=== PATIENT | male | born 1970 | race Caucasian/White ===

== ENCOUNTER 2016-05-18 00:42 | Emergency (ER) | payer OTHER ==
[2016-05-18 00:46] VITALS: BP 196/106; PULSE 77; RESP 18; TEMP 97.7
[2016-05-18] MEDS ORDERED: SODIUM CHLORIDE 0.9% 1,000 ML IV STA (00:55)
[2016-05-18] MEDS ORDERED: KETOROLAC 30 MG/ML 1 ML VIAL IVP STA (00:56)
--- NOTE | 2016-05-18 01:00 | ED ---
Abdominal Pain HPI - General Chief Complaint: Abdominal Pain Stated Complaint: Back/Groin Pain Time Seen by Provider: 05/18/16 00:51 Source: patient, RN notes reviewed Mode of arrival: wheelchair Limitations: no limitations - History of Present Illness Initial Comments: 45-year-old male presents emergency Department chief complaint low back pain, groin pain. Patient states that this started one day ago. He denies any trauma. He states that rest is make it feel better and worse with movement Patient states that he primarily has left lower back pain, left leg pain. Patient states is his upper groin, abdominal region. Patient denies any diarrhea constipation. Denies any nausea vomiting. Patient states she does have some dysuria and difficulty urinating. He states that he is unsure be has a history of kidney stones. He has not taken anything for the pain. Dates she' s had no abdominal surgeries. He denies any trauma to his back. Denies any bowel bladder incontinence or retention. - Related Data Home Medications Medication Instructions Recorded Confirmed Amitriptyline HCl [Elavil] 50 mg PO HS 11/19/13 05/18/16 Lisinopril [Zestril] 40 mg PO DAILY 11/19/13 05/18/16 Gabapentin [Neurontin] 600 mg PO QID 10/05/15 05/18/16 Furosemide [Lasix] 20 mg PO DAILY PRN 01/17/16 05/18/16 Previous Rx's Medication Instructions Recorded traMADol HCl [Ultram] 50 mg PO Q6H PRN #20 tab 05/18/16 Allergies Allergy/AdvReac Type Severity Reaction Status Date / Time ibuprofen [From Motrin] AdvReac Nausea & Verified 05/18/16 00:46 Vomiting simvastatin [From Zocor] AdvReac Dizziness Verified 05/18/16 00:46 Review of Systems ROS Statement: Those systems with pertinent positive or pertinent negative responses have been documented in the HPI. ROS Other: All systems not noted in ROS Statement are negative. Past Medical History Past Medical History: Atrial Fibrillation, Hyperlipidemia, Hypertension Additional Past Medical History / Comment(s): neuropathy, MIGRAINES, sciatica, hernia, back pain, sleep disorder, kidney stones History of Any Multi-Drug Resistant Organisms: None Reported Past Surgical History: Orthopedic Surgery Additional Past Surgical History / Comment(s): shoulder sx x2 rotator cuff repair Past Anesthesia/Blood Transfusion Reactions: No Reported Reaction Past Psychological History: No Psychological Hx Reported Smoking Status: Current every day smoker Past Alcohol Use History: None Reported Additional Past Alcohol Use History / Comment(s): started smoking at age 15- smokes 1 ppd Past Drug Use History: Marijuana - Past Family History Father Family Medical History: Myocardial Infarction ([place]) Additional Family Medical History / Comment(s): mi at age 35, still living Mother Family Medical History: Myocardial Infarction ([place] Additional Family Medical History / Comment(s): 2-3 mi, still living General Exam Limitations: no limitations General appearance: alert, in no apparent distress ENT exam: Present: mucous membranes moist Neck exam: Present: normal inspection, full ROM. Absent: tenderness, meningismus, lymphadenopathy Respiratory exam: Present: normal lung sounds bilaterally. Absent: respiratory distress, wheezes, rales, rhonchi, stridor Cardiovascular Exam: Present: regular rate, normal rhythm, normal heart sounds. Absent: systolic murmur, diastolic murmur, rubs, gallop, clicks GI/Abdominal exam: Present: soft, tenderness ([id number] lower abdominal tenderness), normal bowel sounds. Absent: distended, guarding, rebound, rigid Back exam: Present: full ROM, tenderness, CVA tenderness (L), paraspinal tenderness. Absent: CVA tenderness (R), vertebral tenderness Neurological exam: Present: alert, oriented X3, CN II-XII intact, reflexes normal. Absent: motor sensory deficit Skin exam: Present: warm, dry, intact, normal color. Absent: rash Course Vital Signs 05/18/16 00:44 Temperature 97.7 F Pulse Rate 77 Respiratory 18 Rate Blood Pressure 196/106 O2 Sat by Pulse 100 Oximetry Medical Decision Making - Medical Decision Making 45-year-old male presented for back pain, problems urinating. Patient lab work , x-ray within normal limits. Patient has urinated without difficulty. There is no signs of urinary tract infection. We discussed about possible prostate enlargement in that he needs to follow-up with his primary care physician for further testing. Patient's back pain is most likely mechanical in nature. Patient we discharged with pain medication and follow-up. Return parameters were discussed. He has no red flag symptoms. - Lab Data Result diagrams: 05/18/16 01:20 05/18/16 01:20 Lab Results 05/18/16 05/18/16 05/18/16 Range/Units 01:20 01:20 01:30 WBC 9.0 (3.8-10.6) k/uL RBC 5.00 (4.30-5.90) m/uL Hgb 15.5 (13.0-17.5) gm/dL Hct 45.0 (39.0-53.0) % MCV 90.2 (80.0-100.0) fL MCH 31.0 (25.0-35.0) pg MCHC 34.4 (31.0-37.0) g/dL RDW 13.2 (11.5-15.5) % Plt Count 185 (150-450) k/uL Neutrophils % 76 % Lymphocytes % 16 % Monocytes % 6 % Eosinophils % 1 % Basophils % 1 % Neutrophils # 6.8 (1.3-7.7) k/uL Lymphocytes # 1.4 (1.0-4.8) k/uL Monocytes # 0.5 (0-1.0) k/uL Eosinophils # 0.1 (0-0.7) k/uL Basophils # 0.0 (0-0.2) k/uL Sodium 141 (137-145) mmol/L Potassium 3.9 (3.5-5.1) mmol/L Chloride 106 (98-107) mmol/L Carbon Dioxide 24 (22-30) mmol/L Anion Gap 11 mmol/L BUN 6 L (9-20) mg/dL Creatinine 0.60 L (0.66-1.25) mg/dL Est GFR (MDRD) Af Amer >60 (>60 ml/min/1.73 sqM) Est GFR (MDRD) Non-Af >60 (>60 ml/min/1.73 sqM) Glucose 106 H (74-99) mg/dL Calcium 9.6 (8.4-10.2) mg/dL Total Bilirubin 0.7 (0.2-1.3) mg/dL AST 31 (17-59) U/L ALT 40 (21-72) U/L Alkaline Phosphatase 72 (38-126) U/L Total Protein 7.1 (6.3-8.2) g/dL Albumin 4.4 (3.5-5.0) g/dL Amylase 39 (30-110) U/L Lipase 45 (23-300) U/L Urine Color Yellow Urine Appearance Cloudy (Clear) Urine pH 7.5 (5.0-8.0) Ur Specific Nice 1.013 (1.001-1.035) Urine Protein Negative (Negative) Urine Glucose (UA) Negative (Negative) Urine Ketones Negative (Negative) Urine Blood Negative (Negative) Urine Nitrate Negative (Negative) Urine Bilirubin Negative (Negative) Urine Urobilinogen <2.0 (<2.0) mg/dL Ur Leukocyte Esterase Negative (Negative) Urine WBC 2 (0-5) /hpf Ur Squamous Epith Cells <1 (0-4) /hpf Amorphous Sediment Few H (None) /hpf Urine Mucus Occasional H (None) /hpf Disposition Clinical Impression: Back pain Disposition: HOME SELF-CARE Condition: Stable Instructions: Back Pain (ED) Additional Instructions: Please return to the Emergency Department if symptoms worsen or any other concerns. Prescriptions: traMADol HCl [Ultram] 50 mg PO Q6H PRN #20 tab PRN Reason: Pain Time of Disposition: 02:04
[2016-05-18 01:33] LABS: Basophils % (A) 1 %; CH 32.3; Eosinophils # (A) 0.1 k/uL (0-0.7); Eosinophils % (A) 1 %; HDW 2.97; HGB 15.5 gm/dL (13.0-17.5); Luc # (Auto) 0.09; Luc % (Auto) 1; Lymphocytes # (A) 1.4 k/uL (1.0-4.8); Lymphocytes % (A) 16 %; MCHC 34.4 g/dL (31.0-37.0); MCV 90.2 fL (80.0-100.0); Mean Platelet Volume 8.7; Monocytes # (A) 0.5 k/uL (0-1.0); Monocytes % (A) 6 %; Neutrophils # (A) 6.8 k/uL (1.3-7.7); Neutrophils % (A) 76 %; RDW 13.2 % (11.5-15.5); WBC (Perox) 9.46
[2016-05-18 01:43] LABS: ALT 40 U/L (21-72); AST 31 U/L (17-59); Alkaline Phosphatase 72 U/L (38-126); Amylase 39 U/L (30-110); Anion Gap 11 mmol/L; Blood Urea Nitrogen 6 mg/dL (9-20); Calcium 9.6 mg/dL (8.4-10.2); Carbon Dioxide 24 mmol/L (22-30); Chloride 106 mmol/L (98-107); Glucose 106 mg/dL (74-99); Non-African American GFR(MDRD) >60 (>60 ml/min/1.73 sqM); Sodium 141 mmol/L (137-145); Total Bilirubin 0.7 mg/dL (0.2-1.3); Total Protein 7.1 g/dL (6.3-8.2)
[2016-05-18 01:47] LABS: Potassium 3.9 mmol/L (3.5-5.1)
--- NOTE | 2016-05-18 01:48 | XR ---
EXAMINATION TYPE: XR KUB DATE OF EXAM: 05/18/2016 1:39 AM COMPARISON: 10/05/2015 HISTORY: Kidney stones. Flank pain TECHNIQUE: 2 views FINDINGS: Bowel gas pattern is normal. There is no sign of intestinal obstruction or pneumoperitoneum . Fecal pattern is normal. There is no sign of a mass. Lung bases are clear. IMPRESSION: Nonacute abdomen. No change.
[2016-05-18 01:56] LABS: Amorphous Sediment,Urine Few /hpf; Appearance,Urine Cloudy (Clear); Bilirubin,Urine Negative (Negative); Glucose,Urine (UA) Negative (Negative); Ketones,Urine Negative (Negative); Leukocyte Esterase,Urine Negative (Negative); Mucus,Urine Occasional /hpf; Nitrite,Urine Negative (Negative); PH, Urine 7.5 (5.0-8.0); Particle Count 31877; Protein,Urine Negative (Negative); Specific Gravity,Urine 1.013 (1.001-1.035); Squamous Epithelial Cell,Urine <1 /hpf (0-4); UA Billing (MACRO vs. MICRO) MICRO; Urobilinogen,Urine <2.0 mg/dL (<2.0); WBC,Urine 2 /hpf (0-5)
== END 2016-05-18 02:12 | disposition home or self-care (01) ==
LOC: EC 00:42
DX: M54.5 Low back pain (principal); R10.30 Lower abdominal pain, unspecified; R30.0 Dysuria; I10 Essential (primary) hypertension; G43.909 Migraine, unspecified, not intractable, without status migrainosus; G62.9 Polyneuropathy, unspecified; F17.200 Nicotine dependence, unspecified, uncomplicated; Z79.899 Other long term (current) drug therapy
CPT/HCPCS: 36415; 80053; 82150; 83690; 85025; 81001; 74000; 99284; 96374; J1885

== ENCOUNTER 2016-12-25 23:27 | Emergency (ER) | payer OTHER ==
[2016-12-25 23:46] VITALS: RESP 16
--- NOTE | 2016-12-25 23:49 | ED ---
General Adult HPI - General Chief complaint: Fall Stated complaint: L Knee Pain Time Seen by Provider: 12/25/16 23:40 Source: patient, RN notes reviewed Mode of arrival: wheelchair Limitations: physical limitation - History of Present Illness Initial comments: Patient 46-year-old male who presents emergency room today with a chief complaint of an injury to the left knee that occurred 2 days ago. Does admit that he tripped going up the stairs landing on the left. Does admit to some pain to the anterior aspect. He denies any other complaints or injuries. States she's tried Tylenol Motrin with little relief the symptoms. States worse with movements. Patient denies any recent fever, chills, shortness of breath, chest pain, back pain, abdominal pain, nausea or vomiting, numbness or tingling, dysuria or hematuria, constipation or diarrhea, headaches or visual changes, or any other complaints. - Related Data Home Medications Medication Instructions Recorded Confirmed Amitriptyline HCl [Elavil] 50 mg PO HS 11/19/13 05/18/16 Lisinopril [Zestril] 40 mg PO DAILY 11/19/13 05/18/16 Gabapentin [Neurontin] 600 mg PO QID 10/05/15 05/18/16 Furosemide [Lasix] 20 mg PO DAILY PRN 01/17/16 05/18/16 Previous Rx's Medication Instructions Recorded traMADol HCl [Ultram] 50 mg PO Q6H PRN #20 tab 05/18/16 Naproxen 500 mg PO BID #20 tablet 12/26/16 Allergies Allergy/AdvReac Type Severity Reaction Status Date / Time ibuprofen [From Motrin] AdvReac Nausea & Verified 05/18/16 00:46 Vomiting simvastatin [From Zocor] AdvReac Dizziness Verified 05/18/16 00:46 Review of Systems ROS Statement: Those systems with pertinent positive or pertinent negative responses have been documented in the HPI. ROS Other: All systems not noted in ROS Statement are negative. Past Medical History Past Medical History: Atrial Fibrillation, Hyperlipidemia, Hypertension Additional Past Medical History / Comment(s): neuropathy, MIGRAINES, sciatica, hernia, back pain, sleep disorder, kidney stones History of Any Multi-Drug Resistant Organisms: None Reported Past Surgical History: Orthopedic Surgery Additional Past Surgical History / Comment(s): shoulder sx x2 rotator cuff repair Past Anesthesia/Blood Transfusion Reactions: No Reported Reaction Past Psychological History: No Psychological Hx Reported Smoking Status: Current every day smoker Past Alcohol Use History: None Reported Past Drug Use History: None Reported - Past Family History Father Family Medical History: Myocardial Infarction ([place]) Additional Family Medical History / Comment(s): mi at age 35, still living Mother Family Medical History: Myocardial Infarction ([place]) Additional Family Medical History / Comment(s): 2-3 mi, still living General Exam - General Exam Comments Initial Comments: General: The patient is awake and alert, in no distress, and does not appear acutely ill. Neck: The neck is supple, there is no tenderness or JVD. Cardiovascular: There is a regular rate and rhythm. No murmur, rub or gallop is appreciated. Respiratory: Lungs are clear to auscultation, respirations are non-labored, breath sounds are equal. No wheezes, stridor, rales, or rhonchi. Musculoskeletal: Normal appearance of the left knee no obvious deformity. Shows good range of motion both flexion and extension. Sensations are intact pulses equal bilaterally 2+. Strength is 5/5. Tender over the patella and lateral aspect. Mild tenderness with a varus stress. Negative valgus. Neurological: A&O x 3. CN II-XII intact, There are no obvious motor or sensory deficits. Coordination appears grossly intact. Speech is normal. Skin: Skin is warm and dry and no rashes or lesions are noted. Psychiatric: Normal mood and affect. Limitations: physical limitation Course Vital Signs 12/25/16 23:38 Temperature 98.4 F Pulse Rate 76 Respiratory 16 Rate Blood Pressure 158/103 O2 Sat by Pulse 96 Oximetry Medical Decision Making - Medical Decision Making X-rays reviewed negative for any acute fracture dislocation. Results were discussed with patient. He does admit he is been using Motrin at home even though is listed as an ALLERGY. States does give him some acid reflux. Patient will given Toradol shot here in the emergency room states had this before. Patient will be discharged home with a knee immobilizer and advised follow-up with orthopedics for further evaluation. Patient will be given a prescription for naproxen patient advised return for any other concerns. Disposition Clinical Impression: Knee injury Disposition: HOME SELF-CARE Condition: Good Instructions: Knee Pain (ED) Additional Instructions: Please use knee immobilizer when up and moving around. Please do not sleep with it on. Please use crutches with weightbearing as tolerated. Please follow -up with orthopedics over the next 3-5 days. Please continue to ice elevate and use pain medication as prescribed. Please return for any other concerns. Prescriptions: Naproxen 500 mg PO BID #20 tablet Referrals: Raquel Joyce MD [Primary Care Provider] - 1-2 days Chris Melendez MD [STAFF PHYSICIAN] - 1-2 days Time of Disposition: 00:47
--- NOTE | 2016-12-26 00:40 | XR ---
EXAM: XR Left Knee, 3 views CLINICAL HISTORY: Pain TECHNIQUE: Three views of the left knee. COMPARISON: No relevant prior studies available. FINDINGS: Bones/joints: Unremarkable. No acute fracture. No dislocation. Soft tissues: Mild soft tissue edema noted about the medial knee, which may be posttraumatic. IMPRESSION: Mild soft tissue edema noted about the medial knee, which may be posttraumatic. Clinical correlation is advised.
[2016-12-26] MEDS ORDERED: KETOROLAC 60 MG/2 ML VIAL IM STA (00:44)
[2016-12-26 01:32] VITALS: BP 118/60; PULSE 66; TEMP 98
== END 2016-12-26 01:23 | disposition home or self-care (01) ==
LOC: EC 23:27
DX: S89.92XA Unspecified injury of left lower leg, initial encounter (principal); M25.562 Pain in left knee; I10 Essential (primary) hypertension; I48.91 Unspecified atrial fibrillation; G62.9 Polyneuropathy, unspecified; F17.200 Nicotine dependence, unspecified, uncomplicated; Z79.899 Other long term (current) drug therapy; Z88.6 Allergy status to analgesic agent; Z88.8 Allergy status to other drugs, medicaments and biological substances; W01.0XXA Fall on same level from slipping, tripping and stumbling without subsequent striking against object, initial encounter; Y93.89 Activity, other specified
CPT/HCPCS: 73564; 99283; 96372; L1830; J1885

== ENCOUNTER 2017-06-11 16:57 | Emergency (ER) | payer OTHER ==
[2017-06-11 17:46] VITALS: BP 185/99; PULSE 83; RESP 18; TEMP 98.5
--- NOTE | 2017-06-11 18:15 | ED ---
General Adult HPI - General Chief complaint: Extremity Problem,Nontraumatic Stated complaint: Infected Toe, swelling and bleeding Time Seen by Provider: 06/11/17 18:02 Source: patient, RN notes reviewed Mode of arrival: ambulatory Limitations: no limitations - History of Present Illness Initial comments: 47-year-old male presents emergency department with a chief complaint of right big toe pain. Patient states that this is not last few days. He states he was doing a lot of pus and drainage cannot is feeling better but still noticed the redness that he should be seen. There's been no fever chills. He is able to family. He admits to a history of these in the past. He denies any cough cold runny nose. 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 He states this happens often him. Patient states is not currently having any other symptoms at this time. Patient denies any recent fever, chills, shortness of breath, chest pain, back pain, abdominal pain, nausea vomiting, numbness or tingling, dysuria or hematuria, constipation or diarrhea, headaches or visual changes, or any other current symptoms. - Related Data Home Medications Medication Instructions Recorded Confirmed Amitriptyline HCl [Elavil] 50 mg PO HS 11/19/13 05/18/16 Lisinopril [Zestril] 40 mg PO DAILY 11/19/13 05/18/16 Gabapentin [Neurontin] 600 mg PO QID 10/05/15 05/18/16 Furosemide [Lasix] 20 mg PO DAILY PRN 01/17/16 05/18/16 Previous Rx's Medication Instructions Recorded traMADol HCl [Ultram] 50 mg PO Q6H PRN #20 tab 05/18/16 Naproxen 500 mg PO BID #20 tablet 12/26/16 Cephalexin [Keflex] 500 mg PO Q6HR #40 cap 06/11/17 Sulfamethox-Tmp 800-160Mg [Bactrim 2 each PO Q12HR #56 tab 06/11/17 DS 800-160 mg] Allergies Allergy/AdvReac Type Severity Reaction Status Date / Time ibuprofen [From Motrin] AdvReac Nausea & Verified 06/11/17 17:46 Vomiting simvastatin [From Zocor] AdvReac Dizziness Verified 06/11/17 17:46 Review of Systems ROS Statement: Those systems with pertinent positive or pertinent negative responses have been documented in the HPI. ROS Other: All systems not noted in ROS Statement are negative. Past Medical History Past Medical History: Atrial Fibrillation, Hyperlipidemia, Hypertension Additional Past Medical History / Comment(s): neuropathy, MIGRAINES, sciatica, hernia, back pain, sleep disorder, kidney stones History of Any Multi-Drug Resistant Organisms: None Reported Past Surgical History: Orthopedic Surgery Additional Past Surgical History / Comment(s): shoulder sx x2 rotator cuff repair Past Anesthesia/Blood Transfusion Reactions: No Reported Reaction Past Psychological History: No Psychological Hx Reported Smoking Status: Current every day smoker Past Alcohol Use History: None Reported Past Drug Use History: Marijuana - Past Family History Father Family Medical History: Myocardial Infarction ([place]) Additional Family Medical History / Comment(s): mi at age 35, still living Mother Family Medical History: Myocardial Infarction ([place]) Additional Family Medical History / Comment(s): 2-3 mi, still living General Exam - General Exam Comments Initial Comments: General: The patient is awake and alert, in no distress, and does not appear acutely ill. Neck: The neck is supple, there is no tenderness or JVD. Cardiovascular: There is a regular rate and rhythm. No murmur, rub or gallop is appreciated. Respiratory: Lungs are clear to auscultation, respirations are non-labored, breath sounds are equal. No wheezes, stridor, rales, or rhonchi. Musculoskeletal: Sensation intact with 2+ pulses throughout the right lower extremity. Fund motion of right ankle and right foot. Patient appears to have an erythematous swollen right big toe. Does appear that his already been drained prior to arrival. We did discuss return parameters and follow-up and all questions. Patient stated the Brendan is given plan. He'll be discharged. Neurological: CN II-XII intact, There are no obvious motor or sensory deficits. Coordination appears grossly intact. Speech is normal. Skin: Skin is warm and dry and no rashes or lesions are noted. Psychiatric: Normal mood and affect. Limitations: no limitations Course Vital Signs 06/11/17 17:44 Temperature 98.5 F Pulse Rate 83 Respiratory 18 Rate Blood Pressure 185/99 O2 Sat by Pulse 100 Oximetry Medical Decision Making - Medical Decision Making 47-year-old male presents for what appears the right toe paronchyia. We did discuss halfway. We discussed follow-up return parameters all questions. Patient stated he understood he is plan. He will be discharged. Disposition Clinical Impression: Paronychia of toe of right foot Disposition: HOME SELF-CARE Condition: Stable Instructions: Paronychia (ED) Additional Instructions: Please use medication as discussed. Please follow up with family doctor if symptoms have not improved over the next two days. Please return to the emergency room if your symptoms increase or worsen or for any other concerns. Prescriptions: Cephalexin [Keflex] 500 mg PO Q6HR #40 cap Sulfamethox-Tmp 800-160Mg [Bactrim DS 800-160 mg] 2 each PO Q12HR #56 tab Referrals: Farhana Santo MD [REFERRING] - 1-2 days Time of Disposition: 18:14
== END 2017-06-11 18:19 | disposition home or self-care (01) ==
LOC: EC 16:57
DX: L03.031 Cellulitis of right toe (principal); I10 Essential (primary) hypertension; G62.9 Polyneuropathy, unspecified; F17.200 Nicotine dependence, unspecified, uncomplicated; Z79.899 Other long term (current) drug therapy; Z88.6 Allergy status to analgesic agent; Z88.8 Allergy status to other drugs, medicaments and biological substances
CPT/HCPCS: 99283

== ENCOUNTER 2017-08-25 15:29 | Observation (INO) | payer OTHER ==
[2017-08-25] MEDS ORDERED: SODIUM CHLORIDE 0.9% 1,000 ML IV STA (15:50)
[2017-08-25] MEDS ORDERED: MORPHINE SULFATE 4MG/4ML SYRG IV STA (15:50)
--- NOTE | 2017-08-25 15:53 | ED ---
General Adult HPI - General Chief complaint: Chest Pain Stated complaint: Back pain Time Seen by Provider: 08/25/17 15:46 Source: patient, family, RN notes reviewed Mode of arrival: ambulatory Limitations: no limitations - History of Present Illness Initial comments: Patient is a pleasant 47-year-old male presenting to the emergency Department with complaints of upper back and chest discomfort. Onset of symptoms was when he awoke this morning. Patient does have a history of back discomfort in the same region previously several times however it is not a common thing for him. Patient states it is never gone to the chest before. Discomfort feels stabbing. Discomfort of the back is constant however only goes to the chest when symptoms worsened. Symptoms are positional. Patient does not feel short of breath. No fever. No incontinence or retention of bowel or bladder. Patient does have a history of chronic lower back pain. - Related Data Home Medications Medication Instructions Recorded Confirmed Aspirin EC [Ecotrin Low Dose] 81 mg PO DAILY 08/25/17 08/25/17 Gabapentin [Neurontin] 600 mg PO TID 08/25/17 08/25/17 Lisinopril [Zestril] 20 mg PO DAILY 08/25/17 08/25/17 amLODIPine [Norvasc] 5 mg PO DAILY 08/25/17 08/25/17 Allergies Allergy/AdvReac Type Severity Reaction Status Date / Time ibuprofen [From Motrin] AdvReac Nausea & Verified 08/25/17 16:40 Vomiting simvastatin [From Zocor] AdvReac Dizziness Verified 08/25/17 16:40 Review of Systems ROS Statement: Those systems with pertinent positive or pertinent negative responses have been documented in the HPI. ROS Other: All systems not noted in ROS Statement are negative. Constitutional: Denies: fever Eyes: Denies: eye pain ENT: Denies: ear pain Respiratory: Denies: cough, dyspnea Cardiovascular: Reports: chest pain Endocrine: Denies: fatigue Gastrointestinal: Denies: abdominal pain Genitourinary: Denies: dysuria Musculoskeletal: Reports: back pain Skin: Denies: rash Neurological: Denies: weakness Past Medical History Past Medical History: Atrial Fibrillation, Hyperlipidemia, Hypertension Additional Past Medical History / Comment(s): neuropathy, MIGRAINES, sciatica, hernia, back pain, sleep disorder, kidney stones History of Any Multi-Drug Resistant Organisms: None Reported Past Surgical History: Orthopedic Surgery Additional Past Surgical History / Comment(s): shoulder sx x2 rotator cuff repair Past Anesthesia/Blood Transfusion Reactions: No Reported Reaction Past Psychological History: No Psychological Hx Reported Smoking Status: Current every day smoker Past Alcohol Use History: None Reported Past Drug Use History: Marijuana - Past Family History Father Family Medical History: Myocardial Infarction ([place]) Additional Family Medical History / Comment(s): mi at age 35, still living Mother Family Medical History: Myocardial Infarction ([place]) Additional Family Medical History / Comment(s): 2-3 mi, still living General Exam Limitations: no limitations General appearance: alert, in no apparent distress Head exam: Present: atraumatic Eye exam: Present: normal appearance, PERRL ENT exam: Present: normal oropharynx Neck exam: Present: normal inspection Respiratory exam: Present: normal lung sounds bilaterally. Absent: chest wall tenderness Cardiovascular Exam: Present: regular rate, normal rhythm Expanded Peripheral pulses: 2+: Radial (R), Radial (L), Posterior Tibialis (R), Posterior Tibialis (L) GI/Abdominal exam: Present: soft. Absent: tenderness Extremities exam: Present: normal inspection. Absent: pedal edema, calf tenderness Back exam: Present: tenderness (Patient does have tenderness in the mid thoracic region approximately T6 through T9. No specific vertebral tenderness.) Neurological exam: Present: alert. Absent: motor sensory deficit Psychiatric exam: Present: normal affect, normal mood Skin exam: Present: normal color Course Vital Signs 08/25/17 08/25/17 15:32 16:40 Temperature 98 F Pulse Rate 78 88 Respiratory 18 16 Rate Blood Pressure 186/116 159/106 O2 Sat by Pulse 99 100 Oximetry EKG Findings - EKG Comments: EKG Findings:: Normal sinus rhythm 98. LA 154. QRS 84. QT 356. QTc 454. Normal axis. LVH criteria. No acute ST change. Medical Decision Making - Medical Decision Making Patient reevaluated and only somewhat improved. Case discussed with Dr. pennington , who will admit for Dr. Richardson. He is aware of computed tomography scan been ordered. - Lab Data Result diagrams: 08/25/17 16:00 08/25/17 16:00 Lab Results 08/25/17 08/25/17 08/25/17 Range/Units 16:00 16:00 16:00 WBC 6.8 (3.8-10.6) k/uL RBC 5.15 (4.30-5.90) m/uL Hgb 15.8 (13.0-17.5) gm/dL Hct 44.0 (39.0-53.0) % MCV 85.3 (80.0-100.0) fL MCH 30.7 (25.0-35.0) pg MCHC 36.0 (31.0-37.0) g/dL RDW 13.3 (11.5-15.5) % Plt Count 237 (150-450) k/uL Neutrophils % 66 % Lymphocytes % 22 % Monocytes % 7 % Eosinophils % 3 % Basophils % 0 % Neutrophils # 4.5 (1.3-7.7) k/uL Lymphocytes # 1.5 (1.0-4.8) k/uL Monocytes # 0.5 (0-1.0) k/uL Eosinophils # 0.2 (0-0.7) k/uL Basophils # 0.0 (0-0.2) k/uL PT (9.0-12.0) sec INR (<1.2) APTT (22.0-30.0) sec D-Dimer (<0.60) mg/L FEU Sodium 142 (137-145) mmol/L Potassium 4.1 (3.5-5.1) mmol/L Chloride 107 (98-107) mmol/L Carbon Dioxide 22 (22-30) mmol/L Anion Gap 13 mmol/L BUN 11 (9-20) mg/dL Creatinine 0.63 L (0.66-1.25) mg/dL Est GFR (CKD-EPI)AfAm >90 (>60 ml/min/1.73 sqM) Est GFR (CKD-EPI)NonAf >90 (>60 ml/min/1.73 sqM) Glucose 94 (74-99) mg/dL Calcium 9.4 (8.4-10.2) mg/dL Magnesium 1.9 (1.6-2.3) mg/dL Total Bilirubin 0.8 (0.2-1.3) mg/dL AST 24 (17-59) U/L ALT 32 (21-72) U/L Alkaline Phosphatase 68 (38-126) U/L Total Creatine Kinase 85 (55-170) U/L CK-MB (CK-2) 0.6 (0.0-2.4) ng/mL CK-MB (CK-2) Rel Index 0.7 Troponin I <0.012 (0.000-0.034) ng/mL Total Protein 7.0 (6.3-8.2) g/dL Albumin 4.3 (3.5-5.0) g/dL 08/25/17 Range/Units 16:00 WBC (3.8-10.6) k/uL RBC (4.30-5.90) m/uL Hgb (13.0-17.5) gm/dL Hct (39.0-53.0) % MCV (80.0-100.0) fL MCH (25.0-35.0) pg MCHC (31.0-37.0) g/dL RDW (11.5-15.5) % Plt Count (150-450) k/uL Neutrophils % % Lymphocytes % % Monocytes % % Eosinophils % % Basophils % % Neutrophils # (1.3-7.7) k/uL Lymphocytes # (1.0-4.8) k/uL Monocytes # (0-1.0) k/uL Eosinophils # (0-0.7) k/uL Basophils # (0-0.2) k/uL PT 10.3 (9.0-12.0) sec INR 1.1 (<1.2) APTT 23.8 (22.0-30.0) sec D-Dimer 0.17 (<0.60) mg/L FEU Sodium (137-145) mmol/L Potassium (3.5-5.1) mmol/L Chloride (98-107) mmol/L Carbon Dioxide (22-30) mmol/L Anion Gap mmol/L BUN (9-20) mg/dL Creatinine (0.66-1.25) mg/dL Est GFR (CKD-EPI)AfAm (>60 ml/min/1.73 sqM) Est GFR (CKD-EPI)NonAf (>60 ml/min/1.73 sqM) Glucose (74-99) mg/dL Calcium (8.4-10.2) mg/dL Magnesium (1.6-2.3) mg/dL Total Bilirubin (0.2-1.3) mg/dL AST (17-59) U/L ALT (21-72) U/L Alkaline Phosphatase (38-126) U/L Total Creatine Kinase (55-170) U/L CK-MB (CK-2) (0.0-2.4) ng/mL CK-MB (CK-2) Rel Index Troponin I (0.000-0.034) ng/mL Total Protein (6.3-8.2) g/dL Albumin (3.5-5.0) g/dL - Radiology Data Radiology results: image reviewed (Chest x-ray shows no acute process) Disposition Clinical Impression: Chest pain, Back pain Disposition: ADMITTED IP TO THIS HOSP Is patient prescribed a controlled substance at d/c from ED?: No Referrals: Viktoria Richardson MD [Primary Care Provider] - 1-2 days Decision Time: 17:20
[2017-08-25 16:18] LABS: Basophils % (A) 0 %; Eosinophils # (A) 0.2 k/uL (0-0.7); Eosinophils % (A) 3 %; HGB 15.8 gm/dL (13.0-17.5); Lymphocytes # (A) 1.5 k/uL (1.0-4.8); Lymphocytes % (A) 22 %; MCH 30.7 pg (25.0-35.0); MCV 85.3 fL (80.0-100.0); Monocytes # (A) 0.5 k/uL (0-1.0); Monocytes % (A) 7 %; Neutrophils # (A) 4.5 k/uL (1.3-7.7); Neutrophils % (A) 66 %; Platelet Count 237 k/uL (150-450); RBC 5.15 m/uL (4.30-5.90); RDW 13.3 % (11.5-15.5); WBC 6.8 k/uL (3.8-10.6)
--- NOTE | 2017-08-25 16:31 | XR ---
EXAMINATION TYPE: XR chest 2V DATE OF EXAM: 08/25/2017 COMPARISON: 01/28/2016 HISTORY: Chest pain TECHNIQUE: Frontal and lateral views of the chest are obtained. FINDINGS: There is no focal air space opacity. No evidence for pneumothorax. No pleural effusion. The cardiac silhouette size is within normal limits. The osseous structures are grossly intact. IMPRESSION: 1. No acute cardiopulmonary process.
[2017-08-25 16:33] LABS: ALT 32 U/L (21-72); AST 24 U/L (17-59); Albumin 4.3 g/dL (3.5-5.0); Alkaline Phosphatase 68 U/L (38-126); Anion Gap 13 mmol/L; Blood Urea Nitrogen 11 mg/dL (9-20); Calcium 9.4 mg/dL (8.4-10.2); Carbon Dioxide 22 mmol/L (22-30); Chloride 107 mmol/L (98-107); Glucose 94 mg/dL (74-99); Magnesium 1.9 mg/dL (1.6-2.3); Potassium 4.1 mmol/L (3.5-5.1); Sodium 142 mmol/L (137-145); Total Bilirubin 0.8 mg/dL (0.2-1.3)
[2017-08-25 16:43] LABS: Creatine Kinase 85 U/L (55-170)
[2017-08-25 16:56] LABS: Troponin I <0.012 ng/mL (0.000-0.034)
[2017-08-25 17:09] LABS: Creatine Kinase MB 0.6 ng/mL (0.0-2.4); D-Dimer 0.17 mg/L FEU (<0.60); INR 1.1 (<1.2); Partial Thromboplastin Time 23.8 sec (22.0-30.0); Prothrombin Time 10.3 sec (9.0-12.0)
[2017-08-25] MEDS ORDERED: LABETALOL 5 MG/ML VIAL MDV IVP STA (17:09)
[2017-08-25] MEDS ORDERED: ORPHENADRINE 30 MG/ML 2 ML VIAL IVP STA (17:14)
[2017-08-25] MEDS ORDERED: RX INFO: IV CONTRAST WAS GIVEN 1 EACH MISC MISCELLANE PRN (17:19)
[2017-08-25] MEDS ORDERED: ASPIRIN 81 MG PO STA (17:20)
[2017-08-25] MEDS ORDERED: NITROGLYCERIN SL TABS 0.4 MG TAB SUBLINGUAL PRN (17:20)
[2017-08-25] MEDS ORDERED: ACETAMINOPHEN TAB 325 MG TAB PO PRN (17:57)
[2017-08-25] MEDS ORDERED: NALOXONE 0.4 MG/ML 1 ML VIAL IV PRN (17:57)
--- NOTE | 2017-08-25 18:01 | CT ---
EXAMINATION TYPE: CT angio thoracic/abd aorta DATE OF EXAM: 08/25/2017 COMPARISON: To 716 HISTORY: Back pain that radiates into chest CT DLP: 1327.6 mGycm CONTRAST: CTA thoracic and abdominal aorta with 3-D reconstruction is performed and with IV Contrast, patient i njected with 100 mL of Isovue 370. Contrast CTA of the thoracic and abdominal aorta was performed from the lung apex through the base of the pelvis. 3-D reconstruction imaging obtained at a separate workstation. CT Chest: THORACIC AORTA: There is no evidence for aneurysm. No dissection or mediastinal hematoma. Mild ath eromatous changes are seen. LUNGS: The lungs are clear and free of infiltrate. Mild right basilar atelectasis. No pulmonary nodul e or mass is detected. No pleural effusion or CT evidence of interstitial lung disease. MEDIASTINUM: The heart is not enlarged. No evidence for mediastinal mass or adenopathy. HILAR STRUCTURES: No evidence for mass. No hilar adenopathy is appreciated. OTHER: No significant abnormality. CONTRAST CT ABDOMEN AND PELVIS ABDOMINAL AORTA: No evidence for abdominal aortic aneurysm. No dissection. Iliac vessels are symmet lisa and patent. LIVER/GB- No significant abnormality is seen. PANCREAS- No significant abnormality is seen. SPLEEN- No significant abnormality is seen. ADRENALS- No significant abnormality is seen. KIDNEYS/BLADDER-nonobstructing left-sided renal calculus.. BOWEL- No Significant abnormality GENITAL ORGANS: No gross abnormality seen. LYMPH NODES- No greater than 1cm abdominal or pelvic lymph nodes areappreciated. OSSEOUS STRUCTURES- No significant abnormality is seen. OTHER- No significant abnormality is seen. IMPRESSION- No significant abnormality is seen.
--- NOTE | 2017-08-25 18:14 | P.HPIM ---
History of Present Illness H&P Date: 08/25/17 Chief Complaint: Upper back pain with radiation to chest Patient is a 47-year-old male chronic every day smoker with a medical history significant for uncontrolled hypertension, atrial fibrillation not on any rate controlling medications, and chronic low back pain who presented to the ED with a one-day history of upper back pain with radiation to chest. Patient states that yesterday he did feel some slight upper back pain, however when he woke up this morning had sharp stabbing back pain that radiated through the chest to anterior chest pain, states he feels it originates in between his shoulder blades in his back. Patient states it is worse with certain twisting movements and deep inspiration, improved by laying on his side. No prior similar history of upper back pain like this. In the ED, found to have uncontrolled hypertension systolic in the 180s. Initial troponin negative. No ECG changes. [facility] did order CT angiogram however placed in observation before resulted. Review of Systems CONSTITUTIONAL: No weight loss, fever, chills, weakness or fatigue. HEENT: Eyes: No visual loss, blurred vision, double vision or yellow sclerae. Ears, Nose, Throat: No hearing loss, sneezing, congestion, runny nose or sore throat. SKIN: No rash or itching. CARDIOVASCULAR: See HPI RESPIRATORY: No shortness of breath, cough or sputum. Positive for pleuritic chest pain GASTROINTESTINAL: No anorexia, nausea, vomiting or diarrhea. No abdominal pain or blood. GENITOURINARY: No burning on urination. No change in frequency. No change in stream. NEUROLOGICAL: No headache, dizziness, syncope, paralysis, ataxia, numbness or tingling in the extremities. No change in bowel or bladder control. MUSCULOSKELETAL: No muscle, back pain, joint pain or stiffness. HEMATOLOGIC: No anemia, bleeding or bruising. PSYCHIATRIC: No history of depression or anxiety. ENDOCRINOLOGIC: No reports of sweating, cold or heat intolerance. No polyuria or polydipsia. ALLERGIES: No history of asthma, hives, eczema or rhinitis. Past Medical History Past Medical History: Atrial Fibrillation, Hyperlipidemia, Hypertension Additional Past Medical History / Comment(s): neuropathy, MIGRAINES, sciatica, hernia, back pain, sleep disorder, kidney stones History of Any Multi-Drug Resistant Organisms: None Reported Past Surgical History: Orthopedic Surgery Additional Past Surgical History / Comment(s): shoulder sx x2 rotator cuff repair Past Anesthesia/Blood Transfusion Reactions: No Reported Reaction Past Psychological History: No Psychological Hx Reported Smoking Status: Current every day smoker Past Alcohol Use History: None Reported Past Drug Use History: Marijuana - Past Family History Father Family Medical History: Myocardial Infarction ([place]) Additional Family Medical History / Comment(s): mi at age 35, still living Mother Family Medical History: Myocardial Infarction ([place]) Additional Family Medical History / Comment(s): 2-3 mi, still living Medications and Allergies Home Medications Medication Instructions Recorded Confirmed Type Aspirin EC [Ecotrin Low Dose] 81 mg PO DAILY 08/25/17 08/25/17 History Gabapentin [Neurontin] 600 mg PO TID 08/25/17 08/25/17 History Lisinopril [Zestril] 20 mg PO DAILY 08/25/17 08/25/17 History amLODIPine [Norvasc] 5 mg PO DAILY 08/25/17 08/25/17 History Allergies Allergy/AdvReac Type Severity Reaction Status Date / Time ibuprofen [From Motrin] AdvReac Nausea & Verified 08/25/17 16:40 Vomiting simvastatin [From Zocor] AdvReac Dizziness Verified 08/25/17 16:40 Physical Exam Vitals: Vital Signs Temp Pulse Resp BP Pulse Ox 08/25/17 17:55 96 18 141/105 100 08/25/17 16:40 88 16 159/106 100 08/25/17 15:32 98 F 78 18 186/116 99 Intake and Output 08/25/17 08/25/17 08/25/17 06:59 14:59 22:59 Other: Weight 99.79 kg General: A/O x 3, NAD, Lying in bed comfortably HEENT: EOMI, MMM, atraumatic normocephalic Neck: Supple. No JVD, trachea midline CVS: Regular rate and rhythm. + S1/S2, no murmurs/gallops/rubs Respiratory: Bilateral air entry noted. Clear to auscultation, no wheeze, no rhonchi Abdomen: Soft, nontender, nondistended. Bowel sounds audible Extremities: No lower extremity edema. No clubbing or cyanosis Skin: No rash or skin change noted Psych: Without hallucinations, abnormal affect, or abnormal behaviors during the examination Results CBC & Chem 7: 08/25/17 16:00 08/25/17 16:00 Labs: Abnormal Lab Results - Last 24 Hours (Table) 08/25/17 Range/Units 16:00 Creatinine 0.63 L (0.66-1.25) mg/dL Thrombosis Risk Factor Assmnt - DVT/VTE Prophylaxis DVT/VTE Prophylaxis: Low risk, early ambulation encouraged Assessment and Plan (1) Hypertensive urgency Current Visit: Yes Status: Acute Code(s): I16.0 - HYPERTENSIVE URGENCY SNOMED Code(s): 727121854 (2) Back pain Current Visit: Yes Status: Acute Code(s): M54.9 - DORSALGIA, UNSPECIFIED SNOMED Code(s): 714688404 (3) Chest pain Current Visit: Yes Status: Acute Code(s): R07.9 - CHEST PAIN, UNSPECIFIED SNOMED Code(s): 88208752 Plan: Upper back pain and radiation to stabbing chest pain, worse with movement, twisting and improved with laying on side in the setting of hypertensive urgency. Concerning for possible dissection, CT angiogram done, results pending. The chest pain is pleuritic, positional, thus noncardiac in etiology. Continue with the telemetry monitoring and await the CT results. If the CT is otherwise negative, treat as musculoskeletal pain and no further cardiac workup indicated. Patient with hypertensive urgency and a history of uncontrolled hypertension, on amlodipine 5 mg and lisinopril 20 mg at home. When necessary hydralazine ordered for elevated blood pressure. Increase amlodipine to 10 mg, monitor response.
[2017-08-25] MEDS ORDERED: hydrALAZINE HCL 20 MG/ML 1 ML VIAL IVP PRN (18:16)
[2017-08-25] MEDS: HYDROcodone/APAP 5-325MG 1 EACH TAB PO PRN ×2 (18:46→22:43)
[2017-08-25 20:28] VITALS: BMI 32.4
[2017-08-25] MEDS: oxyCODONE-APAP 5-325MG 1 EACH TAB PO PRN (20:30)
[2017-08-25] MEDS: GABAPENTIN 300 MG CAP PO SCH (20:31)
[2017-08-25 22:24] LABS: Creatine Kinase 70 U/L (55-170)
[2017-08-25] MEDS ORDERED: ZOLPIDEM 5 MG TAB PO PRN (22:32)
[2017-08-25 22:35] LABS: Creatine Kinase MB 0.4 ng/mL (0.0-2.4)
[2017-08-25 22:36] LABS: Troponin I <0.012 ng/mL (0.000-0.034)
[2017-08-26] MEDS: oxyCODONE-APAP 5-325MG 1 EACH TAB PO PRN ×3 (00:54→09:27)
[2017-08-26] MEDS: HYDROcodone/APAP 5-325MG 1 EACH TAB PO PRN ×3 (02:57→12:10)
[2017-08-26 04:49] LABS: Basophils % (A) 1 %; Eosinophils # (A) 0.3 k/uL (0-0.7); Eosinophils % (A) 4 %; HCT 39.5 % (39.0-53.0); HGB 13.8 gm/dL (13.0-17.5); Lymphocytes # (A) 2.4 k/uL (1.0-4.8); Lymphocytes % (A) 32 %; MCH 30.9 pg (25.0-35.0); MCHC 34.9 g/dL (31.0-37.0); MCV 88.4 fL (80.0-100.0); Mean Platelet Volume 8.4; Monocytes # (A) 0.7 k/uL (0-1.0); Monocytes % (A) 9 %; Neutrophils # (A) 3.9 k/uL (1.3-7.7); Neutrophils % (A) 52 %; Platelet Count 205 k/uL (150-450); RBC 4.46 m/uL (4.30-5.90); RDW 13.7 % (11.5-15.5); WBC 7.6 k/uL (3.8-10.6)
[2017-08-26 05:03] LABS: Anion Gap 13 mmol/L; Blood Urea Nitrogen 11 mg/dL (9-20); Calcium 8.7 mg/dL (8.4-10.2); Carbon Dioxide 21 mmol/L (22-30); Chloride 106 mmol/L (98-107); Glucose 92 mg/dL (74-99); Potassium 3.5 mmol/L (3.5-5.1); Sodium 140 mmol/L (137-145)
[2017-08-26 05:21] LABS: Creatine Kinase 64 U/L (55-170)
[2017-08-26 05:33] LABS: Creatine Kinase MB 0.5 ng/mL (0.0-2.4); Troponin I <0.012 ng/mL (0.000-0.034)
[2017-08-26] MEDS: GABAPENTIN 300 MG CAP PO SCH (08:07)
[2017-08-26 08:36] VITALS: PULSE 65; RESP 16
[2017-08-26] MEDS ORDERED: ASPIRIN 325 MG TAB PO SCH (09:00)
[2017-08-26] MEDS ORDERED: LISINOPRIL 20 MG TAB PO SCH (09:00)
[2017-08-26] MEDS ORDERED: amLODIPine 10 MG TAB PO SCH (09:00)
[2017-08-26] MEDS ORDERED: ASPIRIN 81 MG PO SCH (09:00)
[2017-08-26 11:36] VITALS: BP 132/76; TEMP 97.9
--- NOTE | 2017-08-26 14:47 | P.DS ---
Providers Date of admission: 08/25/17 17:21 Expected date of discharge: 08/26/17 Attending physician: Ludwig Tee MD Primary care physician: Viktoria Richardson MD - Discharge Diagnosis(es) (1) Muscle spasm Current Visit: Yes Status: Acute (2) Hypertensive urgency Current Visit: Yes Status: Acute (3) HTN (hypertension) Current Visit: No Status: Acute (4) Hyperlipemia Current Visit: No Status: Acute Hospital Course: Patient is a 47-year-old male to past medical history of hypertension , A. fib not on any rate controlling medication, and chronic back pain who presented to the emergency department with complaints of back pain with radiation to his chest. On arrival to the ER he was hypertensive with a systolic blood pressure in the 180s. Initial troponin was negative and EKG was unremarkable. He was admitted to the observation unit for further monitoring. He had a CTA of the chest which showed no acute process. His telemetry and troponins remained negative. He was started on [place] and Percocet for pain. His troponins were trended and remained negative. Patient states his pain was worse with movement and better with rest and did not have any associating factors. He has a history of chronic back pain and has been on narcotic medications in the past. He has had a stress test but this was several years ago. It appears that his pain is noncardiac in origin is reproducible on palpation over his scapula. He denies any acute events leading to this such as bending, lifting, or falls. [place] monitoring [place] was checked which revealed no CONTROLLED SUBSTANCE prescriptions since May of this year. He states he was seeing pain management in the past but has not needed them in some time. He denied any recent injections. We discussed a short burst of narcotic medications along with muscle relaxers to help with his acute pain episode. I stressed to him the importance of following up with Dr. Richardson as if this does not help he will need physical therapy as narcotic medication should not be the basis of his treatment plan. We also discussed stress testing but this will be much more feasible to perform once his back pain is controlled. He'll follow-up with Dr. Richardson. His blood pressure remained under good control with increasing his Norvasc to 10 mg daily he will continue this at home. I've advised him to stay off of work until 08/30/17. He was discharged home in stable condition. Patient seen and examined at bedside. Still having back pain worse with movement and better with rest and is reproducible. He denies any overt chest pain. He is not having any shortness of breath, nausea, vomiting, or numbness and tingling. He does sometimes get sweaty when the pain is bad. Patient seen and examined at bedside. Vital signs reviewed and stable. General: non toxic, no distress, appears at stated age Derm: warm, dry Head: atraumatic, normocephalic, symmetric Eyes: EOMI, no lid lag, anicteric sclera Mouth: no lip lesion, mucus membranes moist Cardiovascular: S1S2 reg, no murmur, positive posterior tibial pulse bilateral, Lungs: CTA bilateral, no rhonchi, no rales , no accessory muscle use Abdominal: soft, nontender to palpation, no guarding, no appreciable organomegaly Ext: no gross muscle atrophy, no edema, no contractures Neuro: CN II-XI grossly intact, no focal neuro deficits Psych: Alert, oriented, appropriate affect Back: muscle spasm with increased tissue texture and boggy texture T 6 on the left pain to palpation over the area A total of 25 minutes of time were spent preparing this complex discharge summary . Plan - Discharge Summary New Discharge Prescriptions: New amLODIPine [Norvasc] 10 mg PO DAILY #30 tab Cyclobenzaprine [Flexeril] 5 mg PO TID PRN #21 tablet PRN Reason: Spasms HYDROcodone/APAP 5-325MG [[place] 5-325] 1 - 2 each PO Q4HR PRN #31 tab PRN Reason: Moderate Pain Continue Lisinopril [Zestril] 20 mg PO DAILY Gabapentin [Neurontin] 600 mg PO TID Aspirin EC [Ecotrin Low Dose] 81 mg PO DAILY Discontinued amLODIPine [Norvasc] 5 mg PO DAILY Discharge Medication List Aspirin EC [Ecotrin Low Dose] 81 mg PO DAILY 08/25/17 [History] Gabapentin [Neurontin] 600 mg PO TID 08/25/17 [History] Lisinopril [Zestril] 20 mg PO DAILY 08/25/17 [History] Cyclobenzaprine [Flexeril] 5 mg PO TID PRN #21 tablet 08/26/17 [Rx] HYDROcodone/APAP 5-325MG [[place] 5-325] 1 - 2 each PO Q4HR PRN #31 tab 08/26/17 [ Rx] amLODIPine [Norvasc] 10 mg PO DAILY #30 tab 08/26/17 [Rx] Follow up Appointment(s)/Referral(s): Viktoria Richardson MD [Primary Care Provider] - 1-2 days Activity/Diet/Wound Care/Special Instructions: hear healthy diet activity as tolerated Off work through 08/29/17 Discharge Disposition: HOME SELF-CARE
== END 2017-08-26 15:25 | disposition home or self-care (01) ==
LOC: EC 15:29 → 3OBS 17:21
PROVIDERS: ADMIT Internal Medicine; ATTEND Internal Medicine
DX: M62.838 Other muscle spasm (principal); I16.0 Hypertensive urgency; I10 Essential (primary) hypertension; E78.5 Hyperlipidemia, unspecified; M54.9 Dorsalgia, unspecified; M54.6 Pain in thoracic spine; M54.5 Low back pain; R07.89 Other chest pain; G89.29 Other chronic pain; R07.81 Pleurodynia; I48.91 Unspecified atrial fibrillation; G62.9 Polyneuropathy, unspecified; G43.909 Migraine, unspecified, not intractable, without status migrainosus; M54.30 Sciatica, unspecified side; G47.9 Sleep disorder, unspecified; F17.200 Nicotine dependence, unspecified, uncomplicated; Z87.442 Personal history of urinary calculi; Z79.899 Other long term (current) drug therapy; Z79.82 Long term (current) use of aspirin; Z88.6 Allergy status to analgesic agent; Z88.8 Allergy status to other drugs, medicaments and biological substances; Z82.49 Family history of ischemic heart disease and other diseases of the circulatory system
CPT/HCPCS: 99285 ×2; 96374 ×2; 96375 ×3; 96361 ×7; 36415; 93005; 85379; 80053; 80048; 82550 ×2; 82553 ×2; 83735; 84484 ×2; 85025 ×2; 85610; 85730; 71046; 75635; 71275; G0378 ×2; J2360; Q9967; J2270

== ENCOUNTER 2017-12-05 18:45 | Emergency (ER) | payer OTHER ==
[2017-12-05 19:26] VITALS: BP 163/83; PULSE 97; RESP 18; TEMP 98.2
[2017-12-05] MEDS ORDERED: KETOROLAC 60 MG/2 ML VIAL IM STA (19:37)
[2017-12-05] MEDS ORDERED: ORPHENADRINE 30 MG/ML 2 ML VIAL IM STA (19:38)
--- NOTE | 2017-12-05 19:45 | ED ---
General Adult HPI - General Chief complaint: Abdominal Pain Stated complaint: Abd Pain, Leg Pain Time Seen by Provider: 12/05/17 18:45 Source: patient, RN notes reviewed Mode of arrival: ambulatory Limitations: no limitations - History of Present Illness Initial comments: This is a 47-year-old male who presents emergency Department stating he's been homeless for 2 weeks and has been walking around town and now he has pain in his left hip. Patient states the pain is actually above the hip bone and it hurts when he moves his hip or bends or twists. Patient states the pain starts in the back and radiates to the distal aspect of his left flank. Patient thinks it is muscular but he has not had any direct trauma or injury to that area. Patient denies any recent fever chills. Patient denies any abdominal pain. Patient denies any central back pain. Patient denies any numbness weakness. Patient denies any radiation of the pain down his leg he states when he moves his leg that pain increases but there is actually no leg pain. Patient denies any other problems at this time except that he is hungry. - Related Data Home Medications Medication Instructions Recorded Confirmed Aspirin EC [Ecotrin Low Dose] 81 mg PO DAILY 08/25/17 08/25/17 Gabapentin [Neurontin] 600 mg PO TID 08/25/17 08/25/17 Lisinopril [Zestril] 20 mg PO DAILY 08/25/17 08/25/17 Previous Rx's Medication Instructions Recorded Cyclobenzaprine [Flexeril] 5 mg PO TID PRN #21 tablet 08/26/17 HYDROcodone/APAP 5-325MG [[place] 1 - 2 each PO Q4HR PRN #31 tab 08/26/17 5-325] amLODIPine [Norvasc] 10 mg PO DAILY #30 tab 08/26/17 Cyclobenzaprine [Flexeril] 10 mg PO TID #20 tab 12/05/17 Ibuprofen [Motrin] 600 mg PO Q6HR PRN #20 tab 12/05/17 Allergies Allergy/AdvReac Type Severity Reaction Status Date / Time ibuprofen [From Motrin] AdvReac Nausea & Verified 12/05/17 19:25 Vomiting simvastatin [From Zocor] AdvReac Dizziness Verified 12/05/17 19:25 Review of Systems ROS Statement: Those systems with pertinent positive or pertinent negative responses have been documented in the HPI. ROS Other: All systems not noted in ROS Statement are negative. Past Medical History Past Medical History: Atrial Fibrillation, Hyperlipidemia, Hypertension Additional Past Medical History / Comment(s): neuropathy, MIGRAINES, sciatica, hernia, back pain, sleep disorder, kidney stones History of Any Multi-Drug Resistant Organisms: None Reported Past Surgical History: Orthopedic Surgery Additional Past Surgical History / Comment(s): shoulder sx x2 rotator cuff repair Past Anesthesia/Blood Transfusion Reactions: No Reported Reaction Past Psychological History: No Psychological Hx Reported Smoking Status: Current every day smoker Past Alcohol Use History: None Reported Past Drug Use History: None Reported - Past Family History Father Family Medical History: Myocardial Infarction ([place]) Additional Family Medical History / Comment(s): mi at age 35, still living Mother Family Medical History: Myocardial Infarction ([place]) Additional Family Medical History / Comment(s): 2-3 mi, still living General Exam Limitations: no limitations Course Vital Signs 12/05/17 19:23 Temperature 98.2 F Pulse Rate 97 Respiratory 18 Rate Blood Pressure 163/83 O2 Sat by Pulse 99 Oximetry Medical Decision Making - Medical Decision Making Patient received a shot of Norflex and Toradol. Disposition Clinical Impression: Musculoskeletal back pain Disposition: HOME SELF-CARE Condition: Good Instructions: Musculoskeletal Pain (ED) Prescriptions: Cyclobenzaprine [Flexeril] 10 mg PO TID #20 tab Ibuprofen [Motrin] 600 mg PO Q6HR PRN #20 tab PRN Reason: For pain Is patient prescribed a controlled substance at d/c from ED?: No Referrals: Viktoria Richardson MD [Primary Care Provider] - 1-2 days Time of Disposition: 19:45
== END 2017-12-05 19:57 | disposition home or self-care (01) ==
LOC: EC 18:45
DX: M54.9 Dorsalgia, unspecified (principal); M79.605 Pain in left leg; R10.9 Unspecified abdominal pain; I10 Essential (primary) hypertension; G62.9 Polyneuropathy, unspecified; F17.200 Nicotine dependence, unspecified, uncomplicated; Z59.0 Homelessness; Z87.442 Personal history of urinary calculi; Z79.82 Long term (current) use of aspirin; Z79.899 Other long term (current) drug therapy; Z88.6 Allergy status to analgesic agent; Z88.8 Allergy status to other drugs, medicaments and biological substances
CPT/HCPCS: 99283; 96372 ×2; J2360; J1885

== ENCOUNTER 2017-12-06 02:57 | Emergency (ER) | payer OTHER ==
[2017-12-06 03:12] VITALS: TEMP 97.6
--- NOTE | 2017-12-06 04:55 | ED ---
General Adult HPI - General Chief complaint: Psychiatric Symptoms Stated complaint: Mental health Time Seen by Provider: 12/06/17 03:45 Source: patient Mode of arrival: ambulatory Limitations: no limitations - History of Present Illness Initial comments: Micky is a 47-year-old male who presents the ED today for evaluation of hallucinations. Patient reports that he is currently from his . He is currently homeless. He is currently sleeping outdoors. Patient states that he has not been sleeping well. Patient states that when he falls asleep he wakes suddenly and when he wakes he can see faces staring at him. Usually he cannot identify the face though he does report that earlier in the week he was seeing his son's face. Patient also states that he thinks he is hearing voices. Patient's concern that he is hallucinating. Patient concerned that he sleep deprived. Patient here for psychiatric evaluation. He denies any homicidal or suicidal thoughts. He denies any psychiatric history. He reports he smokes marijuana but denies any other drug or alcohol use. - Related Data Home Medications Medication Instructions Recorded Confirmed Aspirin EC [Ecotrin Low Dose] 81 mg PO DAILY 08/25/17 12/06/17 Gabapentin [Neurontin] 600 mg PO TID 08/25/17 12/06/17 Lisinopril [Zestril] 20 mg PO DAILY 08/25/17 12/06/17 Previous Rx's Medication Instructions Recorded Cyclobenzaprine [Flexeril] 5 mg PO TID PRN #21 tablet 08/26/17 HYDROcodone/APAP 5-325MG [[place] 1 - 2 each PO Q4HR PRN #31 tab 08/26/17 5-325] amLODIPine [Norvasc] 10 mg PO DAILY #30 tab 08/26/17 Cyclobenzaprine [Flexeril] 10 mg PO TID #20 tab 12/05/17 Ibuprofen [Motrin] 600 mg PO Q6HR PRN #20 tab 12/05/17 Allergies Allergy/AdvReac Type Severity Reaction Status Date / Time ibuprofen [From Motrin] AdvReac Nausea & Verified 12/06/17 03:12 Vomiting simvastatin [From Zocor] AdvReac Dizziness Verified 12/06/17 03:12 Review of Systems ROS Statement: Those systems with pertinent positive or pertinent negative responses have been documented in the HPI. ROS Other: All systems not noted in ROS Statement are negative. Past Medical History Past Medical History: Atrial Fibrillation, Hyperlipidemia, Hypertension Additional Past Medical History / Comment(s): neuropathy, MIGRAINES, sciatica, hernia, back pain, sleep disorder, kidney stones History of Any Multi-Drug Resistant Organisms: None Reported Past Surgical History: Orthopedic Surgery Additional Past Surgical History / Comment(s): shoulder sx x2 rotator cuff repair Past Anesthesia/Blood Transfusion Reactions: No Reported Reaction Past Psychological History: No Psychological Hx Reported Smoking Status: Current every day smoker Past Alcohol Use History: None Reported Past Drug Use History: None Reported - Past Family History Father Family Medical History: Myocardial Infarction ([place]) Additional Family Medical History / Comment(s): mi at age 35, still living Mother Family Medical History: Myocardial Infarction ([place]) Additional Family Medical History / Comment(s): 2-3 mi, still living General Exam Limitations: no limitations Course Vital Signs 12/06/17 03:09 Temperature 97.6 F Pulse Rate 74 Respiratory 18 Rate Blood Pressure 175/119 O2 Sat by Pulse 100 Oximetry Medical Decision Making - Medical Decision Making The patient was seen and evaluated, history is obtained from the patient. Patient currently homeless, sleep deprived, has been sleeping outdoors. Patient states he believes he's been hallucinating. Patient denies homicidal or suicidal ideation. Denies psychiatric history. Denies hallucinogenic drug use. Does admit to using marijuana regularly. This is unchanged recently. Alcohol is negative, patient was cleared for evaluation by EPS Patient sleeping comfortably in bed in the ER Patient was evaluated by EPS, they recommend discharge home Patient was given referral for outpatient resources Disposition Clinical Impression: Sleep deprivation Disposition: HOME SELF-CARE Is patient prescribed a controlled substance at d/c from ED?: No Referrals: Viktoria Richardson MD [Primary Care Provider] - 1-2 days Time of Disposition: 06:01
[2017-12-06 06:16] VITALS: BP 157/85; PULSE 82; RESP 16
== END 2017-12-06 06:17 | disposition home or self-care (01) ==
LOC: EC 02:57
DX: Z72.820 Sleep deprivation (principal); F32.9 Major depressive disorder, single episode, unspecified; F12.90 Cannabis use, unspecified, uncomplicated; R44.0 Auditory hallucinations; R44.1 Visual hallucinations; Z59.0 Homelessness; I10 Essential (primary) hypertension; G62.9 Polyneuropathy, unspecified; F17.200 Nicotine dependence, unspecified, uncomplicated; Z79.82 Long term (current) use of aspirin; Z79.899 Other long term (current) drug therapy; Z88.6 Allergy status to analgesic agent; Z88.8 Allergy status to other drugs, medicaments and biological substances; Z87.39 Personal history of other diseases of the musculoskeletal system and connective tissue
CPT/HCPCS: 82075; 99285

== ENCOUNTER 2017-12-23 18:45 | Emergency (ER) | payer OTHER ==
[2017-12-23 19:25] VITALS: RESP 18
--- NOTE | 2017-12-23 20:10 | XR ---
EXAMINATION TYPE: XR lumbar spine 2 or 3V DATE OF EXAM: 12/23/2017 COMPARISON: 06/26/2013 HISTORY: Pain TECHNIQUE: 3 views FINDINGS: Lumbar vertebra have normal alignment. Disc spaces are fairly normal. Posterior elements ar e intact. Sacroiliac joints appear normal. IMPRESSION: Negative lumbar spine exam. No significant change.
[2017-12-23] MEDS ORDERED: KETOROLAC 30 MG/ML 1 ML VIAL IM STA (20:47)
[2017-12-23] MEDS ORDERED: ORPHENADRINE 30 MG/ML 2 ML VIAL IM STA (20:47)
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
[2017-12-23 21:03] VITALS: BP 146/80; PULSE 97; TEMP 98.4
== END 2017-12-23 21:03 | disposition home or self-care (01) ==
LOC: EC 18:45
DX: S39.012A Strain of muscle, fascia and tendon of lower back, initial encounter (principal); F17.200 Nicotine dependence, unspecified, uncomplicated; Z88.6 Allergy status to analgesic agent; Z88.8 Allergy status to other drugs, medicaments and biological substances; Y04.0XXA Assault by unarmed brawl or fight, initial encounter; Y93.02 Activity, running
CPT/HCPCS: 72100; 99283; 96372 ×2; J2360; J1885

== ENCOUNTER 2018-01-10 13:33 | Emergency (ER) | payer OTHER ==
[2018-01-10] MEDS ORDERED: SODIUM CHLORIDE 0.9% 1,000 ML IV STA (14:07)
[2018-01-10] MEDS ORDERED: LORazepam 2 MG/ML INJ IV STA (14:07)
[2018-01-10 14:22] LABS: Basophils % (A) 0 %; Eosinophils # (A) 0.1 k/uL (0-0.7); Eosinophils % (A) 2 %; HCT 42.9 % (39.0-53.0); HGB 14.6 gm/dL (13.0-17.5); Lymphocytes # (A) 1.1 k/uL (1.0-4.8); Lymphocytes % (A) 13 %; MCH 31.2 pg (25.0-35.0); MCHC 33.9 g/dL (31.0-37.0); MCV 92.1 fL (80.0-100.0); Mean Platelet Volume 8.3; Monocytes # (A) 0.6 k/uL (0-1.0); Monocytes % (A) 7 %; Neutrophils # (A) 6.2 k/uL (1.3-7.7); Neutrophils % (A) 76 %; Platelet Count 212 k/uL (150-450); RBC 4.66 m/uL (4.30-5.90); RDW 14.2 % (11.5-15.5); WBC 8.2 k/uL (3.8-10.6)
--- NOTE | 2018-01-10 14:22 | ED ---
General Adult HPI - General Chief complaint: Seizure Stated complaint: Seizure Time Seen by Provider: 01/10/18 14:08 Source: patient, EMS, RN notes reviewed, old records reviewed Mode of arrival: EMS Limitations: no limitations - History of Present Illness Initial comments: This is a 47-year-old male the ER for evaluation. Patient resents today for evaluation regards to seizure. New-onset seizure. Patient has history of smoking, was recently started on Wellbutrin patient was started on Wellbutrin to stop smoking. Patient has no other new medications no history of seizures no head trauma. Denies drugs or alcohol use - Related Data Home Medications Medication Instructions Recorded Confirmed Gabapentin 800 mg PO TID 01/10/18 01/10/18 Hydrochlorothiazide 25 mg PO DAILY 01/10/18 01/10/18 Lisinopril [Zestril] 20 mg PO BID 01/10/18 01/10/18 buPROPion HCL [Wellbutrin XL] 150 mg PO DAILY 01/10/18 01/10/18 Allergies Allergy/AdvReac Type Severity Reaction Status Date / Time ibuprofen [From Motrin] AdvReac Nausea & Verified 01/10/18 14:20 Vomiting simvastatin [From Zocor] AdvReac Dizziness Verified 01/10/18 14:20 Review of Systems ROS Statement: Those systems with pertinent positive or pertinent negative responses have been documented in the HPI. ROS Other: All systems not noted in ROS Statement are negative. Past Medical History Past Medical History: Atrial Fibrillation, Hyperlipidemia, Hypertension Additional Past Medical History / Comment(s): neuropathy, MIGRAINES, sciatica, hernia, back pain, sleep disorder, kidney stones History of Any Multi-Drug Resistant Organisms: None Reported Past Surgical History: Orthopedic Surgery Additional Past Surgical History / Comment(s): shoulder sx x2 rotator cuff repair Past Anesthesia/Blood Transfusion Reactions: No Reported Reaction Past Psychological History: No Psychological Hx Reported Smoking Status: Current every day smoker Past Alcohol Use History: None Reported Past Drug Use History: Marijuana - Past Family History Father Family Medical History: Myocardial Infarction ([place]) Additional Family Medical History / Comment(s): mi at age 35, still living Mother Family Medical History: Myocardial Infarction ([place]) Additional Family Medical History / Comment(s): 2-3 mi, still living General Exam Limitations: no limitations Course Vital Signs 01/10/18 01/10/18 13:36 14:23 Temperature 97.5 F L Pulse Rate 119 H 110 H Respiratory 20 18 Rate Blood Pressure 155/74 140/79 O2 Sat by Pulse 98 99 Oximetry EKG Findings - EKG Comments: EKG Findings:: EKG shows sinus tachycardia rate 1:15, [place] 166, QRS 90, QTc 473 Medical Decision Making - Medical Decision Making 47 male the ER with new seizure secondary to Wellbutrin is, patient will stop all patient is otherwise tests are within normal limits the patient can be discharged home - Lab Data Result diagrams: 01/10/18 13:46 01/10/18 13:46 Lab Results 01/10/18 01/10/18 Range/Units 13:46 13:46 WBC 8.2 (3.8-10.6) k/uL RBC 4.66 (4.30-5.90) m/uL Hgb 14.6 (13.0-17.5) gm/dL Hct 42.9 (39.0-53.0) % MCV 92.1 (80.0-100.0) fL MCH 31.2 (25.0-35.0) pg MCHC 33.9 (31.0-37.0) g/dL RDW 14.2 (11.5-15.5) % Plt Count 212 (150-450) k/uL Neutrophils % 76 % Lymphocytes % 13 % Monocytes % 7 % Eosinophils % 2 % Basophils % 0 % Neutrophils # 6.2 (1.3-7.7) k/uL Lymphocytes # 1.1 (1.0-4.8) k/uL Monocytes # 0.6 (0-1.0) k/uL Eosinophils # 0.1 (0-0.7) k/uL Basophils # 0.0 (0-0.2) k/uL Sodium 138 (137-145) mmol/L Potassium 3.9 (3.5-5.1) mmol/L Chloride 106 (98-107) mmol/L Carbon Dioxide 20 L (22-30) mmol/L Anion Gap 12 mmol/L BUN 11 (9-20) mg/dL Creatinine 0.79 (0.66-1.25) mg/dL Est GFR (CKD-EPI)AfAm >90 (>60 ml/min/1.73 sqM) Est GFR (CKD-EPI)NonAf >90 (>60 ml/min/1.73 sqM) Glucose 99 (74-99) mg/dL Calcium 9.3 (8.4-10.2) mg/dL Total Bilirubin 0.7 (0.2-1.3) mg/dL AST 35 (17-59) U/L ALT 30 (21-72) U/L Alkaline Phosphatase 57 (38-126) U/L Total Protein 7.0 (6.3-8.2) g/dL Albumin 4.1 (3.5-5.0) g/dL Disposition Clinical Impression: Generalized seizure, Epileptic seizure Disposition: HOME SELF-CARE Condition: Good Instructions: New-Onset Seizure in Adults (ED) Is patient prescribed a controlled substance at d/c from ED?: No Referrals: Viktoria Richardson MD [Primary Care Provider] - 1-2 days
[2018-01-10 14:24] VITALS: PULSE 110; RESP 18
[2018-01-10 14:44] LABS: ALT 30 U/L (21-72); AST 35 U/L (17-59); Albumin 4.1 g/dL (3.5-5.0); Alkaline Phosphatase 57 U/L (38-126); Anion Gap 12 mmol/L; Blood Urea Nitrogen 11 mg/dL (9-20); Calcium 9.3 mg/dL (8.4-10.2); Carbon Dioxide 20 mmol/L (22-30); Chloride 106 mmol/L (98-107); Glucose 99 mg/dL (74-99); Potassium 3.9 mmol/L (3.5-5.1); Sodium 138 mmol/L (137-145); Total Bilirubin 0.7 mg/dL (0.2-1.3)
[2018-01-10 15:14] LABS: Appearance,Urine Clear (Clear); Bilirubin,Urine Negative (Negative); Blood,Urine Negative (Negative); Color,Urine Yellow; Glucose,Urine (UA) Negative (Negative); Ketones,Urine Trace (Negative); Leukocyte Esterase,Urine Negative (Negative); Mucus,Urine Occasional /hpf; Nitrite,Urine Negative (Negative); PH, Urine 6.5 (5.0-8.0); Protein,Urine 1+ (Negative); RBC,Urine 1 /hpf (0-5); Specific Gravity,Urine 1.025 (1.001-1.035); Urobilinogen,Urine <2.0 mg/dL (<2.0); WBC,Urine 2 /hpf (0-5)
[2018-01-10 15:22] LABS: Amphetamine Screen,Urine Not Detected (NotDetected); Barbiturate Screen,Urine Not Detected (NotDetected); Benzodiazepines Screen,Urine Not Detected (NotDetected); Cocaine Screen,Urine Not Detected (NotDetected); Methadone Screen, Urine Not Detected (NotDetected); Opiate Screen,Urine Detected (NotDetected); Oxycodone Screen, Urine Not Detected (NotDetected); Phencyclidine Screen,Urine Not Detected (NotDetected); Tricyclic Antidepressant,Urine Not Detected (NotDetected); Urn Cannabinoid Scrn Detected (NotDetected)
[2018-01-10 15:34] VITALS: BP 138/69; TEMP 97.8
== END 2018-01-10 15:33 | disposition home or self-care (01) ==
LOC: EC 13:33
DX: G40.909 Epilepsy, unspecified, not intractable, without status epilepticus (principal); I48.91 Unspecified atrial fibrillation; I10 Essential (primary) hypertension; G62.9 Polyneuropathy, unspecified; F17.200 Nicotine dependence, unspecified, uncomplicated; Z79.899 Other long term (current) drug therapy; Z88.6 Allergy status to analgesic agent; Z88.8 Allergy status to other drugs, medicaments and biological substances
CPT/HCPCS: 99285; 96374; 96361; 36415; 93005; 80053; 85025; 81001; 80306; J2060

== ENCOUNTER 2018-03-16 20:31 | Observation (INO) | payer OTHER ==
[2018-03-16] MEDS ORDERED: ASPIRIN 81 MG PO STA (20:41)
--- NOTE | 2018-03-16 21:05 | XR ---
EXAMINATION TYPE: XR chest 2V DATE OF EXAM: 03/16/2018 COMPARISON: 03/13/2018 HISTORY: Chest pain TECHNIQUE: Frontal and lateral views of the chest are obtained. FINDINGS: Heart and mediastinum are normal. Lungs are clear. Diaphragm is normal. Bony thorax is int act. Pulmonary vascularity is normal. IMPRESSION: Normal chest. No change.
[2018-03-16] MEDS ORDERED: KETOROLAC 30 MG/ML 1 ML VIAL IVP STA (21:10)
[2018-03-16 21:29] LABS: Basophils % (A) 0 %; Eosinophils # (A) 0.3 k/uL (0-0.7); Eosinophils % (A) 2 %; HCT 41.5 % (39.0-53.0); HGB 14.4 gm/dL (13.0-17.5); Lymphocytes # (A) 2.3 k/uL (1.0-4.8); Lymphocytes % (A) 18 %; MCH 31.3 pg (25.0-35.0); MCHC 34.7 g/dL (31.0-37.0); MCV 90.1 fL (80.0-100.0); Mean Platelet Volume 7.9; Monocytes # (A) 0.8 k/uL (0-1.0); Monocytes % (A) 7 %; Neutrophils # (A) 8.9 k/uL (1.3-7.7); Neutrophils % (A) 71 %; Platelet Count 222 k/uL (150-450); RBC 4.61 m/uL (4.30-5.90); RDW 14.3 % (11.5-15.5); WBC 12.4 k/uL (3.8-10.6)
[2018-03-16 21:36] LABS: INR 1.1 (<1.2); Partial Thromboplastin Time 24.2 sec (22.0-30.0); Prothrombin Time 10.5 sec (9.0-12.0)
[2018-03-16 21:37] LABS: ALT 37 U/L (21-72); AST 81 U/L (17-59); Albumin 4.5 g/dL (3.5-5.0); Alkaline Phosphatase 64 U/L (38-126); Anion Gap 10 mmol/L; Blood Urea Nitrogen 14 mg/dL (9-20); Calcium 9.8 mg/dL (8.4-10.2); Carbon Dioxide 25 mmol/L (22-30); Chloride 105 mmol/L (98-107); Glucose 123 mg/dL (74-99); Lipase 76 U/L (23-300); Magnesium 1.8 mg/dL (1.6-2.3); Potassium 3.8 mmol/L (3.5-5.1); Sodium 140 mmol/L (137-145); Total Bilirubin 0.7 mg/dL (0.2-1.3); Total Protein 7.8 g/dL (6.3-8.2)
[2018-03-16] MEDS ORDERED: MORPHINE SULFATE 4 MG/ML SYRINGE IVP STA (21:44)
--- NOTE | 2018-03-16 21:46 | ED ---
Chest Pain HPI - General Source: patient, RN notes reviewed Mode of arrival: wheelchair Limitations: no limitations <Dudley Maguire - Last Filed: 03/16/18 22:34> <Suzanne Deleon - Last Filed: 03/17/18 00:03> - General Chief Complaint: Chest Pain Stated Complaint: CHEST PAIN Time Seen by Provider: 03/16/18 20:41 - History of Present Illness Initial Comments: 47-year-old male with past medical history of A. fib, hyperlipidemia hypertension presents today chief complaint of chest pain. Patient admits that he was discharged yesterday for chest pain after hospitalized having stress and heart cath. Patient's heart catheterization did not reveal any stenosis no stent placed. Patient states today he woke up with the pain and left-sided his chest has been present all day but feels more intense than before. He states that he's been taking the [place] and states that the [place] was not helping this pain. Patient is requesting pain meds. Patient denies any fever, chills, headache, dizziness, nausea, vomiting, diarrhea constipation. Patient states it hurts to be pressing on his chest. (Dudley Maguire) - Related Data Home Medications Medication Instructions Recorded Confirmed Gabapentin 800 mg PO TID 01/10/18 03/16/18 Hydrochlorothiazide 25 mg PO DAILY 01/10/18 03/16/18 amLODIPine [Norvasc] 10 mg PO DAILY 03/13/18 03/16/18 Amitriptyline HCl [Elavil] 25 mg PO HS 03/16/18 03/16/18 Aspirin EC [Ecotrin Low Dose] 81 mg PO DAILY 03/16/18 03/16/18 HYDROcodone/APAP 7.5-325MG [[place] 1 tab PO Q6H PRN 03/16/18 03/16/18 7.5-325] Lisinopril [Zestril] 40 mg PO DAILY 03/16/18 03/16/18 Previous Rx's Medication Instructions Recorded Cyclobenzaprine [Flexeril] 5 mg PO TID PRN #15 tab 03/15/18 Allergies Allergy/AdvReac Type Severity Reaction Status Date / Time ibuprofen [From Motrin] AdvReac Nausea & Verified 03/16/18 21:26 Vomiting simvastatin [From Zocor] AdvReac Dizziness Verified 03/16/18 21:26 Review of Systems ROS Other: All systems not noted in ROS Statement are negative. <TonnyDudley hamilton - Last Filed: 03/16/18 22:34> ROS Other: All systems not noted in ROS Statement are negative. <Suzanne Deleon Ravinder - Last Filed: 03/17/18 00:03> ROS Statement: Those systems with pertinent positive or pertinent negative responses have been documented in the HPI. EKG Findings - EKG Comments: EKG Findings:: EKG performed at 20:45 normal sinus rhythm with a rate of 95 OR 166 QRS 94/QTC 356/447 <AndrezDudley Oliveira - Last Filed: 03/16/18 22:34> Past Medical History Past Medical History: Atrial Fibrillation, Hyperlipidemia, Hypertension Additional Past Medical History / Comment(s): neuropathy, MIGRAINES, sciatica, hernia, back pain, sleep disorder, kidney stones History of Any Multi-Drug Resistant Organisms: None Reported Past Surgical History: Orthopedic Surgery Additional Past Surgical History / Comment(s): shoulder sx x2 rotator cuff repair Past Anesthesia/Blood Transfusion Reactions: No Reported Reaction Past Psychological History: No Psychological Hx Reported Smoking Status: Current every day smoker Past Alcohol Use History: None Reported Past Drug Use History: Marijuana - Past Family History Father Family Medical History: Myocardial Infarction ([place]) Additional Family Medical History / Comment(s): mi at age 35, still living Mother Family Medical History: Myocardial Infarction ([place]) Additional Family Medical History / Comment(s): 2-3 mi, still living <Dudley Maguire - Last Filed: 03/16/18 22:34> General Exam Limitations: no limitations General appearance: alert, in no apparent distress Head exam: Present: atraumatic, normocephalic, normal inspection Neck exam: Present: normal inspection. Absent: tenderness, meningismus, lymphadenopathy Respiratory exam: Present: normal lung sounds bilaterally, chest wall tenderness. Absent: respiratory distress, wheezes, rales, rhonchi, stridor Cardiovascular Exam: Present: regular rate, normal rhythm, normal heart sounds. Absent: systolic murmur, diastolic murmur, rubs, gallop, clicks GI/Abdominal exam: Present: soft, normal bowel sounds. Absent: distended, tenderness, guarding, rebound, rigid Skin exam: Present: warm, dry, intact, normal color. Absent: rash <Dudley Maguire - Last Filed: 03/16/18 22:34> Vital Signs 03/16/18 03/16/18 03/16/18 20:34 20:50 21:30 Temperature 98.0 F Pulse Rate 117 H 107 H 94 Respiratory 18 13 15 Rate Blood Pressure 152/81 123/84 130/81 O2 Sat by Pulse 98 96 96 Oximetry 03/16/18 03/16/18 22:10 22:50 Temperature Pulse Rate 84 85 Respiratory 10 L 12 Rate Blood Pressure 121/87 138/102 O2 Sat by Pulse 97 98 Oximetry Chest Pain MDM <Dudley Maguire - Last Filed: 03/16/18 22:34> <Suzanne Deleon - Last Filed: 03/17/18 00:03> - MDM 47-year-old male presents emergency Department for chest pain. Patient has noted elevated troponin may related to recent cath. Patient also has elevated CK. Patient be hydrated, started heparin. Dr. Deleon did contact cardiology. (Dudley Maguire) I personally saw and examined the patient. I reviewed and agree with the mid- level provider findings including all diagnostic interpretations and treatment plans as written unless otherwise stated. I was present for avalos portions of any procedures performed. Patient care was discussed with cardiology stationary engineer supervisor Dr. Vila who states that mildly elevated troponin is insignificant and the immediate post-cath, recommends starting the patient on a beta darleen. Care was discussed with Dr. Conklin of the [facility] who accepts the admission for rhabdo. (Suzanne Deleon) Disposition <Dudley Maguire - Last Filed: 03/16/18 22:34> <Suzanne Deleon - Last Filed: 03/17/18 00:03> Clinical Impression: Chest pain, Elevated CK, Elevated troponin Disposition: ADMITTED IP TO THIS HOSP Condition: Fair
[2018-03-16] MEDS ORDERED: SODIUM CHLORIDE 0.9% 500 ML 500 ML IV ONE (21:51)
[2018-03-16] MEDS ORDERED: SODIUM CHLORIDE 0.9% 1,000 ML IV ONE (21:51)
[2018-03-16 21:53] LABS: Creatine Kinase MB 10.1 ng/mL (0.0-2.4)
[2018-03-16 22:12] LABS: Troponin I 0.071 ng/mL (0.000-0.034)
[2018-03-16] MEDS ORDERED: HEPARIN SOD,PORK IN 0.45% NACL 25,000 UNIT in 0.45% NACL 1 500ML.BAG IV SCH (22:30)
[2018-03-16] MEDS ORDERED: HEPARIN SODIUM,PORCINE 5,000 UNIT/ML 1 ML VIAL IV ONE (22:30)
[2018-03-16] MEDS ORDERED: NITROGLYCERIN SL TABS 0.4 MG TAB SUBLINGUAL PRN (22:30)
[2018-03-17] MEDS: SODIUM CHLORIDE 0.9% 1,000 ML IV SCH ×4 (00:39→18:54)
--- NOTE | 2018-03-17 00:40 | P.HPIM ---
History of Present Illness H&P Date: 03/16/18 Chief Complaint: Left-sided chest pain recurrent 47-year-old male with history of hypertension. Patient had multiple encounters in the ER and hospitalizations for left-sided chest pain lasting was discharged one day ago diagnosed with costochondritis after performing left heart cath which revealed clean coronary arteries and normal left ventricular ejection fraction. Patient was informed that he can come to the emergency department if the pain worsens. He felt that the pain was worse today and not well-controlled with his pain medications who say decided to come to the hospital. In the ER after performing basic workup he was found to have elevated CK concerning for rhabdo of unknown etiology patient denies any straining physical activity denies taking any statin, denies any viral-like syndrome, denies any trauma. Patient denies any hematuria. Otherwise denies any fevers chills trouble breathing he denies any coughing denies any abdominal pain denies any focal neurologic deficits. Review of Systems Pertinent positives as noted in HPI. All other systems were reviewed and are negative Past Medical History Past Medical History: Atrial Fibrillation, Hyperlipidemia, Hypertension Additional Past Medical History / Comment(s): neuropathy, MIGRAINES, sciatica, hernia, back pain, sleep disorder, kidney stones History of Any Multi-Drug Resistant Organisms: None Reported Past Surgical History: Orthopedic Surgery Additional Past Surgical History / Comment(s): shoulder sx x2 rotator cuff repair Past Anesthesia/Blood Transfusion Reactions: No Reported Reaction Past Psychological History: No Psychological Hx Reported Smoking Status: Current every day smoker Past Alcohol Use History: None Reported Past Drug Use History: Marijuana - Past Family History Father Family Medical History: Myocardial Infarction ([place]) Additional Family Medical History / Comment(s): mi at age 35, still living Mother Family Medical History: Myocardial Infarction ([place]) Additional Family Medical History / Comment(s): 2-3 mi, still living Medications and Allergies Home Medications Medication Instructions Recorded Confirmed Type Gabapentin 800 mg PO TID 01/10/18 03/16/18 History Hydrochlorothiazide 25 mg PO DAILY 01/10/18 03/16/18 History amLODIPine [Norvasc] 10 mg PO DAILY 03/13/18 03/16/18 History Cyclobenzaprine [Flexeril] 5 mg PO TID PRN #15 tab 03/15/18 03/16/18 Rx Amitriptyline HCl [Elavil] 25 mg PO HS 03/16/18 03/16/18 History Aspirin EC [Ecotrin Low Dose] 81 mg PO DAILY 03/16/18 03/16/18 History HYDROcodone/APAP 7.5-325MG [[place] 1 tab PO Q6H PRN 03/16/18 03/16/18 History 7.5-325] Lisinopril [Zestril] 40 mg PO DAILY 03/16/18 03/16/18 History Allergies Allergy/AdvReac Type Severity Reaction Status Date / Time ibuprofen [From Motrin] AdvReac Nausea & Verified 03/16/18 21:26 Vomiting simvastatin [From Zocor] AdvReac Dizziness Verified 03/16/18 21:26 Physical Exam Vitals: Vital Signs Temp Pulse Resp BP Pulse Ox 03/16/18 22:50 85 12 138/102 98 03/16/18 22:10 84 10 L 121/87 97 03/16/18 21:30 94 15 130/81 96 03/16/18 20:50 107 H 13 123/84 96 03/16/18 20:34 98.0 F 117 H 18 152/81 98 Intake and Output 03/16/18 03/16/18 03/17/18 14:59 22:59 06:59 Other: Weight 99.79 kg Constitutional: No acute distress, conversant, pleasant Eyes: Anicteric sclerae, moist conjunctiva, no lid-lag Pupils equal round reactive to light ENMT: NC/AT Oropharynx clear, no erythema, or exudates Neck: Supple, FROM, no masses, or JVD No carotid bruits No thyromegaly Lungs: Clear to auscultation Clear to percussion Normal respiratory effort, no accessory muscle use Reproducible left-sided chest pain with deep palpation Cardiovascular: Heart regular in rate and rhythm, No murmurs, gallops, or rubs No peripheral edema Abdominal: Soft Nontender, no guarding, rebound or rigidity Abdomen moving with respiration Normoactive bowel sounds No hepatomegaly, No splenomegaly No palpable mass No abdominal wall hernia noted Skin: Normal temperature, tone, texture, turgor No induration No subcutaneous nodules No rash, lesions No ulcers Extremities: No digital cyanosis No clubbing Pedal pulses intact and symmetrical Radial pulses intact and symmetrical No calf tenderness Psychiatric: Alert and oriented to person, place and time Appropriate affect fair judgment Neuro Muscles Strength 5/5 in all 4 extremities Sensation to light touch grossly present throughout Cranial nerves II-XII grossly intact No focal sensory deficits Lymphatics: no palpable cervical or supraclavicular , or inguinal lymph nodes Results CBC & Chem 7: 03/16/18 20:47 03/16/18 20:47 Labs: Abnormal Lab Results - Last 24 Hours (Table) 03/16/18 03/16/18 03/16/18 Range/Units 20:47 20:47 20:47 WBC 12.4 H (3.8-10.6) k/uL Neutrophils # 8.9 H (1.3-7.7) k/uL Glucose 123 H (74-99) mg/dL AST 81 H (17-59) U/L Total Creatine Kinase 2089 H* (55-170) U/L CK-MB (CK-2) 10.1 H (0.0-2.4) ng/mL Troponin I 0.071 H* (0.000-0.034) ng/mL Assessment and Plan Assessment: 47 year old male admitted under observation with anticipated length of stay <48 hours for rhabdomyolysis, patient was recently hospitalized for chest pain to r /o ACS, left heart cath was clean . patient discharged home yesterday, with diagnosis of costrochondritis Plan: Rhabdomyolysis , unknown etiology , no associated renal failure aggressive IVF hydration trend CK monitor urine output costochondritis pain control Hypertension currently controlled continue lisinopril and amlodipine DVT PPx on heparin sc tid Preformed a thorough record review from recent hospitalization *, patient had multiple encounters for chest pain but eventually he was getting diagnosed with costochondritis. Last hospitalization he had left heart cath which reported to have found normal coronary arteries with normal ejection fraction Surrogate decision-maker: Patient's , Елена CODE STATUS:*Full code Discussed with: Patient, ER, RN Anticipated discharge: <[address]: Home A total of 55 minutes was spent on the care of this complex patient more than 50 % of the time was spent in counseling and care coordination.
[2018-03-17] MEDS: MORPHINE SULFATE 4 MG/ML SYRINGE IV PRN ×5 (01:10→20:00)
[2018-03-17 03:47] LABS: Creatine Kinase MB 7.4 ng/mL (0.0-2.4)
[2018-03-17 03:48] LABS: Troponin I 0.044 ng/mL (0.000-0.034)
[2018-03-17 06:32] LABS: Anion Gap 5 mmol/L; Blood Urea Nitrogen 15 mg/dL (9-20); Calcium 8.7 mg/dL (8.4-10.2); Carbon Dioxide 25 mmol/L (22-30); Chloride 107 mmol/L (98-107); Glucose 83 mg/dL (74-99); Potassium 4.2 mmol/L (3.5-5.1); Sodium 137 mmol/L (137-145)
[2018-03-17 06:48] LABS: Creatine Kinase 1490 U/L (55-170)
[2018-03-17] MEDS ORDERED: HEPARIN SODIUM,PORCINE 5,000 UNIT/ML 1 ML VIAL IV STA (07:01)
[2018-03-17] MEDS: HYDROcodone/APAP 7.5-325MG 1 EACH TAB PO PRN ×2 (07:57→18:27)
[2018-03-17] MEDS ORDERED: ASPIRIN 325 MG TAB PO SCH (09:00)
[2018-03-17 10:27] LABS: Creatine Kinase MB 7.9 ng/mL (0.0-2.4); Troponin I 0.027 ng/mL (0.000-0.034)
[2018-03-17 10:38] LABS: Cocaine Screen,Urine Not Detected (NotDetected); Phencyclidine Screen,Urine Not Detected (NotDetected); Urn Cannabinoid Scrn Detected (NotDetected)
[2018-03-17 10:39] LABS: Amphetamine Screen,Urine Not Detected (NotDetected); Barbiturate Screen,Urine Not Detected (NotDetected); Benzodiazepines Screen,Urine Not Detected (NotDetected); Methadone Screen, Urine Not Detected (NotDetected); Opiate Screen,Urine Detected (NotDetected); Oxycodone Screen, Urine Not Detected (NotDetected); Tricyclic Antidepressant,Urine Not Detected (NotDetected)
[2018-03-17] MEDS: METOPROLOL TARTRATE 25 MG TAB PO SCH ×2 (11:02→20:02)
[2018-03-17] MEDS: LISINOPRIL 20 MG TAB PO SCH (11:03)
[2018-03-17] MEDS: GABAPENTIN 400 MG CAP PO SCH ×3 (11:03→23:15)
[2018-03-17] MEDS: ASPIRIN 81 MG PO SCH (11:04)
[2018-03-17] MEDS: amLODIPine 10 MG TAB PO SCH (11:04)
[2018-03-17] MEDS: CYCLOBENZAPRINE 10 MG TAB PO PRN (11:23)
[2018-03-17] MEDS: COLCHICINE 0.6 MG EACH PO SCH ×2 (12:07→20:02)
--- NOTE | 2018-03-17 12:12 | P.CRDCN ---
History of Present Illness History of present illness: Mr. Webb is a pleasant 47-year-old male past medical history significant for hypertension, dyslipidemia, chronic nicotine dependence and regular marijuana use. He has recently established in the office with Dr. Burleson. He was admitted in the hospital last week and underwent a stress test that was abnormal and subsequent cardiac catheterization. The cath revealed normal coronary arteries with no obstructive disease noted. He states he was discharged Saturday and was still having mild chest discomfort. He woke up yesterday morning with ongoing discomfort that was worsening with deep breaths. He denies associated shortness of breath, dizziness, nausea, vomiting, diaphoresis or palpitations. His pain has been constant since admission and is pleuritic with no specific alleviating factors. He is currently maintained on Norvasc 10 mg daily, lisinopril 40 mg daily, hydrochlorothiazide 25 mg daily and aspirin 81 mg daily. EKG on arrival reveals sinus mechanism heart rate of [address] abnormalities noted. Evidence of IN depression in lead II and V3 Repeat EKG this morning sinus bradycardia. Chest xray negative for an acute cardiopulmonary process. Laboratory data reviewed, WBC 12.4, hemoglobin 14.4, platelets 222, sodium 137, potassium 4.2, creatinine 0.81, magnesium on admission 1.8, CK 2087, 1420, 1490 in 2048. Troponin 0.0 cm, 0.044 and 0.027 respectively. Echocardiogram obtained on last admission revealed preserved LV systolic function with EF 50-55%, mild MR and borderline pulmonary hypertension with RVSP 38.2 mmHg. At the time of my exam: CONSTITUTIONAL: Denies fever. Denies chills. EYES: Denies blurred vision. Denies vision changes. Denies eye pain. EARS, NOSE, MOUTH & THROAT: Denies headache. Denies sore throat. Denies ear pain. CARDIOVASCULAR: Denies chest pain. Denies shortness of breath. Denies orthopnea. Denies PND. Denies palpitations. RESPIRATORY: Denies cough. GASTROINTESTINAL: Denies abdominal pain. Denies diarrhea. Denies constipation. Denies nausea. Denies vomiting. MUSCULOSKELETAL: Complains of pleuritic pain. INTEGUMENTARY: Denies pruitis. Denies rash. NEUROLOGIC: Denies numbness. Denies tingling. Denies weakness. PSYCHIATRIC: Denies anxiety. Denies depression. ENDOCRINE: Denies fatigue. Denies weight change. Denies polydipsia. Denies polyurina. GENITOURINARY: Denies burning, hematuria or urgency with micturation. HEMATOLOGIC: Denies history of anemia. Denies bleeding. Blood pressure 125/75 heart rate 55 afebrile maintaining oxygen saturation on room air GENERAL: This is a 47-year-old male in no apparent distress at the time of my examination. HEENT: Head is atraumatic, normocephalic. Pupils are equal, round. Sclerae anicteric. Conjunctivae are clear. Mucous membranes of the mouth are moist. Neck is supple. There is no jugular venous distention. No carotid bruit is heard. LUNGS: Clear to auscultation no wheezes, rales or rhonchi. No chest wall tenderness is noted on palpation or with deep breathing. HEART: Regular rate and rhythm without murmurs, rubs or gallops. S1 and S2 heard. ABDOMEN: Soft, nontender. Bowel sounds are heard. No organomegaly noted. EXTREMITIES: No evidence of peripheral edema and no calf tenderness noted. VASCULAR: Radial and dorsalis pedis pulses palpated, no evidence of clubbing. NEUROLOGIC: Patient is awake, alert and oriented x3. ASSESSMENT Pleuritic chest pain suggestive of possible pericarditis. Mildly elevated troponin, not indicative of an acute event with elevated CK. Leukocytosis Rhabdomyolysis Hypertension Dyslipidemia Chronic nicotine dependence Regular marijuana use PLAN An acute coronary event has been ruled out. Repeat 2D echocardiogram and doppler study to assess cardiac structure and function. Check sedimentations rate, c-reactive protein and urinalysis. Start on colchicine 0.6 mg BID. We will continue to follow and make recommendations accordingly. Thank you kindly for this consultation. Nurse Practitioner note has been reviewed, I agree with a documented findings and plan of care. Patient was seen and examined. Past Medical History Past Medical History: Atrial Fibrillation, Hyperlipidemia, Hypertension Additional Past Medical History / Comment(s): Pt recently admitted on 03/13/18 with costrochondritis with abnormal stress echo/ normal cardiac cath. Other hx : Chronic pain, chronic low back pain with bilateral sciatica, neuropathy bilateral hands/feet, migraines, partial SBO, kidney stones. History of Any Multi-Drug Resistant Organisms: None Reported Past Surgical History: Heart Catheterization, Orthopedic Surgery Additional Past Surgical History / Comment(s): 03/14/18 Cardiac cath-normal coronaries, L shoulder rotator cuff repair x2, cervical injection. Past Anesthesia/Blood Transfusion Reactions: No Reported Reaction Smoking Status: Current every day smoker - Past Family History Father Family Medical History: Myocardial Infarction ([place]) Additional Family Medical History / Comment(s): mi at age 35, still living Mother Family Medical History: Myocardial Infarction ([place]) Additional Family Medical History / Comment(s): Mother has had at least one [place]- pt unsure at what age. He has not had much contact with his mother since he was 17 yrs old. Medications and Allergies Home Medications Medication Instructions Recorded Confirmed Type Gabapentin 800 mg PO TID 01/10/18 03/16/18 History Hydrochlorothiazide 25 mg PO DAILY 01/10/18 03/16/18 History amLODIPine [Norvasc] 10 mg PO DAILY 03/13/18 03/16/18 History Cyclobenzaprine [Flexeril] 5 mg PO TID PRN #15 tab 03/15/18 03/16/18 Rx Amitriptyline HCl [Elavil] 25 mg PO HS 03/16/18 03/16/18 History Aspirin EC [Ecotrin Low Dose] 81 mg PO DAILY 03/16/18 03/16/18 History HYDROcodone/APAP 7.5-325MG [[place] 1 tab PO Q6H PRN 03/16/18 03/16/18 History 7.5-325] Lisinopril [Zestril] 40 mg PO DAILY 03/16/18 03/16/18 History Allergies Allergy/AdvReac Type Severity Reaction Status Date / Time ibuprofen [From Motrin] AdvReac Nausea & Verified 03/16/18 21:26 Vomiting simvastatin [From Zocor] AdvReac Dizziness Verified 03/16/18 21:26 Physical Exam Vitals: Vital Signs Temp Pulse Pulse Resp BP BP Pulse Ox 03/17/18 08:00 98.2 F 59 L 55 L 16 120/62 125/75 100 03/17/18 07:00 119/83 03/17/18 06:49 75 16 115/83 99 03/17/18 05:00 82 15 117/73 03/17/18 04:00 60 21 113/78 03/17/18 03:00 68 12 113/70 03/17/18 02:00 69 108/71 03/17/18 01:00 77 96/59 03/17/18 00:00 83 137/78 96 03/16/18 23:00 80 25 H 138/102 99 03/16/18 22:50 85 12 138/102 98 03/16/18 22:10 84 10 L 121/87 97 03/16/18 21:30 94 15 130/81 96 03/16/18 20:50 107 H 13 123/84 96 03/16/18 20:34 98.0 F 117 H 18 152/81 98 Intake and Output 03/16/18 03/17/18 03/17/18 22:59 06:59 14:59 Intake Total 403.59 Balance 403.59 Intake: Intake, IV Titration 163.59 Amount Heparin Sod,Pork in 0.45% 163.59 NaCl 25,000 unit In 0.45 % NaCl 1 500ml.bag @ 10 UNITS/KG/HR 19.95 mls/hr IV .Q24H [facility] Rx#: [id number] Oral 240 Other: Voiding Method Toilet # Voids 1 Weight 99.79 kg 102.9 kg Results 03/16/18 20:47 03/17/18 05:41 Cardiac Enzymes 03/16/18 03/16/18 03/17/18 Range/Units 20:47 20:47 02:57 AST 81 H (17-59) U/L CK-MB (CK-2) 10.1 H 7.4 H (0.0-2.4) ng/mL Troponin I 0.071 H* 0.044 H* (0.000-0.034) ng/mL 03/17/18 Range/Units 09:29 AST (17-59) U/L CK-MB (CK-2) 7.9 H (0.0-2.4) ng/mL Troponin I 0.027 (0.000-0.034) ng/mL Coagulation 03/16/18 03/17/18 Range/Units 20:47 05:41 PT 10.5 (9.0-12.0) sec APTT 24.2 40.1 H (22.0-30.0) sec CBC 03/16/18 Range/Units 20:47 WBC 12.4 H (3.8-10.6) k/uL RBC 4.61 (4.30-5.90) m/uL Hgb 14.4 (13.0-17.5) gm/dL Hct 41.5 (39.0-53.0) % Plt Count 222 (150-450) k/uL Comprehensive Metabolic Panel 03/16/18 03/17/18 Range/Units 20:47 05:41 Sodium 140 137 (137-145) mmol/L Potassium 3.8 4.2 (3.5-5.1) mmol/L Chloride 105 107 (98-107) mmol/L Carbon Dioxide 25 25 (22-30) mmol/L BUN 14 15 (9-20) mg/dL Creatinine 0.85 0.81 (0.66-1.25) mg/dL Glucose 123 H 83 (74-99) mg/dL Calcium 9.8 8.7 (8.4-10.2) mg/dL AST 81 H (17-59) U/L ALT 37 (21-72) U/L Alkaline Phosphatase 64 (38-126) U/L Total Protein 7.8 (6.3-8.2) g/dL Albumin 4.5 (3.5-5.0) g/dL Current Medications Generic Name Dose Route Start Last Admin Trade Name Freq PRN Reason Stop Dose Admin Hydrocodone Bitart/Acetaminophen 1 each 03/17/18 00:20 03/17/18 07:57 [place] 7.5-325 PO 1 each Q6H PRN Administration Pain Amitriptyline HCl 25 mg 03/17/18 21:00 Elavil PO HS [facility] Amlodipine Besylate 10 mg 03/17/18 09:00 Norvasc PO DAILY [facility] Aspirin 81 mg 03/17/18 09:00 Aspirin PO DAILY [facility] Colchicine 0.6 mg 03/17/18 10:45 Colcrys PO BID [facility] Cyclobenzaprine HCl 5 mg 03/17/18 00:20 Flexeril PO TID PRN Muscle Spasm Gabapentin 800 mg 03/17/18 09:00 Neurontin PO TID [facility] Sodium Chloride 1,000 mls @ 200 mls/hr 03/16/18 22:45 03/17/18 10:10 Saline 0.9% IV 200 mls/hr .Q5H [facility] Administration Lisinopril 40 mg 03/17/18 09:00 Zestril PO DAILY [facility] Metoprolol Tartrate 12.5 mg 03/17/18 09:00 Lopressor PO BID [facility] Morphine Sulfate 4 mg 03/16/18 22:30 03/17/18 08:45 Morphine Sulfate (Inj) IV 4 mg Q4HR PRN Administration Chest Pain Nitroglycerin 0.4 mg 03/16/18 22:30 Nitrostat SUBLINGUAL Q5M PRN Chest Pain Intake and Output 03/16/18 03/17/18 03/17/18 22:59 06:59 14:59 Intake Total 403.59 Balance 403.59 Intake: Intake, IV Titration 163.59 Amount Heparin Sod,Pork in 0.45% 163.59 NaCl 25,000 unit In 0.45 % NaCl 1 500ml.bag @ 10 UNITS/KG/HR 19.95 mls/hr IV .Q24H [facility] Rx#: [id number] Oral 240 Other: Voiding Method Toilet # Voids 1 Weight 99.79 kg 102.9 kg Patient Weight 03/18/18 06:59 Weight 102.9 kg 03/16/18 20:47 03/17/18 05:41
--- NOTE | 2018-03-17 12:55 | CT ---
CT CHEST FOR PULMONARY EMBOLISM. EXAMINATION TYPE: CT angio chest DATE OF EXAM: 03/17/2018 INDICATION: Chest pain, back pain CT DLP: 782.3 mGycm, Automated exposure control for dose reduction was used. CONTRAST: Patient injected with 100 mL of Isovue 370. COMPARISON: 07/07/2015 TECHNIQUE: CT of the chest is performed on a spiral scan at 2 mm thick sections. Study is performed with intravenous contrast timed for evaluation for pulmonary embolism. This will limit additional po rtions of the evaluation. 3-D MIP images reconstructed by the technologist are reviewed on the compu ter in the coronal and sagittal planes. FINDINGS: No persistent filling defects are evident to suggest an acute pulmonary embolism. No right ventricula r strain is evident. Very minimal reflux into the distal inferior vena cava is present. No mediastinal or hilar adenopathy enlarged by CT criteria is evident. The ascending aorta diameter at the level of the main pulmonary artery is 3.2 cm. The main pulmonary artery diameter at the bifur cation is 2.5 cm. There is a area of increased density within the posterior right lung base measuring 3.5 x 1.3 cm in s ize. Atelectasis and pneumonia could be considered. This could be related to underlying mass. Follow- up is recommended. This was not present in [address] section through the upper abdomen are unremarkable. IMPRESSIONS: 1. No acute pulmonary embolism. 2. Suspected atelectasis at the right lung base. Minimal atelectasis may be at the left lung base. Fo llow-up to clearing is recommended.
--- NOTE | 2018-03-17 13:38 | CT ---
EXAMINATION TYPE: CT cervical spine wo con DATE OF EXAM: 03/17/2018 COMPARISON: 03/18/2016 HISTORY: Chest pain, back pain CT DLP: 203.3 mGycm CONTRAST: None CT of the cervical spine is performed in the axial plane at 2 mm thick sections. Reconstructed image s in the coronal, and sagittal plane are reviewed on the computer. No acute fractures are evident. Vertebral body alignment is normal. Disc heights are preserved. Vertebral body heights are preserved. No spinal canal stenosis is evident No neural foraminal stenosis is evident. IMPRESSIONS: 1. Normal CT cervical spine.
--- NOTE | 2018-03-17 13:40 | CT ---
EXAMINATION TYPE: CT thoracic spine wo con DATE OF EXAM: 03/17/2018 COMPARISON: CTA chest 03/17/2018 HISTORY: Chest pain, back pain CT DLP: Included in CTA chest mGycm Automated exposure control for dose reduction was used. TECHNIQUE: Axial images 2 mm thick sections. Reconstructed images in the coronal and sagittal planes. FINDINGS: The aorta within the [id number] is unremarkable. There is some consolidation in the posterior righ t lung base. Underlying mass is not excluded. These also see CTA chest 03/17/2018. Vertebral body heights are preserved. Disc heights are preserved. Alignment is normal. No spinal oseas l stenosis or foraminal stenosis is present. IMPRESSION: NORMAL CT THORACIC SPINE
[2018-03-17 14:15] LABS: Appearance,Urine Clear (Clear); Bilirubin,Urine Negative (Negative); Blood,Urine Negative (Negative); Color,Urine Light Yellow; Glucose,Urine (UA) Negative (Negative); Ketones,Urine Negative (Negative); Leukocyte Esterase,Urine Negative (Negative); Nitrite,Urine Negative (Negative); Protein,Urine Negative (Negative); Specific Gravity,Urine 1.041 (1.001-1.035); Urobilinogen,Urine <2.0 mg/dL (<2.0)
--- NOTE | 2018-03-17 15:55 | P.PN ---
Subjective Progress Note Date: 03/17/18 (Delayed charting seen at 1100am) Principal diagnosis: Chest pain Patient is a 47-year-old male past medical history of paroxysmal atrial fibrillation, hypertension, and dyslipidemia who presented to the hospital with complaints of chest pain. He had recently been hospitalized from the 03/13/2018 through 03/15/2018 for chest pain. At that point in time he had undergone a stress echo that showed exercise-induced ischemia. Subsequently followed up with cardiac catheterization which showed normal coronary arteries. This also likely has costochondritis. He was discharged home on [place] and Flexeril. He refers that in the hospital with increased pain. His troponins were slightly positive and his CPK was elevated. He adamantly refused that he had done any illicit substances, lift anything heavy, or worked out. He was admitted for further evaluation of his positive troponins. Troponin mildly positive and CPKs in the 2000 range. He was started on IV fluids. Cardiology was consulted. Cardiology feels there may be a component of pericarditis. However ESR and CRP ordered were normal. His CPKs continued to be around 2000 despite aggressive fluid administration. Patient seen and examined at bedside. C/O pain that is worse and now going down his arm. No shortness of breath, no nausea, no vomiting, no sweating. No working out, illicit drug use, moving heavy substances. Objective - Vital Signs Vital signs: Vital Signs Temp 98.1 F 03/17/18 12:00 Pulse 58 L 03/17/18 12:00 Resp 16 03/17/18 12:00 BP 131/68 03/17/18 12:00 Pulse Ox 96 03/17/18 12:00 Intake & Output 03/16/18 03/17/18 03/17/18 18:59 06:59 18:59 Intake Total 403.59 Balance 403.59 Weight 99.79 kg 102.9 kg Intake: Intake, IV Titration 163.59 Amount Heparin Sod,Pork in 0.45% 163.59 NaCl 25,000 unit In 0.45 % NaCl 1 500ml.bag @ 10 UNITS/KG/HR 19.95 mls/hr IV .Q24H [facility] Rx#: [id number] Oral 240 Other: Voiding Method Toilet # Voids 1 - Exam General: non toxic, no distress, appears at stated age Derm: warm, dry Head: atraumatic, normocephalic, symmetric Eyes: EOMI, no lid lag, anicteric sclera Mouth: no lip lesion, mucus membranes moist Cardiovascular: S1S2 reg, no murmur, positive posterior tibial pulse bilateral, Lungs: CTA bilateral, no rhonchi, no rales , no accessory muscle use Abdominal: soft, nontender to palpation, no guarding, no appreciable organomegaly Ext: no gross muscle atrophy, no edema, no contractures Neuro: CN II-XI grossly intact, no focal neuro deficits - + spurlings on the left, + point tenderness over T8 spinous process. Psych: Alert, oriented, appropriate affect - Labs CBC & Chem 7: 03/16/18 20:47 03/17/18 05:41 Labs: Abnormal Lab Results - Last 24 Hours (Table) 03/16/18 03/16/18 03/16/18 Range/Units 20:47 20:47 20:47 WBC 12.4 H (3.8-10.6) k/uL Neutrophils # 8.9 H (1.3-7.7) k/uL APTT (22.0-30.0) sec Glucose 123 H (74-99) mg/dL AST 81 H (17-59) U/L Creatine Kinase (55-170) U/L Total Creatine Kinase 2089 H* (55-170) U/L CK-MB (CK-2) 10.1 H (0.0-2.4) ng/mL Troponin I 0.071 H* (0.000-0.034) ng/mL Ur Specific [place] (1.001-1.035) Urine Opiates Screen (NotDetected) U Marijuana (THC) Screen (NotDetected) 03/17/18 03/17/18 03/17/18 Range/Units 02:57 05:41 05:41 WBC (3.8-10.6) k/uL Neutrophils # (1.3-7.7) k/uL APTT 40.1 H (22.0-30.0) sec Glucose (74-99) mg/dL AST (17-59) U/L Creatine Kinase 1490 H* (55-170) U/L Total Creatine Kinase 1420 H* (55-170) U/L CK-MB (CK-2) 7.4 H (0.0-2.4) ng/mL Troponin I 0.044 H* (0.000-0.034) ng/mL Ur Specific [place] (1.001-1.035) Urine Opiates Screen (NotDetected) U Marijuana (THC) Screen (NotDetected) 03/17/18 03/17/18 03/17/18 Range/Units 09:25 09:29 13:50 WBC (3.8-10.6) k/uL Neutrophils # (1.3-7.7) k/uL APTT (22.0-30.0) sec Glucose (74-99) mg/dL AST (17-59) U/L Creatine Kinase (55-170) U/L Total Creatine Kinase 2149 H* (55-170) U/L CK-MB (CK-2) 7.9 H (0.0-2.4) ng/mL Troponin I (0.000-0.034) ng/mL Ur Specific [place] 1.041 H (1.001-1.035) Urine Opiates Screen Detected H (NotDetected) U Marijuana (THC) Screen Detected H (NotDetected) Assessment and Plan Assessment: Chest pain, pleuritic - ESR and CRP negative, echo pending, cardio recs appreciated, colchicine - rule out Pulmonary embolism- CTA chest is negative - rule out dics disease with CT- CT cervial and thorasic spine without definitive cause - pain control Elevated CPK - UDS negative for cocaine and meth - continue IVF - repeat CPK in 12 hours X 2 - undetermined cause - concern for myositis? ESR only + in 50% of patient with polymyositis, AST elevated, check LDH. check RF, Consider trial steroids and outpatient rheumatology eval and EMG. Tobacco abuse - cessation - nicotine replacement HTN, controlled - continue norvasc, lisinopril, and metoprolol HLD - allergic to statin DVT prophylaxis: SCDs Discussed with: Patient, cardio Anticipated discharge: 24 hours once CPK down treanding Anticipated discharge place: home A total of 35 minutes was spent on the care of this complex patient more than 50 % of the time was spent in counseling and care coordination.
[2018-03-17] MEDS: AMITRIPTYLINE HCL 25 MG TAB PO SCH (20:04)
[2018-03-18] MEDS: MORPHINE SULFATE 4 MG/ML SYRINGE IV PRN ×6 (00:38→22:45)
[2018-03-18] MEDS: SODIUM CHLORIDE 0.9% 1,000 ML IV SCH ×5 (00:39→18:31)
[2018-03-18] MEDS: amLODIPine 10 MG TAB PO SCH (08:20)
[2018-03-18] MEDS: ASPIRIN 81 MG PO SCH (08:20)
[2018-03-18] MEDS: LISINOPRIL 20 MG TAB PO SCH (08:20)
[2018-03-18] MEDS: GABAPENTIN 400 MG CAP PO SCH ×3 (08:20→20:20)
[2018-03-18] MEDS: CYCLOBENZAPRINE 10 MG TAB PO PRN (08:21)
[2018-03-18] MEDS: HYDROcodone/APAP 7.5-325MG 1 EACH TAB PO PRN (08:21)
[2018-03-18] MEDS: METOPROLOL TARTRATE 25 MG TAB PO SCH ×2 (08:21→20:19)
[2018-03-18] MEDS: COLCHICINE 0.6 MG EACH PO SCH (08:25)
--- NOTE | 2018-03-18 10:52 | ECHOF ---
Referral Reason:cp, elevated CK MEASUREMENTS -------- HEIGHT: 175.3 cm WEIGHT: 102.5 kg BP: 131/68 RVIDd: 4.1 cm (< 3.3) IVSd: 1.3 cm (0.6 - 1.1) LVIDd: 4.5 cm (3.9 - 5.3) LVPWd: 1.2 cm (0.6 - 1.1) IVSs: 1.9 cm LVIDs: 3.3 cm LVPWs: 1.8 cm LA Diam: 3.7 cm (2.7 - 3.8) LAESV Index (A-L): 22.87 ml/m Ao Diam: 3.8 cm (2.0 - 3.7) AV Cusp: 2.5 cm (1.5 - 2.6) MV EXCURSION: 14.577 mm (> 18.000) MV EF SLOPE: 86 mm/s (70 - 150) EPSS: 0.9 cm MV E Tawanda: 0.81 m/s MV DecT: 215 ms MV A Tawanda: 0.76 m/s MV E/A Ratio: 1.07 RAP: 5.00 mmHg RVSP: 28.81 mmHg FINDINGS -------- Sinus rhythm. This was a technically good study. The left ventricular size is normal. There is mild concentric left ventricular hypertrophy. Overa ll left ventricular systolic function is normal with, an EF between 55 - 60 %. The right ventricle is moderately enlarged. Normal LA size by volume 22+/-6 ml/m2. The right atrium is normal in size. The aortic valve is trileaflet and appears structurally normal. There is trace to mild mitral regurgitation. Moderate tricuspid regurgitation present. Right ventricular systolic pressure is normal at < 35 mmH g. The pulmonic valve was not well visualized. The aortic root is dilated measuring 3.8cm. Normal inferior vena cava with normal inspiratory collapse consistent with estimated right atrial pre ssure of 5 mmHg. The inferior vena cava is mildly dilated. There is no pericardial effusion. CONCLUSIONS -------- 1. Sinus rhythm. 2. This was a technically good study. 3. The left ventricular size is normal. 4. There is mild concentric left ventricular hypertrophy. 5. Overall left ventricular systolic function is normal with, an EF between 55 - 60 %. 6. The right ventricle is moderately enlarged. 7. Normal LA size by volume 22+/-6 ml/m2. 8. The right atrium is normal in size. 9. The aortic valve is trileaflet and appears structurally normal. 10. There is trace to mild mitral regurgitation. 11. Moderate tricuspid regurgitation present. 12. Right ventricular systolic pressure is normal at < 35 mmHg. 13. The pulmonic valve was not well visualized. 14. The aortic root is dilated measuring 3.8cm. 15. Normal inferior vena cava with normal inspiratory collapse consistent with estimated right atrial pressure of 5 mmHg. 16. The inferior vena cava is mildly dilated. 17. There is no pericardial effusion. DIAMOND SIZER: Viviana Kerr RDCS
[2018-03-18 10:57] LABS: Anion Gap 8 mmol/L; Blood Urea Nitrogen 11 mg/dL (9-20); Calcium 8.8 mg/dL (8.4-10.2); Carbon Dioxide 25 mmol/L (22-30); Chloride 106 mmol/L (98-107); Glucose 85 mg/dL (74-99); Potassium 4.8 mmol/L (3.5-5.1); Sodium 139 mmol/L (137-145)
--- NOTE | 2018-03-18 11:25 | P.PN ---
Subjective Mr. Webb is a pleasant 47-year-old male past medical history significant for hypertension, dyslipidemia, chronic nicotine dependence and regular marijuana use. He has recently established in the office with Dr. Burleson. He was admitted in the hospital last week and underwent a stress test that was abnormal and subsequent cardiac catheterization. The cath revealed normal coronary arteries with no obstructive disease noted. In follow up today he is seen and examined sitting up eating breakfast. He continues to complain of pleuritic chest pain worse with deep inspiration and dull constantly. He states the morphine and norco are helping his pain but not entirely resolving and it comes back once the medications wear off. Laboratory data reviewed, sodium 139, potassium 4.8, creatinine 0.79, CK last night 2250 5 repeat this morning 1383. CRP 5.3 and ESR 6. Blood pressure 114/75 heart rate 60 afebrile maintaining oxygen saturation on room air. CT chest showed no evidence of PE with no right ventricular strain. There was noted to be an increased density noted in the right posterior lung base, underlying mass should be considered. CT of cervical and thoracic spine negative for acute process, fracture or stenosis. Echocardiogram obtained revealed preserved LV systolic function with EF 55-60%, moderate TR and moderately enlarged RV. HEENT: Head is atraumatic, normocephalic. Pupils are equal, round. Sclerae anicteric. Conjunctivae are clear. Mucous membranes of the mouth are moist. Neck is supple. There is no jugular venous distention. No carotid bruit is heard. LUNGS: Clear to auscultation no wheezes, rales or rhonchi. No chest wall tenderness is noted on palpation or with deep breathing. HEART: Regular rate and rhythm without murmurs, rubs or gallops. S1 and S2 heard. EXTREMITIES: No evidence of peripheral edema and no calf tenderness noted. Right wrist site of catheterization clean, dry and intact with no bruising, hematoma or bleeding. Right radial pulse strong. ASSESSMENT Pleuritic chest pain, pericarditis has been ruled out. Mildly elevated troponin, not indicative of an acute event with elevated CK. Leukocytosis Rhabdomyolysis Hypertension Dyslipidemia Chronic nicotine dependence Regular marijuana use PLAN Colchicine can be discontinued. Continue with fluid administration for another 24 hours for persistent elevated CK. We will continue to follow and make recommendations. Nurse Practitioner note has been reviewed, I agree with a documented findings and plan of care. Patient was seen and examined. Objective - Vital Signs Vital signs: Vital Signs Temp 97.9 F 03/18/18 03:36 Pulse 60 03/18/18 03:36 Resp 16 03/18/18 03:36 BP 154/76 03/18/18 03:36 Pulse Ox 99 03/18/18 03:36 Intake & Output 03/17/18 03/18/18 03/18/18 18:59 06:59 18:59 Intake Total 883.59 Balance 883.59 Weight 102.9 kg Intake: Intake, IV Titration 163.59 Amount Heparin Sod,Pork in 0.45% 163.59 NaCl 25,000 unit In 0.45 % NaCl 1 500ml.bag @ 10 UNITS/KG/HR 19.95 mls/hr IV .Q24H [facility] Rx#: [id number] Oral 720 Other: Voiding Method Toilet # Voids 1 - Labs CBC & Chem 7: 03/16/18 20:47 03/18/18 07:14 Labs: Abnormal Lab Results - Last 24 Hours (Table) 03/17/18 03/17/18 03/17/18 Range/Units 09:25 09:29 13:50 Lactate Dehydrogenase (313-618) U/L Creatine Kinase (55-170) U/L Total Creatine Kinase 2149 H* (55-170) U/L CK-MB (CK-2) 7.9 H (0.0-2.4) ng/mL Ur Specific [place] 1.041 H (1.001-1.035) Urine Opiates Screen Detected H (NotDetected) U Marijuana (THC) Screen Detected H (NotDetected) 03/17/18 03/17/18 Range/Units 18:53 18:53 Lactate Dehydrogenase 664 H (313-618) U/L Creatine Kinase 2255 H* (55-170) U/L Total Creatine Kinase (55-170) U/L CK-MB (CK-2) (0.0-2.4) ng/mL Ur Specific [place] (1.001-1.035) Urine Opiates Screen (NotDetected) U Marijuana (THC) Screen (NotDetected)
--- NOTE | 2018-03-18 11:25 | P.DS ---
Providers Date of admission: 03/17/18 16:06 Attending physician: Lesa Nixon MD Consults: 03/16/18 22:30 Consult Physician Urgent Consulting Provider: Jeferson Courtney Consult Reason/Comments: chest pain Do you want consulting provider notified?: Yes Primary care physician: Viktoria Richardson MD Hospital Course: This is a 47-year-old male with a history of hypertension dyslipidemia chronic musculoskeletal pain syndrome who presented with complaint of left-sided chest pain. Please see history and physical for complete details. He described the chest pain in his left parasternal area and then some pain on the left side under the left arm. Pain was sharp and mostly provoked by deep breaths and movements. No positional changes no shortness of breath leg swelling. Been there for few days. Patient was initially prior to this admission seen for this problem in our institution at that point he underwent cardiac catheterization that showed no signs of coronary artery disease. This was his actually coming back to the hospital readmission for the evaluation of this problem. He had CT angiogram that ruled out pulmonary embolism or aortic dissection. He did picked up small lung nodule in the right side. Echocardiogram was essentially unremarkable with normal EF and no signs of pericardial effusion. He did have elevated CPKs in the range of 2000 without any focal muscle pain or any weakness in his upper or lower extremities. This improved after hydration. On the day of discharge he was feeling quite well. He was ambulating in the room without any difficulties. He is pain felt better. Cardiology evaluated the patient and felt that there is no any coronary source of this pain. Echocardiogram was stable and from their standpoint he was acute discharge. He received colchicine yesterday for suspicious of pericarditis. His sedimentation rate was normal. His CPK today is 1300. He received hydration and maintaining excellent urine output. REVIEW OF SYSTEMS: CONSTITUTIONAL: No fever or chills HEENT: No changes in vision or voice CARDIOVASCULAR: no chest pain or abnormal heart beats, or any swelling in ankles or feet. RESPIRATORY: No wheezing or coughing. GASTROINTESTINAL: No abdominal pain, no nausea no vomiting no constipation or diarrhea GENITOURINARY: no any urinary urgency, frequency or burning, and there has been no blood in her urine. no flank pain. MUSCULOSKELETAL: She notes full range of motion of all her joints without pain or swelling. NEUROLOGICAL: , no headache. no vision changes, or fainting. No numbness or tingling. Vital Signs: I have reviewed the vital signs. GENERAL: Well-nourished, Well-developed , no apparent distress, cooperative Eyes: PERRL, extraoculry movements intact, clear conjunctiva Head: : Atraumatic external nose and ears, oropharyngeal mucosa is moist without lesions or exudates Neck: Symmetric, trachea midline, No thyromegaly, no masses or neck vain pulsation, no neck rigidity CVS: +S1/S2, No murmurs or gallops. Peripheral pulses 2+ and equal in all extremities. RESP: Unlabored respiratory effort. Clear to auscultation bilaterally. Abdomen: Bowel sounds present in all 4 quadrants, Soft to palpation, Nontender/ Nondistended, No hepatosplenomegaly, no hernias or masses, no CVA tnderness Musculoskeletal: Extremities w/o deformity, No cyanosis or clubbing, no joint swelling Skin: Warm, Dry. 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 He recommended the patient follow-up with primary care physician regarding obtaining rheumatological consultation to rule out out immune inflammatory myopathies. He does not have any weakness in the day of discharge and ambulating without any difficulties. [place] also I discussed with the patient regarding incidental finding of the right lower lobe lung nodule and that that would require further follow-up to PCP office whether with follow-up imaging or pulmonary evaluation. He returned verbal understanding. Pertinent Studies: CTA chest: No pulmonary embolism, no dissection, small round right lower lobe posterior nodule new since 2016 Echocardiogram: Preserved EF 55-60%, no pleural effusion, no significant valvular disease Patient Condition at Discharge: Good Plan - Discharge Summary Discharge Rx Participant: No New Discharge Prescriptions: Continue Hydrochlorothiazide 25 mg PO DAILY Gabapentin 800 mg PO TID amLODIPine [Norvasc] 10 mg PO DAILY Cyclobenzaprine [Flexeril] 5 mg PO TID PRN #15 tab PRN Reason: Muscle Spasm Lisinopril [Zestril] 40 mg PO DAILY Aspirin EC [Ecotrin Low Dose] 81 mg PO DAILY Amitriptyline HCl [Elavil] 25 mg PO HS HYDROcodone/APAP 7.5-325MG [Gilman 7.5-325] 1 tab PO Q6H PRN PRN Reason: Pain Discharge Medication List Gabapentin 800 mg PO TID 01/10/18 [History] Hydrochlorothiazide 25 mg PO DAILY 01/10/18 [History] amLODIPine [Norvasc] 10 mg PO DAILY 03/13/18 [History] Cyclobenzaprine [Flexeril] 5 mg PO TID PRN #15 tab 03/15/18 [Rx] Amitriptyline HCl [Elavil] 25 mg PO HS 03/16/18 [History] Aspirin EC [Ecotrin Low Dose] 81 mg PO DAILY 03/16/18 [History] HYDROcodone/APAP 7.5-325MG [Gilman 7.5-325] 1 tab PO Q6H PRN 03/16/18 [History] Lisinopril [Zestril] 40 mg PO DAILY 03/16/18 [History] Follow up Appointment(s)/Referral(s): Viktoria Richardson MD [Primary Care Provider] - 1-2 days Patient Instructions/Handouts: Rhabdomyolysis (ED) Care Plan Goals (MU): Follow up with PCP regarding rheumatology evaluation and RLL lung nodule Discharge Disposition: HOME SELF-CARE
[2018-03-18] MEDS: AMITRIPTYLINE HCL 25 MG TAB PO SCH (20:20)
[2018-03-19] MEDS: MORPHINE SULFATE 4 MG/ML SYRINGE IV PRN ×4 (02:46→14:10)
[2018-03-19] MEDS: SODIUM CHLORIDE 0.9% 1,000 ML IV SCH ×2 (06:47→06:48)
[2018-03-19 07:27] LABS: Anion Gap 4 mmol/L; Blood Urea Nitrogen 10 mg/dL (9-20); Calcium 9.1 mg/dL (8.4-10.2); Carbon Dioxide 28 mmol/L (22-30); Chloride 108 mmol/L (98-107); Glucose 88 mg/dL (74-99); Potassium 5.2 mmol/L (3.5-5.1); Sodium 140 mmol/L (137-145)
[2018-03-19 07:30] LABS: Creatine Kinase 1018 U/L (55-170)
[2018-03-19 08:01] VITALS: RESP 18
[2018-03-19] MEDS: amLODIPine 10 MG TAB PO SCH (08:40)
[2018-03-19] MEDS: GABAPENTIN 400 MG CAP PO SCH (08:40)
[2018-03-19] MEDS: LISINOPRIL 20 MG TAB PO SCH (08:40)
[2018-03-19] MEDS: METOPROLOL TARTRATE 25 MG TAB PO SCH (08:41)
[2018-03-19] MEDS: ASPIRIN 81 MG PO SCH (08:41)
[2018-03-19] MEDS ORDERED: SODIUM POLYSTYRENE SULFONATE 15 GM/60 ML BOTTLE PO ONE ×2 (08:51→09:12)
--- NOTE | 2018-03-19 14:59 | P.PN ---
Subjective Mr. Webb is a pleasant 47-year-old male past medical history significant for hypertension, dyslipidemia, chronic nicotine dependence and regular marijuana use. He has recently established in the office with Dr. Burleson. He was admitted in the hospital last week and underwent a stress test that was abnormal and subsequent cardiac catheterization. The cath revealed normal coronary arteries with no obstructive disease noted. In follow up today he is seen sitting up in bed playing on his phone. He continues to complain of 10/10 chest pain that is worse with movement or deep inspiration. Laboratory data reviewed, sodium 140, potassium 5.2, creatinine 0.79. He has been receiving IV fluids since admission. HEENT: Head is atraumatic, normocephalic. Pupils are equal, round. Sclerae anicteric. Conjunctivae are clear. Mucous membranes of the mouth are moist. Neck is supple. There is no jugular venous distention. No carotid bruit is heard. LUNGS: Clear to auscultation no wheezes, rales or rhonchi. No chest wall tenderness is noted on palpation or with deep breathing. HEART: Regular rate and rhythm with gomez systolic murmur at the left sternal border, no rubs or gallops. S1 and S2 heard. EXTREMITIES: No evidence of peripheral edema and no calf tenderness noted. Right wrist site of catheterization clean, dry and intact with no bruising, hematoma or bleeding. Right radial pulse strong. ASSESSMENT Pleuritic chest pain, pericarditis has been ruled out. Mildly elevated troponin, not indicative of an acute event with elevated CK. Leukocytosis Rhabdomyolysis Hypertension Dyslipidemia Chronic nicotine dependence Regular marijuana use PLAN Repeat echocardiogram to assess murmur that wasn't evident of previous exam. Repeat CK in 8 hours, if continues to trend down he may be able to go home today. Nurse Practitioner note has been reviewed, I agree with a documented findings and plan of care. Patient was seen and examined. Objective - Vital Signs Vital signs: Vital Signs Temp 98.1 F 03/19/18 12:00 Pulse 57 L 03/19/18 12:00 Resp 18 03/19/18 12:00 BP 133/82 03/19/18 12:00 Pulse Ox 99 03/19/18 12:00 Intake & Output 03/18/18 03/19/18 03/19/18 18:59 06:59 18:59 Intake Total 1340 1640 662 Balance 1340 1640 662 Intake: Intake, IV Titration 1400 Amount Sodium Chloride 0.9% 1, 1400 000 ml @ 200 mls/hr IV . Q5H [facility] Rx#:[id number] Oral 1040 240 462 Other 300 200 Other: Voiding Method Toilet Toilet Toilet # Voids 3 - Labs CBC & Chem 7: 03/16/18 20:47 03/19/18 06:34 Labs: Abnormal Lab Results - Last 24 Hours (Table) 03/19/18 Range/Units 06:34 Potassium 5.2 H (3.5-5.1) mmol/L Chloride 108 H (98-107) mmol/L Creatine Kinase 1018 H* (55-170) U/L
[2018-03-19 16:00] VITALS: BP 135/77; PULSE 59; TEMP 97.5
[2018-03-19 16:07] LABS: Anion Gap 6 mmol/L; Blood Urea Nitrogen 8 mg/dL (9-20); Calcium 8.5 mg/dL (8.4-10.2); Carbon Dioxide 26 mmol/L (22-30); Chloride 107 mmol/L (98-107); Creatine Kinase 867 U/L (55-170); Glucose 85 mg/dL (74-99); Potassium 4.4 mmol/L (3.5-5.1); Sodium 139 mmol/L (137-145)
--- NOTE | 2018-03-19 18:37 | ECHOF ---
Referral Reason:repeat, murmur MEASUREMENTS -------- HEIGHT: 175.3 cm WEIGHT: 102.5 kg BP: RVIDd: 3.3 cm (< 3.3) IVSd: 1.4 cm (0.6 - 1.1) LVIDd: 4.1 cm (3.9 - 5.3) LVPWd: 1.5 cm (0.6 - 1.1) IVSs: 1.7 cm LVIDs: 3.5 cm LVPWs: 1.4 cm LA Diam: 3.6 cm (2.7 - 3.8) LAESV Index (A-L): 28.80 ml/m Ao Diam: 3.4 cm (2.0 - 3.7) MV EXCURSION: 17.701 mm (> 18.000) MV EF SLOPE: 104 mm/s (70 - 150) EPSS: 0.2 cm MV E Tawanda: 0.75 m/s MV DecT: 258 ms MV A Tawanda: 0.54 m/s MV E/A Ratio: 1.38 RAP: 5.00 mmHg RVSP: 40.70 mmHg FINDINGS -------- Sinus rhythm. This was a technically adequate study. The left ventricular size is normal. There is moderate concentric left ventricular hypertrophy. O verall left ventricular systolic function is low-normal with, an EF between 50 - 55 %. The right ventricle is normal in size. The left atrial size is normal. Normal LA size by volume 22+/-6 ml/m2. The right atrial size is normal. The aortic valve is trileaflet, and appears structurally normal. No aortic stenosis or regurgitation. Mild mitral regurgitation is present. Moderate tricuspid regurgitation present. There is mild pulmonary hypertension. The right ventric ular systolic pressure, as measured by Doppler, is 40.70mmHg. There is no pulmonic regurgitation present. The aortic root size is normal. There is no pericardial effusion. CONCLUSIONS -------- 1. The left ventricular size is normal. 2. There is moderate concentric left ventricular hypertrophy. 3. Overall left ventricular systolic function is low-normal with, an EF between 50 - 55 %. 4. The right ventricle is normal in size. 5. The left atrial size is normal. 6. Normal LA size by volume 22+/-6 ml/m2. 7. The right atrial size is normal. 8. The aortic valve is trileaflet, and appears structurally normal. No aortic stenosis or regurgitati on. 9. Mild mitral regurgitation is present. 10. Moderate tricuspid regurgitation present. 11. There is mild pulmonary hypertension. 12. The right ventricular systolic pressure, as measured by Doppler, is 40.70mmHg. 13. There is no pulmonic regurgitation present. 14. The aortic root size is normal. 15. There is no pericardial effusion. KNIT TUBING DYER: Kaycee Robles RDCS
== END 2018-03-19 18:48 | disposition home or self-care (01) ==
LOC: EC 20:31 → 1SOBS 22:26 → INTOOBSV 03-17 16:06 → OBSVTOIN 03-17 16:06 → UNDODISIN 03-19 18:48
PROVIDERS: ADMIT Internal Medicine; ATTEND Internal Medicine
DX: R07.9 Chest pain, unspecified (principal); R07.81 Pleurodynia; M62.82 Rhabdomyolysis; I27.20 Pulmonary hypertension, unspecified; E78.5 Hyperlipidemia, unspecified; R77.8 Other specified abnormalities of plasma proteins; G89.29 Other chronic pain; R74.8 Abnormal levels of other serum enzymes; D72.829 Elevated white blood cell count, unspecified; R91.1 Solitary pulmonary nodule; I10 Essential (primary) hypertension; F17.200 Nicotine dependence, unspecified, uncomplicated; I48.0 Paroxysmal atrial fibrillation; G62.9 Polyneuropathy, unspecified; G47.9 Sleep disorder, unspecified; G43.909 Migraine, unspecified, not intractable, without status migrainosus; M54.41 Lumbago with sciatica, right side; M54.42 Lumbago with sciatica, left side; I34.0 Nonrheumatic mitral (valve) insufficiency; Z79.82 Long term (current) use of aspirin; Z79.899 Other long term (current) drug therapy; Z87.442 Personal history of urinary calculi; Z88.6 Allergy status to analgesic agent; Z88.8 Allergy status to other drugs, medicaments and biological substances; Z82.49 Family history of ischemic heart disease and other diseases of the circulatory system
CPT/HCPCS: 96361 ×3; 96366 ×3; 96376 ×5; 96365; 96375; 99285; 36415; 93005 ×2; 93306 ×2; 80053; 80048 ×3; 85652; 82550 ×4; 82553 ×3; 83615; 83690; 83735; 84484 ×2; 85025; 85610; 85730 ×2; 86140; 86431; 81003; 80306; 71046; 72128; 72125; 71275; G0378 ×5; J2270 ×4; J1644 ×3; J1885; Q9967

== ENCOUNTER 2018-03-25 13:47 | Emergency (ER) | payer OTHER ==
--- NOTE | 2018-03-25 14:18 | ED ---
Chest Pain HPI - General Chief Complaint: Chest Pain Stated Complaint: Chest pain Time Seen by Provider: 03/25/18 14:05 Source: patient, RN notes reviewed, old records reviewed Mode of arrival: ambulatory Limitations: no limitations - History of Present Illness Initial Comments: Patient is a 47-year-old male presents emergency room due to complaint of 2 weeks of chest pain, shortness of breath. Patient reports that he has been having this pain for the past 2 weeks since his previous admission. Patient states that he is a smoker. He also states that he is homeless. Patient reports that he has had no fevers, but always show still due to the cold. Patient states he has felt nauseated as well. He reports that he has had a cardiac cath done approximately C1 his initial visit. He reports that he stated that it was clean at that time. Patient states that he takes medication for her blood pressure, and also reports his history of paroxysmal A. fib but is not on blood thinners that he states. Patient states that he feels bloated, complains of some minor swelling on both legs. - Related Data Home Medications Medication Instructions Recorded Confirmed Gabapentin 800 mg PO TID 01/10/18 03/25/18 Hydrochlorothiazide 25 mg PO DAILY 01/10/18 03/25/18 amLODIPine [Norvasc] 10 mg PO DAILY 03/13/18 03/25/18 Amitriptyline HCl [Elavil] 25 mg PO HS 03/16/18 03/25/18 Aspirin EC [Ecotrin Low Dose] 81 mg PO DAILY 03/16/18 03/25/18 Lisinopril [Zestril] 20 mg PO DAILY 03/25/18 03/25/18 Allergies Allergy/AdvReac Type Severity Reaction Status Date / Time ibuprofen [From Motrin] AdvReac Nausea & Verified 03/25/18 14:07 Vomiting simvastatin [From Zocor] AdvReac Dizziness Verified 03/25/18 14:07 Review of Systems ROS Statement: Those systems with pertinent positive or pertinent negative responses have been documented in the HPI. ROS Other: All systems not noted in ROS Statement are negative. EKG Findings - EKG Comments: EKG Findings:: EKG performed at 1418 inches were essentially normal arterial for LVH may be normal variant. Borderline EKG noted. Ventricular rate of 70 bpm. Vitals 148 ms. QRS rastafari 94 ms. QT QTc is 46/438 ms. Past Medical History Past Medical History: Atrial Fibrillation, Hyperlipidemia, Hypertension Additional Past Medical History / Comment(s): Pt recently admitted on 03/13/18 with costrochondritis with abnormal stress echo/ normal cardiac cath. Other hx : Chronic pain, chronic low back pain with bilateral sciatica, neuropathy bilateral hands/feet, migraines, partial SBO, kidney stones. History of Any Multi-Drug Resistant Organisms: None Reported Past Surgical History: Heart Catheterization, Orthopedic Surgery Additional Past Surgical History / Comment(s): 03/14/18 Cardiac cath-normal coronaries, L shoulder rotator cuff repair x2, cervical injection. Past Anesthesia/Blood Transfusion Reactions: No Reported Reaction Past Psychological History: No Psychological Hx Reported Smoking Status: Current every day smoker Past Alcohol Use History: Occasional Past Drug Use History: Marijuana - Past Family History Father Family Medical History: Myocardial Infarction ([place]) Additional Family Medical History / Comment(s): mi at age 35, still living Mother Family Medical History: Myocardial Infarction ([place]) Additional Family Medical History / Comment(s): Mother has had at least one [place]- pt unsure at what age. He has not had much contact with his mother since he was 17 yrs old. General Exam - General Exam Comments Initial Comments: This patient's a 47-year-old male. Alert and oriented. Patient appears in no significant distress. Limitations: no limitations General appearance: alert, in no apparent distress Head exam: Present: atraumatic Eye exam: Present: normal appearance, PERRL, EOMI. Absent: scleral icterus, conjunctival injection, periorbital swelling ENT exam: Present: normal exam, mucous membranes moist Neck exam: Present: normal inspection. Absent: tenderness, meningismus, lymphadenopathy Respiratory exam: Present: normal lung sounds bilaterally. Absent: respiratory distress, wheezes, rales, rhonchi, stridor Cardiovascular Exam: Present: regular rate, normal rhythm, normal heart sounds. Absent: systolic murmur, diastolic murmur, rubs, gallop, clicks GI/Abdominal exam: Present: soft, normal bowel sounds. Absent: distended, tenderness, guarding, rebound, rigid Extremities exam: Present: normal inspection, full ROM, normal capillary refill. Absent: tenderness, pedal edema, joint swelling, calf tenderness Back exam: Present: normal inspection Course Vital Signs 11/03/25/18 03/25/18 13:56 14:51 14:57 Temperature 98.1 F Pulse Rate 96 70 68 Respiratory 18 Rate Blood Pressure 131/79 O2 Sat by Pulse 99 Oximetry 03/25/18 03/25/18 03/25/18 15:16 16:07 16:49 Temperature 97.1 F L Pulse Rate 76 83 90 Respiratory 18 18 16 Rate Blood Pressure 128/79 134/80 127/91 O2 Sat by Pulse 99 100 100 Oximetry Chest Pain MDM - MDM 47 year old male, presents with 2 weeks of chest pain. At this time EKG, troponin are negative. Patient labs are improved. He had clear cardiac cath early this month. Discussed low risk and patient can follow upw h PCP. Patient understands treatment plan and will comply Disposition Clinical Impression: Chest pain Disposition: HOME SELF-CARE Condition: Good Instructions: Chest Pain (ED) Additional Instructions: Patient has follow-up with primary care provider. Return to the emergency department if any alarming signs or symptoms occur. Is patient prescribed a controlled substance at d/c from ED?: No Referrals: Viktoria Richardson MD [Primary Care Provider] - 1-2 days Time of Disposition: 16:42
[2018-03-25] MEDS ORDERED: IPRATROPIUM-ALBUTEROL 3 ML NEB INHALATION STA (14:27)
[2018-03-25 14:55] LABS: Basophils % (A) 0 %; Eosinophils # (A) 0.2 k/uL (0-0.7); Eosinophils % (A) 2 %; HCT 39.5 % (39.0-53.0); Lymphocytes % (A) 14 %; MCH 32.2 pg (25.0-35.0); MCHC 35.4 g/dL (31.0-37.0); MCV 91.1 fL (80.0-100.0); Mean Platelet Volume 7.8; Monocytes # (A) 0.5 k/uL (0-1.0); Monocytes % (A) 7 %; Neutrophils # (A) 5.5 k/uL (1.3-7.7); Neutrophils % (A) 75 %; Platelet Count 233 k/uL (150-450); RBC 4.33 m/uL (4.30-5.90); RDW 14.2 % (11.5-15.5); WBC 7.3 k/uL (3.8-10.6)
[2018-03-25 15:01] LABS: Partial Thromboplastin Time 22.8 sec (22.0-30.0); Prothrombin Time 10.2 sec (9.0-12.0)
[2018-03-25 15:02] LABS: ALT 41 U/L (21-72); AST 34 U/L (17-59); Alkaline Phosphatase 66 U/L (38-126); Anion Gap 8 mmol/L; Blood Urea Nitrogen 16 mg/dL (9-20); Calcium 9.5 mg/dL (8.4-10.2); Carbon Dioxide 24 mmol/L (22-30); Chloride 109 mmol/L (98-107); Glucose 96 mg/dL (74-99); Magnesium 1.9 mg/dL (1.6-2.3); Potassium 4.5 mmol/L (3.5-5.1); Sodium 141 mmol/L (137-145); Total Bilirubin 0.8 mg/dL (0.2-1.3)
[2018-03-25 15:10] LABS: Creatine Kinase 381 U/L (55-170)
[2018-03-25 15:23] LABS: Creatine Kinase MB 1.8 ng/mL (0.0-2.4); Troponin I <0.012 ng/mL (0.000-0.034)
--- NOTE | 2018-03-25 15:39 | XR ---
EXAMINATION TYPE: XR chest 2V DATE OF EXAM: 03/25/2018 COMPARISON: Prior chest x-ray 03/20/2018 HISTORY: Chest pain TECHNIQUE: Frontal and lateral views of the chest are obtained. FINDINGS: There is no focal air space opacity, pleural effusion, or pneumothorax seen. The cardiac silhouette size is within normal limits. The osseous structures are intact. IMPRESSION: No acute cardiopulmonary process.
[2018-03-25] MEDS ORDERED: MAG HYDROX/AL HYDROX/SIMETH 30 ML, HYOSCYAMINE ELIXIR 10 ML, CIMETIDINE HCL 300 MG, LID... PO STA ×4 (15:59)
[2018-03-25 16:50] VITALS: BP 127/91; PULSE 90; RESP 16; TEMP 97.1
== END 2018-03-25 16:49 | disposition home or self-care (01) ==
LOC: EC 13:47
DX: R07.9 Chest pain, unspecified (principal); R06.02 Shortness of breath; R11.0 Nausea; R14.0 Abdominal distension (gaseous); M79.89 Other specified soft tissue disorders; I10 Essential (primary) hypertension; G62.9 Polyneuropathy, unspecified; F17.200 Nicotine dependence, unspecified, uncomplicated; Z59.0 Homelessness; Z87.442 Personal history of urinary calculi; Z98.890 Other specified postprocedural states; Z79.82 Long term (current) use of aspirin; Z79.899 Other long term (current) drug therapy; Z88.6 Allergy status to analgesic agent; Z88.8 Allergy status to other drugs, medicaments and biological substances
CPT/HCPCS: 36415; 71046; 80053; 82550; 82553; 83735; 83880; 84484; 85025; 85610; 85730; 93005; 94640; 99285

== ENCOUNTER 2018-03-27 02:26 | Emergency (ER) | payer OTHER ==
--- NOTE | 2018-03-27 03:06 | ED ---
Chest Pain HPI - General Chief Complaint: Chest Pain Stated Complaint: Chest Pain, foot pain Time Seen by Provider: 03/27/18 02:38 Source: patient, RN notes reviewed, old records reviewed Mode of arrival: wheelchair Limitations: no limitations - History of Present Illness Initial Comments: Patient is a [age]-year-old male, well-known to this ER presents emergency Department again today for chief complaint of chest pain. Patient was seen once today at [facility] and had a full evaluation for chest pain and was discharged. Patient is homeless. Patient states that he has been having worsening chest pain. He relates that he also has sores over his feet due to walking in the cold. Patient states that he did have a normal cardiac cath completed 2 weeks ago. Patient states that he has had no fevers or chills. Denies any cough or so she did shortness of breath. - Related Data Home Medications Medication Instructions Recorded Confirmed Gabapentin 800 mg PO TID 01/10/18 03/25/18 Hydrochlorothiazide 25 mg PO DAILY 01/10/18 03/25/18 amLODIPine [Norvasc] 10 mg PO DAILY 03/13/18 03/25/18 Amitriptyline HCl [Elavil] 25 mg PO HS 03/16/18 03/25/18 Aspirin EC [Ecotrin Low Dose] 81 mg PO DAILY 03/16/18 03/25/18 Lisinopril [Zestril] 20 mg PO DAILY 03/25/18 03/25/18 Allergies Allergy/AdvReac Type Severity Reaction Status Date / Time ibuprofen [From Motrin] AdvReac Nausea & Verified 03/25/18 14:07 Vomiting simvastatin [From Zocor] AdvReac Dizziness Verified 03/25/18 14:07 Review of Systems ROS Statement: Those systems with pertinent positive or pertinent negative responses have been documented in the HPI. ROS Other: All systems not noted in ROS Statement are negative. EKG Findings - EKG Comments: EKG Findings:: Patient EKG performed at 240 shows normal sinus rhythm with PACs. Minimal voltage criteria for LVH. Cannot rule out inferior infarct age undetermined. Ventricular rate of 83 bpm. MS interval is 158 ms. QRS duration 86 ms. QT QTc is 412/484 ms. Past Medical History Past Medical History: Atrial Fibrillation, Hyperlipidemia, Hypertension Additional Past Medical History / Comment(s): Pt recently admitted on 03/13/18 with costrochondritis with abnormal stress echo/ normal cardiac cath. Other hx : Chronic pain, chronic low back pain with bilateral sciatica, neuropathy bilateral hands/feet, migraines, partial SBO, kidney stones. History of Any Multi-Drug Resistant Organisms: None Reported Past Surgical History: Heart Catheterization, Orthopedic Surgery Additional Past Surgical History / Comment(s): 03/14/18 Cardiac cath-normal coronaries, L shoulder rotator cuff repair x2, cervical injection. Past Anesthesia/Blood Transfusion Reactions: No Reported Reaction Past Psychological History: No Psychological Hx Reported Smoking Status: Current every day smoker Past Alcohol Use History: None Reported, Occasional Past Drug Use History: None Reported, Marijuana - Past Family History Father Family Medical History: Myocardial Infarction ([place]) Additional Family Medical History / Comment(s): mi at age 35, still living Mother Family Medical History: Myocardial Infarction ([place]) Additional Family Medical History / Comment(s): Mother has had at least one [place]- pt unsure at what age. He has not had much contact with his mother since he was 17 yrs old. General Exam - General Exam Comments Initial Comments: 47-year-old male. Alert and oriented 3. Patient appears in no acute distress. Limitations: no limitations General appearance: alert, in no apparent distress Head exam: Present: atraumatic, normocephalic, normal inspection Eye exam: Present: normal appearance, PERRL, EOMI. Absent: scleral icterus, conjunctival injection, periorbital swelling ENT exam: Present: normal exam, mucous membranes moist Neck exam: Present: normal inspection. Absent: tenderness, meningismus, lymphadenopathy Respiratory exam: Present: normal lung sounds bilaterally. Absent: respiratory distress, wheezes, rales, rhonchi, stridor Cardiovascular Exam: Present: regular rate, normal rhythm, normal heart sounds. Absent: systolic murmur, diastolic murmur, rubs, gallop, clicks GI/Abdominal exam: Present: soft, normal bowel sounds. Absent: distended, tenderness, guarding, rebound, rigid Extremities exam: Present: normal inspection, full ROM, normal capillary refill , other (Blisters over bilateral feet.). Absent: tenderness, pedal edema, joint swelling, calf tenderness Back exam: Present: normal inspection Neurological exam: Present: alert, oriented X3, CN II-XII intact Psychiatric exam: Present: normal affect, normal mood Skin exam: Present: warm, dry, intact, normal color. Absent: rash Course Vital Signs 03/27/18 03/27/18 02:27 03:34 Temperature 96.9 F L Pulse Rate 94 Respiratory 16 18 Rate Blood Pressure 133/86 O2 Sat by Pulse 100 Oximetry Chest Pain MDM - MDM Patient is a 47-year-old male presents emergency today with chest pain. He was seen earlier today at [facility]. He was discharged at that time after extensive workup. I reviewed the medical chart. Abnormal troponin. That time he did have a mildly elevated d-dimer and he completed a CT of his chest. CT chest shows no signs of consolidation. No pleural effusion. Slight coarsening of interstitial markings. Heart was normal size. No pericardial effusion. No filling defects in the pulmonary arteries. There is no signs of PE. Aorta appeared normal. No signs of mediastinal adenopathy. At this time patient's EKG was reviewed and negative for any acute changes. Troponin was normal. Patient's blood work otherwise is unremarkable. Patient's Emergency Department. Patient's Main Complaint Is Wanting to Get Out Of the Cold I Believe. I Discussed the Patient She Needs to Follow-Up with His PCP. He Has an Appointment This Week. He Also Plans to Find a Half-Way Stay with in the Next Week As Well As to start a new job. Disposition Clinical Impression: Chest pain, Friction blister of the foot Disposition: HOME SELF-CARE Condition: Good Instructions: Chest Pain (ED) Additional Instructions: Patient advised to follow-up with PCP. Return to emergency department if any alarming signs or symptoms occur. Is patient prescribed a controlled substance at d/c from ED?: No Referrals: Viktoria Richardson MD [Primary Care Provider] - 1-2 days Time of Disposition: 04:01
[2018-03-27 03:10] LABS: Basophils % (A) 0 %; Eosinophils # (A) 0.1 k/uL (0-0.7); Eosinophils % (A) 1 %; HCT 39.7 % (39.0-53.0); HGB 13.5 gm/dL (13.0-17.5); Lymphocytes # (A) 0.5 k/uL (1.0-4.8); Lymphocytes % (A) 6 %; MCH 31.5 pg (25.0-35.0); MCV 92.7 fL (80.0-100.0); Monocytes # (A) 0.1 k/uL (0-1.0); Monocytes % (A) 1 %; Neutrophils # (A) 7.7 k/uL (1.3-7.7); Neutrophils % (A) 92 %; Platelet Count 267 k/uL (150-450); RBC 4.28 m/uL (4.30-5.90); RDW 14.6 % (11.5-15.5); WBC 8.4 k/uL (3.8-10.6)
[2018-03-27 03:20] LABS: ALT 31 U/L (21-72); AST 25 U/L (17-59); Albumin 4.1 g/dL (3.5-5.0); Alkaline Phosphatase 73 U/L (38-126); Anion Gap 9 mmol/L; Blood Urea Nitrogen 10 mg/dL (9-20); Calcium 9.2 mg/dL (8.4-10.2); Carbon Dioxide 20 mmol/L (22-30); Chloride 107 mmol/L (98-107); Glucose 132 mg/dL (74-99); Magnesium 1.7 mg/dL (1.6-2.3); Potassium 4.4 mmol/L (3.5-5.1); Sodium 136 mmol/L (137-145); Total Bilirubin 0.8 mg/dL (0.2-1.3); Total Protein 7.3 g/dL (6.3-8.2)
[2018-03-27 03:22] LABS: INR 1.1 (<1.2); Partial Thromboplastin Time 23.8 sec (22.0-30.0); Prothrombin Time 10.5 sec (9.0-12.0)
[2018-03-27 03:26] LABS: Creatine Kinase 209 U/L (55-170)
[2018-03-27 03:35] VITALS: RESP 18
[2018-03-27 03:39] LABS: Creatine Kinase MB 1.6 ng/mL (0.0-2.4); Troponin I <0.012 ng/mL (0.000-0.034)
[2018-03-27 04:46] VITALS: BP 142/87; PULSE 74; TEMP 98.6
== END 2018-03-27 04:15 | disposition home or self-care (01) ==
LOC: EC 02:26
DX: R07.9 Chest pain, unspecified (principal); S90.822A Blister (nonthermal), left foot, initial encounter; S90.821A Blister (nonthermal), right foot, initial encounter; G62.9 Polyneuropathy, unspecified; I10 Essential (primary) hypertension; F17.200 Nicotine dependence, unspecified, uncomplicated; Z59.0 Homelessness; Z98.890 Other specified postprocedural states; Z79.82 Long term (current) use of aspirin; Z79.899 Other long term (current) drug therapy; Z88.6 Allergy status to analgesic agent; Z88.8 Allergy status to other drugs, medicaments and biological substances; X58.XXXA Exposure to other specified factors, initial encounter
CPT/HCPCS: 36415; 80053; 82550; 82553; 83735; 84484; 85025; 85610; 85730; 93005; 99285

== ENCOUNTER 2018-03-29 11:48 | Inpatient (IN) | payer MEDICAID, OTHER ==
[2018-03-29] MEDS ORDERED: SODIUM CHLORIDE 0.9% 1,000 ML IV STA (13:16)
[2018-03-29] MEDS ORDERED: ACTIVATED CHARCOAL-SORBITOL 50 GM/240 ML BOTTLE PO STA (13:16)
--- NOTE | 2018-03-29 13:17 | ED ---
Psych HPI - General Chief Complaint: Psychiatric Symptoms Stated Complaint: suicidal Time Seen by Provider: 03/29/18 12:20 Source: patient, RN notes reviewed, old records reviewed Mode of arrival: ambulatory - History of Present Illness Initial Comments: This is a 47-year-old male the ER for evaluation. Patient recently of psychiatric illness, overdose. Patient has history of psychiatric illness with multiple ER visits. Patient states he is homeless significant living in the colon took overdose of Elavil 30 pills. Likely other drugs or alcohol MD Complaint: suicidal ideation, feels depressed -: days(s) Associated Psychiatric Symptoms: depression, suicidal ideation History of same: Yes Quality: constant Improves With: none Worsens With: drug use Context: not taking psychiatric medications Associated Symptoms: denies other symptoms - Related Data Home Medications Medication Instructions Recorded Confirmed Gabapentin 800 mg PO TID 01/10/18 03/29/18 Hydrochlorothiazide 25 mg PO DAILY 01/10/18 03/29/18 amLODIPine [Norvasc] 10 mg PO DAILY 03/13/18 03/29/18 Amitriptyline HCl [Elavil] 25 mg PO HS 03/16/18 03/29/18 Aspirin EC [Ecotrin Low Dose] 81 mg PO DAILY 03/16/18 03/29/18 Lisinopril [Zestril] 20 mg PO DAILY 03/25/18 03/29/18 Allergies Allergy/AdvReac Type Severity Reaction Status Date / Time ibuprofen [From Motrin] AdvReac Nausea & Verified 03/29/18 14:12 Vomiting simvastatin [From Zocor] AdvReac Dizziness Verified 03/29/18 14:12 Review of Systems ROS Statement: Those systems with pertinent positive or pertinent negative responses have been documented in the HPI. ROS Other: All systems not noted in ROS Statement are negative. Past Medical History Past Medical History: Atrial Fibrillation, Hyperlipidemia, Hypertension Additional Past Medical History / Comment(s): Pt recently admitted on 03/13/18 with costrochondritis with abnormal stress echo/ normal cardiac cath. Other hx : Chronic pain, chronic low back pain with bilateral sciatica, neuropathy bilateral hands/feet, migraines, partial SBO, kidney stones. History of Any Multi-Drug Resistant Organisms: None Reported Past Surgical History: Heart Catheterization, Orthopedic Surgery Additional Past Surgical History / Comment(s): 03/14/18 Cardiac cath-normal coronaries, L shoulder rotator cuff repair x2, cervical injection. Past Anesthesia/Blood Transfusion Reactions: No Reported Reaction Past Psychological History: No Psychological Hx Reported Smoking Status: Current every day smoker Past Alcohol Use History: None Reported, Occasional Past Drug Use History: None Reported, Marijuana - Past Family History Father Family Medical History: Myocardial Infarction ([place]) Additional Family Medical History / Comment(s): mi at age 35, still living Mother Family Medical History: Myocardial Infarction ([place]) Additional Family Medical History / Comment(s): Mother has had at least one [place]- pt unsure at what age. He has not had much contact with his mother since he was 17 yrs old. General Exam Limitations: no limitations General appearance: alert, in no apparent distress Head exam: Present: atraumatic, normocephalic, normal inspection Eye exam: Present: normal appearance, PERRL, EOMI. Absent: scleral icterus, conjunctival injection, periorbital swelling ENT exam: Present: normal exam, mucous membranes moist Neck exam: Present: normal inspection. Absent: tenderness, meningismus, lymphadenopathy Respiratory exam: Present: normal lung sounds bilaterally. Absent: respiratory distress, wheezes, rales, rhonchi, stridor Cardiovascular Exam: Present: regular rate, normal rhythm, normal heart sounds. Absent: systolic murmur, diastolic murmur, rubs, gallop, clicks GI/Abdominal exam: Present: soft, normal bowel sounds. Absent: distended, tenderness, guarding, rebound, rigid Extremities exam: Present: normal inspection, full ROM, normal capillary refill. Absent: tenderness, pedal edema, joint swelling, calf tenderness Back exam: Present: normal inspection Neurological exam: Present: alert, oriented X3, CN II-XII intact Psychiatric exam: Present: normal affect, normal mood Skin exam: Present: warm, dry, intact, normal color. Absent: rash Course Vital Signs 03/29/18 12:08 Temperature 97.9 F Pulse Rate 95 Respiratory 18 Rate Blood Pressure 113/75 O2 Sat by Pulse 99 Oximetry - Reevaluation(s) Reevaluation #1: 03/29/18 15:55 Patient is medically clear for psychiatric evaluation Medical Decision Making - Medical Decision Making 47 male who was seen and evaluated by psychiatry here in the ER, patient can be admitted for psychiatric evaluation - Lab Data Result diagrams: 03/29/18 13:35 03/29/18 13:35 Lab Results 03/29/18 03/29/18 03/29/18 Range/Units 13:35 13:35 13:35 WBC 7.1 (3.8-10.6) k/uL RBC 4.81 (4.30-5.90) m/uL Hgb 15.4 (13.0-17.5) gm/dL Hct 43.6 (39.0-53.0) % MCV 90.6 (80.0-100.0) fL MCH 32.0 (25.0-35.0) pg MCHC 35.3 (31.0-37.0) g/dL RDW 14.1 (11.5-15.5) % Plt Count 277 (150-450) k/uL Neutrophils % 67 % Lymphocytes % 21 % Monocytes % 7 % Eosinophils % 4 % Basophils % 1 % Neutrophils # 4.7 (1.3-7.7) k/uL Lymphocytes # 1.5 (1.0-4.8) k/uL Monocytes # 0.5 (0-1.0) k/uL Eosinophils # 0.3 (0-0.7) k/uL Basophils # 0.1 (0-0.2) k/uL PT (9.0-12.0) sec INR (<1.2) Sodium 139 (137-145) mmol/L Potassium 4.1 (3.5-5.1) mmol/L Chloride 104 (98-107) mmol/L Carbon Dioxide 24 (22-30) mmol/L Anion Gap 11 mmol/L BUN 11 (9-20) mg/dL Creatinine 0.69 (0.66-1.25) mg/dL Est GFR (CKD-EPI)AfAm >90 (>60 ml/min/1.73 sqM) Est GFR (CKD-EPI)NonAf >90 (>60 ml/min/1.73 sqM) Glucose 84 (74-99) mg/dL Calcium 9.6 (8.4-10.2) mg/dL Total Bilirubin 0.7 (0.2-1.3) mg/dL AST 26 (17-59) U/L ALT 25 (21-72) U/L Alkaline Phosphatase 73 (38-126) U/L Total Creatine Kinase 137 (55-170) U/L CK-MB (CK-2) 1.6 (0.0-2.4) ng/mL CK-MB (CK-2) Rel Index 1.2 Total Protein 7.8 (6.3-8.2) g/dL Albumin 4.4 (3.5-5.0) g/dL Salicylates <1.0 mg/dL Acetaminophen <10.0 ug/mL Serum Alcohol <10 mg/dL 03/29/18 Range/Units 13:35 WBC (3.8-10.6) k/uL RBC (4.30-5.90) m/uL Hgb (13.0-17.5) gm/dL Hct (39.0-53.0) % MCV (80.0-100.0) fL MCH (25.0-35.0) pg MCHC (31.0-37.0) g/dL RDW (11.5-15.5) % Plt Count (150-450) k/uL Neutrophils % % Lymphocytes % % Monocytes % % Eosinophils % % Basophils % % Neutrophils # (1.3-7.7) k/uL Lymphocytes # (1.0-4.8) k/uL Monocytes # (0-1.0) k/uL Eosinophils # (0-0.7) k/uL Basophils # (0-0.2) k/uL PT 10.4 (9.0-12.0) sec INR 1.1 (<1.2) Sodium (137-145) mmol/L Potassium (3.5-5.1) mmol/L Chloride (98-107) mmol/L Carbon Dioxide (22-30) mmol/L Anion Gap mmol/L BUN (9-20) mg/dL Creatinine (0.66-1.25) mg/dL Est GFR (CKD-EPI)AfAm (>60 ml/min/1.73 sqM) Est GFR (CKD-EPI)NonAf (>60 ml/min/1.73 sqM) Glucose (74-99) mg/dL Calcium (8.4-10.2) mg/dL Total Bilirubin (0.2-1.3) mg/dL AST (17-59) U/L ALT (21-72) U/L Alkaline Phosphatase (38-126) U/L Total Creatine Kinase (55-170) U/L CK-MB (CK-2) (0.0-2.4) ng/mL CK-MB (CK-2) Rel Index Total Protein (6.3-8.2) g/dL Albumin (3.5-5.0) g/dL Salicylates mg/dL Acetaminophen ug/mL Serum Alcohol mg/dL - EKG Data -: EKG Interpreted by Me (EKG shows sinus rhythm rate of 60, ME 156, QRS 96, QTc 435) Disposition Clinical Impression: Depression, Attempted suicide, Suicidal ideation Disposition: TRANSFER TO PSYCH HOSP/UNIT Condition: Fair Is patient prescribed a controlled substance at d/c from ED?: No Referrals: Viktoria Richardson MD [Primary Care Provider] - 1-2 days
[2018-03-29 13:57] LABS: Basophils # (A) 0.1 k/uL (0-0.2); Basophils % (A) 1 %; Eosinophils # (A) 0.3 k/uL (0-0.7); Eosinophils % (A) 4 %; HCT 43.6 % (39.0-53.0); HGB 15.4 gm/dL (13.0-17.5); Lymphocytes # (A) 1.5 k/uL (1.0-4.8); Lymphocytes % (A) 21 %; MCHC 35.3 g/dL (31.0-37.0); MCV 90.6 fL (80.0-100.0); Mean Platelet Volume 7.9; Monocytes # (A) 0.5 k/uL (0-1.0); Monocytes % (A) 7 %; Neutrophils # (A) 4.7 k/uL (1.3-7.7); Neutrophils % (A) 67 %; Platelet Count 277 k/uL (150-450); RBC 4.81 m/uL (4.30-5.90); RDW 14.1 % (11.5-15.5); WBC 7.1 k/uL (3.8-10.6)
[2018-03-29 14:06] LABS: INR 1.1 (<1.2); Prothrombin Time 10.4 sec (9.0-12.0)
[2018-03-29 14:18] LABS: ALT 25 U/L (21-72); AST 26 U/L (17-59); Acetaminophen <10.0 ug/mL; Albumin 4.4 g/dL (3.5-5.0); Alcohol <10 mg/dL; Alkaline Phosphatase 73 U/L (38-126); Anion Gap 11 mmol/L; Blood Urea Nitrogen 11 mg/dL (9-20); Calcium 9.6 mg/dL (8.4-10.2); Carbon Dioxide 24 mmol/L (22-30); Chloride 104 mmol/L (98-107); Glucose 84 mg/dL (74-99); Potassium 4.1 mmol/L (3.5-5.1); Salicylate <1.0 mg/dL; Sodium 139 mmol/L (137-145); Total Bilirubin 0.7 mg/dL (0.2-1.3); Total Protein 7.8 g/dL (6.3-8.2)
[2018-03-29 14:42] LABS: Creatine Kinase MB 1.6 ng/mL (0.0-2.4)
[2018-03-29 16:31] LABS: Appearance,Urine Clear (Clear); Bilirubin,Urine Negative (Negative); Blood,Urine Negative (Negative); Color,Urine Yellow; Glucose,Urine (UA) Negative (Negative); Ketones,Urine Trace (Negative); Leukocyte Esterase,Urine Negative (Negative); Nitrite,Urine Negative (Negative); PH, Urine 6.5 (5.0-8.0); Protein,Urine Trace (Negative); Urobilinogen,Urine <2.0 mg/dL (<2.0)
[2018-03-29 16:38] LABS: Cocaine Screen,Urine Not Detected (NotDetected); Phencyclidine Screen,Urine Not Detected (NotDetected); Urn Cannabinoid Scrn Detected (NotDetected)
[2018-03-29 16:39] LABS: Amphetamine Screen,Urine Detected (NotDetected); Barbiturate Screen,Urine Not Detected (NotDetected); Benzodiazepines Screen,Urine Not Detected (NotDetected); Methadone Screen, Urine Not Detected (NotDetected); Opiate Screen,Urine Not Detected (NotDetected); Oxycodone Screen, Urine Not Detected (NotDetected); Tricyclic Antidepressant,Urine Detected (NotDetected)
[2018-03-29 17:21] VITALS: BMI 31.1
[2018-03-29] MEDS ORDERED: MAGNESIUM HYDROXIDE 2,400 MG/10 ML CUP PO PRN (17:56)
[2018-03-29] MEDS ORDERED: ZIPRASIDONE 20 MG VIAL IM PRN (17:56)
--- NOTE | 2018-03-29 20:15 | P.MDCNMH ---
History of Present Illness Chief Complaint: Depression This is a 47-year-old male who has history of diabetes mellitus, hypertension and depression who was admitted to mental health unit with complaint of worsening depression and suicidal ideation. Patient states that he was diagnosed with depression and anxiety about 20 years ago and since then he's been on various treatments. He's been hospitalized in the past and the mental health unit because of depression. Most currently he started reporting worsening depression mood I he Renetta poor appetite and call the crisis line with statement that he feels like he wants to overdose on amitriptyline is home medication. Crisis line managed patient to throw away the medication and come to emergency department he was subsequently admitted yesterday. Otherwise patient states that he has diabetes mellitus that was diagnosed with its several years ago and he's been on metformin as been working very well for him. He does not have any regular follow-ups right now but usually follows up with primary care doctor in [facility]. He also states he has history of hypertension for which he takes "some pills". He is able to recognize lisinopril but he is not sure if he is taking amlodipine and hydrochlorothiazide. He also states that he takes baby aspirin but didn't refill his latest prescription. He also reports taking Lipitor for hypercholesterolemia. He denies any heart lungs problems or renal problems that he is aware of. He reports that he had a stress test several years ago that was normal. He does smoke but denies any history of asthma or bronchitis. Review of Systems REVIEW OF SYSTEMS: CONSTITUTIONAL: No fever or chills HEENT: No changes in vision or voice CARDIOVASCULAR: no chest pain or abnormal heart beats, or any swelling in ankles or feet. RESPIRATORY: No wheezing or coughing. GASTROINTESTINAL: No abdominal pain, no nausea no vomiting no constipation or diarrhea GENITOURINARY: no any urinary urgency, frequency or burning, and there has been no blood in her urine. no flank pain. MUSCULOSKELETAL: She notes full range of motion of all her joints without pain or swelling. NEUROLOGICAL: , no headache. no vision changes, or fainting. No numbness or tingling. Past Medical History Past Medical History: Atrial Fibrillation, Hyperlipidemia, Hypertension Additional Past Medical History / Comment(s): Pt recently admitted on 03/13/18 with costrochondritis with abnormal stress echo/ normal cardiac cath. Other hx : Chronic pain, chronic low back pain with bilateral sciatica, neuropathy bilateral hands/feet, migraines, partial SBO, kidney stones. History of Any Multi-Drug Resistant Organisms: None Reported Past Surgical History: Heart Catheterization, Orthopedic Surgery Additional Past Surgical History / Comment(s): 03/14/18 Cardiac cath-normal coronaries, L shoulder rotator cuff repair x2, cervical injection. Past Anesthesia/Blood Transfusion Reactions: No Reported Reaction Past Psychological History: No Psychological Hx Reported Smoking Status: Current every day smoker Past Alcohol Use History: None Reported, Occasional Additional Past Alcohol Use History / Comment(s): Started smoking at age 15- smoked 1 ppd but recently has cut down to 5-6 cigarettes a day. Past Drug Use History: None Reported, Marijuana Additional Drug Use History / Comment(s): Pt states he has not smoked marijuana in 2 weeks. - Past Family History Father Family Medical History: Myocardial Infarction ([place]) Additional Family Medical History / Comment(s): mi at age 35, still living Mother Family Medical History: Myocardial Infarction ([place]) Additional Family Medical History / Comment(s): Mother has had at least one [place]- pt unsure at what age. He has not had much contact with his mother since he was 17 yrs old. Medications and Allergies Home Medications Medication Instructions Recorded Confirmed Type Gabapentin 800 mg PO TID 01/10/18 03/29/18 History Hydrochlorothiazide 25 mg PO DAILY 01/10/18 03/29/18 History amLODIPine [Norvasc] 10 mg PO DAILY 03/13/18 03/29/18 History Amitriptyline HCl [Elavil] 25 mg PO HS 03/16/18 03/29/18 History Aspirin EC [Ecotrin Low Dose] 81 mg PO DAILY 03/16/18 03/29/18 History Lisinopril [Zestril] 20 mg PO DAILY 03/25/18 03/29/18 History Allergies Allergy/AdvReac Type Severity Reaction Status Date / Time ibuprofen [From Motrin] AdvReac Nausea & Verified 03/29/18 14:12 Vomiting simvastatin [From Zocor] AdvReac Dizziness Verified 03/29/18 14:12 Physical Exam Vitals: Vital Signs Temp Pulse Pulse Resp BP BP Pulse Ox 03/29/18 17:13 98.6 F 94 16 125/97 98 03/29/18 12:08 97.9 F 95 18 113/75 99 Intake and Output 03/29/18 03/29/18 03/29/18 06:59 14:59 22:59 Other: Weight 99.79 kg 95.7 kg Vital Signs: I have reviewed the vital signs. GENERAL: Well-nourished, Well-developed , no apparent distress, cooperative Eyes: PERRL, extraoculry movements intact, clear conjunctiva Head: : Atraumatic external nose and ears, oropharyngeal mucosa is moist without lesions or exudates Neck: Symmetric, trachea midline, No thyromegaly, no masses or neck vain pulsation, no neck rigidity CVS: +S1/S2, mild 2/6 murmur mitral area, no gallops. Peripheral pulses 2+ and equal in all extremities. RESP: Unlabored respiratory effort. Clear to auscultation bilaterally. Abdomen: Bowel sounds present in all 4 quadrants, Soft to palpation, Nontender/ Nondistended, No hepatosplenomegaly, no hernias or masses, no CVA tnderness Musculoskeletal: Extremities w/o deformity, No cyanosis or clubbing, no joint swelling Skin: Warm, Dry. No rashes or lesions Neuro: parts consultant II-XII grossly intact, motor strenght 5/5 i upper and lower extremities, no clonus, patellar DTRs 2+ and sympetrical Psych: Awake, Alert, & Oriented (AAO) x3 Appropriate mood and affect Cranial Nerve Examination - Cranial Nerves Cranial Nerve I- Olfactory: Intact Cranial Nerve II- Optic: Intact Cranial Nerve III- Oculomotor: Intact Cranial Nerve IV- Trochlear: Intact Cranial Nerve V- Trigeminal: Intact Cranial Nerve - Abducens: Intact Cranial Nerve VII- Facial: Intact Cranial Nerve VIII- Auditory: Intact Cranial Nerve IX- Glossopharyngeal: Intact Cranial Nerve X- Vagus: Intact Cranial Nerve XI- Accessory: Intact Cranial Nerve XII- Hypoglossal: Intact Results CBC & Chem 7: 03/29/18 13:35 03/29/18 13:35 Labs: Abnormal Lab Results - Last 24 Hours (Table) 03/29/18 Range/Units 16:21 Urine Protein Trace H (Negative) Urine Ketones Trace H (Negative) U Tricyclic Antidepress Detected H (NotDetected) Ur Amphetamines Screen Detected H (NotDetected) U Methamphetamines Scrn Detected H (NotDetected) U Marijuana (THC) Screen Detected H (NotDetected) Assessment and Plan Plan: 1. Hypertension benign essential Blood pressure has been stable here on amlodipine and hydrochlorothiazide and lisinopril Patient reports no knowledge of amlodipine and hydrochlorothiazide home but states he could be due to that he's been taking them but is not sure History that he is taking lisinopril His blood pressures been slightly softer side and in view of the above statement and that he be started on EGD on I will decrease his amlodipine for now to 5 mg daily and discontinue hydrochlorothiazide to avoid any possibility of orthostatic hypotension and then further monitor his blood pressures 2. Type 2 diabetes mellitus He is on metformin at home and this can be continued in the hospital as long as we don't run into any major drug drug interactions Obviously he will need to check A1c special being Oneita psychotics and I will and 1 not done previously 3. Hyperlipidemia He is okay to continue Lipitor Lipid panel can be checked periodically 4. Depression and anxiety As per psychiatrist recommendation
[2018-03-29] MEDS: GABAPENTIN 400 MG CAP PO SCH (20:18)
[2018-03-29] MEDS: traZODone HCL 50 MG TAB PO SCH (20:18)
[2018-03-30] MEDS: LISINOPRIL 20 MG TAB PO SCH (08:54)
[2018-03-30] MEDS: GABAPENTIN 400 MG CAP PO SCH ×3 (08:54→20:03)
[2018-03-30] MEDS: amLODIPine 5 MG TAB PO SCH (08:54)
[2018-03-30] MEDS: NICOTINE 14MG/24HR PATCH TRANSDERM SCH (08:55)
[2018-03-30] MEDS: ASPIRIN 81 MG PO SCH (08:55)
[2018-03-30] MEDS ORDERED: HYDROCHLOROTHIAZIDE 25 MG TAB PO SCH (09:00)
[2018-03-30] MEDS ORDERED: amLODIPine 10 MG TAB PO SCH (09:00)
[2018-03-30 09:51] LABS: Basophils # (A) 0.1 k/uL (0-0.2); Basophils % (A) 1 %; Eosinophils # (A) 0.2 k/uL (0-0.7); Eosinophils % (A) 3 %; HCT 47.7 % (39.0-53.0); HGB 16.4 gm/dL (13.0-17.5); Lymphocytes # (A) 2.1 k/uL (1.0-4.8); Lymphocytes % (A) 27 %; MCH 31.8 pg (25.0-35.0); MCHC 34.4 g/dL (31.0-37.0); MCV 92.5 fL (80.0-100.0); Mean Platelet Volume 7.9; Monocytes # (A) 0.6 k/uL (0-1.0); Monocytes % (A) 8 %; Neutrophils # (A) 4.5 k/uL (1.3-7.7); Neutrophils % (A) 59 %; Platelet Count 312 k/uL (150-450); RBC 5.16 m/uL (4.30-5.90); RDW 14.2 % (11.5-15.5); WBC 7.5 k/uL (3.8-10.6)
[2018-03-30 10:03] LABS: ALT 17 U/L (21-72); AST 27 U/L (17-59); Albumin 4.5 g/dL (3.5-5.0); Alkaline Phosphatase 61 U/L (38-126); Anion Gap 10 mmol/L; Blood Urea Nitrogen 13 mg/dL (9-20); Calcium 9.6 mg/dL (8.4-10.2); Carbon Dioxide 22 mmol/L (22-30); Chloride 106 mmol/L (98-107); Cholesterol 149 mg/dL (<200); Glucose 96 mg/dL (74-99); HDL Cholesterol 42 mg/dL (40-60); LDL Cholesterol,Calculated 77 mg/dL (0-99); Potassium 4.6 mmol/L (3.5-5.1); Sodium 138 mmol/L (137-145); Total Bilirubin 0.6 mg/dL (0.2-1.3); Total Protein 7.8 g/dL (6.3-8.2); Triglycerides 152 mg/dL (<150)
--- NOTE | 2018-03-30 18:11 | P.HP ---
Psychiatric H&P - . H&P Date: 03/30/18 History & Physical: Allergies Allergy/AdvReac Type Severity Reaction Status Date / Time ibuprofen [From Motrin] AdvReac Nausea & Verified 03/29/18 14:12 Vomiting simvastatin [From Zocor] AdvReac Dizziness Verified 03/29/18 14:12 Vital Signs Temp 98.1 F 03/30/18 06:32 Pulse 67 03/30/18 06:32 Resp 18 03/30/18 06:32 BP 127/83 03/30/18 06:32 Pulse Ox 98 03/29/18 17:13 Intake & Output 03/29/18 03/30/18 03/30/18 18:59 06:59 18:59 Weight 95.7 kg Laboratory Last Values WBC 7.5 k/uL (3.8-10.6) 03/30/18 09:08 RBC 5.16 m/uL (4.30-5.90) 03/30/18 09:08 Hgb 16.4 gm/dL (13.0-17.5) 03/30/18 09:08 Hct 47.7 % (39.0-53.0) 03/30/18 09:08 MCV 92.5 fL (80.0-100.0) 03/30/18 09:08 MCH 31.8 pg (25.0-35.0) 03/30/18 09:08 MCHC 34.4 g/dL (31.0-37.0) 03/30/18 09:08 RDW 14.2 % (11.5-15.5) 03/30/18 09:08 Plt Count 312 k/uL (150-450) 03/30/18 09:08 Neutrophils % 59 % 03/30/18 09:08 Lymphocytes % 27 % 03/30/18 09:08 Monocytes % 8 % 03/30/18 09:08 Eosinophils % 3 % 03/30/18 09:08 Basophils % 1 % 03/30/18 09:08 Neutrophils # 4.5 k/uL (1.3-7.7) 03/30/18 09:08 Lymphocytes # 2.1 k/uL (1.0-4.8) 03/30/18 09:08 Monocytes # 0.6 k/uL (0-1.0) 03/30/18 09:08 Eosinophils # 0.2 k/uL (0-0.7) 03/30/18 09:08 Basophils # 0.1 k/uL (0-0.2) 03/30/18 09:08 PT 10.4 sec (9.0-12.0) 03/29/18 13:35 INR 1.1 (<1.2) 03/29/18 13:35 Sodium 138 mmol/L (137-145) 03/30/18 09:08 Potassium 4.6 mmol/L (3.5-5.1) 03/30/18 09:08 Chloride 106 mmol/L (98-107) 03/30/18 09:08 Carbon Dioxide 22 mmol/L (22-30) 03/30/18 09:08 Anion Gap 10 mmol/L 03/30/18 09:08 BUN 13 mg/dL (9-20) 03/30/18 09:08 Creatinine 0.81 mg/dL (0.66-1.25) 03/30/18 09:08 Est GFR (CKD-EPI)AfAm >90 (>60 ml/min/1.73 sqM) 03/30/18 09:08 Est GFR (CKD-EPI)NonAf >90 (>60 ml/min/1.73 sqM) 03/30/18 09:08 Glucose 96 mg/dL (74-99) 03/30/18 09:08 Calcium 9.6 mg/dL (8.4-10.2) 03/30/18 09:08 Total Bilirubin 0.6 mg/dL (0.2-1.3) 03/30/18 09:08 AST 27 U/L (17-59) 03/30/18 09:08 ALT 17 U/L (21-72) L 03/30/18 09:08 Alkaline Phosphatase 61 U/L (38-126) 03/30/18 09:08 Total Creatine Kinase 137 U/L (55-170) 03/29/18 13:35 CK-MB (CK-2) 1.6 ng/mL (0.0-2.4) 03/29/18 13:35 CK-MB (CK-2) Rel Index 1.2 03/29/18 13:35 Total Protein 7.8 g/dL (6.3-8.2) 03/30/18 09:08 Albumin 4.5 g/dL (3.5-5.0) 03/30/18 09:08 Triglycerides 152 mg/dL (<150) H 03/30/18 09:08 Cholesterol 149 mg/dL (<200) 03/30/18 09:08 LDL Cholesterol, Calc 77 mg/dL (0-99) 03/30/18 09:08 HDL Cholesterol 42 mg/dL (40-60) 03/30/18 09:08 TSH 0.519 mIU/L (0.465-4.680) 03/30/18 09:08 Urine Color Yellow 03/29/18 16:21 Urine Appearance Clear (Clear) 03/29/18 16:21 Urine pH 6.5 (5.0-8.0) 03/29/18 16:21 Ur Specific Perley 1.020 (1.001-1.035) 03/29/18 16:21 Urine Protein Trace (Negative) H 03/29/18 16:21 Urine Glucose (UA) Negative (Negative) 03/29/18 16:21 Urine Ketones Trace (Negative) H 03/29/18 16:21 Urine Blood Negative (Negative) 03/29/18 16:21 Urine Nitrite Negative (Negative) 03/29/18 16:21 Urine Bilirubin Negative (Negative) 03/29/18 16:21 Urine Urobilinogen <2.0 mg/dL (<2.0) 03/29/18 16:21 Ur Leukocyte Esterase Negative (Negative) 03/29/18 16:21 Salicylates <1.0 mg/dL 03/29/18 13:35 Urine Opiates Screen Not Detected (NotDetected) 03/29/18 16:21 Ur Oxycodone Screen Not Detected (NotDetected) 03/29/18 16:21 Urine Methadone Screen Not Detected (NotDetected) 03/29/18 16:21 Ur Propoxyphene Screen Not Detected (NotDetected) 03/29/18 16:21 Acetaminophen <10.0 ug/mL 03/29/18 13:35 Ur Barbiturates Screen Not Detected (NotDetected) 03/29/18 16:21 U Tricyclic Antidepress Detected (NotDetected) H 03/29/18 16:21 Ur Phencyclidine Scrn Not Detected (NotDetected) 03/29/18 16:21 Ur Amphetamines Screen Detected (NotDetected) H 03/29/18 16:21 U Methamphetamines Scrn Detected (NotDetected) H 03/29/18 16:21 U Benzodiazepines Scrn Not Detected (NotDetected) 03/29/18 16:21 Urine Cocaine Screen Not Detected (NotDetected) 03/29/18 16:21 U Marijuana (THC) Screen Detected (NotDetected) H 03/29/18 16:21 Serum Alcohol <10 mg/dL 03/29/18 13:35 03/30/18 18:05 Chief Complaint:Intentional overdose on pills HPI : Mr. Micky Webb is 47 yo single male with h/o depression admitted here secondary to worsening depression and suicidal attempt. Repotedly he took 30 pills of Elavil in an attempt to kill himself. States that his children disown him and they kicked him out of house and now he i shomeless. In ER blood reports dont show elevated levels of elavil.Patient is adamant that he took many pills to kill himself. He has been treated for depression in past. He denies symptoms of psychoses, mood swings or OCD to me. 03/30/18 18:08 Past Psych Hx : Depression Personal and social : Unemployed now homeless. Smokes marijuana. MSE : Alert, awake, oriented x 4. Has poor eye contact. Speech soft. Mood dysphoric with congruent affect. Has suicidal ideation. No psychoses. In sight and judgement poor. A/P Major Depressive Disorder, severe recurrent Plan : Will start Prozac 20 mg po qdaily.
[2018-03-30] MEDS: traZODone HCL 50 MG TAB PO SCH (20:03)
[2018-03-30] MEDS: FLUoxetine HCL 20 MG CAP PO SCH (20:03)
[2018-03-31] MEDS: NICOTINE 14MG/24HR PATCH TRANSDERM SCH (07:35)
[2018-03-31] MEDS: FLUoxetine HCL 20 MG CAP PO SCH (07:35)
[2018-03-31] MEDS: ASPIRIN 81 MG PO SCH (07:35)
[2018-03-31] MEDS: GABAPENTIN 400 MG CAP PO SCH (07:35)
[2018-03-31] MEDS: LISINOPRIL 20 MG TAB PO SCH (07:35)
[2018-03-31] MEDS: amLODIPine 5 MG TAB PO SCH (07:35)
[2018-03-31 09:36] LABS: Hemoglobin A1C 4.8 % (4.0-6.0)
--- NOTE | 2018-03-31 09:57 | P.PN ---
Subjective Progress Note Date: 03/31/18 Principal diagnosis: bipolar disorder-depressed I feel depressed and I have pain in shoulder and body Objective - Vital Signs Vital signs: Vital Signs Temp 97.8 F 03/31/18 06:26 Pulse 59 L 03/31/18 07:40 Resp 18 03/31/18 07:40 BP 126/71 03/31/18 07:40 Pulse Ox 98 03/29/18 17:13 - Labs CBC & Chem 7: 03/30/18 09:08 03/30/18 09:08 Labs: Abnormal Lab Results - Last 24 Hours (Table) 03/30/18 Range/Units 09:08 ALT 17 L (21-72) U/L Triglycerides 152 H (<150) mg/dL Assessment and Plan Assessment: This is a 47-year-old male the ER for evaluation. Patient recently of psychiatric illness, overdose. Patient has history of psychiatric illness with multiple ER visits. Patient states he is homeless significant living in the colon took overdose of Elavil 30 pills. Likely other drugs or alcohol MD Complaint: suicidal ideation, feels depressed -: days(s) Associated Psychiatric Symptoms: depression, suicidal ideation History of same: Yes Quality: constant Improves With: none Worsens With: drug use Context: not taking psychiatric medications Associated Symptoms: denies other symptoms - Related Data Home Medications Medication Instructions Recorded Confirmed Gabapentin 800 mg PO TID 01/10/18 03/29/18 Hydrochlorothiazide 25 mg PO DAILY 01/10/18 03/29/18 amLODIPine [Norvasc] 10 mg PO DAILY 03/13/18 03/29/18 Amitriptyline HCl [Elavil] 25 mg PO HS 03/16/18 03/29/18 Aspirin EC [Ecotrin Low Dose] 81 mg PO DAILY 03/16/18 03/29/18 Lisinopril [Zestril] 20 mg PO DAILY 03/25/18 03/29/18 Allergies Allergy/AdvReac Type Severity Reaction Status Date / Time ibuprofen [From Motrin] AdvReac Nausea & Verified 03/29/18 14:12 Vomiting simvastatin [From Zocor] AdvReac Dizziness Verified 03/29/18 14:12 Mental Status Examination - General Appearance: [ disheveled, appears older than stated age Speech/Language: [spontaneous, rapid, slurred, rambled, mumbling, Attitude/Behavior: [cooperative, guarded, Mood: [depressed, euphoric, anxious, elated, irritable, angry, fearful, hopelessness] Affect: [ lively, flat, incongruent, labile, blunted constricted Orientation: [time, person, place situation] Thought Content: [wnl, Risk Factors: [he is suicidal (ideations, plan), and/or Homicidal (ideations, plan), other] Perception: [wnl Thought Processes: [goal-oriented Concentration/Attention Span: [wnl] [Per observation and interview with the patient] Recent Memory: [wnl] [3 out of 3 in 3 minutes] Remote Memory: [wnl] [past events, as related history] Intelligence: [below average] [based on history, based on vocabulary, syntax, grammar, and content] Judgement: [ poor] [per patient's behavior/history of present illness] Insight: [ poor] [understanding severity of illness/history of present illness] Time with Patient: Greater than 30
[2018-03-31] MEDS: GABAPENTIN 100 MG CAP PO SCH ×2 (15:09→21:16)
[2018-03-31] MEDS: MELOXICAM 7.5 MG TAB PO SCH (20:20)
[2018-03-31] MEDS ORDERED: PALIPERIDONE 3 MG TAB.ER.24 PO SCH (21:00)
[2018-03-31] MEDS ORDERED: lamoTRIgine 25 MG TAB PO SCH (21:00)
[2018-04-01] MEDS: MELOXICAM 7.5 MG TAB PO SCH ×2 (08:32→20:02)
[2018-04-01] MEDS: GABAPENTIN 100 MG CAP PO SCH ×3 (08:33→20:50)
[2018-04-01] MEDS: LISINOPRIL 20 MG TAB PO SCH (08:33)
[2018-04-01] MEDS: ASPIRIN 81 MG PO SCH (08:34)
[2018-04-01] MEDS: NICOTINE 14MG/24HR PATCH TRANSDERM SCH (08:34)
[2018-04-01] MEDS: amLODIPine 5 MG TAB PO SCH (08:34)
--- NOTE | 2018-04-01 13:50 | P.PN ---
Subjective Progress Note Date: 04/01/18 Principal diagnosis: bipolar disorder-depressed I feel depressed and I have pain in shoulder and body. I am still seeing things and depressed. I can not sleep at night. I have pain in my chest and shoulder area. Objective - Vital Signs Vital signs: Vital Signs Temp 97.6 F 04/01/18 06:31 Pulse 69 04/01/18 06:31 Resp 16 04/01/18 06:31 BP 120/67 04/01/18 06:31 Pulse Ox 98 03/29/18 17:13 - Labs CBC & Chem 7: 03/30/18 09:08 03/30/18 09:08 Assessment and Plan Assessment: This is a 47-year-old male the ER for evaluation. Patient recently of psychiatric illness, overdose. Patient has history of psychiatric illness with multiple ER visits. Patient states he is homeless significant living in the colon took overdose of Elavil 30 pills. Likely other drugs or alcohol. is currently in [facility] on client. In question about amphetamines in his urine he does not know where it came from. MD Complaint: suicidal ideation, feels depressed -: days(s) Associated Psychiatric Symptoms: depression, suicidal ideation History of same: Yes Quality: constant Improves With: none Worsens With: drug use Context: not taking psychiatric medications Associated Symptoms: denies other symptoms - Related Data Home Medications Medication Instructions Recorded Confirmed Gabapentin 800 mg PO TID 01/10/18 03/29/18 Hydrochlorothiazide 25 mg PO DAILY 01/10/18 03/29/18 amLODIPine [Norvasc] 10 mg PO DAILY 03/13/18 03/29/18 Amitriptyline HCl [Elavil] 25 mg PO HS 03/16/18 03/29/18 Aspirin EC [Ecotrin Low Dose] 81 mg PO DAILY 03/16/18 03/29/18 Lisinopril [Zestril] 20 mg PO DAILY 03/25/18 03/29/18 Allergies Allergy/AdvReac Type Severity Reaction Status Date / Time ibuprofen [From Motrin] AdvReac Nausea & Verified 03/29/18 14:12 Vomiting simvastatin [From Zocor] AdvReac Dizziness Verified 03/29/18 14:12 Mental Status Examination - General Appearance: [ disheveled, appears older than stated age Speech/Language: [spontaneous, rapid, slurred, rambled, mumbling, Attitude/Behavior: [cooperative, guarded, Mood: [depressed, euphoric, anxious, elated, irritable, angry, fearful, hopelessness] Affect: [ lively, flat, incongruent, labile, blunted constricted Orientation: [time, person, place situation] Thought Content: [wnl, Risk Factors: [he is suicidal (ideations, plan), and/or Homicidal (ideations, plan), other] Perception: [wnl Thought Processes: [goal-oriented Concentration/Attention Span: [wnl] [Per observation and interview with the patient] Recent Memory: [wnl] [3 out of 3 in 3 minutes] Remote Memory: [wnl] [past events, as related history] Intelligence: [below average] [based on history, based on vocabulary, syntax, grammar, and content] Judgement: [ poor] [per patient's behavior/history of present illness] Insight: [ poor] [understanding severity of illness/history of present illness] (1) Depression Current Visit: Yes Status: Acute Priority: High Code(s): F32.9 - MAJOR DEPRESSIVE DISORDER, SINGLE EPISODE, UNSPECIFIED SNOMED Code(s): 35647976 (2) Abdominal pain Current Visit: No Status: Acute Priority: Low Code(s): R10.9 - UNSPECIFIED ABDOMINAL PAIN SNOMED Code(s): 71025381 (3) Back pain Current Visit: No Status: Acute Priority: Medium Code(s): M54.9 - DORSALGIA, UNSPECIFIED SNOMED Code(s): 317367622 (4) Chest pain Current Visit: No Status: Acute Priority: Medium Code(s): R07.9 - CHEST PAIN, UNSPECIFIED SNOMED Code(s): 57856779 (5) HTN (hypertension) Current Visit: No Status: Acute Priority: Medium Code(s): I10 - ESSENTIAL (PRIMARY) HYPERTENSION SNOMED Code(s): 81209757 (6) Hyperlipemia Current Visit: No Status: Acute Priority: Medium Code(s): E78.5 - HYPERLIPIDEMIA, UNSPECIFIED SNOMED Code(s): 62762262 Plan: increase invega 6 mg po qhs for thought disorder; add Mirapex 1 mg po qhs for restless leg syndrome;increase lamictal 50 mg po qhs for mood stability Time with Patient: Less than 30
[2018-04-01] MEDS: ACETAMINOPHEN TAB 325 MG TAB PO PRN (15:25)
[2018-04-01] MEDS: PRAMIPEXOLE 1 MG TAB PO SCH (20:03)
[2018-04-01] MEDS ORDERED: lamoTRIgine 25 MG TAB PO SCH (21:00)
[2018-04-01] MEDS ORDERED: PALIPERIDONE 6 MG TAB.ER.24 PO SCH (21:00)
[2018-04-02] MEDS: LORazepam 1 MG TAB PO PRN ×2 (00:06→08:36)
[2018-04-02] MEDS: ACETAMINOPHEN TAB 325 MG TAB PO PRN (01:43)
--- NOTE | 2018-04-02 02:07 | XR ---
EXAMINATION TYPE: XR shoulder complete LT DATE OF EXAM: 04/02/2018 COMPARISON: 01/11/2015 HISTORY: Shoulder pain TECHNIQUE: 3 views. FINDINGS: AC joint space measures 2.5 cm and this could be postsurgical. The glenohumeral joint is intact. Ther e are no pathologic calcifications at the greater tuberosity. Humeral head is intact. There is no vielka dence of a fracture. IMPRESSION: There appears to be resection of the lateral and of the clavicle. Shoulder joint is stabl e compared to old exam. No fracture seen.
[2018-04-02] MEDS ORDERED: traMADol 50 MG TAB PO STA (05:07)
[2018-04-02] MEDS: MELOXICAM 7.5 MG TAB PO SCH ×2 (08:36→20:24)
[2018-04-02] MEDS: GABAPENTIN 100 MG CAP PO SCH ×3 (08:36→20:23)
[2018-04-02] MEDS: LISINOPRIL 20 MG TAB PO SCH (08:36)
[2018-04-02] MEDS: amLODIPine 5 MG TAB PO SCH (08:36)
[2018-04-02] MEDS: NICOTINE 14MG/24HR PATCH TRANSDERM SCH (08:36)
[2018-04-02] MEDS: ASPIRIN 81 MG PO SCH (08:36)
--- NOTE | 2018-04-02 09:57 | P.PN ---
Subjective Progress Note Date: 04/02/18 Principal diagnosis: bipolar disorder-depressed I feel depressed and I have pain in shoulder and body. I am still seeing things and depressed. I can not sleep at night. I have pain in my chest and shoulder area.Fell out of bed last night and hurt shoulder. Xray negative for structural changes. Objective - Vital Signs Vital signs: Vital Signs Temp 97.6 F 04/02/18 03:19 Pulse 97 04/02/18 08:39 Resp 20 04/02/18 08:39 BP 137/86 04/02/18 08:39 Pulse Ox 98 04/02/18 01:31 - Labs CBC & Chem 7: 03/30/18 09:08 03/30/18 09:08 Assessment and Plan Assessment: This is a 47-year-old male the ER for evaluation. Patient recently of psychiatric illness, overdose. Patient has history of psychiatric illness with multiple ER visits. Patient states he is homeless significant living in the colon took overdose of Elavil 30 pills. Likely other drugs or alcohol. is currently in [facility] client. In question about amphetamines in his urine he does not know where it came from. MD Complaint: suicidal ideation, feels depressed -: days(s) Associated Psychiatric Symptoms: depression, suicidal ideation History of same: Yes Quality: constant Improves With: none Worsens With: drug use Context: not taking psychiatric medications Associated Symptoms: denies other symptoms - Related Data Home Medications Medication Instructions Recorded Confirmed Gabapentin 800 mg PO TID 01/10/18 03/29/18 Hydrochlorothiazide 25 mg PO DAILY 01/10/18 03/29/18 amLODIPine [Norvasc] 10 mg PO DAILY 03/13/18 03/29/18 Amitriptyline HCl [Elavil] 25 mg PO HS 03/16/18 03/29/18 Aspirin EC [Ecotrin Low Dose] 81 mg PO DAILY 03/16/18 03/29/18 Lisinopril [Zestril] 20 mg PO DAILY 03/25/18 03/29/18 Allergies Allergy/AdvReac Type Severity Reaction Status Date / Time ibuprofen [From Motrin] AdvReac Nausea & Verified 03/29/18 14:12 Vomiting simvastatin [From Zocor] AdvReac Dizziness Verified 03/29/18 14:12 Mental Status Examination - General Appearance: [ disheveled, appears older than stated age Speech/Language: [spontaneous, rapid, slurred, rambled, mumbling, Attitude/Behavior: [cooperative, guarded, Mood: [depressed, euphoric, anxious, elated, irritable, angry, fearful, hopelessness] Affect: [ lively, flat, incongruent, labile, blunted constricted Orientation: [time, person, place situation] Thought Content: [wnl, Risk Factors: [he is suicidal (ideations, plan), and/or Homicidal (ideations, plan), other] Perception: [wnl Thought Processes: [goal-oriented Concentration/Attention Span: [wnl] [Per observation and interview with the patient] Recent Memory: [wnl] [3 out of 3 in 3 minutes] Remote Memory: [wnl] [past events, as related history] Intelligence: [below average] [based on history, based on vocabulary, syntax, grammar, and content] Judgement: [ poor] [per patient's behavior/history of present illness] Insight: [ poor] [understanding severity of illness/history of present illness] (1) Depression Current Visit: Yes Status: Acute Priority: High Code(s): F32.9 - MAJOR DEPRESSIVE DISORDER, SINGLE EPISODE, UNSPECIFIED SNOMED Code(s): 25919934 (2) Abdominal pain Current Visit: No Status: Acute Priority: Low Code(s): R10.9 - UNSPECIFIED ABDOMINAL PAIN SNOMED Code(s): 74773764 (3) Back pain Current Visit: No Status: Acute Priority: Medium Code(s): M54.9 - DORSALGIA, UNSPECIFIED SNOMED Code(s): 887447063 (4) Chest pain Current Visit: No Status: Acute Priority: Medium Code(s): R07.9 - CHEST PAIN, UNSPECIFIED SNOMED Code(s): 51822171 (5) HTN (hypertension) Current Visit: No Status: Acute Priority: Medium Code(s): I10 - ESSENTIAL (PRIMARY) HYPERTENSION SNOMED Code(s): 77637959 (6) Hyperlipemia Current Visit: No Status: Acute Priority: Medium Code(s): E78.5 - HYPERLIPIDEMIA, UNSPECIFIED SNOMED Code(s): 21265882 Plan: increase invega 9 mg po qhs for thought disorder; add Mirapex 1 mg po qhs for restless leg syndrome;increase lamictal 75 mg po qhs for mood stability Time with Patient: Less than 30
[2018-04-02] MEDS: PRAMIPEXOLE 1 MG TAB PO SCH (20:24)
[2018-04-02] MEDS ORDERED: lamoTRIgine 25 MG TAB PO SCH (21:00)
[2018-04-02] MEDS ORDERED: PALIPERIDONE 3 MG TAB.ER.24 PO SCH (21:00)
[2018-04-03] MEDS: LORazepam 1 MG TAB PO PRN ×3 (00:21→23:02)
[2018-04-03] MEDS: amLODIPine 5 MG TAB PO SCH (08:38)
[2018-04-03] MEDS: GABAPENTIN 100 MG CAP PO SCH ×3 (08:38→20:14)
[2018-04-03] MEDS: NICOTINE 14MG/24HR PATCH TRANSDERM SCH (08:38)
[2018-04-03] MEDS: ASPIRIN 81 MG PO SCH (08:38)
[2018-04-03] MEDS: MELOXICAM 7.5 MG TAB PO SCH ×2 (08:38→20:15)
[2018-04-03] MEDS: LISINOPRIL 20 MG TAB PO SCH (08:38)
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
[2018-04-03] MEDS: PRAMIPEXOLE 1 MG TAB PO SCH (20:15)
[2018-04-03] MEDS: PALIPERIDONE 6 MG TAB.ER.24 PO SCH (20:16)
[2018-04-03] MEDS: PRAMIPEXOLE 0.125 MG TAB PO SCH (20:16)
[2018-04-03] MEDS ORDERED: lamoTRIgine 100 MG TAB PO SCH (21:00)
[2018-04-04] MEDS: PRAMIPEXOLE 0.125 MG TAB PO SCH ×2 (08:08→21:08)
[2018-04-04] MEDS: GABAPENTIN 100 MG CAP PO SCH ×3 (08:08→21:07)
[2018-04-04] MEDS: NICOTINE 14MG/24HR PATCH TRANSDERM SCH (08:08)
[2018-04-04] MEDS: amLODIPine 5 MG TAB PO SCH (08:08)
[2018-04-04] MEDS: MELOXICAM 7.5 MG TAB PO SCH ×2 (08:09→21:05)
[2018-04-04] MEDS: LISINOPRIL 20 MG TAB PO SCH (08:09)
[2018-04-04] MEDS: ASPIRIN 81 MG PO SCH (08:09)
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
[2018-04-04] MEDS: ACETAMINOPHEN TAB 325 MG TAB PO PRN (15:27)
[2018-04-04] MEDS: cloNIDine HCL 0.1 MG TAB PO SCH ×2 (15:28→21:07)
[2018-04-04] MEDS: LORazepam 1 MG TAB PO PRN (15:28)
[2018-04-04] MEDS: lamoTRIgine 100 MG TAB PO SCH (21:05)
[2018-04-04] MEDS: PRAMIPEXOLE 1 MG TAB PO SCH (21:06)
[2018-04-04] MEDS: PALIPERIDONE 6 MG TAB.ER.24 PO SCH (21:06)
[2018-04-05] MEDS: LORazepam 1 MG TAB PO PRN ×2 (00:30→10:37)
[2018-04-05] MEDS: ACETAMINOPHEN TAB 325 MG TAB PO PRN ×2 (00:30→10:36)
[2018-04-05] MEDS: LISINOPRIL 20 MG TAB PO SCH (08:26)
[2018-04-05] MEDS: NICOTINE 14MG/24HR PATCH TRANSDERM SCH (08:26)
[2018-04-05] MEDS: PRAMIPEXOLE 0.125 MG TAB PO SCH ×2 (08:26→20:45)
[2018-04-05] MEDS: GABAPENTIN 100 MG CAP PO SCH ×3 (08:26→20:45)
[2018-04-05] MEDS: cloNIDine HCL 0.1 MG TAB PO SCH ×3 (08:27→20:45)
[2018-04-05] MEDS: ASPIRIN 81 MG PO SCH (08:27)
[2018-04-05] MEDS: MELOXICAM 7.5 MG TAB PO SCH ×2 (08:27→20:44)
[2018-04-05] MEDS: amLODIPine 5 MG TAB PO SCH (08:27)
[2018-04-05] MEDS: MAG HYDROX/AL HYDROX/SIMETH 30 ML CUP PO PRN (10:38)
--- NOTE | 2018-04-05 17:55 | P.PN ---
Progress Note - Text Progress Note Date: 04/05/18 IDENTIFICATION DATA: 47 yo single male with h/o depression admitted due to worsening depression and suicidal attempt. Stressors homeless, disowned by children, in senior care. His UDS was positive for amphetamines and marijuana. INTERVAL HISTORY: He states he hasnt slept well over the past four days. He claims he did not sleep at all last night. He claims trazadone has helped him with sleep in the past. He continues to state that his moods are still unstable. He reports having suicidal thoughts every morning. He however denies any active plans. He states he wants to get better and wants to go rehab program. He reports good appetite. He reports mirapex is helping him and claims he no longer has restless legs. He denies medication side effects. MENTAL STATUS EXAMINATION: Appeared stated age. is, dressed casually. Well built and nourished. Fair grooming and hygiene. No abnormal movements noted. mood is reported as pretty good. and affect appropriate. speech and thought process were goal directed. denies current auditory. Reports seeing shadows. denies paranoia. is alert and oriented x 4. denies current suicidal or homicidal ideations. insight and judgement are improving. ASSESSMENT AND PLAN: Will start him on trazadone 50mg po qhs for insomnia as he claims it h as helped him in the past. Continue current treatment. Monitor for symptoms.
[2018-04-05] MEDS: lamoTRIgine 100 MG TAB PO SCH (20:44)
[2018-04-05] MEDS: PRAMIPEXOLE 1 MG TAB PO SCH (20:45)
[2018-04-05] MEDS: PALIPERIDONE 6 MG TAB.ER.24 PO SCH (20:45)
[2018-04-05] MEDS ORDERED: traZODone HCL 50 MG TAB PO SCH (21:00)
[2018-04-06] MEDS: LORazepam 1 MG TAB PO PRN ×3 (01:21→17:42)
[2018-04-06] MEDS: LISINOPRIL 20 MG TAB PO SCH (08:02)
[2018-04-06] MEDS: NICOTINE 14MG/24HR PATCH TRANSDERM SCH (08:02)
[2018-04-06] MEDS: amLODIPine 5 MG TAB PO SCH (08:02)
[2018-04-06] MEDS: GABAPENTIN 100 MG CAP PO SCH ×3 (08:02→20:42)
[2018-04-06] MEDS: PRAMIPEXOLE 0.125 MG TAB PO SCH ×2 (08:02→20:41)
[2018-04-06] MEDS: ASPIRIN 81 MG PO SCH (08:02)
[2018-04-06] MEDS: MELOXICAM 7.5 MG TAB PO SCH ×2 (08:03→20:40)
[2018-04-06] MEDS: cloNIDine HCL 0.1 MG TAB PO SCH ×3 (08:10→20:46)
[2018-04-06] MEDS: ACETAMINOPHEN TAB 325 MG TAB PO PRN (10:32)
[2018-04-06] MEDS: MAG HYDROX/AL HYDROX/SIMETH 30 ML CUP PO PRN (15:14)
--- NOTE | 2018-04-06 16:27 | P.PN ---
Progress Note - Text Progress Note Date: 04/06/18 IDENTIFICATION DATA: 47 yo single male with h/o depression admitted due to worsening depression and suicidal attempt. Stressors homeless, disowned by children, in [facility]. His UDS was positive for amphetamines and marijuana. INTERVAL HISTORY: He continues to report feeling sad about not having a place to live. Reports feeling paranoid about seeing shadows. He is interested in rehab program and is currently awaiting a placement there. He says trazadone did nothelp him with sleep and claims he stayed awake most of the night. He is currently willing to try remeron instead of trazadone. He says his feet hurt and attributes it wearing ill fitting shoes. He claims ot have gained 23 pounds since his admission. He denies suicidal or homicidal ideations today. He denies medication side effects. MENTAL STATUS EXAMINATION: Appeared stated age. is, dressed casually. Well built and nourished. Fair grooming and hygiene. No abnormal movements noted. mood is reported as good. and affect appropriate. speech and thought process were goal directed. denies current auditory. Reports seeing shadows. Reports feeling paranoid about seeing shadows. Is alert and oriented x 4. denies current suicidal or homicidal ideations. insight and judgement are improving. ASSESSMENT AND PLAN: Will discontinue trazadone as he claims it did not help him with sleep and will start him on remeron 7.5mg po qhs. Continue current treatment. Monitor for symptoms.
[2018-04-06] MEDS: lamoTRIgine 100 MG TAB PO SCH (20:40)
[2018-04-06] MEDS: PALIPERIDONE 6 MG TAB.ER.24 PO SCH (20:41)
[2018-04-06] MEDS: PRAMIPEXOLE 1 MG TAB PO SCH (20:41)
[2018-04-06] MEDS: MIRTAZAPINE 15 MG TAB PO SCH (20:42)
[2018-04-07] MEDS: LISINOPRIL 20 MG TAB PO SCH (08:44)
[2018-04-07] MEDS: ASPIRIN 81 MG PO SCH (08:44)
[2018-04-07] MEDS: GABAPENTIN 100 MG CAP PO SCH (08:44)
[2018-04-07] MEDS: NICOTINE 14MG/24HR PATCH TRANSDERM SCH (08:44)
[2018-04-07] MEDS: MELOXICAM 7.5 MG TAB PO SCH (08:44)
[2018-04-07] MEDS: cloNIDine HCL 0.1 MG TAB PO SCH (08:44)
[2018-04-07] MEDS: amLODIPine 5 MG TAB PO SCH (08:44)
[2018-04-07] MEDS: PRAMIPEXOLE 0.125 MG TAB PO SCH ×2 (09:02→20:11)
[2018-04-07] MEDS: LORazepam 1 MG TAB PO PRN ×2 (12:08→23:46)
--- NOTE | 2018-04-07 12:48 | P.PN ---
Subjective Progress Note Date: 04/07/18 Principal diagnosis: bipolar disorder-depressed plus polysubstance abuse including amphetamines alcohol and marijuana I feel depressed and I have pain in shoulder and body again today with nasal cold and cough. I am still seeing more things and depressed. I can not sleep at night. I have pain in my chest and shoulder area.Fell out of bed last night and hurt shoulder. Xray negative for structural changes. He had difficult time getting sleep last night. He is now detoxed from the amphetamines and marijuana but still being treated for his bipolar affective disorder Objective - Vital Signs Vital signs: Vital Signs Temp 97.5 F L 04/07/18 06:29 Pulse 92 04/07/18 09:10 Resp 20 04/07/18 09:10 BP 152/87 04/07/18 09:10 Pulse Ox 98 04/02/18 01:31 Intake & Output 04/06/18 04/07/18 04/07/18 18:59 06:59 18:59 Weight 106.1 kg - Labs CBC & Chem 7: 03/30/18 09:08 03/30/18 09:08 Assessment and Plan Assessment: HPI: This is a 47-year-old male the ER for evaluation. Patient recently of psychiatric illness, overdose. Patient has history of psychiatric illness with multiple ER visits. Patient states he is homeless significant living in the colon took overdose of Elavil 30 pills. Likely other drugs or alcohol. is currently in [facility] for [facility] on client. In question about amphetamines in his urine he does not know where it came from. His urine drug screen when he came in the hospital was positive for amphetamines. MD Complaint: suicidal ideation, feels depressed -: days(s) Associated Psychiatric Symptoms: depression, suicidal ideation History of same: Yes Quality: constant Improves With: none Worsens With: drug use Context: not taking psychiatric medications Associated Symptoms: denies other symptoms - Related Data Home Medications Medication Instructions Recorded Confirmed Gabapentin 800 mg PO TID 01/10/18 03/29/18 Hydrochlorothiazide 25 mg PO DAILY 01/10/18 03/29/18 amLODIPine [Norvasc] 10 mg PO DAILY 03/13/18 03/29/18 Amitriptyline HCl [Elavil] 25 mg PO HS 03/16/18 03/29/18 Aspirin EC [Ecotrin Low Dose] 81 mg PO DAILY 03/16/18 03/29/18 Lisinopril [Zestril] 20 mg PO DAILY 03/25/18 03/29/18 Allergies Allergy/AdvReac Type Severity Reaction Status Date / Time ibuprofen [From Motrin] AdvReac Nausea & Verified 03/29/18 14:12 Vomiting simvastatin [From Zocor] AdvReac Dizziness Verified 03/29/18 14:12 Mental Status Examination - General Appearance: [ disheveled, appears older than stated age Speech/Language: [spontaneous, rapid, slurred, rambled, mumbling, Attitude/Behavior: [cooperative, guarded, Mood: [depressed, euphoric, anxious, elated, irritable, angry, fearful, hopelessness] Affect: [ lively, flat, incongruent, labile, blunted constricted Orientation: [time, person, place situation] Thought Content: [wnl, Risk Factors: [he is suicidal (ideations, plan), and/or Homicidal (ideations, plan), other] Perception: [wnl Thought Processes: [goal-oriented Concentration/Attention Span: [wnl] [Per observation and interview with the patient] Recent Memory: [wnl] [3 out of 3 in 3 minutes] Remote Memory: [wnl] [past events, as related history] Intelligence: [below average] [based on history, based on vocabulary, syntax, grammar, and content] Judgement: [ poor] [per patient's behavior/history of present illness] Insight: [ poor] [understanding severity of illness/history of present illness] Diagnoses: Bipolar affective disorder with anjali substance abuse which includes amphetamine alcohol marijuana which is severe in nature and needs residential treatment (1) Depression Current Visit: Yes Status: Acute Priority: Medium Code(s): F32.9 - MAJOR DEPRESSIVE DISORDER, SINGLE EPISODE, UNSPECIFIED SNOMED Code(s): 16534779 (2) Abdominal pain Current Visit: No Status: Resolved Priority: Low Code(s): R10.9 - UNSPECIFIED ABDOMINAL PAIN SNOMED Code(s): 13683561 (3) Back pain Current Visit: No Status: Acute Priority: Medium Code(s): M54.9 - DORSALGIA, UNSPECIFIED SNOMED Code(s): 993667163 (4) Chest pain Current Visit: No Status: Acute Priority: Medium Code(s): R07.9 - CHEST PAIN, UNSPECIFIED SNOMED Code(s): 88696092 (5) HTN (hypertension) Current Visit: No Status: Acute Priority: Medium Code(s): I10 - ESSENTIAL (PRIMARY) HYPERTENSION SNOMED Code(s): 39497693 (6) Hyperlipemia Current Visit: No Status: Acute Priority: Medium Code(s): E78.5 - HYPERLIPIDEMIA, UNSPECIFIED SNOMED Code(s): 08554331 Plan: stop invega 12 mg po qhs for thought disorder and change to Latuda 40 mg at 1700 hrs; add Mirapex 1 mg po qhs for restless leg syndrome and 0.125 mg bid ; increase lamictal 200 mg po qhs for mood stability stop Mobic 15 mg po bid; increase gabapentin 400 mg 3 times a day. Weekend coverage added mirtazapine and improved his sleep. Increase clonidine 0.2 mg 3 times a day. Highly recommend that he goes to [place] for substance abuse treatment since he is used multiple psychoactive substances on the street including alcohol, amphetamines and marijuana. Time with Patient: Less than 30
[2018-04-07] MEDS: cloNIDine HCL 0.2 MG TAB PO SCH ×2 (15:51→20:11)
[2018-04-07] MEDS: GABAPENTIN 400 MG CAP PO SCH ×2 (15:51→20:10)
[2018-04-07] MEDS: guaiFENesin 600 MG TABLET.ER PO SCH (16:03)
[2018-04-07] MEDS ORDERED: LURASIDONE 40 MG TAB PO SCH (17:00)
[2018-04-07] MEDS: MIRTAZAPINE 15 MG TAB PO SCH (20:08)
[2018-04-07] MEDS: PRAMIPEXOLE 1 MG TAB PO SCH (20:10)
[2018-04-07] MEDS: lamoTRIgine 100 MG TAB PO SCH (20:11)
[2018-04-08 00:59] LABS: Creatine Kinase 125 U/L (55-170)
[2018-04-08 01:12] LABS: Creatine Kinase MB 0.9 ng/mL (0.0-2.4); Troponin I <0.012 ng/mL (0.000-0.034)
[2018-04-08] MEDS: MAG HYDROX/AL HYDROX/SIMETH 30 ML CUP PO PRN (03:42)
[2018-04-08] MEDS: NICOTINE 14MG/24HR PATCH TRANSDERM SCH (08:37)
[2018-04-08] MEDS: GABAPENTIN 400 MG CAP PO SCH ×3 (08:38→21:21)
[2018-04-08] MEDS: amLODIPine 5 MG TAB PO SCH (08:38)
[2018-04-08] MEDS: cloNIDine HCL 0.2 MG TAB PO SCH ×3 (08:38→21:21)
[2018-04-08] MEDS: PRAMIPEXOLE 0.125 MG TAB PO SCH ×2 (08:38→21:52)
[2018-04-08] MEDS: guaiFENesin 600 MG TABLET.ER PO SCH ×2 (08:38→21:21)
[2018-04-08] MEDS: ASPIRIN 81 MG PO SCH (08:38)
[2018-04-08] MEDS: LISINOPRIL 20 MG TAB PO SCH (08:38)
--- NOTE | 2018-04-08 12:57 | P.PN ---
Subjective Progress Note Date: 04/08/18 Principal diagnosis: bipolar disorder-depressed plus polysubstance abuse including amphetamines alcohol and marijuana I feel depressed and I have pain in shoulder and body again today with nasal cold and cough. I am still seeing more things and depressed. I can not sleep at night. I have pain in my chest and shoulder area.Fell out of bed last night and hurt shoulder. Xray negative for structural changes. He had difficult time getting sleep last night. He is now detoxed from the amphetamines and marijuana but still being treated for his bipolar affective disorder. Objective - Vital Signs Vital signs: Vital Signs Temp 97.6 F 04/08/18 02:00 Pulse 80 04/08/18 02:00 Resp 18 04/08/18 02:00 BP 141/79 04/08/18 02:00 Pulse Ox 98 04/02/18 01:31 - Labs CBC & Chem 7: 03/30/18 09:08 03/30/18 09:08 Assessment and Plan Assessment: HPI: This is a 47-year-old male the ER for evaluation. Patient recently of psychiatric illness, overdose. Patient has history of psychiatric illness with multiple ER visits. Patient states he is homeless significant living in the colon took overdose of Elavil 30 pills. Likely other drugs or alcohol. is currently in [facility] for [facility] on client. In question about amphetamines in his urine he does not know where it came from. His urine drug screen when he came in the hospital was positive for amphetamines. MD Complaint: suicidal ideation, feels depressed -: days(s) Associated Psychiatric Symptoms: depression, suicidal ideation History of same: Yes Quality: constant Improves With: none Worsens With: drug use Context: not taking psychiatric medications Associated Symptoms: denies other symptoms - Related Data Home Medications Medication Instructions Recorded Confirmed Gabapentin 800 mg PO TID 01/10/18 03/29/18 Hydrochlorothiazide 25 mg PO DAILY 01/10/18 03/29/18 amLODIPine [Norvasc] 10 mg PO DAILY 03/13/18 03/29/18 Amitriptyline HCl [Elavil] 25 mg PO HS 03/16/18 03/29/18 Aspirin EC [Ecotrin Low Dose] 81 mg PO DAILY 03/16/18 03/29/18 Lisinopril [Zestril] 20 mg PO DAILY 03/25/18 03/29/18 Allergies Allergy/AdvReac Type Severity Reaction Status Date / Time ibuprofen [From Motrin] AdvReac Nausea & Verified 03/29/18 14:12 Vomiting simvastatin [From Zocor] AdvReac Dizziness Verified 03/29/18 14:12 Mental Status Examination - General Appearance: [ disheveled, appears older than stated age Speech/Language: [spontaneous, rapid, slurred, rambled, mumbling, Attitude/Behavior: [cooperative, guarded, Mood: [depressed 8/10, anxious /10, elated, irritable, angry, fearful, hopelessness] Affect: [ lively, flat, incongruent, labile, blunted constricted Orientation: [time, person, place situation] Thought Content: [wnl, Risk Factors: [he is not suicidal (ideations, plan), and/or Homicidal (ideations , plan), other] Perception: [wnl Thought Processes: [goal-oriented Concentration/Attention Span: [wnl] [Per observation and interview with the patient] Recent Memory: [wnl] [3 out of 3 in 3 minutes] Remote Memory: [wnl] [past events, as related history] Intelligence: [below average] [based on history, based on vocabulary, syntax, grammar, and content] Judgement: [ ffair] [per patient's behavior/history of present illness] Insight: [ fair] [understanding severity of illness/history of present illness] Diagnoses: Bipolar affective disorder with anjali substance abuse which includes amphetamine alcohol marijuana which is severe in nature and needs residential treatment (1) Depression Current Visit: Yes Status: Acute Priority: Medium Code(s): F32.9 - MAJOR DEPRESSIVE DISORDER, SINGLE EPISODE, UNSPECIFIED SNOMED Code(s): 07347773 (2) Abdominal pain Current Visit: No Status: Resolved Priority: Low Code(s): R10.9 - UNSPECIFIED ABDOMINAL PAIN SNOMED Code(s): 40791039 (3) Back pain Current Visit: No Status: Acute Priority: Medium Code(s): M54.9 - DORSALGIA, UNSPECIFIED SNOMED Code(s): 215835050 (4) Chest pain Current Visit: No Status: Acute Priority: Medium Code(s): R07.9 - CHEST PAIN, UNSPECIFIED SNOMED Code(s): 19533947 (5) HTN (hypertension) Current Visit: No Status: Acute Priority: Medium Code(s): I10 - ESSENTIAL (PRIMARY) HYPERTENSION SNOMED Code(s): 25857563 (6) Hyperlipemia Current Visit: No Status: Acute Priority: Medium Code(s): E78.5 - HYPERLIPIDEMIA, UNSPECIFIED SNOMED Code(s): 50852303 Plan: stop invega 12 mg po qhs for thought disorder and change to Latuda 20 mg at 1700 hrs; add Mirapex 1 mg po qhs for restless leg syndrome and 0.125 mg bid ; increase lamictal 200 mg po qhs for mood stability ; increase gabapentin 400 mg 3 times a day. Weekend coverage added mirtazapine and improved his sleep. Increase clonidine 0.2 mg 3 times a day.Remove nictoderm patch Highly recommend that he goes to [place] for substance abuse treatment since he is used multiple psychoactive substances on the street including alcohol, amphetamines and marijuana. Time with Patient: Less than 30
[2018-04-08] MEDS ORDERED: LURASIDONE 20 MG TAB PO SCH (17:00)
[2018-04-08] MEDS: PANTOPRAZOLE 40 MG TABLET PO SCH (17:08)
[2018-04-08] MEDS: lamoTRIgine 100 MG TAB PO SCH (21:17)
[2018-04-08] MEDS: MIRTAZAPINE 15 MG TAB PO SCH (21:18)
[2018-04-08] MEDS: PRAMIPEXOLE 1 MG TAB PO SCH (21:22)
[2018-04-09] MEDS: ACETAMINOPHEN TAB 325 MG TAB PO PRN ×3 (03:35→23:18)
[2018-04-09] MEDS: GABAPENTIN 400 MG CAP PO SCH ×3 (08:30→20:38)
[2018-04-09] MEDS: ASPIRIN 81 MG PO SCH (08:30)
[2018-04-09] MEDS: PRAMIPEXOLE 0.125 MG TAB PO SCH ×2 (08:30→20:37)
[2018-04-09] MEDS: amLODIPine 5 MG TAB PO SCH (08:30)
[2018-04-09] MEDS: guaiFENesin 600 MG TABLET.ER PO SCH ×2 (08:30→20:37)
[2018-04-09] MEDS: LISINOPRIL 20 MG TAB PO SCH (08:30)
[2018-04-09] MEDS: cloNIDine HCL 0.2 MG TAB PO SCH ×3 (08:30→20:37)
[2018-04-09] MEDS: PANTOPRAZOLE 40 MG TABLET PO SCH ×2 (08:31→18:29)
--- NOTE | 2018-04-09 12:22 | P.PN ---
Subjective Progress Note Date: 04/09/18 Principal diagnosis: bipolar disorder-depressed plus polysubstance abuse including amphetamines alcohol and marijuana I feel depressed and I have pain in shoulder and body again today with nasal cold and cough. I am still seeing more things and depressed. I can not sleep at night. I have pain in my chest and shoulder area.Fell out of bed last night and hurt shoulder. Xray negative for structural changes. He had difficult time getting sleep last night. He is now detoxed from the amphetamines and marijuana but still being treated for his bipolar affective disorder. Objective - Vital Signs Vital signs: Vital Signs Temp 97.8 F 04/09/18 02:00 Pulse 86 04/09/18 08:33 Resp 20 04/09/18 08:33 BP 146/77 04/09/18 08:33 Pulse Ox 98 04/02/18 01:31 - Labs CBC & Chem 7: 03/30/18 09:08 03/30/18 09:08 Assessment and Plan Assessment: HPI: This is a 47-year-old male the ER for evaluation. Patient recently of psychiatric illness, overdose. Patient has history of psychiatric illness with multiple ER visits. Patient states he is homeless significant living in the colon took overdose of Elavil 30 pills. Likely other drugs or alcohol. [facility]. In question about amphetamines in his urine he does not know where it came from. His urine drug screen when he came in the hospital was positive for amphetamines. MD Complaint: suicidal ideation, feels depressed -: days(s) Associated Psychiatric Symptoms: depression, suicidal ideation History of same: Yes Quality: constant Improves With: none Worsens With: drug use Context: not taking psychiatric medications Associated Symptoms: denies other symptoms - Related Data Home Medications Medication Instructions Recorded Confirmed Gabapentin 800 mg PO TID 01/10/18 03/29/18 Hydrochlorothiazide 25 mg PO DAILY 01/10/18 03/29/18 amLODIPine [Norvasc] 10 mg PO DAILY 03/13/18 03/29/18 Amitriptyline HCl [Elavil] 25 mg PO HS 03/16/18 03/29/18 Aspirin EC [Ecotrin Low Dose] 81 mg PO DAILY 03/16/18 03/29/18 Lisinopril [Zestril] 20 mg PO DAILY 03/25/18 03/29/18 Allergies Allergy/AdvReac Type Severity Reaction Status Date / Time ibuprofen [From Motrin] AdvReac Nausea & Verified 03/29/18 14:12 Vomiting simvastatin [From Zocor] AdvReac Dizziness Verified 03/29/18 14:12 Mental Status Examination - General Appearance: [ disheveled, appears older than stated age Speech/Language: [spontaneous, rapid, slurred, rambled, mumbling, Attitude/Behavior: [cooperative, guarded, Mood: [depressed /10, anxious /10, elated, irritable, angry, fearful, hopelessness] Affect: [ lively, flat, incongruent, labile, blunted constricted Orientation: [time, person, place situation] Thought Content: [wnl, Risk Factors: [he is not suicidal (ideations, plan), and/or Homicidal (ideations , plan), other] Perception: [wnl Thought Processes: [goal-oriented Concentration/Attention Span: [wnl] [Per observation and interview with the patient] Recent Memory: [wnl] [3 out of 3 in 3 minutes] Remote Memory: [wnl] [past events, as related history] Intelligence: [below average] [based on history, based on vocabulary, syntax, grammar, and content] Judgement: [ fair] [per patient's behavior/history of present illness] Insight: [ fair] [understanding severity of illness/history of present illness] Diagnoses: Bipolar affective disorder with poly substance abuse which includes amphetamine alcohol marijuana which is severe in nature and needs residential treatment (1) Depression Current Visit: Yes Status: Acute Priority: Medium Code(s): F32.9 - MAJOR DEPRESSIVE DISORDER, SINGLE EPISODE, UNSPECIFIED SNOMED Code(s): 04009979 (2) Abdominal pain Current Visit: No Status: Resolved Priority: Low Code(s): R10.9 - UNSPECIFIED ABDOMINAL PAIN SNOMED Code(s): 19951290 (3) Back pain Current Visit: No Status: Acute Priority: Medium Code(s): M54.9 - DORSALGIA, UNSPECIFIED SNOMED Code(s): 504620137 (4) Chest pain Current Visit: No Status: Acute Priority: Medium Code(s): R07.9 - CHEST PAIN, UNSPECIFIED SNOMED Code(s): 76767635 (5) HTN (hypertension) Current Visit: No Status: Acute Priority: Medium Code(s): I10 - ESSENTIAL (PRIMARY) HYPERTENSION SNOMED Code(s): 31361173 (6) Hyperlipemia Current Visit: No Status: Acute Priority: Medium Code(s): E78.5 - HYPERLIPIDEMIA, UNSPECIFIED SNOMED Code(s): 31098675 Plan: thought disorder and change to Latuda 10 mg at 1700 hrs; add Mirapex 1 mg po qhs for restless leg syndrome and 0.125 mg bid ;increase lamictal 200 mg po qhs for mood stability ; increase gabapentin 400 mg 3 times a day. Weekend coverage added mirtazapine and improved his sleep. Increase clonidine 0.2 mg 3 times a day.Remove nictoderm patch Highly recommend that he goes to [place] for substance abuse treatment since he is used multiple psychoactive substances on the street including alcohol, amphetamines and marijuana. Time with Patient: Less than 30
[2018-04-09] MEDS: PRAMIPEXOLE 1 MG TAB PO SCH (20:37)
[2018-04-09] MEDS: lamoTRIgine 100 MG TAB PO SCH (20:37)
[2018-04-09] MEDS ORDERED: traZODone HCL 50 MG TAB PO SCH (21:00)
[2018-04-10] MEDS ORDERED: traMADol 50 MG TAB PO STA (00:22)
[2018-04-10] MEDS: ASPIRIN 81 MG PO SCH (08:29)
[2018-04-10] MEDS: PANTOPRAZOLE 40 MG TABLET PO SCH ×2 (08:29→15:51)
[2018-04-10] MEDS: PRAMIPEXOLE 0.125 MG TAB PO SCH ×2 (08:29→22:30)
[2018-04-10] MEDS: cloNIDine HCL 0.2 MG TAB PO SCH ×3 (08:29→21:01)
[2018-04-10] MEDS: LURASIDONE 20 MG TAB PO SCH (08:30)
[2018-04-10] MEDS: amLODIPine 5 MG TAB PO SCH (08:30)
[2018-04-10] MEDS: GABAPENTIN 400 MG CAP PO SCH ×3 (08:30→21:01)
[2018-04-10] MEDS: guaiFENesin 600 MG TABLET.ER PO SCH ×2 (08:30→20:59)
[2018-04-10] MEDS: LISINOPRIL 20 MG TAB PO SCH (08:30)
--- NOTE | 2018-04-10 09:47 | US ---
EXAMINATION TYPE: US extremity nonvasc mass LT DATE OF EXAM: 04/10/2018 COMPARISON: NONE CLINICAL HISTORY: r/o abscess. Pt has oozing wound left posterior foot No evidence of localized fluid collection posterior left foot to suggest abscess/ Soft tissue edema visualized At the site of patient's symptomatology ultrasound was performed in the posterior left foot. IMPRESSION: Correlate for cellulitis. MRI may be of benefit. Limited exam.
--- NOTE | 2018-04-10 11:46 | P.PN ---
Subjective Progress Note Date: 04/10/18 The patient was seen and evaluated in the [facility]. He c/o L foot pain on-going for the past several days with noticing purulent and bloody drainage earlier today. He otherwise denied fever, chills, nausea, vomiting, recent immobilization, or instrumentation of the foot. He notes chronic foot issues and poor hygiene since he's homeless. Objective - Vital Signs Vital signs: Vital Signs Temp 98.3 F 04/10/18 06:35 Pulse 86 04/10/18 08:47 Resp 20 04/10/18 08:47 BP 128/68 04/10/18 08:47 Pulse Ox 98 04/02/18 01:31 - Exam General: Non-toxic, in no acute distress, appears stated age HEENT: NC/AT, anicteric sclerae, moist conjunctiva, no lid-lag, PERRLA Cardiovascular: S1/S2 wnl, no murmurs, rubs, or gallops Lungs: Clear to auscultation, normal respiratory effort, no accessory muscle use Abdominal: Soft, nontender, non-distended, no guarding, rebound, or rigidity Skin: Warm, dry Extremities: L foot erythema and swelling w/ tenderness, no clear demarcation, possible underlying area of fluctuation, able to move all toes and bear weight Psychiatric: Alert and oriented to person, place and time, appropriate affect, Intact judgment Neuro: CN II-XII grossly intact, Strength 5/5 in all 4 extremities, Speech intact, Sensation to light touch grossly intact throughout - Labs CBC & Chem 7: 03/30/18 09:08 03/30/18 09:08 Assessment and Plan Plan: L foot erythema and swelling, cellulitis, can not rule out underlying abscess -Will start Clindamycin 450 mg q6h -Obtain wound culture -ID consult -Ultrasound of L foot showing no discernible collection. Will consider MRI of L foot. HTN -C/w Norvasc, Clonidine, and Lisinopril ?DM -Pt is documented as previously taking Metformin as outpatient. A1C 4.8. -Will obtain FS Depression -Will defer to psychiatry Thank you for allowing us to participate in the care of this patient. We will follow peripherally. Do not hesitate to contact us with questions. Someone can be reached from the [facility] hospitalist group at all hours of the day at [phone].
[2018-04-10] MEDS: CLINDAMYCIN 150 MG CAP PO SCH ×3 (12:32→21:00)
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
[2018-04-10] MEDS: ACETAMINOPHEN TAB 325 MG TAB PO PRN ×2 (15:52→22:33)
[2018-04-10] MEDS: lamoTRIgine 100 MG TAB PO SCH (20:59)
[2018-04-10] MEDS ORDERED: traZODone HCL 100 MG TAB PO SCH (21:00)
[2018-04-10] MEDS: PRAMIPEXOLE 1 MG TAB PO SCH (22:30)
[2018-04-10] MEDS ORDERED: LIDOCAINE 2% GEL 30 ML TUBE TOPICAL PRN (22:55)
[2018-04-11 05:28] VITALS: BP 135/72; PULSE 79; RESP 16; TEMP 97.8
[2018-04-11] MEDS: ACETAMINOPHEN TAB 325 MG TAB PO PRN (07:26)
[2018-04-11] MEDS: PRAMIPEXOLE 0.125 MG TAB PO SCH (07:51)
[2018-04-11] MEDS: PANTOPRAZOLE 40 MG TABLET PO SCH (07:52)
[2018-04-11] MEDS: GABAPENTIN 400 MG CAP PO SCH (07:52)
[2018-04-11] MEDS: cloNIDine HCL 0.2 MG TAB PO SCH (07:52)
[2018-04-11] MEDS: ASPIRIN 81 MG PO SCH (07:52)
[2018-04-11] MEDS: guaiFENesin 600 MG TABLET.ER PO SCH (07:52)
[2018-04-11] MEDS: LISINOPRIL 20 MG TAB PO SCH (07:52)
[2018-04-11] MEDS: amLODIPine 5 MG TAB PO SCH (07:52)
[2018-04-11] MEDS: CLINDAMYCIN 150 MG CAP PO SCH (07:52)
[2018-04-11] MEDS: LURASIDONE 20 MG TAB PO SCH (07:52)
--- NOTE | 2018-04-11 09:31 | P.DS ---
Providers Date of admission: 03/29/18 16:27 Expected date of discharge: 04/11/18 Attending physician: Efrain Meyer DO Consults: 03/29/18 17:56 Consult Physician Routine Consulting Provider: Alfredo Paz Consult Reason/Comments: H&P for mental health consult Do you want consulting provider notified?: Yes 04/08/18 13:04 Consult Physician Routine Consulting Provider: Slim Covington Consult Reason/Comments: discolored toenails from wearing small shoes. Do you want consulting provider notified?: Yes 04/10/18 08:59 Consult Physician Urgent Consulting Provider: Poncho Rice Consult Reason/Comments: pt has left foot abcess, and is draining, and warm, and is red Do you want consulting provider notified?: Yes Primary care physician: Viktoria Richardson MD - Discharge Diagnosis(es) (1) Depression HPI: This is a 47-year-old male the ER for evaluation. Patient recently of psychiatric illness, overdose. Patient has history of psychiatric illness with multiple ER visits. Patient states he is homeless significant living in the colon took overdose of Elavil 30 pills. Likely other drugs or alcohol MD Complaint: suicidal ideation, feels depressed -: days(s) Associated Psychiatric Symptoms: depression, suicidal ideation History of same: Yes Quality: constant Improves With: none Worsens With: drug use Context: not taking psychiatric medications Associated Symptoms: denies other symptoms - Related Data Home Medications Medication Instructions Recorded Confirmed Gabapentin 800 mg PO TID 01/10/18 03/29/18 Hydrochlorothiazide 25 mg PO DAILY 01/10/18 03/29/18 amLODIPine [Norvasc] 10 mg PO DAILY 03/13/18 03/29/18 Amitriptyline HCl [Elavil] 25 mg PO HS 03/16/18 03/29/18 Aspirin EC [Ecotrin Low Dose] 81 mg PO DAILY 03/16/18 03/29/18 Lisinopril [Zestril] 20 mg PO DAILY 03/25/18 03/29/18 Allergies Allergy/AdvReac Type Severity Reaction Status Date / Time ibuprofen [From Motrin] AdvReac Nausea & Verified 03/29/18 14:12 Vomiting simvastatin [From Zocor] AdvReac Dizziness Verified 03/29/18 14:12 Past Medical History Past Medical History: Atrial Fibrillation, Hyperlipidemia, Hypertension Additional Past Medical History / Comment(s): Pt recently admitted on 03/13/18 with costrochondritis with abnormal stress echo/ normal cardiac cath. Other hx : Chronic pain, chronic low back pain with bilateral sciatica, neuropathy bilateral hands/feet, migraines, partial SBO, kidney stones. History of Any Multi-Drug Resistant Organisms: None Reported Past Surgical History: Heart Catheterization, Orthopedic Surgery Additional Past Surgical History / Comment(s): 03/14/18 Cardiac cath-normal coronaries, L shoulder rotator cuff repair x2, cervical injection. Past Anesthesia/Blood Transfusion Reactions: No Reported Reaction Past Psychological History: No Psychological Hx Reported Smoking Status: Current every day smoker Past Alcohol Use History: None Reported, Occasional Past Drug Use History: None Reported, Marijuana - Past Family History Father Family Medical History: Myocardial Infarction ([place]) Additional Family Medical History / Comment(s): mi at age 35, still living Mother Family Medical History: Myocardial Infarction ([place]) Additional Family Medical History / Comment(s): Mother has had at least one [place]- pt unsure at what age. He has not had much contact with his mother since he was 17 yrs old. Current Visit: Yes Status: Chronic Priority: Low (2) Back pain Current Visit: No Status: Chronic Priority: Low (3) HTN (hypertension) Current Visit: No Status: Chronic Priority: Low (4) Hyperlipemia Current Visit: No Status: Chronic Priority: Low Hospital Course: Clindamycin [Cleocin] 450 mg PO QID 10 Days #40 cap 04/11/18 [Rx] Gabapentin [Neurontin] 400 mg PO TID 30 Days #90 cap 04/11/18 [Rx] Lisinopril [Zestril] 20 mg PO DAILY 30 Days #30 tab 04/11/18 [Rx] Lurasidone [Latuda] 20 mg PO DAILY 30 Days #30 tab 04/11/18 [Rx] Pantoprazole [Protonix] 40 mg PO AC-BID 30 Days #30 tablet. 04/11/18 [Rx] Pramipexole [Mirapex] 0.125 mg PO BID 30 Days #60 tab 04/11/18 [Rx] Pramipexole [Mirapex] 1 mg PO 2100 30 Days #30 tab 04/11/18 [Rx] amLODIPine [Norvasc] 10 mg PO DAILY 30 Days #30 tab 04/11/18 [Rx] cloNIDine HCL [Catapres] 0.2 mg PO TID 30 Days #90 tab 04/11/18 [Rx] guaiFENesin [Mucinex] 600 mg PO Q12HR 10 Days #20 tablet.er 04/11/18 [Rx] lamoTRIgine [LaMICtal] 200 mg PO 2100 30 Days #60 tab 04/11/18 [Rx] traZODone HCL [Desyrel] 200 mg PO HS 30 Days #30 tab 04/11/18 [Rx] Hospital course: He was treated with clindamycin for the infection in his left toe foot area and needs to stay on this. Gabapentin is for his peripheral nerve in light pain. Zestril is for his hypertension. I Latuda is for his psychotic behavior and part of his bipolar affective disorder and polysubstance use. Mirapex is for his restless leg syndrome and he gets a day dose of 0.125 mg by mouth twice a day during the day and a nighttime dose of 1 mg U 2100 hrs. Catapres 0.2 mg 3 times a day for hypertension and anxiety which is proven well in him and have not had to use any other benzodiazepines. He is on Lamictal 200 mg by mouth daily at bedtime for mood stabilizer. He also had difficulty with sleep and was placed on trazodone 200 mg by mouth daily at bedtime. He has a difficult sleep architecture due to his polysubstance abuse and will take nearly 2 years to resolve. Mental status examination time of discharge: The patient presents alert, pleasant, and cooperative. There calmly seated without any agitated behavior. [He] reports that [his] mood is good. Affect is congruent and euthymic. [He] deny having any suicidal or homicidal ideation intent or plan. [He] denies any auditory or visual hallucinations. There is no evidence of any delusional thought content. [His] thought process is linear and goal-directed. [His] speech is fluent and nonpressured. [His] memory and concentration is grossly intact for the purposes of this session. He'll be going to residential substance abuse treatment at time of discharge today 04/11/2018 his medicines were sent to write it on and should be available to any writing a by transferring him to the closest where rehab is located. Patient Condition at Discharge: Stable Plan - Discharge Summary Discharge Rx Participant: No New Discharge Prescriptions: New Clindamycin [Cleocin] 450 mg PO QID 10 Days #40 cap cloNIDine HCL [Catapres] 0.2 mg PO TID 30 Days #90 tab Gabapentin [Neurontin] 400 mg PO TID 30 Days #90 cap guaiFENesin [Mucinex] 600 mg PO Q12HR 10 Days #20 tablet.er lamoTRIgine [LaMICtal] 200 mg PO 2100 30 Days #60 tab Lisinopril [Zestril] 20 mg PO DAILY 30 Days #30 tab Lurasidone [Latuda] 20 mg PO DAILY 30 Days #30 tab Pantoprazole [Protonix] 40 mg PO AC-BID 30 Days #30 tablet. Pramipexole [Mirapex] 0.125 mg PO BID 30 Days #60 tab Pramipexole [Mirapex] 1 mg PO 2100 30 Days #30 tab traZODone HCL [Desyrel] 200 mg PO HS 30 Days #30 tab Continue amLODIPine [Norvasc] 10 mg PO DAILY 30 Days #30 tab Discontinued Hydrochlorothiazide 25 mg PO DAILY Gabapentin 800 mg PO TID Aspirin EC [Ecotrin Low Dose] 81 mg PO DAILY Amitriptyline HCl [Elavil] 25 mg PO HS Lisinopril [Zestril] 20 mg PO DAILY Discharge Medication List Clindamycin [Cleocin] 450 mg PO QID 10 Days #40 cap 04/11/18 [Rx] Gabapentin [Neurontin] 400 mg PO TID 30 Days #90 cap 04/11/18 [Rx] Lisinopril [Zestril] 20 mg PO DAILY 30 Days #30 tab 04/11/18 [Rx] Lurasidone [Latuda] 20 mg PO DAILY 30 Days #30 tab 04/11/18 [Rx] Pantoprazole [Protonix] 40 mg PO AC-BID 30 Days #30 tablet. 04/11/18 [Rx] Pramipexole [Mirapex] 0.125 mg PO BID 30 Days #60 tab 04/11/18 [Rx] Pramipexole [Mirapex] 1 mg PO 2100 30 Days #30 tab 04/11/18 [Rx] amLODIPine [Norvasc] 10 mg PO DAILY 30 Days #30 tab 04/11/18 [Rx] cloNIDine HCL [Catapres] 0.2 mg PO TID 30 Days #90 tab 04/11/18 [Rx] guaiFENesin [Mucinex] 600 mg PO Q12HR 10 Days #20 tablet.er 04/11/18 [Rx] lamoTRIgine [LaMICtal] 200 mg PO 2100 30 Days #60 tab 04/11/18 [Rx] traZODone HCL [Desyrel] 200 mg PO HS 30 Days #30 tab 04/11/18 [Rx] Follow up Appointment(s)/Referral(s): [facility] [Outside] - 04/11/18 11:00 am Viktoria Richardson MD [Primary Care Provider] - 1-2 days Patient Instructions/Handouts: Depression (GEN), Suicide Prevention (GEN) Activity/Diet/Wound Care/Special Instructions: Activity and diet as tolerated. Avoid the use of street drugs and alcohol. Take all medications as prescribed. When you are in need of refills on your medications please contact your medical provider and/or outpatient psychiatrist to have this done. Please go to scheduled outpatient appointment for aftercare treatment. If symptoms return or become worse, call the crisis line at [phone] and/or go to the nearest emergency room for evaluation. Discharge Disposition: HOME SELF-CARE
== END 2018-04-11 10:09 | disposition home or self-care (01) | DRG 885 ==
LOC: EC 11:48 → 3MHU 16:27
PROVIDERS: ADMIT Psychiatry & Neurology Psychiatry; ATTEND Psychiatry & Neurology Psychiatry
DX: F33.2 Major depressive disorder, recurrent severe without psychotic features (principal); E78.5 Hyperlipidemia, unspecified; F17.200 Nicotine dependence, unspecified, uncomplicated; F41.9 Anxiety disorder, unspecified; G25.81 Restless legs syndrome; I10 Essential (primary) hypertension; I48.91 Unspecified atrial fibrillation; W06.XXXA Fall from bed, initial encounter; Z59.0 Homelessness; Z79.899 Other long term (current) drug therapy; Z82.49 Family history of ischemic heart disease and other diseases of the circulatory system; Z87.442 Personal history of urinary calculi; Z91.5 Personal history of self-harm; Z88.6 Allergy status to analgesic agent; Z88.8 Allergy status to other drugs, medicaments and biological substances; M25.512 Pain in left shoulder; M54.9 Dorsalgia, unspecified
CPT/HCPCS: 36415; 80053; 80061; 80306; 80320; 81003; 82075; 82550; 82553; 83036; 83520; 84443; 84484; 85025; 85610; 87070; 87075; 87077; 87102; 87186; 87205; 93005; 99285

== ENCOUNTER 2018-04-29 15:13 | Emergency (ER) | payer OTHER ==
[2018-04-29 15:22] VITALS: TEMP 98.1
[2018-04-29] MEDS ORDERED: SODIUM CHLORIDE 0.9% 500 ML 500 ML IV STA (15:30)
[2018-04-29] MEDS ORDERED: MORPHINE SULFATE 4 MG/ML SYRINGE IVP PRN (15:42)
--- NOTE | 2018-04-29 15:42 | ED ---
General Adult HPI - General Chief complaint: Abdominal Pain Stated complaint: POSS HERNIA OR KIDNEY STONES Source: patient Mode of arrival: ambulatory Limitations: no limitations - History of Present Illness Initial comments: Dictation was produced using [employer] dictation software. please excuse any grammatical, word or spelling errors. Chief Complaint: 47-year-old male past medical history dyslipidemia, psychiatric disease presents with right-sided flank pain. History of Present Illness: Patient states his symptoms have been ongoing for approximately 3-5 days. He states that it is started after he was coughing. He was worried he has recurrent kidney stone versus hernia. Patient denies any nausea or abdominal pain. He does have dysuria. No diarrhea. Reports that the pain is constant lower indicated to the right pubic area. No constitutional symptoms. The ROS documented in this emergency department record has been reviewed and confirmed by me. Those systems with pertinent positive or negative responses have been documented in the HPI. All other systems are other negative and/or noncontributory. - Related Data Previous Rx's Medication Instructions Recorded Gabapentin [Neurontin] 400 mg PO TID 30 Days #90 cap 04/11/18 Lisinopril [Zestril] 20 mg PO DAILY 30 Days #30 tab 04/11/18 Lurasidone [Latuda] 20 mg PO DAILY 30 Days #30 tab 04/11/18 Pantoprazole [Protonix] 40 mg PO AC-BID 30 Days #30 04/11/18 tablet. Pramipexole [Mirapex] 0.125 mg PO BID 30 Days #60 tab 04/11/18 Pramipexole [Mirapex] 1 mg PO 2100 30 Days #30 tab 04/11/18 amLODIPine [Norvasc] 10 mg PO DAILY 30 Days #30 tab 04/11/18 cloNIDine HCL [Catapres] 0.2 mg PO TID 30 Days #90 tab 04/11/18 guaiFENesin [Mucinex] 600 mg PO Q12HR 10 Days #20 04/11/18 tablet.er lamoTRIgine [LaMICtal] 200 mg PO 2100 30 Days #60 tab 04/11/18 traZODone HCL [Desyrel] 200 mg PO HS 30 Days #30 tab 04/11/18 Allergies Allergy/AdvReac Type Severity Reaction Status Date / Time ibuprofen [From Motrin] AdvReac Nausea & Verified 12/25/18 15:55 Vomiting simvastatin [From Zocor] AdvReac Dizziness Verified 04/29/18 15:55 Review of Systems ROS Statement: Those systems with pertinent positive or pertinent negative responses have been documented in the HPI. ROS Other: All systems not noted in ROS Statement are negative. Past Medical History Past Medical History: Atrial Fibrillation, Hyperlipidemia, Hypertension Additional Past Medical History / Comment(s): Pt recently admitted on 03/13/18 with costrochondritis with abnormal stress echo/ normal cardiac cath. Other hx : Chronic pain, chronic low back pain with bilateral sciatica, neuropathy bilateral hands/feet, migraines, partial SBO, kidney stones. History of Any Multi-Drug Resistant Organisms: MRSA Date of last positivie culture/infection: 04/10/18 MDRO Source:: TOE Past Surgical History: Heart Catheterization, Orthopedic Surgery Additional Past Surgical History / Comment(s): 03/14/18 Cardiac cath-normal coronaries, L shoulder rotator cuff repair x2, cervical injection. Past Anesthesia/Blood Transfusion Reactions: No Reported Reaction Past Psychological History: Bipolar, Depression, Schizophrenia Smoking Status: Current every day smoker Past Alcohol Use History: None Reported Past Drug Use History: None Reported, Marijuana - Past Family History Father Family Medical History: Myocardial Infarction ([place]) Additional Family Medical History / Comment(s): mi at age 35, still living Mother Family Medical History: Myocardial Infarction ([place]) Additional Family Medical History / Comment(s): Mother has had at least one [place]- pt unsure at what age. He has not had much contact with his mother since he was 17 yrs old. General Exam - General Exam Comments Initial Comments: PHYSICAL EXAM: General Impression: Alert and oriented x3, not in acute distress HEENT: Normocephalic atraumatic, extra-ocular movements intact, pupils equal and reactive to light bilaterally, mucous membranes moist. Cardiovascular: Heart regular rate and rhythm, S1&S2 audible, no murmurs, rubs or gallops Chest: Lungs clear to auscultation bilaterally, no rhonchi, no wheeze, no rales Abdomen: Bowel sounds present, abdomen soft, mild tenderness to the right flank , non-distended, no organomegaly Musculoskeletal: Pulses present and equal in all extremities, no peripheral edema Motor: Power 5/5 bilaterally, no focal deficits noted Neurological: CN II-XII grossly intact, no focal motor or sensory deficits noted Skin: Intact with no visualized rashes Psych: Normal affect and mood exam: Symmetrical testicular size. Mild tenderness to the superior portion of the right testicle. No scrotal abnormalities. No palpable mass with Valsalva. Limitations: no limitations Course Vital Signs 04/29/18 15:19 Temperature 98.1 F Pulse Rate 66 Respiratory 18 Rate Blood Pressure 127/72 O2 Sat by Pulse 100 Oximetry Medical Decision Making - Medical Decision Making ED course: 47-year-old male with chief complaint of right-sided flank pain. Physical examination is worrisome for right scrotal abnormality. Patient does have history of kidney stones. Vital signs upon arrival are within acceptable limits.Lavatory evaluation obtained. CBC, metabolic panel, urinalysis unremarkable. Ultrasound of the scrotum and abdominal bladder ultrasound were both unremarkable. Patient was given analgesics. He is observed in emergency department for several hours with dramatic improvement of symptoms. Discussed patient that his symptoms may reflect hernia. He however is not experiencing any significant abdominal symptoms. No nausea or vomiting or abdominal pain. Patient agreeable to follow up with primary care physician for outpatient CT. - Lab Data Result diagrams: 04/29/18 15:48 04/29/18 15:48 Lab Results 04/29/18 04/29/18 04/29/18 Range/Units 15:48 15:48 15:48 WBC 8.5 (3.8-10.6) k/uL RBC 4.51 (4.30-5.90) m/uL Hgb 14.5 (13.0-17.5) gm/dL Hct 41.2 (39.0-53.0) % MCV 91.4 (80.0-100.0) fL MCH 32.1 (25.0-35.0) pg MCHC 35.1 (31.0-37.0) g/dL RDW 13.6 (11.5-15.5) % Plt Count 250 (150-450) k/uL Neutrophils % 59 % Lymphocytes % 29 % Monocytes % 7 % Eosinophils % 3 % Basophils % 1 % Neutrophils # 5.0 (1.3-7.7) k/uL Lymphocytes # 2.4 (1.0-4.8) k/uL Monocytes # 0.6 (0-1.0) k/uL Eosinophils # 0.3 (0-0.7) k/uL Basophils # 0.1 (0-0.2) k/uL Sodium 139 (137-145) mmol/L Potassium 4.0 (3.5-5.1) mmol/L Chloride 109 H (98-107) mmol/L Carbon Dioxide 23 (22-30) mmol/L Anion Gap 7 mmol/L BUN 11 (9-20) mg/dL Creatinine 0.81 (0.66-1.25) mg/dL Est GFR (CKD-EPI)AfAm >90 (>60 ml/min/1.73 sqM) Est GFR (CKD-EPI)NonAf >90 (>60 ml/min/1.73 sqM) Glucose 104 H (74-99) mg/dL Calcium 8.9 (8.4-10.2) mg/dL Total Bilirubin 0.4 (0.2-1.3) mg/dL AST 27 (17-59) U/L ALT 24 (21-72) U/L Alkaline Phosphatase 59 (38-126) U/L Total Protein 7.1 (6.3-8.2) g/dL Albumin 4.0 (3.5-5.0) g/dL Lipase 60 (23-300) U/L Urine Color Yellow Urine Appearance Clear (Clear) Urine pH 6.0 (5.0-8.0) Ur Specific [place] 1.019 (1.001-1.035) Urine Protein Negative (Negative) Urine Glucose (UA) Negative (Negative) Urine Ketones Negative (Negative) Urine Blood Negative (Negative) Urine Nitrite Negative (Negative) Urine Bilirubin Negative (Negative) Urine Urobilinogen <2.0 (<2.0) mg/dL Ur Leukocyte Esterase Negative (Negative) Disposition Clinical Impression: Testicular pain Disposition: HOME SELF-CARE Condition: Good Instructions: Inguinal Hernia (ED) Is patient prescribed a controlled substance at d/c from ED?: No Referrals: Viktoria Richardson MD [Primary Care Provider] - 1-2 days Time of Disposition: 17:23
[2018-04-29 16:08] LABS: Appearance,Urine Clear (Clear); Bilirubin,Urine Negative (Negative); Blood,Urine Negative (Negative); Color,Urine Yellow; Glucose,Urine (UA) Negative (Negative); Ketones,Urine Negative (Negative); Leukocyte Esterase,Urine Negative (Negative); Nitrite,Urine Negative (Negative); Protein,Urine Negative (Negative); Specific Gravity,Urine 1.019 (1.001-1.035); Urobilinogen,Urine <2.0 mg/dL (<2.0)
[2018-04-29 16:09] LABS: Basophils # (A) 0.1 k/uL (0-0.2); Basophils % (A) 1 %; Eosinophils # (A) 0.3 k/uL (0-0.7); Eosinophils % (A) 3 %; HCT 41.2 % (39.0-53.0); HGB 14.5 gm/dL (13.0-17.5); Lymphocytes # (A) 2.4 k/uL (1.0-4.8); Lymphocytes % (A) 29 %; MCH 32.1 pg (25.0-35.0); MCHC 35.1 g/dL (31.0-37.0); MCV 91.4 fL (80.0-100.0); Mean Platelet Volume 8.1; Monocytes # (A) 0.6 k/uL (0-1.0); Monocytes % (A) 7 %; Neutrophils % (A) 59 %; Platelet Count 250 k/uL (150-450); RBC 4.51 m/uL (4.30-5.90); RDW 13.6 % (11.5-15.5); WBC 8.5 k/uL (3.8-10.6)
[2018-04-29 16:17] LABS: ALT 24 U/L (21-72); AST 27 U/L (17-59); Alkaline Phosphatase 59 U/L (38-126); Anion Gap 7 mmol/L; Blood Urea Nitrogen 11 mg/dL (9-20); Calcium 8.9 mg/dL (8.4-10.2); Carbon Dioxide 23 mmol/L (22-30); Chloride 109 mmol/L (98-107); Glucose 104 mg/dL (74-99); Lipase 60 U/L (23-300); Sodium 139 mmol/L (137-145); Total Bilirubin 0.4 mg/dL (0.2-1.3); Total Protein 7.1 g/dL (6.3-8.2)
--- NOTE | 2018-04-29 16:42 | US ---
EXAMINATION TYPE: US kidneys/renal and bladder DATE OF EXAM: 04/29/2018 COMPARISON: August 13, 2015 CLINICAL HISTORY: Pain. rt flank pain, h/o renal stones EXAM MEASUREMENTS: Right Kidney: 11.6 x 5.7 x 6.0 cm Left Kidney: 11.5 x 5.1 x 6.0 cm Right Kidney: No hydronephrosis or masses seen Left Kidney: No hydronephrosis or masses seen Bladder: non distended, pt voided prior to exam There is no evidence for hydronephrosis at this point in time. No nephrolithiasis is seen. No jonny s are identified. The urinary bladder is anechoic. Bilateral ureteral jets are seen. IMPRESSION: Bladder is empty. No evidence of renal mass or obstruction. No adverse change compared to old exam.
--- NOTE | 2018-04-29 16:44 | US ---
EXAMINATION TYPE: US scrotum with doppler. Grayscale and color Doppler Duplex imaging performed of t marti scrotum. DATE OF EXAM: 04/29/2018 COMPARISON: NONE CLINICAL HISTORY: Pain. rt testicle pain and swelling EXAM MEASUREMENTS: TESTICLES: Right Testicle: 5.0 x 3.5 x 2.7 cm Left Testicle: 4.7 x 3.3 x 2.6 cm EPIDIDYMIS HEAD: Right Epididymis: 1.2 cm Left Epididymis: 1.3 cm Doppler performed to assess for testicular vascularity; good bilateral color flow and waveforms are s een. There is no evidence of testicular torsion. Presence of hydroceles: yes, bilateral, laterosuperior to testicles Presence of varicoceles: mild on the left IMPRESSION: No evidence of testicular torsion or mass. Mild bilateral hydroceles.
[2018-04-29 17:38] VITALS: BP 130/73; PULSE 72; RESP 16
== END 2018-04-29 17:36 | disposition home or self-care (01) ==
LOC: EC 15:13
DX: N50.811 Right testicular pain (principal); I48.91 Unspecified atrial fibrillation; I10 Essential (primary) hypertension; G62.9 Polyneuropathy, unspecified; F31.9 Bipolar disorder, unspecified; F20.9 Schizophrenia, unspecified; F17.200 Nicotine dependence, unspecified, uncomplicated; Z88.6 Allergy status to analgesic agent; Z88.8 Allergy status to other drugs, medicaments and biological substances; Z87.442 Personal history of urinary calculi; Z95.5 Presence of coronary angioplasty implant and graft
CPT/HCPCS: 36415; 80053; 83690; 85025; 81003; 93975; 76870; 76770; 99284; 96374; J2270

== ENCOUNTER 2018-05-15 12:10 | Emergency (ER) | payer OTHER ==
[2018-05-15 12:14] VITALS: RESP 18
[2018-05-15] MEDS ORDERED: MORPHINE SULFATE 4 MG/ML SYRINGE IV STA (12:24)
[2018-05-15] MEDS ORDERED: SODIUM CHLORIDE 0.9% 1,000 ML IV STA ×2 (12:24)
--- NOTE | 2018-05-15 12:46 | ED ---
Abdominal Pain HPI - General Chief Complaint: Abdominal Pain Stated Complaint: poss hernia Time Seen by Provider: 05/15/18 12:16 Source: patient, RN notes reviewed, old records reviewed Mode of arrival: ambulatory Limitations: no limitations - History of Present Illness Initial Comments: This is a 47-year-old male to the ER for evaluation. Patient presented with right flank pain right groin pain right lower quadrant abdominal pain. Patient states he feels like he may have a hernia, does not remember any injury or starting of this issue. But symptoms have persisted progressed. He says he is been told that he has a hernia before. Denies difficulty with urination no difficulty with bowel movements, no nausea vomiting. No fevers. No prior history of similar abdominal pain MD Complaint: abdominal pain (Right lower quadrant) -: days(s) Location: RLQ, suprapubic Radiation: RLQ Migration to: suprapubic Severity: mild Severity scale (1-10): 2 Quality: aching Consistency: constant Improves With: nothing Worsens With: nothing Associated Symptoms: nausea - Related Data Home Medications Medication Instructions Recorded Confirmed Hydrochlorothiazide 25 mg PO DAILY 05/15/18 05/15/18 Previous Rx's Medication Instructions Recorded Gabapentin [Neurontin] 400 mg PO TID 30 Days #90 cap 04/11/18 Lisinopril [Zestril] 20 mg PO DAILY 30 Days #30 tab 04/11/18 Lurasidone [Latuda] 20 mg PO DAILY 30 Days #30 tab 04/11/18 Pantoprazole [Protonix] 40 mg PO AC-BID 30 Days #30 04/11/18 tablet. Pramipexole [Mirapex] 0.125 mg PO BID 30 Days #60 tab 04/11/18 Pramipexole [Mirapex] 1 mg PO 2100 30 Days #30 tab 04/11/18 amLODIPine [Norvasc] 10 mg PO DAILY 30 Days #30 tab 04/11/18 cloNIDine HCL [Catapres] 0.2 mg PO TID 30 Days #90 tab 04/11/18 lamoTRIgine [LaMICtal] 200 mg PO 2100 30 Days #60 tab 04/11/18 traZODone HCL [Desyrel] 200 mg PO HS 30 Days #30 tab 04/11/18 Allergies Allergy/AdvReac Type Severity Reaction Status Date / Time ibuprofen [From Motrin] AdvReac Nausea & Verified 05/15/18 12:55 Vomiting simvastatin [From Zocor] AdvReac Dizziness Verified 05/15/18 12:55 Review of Systems ROS Statement: Those systems with pertinent positive or pertinent negative responses have been documented in the HPI. ROS Other: All systems not noted in ROS Statement are negative. Past Medical History Past Medical History: Atrial Fibrillation, Hyperlipidemia, Hypertension Additional Past Medical History / Comment(s): Pt recently admitted on 03/13/18 with costrochondritis with abnormal stress echo/ normal cardiac cath. Other hx : Chronic pain, chronic low back pain with bilateral sciatica, neuropathy bilateral hands/feet, migraines, partial SBO, kidney stones. History of Any Multi-Drug Resistant Organisms: MRSA Date of last positivie culture/infection: 04/10/18 MDRO Source:: TOE Past Surgical History: Heart Catheterization, Orthopedic Surgery Additional Past Surgical History / Comment(s): 03/14/18 Cardiac cath-normal coronaries, L shoulder rotator cuff repair x2, cervical injection. Past Anesthesia/Blood Transfusion Reactions: No Reported Reaction Past Psychological History: Bipolar, Depression, Schizophrenia Smoking Status: Current every day smoker Past Alcohol Use History: None Reported Past Drug Use History: Marijuana - Past Family History Father Family Medical History: Myocardial Infarction ([place]) Additional Family Medical History / Comment(s): mi at age 35, still living Mother Family Medical History: Myocardial Infarction ([place]) Additional Family Medical History / Comment(s): Mother has had at least one [place]- pt unsure at what age. He has not had much contact with his mother since he was 17 yrs old. General Exam Limitations: no limitations General appearance: alert, in no apparent distress Head exam: Present: atraumatic, normocephalic, normal inspection Eye exam: Present: normal appearance, PERRL, EOMI. Absent: scleral icterus, conjunctival injection, periorbital swelling ENT exam: Present: normal exam, mucous membranes moist Neck exam: Present: normal inspection. Absent: tenderness, meningismus, lymphadenopathy Respiratory exam: Present: normal lung sounds bilaterally. Absent: respiratory distress, wheezes, rales, rhonchi, stridor Cardiovascular Exam: Present: regular rate, normal rhythm, normal heart sounds. Absent: systolic murmur, diastolic murmur, rubs, gallop, clicks GI/Abdominal exam: Present: soft, tenderness (Right groin right testicular tenderness), guarding, normal bowel sounds. Absent: distended, rebound, rigid Extremities exam: Present: normal inspection, full ROM, normal capillary refill. Absent: tenderness, pedal edema, joint swelling, calf tenderness Back exam: Present: normal inspection Neurological exam: Present: alert, oriented X3, CN II-XII intact Psychiatric exam: Present: normal affect, normal mood Skin exam: Present: warm, dry, intact, normal color. Absent: rash Course Vital Signs 05/15/18 12:11 Temperature 98.2 F Pulse Rate 70 Respiratory 18 Rate Blood Pressure 134/81 O2 Sat by Pulse 98 Oximetry - Reevaluation(s) Reevaluation #1: 05/15/18 12:45 Medical record is reviewed Reevaluation #2: 05/15/18 14:24 Patient's pain is controlled Medical Decision Making - Medical Decision Making 47 male with nonspecific right lower quadrant abdominal pain thinks he may have a hernia, CT of abdomen pelvis, ultrasound of scrotum is negative. Patient can be discharged home - Lab Data Result diagrams: 05/15/18 12:00 05/15/18 12:00 Lab Results 05/15/18 05/15/18 Range/Units 12:00 12:00 WBC 8.3 (3.8-10.6) k/uL RBC 4.96 (4.30-5.90) m/uL Hgb 15.6 (13.0-17.5) gm/dL Hct 45.1 (39.0-53.0) % MCV 90.8 (80.0-100.0) fL MCH 31.3 (25.0-35.0) pg MCHC 34.5 (31.0-37.0) g/dL RDW 13.2 (11.5-15.5) % Plt Count 244 (150-450) k/uL Neutrophils % 70 % Lymphocytes % 19 % Monocytes % 7 % Eosinophils % 2 % Basophils % 1 % Neutrophils # 5.8 (1.3-7.7) k/uL Lymphocytes # 1.6 (1.0-4.8) k/uL Monocytes # 0.6 (0-1.0) k/uL Eosinophils # 0.2 (0-0.7) k/uL Basophils # 0.0 (0-0.2) k/uL Sodium 137 (137-145) mmol/L Potassium 4.3 (3.5-5.1) mmol/L Chloride 106 (98-107) mmol/L Carbon Dioxide 22 (22-30) mmol/L Anion Gap 9 mmol/L BUN 15 (9-20) mg/dL Creatinine 1.06 (0.66-1.25) mg/dL Est GFR (CKD-EPI)AfAm >90 (>60 ml/min/1.73 sqM) Est GFR (CKD-EPI)NonAf 85 (>60 ml/min/1.73 sqM) Glucose 100 H (74-99) mg/dL Calcium 9.6 (8.4-10.2) mg/dL Total Bilirubin 0.9 (0.2-1.3) mg/dL AST 25 (17-59) U/L ALT 21 (21-72) U/L Alkaline Phosphatase 58 (38-126) U/L Total Protein 8.2 (6.3-8.2) g/dL Albumin 4.9 (3.5-5.0) g/dL Amylase 78 (30-110) U/L Lipase 246 (23-300) U/L - Radiology Data Radiology results: report reviewed (CT abdomen pelvis ultrasound scrotum negative for acute disease), image reviewed Disposition Clinical Impression: Abdominal pain Disposition: HOME SELF-CARE Condition: Good Instructions: Abdominal Pain (ED) Is patient prescribed a controlled substance at d/c from ED?: No Referrals: Viktoria Richardson MD [Primary Care Provider] - 1-2 days
[2018-05-15 13:16] LABS: Basophils % (A) 1 %; Eosinophils # (A) 0.2 k/uL (0-0.7); Eosinophils % (A) 2 %; HCT 45.1 % (39.0-53.0); HGB 15.6 gm/dL (13.0-17.5); Lymphocytes # (A) 1.6 k/uL (1.0-4.8); Lymphocytes % (A) 19 %; MCH 31.3 pg (25.0-35.0); MCHC 34.5 g/dL (31.0-37.0); MCV 90.8 fL (80.0-100.0); Mean Platelet Volume 7.8; Monocytes # (A) 0.6 k/uL (0-1.0); Monocytes % (A) 7 %; Neutrophils # (A) 5.8 k/uL (1.3-7.7); Neutrophils % (A) 70 %; Platelet Count 244 k/uL (150-450); RBC 4.96 m/uL (4.30-5.90); RDW 13.2 % (11.5-15.5); WBC 8.3 k/uL (3.8-10.6)
[2018-05-15 13:27] LABS: ALT 21 U/L (21-72); AST 25 U/L (17-59); Albumin 4.9 g/dL (3.5-5.0); Alkaline Phosphatase 58 U/L (38-126); Amylase 78 U/L (30-110); Anion Gap 9 mmol/L; Blood Urea Nitrogen 15 mg/dL (9-20); Calcium 9.6 mg/dL (8.4-10.2); Carbon Dioxide 22 mmol/L (22-30); Chloride 106 mmol/L (98-107); Glucose 100 mg/dL (74-99); Lipase 246 U/L (23-300); Potassium 4.3 mmol/L (3.5-5.1); Sodium 137 mmol/L (137-145); Total Bilirubin 0.9 mg/dL (0.2-1.3); Total Protein 8.2 g/dL (6.3-8.2)
--- NOTE | 2018-05-15 13:29 | CT ---
EXAMINATION TYPE: CT abdomen pelvis w con DATE OF EXAM: 05/15/2018 COMPARISON: 08/25/2017 HISTORY: 47-year-old male Right flank, groin and lower quadrant pain TECHNIQUE: Contiguous axial scanning of the abdomen and pelvis following administration of 100 ml Iso jana 300 IV contrast. Delayed images through the kidneys and coronal/sagittal reconstructions perform ed. CT DLP: 1054.2 mGycm Automated exposure control for dose reduction was used. FINDINGS: Heart normal size without pericardial effusion. Mild dependent atelectasis without pleural effusion. Liver borderline in size at 17.4 cm. No focal liver lesion seen. No biliary ductal dilatation. Portal venous system is patent. Gallbladder, adrenal glands, right kidney, spleen, and pancreas appear within normal limits. Nonobstructive 5 mm left renal calculus is demonstrated. There is symmetric uptake of contrast from b oth kidneys. No hydronephrosis or suspicious calcification of lung either ureter. No dilated small bowel, free fluid, or free air. No mesenteric or retroperitoneal lymphadenopathy. Fluid-filled small bowel loops in the lower abdomen and pelvis with normal appendix and some liquid s tool seen in the right side of the colon. No significant stool burden is demonstrated. Mild diverticu lar change lower descending colon and proximal sigmoid colon. No pericolonic inflammatory change. Mild circumferential bladder wall thickening may be due to incomplete distention. No abnormal fluid c ollection in the pelvis or pelvic lymphadenopathy. Bones: No osseous destructive process. Transitiona l lumbosacral segment. IMPRESSION: 1. SOME PROMINENT FLUID-FILLED SMALL BOWEL LOOPS IN THE LOWER ABDOMEN AND PELVIS AND LIQUID STOOL IN THE RIGHT SIDE OF THE COLON. CORRELATE FOR POSSIBLE ENTERITIS. 2. A 5 MM NONOBSTRUCTIVE CALCULUS IN THE LEFT KIDNEY. NO URETERAL CALCULUS OR EVIDENCE FOR OBSTRUCTIV E UROPATHY. 3. MILD CIRCUMFERENTIAL BLADDER WALL THICKENING MAY BE DUE TO INCOMPLETE DISTENTION. CORRELATE TO EXC LUDE CYSTITIS. 4. NORMAL APPENDIX. 5. MILD DIVERTICULAR CHANGE IN THE LEFT SIDE OF THE COLON. NO EVIDENCE FOR ACUTE DIVERTICULITIS.
--- NOTE | 2018-05-15 14:20 | US ---
EXAMINATION TYPE: US scrotum with doppler. Grayscale and color Doppler Duplex imaging performed of suleman kidd scrotum. DATE OF EXAM: 05/15/2018 COMPARISON: US done 04/29/18 CLINICAL HISTORY: Pain. EXAM MEASUREMENTS: TESTICLES: Right Testicle: 0.6 cm Left Testicle: 0.6 cm EPIDIDYMIS HEAD: Right Epididymis: 4.8 x 2.6 x 3.1 cm Left Epididymis: 4.6 x 2.4 x 3.4 cm Doppler performed to assess for testicular vascularity; bilateral color flow and waveforms are seen. There is no evidence of testicular torsion. Presence of hydroceles: Right: 2.5 x 1.2 x 1.8cm Left: 2.3 x 0.5 x 2.0cm Presence of varicoceles: no Testicular echotexture is homogenous and symmetric. Right-sided hydrocele is again noted. IMPRESSION: Exam is stable compared to previous of 04/29/2018. Bilateral hydroceles. Testicular torsi on is not evident.
[2018-05-15 14:50] LABS: Appearance,Urine Clear (Clear); Bilirubin,Urine Negative (Negative); Blood,Urine Negative (Negative); Color,Urine Yellow; Glucose,Urine (UA) Negative (Negative); Ketones,Urine Negative (Negative); Leukocyte Esterase,Urine Negative (Negative); Nitrite,Urine Negative (Negative); PH, Urine 6.5 (5.0-8.0); Protein,Urine Negative (Negative); Urobilinogen,Urine <2.0 mg/dL (<2.0)
[2018-05-15 15:01] VITALS: BP 111/59; PULSE 71; TEMP 98
== END 2018-05-15 14:52 | disposition home or self-care (01) ==
LOC: EC 12:10
DX: R10.31 Right lower quadrant pain (principal); R11.0 Nausea; I10 Essential (primary) hypertension; I48.91 Unspecified atrial fibrillation; F17.200 Nicotine dependence, unspecified, uncomplicated; Z88.6 Allergy status to analgesic agent; Z88.8 Allergy status to other drugs, medicaments and biological substances; Z79.899 Other long term (current) drug therapy; Z86.14 Personal history of Methicillin resistant Staphylococcus aureus infection; Z95.818 Presence of other cardiac implants and grafts
CPT/HCPCS: 36415; 80053; 82150; 83690; 85025; 81003; 87086; 93975; 76870; 74177; 99284; 96374; 96361 ×2; J2270; Q9967

== ENCOUNTER 2018-05-22 16:13 | Inpatient (IN) | payer MEDICAID, OTHER ==
[2018-05-22 17:21] LABS: Amphetamine Screen,Urine Not Detected (NotDetected); Barbiturate Screen,Urine Not Detected (NotDetected); Benzodiazepines Screen,Urine Not Detected (NotDetected); Cocaine Screen,Urine Not Detected (NotDetected); Methadone Screen, Urine Not Detected (NotDetected); Opiate Screen,Urine Not Detected (NotDetected); Oxycodone Screen, Urine Not Detected (NotDetected); Phencyclidine Screen,Urine Not Detected (NotDetected); Tricyclic Antidepressant,Urine Not Detected (NotDetected); Urn Cannabinoid Scrn Detected (NotDetected)
--- NOTE | 2018-05-22 19:03 | ED ---
Psych HPI - General Chief Complaint: Psychiatric Symptoms Stated Complaint: EPS eval Time Seen by Provider: 05/22/18 16:20 Source: patient, RN notes reviewed, old records reviewed Mode of arrival: ambulatory - History of Present Illness Initial Comments: This is a 47-year-old male the ER for evaluation presents today for evaluation of suicidal thoughts suicidal ideation wanting to kill himself. Patient denies recent drug or alcohol abuse. Patient has known history of psychiatric illness and won't this emergency room for psychiatric evaluation and admission for psychiatric treatment. MD Complaint: suicidal ideation, feels depressed -: days(s) Associated Psychiatric Symptoms: depression, suicidal ideation History of same: Yes Quality: constant, getting worse Improves With: none Worsens With: none Context: not taking psychiatric medications Associated Symptoms: denies other symptoms Treatments Prior to Arrival: none If Self Harm: admits thoughts of self harm, has plan - Related Data Home Medications Medication Instructions Recorded Confirmed Hydrochlorothiazide 25 mg PO DAILY 05/15/18 05/22/18 Aspirin EC [Ecotrin Low Dose] 81 mg PO DAILY 05/22/18 05/22/18 Lurasidone [Latuda] 40 mg PO HS 05/22/18 05/22/18 Pramipexole [Mirapex] 1 mg PO HS 05/22/18 05/22/18 lamoTRIgine [LaMICtal] 200 mg PO HS 05/22/18 05/22/18 Previous Rx's Medication Instructions Recorded Gabapentin [Neurontin] 400 mg PO TID 30 Days #90 cap 04/11/18 Lisinopril [Zestril] 20 mg PO DAILY 30 Days #30 tab 04/11/18 Pantoprazole [Protonix] 40 mg PO AC-BID 30 Days #30 04/11/18 tablet. amLODIPine [Norvasc] 10 mg PO DAILY 30 Days #30 tab 04/11/18 cloNIDine HCL [Catapres] 0.2 mg PO TID 30 Days #90 tab 04/11/18 traZODone HCL [Desyrel] 200 mg PO HS 30 Days #30 tab 04/11/18 Allergies Allergy/AdvReac Type Severity Reaction Status Date / Time ibuprofen [From Motrin] AdvReac Nausea & Verified 05/22/18 16:56 Vomiting simvastatin [From Zocor] AdvReac Dizziness Verified 05/22/18 16:56 Review of Systems ROS Statement: Those systems with pertinent positive or pertinent negative responses have been documented in the HPI. ROS Other: All systems not noted in ROS Statement are negative. Past Medical History Past Medical History: Atrial Fibrillation, Hyperlipidemia, Hypertension Additional Past Medical History / Comment(s): Pt recently admitted on 03/13/18 with costrochondritis with abnormal stress echo/ normal cardiac cath. Other hx : Chronic pain, chronic low back pain with bilateral sciatica, neuropathy bilateral hands/feet, migraines, partial SBO, kidney stones. History of Any Multi-Drug Resistant Organisms: MRSA Date of last positivie culture/infection: 04/10/18 MDRO Source:: TOE Past Surgical History: Heart Catheterization, Orthopedic Surgery Additional Past Surgical History / Comment(s): 03/14/18 Cardiac cath-normal coronaries, L shoulder rotator cuff repair x2, cervical injection. Past Anesthesia/Blood Transfusion Reactions: No Reported Reaction Past Psychological History: Bipolar, Depression, Schizophrenia Smoking Status: Current every day smoker Past Alcohol Use History: None Reported Past Drug Use History: Marijuana - Past Family History Father Family Medical History: Myocardial Infarction ([place]) Additional Family Medical History / Comment(s): mi at age 35, still living Mother Family Medical History: Myocardial Infarction ([place]) Additional Family Medical History / Comment(s): Mother has had at least one [place]- pt unsure at what age. He has not had much contact with his mother since he was 17 yrs old. General Exam Limitations: no limitations General appearance: alert, in no apparent distress Head exam: Present: atraumatic, normocephalic, normal inspection Eye exam: Present: normal appearance, PERRL, EOMI. Absent: scleral icterus, conjunctival injection, periorbital swelling ENT exam: Present: normal exam, mucous membranes moist Neck exam: Present: normal inspection. Absent: tenderness, meningismus, lymphadenopathy Respiratory exam: Present: normal lung sounds bilaterally. Absent: respiratory distress, wheezes, rales, rhonchi, stridor Cardiovascular Exam: Present: regular rate, normal rhythm, normal heart sounds. Absent: systolic murmur, diastolic murmur, rubs, gallop, clicks GI/Abdominal exam: Present: soft, normal bowel sounds. Absent: distended, tenderness, guarding, rebound, rigid Extremities exam: Present: normal inspection, full ROM, normal capillary refill. Absent: tenderness, pedal edema, joint swelling, calf tenderness Back exam: Present: normal inspection Neurological exam: Present: alert, oriented X3, CN II-XII intact Psychiatric exam: Present: normal affect, normal mood Skin exam: Present: warm, dry, intact, normal color. Absent: rash Course Vital Signs 05/22/18 05/22/18 16:14 18:58 Temperature 98.3 F 98.7 F Pulse Rate 82 71 Respiratory 18 16 Rate Blood Pressure 146/93 142/79 O2 Sat by Pulse 98 100 Oximetry - Reevaluation(s) Reevaluation #1: 05/22/18 19:02 Medical record is reviewed significant history of psychiatric illness Reevaluation #2: 05/22/18 19:02 Patient is medically clear for psychiatric evaluation Medical Decision Making - Medical Decision Making 47 male the ER for evaluation, patient resents for psychiatric illness and suicidal thoughts. Patient is to be admitted for inpatient psychiatric evaluation and treatment - Lab Data Lab Results 05/22/18 Range/Units 16:32 Urine Opiates Screen Not Detected (NotDetected) Ur Oxycodone Screen Not Detected (NotDetected) Urine Methadone Screen Not Detected (NotDetected) Ur Propoxyphene Screen Not Detected (NotDetected) Ur Barbiturates Screen Not Detected (NotDetected) U Tricyclic Antidepress Not Detected (NotDetected) Ur Phencyclidine Scrn Not Detected (NotDetected) Ur Amphetamines Screen Not Detected (NotDetected) U Methamphetamines Scrn Detected H (NotDetected) U Benzodiazepines Scrn Not Detected (NotDetected) Urine Cocaine Screen Not Detected (NotDetected) U Marijuana (THC) Screen Detected H (NotDetected) Disposition Clinical Impression: Suicidal ideation Disposition: TRANSFER TO PSYCH HOSP/UNIT Condition: Fair Is patient prescribed a controlled substance at d/c from ED?: No
[2018-05-22] MEDS ORDERED: MAG HYDROX/AL HYDROX/SIMETH 30 ML CUP PO PRN (19:54)
[2018-05-22] MEDS ORDERED: ACETAMINOPHEN TAB 325 MG TAB PO PRN (19:54)
[2018-05-22] MEDS ORDERED: ZIPRASIDONE 20 MG VIAL IM PRN (19:54)
[2018-05-22] MEDS ORDERED: MAGNESIUM HYDROXIDE 2,400 MG/10 ML CUP PO PRN (19:54)
[2018-05-22] MEDS: traZODone HCL 100 MG TAB PO SCH (20:41)
[2018-05-22] MEDS: PRAMIPEXOLE 1 MG TAB PO SCH (20:47)
[2018-05-23 08:25] LABS: Basophils # (A) 0.1 k/uL (0-0.2); Basophils % (A) 1 %; Eosinophils # (A) 0.3 k/uL (0-0.7); Eosinophils % (A) 3 %; HCT 47.2 % (39.0-53.0); HGB 15.9 gm/dL (13.0-17.5); Lymphocytes % (A) 25 %; MCH 31.6 pg (25.0-35.0); MCHC 33.6 g/dL (31.0-37.0); MCV 93.9 fL (80.0-100.0); Mean Platelet Volume 7.9; Monocytes # (A) 0.6 k/uL (0-1.0); Monocytes % (A) 7 %; Neutrophils # (A) 4.7 k/uL (1.3-7.7); Neutrophils % (A) 61 %; Platelet Count 210 k/uL (150-450); RBC 5.02 m/uL (4.30-5.90); RDW 12.9 % (11.5-15.5); WBC 7.7 k/uL (3.8-10.6)
[2018-05-23 08:31] LABS: ALT 23 U/L (21-72); AST 28 U/L (17-59); Albumin 4.2 g/dL (3.5-5.0); Alkaline Phosphatase 49 U/L (38-126); Anion Gap 7 mmol/L; Bilirubin, Delta 0.2 mg/dL (0.0-0.2); Bilirubin,Unconjugated 0.4 mg/dL (0.0-1.1); Blood Urea Nitrogen 15 mg/dL (9-20); Calcium 9.4 mg/dL (8.4-10.2); Carbon Dioxide 28 mmol/L (22-30); Chloride 105 mmol/L (98-107); Glucose 93 mg/dL (74-99); Potassium 4.3 mmol/L (3.5-5.1); Sodium 140 mmol/L (137-145); Total Bilirubin 0.6 mg/dL (0.2-1.3); Total Protein 7.1 g/dL (6.3-8.2)
[2018-05-23] MEDS: PANTOPRAZOLE 40 MG TABLET PO SCH ×2 (08:38→16:39)
[2018-05-23] MEDS: NICOTINE 14MG/24HR PATCH TRANSDERM SCH (08:38)
[2018-05-23] MEDS: HYDROCHLOROTHIAZIDE 25 MG TAB PO SCH (08:38)
[2018-05-23] MEDS: amLODIPine 10 MG TAB PO SCH (08:38)
[2018-05-23] MEDS: LISINOPRIL 20 MG TAB PO SCH (08:38)
--- NOTE | 2018-05-23 11:40 | P.HPIM ---
History of Present Illness H&P Date: 05/23/18 The patient is a 47-year-old male with a past medical history of hypertension, depression, and polysubstance abuse who presented to the ED with suicidal ideation. The patient notes that he was kicked out of his current residence by his children and didn't have a place to stay and had been feeling depressed recently and thereby decided to come to the ED. The patient endorsed smoking methamphetamine, last use one week ago. He also smokes marijuana daily. He otherwise denied chest pain, short of breath, nausea, vomiting, fever, chills, cough, dizziness, headache, or dysuria. Review of Systems Pertinent positives and negatives as discussed in HPI, a complete review of systems was performed and all other systems are negative. Past Medical History Past Medical History: Atrial Fibrillation, Hyperlipidemia, Hypertension Additional Past Medical History / Comment(s): Pt recently admitted on 03/13/18 with costrochondritis with abnormal stress echo/ normal cardiac cath. Other hx : Chronic pain, chronic low back pain with bilateral sciatica, neuropathy bilateral hands/feet, migraines, partial SBO, kidney stones. History of Any Multi-Drug Resistant Organisms: MRSA Date of last positivie culture/infection: 04/10/18 MDRO Source:: TOE Past Surgical History: Heart Catheterization, Orthopedic Surgery Additional Past Surgical History / Comment(s): 03/14/18 Cardiac cath-normal coronaries, L shoulder rotator cuff repair x2, cervical injection. Past Anesthesia/Blood Transfusion Reactions: No Reported Reaction Past Psychological History: Bipolar, Depression, Schizophrenia Smoking Status: Current every day smoker Past Alcohol Use History: None Reported Past Drug Use History: Marijuana - Past Family History Father Family Medical History: Myocardial Infarction ([place]) Additional Family Medical History / Comment(s): mi at age 35, still living Mother Family Medical History: Myocardial Infarction ([place]) Additional Family Medical History / Comment(s): Mother has had at least one [place]- pt unsure at what age. He has not had much contact with his mother since he was 17 yrs old. Medications and Allergies Home Medications Medication Instructions Recorded Confirmed Type Gabapentin [Neurontin] 400 mg PO TID 30 Days #90 cap 04/11/18 05/23/18 Rx Lisinopril [Zestril] 20 mg PO DAILY 30 Days #30 tab 04/11/18 05/23/18 Rx Pantoprazole [Protonix] 40 mg PO AC-BID 30 Days #30 04/11/18 05/23/18 Rx tablet. amLODIPine [Norvasc] 10 mg PO DAILY 30 Days #30 tab 04/11/18 05/23/18 Rx cloNIDine HCL [Catapres] 0.2 mg PO TID 30 Days #90 tab 04/11/18 05/23/18 Rx traZODone HCL [Desyrel] 200 mg PO HS 30 Days #30 tab 04/11/18 05/23/18 Rx Hydrochlorothiazide 25 mg PO DAILY 05/15/18 05/23/18 History Aspirin EC [Ecotrin Low Dose] 81 mg PO DAILY 05/22/18 05/23/18 History Lurasidone [Latuda] 40 mg PO HS 05/22/18 05/23/18 History Pramipexole [Mirapex] 1 mg PO HS 05/22/18 05/23/18 History lamoTRIgine [LaMICtal] 200 mg PO HS 05/22/18 05/23/18 History Allergies Allergy/AdvReac Type Severity Reaction Status Date / Time ibuprofen [From Motrin] AdvReac Nausea & Verified 05/23/18 01:04 Vomiting simvastatin [From Zocor] AdvReac Dizziness Verified 05/23/18 01:04 Physical Exam Vitals: Vital Signs Temp Pulse Pulse Pulse Resp BP BP 05/23/18 08:37 72 20 155/91 05/23/18 06:17 97.9 F 69 18 05/22/18 18:58 98.7 F 71 16 142/79 05/22/18 16:14 98.3 F 82 18 146/93 BP Pulse Ox 05/23/18 08:37 05/23/18 06:17 137/71 05/22/18 18:58 100 05/22/18 16:14 98 Intake and Output 05/22/18 05/23/18 05/23/18 22:59 06:59 14:59 Other: Weight 106.594 kg General: [non toxic], [no distress], [appears at stated age], [normal weight] Derm: [no unusual rashes/lesions] [no unusual ecchymoses], [warm], [dry] Head: [atraumatic], [normocephalic], [symmetric] Eyes: [EOMI], [no lid lag], [anicteric sclera], [pupils equal round reactive to light] ENT: [Nose and ears atraumatic], [no thrush], [no pharyngeal erythema] Neck: [No thyromegaly], [no cervical lymphadenopathy], [trachea midline], [ supple] Mouth: [no lip lesion], [mucus membranes moist] Cardiovascular: [S1S2 reg], [no murmur], [positive posterior tibial pulse bilateral], [no edema], [capillary refill less than 2 seconds] Lungs: [CTA bilateral], [no rhonchi, no rales] , [no accessory muscle use] Abdominal: [soft], [ nontender to palpation], [no guarding], [no appreciable organomegaly], [normal bowel sounds] Ext: [no gross muscle atrophy], [muscle strength 5 out of 5 in all 4 extremities grossly], [no contractures], Neuro: [ CN II-XI grossly intact], [light touch intact all 4 extremities], [ finger to nose within normal limits], Psych: [Alert], [oriented], [depressed affect] Results CBC & Chem 7: 05/23/18 07:42 05/23/18 07:42 Labs: Abnormal Lab Results - Last 24 Hours (Table) 05/22/18 Range/Units 16:32 U Methamphetamines Scrn Detected H (NotDetected) U Marijuana (THC) Screen Detected H (NotDetected) Assessment and Plan Plan: Hypertension -Resume home medications Depression with suicidal ideation -As per psychiatry Polysubstance abuse -Advised on importance of cessation -Monitor for signs of withdrawal Thank you for allowing us to participate in the care of this patient. We will follow peripherally. Do not hesitate to contact us with questions. Someone can be reached from the [facility] hospitalist group at all hours of the day at [phone].
--- NOTE | 2018-05-23 12:00 | P.HP ---
Psychiatric H&P - . H&P Date: 05/23/18 History & Physical: Allergies Allergy/AdvReac Type Severity Reaction Status Date / Time ibuprofen [From Motrin] AdvReac Nausea & Verified 05/23/18 01:04 Vomiting simvastatin [From Zocor] AdvReac Dizziness Verified 05/23/18 01:04 Vital Signs Temp 97.9 F 05/23/18 06:17 Pulse 69 05/23/18 06:17 Resp 18 05/23/18 06:17 BP 137/71 05/23/18 06:17 Pulse Ox 100 05/22/18 18:58 Intake & Output 05/22/18 05/23/18 05/23/18 18:59 06:59 18:59 Weight 106.594 kg Laboratory Last Values WBC 7.7 k/uL (3.8-10.6) 05/23/18 07:42 RBC 5.02 m/uL (4.30-5.90) 05/23/18 07:42 Hgb 15.9 gm/dL (13.0-17.5) 05/23/18 07:42 Hct 47.2 % (39.0-53.0) 05/23/18 07:42 MCV 93.9 fL (80.0-100.0) 05/23/18 07:42 MCH 31.6 pg (25.0-35.0) 05/23/18 07:42 MCHC 33.6 g/dL (31.0-37.0) 05/23/18 07:42 RDW 12.9 % (11.5-15.5) 05/23/18 07:42 Plt Count 210 k/uL (150-450) 05/23/18 07:42 Neutrophils % 61 % 05/23/18 07:42 Lymphocytes % 25 % 05/23/18 07:42 Monocytes % 7 % 05/23/18 07:42 Eosinophils % 3 % 05/23/18 07:42 Basophils % 1 % 05/23/18 07:42 Neutrophils # 4.7 k/uL (1.3-7.7) 05/23/18 07:42 Lymphocytes # 2.0 k/uL (1.0-4.8) 05/23/18 07:42 Monocytes # 0.6 k/uL (0-1.0) 05/23/18 07:42 Eosinophils # 0.3 k/uL (0-0.7) 05/23/18 07:42 Basophils # 0.1 k/uL (0-0.2) 05/23/18 07:42 Sodium 140 mmol/L (137-145) 05/23/18 07:42 Potassium 4.3 mmol/L (3.5-5.1) 05/23/18 07:42 Chloride 105 mmol/L (98-107) 05/23/18 07:42 Carbon Dioxide 28 mmol/L (22-30) 05/23/18 07:42 Anion Gap 7 mmol/L 05/23/18 07:42 BUN 15 mg/dL (9-20) 05/23/18 07:42 Creatinine 0.81 mg/dL (0.66-1.25) 05/23/18 07:42 Est GFR (CKD-EPI)AfAm >90 (>60 ml/min/1.73 sqM) 05/23/18 07:42 Est GFR (CKD-EPI)NonAf >90 (>60 ml/min/1.73 sqM) 05/23/18 07:42 Glucose 93 mg/dL (74-99) 05/23/18 07:42 Calcium 9.4 mg/dL (8.4-10.2) 05/23/18 07:42 Total Bilirubin 0.6 mg/dL (0.2-1.3) 05/23/18 07:42 Conjugated Bilirubin 0.0 mg/dL (0.0-0.3) 05/23/18 07:42 Unconjugated Bilirubin 0.4 mg/dL (0.0-1.1) 05/23/18 07:42 Delta Bilirubin 0.2 mg/dL (0.0-0.2) 05/23/18 07:42 AST 28 U/L (17-59) 05/23/18 07:42 ALT 23 U/L (21-72) 05/23/18 07:42 Alkaline Phosphatase 49 U/L (38-126) 05/23/18 07:42 Total Protein 7.1 g/dL (6.3-8.2) 05/23/18 07:42 Albumin 4.2 g/dL (3.5-5.0) 05/23/18 07:42 TSH 0.655 mIU/L (0.465-4.680) 05/23/18 07:42 Urine Opiates Screen Not Detected (NotDetected) 05/22/18 16:32 Ur Oxycodone Screen Not Detected (NotDetected) 05/22/18 16:32 Urine Methadone Screen Not Detected (NotDetected) 05/22/18 16:32 Ur Propoxyphene Screen Not Detected (NotDetected) 05/22/18 16:32 Ur Barbiturates Screen Not Detected (NotDetected) 05/22/18 16:32 U Tricyclic Antidepress Not Detected (NotDetected) 05/22/18 16:32 Ur Phencyclidine Scrn Not Detected (NotDetected) 05/22/18 16:32 Ur Amphetamines Screen Not Detected (NotDetected) 05/22/18 16:32 U Methamphetamines Scrn Detected (NotDetected) H 05/22/18 16:32 U Benzodiazepines Scrn Not Detected (NotDetected) 05/22/18 16:32 Urine Cocaine Screen Not Detected (NotDetected) 05/22/18 16:32 U Marijuana (THC) Screen Detected (NotDetected) H 05/22/18 16:32 Assessment and Plan Assessment: This is a 47-year-old male the ER for evaluation presents today for evaluation of suicidal thoughts suicidal ideation wanting to kill himself. Patient denies recent drug or alcohol abuse. Patient has known history of psychiatric illness and won't this emergency room for psychiatric evaluation and admission for psychiatric treatment. MD Complaint: suicidal ideation, feels depressed -: days(s) Associated Psychiatric Symptoms: depression, suicidal ideation History of same: Yes Quality: constant, getting worse Improves With: none Worsens With: none Context: not taking psychiatric medications Associated Symptoms: denies other symptoms Treatments Prior to Arrival: none If Self Harm: admits thoughts of self harm, has plan - Related Data Home Medications Medication Instructions Recorded Confirmed Hydrochlorothiazide 25 mg PO DAILY 05/15/18 05/22/18 Aspirin EC [Ecotrin Low Dose] 81 mg PO DAILY 05/22/18 05/22/18 Lurasidone [Latuda] 40 mg PO HS 05/22/18 05/22/18 Pramipexole [Mirapex] 1 mg PO HS 05/22/18 05/22/18 lamoTRIgine [LaMICtal] 200 mg PO HS 05/22/18 05/22/18 Previous Rx's Medication Instructions Recorded Gabapentin [Neurontin] 400 mg PO TID 30 Days #90 cap 04/11/18 Lisinopril [Zestril] 20 mg PO DAILY 30 Days #30 tab 04/11/18 Pantoprazole [Protonix] 40 mg PO AC-BID 30 Days #30 04/11/18 tablet. amLODIPine [Norvasc] 10 mg PO DAILY 30 Days #30 tab 04/11/18 cloNIDine HCL [Catapres] 0.2 mg PO TID 30 Days #90 tab 04/11/18 traZODone HCL [Desyrel] 200 mg PO HS 30 Days #30 tab 04/11/18 Allergies Allergy/AdvReac Type Severity Reaction Status Date / Time ibuprofen [From Motrin] AdvReac Nausea & Verified 05/22/18 16:56 Vomiting simvastatin [From Zocor] AdvReac Dizziness Verified 05/22/18 16:56 Past Medical History Past Medical History: Atrial Fibrillation, Hyperlipidemia, Hypertension Additional Past Medical History / Comment(s): Pt recently admitted on 03/13/18 with costrochondritis with abnormal stress echo/ normal cardiac cath. Other hx : Chronic pain, chronic low back pain with bilateral sciatica, neuropathy bilateral hands/feet, migraines, partial SBO, kidney stones. History of Any Multi-Drug Resistant Organisms: MRSA Date of last positivie culture/infection: 04/10/18 MDRO Source:: TOE Past Surgical History: Heart Catheterization, Orthopedic Surgery Additional Past Surgical History / Comment(s): 03/14/18 Cardiac cath-normal coronaries, L shoulder rotator cuff repair x2, cervical injection. Past Anesthesia/Blood Transfusion Reactions: No Reported Reaction Past Psychological History: Bipolar, Depression, Schizophrenia Smoking Status: Current every day smoker Past Alcohol Use History: None Reported Past Drug Use History: Marijuana - Past Family History Father Family Medical History: Myocardial Infarction (AL) Additional Family Medical History / Comment(s): mi at age 35, still living Mother Family Medical History: Myocardial Infarction (AL) Additional Family Medical History / Comment(s): Mother has had at least one AL- pt unsure at what age. He has not had much contact with his mother since he was 17 yrs old. Lab Data Lab Results 05/22/18 Range/Units 16:32 Urine Opiates Screen Not Detected (NotDetected) Ur Oxycodone Screen Not Detected (NotDetected) Urine Methadone Screen Not Detected (NotDetected) Ur Propoxyphene Screen Not Detected (NotDetected) Ur Barbiturates Screen Not Detected (NotDetected) U Tricyclic Antidepress Not Detected (NotDetected) Ur Phencyclidine Scrn Not Detected (NotDetected) Ur Amphetamines Screen Not Detected (NotDetected) U Methamphetamines Scrn Detected H (NotDetected) U Benzodiazepines Scrn Not Detected (NotDetected) Urine Cocaine Screen Not Detected (NotDetected) U Marijuana (THC) Screen Detected H (NotDetected) Musculoskeletal Examination - Abnormal/Involuntary Movements: [none] Strength: [greater than antigravity (greater than/equal to 3/5) in all extremities, weakness:] Muscle Tone: [no impairment, Gait: [grossly normal Station: [grossly normal Mental Status Examination - General Appearance: [well groomed Speech/Language: [spontaneous, soft] Attitude/Behavior: [cooperative Mood: [depressed, anxious, elated, irritable, angry, fearful, hopelessness Affect: [full range, flat, labile, Orientation: [time, person, place situation] Thought Content: [wnl, Risk Factors: [suicidal (ideations, plan), and/or Homicidal (ideations, plan)] Perception: [wnl, denies hallucinations (auditory, visual, tactile)] Thought Processes: [goal-oriented Concentration/Attention Span: [wnl [Per observation and interview with the patient] Recent Memory: [wnl 3 out of 3 in 3 minutes] Remote Memory: [wnl] [past events, as related history] Intelligence: [below average] [based on history, based on vocabulary, syntax, grammar, and content] Judgement: [good] [per patient's behavior/history of present illness] Insight: [good] [understanding severity of illness/history of present illness] Admitting Diagnosis: [acute suicidal and major depression-recurrent and PTSD] Patient Strengths - Housing stability: [x] Able to vocalize needs: [x] Motivation, determination, readiness for change: [x] Setting and pursuing goals, hopes, dreams, aspirations: [x] Interpersonal relationships and supports available - family, relatives, friends : [x] Patient Limitations: [medication, non-compliance, pathological/unsupported environment Initial Plan of Care: [He was admitted formal voluntary to [address] [place] [address] for treatment of suicidal ideation and severe depression with anxiety and posttraumatic stress disorder. He was placed on 15 minute checks and usual protocol for unit. He was restarted on his medications which included as listed below gabapentin, and also pro-, Latuda, Protonix, Mirapex 0.125 mg twice a day and Mirapex 1 mg by mouth daily at bedtime Norvasc 10 mg Catapres 0.1 mg 3 times a day Mucinex 600 mg every 12 hours Lamictal 100 mg by mouth daily at bedtime and trazodone 200 mg by mouth daily at bedtime. He'll be evaluated by medicine, psychiatry, social work, nursing staff and occupational therapy will be expected to go to groups in the [facility] therapeutic environment. Disposition is artery being worked on.] Estimated Length of Stay: [3 days] Initial Discharge Plan: [home, [facility] Prognosis: [good, fair, guarded] Justification for Inpatient Hospitalization - agitation, anxiety, depression resulting in significant loss of functioning.] [Dangerous to self with need for controlled environment.] [Emotional or behavioral conditions and complications requiring 24 hour medical and nursing care.] [Need for special drug therapy, or other therapeutic program requiring continuous hospitalization.] [Failure of social or occupational functioning.] [Inability to meet basic life and health needs.] Clindamycin [Cleocin] 450 mg PO QID 10 Days #40 cap 04/11/18 [Rx] Gabapentin [Neurontin] 400 mg PO TID 30 Days #90 cap 04/11/18 [Rx] Lisinopril [Zestril] 20 mg PO DAILY 30 Days #30 tab 04/11/18 [Rx] Lurasidone [Latuda] 20 mg PO DAILY 30 Days #30 tab 04/11/18 [Rx] Pantoprazole [Protonix] 40 mg PO AC-BID 30 Days #30 04/11/18 [Rx] Pramipexole [Mirapex] 0.125 mg PO BID 30 Days #60 tab 04/11/18 [Rx] Pramipexole [Mirapex] 1 mg PO 2100 30 Days #30 tab 04/11/18 [Rx] amLODIPine [Norvasc] 10 mg PO DAILY 30 Days #30 tab 04/11/18 [Rx] cloNIDine HCL [Catapres] 0.2 mg PO TID 30 Days #90 tab 04/11/18 [Rx] guaiFENesin [Mucinex] 600 mg PO Q12HR 10 Days #20 tablet.er 04/11/18 [Rx] lamoTRIgine [LaMICtal] 200 mg PO 2100 30 Days #60 tab 04/11/18 [Rx] traZODone HCL [Desyrel] 200 mg PO HS 30 Days #30 tab 04/11/18 [Rx] (1) Suicidal ideation Current Visit: Yes Status: Acute Priority: High Code(s): R45.851 - SUICIDAL IDEATIONS SNOMED Code(s): 4156253 (2) Depression Current Visit: No Status: Chronic Priority: Medium Code(s): F32.9 - MAJOR DEPRESSIVE DISORDER, SINGLE EPISODE, UNSPECIFIED SNOMED Code(s): 13005823 Time with Patient: Less than 30
[2018-05-23] MEDS: LORazepam 1 MG TAB PO PRN (14:48)
[2018-05-23] MEDS: GABAPENTIN 400 MG CAP PO SCH ×2 (16:39→20:52)
[2018-05-23 17:37] LABS: Hemoglobin A1C 4.6 % (4.0-6.0)
[2018-05-23] MEDS: cloNIDine HCL 0.1 MG TAB PO SCH (20:51)
[2018-05-23] MEDS: lamoTRIgine 100 MG TAB PO SCH (20:51)
[2018-05-23] MEDS: traZODone HCL 100 MG TAB PO SCH (20:52)
[2018-05-23] MEDS: PRAMIPEXOLE 0.125 MG TAB PO SCH (20:52)
[2018-05-23] MEDS: PRAMIPEXOLE 1 MG TAB PO SCH (20:52)
[2018-05-24] MEDS: amLODIPine 10 MG TAB PO SCH (08:27)
[2018-05-24] MEDS: NICOTINE 14MG/24HR PATCH TRANSDERM SCH (08:27)
[2018-05-24] MEDS: LISINOPRIL 20 MG TAB PO SCH (08:27)
[2018-05-24] MEDS: PANTOPRAZOLE 40 MG TABLET PO SCH ×2 (08:27→17:14)
[2018-05-24] MEDS: cloNIDine HCL 0.1 MG TAB PO SCH ×2 (08:27→20:15)
[2018-05-24] MEDS: HYDROCHLOROTHIAZIDE 25 MG TAB PO SCH (08:27)
[2018-05-24] MEDS: LURASIDONE 20 MG TAB PO SCH (08:27)
[2018-05-24] MEDS: GABAPENTIN 400 MG CAP PO SCH ×3 (08:27→20:15)
[2018-05-24] MEDS: PRAMIPEXOLE 0.125 MG TAB PO SCH ×2 (08:32→20:15)
[2018-05-24] MEDS: LORazepam 1 MG TAB PO PRN (08:33)
--- NOTE | 2018-05-24 12:35 | P.PN ---
Subjective Progress Note Date: 05/24/18 Principal diagnosis: major depressive disorder recurrent I can't get ahold of anybody and I am depressed but not suicidal. Objective - Vital Signs Vital signs: Vital Signs Temp 97.7 F 05/24/18 06:10 Pulse 73 05/24/18 08:41 Resp 20 05/24/18 08:41 BP 141/81 05/24/18 08:41 Pulse Ox 100 05/22/18 18:58 - Labs CBC & Chem 7: 05/23/18 07:42 05/23/18 07:42 Assessment and Plan Assessment: This is a 47-year-old male the ER for evaluation presents today for evaluation of suicidal thoughts suicidal ideation wanting to kill himself. Patient denies recent drug or alcohol abuse. Patient has known history of psychiatric illness and won't this emergency room for psychiatric evaluation and admission for psychiatric treatment. MD Complaint: suicidal ideation, feels depressed -: days(s) Associated Psychiatric Symptoms: depression, suicidal ideation History of same: Yes Quality: constant, getting worse Improves With: none Worsens With: none Context: not taking psychiatric medications Associated Symptoms: denies other symptoms Treatments Prior to Arrival: none If Self Harm: admits thoughts of self harm, has plan - Related Data Home Medications Medication Instructions Recorded Confirmed Hydrochlorothiazide 25 mg PO DAILY 05/15/18 05/22/18 Aspirin EC [Ecotrin Low Dose] 81 mg PO DAILY 05/22/18 05/22/18 Lurasidone [Latuda] 40 mg PO HS 05/22/18 05/22/18 Pramipexole [Mirapex] 1 mg PO HS 05/22/18 05/22/18 lamoTRIgine [LaMICtal] 200 mg PO HS 05/22/18 05/22/18 Previous Rx's Medication Instructions Recorded Gabapentin [Neurontin] 400 mg PO TID 30 Days #90 cap 04/11/18 Lisinopril [Zestril] 20 mg PO DAILY 30 Days #30 tab 04/11/18 Pantoprazole [Protonix] 40 mg PO AC-BID 30 Days #30 04/11/18 tablet. amLODIPine [Norvasc] 10 mg PO DAILY 30 Days #30 tab 04/11/18 cloNIDine HCL [Catapres] 0.2 mg PO TID 30 Days #90 tab 04/11/18 traZODone HCL [Desyrel] 200 mg PO HS 30 Days #30 tab 04/11/18 Allergies Allergy/AdvReac Type Severity Reaction Status Date / Time ibuprofen [From Motrin] AdvReac Nausea & Verified 05/22/18 16:56 Vomiting simvastatin [From Zocor] AdvReac Dizziness Verified 05/22/18 16:56 Past Medical History Past Medical History: Atrial Fibrillation, Hyperlipidemia, Hypertension Additional Past Medical History / Comment(s): Pt recently admitted on 03/13/18 with costrochondritis with abnormal stress echo/ normal cardiac cath. Other hx : Chronic pain, chronic low back pain with bilateral sciatica, neuropathy bilateral hands/feet, migraines, partial SBO, kidney stones. History of Any Multi-Drug Resistant Organisms: MRSA Date of last positivie culture/infection: 04/10/18 MDRO Source:: TOE Past Surgical History: Heart Catheterization, Orthopedic Surgery Additional Past Surgical History / Comment(s): 03/14/18 Cardiac cath-normal coronaries, L shoulder rotator cuff repair x2, cervical injection. Past Anesthesia/Blood Transfusion Reactions: No Reported Reaction Past Psychological History: Bipolar, Depression, Schizophrenia Smoking Status: Current every day smoker Past Alcohol Use History: None Reported Past Drug Use History: Marijuana - Past Family History Father Family Medical History: Myocardial Infarction (MS) Additional Family Medical History / Comment(s): mi at age 35, still living Mother Family Medical History: Myocardial Infarction (MS) Additional Family Medical History / Comment(s): Mother has had at least one MS- pt unsure at what age. He has not had much contact with his mother since he was 17 yrs old. Lab Data Lab Results 05/22/18 Range/Units 16:32 Urine Opiates Screen Not Detected (NotDetected) Ur Oxycodone Screen Not Detected (NotDetected) Urine Methadone Screen Not Detected (NotDetected) Ur Propoxyphene Screen Not Detected (NotDetected) Ur Barbiturates Screen Not Detected (NotDetected) U Tricyclic Antidepress Not Detected (NotDetected) Ur Phencyclidine Scrn Not Detected (NotDetected) Ur Amphetamines Screen Not Detected (NotDetected) U Methamphetamines Scrn Detected H (NotDetected) U Benzodiazepines Scrn Not Detected (NotDetected) Urine Cocaine Screen Not Detected (NotDetected) U Marijuana (THC) Screen Detected H (NotDetected) Musculoskeletal Examination - Abnormal/Involuntary Movements: [none] Strength: [greater than antigravity (greater than/equal to 3/5) in all extremities, weakness:] Muscle Tone: [no impairment, Gait: [grossly normal Station: [grossly normal Mental Status Examination - General Appearance: [well groomed Speech/Language: [spontaneous, soft] Attitude/Behavior: [cooperative Mood: [depressed, anxious, elated, irritable, angry, fearful, hopelessness Affect: [full range, flat, labile, Orientation: [time, person, place situation] Thought Content: [wnl, Risk Factors: [suicidal (ideations, plan), and/or Homicidal (ideations, plan)] Perception: [wnl, denies hallucinations (auditory, visual, tactile)] Thought Processes: [goal-oriented Concentration/Attention Span: [wnl [Per observation and interview with the patient] Recent Memory: [wnl 3 out of 3 in 3 minutes] Remote Memory: [wnl] [past events, as related history] Intelligence: [below average] [based on history, based on vocabulary, syntax, grammar, and content] Judgement: [good] [per patient's behavior/history of present illness] Insight: [good] [understanding severity of illness/history of present illness] Admitting Diagnosis: [acute suicidal and major depression-recurrent and PTSD] Patient Strengths - Housing stability: [x] Able to vocalize needs: [x] Motivation, determination, readiness for change: [x] Setting and pursuing goals, hopes, dreams, aspirations: [x] Interpersonal relationships and supports available - family, relatives, friends : [x] Patient Limitations: [medication, non-compliance, pathological/unsupported environment Initial Plan of Care: [He was admitted formal voluntary to [address] [place] [address] for treatment of suicidal ideation and severe depression with anxiety and posttraumatic stress disorder. He was placed on 15 minute checks and usual protocol for unit. He was restarted on his medications which included as listed below gabapentin, and also pro-, Latuda, Protonix, Mirapex 0.125 mg twice a day and Mirapex 1 mg by mouth daily at bedtime Norvasc 10 mg Catapres 0.1 mg 3 times a day Mucinex 600 mg every 12 hours Lamictal 100 mg by mouth daily at bedtime and trazodone 200 mg by mouth daily at bedtime. He'll be evaluated by medicine, psychiatry, social work, nursing staff and occupational therapy will be expected to go to groups in the [facility] therapeutic environment. Disposition is artery being worked on.] Estimated Length of Stay: [3 days] Initial Discharge Plan: [home, [email or web address] Prognosis: [good, fair, guarded] Justification for Inpatient Hospitalization - agitation, anxiety, depression resulting in significant loss of functioning.] [Dangerous to self with need for controlled environment.] [Emotional or behavioral conditions and complications requiring 24 hour medical and nursing care.] [Need for special drug therapy, or other therapeutic program requiring continuous hospitalization.] [Failure of social or occupational functioning.] [Inability to meet basic life and health needs.] Clindamycin [Cleocin] 450 mg PO QID 10 Days #40 cap 04/11/18 [Rx] Gabapentin [Neurontin] 400 mg PO TID 30 Days #90 cap 04/11/18 [Rx] Lisinopril [Zestril] 20 mg PO DAILY 30 Days #30 tab 04/11/18 [Rx] Lurasidone [Latuda] 20 mg PO DAILY 30 Days #30 tab 04/11/18 [Rx] Pantoprazole [Protonix] 40 mg PO AC-BID 30 Days #30 tablet.dr 04/11/18 [Rx] Pramipexole [Mirapex] 0.125 mg PO BID 30 Days #60 tab 04/11/18 [Rx] Pramipexole [Mirapex] 1 mg PO 2100 30 Days #30 tab 04/11/18 [Rx] amLODIPine [Norvasc] 10 mg PO DAILY 30 Days #30 tab 04/11/18 [Rx] cloNIDine HCL [Catapres] 0.2 mg PO TID 30 Days #90 tab 04/11/18 [Rx] guaiFENesin [Mucinex] 600 mg PO Q12HR 10 Days #20 tablet.er 04/11/18 [Rx] lamoTRIgine [LaMICtal] 200 mg PO 2100 30 Days #60 tab 04/11/18 [Rx] traZODone HCL [Desyrel] 200 mg PO HS 30 Days #30 tab 04/11/18 [Rx] (1) Suicidal ideation Current Visit: Yes Status: Acute Priority: High Code(s): R45.851 - SUICIDAL IDEATIONS SNOMED Code(s): 1643822 (2) Depression Current Visit: No Status: Chronic Priority: Medium Code(s): F32.9 - MAJOR DEPRESSIVE DISORDER, SINGLE EPISODE, UNSPECIFIED SNOMED Code(s): 44959408 Time with Patient: Less than 30
[2018-05-24] MEDS: PRAMIPEXOLE 1 MG TAB PO SCH (20:15)
[2018-05-24] MEDS: lamoTRIgine 100 MG TAB PO SCH (20:15)
[2018-05-24] MEDS: traZODone HCL 100 MG TAB PO SCH (22:52)
[2018-05-25] MEDS: cloNIDine HCL 0.1 MG TAB PO SCH ×2 (08:43→21:26)
[2018-05-25] MEDS: HYDROCHLOROTHIAZIDE 25 MG TAB PO SCH (08:43)
[2018-05-25] MEDS: LURASIDONE 20 MG TAB PO SCH (08:43)
[2018-05-25] MEDS: amLODIPine 10 MG TAB PO SCH (08:43)
[2018-05-25] MEDS: PANTOPRAZOLE 40 MG TABLET PO SCH ×2 (08:43→16:24)
[2018-05-25] MEDS: NICOTINE 14MG/24HR PATCH TRANSDERM SCH (08:44)
[2018-05-25] MEDS: GABAPENTIN 400 MG CAP PO SCH ×3 (08:44→21:26)
[2018-05-25] MEDS: PRAMIPEXOLE 0.125 MG TAB PO SCH ×2 (08:44→21:26)
[2018-05-25] MEDS: LISINOPRIL 20 MG TAB PO SCH (08:44)
[2018-05-25] MEDS: LORazepam 1 MG TAB PO PRN (09:31)
--- NOTE | 2018-05-25 11:00 | P.PN ---
Subjective Progress Note Date: 05/25/18 Principal diagnosis: major depressive disorder recurrent I can't get ahold of anybody and I am depressed but not suicidal. He has been going to groups and less depressed and sleeping well. Concerned about STD and wants HIV testing. Objective - Vital Signs Vital signs: Vital Signs Temp 97.6 F 05/25/18 06:37 Pulse 69 05/25/18 06:37 Resp 16 05/25/18 06:37 BP 129/60 05/25/18 06:37 Pulse Ox 100 05/22/18 18:58 Intake & Output 05/24/18 05/25/18 05/25/18 18:59 06:59 18:59 Weight 104.825 kg - Labs CBC & Chem 7: 05/23/18 07:42 05/23/18 07:42 Assessment and Plan Assessment: This is a 47-year-old male the ER for evaluation presents today for evaluation of suicidal thoughts suicidal ideation wanting to kill himself. Patient denies recent drug or alcohol abuse. Patient has known history of psychiatric illness and won't this emergency room for psychiatric evaluation and admission for psychiatric treatment. MD Complaint: suicidal ideation, feels depressed -: days(s) Associated Psychiatric Symptoms: depression, suicidal ideation History of same: Yes Quality: constant, getting worse Improves With: none Worsens With: none Context: not taking psychiatric medications Associated Symptoms: denies other symptoms Treatments Prior to Arrival: none If Self Harm: admits thoughts of self harm, has plan - Related Data Home Medications Medication Instructions Recorded Confirmed Hydrochlorothiazide 25 mg PO DAILY 05/15/18 05/22/18 Aspirin EC [Ecotrin Low Dose] 81 mg PO DAILY 05/22/18 05/22/18 Lurasidone [Latuda] 40 mg PO HS 05/22/18 05/22/18 Pramipexole [Mirapex] 1 mg PO HS 05/22/18 05/22/18 lamoTRIgine [LaMICtal] 200 mg PO HS 05/22/18 05/22/18 Previous Rx's Medication Instructions Recorded Gabapentin [Neurontin] 400 mg PO TID 30 Days #90 cap 04/11/18 Lisinopril [Zestril] 20 mg PO DAILY 30 Days #30 tab 04/11/18 Pantoprazole [Protonix] 40 mg PO AC-BID 30 Days #30 04/11/18 tablet. amLODIPine [Norvasc] 10 mg PO DAILY 30 Days #30 tab 04/11/18 cloNIDine HCL [Catapres] 0.2 mg PO TID 30 Days #90 tab 04/11/18 traZODone HCL [Desyrel] 200 mg PO HS 30 Days #30 tab 04/11/18 Allergies Allergy/AdvReac Type Severity Reaction Status Date / Time ibuprofen [From Motrin] AdvReac Nausea & Verified 05/22/18 16:56 Vomiting simvastatin [From Zocor] AdvReac Dizziness Verified 05/22/18 16:56 Past Medical History Past Medical History: Atrial Fibrillation, Hyperlipidemia, Hypertension Additional Past Medical History / Comment(s): Pt recently admitted on 03/13/18 with costrochondritis with abnormal stress echo/ normal cardiac cath. Other hx : Chronic pain, chronic low back pain with bilateral sciatica, neuropathy bilateral hands/feet, migraines, partial SBO, kidney stones. History of Any Multi-Drug Resistant Organisms: MRSA Date of last positivie culture/infection: 04/10/18 MDRO Source:: TOE Past Surgical History: Heart Catheterization, Orthopedic Surgery Additional Past Surgical History / Comment(s): 03/14/18 Cardiac cath-normal coronaries, L shoulder rotator cuff repair x2, cervical injection. Past Anesthesia/Blood Transfusion Reactions: No Reported Reaction Past Psychological History: Bipolar, Depression, Schizophrenia Smoking Status: Current every day smoker Past Alcohol Use History: None Reported Past Drug Use History: Marijuana - Past Family History Father Family Medical History: Myocardial Infarction ([place]) Additional Family Medical History / Comment(s): mi at age 35, still living Mother Family Medical History: Myocardial Infarction ([place]) Additional Family Medical History / Comment(s): Mother has had at least one [place]- pt unsure at what age. He has not had much contact with his mother since he was 17 yrs old. Lab Data Lab Results 05/22/18 Range/Units 16:32 Urine Opiates Screen Not Detected (NotDetected) Ur Oxycodone Screen Not Detected (NotDetected) Urine Methadone Screen Not Detected (NotDetected) Ur Propoxyphene Screen Not Detected (NotDetected) Ur Barbiturates Screen Not Detected (NotDetected) U Tricyclic Antidepress Not Detected (NotDetected) Ur Phencyclidine Scrn Not Detected (NotDetected) Ur Amphetamines Screen Not Detected (NotDetected) U Methamphetamines Scrn Detected H (NotDetected) U Benzodiazepines Scrn Not Detected (NotDetected) Urine Cocaine Screen Not Detected (NotDetected) U Marijuana (THC) Screen Detected H (NotDetected) Musculoskeletal Examination - Abnormal/Involuntary Movements: [none] Strength: [greater than antigravity (greater than/equal to 3/5) in all extremities, weakness:] Muscle Tone: [no impairment, Gait: [grossly normal Station: [grossly normal Mental Status Examination - General Appearance: [well groomed Speech/Language: [spontaneous, soft] Attitude/Behavior: [cooperative Mood: [depressed, anxious, elated, irritable, angry, fearful, hopelessness Affect: [full range, flat, labile, Orientation: [time, person, place situation] Thought Content: [wnl, Risk Factors: [suicidal (ideations, plan), and/or Homicidal (ideations, plan)] Perception: [wnl, denies hallucinations (auditory, visual, tactile)] Thought Processes: [goal-oriented Concentration/Attention Span: [wnl [Per observation and interview with the patient] Recent Memory: [wnl 3 out of 3 in 3 minutes] Remote Memory: [wnl] [past events, as related history] Intelligence: [below average] [based on history, based on vocabulary, syntax, grammar, and content] Judgement: [good] [per patient's behavior/history of present illness] Insight: [good] [understanding severity of illness/history of present illness] Admitting Diagnosis: [acute suicidal and major depression-recurrent and PTSD] Patient Strengths - Housing stability: [x] Able to vocalize needs: [x] Motivation, determination, readiness for change: [x] Setting and pursuing goals, hopes, dreams, aspirations: [x] Interpersonal relationships and supports available - family, relatives, friends : [x] Patient Limitations: [medication, non-compliance, pathological/unsupported environment Initial Plan of Care: [He was admitted formal voluntary to [address] [place] [address] for treatment of suicidal ideation and severe depression with anxiety and posttraumatic stress disorder. He was placed on 15 minute checks and usual protocol for unit. He was restarted on his medications which included as listed below gabapentin, and also pro-, Latuda, Protonix, Mirapex 0.125 mg twice a day and Mirapex 1 mg by mouth daily at bedtime Norvasc 10 mg Catapres 0.1 mg 3 times a day Mucinex 600 mg every 12 hours Lamictal 100 mg by mouth daily at bedtime and trazodone 200 mg by mouth daily at bedtime. He'll be evaluated by medicine, psychiatry, social work, nursing staff and occupational therapy will be expected to go to groups in the [facility] therapeutic environment. Disposition is artery being worked on.] Estimated Length of Stay: [3 days] Initial Discharge Plan: [home, [facility] Prognosis: [good, fair, guarded] Justification for Inpatient Hospitalization - agitation, anxiety, depression resulting in significant loss of functioning.] [Dangerous to self with need for controlled environment.] [Emotional or behavioral conditions and complications requiring 24 hour medical and nursing care.] [Need for special drug therapy, or other therapeutic program requiring continuous hospitalization.] [Failure of social or occupational functioning.] [Inability to meet basic life and health needs.] Clindamycin [Cleocin] 450 mg PO QID 10 Days #40 cap 04/11/18 [Rx] Gabapentin [Neurontin] 400 mg PO TID 30 Days #90 cap 04/11/18 [Rx] Lisinopril [Zestril] 20 mg PO DAILY 30 Days #30 tab 04/11/18 [Rx] Lurasidone [Latuda] 20 mg PO DAILY 30 Days #30 tab 04/11/18 [Rx] Pantoprazole [Protonix] 40 mg PO AC-BID 30 Days #30 tablet. 04/11/18 [Rx] Pramipexole [Mirapex] 0.125 mg PO BID 30 Days #60 tab 04/11/18 [Rx] Pramipexole [Mirapex] 1 mg PO 2100 30 Days #30 tab 04/11/18 [Rx] amLODIPine [Norvasc] 10 mg PO DAILY 30 Days #30 tab 04/11/18 [Rx] cloNIDine HCL [Catapres] 0.2 mg PO TID 30 Days #90 tab 04/11/18 [Rx] guaiFENesin [Mucinex] 600 mg PO Q12HR 10 Days #20 tablet.er 04/11/18 [Rx] lamoTRIgine [LaMICtal] 200 mg PO 2100 30 Days #60 tab 04/11/18 [Rx] traZODone HCL [Desyrel] 200 mg PO HS 30 Days #30 tab 04/11/18 [Rx] (1) Suicidal ideation Current Visit: Yes Status: Acute Priority: High Code(s): R45.851 - SUICIDAL IDEATIONS SNOMED Code(s): 1420961 (2) Depression Current Visit: No Status: Chronic Priority: Medium Code(s): F32.9 - MAJOR DEPRESSIVE DISORDER, SINGLE EPISODE, UNSPECIFIED SNOMED Code(s): 15786966 Time with Patient: Less than 30
[2018-05-25] MEDS: PRAMIPEXOLE 1 MG TAB PO SCH (21:26)
[2018-05-25] MEDS: lamoTRIgine 100 MG TAB PO SCH (21:26)
[2018-05-25] MEDS: traZODone HCL 100 MG TAB PO SCH (21:26)
[2018-05-26] MEDS: NICOTINE 14MG/24HR PATCH TRANSDERM SCH (07:48)
[2018-05-26] MEDS: amLODIPine 10 MG TAB PO SCH (07:49)
[2018-05-26] MEDS: PRAMIPEXOLE 0.125 MG TAB PO SCH ×2 (07:49→21:03)
[2018-05-26] MEDS: cloNIDine HCL 0.1 MG TAB PO SCH ×2 (07:49→21:03)
[2018-05-26] MEDS: LURASIDONE 20 MG TAB PO SCH (07:49)
[2018-05-26] MEDS: HYDROCHLOROTHIAZIDE 25 MG TAB PO SCH (07:49)
[2018-05-26] MEDS: PANTOPRAZOLE 40 MG TABLET PO SCH ×2 (07:49→17:40)
[2018-05-26] MEDS: GABAPENTIN 400 MG CAP PO SCH ×3 (07:49→21:03)
[2018-05-26] MEDS: LISINOPRIL 20 MG TAB PO SCH (07:50)
[2018-05-26] MEDS: LORazepam 1 MG TAB PO PRN (08:37)
[2018-05-26 11:33] LABS: HIV 1 AB Non-Reactive (Non-Reactive); HIV AB P24 Non-Reactive (Non-Reactive); HIV P24 AG Non-Reactive (Non-Reactive)
--- NOTE | 2018-05-26 12:39 | P.PN ---
Subjective Progress Note Date: 05/26/18 Principal diagnosis: major depressive disorder recurrent I can't get ahold of anybody and I am depressed but not suicidal. He has been going to groups and less depressed and sleeping well. Concerned about STD and wants HIV testing. 05/26/2018: Suicidal today and related to bad breakfast and daughter Objective - Vital Signs Vital signs: Vital Signs Temp 98.2 F 05/26/18 06:22 Pulse 73 05/26/18 07:52 Resp 18 05/26/18 07:52 BP 121/75 05/26/18 07:52 Pulse Ox 100 05/22/18 18:58 - Labs CBC & Chem 7: 05/23/18 07:42 05/23/18 07:42 Assessment and Plan Assessment: This is a 47-year-old male the ER for evaluation presents today for evaluation of suicidal thoughts suicidal ideation wanting to kill himself. Patient denies recent drug or alcohol abuse. Patient has known history of psychiatric illness and won't this emergency room for psychiatric evaluation and admission for psychiatric treatment. MD Complaint: suicidal ideation, feels depressed -: days(s) Associated Psychiatric Symptoms: depression, suicidal ideation History of same: Yes Quality: constant, getting worse Improves With: none Worsens With: none Context: not taking psychiatric medications Associated Symptoms: denies other symptoms Treatments Prior to Arrival: none If Self Harm: admits thoughts of self harm, has plan - Related Data Home Medications Medication Instructions Recorded Confirmed Hydrochlorothiazide 25 mg PO DAILY 05/15/18 05/22/18 Aspirin EC [Ecotrin Low Dose] 81 mg PO DAILY 05/22/18 05/22/18 Lurasidone [Latuda] 40 mg PO HS 05/22/18 05/22/18 Pramipexole [Mirapex] 1 mg PO HS 05/22/18 05/22/18 lamoTRIgine [LaMICtal] 200 mg PO HS 05/22/18 05/22/18 Previous Rx's Medication Instructions Recorded Gabapentin [Neurontin] 400 mg PO TID 30 Days #90 cap 04/11/18 Lisinopril [Zestril] 20 mg PO DAILY 30 Days #30 tab 04/11/18 Pantoprazole [Protonix] 40 mg PO AC-BID 30 Days #30 04/11/18 tablet. amLODIPine [Norvasc] 10 mg PO DAILY 30 Days #30 tab 04/11/18 cloNIDine HCL [Catapres] 0.2 mg PO TID 30 Days #90 tab 04/11/18 traZODone HCL [Desyrel] 200 mg PO HS 30 Days #30 tab 04/11/18 Allergies Allergy/AdvReac Type Severity Reaction Status Date / Time ibuprofen [From Motrin] AdvReac Nausea & Verified 05/22/18 16:56 Vomiting simvastatin [From Zocor] AdvReac Dizziness Verified 05/22/18 16:56 Past Medical History Past Medical History: Atrial Fibrillation, Hyperlipidemia, Hypertension Additional Past Medical History / Comment(s): Pt recently admitted on 03/13/18 with costrochondritis with abnormal stress echo/ normal cardiac cath. Other hx : Chronic pain, chronic low back pain with bilateral sciatica, neuropathy bilateral hands/feet, migraines, partial SBO, kidney stones. History of Any Multi-Drug Resistant Organisms: MRSA Date of last positivie culture/infection: 04/10/18 MDRO Source:: TOE Past Surgical History: Heart Catheterization, Orthopedic Surgery Additional Past Surgical History / Comment(s): 03/14/18 Cardiac cath-normal coronaries, L shoulder rotator cuff repair x2, cervical injection. Past Anesthesia/Blood Transfusion Reactions: No Reported Reaction Past Psychological History: Bipolar, Depression, Schizophrenia Smoking Status: Current every day smoker Past Alcohol Use History: None Reported Past Drug Use History: Marijuana - Past Family History Father Family Medical History: Myocardial Infarction ([place]) Additional Family Medical History / Comment(s): mi at age 35, still living Mother Family Medical History: Myocardial Infarction ([place]) Additional Family Medical History / Comment(s): Mother has had at least one [place]- pt unsure at what age. He has not had much contact with his mother since he was 17 yrs old. Lab Data Lab Results 05/22/18 Range/Units 16:32 Urine Opiates Screen Not Detected (NotDetected) Ur Oxycodone Screen Not Detected (NotDetected) Urine Methadone Screen Not Detected (NotDetected) Ur Propoxyphene Screen Not Detected (NotDetected) Ur Barbiturates Screen Not Detected (NotDetected) U Tricyclic Antidepress Not Detected (NotDetected) Ur Phencyclidine Scrn Not Detected (NotDetected) Ur Amphetamines Screen Not Detected (NotDetected) U Methamphetamines Scrn Detected H (NotDetected) U Benzodiazepines Scrn Not Detected (NotDetected) Urine Cocaine Screen Not Detected (NotDetected) U Marijuana (THC) Screen Detected H (NotDetected) Musculoskeletal Examination - Abnormal/Involuntary Movements: [none] Strength: [greater than antigravity (greater than/equal to 3/5) in all extremities, weakness:] Muscle Tone: [no impairment, Gait: [grossly normal Station: [grossly normal Mental Status Examination - General Appearance: [well groomed Speech/Language: [spontaneous, soft] Attitude/Behavior: [cooperative Mood: [depressed, anxious, elated, irritable, angry, fearful, hopelessness Affect: [full range, flat, labile, Orientation: [time, person, place situation] Thought Content: [wnl, Risk Factors: [suicidal (ideations, plan), and/or Homicidal (ideations, plan)] Perception: [wnl, denies hallucinations (auditory, visual, tactile)] Thought Processes: [goal-oriented Concentration/Attention Span: [wnl [Per observation and interview with the patient] Recent Memory: [wnl 3 out of 3 in 3 minutes] Remote Memory: [wnl] [past events, as related history] Intelligence: [below average] [based on history, based on vocabulary, syntax, grammar, and content] Judgement: [good] [per patient's behavior/history of present illness] Insight: [good] [understanding severity of illness/history of present illness] Admitting Diagnosis: [acute suicidal and major depression-recurrent and PTSD] Patient Strengths - Housing stability: [x] Able to vocalize needs: [x] Motivation, determination, readiness for change: [x] Setting and pursuing goals, hopes, dreams, aspirations: [x] Interpersonal relationships and supports available - family, relatives, friends : [x] Patient Limitations: [medication, non-compliance, pathological/unsupported environment Initial Plan of Care: [He was admitted formal voluntary to [address] [place] [address] unit for treatment of suicidal ideation and severe depression with anxiety and posttraumatic stress disorder. He was placed on 15 minute checks and usual protocol for unit. He was restarted on his medications which included as listed below gabapentin, and also pro-, Latuda 40 mg po qhs, Protonix, Mirapex 0.125 mg twice a day and Mirapex 1 mg by mouth daily at bedtime Norvasc 10 mg Catapres 0.1 mg 3 times a day Mucinex 600 mg every 12 hours Lamictal 200 mg by mouth daily at bedtime and trazodone 200 mg by mouth daily at bedtime. He'll be evaluated by medicine, psychiatry, social work, nursing staff and occupational therapy will be expected to go to groups in the [facility] therapeutic environment. Disposition is artery being worked on.] Estimated Length of Stay: [3 days] Initial Discharge Plan: [home, [facility] Prognosis: [good, fair, guarded] Justification for Inpatient Hospitalization - agitation, anxiety, depression resulting in significant loss of functioning.] [Dangerous to self with need for controlled environment.] [Emotional or behavioral conditions and complications requiring 24 hour medical and nursing care.] [Need for special drug therapy, or other therapeutic program requiring continuous hospitalization.] [Failure of social or occupational functioning.] [Inability to meet basic life and health needs.] Clindamycin [Cleocin] 450 mg PO QID 10 Days #40 cap 04/11/18 [Rx] Gabapentin [Neurontin] 400 mg PO TID 30 Days #90 cap 04/11/18 [Rx] Lisinopril [Zestril] 20 mg PO DAILY 30 Days #30 tab 04/11/18 [Rx] Lurasidone [Latuda] 20 mg PO DAILY 30 Days #30 tab 04/11/18 [Rx] Pantoprazole [Protonix] 40 mg PO AC-BID 30 Days #30 tablet. 04/11/18 [Rx] Pramipexole [Mirapex] 0.125 mg PO BID 30 Days #60 tab 04/11/18 [Rx] Pramipexole [Mirapex] 1 mg PO 2100 30 Days #30 tab 04/11/18 [Rx] amLODIPine [Norvasc] 10 mg PO DAILY 30 Days #30 tab 04/11/18 [Rx] cloNIDine HCL [Catapres] 0.2 mg PO TID 30 Days #90 tab 04/11/18 [Rx] guaiFENesin [Mucinex] 600 mg PO Q12HR 10 Days #20 tablet.er 04/11/18 [Rx] lamoTRIgine [LaMICtal] 200 mg PO 2100 30 Days #60 tab 04/11/18 [Rx] traZODone HCL [Desyrel] 200 mg PO HS 30 Days #30 tab 04/11/18 [Rx] (1) Suicidal ideation Current Visit: Yes Status: Acute Priority: High Code(s): R45.851 - SUICIDAL IDEATIONS SNOMED Code(s): 5535181 (2) Depression Current Visit: No Status: Chronic Priority: Medium Code(s): F32.9 - MAJOR DEPRESSIVE DISORDER, SINGLE EPISODE, UNSPECIFIED SNOMED Code(s): 10326984 Time with Patient: Less than 30
[2018-05-26 19:03] VITALS: RESP 16
[2018-05-26] MEDS ORDERED: lamoTRIgine 100 MG TAB PO SCH (21:00)
[2018-05-26] MEDS: PRAMIPEXOLE 1 MG TAB PO SCH (21:03)
[2018-05-26] MEDS: traZODone HCL 100 MG TAB PO SCH (23:03)
[2018-05-27 04:40] VITALS: BP 134/82; PULSE 75; TEMP 97.4
[2018-05-27] MEDS: LORazepam 1 MG TAB PO PRN (06:08)
[2018-05-27] MEDS: NICOTINE 14MG/24HR PATCH TRANSDERM SCH (08:42)
[2018-05-27] MEDS: amLODIPine 10 MG TAB PO SCH (08:43)
[2018-05-27] MEDS: HYDROCHLOROTHIAZIDE 25 MG TAB PO SCH (08:43)
[2018-05-27] MEDS: cloNIDine HCL 0.1 MG TAB PO SCH (08:43)
[2018-05-27] MEDS: PANTOPRAZOLE 40 MG TABLET PO SCH (08:43)
[2018-05-27] MEDS: LISINOPRIL 20 MG TAB PO SCH (08:43)
[2018-05-27] MEDS: PRAMIPEXOLE 0.125 MG TAB PO SCH (08:43)
[2018-05-27] MEDS: GABAPENTIN 400 MG CAP PO SCH (08:43)
[2018-05-27] MEDS ORDERED: LURASIDONE 40 MG TAB PO SCH (09:00)
--- NOTE | 2018-05-27 12:05 | P.DS ---
Providers Date of admission: 05/22/18 18:35 Expected date of discharge: 05/27/18 Attending physician: Efrain Meyer DO Consults: 05/22/18 19:54 Consult Physician Routine Consulting Provider: Alfredo Paz Consult Reason/Comments: H and P, eval and treat metabolic disorder Do you want consulting provider notified?: Already Contacted Primary care physician: Viktoria Richardson MD - Discharge Diagnosis(es) (1) Suicidal ideation This is a 47-year-old male the ER for evaluation presents today for evaluation of suicidal thoughts suicidal ideation wanting to kill himself. Patient denies recent drug or alcohol abuse. Patient has known history of psychiatric illness and won't this emergency room for psychiatric evaluation and admission for psychiatric treatment. MD Complaint: suicidal ideation, feels depressed -: days(s) Associated Psychiatric Symptoms: depression, suicidal ideation If Self Harm: admits thoughts of self harm, has plan - Related Data Home Medications Medication Instructions Recorded Confirmed Hydrochlorothiazide 25 mg PO DAILY 05/15/18 05/22/18 Aspirin EC [Ecotrin Low Dose] 81 mg PO DAILY 05/22/18 05/22/18 Lurasidone [Latuda] 40 mg PO HS 05/22/18 05/22/18 Pramipexole [Mirapex] 1 mg PO HS 05/22/18 05/22/18 lamoTRIgine [LaMICtal] 200 mg PO HS 05/22/18 05/22/18 Previous Rx's Medication Instructions Recorded Gabapentin [Neurontin] 400 mg PO TID 30 Days #90 cap 04/11/18 Lisinopril [Zestril] 20 mg PO DAILY 30 Days #30 tab 04/11/18 Pantoprazole [Protonix] 40 mg PO AC-BID 30 Days #30 04/11/18 tablet. amLODIPine [Norvasc] 10 mg PO DAILY 30 Days #30 tab 04/11/18 cloNIDine HCL [Catapres] 0.2 mg PO TID 30 Days #90 tab 04/11/18 traZODone HCL [Desyrel] 200 mg PO HS 30 Days #30 tab 04/11/18 Allergies Allergy/AdvReac Type Severity Reaction Status Date / Time ibuprofen [From Motrin] AdvReac Nausea & Verified 05/22/18 16:56 Vomiting simvastatin [From Zocor] AdvReac Dizziness Verified 05/22/18 16:56 Past Medical History Past Medical History: Atrial Fibrillation, Hyperlipidemia, Hypertension Additional Past Medical History / Comment(s): Pt recently admitted on 03/13/18 with costrochondritis with abnormal stress echo/ normal cardiac cath. Other hx : Chronic pain, chronic low back pain with bilateral sciatica, neuropathy bilateral hands/feet, migraines, partial SBO, kidney stones. History of Any Multi-Drug Resistant Organisms: MRSA Date of last positivie culture/infection: 04/10/18 MDRO Source:: TOE Past Surgical History: Heart Catheterization, Orthopedic Surgery Additional Past Surgical History / Comment(s): 03/14/18 Cardiac cath-normal coronaries, L shoulder rotator cuff repair x2, cervical injection. Past Anesthesia/Blood Transfusion Reactions: No Reported Reaction Past Psychological History: Bipolar, Depression, Schizophrenia Smoking Status: Current every day smoker Past Alcohol Use History: None Reported Past Drug Use History: Marijuana - Past Family History Father Family Medical History: Myocardial Infarction ([place]) Additional Family Medical History / Comment(s): mi at age 35, still living Mother Family Medical History: Myocardial Infarction ([place]) Additional Family Medical History / Comment(s): Mother has had at least one [place]- pt unsure at what age. He has not had much contact with his mother since he was 17 yrs old. Lab Data Lab Results 05/22/18 Range/Units 16:32 Urine Opiates Screen Not Detected (NotDetected) Ur Oxycodone Screen Not Detected (NotDetected) Urine Methadone Screen Not Detected (NotDetected) Ur Propoxyphene Screen Not Detected (NotDetected) Ur Barbiturates Screen Not Detected (NotDetected) U Tricyclic Antidepress Not Detected (NotDetected) Ur Phencyclidine Scrn Not Detected (NotDetected) Ur Amphetamines Screen Not Detected (NotDetected) U Methamphetamines Scrn Detected H (NotDetected) U Benzodiazepines Scrn Not Detected (NotDetected) Urine Cocaine Screen Not Detected (NotDetected) U Marijuana (THC) Screen Detected H (NotDetected) Current Visit: Yes Status: Acute Priority: High (2) Depression Current Visit: No Status: Chronic Priority: Medium Hospital Course: Plan of Care: [He was admitted formal voluntary to [address] [place] [address] for treatment of suicidal ideation and severe depression with anxiety and posttraumatic stress disorder. He was placed on 15 minute checks and usual protocol for unit. He was restarted on his medications which included as listed below gabapentin, and also pro-, Latuda 40 mg po qhs, Protonix, Mirapex 0.125 mg twice a day and Mirapex 1 mg by mouth daily at bedtime Norvasc 10 mg Catapres 0.1 mg 3 times a day Mucinex 600 mg every 12 hours Lamictal 200 mg by mouth daily at bedtime and trazodone 200 mg by mouth daily at bedtime. He'll be evaluated by medicine, psychiatry, social work, nursing staff and occupational therapy will be expected to go to groups in the [facility] therapeutic environment. Discharge Medication List Lisinopril [Zestril] 20 mg PO DAILY 30 Days #30 tab 04/11/18 [Rx] amLODIPine [Norvasc] 10 mg PO DAILY 30 Days #30 tab 04/11/18 [Rx] cloNIDine HCL [Catapres] 0.2 mg PO TID 30 Days #90 tab 04/11/18 [Rx] Hydrochlorothiazide 25 mg PO DAILY 05/15/18 [History] Gabapentin [Neurontin] 400 mg PO TID cap 05/27/18 [Rx] Gabapentin [Neurontin] 400 mg PO TID 30 Days #90 cap 05/27/18 [Rx] Hydrochlorothiazide [Hydrodiuril] 25 mg PO DAILY tab 05/27/18 [Rx] Lurasidone [Latuda] 40 mg PO HS 30 Days #30 tab 05/27/18 [Rx] Nicotine 14Mg/24Hr Patch [Habitrol] 1 patch TRANSDERM DAILY 30 Days #30 patch [Rx] Pramipexole [Mirapex] 0.125 mg PO BID 30 Days #60 tab 05/27/18 [Rx] Pramipexole [Mirapex] 1 mg PO HS 30 Days #30 tab 05/27/18 [Rx] cloNIDine HCL [Catapres] 0.1 mg PO BID tab 05/27/18 [Rx] lamoTRIgine [LaMICtal] 200 mg PO HS 30 Days #30 tablet 05/27/18 [Rx] traZODone HCL [Desyrel] 200 mg PO HS 30 Days #30 tab 01/22/19 [Rx] Mental status examination time of discharge: The patient presents alert, pleasant, and cooperative. There calmly seated without any agitated behavior. [He] reports that [his] mood is good. Affect is congruent and euthymic. [He] deny having any suicidal or homicidal ideation intent or plan. [He] denies any auditory or visual hallucinations. There is no evidence of any delusional thought content. [His] thought process is linear and goal-directed. [His] speech is fluent and nonpressured. [His] memory and concentration is grossly intact for the purposes of this session. Patient Condition at Discharge: Stable Plan - Discharge Summary Discharge Rx Participant: Yes New Discharge Prescriptions: New cloNIDine HCL [Catapres] 0.1 mg PO BID tab Gabapentin [Neurontin] 400 mg PO TID cap Hydrochlorothiazide [Hydrodiuril] 25 mg PO DAILY tab Nicotine 14Mg/24Hr Patch [Habitrol] 1 patch TRANSDERM DAILY 30 Days #30 patch Pramipexole [Mirapex] 1 mg PO HS 30 Days #30 tab Pramipexole [Mirapex] 0.125 mg PO BID 30 Days #60 tab Continue cloNIDine HCL [Catapres] 0.2 mg PO TID 30 Days #90 tab Lisinopril [Zestril] 20 mg PO DAILY 30 Days #30 tab amLODIPine [Norvasc] 10 mg PO DAILY 30 Days #30 tab Hydrochlorothiazide 25 mg PO DAILY Gabapentin [Neurontin] 400 mg PO TID 30 Days #90 cap lamoTRIgine [LaMICtal] 200 mg PO HS 30 Days #30 tablet Lurasidone [Latuda] 40 mg PO HS 30 Days #30 tab traZODone HCL [Desyrel] 200 mg PO HS 30 Days #30 tab Discontinued Pantoprazole [Protonix] 40 mg PO AC-BID 30 Days #30 tablet. Pramipexole [Mirapex] 1 mg PO HS Aspirin EC [Ecotrin Low Dose] 81 mg PO DAILY Discharge Medication List Lisinopril [Zestril] 20 mg PO DAILY 30 Days #30 tab 04/11/18 [Rx] amLODIPine [Norvasc] 10 mg PO DAILY 30 Days #30 tab 04/11/18 [Rx] cloNIDine HCL [Catapres] 0.2 mg PO TID 30 Days #90 tab 04/11/18 [Rx] Hydrochlorothiazide 25 mg PO DAILY 05/15/18 [History] Gabapentin [Neurontin] 400 mg PO TID cap 05/27/18 [Rx] Gabapentin [Neurontin] 400 mg PO TID 30 Days #90 cap 05/27/18 [Rx] Hydrochlorothiazide [Hydrodiuril] 25 mg PO DAILY tab 05/27/18 [Rx] Lurasidone [Latuda] 40 mg PO HS 30 Days #30 tab 05/27/18 [Rx] Nicotine 14Mg/24Hr Patch [Habitrol] 1 patch TRANSDERM DAILY 30 Days #30 patch [Rx] Pramipexole [Mirapex] 0.125 mg PO BID 30 Days #60 tab 05/27/18 [Rx] Pramipexole [Mirapex] 1 mg PO HS 30 Days #30 tab 05/27/18 [Rx] cloNIDine HCL [Catapres] 0.1 mg PO BID tab 05/27/18 [Rx] lamoTRIgine [LaMICtal] 200 mg PO HS 30 Days #30 tablet 05/27/18 [Rx] traZODone HCL [Desyrel] 200 mg PO HS 30 Days #30 tab 05/27/18 [Rx] Follow up Appointment(s)/Referral(s): [facility] [Outside] - 1 Week (w/ Dr. Stauffer on 06/02/18 @ 9am w/ Janel Bell on 05/29/18 @ 9am) Viktoria Richardson MD [Primary Care Provider] - 1 Week Patient Instructions/Handouts: How to Stop Smoking (GEN) Discharge Disposition: HOME SELF-CARE
== END 2018-05-27 13:30 | disposition home or self-care (01) | DRG 885 ==
LOC: EC 16:13 → 3MHU 18:35
PROVIDERS: ADMIT Psychiatry & Neurology Psychiatry; ATTEND Psychiatry & Neurology Psychiatry
DX: F33.9 Major depressive disorder, recurrent, unspecified (principal); R45.851 Suicidal ideations; F20.9 Schizophrenia, unspecified; I48.91 Unspecified atrial fibrillation; G62.9 Polyneuropathy, unspecified; E78.5 Hyperlipidemia, unspecified; F17.200 Nicotine dependence, unspecified, uncomplicated; F41.8 Other specified anxiety disorders; F43.10 Post-traumatic stress disorder, unspecified; I10 Essential (primary) hypertension; G43.909 Migraine, unspecified, not intractable, without status migrainosus; G89.29 Other chronic pain; M54.41 Lumbago with sciatica, right side; M54.42 Lumbago with sciatica, left side; Z79.82 Long term (current) use of aspirin; Z79.899 Other long term (current) drug therapy; Z87.442 Personal history of urinary calculi; Z91.19 Patient's noncompliance with other medical treatment and regimen; Z88.6 Allergy status to analgesic agent; Z88.8 Allergy status to other drugs, medicaments and biological substances; Z86.14 Personal history of Methicillin resistant Staphylococcus aureus infection; Z82.49 Family history of ischemic heart disease and other diseases of the circulatory system
CPT/HCPCS: 80048; 80076; 80306; 82075; 83036; 84443; 85025; 87390; 99285

== ENCOUNTER 2018-06-08 13:46 | Emergency (ER) | payer OTHER ==
[2018-06-08 13:53] VITALS: BP 137/82; PULSE 93; RESP 18; TEMP 98.3
--- NOTE | 2018-06-08 14:07 | ED ---
Upper Extremity HPI - General Chief Complaint: Extremity Injury, Upper Stated Complaint: Shoulder pain Time Seen by Provider: 06/08/18 13:56 Source: patient, RN notes reviewed Mode of arrival: ambulatory Limitations: no limitations - History of Present Illness Initial Comments: 48-year-old male presents emergency Department with chief complaint of right shoulder pain. Patient states that yesterday he lifted a couch. Patient states he felt a snap. Patient states she's had pain and % unable to move his shoulder. Patient states the pain is bearable if not moving. He has had prior left rotator cuff surgery secondary to rupture. Patient does see Dr. Melendez. Patient denies any paresthesias denies any chest pain or shortness breath no neck or head pain - Related Data Previous Rx's Medication Instructions Recorded Lisinopril [Zestril] 20 mg PO DAILY 30 Days #30 tab 04/11/18 amLODIPine [Norvasc] 10 mg PO DAILY 30 Days #30 tab 04/11/18 Gabapentin [Neurontin] 400 mg PO TID 30 Days #90 cap 05/27/18 Hydrochlorothiazide [Hydrodiuril] 25 mg PO DAILY tab 05/27/18 Lurasidone [Latuda] 40 mg PO HS 30 Days #30 tab 05/27/18 Nicotine 14Mg/24Hr Patch [Habitrol] 1 patch TRANSDERM DAILY 30 Days 05/27/18 #30 patch Pramipexole [Mirapex] 0.125 mg PO BID 30 Days #60 tab 05/27/18 Pramipexole [Mirapex] 1 mg PO HS 30 Days #30 tab 05/27/18 cloNIDine HCL [Catapres] 0.1 mg PO BID tab 05/27/18 lamoTRIgine [LaMICtal] 200 mg PO HS 30 Days #30 tablet 05/27/18 traZODone HCL [Desyrel] 200 mg PO HS 30 Days #30 tab 05/27/18 Naproxen [Naprosyn] 500 mg PO Q12HR #20 tab 06/08/18 Allergies Allergy/AdvReac Type Severity Reaction Status Date / Time ibuprofen [From Motrin] AdvReac Nausea & Verified 06/08/18 14:13 Vomiting simvastatin [From Zocor] AdvReac Dizziness Verified 06/08/18 14:13 Review of Systems ROS Statement: Those systems with pertinent positive or pertinent negative responses have been documented in the HPI. ROS Other: All systems not noted in ROS Statement are negative. Past Medical History Past Medical History: Atrial Fibrillation, Hyperlipidemia, Hypertension Additional Past Medical History / Comment(s): Pt recently admitted on 03/13/18 with costrochondritis with abnormal stress echo/ normal cardiac cath. Other hx : Chronic pain, chronic low back pain with bilateral sciatica, neuropathy bilateral hands/feet, migraines, partial SBO, kidney stones. History of Any Multi-Drug Resistant Organisms: MRSA Date of last positivie culture/infection: 04/10/18 MDRO Source:: TOE Past Surgical History: Heart Catheterization, Orthopedic Surgery Additional Past Surgical History / Comment(s): 03/14/18 Cardiac cath-normal coronaries, L shoulder rotator cuff repair x2, cervical injection. Past Anesthesia/Blood Transfusion Reactions: No Reported Reaction Past Psychological History: Bipolar, Depression, Schizophrenia Smoking Status: Current every day smoker Past Alcohol Use History: None Reported Past Drug Use History: Marijuana - Past Family History Father Family Medical History: Myocardial Infarction ([place]) Additional Family Medical History / Comment(s): mi at age 35, still living Mother Family Medical History: Myocardial Infarction ([place]) Additional Family Medical History / Comment(s): Mother has had at least one [place]- pt unsure at what age. He has not had much contact with his mother since he was 17 yrs old. General Exam Limitations: no limitations General appearance: alert, in no apparent distress Head exam: Present: atraumatic, normocephalic, normal inspection Eye exam: Present: normal appearance, PERRL, EOMI. Absent: scleral icterus, conjunctival injection, periorbital swelling Neck exam: Present: normal inspection, full ROM. Absent: tenderness, meningismus, lymphadenopathy Respiratory exam: Present: normal lung sounds bilaterally. Absent: respiratory distress, wheezes, rales, rhonchi, stridor Cardiovascular Exam: Present: regular rate, normal rhythm, normal heart sounds. Absent: systolic murmur, diastolic murmur, rubs, gallop, clicks Extremities exam: Present: other (Right shoulder limited range of motion secondary to pain and inability to lift. Neurovascular intact, diffuse tenderness no bicep tendon rupture noted, patient has full range of motion of right elbow) Neurological exam: Present: reflexes normal. Absent: motor sensory deficit Skin exam: Present: warm, dry, intact, normal color. Absent: rash Course Vital Signs 06/08/18 13:51 Temperature 98.3 F Pulse Rate 93 Respiratory 18 Rate Blood Pressure 137/82 O2 Sat by Pulse 96 Oximetry Medical Decision Making - Medical Decision Making 48-year-old male presented from for right shoulder pain. Patient most likely is rotator cuff injury will be placed in a sling follow-up with orthopedics. Patient will be discharged with naproxen. Patient reports nausea with ibuprofen. Patient advised to take with food return parameters were discussed. Disposition Clinical Impression: Right shoulder strain Disposition: HOME SELF-CARE Condition: Stable Instructions (If sedation given, give patient instructions): Rotator Cuff Injury (ED) Additional Instructions: Please return to the Emergency Department if symptoms worsen or any other concerns. Prescriptions: Naproxen [Naprosyn] 500 mg PO Q12HR #20 tab Is patient prescribed a controlled substance at d/c from ED?: No Referrals: Viktoria Richardson MD [Primary Care Provider] - 1-2 days Chris Melendez MD [STAFF PHYSICIAN] - 1-2 days Time of Disposition: 14:30
--- NOTE | 2018-06-08 14:19 | XR ---
EXAMINATION TYPE: XR shoulder complete RT DATE OF EXAM: 06/08/2018 COMPARISON: NONE HISTORY: Pain TECHNIQUE: 3 views FINDINGS: I see no fracture nor dislocation. Joint spaces are normal. There are no pathologic calcifi cations. IMPRESSION: Negative right shoulder exam.
== END 2018-06-08 14:41 | disposition home or self-care (01) ==
LOC: EC 13:46
DX: S46.911A Strain of unspecified muscle, fascia and tendon at shoulder and upper arm level, right arm, initial encounter (principal); I48.91 Unspecified atrial fibrillation; F17.200 Nicotine dependence, unspecified, uncomplicated; Z86.14 Personal history of Methicillin resistant Staphylococcus aureus infection; Z88.6 Allergy status to analgesic agent; Z88.8 Allergy status to other drugs, medicaments and biological substances; Z95.818 Presence of other cardiac implants and grafts; X50.0XXA Overexertion from strenuous movement or load, initial encounter
CPT/HCPCS: 99283

== ENCOUNTER 2018-07-04 10:13 | Observation (INO) | payer OTHER ==
[2018-07-04] MEDS ORDERED: IPRATROPIUM-ALBUTEROL 3 ML NEB INHALATION STA (10:39)
--- NOTE | 2018-07-04 10:44 | ED ---
Chest Pain HPI - General Chief Complaint: Chest Pain Stated Complaint: Chest pain/cough Time Seen by Provider: 07/04/18 10:20 Source: patient, RN notes reviewed, old records reviewed Mode of arrival: wheelchair Limitations: no limitations - History of Present Illness Initial Comments: This is a 48-year-old male with a history of A. fib and hypertension who states for the past week or so is had intermittent anterior chest discomfort like somebody sitting on his chest. He states his been pretty constant last 2 days he has had a cough of yellow-green phlegm dyspnea and fever starting yesterday he also had nausea vomiting yesterday. He states the pain gets worse with deep breathing and movements. He is a smoker about 10 cigarettes per day states she hasn't smoked much last couple days. Currently no other modifying factors he has no family history of heart disease at early age. MD Complaint: chest pain, other - Related Data Home Medications Medication Instructions Recorded Confirmed Aspirin EC [Ecotrin Low Dose] 81 mg PO DAILY 07/04/18 07/04/18 cloNIDine HCL [Catapres] 0.2 mg PO TID 07/04/18 07/04/18 Previous Rx's Medication Instructions Recorded Lisinopril [Zestril] 20 mg PO DAILY 30 Days #30 tab 04/11/18 amLODIPine [Norvasc] 10 mg PO DAILY 30 Days #30 tab 04/11/18 Gabapentin [Neurontin] 400 mg PO TID 30 Days #90 cap 05/27/18 Hydrochlorothiazide [Hydrodiuril] 25 mg PO DAILY tab 05/27/18 Lurasidone [Latuda] 40 mg PO HS 30 Days #30 tab 05/27/18 Pramipexole [Mirapex] 0.125 mg PO BID 30 Days #60 tab 05/27/18 Pramipexole [Mirapex] 1 mg PO HS 30 Days #30 tab 05/27/18 lamoTRIgine [LaMICtal] 200 mg PO HS 30 Days #30 tablet 05/27/18 Allergies Allergy/AdvReac Type Severity Reaction Status Date / Time ibuprofen [From Motrin] AdvReac Nausea & Verified 07/04/18 10:18 Vomiting simvastatin [From Zocor] AdvReac Dizziness Verified 07/04/18 10:18 Review of Systems ROS Statement: Those systems with pertinent positive or pertinent negative responses have been documented in the HPI. ROS Other: All systems not noted in ROS Statement are negative. EKG Findings - EKG Results: EKG: interpreted by JACIEL (Sinus rhythm rate of 85. [place] Interval 184 QRS duration 90 QT / QTC 36/459 no acute changes) Past Medical History Past Medical History: Atrial Fibrillation, Hyperlipidemia, Hypertension Additional Past Medical History / Comment(s): Pt recently admitted on 03/13/18 with costrochondritis with abnormal stress echo/ normal cardiac cath. Other hx : Chronic pain, chronic low back pain with bilateral sciatica, neuropathy bilateral hands/feet, migraines, partial SBO, kidney stones. History of Any Multi-Drug Resistant Organisms: MRSA Date of last positivie culture/infection: 04/10/18 MDRO Source:: TOE Past Surgical History: Heart Catheterization, Orthopedic Surgery Additional Past Surgical History / Comment(s): 03/14/18 Cardiac cath-normal coronaries, L shoulder rotator cuff repair x2, cervical injection. Past Anesthesia/Blood Transfusion Reactions: No Reported Reaction Past Psychological History: Bipolar, Depression, Schizophrenia Smoking Status: Current every day smoker Past Alcohol Use History: None Reported Past Drug Use History: Marijuana - Past Family History Father Family Medical History: Myocardial Infarction ([place]) Additional Family Medical History / Comment(s): mi at age 35, still living Mother Family Medical History: Myocardial Infarction ([place]) Additional Family Medical History / Comment(s): Mother has had at least one [place]- pt unsure at what age. He has not had much contact with his mother since he was 17 yrs old. General Exam - General Exam Comments Initial Comments: This is a well-developed well-nourished awake alert oriented 3 male Limitations: no limitations General appearance: alert, in no apparent distress Head exam: Present: atraumatic, normocephalic, normal inspection Eye exam: Present: normal appearance, PERRL, EOMI. Absent: scleral icterus, conjunctival injection, periorbital swelling ENT exam: Present: mucous membranes dry Neck exam: Present: normal inspection, full ROM, other (No stridor JVD or bruits ). Absent: tenderness, meningismus, lymphadenopathy Respiratory exam: Present: chest wall tenderness (Tennis palpation of the paraspinous muscles in the mid to upper thorax. No spinous process tenderness) , decreased breath sounds. Absent: respiratory distress, wheezes, rales, rhonchi, stridor Cardiovascular Exam: Present: regular rate, normal rhythm, normal heart sounds. Absent: systolic murmur, diastolic murmur, rubs, gallop, clicks GI/Abdominal exam: Present: soft, normal bowel sounds. Absent: distended, tenderness, guarding, rebound, rigid, bruit, pulsatile mass Extremities exam: Present: normal inspection, full ROM, normal capillary refill. Absent: tenderness, pedal edema, joint swelling, calf tenderness Back exam: Present: normal inspection Neurological exam: Present: alert, oriented X3, CN II-XII intact Psychiatric exam: Present: normal affect, normal mood Skin exam: Present: warm, dry, intact, normal color. Absent: rash Course Vital Signs 07/04/18 07/04/18 07/04/18 10:16 11:11 11:20 Temperature 98.1 F Pulse Rate 85 75 77 Respiratory 22 Rate Blood Pressure 129/86 O2 Sat by Pulse 97 Oximetry 07/04/18 07/04/18 12:00 13:00 Temperature Pulse Rate 81 77 Respiratory 18 18 Rate Blood Pressure 134/93 119/71 O2 Sat by Pulse 96 97 Oximetry - Reevaluation(s) Reevaluation #1: 07/04/18 13:08 I did reevaluate patient several occasions he still has chest tightness. No relief from nitroglycerin also no relief from IV Toradol. Patient is not ALLERGIC to ibuprofen changes gets gastritis type symptoms from it. No rashes no shortness of breath. Procedures - Smoking Cessation Time Spent Discussing Smoking Cessation w/Patient (Minutes): 3 Patient Acknowledges Need for Cessation: Yes Chest Pain MDM - MDM I did review the imaging and report LEFT lower lobe infiltrates noted. The patient will be admitted I did discuss case with patient will be admitted place an IV antibiotics and breathing treatments Disposition Clinical Impression: Left lower lobe pneumonia, Atypical chest pain, Bronchospasm, acute, Smoking Disposition: ADMITTED IP TO THIS HOSP Condition: Stable Referrals: Viktoria Richardson MD [Primary Care Provider] - 1-2 days
[2018-07-04 11:32] LABS: Basophils # (A) 0.1 k/uL (0-0.2); Basophils % (A) 1 %; Eosinophils # (A) 0.3 k/uL (0-0.7); Eosinophils % (A) 3 %; HCT 42.5 % (39.0-53.0); HGB 15.5 gm/dL (13.0-17.5); Lymphocytes # (A) 1.3 k/uL (1.0-4.8); Lymphocytes % (A) 12 %; MCHC 36.6 g/dL (31.0-37.0); Mean Platelet Volume 7.4; Monocytes # (A) 0.9 k/uL (0-1.0); Monocytes % (A) 9 %; Neutrophils # (A) 7.9 k/uL (1.3-7.7); Neutrophils % (A) 74 %; Platelet Count 263 k/uL (150-450); RBC 4.85 m/uL (4.30-5.90); RDW 13.2 % (11.5-15.5); WBC 10.7 k/uL (3.8-10.6)
[2018-07-04 11:33] LABS: ALT 37 U/L (21-72); AST 24 U/L (17-59); Alkaline Phosphatase 75 U/L (38-126); Anion Gap 9 mmol/L; Blood Urea Nitrogen 15 mg/dL (9-20); Calcium 9.4 mg/dL (8.4-10.2); Carbon Dioxide 23 mmol/L (22-30); Chloride 108 mmol/L (98-107); Glucose 96 mg/dL (74-99); Magnesium 1.9 mg/dL (1.6-2.3); Potassium 3.9 mmol/L (3.5-5.1); Sodium 140 mmol/L (137-145); Total Bilirubin 0.8 mg/dL (0.2-1.3); Total Protein 7.1 g/dL (6.3-8.2)
[2018-07-04 11:34] LABS: MCV 87.5 fL (80.0-100.0)
[2018-07-04 11:35] LABS: D-Dimer 0.43 mg/L FEU (<0.60); INR 0.9 (<1.2); Partial Thromboplastin Time 24.5 sec (22.0-30.0); Prothrombin Time 10.1 sec (9.0-12.0)
--- NOTE | 2018-07-04 11:46 | XR ---
EXAMINATION TYPE: XR chest 2V DATE OF EXAM: 07/04/2018 COMPARISON: 03/25/2018 INDICATION: Cough TECHNIQUE: Frontal and lateral views of the chest are obtained. FINDINGS: The heart size is normal. The pulmonary vasculature is normal. Mild diffuse infiltration of the left lower lobe, correlate for atelectasis and pneumonia.. IMPRESSION: 1. Mild diffuse left lower lobe infiltrate. Correlate for atelectasis and pneumonia
[2018-07-04] MEDS ORDERED: NITROGLYCERIN SL TABS 0.4 MG TAB SUBLINGUAL STA (11:56)
[2018-07-04] MEDS ORDERED: cefTRIAXone IN SWFI 1,000 MG/10 ML SYRINGE IVP STA (12:07)
[2018-07-04] MEDS ORDERED: KETOROLAC 30 MG/ML 1 ML VIAL IVP STA (12:07)
[2018-07-04] MEDS ORDERED: fentaNYL (PF) 50 MCG/ML 2 ML AMP IV STA (13:15)
[2018-07-04] MEDS ORDERED: AZITHROMYCIN 500 MG in SODIUM CHLORIDE 0.9% 250 ML IVPB STA (13:17)
[2018-07-04] MEDS ORDERED: PNEUMONIA PROTOCOL UTILIZED 1 EACH MISC PO PRN (13:17)
[2018-07-04] MEDS ORDERED: NITROGLYCERIN SL TABS 0.4 MG TAB SUBLINGUAL PRN (13:20)
[2018-07-04] MEDS ORDERED: NALOXONE 0.4 MG/ML 1 ML VIAL IV PRN (14:32)
[2018-07-04] MEDS ORDERED: ACETAMINOPHEN TAB 325 MG TAB PO PRN (14:32)
--- NOTE | 2018-07-04 14:51 | P.HPIM ---
History of Present Illness H&P Date: 07/04/18 Chief Complaint: Chest pain, cough, shortness of breath 48 are old male with PMH of hypertension presents the ED for chest pain, cough. Patient reports that all symptoms began about one week ago. Patient reports waking up in the morning last week with excruciating chest pain. Patient reported that the chest pain was constant, midline and 10 out of 10 in severity. Patient described the pain as knifelike and stabbing in nature, radiating to the back. Pain was aggravated with movement and with deep inspiration. There were no alleviating factors. There are no prior incidents. Along with his chest pain, patient reported associated shortness of breath and cough. His shortness of breath is exertional. Patient reports usually being able to walk greater than 10 blocks daily, currently unable to walk less than one block. His cough is productive of yellow/green mucus. He denies any sick contacts. He endorses subjective fever and chills yesterday. He endorses 3 incidents of nonbilious nonbloody vomiting yesterday. He denies any headaches , lower extremity edema, palpitations, changes in urination or bowel habits. He does endorse a decreased appetite. In the ED, patient was noted to have a mild leukocytosis of 10.7. Troponin is less than 0.012, EKG showing normal sinus rhythm. Chest x-ray showing left lower lobe infiltrate. Patient is admitted for pneumonia. Patient also admitted for chest pain, rule out acute coronary syndrome. Past Medical History Past Medical History: Atrial Fibrillation, Hyperlipidemia, Hypertension Additional Past Medical History / Comment(s): Pt recently admitted on 03/13/18 with costrochondritis with abnormal stress echo/ normal cardiac cath. Other hx : Chronic pain, chronic low back pain with bilateral sciatica, neuropathy bilateral hands/feet, migraines, partial SBO, kidney stones. History of Any Multi-Drug Resistant Organisms: MRSA Date of last positivie culture/infection: 04/10/18 MDRO Source:: TOE Past Surgical History: Heart Catheterization, Orthopedic Surgery Additional Past Surgical History / Comment(s): 03/14/18 Cardiac cath-normal coronaries, L shoulder rotator cuff repair x2, cervical injection. Past Anesthesia/Blood Transfusion Reactions: No Reported Reaction Past Psychological History: Bipolar, Depression, Schizophrenia Smoking Status: Current every day smoker Past Alcohol Use History: None Reported Past Drug Use History: Marijuana - Past Family History Father Family Medical History: Myocardial Infarction (HI) Additional Family Medical History / Comment(s): mi at age 35, still living Mother Family Medical History: Myocardial Infarction (HI) Additional Family Medical History / Comment(s): Mother has had at least one HI- pt unsure at what age. He has not had much contact with his mother since he was 17 yrs old. Medications and Allergies Home Medications Medication Instructions Recorded Confirmed Type Lisinopril [Zestril] 20 mg PO DAILY 30 Days #30 tab 04/11/18 07/04/18 Rx amLODIPine [Norvasc] 10 mg PO DAILY 30 Days #30 tab 04/11/18 07/04/18 Rx Gabapentin [Neurontin] 400 mg PO TID 30 Days #90 cap 05/27/18 07/04/18 Rx Hydrochlorothiazide [Hydrodiuril] 25 mg PO DAILY tab 05/27/18 07/04/18 Rx Lurasidone [Latuda] 40 mg PO HS 30 Days #30 tab 05/27/18 07/04/18 Rx Pramipexole [Mirapex] 0.125 mg PO BID 30 Days #60 tab 05/27/18 07/04/18 Rx Pramipexole [Mirapex] 1 mg PO HS 30 Days #30 tab 05/27/18 07/04/18 Rx lamoTRIgine [LaMICtal] 200 mg PO HS 30 Days #30 tablet 05/27/18 07/04/18 Rx Aspirin EC [Ecotrin Low Dose] 81 mg PO DAILY 07/04/18 07/04/18 History cloNIDine HCL [Catapres] 0.2 mg PO TID 07/04/18 07/04/18 History Allergies Allergy/AdvReac Type Severity Reaction Status Date / Time ibuprofen [From Motrin] AdvReac Nausea & Verified 07/04/18 10:18 Vomiting simvastatin [From Zocor] AdvReac Dizziness Verified 07/04/18 10:18 Physical Exam Vitals: Vital Signs Temp Pulse Resp BP Pulse Ox 07/04/18 13:26 98.4 F 61 18 136/89 98 07/04/18 13:00 77 18 119/71 97 07/04/18 12:00 81 18 134/93 96 07/04/18 11:20 77 07/04/18 11:11 75 03/01/19 10:16 98.1 F 85 22 129/86 97 Intake and Output 07/03/18 07/04/18 07/04/18 22:59 06:59 14:59 Other: Weight 104.326 kg General: [non toxic], [no distress], [appears at stated age] Derm: [warm], [dry] Head: [atraumatic], [normocephalic], [symmetric] Eyes: [EOMI], [no lid lag], [anicteric sclera] Mouth: [no lip lesion], [mucus membranes moist] Cardiovascular: [S1S2 reg], [no murmur], [positive DP pulse bilateral] Lungs: [CTA bilateral], [no rhonchi, no rales] , [no accessory muscle use] Abdominal: [soft], [ nontender to palpation], [no guarding], [no appreciable organomegaly] Ext: [no gross muscle atrophy], [no edema], [no contractures] Neuro: [ CN II-XI grossly intact], [no focal neuro deficits] Psych: [Alert], [oriented], [appropriate affect] Results CBC & Chem 7: 07/04/18 10:50 07/04/18 10:50 Labs: Abnormal Lab Results - Last 24 Hours (Table) 07/04/18 07/04/18 Range/Units 10:50 10:50 WBC 10.7 H (3.8-10.6) k/uL Neutrophils # 7.9 H (1.3-7.7) k/uL Chloride 108 H (98-107) mmol/L Thrombosis Risk Factor Assmnt - Choose All That Apply Any of the Below Risk Factors Present?: Yes Each Factor Represents 1 point: Age 41-60 years, Obesity (BMI >25) Other Risk Factors: Yes Each Risk Factor Represents 2 Points: Age 61-74 years Thrombosis Risk Factor Assessment Total Risk Factor Score: 4 Thrombosis Risk Factor Assessment Level: Moderate Risk Assessment and Plan Assessment: Assessment and Plan 1. Community-acquired pneumonia 2. Chest pain 3. Hypertension 1. As seen on chest x-ray. Denies any sick contacts, HCAP Risks. Continue ceftriaxone and azithromycin IV. Tylenol as needed for fever. DuoNeb scheduled for shortness of breath and wheezing. Will follow blood cultures and sputum cultures. Follow chest x-ray in the morning. Oxygen per nasal cannula to maintain an oxygen saturation greater than 92%. Start Robitussin twice a day. 2. Appears to be pleuritic in nature. Troponin less than 0.012, EKG showing normal sinus rhythm. Plans to rule out ACS. Trend 2 troponin/EKG. Telemetry monitoring. Continue aspirin 81 mg by mouth daily. Follow lipid panel. 3. BP 138/99. Continue amlodipine 10 mg daily, clonidine 0.2 mg 3 times a day , hydrochlorothiazide 25 mg by mouth daily, lisinopril 20 mg by mouth daily. Monitor vitals, adjust medications as necessary. Patient admitted for treatment of community-acquired pneumonia and chest pain, rule out acute coronary syndrome. Patient name his Елена decision-maker in the case that he can't make decisions for himself. Patient reiterates that he would like to remain full code.
[2018-07-04] MEDS: IPRATROPIUM-ALBUTEROL 3 ML NEB INHALATION SCH ×3 (15:50→23:57)
[2018-07-04] MEDS: SODIUM CHLORIDE 0.9% 1,000 ML IV SCH ×2 (16:45→23:28)
[2018-07-04] MEDS: GABAPENTIN 400 MG CAP PO SCH ×2 (17:05→21:17)
[2018-07-04] MEDS: MORPHINE SULFATE 2 MG/ML SYRINGE IV PRN ×2 (17:10→20:28)
[2018-07-04] MEDS: cloNIDine HCL 0.2 MG TAB PO SCH ×2 (17:30→21:17)
[2018-07-04] MEDS: guaiFENesin 600 MG TABLET.ER PO SCH (21:15)
[2018-07-04] MEDS: PRAMIPEXOLE 0.125 MG TAB PO SCH (21:16)
[2018-07-04] MEDS: lamoTRIgine 100 MG TAB PO SCH (21:16)
[2018-07-04] MEDS: LURASIDONE 40 MG TAB PO SCH (21:16)
[2018-07-04] MEDS: PRAMIPEXOLE 1 MG TAB PO SCH (21:16)
[2018-07-05] MEDS: MORPHINE SULFATE 2 MG/ML SYRINGE IV PRN ×6 (00:45→23:25)
[2018-07-05] MEDS: IPRATROPIUM-ALBUTEROL 3 ML NEB INHALATION SCH ×5 (03:42→19:18)
--- NOTE | 2018-07-05 07:01 | XR ---
EXAMINATION TYPE: XR chest 2V DATE OF EXAM: 07/05/2018 COMPARISON: Chest x-ray from yesterday and older studies. HISTORY: Pneumonia, abnormal x-ray. TECHNIQUE: Frontal and lateral views of the chest are obtained. FINDINGS: There is persistent lingular opacity confirmed on 2 views. There is background chronic pare nchymal change. There is no new suspicious focal air space opacity, pleural effusion, or pneumothora x seen. The cardiac silhouette size is stable and within normal limits. Overlying EKG leads are seen . The osseous structures are intact. IMPRESSION: Chronic parenchymal change with persistent lingular acute infiltrate and/or atelectasis. No significant interval change. No new infiltrate is seen.
[2018-07-05 07:48] LABS: Basophils % (A) 1 %; Eosinophils # (A) 0.3 k/uL (0-0.7); Eosinophils % (A) 4 %; HCT 37.7 % (39.0-53.0); HGB 13.3 gm/dL (13.0-17.5); Lymphocytes # (A) 1.2 k/uL (1.0-4.8); Lymphocytes % (A) 15 %; MCH 31.2 pg (25.0-35.0); MCHC 35.4 g/dL (31.0-37.0); MCV 88.3 fL (80.0-100.0); Mean Platelet Volume 7.6; Monocytes # (A) 0.7 k/uL (0-1.0); Monocytes % (A) 9 %; Neutrophils # (A) 5.7 k/uL (1.3-7.7); Neutrophils % (A) 70 %; Platelet Count 224 k/uL (150-450); RBC 4.27 m/uL (4.30-5.90); RDW 13.4 % (11.5-15.5); WBC 8.1 k/uL (3.8-10.6)
[2018-07-05 07:52] LABS: Cholesterol 128 mg/dL (<200); HDL Cholesterol 29 mg/dL (40-60); LDL Cholesterol,Calculated 75 mg/dL (0-99); Triglycerides 119 mg/dL (<150)
[2018-07-05] MEDS: LISINOPRIL 20 MG TAB PO SCH (08:02)
[2018-07-05] MEDS: GABAPENTIN 400 MG CAP PO SCH ×3 (08:02→21:14)
[2018-07-05] MEDS: amLODIPine 10 MG TAB PO SCH (08:03)
[2018-07-05] MEDS: guaiFENesin 600 MG TABLET.ER PO SCH ×2 (08:03→21:14)
[2018-07-05] MEDS: ASPIRIN 81 MG PO SCH (08:03)
[2018-07-05] MEDS: cloNIDine HCL 0.2 MG TAB PO SCH ×3 (08:03→21:16)
[2018-07-05] MEDS: PRAMIPEXOLE 0.125 MG TAB PO SCH ×2 (08:05→21:16)
[2018-07-05] MEDS: HYDROcodone/APAP 5-325MG 1 EACH TAB PO PRN ×4 (08:05→21:14)
[2018-07-05] MEDS: SODIUM CHLORIDE 0.9% 1,000 ML IV SCH ×2 (08:27→21:17)
[2018-07-05] MEDS: HYDROCHLOROTHIAZIDE 25 MG TAB PO SCH (10:16)
--- NOTE | 2018-07-05 11:01 | P.PN ---
Subjective Progress Note Date: 07/05/18 Principal diagnosis: Pneumonia Patient was seen and examined. No acute events overnight. Patient reports no changes in his breathing. He continues complaint shortness of breath and cough productive of yellow-green sputum. Patient reports that is barely able to ambulate to the bathroom without feeling dyspneic. He also complains of chest pain, only with cough. He denies any palpitations. He denies any dizziness. No nausea or vomiting. No fever or chills. Chest x-ray this morning showing persistent infiltrate. Objective - Vital Signs Vital signs: Vital Signs Temp 98.1 F 07/05/18 04:27 Pulse 69 07/05/18 08:29 Resp 16 07/05/18 04:27 BP 111/68 07/05/18 04:27 Pulse Ox 96 07/05/18 08:18 Intake & Output 07/04/18 07/05/18 07/05/18 18:59 06:59 18:59 Intake Total 0 Balance 0 Weight 104.326 kg 104 kg Intake: Oral 0 Other: Voiding Method Toilet Toilet # Voids 2 1 - Exam General: [non toxic], [appears fatigued and tired], [appears at stated age] Derm: [warm], [dry] Head: [atraumatic], [normocephalic], [symmetric] Eyes: [EOMI], [no lid lag], [anicteric sclera] Mouth: [no lip lesion], [mucus membranes moist] Cardiovascular: [S1S2 reg], [no murmur], [positive DP pulse bilateral] Lungs: [Decreased breath sounds on the left side, rales] , [no accessory muscle use] Abdominal: [soft], [ nontender to palpation], [no guarding], [no appreciable organomegaly] Ext: [no gross muscle atrophy], [no edema], [no contractures] Neuro: [no focal neuro deficits] Psych: [Alert], [oriented], [appropriate affect] - Labs CBC & Chem 7: 07/05/18 07:11 07/04/18 10:50 Labs: Abnormal Lab Results - Last 24 Hours (Table) 07/04/18 07/04/18 07/05/18 Range/Units 10:50 10:50 07:11 WBC 10.7 H (3.8-10.6) k/uL RBC (4.30-5.90) m/uL Hct (39.0-53.0) % Neutrophils # 7.9 H (1.3-7.7) k/uL Chloride 108 H (98-107) mmol/L HDL Cholesterol 29 L (40-60) mg/dL 07/05/18 Range/Units 07:11 WBC (3.8-10.6) k/uL RBC 4.27 L (4.30-5.90) m/uL Hct 37.7 L (39.0-53.0) % Neutrophils # (1.3-7.7) k/uL Chloride (98-107) mmol/L HDL Cholesterol (40-60) mg/dL Assessment and Plan Assessment: Assessment and Plan 1. Community-acquired pneumonia 2. Chest pain 3. Hypertension 1. As seen on chest x-ray, persistent on repeat. Denies any sick contacts, HCAP Risks. Continue ceftriaxone and azithromycin IV. Tylenol as needed for fever. DuoNeb scheduled for shortness of breath and wheezing. Will follow blood cultures and sputum cultures. Oxygen per nasal cannula to maintain an oxygen saturation greater than 92%. Continue Robitussin twice a day. 6 minute walk test tomorrow. 2. Appears to be pleuritic in nature. Troponin less than 0.012 3, EKG showing normal sinus rhythm, ACS ruled out. Telemetry monitoring. Continue aspirin 81 mg by mouth daily. Lipid panel is within normal limits. 3. BP 111/68. Continue amlodipine 10 mg daily, clonidine 0.2 mg 3 times a day , hydrochlorothiazide 25 mg by mouth daily, lisinopril 20 mg by mouth daily. Monitor vitals, adjust medications as necessary. Patient admitted for treatment of community-acquired pneumonia and chest pain. ACS ruled out. Patient appears to be dyspneic, even with ambulation to the washroom. He is pending clinical improvement. Likely DC in 1-2 days.
[2018-07-05 11:30] VITALS: BMI 33.8
[2018-07-05] MEDS: AZITHROMYCIN 500 MG TAB PO SCH (13:42)
[2018-07-05] MEDS: BENZONATATE 100 MG CAP PO PRN (21:15)
[2018-07-05] MEDS: LURASIDONE 40 MG TAB PO SCH (21:16)
[2018-07-05] MEDS: PRAMIPEXOLE 1 MG TAB PO SCH (21:16)
[2018-07-05] MEDS: lamoTRIgine 100 MG TAB PO SCH (21:17)
[2018-07-06] MEDS: IPRATROPIUM-ALBUTEROL 3 ML NEB INHALATION SCH ×4 (00:01→11:34)
[2018-07-06] MEDS: HYDROcodone/APAP 5-325MG 1 EACH TAB PO PRN ×4 (01:56→13:33)
[2018-07-06] MEDS: MORPHINE SULFATE 2 MG/ML SYRINGE IV PRN ×2 (03:51→08:19)
[2018-07-06] MEDS: BENZONATATE 100 MG CAP PO PRN (05:57)
[2018-07-06] MEDS: SODIUM CHLORIDE 0.9% 1,000 ML IV SCH (06:18)
[2018-07-06 07:25] VITALS: BP 122/71; RESP 17; TEMP 98.1
[2018-07-06] MEDS: LISINOPRIL 20 MG TAB PO SCH (08:16)
[2018-07-06] MEDS: guaiFENesin 600 MG TABLET.ER PO SCH (08:16)
[2018-07-06] MEDS: ASPIRIN 81 MG PO SCH (08:16)
[2018-07-06] MEDS: GABAPENTIN 400 MG CAP PO SCH (08:16)
[2018-07-06] MEDS: amLODIPine 10 MG TAB PO SCH (08:16)
[2018-07-06] MEDS: cloNIDine HCL 0.2 MG TAB PO SCH (08:17)
[2018-07-06] MEDS: HYDROCHLOROTHIAZIDE 25 MG TAB PO SCH (08:18)
[2018-07-06] MEDS: PRAMIPEXOLE 0.125 MG TAB PO SCH (08:19)
--- NOTE | 2018-07-06 09:27 | P.DS ---
Providers Date of admission: 07/04/18 13:26 Expected date of discharge: 07/06/18 Attending physician: Keagan Smith MD Primary care physician: Viktoria Richardson MD Hospital Course: 48 are old male with PMH of hypertension presents the ED for chest pain, cough. Patient reports that all symptoms began about one week ago. Patient reports waking up in the morning last week with excruciating chest pain. Patient reported that the chest pain was constant, midline and 10 out of 10 in severity. Patient described the pain as knifelike and stabbing in nature, radiating to the back. Pain was aggravated with movement and with deep inspiration. There were no alleviating factors. There are no prior incidents. Along with his chest pain, patient reported associated shortness of breath and cough. His shortness of breath is exertional. Patient reports usually being able to walk greater than 10 blocks daily, currently unable to walk less than one block. His cough is productive of yellow/green mucus. He denies any sick contacts. He endorses subjective fever and chills yesterday. He endorses 3 incidents of nonbilious nonbloody vomiting yesterday. He denies any headaches , lower extremity edema, palpitations, changes in urination or bowel habits. He does endorse a decreased appetite. In the ED, patient was noted to have a mild leukocytosis of 10.7. Troponin is less than 0.012, EKG showing normal sinus rhythm. Chest x-ray showing left lower lobe infiltrate. Patient is admitted for pneumonia. Patient also admitted for chest pain, rule out acute coronary syndrome. With regard to his community acquired pneumonia, patient was started on ceftriaxone and azithromycin IV. He was given Tylenol as needed for fever. He was given DuoNeb scheduled for shortness of breath and wheezing. Blood cultures are negative at 24 hours at the time of discharge. Was given oxygen per nasal cannula to maintain oxygen saturation greater than 92%. Robitussin was added for his cough. With regard to his chest pain, plan was to rule out ACS. Troponin was less than 0.0123 with EKG showing normal sinus rhythm. Lipid panel was obtained and was within normal limits. Otherwise, his home medications were resumed. Patient was seen and examined prior to discharge. No acute events overnight. Patient reports improvement in his breathing, continues to complain a cough productive of sputum. He does complain of some chest pain, only with cough. Reports that she has been ambulating in his room. He is saturating greater than 92% on room air. General: [non toxic], [appears fatigued and tired], [appears at stated age] Derm: [warm], [dry] Head: [atraumatic], [normocephalic], [symmetric] Eyes: [EOMI], [no lid lag], [anicteric sclera] Mouth: [no lip lesion], [mucus membranes moist] Cardiovascular: [S1S2 reg], [no murmur], [positive DP pulse bilateral] Lungs: [Decreased breath sounds] , [no accessory muscle use] Abdominal: [soft], [ nontender to palpation], [no guarding], [no appreciable organomegaly] Ext: [no gross muscle atrophy], [no edema], [no contractures] Neuro: [no focal neuro deficits] Psych: [Alert], [oriented], [appropriate affect] Assessment and Plan 1. Community-acquired pneumonia 2. Chest pain 3. Hypertension 1. As seen on chest x-ray, persistent on repeat. Denies any sick contacts, HCAP Risks. Initially on ceftriaxone and azithromycin IV, will discharged on levofloxacin to complete a total of 7 days. Tylenol as needed for fever. DuoNeb scheduled for shortness of breath and wheezing. Blood cultures prelim negative at 24 hours. Oxygen per nasal cannula to maintain an oxygen saturation greater than 92%. Continue Robitussin twice a day. 6 minute walk test today. 2. Appears to be pleuritic in nature. Troponin less than 0.012 3, EKG showing normal sinus rhythm, ACS ruled out. Telemetry monitoring. Continue aspirin 81 mg by mouth daily. Lipid panel is within normal limits. 3. BP 122/71. Continue amlodipine 10 mg daily, clonidine 0.2 mg 3 times a day , hydrochlorothiazide 25 mg by mouth daily, lisinopril 20 mg by mouth daily. Monitor vitals, adjust medications as necessary. Patient admitted for treatment of community-acquired pneumonia and chest pain. ACS ruled out. He is saturating in the mid to high 90s on room air. He has been ambulating freely. Will discharge home today pending 6 minute walk test with close follow-up with PCP. Plans to obtain a chest x-ray in 7 days and complete course of antibiotics. Pertinent Studies: Chest x-ray Patient Condition at Discharge: Stable Plan - Discharge Summary Discharge Rx Participant: No New Discharge Prescriptions: New Albuterol Inhaler [Ventolin Hfa Inhaler] 1 - 2 puff INHALATION RT-Q6H PRN #1 inhaler PRN Reason: Shortness Of Breath Or Wheezing Benzonatate [Tessalon Perles] 200 mg PO TID PRN #30 cap PRN Reason: Cough guaiFENesin [Mucinex] 1,200 mg PO Q12HR #14 tablet.er HYDROcodone/APAP 5-325MG [[place] 5-325] 1 each PO Q4HR PRN #18 tab PRN Reason: Moderate Pain Levofloxacin [Levaquin] 750 mg PO DAILY 4 Days #4 tab Continue Lisinopril [Zestril] 20 mg PO DAILY 30 Days #30 tab amLODIPine [Norvasc] 10 mg PO DAILY 30 Days #30 tab Hydrochlorothiazide [Hydrodiuril] 25 mg PO DAILY tab Pramipexole [Mirapex] 1 mg PO HS 30 Days #30 tab Pramipexole [Mirapex] 0.125 mg PO BID 30 Days #60 tab Gabapentin [Neurontin] 400 mg PO TID 30 Days #90 cap lamoTRIgine [LaMICtal] 200 mg PO HS 30 Days #30 tablet Lurasidone [Latuda] 40 mg PO HS 30 Days #30 tab Aspirin EC [Ecotrin Low Dose] 81 mg PO DAILY cloNIDine HCL [Catapres] 0.2 mg PO TID Discharge Medication List Lisinopril [Zestril] 20 mg PO DAILY 30 Days #30 tab 04/11/18 [Rx] amLODIPine [Norvasc] 10 mg PO DAILY 30 Days #30 tab 04/11/18 [Rx] Gabapentin [Neurontin] 400 mg PO TID 30 Days #90 cap 05/27/18 [Rx] Hydrochlorothiazide [Hydrodiuril] 25 mg PO DAILY tab 05/27/18 [Rx] Lurasidone [Latuda] 40 mg PO HS 30 Days #30 tab 05/27/18 [Rx] Pramipexole [Mirapex] 0.125 mg PO BID 30 Days #60 tab 05/27/18 [Rx] Pramipexole [Mirapex] 1 mg PO HS 30 Days #30 tab 05/27/18 [Rx] lamoTRIgine [LaMICtal] 200 mg PO HS 30 Days #30 tablet 05/27/18 [Rx] Aspirin EC [Ecotrin Low Dose] 81 mg PO DAILY 07/04/18 [History] cloNIDine HCL [Catapres] 0.2 mg PO TID 07/04/18 [History] Albuterol Inhaler [Ventolin Hfa Inhaler] 1 - 2 puff INHALATION RT-Q6H PRN #1 inhaler 07/06/18 [Rx] Benzonatate [Tessalon Perles] 200 mg PO TID PRN #30 cap 07/06/18 [Rx] HYDROcodone/APAP 5-325MG [[place] 5-325] 1 each PO Q4HR PRN #18 tab 07/06/18 [Rx] Levofloxacin [Levaquin] 750 mg PO DAILY 4 Days #4 tab 07/06/18 [Rx] guaiFENesin [Mucinex] 1,200 mg PO Q12HR #14 tablet.er 07/06/18 [Rx] Follow up Appointment(s)/Referral(s): Viktoria Richardson MD [Primary Care Provider] - 1-2 days Ambulatory/Diagnostic Orders: XR chest 2V [RAD.AMB] Time Frame: 3 Days, Location: None Selected Activity/Diet/Wound Care/Special Instructions: Diet: Low-salt diet, heart healthy Please take all medications as advised. Please follow-up with your primary care provider within 1-2 days of discharge. Please obtain a chest x-ray within 2 days of discharge. Please follow-up the results with your primary care provider. Discharge Disposition: HOME SELF-CARE
[2018-07-06 10:06] VITALS: PULSE 82
[2018-07-06] MEDS: AZITHROMYCIN 500 MG TAB PO SCH (12:57)
== END 2018-07-06 13:45 | disposition home or self-care (01) ==
LOC: EC 10:13 → 3SCARD 13:26 → 3NMEDONC 14:30
PROVIDERS: ADMIT Family Medicine; ATTEND Family Medicine
DX: J18.1 Lobar pneumonia, unspecified organism (principal); R07.89 Other chest pain; I10 Essential (primary) hypertension; I48.91 Unspecified atrial fibrillation; F17.210 Nicotine dependence, cigarettes, uncomplicated; E78.5 Hyperlipidemia, unspecified; M54.41 Lumbago with sciatica, right side; M54.42 Lumbago with sciatica, left side; G89.29 Other chronic pain; G62.9 Polyneuropathy, unspecified; G43.909 Migraine, unspecified, not intractable, without status migrainosus; F31.9 Bipolar disorder, unspecified; F20.9 Schizophrenia, unspecified; E66.9 Obesity, unspecified; Z68.32 Body mass index [BMI] 32.0-32.9, adult; Z79.82 Long term (current) use of aspirin; Z79.899 Other long term (current) drug therapy; Z88.6 Allergy status to analgesic agent; Z88.8 Allergy status to other drugs, medicaments and biological substances; Z87.442 Personal history of urinary calculi; Z86.14 Personal history of Methicillin resistant Staphylococcus aureus infection; Z82.49 Family history of ischemic heart disease and other diseases of the circulatory system
CPT/HCPCS: 96376 ×3; 96361 ×2; 96366; 96367; 96375 ×2; 96365; 99285; 36415; 94640 ×6; 94760; 93005 ×2; 85379; 83880; 80061; 80053; 83735; 84484; 85025 ×2; 85610; 85730; 87040; 87070; 87205; 71046 ×2; G0378 ×4; J0456; J0696 ×3; J3010; J1885; J2270 ×3

== ENCOUNTER 2018-07-09 08:21 | Emergency (ER) | payer OTHER ==
[2018-07-09 08:27] VITALS: BP 128/75; RESP 18; TEMP 97.7
[2018-07-09] MEDS ORDERED: SODIUM CHLORIDE 0.9% 1,000 ML IV ONE (08:34)
[2018-07-09] MEDS ORDERED: ALBUTEROL NEBULIZED 2.5 MG/3 ML INHALATION STA (08:35)
[2018-07-09] MEDS ORDERED: IPRATROPIUM-ALBUTEROL 3 ML NEB INHALATION STA (08:35)
[2018-07-09] MEDS ORDERED: DEXAMETHASONE SOD PHOSPHATE 10 MG/ML 1 ML VIAL IV STA (08:35)
--- NOTE | 2018-07-09 08:37 | ED ---
General Adult HPI - General Chief complaint: Shortness of Breath Stated complaint: Sob/cough Time Seen by Provider: 07/09/18 08:29 Source: patient, RN notes reviewed, old records reviewed Mode of arrival: ambulatory Limitations: no limitations - History of Present Illness Initial comments: 48-year-old male presented for evaluation of cough and dyspnea. Patient was admitted to this institution approximately one week ago with pneumonia. He is a current smoker. He states that his symptoms had initially improved at the time of discharge however over the past 3 days he's had worsening cough which is nonproductive. He is also had some nausea and diarrhea. He was prescribed 4 days of antibiotic as well as albuterol. He states these have failed to improve his symptoms. Denies significant or radiating chest pain. He does have some mild pain with cough. No abdominal pain. Denies fever. Denies URI symptoms. - Related Data Home Medications Medication Instructions Recorded Confirmed Aspirin EC [Ecotrin Low Dose] 81 mg PO DAILY 07/04/18 07/09/18 cloNIDine HCL [Catapres] 0.2 mg PO TID 07/04/18 07/09/18 HYDROcodone/APAP 5-325MG [[place] 1 tab PO Q4HR PRN 07/09/18 07/09/18 5-325] Previous Rx's Medication Instructions Recorded Lisinopril [Zestril] 20 mg PO DAILY 30 Days #30 tab 04/11/18 amLODIPine [Norvasc] 10 mg PO DAILY 30 Days #30 tab 04/11/18 Gabapentin [Neurontin] 400 mg PO TID 30 Days #90 cap 05/27/18 Hydrochlorothiazide [Hydrodiuril] 25 mg PO DAILY tab 05/27/18 Lurasidone [Latuda] 40 mg PO HS 30 Days #30 tab 05/27/18 Pramipexole [Mirapex] 0.125 mg PO BID 30 Days #60 tab 05/27/18 Pramipexole [Mirapex] 1 mg PO HS 30 Days #30 tab 05/27/18 lamoTRIgine [LaMICtal] 200 mg PO HS 30 Days #30 tablet 05/27/18 Albuterol Inhaler [Ventolin Hfa 1 - 2 puff INHALATION RT-Q6H PRN 07/06/18 Inhaler] #1 inhaler Benzonatate [Tessalon Perles] 200 mg PO TID PRN #30 cap 07/06/18 Levofloxacin [Levaquin] 750 mg PO DAILY 4 Days #4 tab 07/06/18 guaiFENesin [Mucinex] 1,200 mg PO Q12HR #14 tablet.er 07/06/18 Levofloxacin [Levaquin] 500 mg PO DAILY 3 Days #3 tab 07/09/18 predniSONE 50 mg PO DAILY #5 tab 07/09/18 Allergies Allergy/AdvReac Type Severity Reaction Status Date / Time ibuprofen [From Motrin] AdvReac Nausea & Verified 07/09/18 08:42 Vomiting simvastatin [From Zocor] AdvReac Dizziness Verified 07/09/18 08:42 Review of Systems ROS Statement: Those systems with pertinent positive or pertinent negative responses have been documented in the HPI. ROS Other: All systems not noted in ROS Statement are negative. Past Medical History Past Medical History: Atrial Fibrillation, Hyperlipidemia, Hypertension, Pneumonia Additional Past Medical History / Comment(s): Pt recently admitted on 03/13/18 with costrochondritis with abnormal stress echo/ normal cardiac cath. Other hx : Chronic pain, chronic low back pain with bilateral sciatica, neuropathy bilateral hands/feet, migraines, partial SBO, kidney stones. History of Any Multi-Drug Resistant Organisms: MRSA Date of last positivie culture/infection: 04/10/18 MDRO Source:: TOE Past Surgical History: Heart Catheterization, Orthopedic Surgery Additional Past Surgical History / Comment(s): 03/14/18 Cardiac cath-normal coronaries, L shoulder rotator cuff repair x2, cervical injection. Past Anesthesia/Blood Transfusion Reactions: No Reported Reaction Past Psychological History: Bipolar, Depression, Schizophrenia Smoking Status: Current every day smoker Past Alcohol Use History: None Reported Past Drug Use History: Marijuana - Past Family History Father Family Medical History: Myocardial Infarction ([place]) Additional Family Medical History / Comment(s): mi at age 35, still living Mother Family Medical History: Myocardial Infarction ([place]) Additional Family Medical History / Comment(s): Mother has had at least one [place]- pt unsure at what age. He has not had much contact with his mother since he was 17 yrs old. General Exam Limitations: no limitations General appearance: alert, in no apparent distress Head exam: Present: atraumatic, normocephalic Eye exam: Present: normal appearance, PERRL ENT exam: Present: normal exam Neck exam: Present: normal inspection Respiratory exam: Present: wheezes, rhonchi. Absent: respiratory distress Cardiovascular Exam: Present: regular rate, normal rhythm GI/Abdominal exam: Present: soft. Absent: distended, tenderness Extremities exam: Present: normal inspection, normal capillary refill. Absent: pedal edema, calf tenderness Neurological exam: Present: alert, oriented X3. Absent: motor sensory deficit Psychiatric exam: Present: normal affect, normal mood Skin exam: Present: warm, dry, intact. Absent: cyanosis, diaphoretic Course Vital Signs 07/09/18 07/09/18 07/09/18 08:24 09:05 09:10 Temperature 97.7 F Pulse Rate 96 96 92 Respiratory 18 Rate Blood Pressure 128/75 O2 Sat by Pulse 98 Oximetry EKG Findings - EKG Comments: EKG Findings:: EKG: Normal sinus, rate of 65, NM interval 164, QRS duration 92, QTC 459, no ST segment changes Medical Decision Making - Medical Decision Making 48-year-old male presenting with persistent cough and recent diagnosis of pneumonia. Patient's current smoker, has good air entry with wheezing and rhonchi bilaterally. He is not requiring any supplemental oxygen. Chest x-ray shows improved aeration, hyperinflation consistent with COPD. Normal CBC, no leukocytosis. Normal CMP, negative troponin, negative BNP, negative influenza. Patient given a beetle, Atrovent, steroids, IV fluids, reevaluation feeling somewhat better. We will be given a short course of steroids and antibiotics. Will return with worsening or changing symptoms. Please follow up with primary care physician. - Lab Data Result diagrams: 07/09/18 09:07 07/09/18 09:07 Lab Results 07/09/18 07/09/18 07/09/18 Range/Units 09:07 09:07 09:07 WBC 8.5 (3.8-10.6) k/uL RBC 4.65 (4.30-5.90) m/uL Hgb 14.7 (13.0-17.5) gm/dL Hct 41.2 (39.0-53.0) % MCV 88.7 (80.0-100.0) fL MCH 31.7 (25.0-35.0) pg MCHC 35.7 (31.0-37.0) g/dL RDW 13.8 (11.5-15.5) % Plt Count 274 (150-450) k/uL Neutrophils % 72 % Lymphocytes % 17 % Monocytes % 7 % Eosinophils % 4 % Basophils % 1 % Neutrophils # 6.1 (1.3-7.7) k/uL Lymphocytes # 1.4 (1.0-4.8) k/uL Monocytes # 0.6 (0-1.0) k/uL Eosinophils # 0.3 (0-0.7) k/uL Basophils # 0.0 (0-0.2) k/uL PT (9.0-12.0) sec INR (<1.2) APTT (22.0-30.0) sec Sodium 140 (137-145) mmol/L Potassium 3.8 (3.5-5.1) mmol/L Chloride 110 H (98-107) mmol/L Carbon Dioxide 21 L (22-30) mmol/L Anion Gap 9 mmol/L BUN 14 (9-20) mg/dL Creatinine 0.84 (0.66-1.25) mg/dL Est GFR (CKD-EPI)AfAm >90 (>60 ml/min/1.73 sqM) Est GFR (CKD-EPI)NonAf >90 (>60 ml/min/1.73 sqM) Glucose 136 H (74-99) mg/dL Plasma Lactic Acid George (0.7-2.0) mmol/L Calcium 9.3 (8.4-10.2) mg/dL Magnesium 1.8 (1.6-2.3) mg/dL Total Bilirubin 0.5 (0.2-1.3) mg/dL AST 25 (17-59) U/L ALT 35 (21-72) U/L Alkaline Phosphatase 84 (38-126) U/L Troponin I (0.000-0.034) ng/mL NT-Pro-B Natriuret Pep 33 pg/mL Total Protein 6.8 (6.3-8.2) g/dL Albumin 3.7 (3.5-5.0) g/dL Influenza Type A RNA (Not Detectd) Influenza Type B (PCR) (Not Detectd) 07/09/18 07/09/18 07/09/18 Range/Units 09:07 09:07 09:07 WBC (3.8-10.6) k/uL RBC (4.30-5.90) m/uL Hgb (13.0-17.5) gm/dL Hct (39.0-53.0) % MCV (80.0-100.0) fL MCH (25.0-35.0) pg MCHC (31.0-37.0) g/dL RDW (11.5-15.5) % Plt Count (150-450) k/uL Neutrophils % % Lymphocytes % % Monocytes % % Eosinophils % % Basophils % % Neutrophils # (1.3-7.7) k/uL Lymphocytes # (1.0-4.8) k/uL Monocytes # (0-1.0) k/uL Eosinophils # (0-0.7) k/uL Basophils # (0-0.2) k/uL PT 10.4 (9.0-12.0) sec INR 1.0 (<1.2) APTT 25.4 (22.0-30.0) sec Sodium (137-145) mmol/L Potassium (3.5-5.1) mmol/L Chloride (98-107) mmol/L Carbon Dioxide (22-30) mmol/L Anion Gap mmol/L BUN (9-20) mg/dL Creatinine (0.66-1.25) mg/dL Est GFR (CKD-EPI)AfAm (>60 ml/min/1.73 sqM) Est GFR (CKD-EPI)NonAf (>60 ml/min/1.73 sqM) Glucose (74-99) mg/dL Plasma Lactic Acid George (0.7-2.0) mmol/L Calcium (8.4-10.2) mg/dL Magnesium (1.6-2.3) mg/dL Total Bilirubin (0.2-1.3) mg/dL AST (17-59) U/L ALT (21-72) U/L Alkaline Phosphatase (38-126) U/L Troponin I <0.012 (0.000-0.034) ng/mL NT-Pro-B Natriuret Pep pg/mL Total Protein (6.3-8.2) g/dL Albumin (3.5-5.0) g/dL Influenza Type A RNA Not Detected (Not Detectd) Influenza Type B (PCR) Not Detected (Not Detectd) 07/09/18 Range/Units 09:07 WBC (3.8-10.6) k/uL RBC (4.30-5.90) m/uL Hgb (13.0-17.5) gm/dL Hct (39.0-53.0) % MCV (80.0-100.0) fL MCH (25.0-35.0) pg MCHC (31.0-37.0) g/dL RDW (11.5-15.5) % Plt Count (150-450) k/uL Neutrophils % % Lymphocytes % % Monocytes % % Eosinophils % % Basophils % % Neutrophils # (1.3-7.7) k/uL Lymphocytes # (1.0-4.8) k/uL Monocytes # (0-1.0) k/uL Eosinophils # (0-0.7) k/uL Basophils # (0-0.2) k/uL PT (9.0-12.0) sec INR (<1.2) APTT (22.0-30.0) sec Sodium (137-145) mmol/L Potassium (3.5-5.1) mmol/L Chloride (98-107) mmol/L Carbon Dioxide (22-30) mmol/L Anion Gap mmol/L BUN (9-20) mg/dL Creatinine (0.66-1.25) mg/dL Est GFR (CKD-EPI)AfAm (>60 ml/min/1.73 sqM) Est GFR (CKD-EPI)NonAf (>60 ml/min/1.73 sqM) Glucose (74-99) mg/dL Plasma Lactic Acid George 2.7 H* (0.7-2.0) mmol/L Calcium (8.4-10.2) mg/dL Magnesium (1.6-2.3) mg/dL Total Bilirubin (0.2-1.3) mg/dL AST (17-59) U/L ALT (21-72) U/L Alkaline Phosphatase (38-126) U/L Troponin I (0.000-0.034) ng/mL NT-Pro-B Natriuret Pep pg/mL Total Protein (6.3-8.2) g/dL Albumin (3.5-5.0) g/dL Influenza Type A RNA (Not Detectd) Influenza Type B (PCR) (Not Detectd) Disposition Clinical Impression: Acute exacerbation of chronic obstructive airways disease, Community acquired pneumonia, Left lower lobe pneumonia Disposition: HOME SELF-CARE Condition: Good Instructions (If sedation given, give patient instructions): COPD (Chronic Obstructive Pulmonary Disease) (ED) Prescriptions: Levofloxacin [Levaquin] 500 mg PO DAILY 3 Days #3 tab predniSONE 50 mg PO DAILY #5 tab Is patient prescribed a controlled substance at d/c from ED?: No Referrals: Viktoria Richardson MD [Primary Care Provider] - 1-2 days Chanel Jimenez MD [STAFF PHYSICIAN] - 1-2 days Time of Disposition: 11:17
[2018-07-09 09:11] VITALS: PULSE 92
[2018-07-09] MEDS ORDERED: MORPHINE SULFATE 4 MG/ML SYRINGE IVP STA (09:21)
[2018-07-09 09:37] LABS: Basophils % (A) 1 %; Eosinophils # (A) 0.3 k/uL (0-0.7); Eosinophils % (A) 4 %; HCT 41.2 % (39.0-53.0); HGB 14.7 gm/dL (13.0-17.5); Lymphocytes # (A) 1.4 k/uL (1.0-4.8); Lymphocytes % (A) 17 %; MCH 31.7 pg (25.0-35.0); MCHC 35.7 g/dL (31.0-37.0); MCV 88.7 fL (80.0-100.0); Monocytes # (A) 0.6 k/uL (0-1.0); Monocytes % (A) 7 %; Neutrophils # (A) 6.1 k/uL (1.3-7.7); Neutrophils % (A) 72 %; Platelet Count 274 k/uL (150-450); RBC 4.65 m/uL (4.30-5.90); RDW 13.8 % (11.5-15.5); WBC 8.5 k/uL (3.8-10.6)
--- NOTE | 2018-07-09 09:37 | XR ---
EXAMINATION TYPE: XR chest 2V DATE OF EXAM: 07/09/2018 COMPARISON: Prior chest x-ray 07/05/2018 HISTORY: Difficulty breathing TECHNIQUE: Frontal and lateral views of the chest are obtained. FINDINGS: Some strand-like densities within the left mid and lower lung show some improved aeration as compared to prior exam. No pneumothorax or pleural effusion. Cardiomediastinal silhouette, pulmona ry vascularity and louise are stable. The aorta is dense. Bone mineralization is stable, postop change noted to the distal left clavicle. Prominent lung volumes suggest underlying COPD. IMPRESSION: There is some improvement in aeration.
[2018-07-09 09:40] LABS: ALT 35 U/L (21-72); AST 25 U/L (17-59); Albumin 3.7 g/dL (3.5-5.0); Alkaline Phosphatase 84 U/L (38-126); Anion Gap 9 mmol/L; Blood Urea Nitrogen 14 mg/dL (9-20); Calcium 9.3 mg/dL (8.4-10.2); Carbon Dioxide 21 mmol/L (22-30); Chloride 110 mmol/L (98-107); Glucose 136 mg/dL (74-99); Magnesium 1.8 mg/dL (1.6-2.3); Partial Thromboplastin Time 25.4 sec (22.0-30.0); Potassium 3.8 mmol/L (3.5-5.1); Prothrombin Time 10.4 sec (9.0-12.0); Sodium 140 mmol/L (137-145); Total Bilirubin 0.5 mg/dL (0.2-1.3); Total Protein 6.8 g/dL (6.3-8.2)
== END 2018-07-09 11:37 | disposition home or self-care (01) ==
LOC: EC 08:21
DX: J44.0 Chronic obstructive pulmonary disease with (acute) lower respiratory infection (principal); J44.1 Chronic obstructive pulmonary disease with (acute) exacerbation; J18.1 Lobar pneumonia, unspecified organism; I10 Essential (primary) hypertension; F17.200 Nicotine dependence, unspecified, uncomplicated; Z79.82 Long term (current) use of aspirin; Z79.899 Other long term (current) drug therapy; Z88.6 Allergy status to analgesic agent; Z88.8 Allergy status to other drugs, medicaments and biological substances; Z95.1 Presence of aortocoronary bypass graft
CPT/HCPCS: 36415; 71046; 80053; 83605; 83735; 83880; 84484; 85025; 85610; 85730; 87040; 87502; 94640; 96361; 96374; 96375; 99285

== ENCOUNTER 2018-07-17 12:05 | Emergency (ER) | payer OTHER ==
[2018-07-17] MEDS ORDERED: IPRATROPIUM-ALBUTEROL 3 ML NEB INHALATION STA (12:34)
[2018-07-17] MEDS ORDERED: SODIUM CHLORIDE 0.9% 1,000 ML IV STA (12:35)
[2018-07-17] MEDS ORDERED: methylPREDNISolone SOD SUCCI 125 MG/2 ML VIAL IV STA (12:35)
--- NOTE | 2018-07-17 12:38 | ED ---
URI HPI - General Chief Complaint: Upper Respiratory Infection Stated Complaint: cough, COPD Time Seen by Provider: 07/17/18 12:14 Source: patient, RN notes reviewed, old records reviewed Mode of arrival: ambulatory Limitations: no limitations - History of Present Illness Initial Comments: Patient is a 48-year-old male well-known to emergency department for COPD and chest pain presents today with acute difficulty breathing. Patient reports that he was treated for pneumonia with Levaquin one week ago. Patient reports that he's had worsening cough and chest pain. He reports he's had low-grade fevers and some diarrhea. Patient denies any nausea or vomiting. - Related Data Home Medications Medication Instructions Recorded Confirmed Aspirin EC [Ecotrin Low Dose] 81 mg PO DAILY 07/04/18 07/17/18 cloNIDine HCL [Catapres] 0.2 mg PO TID 07/04/18 07/17/18 Pramipexole [Mirapex] 0.125 mg PO AC-BID 07/17/18 07/17/18 Previous Rx's Medication Instructions Recorded Lisinopril [Zestril] 20 mg PO DAILY 30 Days #30 tab 04/11/18 amLODIPine [Norvasc] 10 mg PO DAILY 30 Days #30 tab 04/11/18 Gabapentin [Neurontin] 400 mg PO TID 30 Days #90 cap 05/27/18 Hydrochlorothiazide [Hydrodiuril] 25 mg PO DAILY tab 05/27/18 Lurasidone [Latuda] 40 mg PO HS 30 Days #30 tab 05/27/18 Pramipexole [Mirapex] 1 mg PO HS 30 Days #30 tab 05/27/18 lamoTRIgine [LaMICtal] 200 mg PO HS 30 Days #30 tablet 05/27/18 Albuterol Inhaler [Ventolin Hfa 1 - 2 puff INHALATION RT-Q6H PRN 07/06/18 Inhaler] #1 inhaler Albuterol Inhaler [Ventolin Hfa 1 - 2 puff INHALATION RT-Q6H PRN 07/17/18 Inhaler] #1 inhaler Promethazine/Dextromethorphan 5 ml PO TID #120 ml 07/17/18 [Phenergan DM Syrup] predniSONE 50 mg PO DAILY #5 tablet 07/17/18 Allergies Allergy/AdvReac Type Severity Reaction Status Date / Time ibuprofen [From Motrin] AdvReac Nausea & Verified 07/17/18 12:24 Vomiting simvastatin [From Zocor] AdvReac Dizziness Verified 07/17/18 12:24 Review of Systems ROS Statement: Those systems with pertinent positive or pertinent negative responses have been documented in the HPI. ROS Other: All systems not noted in ROS Statement are negative. Past Medical History Past Medical History: Atrial Fibrillation, Hyperlipidemia, Hypertension, Pneumonia Additional Past Medical History / Comment(s): Pt recently admitted on 03/13/18 with costrochondritis with abnormal stress echo/ normal cardiac cath. Other hx: Chronic pain, chronic low back pain with bilateral sciatica, neuropathy bilateral hands/feet, migraines, partial SBO, kidney stones. History of Any Multi-Drug Resistant Organisms: MRSA Date of last positivie culture/infection: 04/10/18 MDRO Source:: TOE Past Surgical History: Heart Catheterization, Orthopedic Surgery Additional Past Surgical History / Comment(s): 03/14/18 Cardiac cath-normal coronaries, L shoulder rotator cuff repair x2, cervical injection. Past Anesthesia/Blood Transfusion Reactions: No Reported Reaction Past Psychological History: Bipolar, Depression, Schizophrenia Smoking Status: Current every day smoker Past Alcohol Use History: None Reported Past Drug Use History: Marijuana - Past Family History Father Family Medical History: Myocardial Infarction ([place]) Additional Family Medical History / Comment(s): mi at age 35, still living Mother Family Medical History: Myocardial Infarction ([place]) Additional Family Medical History / Comment(s): Mother has had at least one [place]- pt unsure at what age. He has not had much contact with his mother since he was 17 yrs old. General Exam - General Exam Comments Initial Comments: This is a 48-year-old male. Alert and oriented 3. Patient appears in no significant distress. Limitations: no limitations General appearance: alert, in no apparent distress Head exam: Present: atraumatic, normocephalic, normal inspection Eye exam: Present: normal appearance, PERRL, EOMI. Absent: scleral icterus, conjunctival injection, periorbital swelling ENT exam: Present: normal exam, mucous membranes moist Neck exam: Present: normal inspection. Absent: tenderness, meningismus, lymphadenopathy Respiratory exam: Present: normal lung sounds bilaterally, wheezes. Absent: respiratory distress, rales, rhonchi, stridor Cardiovascular Exam: Present: regular rate, normal rhythm, normal heart sounds. Absent: systolic murmur, diastolic murmur, rubs, gallop, clicks GI/Abdominal exam: Present: soft, normal bowel sounds. Absent: distended, tenderness, guarding, rebound, rigid Extremities exam: Present: normal inspection, full ROM, normal capillary refill. Absent: tenderness, pedal edema, joint swelling, calf tenderness Back exam: Present: normal inspection Neurological exam: Present: alert, oriented X3, CN II-XII intact Course Vital Signs 07/17/18 07/17/18 07/17/18 12:08 12:49 13:04 Temperature 98.1 F Pulse Rate 92 92 92 Respiratory 20 Rate Blood Pressure 157/100 O2 Sat by Pulse 95 Oximetry 07/17/18 15:14 Temperature 97.8 F Pulse Rate 78 Respiratory 16 Rate Blood Pressure 148/87 O2 Sat by Pulse 96 Oximetry Medical Decision Making - Medical Decision Making Patient is a 48-year-old male well-known to emergency department for COPD and chest pain presents today with acute difficulty breathing. Patient reports that he was treated for pneumonia with Levaquin one week ago. Pt given IV fluids, solumedrol and breathing treatment. CXR is normal. Labs and ekg are normal. Patient continues to complain of Rib pain from coughing. Drug seeking behaviour noted. Patient given toradol. Patient will be DC with further steriods for COPD and referral to pulmonology. - Lab Data Result diagrams: 07/17/18 12:45 07/17/18 12:45 Lab Results 07/17/18 07/17/18 07/17/18 Range/Units 12:45 12:45 12:45 WBC 7.3 (3.8-10.6) k/uL RBC 5.10 (4.30-5.90) m/uL Hgb 15.5 (13.0-17.5) gm/dL Hct 45.5 (39.0-53.0) % MCV 89.1 (80.0-100.0) fL MCH 30.4 (25.0-35.0) pg MCHC 34.1 (31.0-37.0) g/dL RDW 14.4 (11.5-15.5) % Plt Count 258 (150-450) k/uL Neutrophils % 49 % Lymphocytes % 26 % Monocytes % 16 % Eosinophils % 5 % Basophils % 1 % Neutrophils # 3.6 (1.3-7.7) k/uL Lymphocytes # 1.9 (1.0-4.8) k/uL Monocytes # 1.1 H (0-1.0) k/uL Eosinophils # 0.4 (0-0.7) k/uL Basophils # 0.1 (0-0.2) k/uL PT 9.8 (9.0-12.0) sec INR 0.9 (<1.2) APTT 24.1 (22.0-30.0) sec Sodium 138 (137-145) mmol/L Potassium 4.3 (3.5-5.1) mmol/L Chloride 105 (98-107) mmol/L Carbon Dioxide 23 (22-30) mmol/L Anion Gap 10 mmol/L BUN 17 (9-20) mg/dL Creatinine 0.74 (0.66-1.25) mg/dL Est GFR (CKD-EPI)AfAm >90 (>60 ml/min/1.73 sqM) Est GFR (CKD-EPI)NonAf >90 (>60 ml/min/1.73 sqM) Glucose 88 (74-99) mg/dL Calcium 9.9 (8.4-10.2) mg/dL Total Bilirubin 0.4 (0.2-1.3) mg/dL AST 32 (17-59) U/L ALT 36 (21-72) U/L Alkaline Phosphatase 88 (38-126) U/L Troponin I (0.000-0.034) ng/mL Total Protein 7.1 (6.3-8.2) g/dL Albumin 4.1 (3.5-5.0) g/dL 07/17/18 Range/Units 12:45 WBC (3.8-10.6) k/uL RBC (4.30-5.90) m/uL Hgb (13.0-17.5) gm/dL Hct (39.0-53.0) % MCV (80.0-100.0) fL MCH (25.0-35.0) pg MCHC (31.0-37.0) g/dL RDW (11.5-15.5) % Plt Count (150-450) k/uL Neutrophils % % Lymphocytes % % Monocytes % % Eosinophils % % Basophils % % Neutrophils # (1.3-7.7) k/uL Lymphocytes # (1.0-4.8) k/uL Monocytes # (0-1.0) k/uL Eosinophils # (0-0.7) k/uL Basophils # (0-0.2) k/uL PT (9.0-12.0) sec INR (<1.2) APTT (22.0-30.0) sec Sodium (137-145) mmol/L Potassium (3.5-5.1) mmol/L Chloride (98-107) mmol/L Carbon Dioxide (22-30) mmol/L Anion Gap mmol/L BUN (9-20) mg/dL Creatinine (0.66-1.25) mg/dL Est GFR (CKD-EPI)AfAm (>60 ml/min/1.73 sqM) Est GFR (CKD-EPI)NonAf (>60 ml/min/1.73 sqM) Glucose (74-99) mg/dL Calcium (8.4-10.2) mg/dL Total Bilirubin (0.2-1.3) mg/dL AST (17-59) U/L ALT (21-72) U/L Alkaline Phosphatase (38-126) U/L Troponin I <0.012 (0.000-0.034) ng/mL Total Protein (6.3-8.2) g/dL Albumin (3.5-5.0) g/dL - Radiology Data Radiology results: report reviewed EKG shows normal sinus rhythm normal ECG. Ventricular rate of 87 bpm. SC interval is 172 ms. Care instructions 70 ms. QT QTc is 370/454 ms. Chest x-ray is negative for any acute cardiac home in a process. Disposition Clinical Impression: COPD (chronic obstructive pulmonary disease), Encounter for smoking cessation counseling, Chest wall pain Disposition: HOME SELF-CARE Condition: Good Instructions (If sedation given, give patient instructions): Costochondritis (ED), COPD (Chronic Obstructive Pulmonary Disease) (ED) Additional Instructions: Patient advised to follow-up with primary care provider and pulmonology. Return to the emergency department if any alarming signs or symptoms occur. Prescriptions: Promethazine/Dextromethorphan [Phenergan DM Syrup] 5 ml PO TID #120 ml predniSONE 50 mg PO DAILY #5 tablet Albuterol Inhaler [Ventolin Hfa Inhaler] 1 - 2 puff INHALATION RT-Q6H PRN #1 inhaler PRN Reason: Shortness Of Breath Is patient prescribed a controlled substance at d/c from ED?: No Referrals: Viktoria Richardson MD [Primary Care Provider] - 1-2 days Time of Disposition: 14:49
[2018-07-17 13:08] LABS: INR 0.9 (<1.2); Partial Thromboplastin Time 24.1 sec (22.0-30.0); Prothrombin Time 9.8 sec (9.0-12.0)
[2018-07-17 13:09] LABS: ALT 36 U/L (21-72); AST 32 U/L (17-59); Albumin 4.1 g/dL (3.5-5.0); Alkaline Phosphatase 88 U/L (38-126); Anion Gap 10 mmol/L; Blood Urea Nitrogen 17 mg/dL (9-20); Calcium 9.9 mg/dL (8.4-10.2); Carbon Dioxide 23 mmol/L (22-30); Chloride 105 mmol/L (98-107); Glucose 88 mg/dL (74-99); Potassium 4.3 mmol/L (3.5-5.1); Sodium 138 mmol/L (137-145); Total Bilirubin 0.4 mg/dL (0.2-1.3); Total Protein 7.1 g/dL (6.3-8.2)
[2018-07-17 13:11] LABS: Basophils # (A) 0.1 k/uL (0-0.2); Basophils % (A) 1 %; Eosinophils # (A) 0.4 k/uL (0-0.7); Eosinophils % (A) 5 %; HCT 45.5 % (39.0-53.0); HGB 15.5 gm/dL (13.0-17.5); Lymphocytes # (A) 1.9 k/uL (1.0-4.8); Lymphocytes % (A) 26 %; MCH 30.4 pg (25.0-35.0); MCHC 34.1 g/dL (31.0-37.0); MCV 89.1 fL (80.0-100.0); Mean Platelet Volume 7.2; Monocytes # (A) 1.1 k/uL (0-1.0); Monocytes % (A) 16 %; Neutrophils # (A) 3.6 k/uL (1.3-7.7); Neutrophils % (A) 49 %; Platelet Count 258 k/uL (150-450); RDW 14.4 % (11.5-15.5); WBC 7.3 k/uL (3.8-10.6)
--- NOTE | 2018-07-17 13:32 | XR ---
EXAMINATION TYPE: XR chest 2V DATE OF EXAM: 07/17/2018 COMPARISON: Prior chest x-ray 07/09/2018 HISTORY: Difficulty breathing, cough TECHNIQUE: Frontal and lateral views of the chest are obtained. FINDINGS: There is no focal air space opacity, pleural effusion, or pneumothorax seen. Abnormal dens ities within the lungs have resolved. The cardiac silhouette size is within normal limits. The oss eous structures are intact. IMPRESSION: No acute cardiopulmonary process.
[2018-07-17] MEDS ORDERED: PROMETHAZ-COD 6.25-10 MG/5 ML 5 ML CUP PO STA (13:43)
[2018-07-17] MEDS ORDERED: ASPIRIN 81 MG PO STA (13:43)
[2018-07-17] MEDS ORDERED: KETOROLAC 30 MG/ML 1 ML VIAL IVP STA (14:48)
[2018-07-17 15:15] VITALS: BP 148/87; PULSE 78; RESP 16; TEMP 97.8
--- NOTE | 2018-07-18 06:05 | CDI ---
Documentation Clarification OP Dear VEE Doe/ Stefan Thomas MD Please do addendum to ED report which provides total time spent on smoking cessation counselling. Thank you, Gela Merritt [place] [employer] If you have any questions, please contact Manager Product Support at [phone] [facility]
== END 2018-07-17 15:14 | disposition home or self-care (01) ==
LOC: EC 12:05
DX: J44.9 Chronic obstructive pulmonary disease, unspecified (principal); R07.89 Other chest pain; I10 Essential (primary) hypertension; F17.200 Nicotine dependence, unspecified, uncomplicated; Z71.6 Tobacco abuse counseling; Z87.01 Personal history of pneumonia (recurrent); Z87.442 Personal history of urinary calculi; Z87.19 Personal history of other diseases of the digestive system; Z86.14 Personal history of Methicillin resistant Staphylococcus aureus infection; Z98.890 Other specified postprocedural states; Z79.82 Long term (current) use of aspirin; Z79.899 Other long term (current) drug therapy; Z88.6 Allergy status to analgesic agent; Z88.8 Allergy status to other drugs, medicaments and biological substances
CPT/HCPCS: 99284; 96374; 96375; 96361 ×2; 99407; 36415; 94640; 93005; 80053; 84484; 85025; 85610; 85730; 71046; J2930; J1885

== ENCOUNTER 2018-07-24 13:50 | Emergency (ER) | payer OTHER ==
[2018-07-24 13:53] VITALS: RESP 16; TEMP 98.5
--- NOTE | 2018-07-24 14:08 | ED ---
General Adult HPI - General Chief complaint: Chest Pain Stated complaint: Chest pain Time Seen by Provider: 07/24/18 14:00 Source: patient, RN notes reviewed Mode of arrival: ambulatory Limitations: no limitations - History of Present Illness Initial comments: 48-year-old male with a past medical history of hyperlipidemia, hypertension, atrial fibrillation presents to the emergency department for a chief complaints of chest pain. Patient states this is in the middle of his chest. Patient states this has been ongoing for over a month and has not changed in consistency. Patient was diagnosed with pneumonia on June 06 and treated here inpatient. Patient has presented twice since that time for similar symptoms. Patient states he is still coughing. He states this pain is worse when taking a deep breath which it has been since it began. Patient recently had a an abnormal stress echo with a normal cardiac catheter about 5 months ago.Patient has no other complaints at this time including shortness of breath, chest pain, abdominal pain, nausea or vomiting, headache, or visual changes. - Related Data Home Medications Medication Instructions Recorded Confirmed Aspirin EC [Ecotrin Low Dose] 81 mg PO DAILY 07/04/18 07/24/18 cloNIDine HCL [Catapres] 0.2 mg PO TID 07/04/18 07/24/18 Pramipexole [Mirapex] 0.125 mg PO AC-BID 07/17/18 07/24/18 Previous Rx's Medication Instructions Recorded Lisinopril [Zestril] 20 mg PO DAILY 30 Days #30 tab 04/11/18 amLODIPine [Norvasc] 10 mg PO DAILY 30 Days #30 tab 04/11/18 Gabapentin [Neurontin] 400 mg PO TID 30 Days #90 cap 05/27/18 Hydrochlorothiazide [Hydrodiuril] 25 mg PO DAILY tab 05/27/18 Lurasidone [Latuda] 40 mg PO HS 30 Days #30 tab 05/27/18 Pramipexole [Mirapex] 1 mg PO HS 30 Days #30 tab 05/27/18 lamoTRIgine [LaMICtal] 200 mg PO HS 30 Days #30 tablet 05/27/18 Albuterol Inhaler [Ventolin Hfa 1 - 2 puff INHALATION RT-Q6H PRN 07/06/18 Inhaler] #1 inhaler Promethazine/Dextromethorphan 5 ml PO TID #120 ml 07/17/18 [Phenergan DM Syrup] predniSONE 50 mg PO DAILY #5 tablet 07/24/18 Allergies Allergy/AdvReac Type Severity Reaction Status Date / Time ibuprofen [From Motrin] AdvReac Nausea & Verified 07/24/18 13:53 Vomiting simvastatin [From Zocor] AdvReac Dizziness Verified 07/24/18 13:53 Review of Systems ROS Statement: Those systems with pertinent positive or pertinent negative responses have been documented in the HPI. ROS Other: All systems not noted in ROS Statement are negative. Past Medical History Past Medical History: Atrial Fibrillation, Hyperlipidemia, Hypertension, Pneumonia Additional Past Medical History / Comment(s): Pt recently admitted on 03/13/18 with costrochondritis with abnormal stress echo/ normal cardiac cath. Other hx: Chronic pain, chronic low back pain with bilateral sciatica, neuropathy bilateral hands/feet, migraines, partial SBO, kidney stones. History of Any Multi-Drug Resistant Organisms: MRSA Date of last positivie culture/infection: 04/10/18 MDRO Source:: TOE Past Surgical History: Heart Catheterization, Orthopedic Surgery Additional Past Surgical History / Comment(s): 03/14/18 Cardiac cath-normal coronaries, L shoulder rotator cuff repair x2, cervical injection. Past Anesthesia/Blood Transfusion Reactions: No Reported Reaction Past Psychological History: Bipolar, Depression, Schizophrenia Smoking Status: Current every day smoker Past Alcohol Use History: None Reported Past Drug Use History: Marijuana - Past Family History Father Family Medical History: Myocardial Infarction ([place]) Additional Family Medical History / Comment(s): mi at age 35, still living Mother Family Medical History: Myocardial Infarction ([place]) Additional Family Medical History / Comment(s): Mother has had at least one [place]- pt unsure at what age. He has not had much contact with his mother since he was 17 yrs old. General Exam Limitations: no limitations General appearance: alert, in no apparent distress Head exam: Present: atraumatic, normocephalic, normal inspection Eye exam: Present: normal appearance, PERRL, EOMI. Absent: scleral icterus, conjunctival injection, periorbital swelling ENT exam: Present: normal exam, mucous membranes moist Neck exam: Present: normal inspection, full ROM. Absent: tenderness, meningismu s, lymphadenopathy Respiratory exam: Present: normal lung sounds bilaterally, chest wall tenderness (Chest wall tenderness noted to the left side of the chest as well as the s ternum). Absent: respiratory distress, wheezes, rales, rhonchi, stridor Cardiovascular Exam: Present: regular rate, normal rhythm, normal heart sounds. Absent: systolic murmur, diastolic murmur, rubs, gallop, clicks Neurological exam: Present: alert, oriented X3, CN II-XII intact Psychiatric exam: Present: normal affect, normal mood Course Vital Signs 07/24/18 07/24/18 13:50 16:14 Temperature 98.5 F Pulse Rate 95 63 Respiratory 16 16 Rate Blood Pressure 132/86 137/77 O2 Sat by Pulse 100 98 Oximetry EKG Findings - EKG Comments: EKG Findings:: Sinus rhythm, ventricular rate 68, QRS 86, QTC 438, no evidence of ST elevation or depression Medical Decision Making - Medical Decision Making 48-year-old male with a past medical history of hyperlipidemia, hypertension, atrial fibrillation presents to the emergency department for a chief complaint of chest pain times one month. Patient states this has been consistent for the past patient states his pain is not changed. On exam patient has chest wall tenderness. It is pleuritic in nature. Patient was recently admitted 21 days ago for this pain and diagnosed with pneumonia. Repeat chest x-ray today shows that this has resolved. CBC and CMP unremarkable here today. Troponin is negative. EKG does not show any evidence of ST elevation or depression. Patient had negative troponins at that time as well as a negative d-dimer. Patient received a negative heart cath about 5 months ago and was diagnosed with costochondritis. Patient has been seen several times for similar complaints. Patient was given pain medicine which resolved his symptoms. Patient does admit he is still coughing and will be given a steroid as he does have a history of COPD. At this time patient is comfortable following up outpatient which I agree with as he has had consistent symptoms for over one month and they are reproducible on exam. He will return here if he has any worsening symptoms. - Lab Data Result diagrams: 07/24/18 14:30 07/24/18 14:30 Lab Results 07/24/18 07/24/18 07/24/18 Range/Units 14:30 14:30 14:30 WBC 8.9 (3.8-10.6) k/uL RBC 5.31 (4.30-5.90) m/uL Hgb 16.3 (13.0-17.5) gm/dL Hct 48.1 (39.0-53.0) % MCV 90.5 (80.0-100.0) fL MCH 30.6 (25.0-35.0) pg MCHC 33.8 (31.0-37.0) g/dL RDW 14.1 (11.5-15.5) % Plt Count 224 (150-450) k/uL Neutrophils % 69 % Lymphocytes % 19 % Monocytes % 6 % Eosinophils % 4 % Basophils % 0 % Neutrophils # 6.2 (1.3-7.7) k/uL Lymphocytes # 1.7 (1.0-4.8) k/uL Monocytes # 0.6 (0-1.0) k/uL Eosinophils # 0.3 (0-0.7) k/uL Basophils # 0.0 (0-0.2) k/uL PT 10.0 (9.0-12.0) sec INR 0.9 (<1.2) APTT 23.1 (22.0-30.0) sec Sodium 139 (137-145) mmol/L Potassium 4.0 (3.5-5.1) mmol/L Chloride 108 H (98-107) mmol/L Carbon Dioxide 24 (22-30) mmol/L Anion Gap 7 mmol/L BUN 14 (9-20) mg/dL Creatinine 0.70 (0.66-1.25) mg/dL Est GFR (CKD-EPI)AfAm >90 (>60 ml/min/1.73 sqM) Est GFR (CKD-EPI)NonAf >90 (>60 ml/min/1.73 sqM) Glucose 85 (74-99) mg/dL Calcium 9.2 (8.4-10.2) mg/dL Magnesium 2.0 (1.6-2.3) mg/dL Total Bilirubin 0.6 (0.2-1.3) mg/dL AST 27 (17-59) U/L ALT 44 (21-72) U/L Alkaline Phosphatase 80 (38-126) U/L Troponin I (0.000-0.034) ng/mL Total Protein 7.3 (6.3-8.2) g/dL Albumin 4.1 (3.5-5.0) g/dL Amylase 82 (30-110) U/L Lipase 62 (23-300) U/L 07/24/18 Range/Units 14:30 WBC (3.8-10.6) k/uL RBC (4.30-5.90) m/uL Hgb (13.0-17.5) gm/dL Hct (39.0-53.0) % MCV (80.0-100.0) fL MCH (25.0-35.0) pg MCHC (31.0-37.0) g/dL RDW (11.5-15.5) % Plt Count (150-450) k/uL Neutrophils % % Lymphocytes % % Monocytes % % Eosinophils % % Basophils % % Neutrophils # (1.3-7.7) k/uL Lymphocytes # (1.0-4.8) k/uL Monocytes # (0-1.0) k/uL Eosinophils # (0-0.7) k/uL Basophils # (0-0.2) k/uL PT (9.0-12.0) sec INR (<1.2) APTT (22.0-30.0) sec Sodium (137-145) mmol/L Potassium (3.5-5.1) mmol/L Chloride (98-107) mmol/L Carbon Dioxide (22-30) mmol/L Anion Gap mmol/L BUN (9-20) mg/dL Creatinine (0.66-1.25) mg/dL Est GFR (CKD-EPI)AfAm (>60 ml/min/1.73 sqM) Est GFR (CKD-EPI)NonAf (>60 ml/min/1.73 sqM) Glucose (74-99) mg/dL Calcium (8.4-10.2) mg/dL Magnesium (1.6-2.3) mg/dL Total Bilirubin (0.2-1.3) mg/dL AST (17-59) U/L ALT (21-72) U/L Alkaline Phosphatase (38-126) U/L Troponin I <0.012 (0.000-0.034) ng/mL Total Protein (6.3-8.2) g/dL Albumin (3.5-5.0) g/dL Amylase (30-110) U/L Lipase (23-300) U/L Disposition Clinical Impression: Chest wall pain, Cough Disposition: HOME SELF-CARE Condition: Good Instructions (If sedation given, give patient instructions): Chest Pain (ED), Costochondritis (ED) Additional Instructions: Please follow up with primary care in 1-2 days. Take steroid as directed. Return here to the emergency department if you have any worsening symptoms. Prescriptions: predniSONE 50 mg PO DAILY #5 tablet Is patient prescribed a controlled substance at d/c from ED?: No Referrals: Viktoria Richardson MD [Primary Care Provider] - 1-2 days Time of Disposition: 16:03
[2018-07-24] MEDS ORDERED: ASPIRIN 81 MG PO STA (14:12)
[2018-07-24] MEDS ORDERED: MORPHINE SULFATE 2 MG/ML SYRINGE IVP STA (14:12)
[2018-07-24] MEDS ORDERED: SODIUM CHLORIDE 0.9% 500 ML 500 ML IV STA (14:12)
[2018-07-24 14:52] LABS: ALT 44 U/L (21-72); AST 27 U/L (17-59); Albumin 4.1 g/dL (3.5-5.0); Alkaline Phosphatase 80 U/L (38-126); Amylase 82 U/L (30-110); Anion Gap 7 mmol/L; Blood Urea Nitrogen 14 mg/dL (9-20); Calcium 9.2 mg/dL (8.4-10.2); Carbon Dioxide 24 mmol/L (22-30); Chloride 108 mmol/L (98-107); Glucose 85 mg/dL (74-99); Lipase 62 U/L (23-300); Sodium 139 mmol/L (137-145); Total Bilirubin 0.6 mg/dL (0.2-1.3); Total Protein 7.3 g/dL (6.3-8.2)
[2018-07-24 14:55] LABS: Basophils % (A) 0 %; Eosinophils # (A) 0.3 k/uL (0-0.7); Eosinophils % (A) 4 %; HCT 48.1 % (39.0-53.0); HGB 16.3 gm/dL (13.0-17.5); Lymphocytes # (A) 1.7 k/uL (1.0-4.8); Lymphocytes % (A) 19 %; MCH 30.6 pg (25.0-35.0); MCHC 33.8 g/dL (31.0-37.0); MCV 90.5 fL (80.0-100.0); Mean Platelet Volume 7.1; Monocytes # (A) 0.6 k/uL (0-1.0); Monocytes % (A) 6 %; Neutrophils # (A) 6.2 k/uL (1.3-7.7); Neutrophils % (A) 69 %; Platelet Count 224 k/uL (150-450); RBC 5.31 m/uL (4.30-5.90); RDW 14.1 % (11.5-15.5); WBC 8.9 k/uL (3.8-10.6)
[2018-07-24 14:59] LABS: INR 0.9 (<1.2); Partial Thromboplastin Time 23.1 sec (22.0-30.0)
--- NOTE | 2018-07-24 15:13 | XR ---
EXAMINATION TYPE: XR chest 2V DATE OF EXAM: 07/24/2018 COMPARISON: Prior chest x-ray 07/17/2017 HISTORY: Chest pain TECHNIQUE: Frontal and lateral views of the chest are obtained. FINDINGS: There is no focal air space opacity, pleural effusion, or pneumothorax seen. The cardiac silhouette size is within normal limits. Increased AP diameter of the chest is suggestive of underlyi ng COPD. The osseous structures are intact. IMPRESSION: No acute cardiopulmonary process.
[2018-07-24 16:14] VITALS: BP 137/77; PULSE 63
== END 2018-07-24 16:21 | disposition home or self-care (01) ==
LOC: EC 13:50
DX: R07.89 Other chest pain (principal); R05 Cough; R07.1 Chest pain on breathing; J44.9 Chronic obstructive pulmonary disease, unspecified; I10 Essential (primary) hypertension; I48.91 Unspecified atrial fibrillation; G89.29 Other chronic pain; F17.200 Nicotine dependence, unspecified, uncomplicated; Z88.6 Allergy status to analgesic agent; Z88.8 Allergy status to other drugs, medicaments and biological substances; Z79.82 Long term (current) use of aspirin; Z79.899 Other long term (current) drug therapy; Z86.14 Personal history of Methicillin resistant Staphylococcus aureus infection; Z87.01 Personal history of pneumonia (recurrent); Z95.818 Presence of other cardiac implants and grafts; Z82.49 Family history of ischemic heart disease and other diseases of the circulatory system
CPT/HCPCS: 99284; 96374; 36415; 93005; 80053; 82150; 83690; 83735; 84484; 85025; 85610; 85730; 71046; J2270

== ENCOUNTER 2018-08-11 08:28 | Emergency (ER) | payer OTHER ==
[2018-08-11 08:38] VITALS: BP 130/78; TEMP 97.7
[2018-08-11] MEDS ORDERED: ACETAMINOPHEN TAB 500 MG TAB PO STA (08:59)
--- NOTE | 2018-08-11 09:18 | XR ---
EXAMINATION TYPE: XR shoulder complete LT DATE OF EXAM: 08/11/2018 CLINICAL HISTORY: pain COMPARISON: NONE TECHNIQUE: Three views of the left shoulder are obtained. FINDINGS: There is no acute fracture/dislocation evident. The acromioclavicular and glenohumeral pearl int spaces appear within normal limits. The visualized ribs are intact and unremarkable. IMPRESSION: 1. There is no acute fracture or dislocation. ICD 10 NO FRACTURE, INITIAL EVALUATION
--- NOTE | 2018-08-11 09:19 | XR ---
EXAMINATION TYPE: XR Hip LT and AP Pelvis DATE OF EXAM: 08/11/2018 CLINICAL HISTORY: pain TECHNIQUE: Single view the pelvis is submitted. 2 views of the left hip are also submitted. FINDINGS: No evidence for fracture, dislocation or bony lesion. Joint spaces are well-preserved. S I joints appear symmetric. IMPRESSION: 1. No acute fracture or dislocation seen. ICD 10 NO FRACTURE, INITIAL EVALUATION
[2018-08-11 09:28] VITALS: PULSE 78; RESP 18
--- NOTE | 2018-08-11 09:41 | ED ---
General Adult HPI - General Chief complaint: Fall Stated complaint: fall Time Seen by Provider: 08/11/18 08:43 Source: patient, RN notes reviewed Mode of arrival: ambulatory - History of Present Illness Initial comments: 48 year old male presents to the emergency department for a chief of fall. Patient states that yesterday he tripped and fell on the last stair. He denies any lightheadedness or dizziness preceding this fall. Patient states he fell on his left hip and left shoulder. He did not hit his head here. He denies any neck or back pain. Denies any blood thinners. Patient states he walked here without difficulty.Patient has no other complaints at this time including shortness of breath, chest pain, abdominal pain, nausea or vomiting, headache, or visual changes. - Related Data Home Medications Medication Instructions Recorded Confirmed Pramipexole [Mirapex] 2 mg PO HS 08/11/18 08/11/18 Previous Rx's Medication Instructions Recorded Lisinopril [Zestril] 20 mg PO DAILY 30 Days #30 tab 04/11/18 amLODIPine [Norvasc] 10 mg PO DAILY 30 Days #30 tab 04/11/18 Albuterol Inhaler [Ventolin Hfa 1 - 2 puff INHALATION RT-Q6H PRN 07/06/18 Inhaler] #1 inhaler Cyclobenzaprine [Flexeril] 5 mg PO TID PRN tab 08/01/18 Gabapentin [Neurontin] 400 mg PO TID 30 Days #90 cap 08/01/18 Hydrochlorothiazide [Hydrodiuril] 25 mg PO DAILY tab 08/01/18 Lurasidone [Latuda] 40 mg PO HS 30 Days #30 tab 08/01/18 Pramipexole [Mirapex] 0.125 mg PO AC-BID 30 Days #60 tab 08/01/18 cloNIDine HCL [Catapres] 0.2 mg PO TID 30 Days #90 tablet 08/01/18 lamoTRIgine [LaMICtal] 200 mg PO HS 30 Days #30 tablet 08/01/18 traZODone HCL [Desyrel] 200 mg PO HS 30 Days #60 tab 08/01/18 Allergies Allergy/AdvReac Type Severity Reaction Status Date / Time ibuprofen [From Motrin] AdvReac Nausea & Verified 08/11/18 09:38 Vomiting simvastatin [From Zocor] AdvReac Dizziness Verified 08/11/18 09:38 Review of Systems ROS Statement: Those systems with pertinent positive or pertinent negative responses have been documented in the HPI. ROS Other: All systems not noted in ROS Statement are negative. Past Medical History Past Medical History: Atrial Fibrillation, COPD, Hyperlipidemia, Hypertension, Pneumonia Additional Past Medical History / Comment(s): Pt recently admitted to [facility] on 07/04/18 with L lower pneumonia. Other HX; Costochondritis, chronic pain, chronic low back pain with bilateral sciatica, neuropathy bilateral hands/feet, migraines, kidney stones, past partial small bowel obstruction. History of Any Multi-Drug Resistant Organisms: MRSA Date of last positivie culture/infection: 04/10/18 MDRO Source:: TOE Past Surgical History: Heart Catheterization, Orthopedic Surgery Additional Past Surgical History / Comment(s): 03/14/18 Cardiac cath-normal coronaries, L shoulder rotator cuff repair x2, cervical injection. Past Anesthesia/Blood Transfusion Reactions: No Reported Reaction Past Psychological History: Bipolar, Depression, Schizophrenia Smoking Status: Current every day smoker Past Alcohol Use History: None Reported Past Drug Use History: Marijuana - Past Family History Father Family Medical History: Myocardial Infarction ([place]) Additional Family Medical History / Comment(s): mi at age 35, still living Mother Family Medical History: Myocardial Infarction ([place]) Additional Family Medical History / Comment(s): Mother has had at least one [place]- pt unsure at what age. He has not had much contact with his mother since he was 17 yrs old. General Exam - General Exam Comments Initial Comments: Left upper extremity: Full range of motion. Generalized tenderness noted. Radial pulse 2+ and capillary refill less than 2 seconds. Sensation intact. Cotton Baler strength 5 out of 5. No contusions, abrasions. Left lower extremity: Patient is 90 flexion of the left hip with 20 external rotation. DP pulse 2+, capillary refill less than 2 seconds. Sensation intact. Patient ambulatory without difficulty. No contusions noted to the left hip. General appearance: alert, in no apparent distress Head exam: Present: atraumatic (No contusions noted), normocephalic, normal inspection Eye exam: Present: normal appearance, PERRL, EOMI. Absent: scleral icterus, conjunctival injection, periorbital swelling ENT exam: Present: normal exam, normal oropharynx, mucous membranes moist, TM's normal bilaterally, normal external ear exam Neck exam: Present: normal inspection, full ROM. Absent: tenderness, meningismus, lymphadenopathy Respiratory exam: Present: normal lung sounds bilaterally. Absent: respiratory distress, wheezes, rales, rhonchi, stridor Cardiovascular Exam: Present: regular rate, normal rhythm, normal heart sounds. Absent: systolic murmur, diastolic murmur, rubs, gallop, clicks GI/Abdominal exam: Present: soft, normal bowel sounds. Absent: distended, tenderness, guarding, rebound, rigid Back exam: Absent: vertebral tenderness Neurological exam: Present: alert, oriented X3, CN II-XII intact, other (GCS 15) Psychiatric exam: Present: normal affect, normal mood Course Vital Signs 08/11/18 08/11/18 08:35 09:27 Temperature 97.7 F Pulse Rate 18 L 78 Respiratory 84 H 18 Rate Blood Pressure 130/78 O2 Sat by Pulse 96 98 Oximetry Medical Decision Making - Medical Decision Making 48-year-old male well-known to this emergency department presents for chief complaint of trip and fall yesterday. Patient now stating his left hip and left shoulder are painful. He did walk here. Denies hitting his head or any neck or back pain. Neurovascular status intact in the left upper and lower extremity. Patient has a 90 flexion of the left hip. Full range motion of the left shoulder. Patient does have tenderness noted to the generalized left shoulder. X-ray of the left hip shows no evidence for fracture or dislocation or bony lesion. X-ray of the left shoulder shows no acute fracture or dislocation. Acromioclavicular and glenohumeral joint spaces appear within normal limits. Visualized patient ambulating throughout the room without difficulty, no limp present. At this time patient can be discharged home to follow up with primary care. He is to return if he has any worsening symptoms. Disposition Clinical Impression: Fall, Left hip pain Disposition: HOME SELF-CARE Condition: Good Instructions (If sedation given, give patient instructions): Fall Prevention (ED), Hip Pain (ED) Additional Instructions: Please take Motrin and Tylenol for pain. Please follow-up with primary care in 1-2 days. Return here if you have any worsening symptoms. Is patient prescribed a controlled substance at d/c from ED?: No Referrals: Viktoria Richardson MD [Primary Care Provider] - 1-2 days Time of Disposition: 09:41
== END 2018-08-11 09:47 | disposition home or self-care (01) ==
LOC: EC 08:28
DX: M25.552 Pain in left hip (principal); M25.512 Pain in left shoulder; F17.200 Nicotine dependence, unspecified, uncomplicated; Z79.899 Other long term (current) drug therapy; Z88.6 Allergy status to analgesic agent; Z88.8 Allergy status to other drugs, medicaments and biological substances; Z95.1 Presence of aortocoronary bypass graft; W10.9XXA Fall (on) (from) unspecified stairs and steps, initial encounter; Y92.009 Unspecified place in unspecified non-institutional (private) residence as the place of occurrence of the external cause
CPT/HCPCS: 73502; 99283

== ENCOUNTER 2018-08-12 15:23 | Emergency (ER) | payer OTHER ==
[2018-08-12 15:26] VITALS: BP 132/79; PULSE 79; RESP 18; TEMP 97.7
[2018-08-12] MEDS ORDERED: DIAZEPAM 5 MG TAB PO STA (15:40)
[2018-08-12] MEDS ORDERED: ACETAMINOPHEN TAB 325 MG TAB PO STA (15:40)
--- NOTE | 2018-08-12 15:40 | ED ---
Upper Extremity HPI - General Chief Complaint: Extremity Injury, Upper Stated Complaint: Shoulder & neck pain Time Seen by Provider: 08/12/18 15:27 Source: patient Mode of arrival: ambulatory Limitations: no limitations - History of Present Illness Initial Comments: 48-year-old male presenting for chief complaint of left-sided neck and shoulder pain. Patient states that he was carrying a stroller down the stairs Saturday when he fell he states he mostly landed on his left side included left hip and left shoulder. Patient denies loss of consciousness or head injury to the head or neck at that time. Patient states he was evaluated yesterday for the fall. States imaging studies were negative and he was told to follow-up with her thick surgery for further evaluation of possible soft tissue injury. Patient states he did not schedule appointment yet. Patient states pain persisted today in the left shoulder and left-sided neck and presented for evaluation. Patient denies numbness tingling loss sensation of the left upper extremity. He states is equal in comparison to right. Patient states the pain increases with any range of motion of the left shoulder. Remaining review of systems negative, patient denies any recent fever, chills, shortness of breath, chest pain, back pain, abdominal pain, nausea, dysuria or hematuria, consti pation or diarrhea, headaches or visual changes, or any other complaints. - Related Data Home Medications Medication Instructions Recorded Confirmed Pramipexole [Mirapex] 2 mg PO HS 08/11/18 08/12/18 Previous Rx's Medication Instructions Recorded Lisinopril [Zestril] 20 mg PO DAILY 30 Days #30 tab 04/11/18 amLODIPine [Norvasc] 10 mg PO DAILY 30 Days #30 tab 04/11/18 Albuterol Inhaler [Ventolin Hfa 1 - 2 puff INHALATION RT-Q6H PRN 07/06/18 Inhaler] #1 inhaler Cyclobenzaprine [Flexeril] 5 mg PO TID PRN tab 08/01/18 Gabapentin [Neurontin] 400 mg PO TID 30 Days #90 cap 08/01/18 Hydrochlorothiazide [Hydrodiuril] 25 mg PO DAILY tab 08/01/18 Lurasidone [Latuda] 40 mg PO HS 30 Days #30 tab 08/01/18 Pramipexole [Mirapex] 0.125 mg PO AC-BID 30 Days #60 tab 08/01/18 cloNIDine HCL [Catapres] 0.2 mg PO TID 30 Days #90 tablet 08/01/18 lamoTRIgine [LaMICtal] 200 mg PO HS 30 Days #30 tablet 08/01/18 traZODone HCL [Desyrel] 200 mg PO HS 30 Days #60 tab 08/01/18 Allergies Allergy/AdvReac Type Severity Reaction Status Date / Time ibuprofen [From Motrin] AdvReac Nausea & Verified 08/12/18 15:26 Vomiting simvastatin [From Zocor] AdvReac Dizziness Verified 08/12/18 15:26 Review of Systems ROS Statement: Those systems with pertinent positive or pertinent negative responses have been documented in the HPI. ROS Other: All systems not noted in ROS Statement are negative. Past Medical History Past Medical History: Atrial Fibrillation, COPD, Hyperlipidemia, Hypertension, Pneumonia Additional Past Medical History / Comment(s): Pt recently admitted to [facility] on 07/04/18 with L lower pneumonia. Other HX; Costochondritis, chronic pain, chronic low back pain with bilateral sciatica, neuropathy bilateral hands/feet, migraines, kidney stones, past partial small bowel obstruction. History of Any Multi-Drug Resistant Organisms: MRSA Date of last positivie culture/infection: 04/10/18 MDRO Source:: TOE Past Surgical History: Heart Catheterization, Orthopedic Surgery Additional Past Surgical History / Comment(s): 03/14/18 Cardiac cath-normal coronaries, L shoulder rotator cuff repair x2, cervical injection. Past Anesthesia/Blood Transfusion Reactions: No Reported Reaction Past Psychological History: Bipolar, Depression, Schizophrenia Smoking Status: Current every day smoker Past Alcohol Use History: None Reported Past Drug Use History: Marijuana - Past Family History Father Family Medical History: Myocardial Infarction ([place]) Additional Family Medical History / Comment(s): mi at age 35, still living Mother Family Medical History: Myocardial Infarction ([place]) Additional Family Medical History / Comment(s): Mother has had at least one [place]- pt unsure at what age. He has not had much contact with his mother since he was 17 yrs old. General Exam - General Exam Comments Initial Comments: General: The patient is awake and alert, in no distress, and does not appear acutely ill. Eye: Pupils are equal, round and reactive to light, extra-ocular movements are intact. No nystagmus. There is normal conjunctiva bilaterally. No signs of icterus. Ears, nose, mouth and throat: There are moist mucous membranes and no oral lesions. Neck: The neck is supple, there is no tenderness or JVD. Cardiovascular: There is a regular rate and rhythm. No murmur, rub or gallop is appreciated. Respiratory: Lungs are clear to auscultation, respirations are non-labored, breath sounds are equal. No wheezes, stridor, rales, or rhonchi. Gastrointestinal: Soft, non-distended, non-tender abdomen without masses or organomegaly noted. There is no rebound or guarding present. Musculoskeletal: Normal inspection of the back, left shoulder no areas of bruising abrasions or laceration. Normal ROM of right shoulder pt is able to partly range right shoulder but refuses to fully range right shoulder secondary to pain. Strength 5/5 distal to shoulder at elbows, wrist b/l. Sensation intact. Radial ulses equal bilaterally 2+. Patient has no badge anesthesia. Patient is able to be okay fingers crossed thumbs-up finger opposition and extend at the wrist bilaterally ulnar median and radial nerve appear intact. Neurological: A&O x 3. CN II-XII intact, There are no obvious motor or sensory deficits. Coordination appears grossly intact. Speech is normal. Skin: Skin is warm and dry and no rashes or lesions are noted. Psychiatric: Cooperative, appropriate mood & affect, normal judgment. Limitations: no limitations Course Vital Signs 08/12/18 15:24 Temperature 97.7 F Pulse Rate 79 Respiratory 18 Rate Blood Pressure 132/79 O2 Sat by Pulse 99 Oximetry Medical Decision Making - Medical Decision Making Appearing 48-year-old male. Patient to her softball examination. Patient reports crystal pain with ranging of the left shoulder. Imaging studies from the day prior were reviewed. No acute osseous injury. CT of the cervical spine was found, no acute process noted. No point tenderness or midline tenderness palpation on examination. Patient states also paravertebral near the left shoulder. Patient is neurovascularly intact. At this time feel patient is stable for discharge to outpatient orthopedic surgery follow-up for further evaluation of traumatic left shoulder pain. Patient is placed in sling. Patient instructed to take [id number] ibuprofen and Tylenol for pain management. Patient will be discharged at this time after I discussed the case attending provider Dr. Diana who is agreeable patient plan of care as well as discharge. Review cervical spine imaging together. Disposition Clinical Impression: Left shoulder pain, Fall Disposition: HOME SELF-CARE Condition: Good Instructions (If sedation given, give patient instructions): Shoulder Sprain (ED) Additional Instructions: Please use medication as discussed. Please follow-up with orthopedic surgery for evaluation of persistent left shoulder pain, traumatic in the next 2-3 days. Please use sling for comfort. Please return to emergency room if the symptoms increase or worsen or for any other concerns. Is patient prescribed a controlled substance at d/c from ED?: No Referrals: Viktoria Richardson MD [Primary Care Provider] - 1-2 days Shorty Mobley MD [STAFF PHYSICIAN] - 1-2 days Time of Disposition: 16:21
--- NOTE | 2018-08-12 16:13 | XR ---
EXAMINATION TYPE: XR cervical spine comp DATE OF EXAM: 08/12/2018 COMPARISON: NONE HISTORY: Pain TECHNIQUE: Four views are submitted. FINDINGS: The odontoid is intact. There are no compression deformities. The prevertebral soft tissue structur es are within normal limits. Bony densities posterior to the spinous process of C7 and T1 appear wel l corticated and chronic. Also appear present on the previous CT scan of 03/17/2018. IMPRESSION: 1. No definite acute process. Correlate with CT scan as clinically warranted.
== END 2018-08-12 16:42 | disposition home or self-care (01) ==
LOC: EC 15:23
DX: M25.512 Pain in left shoulder (principal); M54.2 Cervicalgia; I48.91 Unspecified atrial fibrillation; Z86.14 Personal history of Methicillin resistant Staphylococcus aureus infection; F17.200 Nicotine dependence, unspecified, uncomplicated; Z79.899 Other long term (current) drug therapy; Z88.6 Allergy status to analgesic agent; Z88.8 Allergy status to other drugs, medicaments and biological substances; Z95.818 Presence of other cardiac implants and grafts; W19.XXXA Unspecified fall, initial encounter
CPT/HCPCS: 72050; 99283

== ENCOUNTER 2018-08-15 14:40 | Emergency (ER) | payer OTHER ==
[2018-08-15 14:55] VITALS: PULSE 65; RESP 18
--- NOTE | 2018-08-15 14:58 | ED ---
Psych HPI - General Chief Complaint: Psychiatric Symptoms Stated Complaint: Mental Health Time Seen by Provider: 08/15/18 14:57 Source: patient, RN notes reviewed, old records reviewed Mode of arrival: ambulatory - History of Present Illness Initial Comments: This is a 48-year-old male the ER for evaluation patient does say for evaluation regarding psychiatric illness. Patient has significant history of psychiatric illness. Patient seen in our ER multiple times for same complaints. Patient states he does not like his life and wants to commit suicide. MD Complaint: suicidal ideation, feels depressed -: unknown Associated Psychiatric Symptoms: depression, suicidal ideation History of same: Yes Quality: constant, getting worse Improves With: none Worsens With: none Associated Symptoms: denies other symptoms Treatments Prior to Arrival: placed on mental health hold If Self Harm: admits thoughts of self harm - Related Data Home Medications Medication Instructions Recorded Confirmed Pramipexole [Mirapex] 1 mg PO HS 08/11/18 08/15/18 Lurasidone HCl [Latuda] 60 mg PO PC-SUPPER 08/15/18 08/15/18 cloNIDine HCL [Catapres] 0.2 mg PO TID 08/15/18 08/15/18 Previous Rx's Medication Instructions Recorded Lisinopril [Zestril] 20 mg PO DAILY 30 Days #30 tab 04/11/18 amLODIPine [Norvasc] 10 mg PO DAILY 30 Days #30 tab 04/11/18 Gabapentin [Neurontin] 400 mg PO TID 30 Days #90 cap 08/01/18 lamoTRIgine [LaMICtal] 200 mg PO HS 30 Days #30 tablet 08/01/18 traZODone HCL [Desyrel] 200 mg PO HS 30 Days #60 tab 08/01/18 Allergies Allergy/AdvReac Type Severity Reaction Status Date / Time ibuprofen [From Motrin] AdvReac Nausea & Verified 08/15/18 15:13 Vomiting simvastatin [From Zocor] AdvReac Dizziness Verified 08/15/18 15:13 Review of Systems ROS Statement: Those systems with pertinent positive or pertinent negative responses have been documented in the HPI. ROS Other: All systems not noted in ROS Statement are negative. Past Medical History Past Medical History: Atrial Fibrillation, COPD, Hyperlipidemia, Hypertension, Pneumonia Additional Past Medical History / Comment(s): Pt recently admitted to [facility] on 07/04/18 with L lower pneumonia. Other HX; Costochondritis, chronic pain, chronic low back pain with bilateral sciatica, neuropathy bilateral hands/feet, migraines, kidney stones, past partial small bowel obstruction. History of Any Multi-Drug Resistant Organisms: MRSA Date of last positivie culture/infection: 04/10/18 MDRO Source:: TOE Past Surgical History: Heart Catheterization, Orthopedic Surgery Additional Past Surgical History / Comment(s): 03/14/18 Cardiac cath-normal coronaries, L shoulder rotator cuff repair x2, cervical injection. Past Anesthesia/Blood Transfusion Reactions: No Reported Reaction Past Psychological History: Bipolar, Depression, Schizophrenia Smoking Status: Current every day smoker Past Alcohol Use History: None Reported Past Drug Use History: Marijuana - Past Family History Father Family Medical History: Myocardial Infarction ([place]) Additional Family Medical History / Comment(s): mi at age 35, still living Mother Family Medical History: Myocardial Infarction ([place]) Additional Family Medical History / Comment(s): Mother has had at least one [place]- pt unsure at what age. He has not had much contact with his mother since he was 17 yrs old. General Exam Limitations: no limitations General appearance: alert, in no apparent distress Head exam: Present: atraumatic, normocephalic, normal inspection Eye exam: Present: normal appearance, PERRL, EOMI. Absent: scleral icterus, conjunctival injection, periorbital swelling ENT exam: Present: normal exam, mucous membranes moist Neck exam: Present: normal inspection. Absent: tenderness, meningismus, lymphadenopathy Respiratory exam: Present: normal lung sounds bilaterally. Absent: respiratory distress, wheezes, rales, rhonchi, stridor Cardiovascular Exam: Present: regular rate, normal rhythm, normal heart sounds. Absent: systolic murmur, diastolic murmur, rubs, gallop, clicks GI/Abdominal exam: Present: soft, normal bowel sounds. Absent: distended, tenderness, guarding, rebound, rigid Extremities exam: Present: normal inspection, full ROM, normal capillary refill. Absent: tenderness, pedal edema, joint swelling, calf tenderness Back exam: Present: normal inspection Neurological exam: Present: alert, oriented X3, CN II-XII intact Psychiatric exam: Present: normal affect, normal mood Skin exam: Present: warm, dry, intact, normal color. Absent: rash Course Vital Signs 08/15/18 14:53 Temperature 97.4 F L Pulse Rate 65 Respiratory 18 Rate Blood Pressure 119/80 O2 Sat by Pulse 100 Oximetry - Reevaluation(s) Reevaluation #1: 08/15/18 14:58 Medical clear for psychiatric evaluation Medical Decision Making - Medical Decision Making 48 male seen evaluated with psychiatry, patient also 20 of chest pain. Patient has no significant distress. Patient can be discharged Disposition Clinical Impression: Acute anxiety, Suicidal ideation, Chest wall pain Disposition: HOME SELF-CARE Condition: Good Instructions (If sedation given, give patient instructions): Costochondritis (ED) Is patient prescribed a controlled substance at d/c from ED?: No Referrals: Viktoria Richardson MD [Primary Care Provider] - 1-2 days
[2018-08-15] MEDS ORDERED: ACET/COD 300 MG/30 MG STARTER PACK 6 TAB BTL PO STA (15:52)
[2018-08-15 16:04] LABS: Amphetamine Screen,Urine Not Detected (NotDetected); Benzodiazepines Screen,Urine Detected (NotDetected); Cocaine Screen,Urine Not Detected (NotDetected); Methadone Screen, Urine Not Detected (NotDetected); Opiate Screen,Urine Not Detected (NotDetected); Phencyclidine Screen,Urine Not Detected (NotDetected); Tricyclic Antidepressant,Urine Not Detected (NotDetected); Urn Cannabinoid Scrn Detected (NotDetected)
[2018-08-15 16:05] LABS: Barbiturate Screen,Urine Not Detected (NotDetected); Oxycodone Screen, Urine Not Detected (NotDetected)
[2018-08-15 16:25] VITALS: BP 120/82; TEMP 70
== END 2018-08-15 16:23 | disposition home or self-care (01) ==
LOC: EC 14:40
DX: R45.851 Suicidal ideations (principal); F41.9 Anxiety disorder, unspecified; R07.89 Other chest pain; F32.9 Major depressive disorder, single episode, unspecified; I10 Essential (primary) hypertension; F20.9 Schizophrenia, unspecified; F17.200 Nicotine dependence, unspecified, uncomplicated; Z86.14 Personal history of Methicillin resistant Staphylococcus aureus infection; Z95.818 Presence of other cardiac implants and grafts; Z79.899 Other long term (current) drug therapy; Z88.6 Allergy status to analgesic agent; Z88.8 Allergy status to other drugs, medicaments and biological substances
CPT/HCPCS: 80306; 82075; 99285

== ENCOUNTER 2018-08-26 09:21 | Emergency (ER) | payer OTHER ==
[2018-08-26 09:31] VITALS: RESP 18; TEMP 98.2
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
[2018-08-26] MEDS ORDERED: MORPHINE SULFATE 4 MG/ML SYRINGE IVP STA (10:08)
[2018-08-26] MEDS ORDERED: MORPHINE SULFATE 4 MG/ML SYRINGE IM STA (10:38)
--- NOTE | 2018-08-26 11:14 | CT ---
EXAMINATION TYPE: CT cervical spine wo con DATE OF EXAM: 08/26/2018 COMPARISON: 03/17/2018 HISTORY: 48-year-old male Fall, Neck pain TECHNIQUE: Contiguous axial scanning of the cervical spine without IV contrast. Coronal and sagittal reconstructions performed. CT DLP: 418.1 mGycm Automated exposure control for dose reduction was used. FINDINGS: Moderate mucosal thickening incidentally seen within the left sphenoid sinus. The C1 segment is included on the axial series. No evident craniocervical junction abnormality, predental space widening, or prevertebral soft tissue swelling when correlating with the axial series. No acute fracture of the cervical spine. Alignment is maintained. Assessment from C7-T1 and below is limited due to artifact from the patient's shoulders. No large foc al disc herniation seen along the more cephalad levels. IMPRESSION: THE CRANIOCERVICAL JUNCTION AND C1 SEGMENT ARE INCLUDED ON THE AXIAL SERIES. NO ACUTE FRACTURE OR MAL ALIGNMENT OF THE CERVICAL SPINE.
--- NOTE | 2018-08-26 11:17 | CT ---
EXAMINATION TYPE: CT thoracic spine wo con DATE OF EXAM: 08/26/2018 COMPARISON: 03/17/2018 HISTORY: 48-year-old male with pain after Fall TECHNIQUE: Contiguous axial scanning of the thoracic spine without IV contrast. Coronal and sagittal reconstructions performed. CT DLP: 1336 mGycm Automated exposure control for dose reduction was used. FINDINGS: No vertebral compression collapse. Similar accentuated midthoracic kyphosis with associated mild to m oderate degenerative disc disease midthoracic spine. Alignment is maintained. Some prominent dependent atelectasis in the lower lungs. No prevertebral or paravertebral soft tissue abnormality seen. 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 NO VERTE BRAL COMPRESSION COLLAPSE OR MALALIGNMENT.
[2018-08-26 12:01] VITALS: BP 138/72; PULSE 80
== END 2018-08-26 12:02 | disposition home or self-care (01) ==
LOC: EC 09:21
DX: S16.1XXA Strain of muscle, fascia and tendon at neck level, initial encounter (principal); M54.6 Pain in thoracic spine; I10 Essential (primary) hypertension; F31.9 Bipolar disorder, unspecified; F20.9 Schizophrenia, unspecified; F17.200 Nicotine dependence, unspecified, uncomplicated; Z86.14 Personal history of Methicillin resistant Staphylococcus aureus infection; Z87.442 Personal history of urinary calculi; Z79.82 Long term (current) use of aspirin; Z79.899 Other long term (current) drug therapy; Z88.6 Allergy status to analgesic agent; Z88.8 Allergy status to other drugs, medicaments and biological substances; V44.6XXA Car passenger injured in collision with heavy transport vehicle or bus in traffic accident, initial encounter; Y92.410 Unspecified street and highway as the place of occurrence of the external cause
CPT/HCPCS: 72128; 72125; 99284; 96372; J2270

== ENCOUNTER 2018-09-03 16:57 | Observation (INO) | payer OTHER ==
[2018-09-03] MEDS ORDERED: ASPIRIN 81 MG PO STA (17:29)
[2018-09-03] MEDS ORDERED: NITROGLYCERIN SL TABS 0.4 MG TAB SUBLINGUAL STA ×3 (17:29)
--- NOTE | 2018-09-03 17:32 | ED ---
General Adult HPI - General Chief complaint: Chest Pain Stated complaint: chest pain Time Seen by Provider: 09/03/18 17:15 Source: patient, RN notes reviewed Mode of arrival: wheelchair Limitations: no limitations - History of Present Illness Initial comments: Patient is a pleasant 48-year-old male presenting to the emergency Department with complaints of chest discomfort. Onset of symptoms was this morning. Discomfort feels tight or sharp with some radiation towards the back. Patient does have some associated mild dyspnea and nausea as well as some sweating. Patient does have a history of similar symptoms previously. Patient has never been diagnosed with heart attack. Last heart catheterization was in March. Symptoms are somewhat severe at this point. No leg pain or leg swelling. - Related Data Home Medications Medication Instructions Recorded Confirmed Pramipexole [Mirapex] 2 mg PO HS 08/11/18 09/03/18 Lurasidone HCl [Latuda] 60 mg PO PC-SUPPER 08/15/18 09/03/18 cloNIDine HCL [Catapres] 0.2 mg PO DAILY 08/15/18 09/03/18 Aspirin EC [Ecotrin Low Dose] 81 mg PO DAILY 08/26/18 09/03/18 Hydrochlorothiazide 25 mg PO DAILY 09/03/18 09/03/18 Pramipexole Di-HCl [Mirapex] 0.125 mg PO BID 09/03/18 09/03/18 Previous Rx's Medication Instructions Recorded Lisinopril [Zestril] 20 mg PO DAILY 30 Days #30 tab 04/11/18 amLODIPine [Norvasc] 10 mg PO DAILY 30 Days #30 tab 04/11/18 Gabapentin [Neurontin] 400 mg PO TID 30 Days #90 cap 08/01/18 lamoTRIgine [LaMICtal] 200 mg PO HS 30 Days #30 tablet 08/01/18 traZODone HCL [Desyrel] 200 mg PO HS 30 Days #60 tab 08/01/18 HYDROcodone/APAP 5-325MG [[place] 1 tab PO Q6HR PRN 3 Days #12 tab 08/26/18 5-325] Allergies Allergy/AdvReac Type Severity Reaction Status Date / Time ibuprofen [From Motrin] AdvReac Nausea & Verified 09/03/18 18:25 Vomiting simvastatin [From Zocor] AdvReac Dizziness Verified 09/03/18 18:25 Review of Systems ROS Statement: Those systems with pertinent positive or pertinent negative responses have been documented in the HPI. ROS Other: All systems not noted in ROS Statement are negative. Constitutional: Denies: fever Eyes: Denies: eye pain ENT: Denies: ear pain Respiratory: Denies: cough Cardiovascular: Reports: chest pain Endocrine: Denies: fatigue Gastrointestinal: Denies: abdominal pain Genitourinary: Denies: dysuria Musculoskeletal: Denies: back pain Skin: Denies: rash Neurological: Denies: weakness Past Medical History Past Medical History: Atrial Fibrillation, COPD, Hyperlipidemia, Hypertension, Pneumonia Additional Past Medical History / Comment(s): Pt recently admitted to [facility] on 07/04/18 with L lower pneumonia. Other HX; Costochondritis, chronic pain, chronic low back pain with bilateral sciatica, neuropathy bilateral hands/feet, migraines, kidney stones, past partial small bowel obstruction. History of Any Multi-Drug Resistant Organisms: MRSA Date of last positivie culture/infection: 04/10/18 MDRO Source:: TOE Past Surgical History: Heart Catheterization, Orthopedic Surgery Additional Past Surgical History / Comment(s): 03/14/18 Cardiac cath-normal coronaries, L shoulder rotator cuff repair x2, cervical injection. Past Anesthesia/Blood Transfusion Reactions: No Reported Reaction Past Psychological History: Bipolar, Depression, Schizophrenia Smoking Status: Current every day smoker Past Alcohol Use History: None Reported Past Drug Use History: Marijuana - Past Family History Father Family Medical History: Myocardial Infarction (ME) Additional Family Medical History / Comment(s): mi at age 35, still living Mother Family Medical History: Myocardial Infarction (ME) Additional Family Medical History / Comment(s): Mother has had at least one ME- pt unsure at what age. He has not had much contact with his mother since he was 17 yrs old. General Exam Limitations: no limitations General appearance: alert, in no apparent distress Head exam: Present: atraumatic Eye exam: Present: normal appearance, PERRL ENT exam: Present: normal oropharynx Neck exam: Present: normal inspection Respiratory exam: Present: normal lung sounds bilaterally. Absent: chest wall tenderness Cardiovascular Exam: Present: regular rate, normal rhythm Expanded Peripheral pulses: 2+: Radial (R), Radial (L), Posterior Tibialis (R), Posterior Tibialis (L) GI/Abdominal exam: Present: soft. Absent: distended, tenderness, guarding Extremities exam: Present: normal inspection. Absent: pedal edema, calf tenderness Neurological exam: Present: alert Psychiatric exam: Present: normal affect, normal mood Skin exam: Present: normal color Course Vital Signs 09/03/18 09/03/18 09/03/18 17:05 17:44 17:49 Temperature 98.5 F Pulse Rate 78 68 78 Respiratory 20 18 18 Rate Blood Pressure 138/90 144/97 137/85 O2 Sat by Pulse 99 99 Oximetry 09/03/18 09/03/18 09/03/18 17:56 19:05 19:16 Temperature Pulse Rate 79 67 66 Respiratory 18 18 19 Rate Blood Pressure 124/93 128/69 O2 Sat by Pulse 99 99 Oximetry EKG Findings - EKG Comments: EKG Findings:: Normal sinus rhythm 74. FL 164. QRS 94. QT 416. QTc 461. Normal axis. LVH criteria. No acute ST change. Medical Decision Making - Medical Decision Making Patient reevaluated. Patient states discomfort is still severe. Patient denies any improvement of symptoms with nitroglycerin. Case was discussed with Dr. Christina who will admit patient for observation and cardiac evaluation. Patient updated. Patient request medication for pain. - Lab Data Result diagrams: 09/03/18 17:43 09/03/18 17:43 Lab Results 09/03/18 09/03/18 09/03/18 Range/Units 17:43 17:43 17:43 WBC 9.5 (3.8-10.6) k/uL RBC 4.26 L (4.30-5.90) m/uL Hgb 13.2 D (13.0-17.5) gm/dL Hct 38.0 L (39.0-53.0) % MCV 89.0 (80.0-100.0) fL MCH 30.9 (25.0-35.0) pg MCHC 34.7 (31.0-37.0) g/dL RDW 14.3 (11.5-15.5) % Plt Count 221 (150-450) k/uL Neutrophils % 73 % Lymphocytes % 16 % Monocytes % 6 % Eosinophils % 2 % Basophils % 0 % Neutrophils # 6.9 (1.3-7.7) k/uL Lymphocytes # 1.5 (1.0-4.8) k/uL Monocytes # 0.6 (0-1.0) k/uL Eosinophils # 0.2 (0-0.7) k/uL Basophils # 0.0 (0-0.2) k/uL PT 10.3 (9.0-12.0) sec INR 1.0 (<1.2) APTT 24.7 (22.0-30.0) sec D-Dimer 0.59 (<0.60) mg/L FEU Sodium 139 (137-145) mmol/L Potassium 4.0 (3.5-5.1) mmol/L Chloride 108 H (98-107) mmol/L Carbon Dioxide 23 (22-30) mmol/L Anion Gap 8 mmol/L BUN 8 L (9-20) mg/dL Creatinine 0.87 (0.66-1.25) mg/dL Est GFR (CKD-EPI)AfAm >90 (>60 ml/min/1.73 sqM) Est GFR (CKD-EPI)NonAf >90 (>60 ml/min/1.73 sqM) Glucose 86 (74-99) mg/dL Calcium 9.1 (8.4-10.2) mg/dL Magnesium 1.8 (1.6-2.3) mg/dL Total Bilirubin 0.6 (0.2-1.3) mg/dL AST 25 (17-59) U/L ALT 23 (21-72) U/L Alkaline Phosphatase 60 (38-126) U/L Troponin I (0.000-0.034) ng/mL Total Protein 7.0 (6.3-8.2) g/dL Albumin 4.2 (3.5-5.0) g/dL 09/03/18 Range/Units 17:43 WBC (3.8-10.6) k/uL RBC (4.30-5.90) m/uL Hgb (13.0-17.5) gm/dL Hct (39.0-53.0) % MCV (80.0-100.0) fL MCH (25.0-35.0) pg MCHC (31.0-37.0) g/dL RDW (11.5-15.5) % Plt Count (150-450) k/uL Neutrophils % % Lymphocytes % % Monocytes % % Eosinophils % % Basophils % % Neutrophils # (1.3-7.7) k/uL Lymphocytes # (1.0-4.8) k/uL Monocytes # (0-1.0) k/uL Eosinophils # (0-0.7) k/uL Basophils # (0-0.2) k/uL PT (9.0-12.0) sec INR (<1.2) APTT (22.0-30.0) sec D-Dimer (<0.60) mg/L FEU Sodium (137-145) mmol/L Potassium (3.5-5.1) mmol/L Chloride (98-107) mmol/L Carbon Dioxide (22-30) mmol/L Anion Gap mmol/L BUN (9-20) mg/dL Creatinine (0.66-1.25) mg/dL Est GFR (CKD-EPI)AfAm (>60 ml/min/1.73 sqM) Est GFR (CKD-EPI)NonAf (>60 ml/min/1.73 sqM) Glucose (74-99) mg/dL Calcium (8.4-10.2) mg/dL Magnesium (1.6-2.3) mg/dL Total Bilirubin (0.2-1.3) mg/dL AST (17-59) U/L ALT (21-72) U/L Alkaline Phosphatase (38-126) U/L Troponin I <0.012 (0.000-0.034) ng/mL Total Protein (6.3-8.2) g/dL Albumin (3.5-5.0) g/dL - Radiology Data Radiology results: image reviewed (Chest x-ray shows no acute process) Disposition Clinical Impression: Chest pain Disposition: ADMITTED IP TO THIS [facility] Is patient prescribed a controlled substance at d/c from ED?: No Referrals: Viktoria Richardson MD [Primary Care Provider] - 1-2 days Decision Time: 20:10
[2018-09-03 18:11] LABS: ALT 23 U/L (21-72); AST 25 U/L (17-59); Albumin 4.2 g/dL (3.5-5.0); Alkaline Phosphatase 60 U/L (38-126); Anion Gap 8 mmol/L; Blood Urea Nitrogen 8 mg/dL (9-20); Calcium 9.1 mg/dL (8.4-10.2); Carbon Dioxide 23 mmol/L (22-30); Chloride 108 mmol/L (98-107); Glucose 86 mg/dL (74-99); Magnesium 1.8 mg/dL (1.6-2.3); Sodium 139 mmol/L (137-145); Total Bilirubin 0.6 mg/dL (0.2-1.3)
[2018-09-03 18:13] LABS: Basophils % (A) 0 %; Eosinophils # (A) 0.2 k/uL (0-0.7); Eosinophils % (A) 2 %; Lymphocytes # (A) 1.5 k/uL (1.0-4.8); Lymphocytes % (A) 16 %; MCH 30.9 pg (25.0-35.0); MCHC 34.7 g/dL (31.0-37.0); Mean Platelet Volume 7.7; Monocytes # (A) 0.6 k/uL (0-1.0); Monocytes % (A) 6 %; Neutrophils # (A) 6.9 k/uL (1.3-7.7); Neutrophils % (A) 73 %; Platelet Count 221 k/uL (150-450); RBC 4.26 m/uL (4.30-5.90); RDW 14.3 % (11.5-15.5); WBC 9.5 k/uL (3.8-10.6)
[2018-09-03 18:19] LABS: D-Dimer 0.59 mg/L FEU (<0.60); Partial Thromboplastin Time 24.7 sec (22.0-30.0); Prothrombin Time 10.3 sec (9.0-12.0)
[2018-09-03 18:29] LABS: HGB 13.2 gm/dL (13.0-17.5)
--- NOTE | 2018-09-03 18:49 | XR ---
EXAMINATION: XR chest 2V DATE AND TIME: 09/03/2018 6:24 PM CLINICAL INDICATION: PHH; Chest Pain TECHNIQUE: Departmental protocol COMPARISON: 07/27/2018 FINDINGS: The lungs are clear. The pleural spaces are negative. The cardiac silhouette is not enlarged. The remainder of the mediastinal silhouette is unremarkable. The skeletal structures and soft tissues are negative for acute findings. IMPRESSION: NO ACUTE PROCESS.
[2018-09-03] MEDS ORDERED: KETOROLAC 30 MG/ML 1 ML VIAL IVP STA (20:08)
[2018-09-03] MEDS ORDERED: NITROGLYCERIN SL TABS 0.4 MG TAB SUBLINGUAL PRN (20:10)
--- NOTE | 2018-09-03 21:38 | P.HPIM ---
History of Present Illness H&P Date: 09/03/18 Chief Complaint: chest pain The patient is a 48-year-old male well known to our service from frequent hospitalizations secondary to chest pain. Apparently today he presented to the ER again complaining of left-sided chest pain. He was recently hospitalized here and discharged on July 04 after course of community- acquired pneumonia. He was prescribed a 7 day course of Levaquin. Again today he complains of left-sided chest wall pain. It has been fairly con sistent since he has been seen here in March. He still is having some left shoulder pain. He states shortness of breath worse with exertion but cough has resolved has resolved since his recent pneumonia. He is overall feeling better. Chest pain is reproducible to palpation. His appetite has also been poor. He denies any runny nose, sore throat, stuffy nose, nausea, vomiting, diarrhea, or dysuriaLeft heart cath on 03/13/18 showed normal coronaries and normal left ventricular systolic function. Patient has previously been diagnosed with costochondritis and reports ALLERGY to ibuprofen and Motrin as nausea, he reports that he takes gabapentin for neuropathic pain. The patient reports recently being diagnosed with COPD reports still smoking but now down to 10 cigarettes daily In the ER the patient had a comprehensive workup, EKG showed sinus mechanism with no suggestion of acute ischemia troponin was negative at less than 0.012, chest x-ray showed no acute process, her recent thoracic and cervical CT indicating degenerative disc disease and accentuated mid thoracic kyphosis. Review of Systems Pertinent positives per HPI all other review of systems otherwise negative Past Medical History Past Medical History: Atrial Fibrillation, COPD, Hyperlipidemia, Hypertension, Pneumonia Additional Past Medical History / Comment(s): Pt recently admitted to [facility] on 07/04/18 with L lower pneumonia. Other HX; Costochondritis, chronic pain, chronic low back pain with bilateral sciatica, neuropathy bilateral hands/feet, migraines, kidney stones, past partial small bowel obstruction. History of Any Multi-Drug Resistant Organisms: MRSA Date of last positivie culture/infection: 04/10/18 MDRO Source:: TOE Past Surgical History: Heart Catheterization, Orthopedic Surgery Additional Past Surgical History / Comment(s): 03/14/18 Cardiac cath-normal coronaries, L shoulder rotator cuff repair x2, cervical injection. Past Anesthesia/Blood Transfusion Reactions: No Reported Reaction Past Psychological History: Bipolar, Depression, Schizophrenia Smoking Status: Current every day smoker Past Alcohol Use History: None Reported Past Drug Use History: Marijuana - Past Family History Father Family Medical History: Myocardial Infarction (LA) Additional Family Medical History / Comment(s): mi at age 35, still living Mother Family Medical History: Myocardial Infarction (LA) Additional Family Medical History / Comment(s): Mother has had at least one LA- pt unsure at what age. He has not had much contact with his mother since he was 17 yrs old. Medications and Allergies Home Medications Medication Instructions Recorded Confirmed Type Lisinopril [Zestril] 20 mg PO DAILY 30 Days #30 tab 04/11/18 09/03/18 Rx amLODIPine [Norvasc] 10 mg PO DAILY 30 Days #30 tab 04/11/18 09/03/18 Rx Gabapentin [Neurontin] 400 mg PO TID 30 Days #90 cap 08/01/18 09/03/18 Rx lamoTRIgine [LaMICtal] 200 mg PO HS 30 Days #30 tablet 08/01/18 09/03/18 Rx traZODone HCL [Desyrel] 200 mg PO HS 30 Days #60 tab 08/01/18 09/03/18 Rx Pramipexole [Mirapex] 2 mg PO HS 08/11/18 09/03/18 History Lurasidone HCl [Latuda] 60 mg PO PC-SUPPER 08/15/18 09/03/18 History cloNIDine HCL [Catapres] 0.2 mg PO DAILY 08/15/18 09/03/18 History Aspirin EC [Ecotrin Low Dose] 81 mg PO DAILY 08/26/18 09/03/18 History HYDROcodone/APAP 5-325MG [[place] 1 tab PO Q6HR PRN 3 Days #12 tab 08/26/18 09/03/18 Rx 5-325] Hydrochlorothiazide 25 mg PO DAILY 09/03/18 09/03/18 History Pramipexole Di-HCl [Mirapex] 0.125 mg PO BID 09/03/18 09/03/18 History Allergies Allergy/AdvReac Type Severity Reaction Status Date / Time ibuprofen [From Motrin] AdvReac Nausea & Verified 09/03/18 18:25 Vomiting simvastatin [From Zocor] AdvReac Dizziness Verified 05/01/19 18:25 Physical Exam Vitals: Vital Signs Temp Pulse Resp BP Pulse Ox 09/03/18 20:46 98.7 F 60 19 127/61 99 09/03/18 19:16 66 19 09/03/18 19:05 67 18 128/69 99 09/03/18 17:56 79 18 124/93 99 09/03/18 17:49 78 18 137/85 99 09/03/18 17:44 68 18 144/97 09/03/18 17:05 98.5 F 78 20 138/90 99 Intake and Output 09/03/18 09/03/18 09/03/18 06:59 14:59 22:59 Other: Weight 106.141 kg Constitutional: No acute distress, conversant, pleasant Eyes: Anicteric sclerae, moist conjunctiva, no lid-lag, PERRLA ENMT: NC/AT,Oropharynx clear, no erythema, exudates Neck:Supple, FROM, no masses, or JVD, No carotid bruits; No thyromegaly Lungs: Clear to auscultation, Clear to percussion, Normal respiratory effort, no accessory muscle use Cardiovascular: Heart regular in rate and rhythm, No murmurs, gallops, or rubs no peripheral edema, + Pain to palpation over left chest wall and at costosternal junction on the L Abdominal: Soft Nontender, nom distended, no guarding, no rebound or rigidity, Normoactive bowel sounds No hepatomegaly, No splenomegaly, No palpable mass No abdominal wall hernia noted Skin: Normal temperature, tone, texture, turgor, No induration No subcutaneous nodules, No rash, lesions, No ulcers Extremities:No digital cyanosis No clubbing, Pedal pulses intact and symmetrical Radial pulses intact and symmetrical Normal gait and station, No calf tenderness Psychiatric: Alert and oriented to person, place and time, Appropriate affect Intact judgement Neuro: Muscles Strength 5/5 in all 4 extremities, Sensation to light touch grossly present throughout, Cranial nerves II-XII grossly intact. No focal sensory deficits Results CBC & Chem 7: 09/03/18 17:43 09/03/18 17:43 Labs: Abnormal Lab Results - Last 24 Hours (Table) 09/03/18 09/03/18 Range/Units 17:43 17:43 RBC 4.26 L (4.30-5.90) m/uL Hct 38.0 L (39.0-53.0) % Chloride 108 H (98-107) mmol/L BUN 8 L (9-20) mg/dL Assessment and Plan (1) Costochondritis Current Visit: Yes Status: Acute Code(s): M94.0 - CHONDROCOSTAL JUNCTION SYNDROME [TIETZE] SNOMED Code(s): 72404818 (2) Atypical chest pain Current Visit: No Status: Acute Code(s): R07.89 - OTHER CHEST PAIN SNOMED Code(s): 140374264 (3) HTN (hypertension) Current Visit: No Status: Chronic Priority: Low Code(s): I10 - ESSENTIAL (PRIMARY) HYPERTENSION SNOMED Code(s): 40205847 (4) Depression Current Visit: No Status: Chronic Priority: Low Code(s): F32.9 - MAJOR DEPRESSIVE DISORDER, SINGLE EPISODE, UNSPECIFIED SNOMED Code(s): 07920149 Plan: The patient is placed in observation anticipated less than 2 midnight stay with atypical chest pain unlikely to be cardiac previous workup and multiple prese ntations of similar symptoms found to be secondary to costochondritis despite cardiac risk factors. Previous left heart catheterization indicating normal coronary arteries in March of last year. Exam consistent with costochondritis, we'll initiate naproxen 500 mg by mouth twice a day, continue his gabapentin, hydrocodone. Cardiology is been consulted from the ER. We'll await further recommendations. Workup so far as been negative for any suggestion of acute ischemia as EKG and troponins were negative. We'll continue to follow the patient's clinical course. We'll resume all his home medications noted elevated blood pressure, we'll continue to monitor closely Anticipated discharge 1-2 days Discussed plan of care with: Patient and ER physician Prophylaxis: PPI and SCDs CODE STATUS: Full code
[2018-09-03] MEDS ORDERED: lamoTRIgine 100 MG TAB PO SCH (21:45)
[2018-09-03] MEDS ORDERED: traZODone HCL 100 MG TAB PO SCH (21:45)
[2018-09-03] MEDS ORDERED: PRAMIPEXOLE 1 MG TAB PO SCH (21:45)
[2018-09-03] MEDS: PRAMIPEXOLE 0.125 MG TAB PO SCH (22:52)
[2018-09-03] MEDS: GABAPENTIN 400 MG CAP PO SCH (22:52)
[2018-09-04] MEDS: HYDROcodone/APAP 5-325MG 1 EACH TAB PO PRN ×3 (00:35→13:30)
[2018-09-04 00:36] VITALS: RESP 18
[2018-09-04] MEDS: NITROGLYCERIN OINT 1 INCH/GM PACKET TOPICAL SCH ×2 (01:02→05:54)
[2018-09-04 06:52] LABS: Cholesterol 116 mg/dL (<200); HDL Cholesterol 28 mg/dL (40-60); LDL Cholesterol,Calculated 56 mg/dL (0-99); Triglycerides 161 mg/dL (<150)
[2018-09-04] MEDS ORDERED: PANTOPRAZOLE 40 MG TABLET PO SCH (07:30)
[2018-09-04 07:58] VITALS: TEMP 97.4
[2018-09-04] MEDS ORDERED: HYDROCHLOROTHIAZIDE 25 MG TAB PO SCH (09:00)
[2018-09-04] MEDS ORDERED: cloNIDine HCL 0.2 MG TAB PO SCH (09:00)
[2018-09-04] MEDS ORDERED: ASPIRIN 325 MG TAB PO SCH (09:00)
[2018-09-04] MEDS ORDERED: ASPIRIN 81 MG PO SCH (09:00)
[2018-09-04] MEDS ORDERED: NAPROXEN 250 MG TAB PO SCH (09:00)
[2018-09-04] MEDS ORDERED: amLODIPine 10 MG TAB PO SCH (09:00)
[2018-09-04] MEDS ORDERED: LISINOPRIL 20 MG TAB PO SCH (09:00)
[2018-09-04] MEDS: GABAPENTIN 400 MG CAP PO SCH (09:12)
[2018-09-04] MEDS: PRAMIPEXOLE 0.125 MG TAB PO SCH (09:13)
--- NOTE | 2018-09-04 10:43 | P.CRDCN ---
History of Present Illness History of present illness: This is a pleasant 48-year-old male past medical history significant for hypertension, COPD, dyslipidemia, chronic pain, chronic nicotine dependence and marijuana use. He sees Dr. Burleson in the office. He has undergone cardiac catheterization 03/2018 that revealed normal coronary arteries. He presents to the hospital with chest discomfort multiple times in the past. He states he has pain in the chest in the mid-sternal region that is described as a sharp pressure like pain that is worse with movement of his torso and is reproducible on palpation. The pain does not radiate to the arm, back, neck or jaw. There is no associated symptoms suggestive of angina. He states overnight he has had multiple episodes of chest discomfort intermittently. Currently he is chest pain free. He denies any symptoms of breath for respiratory type illness, no cough, no nasal drainage. His pain is not related to leaning forward or lying flat. EKG reveals sinus mechanism with no acute ST or T wave abnormalities noted. Chest x-ray is negative for an acute cardiopulmonary process. Laboratory data reviewed, cardiac enzymes negative 3, WBC 9.5, hemoglobin 13.2, platelets 221, d-dimer 0.59, sodium 139, potassium 4.0, creatinine 0.87, magnesium 1.8, CRP 10, LDL 56 HDL 28. Current cardiac medications include aspirin 81 mg daily, hydrochlorothiazide 25 mg daily, lisinopril 20 mg daily, amlodipine 10 mg daily, clonidine 0.2 mg daily. Most recent echocardiogram obtained in March 2018 reveals preserved left ventricular systolic function with ejection fraction 50-55%, moderate tricuspid regurgitation and mild pulmonary hypertension with an RVSP of 40 mmHg. At the time of my exam: CONSTITUTIONAL: Denies fever. Denies chills. EYES: Denies blurred vision. Denies vision changes. Denies eye pain. EARS, NOSE, MOUTH & THROAT: Denies headache. Denies sore throat. Denies ear pain. CARDIOVASCULAR: Complains of pleuritic chest pain. Denies shortness of breath. Denies orthopnea. Denies PND. Denies palpitations. RESPIRATORY: Denies cough. GASTROINTESTINAL: Denies abdominal pain. Denies diarrhea. Denies constipation. Denies nausea. Denies vomiting. MUSCULOSKELETAL: Denies myalgias. INTEGUMENTARY: Denies pruitis. Denies rash. NEUROLOGIC: Denies numbness. Denies tingling. Denies weakness. PSYCHIATRIC: Denies anxiety. Denies depression. ENDOCRINE: Denies fatigue. Denies weight change. Denies polydipsia. Denies polyurina. GENITOURINARY: Denies burning, hematuria or urgency with micturation. HEMATOLOGIC: Denies history of anemia. Denies bleeding. Blood pressure 125/79 heart rate 56 afebrile maintaining oxygen saturation on room air GENERAL: This is a 48-year-old male in no apparent distress at the time of my examination. HEENT: Head is atraumatic, normocephalic. Pupils are equal, round. Sclerae anicteric. Conjunctivae are clear. Mucous membranes of the mouth are moist. Neck is supple. There is no jugular venous distention. No carotid bruit is heard. LUNGS: Clear to auscultation no wheezes, rales or rhonchi. No chest wall tenderness is noted on palpation or with deep breathing. HEART: Regular rate and rhythm with murmur at the left sternal border, no rubs or gallops. S1 and S2 heard. ABDOMEN: Soft, nontender. Bowel sounds are heard. No organomegaly noted. EXTREMITIES: No evidence of peripheral edema and no calf tenderness noted. VASCULAR: Radial and dorsalis pedis pulses palpated, no evidence of clubbing. NEUROLOGIC: Patient is awake, alert and oriented x3. ASSESSMENT Pleuritic chest discomfort, atypical for angina. An acute coronary event has been ruled out. Recent cardiac catheterization reveals normal coronary arteries. Consider possible pericarditis. Hypertension Chronic nicotine dependence Pulmonary hypertension Tricuspid regurgitation PLAN An acute coronary event has been ruled out. Discontinue Nitropaste. Symptoms are not suggestive of angina possibly related to pericarditis. Obtain 2-D echocardiogram and Doppler study to assess cardiac structure and function. Results are pending and sedimentation rate. Discontinue aspirin as he has normal coronary arteries. Initiate on colchicine 0.6 mg twice a day. Thank you kindly for this consultation. Nurse Practitioner note has been reviewed, I agree with a documented findings and plan of care. Patient was seen and examined. Past Medical History Past Medical History: Atrial Fibrillation, COPD, Hyperlipidemia, Hypertension, Pneumonia Additional Past Medical History / Comment(s): Pt recently admitted to [facility] on with L lower pneumonia. Other HX; Costochondritis, chronic pain, chronic low back pain with bilateral sciatica, neuropathy bilateral hands/feet, migraines, kidney stones, past partial small bowel obstruction. History of Any Multi-Drug Resistant Organisms: MRSA Date of last positivie culture/infection: 04/10/18 MDRO Source:: TOE Past Surgical History: Heart Catheterization, Orthopedic Surgery Additional Past Surgical History / Comment(s): 03/14/18 Cardiac cath-normal coronaries, L shoulder rotator cuff repair x2, cervical injection. Past Anesthesia/Blood Transfusion Reactions: No Reported Reaction Past Psychological History: Bipolar, Depression, Schizophrenia Smoking Status: Current every day smoker Past Alcohol Use History: None Reported Past Drug Use History: Marijuana - Past Family History Father Family Medical History: Myocardial Infarction (ID) Additional Family Medical History / Comment(s): mi at age 35, still living Mother Family Medical History: Myocardial Infarction (ID) Additional Family Medical History / Comment(s): Mother has had at least one ID- pt unsure at what age. He has not had much contact with his mother since he was 17 yrs old. Medications and Allergies Home Medications Medication Instructions Recorded Confirmed Type Lisinopril [Zestril] 20 mg PO DAILY 30 Days #30 tab 04/11/18 09/03/18 Rx amLODIPine [Norvasc] 10 mg PO DAILY 30 Days #30 tab 04/11/18 09/03/18 Rx Gabapentin [Neurontin] 400 mg PO TID 30 Days #90 cap 08/01/18 09/03/18 Rx lamoTRIgine [LaMICtal] 200 mg PO HS 30 Days #30 tablet 08/01/18 09/03/18 Rx traZODone HCL [Desyrel] 200 mg PO HS 30 Days #60 tab 08/01/18 09/03/18 Rx Pramipexole [Mirapex] 2 mg PO HS 08/11/18 09/03/18 History Lurasidone HCl [Latuda] 60 mg PO PC-SUPPER 08/15/18 09/03/18 History cloNIDine HCL [Catapres] 0.2 mg PO DAILY 08/15/18 09/03/18 History Aspirin EC [Ecotrin Low Dose] 81 mg PO DAILY 08/26/18 09/03/18 History HYDROcodone/APAP 5-325MG [[place] 1 tab PO Q6HR PRN 3 Days #12 tab 08/26/18 09/03/18 Rx 5-325] Hydrochlorothiazide 25 mg PO DAILY 09/03/18 09/03/18 History Pramipexole Di-HCl [Mirapex] 0.125 mg PO BID 09/03/18 09/03/18 History Allergies Allergy/AdvReac Type Severity Reaction Status Date / Time ibuprofen [From Motrin] AdvReac Nausea & Verified 09/03/18 18:25 Vomiting simvastatin [From Zocor] AdvReac Dizziness Verified 09/03/18 18:25 Physical Exam Vitals: Vital Signs Temp Pulse Pulse Resp BP BP Pulse Ox 09/04/18 08:00 56 L 18 09/04/18 07:10 97.4 F L 56 L 18 125/79 98 09/04/18 04:00 18 09/04/18 03:21 97.8 F 63 18 130/76 97 09/04/18 00:00 98.4 F 68 18 139/86 100 09/03/18 23:15 19 09/03/18 20:46 98.7 F 60 19 127/61 99 09/03/18 19:16 66 19 09/03/18 19:05 67 18 128/69 99 09/03/18 17:56 79 18 124/93 99 09/03/18 17:49 78 18 137/85 99 09/03/18 17:44 68 18 144/97 09/03/18 17:05 98.5 F 78 20 138/90 99 Intake and Output 09/03/18 09/04/18 09/04/18 22:59 06:59 14:59 Other: Voiding Method Toilet Toilet # Voids 2 1 Weight 106.141 kg Results 09/03/18 17:43 09/03/18 17:43 Cardiac Enzymes 09/03/18 09/03/18 09/04/18 Range/Units 17:43 17:43 00:39 AST 25 (17-59) U/L Troponin I <0.012 <0.012 (0.000-0.034) ng/mL 09/04/18 Range/Units 05:46 AST (17-59) U/L Troponin I <0.012 (0.000-0.034) ng/mL Coagulation 09/03/18 Range/Units 17:43 PT 10.3 (9.0-12.0) sec APTT 24.7 (22.0-30.0) sec Lipids 09/04/18 Range/Units 05:46 Triglycerides 161 H (<150) mg/dL Cholesterol 116 (<200) mg/dL HDL Cholesterol 28 L (40-60) mg/dL CBC 09/03/18 Range/Units 17:43 WBC 9.5 (3.8-10.6) k/uL RBC 4.26 L (4.30-5.90) m/uL Hgb 13.2 D (13.0-17.5) gm/dL Hct 38.0 L (39.0-53.0) % Plt Count 221 (150-450) k/uL Comprehensive Metabolic Panel 09/03/18 Range/Units 17:43 Sodium 139 (137-145) mmol/L Potassium 4.0 (3.5-5.1) mmol/L Chloride 108 H (98-107) mmol/L Carbon Dioxide 23 (22-30) mmol/L BUN 8 L (9-20) mg/dL Creatinine 0.87 (0.66-1.25) mg/dL Glucose 86 (74-99) mg/dL Calcium 9.1 (8.4-10.2) mg/dL AST 25 (17-59) U/L ALT 23 (21-72) U/L Alkaline Phosphatase 60 (38-126) U/L Total Protein 7.0 (6.3-8.2) g/dL Albumin 4.2 (3.5-5.0) g/dL Current Medications Generic Name Dose Route Start Last Admin Trade Name Freq PRN Reason Stop Dose Admin Hydrocodone Bitart/Acetaminophen 1 each 09/03/18 21:38 09/04/18 06:35 [place] 5-325 PO 1 each Q6HR PRN Administration Severe Pain Amlodipine Besylate 10 mg 09/04/18 09:00 09/04/18 09:14 Norvasc PO 10 mg DAILY GILES Administration Aspirin 81 mg 09/04/18 09:00 09/04/18 09:12 Aspirin PO 81 mg DAILY GILES Administration Clonidine 0.2 mg 09/04/18 09:00 09/04/18 09:12 Catapres PO 0.2 mg DAILY GILES Administration Gabapentin 400 mg 09/03/18 22:00 09/04/18 09:12 Neurontin PO 400 mg TID GILES Administration Hydrochlorothiazide 25 mg 09/04/18 09:00 09/04/18 09:13 Hydrodiuril PO 25 mg DAILY GILES Administration Lamotrigine 200 mg 09/03/18 21:45 09/03/18 22:53 Lamictal PO 200 mg HS GILES Administration Lisinopril 20 mg 09/04/18 09:00 09/04/18 09:14 Zestril PO 20 mg DAILY GILES Administration Lurasidone HCl 60 mg 09/04/18 18:30 Latuda PO PC-SUPPER GILES Naproxen 500 mg 09/04/18 09:00 09/04/18 09:13 Naprosyn PO 500 mg BID GILES Administration Nitroglycerin 0.4 mg 09/03/18 20:10 Nitrostat SUBLINGUAL Q5M PRN Chest Pain Pantoprazole Sodium 40 mg 09/04/18 07:30 09/04/18 09:12 Protonix PO 40 mg AC-[id number] GILES Administration Pramipexole Dihydrochloride 2 mg 09/03/18 21:45 09/03/18 22:52 Mirapex PO 2 mg HS GILES Administration Pramipexole Dihydrochloride 0.125 mg 09/03/18 21:45 09/04/18 09:13 Mirapex PO 0.125 mg BID GILES Administration Sodium Chloride 10 ml 09/03/18 21:00 09/04/18 09:14 Saline Flush IV 10 ml BID GILES Administration Trazodone HCl 200 mg 09/03/18 21:45 09/03/18 22:52 Desyrel PO 200 mg HS COUNT INCLUDES THE [facility] Administration Intake and Output 09/03/18 09/04/18 09/04/18 22:59 06:59 14:59 Other: Voiding Method Toilet Toilet # Voids 2 1 Weight 106.141 kg 09/03/18 17:43 09/03/18 17:43
[2018-09-04] MEDS ORDERED: COLCHICINE 0.6 MG EACH PO SCH (10:45)
[2018-09-04 11:39] VITALS: BP 123/68; PULSE 68
--- NOTE | 2018-09-04 11:44 | ECHOF ---
Referral Reason:pleuritic cp MEASUREMENTS -------- HEIGHT: 175.3 cm WEIGHT: 108.4 kg BP: RVIDd: 4.2 cm (< 3.3) IVSd: 0.9 cm (0.6 - 1.1) LVIDd: 4.5 cm (3.9 - 5.3) LVPWd: 1.2 cm (0.6 - 1.1) IVSs: 1.6 cm LVIDs: 2.9 cm LVPWs: 1.8 cm LAESV Index (A-L): 25.27 ml/m Ao Diam: 3.5 cm (2.0 - 3.7) AV Cusp: 2.6 cm (1.5 - 2.6) LA Diam: 3.8 cm (2.7 - 3.8) MV EXCURSION: 17.701 mm (> 18.000) MV EF SLOPE: 136 mm/s (70 - 150) EPSS: 0.6 cm MV E [place]: 0.87 m/s MV DecT: 266 ms MV A [place]: 0.55 m/s MV E/A Ratio: 1.59 RAP: 15.00 mmHg RVSP: 58.55 mmHg FINDINGS -------- Sinus rhythm. This was a technically good study. The left ventricular size is normal. There is mild concentric left ventricular hypertrophy. Overa ll left ventricular systolic function is normal with, an EF between 55 - 60 %. The right ventricle is moderately enlarged. Normal LA size by volume 22+/-6 ml/m2. RA appears enlarged. The aortic valve is trileaflet and appears structurally normal. Mild mitral regurgitation is present. Moderate to severe tricuspid regurgitation present. There is moderate pulmonary hypertension. The right ventricular systolic pressure, as measured by Doppler, is 58.55mmHg. There is no pulmonic regurgitation present. The aortic root size is normal. The inferior vena cava is mildly dilated. There is no pericardial effusion. CONCLUSIONS -------- 1. Sinus rhythm. 2. This was a technically good study. 3. The left ventricular size is normal. 4. There is mild concentric left ventricular hypertrophy. 5. Overall left ventricular systolic function is normal with, an EF between 55 - 60 %. 6. The right ventricle is moderately enlarged. 7. Normal LA size by volume 22+/-6 ml/m2. 8. RA appears enlarged. 9. The aortic valve is trileaflet and appears structurally normal. 10. Mild mitral regurgitation is present. 11. Moderate to severe tricuspid regurgitation present. 12. There is moderate pulmonary hypertension. 13. The right ventricular systolic pressure, as measured by Doppler, is 58.55mmHg. 14. There is no pulmonic regurgitation present. 15. The aortic root size is normal. 16. The inferior vena cava is mildly dilated. 17. There is no pericardial effusion. SHAPER HAND: Nuria Price RDCS
--- NOTE | 2018-09-04 13:55 | P.DS ---
Providers Date of admission: 09/03/18 20:12 Expected date of discharge: 09/04/18 Attending physician: Jacobo Christina MD Consults: 09/03/18 20:10 Consult Physician Urgent Consulting Provider: Vinicius Haile Consult Reason/Comments: cp Do you want consulting provider notified?: Yes Primary care physician: Viktoria Richardson MD Hospital Course: Patient is a 48 old male with a past medical history of COPD, hypertension, and hyperlipidemia who presented to the ED with complaints of chest pain. The chest pain was substernal, sharp, exacerbated with movement, or taking a deep breath. The patient underwent an extensive evaluation in the ED with troponins less than 0.012, and d-dimer within normal limits. Chest x-ray revealed no acute abnormalities and EKG showed normal sinus rhythm at 74 bpm. The patient was subsequently admitted to the observation unit. The patient's troponins were less than 0.0123. An echocardiogram revealed moderate to severe tricuspid regurg and pulmonary hypertension with an EF between 55 and 60% The patient was evaluated by the cardiology service recommended that the patient's pain is likely musculoskeletal in origin as ACS was ruled out. The patient was advised that if his symptoms recur or he has any new onset of chest pain, shortness of breath, palpitations, or dizziness, he should return to the ED. He is presently stable, and ready for discharge to home. Physical Examination General: Non-toxic, in no acute distress, appears stated age, normal weight HEENT: NC/AT, anicteric sclerae, moist conjunctiva, no lid-lag, PERRLA Cardiovascular: S1/S2 wnl, no murmurs, rubs, or gallops Lungs: Clear to auscultation, normal respiratory effort, no accessory muscle use Abdominal: Soft, non-tender, non-distended, no guarding, rebound, or rigidity Skin: Warm, dry Extremities: No edema or contractures Psychiatric: Alert and oriented to person, place and time, appropriate affect Neuro: CN II-XII grossly intact, Strength 5/5 in all 4 extremities, Speech intact, Sensation to light touch grossly intact throughout Discharge diagnosis: Chest pain, atypical, likely musculoskeletal in origin; hypertension; COPD; hyperlipidemia A total of 35 minutes of time were spent preparing this complex discharge summary. Plan - Discharge Summary Discharge Rx Participant: No New Discharge Prescriptions: Continue Lisinopril [Zestril] 20 mg PO DAILY 30 Days #30 tab amLODIPine [Norvasc] 10 mg PO DAILY 30 Days #30 tab traZODone HCL [Desyrel] 200 mg PO HS 30 Days #60 tab lamoTRIgine [LaMICtal] 200 mg PO HS 30 Days #30 tablet Gabapentin [Neurontin] 400 mg PO TID 30 Days #90 cap Pramipexole [Mirapex] 2 mg PO HS Lurasidone HCl [Latuda] 60 mg PO PC-SUPPER cloNIDine HCL [Catapres] 0.2 mg PO DAILY HYDROcodone/APAP 5-325MG [[place] 5-325] 1 tab PO Q6HR PRN 3 Days #12 tab PRN Reason: Severe Pain Hydrochlorothiazide 25 mg PO DAILY Pramipexole Di-HCl [Mirapex] 0.125 mg PO BID Discontinued Aspirin EC [Ecotrin Low Dose] 81 mg PO DAILY Discharge Medication List Lisinopril [Zestril] 20 mg PO DAILY 30 Days #30 tab 04/11/18 [Rx] amLODIPine [Norvasc] 10 mg PO DAILY 30 Days #30 tab 04/11/18 [Rx] Gabapentin [Neurontin] 400 mg PO TID 30 Days #90 cap 08/01/18 [Rx] lamoTRIgine [LaMICtal] 200 mg PO HS 30 Days #30 tablet 08/01/18 [Rx] traZODone HCL [Desyrel] 200 mg PO HS 30 Days #60 tab 08/01/18 [Rx] Pramipexole [Mirapex] 2 mg PO HS 08/11/18 [History] Lurasidone HCl [Latuda] 60 mg PO PC-SUPPER 08/15/18 [History] cloNIDine HCL [Catapres] 0.2 mg PO DAILY 08/15/18 [History] HYDROcodone/APAP 5-325MG [[place] 5-325] 1 tab PO Q6HR PRN 3 Days #12 tab 08/26/18 [Rx] Hydrochlorothiazide 25 mg PO DAILY 09/03/18 [History] Pramipexole Di-HCl [Mirapex] 0.125 mg PO BID 09/03/18 [History] Follow up Appointment(s)/Referral(s): Viktoria Richardson MD [Primary Care Provider] - 1-2 days Eric Burleson MD [STAFF PHYSICIAN] - 2 Weeks Discharge Disposition: HOME SELF-CARE
[2018-09-04] MEDS ORDERED: LURASIDONE 20 MG TAB PO SCH (18:30)
== END 2018-09-04 14:21 | disposition home or self-care (01) ==
LOC: EC 16:57 → 1SOBS 20:12
PROVIDERS: ADMIT Family Medicine; ATTEND Family Medicine
DX: R07.2 Precordial pain (principal); R06.00 Dyspnea, unspecified; R11.0 Nausea; M25.512 Pain in left shoulder; R06.02 Shortness of breath; R61 Generalized hyperhidrosis; J44.9 Chronic obstructive pulmonary disease, unspecified; I27.20 Pulmonary hypertension, unspecified; I07.1 Rheumatic tricuspid insufficiency; E78.5 Hyperlipidemia, unspecified; F31.9 Bipolar disorder, unspecified; F20.9 Schizophrenia, unspecified; I10 Essential (primary) hypertension; Z87.01 Personal history of pneumonia (recurrent); I48.91 Unspecified atrial fibrillation; M94.0 Chondrocostal junction syndrome [Tietze]; G89.29 Other chronic pain; M54.42 Lumbago with sciatica, left side; M54.41 Lumbago with sciatica, right side; G62.9 Polyneuropathy, unspecified; G43.909 Migraine, unspecified, not intractable, without status migrainosus; F17.210 Nicotine dependence, cigarettes, uncomplicated; Z87.442 Personal history of urinary calculi; Z86.14 Personal history of Methicillin resistant Staphylococcus aureus infection; Z79.899 Other long term (current) drug therapy; Z79.82 Long term (current) use of aspirin; Z88.8 Allergy status to other drugs, medicaments and biological substances; Z88.6 Allergy status to analgesic agent; Z82.49 Family history of ischemic heart disease and other diseases of the circulatory system
CPT/HCPCS: 96374; 99285; 36415; 93306; 85379; 80061; 80053; 85652; 83735; 84484 ×2; 85025; 85610; 85730; 86140; 71046; G0378 ×2; J1885

== ENCOUNTER 2018-09-05 19:23 | Emergency (ER) | payer OTHER ==
[2018-09-05] MEDS ORDERED: HYDROcodone/APAP 5-325MG 1 EACH TAB PO STA (20:04)
--- NOTE | 2018-09-05 20:07 | ED ---
General Adult HPI - General Chief complaint: Chest Pain Stated complaint: Chest pain Time Seen by Provider: 09/05/18 19:32 Source: patient Mode of arrival: ambulatory Limitations: no limitations - History of Present Illness Initial comments: Dictation was produced using [employer] dictation software. please excuse any grammatical, word or spelling errors. Chief Complaint: 48-year-old male with past medical history of A. fib, COPD, dyslipidemia, pneumonia presents with persistent chest pain. History of Present Illness: It is a 48-year-old male multiple comorbidities. He presents today with persistent chest pain. Patient was admitted to the hospital where he was here for prostate to 3 days. He was apparently cardiology had serial troponins and echocardiogram performed. Patient was discharged. Patient's pain is atypical however there was concern that patient initial presentation is concerning for peritonitis. Tachycardia gram however did not suggest that. Patient was discharged. Patient states his pain is sharp and radiates to his back. Does report emesis slightly worse when he exerts himself. Patient does also report some pleuritic symptoms. Patient has any recent illnesses. The ROS documented in this emergency department record has been reviewed and confirmed by me. Those systems with pertinent positive or negative responses have been documented in the HPI. All other systems are other negative and/or noncontributory. PHYSICAL EXAM: General Impression: Alert and oriented x3, not in acute distress HEENT: Normocephalic atraumatic, extra-ocular movements intact, pupils equal and reactive to light bilaterally, mucous membranes moist. Cardiovascular: Heart regular rate and rhythm, S1&S2 audible, no murmurs, rubs or gallops Chest: Lungs clear to auscultation bilaterally, no rhonchi, no wheeze, no rales Abdomen: Bowel sounds present, abdomen soft, non-tender, non-distended, no organomegaly Musculoskeletal: Pulses present and equal in all extremities, no peripheral edema Motor: no focal deficits noted Neurological: CN II-XII grossly intact, no focal motor or sensory deficits noted Skin: Intact with no visualized rashes Psych: Normal affect and mood ED course: 48-year-old male presents with persistent chest pain. Patient is well-appearing. Pain is atypical in HPI. Labs, cardiology consultation and Dr. savage from recent admission was reviewed by myself. Vital signs upon arrival are unremarkable. Tachycardia gram was reviewed showing tricuspid regurgitation. EKG is not suggestive of overt pericarditis. Patient does not report increased symptoms when lying flat. Furthermore, patient's echocardiogram did not show any pericardial effusion. Laboratory evaluation was obtained given that there is some concern that maybe patient's symptoms may progress and there may be some lab abnormalities in light of patient's persistent symptoms. CBC and metabolic panel is unremarkable. Cardiac enzymes are negative. Patient given by mouth analgesia with improvement of symptoms. Patient given prescription for by mouth analgesia told to follow- up with his PCP. Patient states he has a appointment 2 weeks. Patient is urged to get an earlier appointment. Patient understandable agreeable to plan. Systems consistent with atypical chest pain, no obvious source but likely muscular skeletal. EKG interpretation: Ventricular rate 72, normal sinus rhythm, ME interval 174, QS 90, QTc 444. No ME prolongation, no QTC prolongation, no ST or T-wave changes noted. Overall, this EKG is unremarkable - Related Data Home Medications Medication Instructions Recorded Confirmed Pramipexole [Mirapex] 2 mg PO HS 08/11/18 09/05/18 Lurasidone HCl [Latuda] 60 mg PO PC-SUPPER 08/15/18 09/05/18 cloNIDine HCL [Catapres] 0.2 mg PO DAILY 08/15/18 09/05/18 Hydrochlorothiazide 25 mg PO DAILY 09/03/18 09/05/18 Pramipexole Di-HCl [Mirapex] 0.125 mg PO BID 09/03/18 09/05/18 Previous Rx's Medication Instructions Recorded Lisinopril [Zestril] 20 mg PO DAILY 30 Days #30 tab 04/11/18 amLODIPine [Norvasc] 10 mg PO DAILY 30 Days #30 tab 04/11/18 Gabapentin [Neurontin] 400 mg PO TID 30 Days #90 cap 08/01/18 lamoTRIgine [LaMICtal] 200 mg PO HS 30 Days #30 tablet 08/01/18 traZODone HCL [Desyrel] 200 mg PO HS 30 Days #60 tab 08/01/18 HYDROcodone/APAP 5-325MG [[place] 1 tab PO Q6HR PRN 3 Days #12 tab 08/26/18 5-325] HYDROcodone/APAP 5-325MG [[place] 1 tab PO Q6HR PRN 3 Days #6 tab 09/05/18 5-325] Allergies Allergy/AdvReac Type Severity Reaction Status Date / Time ibuprofen [From Motrin] AdvReac Nausea & Verified 09/05/18 19:56 Vomiting simvastatin [From Zocor] AdvReac Dizziness Verified 09/05/18 19:56 Review of Systems ROS Statement: Those systems with pertinent positive or pertinent negative responses have been documented in the HPI. ROS Other: All systems not noted in ROS Statement are negative. Past Medical History Past Medical History: Atrial Fibrillation, COPD, Hyperlipidemia, Hypertension, Pneumonia Additional Past Medical History / Comment(s): Pt recently admitted to [facility] on 07/04/18 with L lower pneumonia. Other HX; Costochondritis, chronic pain, chronic low back pain with bilateral sciatica, neuropathy bilateral hands/feet, migraines, kidney stones, past partial small bowel obstruction. History of Any Multi-Drug Resistant Organisms: MRSA Date of last positivie culture/infection: 04/10/18 MDRO Source:: TOE Past Surgical History: Heart Catheterization, Orthopedic Surgery Additional Past Surgical History / Comment(s): 03/14/18 Cardiac cath-normal cor onaries, L shoulder rotator cuff repair x2, cervical injection. Past Anesthesia/Blood Transfusion Reactions: No Reported Reaction Past Psychological History: Bipolar, Depression, Schizophrenia Smoking Status: Current every day smoker Past Alcohol Use History: None Reported Past Drug Use History: Marijuana - Past Family History Father Family Medical History: Myocardial Infarction ([place]) Additional Family Medical History / Comment(s): mi at age 35, still living Mother Family Medical History: Myocardial Infarction (AR) Additional Family Medical History / Comment(s): Mother has had at least one AR- pt unsure at what age. He has not had much contact with his mother since he was 17 yrs old. General Exam Limitations: no limitations Course Vital Signs 09/05/18 19:25 Temperature 97.7 F Pulse Rate 76 Respiratory 18 Rate Blood Pressure 118/78 O2 Sat by Pulse 96 Oximetry Medical Decision Making - Lab Data Result diagrams: 09/05/18 19:52 09/05/18 19:52 Lab Results 09/05/18 09/05/18 09/05/18 Range/Units 19:52 19:52 19:52 WBC 8.2 (3.8-10.6) k/uL RBC 4.32 (4.30-5.90) m/uL Hgb 13.2 (13.0-17.5) gm/dL Hct 38.2 L (39.0-53.0) % MCV 88.5 (80.0-100.0) fL MCH 30.6 (25.0-35.0) pg MCHC 34.5 (31.0-37.0) g/dL RDW 15.2 (11.5-15.5) % Plt Count 266 (150-450) k/uL Neutrophils % 73 % Lymphocytes % 18 % Monocytes % 5 % Eosinophils % 2 % Basophils % 0 % Neutrophils # 6.0 (1.3-7.7) k/uL Lymphocytes # 1.5 (1.0-4.8) k/uL Monocytes # 0.4 (0-1.0) k/uL Eosinophils # 0.2 (0-0.7) k/uL Basophils # 0.0 (0-0.2) k/uL Sodium 138 (137-145) mmol/L Potassium 4.2 (3.5-5.1) mmol/L Chloride 107 (98-107) mmol/L Carbon Dioxide 21 L (22-30) mmol/L Anion Gap 10 mmol/L BUN 10 (9-20) mg/dL Creatinine 0.85 (0.66-1.25) mg/dL Est GFR (CKD-EPI)AfAm >90 (>60 ml/min/1.73 sqM) Est GFR (CKD-EPI)NonAf >90 (>60 ml/min/1.73 sqM) Glucose 90 (74-99) mg/dL Calcium 9.6 (8.4-10.2) mg/dL Total Creatine Kinase 157 (55-170) U/L CK-MB (CK-2) 0.8 (0.0-2.4) ng/mL CK-MB (CK-2) Rel Index 0.5 Troponin I <0.012 (0.000-0.034) ng/mL Lipase 39 (23-300) U/L Disposition Clinical Impression: Chest pain Disposition: HOME SELF-CARE Condition: Good Instructions (If sedation given, give patient instructions): Chest Pain (ED) Prescriptions: HYDROcodone/APAP 5-325MG [[place] 5-325] 1 tab PO Q6HR PRN 3 Days #6 tab PRN Reason: Severe Pain Is patient prescribed a controlled substance at d/c from ED?: Yes If prescribed controlled substance>3 days was MAPS reviewed?: Prescribed <3 Days Referrals: Viktoria Richardson MD [Primary Care Provider] - 1-2 days Time of Disposition: 21:05
[2018-09-05 20:17] LABS: Basophils % (A) 0 %; Eosinophils # (A) 0.2 k/uL (0-0.7); Eosinophils % (A) 2 %; HCT 38.2 % (39.0-53.0); HGB 13.2 gm/dL (13.0-17.5); Lymphocytes # (A) 1.5 k/uL (1.0-4.8); Lymphocytes % (A) 18 %; MCH 30.6 pg (25.0-35.0); MCHC 34.5 g/dL (31.0-37.0); MCV 88.5 fL (80.0-100.0); Mean Platelet Volume 8.4; Monocytes # (A) 0.4 k/uL (0-1.0); Monocytes % (A) 5 %; Neutrophils % (A) 73 %; Platelet Count 266 k/uL (150-450); RBC 4.32 m/uL (4.30-5.90); RDW 15.2 % (11.5-15.5); WBC 8.2 k/uL (3.8-10.6)
[2018-09-05 20:40] LABS: Anion Gap 10 mmol/L; Blood Urea Nitrogen 10 mg/dL (9-20); Calcium 9.6 mg/dL (8.4-10.2); Carbon Dioxide 21 mmol/L (22-30); Chloride 107 mmol/L (98-107); Creatine Kinase 157 U/L (55-170); Glucose 90 mg/dL (74-99); Lipase 39 U/L (23-300); Potassium 4.2 mmol/L (3.5-5.1); Sodium 138 mmol/L (137-145)
[2018-09-05 20:52] LABS: Creatine Kinase MB 0.8 ng/mL (0.0-2.4); Troponin I <0.012 ng/mL (0.000-0.034)
[2018-09-05 21:21] VITALS: BP 99/69; PULSE 61; RESP 20; TEMP 98.1
== END 2018-09-05 21:22 | disposition home or self-care (01) ==
LOC: EC 19:23
DX: R07.89 Other chest pain (principal); I07.1 Rheumatic tricuspid insufficiency; I10 Essential (primary) hypertension; F32.9 Major depressive disorder, single episode, unspecified; F20.9 Schizophrenia, unspecified; F17.200 Nicotine dependence, unspecified, uncomplicated; Z86.79 Personal history of other diseases of the circulatory system; Z87.09 Personal history of other diseases of the respiratory system; Z87.01 Personal history of pneumonia (recurrent); Z87.39 Personal history of other diseases of the musculoskeletal system and connective tissue; Z86.14 Personal history of Methicillin resistant Staphylococcus aureus infection; Z95.818 Presence of other cardiac implants and grafts; Z82.49 Family history of ischemic heart disease and other diseases of the circulatory system; Z79.899 Other long term (current) drug therapy; Z88.6 Allergy status to analgesic agent; Z88.8 Allergy status to other drugs, medicaments and biological substances
CPT/HCPCS: 36415; 80048; 82550; 82553; 83690; 84484; 85025; 93005; 99285

== ENCOUNTER 2018-09-29 16:58 | Emergency (ER) | payer OTHER ==
[2018-09-29] MEDS ORDERED: ASPIRIN 81 MG PO STA (17:30)
--- NOTE | 2018-09-29 17:55 | ED ---
General Adult HPI - General Chief complaint: Psychiatric Symptoms Stated complaint: Took sleeping pills/chest pain Time Seen by Provider: 09/29/18 17:22 Source: patient Mode of arrival: ambulatory Limitations: no limitations - History of Present Illness Initial comments: Patient is a 48-year-old male presents with a chief complaint of suicidal ideations and chest pain. Patient states that his chest pain started yesterday. He characterizes it as sharp and substernal. He denies any radiation. He denies aggravating or alleviating factors. He states it is constant. Patient also states he feels as if he wants to hurt himself. He has a history of suicide attempts. Patient states that he took 6 trazodone tablets 2-1/2 hours ago to try to overdose. - Related Data Home Medications Medication Instructions Recorded Confirmed Pramipexole [Mirapex] 1 mg PO HS 08/11/18 09/29/18 Lurasidone HCl [Latuda] 60 mg PO PC-SUPPER 08/15/18 09/29/18 Hydrochlorothiazide 25 mg PO DAILY 09/03/18 09/29/18 lamoTRIgine [LaMICtal] 200 mg PO DAILY 09/29/18 09/29/18 Previous Rx's Medication Instructions Recorded Lisinopril [Zestril] 20 mg PO DAILY 30 Days #30 tab 04/11/18 amLODIPine [Norvasc] 10 mg PO DAILY 30 Days #30 tab 04/11/18 traZODone HCL [Desyrel] 200 mg PO HS 30 Days #60 tab 08/01/18 Allergies Allergy/AdvReac Type Severity Reaction Status Date / Time ibuprofen [From Motrin] AdvReac Nausea & Verified 09/29/18 20:59 Vomiting simvastatin [From Zocor] AdvReac Dizziness Verified 09/29/18 20:59 Review of Systems ROS Statement: Those systems with pertinent positive or pertinent negative responses have been documented in the HPI. ROS Other: All systems not noted in ROS Statement are negative. Cardiovascular: Reports: chest pain Psychiatric: Reports: depression, suicidal thoughts Past Medical History Past Medical History: Atrial Fibrillation, COPD, Hyperlipidemia, Hypertension, Pneumonia Additional Past Medical History / Comment(s): Pt recently admitted to [facility] on 07/04/18 with L lower pneumonia. Other HX; Costochondritis, chronic pain, chronic low back pain with bilateral sciatica, neuropathy bilateral hands/feet, migraines, kidney stones, past partial small bowel obstruction. History of Any Multi-Drug Resistant Organisms: MRSA Date of last positivie culture/infection: 04/10/18 MDRO Source:: TOE Past Surgical History: Heart Catheterization, Orthopedic Surgery Additional Past Surgical History / Comment(s): 03/14/18 Cardiac cath-normal coronaries, L shoulder rotator cuff repair x2, cervical injection. Past Anesthesia/Blood Transfusion Reactions: No Reported Reaction Past Psychological History: Bipolar, Depression, Schizophrenia Smoking Status: Current every day smoker Past Alcohol Use History: None Reported Past Drug Use History: Marijuana - Past Family History Father Family Medical History: Myocardial Infarction ([place]) Additional Family Medical History / Comment(s): mi at age 35, still living Mother Family Medical History: Myocardial Infarction (OR) Additional Family Medical History / Comment(s): Mother has had at least one OR- pt unsure at what age. He has not had much contact with his mother since he was 17 yrs old. General Exam Limitations: no limitations General appearance: alert, in no apparent distress Head exam: Present: atraumatic, normocephalic Eye exam: Present: normal appearance, PERRL ENT exam: Present: normal exam Neck exam: Present: normal inspection Respiratory exam: Present: normal lung sounds bilaterally. Absent: respiratory distress Cardiovascular Exam: Present: regular rate, normal rhythm GI/Abdominal exam: Present: soft. Absent: distended, tenderness Rectal exam: Present: deferred Extremities exam: Present: normal inspection Back exam: Present: normal inspection Neurological exam: Present: alert, oriented X3 Psychiatric exam: Present: depressed, flat affect, suicidal ideation Skin exam: Present: warm, dry, intact Course Vital Signs 09/29/18 09/29/18 09/29/18 17:11 17:53 18:00 Temperature 98.4 F Pulse Rate 98 76 Respiratory 18 16 18 Rate Blood Pressure 115/74 129/81 129/81 O2 Sat by Pulse 97 97 97 Oximetry 09/29/18 09/29/18 09/29/18 18:30 19:00 20:00 Temperature Pulse Rate 74 69 65 Respiratory 18 24 Rate Blood Pressure 129/83 143/85 129/88 O2 Sat by Pulse 98 97 97 Oximetry 09/29/18 09/29/18 09/29/18 21:00 22:00 22:30 Temperature Pulse Rate 68 66 59 L Respiratory Rate Blood Pressure 123/80 125/80 116/71 O2 Sat by Pulse 98 98 99 Oximetry 09/29/18 23:00 Temperature Pulse Rate 66 Respiratory 28 H Rate Blood Pressure 124/89 O2 Sat by Pulse 98 Oximetry Medical Decision Making - Medical Decision Making Patient presents with a chief complaint chest pain and suicidal ideations. On initial evaluation, vitals are stable, patient is in no acute distress. Flat affect. He is alert and oriented 4, neurologically intact, answers questions appropriately. Patient will be evaluated with basic labs including EKG and cardiac evaluation prior to medical clearance for psychiatry. EKG performed at 1725 shows normal sinus rhythm with a rate of 88/m, segments are within normal limits, no acute signs of ischemia present. 7:42 PM lab evaluation of this patient is unremarkable. troponin negative. on re- evaluation, patient states he is having 10 / 10 chest pain but appears to be in no distress. will repeat EKG. patient will not receive any narcotic medications in the ED today as he states he ingested an overdose of his medications prior to arrival. 8:12 PM patient evaluated by EPS, clinical cert completed. patient will be admitted to inpatient psychiatric service. repeat troponin is negative. - Lab Data Result diagrams: 09/29/18 17:50 09/29/18 17:50 Lab Results 09/29/18 09/29/18 09/29/18 Range/Units 17:50 17:50 17:50 WBC 8.1 (3.8-10.6) k/uL RBC 4.77 (4.30-5.90) m/uL Hgb 14.4 (13.0-17.5) gm/dL Hct 41.6 (39.0-53.0) % MCV 87.2 (80.0-100.0) fL MCH 30.2 (25.0-35.0) pg MCHC 34.6 (31.0-37.0) g/dL RDW 14.9 (11.5-15.5) % Plt Count 223 (150-450) k/uL Neutrophils % 68 % Lymphocytes % 22 % Monocytes % 6 % Eosinophils % 2 % Basophils % 0 % Neutrophils # 5.5 (1.3-7.7) k/uL Lymphocytes # 1.8 (1.0-4.8) k/uL Monocytes # 0.5 (0-1.0) k/uL Eosinophils # 0.2 (0-0.7) k/uL Basophils # 0.0 (0-0.2) k/uL Sodium 139 (137-145) mmol/L Potassium 3.4 L (3.5-5.1) mmol/L Chloride 106 (98-107) mmol/L Carbon Dioxide 27 (22-30) mmol/L Anion Gap 6 mmol/L BUN 13 (9-20) mg/dL Creatinine 0.71 (0.66-1.25) mg/dL Est GFR (CKD-EPI)AfAm >90 (>60 ml/min/1.73 sqM) Est GFR (CKD-EPI)NonAf >90 (>60 ml/min/1.73 sqM) Glucose 96 (74-99) mg/dL Calcium 9.4 (8.4-10.2) mg/dL Troponin I (0.000-0.034) ng/mL NT-Pro-B Natriuret Pep 48 pg/mL 09/29/18 09/29/18 Range/Units 17:50 23:13 WBC (3.8-10.6) k/uL RBC (4.30-5.90) m/uL Hgb (13.0-17.5) gm/dL Hct (39.0-53.0) % MCV (80.0-100.0) fL MCH (25.0-35.0) pg MCHC (31.0-37.0) g/dL RDW (11.5-15.5) % Plt Count (150-450) k/uL Neutrophils % % Lymphocytes % % Monocytes % % Eosinophils % % Basophils % % Neutrophils # (1.3-7.7) k/uL Lymphocytes # (1.0-4.8) k/uL Monocytes # (0-1.0) k/uL Eosinophils # (0-0.7) k/uL Basophils # (0-0.2) k/uL Sodium (137-145) mmol/L Potassium (3.5-5.1) mmol/L Chloride (98-107) mmol/L Carbon Dioxide (22-30) mmol/L Anion Gap mmol/L BUN (9-20) mg/dL Creatinine (0.66-1.25) mg/dL Est GFR (CKD-EPI)AfAm (>60 ml/min/1.73 sqM) Est GFR (CKD-EPI)NonAf (>60 ml/min/1.73 sqM) Glucose (74-99) mg/dL Calcium (8.4-10.2) mg/dL Troponin I <0.012 <0.012 (0.000-0.034) ng/mL NT-Pro-B Natriuret Pep pg/mL Disposition Clinical Impression: Suicidal ideations, Depression, Chest pain Disposition: TRANSFER TO PSYCH HOSP/UNIT Condition: Good Is patient prescribed a controlled substance at d/c from ED?: No Referrals: Viktoria Richardson MD [Primary Care Provider] - 1-2 days Decision to Admit Reason: Admit from EC - Out of Hospital Transfer - Req. Specs Out of Hospital Transfer - Requested Specifics: Psychiatric Non-ICU
[2018-09-29 18:04] LABS: Basophils % (A) 0 %; Eosinophils # (A) 0.2 k/uL (0-0.7); Eosinophils % (A) 2 %; HCT 41.6 % (39.0-53.0); HGB 14.4 gm/dL (13.0-17.5); Lymphocytes # (A) 1.8 k/uL (1.0-4.8); Lymphocytes % (A) 22 %; MCH 30.2 pg (25.0-35.0); MCHC 34.6 g/dL (31.0-37.0); MCV 87.2 fL (80.0-100.0); Mean Platelet Volume 8.1; Monocytes # (A) 0.5 k/uL (0-1.0); Monocytes % (A) 6 %; Neutrophils # (A) 5.5 k/uL (1.3-7.7); Neutrophils % (A) 68 %; Platelet Count 223 k/uL (150-450); RBC 4.77 m/uL (4.30-5.90); RDW 14.9 % (11.5-15.5); WBC 8.1 k/uL (3.8-10.6)
[2018-09-29 18:19] LABS: Anion Gap 6 mmol/L; Blood Urea Nitrogen 13 mg/dL (9-20); Calcium 9.4 mg/dL (8.4-10.2); Carbon Dioxide 27 mmol/L (22-30); Chloride 106 mmol/L (98-107); Glucose 96 mg/dL (74-99); Potassium 3.4 mmol/L (3.5-5.1); Sodium 139 mmol/L (137-145)
--- NOTE | 2018-09-29 18:42 | XR ---
EXAMINATION TYPE: XR chest 2V DATE OF EXAM: 09/29/2018 COMPARISON: Prior chest x-ray 09/03/2018 HISTORY: Chest pain, attempted overdose TECHNIQUE: Frontal and lateral views of the chest are obtained. FINDINGS: Prominent lung volumes suggest underlying COPD. There is no focal air space opacity, pleur al effusion, or pneumothorax seen. The cardiac silhouette size is stable. There are overlying cardia c leads. The osseous structures are intact. IMPRESSION: No acute cardiopulmonary process.
[2018-09-29] MEDS ORDERED: NITROGLYCERIN SL TABS 0.4 MG TAB SUBLINGUAL STA (19:34)
[2018-09-29] MEDS ORDERED: KETOROLAC 30 MG/ML 1 ML VIAL IVP STA (21:22)
[2018-09-30] MEDS: HYDROcodone/APAP 5-325MG 1 EACH TAB PO PRN ×2 (01:29→09:10)
[2018-09-30 07:55] LABS: Appearance,Urine Clear (Clear); Bilirubin,Urine Negative (Negative); Blood,Urine Negative (Negative); Color,Urine Yellow; Glucose,Urine (UA) Negative (Negative); Ketones,Urine Negative (Negative); Leukocyte Esterase,Urine Negative (Negative); Nitrite,Urine Negative (Negative); Protein,Urine Trace (Negative); Urobilinogen,Urine <2.0 mg/dL (<2.0)
[2018-09-30 07:58] LABS: Amphetamine Screen,Urine Not Detected (NotDetected); Barbiturate Screen,Urine Not Detected (NotDetected); Benzodiazepines Screen,Urine Not Detected (NotDetected); Cocaine Screen,Urine Not Detected (NotDetected); Methadone Screen, Urine Not Detected (NotDetected); Opiate Screen,Urine Not Detected (NotDetected); Oxycodone Screen, Urine Not Detected (NotDetected); Phencyclidine Screen,Urine Not Detected (NotDetected); Tricyclic Antidepressant,Urine Not Detected (NotDetected); Urn Cannabinoid Scrn Detected (NotDetected)
[2018-09-30 12:14] VITALS: BP 140/73; PULSE 73; RESP 18; TEMP 98.3
== END 2018-09-30 12:15 ==
LOC: EC 16:58
DX: T43.212A Poisoning by selective serotonin and norepinephrine reuptake inhibitors, intentional self-harm, initial encounter (principal); R07.2 Precordial pain; F32.9 Major depressive disorder, single episode, unspecified; I10 Essential (primary) hypertension; F20.9 Schizophrenia, unspecified; F17.200 Nicotine dependence, unspecified, uncomplicated; Z91.5 Personal history of self-harm; Z82.49 Family history of ischemic heart disease and other diseases of the circulatory system; Z86.14 Personal history of Methicillin resistant Staphylococcus aureus infection; Z86.79 Personal history of other diseases of the circulatory system; Z87.09 Personal history of other diseases of the respiratory system; Z87.01 Personal history of pneumonia (recurrent); Z95.818 Presence of other cardiac implants and grafts; Z79.899 Other long term (current) drug therapy; Z88.6 Allergy status to analgesic agent; Z88.8 Allergy status to other drugs, medicaments and biological substances
CPT/HCPCS: 82075; 36415; 93005; 83880; 80048; 84484; 85025; 71046; 99285; 96374; J1885; 80306; 81003

== ENCOUNTER 2018-11-01 13:41 | Emergency (ER) | payer OTHER ==
[2018-11-01 13:46] VITALS: RESP 18; TEMP 98.1
--- NOTE | 2018-11-01 13:59 | ED ---
General Adult HPI - General Chief complaint: Chest Pain Stated complaint: Chest Pain Time Seen by Provider: 11/01/18 13:50 Source: patient, RN notes reviewed Mode of arrival: ambulatory Limitations: no limitations - History of Present Illness Initial comments: 48-year-old male well known to this emergency Department with a past medical history of atrial fibrillation, COPD, hyperlipidemia, hypertension, pneumonia, costochondritis, chronic pain, persistent to the emergency department for a chief complaint of chest pain. Patient states that this pain started yesterday. States that he has had this pain several times before. In fact patient states it has been going on for several years and it comes and goes in nature. He describes it as a sharp pain on the left side of his chest. States movement makes the pain worse. Denies any other symptoms making the pain worse. She states he has some shortness of breath. States he always has shortness of breath with this chest pain. States he was recently here on Saturday for the same issue and it did go away but then came back. States he has an appointment with his information assoc next week. Patient has no other complaints at this time including abdominal pain, nausea or vomiting, headache, or visual changes. - Related Data Home Medications Medication Instructions Recorded Confirmed Lurasidone HCl [Latuda] 60 mg PO HS 08/15/18 11/01/18 Gabapentin 800 mg PO TID 10/28/18 11/01/18 Lurasidone [Latuda] 40 mg PO HS 10/28/18 11/01/18 Mirtazapine [Remeron] 30 mg PO HS 10/28/18 11/01/18 QUEtiapine FUMARATE [SEROquel] 200 mg PO HS 10/28/18 11/01/18 clonazePAM [KlonoPIN] 0.5 mg PO TID 10/28/18 11/01/18 rOPINIRole HCL [Requip] 1 mg PO HS 10/28/18 11/01/18 traMADol HCL [Ultram] 50 mg PO BID PRN 10/28/18 11/01/18 Allergies Allergy/AdvReac Type Severity Reaction Status Date / Time ibuprofen [From Motrin] AdvReac Nausea & Verified 11/01/18 14:03 Vomiting simvastatin [From Zocor] AdvReac Dizziness Verified 11/01/18 14:03 Review of Systems ROS Statement: Those systems with pertinent positive or pertinent negative responses have been documented in the HPI. ROS Other: All systems not noted in ROS Statement are negative. Past Medical History Past Medical History: Atrial Fibrillation, COPD, Hyperlipidemia, Hypertension, Pneumonia Additional Past Medical History / Comment(s): Pt recently admitted to [facility] on 07/04/18 with L lower pneumonia. Other HX; Costochondritis, chronic pain, chronic low back pain with bilateral sciatica, neuropathy bilateral hands/feet, migraines, kidney stones, past partial small bowel obstruction. History of Any Multi-Drug Resistant Organisms: MRSA Date of last positivie culture/infection: 04/10/18 MDRO Source:: TOE Past Surgical History: Heart Catheterization, Orthopedic Surgery Additional Past Surgical History / Comment(s): 03/14/18 Cardiac cath-normal coronaries, L shoulder rotator cuff repair x2, cervical injection. Past Anesthesia/Blood Transfusion Reactions: No Reported Reaction Past Psychological History: Bipolar, Depression, Schizophrenia Smoking Status: Current every day smoker Past Alcohol Use History: None Reported Past Drug Use History: Marijuana - Past Family History Father Family Medical History: Myocardial Infarction ([place]) Additional Family Medical History / Comment(s): mi at age 35, still living Mother Family Medical History: Myocardial Infarction ([place]) Additional Family Medical History / Comment(s): Mother has had at least one [place]- pt unsure at what age. He has not had much contact with his mother since he was 17 yrs old. General Exam Limitations: no limitations General appearance: alert, in no apparent distress (Patient is in no distress, resting comfortably) Head exam: Present: atraumatic, normocephalic, normal inspection Eye exam: Present: normal appearance, PERRL, EOMI. Absent: scleral icterus, co njunctival injection, periorbital swelling ENT exam: Present: normal exam, mucous membranes moist Neck exam: Present: normal inspection, full ROM. Absent: tenderness, meningismus, lymphadenopathy Respiratory exam: Present: normal lung sounds bilaterally, chest wall tenderness (Patient has left-sided chest wall tenderness to palpation). Absent: respiratory distress, wheezes, rales, rhonchi, stridor Cardiovascular Exam: Present: regular rate, normal rhythm, normal heart sounds. Absent: systolic murmur, diastolic murmur, rubs, gallop, clicks GI/Abdominal exam: Present: soft, normal bowel sounds. Absent: distended, tenderness, guarding, rebound, rigid Neurological exam: Present: alert, oriented X3, CN II-XII intact Psychiatric exam: Present: normal affect, normal mood Course Vital Signs 11/01/18 11/01/18 11/01/18 13:43 17:16 19:29 Temperature 98.1 F Pulse Rate 104 H 62 88 Respiratory 18 18 18 Rate Blood Pressure 146/87 134/60 126/78 O2 Sat by Pulse 98 99 100 Oximetry - Reevaluation(s) Reevaluation #1: 11/01/18 13:58 Previous visits and chart reviewed. Patient had an echo on 03/14/2018 which carmen wed an ejection fraction between 50 and 55%. Cardiac catheterization on 03/17/2018 showed normal coronary arteries. EKG Findings - EKG Comments: EKG Findings:: EKG shows a sinus tachycardia with a ventricular rate of 104, ID interval 168, QTC 473, no evidence of ST elevation or depression. Medical Decision Making - Medical Decision Making 48-year-old male well-known to this emergency department presents for chest pain. States this has been ongoing since yesterday. States he has had it several times before and has actually been going on for several years intermittently. It is a sharp stabbing pain. Minimal shortness of breath. Patient was seen here for same issue Saturday and it went away. Patient initially tachycardic at 104 however this did normalize quickly. Vitals otherwise unremarkable. On exam pain is reproducible to palpation. He states pain hurts more with movement. CBC obtained and unremarkable. Troponin negative x 2. Patient recently had a negative echo last month and a neg heart cath in march 2018. Patient has an appointment with a information assoc next week. At this time his symptoms are atypical and reproducible on exam. Likely a chest wall pain. Patient given pain meds, resting comfortable, requesting food and watching TV. Patient will follow-up with his information assoc as well as primary care in 1-2 days. He will return here if he has any worsening symptoms. - Lab Data Result diagrams: 11/01/18 14:50 11/01/18 14:50 Lab Results 11/01/18 11/01/18 11/01/18 Range/Units 14:50 14:50 14:50 WBC 7.9 (3.8-10.6) k/uL RBC 5.07 (4.30-5.90) m/uL Hgb 15.6 (13.0-17.5) gm/dL Hct 43.3 (39.0-53.0) % MCV 85.4 (80.0-100.0) fL MCH 30.8 (25.0-35.0) pg MCHC 36.1 (31.0-37.0) g/dL RDW 14.8 (11.5-15.5) % Plt Count 263 (150-450) k/uL Neutrophils % 63 % Lymphocytes % 24 % Monocytes % 7 % Eosinophils % 2 % Basophils % 1 % Neutrophils # 5.0 (1.3-7.7) k/uL Lymphocytes # 1.9 (1.0-4.8) k/uL Monocytes # 0.6 (0-1.0) k/uL Eosinophils # 0.2 (0-0.7) k/uL Basophils # 0.1 (0-0.2) k/uL Hyperchromasia Slight PT 10.6 (9.0-12.0) sec INR 1.0 (<1.2) APTT 23.3 (22.0-30.0) sec D-Dimer 0.20 (<0.60) mg/L FEU Sodium 140 (137-145) mmol/L Potassium 3.4 L (3.5-5.1) mmol/L Chloride 106 (98-107) mmol/L Carbon Dioxide 23 (22-30) mmol/L Anion Gap 11 mmol/L BUN 14 (9-20) mg/dL Creatinine 0.89 (0.66-1.25) mg/dL Est GFR (CKD-EPI)AfAm >90 (>60 ml/min/1.73 sqM) Est GFR (CKD-EPI)NonAf >90 (>60 ml/min/1.73 sqM) Glucose 89 (74-99) mg/dL Calcium 9.2 (8.4-10.2) mg/dL Magnesium 2.0 (1.6-2.3) mg/dL Total Bilirubin 0.8 (0.2-1.3) mg/dL AST 30 (17-59) U/L ALT 27 (21-72) U/L Alkaline Phosphatase 59 (38-126) U/L Troponin I (0.000-0.034) ng/mL Total Protein 7.5 (6.3-8.2) g/dL Albumin 4.6 (3.5-5.0) g/dL Amylase 60 (30-110) U/L Lipase 53 (23-300) U/L 11/01/18 11/01/18 Range/Units 14:50 18:15 WBC (3.8-10.6) k/uL RBC (4.30-5.90) m/uL Hgb (13.0-17.5) gm/dL Hct (39.0-53.0) % MCV (80.0-100.0) fL MCH (25.0-35.0) pg MCHC (31.0-37.0) g/dL RDW (11.5-15.5) % Plt Count (150-450) k/uL Neutrophils % % Lymphocytes % % Monocytes % % Eosinophils % % Basophils % % Neutrophils # (1.3-7.7) k/uL Lymphocytes # (1.0-4.8) k/uL Monocytes # (0-1.0) k/uL Eosinophils # (0-0.7) k/uL Basophils # (0-0.2) k/uL Hyperchromasia PT (9.0-12.0) sec INR (<1.2) APTT (22.0-30.0) sec D-Dimer (<0.60) mg/L FEU Sodium (137-145) mmol/L Potassium (3.5-5.1) mmol/L Chloride (98-107) mmol/L Carbon Dioxide (22-30) mmol/L Anion Gap mmol/L BUN (9-20) mg/dL Creatinine (0.66-1.25) mg/dL Est GFR (CKD-EPI)AfAm (>60 ml/min/1.73 sqM) Est GFR (CKD-EPI)NonAf (>60 ml/min/1.73 sqM) Glucose (74-99) mg/dL Calcium (8.4-10.2) mg/dL Magnesium (1.6-2.3) mg/dL Total Bilirubin (0.2-1.3) mg/dL AST (17-59) U/L ALT (21-72) U/L Alkaline Phosphatase (38-126) U/L Troponin I <0.012 <0.012 (0.000-0.034) ng/mL Total Protein (6.3-8.2) g/dL Albumin (3.5-5.0) g/dL Amylase (30-110) U/L Lipase (23-300) U/L Disposition Clinical Impression: Atypical chest pain Disposition: HOME SELF-CARE Condition: Good Instructions (If sedation given, give patient instructions): Chest Pain (ED), Costochondritis (ED) Additional Instructions: Please follow-up with your information assoc in the next 1-2 days. Return here for any worsening symptoms. Is patient prescribed a controlled substance at d/c from ED?: No Referrals: Viktoria Richardson MD [Primary Care Provider] - 1-2 days Time of Disposition: 18:35
[2018-11-01] MEDS ORDERED: ASPIRIN 81 MG PO STA (14:06)
[2018-11-01] MEDS ORDERED: SODIUM CHLORIDE 0.9% 500 ML 500 ML IV STA (14:06)
[2018-11-01 14:57] LABS: Basophils # (A) 0.1 k/uL (0-0.2); Basophils % (A) 1 %; Eosinophils # (A) 0.2 k/uL (0-0.7); Eosinophils % (A) 2 %; HCT 43.3 % (39.0-53.0); HGB 15.6 gm/dL (13.0-17.5); Hyperchromasia Slight; Lymphocytes # (A) 1.9 k/uL (1.0-4.8); Lymphocytes % (A) 24 %; MCH 30.8 pg (25.0-35.0); MCHC 36.1 g/dL (31.0-37.0); MCV 85.4 fL (80.0-100.0); Mean Platelet Volume 8.1; Monocytes # (A) 0.6 k/uL (0-1.0); Monocytes % (A) 7 %; Neutrophils % (A) 63 %; Platelet Count 263 k/uL (150-450); RBC 5.07 m/uL (4.30-5.90); RDW 14.8 % (11.5-15.5); WBC 7.9 k/uL (3.8-10.6)
[2018-11-01 15:10] LABS: ALT 27 U/L (21-72); AST 30 U/L (17-59); African American GFR (CKD) >90 (>60 ml/min/1.73 sqM); Albumin 4.6 g/dL (3.5-5.0); Alkaline Phosphatase 59 U/L (38-126); Amylase 60 U/L (30-110); Anion Gap 11 mmol/L; Blood Urea Nitrogen 14 mg/dL (9-20); Calcium 9.2 mg/dL (8.4-10.2); Carbon Dioxide 23 mmol/L (22-30); Chloride 106 mmol/L (98-107); Glucose 89 mg/dL (74-99); Lipase 53 U/L (23-300); Potassium 3.4 mmol/L (3.5-5.1); Sodium 140 mmol/L (137-145); Total Bilirubin 0.8 mg/dL (0.2-1.3); Total Protein 7.5 g/dL (6.3-8.2)
[2018-11-01 15:13] LABS: D-Dimer 0.2 mg/L FEU (<0.60); Partial Thromboplastin Time 23.3 sec (22.0-30.0); Prothrombin Time 10.6 sec (9.0-12.0)
--- NOTE | 2018-11-01 15:20 | XR ---
EXAMINATION TYPE: XR chest 2V DATE OF EXAM: 11/01/2018 COMPARISON: 10/27/2018 HISTORY: Chest pain TECHNIQUE: Frontal and lateral views of the chest are obtained. FINDINGS: New mild peribronchial cuffing is seen along the bronchus intermedius. There is no focal a ir space opacity, pleural effusion, or pneumothorax seen. The cardiac silhouette size is within norm al limits. The osseous structures are intact. Mild multilevel degenerative changes of the thoracic spine are seen. IMPRESSION: New mild peribronchial cuffing along the bronchus intermedius that may reflect reactive airway disease or infectious airway disease such as bronchitis.
[2018-11-01] MEDS ORDERED: MORPHINE SULFATE 4 MG/ML SYRINGE IVP STA (15:28)
[2018-11-01] MEDS ORDERED: ASPIRIN 325 MG TAB PO STA (15:47)
[2018-11-01] MEDS ORDERED: KETOROLAC 30 MG/ML 1 ML VIAL IM STA (16:36)
[2018-11-01] MEDS ORDERED: KETOROLAC 30 MG/ML 1 ML VIAL IVP STA (16:37)
[2018-11-01 19:31] VITALS: BP 126/78; PULSE 88
== END 2018-11-01 19:30 | disposition home or self-care (01) ==
LOC: EC 13:41
DX: R07.89 Other chest pain (principal); R00.0 Tachycardia, unspecified; R06.02 Shortness of breath; I10 Essential (primary) hypertension; F31.9 Bipolar disorder, unspecified; F20.9 Schizophrenia, unspecified; G62.9 Polyneuropathy, unspecified; F17.200 Nicotine dependence, unspecified, uncomplicated; Z79.899 Other long term (current) drug therapy; Z88.6 Allergy status to analgesic agent; Z88.8 Allergy status to other drugs, medicaments and biological substances; Z95.5 Presence of coronary angioplasty implant and graft
CPT/HCPCS: 36415; 93005; 85379; 80053; 82150; 83690; 83735; 84484; 85025; 85610; 85730; 71046; 99285; 96374; 96375; 96361; J2270; J1885

== ENCOUNTER 2018-11-06 09:20 | Emergency (ER) | payer OTHER ==
[2018-11-06 09:24] VITALS: RESP 18
--- NOTE | 2018-11-06 10:18 | XR ---
EXAMINATION TYPE: XR chest 2V DATE OF EXAM: 11/06/2018 COMPARISON: 11/01/2018 TECHNIQUE: PA and lateral views submitted. HISTORY: Chest pain FINDINGS: The lungs are clear and there is no pneumothorax, pleural effusion, or focal pneumonia. Hypertrophi c and degenerative change of the spine. Mild hyperinflation the lungs. No overt failure. Atherosclero tic change aorta. Chronic deformity involving the left clavicle. IMPRESSION: 1. No acute process.
[2018-11-06 10:21] LABS: ALT 25 U/L (21-72); AST 26 U/L (17-59); African American GFR (CKD) >90 (>60 ml/min/1.73 sqM); Albumin 4.2 g/dL (3.5-5.0); Alkaline Phosphatase 52 U/L (38-126); Anion Gap 9 mmol/L; Blood Urea Nitrogen 12 mg/dL (9-20); Calcium 9.8 mg/dL (8.4-10.2); Carbon Dioxide 25 mmol/L (22-30); Chloride 105 mmol/L (98-107); Glucose 97 mg/dL (74-99); Magnesium 1.7 mg/dL (1.6-2.3); Potassium 3.3 mmol/L (3.5-5.1); Sodium 139 mmol/L (137-145); Total Bilirubin 0.6 mg/dL (0.2-1.3); Total Protein 6.9 g/dL (6.3-8.2)
[2018-11-06 10:29] LABS: Basophils % (A) 1 %; Eosinophils # (A) 0.2 k/uL (0-0.7); Eosinophils % (A) 3 %; HCT 39.8 % (39.0-53.0); HGB 14.7 gm/dL (13.0-17.5); Hyperchromasia Slight; Lymphocytes # (A) 1.6 k/uL (1.0-4.8); Lymphocytes % (A) 26 %; MCH 30.9 pg (25.0-35.0); MCHC 36.9 g/dL (31.0-37.0); MCV 83.9 fL (80.0-100.0); Mean Platelet Volume 8.2; Monocytes # (A) 0.6 k/uL (0-1.0); Monocytes % (A) 10 %; Neutrophils # (A) 3.6 k/uL (1.3-7.7); Neutrophils % (A) 59 %; Platelet Count 231 k/uL (150-450); RBC 4.74 m/uL (4.30-5.90); RDW 14.5 % (11.5-15.5); WBC 6.1 k/uL (3.8-10.6)
[2018-11-06 10:30] LABS: Partial Thromboplastin Time 24.4 sec (22.0-30.0); Prothrombin Time 10.5 sec (9.0-12.0)
--- NOTE | 2018-11-06 10:53 | ED ---
General Adult HPI - General Chief complaint: Chest Pain Stated complaint: chest pain, maría Time Seen by Provider: 11/06/18 09:20 Source: patient, RN notes reviewed Mode of arrival: wheelchair Limitations: no limitations - History of Present Illness Initial comments: This is a 48-year-old male who has past history of hyperlipidemia and hypertension. Patient states he's been having sharp left-sided chest pain that is intermittent and worse with outpatient and worse with deep breathing. Patient states he doesn't cardiology appointment coming up but this pain keeps coming back to keep coming to the emergency department. Patient states he has had no diaphoretic episode. Patient denies shortness of breath it does however her when takes a deep breath. Patient denies any nausea. Patient denies abdominal pain patient denies any recent fever chills or cough. Patient denies any lower extremity edema or any calf pain. Patient states just sitting in bed Without taking deep breaths he has no pain whatsoever - Related Data Home Medications Medication Instructions Recorded Confirmed Lurasidone HCl [Latuda] 60 mg PO HS 08/15/18 11/06/18 Gabapentin 800 mg PO TID 10/28/18 11/06/18 Lurasidone [Latuda] 40 mg PO HS 10/28/18 11/06/18 Mirtazapine [Remeron] 30 mg PO HS 10/28/18 11/06/18 QUEtiapine FUMARATE [SEROquel] 200 mg PO HS 10/28/18 11/06/18 clonazePAM [KlonoPIN] 0.5 mg PO TID 10/28/18 11/06/18 rOPINIRole HCL [Requip] 1 mg PO HS 10/28/18 11/06/18 traMADol HCL [Ultram] 50 mg PO BID PRN 10/28/18 11/06/18 Allergies Allergy/AdvReac Type Severity Reaction Status Date / Time ibuprofen [From Motrin] AdvReac Nausea & Verified 11/06/18 09:47 Vomiting simvastatin [From Zocor] AdvReac Dizziness Verified 11/06/18 09:47 Review of Systems ROS Statement: Those systems with pertinent positive or pertinent negative responses have been documented in the HPI. ROS Other: All systems not noted in ROS Statement are negative. Past Medical History Past Medical History: Atrial Fibrillation, COPD, Hyperlipidemia, Hypertension, Pneumonia Additional Past Medical History / Comment(s): Pt recently admitted to [facility] on 07/04/18 with L lower pneumonia. Other HX; Costochondritis, chronic pain, chronic low back pain with bilateral sciatica, neuropathy bilateral hands/feet, migraines, kidney stones, past partial small bowel obstruction. History of Any Multi-Drug Resistant Organisms: MRSA Date of last positivie culture/infection: 04/10/18 MDRO Source:: TOE Past Surgical History: Heart Catheterization, Orthopedic Surgery Additional Past Surgical History / Comment(s): 03/14/18 Cardiac cath-normal coronaries, L shoulder rotator cuff repair x2, cervical injection. Past Anesthesia/Blood Transfusion Reactions: No Reported Reaction Past Psychological History: Bipolar, Depression, Schizophrenia Smoking Status: Current every day smoker Past Alcohol Use History: None Reported Past Drug Use History: Marijuana - Past Family History Father Family Medical History: Myocardial Infarction ([place]) Additional Family Medical History / Comment(s): mi at age 35, still living Mother Family Medical History: Myocardial Infarction ([place]) Additional Family Medical History / Comment(s): Mother has had at least one [place]- pt unsure at what age. He has not had much contact with his mother since he was 17 yrs old. General Exam - General Exam Comments Initial Comments: GENERAL: Patient is well-developed and well-nourished. Patient is nontoxic and well- hydrated and is in no acute distress. ENT: Neck is soft and supple. No significant lymphadenopathy is noted. Oropharynx is clear. Moist mucous membranes. Neck has full range of motion without eliciting any pain. EYES: The sclera were anicteric and conjunctiva were pink and moist. Extraocular movements were intact and pupils were equal round and reactive to light. Eyelids were unremarkable. PULMONARY: Unlabored respirations. Good breath sounds bilaterally. No audible rales rhonchi or wheezing was noted. CARDIOVASCULAR: There is a regular rate and rhythm without any murmurs gallops or rubs. Patient's chest pain is reproducible with palpation ABDOMEN: Soft and nontender with normal bowel sounds. No palpable organomegaly was noted. There is no palpable pulsatile mass. SKIN: Skin is clear with no lesions or rashes and otherwise unremarkable. NEUROLOGIC: Patient is alert and oriented x3. Cranial nerves II through XII are grossly intact. Motor and sensory are also intact. Normal speech, volume and content. Symmetrical smile. MUSCULOSKELETAL: Normal extremities with adequate strength and full range of motion. No lower extremity swelling or edema. No calf tenderness. LYMPHATICS: No significant lymphadenopathy is noted PSYCHIATRIC: Normal psychiatric evaluation. Limitations: no limitations Course Vital Signs 11/06/18 11/06/18 09:23 10:03 Temperature 98.3 F Pulse Rate 108 H Pulse Rate [ 95 [employer] ] Respiratory 18 Rate Blood Pressure 126/75 O2 Sat by Pulse 97 Oximetry Medical Decision Making - Medical Decision Making EKG shows normal sinus rhythm at 85 bpm PA interval is 182 QRS is 98 QT interval 390 QTC is 464 per patient's EKG shows no ST segment elevation. Patient does have some slight ST segment depression in leads V3 through V6 which was seen in previous EKG. Chest x-ray shows no acute normalities. I reviewed the patient's previous cath which was on 1118. And it was normal. I will back into reevaluate the patient was feeling better and was only having pain with deep breathing - Lab Data Result diagrams: 11/06/18 10:00 11/06/18 10:00 Lab Results 11/06/18 11/06/18 11/06/18 Range/Units 10:00 10:00 10:00 WBC 6.1 (3.8-10.6) k/uL RBC 4.74 (4.30-5.90) m/uL Hgb 14.7 (13.0-17.5) gm/dL Hct 39.8 (39.0-53.0) % MCV 83.9 (80.0-100.0) fL MCH 30.9 (25.0-35.0) pg MCHC 36.9 (31.0-37.0) g/dL RDW 14.5 (11.5-15.5) % Plt Count 231 (150-450) k/uL Neutrophils % 59 % Lymphocytes % 26 % Monocytes % 10 % Eosinophils % 3 % Basophils % 1 % Neutrophils # 3.6 (1.3-7.7) k/uL Lymphocytes # 1.6 (1.0-4.8) k/uL Monocytes # 0.6 (0-1.0) k/uL Eosinophils # 0.2 (0-0.7) k/uL Basophils # 0.0 (0-0.2) k/uL Hyperchromasia Slight PT 10.5 (9.0-12.0) sec INR 1.0 (<1.2) APTT 24.4 (22.0-30.0) sec Sodium 139 (137-145) mmol/L Potassium 3.3 L (3.5-5.1) mmol/L Chloride 105 (98-107) mmol/L Carbon Dioxide 25 (22-30) mmol/L Anion Gap 9 mmol/L BUN 12 (9-20) mg/dL Creatinine 0.90 (0.66-1.25) mg/dL Est GFR (CKD-EPI)AfAm >90 (>60 ml/min/1.73 sqM) Est GFR (CKD-EPI)NonAf >90 (>60 ml/min/1.73 sqM) Glucose 97 (74-99) mg/dL Calcium 9.8 (8.4-10.2) mg/dL Magnesium 1.7 (1.6-2.3) mg/dL Total Bilirubin 0.6 (0.2-1.3) mg/dL AST 26 (17-59) U/L ALT 25 (21-72) U/L Alkaline Phosphatase 52 (38-126) U/L Total Protein 6.9 (6.3-8.2) g/dL Albumin 4.2 (3.5-5.0) g/dL Disposition Clinical Impression: Pleuritic chest pain Disposition: HOME SELF-CARE Condition: Good Instructions (If sedation given, give patient instructions): Chest Wall Pain (ED) Is patient prescribed a controlled substance at d/c from ED?: No Referrals: Viktoria Richardson MD [Primary Care Provider] - 1-2 days Time of Disposition: 10:56
[2018-11-06 11:14] VITALS: BP 129/94; PULSE 73; TEMP 98
== END 2018-11-06 11:15 | disposition home or self-care (01) ==
LOC: EC 09:20
DX: R07.81 Pleurodynia (principal); R06.00 Dyspnea, unspecified; I10 Essential (primary) hypertension; F31.9 Bipolar disorder, unspecified; F20.9 Schizophrenia, unspecified; G62.9 Polyneuropathy, unspecified; F17.200 Nicotine dependence, unspecified, uncomplicated; Z87.01 Personal history of pneumonia (recurrent); Z87.19 Personal history of other diseases of the digestive system; Z86.14 Personal history of Methicillin resistant Staphylococcus aureus infection; Z86.69 Personal history of other diseases of the nervous system and sense organs; Z87.442 Personal history of urinary calculi; Z98.890 Other specified postprocedural states; Z88.6 Allergy status to analgesic agent; Z88.8 Allergy status to other drugs, medicaments and biological substances
CPT/HCPCS: 36415; 71046; 80053; 83735; 84484; 85025; 85610; 85730; 93005; 99285

== ENCOUNTER 2018-11-18 21:57 | Emergency (ER) | payer OTHER ==
[2018-11-18 22:08] VITALS: RESP 18
[2018-11-18] MEDS ORDERED: HYDROCHLOROTHIAZIDE 25 MG TAB PO STA (22:42)
[2018-11-18 22:47] LABS: Basophils # (A) 0.1 k/uL (0-0.2); Basophils % (A) 1 %; Eosinophils # (A) 0.2 k/uL (0-0.7); Eosinophils % (A) 3 %; HCT 38.6 % (39.0-53.0); HGB 13.6 gm/dL (13.0-17.5); Lymphocytes # (A) 2.1 k/uL (1.0-4.8); Lymphocytes % (A) 26 %; MCH 30.8 pg (25.0-35.0); MCHC 35.2 g/dL (31.0-37.0); MCV 87.4 fL (80.0-100.0); Mean Platelet Volume 8.6; Monocytes # (A) 0.7 k/uL (0-1.0); Monocytes % (A) 9 %; Neutrophils # (A) 4.9 k/uL (1.3-7.7); Neutrophils % (A) 60 %; Platelet Count 169 k/uL (150-450); RBC 4.42 m/uL (4.30-5.90); RDW 15.8 % (11.5-15.5); WBC 8.2 k/uL (3.8-10.6)
[2018-11-18 22:51] LABS: INR 0.9 (<1.2); Partial Thromboplastin Time 23.1 sec (22.0-30.0); Prothrombin Time 10.2 sec (9.0-12.0)
[2018-11-18 22:52] LABS: ALT 25 U/L (21-72); AST 26 U/L (17-59); African American GFR (CKD) >90 (>60 ml/min/1.73 sqM); Albumin 3.8 g/dL (3.5-5.0); Alkaline Phosphatase 47 U/L (38-126); Anion Gap 7 mmol/L; Blood Urea Nitrogen 11 mg/dL (9-20); Calcium 8.8 mg/dL (8.4-10.2); Carbon Dioxide 27 mmol/L (22-30); Chloride 105 mmol/L (98-107); Glucose 102 mg/dL (74-99); Magnesium 1.8 mg/dL (1.6-2.3); Potassium 3.7 mmol/L (3.5-5.1); Sodium 139 mmol/L (137-145); Total Bilirubin 0.3 mg/dL (0.2-1.3); Total Protein 6.4 g/dL (6.3-8.2)
--- NOTE | 2018-11-18 22:58 | XR ---
EXAM: XR Chest, 2 Views CLINICAL HISTORY: ITS.REASON XR Reason: Chest Pain TECHNIQUE: Frontal and lateral views of the chest. COMPARISON: No relevant prior studies available. FINDINGS: Lungs: Unremarkable. No consolidation. Pleural space: Unremarkable. No pneumothorax. Heart: No suspicious enlargement. Mediastinum: Unremarkable. Bones/joints: No acute fracture. IMPRESSION: No acute findings.
--- NOTE | 2018-11-19 00:09 | ED ---
General Adult HPI - General Source: patient, EMS, RN notes reviewed, old records reviewed Mode of arrival: EMS <Betito Pool - Last Filed: 11/18/18 23:58> <Bay Angela - Last Filed: 11/19/18 00:38> - General Chief complaint: Extremity Problem,Nontraumatic Stated complaint: Bilateral Leg Swelling Time Seen by Provider: 11/18/18 22:28 - History of Present Illness Initial comments: 48-year-old male patient past medical history of CHF, COPD presents to ED for bilateral lower leg edema. Patient reports that he is on hydrochlorothiazide 50 mg per day. Patient ports that he ran out of this medication 4 days ago. Patient reports that he has a 2 days of lower extremities without swelling bilaterally. Patient reports that the swelling does cause him some discomfort. Patient denies any other complaints at this time. Denies any chest pain shortness of breath abdominal pain nausea vomiting or diarrhea. Systemic: Pt denies fatigue, fever/chills, rash. Pt denies weakness, night sweats, weight loss. Neuro: Pt denies headache, visual disturbances, syncope or pre-syncope. HEENT: Pt denies ocular discharge or irritation, otalgia, rhinorrhea, pharyngitis or notable lymphadenopathy. Cardiopulmonary: Pt denies chest pain, SOB, heart palpitations, dyspnea on exertion. Abdominal/GI: Pt denies abdominal pain, n/v/d. : Pt denies dysuria, burning w/ urination, frequency/urgency. Denies new onset urinary or bowel incontinence. MSK: Pt denies myalgia, loss of strength or function in extremities. Neuro: Pt denies new onset weakness, paresthesias. (Betito Pool) - Related Data Home Medications Medication Instructions Recorded Confirmed Lurasidone HCl [Latuda] 60 mg PO HS 08/15/18 11/18/18 Gabapentin 800 mg PO TID 10/28/18 11/18/18 Lurasidone [Latuda] 40 mg PO HS 10/28/18 11/18/18 Mirtazapine [Remeron] 30 mg PO HS 10/28/18 11/18/18 QUEtiapine FUMARATE [SEROquel] 200 mg PO HS 10/28/18 11/18/18 clonazePAM [KlonoPIN] 0.5 mg PO TID 10/28/18 11/18/18 rOPINIRole HCL [Requip] 1 mg PO HS 10/28/18 11/18/18 traMADol HCL [Ultram] 50 mg PO BID PRN 10/28/18 11/18/18 Aspirin EC [Ecotrin Low Dose] 81 mg PO DAILY 11/18/18 11/18/18 Fluticasone/Salmeterol 1 puff INHALATION RT-DAILY PRN 11/18/18 11/18/18 [Fluticasone-Salmeterol 232-14] Hydrochlorothiazide 50 mg PO DAILY 11/18/18 11/18/18 Lisinopril 20 mg PO DAILY 11/18/18 11/18/18 amLODIPine [Norvasc] 10 mg PO DAILY 11/18/18 11/18/18 cloNIDine HCL [Catapres] 0.2 mg PO BID 11/18/18 11/18/18 lamoTRIgine [LaMICtal] 200 mg PO DAILY 11/18/18 11/18/18 traZODone HCL [Desyrel] 200 mg PO HS 11/18/18 11/18/18 Previous Rx's Medication Instructions Recorded Hydrochlorothiazide 25 mg PO Q12HR 10 Days #20 tablet 11/19/18 Allergies Allergy/AdvReac Type Severity Reaction Status Date / Time ibuprofen [From Motrin] AdvReac Nausea & Verified 11/18/18 22:20 Vomiting simvastatin [From Zocor] AdvReac Dizziness Verified 11/18/18 22:20 Review of Systems ROS Other: All systems not noted in ROS Statement are negative. <Betito Pool - Last Filed: 11/18/18 23:58> ROS Other: All systems not noted in ROS Statement are negative. <Bay Angela - Last Filed: 11/19/18 00:38> ROS Statement: Those systems with pertinent positive or pertinent negative responses have been documented in the HPI. Past Medical History Past Medical History: Atrial Fibrillation, COPD, Hyperlipidemia, Hypertension, Pneumonia Additional Past Medical History / Comment(s): Pt recently admitted to [facility] on 07/04/18 with L lower pneumonia. Other HX; Costochondritis, chronic pain, chronic low back pain with bilateral sciatica, neuropathy bilateral hands/feet, migraines, kidney stones, past partial small bowel obstruction. History of Any Multi-Drug Resistant Organisms: MRSA Date of last positivie culture/infection: 04/10/18 MDRO Source:: TOE Past Surgical History: Heart Catheterization, Orthopedic Surgery Additional Past Surgical History / Comment(s): 03/14/18 Cardiac cath-normal coronaries, L shoulder rotator cuff repair x2, cervical injection. Past Anesthesia/Blood Transfusion Reactions: No Reported Reaction Past Psychological History: Bipolar, Depression, Schizophrenia Smoking Status: Current every day smoker Past Alcohol Use History: None Reported Past Drug Use History: Marijuana - Past Family History Father Family Medical History: Myocardial Infarction ([place]) Additional Family Medical History / Comment(s): mi at age 35, still living Mother Family Medical History: Myocardial Infarction (ME) Additional Family Medical History / Comment(s): Mother has had at least one ME- pt unsure at what age. He has not had much contact with his mother since he was 17 yrs old. <Betito Pool - Last Filed: 11/18/18 23:58> General Exam <Betito Pool - Last Filed: 11/18/18 23:58> - General Exam Comments Initial Comments: Constitutional: NAD, AOX3, Pt has pleasant affect. HEENT: NC/AT, trachea midline, neck supple, no lymphadenopathy. Posterior pharynx non erythematous, without exudates. External ears appear normal, without discharge. Mucous membranes moist. Eyes PERRLA, EOM intact. There is no scleral icterus. No pallor noted. Cardiopulmonary: RRR, no murmurs, rubs or gallops, no JVD noted. Lungs CTAB in anterior and posterior narayanan. +2 peripheral edema lower extremities bilaterally. Abdominal exam: Abdomen soft and non-distended. Abdomen non-tender to palpation in all 4 quadrants. Bowel sounds active in LLQ. No hepatosplenomegaly. No ecchymosis Neuro: CN II-XII grossly intact. No nuchal rigidity. No raccon eyes, no bills sign, no hemotympanum. No cervical spinal tenderness. MSK: No posterior calf tenderness bilaterally, homans sign negative bilaterally. No erythema. Posterior tibialis and radial pulse +2 bilaterally. Sensation intact in upper and lower extremities. Full active ROM in upper and lower extremities, 5/5 stregnth. (Betito Pool) Course Vital Signs 0711/18/18 11/19/18 21:59 23:08 00:25 Temperature 98.3 F 97.3 F L 98 F Pulse Rate 80 68 72 Respiratory 18 18 18 Rate Blood Pressure 145/88 121/76 132/89 O2 Sat by Pulse 98 99 100 Oximetry Medical Decision Making - Lab Data Result diagrams: 11/18/18 22:14 11/18/18 22:14 - EKG Data -: EKG Interpreted by Me (and Dr. Lechuga) <Betito Pool - Last Filed: 11/18/18 23:58> - Lab Data Result diagrams: 11/18/18 22:14 11/18/18 22:14 <Bay Angela - Last Filed: 11/19/18 00:38> - Medical Decision Making 48-year-old male patient passed no history of congestive heart failure presents ED for 4 days of lower extremity edema after running out of of diuretic. Patient vital signs stable, afebrile. Laboratory investigations noncompressive. Troponin negative. BNP 111. Chest x-ray revealed no acute process. EKG not concerning for acute ischemia. Patient given a prescription for his hctz. 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 Return precautiosn discussed, pt verbalized understanding. Case discussed and pt seen with Dr. Bernard alvarado. Wells score for DVT -1. (Betito Pool) I evaluated this patient and agree with PA management. Low risk for DVT, lower extremities are symmetric, no evidence of cardiac etiology. patient stable for discharge. Wells' Criteria for DVT from [email or web address] on 11/19/2018 All calculations should be rechecked by clinician prior to use RESULT SUMMARY: -2 points Low risk group for DVT. Unlikely according to Wells DVT studies. INPUTS: Active cancer > 0 = No Bedridden recently >3 days or major surgery within 12 weeks > 0 = No Calf swelling >3 cm compared to the other leg > 0 = No Collateral (nonvaricose) superficial veins present > 0 = No Entire leg swollen > 0 = No Localized tenderness along the deep venous system > 0 = No Pitting edema, confined to symptomatic leg > 0 = No Paralysis, paresis, or recent plaster immobilization of the lower extremity > 0 = No Previously documented DVT > 0 = No Alternative diagnosis to DVT as likely or more likely > -2 = Yes (Bay Angela) - Lab Data Lab Results 11/18/18 11/18/18 11/18/18 Range/Units 22:14 22:14 22:14 WBC 8.2 (3.8-10.6) k/uL RBC 4.42 (4.30-5.90) m/uL Hgb 13.6 (13.0-17.5) gm/dL Hct 38.6 L (39.0-53.0) % MCV 87.4 (80.0-100.0) fL MCH 30.8 (25.0-35.0) pg MCHC 35.2 (31.0-37.0) g/dL RDW 15.8 H (11.5-15.5) % Plt Count 169 (150-450) k/uL Neutrophils % 60 % Lymphocytes % 26 % Monocytes % 9 % Eosinophils % 3 % Basophils % 1 % Neutrophils # 4.9 (1.3-7.7) k/uL Lymphocytes # 2.1 (1.0-4.8) k/uL Monocytes # 0.7 (0-1.0) k/uL Eosinophils # 0.2 (0-0.7) k/uL Basophils # 0.1 (0-0.2) k/uL PT (9.0-12.0) sec INR (<1.2) APTT (22.0-30.0) sec Sodium 139 (137-145) mmol/L Potassium 3.7 (3.5-5.1) mmol/L Chloride 105 (98-107) mmol/L Carbon Dioxide 27 (22-30) mmol/L Anion Gap 7 mmol/L BUN 11 (9-20) mg/dL Creatinine 0.89 (0.66-1.25) mg/dL Est GFR (CKD-EPI)AfAm >90 (>60 ml/min/1.73 sqM) Est GFR (CKD-EPI)NonAf >90 (>60 ml/min/1.73 sqM) Glucose 102 H (74-99) mg/dL Calcium 8.8 (8.4-10.2) mg/dL Magnesium 1.8 (1.6-2.3) mg/dL Total Bilirubin 0.3 (0.2-1.3) mg/dL AST 26 (17-59) U/L ALT 25 (21-72) U/L Alkaline Phosphatase 47 (38-126) U/L Troponin I (0.000-0.034) ng/mL NT-Pro-B Natriuret Pep 111 pg/mL Total Protein 6.4 (6.3-8.2) g/dL Albumin 3.8 (3.5-5.0) g/dL 11/18/18 11/18/18 Range/Units 22:14 22:14 WBC (3.8-10.6) k/uL RBC (4.30-5.90) m/uL Hgb (13.0-17.5) gm/dL Hct (39.0-53.0) % MCV (80.0-100.0) fL MCH (25.0-35.0) pg MCHC (31.0-37.0) g/dL RDW (11.5-15.5) % Plt Count (150-450) k/uL Neutrophils % % Lymphocytes % % Monocytes % % Eosinophils % % Basophils % % Neutrophils # (1.3-7.7) k/uL Lymphocytes # (1.0-4.8) k/uL Monocytes # (0-1.0) k/uL Eosinophils # (0-0.7) k/uL Basophils # (0-0.2) k/uL PT 10.2 (9.0-12.0) sec INR 0.9 (<1.2) APTT 23.1 (22.0-30.0) sec Sodium (137-145) mmol/L Potassium (3.5-5.1) mmol/L Chloride (98-107) mmol/L Carbon Dioxide (22-30) mmol/L Anion Gap mmol/L BUN (9-20) mg/dL Creatinine (0.66-1.25) mg/dL Est GFR (CKD-EPI)AfAm (>60 ml/min/1.73 sqM) Est GFR (CKD-EPI)NonAf (>60 ml/min/1.73 sqM) Glucose (74-99) mg/dL Calcium (8.4-10.2) mg/dL Magnesium (1.6-2.3) mg/dL Total Bilirubin (0.2-1.3) mg/dL AST (17-59) U/L ALT (21-72) U/L Alkaline Phosphatase (38-126) U/L Troponin I <0.012 (0.000-0.034) ng/mL NT-Pro-B Natriuret Pep pg/mL Total Protein (6.3-8.2) g/dL Albumin (3.5-5.0) g/dL - EKG Data EKG Comments: Ventricular rate 75,. Full 168, QRS 96, QT/QTC 392 cm 437. No sinus rhythm with sinus arrhythmia, low-voltage criteria for LVH, may be normal. EKG, no concern for acute ischemia at this time. (Betito Pool) Disposition Is patient prescribed a controlled substance at d/c from ED?: No <Betito Pool - Last Filed: 11/18/18 23:58> <Bay Angela - Last Filed: 11/19/18 00:38> Clinical Impression: Lower leg edema Disposition: HOME SELF-CARE Condition: Stable Additional Instructions: Patient to adhere to previously discussed treatment plan and will take medication(s) as directed. Patient to follow up with PCP in 1-2 days. Patient to return to ED if symptoms do not improve. Take medication as directed. Follow up with primary care provider and urologist tomorrow. Return to ER if condition worsens. Prescriptions: Hydrochlorothiazide 25 mg PO Q12HR 10 Days #20 tablet Referrals: Viktoria Richardson MD [Primary Care Provider] - 1-2 days
[2018-11-19 00:26] VITALS: BP 132/89; PULSE 72; TEMP 98
== END 2018-11-19 00:25 | disposition home or self-care (01) ==
LOC: EC 21:57
DX: R60.0 Localized edema (principal); J44.9 Chronic obstructive pulmonary disease, unspecified; I11.0 Hypertensive heart disease with heart failure; I50.9 Heart failure, unspecified; G89.29 Other chronic pain; F20.9 Schizophrenia, unspecified; F31.9 Bipolar disorder, unspecified; F17.200 Nicotine dependence, unspecified, uncomplicated; Z88.6 Allergy status to analgesic agent; Z88.8 Allergy status to other drugs, medicaments and biological substances; Z79.82 Long term (current) use of aspirin; Z79.899 Other long term (current) drug therapy; Z86.14 Personal history of Methicillin resistant Staphylococcus aureus infection; Z86.69 Personal history of other diseases of the nervous system and sense organs; Z95.818 Presence of other cardiac implants and grafts
CPT/HCPCS: 36415; 71046; 80053; 83735; 83880; 84484; 85025; 85610; 85730; 93005; 99284

== ENCOUNTER 2018-12-25 11:47 | Emergency (ER) | payer OTHER ==
[2018-12-25 11:50] VITALS: TEMP 97.5
[2018-12-25] MEDS ORDERED: FUROSEMIDE 10 MG/ML 4 ML VIAL IV STA (12:13)
[2018-12-25 12:58] VITALS: RESP 16
[2018-12-25 13:10] LABS: ALT 22 U/L (21-72); AST 27 U/L (17-59); African American GFR (CKD) >90 (>60 ml/min/1.73 sqM); Albumin 3.6 g/dL (3.5-5.0); Alkaline Phosphatase 47 U/L (38-126); Anion Gap 8 mmol/L; Blood Urea Nitrogen 12 mg/dL (9-20); Calcium 8.9 mg/dL (8.4-10.2); Carbon Dioxide 22 mmol/L (22-30); Chloride 110 mmol/L (98-107); Creatine Kinase 168 U/L (55-170); Glucose 86 mg/dL (74-99); Magnesium 1.8 mg/dL (1.6-2.3); Potassium 4.1 mmol/L (3.5-5.1); Sodium 140 mmol/L (137-145); Total Bilirubin 0.4 mg/dL (0.2-1.3); Total Protein 6.3 g/dL (6.3-8.2)
[2018-12-25 13:11] LABS: INR 0.9 (<1.2); Partial Thromboplastin Time 24.3 sec (22.0-30.0); Prothrombin Time 9.9 sec (9.0-12.0)
[2018-12-25 13:20] LABS: Basophils % (A) 0 %; Eosinophils # (A) 0.2 k/uL (0-0.7); Eosinophils % (A) 4 %; HCT 40.2 % (39.0-53.0); HGB 14.2 gm/dL (13.0-17.5); Lymphocytes # (A) 1.4 k/uL (1.0-4.8); Lymphocytes % (A) 20 %; MCH 31.5 pg (25.0-35.0); MCHC 35.3 g/dL (31.0-37.0); MCV 89.2 fL (80.0-100.0); Mean Platelet Volume 8.1; Monocytes # (A) 0.6 k/uL (0-1.0); Monocytes % (A) 10 %; Neutrophils # (A) 4.3 k/uL (1.3-7.7); Neutrophils % (A) 64 %; Platelet Count 177 k/uL (150-450); RBC 4.51 m/uL (4.30-5.90); RDW 14.3 % (11.5-15.5); WBC 6.7 k/uL (3.8-10.6)
--- NOTE | 2018-12-25 13:22 | ED ---
Extremity Problem HPI - General Chief complaint: Extremity Problem,Nontraumatic Stated complaint: Feet swelling Time Seen by Provider: 12/25/18 11:52 Source: patient, RN notes reviewed, old records reviewed Mode of arrival: wheelchair Limitations: no limitations - History of Present Illness Initial comments: This is a 48-year-old male the ER for evaluation. They presents for evaluation regarding lower extremity edema. Patient states he always also has chest pain. Patient's well-known to this facility for multiple different complications psychiatric and medical. Patient states the swelling is increased or last 2 days. No recent travel history no sick contacts no shortness of breath currently. MD Complaint: extremity pain, extremity swelling, other (Bilateral lower extremity) -: days(s) (2) Location: lower extremity, bilateral lower extremity History of Same: Yes Radiation: none Severity scale (1-10): 3 Quality: aching Consistency: constant Improves with: nothing Worsens with: nothing Associated Symptoms: denies other symptoms - Related Data Home Medications Medication Instructions Recorded Confirmed Lurasidone HCl [Latuda] 60 mg PO HS 08/15/18 12/25/18 Gabapentin 800 mg PO TID 10/28/18 12/25/18 Lurasidone [Latuda] 40 mg PO HS 10/28/18 12/25/18 Mirtazapine [Remeron] 30 mg PO HS 10/28/18 12/25/18 QUEtiapine FUMARATE [SEROquel] 200 mg PO HS 10/28/18 12/25/18 clonazePAM [KlonoPIN] 0.5 mg PO TID 10/28/18 12/25/18 rOPINIRole HCL [Requip] 1 mg PO HS 10/28/18 12/25/18 traMADol HCL [Ultram] 50 mg PO BID PRN 10/28/18 12/25/18 Aspirin EC [Ecotrin Low Dose] 81 mg PO DAILY 11/18/18 12/25/18 Fluticasone/Salmeterol 1 puff INHALATION RT-DAILY PRN 11/18/18 12/25/18 [Fluticasone-Salmeterol 232-14] Hydrochlorothiazide 50 mg PO DAILY 11/18/18 12/25/18 Lisinopril 20 mg PO DAILY 11/18/18 12/25/18 amLODIPine [Norvasc] 10 mg PO DAILY 11/18/18 12/25/18 cloNIDine HCL [Catapres] 0.2 mg PO BID 11/18/18 12/25/18 lamoTRIgine [LaMICtal] 200 mg PO DAILY 11/18/18 12/25/18 traZODone HCL [Desyrel] 200 mg PO HS 11/18/18 12/25/18 Previous Rx's Medication Instructions Recorded Hydrochlorothiazide 25 mg PO Q12HR 10 Days #20 tablet 11/19/18 Allergies Allergy/AdvReac Type Severity Reaction Status Date / Time ibuprofen [From Motrin] AdvReac Nausea & Verified 12/25/18 11:56 Vomiting simvastatin [From Zocor] AdvReac Dizziness Verified 12/25/18 11:56 Review of Systems ROS Statement: Those systems with pertinent positive or pertinent negative responses have been documented in the HPI. ROS Other: All systems not noted in ROS Statement are negative. Past Medical History Past Medical History: Atrial Fibrillation, COPD, Hyperlipidemia, Hypertension, Pneumonia Additional Past Medical History / Comment(s): Pt recently admitted to [facility] on 07/04/18 with L lower pneumonia. Other HX; Costochondritis, chronic pain, chronic low back pain with bilateral sciatica, neuropathy bilateral hands/feet, migraines, kidney stones, past partial small bowel obstruction. History of Any Multi-Drug Resistant Organisms: MRSA Date of last positivie culture/infection: 04/10/18 MDRO Source:: TOE Past Surgical History: Heart Catheterization, Orthopedic Surgery Additional Past Surgical History / Comment(s): 03/14/18 Cardiac cath-normal coronaries, L shoulder rotator cuff repair x2, cervical injection. Past Anesthesia/Blood Transfusion Reactions: No Reported Reaction Past Psychological History: Bipolar, Depression, Schizophrenia Smoking Status: Current every day smoker Past Alcohol Use History: None Reported Past Drug Use History: Marijuana - Past Family History Father Family Medical History: Myocardial Infarction (NV) Additional Family Medical History / Comment(s): mi at age 35, still living Mother Family Medical History: Myocardial Infarction (NV) Additional Family Medical History / Comment(s): Mother has had at least one NV- pt unsure at what age. He has not had much contact with his mother since he was 17 yrs old. General Exam Limitations: no limitations General appearance: alert, in no apparent distress Head exam: Present: atraumatic, normocephalic, normal inspection Eye exam: Present: normal appearance, PERRL, EOMI. Absent: scleral icterus, conjunctival injection, periorbital swelling ENT exam: Present: normal exam, mucous membranes moist Neck exam: Present: normal inspection. Absent: tenderness, meningismus, lymphadenopathy Respiratory exam: Present: normal lung sounds bilaterally. Absent: respiratory distress, wheezes, rales, rhonchi, stridor Cardiovascular Exam: Present: regular rate, normal rhythm, normal heart sounds. Absent: systolic murmur, diastolic murmur, rubs, gallop, clicks GI/Abdominal exam: Present: soft, normal bowel sounds. Absent: distended, tenderness, guarding, rebound, rigid Extremities exam: Present: normal inspection, full ROM, normal capillary refill, other (Bilateral lower extremity edema 1+, tenderness). Absent: tenderness, pedal edema, joint swelling, calf tenderness Back exam: Present: normal inspection Neurological exam: Present: alert, oriented X3, CN II-XII intact Psychiatric exam: Present: normal affect, normal mood Skin exam: Present: warm, dry, intact, normal color. Absent: rash Course Vital Signs 12/25/18 12/25/18 12/25/18 11:49 12:55 14:00 Temperature 97.5 F L Pulse Rate 80 Respiratory 18 16 16 Rate Blood Pressure 167/102 O2 Sat by Pulse 98 Oximetry 12/25/18 14:31 Temperature Pulse Rate 75 Respiratory 16 Rate Blood Pressure 164/100 O2 Sat by Pulse 98 Oximetry - Reevaluation(s) Reevaluation #1: 12/25/18 15:15 Medical records reviewed Reevaluation #2: 12/25/18 15:15 Patient is without significant complaint Medical Decision Making - Medical Decision Making 48-year-old male the ER for evaluation of bilateral lower extremity edema. Patient is no DVT, test otherwise negative. Patient can be discharged home - Lab Data Result diagrams: 12/25/18 12:50 12/25/18 12:50 Lab Results 12/25/18 12/25/18 12/25/18 Range/Units 12:50 12:50 12:50 WBC 6.7 (3.8-10.6) k/uL RBC 4.51 (4.30-5.90) m/uL Hgb 14.2 (13.0-17.5) gm/dL Hct 40.2 (39.0-53.0) % MCV 89.2 (80.0-100.0) fL MCH 31.5 (25.0-35.0) pg MCHC 35.3 (31.0-37.0) g/dL RDW 14.3 (11.5-15.5) % Plt Count 177 (150-450) k/uL Neutrophils % 64 % Lymphocytes % 20 % Monocytes % 10 % Eosinophils % 4 % Basophils % 0 % Neutrophils # 4.3 (1.3-7.7) k/uL Lymphocytes # 1.4 (1.0-4.8) k/uL Monocytes # 0.6 (0-1.0) k/uL Eosinophils # 0.2 (0-0.7) k/uL Basophils # 0.0 (0-0.2) k/uL PT 9.9 (9.0-12.0) sec INR 0.9 (<1.2) APTT 24.3 (22.0-30.0) sec Sodium 140 (137-145) mmol/L Potassium 4.1 (3.5-5.1) mmol/L Chloride 110 H (98-107) mmol/L Carbon Dioxide 22 (22-30) mmol/L Anion Gap 8 mmol/L BUN 12 (9-20) mg/dL Creatinine 0.84 (0.66-1.25) mg/dL Est GFR (CKD-EPI)AfAm >90 (>60 ml/min/1.73 sqM) Est GFR (CKD-EPI)NonAf >90 (>60 ml/min/1.73 sqM) Glucose 86 (74-99) mg/dL Calcium 8.9 (8.4-10.2) mg/dL Magnesium 1.8 (1.6-2.3) mg/dL Total Bilirubin 0.4 (0.2-1.3) mg/dL AST 27 (17-59) U/L ALT 22 (21-72) U/L Alkaline Phosphatase 47 (38-126) U/L Creatine Kinase 168 (55-170) U/L Troponin I (0.000-0.034) ng/mL NT-Pro-B Natriuret Pep pg/mL Total Protein 6.3 (6.3-8.2) g/dL Albumin 3.6 (3.5-5.0) g/dL Lipase 65 (23-300) U/L 12/25/18 12/25/18 Range/Units 12:50 12:50 WBC (3.8-10.6) k/uL RBC (4.30-5.90) m/uL Hgb (13.0-17.5) gm/dL Hct (39.0-53.0) % MCV (80.0-100.0) fL MCH (25.0-35.0) pg MCHC (31.0-37.0) g/dL RDW (11.5-15.5) % Plt Count (150-450) k/uL Neutrophils % % Lymphocytes % % Monocytes % % Eosinophils % % Basophils % % Neutrophils # (1.3-7.7) k/uL Lymphocytes # (1.0-4.8) k/uL Monocytes # (0-1.0) k/uL Eosinophils # (0-0.7) k/uL Basophils # (0-0.2) k/uL PT (9.0-12.0) sec INR (<1.2) APTT (22.0-30.0) sec Sodium (137-145) mmol/L Potassium (3.5-5.1) mmol/L Chloride (98-107) mmol/L Carbon Dioxide (22-30) mmol/L Anion Gap mmol/L BUN (9-20) mg/dL Creatinine (0.66-1.25) mg/dL Est GFR (CKD-EPI)AfAm (>60 ml/min/1.73 sqM) Est GFR (CKD-EPI)NonAf (>60 ml/min/1.73 sqM) Glucose (74-99) mg/dL Calcium (8.4-10.2) mg/dL Magnesium (1.6-2.3) mg/dL Total Bilirubin (0.2-1.3) mg/dL AST (17-59) U/L ALT (21-72) U/L Alkaline Phosphatase (38-126) U/L Creatine Kinase (55-170) U/L Troponin I <0.012 (0.000-0.034) ng/mL NT-Pro-B Natriuret Pep 219 pg/mL Total Protein (6.3-8.2) g/dL Albumin (3.5-5.0) g/dL Lipase (23-300) U/L - EKG Data -: EKG Interpreted by Me (EKG shows rate of 76, ND 140, QRS 92, QTc 452) - Radiology Data Radiology results: report reviewed (Chest x-rays negative for CHF, bilateral lower extremity ultrasounds negative for DVT), image reviewed Disposition Clinical Impression: Bilateral leg edema Disposition: HOME SELF-CARE Condition: Good Instructions (If sedation given, give patient instructions): Leg Edema (ED) Is patient prescribed a controlled substance at d/c from ED?: No Referrals: Viktoria Richardson MD [Primary Care Provider] - 1-2 days
--- NOTE | 2018-12-25 13:54 | US ---
EXAMINATION TYPE: US venous doppler duplex LE BI DATE OF EXAM: 12/25/2018 1:44 PM COMPARISON: NONE CLINICAL HISTORY: Pain. Pain and edema SIDE PERFORMED: Bilateral TECHNIQUE: The lower extremity deep venous system is examined utilizing real time linear array sonog deon with graded compression, doppler sonography and color-flow sonography. VESSELS IMAGED: External Iliac Vein (EIV) Common Femoral Vein Deep Femoral Vein Greater Saphenous Vein * Femoral Vein Popliteal Vein Small Saphenous Vein * Proximal Calf Veins (* superficial vessels) Right Leg: Negative for DVT Left Leg: Negative for DVT No evidence of DVT bilateral legs. IMPRESSION: 1. Bilateral lower extremity ultrasound negative for deep venous thrombosis
--- NOTE | 2018-12-25 14:06 | XR ---
EXAMINATION TYPE: XR chest 2V DATE OF EXAM: 12/25/2018 COMPARISON: NONE HISTORY: Chest pain TECHNIQUE: Frontal and lateral views of the chest are obtained. FINDINGS: There is no focal air space opacity, pleural effusion, or pneumothorax seen. The cardiac silhouette size is within normal limits. The osseous structures are intact. IMPRESSION: No acute cardiopulmonary process.
[2018-12-25 14:32] VITALS: BP 164/100
[2018-12-25 15:25] VITALS: PULSE 78
== END 2018-12-25 15:20 | disposition home or self-care (01) ==
LOC: EC 11:47
DX: R60.0 Localized edema (principal); M79.604 Pain in right leg; M79.605 Pain in left leg; I48.91 Unspecified atrial fibrillation; J44.9 Chronic obstructive pulmonary disease, unspecified; I10 Essential (primary) hypertension; F31.9 Bipolar disorder, unspecified; F20.9 Schizophrenia, unspecified; F17.200 Nicotine dependence, unspecified, uncomplicated; Z86.14 Personal history of Methicillin resistant Staphylococcus aureus infection; Z95.818 Presence of other cardiac implants and grafts; Z79.82 Long term (current) use of aspirin; Z79.51 Long term (current) use of inhaled steroids; Z79.899 Other long term (current) drug therapy; Z88.6 Allergy status to analgesic agent; Z88.8 Allergy status to other drugs, medicaments and biological substances
CPT/HCPCS: 36415; 93005; 83880; 80053; 82550; 83690; 83735; 84484; 85025; 85610; 85730; 71046; 93970; 99284; 96374; J1940

== ENCOUNTER 2019-02-03 19:57 | Emergency (ER) | payer OTHER ==
--- NOTE | 2019-02-03 22:16 | ED ---
Psych HPI - General Chief Complaint: Psychiatric Symptoms Stated Complaint: Suicidal Source: patient Mode of arrival: ambulatory - History of Present Illness Initial Comments: Micky is a 48 year old gentleman with history of psychiatric illness who presents the ER today reporting that he is having thoughts of killing himself. Patient states that he is hearing voices in his head stating that he should kill himself. Patient states that he tried to run around front of traffic but wasn't successful so he came to the ER. Patient does state that he is currently homeless and OB once deliver them. [facility] reports [facility] has ran out. HEENT today. - Related Data Home Medications Medication Instructions Recorded Confirmed rOPINIRole HCL [Requip] 1 mg PO HS 10/28/18 02/03/19 Lisinopril 20 mg PO DAILY 11/18/18 02/03/19 amLODIPine [Norvasc] 10 mg PO DAILY 11/18/18 02/03/19 cloNIDine HCL [Catapres] 0.2 mg PO BID 11/18/18 02/03/19 traZODone HCL [Desyrel] 200 mg PO HS 11/18/18 02/03/19 Gabapentin [Neurontin] 400 mg PO TID 02/03/19 02/03/19 Hydrochlorothiazide 25 mg PO HS 02/03/19 02/03/19 Lurasidone [Latuda] 80 mg PO HS 02/03/19 02/03/19 Allergies Allergy/AdvReac Type Severity Reaction Status Date / Time ibuprofen [From Motrin] AdvReac Nausea & Verified 02/03/19 21:06 Vomiting simvastatin [From Zocor] AdvReac Dizziness Verified 02/03/19 21:06 Review of Systems ROS Statement: Those systems with pertinent positive or pertinent negative responses have been documented in the HPI. ROS Other: All systems not noted in ROS Statement are negative. Past Medical History Past Medical History: Atrial Fibrillation, COPD, Hyperlipidemia, Hypertension, Pneumonia Additional Past Medical History / Comment(s): Other HX; Costochondritis, chronic pain, chronic low back pain with bilateral sciatica, neuropathy bilateral hands/feet, migraines, kidney stones, past partial small bowel obstruction. History of Any Multi-Drug Resistant Organisms: MRSA Date of last positivie culture/infection: 04/10/18 MDRO Source:: TOE Past Surgical History: Heart Catheterization, Orthopedic Surgery Additional Past Surgical History / Comment(s): 03/14/18 Cardiac cath-normal coronaries, L shoulder rotator cuff repair x2, cervical injection. Past Anesthesia/Blood Transfusion Reactions: No Reported Reaction Past Psychological History: Bipolar, Depression, Schizophrenia Smoking Status: Current every day smoker Past Alcohol Use History: Abuse, Daily Past Drug Use History: Marijuana, Prescription Drug Abuse - Past Family History Father Family Medical History: Myocardial Infarction ([place]) Additional Family Medical History / Comment(s): mi at age 35, still living Mother Family Medical History: Myocardial Infarction ([place]) Additional Family Medical History / Comment(s): Mother has had at least one [place]- pt unsure at what age. He has not had much contact with his mother since he was 17 yrs old. General Exam - General Exam Comments Initial Comments: Physical Exam GENERAL: Patient is well-developed and well-nourished. Patient is nontoxic and well-hydrated and is in no distress. Poor personal hygiene HENT: Normocephalic, Atraumatic. EYES: PERRL, EOMI PULMONARY: Unlabored respirations. No audible rales rhonchi or wheezing was noted. CARDIOVASCULAR: There is a regular rate and rhythm without any murmurs gallops or rubs. ABDOMEN: Soft and nontender with normal bowel sounds. SKIN: Skin is clear with no lesions or rashes and otherwise unremarkable. : Deferred NEUROLOGIC: Patient is alert and oriented x3. Moving all extremities spontaneously MUSCULOSKELETAL: Normal extremities with adequate strength and full range of motion. No lower extremity swelling or edema. No calf tenderness. PSYCHIATRIC: Breast, suicidal, hopeless Limitations: no limitations Course Vital Signs 02/03/19 02/04/19 20:19 04:30 Temperature 98.8 F 97.8 F Pulse Rate 102 H 90 Respiratory 18 19 Rate Blood Pressure 159/101 158/95 O2 Sat by Pulse 97 98 Oximetry Medical Decision Making - Medical Decision Making Patient was seen and evaluated history is obtained from the patient Patient is acutely suicidal with a plan to run out in traffic, patient is medically cleared for evaluation by EPS Patient was evaluated by EPS who stated that the patient refuses to contract to safety and does repeatedly endorse suicidal thoughts therefore will be admitted. Unfortunately psychiatric beds are unavailable at this hospital at this time therefore the patient will likely be transferred. Labs are ordered for medical parents transfer facility. Was petitioned by the emergency psychiatric services nurse and I completed the psychiatric certification. - Lab Data Result diagrams: 02/03/19 22:53 02/03/19 22:53 Lab Results 02/03/19 02/03/19 02/03/19 Range/Units 21:06 22:53 22:53 WBC 8.9 (3.8-10.6) k/uL RBC 4.79 (4.30-5.90) m/uL Hgb 15.5 (13.0-17.5) gm/dL Hct 41.2 (39.0-53.0) % MCV 85.9 (80.0-100.0) fL MCH 32.3 (25.0-35.0) pg MCHC 37.6 H (31.0-37.0) g/dL RDW 13.5 (11.5-15.5) % Plt Count 217 (150-450) k/uL Neutrophils % 61 % Lymphocytes % 27 % Monocytes % 7 % Eosinophils % 3 % Basophils % 1 % Neutrophils # 5.4 (1.3-7.7) k/uL Lymphocytes # 2.4 (1.0-4.8) k/uL Monocytes # 0.6 (0-1.0) k/uL Eosinophils # 0.2 (0-0.7) k/uL Basophils # 0.1 (0-0.2) k/uL Sodium 139 (137-145) mmol/L Potassium 3.4 L (3.5-5.1) mmol/L Chloride 104 (98-107) mmol/L Carbon Dioxide 21 L (22-30) mmol/L Anion Gap 14 mmol/L BUN 8 L (9-20) mg/dL Creatinine 0.84 (0.66-1.25) mg/dL Est GFR (CKD-EPI)AfAm >90 (>60 ml/min/1.73 sqM) Est GFR (CKD-EPI)NonAf >90 (>60 ml/min/1.73 sqM) Glucose 90 (74-99) mg/dL Calcium 9.0 (8.4-10.2) mg/dL Total Bilirubin 0.5 (0.2-1.3) mg/dL AST 26 (17-59) U/L ALT 22 (21-72) U/L Alkaline Phosphatase 52 (38-126) U/L Total Protein 7.1 (6.3-8.2) g/dL Albumin 4.2 (3.5-5.0) g/dL Urine Opiates Screen Not Detected (NotDetected) Ur Oxycodone Screen Not Detected (NotDetected) Urine Methadone Screen Not Detected (NotDetected) Ur Propoxyphene Screen Not Detected (NotDetected) Ur Barbiturates Screen Not Detected (NotDetected) U Tricyclic Antidepress Not Detected (NotDetected) Ur Phencyclidine Scrn Not Detected (NotDetected) Ur Amphetamines Screen Detected H (NotDetected) U Methamphetamines Scrn Not Detected (NotDetected) U Benzodiazepines Scrn Not Detected (NotDetected) Urine Cocaine Screen Not Detected (NotDetected) U Marijuana (THC) Screen Detected H (NotDetected) Serum Alcohol 35 mg/dL Disposition Clinical Impression: Depression, Suicidal ideation Disposition: TRANSFER TO PSYCH HOSP/UNIT Condition: Fair Referrals: Viktoria Richardson MD [Primary Care Provider] - 1-2 days
[2019-02-03 23:03] LABS: Basophils # (A) 0.1 k/uL (0-0.2); Basophils % (A) 1 %; Eosinophils # (A) 0.2 k/uL (0-0.7); Eosinophils % (A) 3 %; HCT 41.2 % (39.0-53.0); HGB 15.5 gm/dL (13.0-17.5); Lymphocytes # (A) 2.4 k/uL (1.0-4.8); Lymphocytes % (A) 27 %; MCH 32.3 pg (25.0-35.0); MCHC 37.6 g/dL (31.0-37.0); MCV 85.9 fL (80.0-100.0); Mean Platelet Volume 6.7; Monocytes # (A) 0.6 k/uL (0-1.0); Monocytes % (A) 7 %; Neutrophils # (A) 5.4 k/uL (1.3-7.7); Neutrophils % (A) 61 %; Platelet Count 217 k/uL (150-450); RBC 4.79 m/uL (4.30-5.90); RDW 13.5 % (11.5-15.5); WBC 8.9 k/uL (3.8-10.6)
[2019-02-03 23:14] LABS: Amphetamine Screen,Urine Detected (NotDetected); Benzodiazepines Screen,Urine Not Detected (NotDetected); Cocaine Screen,Urine Not Detected (NotDetected); Opiate Screen,Urine Not Detected (NotDetected); Phencyclidine Screen,Urine Not Detected (NotDetected); Urn Cannabinoid Scrn Detected (NotDetected)
[2019-02-03 23:15] LABS: Barbiturate Screen,Urine Not Detected (NotDetected); Methadone Screen, Urine Not Detected (NotDetected); Oxycodone Screen, Urine Not Detected (NotDetected); Tricyclic Antidepressant,Urine Not Detected (NotDetected)
[2019-02-03 23:16] LABS: ALT 22 U/L (21-72); AST 26 U/L (17-59); African American GFR (CKD) >90 (>60 ml/min/1.73 sqM); Albumin 4.2 g/dL (3.5-5.0); Alcohol 35 mg/dL; Alkaline Phosphatase 52 U/L (38-126); Anion Gap 14 mmol/L; Blood Urea Nitrogen 8 mg/dL (9-20); Carbon Dioxide 21 mmol/L (22-30); Chloride 104 mmol/L (98-107); Glucose 90 mg/dL (74-99); Potassium 3.4 mmol/L (3.5-5.1); Sodium 139 mmol/L (137-145); Total Bilirubin 0.5 mg/dL (0.2-1.3); Total Protein 7.1 g/dL (6.3-8.2)
[2019-02-03] MEDS ORDERED: ACETAMINOPHEN TAB 325 MG TAB PO STA (23:51)
[2019-02-04] MEDS ORDERED: LURASIDONE 80 MG TAB PO SCH (01:40)
[2019-02-04] MEDS ORDERED: traZODone HCL 100 MG TAB PO SCH (01:40)
[2019-02-04] MEDS ORDERED: LURASIDONE 40 MG TAB PO SCH (02:08)
[2019-02-04 04:31] VITALS: RESP 19
[2019-02-04 08:23] VITALS: BP 155/90; PULSE 96; TEMP 97.7
[2019-02-04] MEDS ORDERED: amLODIPine 10 MG TAB PO SCH (09:00)
[2019-02-04] MEDS ORDERED: LISINOPRIL 20 MG TAB PO SCH (09:00)
[2019-02-04] MEDS ORDERED: GABAPENTIN 400 MG CAP PO SCH (09:00)
[2019-02-04] MEDS ORDERED: cloNIDine HCL 0.2 MG TAB PO SCH (09:00)
[2019-02-04] MEDS ORDERED: HYDROCHLOROTHIAZIDE 25 MG TAB PO SCH (21:00)
== END 2019-02-04 07:45 ==
LOC: EC 19:57
DX: F31.9 Bipolar disorder, unspecified (principal); R45.851 Suicidal ideations; I10 Essential (primary) hypertension; E78.5 Hyperlipidemia, unspecified; F20.9 Schizophrenia, unspecified; F17.200 Nicotine dependence, unspecified, uncomplicated; Z79.899 Other long term (current) drug therapy; Z88.6 Allergy status to analgesic agent; Z88.8 Allergy status to other drugs, medicaments and biological substances; Z95.5 Presence of coronary angioplasty implant and graft; Z59.0 Homelessness
CPT/HCPCS: 82075; 36415; 80053; 85025; 80306; 99285; G0480; 80320

== ENCOUNTER 2019-03-10 14:21 | Emergency (ER) | payer OTHER ==
[2019-03-10] MEDS ORDERED: ASPIRIN 81 MG PO STA (15:03)
[2019-03-10] MEDS ORDERED: NITROGLYCERIN OINT 1 INCH/GM PACKET TOPICAL STA (15:03)
--- NOTE | 2019-03-10 15:26 | ED ---
General Adult HPI - General Chief complaint: Psychiatric Symptoms Stated complaint: Chest pain, suicidal Time Seen by Provider: 03/10/19 14:30 Source: patient, RN notes reviewed, old records reviewed Mode of arrival: wheelchair Limitations: no limitations - History of Present Illness Initial comments: This is a 48-year-old male who presents emergency Department stating since chest is been having chest pain and some shortness of breath per patient states the chest pain radiates to the back. Patient states only last a few seconds and it sharp in nature. Patient states this is the pain he always has and is no different today. Recent states she's been worked up for this pain many times. Patient states he has had no diaphoretic episodes and denies any nausea. Patient states he has high blood pressure and he is a smoker. Patient denies diabetes or high cholesterol. Patient states he also is suicidal he is been that way for about 4 days. Patient states he has multiple times in the past. Patient denies any attempts today. Patient denies any illegal drugs. Patient denies any alcohol. Patient denies any headache patient denies numbness weakness per patient denies lightheadedness or dizziness. Patient denies any abdominal pain. Patient denies nausea vomiting diarrhea. - Related Data Home Medications Medication Instructions Recorded Confirmed rOPINIRole HCL [Requip] 1 mg PO HS 10/28/18 02/03/19 Lisinopril 20 mg PO DAILY 11/18/18 02/03/19 amLODIPine [Norvasc] 10 mg PO DAILY 11/18/18 02/03/19 cloNIDine HCL [Catapres] 0.2 mg PO BID 11/18/18 02/03/19 traZODone HCL [Desyrel] 200 mg PO HS 11/18/18 02/03/19 Gabapentin [Neurontin] 400 mg PO TID 02/03/19 02/03/19 Hydrochlorothiazide 25 mg PO HS 02/03/19 02/03/19 Lurasidone [Latuda] 80 mg PO HS 02/03/19 02/03/19 Allergies Allergy/AdvReac Type Severity Reaction Status Date / Time ibuprofen [From Motrin] AdvReac Nausea & Verified 03/10/19 14:26 Vomiting simvastatin [From Zocor] AdvReac Dizziness Verified 03/10/19 14:26 Review of Systems ROS Statement: Those systems with pertinent positive or pertinent negative responses have been documented in the HPI. ROS Other: All systems not noted in ROS Statement are negative. Past Medical History Past Medical History: Atrial Fibrillation, COPD, Hyperlipidemia, Hypertension, Pneumonia Additional Past Medical History / Comment(s): Other HX; Costochondritis, chronic pain, chronic low back pain with bilateral sciatica, neuropathy bilateral hands/feet, migraines, kidney stones, past partial small bowel obs truction. History of Any Multi-Drug Resistant Organisms: MRSA Date of last positivie culture/infection: 04/10/18 MDRO Source:: TOE Past Surgical History: Heart Catheterization, Orthopedic Surgery Additional Past Surgical History / Comment(s): 03/14/18 Cardiac cath-normal coron lesa, L shoulder rotator cuff repair x2, cervical injection. Past Anesthesia/Blood Transfusion Reactions: No Reported Reaction Past Psychological History: Bipolar, Depression, Schizophrenia Smoking Status: Current every day smoker Past Alcohol Use History: Abuse, Daily Past Drug Use History: Marijuana, Prescription Drug Abuse - Past Family History Father Family Medical History: Myocardial Infarction ([place]) Additional Family Medical History / Comment(s): mi at age 35, still living Mother Family Medical History: Myocardial Infarction ([place]) Additional Family Medical History / Comment(s): Mother has had at least one [place]- pt unsure at what age. He has not had much contact with his mother since he was 17 yrs old. General Exam - General Exam Comments Initial Comments: GENERAL: Patient is well-developed and well-nourished. Patient is nontoxic and well- hydrated and is in no acute distress. ENT: Neck is soft and supple. No significant lymphadenopathy is noted. Oropharynx is clear. Moist mucous membranes. Neck has full range of motion without eliciting any pain. EYES: The sclera were anicteric and conjunctiva were pink and moist. Extraocular movements were intact and pupils were equal round and reactive to light. Eyelids were unremarkable. PULMONARY: Unlabored respirations. Good breath sounds bilaterally. No audible rales rhonchi or wheezing was noted. CARDIOVASCULAR: There is a regular rate and rhythm without any murmurs gallops or rubs. ABDOMEN: Soft and nontender with normal bowel sounds. No palpable organomegaly was noted. There is no palpable pulsatile mass. SKIN: Skin is clear with no lesions or rashes and otherwise unremarkable. NEUROLOGIC: Patient is alert and oriented x3. Cranial nerves II through XII are grossly intact. Motor and sensory are also intact. Normal speech, volume and content. Symmetrical smile. MUSCULOSKELETAL: Normal extremities with adequate strength and full range of motion. No lower extremity swelling or edema. No calf tenderness. LYMPHATICS: No significant lymphadenopathy is noted PSYCHIATRIC: Normal psychiatric evaluation. Limitations: no limitations Course Vital Signs 03/10/19 03/10/19 03/10/19 14:23 18:24 19:30 Temperature 98.0 F 98.1 F Pulse Rate 91 62 66 Respiratory 20 18 18 Rate Blood Pressure 146/92 134/74 124/72 O2 Sat by Pulse 99 98 97 Oximetry Medical Decision Making - Medical Decision Making EKG shows normal sinus rhythm at 84 bpm GA interval 168 QRSs 80 QT interval 366 QTC is 432. Patient's EKG shows no ST segment elevation or depression or T wave abnormalities are noted. Patient's second troponin was negative. EPS evaluated the patient and determined that the patient needed to be transferred to a psych facility because of is no inpatient beds here. I filled out a clinical certification for the patient's transfer - Lab Data Result diagrams: 03/10/19 16:32 03/10/19 16:32 Lab Results 03/10/19 03/10/19 03/10/19 Range/Units 16:32 16:32 16:32 WBC 9.1 (3.8-10.6) k/uL RBC 5.50 (4.30-5.90) m/uL Hgb 17.4 (13.0-17.5) gm/dL Hct 49.8 (39.0-53.0) % MCV 90.4 (80.0-100.0) fL MCH 31.7 (25.0-35.0) pg MCHC 35.0 (31.0-37.0) g/dL RDW 13.3 (11.5-15.5) % Plt Count 190 (150-450) k/uL Neutrophils % 73 % Lymphocytes % 16 % Monocytes % 7 % Eosinophils % 2 % Basophils % 1 % Neutrophils # 6.6 (1.3-7.7) k/uL Lymphocytes # 1.4 (1.0-4.8) k/uL Monocytes # 0.6 (0-1.0) k/uL Eosinophils # 0.2 (0-0.7) k/uL Basophils # 0.1 (0-0.2) k/uL PT 10.5 (9.0-12.0) sec INR 1.0 (<1.2) APTT 25.7 (22.0-30.0) sec Sodium 140 (137-145) mmol/L Potassium 5.0 (3.5-5.1) mmol/L Chloride 111 H (98-107) mmol/L Carbon Dioxide 18 L (22-30) mmol/L Anion Gap 11 mmol/L BUN 15 (9-20) mg/dL Creatinine 0.82 (0.66-1.25) mg/dL Est GFR (CKD-EPI)AfAm >90 (>60 ml/min/1.73 sqM) Est GFR (CKD-EPI)NonAf >90 (>60 ml/min/1.73 sqM) Glucose 84 (74-99) mg/dL Calcium 9.3 (8.4-10.2) mg/dL Magnesium 2.0 (1.6-2.3) mg/dL Total Bilirubin 1.1 (0.2-1.3) mg/dL AST 51 (17-59) U/L ALT <6 L (21-72) U/L Alkaline Phosphatase 97 (38-126) U/L Troponin I (0.000-0.034) ng/mL Total Protein 8.4 H (6.3-8.2) g/dL Albumin 4.8 (3.5-5.0) g/dL 03/10/19 03/10/19 Range/Units 16:32 20:22 WBC (3.8-10.6) k/uL RBC (4.30-5.90) m/uL Hgb (13.0-17.5) gm/dL Hct (39.0-53.0) % MCV (80.0-100.0) fL MCH (25.0-35.0) pg MCHC (31.0-37.0) g/dL RDW (11.5-15.5) % Plt Count (150-450) k/uL Neutrophils % % Lymphocytes % % Monocytes % % Eosinophils % % Basophils % % Neutrophils # (1.3-7.7) k/uL Lymphocytes # (1.0-4.8) k/uL Monocytes # (0-1.0) k/uL Eosinophils # (0-0.7) k/uL Basophils # (0-0.2) k/uL PT (9.0-12.0) sec INR (<1.2) APTT (22.0-30.0) sec Sodium (137-145) mmol/L Potassium (3.5-5.1) mmol/L Chloride (98-107) mmol/L Carbon Dioxide (22-30) mmol/L Anion Gap mmol/L BUN (9-20) mg/dL Creatinine (0.66-1.25) mg/dL Est GFR (CKD-EPI)AfAm (>60 ml/min/1.73 sqM) Est GFR (CKD-EPI)NonAf (>60 ml/min/1.73 sqM) Glucose (74-99) mg/dL Calcium (8.4-10.2) mg/dL Magnesium (1.6-2.3) mg/dL Total Bilirubin (0.2-1.3) mg/dL AST (17-59) U/L ALT (21-72) U/L Alkaline Phosphatase (38-126) U/L Troponin I <0.012 <0.012 (0.000-0.034) ng/mL Total Protein (6.3-8.2) g/dL Albumin (3.5-5.0) g/dL Disposition Clinical Impression: Depression, Suicidal ideation, Chronic chest pain Disposition: TRANSFER TO PSYCH HOSP/UNIT Referrals: Viktoria Richardson MD [Primary Care Provider] - 1-2 days Time of Disposition: 19:43
[2019-03-10 16:52] LABS: Basophils # (A) 0.1 k/uL (0-0.2); Basophils % (A) 1 %; Eosinophils # (A) 0.2 k/uL (0-0.7); Eosinophils % (A) 2 %; HCT 49.8 % (39.0-53.0); HGB 17.4 gm/dL (13.0-17.5); Lymphocytes # (A) 1.4 k/uL (1.0-4.8); Lymphocytes % (A) 16 %; MCH 31.7 pg (25.0-35.0); MCV 90.4 fL (80.0-100.0); Mean Platelet Volume 7.8; Monocytes # (A) 0.6 k/uL (0-1.0); Monocytes % (A) 7 %; Neutrophils # (A) 6.6 k/uL (1.3-7.7); Neutrophils % (A) 73 %; Platelet Count 190 k/uL (150-450); RDW 13.3 % (11.5-15.5); WBC 9.1 k/uL (3.8-10.6)
[2019-03-10 16:54] LABS: ALT <6 U/L (21-72); AST 51 U/L (17-59); African American GFR (CKD) >90 (>60 ml/min/1.73 sqM); Albumin 4.8 g/dL (3.5-5.0); Alkaline Phosphatase 97 U/L (38-126); Anion Gap 11 mmol/L; Blood Urea Nitrogen 15 mg/dL (9-20); Calcium 9.3 mg/dL (8.4-10.2); Carbon Dioxide 18 mmol/L (22-30); Chloride 111 mmol/L (98-107); Glucose 84 mg/dL (74-99); Sodium 140 mmol/L (137-145); Total Bilirubin 1.1 mg/dL (0.2-1.3); Total Protein 8.4 g/dL (6.3-8.2)
--- NOTE | 2019-03-10 17:07 | XR ---
EXAMINATION TYPE: XR chest 2V DATE OF EXAM: 03/10/2019 COMPARISON: 12/25/2018 HISTORY: Chest pain TECHNIQUE: Frontal and lateral views of the chest are obtained. FINDINGS: Heart and mediastinum are normal. Lungs are clear. Diaphragm is normal. Bony thorax appear s normal. IMPRESSION: Normal chest. No change.
[2019-03-10 17:09] LABS: Partial Thromboplastin Time 25.7 sec (22.0-30.0); Prothrombin Time 10.5 sec (9.0-12.0)
[2019-03-10 21:01] LABS: Amphetamine Screen,Urine Not Detected (NotDetected); Barbiturate Screen,Urine Not Detected (NotDetected); Benzodiazepines Screen,Urine Not Detected (NotDetected); Cocaine Screen,Urine Not Detected (NotDetected); Methadone Screen, Urine Not Detected (NotDetected); Opiate Screen,Urine Not Detected (NotDetected); Oxycodone Screen, Urine Not Detected (NotDetected); Phencyclidine Screen,Urine Not Detected (NotDetected); Tricyclic Antidepressant,Urine Not Detected (NotDetected); Urn Cannabinoid Scrn Detected (NotDetected)
[2019-03-10] MEDS ORDERED: ACETAMINOPHEN TAB 325 MG TAB PO STA (22:15)
[2019-03-10] MEDS ORDERED: traZODone HCL 50 MG TAB PO ONE (22:38)
[2019-03-10] MEDS ORDERED: cloNIDine HCL 0.2 MG TAB PO STA (22:38)
[2019-03-11 05:06] VITALS: BP 105/53; PULSE 59; RESP 16; TEMP 97.6
[2019-03-11] MEDS ORDERED: LURASIDONE 20 MG TAB PO SCH (09:00)
== END 2019-03-11 06:50 ==
LOC: EC 14:21
DX: G89.29 Other chronic pain (principal); R07.9 Chest pain, unspecified; F32.9 Major depressive disorder, single episode, unspecified; R45.851 Suicidal ideations; R06.02 Shortness of breath; I48.91 Unspecified atrial fibrillation; I10 Essential (primary) hypertension; F20.9 Schizophrenia, unspecified; F17.200 Nicotine dependence, unspecified, uncomplicated; Z87.09 Personal history of other diseases of the respiratory system; Z87.01 Personal history of pneumonia (recurrent); Z87.39 Personal history of other diseases of the musculoskeletal system and connective tissue; Z86.14 Personal history of Methicillin resistant Staphylococcus aureus infection; Z95.818 Presence of other cardiac implants and grafts; Z82.49 Family history of ischemic heart disease and other diseases of the circulatory system; Z79.899 Other long term (current) drug therapy; Z88.6 Allergy status to analgesic agent; Z88.8 Allergy status to other drugs, medicaments and biological substances
CPT/HCPCS: 36415; 71046; 80053; 80306; 82075; 83735; 84484; 85025; 85610; 85730; 93005; 99285

== ENCOUNTER 2019-04-08 14:29 | Inpatient (IN) | payer MEDICAID, OTHER ==
--- NOTE | 2019-04-08 15:28 | ED ---
Psych HPI - General Chief Complaint: Psychiatric Symptoms Stated Complaint: Mental Health Time Seen by Provider: 04/08/19 14:43 Source: patient, RN notes reviewed Mode of arrival: ambulatory Limitations: no limitations - History of Present Illness Initial Comments: 48-year-old male presents emergency department with chief complaint of depression, suicidal ideation. Patient states that he is having thoughts of cutting his wrists. He states his ex- took his knife away from. Patient states that he is very depressed, super depressed. He denies any elbow use today he does drink alcohol on a regular basis no drug use. No physical complaints. Denies homicidal ideation - Related Data Home Medications Medication Instructions Recorded Confirmed amLODIPine [Norvasc] 10 mg PO DAILY 11/18/18 03/10/19 cloNIDine HCL [Catapres] 0.2 mg PO BID 11/18/18 03/10/19 traZODone HCL [Desyrel] 200 mg PO HS 11/18/18 03/10/19 Lurasidone [Latuda] 80 mg PO HS 02/03/19 03/10/19 Allergies Allergy/AdvReac Type Severity Reaction Status Date / Time ibuprofen [From Motrin] AdvReac Nausea & Verified 04/08/19 14:43 Vomiting simvastatin [From Zocor] AdvReac Dizziness Verified 04/08/19 14:43 Review of Systems ROS Statement: Those systems with pertinent positive or pertinent negative responses have been documented in the HPI. ROS Other: All systems not noted in ROS Statement are negative. Past Medical History Past Medical History: Atrial Fibrillation, COPD, Hyperlipidemia, Hypertension, Pneumonia Additional Past Medical History / Comment(s): Other HX; Costochondritis, chronic pain, chronic low back pain with bilateral sciatica, neuropathy bilateral hands/feet, migraines, kidney stones, past partial small bowel obstruction. History of Any Multi-Drug Resistant Organisms: MRSA Date of last positivie culture/infection: 04/10/18 MDRO Source:: TOE Past Surgical History: Heart Catheterization, Orthopedic Surgery Additional Past Surgical History / Comment(s): 03/14/18 Cardiac cath-normal coronaries, L shoulder rotator cuff repair x2, cervical injection. Past Anesthesia/Blood Transfusion Reactions: No Reported Reaction Past Psychological History: Bipolar, Depression, Schizophrenia Smoking Status: Current every day smoker Past Alcohol Use History: Abuse, Daily Past Drug Use History: Marijuana, Prescription Drug Abuse - Past Family History Father Family Medical History: Myocardial Infarction ([place]) Additional Family Medical History / Comment(s): mi at age 35, still living Mother Family Medical History: Myocardial Infarction ([place]) Additional Family Medical History / Comment(s): Mother has had at least one [place]- pt unsure at what age. He has not had much contact with his mother since he was 17 yrs old. General Exam Limitations: no limitations General appearance: alert, in no apparent distress Head exam: Present: atraumatic, normocephalic, normal inspection Eye exam: Present: normal appearance, PERRL, EOMI. Absent: scleral icterus, conjunctival injection, periorbital swelling ENT exam: Present: normal exam, mucous membranes moist Neck exam: Present: normal inspection. Absent: tenderness, meningismus, lymphadenopathy Respiratory exam: Present: normal lung sounds bilaterally. Absent: respiratory distress, wheezes, rales, rhonchi, stridor Cardiovascular Exam: Present: regular rate, normal rhythm, normal heart sounds. Absent: systolic murmur, diastolic murmur, rubs, gallop, clicks Neurological exam: Present: alert, oriented X3 Psychiatric exam: Present: depressed, flat affect Course Vital Signs 04/08/19 04/08/19 14:40 15:01 Temperature 98.3 F 98.6 F Pulse Rate 93 80 Respiratory 20 18 Rate Blood Pressure 164/88 167/99 O2 Sat by Pulse 99 99 Oximetry Medical Decision Making - Lab Data Lab Results 04/08/19 Range/Units 16:48 Urine Opiates Screen Not Detected (NotDetected) Ur Oxycodone Screen Not Detected (NotDetected) Urine Methadone Screen Not Detected (NotDetected) Ur Propoxyphene Screen Not Detected (NotDetected) Ur Barbiturates Screen Not Detected (NotDetected) U Tricyclic Antidepress Not Detected (NotDetected) Ur Phencyclidine Scrn Not Detected (NotDetected) Ur Amphetamines Screen Not Detected (NotDetected) U Methamphetamines Scrn Not Detected (NotDetected) U Benzodiazepines Scrn Not Detected (NotDetected) Urine Cocaine Screen Not Detected (NotDetected) U Marijuana (THC) Screen Detected H (NotDetected) Disposition Clinical Impression: Suicidal ideation, Depression Disposition: TRANSFER TO PSYCH HOSP/UNIT Referrals: None,Stated [Primary Care Provider] - 1-2 days
[2019-04-08] MEDS ORDERED: KETOROLAC 60 MG/2 ML VIAL IM STA (15:31)
[2019-04-08 17:15] LABS: Amphetamine Screen,Urine Not Detected (NotDetected); Barbiturate Screen,Urine Not Detected (NotDetected); Benzodiazepines Screen,Urine Not Detected (NotDetected); Cocaine Screen,Urine Not Detected (NotDetected); Methadone Screen, Urine Not Detected (NotDetected); Opiate Screen,Urine Not Detected (NotDetected); Oxycodone Screen, Urine Not Detected (NotDetected); Phencyclidine Screen,Urine Not Detected (NotDetected); Tricyclic Antidepressant,Urine Not Detected (NotDetected); Urn Cannabinoid Scrn Detected (NotDetected)
[2019-04-08] MEDS ORDERED: MAG HYDROX/AL HYDROX/SIMETH 30 ML CUP PO PRN (18:43)
[2019-04-08] MEDS ORDERED: LORazepam 1 MG TAB PO PRN (18:43)
[2019-04-08] MEDS ORDERED: ZIPRASIDONE 20 MG VIAL IM PRN (18:43)
[2019-04-08] MEDS ORDERED: MAGNESIUM HYDROXIDE 2,400 MG/10 ML CUP PO PRN (18:43)
--- NOTE | 2019-04-08 20:11 | P.MDCNMH ---
History of Present Illness H&P Date: 04/08/19 Chief Complaint: chest pain 48-year-old male with history of hypertension, paroxysmal A. fib, bipolar disorder Patient comes in today due to suicidal ideation. Patient reports that he quit taking any of his medications for over 2 weeks now because he thought they were not helping. Today he started having suicidal thoughts of cutting his wrist for which his intervened took away the knife and brought him to the hospital for evaluation. After admission to the mental health unit he reported to the nursing staff that he's having 10 out of 10 chest pain. For which we were notified to see the patient urgently. Upon my interview patient reports that out of 10 chest pain central nonradiating, sharp stabbing in nature he reports that it has been going on consistently for the past 2 days. No precipitating factors. He noticed that deep breathing would make the pain worse. He feels a little bit calmed down when he rests. At time of my interview he was reporting 10 out of 10 chest pain however he looked very comfortable and was talking full sentences. He denies any associated dizziness lightheadedness nausea or vomiting. He denies any associated shortness of breath numbness or tingling in his arms sweating or palpitations. Patient does report history of left heart cath done a year ago for unknown reason and he reports that it was negative. Patient denies any exertional dyspnea at baseline or chest pains with activities. Patient does report positive family history of premature CAD in his father at age of 35. He also reports a vague episode of A. fib years ago for which she is not taking any medications at this time. Otherwise patient also reported a few episodes of vomiting over the past week described it as dark greenish vomiting nonbloody denies any GI bleeding otherwise denies any melena or fresh blood with stool. Denies any urinary mcallister ges denies any abdominal pain denies any symptoms of GERD denies any orthopnea or paroxysmal maternal dyspnea. Denies any injury to his chest or any heavy lifting recently. EKG was done at bedside showed normal sinus rhythm and no ST changes. Patient does not take any aspirin or statin at baseline. He reports dizziness with simvastatin. Review of Systems Pertinent positives as noted in HPI. All other systems were reviewed and are negative Past Medical History Past Medical History: Atrial Fibrillation, COPD, Hyperlipidemia, Hypertension, Pneumonia Additional Past Medical History / Comment(s): Other HX; Costochondritis, chronic pain, chronic low back pain with bilateral sciatica, neuropathy bi lateral hands/feet, migraines, kidney stones, past partial small bowel obstruction. History of Any Multi-Drug Resistant Organisms: MRSA Date of last positivie culture/infection: 04/10/18 MDRO Source:: TOE Past Surgical History: Heart Catheterization, Orthopedic Surgery Additional Past Surgical History / Comment(s): 03/14/18 Cardiac cath-normal coronaries, L shoulder rotator cuff repair x2, cervical injection. Past Anesthesia/Blood Transfusion Reactions: No Reported Reaction Past Psychological History: Bipolar, Depression, Schizophrenia Smoking Status: Current every day smoker Past Alcohol Use History: Abuse, Daily Past Drug Use History: Marijuana, Prescription Drug Abuse - Past Family History Father Family Medical History: Myocardial Infarction (ME) Additional Family Medical History / Comment(s): mi at age 35, still living Mother Family Medical History: Myocardial Infarction (ME) Additional Family Medical History / Comment(s): Mother has had at least one ME- pt unsure at what age. He has not had much contact with his mother since he was 17 yrs old. Medications and Allergies Home Medications Medication Instructions Recorded Confirmed Type amLODIPine [Norvasc] 10 mg PO DAILY 11/18/18 04/08/19 History cloNIDine HCL [Catapres] 0.2 mg PO BID 11/18/18 04/08/19 History traZODone HCL [Desyrel] 200 mg PO HS 11/18/18 04/08/19 History Lurasidone [Latuda] 80 mg PO HS 02/03/19 04/08/19 History Hydrochlorothiazide [Hydrodiuril] 25 mg PO DAILY 04/08/19 04/08/19 History Lisinopril 20 mg PO DAILY 04/08/19 04/08/19 History Allergies Allergy/AdvReac Type Severity Reaction Status Date / Time ibuprofen [From Motrin] AdvReac Nausea & Verified 04/08/19 18:30 Vomiting simvastatin [From Zocor] AdvReac Dizziness Verified 04/08/19 18:30 Physical Exam Vitals: Vital Signs Temp Pulse Pulse Resp BP BP Pulse Ox 04/08/19 18:54 98.1 F 67 20 142/87 04/08/19 15:01 98.6 F 80 18 167/99 99 04/08/19 14:40 98.3 F 93 20 164/88 99 Intake and Output 04/08/19 04/08/19 04/08/19 06:59 14:59 22:59 Other: Weight 113.398 kg Constitutional: No acute distress, conversant, pleasant, talking full sentences does not look to be in any pain despite what he claims Eyes: Anicteric sclerae, moist conjunctiva, no lid-lag Pupils equal round reactive to light ENMT: NC/AT Oropharynx clear, no erythema, or exudates Neck: Supple, FROM, no masses, or JVD No carotid bruits No thyromegaly Lungs: Clear to auscultation Clear to percussion Normal respiratory effort, no accessory muscle use Cardiovascular: Heart regular in rate and rhythm, No murmurs, gallops, or rubs No peripheral edema Abdominal: Soft Nontender, no guarding, rebound or rigidity Abdomen moving with respiration Normoactive bowel sounds No hepatomegaly, No splenomegaly No palpable mass No abdominal wall hernia noted Skin: Multiple tattoos Normal temperature, tone, texture, turgor No induration No subcutaneous nodules No rash, lesions No ulcers Extremities: No digital cyanosis No clubbing Pedal pulses intact and symmetrical Radial pulses intact and symmetrical No calf tenderness Psychiatric: Alert and oriented to person, place and time Flat affect Poor judgment Neuro Muscles Strength 5/5 in all 4 extremities Sensation to light touch grossly present throughout Cranial nerves II-XII grossly intact No focal sensory deficits Lymphatics: no palpable cervical or supraclavicular , or inguinal lymph nodes Cranial Nerve Examination - Cranial Nerves Cranial Nerve II- Optic: Intact Cranial Nerve III- Oculomotor: Intact Cranial Nerve IV- Trochlear: Intact Cranial Nerve V- Trigeminal: Intact Cranial Nerve - Abducens: Intact Cranial Nerve VII- Facial: Intact Cranial Nerve VIII- Auditory: Intact Cranial Nerve IX- Glossopharyngeal: Intact Cranial Nerve X- Vagus: Intact Cranial Nerve XI- Accessory: Intact Cranial Nerve XII- Hypoglossal: Intact Results Labs: Abnormal Lab Results - Last 24 Hours (Table) 04/08/19 Range/Units 16:48 U Marijuana (THC) Screen Detected H (NotDetected) Assessment and Plan Assessment: 48-year-old male with history of hypertension, paroxysmal A. fib. Bipolar disorder noncompliant with medications comes in today due to suicidal ideation. Currently complaining of chest pain seems to be atypical in nature, patient is claiming a 10 out of 10 chest pain for the past 2 days which she didn't mention to the ER, despite that he seems very comfortable laying in bed talking full sentences during the interview. Most likely the pain is due to costochondritis which is worsened with deep breathing more of a pleuritic in nature however we'll initiate workup to rule out underlying acute coronary syndrome. Stat EKG done at bedside showed normal sinus rhythm with no acute ST changes Patient had a negative left heart cath March 2018 in our hospital showed normal coronary arteries. Echocardiogram showed normal left ventricular ejec tion fraction Plan: Atypical chest pain unlikely cardiac, most likely secondary to costochondritis rule out acute coronary syndrome Initial EKG showed normal sinus rhythm with no acute ST changes We'll give patient aspirin and statin, patient has history of dizziness with simvastatin. We'll start him on atorvastatin and watch for any intolerance Continue home blood pressure meds lisinopril Amlodipine Low-dose clonidine Cardiac enzyme monitoring Do not hesitate to call if chest pain persists or worsens We'll continue to monitor and the mental health unit for now Motrin for chest pain which is most likely due to costochondritis Patient had a negative left heart cath 1 year ago , normal left ventricular ejection fraction Check chest x-ray Depression with suicidal ideation Management per psych Chronic conditions Hypertension Paroxysmal A. fib not on anticoagulation Hyperlipidemia Noncompliance with medications Smoking tobacco Patient counseled to quit smoking Low risk for DVT Patient is ambulatory Thank you for allowing us to participate in the care of this patient. Do not hesitate to contact us with questions. Someone can be reached from the [facility] hospitalist group at all hours of the day at [phone].
--- NOTE | 2019-04-08 20:25 | XR ---
EXAMINATION TYPE: XR chest 1V DATE OF EXAM: 04/08/2019 CLINICAL HISTORY: Chest pain. TECHNIQUE: Single AP portable frontal upright view of the chest is obtained. COMPARISON: Chest x-ray March 10, 2019. FINDINGS: The cardiac silhouette size is stable and mildly enlarged. New mild interstitial edema thou ght present. No new suspicious focal airspace opacity, pleural effusion, or pneumothorax. The osseou s structures are intact. IMPRESSION: Persistent mild cardiomegaly with suggestion of bilateral mild interstitial edema, correl ate clinically for CHF exacerbation.
[2019-04-08] MEDS: ASPIRIN 325 MG TAB PO SCH (20:46)
[2019-04-08] MEDS: ATORVASTATIN 40 MG TAB PO SCH (20:47)
[2019-04-08] MEDS: cloNIDine HCL 0.1 MG TAB PO SCH (20:47)
[2019-04-08] MEDS ORDERED: traZODone HCL 100 MG TAB PO SCH (21:00)
[2019-04-08] MEDS: amLODIPine 10 MG TAB PO SCH (21:16)
[2019-04-09 02:40] LABS: Creatine Kinase 70 U/L (55-170)
[2019-04-09 02:54] LABS: Creatine Kinase MB 0.3 ng/mL (0.0-2.4); Troponin I <0.012 ng/mL (0.000-0.034)
[2019-04-09] MEDS: NICOTINE 14MG/24HR PATCH TRANSDERM SCH (08:20)
[2019-04-09] MEDS: cloNIDine HCL 0.1 MG TAB PO SCH ×2 (08:21→20:51)
[2019-04-09] MEDS: ASPIRIN 325 MG TAB PO SCH (08:21)
[2019-04-09] MEDS: amLODIPine 10 MG TAB PO SCH (08:21)
[2019-04-09] MEDS: LISINOPRIL 20 MG TAB PO SCH (08:22)
[2019-04-09] MEDS: HYDROCHLOROTHIAZIDE 25 MG TAB PO SCH (08:22)
[2019-04-09] MEDS ORDERED: amLODIPine 10 MG TAB PO SCH (09:00)
--- NOTE | 2019-04-09 11:00 | ECHOF ---
Referral Reason:LVEF MEASUREMENTS -------- HEIGHT: 175.3 cm WEIGHT: 113.4 kg BP: RVIDd: 4.5 cm (< 3.3) IVSd: 1.4 cm (0.6 - 1.1) LVIDd: 4.4 cm (3.9 - 5.3) LVPWd: 1.2 cm (0.6 - 1.1) IVSs: 1.8 cm LVIDs: 2.5 cm LVPWs: 1.8 cm LAESV Index (A-L): 25.37 ml/m IVSd: 1.5 cm (0.6 - 1.1) LVIDd: 5.3 cm (3.9 - 5.3) LVPWd: 1.4 cm (0.6 - 1.1) IVSs: 1.8 cm LVIDs: 3.8 cm LVPWs: 1.9 cm EDV(Teich): 134 ml ESV(Teich): 63 ml EF(Teich): 53 % %FS: 27 % SV(Teich): 71 ml Ao Diam: 3.3 cm (2.0 - 3.7) AV Cusp: 2.5 cm (1.5 - 2.6) MV EXCURSION: 12.618 mm (> 18.000) MV EF SLOPE: 71 mm/s (70 - 150) EPSS: 0.5 cm MV E Tawanda: 0.76 m/s MV DecT: 256 ms MV A Tawanda: 0.58 m/s MV E/A Ratio: 1.31 RAP: 5.00 mmHg RVSP: 44.26 mmHg FINDINGS -------- Sinus rhythm. This was a technically adequate study. The left ventricular size is normal. There is moderate concentric left ventricular hypertrophy. O verall left ventricular systolic function is low-normal with, an EF between 50 - 55 %. The diastoli c filling pattern is normal for the age of the patient 8.21. The right ventricle is moderately enlarged. Normal LA size by volume 22+/-6 ml/m2. The right atrium is moderately enlarged. Interatrial and interventricular septum intact. The aortic valve was not well visualized. There is no evidence of aortic regurgitation. There is no evidence of aortic stenosis. No mitral regurgitation. Moderate tricuspid regurgitation present. There is moderate pulmonary hypertension. The right marva tricular systolic pressure, as measured by Doppler, is 44.26mmHg. There is no pulmonic regurgitation present. The aortic root size is normal. IVC Not well visulized. There is no pericardial effusion. CONCLUSIONS -------- 1. Sinus rhythm. 2. This was a technically adequate study. 3. The left ventricular size is normal. 4. There is moderate concentric left ventricular hypertrophy. 5. Overall left ventricular systolic function is low-normal with, an EF between 50 - 55 %. 6. The diastolic filling pattern is normal for the age of the patient 8.21 7. The right ventricle is moderately enlarged. 8. Normal LA size by volume 22+/-6 ml/m2. 9. The right atrium is moderately enlarged. 10. Interatrial and interventricular septum intact. 11. The aortic valve was not well visualized. 12. There is no evidence of aortic regurgitation. 13. There is no evidence of aortic stenosis. 14. No mitral regurgitation. 15. Moderate tricuspid regurgitation present. 16. There is moderate pulmonary hypertension. 17. The right ventricular systolic pressure, as measured by Doppler, is 44.26mmHg. 18. There is no pulmonic regurgitation present. 19. The aortic root size is normal. 20. IVC Not well visulized. 21. There is no pericardial effusion. FORESTRY EXTENSION SPECIALIST: Penny Faye RDCS
--- NOTE | 2019-04-09 11:03 | P.HP ---
Psychiatric H&P - . History & Physical: Allergies Allergy/AdvReac Type Severity Reaction Status Date / Time ibuprofen [From Motrin] AdvReac Nausea & Verified 04/08/19 18:30 Vomiting simvastatin [From Zocor] AdvReac Dizziness Verified 04/08/19 18:30 Vital Signs Temp 97.5 F L 04/09/19 06:30 Pulse 61 04/09/19 06:30 Resp 16 04/09/19 06:30 BP 110/64 04/09/19 06:30 Pulse Ox 99 04/08/19 15:01 Intake & Output 04/08/19 04/09/19 04/09/19 18:59 06:59 18:59 Weight 113.398 kg Laboratory Last Values Total Creatine Kinase 70 U/L (55-170) 04/09/19 01:55 CK-MB (CK-2) 0.3 ng/mL (0.0-2.4) 04/09/19 01:55 CK-MB (CK-2) Rel Index 0.4 04/09/19 01:55 Troponin I <0.012 ng/mL (0.000-0.034) 04/09/19 01:55 Urine Opiates Screen Not Detected (NotDetected) 04/08/19 16:48 Ur Oxycodone Screen Not Detected (NotDetected) 04/08/19 16:48 Urine Methadone Screen Not Detected (NotDetected) 04/08/19 16:48 Ur Propoxyphene Screen Not Detected (NotDetected) 04/08/19 16:48 Ur Barbiturates Screen Not Detected (NotDetected) 04/08/19 16:48 U Tricyclic Antidepress Not Detected (NotDetected) 04/08/19 16:48 Ur Phencyclidine Scrn Not Detected (NotDetected) 04/08/19 16:48 Ur Amphetamines Screen Not Detected (NotDetected) 04/08/19 16:48 U Methamphetamines Scrn Not Detected (NotDetected) 04/08/19 16:48 U Benzodiazepines Scrn Not Detected (NotDetected) 04/08/19 16:48 Urine Cocaine Screen Not Detected (NotDetected) 04/08/19 16:48 U Marijuana (THC) Screen Detected (NotDetected) H 04/08/19 16:48 04/09/19 10:53 IDENTIFYING DATA: This patient is a 48-year-old male who was admitted through the emergency room for acute suicidal ideation. HPI: Patient presents reporting acute suicidal ideation. He states that in the last 6 months he has attempted suicide twice by overdose. He had thoughts of recently jumping in front of a vehicle. He has been homeless for the last margarito h. Prior to that he was residing at a homeless [facility] but had to leave as he exceeded his 90 days. For the last month he had been staying with a distant family member secretly in a basement but was recently asked to leave. He indicates that he feels hopeless he's been tearful twice a day his mood is depressed. He feels tired energy is low appetite as decreased sleep is decreased. He describes some increased anxiety symptoms lately no history of panic attacks. He endorses no history of hypomanic or manic episodes. He reports a few days ago he experienced an auditory hallucination telling him to harm himself but that is a new phenomenon and he has not had that throughout his life. He reports seeing some shadows in his peripheral vision at night when it's dark. He reports no thoughts of harming others. He indicates only no firearms. PAST PSYCHIATRIC HISTORY: His is the patient's fourth inpatient admission since March 2018. His last admission was July 2018. He was treated by Dr. Meyer the previous 3 admissions. He was prescribed Lamictal Latuda Mirapex Neurontin. The patient is seen by Dr. Stauffer with [facility]. He was continued on Latuda 80 mg daily trazodone 200 mg at bedtime. The patient states that the Latuda is ineffective. He indicated having a diagnosis of bipolar disorder with schizophrenia. The patient does not however endorse criteria for those diagnoses. His outpatient psychiatrist agrees and has some diagnosed with major depressive disorder along with amphetamine and cannabis and opiate use disorders. The patient has been asking for Neurontin here in the mental health unit but his outpatient psychiatrist recently documented that he is not comfortable to patient taking that medication. PMH: Chronic back pain with neuropathy, hypertension ALLERGIES: Ibuprofen, Zocor MEDICATIONS: Refer to MAR he is on antihypertensives CHEMICAL DEPENDENCY HISTORY: He reports no use of alcohol, he uses marijuana daily, he has been sporadically using heroin by snorting. Last use of heroin was 2 weeks ago he had been using daily for 3-4 months. There is documentation that he has abused amphetamines in the past. He states he's never been placed in residential treatment for chemical dependency reasons and he indicates he will not go to rehab after this admission. FAMILY PSYCHIATRIC HISTORY: None reported, no suicides in the family FAMILY CHEMICAL DEPENDENCY HISTORY: He reports several people on his father's side abuse drugs and alcohol SOCIAL HISTORY: He patient is 48 years old he he is homeless he is unemployed he has worked at an [employer] facility in the past. He has no income. He went as far as ninth grade in school. No service. He has 1 son and 3 daughters. He had one sister but she is . Legal history includes domestic violence charge 3 years ago, no abuse history reported. MENTAL STATUS EXAM: He patient is an overweight male appearing his stated age. He wears a villarreal he is dressed in hospital gowns hygiene and grooming are poor he is malodorous and indicates he has not showered in a week. Eye contact is appropriate speech is fluent he mainly response to questions as ked and there is no spontaneous speech. He indicates feeling depressed hopeless and continues to report suicidal ideation. He reports no homicidal ideation intent or plan. He is endorsing no hallucinations at this moment but states he had auditory hallucinations that were commanding 2-3 days ago and he indicates he will have shadowy figures in his peripheral vision at night. He is endorsing no specific delusions as we reviewed several types. Affect is blunted. He demonstrates no verbal or physical aggressiveness he demonstrates no involuntary repetitive movements. He is oriented to person place and date he is able to name the days of the week backwards. Insight and judgment are impaired. STRENGTHS/WEAKNESSES: Strengths: Outpatient care arranged with [facility] weaknesses: Ongoing substance use noncompliance with medication as an outpatient INTELLECTUAL FUNCTIONING: Average IMPRESSIONS: [] 1. Major depressive disorder recurrent severe rule out psychosis, cannabis use disorder moderate, opioid use disorder severe, amphetamine use disorder moderate PLAN: The patient has been admitted to the mental health unit voluntarily. We reviewed his presenting symptoms and treatment options. We will not continue the Latuda but we will initiate Cymbalta for depressive and anxiety symptoms this may also address his complaints of physical pain. We will initiate Remeron at bedtime to assist with sleep. We discussed both of these medications in terms of potential benefits and side effects and his questions were answered. He has asked for Neurontin but we will not continue that at this time. At length we spoke about him attending inpatient chemical dependency treatment but he refuses without giving it much consideration. We will attempt to discuss this again during the hospitalization. We will discuss the possible use of naltrexone. He will be seen by internal medicine for routine history and physical exam. He did have a chest pain complaint which is being worked up. Social work will meet with the patient to complete a psychosocial assessment. We will monitor him for safety he is encouraged to fully participate in the milieu. We will involve any support individuals in his treatment and discharge planning as he will allow if they are available.
[2019-04-09] MEDS: DULoxetine HCL 30 MG CAPSULE.DR PO SCH (11:38)
[2019-04-09 12:36] LABS: ALT 36 U/L (21-72); AST 28 U/L (17-59); African American GFR (CKD) >90 (>60 ml/min/1.73 sqM); Albumin 3.8 g/dL (3.5-5.0); Alkaline Phosphatase 57 U/L (38-126); Anion Gap 9 mmol/L; Blood Urea Nitrogen 11 mg/dL (9-20); Calcium 9.3 mg/dL (8.4-10.2); Carbon Dioxide 22 mmol/L (22-30); Chloride 108 mmol/L (98-107); Cholesterol 131 mg/dL (<200); Glucose 94 mg/dL (74-99); HDL Cholesterol 26 mg/dL (40-60); LDL Cholesterol,Calculated 56 mg/dL (0-99); Non-African American GFR(CKD) >90 (>60 ml/min/1.73 sqM); Potassium 3.9 mmol/L (3.5-5.1); Sodium 139 mmol/L (137-145); Total Bilirubin 0.6 mg/dL (0.2-1.3); Total Protein 6.7 g/dL (6.3-8.2); Triglycerides 245 mg/dL (<150)
[2019-04-09 12:38] LABS: Creatine Kinase 71 U/L (55-170)
[2019-04-09 12:51] LABS: Creatine Kinase MB 0.4 ng/mL (0.0-2.4); Troponin I <0.012 ng/mL (0.000-0.034)
[2019-04-09 13:33] LABS: Basophils # (A) 0.1 k/uL (0-0.2); Basophils % (A) 1 %; Eosinophils # (A) 0.2 k/uL (0-0.7); Eosinophils % (A) 3 %; HCT 42.6 % (39.0-53.0); HGB 15.3 gm/dL (13.0-17.5); Hyperchromasia Slight; Lymphocytes # (A) 1.6 k/uL (1.0-4.8); Lymphocytes % (A) 24 %; MCH 31.8 pg (25.0-35.0); MCHC 35.9 g/dL (31.0-37.0); MCV 88.7 fL (80.0-100.0); Mean Platelet Volume 8.3; Monocytes # (A) 0.6 k/uL (0-1.0); Monocytes % (A) 8 %; Neutrophils # (A) 4.2 k/uL (1.3-7.7); Neutrophils % (A) 62 %; Platelet Count 213 k/uL (150-450); RDW 13.3 % (11.5-15.5); WBC 6.7 k/uL (3.8-10.6)
[2019-04-09] MEDS: MIRTAZAPINE 15 MG TAB PO SCH (20:51)
[2019-04-09] MEDS: ATORVASTATIN 40 MG TAB PO SCH (20:51)
[2019-04-09 22:24] LABS: Hemoglobin A1C 4.7 % (4.0-6.0)
[2019-04-10] MEDS: NICOTINE 14MG/24HR PATCH TRANSDERM SCH (08:46)
[2019-04-10] MEDS: amLODIPine 10 MG TAB PO SCH (08:47)
[2019-04-10] MEDS: HYDROCHLOROTHIAZIDE 25 MG TAB PO SCH (08:47)
[2019-04-10] MEDS: cloNIDine HCL 0.1 MG TAB PO SCH ×2 (08:47→20:59)
[2019-04-10] MEDS: LISINOPRIL 20 MG TAB PO SCH (08:47)
[2019-04-10] MEDS: DULoxetine HCL 30 MG CAPSULE.DR PO SCH (08:47)
[2019-04-10] MEDS: ASPIRIN 325 MG TAB PO SCH (08:47)
--- NOTE | 2019-04-10 10:58 | P.PN ---
Progress Note - Text Interval history: The patient's found in his room he follows me to an interview room. He reports his mood is depressed he continues to have hopeless thoughts. He reports feeling safe in the hospital. He has not been attending groups and we discussed the importance of him attending groups for treatment and evaluation purposes. He has no questions or concerns regarding his psychotropic medications. He has been eating meals. Staff report he slept 7 hours last evening. Mental status exam: The patient is alert he is dressed in hospital attire hygiene grooming impaired. Eye contact is poor he is looking down at the floor. He endorses a depressed mood with hopelessness thinking. He reports continued suicidal thoughts. He demonstrates no verbal or physical aggressiveness he demonstrates no involuntary repetitive movements. Insight and judgment are impaired. He reports no auditory or visual hallucinations or any specific delusions there is no observed evidence of psychosis. He demonstrates no tangential thinking loose associations or flight of ideas he does not appear hypomanic or manic. Plan: The patient will continue on his current psychotropic medications. He is instructed to attend groups to fully benefit from the milieu. We will monitor him for safety and encourage adherence to ADLs. He requires continued psychiatric hospitalization for safety reasons.
[2019-04-10] MEDS ORDERED: PNEUMOCOCCAL VACC-PNEUMOVAX 23 25 MCG/0.5 ML VIAL IM ONE (13:46)
[2019-04-10] MEDS: MIRTAZAPINE 15 MG TAB PO SCH (20:58)
[2019-04-10] MEDS: ATORVASTATIN 40 MG TAB PO SCH (20:58)
[2019-04-11] MEDS: NICOTINE 14MG/24HR PATCH TRANSDERM SCH (08:48)
[2019-04-11] MEDS: amLODIPine 10 MG TAB PO SCH (08:49)
[2019-04-11] MEDS: ASPIRIN 325 MG TAB PO SCH (08:49)
[2019-04-11] MEDS: DULoxetine HCL 30 MG CAPSULE.DR PO SCH (08:49)
[2019-04-11] MEDS: cloNIDine HCL 0.1 MG TAB PO SCH ×2 (08:49→21:21)
[2019-04-11] MEDS: HYDROCHLOROTHIAZIDE 25 MG TAB PO SCH (08:49)
[2019-04-11] MEDS: LISINOPRIL 20 MG TAB PO SCH (08:49)
--- NOTE | 2019-04-11 09:54 | P.PN ---
Progress Note - Text Interval history: The patient is found in his room he follows me to an interview room. He states that his mood is still depressed he still has hopeless and helpless feelings. In terms of suicidal thoughts he feels safe here on the mental health unit. He did get up to breakfast. He is attended no groups this morning yet. He describes having difficulty sleeping last night with frequent waking. He indicates he went to bed at 9:30 and fell asleep at 10:30 staff report he slept 7 hours. He was reminded that he needs to get out of bed in the morning and stay physically active and attend groups. We discussed that staying in bed during the day will disrupt his sleep at night. We discussed titrating his Cymbalta to 60 mg daily. He expresses some frustration that the medicine hasn't worked yet. We reviewed the expected time line the Cymbalta would demonstrate efficacy. Mental status exam: The patient is an overweight male appearing his stated age. He is dressed in hospital attire. Hygiene is improved grooming is impaired. Eye contact is appropriate speech is fluent nonpressured. He responds to questions asked for the most part. He reports hopelessness thinking a depressed mood affect is constricted. He demonstrates no verbal or physical aggressiveness. He demonstrates no involuntary repetitive movements. He demonstrates no tangential thinking loose associations or flight of ideas. He does not appear hypomanic or manic there is no observed evidence of psychosis. Insight and judgment limited. So far he remains resistant to some treatment recommendations. Plan: The patient will continue on the Cymbalta we will titrate the dose to 60 mg daily. Once again he strongly encouraged to attend groups. We will monitor him for safety. Vital signs reviewed. He requires continued psychiatric hospitalization until further stabilized.
[2019-04-11] MEDS: MIRTAZAPINE 15 MG TAB PO SCH (21:21)
[2019-04-11] MEDS: ATORVASTATIN 40 MG TAB PO SCH (21:21)
[2019-04-12] MEDS: NICOTINE 14MG/24HR PATCH TRANSDERM SCH (08:46)
[2019-04-12] MEDS: DULoxetine HCL 60 MG CAPSULE.DR PO SCH (08:47)
[2019-04-12] MEDS: amLODIPine 10 MG TAB PO SCH (08:47)
[2019-04-12] MEDS: HYDROCHLOROTHIAZIDE 25 MG TAB PO SCH (08:47)
[2019-04-12] MEDS: cloNIDine HCL 0.1 MG TAB PO SCH ×2 (08:47→21:05)
[2019-04-12] MEDS: ASPIRIN 325 MG TAB PO SCH (08:47)
[2019-04-12] MEDS: LISINOPRIL 20 MG TAB PO SCH (08:47)
--- NOTE | 2019-04-12 11:26 | P.PN ---
Progress Note - Text Interval history: The patient is found in group he follows me to an interview room. He states that his mood is depressed and he continues to have suicidal ideation. He is primarily concerned about having no support outside of the hospital and now her to live. He is not able to stay with his any of his children and he [facility] He has no questions or concerns regarding his psychotropic medications. He is attempting some group participation today but did not yesterday. He is eating meals. He is sleeping throughout the night. Mental status exam: The patient is an overweight male appearing his stated age. He is dressed in his own clothing eye contact is appropriate. Nancye kamille is fluent spontaneous nonpressured. He reports having a depressed mood with continued suicidal ideation. He reports no homicidal ideation. He endorses no auditory or visual hallucinations or any specific delusions. There is no observed evidence of psychosis. He demonstrates no tangential thinking loose associations or flight of ideas he does not appear hypomanic or manic. Insight and judgment limited. He demonstrates no verbal or physical aggressiveness. Affect is blunted. Speech is fluent nonpressured a little more spontaneous today compared to yesterday. Plan: The patient will continue on his current psychotropic medication. He does not wish to attend inpatient chemical dependency treatment. We will discuss any possible placement options with social work. Vital signs reviewed. He is encouraged to participate fully in the milieu.
[2019-04-12] MEDS: NITROGLYCERIN SL TABS 0.4 MG TAB SUBLINGUAL PRN ×2 (16:38→17:36)
[2019-04-12] MEDS ORDERED: IBUPROFEN 600 MG TAB PO PRN (19:10)
[2019-04-12] MEDS ORDERED: MAG HYDROX/AL HYDROX/SIMETH 30 ML, HYOSCYAMINE ELIXIR 10 ML PO ONE ×2 (19:30)
--- NOTE | 2019-04-12 19:45 | P.PN ---
Progress Note - Text Hospitalist Interval Note Called to see patient for complaints of chest pain. Patient had been expe riencing chest pain throughout the afternoon. Had received 2 nitroglycerin with some relief after the second nitroglycerin laying flat. Patient seen and examined at bedside. He reports chest pain that was retrosternal in nature associated with tingling down his left arm, slight nausea, no diaphoresis, no shortness of breath Vital signs reviewed General: non toxic, no distress, appears at stated age Derm: warm, dry Head: atraumatic, normocephalic, symmetric Eyes: EOMI, no lid lag, anicteric sclera Mouth: no lip lesion, mucus membranes moist Cardiovascular: S1S2 reg, no murmur, positive posterior tibial pulse bilateral, chest pain reproducible with pressure in the center of the chest Lungs: CTA bilateral, no rhonchi, no rales , no accessory muscle use Abdominal: soft, nontender to palpation, no guarding, no appreciable organomegaly Ext: no gross muscle atrophy, no edema, no contractures Neuro: CN II-XI grossly intact, no focal neuro deficits Psych: Alert, oriented, appropriate affect Assessment/Plan: Chest pain, appears noncardiac in nature -Patient had a cardiac catheterization within the last 2 years which showed normal coronary arteries. He has been here multiple times and has had multiple complaints of chest pain all with negative troponins. -Aspirin 1, Motrin, GI cocktail -EKG and stat troponin -Appears to be musculoskeletal in nature as it is reproducible on exam -Continue to monitor
[2019-04-12] MEDS: MIRTAZAPINE 15 MG TAB PO SCH (21:05)
[2019-04-12] MEDS: ATORVASTATIN 40 MG TAB PO SCH (21:05)
[2019-04-13] MEDS: amLODIPine 10 MG TAB PO SCH (09:07)
[2019-04-13] MEDS: DULoxetine HCL 60 MG CAPSULE.DR PO SCH (09:07)
[2019-04-13] MEDS: LISINOPRIL 20 MG TAB PO SCH (09:07)
[2019-04-13] MEDS: ASPIRIN 325 MG TAB PO SCH (09:07)
[2019-04-13] MEDS: HYDROCHLOROTHIAZIDE 25 MG TAB PO SCH (09:07)
[2019-04-13] MEDS: cloNIDine HCL 0.1 MG TAB PO SCH ×2 (09:07→21:20)
[2019-04-13] MEDS: NICOTINE 14MG/24HR PATCH TRANSDERM SCH (09:07)
--- NOTE | 2019-04-13 09:08 | P.PN ---
Progress Note - Text Interval history: The patient is found in his room he follows me to an interview room. He indicates he still depressed and has suicidal thoughts. He has no questions or concerns regarding his psychotropic medication. He indicates he went to groups yesterday and it is his goal to attend today. Appetite stable sleep is stable staff report he slept 7 hours last evening. Again we spent several minutes discussing his financial situation and lack of housing. He is unable to generate any ideas as to where he can stay upon discharge. He is under the impression that he has maximized the number of days that he can stay at the local longterm in 1 year. We discussed the possibility of inpatient chemical dependency treatment again and he states "I will think about it" Mental status exam: The patient is an overweight male appearing his stated age. He is dressed in his own clothing hygiene grooming improved. Eye contact is appropriate speech is fluent and spontaneous nonpressured. He reports a depressed mood with continued suicidal ideation. He reports no homicidal ideation intent or plan. He reports no auditory or visual hallucinations or any specific delusions. There is no observed evidence of psychosis. He demonstrates no tangential thinking loose associations or flight of ideas. He does not appear hypomanic or manic. Insight and judgment limited. He remains oriented to person place and date. He demonstrates no verbal or physical aggressiveness he demonstrates no involuntary repetitive movements. Plan: The patient will continue on his current psychotropic medications. We will discuss his placement options during treatment team meeting. Vital signs reviewed. He is encouraged to attend all groups. He reports no contact with his children. He reports having one phone conversation with his . We are willing to involve family in treatment and discharge planning as he will allow.
[2019-04-13] MEDS: MIRTAZAPINE 15 MG TAB PO SCH (21:20)
[2019-04-13] MEDS: ATORVASTATIN 40 MG TAB PO SCH (21:20)
[2019-04-14] MEDS: DULoxetine HCL 60 MG CAPSULE.DR PO SCH (09:03)
[2019-04-14] MEDS: ASPIRIN 325 MG TAB PO SCH (09:03)
[2019-04-14] MEDS: NICOTINE 14MG/24HR PATCH TRANSDERM SCH (09:03)
[2019-04-14] MEDS: amLODIPine 10 MG TAB PO SCH (09:03)
--- NOTE | 2019-04-14 09:03 | P.PN ---
Progress Note - Text Interval history: The patient is found in his room he follows me to an interview room. He indicates his mood is not so good. He spontaneously states he still has suicidal thoughts. He reports he went to all groups however he did not attend morning groups yesterday. He is encouraged to fully comply with group therapy. He has no questions or concerns regarding his medication. Vital signs have been stable. The Ativan is no longer needed for any withdrawal concern. We discussed the importance of inpatient chemical dependency rehab. He is urged to give that further consideration. Mental status exam: The patient is alert he is dressed in his own clothing hygiene grooming adequate. Eye contact is appropriate. Speech is fluent he mainly response to questions asked he offers no spontaneous speech. He describes a depressed mood with ongoing suicidal thoughts. He reports no auditory or visual hallucinations or any specific delusions. He demonstrates no objective evidence of psychosis. He demonstrates no tangential thinking loose associations or flight of ideas. He demonstrates no verbal or physical aggressiveness he demonstrates no involuntary repetitive movements. Insight and judgment limited. He is oriented to person place and date. Plan: The patient will continue on his current psychotropic medication. He is encouraged to fully participate in the milieu. Social work is asked to clarify whether or not he can return to the local retirement. He is urged to consider inpatient chemical dependency treatment again. We will monitor him for safety.
[2019-04-14] MEDS: cloNIDine HCL 0.1 MG TAB PO SCH ×2 (09:04→20:47)
[2019-04-14] MEDS: LISINOPRIL 20 MG TAB PO SCH (09:05)
[2019-04-14] MEDS: HYDROCHLOROTHIAZIDE 25 MG TAB PO SCH (09:05)
[2019-04-14] MEDS: MIRTAZAPINE 15 MG TAB PO SCH (20:47)
[2019-04-14] MEDS: ATORVASTATIN 40 MG TAB PO SCH (20:47)
[2019-04-15] MEDS: DULoxetine HCL 60 MG CAPSULE.DR PO SCH (08:40)
[2019-04-15] MEDS: ASPIRIN 325 MG TAB PO SCH (08:40)
[2019-04-15] MEDS: cloNIDine HCL 0.1 MG TAB PO SCH ×2 (08:40→20:44)
[2019-04-15] MEDS: amLODIPine 10 MG TAB PO SCH (08:40)
[2019-04-15] MEDS: LISINOPRIL 20 MG TAB PO SCH (08:40)
[2019-04-15] MEDS: NICOTINE 14MG/24HR PATCH TRANSDERM SCH (08:40)
[2019-04-15] MEDS: HYDROCHLOROTHIAZIDE 25 MG TAB PO SCH (08:40)
--- NOTE | 2019-04-15 10:58 | P.PN ---
Progress Note - Text Interval history: The patient is found in his room he follows me to an interview room. Staff report that he attended group therapy this morning. Appetite stable. He is sleeping at night. He asked if we're able to titrate the Cymbalta further to be aggressive with the medication. We discussed the likely timeframe it would take the medicine to work. We did discuss titrating it however area he has had no phone contact with family. Social work was able to contact the [facility] the patient is able to return there upon discharge. He states that he needs to establish some type of income and we discussed what employment opportunities there may be. He indicates his mood is still depressed he states he still has suicidal thoughts. Mental status exam: The patient is alert he is cooperative he is dressed in his own clothing. He describes still having a depressed mood with suicidal thoughts. He continues to report feeling hopeless. He reports no homicidal ideation intent or plan. He endorses no symptoms of psychosis there is no observed evidence of psychosis. He demonstrates no tangential thinking loose associations or flight of ideas. He maintains a bland affect throughout our interaction. He mainly answers questions asked he often does not initiate conversation. He is oriented to person place and date. He demonstrates no verbal or physical aggressiveness. Insight and judgment remain impaired. Plan: The patient continues to endorse hopelessness thinking and suicidal thoughts. We reviewed his psychotropic medications. We will titrate the Cymbalta to 90 mg daily. He is encouraged to more fully participate in the milieu. Vital signs reviewed. We will continue to monitor him for safety. He continues to not want to attend inpatient chemical dependency treatment.
[2019-04-15 13:26] VITALS: BMI 36.9
[2019-04-15] MEDS: MIRTAZAPINE 15 MG TAB PO SCH (20:44)
[2019-04-15] MEDS: ATORVASTATIN 40 MG TAB PO SCH (20:44)
[2019-04-16] MEDS: amLODIPine 10 MG TAB PO SCH (08:34)
[2019-04-16] MEDS: NICOTINE 14MG/24HR PATCH TRANSDERM SCH (08:34)
[2019-04-16] MEDS: cloNIDine HCL 0.1 MG TAB PO SCH ×2 (08:34→20:39)
[2019-04-16] MEDS: DULoxetine HCL 30 MG CAPSULE.DR PO SCH (08:34)
[2019-04-16] MEDS: HYDROCHLOROTHIAZIDE 25 MG TAB PO SCH (08:34)
[2019-04-16] MEDS: ASPIRIN 325 MG TAB PO SCH (08:34)
[2019-04-16] MEDS: LISINOPRIL 20 MG TAB PO SCH (08:35)
--- NOTE | 2019-04-16 09:00 | P.PN ---
Progress Note - Text Interval history: The patient is found in his room he follows me to an interview room. He states he continues to feel badly still has suicidal thoughts. He feels hopeless. He indicates he attended most groups yesterday. He is eating. He describes his sleep is fragmented staff recorded he slept 7 hours. He continues to have no contact with family. We discussed augmenting the Cymbalta with Abilify. He had previously been on Latuda as an augmentation agent. He is willing to try the Abilify he has no questions or concerns about the medication. Mental status exam: The patient is an overweight male. Hygiene is adequate he is dressed in the same clothing. He remains seated calmly in the chair. Eye contact is appropriate speech is fluent mainly reactive to questions mildly spontaneous. He demonstrates no pressured speech. He demonstrates no tangential thinking loose associations or flight of ideas. He reports no auditory hallucinations. He states last night he started to experience peripheral shadows. He reports feeling safe he is endorsing no paranoid or persecutory thoughts there is no objective evidence of psychosis. He demonstrates no verbal or physical aggressiveness. He demonstrates no involuntary repetitive movements. Affect remains bland. Plan: The patient will continue on the Cymbalta as written we have just titrated the dose we will add Abilify 2 mg daily as an augmentation strategy. He is reporting no improvement in his depression hopeless feelings or suicidal thoughts. He is encouraged to continue participating in the milieu. We will continue monitor him for safety. He continues to refuse referral for inpatient chemical dependency treatment. Vital signs reviewed.
[2019-04-16] MEDS: ARIPiprazole 2 MG TAB PO SCH (09:26)
[2019-04-16] MEDS: MIRTAZAPINE 15 MG TAB PO SCH (20:39)
[2019-04-16] MEDS: ATORVASTATIN 40 MG TAB PO SCH (20:39)
[2019-04-17] MEDS: LISINOPRIL 20 MG TAB PO SCH (08:32)
[2019-04-17] MEDS: NICOTINE 14MG/24HR PATCH TRANSDERM SCH (08:32)
[2019-04-17] MEDS: amLODIPine 10 MG TAB PO SCH (08:32)
[2019-04-17] MEDS: DULoxetine HCL 30 MG CAPSULE.DR PO SCH (08:32)
[2019-04-17] MEDS: ASPIRIN 325 MG TAB PO SCH (08:32)
[2019-04-17] MEDS: ARIPiprazole 2 MG TAB PO SCH (08:32)
[2019-04-17] MEDS: cloNIDine HCL 0.1 MG TAB PO SCH ×2 (08:32→20:55)
[2019-04-17] MEDS: HYDROCHLOROTHIAZIDE 25 MG TAB PO SCH (08:32)
--- NOTE | 2019-04-17 09:37 | P.PN ---
Progress Note - Text interval history: The patient is found in his room he follows me to an interview room. He has been compliant with medications he has no questions or concerns regarding those. Again we discussed the reasons for adding the Abilify. He states he was able to reach his via phone yesterday. He states it was a casual conversation. He indicates that he has been attending groups. Appetite is stable. Staff recorded he slept 6 hours last evening. He endorses continued suicidal thoughts but indicates that they're less severe today. He is hoping they will continue to remit. Mental status exam: The patient is alert he has adequate hygiene he is dressed in hospital gowns. Eye contact is appropriate. Speech is fluent he mainly responds to questions asked.thought process is linear he demonstrates no tangential thinking loose associations or flight of ideas. He reports no auditory or visual hallucinations or any specific delusions there is no observed evidence of psychosis. He endorses continued suicidal thoughts but indicates the severity is less. He reports no homicidal ideation intent or plan. He remains oriented to person place and date. He demonstrates no verbal or physical aggressiveness he demonstrates no involuntary repetitive movements. Plan: The patient will continue on his current psychotropic medications. We have just added the Abilify as an augmentation strategy yesterday. We will allow this time to demonstrate efficacy. He is encouraged to continue fully participating in the milieu. We discussed that we would be considering discharge next week. [facility]. We will monitor him for safety. Vital signs reviewed.
[2019-04-17] MEDS: MIRTAZAPINE 15 MG TAB PO SCH (20:55)
[2019-04-17] MEDS: ATORVASTATIN 40 MG TAB PO SCH (20:55)
[2019-04-18] MEDS: LISINOPRIL 20 MG TAB PO SCH (08:23)
[2019-04-18] MEDS: ASPIRIN 325 MG TAB PO SCH (08:23)
[2019-04-18] MEDS: DULoxetine HCL 30 MG CAPSULE.DR PO SCH (08:23)
[2019-04-18] MEDS: ARIPiprazole 2 MG TAB PO SCH (08:23)
[2019-04-18] MEDS: NICOTINE 14MG/24HR PATCH TRANSDERM SCH (08:23)
[2019-04-18] MEDS: cloNIDine HCL 0.1 MG TAB PO SCH ×2 (08:24→20:37)
[2019-04-18] MEDS: amLODIPine 10 MG TAB PO SCH (08:24)
[2019-04-18] MEDS: HYDROCHLOROTHIAZIDE 25 MG TAB PO SCH (08:24)
[2019-04-18] MEDS: ACETAMINOPHEN TAB 325 MG TAB PO PRN (11:36)
--- NOTE | 2019-04-18 13:03 | P.PN ---
Progress Note - Text Progress Note Date: 04/18/19 Interval history: Patient was seen wandering the hallways prior to going to lunch. He was agreeable to investigative writer in the office was directable. Patient appears to have poor hygiene and grooming. He claims that he is continuing to feel somewhat depressed and has been on Abilify for 3 days now and feels that it needs to be increased. He is denying any side effects from medications and states that he is having a difficult time sleeping at night. Patient claims to have fair energy and appetite at this time. At this time patient is admitting to fleeting thoughts of suicide however no intent or plan. He denies any homicidal ideations intent or plan. Denies any Auditory or visual hitchcock ucinations. Patient denies any side effects from the medications and has been compliant with meds. Mental status exam: General Appearance: Patient appears to be overweight, stated age is alert, ple asant, and directable. Marginal hygiene and grooming. Behavior: No agitated behavior. Patient is calm and directable Speech: Patient's speech is fluent and nonpressured. Soft tone. Mood/Affect: Mood is improving, affect is congruent and constricted. Suicidality/Homicidality: Patient denies having any suicidal or homicidal ideation intent or plan. Perceptions: Patient denies any auditory or visual hallucinations. Though content/process: There is no evidence of any delusional thought content and thought process is linear and goal-directed. [place]. Memory and concentration: AOX3, grossly intact for the purposes of this session Judgment and insight: improving Assessment/Plan: Continue with current diagnosis. Patient continues to meet criteria for inpatient psychiatric admission for symptom stabilization and safety. At this time will increase Abilify to 4 mg daily for mood adjunct. We'll also increase Remeron to 30 mg daily at bedtime for mood/insomnia. Monitor for medication compliance and for any psychotropic medication side effects. Will continue to monitor ongoing response to treatment.
[2019-04-18] MEDS: ATORVASTATIN 40 MG TAB PO SCH (20:37)
[2019-04-18] MEDS: MIRTAZAPINE 15 MG TAB PO SCH (20:37)
[2019-04-19] MEDS: HYDROCHLOROTHIAZIDE 25 MG TAB PO SCH (08:36)
[2019-04-19] MEDS: ASPIRIN 325 MG TAB PO SCH (08:36)
[2019-04-19] MEDS: amLODIPine 10 MG TAB PO SCH (08:36)
[2019-04-19] MEDS: ARIPiprazole 2 MG TAB PO SCH (08:36)
[2019-04-19] MEDS: LISINOPRIL 20 MG TAB PO SCH (08:36)
[2019-04-19] MEDS: DULoxetine HCL 30 MG CAPSULE.DR PO SCH (08:36)
[2019-04-19] MEDS: cloNIDine HCL 0.1 MG TAB PO SCH ×2 (08:37→21:22)
[2019-04-19] MEDS: NICOTINE 14MG/24HR PATCH TRANSDERM SCH (08:37)
[2019-04-19] MEDS: ACETAMINOPHEN TAB 325 MG TAB PO PRN (11:51)
--- NOTE | 2019-04-19 14:17 | P.PN ---
Progress Note - Text Progress Note Date: 04/19/19 Interval history: Patient was seen while he was attending group and was agreeable to speak to business writer in the office. Patient was claiming that he offered no complaints at this time however did state that he found it difficult to sleep last night and was "tossing and turning". Patient claims that she has been trying to go to groups and participate with others. He claims that he is finding the activities enjoyable on the unit. He is denying any side effects from medicationsat this time. Patient claims to have fair energy and appetite at this time. At this time patient is admitting to continuing to have fleeting thoughts of suicide however no intent or plan. He denies any homicidal id eations intent or plan. Denies any Auditory or visual hallucinations. Patient denies any side effects from the medications and has been compliant with meds. Mental status exam: General Appearance: Patient appears to be overweight, stated age is alert, pleasant, and directable. poorhygiene and grooming. Behavior: No agitated behavior. Patient is calm and directable Speech: Patient's speech is fluent and nonpressured. Soft tone. Mood/Affect: Mood is improving, affect is congruent and constricted. Suicidality/Homicidality: Patient denies having any suicidal or homicidal ideation intent or plan. Perceptions: Patient denies any auditory or visual hallucinations. Though content/process: There is no evidence of any delusional thought content and thought process is linear and goal-directed. [place]. Memory and concentration: AOX3, grossly intact for the purposes of this session Judgment and insight: improving mildly. Assessment/Plan: Continue with current diagnosis. Patient continues to meet criteria for inpatient psychiatric admission for symptom stabilization and safety. At this time will continue with Abilify to 4 mg daily for mood adjunct. consider increasing Cymbalta tomorrow if needed. We'll continue with Remeron 30 mg daily at bedtime for mood/insomnia. added melatonin 6 mg daily at bedtime for sleep. Monitor for medication compliance and for any psychotropic medication side effects. Will continue to monitor ongoing response to treatment.
[2019-04-19] MEDS: MELATONIN 3 MG TABLET PO SCH (21:22)
[2019-04-19] MEDS: ATORVASTATIN 40 MG TAB PO SCH (21:22)
[2019-04-19] MEDS: MIRTAZAPINE 15 MG TAB PO SCH (21:22)
[2019-04-20] MEDS: amLODIPine 10 MG TAB PO SCH (08:23)
[2019-04-20] MEDS: NICOTINE 14MG/24HR PATCH TRANSDERM SCH (08:23)
[2019-04-20] MEDS: cloNIDine HCL 0.1 MG TAB PO SCH ×2 (08:24→20:47)
[2019-04-20] MEDS: ARIPiprazole 2 MG TAB PO SCH (08:24)
[2019-04-20] MEDS: DULoxetine HCL 30 MG CAPSULE.DR PO SCH (08:24)
[2019-04-20] MEDS: ASPIRIN 325 MG TAB PO SCH (08:24)
[2019-04-20] MEDS: LISINOPRIL 20 MG TAB PO SCH (08:25)
[2019-04-20] MEDS: HYDROCHLOROTHIAZIDE 25 MG TAB PO SCH (08:25)
--- NOTE | 2019-04-20 10:09 | P.PN ---
Progress Note - Text interval history: The patient is found in group he follows me to an interview room. He indicates he is still having suicidal thoughts and his "mind is not in a good place". He was able to speak with his via phone over the weekend. He states that she is forced to move and find somewhere else to live. He is hoping that eventually he will be able to live with her again. He reports having difficulty sleeping over the last 2 days. His Abilify was titrated to 4 mg daily we discussed titrating that the 5 mg and he is agreeable. He has been eating he has been showering he's been attending more groups. Mental status exam: The patient is alert he is an overweight male he is dressed in his own clothing hygiene adequate grooming fair. Eye contact is adequate speech is fluent it is spontaneous at times nonpressured. He reports ongoing hopeless thoughts and suicidal ideation. He reports feeling safe in the hospital. He reports no homicidal ideation intent or plan. He is reporting no auditory or visual hallucinations or specific delusions. He demonstrates no objective symptoms of psychosis. He demonstrates no tangential thinking loose associations or flight of ideas. He does not appear hypomanic or manic. He demonstrates no verbal or physical aggressiveness he demonstrates no involuntary repetitive movements. Insight and judgment limited. He is oriented to person place and date. Plan: The patient will continue on his current psychotropic medications we will titrate the Abilify to 5 mg daily. He is instructed to continue participating in groups. Again he is able to return to the [facility] upon discharge. He requires continued psychiatric hospitalization due to continued suicidal ideation. Vital signs reviewed. We will continue to monitor him for safety.
[2019-04-20] MEDS: MELATONIN 3 MG TABLET PO SCH (20:47)
[2019-04-20] MEDS: MIRTAZAPINE 15 MG TAB PO SCH (20:47)
[2019-04-20] MEDS: ATORVASTATIN 40 MG TAB PO SCH (20:47)
[2019-04-21] MEDS: cloNIDine HCL 0.1 MG TAB PO SCH ×2 (08:49→20:55)
[2019-04-21] MEDS: ASPIRIN 325 MG TAB PO SCH (08:49)
[2019-04-21] MEDS: DULoxetine HCL 30 MG CAPSULE.DR PO SCH (08:49)
[2019-04-21] MEDS: HYDROCHLOROTHIAZIDE 25 MG TAB PO SCH (08:49)
[2019-04-21] MEDS: NICOTINE 14MG/24HR PATCH TRANSDERM SCH (08:50)
[2019-04-21] MEDS: LISINOPRIL 20 MG TAB PO SCH (08:50)
[2019-04-21] MEDS: ARIPiprazole 5 MG TAB PO SCH (08:50)
[2019-04-21] MEDS: amLODIPine 10 MG TAB PO SCH (08:50)
--- NOTE | 2019-04-21 09:19 | P.PN ---
Progress Note - Text interval history: The patient is found in the hallway he follows me to an interview room. He indicates his mood is "okay". He states he still having suicidal thoughts. He states he is not thinking of a specific plan but the thoughts are there and he is not sure if he would act on it. He has been compliant with medication he has no questions or concerns regarding those. He states he's hoping the titration of Abilify will help reduce his suicidal thinking. He indicates he slept 5-6 hours staff recorded he slept 7 hours. Appetite stable. He is attending groups. He did meet with the [facility] support and discussed potential work activity. He indicates [facility] to a [facility]. Mental status exam: The patient is an overweight male he is dressed in his own clothing hygiene is adequate. He reports his mood is "okay". He reports continued suicidal ideation with no specified intent or plan. He reports no homicidal ideation intent or plan. He reports no auditory or visual hallucinations or specific delusions. There is no observed evidence of psychosis. He demonstrates no tangential thinking loose associations or flight of ideas. He does not appear hypomanic or manic. Speech is fluent spontaneous nonpressured. He demonstrates no verbal or physical aggressiveness he demonstrates no involuntary repetitive movements.insight and judgment limited but slowly improving. Plan: The patient will continue on his current medication he is encouraged to continue participating group. We will continue to monitor him for safety. Vital signs reviewed. He requires continued psychiatric hospitalization at this time. We discussed discharge planning for sometime this week.
[2019-04-21] MEDS: ACETAMINOPHEN TAB 325 MG TAB PO PRN (17:17)
[2019-04-21] MEDS: ATORVASTATIN 40 MG TAB PO SCH (20:55)
[2019-04-21] MEDS: MELATONIN 3 MG TABLET PO SCH (20:55)
[2019-04-21] MEDS: MIRTAZAPINE 15 MG TAB PO SCH (20:56)
[2019-04-22 07:02] VITALS: RESP 16
[2019-04-22] MEDS: ARIPiprazole 5 MG TAB PO SCH (08:26)
[2019-04-22] MEDS: NICOTINE 14MG/24HR PATCH TRANSDERM SCH (08:26)
[2019-04-22] MEDS: DULoxetine HCL 30 MG CAPSULE.DR PO SCH (08:26)
[2019-04-22] MEDS: cloNIDine HCL 0.1 MG TAB PO SCH ×2 (08:26→20:53)
[2019-04-22] MEDS: ASPIRIN 325 MG TAB PO SCH (08:26)
[2019-04-22] MEDS: HYDROCHLOROTHIAZIDE 25 MG TAB PO SCH (08:26)
[2019-04-22] MEDS: LISINOPRIL 20 MG TAB PO SCH (08:27)
[2019-04-22] MEDS: amLODIPine 10 MG TAB PO SCH (08:27)
--- NOTE | 2019-04-22 09:19 | P.PN ---
Progress Note - Text Interval history: The patient is found in the dining room he follows me to an interview room. He indicates he still having suicidal thoughts but indicates his mood is better. He finds that he has more energy and more motivation. He indicates he is attending groups. He is happy to report that his spoke with him on the phone last evening and she plans to come up and visit this evening. He reports that appetite is been stable he slept 7 hours last night. He has no questions or concerns regarding his medication. He is describing no side effects from his medication. Mental status exam: The patient is an overweight male he is dressed in his own clothing hygiene grooming adequate. Eye contact is appropriate. Speech is becoming more spontaneous. He reports some hopelessness thinking which may be chronic he is reporting no acute suicidal ideation intent or plan. He is reporting his mood is improving overall. He is reporting no homicidal ideation intent or plan. He reports no auditory or visual hallucinations or specific delusions. There is no observed evidence of psychosis. He demonstrates no tangential thinking loose associations or flight of ideas. He does not appear hypomanic or manic. He demonstrates no verbal or physical aggressiveness he demonstrates no involuntary repetitive movements. Insight and judgment improving. He is oriented to person place and date. He Plan: The patient will be continued on his current medication. He is starting to describe improvement of mood. We have been discussing discharge planning. We'll consider discharging him in the next 1-2 days. We will await the outcome of his visit with his this evening. Vital signs reviewed. We'll continue to monitor him for safety.
[2019-04-22] MEDS: ATORVASTATIN 40 MG TAB PO SCH (20:52)
[2019-04-22] MEDS: MIRTAZAPINE 15 MG TAB PO SCH (20:52)
[2019-04-22] MEDS: MELATONIN 3 MG TABLET PO SCH (20:53)
[2019-04-23 07:26] VITALS: BP 111/66; PULSE 73; TEMP 97.8
[2019-04-23] MEDS: ARIPiprazole 5 MG TAB PO SCH (08:08)
[2019-04-23] MEDS: amLODIPine 10 MG TAB PO SCH (08:08)
[2019-04-23] MEDS: NICOTINE 14MG/24HR PATCH TRANSDERM SCH (08:08)
[2019-04-23] MEDS: cloNIDine HCL 0.1 MG TAB PO SCH (08:09)
[2019-04-23] MEDS: DULoxetine HCL 30 MG CAPSULE.DR PO SCH (08:09)
[2019-04-23] MEDS: HYDROCHLOROTHIAZIDE 25 MG TAB PO SCH (08:09)
[2019-04-23] MEDS: ASPIRIN 325 MG TAB PO SCH (08:09)
[2019-04-23] MEDS: LISINOPRIL 20 MG TAB PO SCH (08:09)
== END 2019-04-23 13:38 | disposition home or self-care (01) | DRG 885 ==
LOC: EC 14:29 → 3MHU 18:27
PROVIDERS: ADMIT Psychiatry & Neurology Psychiatry; ATTEND Psychiatry & Neurology Psychiatry
DX: F33.2 Major depressive disorder, recurrent severe without psychotic features (principal); R45.851 Suicidal ideations; E78.5 Hyperlipidemia, unspecified; F17.200 Nicotine dependence, unspecified, uncomplicated; F20.9 Schizophrenia, unspecified; G47.00 Insomnia, unspecified; I10 Essential (primary) hypertension; I48.91 Unspecified atrial fibrillation; J44.9 Chronic obstructive pulmonary disease, unspecified; Z59.0 Homelessness; Z79.899 Other long term (current) drug therapy; Z82.49 Family history of ischemic heart disease and other diseases of the circulatory system; Z87.442 Personal history of urinary calculi; Z91.5 Personal history of self-harm; R07.9 Chest pain, unspecified; Z91.14 Patient's other noncompliance with medication regimen; F12.99 Cannabis use, unspecified with unspecified cannabis-induced disorder; F11.99 Opioid use, unspecified with unspecified opioid-induced disorder; F15.99 Other stimulant use, unspecified with unspecified stimulant-induced disorder
CPT/HCPCS: 71045; 80053; 80061; 80306; 82075; 82550; 82553; 83036; 84443; 84484; 85025; 90732; 93005; 93306; 96372; 99285

== ENCOUNTER 2019-04-25 12:51 | Inpatient (IN) | payer MEDICAID, OTHER ==
--- NOTE | 2019-04-25 13:20 | ED ---
Psych HPI - General Chief Complaint: Psychiatric Symptoms Stated Complaint: Suicidal Time Seen by Provider: 04/25/19 13:08 Source: patient, RN notes reviewed Mode of arrival: ambulatory Limitations: no limitations - History of Present Illness Initial Comments: 48-year-old male presents emergency Department with chief complaint depression, suicidal patient. Patient was recently discharged from 3 W. Patient states that he smokes marijuana and took some oxycodone this morning. Patient denies any alcohol abuse no homicidal ideation has no plan to harm himself he states it is having thoughts. Patient has chronic depression. - Related Data Home Medications Medication Instructions Recorded Confirmed amLODIPine [Norvasc] 10 mg PO DAILY 11/18/18 04/25/19 Lisinopril 20 mg PO DAILY 04/08/19 04/25/19 Previous Rx's Medication Instructions Recorded ARIPiprazole [Abilify] 5 mg PO DAILY #30 tab 04/23/19 Aspirin 325 mg PO DAILY tab 04/23/19 Atorvastatin [Lipitor] 40 mg PO HS tab 04/23/19 DULoxetine HCL [Cymbalta] 90 mg PO DAILY #45 capsule.dr 04/23/19 Hydrochlorothiazide [Hydrodiuril] 25 mg PO DAILY #30 tab 04/23/19 Mirtazapine [Remeron] 30 mg PO HS #30 tab 04/23/19 Nitroglycerin Sl Tabs [Nitrostat] 0.4 mg SUBLINGUAL Q5M PRN tab 04/23/19 Allergies Allergy/AdvReac Type Severity Reaction Status Date / Time ibuprofen [From Motrin] AdvReac Nausea & Verified 04/25/19 13:57 Vomiting simvastatin [From Zocor] AdvReac Dizziness Verified 04/25/19 13:57 Review of Systems ROS Statement: Those systems with pertinent positive or pertinent negative responses have been documented in the HPI. ROS Other: All systems not noted in ROS Statement are negative. Past Medical History Past Medical History: Atrial Fibrillation, COPD, Hyperlipidemia, Hypertension, Pneumonia Additional Past Medical History / Comment(s): Other HX; Costochondritis, chronic pain, chronic low back pain with bilateral sciatica, neuropathy bilateral hands/feet, migraines, kidney stones, past partial small bowel obstruction. History of Any Multi-Drug Resistant Organisms: MRSA Date of last positivie culture/infection: 04/10/18 MDRO Source:: TOE Past Surgical History: Heart Catheterization, Orthopedic Surgery Additional Past Surgical History / Comment(s): 03/14/18 Cardiac cath-normal coronaries, L shoulder rotator cuff repair x2, cervical injection. Past Anesthesia/Blood Transfusion Reactions: No Reported Reaction Past Psychological History: Bipolar, Depression, Schizophrenia Smoking Status: Current every day smoker Past Alcohol Use History: Abuse, Daily Past Drug Use History: Marijuana, Prescription Drug Abuse - Past Family History Father Family Medical History: Myocardial Infarction ([place]) Additional Family Medical History / Comment(s): mi at age 35, still living Mother Family Medical History: Myocardial Infarction ([place]) Additional Family Medical History / Comment(s): Mother has had at least one [place]- pt unsure at what age. He has not had much contact with his mother since he was 17 yrs old. General Exam Limitations: no limitations General appearance: alert, in no apparent distress Head exam: Present: atraumatic, normocephalic, normal inspection Eye exam: Present: normal appearance, PERRL, EOMI. Absent: scleral icterus, conjunctival injection, periorbital swelling ENT exam: Present: normal exam, normal oropharynx, mucous membranes moist, TM's normal bilaterally Neck exam: Present: normal inspection, full ROM. Absent: tenderness, meningismus, lymphadenopathy Respiratory exam: Present: normal lung sounds bilaterally. Absent: respiratory distress, wheezes, rales, rhonchi, stridor Cardiovascular Exam: Present: normal rhythm, tachycardia, normal heart sounds. Absent: systolic murmur, diastolic murmur, rubs, gallop, clicks GI/Abdominal exam: Present: soft, normal bowel sounds. Absent: distended, tenderness, guarding, rebound, rigid Neurological exam: Present: alert, oriented X3 Psychiatric exam: Present: depressed, flat affect Skin exam: Present: warm, dry, intact, normal color. Absent: rash Course Vital Signs 04/25/19 13:02 Temperature 98.2 F Pulse Rate 113 H Respiratory 20 Rate Blood Pressure 171/120 O2 Sat by Pulse 97 Oximetry Disposition Clinical Impression: Depression, Suicidal ideation Disposition: TRANSFER TO PSYCH HOSP/UNIT Referrals: None,Stated [Primary Care Provider] - 1-2 days
[2019-04-25] MEDS ORDERED: MAGNESIUM HYDROXIDE 2,400 MG/10 ML CUP PO PRN (14:44)
[2019-04-25] MEDS ORDERED: NITROGLYCERIN SL TABS 0.4 MG TAB SUBLINGUAL PRN (14:46)
[2019-04-25] MEDS: HYDROCHLOROTHIAZIDE 25 MG TAB PO SCH (17:15)
[2019-04-25] MEDS: LISINOPRIL 20 MG TAB PO SCH (17:15)
[2019-04-25] MEDS: amLODIPine 10 MG TAB PO SCH (17:15)
--- NOTE | 2019-04-25 18:20 | P.MDCNMH ---
History of Present Illness H&P Date: 04/25/19 Chief Complaint: Medical management 48-year-old male with PMH of hypertension and chronic chest pain presents the ED for depression and suicidal ideation. He has been admitted to mental health unit. [facility] physicians has been consulted for medical management of this patient. Patient was seen and examined. No acute events overnight. Patient reports chest pain that has been chronic and ongoing for the last couple of years. Patient states that he gets this pain every day and usually lasts for a few hours. Pain is not related to exertion but is acutely worsened with deep inspiration or with movement of his chest. Patient describes the pain as sharp and stabbing in nature. Pain is 3-4 out of 10 in severity. Patient states that he has seen a divisional merchandising manager Dr. Owens who has told him that his chest pain is noncardiac in nature. He does have an echocardiogram from 04/09/2019 which shows EF 50-55% with moderate concentric LVH. He was also evaluated by cardiology on September 2018 that thought that his chest pain was noncardiac in nature. He denies any headache, lower evaristo edema, nausea or vomiting, fever chills, cough, shortness of breath, palpitations, changes in urination or bowel habits. No changes in appetite or weight. Patient denies dizziness, numbne ss/weakness/tingling of the extremities. Review of Systems Pertinent positives and negatives as discussed in HPI, a complete review of systems was performed and all other systems are negative. Past Medical History Past Medical History: Atrial Fibrillation, COPD, Hyperlipidemia, Hypertension, Pneumonia Additional Past Medical History / Comment(s): Other HX; Costochondritis, chronic pain, chronic low back pain with bilateral sciatica, neuropathy bilateral hands/feet, migraines, kidney stones, past partial small bowel obstruction. History of Any Multi-Drug Resistant Organisms: MRSA Date of last positivie culture/infection: 04/10/18 MDRO Source:: TOE Past Surgical History: Heart Catheterization, Orthopedic Surgery Additional Past Surgical History / Comment(s): 03/14/18 Cardiac cath-normal coronaries, L shoulder rotator cuff repair x2, cervical injection. Past Anesthesia/Blood Transfusion Reactions: No Reported Reaction Past Psychological History: Bipolar, Depression, Schizophrenia Additional Psychological History / Comment(s): homeless until find support Smoking Status: Current every day smoker Past Alcohol Use History: Abuse, Daily Additional Past Alcohol Use History / Comment(s): Started smoking at age 15- smoked 1 ppd but has cut down to one pack a day Past Drug Use History: Marijuana, Prescription Drug Abuse Additional Drug Use History / Comment(s): Pt smokes marijuana on occasion. - Past Family History Father Family Medical History: Myocardial Infarction ([place]) Additional Family Medical History / Comment(s): mi at age 35, still living Mother Family Medical History: Myocardial Infarction ([place]) Additional Family Medical History / Comment(s): Mother has had at least one [place]- pt unsure at what age. He has not had much contact with his mother since he was 17 yrs old. Medications and Allergies Home Medications Medication Instructions Recorded Confirmed Type amLODIPine [Norvasc] 10 mg PO DAILY 11/18/18 04/25/19 History Lisinopril 20 mg PO DAILY 04/08/19 04/25/19 History ARIPiprazole [Abilify] 5 mg PO DAILY #30 tab 04/23/19 04/25/19 Rx Aspirin 325 mg PO DAILY tab 04/23/19 04/25/19 Rx Atorvastatin [Lipitor] 40 mg PO HS tab 04/23/19 04/25/19 Rx DULoxetine HCL [Cymbalta] 90 mg PO DAILY #45 capsule.dr 04/23/19 04/25/19 Rx Hydrochlorothiazide [Hydrodiuril] 25 mg PO DAILY #30 tab 04/23/19 04/25/19 Rx Mirtazapine [Remeron] 30 mg PO HS #30 tab 04/23/19 04/25/19 Rx Nitroglycerin Sl Tabs [Nitrostat] 0.4 mg SUBLINGUAL Q5M PRN tab 04/23/19 04/25/19 Rx Allergies Allergy/AdvReac Type Severity Reaction Status Date / Time ibuprofen [From Motrin] AdvReac Nausea & Verified 04/25/19 15:57 Vomiting simvastatin [From Zocor] AdvReac Dizziness Verified 04/25/19 15:57 Physical Exam Vitals: Vital Signs Temp Pulse Pulse Resp BP BP Pulse Ox 04/25/19 15:40 99 F 104 H 18 166/100 04/25/19 13:02 98.2 F 113 H 20 171/120 97 Intake and Output 04/25/19 04/25/19 04/25/19 06:59 14:59 22:59 Other: Weight 117.027 kg 119.8 kg General: [non toxic], [no distress], [appears at stated age] Derm: [warm], [dry] Head: [atraumatic], [normocephalic], [symmetric] Eyes: [EOMI], [no lid lag], [anicteric sclera] Mouth: [no lip lesion], [mucus membranes moist] Cardiovascular: [S1S2 reg], [tachycardic], [positive DP pulse bilateral], Lungs: [CTA bilateral], [no rhonchi, no rales] , [no accessory muscle use] Abdominal: [soft], [ nontender to palpation], [no guarding], [no appreciable organomegaly] Ext: [no gross muscle atrophy], [no edema], [no contractures] Neuro: [ CN II-XI grossly intact], [no focal neuro deficits] Psych: [Alert], [oriented], [appropriate affect] Cranial Nerve Examination - Cranial Nerves Cranial Nerve II- Optic: Intact Cranial Nerve III- Oculomotor: Intact Cranial Nerve IV- Trochlear: Intact Cranial Nerve V- Trigeminal: Intact Cranial Nerve - Abducens: Intact Cranial Nerve VII- Facial: Intact Cranial Nerve VIII- Auditory: Intact Cranial Nerve IX- Glossopharyngeal: Intact Cranial Nerve X- Vagus: Intact Cranial Nerve XI- Accessory: Intact Cranial Nerve XII- Hypoglossal: Intact Assessment and Plan Assessment: Chest pain likely musculoskeletal also pleuritic Hypertension Depression and suicidal ideation Patient has a recent echocardiogram which shows EF 50-55% with moderate concentric LVH. Plans: Trend 2 troponin/EKG to rule out ACS. Patient has previously been evaluated by cardiology and cleared as his chest pain is likely not cardiac in nature. Continue aspirin and Lipitor. BP 166/100. Plans: Continue amlodipine, lisinopril, hydrochlorothiazide. Monitor vitals, adjust medications as necessary. Plans: Management as per psychiatry. [Thank you for this consultation. Please call with any additional questions or concerns.]
[2019-04-25] MEDS: LORazepam 1 MG TAB PO PRN (18:21)
[2019-04-25 19:59] LABS: Appearance,Urine Cloudy (Clear); Bacteria,Urine Few /hpf; Bilirubin,Urine Negative (Negative); Blood,Urine Negative (Negative); Color,Urine Yellow; Glucose,Urine (UA) Negative (Negative); Ketones,Urine Negative (Negative); Leukocyte Esterase,Urine Negative (Negative); Mucus,Urine Moderate /hpf; Nitrite,Urine Negative (Negative); Protein,Urine Trace (Negative); Specific Gravity,Urine 1.013 (1.001-1.035); Sperm,Urine Moderate /hpf; Squamous Epithelial Cell,Urine <1 /hpf (0-4); Urobilinogen,Urine <2.0 mg/dL (<2.0); WBC,Urine 2 /hpf (0-5)
[2019-04-25 20:06] LABS: Amphetamine Screen,Urine Not Detected (NotDetected); Barbiturate Screen,Urine Not Detected (NotDetected); Benzodiazepines Screen,Urine Not Detected (NotDetected); Cocaine Screen,Urine Not Detected (NotDetected); Methadone Screen, Urine Not Detected (NotDetected); Opiate Screen,Urine Not Detected (NotDetected); Oxycodone Screen, Urine Detected (NotDetected); Phencyclidine Screen,Urine Not Detected (NotDetected); Tricyclic Antidepressant,Urine Not Detected (NotDetected); Urn Cannabinoid Scrn Detected (NotDetected)
[2019-04-25] MEDS: MIRTAZAPINE 15 MG TAB PO SCH (20:51)
[2019-04-25] MEDS: ATORVASTATIN 40 MG TAB PO SCH (20:51)
[2019-04-26 07:21] LABS: Basophils # (A) 0.1 k/uL (0-0.2); Basophils % (A) 1 %; Eosinophils # (A) 0.4 k/uL (0-0.7); Eosinophils % (A) 6 %; HCT 43.8 % (39.0-53.0); HGB 15.5 gm/dL (13.0-17.5); Lymphocytes # (A) 2.1 k/uL (1.0-4.8); Lymphocytes % (A) 30 %; MCHC 35.3 g/dL (31.0-37.0); MCV 90.7 fL (80.0-100.0); Mean Platelet Volume 8.8; Monocytes # (A) 0.5 k/uL (0-1.0); Monocytes % (A) 8 %; Neutrophils # (A) 3.6 k/uL (1.3-7.7); Neutrophils % (A) 53 %; Platelet Count 243 k/uL (150-450); RBC 4.83 m/uL (4.30-5.90); RDW 14.2 % (11.5-15.5); WBC 6.9 k/uL (3.8-10.6)
[2019-04-26 07:26] LABS: ALT 39 U/L (4-49); AST 37 U/L (17-59); African American GFR (CKD) >90 (>60 ml/min/1.73 sqM); Albumin 3.9 g/dL (3.5-5.0); Alkaline Phosphatase 66 U/L (38-126); Anion Gap 7 mmol/L; Blood Urea Nitrogen 9 mg/dL (9-20); Calcium 9.1 mg/dL (8.4-10.2); Carbon Dioxide 29 mmol/L (22-30); Chloride 103 mmol/L (98-107); Cholesterol 129 mg/dL (<200); Glucose 95 mg/dL (74-99); HDL Cholesterol 41 mg/dL (40-60); LDL Cholesterol,Calculated 37 mg/dL (0-99); Non-African American GFR(CKD) >90 (>60 ml/min/1.73 sqM); Potassium 3.8 mmol/L (3.5-5.1); Sodium 139 mmol/L (137-145); Total Bilirubin 0.7 mg/dL (0.2-1.3); Total Protein 6.7 g/dL (6.3-8.2); Triglycerides 253 mg/dL (<150)
[2019-04-26] MEDS ORDERED: LISINOPRIL 20 MG TAB PO SCH (09:00)
[2019-04-26] MEDS ORDERED: ARIPiprazole 5 MG TAB PO SCH (09:00)
[2019-04-26] MEDS ORDERED: amLODIPine 10 MG TAB PO SCH (09:00)
[2019-04-26] MEDS ORDERED: HYDROCHLOROTHIAZIDE 25 MG TAB PO SCH (09:00)
[2019-04-26] MEDS: amLODIPine 10 MG TAB PO SCH (09:59)
[2019-04-26] MEDS: NICOTINE 14MG/24HR PATCH TRANSDERM SCH (09:59)
[2019-04-26] MEDS: ASPIRIN 325 MG TAB PO SCH (09:59)
[2019-04-26] MEDS: LISINOPRIL 20 MG TAB PO SCH (09:59)
[2019-04-26] MEDS: DULoxetine HCL 30 MG CAPSULE.DR PO SCH (09:59)
[2019-04-26] MEDS: HYDROCHLOROTHIAZIDE 25 MG TAB PO SCH (09:59)
--- NOTE | 2019-04-26 13:12 | P.HP ---
Psychiatric H&P - . H&P Date: 04/26/19 History & Physical: Allergies Allergy/AdvReac Type Severity Reaction Status Date / Time ibuprofen [From Motrin] AdvReac Nausea & Verified 04/25/19 15:57 Vomiting simvastatin [From Zocor] AdvReac Dizziness Verified 04/25/19 15:57 Vital Signs Temp 98.2 F 04/26/19 09:57 Pulse 123 H 04/26/19 09:57 Resp 20 04/26/19 09:57 BP 121/86 04/26/19 09:57 Pulse Ox 96 04/26/19 09:57 Intake & Output 04/25/19 04/26/19 04/26/19 18:59 06:59 18:59 Weight 119.8 kg Laboratory Last Values WBC 6.9 k/uL (3.8-10.6) 04/26/19 06:57 RBC 4.83 m/uL (4.30-5.90) 04/26/19 06:57 Hgb 15.5 gm/dL (13.0-17.5) 04/26/19 06:57 Hct 43.8 % (39.0-53.0) 04/26/19 06:57 MCV 90.7 fL (80.0-100.0) 04/26/19 06:57 MCH 32.0 pg (25.0-35.0) 04/26/19 06:57 MCHC 35.3 g/dL (31.0-37.0) 04/26/19 06:57 RDW 14.2 % (11.5-15.5) 04/26/19 06:57 Plt Count 243 k/uL (150-450) 04/26/19 06:57 Neutrophils % 53 % 04/26/19 06:57 Lymphocytes % 30 % 04/26/19 06:57 Monocytes % 8 % 04/26/19 06:57 Eosinophils % 6 % 04/26/19 06:57 Basophils % 1 % 04/26/19 06:57 Neutrophils # 3.6 k/uL (1.3-7.7) 04/26/19 06:57 Lymphocytes # 2.1 k/uL (1.0-4.8) 04/26/19 06:57 Monocytes # 0.5 k/uL (0-1.0) 04/26/19 06:57 Eosinophils # 0.4 k/uL (0-0.7) 04/26/19 06:57 Basophils # 0.1 k/uL (0-0.2) 04/26/19 06:57 Sodium 139 mmol/L (137-145) 04/26/19 06:57 Potassium 3.8 mmol/L (3.5-5.1) 04/26/19 06:57 Chloride 103 mmol/L (98-107) 04/26/19 06:57 Carbon Dioxide 29 mmol/L (22-30) 04/26/19 06:57 Anion Gap 7 mmol/L 04/26/19 06:57 BUN 9 mg/dL (9-20) 04/26/19 06:57 Creatinine 0.81 mg/dL (0.66-1.25) 04/26/19 06:57 Est GFR (CKD-EPI)AfAm >90 (>60 ml/min/1.73 sqM) 04/26/19 06:57 Est GFR (CKD-EPI)NonAf >90 (>60 ml/min/1.73 sqM) 04/26/19 06:57 Glucose 95 mg/dL (74-99) 04/26/19 06:57 Calcium 9.1 mg/dL (8.4-10.2) 04/26/19 06:57 Total Bilirubin 0.7 mg/dL (0.2-1.3) 04/26/19 06:57 AST 37 U/L (17-59) 04/26/19 06:57 ALT 39 U/L (4-49) 04/26/19 06:57 Alkaline Phosphatase 66 U/L (38-126) 04/26/19 06:57 Troponin I <0.012 ng/mL (0.000-0.034) 04/25/19 22:16 Total Protein 6.7 g/dL (6.3-8.2) 04/26/19 06:57 Albumin 3.9 g/dL (3.5-5.0) 04/26/19 06:57 Triglycerides 253 mg/dL (<150) H 04/26/19 06:57 Cholesterol 129 mg/dL (<200) 04/26/19 06:57 LDL Cholesterol, Calc 37 mg/dL (0-99) 04/26/19 06:57 HDL Cholesterol 41 mg/dL (40-60) 04/26/19 06:57 TSH 0.357 mIU/L (0.465-4.680) L 04/26/19 06:57 Urine Color Yellow 04/25/19 19:30 Urine Appearance Cloudy (Clear) 04/25/19 19:30 Urine pH 6.0 (5.0-8.0) 04/25/19 19:30 Ur Specific [employer] [place] 1.013 (1.001-1.035) 04/25/19 19:30 Urine Protein Trace (Negative) H 04/25/19 19:30 Urine Glucose (UA) Negative (Negative) 04/25/19:30 Urine Ketones Negative (Negative) 04/25/19: Urine Blood Negative (Negative) 04/25/19: Urine Nitrite Negative (Negative) 04/25/19: Urine Bilirubin Negative (Negative) 04/25/19:30 Urine Urobilinogen <2.0 mg/dL (<2.0) 04/25/19 19:30 Ur Leukocyte Esterase Negative (Negative) 04/25/19 19:30 Urine WBC 2 /hpf (0-5) 04/25/19 19:30 Ur Squamous Epith Cells <1 /hpf (0-4) 04/25/19 19:30 Urine Bacteria Few /hpf (None) H 04/25/19 19:30 Urine Mucus Moderate /hpf (None) H 04/25/19 19:30 Urine Sperm Moderate /hpf (None) H 04/25/19 19:30 Urine Opiates Screen Not Detected (NotDetected) 04/25/19 19:30 Ur Oxycodone Screen Detected (NotDetected) H 04/25/19 19:30 Urine Methadone Screen Not Detected (NotDetected) 04/25/19 19:30 Ur Propoxyphene Screen Not Detected (NotDetected) 04/25/19 19:30 Ur Barbiturates Screen Not Detected (NotDetected) 04/25/19 19:30 U Tricyclic Antidepress Not Detected (NotDetected) 04/25/19 19:30 Ur Phencyclidine Scrn Not Detected (NotDetected) 04/25/19 19:30 Ur Amphetamines Screen Not Detected (NotDetected) 04/25/19 19:30 U Methamphetamines Scrn Not Detected (NotDetected) 04/25/19 19:30 U Benzodiazepines Scrn Not Detected (NotDetected) 04/25/19 19:30 Urine Cocaine Screen Not Detected (NotDetected) 04/25/19 19:30 U Marijuana (THC) Screen Detected (NotDetected) H 04/25/19 19:30 04/26/19 13:05 IDENTIFYING DATA: 48-year-old male patient HPI: patient admitted to the inpatient psychiatric unit on a voluntary basis with recent depression and thoughts of suicide. Patient states that he tried to jump in front of a car yesterday in the car stopped and swerved. He says he came into the hospital on his own. He describes recent stressor of being homeless and says he can't go back to the care home due to marijuana and drug use. He relays that his mood is been depressed and he's had some ongoing thoughts of suicide. Says he was feeling better at the time of his discharge which was approximately 2 days prior to his readmission and he had a place to go to but when he got there the other people didn't want him there. He admits to some recent paranoid type thinking like someone is out to get him. He does state he has been consistent with his medications. He also admits to some recent mood swings and feeling agitated at times. PAST PSYCHIATRIC HISTORY: patient is had a recent admission him with discharge few days prior to the readmission he states he's had a total of 3 or 4 total admissions. He sees Dr. Stauffer through [facility] and counselor Janel through [facility]. Says he has had diagnoses of bipolar disorder and schizophrenia. He denies any history of hearing voices. Most recent diagnosis per history has been major depressive disorder recurrent. He states he's had a 3 or 4 suicide attempts. A couple times he took pills, one time he is going to cut his wrist and then he tried to jump in front of a couple of cars. Most recently has been on Remeron Cymbalta and Abilify. PMH:hypertension ALLERGIES: ibuprofen, simvastatin MEDICATIONS: Tylenol when necessary, Maalox when necessary, Norvasc, Abilify, as pirin, Lipitor, Cymbalta, hydro-diarrheal, Zestril, Ativan when necessary, milk of magnesia when necessary, Remeron, Habitrol patch, Nitrostat when necessary CHEMICAL DEPENDENCY HISTORY: says he was using OxyContin off the street for the past couple of days. Also used marijuana couple times since he was discharged. He does have a history of some heroin and meth use but has been without those from last 1-1-1/2 months. Denies alcohol use. FAMILY PSYCHIATRIC HISTORY: none known at this time. FAMILY CHEMICAL DEPENDENCY HISTORY: none known at this time. SOCIAL HISTORY: he is currently and . He has been 19 years. He has 4 children. He is not currently working and is not on disability. He relates that he is currently homeless. MENTAL STATUS EXAM: he is alert and cooperative with the interview. Speech is fluent, not rapid or pressured. Thought processes organized. He describes his mood as "sad." He denies any current thoughts of harm to self or others and r eports he feels safe here on the unit he denies any current hallucinations. He denies any current thoughts regarding others being out to get him.cognitively appears very grossly intact. I do not note any significant memory disturbance or disorientation. STRENGTHS/WEAKNESSES: strengthsseeking treatment; weaknessescoping skills, living situation stress (homeless) INTELLECTUAL FUNCTIONING: average IMPRESSIONS: major depressive disorder, recurrent rule out with psychosis; rule out schizoaffective disorder; history of cannabis use disorder; history of opioid use disorder; history of amphetamine use disorder PLAN: patient is readmitted to the inpatient psychiatric unit on a voluntary basis to help stabilize her depression and monitor regarding thoughts of suicide. SP [address]. He will participate in group and activity therapies. Baseline laboratory workup will be done the patient and medical consultation will be ordered. We'll maintain Cymbalta 90 motives daily and Remeron 30 motives at bedtime at this time. We'll adjust Abilify to 10 mg daily to help for augmentation regarding mood as well as some to help treat/prevent any psychosis-type symptoms. We will look into any support systems. Home estimated length of stay is 3-5 days. Prognosis is guarded.
[2019-04-26] MEDS: LORazepam 1 MG TAB PO PRN (14:49)
[2019-04-26] MEDS: MIRTAZAPINE 15 MG TAB PO SCH (20:50)
[2019-04-26] MEDS: ATORVASTATIN 40 MG TAB PO SCH (20:51)
[2019-04-27] MEDS: NICOTINE 14MG/24HR PATCH TRANSDERM SCH (08:10)
[2019-04-27] MEDS: LISINOPRIL 20 MG TAB PO SCH (08:11)
[2019-04-27] MEDS: DULoxetine HCL 30 MG CAPSULE.DR PO SCH (08:11)
[2019-04-27] MEDS: HYDROCHLOROTHIAZIDE 25 MG TAB PO SCH (08:11)
[2019-04-27] MEDS: amLODIPine 10 MG TAB PO SCH (08:11)
[2019-04-27] MEDS: ARIPiprazole 10 MG TAB PO SCH (08:11)
[2019-04-27] MEDS: ASPIRIN 325 MG TAB PO SCH (08:12)
[2019-04-27 12:12] LABS: Hemoglobin A1C 4.7 % (4.0-6.0)
[2019-04-27] MEDS: LORazepam 1 MG TAB PO PRN (14:47)
--- NOTE | 2019-04-27 15:59 | P.PN ---
Subjective Patient was seen and chart was reviewed. Case discussed with staff. The patient continues to report feeling depressed and anxious. He reports having crying spells but denies any panic attacks.Patient states that [he] was going to groups and trying to participate as best as [he] could. He reports poor sleep and good appetite.[] is continuing to deal with thoughts of wanting to isolate herself. At this time patient denies any homical ideations, intent or plan. Patient denies any auditory, visual hallucinations and denies any paranoia or delusions. Patient denies any side effects from the medications and has been compliant with meds. Objective - Vital Signs Vital signs: Vital Signs Temp 98.1 F 04/27/19 06:19 Pulse 77 04/27/19 06:19 Resp 16 04/27/19 06:19 BP 128/81 04/27/19 06:19 Pulse Ox 96 04/26/19 09:57 Intake & Output 04/26/19 04/27/19 04/27/19 18:59 06:59 18:59 Weight 119.9 kg - Exam Mental Status Exam: General Appearance: Patient appears to be stated age is alert, directable. poor hygiene and minimal grooming. Patient has good eye contact. Behavior: Patient is seated without any agitated behavior. Speech: Patient's speech is normal tone and low volume. soft tone. Mood/Affect: Depressed mood, affect is congruent Suicidality/Homicidality: He reports having SI with plans to cut his wrist. Patient denies having any homicidal ideation intent or plan. Perceptions: Patient denies any auditory or visual hallucinations. Though content/process: There is no evidence of any delusional thought content and thought process is linear and goal-directed. Memory and concentration: AOX3, grossly intact for the purposes of this session. Judgment and insight: Limited - Labs CBC & Chem 7: 04/26/19 06:57 04/26/19 06:57 Assessment and Plan Assessment: major depressive disorder, recurrent rule out with psychosis; rule out schizoaffective disorder; history of cannabis use disorder; history of opioid use disorder; history of amphetamine use disorder Plan: Plan: -Patient continues to meet criteria for inpatient psychiatric admission for symptom stabilization and safety. Patient has signed adult voluntary form and medication consent and was placed in patient's chart. -Medications: Continue Cymbalta 90 mg PO qam Abilify 10 mg PO qam Remeron 30 mg PO qhs. -NRT - -SW on board for discharge planning.
[2019-04-27] MEDS: ATORVASTATIN 40 MG TAB PO SCH (20:54)
[2019-04-27] MEDS: MIRTAZAPINE 15 MG TAB PO SCH (20:54)
[2019-04-28] MEDS: ASPIRIN 325 MG TAB PO SCH (08:36)
[2019-04-28] MEDS: NICOTINE 14MG/24HR PATCH TRANSDERM SCH (08:36)
[2019-04-28] MEDS: LISINOPRIL 20 MG TAB PO SCH (08:36)
[2019-04-28] MEDS: DULoxetine HCL 30 MG CAPSULE.DR PO SCH (08:37)
[2019-04-28] MEDS: HYDROCHLOROTHIAZIDE 25 MG TAB PO SCH (08:37)
[2019-04-28] MEDS: ARIPiprazole 10 MG TAB PO SCH (08:37)
[2019-04-28] MEDS: amLODIPine 10 MG TAB PO SCH (08:37)
[2019-04-28] MEDS: LORazepam 1 MG TAB PO PRN (10:28)
--- NOTE | 2019-04-28 14:59 | P.PN ---
Subjective Patient was seen and chart was reviewed. Case discussed with staff. The patient continues to report feeling depressed and anxious. He reports having crying spells but denies any panic attacks. Patient states that [he] was going to groups and trying to participate as best as [he] could. He reports poor sleep and good appetite.[He] is continuing to isolate himself. At this time patient denies any homical ideations, intent or plan but reports lack of desire to live anymore but denies any thoughts or intent to hurt himself. Patient denies any a uditory, visual hallucinations and denies any paranoia or delusions. Patient denies any side effects from the medications and has been compliant with meds. Objective - Vital Signs Vital signs: Vital Signs Temp 97.5 F L 04/28/19 06:30 Pulse 102 H 04/28/19 08:35 Resp 16 04/28/19 06:30 BP 156/88 04/28/19 08:35 Pulse Ox 96 04/26/19 09:57 - Exam Mental Status Exam: General Appearance: Patient appears to be stated age is alert, directable. poor hygiene and minimal grooming. Patient has good eye contact. Behavior: Patient is seated without any agitated behavior. Speech: Patient's speech is normal tone and low volume. soft tone. Mood/Affect: Depressed mood, affect is congruent Suicidality/Homicidality: He reports having SI with plans to cut his wrist. Patient denies having any homicidal ideation intent or plan. Perceptions: Patient denies any auditory or visual hallucinations. Though content/process: There is no evidence of any delusional thought content and thought process is linear and goal-directed. Memory and concentration: AOX3, grossly intact for the purposes of this session. Judgment and insight: Limited - Labs CBC & Chem 7: 04/26/19 06:57 04/26/19 06:57 Assessment and Plan Assessment: major depressive disorder, recurrent rule out with psychosis; rule out schizo affective disorder; history of cannabis use disorder; history of opioid use disorder; history of amphetamine use disorder Plan: Plan: -Patient continues to meet criteria for inpatient psychiatric admission for symptom stabilization and safety. Patient has signed adult voluntary form and medication consent and was placed in patient's chart. -Medications: Continue Cymbalta 90 mg PO qam Abilify 10 mg PO qam Remeron 30 mg PO qhs. Will start Seroquel 50 mg PO qhs. -NRT - -SW on board for discharge planning.
[2019-04-28] MEDS ORDERED: QUEtiapine 50 MG TAB PO SCH (21:00)
[2019-04-28] MEDS: MIRTAZAPINE 15 MG TAB PO SCH (21:35)
[2019-04-28] MEDS: ATORVASTATIN 40 MG TAB PO SCH (21:35)
[2019-04-29] MEDS: NICOTINE 14MG/24HR PATCH TRANSDERM SCH (09:03)
[2019-04-29] MEDS: ASPIRIN 325 MG TAB PO SCH (09:03)
[2019-04-29] MEDS: LISINOPRIL 20 MG TAB PO SCH (09:03)
[2019-04-29] MEDS: ARIPiprazole 10 MG TAB PO SCH (09:03)
[2019-04-29] MEDS: DULoxetine HCL 30 MG CAPSULE.DR PO SCH (09:03)
[2019-04-29] MEDS: HYDROCHLOROTHIAZIDE 25 MG TAB PO SCH (09:03)
[2019-04-29] MEDS: amLODIPine 10 MG TAB PO SCH (09:04)
--- NOTE | 2019-04-29 14:26 | P.PN ---
Subjective Progress Note Date: 04/29/19 Patient was seen and chart was reviewed. Case discussed with staff. The patient continues to reports increased depression and anxiety today. The patient reports that he feels lonely being in the hospital on the holiday. He reports having crying spells but denies any panic attacks. Patient states that [he] was going to groups and trying to participate as best as [he] could. He reports poor sleep and good appetite.[He] is continuing to isolate himself. At this time patient denies any suicidal or homical ideations, intent or plan but reports lack of desire to live anymore but denies any thoughts or intent to hurt himself. Patient denies any auditory, visual hallucinations but reports vague paranoid ideations. Patient denies any side effects from the medications and has been compliant with meds. Objective - Vital Signs Vital signs: Vital Signs Temp 97.7 F 04/29/19 09:07 Pulse 115 H 04/29/19 09:07 Resp 18 04/29/19 09:07 BP 145/92 04/29/19 09:07 Pulse Ox 96 04/26/19 09:57 - Exam Mental Status Exam: General Appearance: Patient appears to be stated age is alert, directable. poor hygiene and minimal grooming. Patient has good eye contact. Behavior: Patient is seated without any agitated behavior. Speech: Patient's speech is normal tone and low volume. soft tone. Mood/Affect: Depressed mood, affect is congruent Suicidality/Homicidality: He reports having SI with plans to cut his wrist. Patient denies having any homicidal ideation intent or plan. Perceptions: Patient denies any auditory or visual hallucinations. Though content/process: There is no evidence of any delusional thought content and thought process is linear and goal-directed. Memory and concentration: AOX3, grossly intact for the purposes of this session. Judgment and insight: Limited - Labs CBC & Chem 7: 04/26/19 06:57 04/26/19 06:57 Assessment and Plan Assessment: major depressive disorder, recurrent rule out with psychosis; rule out schizoaffective disorder; history of cannabis use disorder; history of opioid use disorder; history of amphetamine use disorder Plan: Plan: -Patient continues to meet criteria for inpatient psychiatric admission for symptom stabilization and safety. Patient has signed adult voluntary form and medication consent and was placed in patient's chart. -Medications: Continue Cymbalta 90 mg PO qam Abilify 10 mg PO qam Remeron 30 mg PO qhs. Will increase Seroquel 100 mg PO qhs. -NRT - -SW on board for discharge planning.
[2019-04-29] MEDS: LORazepam 1 MG TAB PO PRN (19:10)
[2019-04-29] MEDS: ATORVASTATIN 40 MG TAB PO SCH (20:46)
[2019-04-29] MEDS: MIRTAZAPINE 15 MG TAB PO SCH (20:46)
[2019-04-29] MEDS ORDERED: QUEtiapine 100 MG TAB PO SCH (21:00)
[2019-04-30] MEDS: NICOTINE 14MG/24HR PATCH TRANSDERM SCH (08:50)
[2019-04-30] MEDS: DULoxetine HCL 30 MG CAPSULE.DR PO SCH (08:51)
[2019-04-30] MEDS: amLODIPine 10 MG TAB PO SCH (08:51)
[2019-04-30] MEDS: HYDROCHLOROTHIAZIDE 25 MG TAB PO SCH (08:51)
[2019-04-30] MEDS: ASPIRIN 325 MG TAB PO SCH (08:51)
[2019-04-30] MEDS: ARIPiprazole 10 MG TAB PO SCH (08:51)
[2019-04-30] MEDS: LISINOPRIL 20 MG TAB PO SCH (08:52)
--- NOTE | 2019-04-30 11:49 | P.PN ---
Progress Note - Text Progress Note Date: 04/30/19 Interval History: Patient was seen today participating in group and was calm and directable agre eable to speak to verse writer in the office. Patient appears to have improving hygiene and grooming. Patient states that he had to come back to the hospital as "I didn't have a place to go". He states that the woman that he was going to live with got kicked out of the house where he was going to stay with her and claims that it was because of him. He states that he also tried to reach out to his daughter to stay with her however she moved out of her old house and in 2 somewhere else with another man and he was not allowed. He states that at the custodial he was not allowed to go as she was using marijuana and would fail the urine drug screen test. Patient also states that he continues to have depression as he has nowhere to go however did state that he would feel much better in terms of his mood if he had a option for housing. He spoke about possibly going to the [facility] across the street without was a possibility. Patient claims been going to groups and try to participate however continues to state that his sleep is poor and requested to have an increase in his Seroquel. He also states that he was having suicidal thoughts today which were fleeting. At this time patient denies any homical ideations, intent or plan. Patient denies any auditory, visual hallucinations and denies any paranoia or delusions. Patient denies any side effects from the medications and has been compliant with meds. Mental Status Exam: General Appearance: Patient appears to be overweight, older than stated age is alert, attempts to cooperate however superficial. Poor hygiene and grooming. Behavior: Patient is calmly seated without any agitated behavior. Superficially cooperative. Speech: Patient's speech is fluent and nonpressured. Mood/Affect: Mood is improving mildly, affect is congruent and constricted. Suicidality/Homicidality: Patient denies having any suicidal or homicidal ideation intent or plan. Perceptions: Patient denies any auditory or visual hallucinations. Though content/process: There is no evidence of any delusional thought content and thought process is linear and goal-directed. Patient was preoccupied with housing. Memory and concentration: AOX3, grossly intact for the purposes of this session Judgment and insight: Poor/superficial, mildly improving. Assessment Major depressive disorder without psychosis Cannabis use disorder History of opiate use disorder History of methamphetamine use disorder Plan: -Patient continues to meet criteria for inpatient psychiatric admission for symptom stabilization and safety. Patient has signed adult voluntary form and medication consent and was placed in patient's chart. -Medications: Will increase Cymbalta to 60 mg twice a day for mood/anxiety. We'll also continue with Abilify 10 mg daily as mood adjunct/mood stabilization. Will increase Seroquel to 150 mg daily at bedtime for mood stabilization/depression. Continue the Remeron 30 mg daily at bedtime for insomnia/mood. -When necessary Ativan for agitation/aggression. -NRT - nicotine patch -SW on board for discharge planning. We'll look into alternate housing options at this time. Patient was initially resistant to going to custodial upon discha glima.
[2019-04-30] MEDS: LORazepam 1 MG TAB PO PRN (15:03)
[2019-04-30] MEDS: ATORVASTATIN 40 MG TAB PO SCH (20:35)
[2019-04-30] MEDS: MIRTAZAPINE 15 MG TAB PO SCH (20:35)
[2019-04-30] MEDS: DULoxetine HCL 60 MG CAPSULE.DR PO SCH (20:35)
[2019-04-30] MEDS ORDERED: QUEtiapine 50 MG TAB PO SCH (21:00)
[2019-05-01] MEDS: amLODIPine 10 MG TAB PO SCH (09:18)
[2019-05-01] MEDS: ASPIRIN 325 MG TAB PO SCH (09:18)
[2019-05-01] MEDS: NICOTINE 14MG/24HR PATCH TRANSDERM SCH (09:18)
[2019-05-01] MEDS: ARIPiprazole 10 MG TAB PO SCH (09:18)
[2019-05-01] MEDS: LISINOPRIL 20 MG TAB PO SCH (09:19)
[2019-05-01] MEDS: DULoxetine HCL 60 MG CAPSULE.DR PO SCH ×2 (09:19→20:39)
[2019-05-01] MEDS: HYDROCHLOROTHIAZIDE 25 MG TAB PO SCH (09:19)
[2019-05-01] MEDS: LORazepam 1 MG TAB PO PRN (11:28)
--- NOTE | 2019-05-01 11:29 | P.PN ---
Progress Note - Text Progress Note Date: 05/01/19 Interval History: Patient was seen today participating in group and was calm and directable agre eable to speak to justowriter operator in the office. Patient appears to continue to have a depressed affect and states that he spoke with his that he is from and states that she has found another place to live and stated to him that he is not welcome to live with her at this time. Patient states that he's been feeling "bad about that". He does claim that he is looking into other options for housing which gives him more hope. He continues to endorse hopelessness and fleeting thoughts of suicide. He states that he slept poorly last night claims that he was "tossing and turning". He asked justowriter operator if he could have his Seroquel increased. Patient claims that he has been making an effort to go to groups and has been finding them helpful. He has been eating his meals and has fair energy during the day. At this time patient denies any homical ideations, intent or plan. Patient denies any auditory, visual hallucinations and denies any paranoia or delusions. Patient denies any side effects from the medications and has been compliant with meds. Mental Status Exam: General Appearance: Patient appears to be overweight, older than stated age is alert, attempts to cooperate. Poor hygiene and grooming, mildly improving. Behavior: Patient is calmly seated without any agitated behavior. Superficially cooperative. Speech: Patient's speech is fluent and nonpressured. Mood/Affect: Mood is "bad", affect is congruent and constricted. Suicidality/Homicidality: Patient denies having any homicidal ideation intent or plan. Patient endorses fleeting thoughts of suicide however no intent or plan. Perceptions: Patient denies any auditory or visual hallucinations. Though content/process: There is no evidence of any delusional thought content and thought process is linear and goal-directed. Patient was preoccupied with housing. Memory and concentration: AOX3, grossly intact for the purposes of this session Judgment and insight: Poor/superficial, mildly improving. Assessment Major depressive disorder without psychosis Cannabis use disorder History of opiate use disorder History of methamphetamine use disorder Plan: -Patient continues to meet criteria for inpatient psychiatric admission for symptom stabilization and safety. Patient has signed adult voluntary form and medication consent and was placed in patient's chart. -Medications: Will continue with Cymbalta to 60 mg twice a day for mood/anxiety. We'll also continue with Abilify 10 mg daily as mood adjunct/mood stabilization. Will increase Seroquel to 200 mg daily at bedtime for mood stabilization/depression. Continue the Remeron 30 mg daily at bedtime for insomnia/mood. Added melatonin 6 mg daily at bedtime for sleep. -When necessary Ativan for agitation/aggression. -NRT - nicotine patch -SW on board for discharge planning. We'll continue looking into housing options at this time. Patient was more open today to go to a care home that will accept him upon discharge.
[2019-05-01 13:44] VITALS: BMI 39.0
[2019-05-01] MEDS: MIRTAZAPINE 15 MG TAB PO SCH (20:38)
[2019-05-01] MEDS: ATORVASTATIN 40 MG TAB PO SCH (20:39)
[2019-05-01] MEDS: MELATONIN 3 MG TABLET PO SCH (20:39)
[2019-05-01] MEDS ORDERED: QUEtiapine 200 MG TAB PO SCH (21:00)
[2019-05-02] MEDS: LORazepam 1 MG TAB PO PRN ×2 (03:29→15:15)
[2019-05-02] MEDS: NICOTINE 14MG/24HR PATCH TRANSDERM SCH (08:48)
[2019-05-02] MEDS: amLODIPine 10 MG TAB PO SCH (08:49)
[2019-05-02] MEDS: ASPIRIN 325 MG TAB PO SCH (08:49)
[2019-05-02] MEDS: DULoxetine HCL 60 MG CAPSULE.DR PO SCH ×2 (08:49→20:09)
[2019-05-02] MEDS: LISINOPRIL 20 MG TAB PO SCH (08:49)
[2019-05-02] MEDS: HYDROCHLOROTHIAZIDE 25 MG TAB PO SCH (08:49)
[2019-05-02] MEDS: ARIPiprazole 10 MG TAB PO SCH (08:49)
[2019-05-02] MEDS: MAG HYDROX/AL HYDROX/SIMETH 30 ML CUP PO PRN (11:07)
--- NOTE | 2019-05-02 16:28 | P.PN ---
Progress Note - Text Progress Note Date: 05/02/19 Subjective: Patient was seen today as a cross coverage for Dr. Patten. The patient was evaluated, chart reviewed, case discussed with the treatment team. Patient reported interrupted sleep, and according to chart review patient slept about 4 hours last night. Appetite was reported as " fine". Patient has been going to groups and other unit activities. The patient is compliant with his medications and denies any adverse reactions. Patient reports still has trouble going to sleep with interrupted sleep. He reports improvement of his depression but still has times feeling increasingly depressed and he still has suicidal ideation. He denies any auditory or visual hallucinations. He denies paranoid ideation. Denies any manic symptoms. Denies any physical symptoms including chest pain, shortness of breath, diarrhea, constipation, or burning urination. Objective: Vitals has been reviewed. Mental status examination; General Appearance: Patient appears to be overweight, older than stated age is alert, attempts to cooperate. better hygiene and grooming, mildly improving. Behavior: Patient is calmly seated without any agitated behavior. Superficially cooperative. Speech: Patient's speech is fluent and nonpressured. Mood/Affect: Mood is "better but still feeling depressed", affect is congruent and constricted. Suicidality/Homicidality: Patient denies having any homicidal ideation intent or plan. Patient endorses fleeting thoughts of suicide however no intent or plan. Perceptions: Patient denies any auditory or visual hallucinations. Though content/process: There is no evidence of any delusional thought content and thought process is linear and goal-directed. Patient was preoccupied with housing. Memory and concentration: AOX3, grossly intact for the purposes of this session Judgment and insight: Poor/superficial, mildly improving. Assessment: Major depressive disorder without psychosis Cannabis use disorder History of opiate use disorder History of methamphetamine use disorder Plan: Continue inpatient level of care due to need for further stabilization on medications Precautions: Continue 15 minutes check for safety. Consider medical consultation if any acute medical issues arise. Provide the patient individual, group therapy, substance use disorder counseling to give better insight and learn coping skills. Medications: Abilify 10 mg daily for mood stabilization. Cymbalta 60 mg twice daily for depression and anxiety. Mental 6 mg at bedtime to help with insomnia. Remeron 60 mg at bedtime for depression/anxiety and to help was insomnia. Seroquel and increase the dose from 200 to 300 mg at bedtime for psychotic symptoms, mood stabilization, and attempt was insomnia. Discharge patient to OUTPATIENT services upon a stabilization
[2019-05-02] MEDS: ACETAMINOPHEN TAB 325 MG TAB PO PRN ×2 (16:55→20:09)
[2019-05-02] MEDS: QUEtiapine 100 MG TAB PO SCH (20:09)
[2019-05-02] MEDS: ATORVASTATIN 40 MG TAB PO SCH (20:09)
[2019-05-02] MEDS: MELATONIN 3 MG TABLET PO SCH (20:09)
[2019-05-02] MEDS: MIRTAZAPINE 15 MG TAB PO SCH (20:09)
[2019-05-03] MEDS: LISINOPRIL 20 MG TAB PO SCH (08:44)
[2019-05-03] MEDS: HYDROCHLOROTHIAZIDE 25 MG TAB PO SCH (08:44)
[2019-05-03] MEDS: amLODIPine 10 MG TAB PO SCH (08:44)
[2019-05-03] MEDS: NICOTINE 14MG/24HR PATCH TRANSDERM SCH (08:44)
[2019-05-03] MEDS: ARIPiprazole 10 MG TAB PO SCH (08:44)
[2019-05-03] MEDS: DULoxetine HCL 60 MG CAPSULE.DR PO SCH ×2 (08:45→20:43)
[2019-05-03] MEDS: ASPIRIN 325 MG TAB PO SCH (09:54)
--- NOTE | 2019-05-03 13:01 | P.PN ---
Progress Note - Text Progress Note Date: 05/03/19 Subjective: Patient was seen today as a cross coverage for Dr. Patten. The patient was evaluated, chart reviewed, case discussed with the treatment team. Patient presented very sad, and was isolating himself in his room. He reports feeling tired, continued to feel depressed and suicidal. He denies any plan to hurt himself or others. Reports increasing Seroquel last night helping him to fall asleep but he couldn't stay asleep. He denies any hallucinations, paranoid ideation, and no delusions could be elicited. No manic symptoms have been reported or noticed. Patient takes his medications and denies adverse reaction. Patient is currently on multiple antidepressant medication with maximum dose of Cymbalta. Discussed with the patient increase Remeron to 45 mg at nighttime and he agreed. Objective: Vitals has been reviewed. Mental status examination; General Appearance: Patient appears to be overweight, older than stated age is alert. Fair hygiene and grooming, mildly improving. Behavior: Patient is calmly seated without any agitated behavior. Superficially cooperative. Speech: Patient's speech is fluent and non-pressured. Mood/Affect: Mood is "depressed", affect is congruent and constricted. Suicidal/Homicidal ideation: Patient denies having any homicidal ideation intent or plan. Patient reports suicide however no intent or plan. Perceptions: Patient denies any auditory or visual hallucinations. Though content/process: There is no evidence of any delusional thought content and thought process is linear and goal-directed. Memory and concentration: AOX3, grossly intact for the purposes of this session Judgment and insight: Poor/superficial, mildly improving. Assessment: Major depressive disorder without psychosis Cannabis use disorder History of opiate use disorder History of methamphetamine use disorder Plan: Continue inpatient level of care due to need for further stabilization on medications Precautions: Continue 15 minutes check for safety. Consider medical consultation if any acute medical issues arise. Provide the patient individual, group therapy, substance use disorder counseling to give better insight and learn coping skills. Medications: Abilify 10 mg daily for mood stabilization. Cymbalta 60 mg twice daily for depression and anxiety. Mental 6 mg at bedtime to help with insomnia. Increase Remeron 45 mg at bedtime for depression/anxiety and to help was insomnia. Seroquel 300 mg at bedtime for psychotic symptoms, mood stabilization, and attempt was insomnia. Discharge patient to OUTPATIENT services upon a stabilization
[2019-05-03 15:13] LABS: Appearance,Urine Clear (Clear); Bilirubin,Urine Negative (Negative); Blood,Urine Negative (Negative); Color,Urine Light Yellow; Glucose,Urine (UA) Negative (Negative); Ketones,Urine Negative (Negative); Leukocyte Esterase,Urine Negative (Negative); Nitrite,Urine Negative (Negative); Protein,Urine Negative (Negative); Specific Gravity,Urine 1.006 (1.001-1.035); Urobilinogen,Urine <2.0 mg/dL (<2.0)
[2019-05-03 15:32] LABS: Amphetamine Screen,Urine Not Detected (NotDetected); Barbiturate Screen,Urine Not Detected (NotDetected); Benzodiazepines Screen,Urine Detected (NotDetected); Cocaine Screen,Urine Not Detected (NotDetected); Methadone Screen, Urine Not Detected (NotDetected); Opiate Screen,Urine Not Detected (NotDetected); Oxycodone Screen, Urine Not Detected (NotDetected); Phencyclidine Screen,Urine Not Detected (NotDetected); Tricyclic Antidepressant,Urine Detected (NotDetected); Urn Cannabinoid Scrn Not Detected (NotDetected)
--- NOTE | 2019-05-03 16:16 | P.PN ---
Subjective Progress Note Date: 05/03/19 Principal diagnosis: flank pain Patient is a 48 show male past medical history of hypertension, COPD, dyslipidemia, and prior kidney stone is currently in the mental health unit. Today he complains of left-sided flank pain with radiation to his groin. He sta ofe it is occurring TIME and not only with urination. He also describes some dysuria. He denies any blood in his urine. He denies any nausea, vomiting, diarrhea, or constipation. He states he has a history of kidney stones in the past and his left kidney stones approximately 4 years ago. No other complaints currently. He states this just started yesterday and has been worsening. Objective - Vital Signs Vital signs: Vital Signs Temp 97.8 F 05/03/19 06:53 Pulse 91 05/03/19 06:53 Resp 18 05/03/19 06:53 BP 119/57 05/03/19 06:53 Pulse Ox 98 05/01/19 04:15 Intake & Output 05/02/19 05/03/19 05/03/19 18:59 06:59 18:59 Weight 125.7 kg - Exam General: non toxic, no distress, appears at stated age, obese Derm: warm, dry, multiple tattoos Head: atraumatic, normocephalic, symmetric Eyes: EOMI, no lid lag, anicteric sclera Mouth: no lip lesion, mucus membranes moist Cardiovascular: S1S2 reg, no murmur, positive posterior tibial pulse bilateral, Lungs: CTA bilateral, no rhonchi, no rales , no accessory muscle use Abdominal: soft, nontender to palpation, no guarding, no appreciable organomegaly, no CVA tenderness Psych: Alert, oriented, flat affect - Labs CBC & Chem 7: 04/26/19 06:57 04/26/19 06:57 Labs: Abnormal Lab Results - Last 24 Hours (Table) 05/03/19 Range/Units 14:48 U Tricyclic Antidepress Detected H (NotDetected) U Benzodiazepines Scrn Detected H (NotDetected) Assessment and Plan Assessment: 1. Left sided flank pain-urinalysis was ordered earlier today and is negative. Secondary to patient's history of renal stones will order computed tomography scan without contrast to rule out nephrolithiasis. Continue with Tylenol. Patient has not tolerated Motrin in the past secondary to nausea and vomiting. Could use 1 dose of IM Toradol if needed for pain. 2. Hypertension -Norvasc, Dyazide, lisinopril, follow blood pressure 3. Dyslipidemia-Lipitor
--- NOTE | 2019-05-03 16:19 | CT ---
EXAMINATION TYPE: CT abdomen pelvis wo con DATE OF EXAM: 05/03/2019 COMPARISON: May 15, 2018 HISTORY: Left side flank pain. CT DLP: 1444.4 mGycm Automated exposure control for dose reduction was used. Lung bases are clear. There is no pleural effusion. Heart size is normal. Liver spleen pancreas appear normal. Gallbladder is contracted. Bile ducts are not dilated. Stomach i s intact. There is no adrenal mass. Kidneys have normal size. There is 4 mm calculus posterior left kidney. Ure ters are not dilated. There is no hydronephrosis. There is no retroperitoneal adenopathy. Appendix ap pears normal. Bladder distends smoothly. There is no inguinal hernia. There is no free fluid in the pelvis. Lumbar vertebra have normal alignment. Disc spaces are fairly normal. Posterior elements are intact. Bony pe lvis is intact. There is no mesenteric edema. There is no ascites or free air. There is no sign of a bowel obstructio n. IMPRESSION: Nonobstructing small left renal calculus. Normal appendix. No adverse change compared to old exam.
[2019-05-03] MEDS: ACETAMINOPHEN TAB 325 MG TAB PO PRN (16:50)
[2019-05-03] MEDS: LORazepam 1 MG TAB PO PRN (16:50)
[2019-05-03] MEDS: KETOROLAC 30 MG/ML 1 ML VIAL IM SCH (20:41)
[2019-05-03] MEDS: ATORVASTATIN 40 MG TAB PO SCH (20:42)
[2019-05-03] MEDS: MELATONIN 3 MG TABLET PO SCH (20:43)
[2019-05-03] MEDS: MIRTAZAPINE 45 MG TABLET PO SCH (20:43)
[2019-05-03] MEDS: QUEtiapine 100 MG TAB PO SCH (20:43)
[2019-05-04] MEDS: MAG HYDROX/AL HYDROX/SIMETH 30 ML CUP PO PRN (01:34)
[2019-05-04] MEDS: KETOROLAC 30 MG/ML 1 ML VIAL IM SCH ×2 (02:50→09:20)
[2019-05-04] MEDS: amLODIPine 10 MG TAB PO SCH (09:18)
[2019-05-04] MEDS: NICOTINE 14MG/24HR PATCH TRANSDERM SCH (09:18)
[2019-05-04] MEDS: HYDROCHLOROTHIAZIDE 25 MG TAB PO SCH (09:19)
[2019-05-04] MEDS: LISINOPRIL 20 MG TAB PO SCH (09:19)
[2019-05-04] MEDS: ARIPiprazole 10 MG TAB PO SCH (09:19)
[2019-05-04] MEDS: LORazepam 1 MG TAB PO PRN (09:19)
[2019-05-04] MEDS: ASPIRIN 325 MG TAB PO SCH (09:19)
[2019-05-04] MEDS: DULoxetine HCL 60 MG CAPSULE.DR PO SCH ×2 (09:19→20:43)
--- NOTE | 2019-05-04 12:17 | P.PN ---
Subjective Progress Note Date: 05/04/19 Patient was seen and chart was reviewed. Case discussed with staff. The patient continues to report increased depression and anxiety today and feels that his antidepressant has not been working. The patient reports that he feels helpless and helpless. He reports having crying spells but denies any panic attacks. Patient states that [he] was going to groups and trying to participate as best as [he] could. He reports good sleep and good appetite.[He] is continuing to isolate himself. He reports having suicidal ideation with plans to cut his wrist. He denies any Homicidal ideations but reports paranoid ideations Patient denies any auditory, visual hallucinations but reports vague paranoid ideations. Patient denies any side effects from the medications and has been compliant with meds. Objective - Vital Signs Vital signs: Vital Signs Temp 97.9 F 05/04/19 05:37 Pulse 104 H 05/04/19 05:37 Resp 16 05/04/19 05:37 BP 119/75 05/04/19 05:37 Pulse Ox 98 05/01/19 04:15 Intake & Output 05/03/19 05/04/19 05/04/19 18:59 06:59 18:59 Weight 125.7 kg - Exam Mental Status Exam: General Appearance: Patient appears to be stated age is alert, directable. poor hygiene and minimal grooming. Patient has good eye contact. Behavior: Patient is seated without any agitated behavior. Speech: Patient's speech is normal tone and low volume. soft tone. Mood/Affect: Depressed mood, affect is congruent Suicidality/Homicidality: He reports having SI with plans to cut his wrist. Patient denies having any homicidal ideation intent or plan. Perceptions: Patient denies any auditory or visual hallucinations. Though content/process: There is no evidence of any delusional thought content and thought process is linear and goal-directed. Memory and concentration: AOX3, grossly intact for the purposes of this session. Judgment and insight: Limited - Labs CBC & Chem 7: 04/26/19 06:57 04/26/19 06:57 Labs: Abnormal Lab Results - Last 24 Hours (Table) 05/03/19 Range/Units 14:48 U Tricyclic Antidepress Detected H (NotDetected) U Benzodiazepines Scrn Detected H (NotDetected) Assessment and Plan Assessment: major depressive disorder, recurrent rule out with psychosis; rule out schizoaffective disorder; history of cannabis use disorder; history of opioid use disorder; history of amphetamine use disorder Plan: Plan: -Patient continues to meet criteria for inpatient psychiatric admission for symptom stabilization and safety. Patient has signed adult voluntary form and medication consent and was placed in patient's chart. One to one support and psychotherapy. -Medications: Continue Abilify 10 mg daily for mood stabilization. Continue Cymbalta 60 mg twice daily for depression and anxiety. Continue Melatonin 6 mg at bedtime to help with insomnia. Continue Remeron 45 mg at bedtime for depression/anxiety and to help was insomnia. Continue Seroquel 300 mg at bedtime for psychotic symptoms, mood stabilization, and attempt was insomnia. -NRT - -SW on board for discharge planning.
[2019-05-04] MEDS: QUEtiapine 100 MG TAB PO SCH (20:43)
[2019-05-04] MEDS: MELATONIN 3 MG TABLET PO SCH (20:43)
[2019-05-04] MEDS: MIRTAZAPINE 45 MG TABLET PO SCH (20:43)
[2019-05-04] MEDS: ATORVASTATIN 40 MG TAB PO SCH (20:43)
[2019-05-05] MEDS: NICOTINE 14MG/24HR PATCH TRANSDERM SCH (08:37)
[2019-05-05] MEDS: amLODIPine 10 MG TAB PO SCH (08:38)
[2019-05-05] MEDS: HYDROCHLOROTHIAZIDE 25 MG TAB PO SCH (08:39)
[2019-05-05] MEDS: LISINOPRIL 20 MG TAB PO SCH (08:39)
[2019-05-05] MEDS: DULoxetine HCL 60 MG CAPSULE.DR PO SCH ×2 (08:39→20:44)
[2019-05-05] MEDS: ARIPiprazole 10 MG TAB PO SCH (08:39)
[2019-05-05] MEDS: ASPIRIN 325 MG TAB PO SCH (08:39)
[2019-05-05] MEDS: LORazepam 1 MG TAB PO PRN (11:48)
--- NOTE | 2019-05-05 11:49 | P.PN ---
Subjective Progress Note Date: 05/05/19 Patient was seen and chart was reviewed. Case discussed with staff. The patient continues to report feeling depressed and anxious. The patient reports occasional crying spells but denies any panic attacks. Patient reports some improvement in his sleep and feels a little more rested today. The patient reports that improved appetite. The patient is somewhat somatically focused but is easily redirectable. The patient attends some milieu therapy. The patient is pleasant and cooperative during the session. His speech is goal directed and logical. He continues to report auditory hallucinations telling him to take his own life. Patient denies any side effects from the medications and has been compliant with meds. Objective - Vital Signs Vital signs: Vital Signs Temp 97.8 F 05/05/19 02:51 Pulse 112 H 05/05/19 08:44 Resp 16 05/04/19 05:37 BP 125/110 05/05/19 08:44 Pulse Ox 98 05/01/19 04:15 - Exam Mental Status Exam: General Appearance: Patient appears to be stated age is alert, directable. poor hygiene and minimal grooming. Patient has good eye contact. Behavior: Patient is seated without any agitated behavior. Speech: Patient's speech is normal tone and low volume. soft tone. Mood/Affect: Depressed mood, affect is congruent Suicidality/Homicidality: He reports having SI with plans to cut his wrist. Patient denies having any homicidal ideation intent or plan. Perceptions: Patient denies any auditory or visual hallucinations. Though content/process: There is no evidence of any delusional thought content and thought process is linear and goal-directed. Memory and concentration: AOX3, grossly intact for the purposes of this session. Judgment and insight: Limited - Labs CBC & Chem 7: 04/26/19 06:57 04/26/19 06:57 Assessment and Plan Assessment: major depressive disorder, recurrent rule out with psychosis; rule out schizoaffective disorder; history of cannabis use disorder; history of opioid use disorder; history of amphetamine use disorder Plan: Plan: -Patient continues to meet criteria for inpatient psychiatric admission for symptom stabilization and safety. Patient has signed adult voluntary form and medication consent and was placed in patient's chart. One to one support and psychotherapy. -Medications: Increase Abilify 15 mg daily for mood stabilization. Continue Cymbalta 60 mg twice daily for depression and anxiety. Continue Melatonin 6 mg at bedtime to help with insomnia. Continue Remeron 45 mg at bedtime for depression/anxiety and to help was insomnia. Continue Seroquel 300 mg at bedtime for psychotic symptoms, mood stabilization, and attempt was insomnia. -NRT - -SW on board for discharge planning.
[2019-05-05] MEDS: QUEtiapine 100 MG TAB PO SCH (20:44)
[2019-05-05] MEDS: MIRTAZAPINE 45 MG TABLET PO SCH (20:44)
[2019-05-05] MEDS: MELATONIN 3 MG TABLET PO SCH (20:45)
[2019-05-05] MEDS: ATORVASTATIN 40 MG TAB PO SCH (20:45)
[2019-05-06] MEDS: MAG HYDROX/AL HYDROX/SIMETH 30 ML CUP PO PRN (02:58)
[2019-05-06] MEDS: amLODIPine 10 MG TAB PO SCH (08:35)
[2019-05-06] MEDS: ARIPiprazole 10 MG TAB PO SCH (08:35)
[2019-05-06] MEDS: NICOTINE 14MG/24HR PATCH TRANSDERM SCH (08:35)
[2019-05-06] MEDS: ASPIRIN 325 MG TAB PO SCH (08:35)
[2019-05-06] MEDS: HYDROCHLOROTHIAZIDE 25 MG TAB PO SCH (08:36)
[2019-05-06] MEDS: DULoxetine HCL 60 MG CAPSULE.DR PO SCH ×2 (08:36→20:42)
[2019-05-06] MEDS: LISINOPRIL 20 MG TAB PO SCH (08:36)
[2019-05-06] MEDS: LORazepam 1 MG TAB PO PRN (12:38)
[2019-05-06] MEDS: ACETAMINOPHEN TAB 325 MG TAB PO PRN (12:38)
--- NOTE | 2019-05-06 14:28 | P.PN ---
Subjective Progress Note Date: 05/06/19 Patient was seen and chart was reviewed. Case discussed with staff. The patient reports feeling better today. He reports improved sleep and fair appetite. The patient denies any crying spells or panic attacks at this time. The patient had fair eye contact and his speech was goal-directed and logical the patient denies any auditory or visual hallucinations and denies any active suicidal homicidal or paranoid ideations at this time. The patient has been cooperative and compliant with the care and denies any side effects on the medications at this time. Objective - Vital Signs Vital signs: Vital Signs Temp 98.1 F 05/06/19 06:36 Pulse 99 05/06/19 06:36 Resp 16 05/06/19 06:36 BP 131/75 05/06/19 06:36 Pulse Ox 98 05/01/19 04:15 - Exam Mental Status Exam: General Appearance: Patient appears to be stated age is alert, directable. poor hygiene and minimal grooming. Patient has good eye contact. Behavior: Patient is seated without any agitated behavior. Speech: Patient's speech is normal tone and low volume. soft tone. Mood/Affect: Depressed mood, affect is congruent Suicidality/Homicidality: He reports having SI with plans to cut his wrist. Patient denies having any homicidal ideation intent or plan. Perceptions: Patient denies any auditory or visual hallucinations. Though content/process: There is no evidence of any delusional thought content and thought process is linear and goal-directed. Memory and concentration: AOX3, grossly intact for the purposes of this session. Judgment and insight: Limited - Labs CBC & Chem 7: 04/26/19 06:57 04/26/19 06:57 Assessment and Plan Assessment: major depressive disorder, recurrent rule out with psychosis; rule out schizoaffective disorder; history of cannabis use disorder; history of opioid use disorder; history of amphetamine use disorder Plan: Plan: -Patient continues to meet criteria for inpatient psychiatric admission for symptom stabilization and safety. Patient has signed adult voluntary form and medication consent and was placed in patient's chart. One to one support and psychotherapy. -Medications: Continue Abilify 15 mg daily for mood stabilization. Continue Cymbalta 60 mg twice daily for depression and anxiety. Continue Melatonin 6 mg at bedtime to help with insomnia. Continue Remeron 45 mg at bedtime for depression/anxiety and to help was insomnia. Continue Seroquel 300 mg at bedtime for psychotic symptoms, mood stabilization, and attempt was insomnia. -NRT - -SW on board for discharge planning. Plan to discharge in the a.m. if stable.
[2019-05-06] MEDS: ATORVASTATIN 40 MG TAB PO SCH (20:42)
[2019-05-06] MEDS: MIRTAZAPINE 45 MG TABLET PO SCH (20:42)
[2019-05-06] MEDS: MELATONIN 3 MG TABLET PO SCH (20:42)
[2019-05-06] MEDS: QUEtiapine 100 MG TAB PO SCH (20:42)
[2019-05-07] MEDS: MAG HYDROX/AL HYDROX/SIMETH 30 ML CUP PO PRN (02:08)
[2019-05-07 02:12] VITALS: RESP 20; TEMP 97.9
[2019-05-07] MEDS: amLODIPine 10 MG TAB PO SCH (08:41)
[2019-05-07] MEDS: ASPIRIN 325 MG TAB PO SCH (08:41)
[2019-05-07] MEDS: NICOTINE 14MG/24HR PATCH TRANSDERM SCH (08:41)
[2019-05-07] MEDS: HYDROCHLOROTHIAZIDE 25 MG TAB PO SCH (08:42)
[2019-05-07] MEDS: DULoxetine HCL 60 MG CAPSULE.DR PO SCH (08:42)
[2019-05-07] MEDS: LISINOPRIL 20 MG TAB PO SCH (08:42)
[2019-05-07 08:45] VITALS: BP 135/86; PULSE 114
[2019-05-07] MEDS ORDERED: ARIPiprazole 15 MG TAB PO SCH (09:00)
--- NOTE | 2019-05-07 12:03 | P.DS ---
Providers Date of admission: 04/25/19 14:41 Attending physician: Floresita Casper MD Consults: 04/25/19 14:44 Consult Physician Routine Consulting Provider: Alfredo Paz Consult Reason/Comments: medical management Do you want consulting provider notified?: Yes Primary care physician: Stated None Hospital Course: IDENTIFYING DATA: 48-year-old male patient HPI: patient admitted to the inpatient psychiatric unit on a voluntary basis with recent depression and thoughts of suicide. Patient states that he tried to jump in front of a car yesterday in the car stopped and swerved. He says he came into the hospital on his own. He describes recent stressor of being homeless and says he can't go back to the snf due to marijuana and drug use. He relays that his mood is been depressed and he's had some ongoing thoughts of suicide. Says he was feeling better at the time of his discharge which was approximately 2 days prior to his readmission and he had a place to go to but when he got there the other people didn't want him there. He admits to some recent paranoid type thinking like someone is out to get him. He does state he has been consistent with his medications. He also admits to some recent mood swings and feeling agitated at times. PAST PSYCHIATRIC HISTORY: patient is had a recent admission him with discharge few days prior to the readmission he states he's had a total of 3 or 4 [address] admissions[address] sees [address]. Stauffer through [facility] and counselor Janel through [facility]. Says he has had diagnoses of bipolar disorder and schizophrenia. He denies any history of hearing voices. Most recent diagnosis per history has been major depressive disorder recurrent. He states he's had a 3 or 4 suicide attempts. A couple times he took pills, one time he is going to cut his wrist and then he tried to jump in front of a couple of cars. Most recently has been on Remeron Cymbalta and Abilify. PMH:hypertension ALLERGIES: ibuprofen, simvastatin MEDICATIONS: Tylenol when necessary, Maalox when necessary, Norvasc, Abilify, aspirin, Lipitor, Cymbalta, hydro-diarrheal, Zestril, Ativan when necessary, milk of magnesia when necessary, Remeron, Habitrol patch, Nitrostat when necessary CHEMICAL DEPENDENCY HISTORY: says he was using OxyContin off the street for the past couple of days. Also used marijuana couple times since he was discharged. He does have a history of some heroin and meth use but has been without those from last 1-1-1/2 months. Denies alcohol use. FAMILY PSYCHIATRIC HISTORY: none known at this time. FAMILY CHEMICAL DEPENDENCY HISTORY: none known at this time. SOCIAL HISTORY: he is currently and . He has been 19 years. He has 4 children. He is not currently working and is not on disability. He relates that he is currently homeless. MENTAL STATUS EXAM: he is alert and cooperative with the interview. Speech is fluent, not rapid or pressured. Thought processes organized. He describes his mood as "sad." He denies any current thoughts of harm to self or others and reports he feels safe here on the unit he denies any current hallucinations. He denies any current thoughts regarding others being out to get him.cognitively appears very grossly intact. I do not note any significant memory disturbance or disorientation. STRENGTHS/WEAKNESSES: strengthsseeking treatment; weaknessescoping skills, living situation stress (homeless) INTELLECTUAL FUNCTIONING: average IMPRESSIONS: major depressive disorder, recurrent rule out with psychosis; rule out schizoaffective disorder; history of cannabis use disorder; history of opioid use disorder; history of amphetamine use disorder PLAN: patient was readmitted to the inpatient psychiatric unit on a voluntary basis to help stabilize his depression and monitor regarding thoughts of suicide. SP 15 [address] in [address]. He participated in some group and activity therapies. Baseline laboratory workup was done the patient and m edical consultation was ordered. He was maintained on Cymbalta 90 milligrams daily and Remeron 30 milligrams at bedtime at this time. His Abilify was adjusted to 10 mg daily to help for augmentation regarding mood as well as some to help treat/prevent any psychosis-type symptoms. The patient was also started on Seroquel 200 mg by mouth daily at bedtime. The patient continued to report feeling depressed and anxious. He continued to report frequent crying spells. The patient's Seroquel was increased to 300 mg by mouth daily at bedtime. The patient tolerated the medications without any side effects. The patient started showing some improvement in his mood and functioning. He reported improved sleep and appetite. He was cooperative and compliant with the treatment. His Remeron was increased to 45 mg by mouth daily at bedtime. Abilify was also increased to 50 mg by mouth daily. The patient was tolerating the changes in medications without any side effects. He showed some slow improvement in mood and functioning. He reported improvement in crying spells. On the patient continued to report chronic suicidal ideations but denies any intentions or plans to harm himself. Discharge plans were initiated and the patient was discharged on 05/07/2019 with plans to follow-up at [facility]. Patient Condition at Discharge: Fair Plan - Discharge Summary Discharge Rx Participant: No New Discharge Prescriptions: New ARIPiprazole [Abilify] 15 mg PO DAILY #30 tab DULoxetine HCL [Cymbalta] 60 mg PO BID #60 capsule. Nicotine 14Mg/24Hr Patch [Habitrol] 1 patch TRANSDERM DAILY #14 patch Melatonin 6 mg PO HS #30 tablet Mirtazapine [Remeron] 45 mg PO HS #30 tablet QUEtiapine [SEROquel] 300 mg PO HS #30 tab Continue amLODIPine [Norvasc] 10 mg PO DAILY Lisinopril 20 mg PO DAILY Aspirin 325 mg PO DAILY tab Atorvastatin [Lipitor] 40 mg PO HS tab Nitroglycerin Sl Tabs [Nitrostat] 0.4 mg SUBLINGUAL Q5M PRN tab PRN Reason: Chest Pain Hydrochlorothiazide [Hydrodiuril] 25 mg PO DAILY #30 tab ARIPiprazole [Abilify] 5 mg PO DAILY #30 tab Discontinued DULoxetine HCL [Cymbalta] 90 mg PO DAILY #45 capsule. Mirtazapine [Remeron] 30 mg PO HS #30 tab Discharge Medication List amLODIPine [Norvasc] 10 mg PO DAILY 11/18/18 [History] Lisinopril 20 mg PO DAILY 04/08/19 [History] Aspirin 325 mg PO DAILY tab 04/23/19 [Rx] Atorvastatin [Lipitor] 40 mg PO HS tab 04/23/19 [Rx] Hydrochlorothiazide [Hydrodiuril] 25 mg PO DAILY #30 tab 04/23/19 [Rx] Nitroglycerin Sl Tabs [Nitrostat] 0.4 mg SUBLINGUAL Q5M PRN tab 04/23/19 [Rx] ARIPiprazole [Abilify] 5 mg PO DAILY #30 tab 05/06/19 [Rx] ARIPiprazole [Abilify] 15 mg PO DAILY #30 tab 05/06/19 [Rx] DULoxetine HCL [Cymbalta] 60 mg PO BID #60 capsule. 05/06/19 [Rx] Melatonin 6 mg PO HS #30 tablet 05/06/19 [Rx] Mirtazapine [Remeron] 45 mg PO HS #30 tablet 05/06/19 [Rx] Nicotine 14Mg/24Hr Patch [Habitrol] 1 patch TRANSDERM DAILY #14 patch 05/06/19 [Rx] QUEtiapine [SEROquel] 300 mg PO HS #30 tab 05/06/19 [Rx] Follow up Appointment(s)/Referral(s): [facility] [Outside] - 05/07/19 1:30 pm (Janel Bell May 07 at 1:30 Dr. Stauffer on May 12 at 5:00) None,Stated [Primary Care Provider] - 1-2 days Patient Instructions/Handouts: How to Stop Smoking (DC), Mood Disorders (DC) Activity/Diet/Wound Care/Special Instructions: Activity and diet as tolerated. Avoid the use of street drugs and alcohol. Take all medications as prescribed. When you are in need of refills on your medications please contact your medical provider and/or outpatient psychiatrist to have this done. Please go to scheduled outpatient appointment for aftercare treatment. If symptoms return or become worse, call the crisis line at and/or go to the nearest emergency room for evaluation.
--- NOTE | 2019-05-07 12:05 | P.PN ---
Subjective Progress Note Date: 05/07/19 Patient was seen and chart was reviewed. Case discussed with staff. The patient continues to report feeling depressed but is more redirectable. The patient reports fair sleep and appetite. He denies any crying spells or panic attacks. The patient denies any auditory or visual hallucinations and denied any active suicidal or homicidal ideations at this time. The patient contracted for safety. Objective - Vital Signs Vital signs: Vital Signs Temp 97.9 F 05/07/19 02:11 Pulse 114 H 05/07/19 08:44 Resp 20 05/07/19 08:44 BP 135/86 05/07/19 08:44 Pulse Ox 98 05/01/19 04:15 - Exam Mental Status Exam: General Appearance: Patient appears to be stated age is alert, directable. poor hygiene and minimal grooming. Patient has good eye contact. Behavior: Patient is seated without any agitated behavior. Speech: Patient's speech is normal tone and low volume. soft tone. Mood/Affect: Depressed mood, affect is congruent Suicidality/Homicidality: He reports having SI with plans to cut his wrist. Patient denies having any homicidal ideation intent or plan. Perceptions: Patient denies any auditory or visual hallucinations. Though content/process: There is no evidence of any delusional thought content and thought process is linear and goal-directed. Memory and concentration: AOX3, grossly intact for the purposes of this session. Judgment and insight: Limited - Labs CBC & Chem 7: 04/26/19 06:57 04/26/19 06:57 Assessment and Plan Assessment: major depressive disorder, recurrent rule out with psychosis; rule out schizoaffective disorder; history of cannabis use disorder; history of opioid use disorder; history of amphetamine use disorder Plan: Plan: -Discharge home today. One to one support and psychotherapy. -Medications: Continue Abilify 15 mg daily for mood stabilization. Continue Cymbalta 60 mg twice daily for depression and anxiety. Continue Melatonin 6 mg at bedtime to help with insomnia. Continue Remeron 45 mg at bedtime for depression/anxiety and to help was insomnia. Continue Seroquel 300 mg at bedtime for psychotic symptoms, mood stabilization, and attempt was insomnia. -NRT - -
[2019-05-07] MEDS: ACETAMINOPHEN TAB 325 MG TAB PO PRN (12:07)
== END 2019-05-07 14:25 | disposition home or self-care (01) | DRG 885 ==
LOC: EC 12:51 → 3MHU 14:41
PROVIDERS: ADMIT Psychiatry & Neurology Psychiatry; ATTEND Psychiatry & Neurology Psychiatry
DX: F33.9 Major depressive disorder, recurrent, unspecified (principal); R45.851 Suicidal ideations; F41.9 Anxiety disorder, unspecified; E78.5 Hyperlipidemia, unspecified; F12.10 Cannabis abuse, uncomplicated; F17.210 Nicotine dependence, cigarettes, uncomplicated; F15.10 Other stimulant abuse, uncomplicated; F11.10 Opioid abuse, uncomplicated; F20.9 Schizophrenia, unspecified; I10 Essential (primary) hypertension; I48.91 Unspecified atrial fibrillation; J44.9 Chronic obstructive pulmonary disease, unspecified; Z91.5 Personal history of self-harm; Z59.0 Homelessness; Z79.82 Long term (current) use of aspirin; Z79.899 Other long term (current) drug therapy; Z82.49 Family history of ischemic heart disease and other diseases of the circulatory system; Z87.442 Personal history of urinary calculi; G62.9 Polyneuropathy, unspecified; G89.29 Other chronic pain; M54.32 Sciatica, left side; M54.31 Sciatica, right side; Z56.0 Unemployment, unspecified; Z63.5 Disruption of family by separation and divorce; G43.909 Migraine, unspecified, not intractable, without status migrainosus; Z86.14 Personal history of Methicillin resistant Staphylococcus aureus infection; Z87.01 Personal history of pneumonia (recurrent)
CPT/HCPCS: 74176; 80053; 80061; 80306; 81001; 81003; 82075; 83036; 84443; 84484; 85025; 99285

== ENCOUNTER 2019-06-15 10:29 | Emergency (ER) | payer OTHER ==
[2019-06-15 10:51] VITALS: BP 162/87; PULSE 98; RESP 18; TEMP 98.2
--- NOTE | 2019-06-15 12:14 | ED ---
General Adult HPI - General Chief complaint: Extremity Injury, Lower Stated complaint: Toe pain Time Seen by Provider: 06/15/19 11:30 Source: patient, RN notes reviewed Mode of arrival: ambulatory Limitations: no limitations - History of Present Illness Initial comments: 49-year-old male with a computed past medical history presents to the emergency department for blister of the left big toe. Patient states this has been ongoing for about 2 days. States it is now difficult to wear shoes because the blister hurts. Patient denies any fevers or chills. Denies any spreading redness. Patient has not tried to pop this blister on his own.Patient has no other complaints at this time including shortness of breath, chest pain, abdominal pain, nausea or vomiting, headache, or visual changes. - Related Data Home Medications Medication Instructions Recorded Confirmed amLODIPine [Norvasc] 10 mg PO DAILY 11/18/18 04/25/19 Lisinopril 20 mg PO DAILY 04/08/19 04/25/19 Previous Rx's Medication Instructions Recorded Aspirin 325 mg PO DAILY tab 04/23/19 Atorvastatin [Lipitor] 40 mg PO HS tab 04/23/19 Hydrochlorothiazide [Hydrodiuril] 25 mg PO DAILY #30 tab 04/23/19 Nitroglycerin Sl Tabs [Nitrostat] 0.4 mg SUBLINGUAL Q5M PRN tab 04/23/19 ARIPiprazole [Abilify] 5 mg PO DAILY #30 tab 05/06/19 ARIPiprazole [Abilify] 15 mg PO DAILY #30 tab 05/06/19 DULoxetine HCL [Cymbalta] 60 mg PO BID #60 capsule. 05/06/19 Melatonin 6 mg PO HS #30 tablet 05/06/19 Mirtazapine [Remeron] 45 mg PO HS #30 tablet 05/06/19 Nicotine 14Mg/24Hr Patch [Habitrol] 1 patch TRANSDERM DAILY #14 patch 05/06/19 QUEtiapine [SEROquel] 300 mg PO HS #30 tab 05/06/19 Cephalexin [Keflex] 500 mg PO Q6HR 7 Days #28 cap 06/15/19 Allergies Allergy/AdvReac Type Severity Reaction Status Date / Time ibuprofen [From Motrin] AdvReac Nausea & Verified 06/15/19 10:51 Vomiting simvastatin [From Zocor] AdvReac Dizziness Verified 06/15/19 10:51 Review of Systems ROS Statement: Those systems with pertinent positive or pertinent negative responses have been documented in the HPI. ROS Other: All systems not noted in ROS Statement are negative. Past Medical History Past Medical History: Atrial Fibrillation, COPD, Hyperlipidemia, Hypertension, Pneumonia Additional Past Medical History / Comment(s): Other HX; Costochondritis, chronic pain, chronic low back pain with bilateral sciatica, neuropathy bilateral hands/feet, migraines, kidney stones, past partial small bowel obstruction. History of Any Multi-Drug Resistant Organisms: MRSA Date of last positivie culture/infection: 04/10/18 MDRO Source:: TOE Past Surgical History: Heart Catheterization, Orthopedic Surgery Additional Past Surgical History / Comment(s): 03/14/18 Cardiac cath-normal coronaries, L shoulder rotator cuff repair x2, cervical injection. Past Anesthesia/Blood Transfusion Reactions: No Reported Reaction Past Psychological History: Bipolar, Depression, Schizophrenia Smoking Status: Current every day smoker Past Alcohol Use History: None Reported Past Drug Use History: Marijuana, Prescription Drug Abuse - Past Family History Father Family Medical History: Myocardial Infarction ([place]) Additional Family Medical History / Comment(s): mi at age 35, still living Mother Family Medical History: Myocardial Infarction ([place]) Additional Family Medical History / Comment(s): Mother has had at least one [place]- pt unsure at what age. He has not had much contact with his mother since he was 17 yrs old. General Exam Limitations: no limitations General appearance: alert, in no apparent distress Head exam: Present: atraumatic, normocephalic, normal inspection Eye exam: Present: normal appearance, PERRL, EOMI. Absent: scleral icterus, conjunctival injection, periorbital swelling ENT exam: Present: normal exam, mucous membranes moist Neck exam: Present: normal inspection, full ROM. Absent: tenderness, meningismus, lymphadenopathy Respiratory exam: Present: normal lung sounds bilaterally. Absent: respiratory distress, wheezes, rales, rhonchi, stridor Cardiovascular Exam: Present: regular rate, normal rhythm, normal heart sounds. Absent: systolic murmur, diastolic murmur, rubs, gallop, clicks Extremities exam: Present: normal inspection, normal capillary refill (cap refill < 2 seconds, DP pulse 2+ in RLE), other (vesicle noted along the proximal nail fold, no spreading or streaking redness, no evidence of infection at this time. Patient noted to have onychomycosis). Absent: full ROM, tenderness Course Vital Signs 06/15/19 10:48 Temperature 98.2 F Pulse Rate 98 Respiratory 18 Rate Blood Pressure 162/87 O2 Sat by Pulse 97 Oximetry Medical Decision Making - Medical Decision Making I did recommend leaving blister intact however patient did very much like this opened so he can wear his shoes. I therefore incised the blister with an 18- gauge needle. Serous material expelled. There is no purulent material. No evidence of infection at this time. However patient was started on Keflex. I discussed monitoring for infection and following up with primary care as well as single stroke preformer.I discussed this case with attending Dr. Fountain who agrees with this assessment and treatment plan. Disposition Clinical Impression: Blister Disposition: HOME SELF-CARE Condition: Good Instructions (If sedation given, give patient instructions): Blister (ED) Additional Instructions: Please monitor for signs infection such as spreading or streaking redness, drainage, fever and return if these occur. Take antibiotic as directed. This was e-scribed to [facility] on . Follow-up with primary care and podiatry in 1-2 days for a recheck. Prescriptions: Cephalexin [Keflex] 500 mg PO Q6HR 7 Days #28 cap Is patient prescribed a controlled substance at d/c from ED?: No Referrals: Wallace Rosas DPM [STAFF PHYSICIAN] - 1-2 days Saranya Wells MD [REFERRING] - 1-2 days Time of Disposition: 12:13
== END 2019-06-15 12:44 | disposition home or self-care (01) ==
LOC: EC 10:29
DX: S90.422A Blister (nonthermal), left great toe, initial encounter (principal); B35.1 Tinea unguium; I10 Essential (primary) hypertension; I48.91 Unspecified atrial fibrillation; F17.200 Nicotine dependence, unspecified, uncomplicated; Z79.899 Other long term (current) drug therapy; Z88.6 Allergy status to analgesic agent; Z88.8 Allergy status to other drugs, medicaments and biological substances; X58.XXXA Exposure to other specified factors, initial encounter
CPT/HCPCS: 10160; 99283

== ENCOUNTER 2021-02-23 18:16 | Emergency (ER) | payer OTHER ==
[2021-02-23 18:44] VITALS: RESP 18; TEMP 97.8
[2021-02-23] MEDS ORDERED: KETOROLAC 15 MG/ML 1 ML VIAL IM STA (19:43)
[2021-02-23] MEDS ORDERED: CYCLOBENZAPRINE 10 MG TAB PO STA (19:43)
--- NOTE | 2021-02-23 20:18 | XR ---
EXAMINATION TYPE: XR chest 2V DATE OF EXAM: 02/23/2021 COMPARISON: Chest x-ray 04/08/2019, chest CT 03/17/2018 HISTORY: Difficulty breathing TECHNIQUE: Frontal and lateral views of the chest are obtained. FINDINGS: Interstitium is increased. The heart shows a similar appearance, borderline enlarged. No e vident pneumothorax or pleural effusion. There is increased AP diameter chest which can be seen with underlying COPD. Patchy basilar density noted posteriorly, possibly the retrocardiac location. IMPRESSION: Interstitial lung disease, cardiomegaly, correlate for possible interstitial edema, diff icult to exclude the posterior pneumonia versus atelectasis
--- NOTE | 2021-02-23 20:23 | ED ---
General Adult HPI - General Chief complaint: Back Pain/Injury Stated complaint: Back Pain.SOB Time Seen by Provider: 02/23/21 18:20 Source: patient, RN notes reviewed, old records reviewed Mode of arrival: EMS Limitations: physical limitation - History of Present Illness Initial comments: This is a 50-year-old male who presents emergency Department complaining of left upper back pain just below the scapula. Patient states she was pushing a truck the other day and he felt a pop in that area ever since then that area is been painful. Patient states taking a deep breath increases pain twisting also increases the pain. Patient denies any anterior chest pain. Patient denies any shortness of breath or difficulty breathing. Patient denies any fever chills or cough. Patient denies any abdominal pain. Patient denies any nausea vomiting diarrhea. - Related Data Home Medications Medication Instructions Recorded Confirmed amLODIPine [Norvasc] 10 mg PO DAILY 11/18/18 04/25/19 lisinopriL 20 mg PO DAILY 04/08/19 04/25/19 Previous Rx's Medication Instructions Recorded Aspirin 325 mg PO DAILY tab 04/23/19 Atorvastatin [Lipitor] 40 mg PO HS tab 04/23/19 Nitroglycerin Sl Tabs [Nitrostat] 0.4 mg SUBLINGUAL Q5M PRN tab 04/23/19 hydroCHLOROthiazide [Hydrodiuril] 25 mg PO DAILY #30 tab 04/23/19 ARIPiprazole [Abilify] 5 mg PO DAILY #30 tab 05/06/19 ARIPiprazole [Abilify] 15 mg PO DAILY #30 tab 05/06/19 DULoxetine HCL [Cymbalta] 60 mg PO BID #60 capsule. 05/06/19 Melatonin 6 mg PO HS #30 tablet 05/06/19 Mirtazapine [Remeron] 45 mg PO HS #30 tablet 05/06/19 Nicotine 14Mg/24Hr Patch [Habitrol] 1 patch TRANSDERM DAILY #14 patch 05/06/19 QUEtiapine [SEROquel] 300 mg PO HS #30 tab 05/06/19 Cephalexin [Keflex] 500 mg PO Q6HR 7 Days #28 cap 06/15/19 Cyclobenzaprine [Flexeril] 10 mg PO TID #20 tab 02/23/21 Ketorolac [Toradol] 10 mg PO Q6HR #15 tab 02/23/21 Allergies Allergy/AdvReac Type Severity Reaction Status Date / Time ibuprofen [From Motrin] AdvReac Nausea & Verified 02/23/21 18:44 Vomiting simvastatin [From Zocor] AdvReac Dizziness Verified 02/23/21 18:44 Review of Systems ROS Statement: Those systems with pertinent positive or pertinent negative responses have been documented in the HPI. ROS Other: All systems not noted in ROS Statement are negative. Past Medical History Past Medical History: Atrial Fibrillation, COPD, Hyperlipidemia, Hypertension, Pneumonia Additional Past Medical History / Comment(s): Other HX; Costochondritis, chronic pain, chronic low back pain with bilateral sciatica, neuropathy bilateral hands/feet, migraines, kidney stones, past partial small bowel obstruction. History of Any Multi-Drug Resistant Organisms: MRSA Date of last positivie culture/infection: 04/10/18 MDRO Source:: TOE Past Surgical History: Heart Catheterization, Orthopedic Surgery Additional Past Surgical History / Comment(s): 03/14/18 Cardiac cath-normal coronaries, L shoulder rotator cuff repair x2, cervical injection. Past Anesthesia/Blood Transfusion Reactions: No Reported Reaction Past Psychological History: Bipolar, Depression, Schizophrenia Past Alcohol Use History: None Reported Past Drug Use History: Marijuana, Prescription Drug Abuse - Past Family History Father Family Medical History: Myocardial Infarction (PA) Additional Family Medical History / Comment(s): mi at age 35, still living Mother Family Medical History: Myocardial Infarction (PA) Additional Family Medical History / Comment(s): Mother has had at least one PA- pt unsure at what age. He has not had much contact with his mother since he was 17 yrs old. General Exam - General Exam Comments Initial Comments: GENERAL: Patient is well-developed and well-nourished. Patient is nontoxic and well- hydrated and is in mild distress. ENT: Neck is soft and supple. No significant lymphadenopathy is noted. Oropharynx is clear. Moist mucous membranes. Neck has full range of motion without eliciting any pain. EYES: The sclera were anicteric and conjunctiva were pink and moist. Extraocular movements were intact and pupils were equal round and reactive to light. Eyelids were unremarkable. PULMONARY: Unlabored respirations. Good breath sounds bilaterally. No audible rales rhonchi or wheezing was noted. CARDIOVASCULAR: There is a regular rate and rhythm without any murmurs gallops or rubs. Patient is pain is reproducible when I palpate the posterior left rib cage. SKIN: Skin is clear with no lesions or rashes and otherwise unremarkable. NEUROLOGIC: Patient is alert and oriented x3. Cranial nerves II through XII are grossly intact. Motor and sensory are also intact. Normal speech, volume and content. Symmetrical smile. MUSCULOSKELETAL: Normal extremities with adequate strength and full range of motion. PSYCHIATRIC: Normal psychiatric evaluation. Limitations: physical limitation Course Vital Signs 02/23/21 18:39 Temperature 97.8 F Pulse Rate 107 H Respiratory 18 Rate Blood Pressure 149/100 O2 Sat by Pulse 98 Oximetry Medical Decision Making - Medical Decision Making Patient received Toradol and Flexeril was feeling a little bit better prior to discharge. Her chest x-ray showed no acute abnormality Disposition Clinical Impression: Mechanical back pain Disposition: HOME SELF-CARE Condition: Good Instructions (If sedation given, give patient instructions): Thoracic Back Strain (ED) Prescriptions: Cyclobenzaprine [Flexeril] 10 mg PO TID #20 tab Ketorolac [Toradol] 10 mg PO Q6HR #15 tab Is patient prescribed a controlled substance at d/c from ED?: No Referrals: None,Stated [Primary Care Provider] - 1-2 days Time of Disposition: 20:23
[2021-02-23 20:32] VITALS: BP 128/66; PULSE 115
== END 2021-02-23 21:00 | disposition home or self-care (01) ==
LOC: EC 18:16
DX: M54.6 Pain in thoracic spine (principal); J44.9 Chronic obstructive pulmonary disease, unspecified; I10 Essential (primary) hypertension; Z88.6 Allergy status to analgesic agent; Z79.899 Other long term (current) drug therapy
CPT/HCPCS: 71046; 99285; 96372; J1885

== ENCOUNTER 2021-02-25 15:52 | Inpatient (IN) | payer OTHER ==
[2021-02-25] MEDS ORDERED: ONDANSETRON 4 MG/2 ML VIAL IVP STA (16:43)
[2021-02-25] MEDS ORDERED: SODIUM CHLORIDE 0.9% 1,000 ML IV STA (16:43)
[2021-02-25] MEDS ORDERED: MORPHINE SULFATE 4 MG/ML SYRINGE IV STA (16:43)
[2021-02-25] MEDS ORDERED: FAMOTIDINE 20 MG/2 ML VIAL IV STA (16:48)
[2021-02-25] MEDS ORDERED: diphenhydrAMINE 50 MG/ML 1 ML VIAL IVP STA (16:48)
--- NOTE | 2021-02-25 17:36 | ED ---
General Adult HPI - General Chief complaint: Abdominal Pain Stated complaint: Abd Pain Time Seen by Provider: 02/25/21 16:44 Source: patient, RN notes reviewed, old records reviewed Mode of arrival: EMS Limitations: no limitations - History of Present Illness Initial comments: I evaluated the patient when he was placed in a room. Patient is a 50-year-old male with past medical history remarkable for atrial fibrillation not on anticoagulation, hypertension not on medications who presents emergency Department complaining of abdominal pain has been worsening for one day. He describes it as an achy sharp pain located in the right upper quadrant that radiates to the back. Denies any history of persistent alcohol abuse, drug use. Does have a history of abdominal surgery secondary to a bowel obstruction. Denies any history of gallbladder disease or surgery. He states he is still passing gas. He has not been tolerating by mouth intake due to nausea and the pain. Denies any history of renal stones. Denies any hematuria or dysuria. Denies any chest pain, shortness of breath. Denies any sick contacts. Denies any fevers or chills. He has no numbness or tingling. Denies any weakness. He has no other acute point at this time. Patient is concerned regarding his abdominal pain which is worsened over the last day. It woke him up from sleep at 1 AM. There are no known palliative factors. It is worsened when he moves a particular way. - Related Data Home Medications Medication Instructions Recorded Confirmed No Known Home Medications 02/25/21 02/25/21 Allergies Allergy/AdvReac Type Severity Reaction Status Date / Time ibuprofen [From Motrin] AdvReac Nausea & Verified 02/25/21 18:33 Vomiting simvastatin [From Zocor] AdvReac Dizziness Verified 02/25/21 18:33 Review of Systems ROS Statement: Those systems with pertinent positive or pertinent negative responses have been documented in the HPI. Review of Systems: CONST: Denies fever EYES: Denies blurry vision ENT: Denies nasal congestion C/V: Denies Chest pain RESP: Denies shortness of breath GI: Endorses abdominal pain : Denies dysuria SKIN: Denies rash. MSK: Denies joint pain. NEURO: Denies headache ROS Other: All systems not noted in ROS Statement are negative. Past Medical History Past Medical History: Atrial Fibrillation, COPD, Hyperlipidemia, Hypertension, Pneumonia Additional Past Medical History / Comment(s): Other HX; Costochondritis, chronic pain, chronic low back pain with bilateral sciatica, neuropathy bilateral hands/feet, migraines, kidney stones, past partial small bowel obstruction. History of Any Multi-Drug Resistant Organisms: MRSA Date of last positivie culture/infection: 04/10/18 MDRO Source:: TOE Past Surgical History: Heart Catheterization, Orthopedic Surgery Additional Past Surgical History / Comment(s): 03/14/18 Cardiac cath-normal coronaries, L shoulder rotator cuff repair x2, cervical injection. Past Anesthesia/Blood Transfusion Reactions: No Reported Reaction Past Psychological History: Bipolar, Depression, Schizophrenia Smoking Status: Current every day smoker Past Alcohol Use History: None Reported Past Drug Use History: Marijuana, Prescription Drug Abuse - Past Family History Father Family Medical History: Myocardial Infarction (PA) Additional Family Medical History / Comment(s): mi at age 35, still living Mother Family Medical History: Myocardial Infarction (PA) Additional Family Medical History / Comment(s): Mother has had at least one PA- pt unsure at what age. He has not had much contact with his mother since he was 17 yrs old. General Exam - General Exam Comments Initial Comments: General: Appears uncomfortable in moderate distress secondary to abdominal discomfort. HEAD: Normal with no signs of head trauma. EYES: PERRLA, EOMI, conjunctiva normal, no discharge. ENT: Hearing grossly intact, normal oropharynx. RESPIRATORY: Clear breath sounds bilaterally. No wheezes, rales, or rhonchi. C/V: Regular rate and rhythm. S1 and S2 auscultated, no edema, peripheral pulses 2+ and intact throughout ABD: Abdomen soft, nondistended. Patient is right upper quadrant and epigastric tenderness to palpation. His mild CVA tenderness to percussion on the right. No peritoneal signs. No guarding. No rebound tenderness. EXT: Normal range of motion, no obvious deformity SKIN: No rashes or lesions observed on exposed skin. NEURO: Alert and oriented 4. Limitations: no limitations Course Vital Signs 02/25/21 02/25/21 02/25/21 16:35 17:52 19:06 Temperature 98.3 F Pulse Rate 68 104 H 108 H Respiratory 18 18 18 Rate Blood Pressure 152/125 140/110 152/126 O2 Sat by Pulse 98 96 97 Oximetry Medical Decision Making - Medical Decision Making This on the patient's presentation and physical exam, I'm concerned for an acute intra-abdominal process for the patient. As he is extremely uncomfortable with right upper quadrant epigastric abdominal pain. We will obtain abdominal laboratory studies as well as a lactic acid. Screening EKG will be obtained. Patient was in agreement this plan. He will likely require CT abdomen and pelvis as well. He'll be sent likely treated with 1 L fluid bolus as well as Zofran, Benadryl, famotidine. Morphine will also be provided. Patient was in agreement this plan. EKG showed no signs of acute ischemia. Is relatively unremarkable except for sinus tachycardia. Patient's laboratory studies are also unremarkable. Lactate is within normal limits. Urine is negative for acute infection. Patient has slight hypoalbuminemia at 3.4. Remainder of his labs are unremarkable. Patient's CT abdomen and pelvis was ordered which revealed no acute intra- abdominal process. There are small bilateral pleural effusions and a small amount of fluid in the pelvis as well. There is also some hepatic steatosis. On reevaluation, patient is complaining now more of a little more right CVA tenderness to percussion. We will add on an ultrasound of the kidneys and bladder to rule out signs of nephrolithiasis. He will be redosed morphine at this time for pain. He was in agreement with the plan. Renal ultrasound re vealed no acute process. No signs of hydronephrosis. No evidence of obstructive uropathy. On reevaluation, patient remains tachycardic at this time and still in pain following morphine. His nausea is improved. I believe at this time it would be best to admit him to the hospital for intractable abdominal pain. I will additionally administered viscous lidocaine at this time. Patient was in ag reement this plan. I spoke with the admitting team under Dr. Conklin who accepted the patient. Milla roberson was therefore admitted in stable condition for intractable abdominal pain to observation. - Lab Data Result diagrams: 02/25/21 18:02 02/25/21 18:02 Lab Results 02/25/21 02/25/21 02/25/21 Range/Units 18:02 18:02 18:02 WBC 8.5 (3.8-10.6) k/uL RBC 4.95 (4.30-5.90) m/uL Hgb 15.9 (13.0-17.5) gm/dL Hct 47.5 (39.0-53.0) % MCV 95.9 (80.0-100.0) fL MCH 32.2 (25.0-35.0) pg MCHC 33.6 (31.0-37.0) g/dL RDW 14.5 (11.5-15.5) % Plt Count 241 (150-450) k/uL MPV 9.1 Neutrophils % 68 % Lymphocytes % 21 % Monocytes % 6 % Eosinophils % 3 % Basophils % 1 % Neutrophils # 5.8 (1.3-7.7) k/uL Lymphocytes # 1.8 (1.0-4.8) k/uL Monocytes # 0.5 (0-1.0) k/uL Eosinophils # 0.3 (0-0.7) k/uL Basophils # 0.1 (0-0.2) k/uL PT 11.2 (9.0-12.0) sec INR 1.1 (<1.2) APTT 21.1 L (22.0-30.0) sec Sodium 139 (137-145) mmol/L Potassium 4.5 (3.5-5.1) mmol/L Chloride 109 H (98-107) mmol/L Carbon Dioxide 22 (22-30) mmol/L Anion Gap 8 mmol/L BUN 19 (9-20) mg/dL Creatinine 0.83 (0.66-1.25) mg/dL Est GFR (CKD-EPI)AfAm >90 (>60 ml/min/1.73 sqM) Est GFR (CKD-EPI)NonAf >90 (>60 ml/min/1.73 sqM) Glucose 76 (74-99) mg/dL Plasma Lactic Acid George (0.7-2.0) mmol/L Calcium 8.9 (8.4-10.2) mg/dL Total Bilirubin 1.1 (0.2-1.3) mg/dL AST 53 (17-59) U/L ALT 46 (4-49) U/L Alkaline Phosphatase 82 (38-126) U/L Total Protein 6.1 L (6.3-8.2) g/dL Albumin 3.4 L (3.5-5.0) g/dL Amylase 60 (30-110) U/L Lipase 81 (23-300) U/L Urine Color Urine Appearance (Clear) Urine pH (5.0-8.0) Ur Specific [place] (1.001-1.035) Urine Protein (Negative) Urine Glucose (UA) (Negative) Urine Ketones (Negative) Urine Blood (Negative) Urine Nitrite (Negative) Urine Bilirubin (Negative) Urine Urobilinogen (<2.0) mg/dL Ur Leukocyte Esterase (Negative) 02/25/21 02/25/21 Range/Units 18:02 20:03 WBC (3.8-10.6) k/uL RBC (4.30-5.90) m/uL Hgb (13.0-17.5) gm/dL Hct (39.0-53.0) % MCV (80.0-100.0) fL MCH (25.0-35.0) pg MCHC (31.0-37.0) g/dL RDW (11.5-15.5) % Plt Count (150-450) k/uL MPV Neutrophils % % Lymphocytes % % Monocytes % % Eosinophils % % Basophils % % Neutrophils # (1.3-7.7) k/uL Lymphocytes # (1.0-4.8) k/uL Monocytes # (0-1.0) k/uL Eosinophils # (0-0.7) k/uL Basophils # (0-0.2) k/uL PT (9.0-12.0) sec INR (<1.2) APTT (22.0-30.0) sec Sodium (137-145) mmol/L Potassium (3.5-5.1) mmol/L Chloride (98-107) mmol/L Carbon Dioxide (22-30) mmol/L Anion Gap mmol/L BUN (9-20) mg/dL Creatinine (0.66-1.25) mg/dL Est GFR (CKD-EPI)AfAm (>60 ml/min/1.73 sqM) Est GFR (CKD-EPI)NonAf (>60 ml/min/1.73 sqM) Glucose (74-99) mg/dL Plasma Lactic Acid George 1.7 (0.7-2.0) mmol/L Calcium (8.4-10.2) mg/dL Total Bilirubin (0.2-1.3) mg/dL AST (17-59) U/L ALT (4-49) U/L Alkaline Phosphatase (38-126) U/L Total Protein (6.3-8.2) g/dL Albumin (3.5-5.0) g/dL Amylase (30-110) U/L Lipase (23-300) U/L Urine Color Light Yellow Urine Appearance Clear (Clear) Urine pH 7.0 (5.0-8.0) Ur Specific [place] 1.026 (1.001-1.035) Urine Protein Negative (Negative) Urine Glucose (UA) Negative (Negative) Urine Ketones Negative (Negative) Urine Blood Negative (Negative) Urine Nitrite Negative (Negative) Urine Bilirubin Negative (Negative) Urine Urobilinogen <2.0 (<2.0) mg/dL Ur Leukocyte Esterase Negative (Negative) - EKG Data -: EKG Interpreted by Me EKG Comments: 12-lead Electrocardiogram Interpretation Note EKG was reviewed and interpreted by myself. 12-lead ECG performed at 1744 is interpreted by me as revealing sinus tachycardia at a rate of 108 beats per minute. [place] is normal. GA interval is 166 ms, QRS duration is 100 ms, QTc is 498 ms.. There were no ST or T wave abnormalities to suggest myocardial ischemia or injury. R wave progression across the precordium was satisfactory. By my interpretation this EKG is non-diagnostic for acute ischemia. Disposition Clinical Impression: Sinus tachycardia, Intractable abdominal pain Disposition: ADMITTED IP TO THIS [facility] Condition: Stable Referrals: None,Stated [Primary Care Provider] - 1-2 days
[2021-02-25 18:20] LABS: Basophils # (A) 0.1 k/uL (0-0.2); Basophils % (A) 1 %; Eosinophils # (A) 0.3 k/uL (0-0.7); Eosinophils % (A) 3 %; HCT 47.5 % (39.0-53.0); HGB 15.9 gm/dL (13.0-17.5); Lymphocytes # (A) 1.8 k/uL (1.0-4.8); Lymphocytes % (A) 21 %; MCH 32.2 pg (25.0-35.0); MCHC 33.6 g/dL (31.0-37.0); MCV 95.9 fL (80.0-100.0); Mean Platelet Volume 9.1; Monocytes # (A) 0.5 k/uL (0-1.0); Monocytes % (A) 6 %; Neutrophils # (A) 5.8 k/uL (1.3-7.7); Neutrophils % (A) 68 %; Platelet Count 241 k/uL (150-450); RBC 4.95 m/uL (4.30-5.90); RDW 14.5 % (11.5-15.5); WBC 8.5 k/uL (3.8-10.6)
[2021-02-25 18:41] LABS: INR 1.1 (<1.2); Partial Thromboplastin Time 21.1 sec (22.0-30.0); Prothrombin Time 11.2 sec (9.0-12.0)
[2021-02-25 18:49] LABS: ALT 46 U/L (4-49); AST 53 U/L (17-59); African American GFR (CKD) >90 (>60 ml/min/1.73 sqM); Albumin 3.4 g/dL (3.5-5.0); Alkaline Phosphatase 82 U/L (38-126); Amylase 60 U/L (30-110); Anion Gap 8 mmol/L; Blood Urea Nitrogen 19 mg/dL (9-20); Calcium 8.9 mg/dL (8.4-10.2); Carbon Dioxide 22 mmol/L (22-30); Chloride 109 mmol/L (98-107); Glucose 76 mg/dL (74-99); Lipase 81 U/L (23-300); Non-African American GFR(CKD) >90 (>60 ml/min/1.73 sqM); Potassium 4.5 mmol/L (3.5-5.1); Sodium 139 mmol/L (137-145); Total Bilirubin 1.1 mg/dL (0.2-1.3); Total Protein 6.1 g/dL (6.3-8.2)
--- NOTE | 2021-02-25 19:49 | CT ---
EXAMINATION TYPE: CT abdomen pelvis w con DATE OF EXAM: 02/25/2021 COMPARISON: CT abdomen/pelvis 05/03/2019 HISTORY: Mid abdominal pain going through to back. Nausea. CT DLP: 1581.4 mGycm. Automated Exposure Control for Dose Reduction was Utilized. TECHNIQUE: Multiple contiguous axial CT images of the abdomen and pelvis were obtained from the lung bases through the pubic symphysis with IV Contrast, patient injected with 100 mL of Isovue 300. 2-D s agittal and coronal reformatted images were obtained. FINDINGS: Small bilateral pleural effusions with adjacent atelectasis. Diffuse decreased attenuation of the liver parenchyma likely fatty infiltration. Spleen, pancreas, an d bilateral adrenal glands have an unremarkable enhanced appearance. Gallbladder is present. No definite intrahepatic or extrahepatic biliary ductal dilatation. Kidneys are symmetric in size without hydronephrosis. 5 mm nonobstructing left renal calculus.. Urina ry bladder appears unremarkable. Prostate is not significantly enlarged. Small amount of free fluid within the pelvis. Visualized bowel is of normal caliber without evidence of obstruction. No significant mesenteric infl ammation. Appendix appears unremarkable. No free air. Abdominal aorta is of normal caliber. No intra-abdominal or retroperitoneal lymphadenopathy. Mild dif fuse subcutaneous edema and/or anasarca. Small fat-containing periumbilical hernia. Mild multilevel d egenerative changes of the visualized thoracolumbar spine. IMPRESSION: 1. No acute intraabdominal process. 2. Small bilateral pleural effusions with mild anasarca and trace fluid within the pelvis. Findings l ikely related to fluid overload. 3. Hepatic steatosis.
[2021-02-25] MEDS ORDERED: MORPHINE SULFATE 4 MG/ML SYRINGE IVP STA (19:59)
[2021-02-25 20:25] LABS: Appearance,Urine Clear (Clear); Bilirubin,Urine Negative (Negative); Blood,Urine Negative (Negative); Color,Urine Light Yellow; Glucose,Urine (UA) Negative (Negative); Ketones,Urine Negative (Negative); Leukocyte Esterase,Urine Negative (Negative); Nitrite,Urine Negative (Negative); Protein,Urine Negative (Negative); Specific Gravity,Urine 1.026 (1.001-1.035); Urobilinogen,Urine <2.0 mg/dL (<2.0)
--- NOTE | 2021-02-25 20:51 | US ---
EXAMINATION TYPE: US renals and bladder DATE OF EXAM: 02/25/2021 COMPARISON: CT 02/25/2021 CLINICAL HISTORY: evaluate for hydronephrosis on right.. EXAM MEASUREMENTS: Right Kidney: 11.6 x 4.8 x 5.6 cm Left Kidney: 12.6 x 5.9 x 6.4 cm Right Kidney: No hydronephrosis or masses seen Left Kidney: No hydronephrosis or masses seen Bladder: wnl Bilateral Jets seen: No Incidental note is made of right pleural effusion. There is no evidence for hydronephrosis at this point in time. No nephrolithiasis is seen. No jonny s are identified. The urinary bladder is anechoic. IMPRESSION: No evidence of obstructive uropathy.
[2021-02-25] MEDS ORDERED: ONDANSETRON 4 MG/2 ML VIAL IVP PRN (21:05)
[2021-02-25] MEDS ORDERED: NALOXONE 0.4 MG/ML 1 ML VIAL IV PRN (21:05)
[2021-02-25] MEDS ORDERED: LIDOCAINE VISCOUS 2% 15 ML CUP MUCOUS MEM ONE (21:09)
[2021-02-25 21:31] LABS: Amphetamine Screen,Urine Not Detected (NotDetected); Barbiturate Screen,Urine Not Detected (NotDetected); Benzodiazepines Screen,Urine Not Detected (NotDetected); Cocaine Screen,Urine Not Detected (NotDetected); Methadone Screen, Urine Not Detected (NotDetected); Opiate Screen,Urine Detected (NotDetected); Oxycodone Screen, Urine Not Detected (NotDetected); Phencyclidine Screen,Urine Not Detected (NotDetected); Tricyclic Antidepressant,Urine Not Detected (NotDetected); Urn Cannabinoid Scrn Detected (NotDetected)
[2021-02-25] MEDS: SODIUM CHLORIDE 0.9% 1,000 ML IV SCH (21:49)
--- NOTE | 2021-02-26 00:43 | P.HPIM ---
History of Present Illness H&P Date: 02/25/21 Chief Complaint: abd pain 50-year-old male with hypertension, history of A. fib, currently not on any medications Patient comes in due to 1 day history of sudden onset right-sided abdominal pain he described it as right upper quadrant abdominal pain radiating straight to the back associated with nausea but no vomiting pain is worse with certain movements. He denies any trauma denies any diarrhea denies any urinary changes denies any fevers or chills he denies any history of gallstones, patient does report history of constipation and bowel surgery in the past. Patient pain lasted all day started at 1 in the morning woke him up from sleep and he's been struggling with pain all day he described it as severe 10 out of 10 in severity only improved slightly with pain medications in the hospital. Patient bowel movement normally is once every other day he hadn't passed a bowel movement for the past 2 days again denies any GI bleeding denies any nausea vomiting. He is still passing gases. He denies any urinary symptoms. Denies any hematuria. Workup in the ED lipase is within normal limits, lactic acid within normal limits, blood work overall unremarkable Imaging showed no acute pathology with both abdominal CT and renal ultrasound patient admitted to the hospital for refractory abdominal pain for observation Review of Systems Pertinent positives as noted in HPI. All other systems were reviewed and are negative Past Medical History Past Medical History: Atrial Fibrillation, COPD, Hyperlipidemia, Hypertension, Pneumonia Additional Past Medical History / Comment(s): Other HX; Costochondritis, chronic pain, chronic low back pain with bilateral sciatica, neuropathy bilateral hands/feet, migraines, kidney stones, past partial small bowel obstruction. HTN the last 10 yrs Stopped taking meds 5 yrs ago. COPD due to tobacco use. MArijuna use 3 -4 times a week - Smoke it History of Any Multi-Drug Resistant Organisms: None Reported, MRSA Date of last positivie culture/infection: 04/10/18 MDRO Source:: TOE Past Surgical History: Heart Catheterization, Orthopedic Surgery Additional Past Surgical History / Comment(s): 03/14/18 Cardiac cath-normal coronaries, L shoulder rotator cuff repair x2, cervical injection. Past Anesthesia/Blood Transfusion Reactions: No Reported Reaction Past Psychological History: Anxiety, Bipolar, Depression, Schizophrenia Additional Psychological History / Comment(s): Pt was on Mental Health 2 years ago at [facility] for suicidal ideation - Not seeing anyone currently Smoking Status: Current every day smoker Past Alcohol Use History: None Reported Additional Past Alcohol Use History / Comment(s): Started smoking at age 15- smoked 1 ppd but has cut down to one pack a day Past Drug Use History: Marijuana, Prescription Drug Abuse Additional Drug Use History / Comment(s): Pt smokes marijuana on occasion. - Past Family History Father Family Medical History: Myocardial Infarction ([place]) Additional Family Medical History / Comment(s): mi at age 35, still living Mother Family Medical History: Myocardial Infarction ([place]) Additional Family Medical History / Comment(s): Mother has had at least one DC- pt unsure at what age. He has not had much contact with his mother since he was 17 yrs old. Medications and Allergies Home Medications Medication Instructions Recorded Confirmed Type No Known Home Medications 02/25/21 02/25/21 History Allergies Allergy/AdvReac Type Severity Reaction Status Date / Time ibuprofen [From Motrin] AdvReac Nausea & Verified 02/25/21 18:33 Vomiting simvastatin [From Zocor] AdvReac Dizziness Verified 02/25/21 18:33 Physical Exam Vitals: Vital Signs Temp Pulse Pulse Pulse Resp BP BP 02/25/21 23:45 108 H 20 154/104 02/25/21 22:30 108 H 24 02/25/21 22:25 97.6 F 108 H 24 156/113 02/25/21 21:45 101 H 22 158/111 02/25/21 19:06 108 H 18 152/126 02/25/21 17:52 104 H 18 140/110 02/25/21 16:35 98.3 F 68 18 152/125 Pulse Ox 02/25/21 23:45 99 02/25/21 22:30 02/25/21 22:25 100 02/25/21 21:45 96 02/25/21 19:06 97 02/25/21 17:52 96 02/25/21 16:35 98 Intake and Output 02/25/21 02/25/21 02/26/21 14:59 22:59 06:59 Intake Total 630 Balance 630 Intake: Intake, IV Titration 150 Amount Sodium Chloride 0.9% 1, 150 000 ml @ 75 mls/hr IV . [id number] [facility] Rx#:[id number] Oral 480 Other: Voiding Method Toilet Urinal Weight 108.862 kg Constitutional: No acute distress, conversant, pleasant Eyes: Anicteric sclerae, moist conjunctiva, Pupils equal round reactive to light ENMT: NC/AT Oropharynx clear, no erythema, or exudates Neck: Supple, FROM, no masses, or JVD No carotid bruits No thyromegaly Lungs: Clear to auscultation Clear to percussion Normal respiratory effort, no accessory muscle use Cardiovascular: Heart regular in rate and rhythm, No murmurs, gallops, or rubs No peripheral edema Abdominal: Soft Tenderness to palpation of the epigastric region, no guarding, rebound or rigidity Abdomen moving with respiration Normoactive bowel sounds No hepatomegaly, No splenomegaly No palpable mass No abdominal wall hernia noted Skin: Normal temperature, tone, texture, turgor No induration No subcutaneous nodules No rash, lesions No ulcers Extremities: No digital cyanosis No clubbing Pedal pulses intact and symmetrical Radial pulses intact and symmetrical No calf tenderness Psychiatric: Alert and oriented to person, place and time Appropriate affect fair judgement Neuro Muscles Strength 5/5 in all 4 extremities Sensation to light touch grossly present throughout Cranial nerves II-XII grossly intact No focal sensory deficits Lymphatics: no palpable cervical or supraclavicular , or inguinal lymph nodes Results CBC & Chem 7: 02/25/21 18:02 02/25/21 18:02 Labs: Abnormal Lab Results - Last 24 Hours (Table) 02/25/21 02/25/21 02/25/21 Range/Units 18:02 18:02 21:08 APTT 21.1 L (22.0-30.0) sec Chloride 109 H (98-107) mmol/L Total Protein 6.1 L (6.3-8.2) g/dL Albumin 3.4 L (3.5-5.0) g/dL Urine Opiates Screen Detected H (NotDetected) U Marijuana (THC) Screen Detected H (NotDetected) Thrombosis Risk Factor Assmnt - Choose All That Apply Each Factor Represents 1 point: Age 41-60 years Other Risk Factors: No Other congenital or acquired thrombophilia - If yes, enter type in comment: No Thrombosis Risk Factor Assessment Total Risk Factor Score: 1 Thrombosis Risk Factor Assessment Level: Low Risk Assessment and Plan Assessment: Refractory abdominal pain unknown underlying cause possible constipation, gastritis CT imaging of the abdomen and pelvis no acute pathology Renal ultrasound no acute pathology Blood work overall unremarkable Refractory pain despite opiates IV fluid hydration Pain control Observation overnight Bowel regimen PPI twice a day Lipase unremarkable History of hypertension, paroxysmal A. fib not currently on medications COPD currently compensated Tobacco smoking Patient counseled to quit smoking, nicotine replacement therapy offered DuoNeb's when necessary Patient is full code Anticipated length of stay less than 2 midnights Anticipated discharge home DVT PPX mechanical
[2021-02-26] MEDS ORDERED: polyethylene glycoL 3350 17 GM POWD.PACK PO PRN (00:45)
[2021-02-26] MEDS: MORPHINE SULFATE 4 MG/ML SYRINGE IV PRN ×5 (01:00→22:11)
[2021-02-26] MEDS: PANTOPRAZOLE 40 MG TABLET PO SCH ×2 (01:10→09:10)
[2021-02-26] MEDS: SODIUM CHLORIDE 0.9% 1,000 ML IV SCH (11:46)
[2021-02-26] MEDS ORDERED: hydrALAZINE HCL 25 MG TAB PO PRN (12:18)
[2021-02-26] MEDS ORDERED: FUROSEMIDE 10 MG/ML 2 ML VIAL IV STA (12:22)
[2021-02-26 13:36] LABS: African American GFR (CKD) >90 (>60 ml/min/1.73 sqM); Blood Urea Nitrogen 19 mg/dL (9-20); Non-African American GFR(CKD) >90 (>60 ml/min/1.73 sqM)
--- NOTE | 2021-02-26 15:07 | CT ---
EXAMINATION TYPE: CT angio chest DATE OF EXAM: 02/26/2021 COMPARISON: 03/17/2018 HISTORY: Epigastric pain. CT DLP: 1681.7 mGycm Automated exposure control for dose reduction was used. CONTRAST: Performed without and with IV Contrast, patient injected with 100 mL of Isovue 370. There are 3-D post processed images. There are bilateral pleural effusions. Heart is enlarged. There is no pericardial effusion. There is infiltrate or atelectasis at the lung bases. There are no hilar masses. There is normal contrast opa cification of the pulmonary arteries. There are no filling defects. There are a few paratracheal lymp h nodes that measure up to 1.5 cm. Thoracic spine is intact. There is no compression fracture. Sternum is intact. Upper abdominal soft t issues are intact. IMPRESSION: No evidence of pulmonary embolism. There are a few enlarged mediastinal lymph nodes. Bilateral modera te pleural effusions with basilar infiltrate and atelectasis. Cardiomegaly. Lung disease significantl y increased compared to old exam. Cardiomegaly increased.
--- NOTE | 2021-02-26 16:19 | P.PN ---
Subjective Progress Note Date: 02/26/21 50 years old male patient who has past medical history significant for hypertension and psychiatric diagnoses of bipolar disorder and schizophrenia. Previously has been seen in the hospital for depression and suicidal ideation, also documented in his past medical history is chronic chest pain. At that time his chest pain was noted to be of chronic nature and has been going on for last many years. Patient also has history of atrial fibrillation per electronic medical records but currently he is not on any regular home medications. Patient presented with progressively worsening epigastric/right upper quadrant pain, apparently this has been going on for the last 4 days and very unusual for him as he had no such pain before in the past. He is denying hematemesis melena diarrhea constipation any recent fevers cough or any other symptom. He does notice progressively worsening shortness of breath and lower extremity swelling with his symptoms, CT abdomen and pelvis negative for any acute findings, CTA chest was done which showed moderate bilateral pleural effusion. Patient was admitted for possible gastritis with epigastric tenderness or hospital medicine service By the time I evaluated the patient on 02/26/2021, patient was complaining of progressively worsening shortness of breath epigastric pain and discomfort and tenderness to deep palpation in bilateral lower and the swelling which is progressively getting worse, CTA chest was ordered which showed bilateral pleural effusion. Objective - Vital Signs Vital signs: Vital Signs Temp 97.5 F L 02/26/21 15:00 Pulse 104 H 02/26/21 15:00 Resp 19 02/26/21 15:00 BP 154/116 02/26/21 15:00 Pulse Ox 97 02/26/21 15:00 Intake & Output 02/25/21 02/26/21 02/26/21 18:59 06:59 18:59 Intake Total 1480 Output Total 500 Balance 980 Weight 108.862 kg 108.862 kg Intake: Intake, IV Titration 600 Amount Sodium Chloride 0.9% 1, 600 000 ml @ 75 mls/hr IV . [id number] [facility] Rx#:[id number] Oral 880 Output: Urine 500 Other: Voiding Method Toilet Toilet Urinal Urinal General: non toxic, no acute distress, alert oriented to time place and person Head: atraumatic, normocephalic, symmetric Eyes: no lid lesion], anicteric sclera Mouth: no lip lesion, mucus membranes moist Cardiovascular: S1S2 reg rate and rhythm, no murmur, no gallop Lungs: Diminished breath sounds bilaterally Abdominal: Epigastric tenderness, bowel sounds positive in all 4 quadrants Ext: Bilateral lower extremity edema +2 bilaterally, dispose positive lower ext remity edema Neuro: Alert oriented to time place and person, exam grossly nonfocal Psych: Mood and affect appropriate, patient not so certain Skin exam: No rashes no jaundice.. - Labs CBC & Chem 7: 02/25/21 18:02 02/26/21 13:07 Labs: Abnormal Lab Results - Last 24 Hours (Table) 02/25/21 02/25/21 02/25/21 Range/Units 18:02 18:02 21:08 APTT 21.1 L (22.0-30.0) sec Chloride 109 H (98-107) mmol/L Total Protein 6.1 L (6.3-8.2) g/dL Albumin 3.4 L (3.5-5.0) g/dL Urine Opiates Screen Detected H (NotDetected) U Marijuana (THC) Screen Detected H (NotDetected) Assessment and Plan Assessment: Epigastric tenderness Exact etiology unclear but suspect peptic ulcer disease versus congestive heart failure or underlying unstable angina, chest pain due to pleural effusion, history of chronic chest pain due to psychiatric issues Patient made nothing by mouth, IV Protonix and Carafate and GI cocktail, surgery consulted for possible evaluation for EGD Careful diuresis echocardiogram, checking BNP troponin EKG and consulted cardiology for evaluation Pulmonary medicine consulted to evaluate for pleural effusion, patient will need thoracocentesis will defer decision-making to pulmonary medicine and their e valuation first Pain management and anxiety control supportive treatment Questionable underlying congestive heart failure, bilateral lower extension the swelling, bilateral pleural effusion Check BNP echocardiogram. Discontinue IV fluid careful diuresis, cardiology consulted Pulmonary medicine consulted, patient will likely need thoracocentesis and pleural fluid analysis Hypertension Patient blood pressures is on the higher side, he is not on any antihypertensive medication at home although he has history of hypertension in the past Patient will be started on low-dose metoprolol Careful diuresis as mentioned above Adding hydralazine as needed History of psychiatric disorder, bipolar and schizophrenia We'll consult psychiatry for evaluation of his psychiatric issues and if he needs any medications to be restarted, currently not on any home medication for psychiatric issues. DVT prophylaxis: SCDs CODE STATUS: Full code Discharge plan/next site of care: Pending workup hospital course, likely back to home
[2021-02-26] MEDS: SUCRALFATE 1 GM TAB PO SCH ×2 (16:27→22:11)
[2021-02-26] MEDS: LIDOCAINE VISCOUS 2% 15 ML CUP MUCOUS MEM SCH ×2 (16:28→22:15)
[2021-02-26] MEDS: LORazepam 2 MG/ML INJ IV PRN ×2 (16:28→21:13)
[2021-02-26 16:47] LABS: Basophils # (A) 0.1 k/uL (0-0.2); Basophils % (A) 1 %; Eosinophils # (A) 0.2 k/uL (0-0.7); Eosinophils % (A) 3 %; HCT 51.5 % (39.0-53.0); HGB 15.7 gm/dL (13.0-17.5); Hypochromasia Slight; Lymphocytes % (A) 26 %; MCH 30.6 pg (25.0-35.0); MCHC 30.5 g/dL (31.0-37.0); MCV 100.4 fL (80.0-100.0); Macrocytosis Slight; Mean Platelet Volume 8.8; Monocytes # (A) 0.4 k/uL (0-1.0); Monocytes % (A) 5 %; Neutrophils % (A) 63 %; Platelet Count 211 k/uL (150-450); RBC 5.12 m/uL (4.30-5.90); RDW 13.7 % (11.5-15.5); WBC 7.9 k/uL (3.8-10.6)
[2021-02-26] MEDS: MAG HYDROX/AL HYDROX/SIMETH 30 ML CUP PO SCH ×2 (18:11→21:14)
[2021-02-26] MEDS: PANTOPRAZOLE 40 MG/10 ML VIAL IVP SCH (21:14)
[2021-02-27] MEDS: MORPHINE SULFATE 4 MG/ML SYRINGE IV PRN ×5 (02:18→21:01)
[2021-02-27] MEDS: SUCRALFATE 1 GM TAB PO SCH ×3 (07:55→16:24)
[2021-02-27] MEDS: LIDOCAINE VISCOUS 2% 15 ML CUP MUCOUS MEM SCH ×2 (07:55→19:58)
[2021-02-27] MEDS: PANTOPRAZOLE 40 MG/10 ML VIAL IVP SCH ×2 (07:55→19:59)
[2021-02-27] MEDS: MAG HYDROX/AL HYDROX/SIMETH 30 ML CUP PO SCH ×4 (08:05→19:56)
[2021-02-27] MEDS: lisinopriL 10 MG TAB PO SCH (08:09)
--- NOTE | 2021-02-27 09:52 | P.CRDCN ---
History of Present Illness Consult date: 02/27/21 History of present illness: HISTORY OF PRESENT ILLNESS: This is a 50-year-old male with a past medical history significant for hypertension, nicotine dependence, marijuana use, and atrial fibrillation per the patient not on anticoagulation. Patient follows in the office with Dr. Owens but has not been seen in the office since 2019. We have been asked to see the patient in consultation for chest pain. Patient examined at the bedside. Patient presented to the hospital with a chief complaint of abdominal pain. Patient has been having right upper quadrant pain for the past 3 days. He also reports nausea without vomiting. He denies having a fever. The patient currently denies chest pain or pressure. He states he did not have chest pain at home. The patient is currently rating his abdominal pain 10/10. He is scheduled for EGD today with Dr. Mina. EKG reveals sinus tachycardia with no signs of acute ischemia CT negative for pulmonary embolism. Laboratory data: WBC 7.9. Hemoglobin 15.7. Platelet count 211. Troponin negative 2. Sodium 139. Potassium 4.5. BUN 19. Creatinine 0.83. Lactic acid 1.7. Current home cardiac medications include none Most recent echocardiogram obtained in 2019 revealed ejection fraction 50-55%, moderate tricuspid regurgitation, moderate pulmonary hypertension Cardiac catheterization history: 2018 revealing normal coronary arteries REVIEW OF SYSTEMS: At the time of my exam: CONSTITUTIONAL: Denies fever or chills. HEENT: Denies blurred vision, vision changes, or eye pain. Denies hemoptysis CARDIOVASCULAR: Denies chest pain. Denies orthopnea. Denies PND. Denies palpitations RESPIRATORY: Denies shortness of breath. GASTROINTESTINAL: + abdominal pain. Denies nausea or vomiting. HEMATOLOGIC: Denies bleeding disorders. GENITOURINARY: Denies any blood in urine. SKIN: Denies pruitis. Denies rash. PHYSICAL EXAM: VITAL SIGNS: Reviewed. GENERAL: Well-developed in no acute distress. HEENT: Head is normocephalic. Pupils are equal, round. Sclerae anicteric. Mucous membranes of the mouth are moist. Neck supple. No JVD or thyromegaly LUNGS: Respirations even and unlabored. Lungs essentially clear to auscultation bilaterally. HEART: Regular rate and rhythm. S1 and S2 heard. ABDOMEN: Soft. Nondistended. Right upper quadrant and epigastric tenderness. EXTREMITIES: Normal range of motion. No clubbing or cyanosis. Peripheral pulses intact. No lower extremity edema NEUROLOGIC: Awake and alert. Oriented x 3. ASSESSMENT: Abdominal pain Chest pain, ruled out, troponin negative x 2 Hypertension Nicotine dependence Marijuana use History of atrial fibrillation per patient not on anticoagulation PLAN: An acute coronary event has been ruled out Begin lisinopril 10 mg daily for optimal blood pressure control Smoking cessation recommended Absence from marijuana recommended Obtain 2-D echo to assess cardiac structure and function Patient to undergo EGD today with Dr. Mina Further recommendations pending patient's course Nurse practitioner note has been reviewed by physician. Signing provider agrees with the documented findings, assessment, and plan of care. Past Medical History Past Medical History: Atrial Fibrillation, COPD, Hyperlipidemia, Hypertension, Pneumonia Additional Past Medical History / Comment(s): Other HX; Costochondritis, chronic pain, chronic low back pain with bilateral sciatica, neuropathy bilateral hands/feet, migraines, kidney stones, past partial small bowel obstruction. HTN the last 10 yrs Stopped taking meds 5 yrs ago. COPD due to tobacco use. MArijuna use 3 -4 times a week - Smoke it History of Any Multi-Drug Resistant Organisms: None Reported, MRSA Date of last positivie culture/infection: 04/10/18 MDRO Source:: TOE Past Surgical History: Heart Catheterization, Orthopedic Surgery Additional Past Surgical History / Comment(s): 03/14/18 Cardiac cath-normal coronaries, L shoulder rotator cuff repair x2, cervical injection. Past Anesthesia/Blood Transfusion Reactions: No Reported Reaction Past Psychological History: Anxiety, Bipolar, Depression, Schizophrenia Additional Psychological History / Comment(s): Pt was on Mental Health 2 years ago at [facility] for suicidal ideation - Not seeing anyone currently Smoking Status: Current every day smoker Past Alcohol Use History: None Reported Additional Past Alcohol Use History / Comment(s): Started smoking at age 15- smo ked 1 ppd but has cut down to one pack a day Past Drug Use History: Marijuana, Prescription Drug Abuse Additional Drug Use History / Comment(s): Pt smokes marijuana on occasion. - Past Family History Father Family Medical History: Myocardial Infarction ([place]) Additional Family Medical History / Comment(s): mi at age 35, still living Mother Family Medical History: Myocardial Infarction ([place]) Additional Family Medical History / Comment(s): Mother has had at least one [place]- pt unsure at what age. He has not had much contact with his mother since he was 17 yrs old. Medications and Allergies Home Medications Medication Instructions Recorded Confirmed Type No Known Home Medications 02/25/21 02/25/21 History Allergies Allergy/AdvReac Type Severity Reaction Status Date / Time ibuprofen [From Motrin] AdvReac Nausea & Verified 02/25/21 18:33 Vomiting simvastatin [From Zocor] AdvReac Dizziness Verified 02/25/21 18:33 Physical Exam Vitals: Vital Signs Temp Pulse Pulse Resp BP Pulse Ox 02/27/21 07:00 97.7 F 100 18 156/126 98 02/27/21 02:09 155/130 02/27/21 02:00 100 102 H 02/27/21 00:59 98.1 F 100 20 163/132 95 02/26/21 20:00 101 H 20 02/26/21 19:20 96.2 F L 101 H 20 150/99 95 02/26/21 15:00 97.5 F L 104 H 19 154/116 97 02/26/21 14:00 104 H 19 Intake and Output 02/26/21 02/27/21 02/27/21 22:59 06:59 14:59 Other: Voiding Method Toilet Urinal # Voids 2 3 Results 02/26/21 16:20 02/26/21 13:07 Cardiac Enzymes 02/26/21 02/27/21 Range/Units 16:20 08:06 Troponin I 0.012 <0.012 (0.000-0.034) ng/mL CBC 02/26/21 Range/Units 16:20 WBC 7.9 (3.8-10.6) k/uL RBC 5.12 (4.30-5.90) m/uL Hgb 15.7 (13.0-17.5) gm/dL Hct 51.5 (39.0-53.0) % Plt Count 211 (150-450) k/uL Comprehensive Metabolic Panel 02/26/21 Range/Units 13:07 BUN 19 (9-20) mg/dL Creatinine 0.89 (0.66-1.25) mg/dL Current Medications Generic Name Dose Route Start Last Admin Trade Name Freq PRN Reason Stop Dose Admin Al Hydroxide/Mg Hydroxide 20 ml 02/26/21 18:00 02/27/21 08:05 Mag Hydrox/Al Hydrox/Simeth 30 Ml Cup PO 20 ml QID GILES Administration Lidocaine HCl 5 ml 02/26/21 16:00 02/27/21 07:55 Lidocaine Viscous 2% 15 Ml Cup MUCOUS MEM 03/04/21 16:01 5 ml BID GILES Administration Lisinopril 10 mg 02/27/21 09:00 02/27/21 08:09 Lisinopril 10 Mg Tab PO 10 mg DAILY GILES Administration Lorazepam 1 mg 02/26/21 15:50 02/26/21 21:13 Lorazepam 2 Mg/Ml Inj IV 1 mg Q4HR PRN Administration Anxiety Morphine Sulfate 4 mg 02/25/21 21:05 02/27/21 07:56 Morphine Sulfate 4 Mg/Ml Syringe IV 4 mg Q4HR PRN Administration Severe Pain Naloxone HCl 0.2 mg 02/25/21 21:05 Naloxone 0.4 Mg/Ml 1 Ml Vial IV Q2M PRN Opioid Reversal Ondansetron HCl 4 mg 02/25/21 21:05 02/26/21 07:36 Ondansetron 4 Mg/2 Ml Vial IVP 4 mg Q8HR PRN Administration Nausea And Vomiting Pantoprazole Sodium 40 mg 02/26/21 21:00 02/27/21 07:55 Pantoprazole 40 Mg/10 Ml Vial IVP 40 mg BID GILES Administration Polyethylene Glycol 17 gm 02/26/21 00:45 Polyethylene Glycol 3350 17 Gm Powd.Pack PO DAILY PRN Constipation Sucralfate 1 gm 02/26/21 16:00 02/27/21 07:55 Sucralfate 1 Gm Tab PO 1 gm AC-TID GILES Administration Intake and Output 02/26/21 02/27/21 02/27/21 22:59 06:59 14:59 Other: Voiding Method Toilet Urinal # Voids 2 3 02/26/21 16:20 02/26/21 13:07
[2021-02-27] MEDS: METOPROLOL TARTRATE 25 MG TAB PO SCH ×2 (10:51→20:00)
--- NOTE | 2021-02-27 11:00 | ECHOF ---
Referral Reason:chf, cad, acs MEASUREMENTS -------- HEIGHT: 175.3 cm WEIGHT: 108.9 kg BP: 155/130 RVIDd: 5.9 cm (< 3.3) IVSd: 1.8 cm (0.6 - 1.1) LVIDd: 5.0 cm (3.9 - 5.3) LVPWd: 1.5 cm (0.6 - 1.1) IVSs: 1.8 cm LVIDs: 4.5 cm LVPWs: 1.7 cm LAESV Index (A-L): 42.49 ml/m Ao Diam: 3.4 cm (2.0 - 3.7) AV Cusp: 2.4 cm (1.5 - 2.6) LA Diam: 4.5 cm (2.7 - 3.8) MV EXCURSION: 12.667 mm (> 18.000) MV EF SLOPE: 62 mm/s (70 - 150) EPSS: 1.8 cm RAP: 20.00 mmHg RVSP: 77.83 mmHg FINDINGS -------- This was a technically adequate study. The left ventricular size is normal. There is moderate concentric left ventricular hypertrophy. T here is severe global hypokinesis of LV . Overall left ventricular systolic function is severely im paired with, an EF between 20 - 25 %. Mitral Doppler inflow pattern suggests diastolic filling abno rmality {E/E'}. The right ventricle is severely enlarged. LA is severely dilated >40 ml/m2 The right atrium is moderately enlarged. Interatrial and interventricular septum intact. The aortic valve is trileaflet and appears structurally normal. There is no evidence of aortic regu rgitation. There is no evidence of aortic stenosis. Severe mitral regurgitation is present. Severe tricuspid regurgitation present. There is severe pulmonary hypertension. The right ventric ular systolic pressure, as measured by Doppler, is 77.83mmHg. There is no pulmonic regurgitation present. The aortic root size is normal. The inferior vena cava is dilated with poor inspiratory collapse which is consistent with estimated r ight atrial pressure of 20 mmHg. There is no pericardial effusion. CONCLUSIONS -------- 1. The left ventricular size is normal. 2. There is moderate concentric left ventricular hypertrophy. 3. There is severe global hypokinesis of LV . 4. Overall left ventricular systolic function is severely impaired with, an EF between 20 - 25 %. 5. Mitral Doppler inflow pattern suggest diastolic filling abnormality {E/E'}. 6. The right ventricle is severely enlarged. 7. LA is severely dilated >40 ml/m2 8. The right atrium is moderately enlarged. 9. Severe mitral regurgitation is present. 10. Severe tricuspid regurgitation present. 11. There is severe pulmonary hypertension. 12. The right ventricular systolic pressure, as measured by Doppler, is 77.83mmHg. 13. The inferior vena cava is dilated with poor inspiratory collapse which is consistent with estimat ed right atrial pressure of 20 mmHg. CHAINMAN: Penny Faye RDCS
--- NOTE | 2021-02-27 11:18 | P.GSCN ---
History of Present Illness Consult date: 02/27/21 History of present illness: CHIEF COMPLAINT: Abdominal pain HISTORY OF PRESENT ILLNESS: This is a 50-year-old male presents to the hospital with complaints of right upper quadrant and epigastric pain that radiates to the back over the last 3-4 days. He has been nauseated. Denies any vomiting. Denies any worsening symptoms after eating. He also reports having some shortness of breath. Patient did have mild tachycardia on admission. He was found to have bilateral pleural effusions and received a dose of IV Lasix. He is seen evaluated by cardiology and pulmonary service. Denies any change in bowel habits. Patient is denies any NSAID use. Denies any history of peptic ulcer disease. PAST MEDICAL HISTORY: Atrial fibrillation not on anticoagulation, COPD, hyperlipidemia, hypertension, chronic lower back pain with sciatica, neuropathy bilateral hands, migraines, kidney stones, passed partial small bowel obstruction treated conservatively, bipolar, schizophrenia PAST SURGICAL HISTORY: Heart catheterization. No abdominal surgeries MEDICATIONS: See list. ALLERGIES: See list. SOCIAL HISTORY: No illicit drug use. Nicotine dependence. Marijuana use. REVIEW OF SYSTEMS: CONSTITUTIONAL: Denies fever or chills. HEENT: Denies blurred vision, vision changes, or eye pain. Denies hemoptysis CARDIOVASCULAR: Denies chest pain or pressure. RESPIRATORY: No shortness of breath. GASTROINTESTINAL: See HPI for pertinent findings HEMATOLOGIC: Denies bleeding disorders. GENITOURINARY: Denies any blood in urine or increased urinary frequency. SKIN: Denies pruitis. Denies rash. PHYSICAL EXAM: VITAL SIGNS: Reviewed GENERAL: Well-developed in no acute distress. HEENT: No sclera icterus. Extraocular movements grossly intact. Moist buccal mucosa. Head is atraumatic, normocephalic. No nasal drainage. ABDOMEN: Soft. Nondistended. Tenderness with palpation of the right upper quadrant NEUROLOGIC: Alert and oriented. Cranial nerves II through XII grossly intact. LABORATORY DATA: WBC is 7.9 hemoglobin 15.7 platelets 211 Sodium 139 potassium 4.5 BUN 19 creatinine 0.89 Troponin negative 2 elevated BNP lipase normal LFTs normal Urinalysis negative for infection Urine drug screen positive for opiates and marijuana COVID-19 not detected IMAGING: Computed tomography scan abdomen and pelvis no acute intra-abdominal process. Small bilateral pleural effusions with mild anasarca and trace fluid within the pelvis. Findings likely related to fluid overload. Hepatic steatosis. Renal ultrasound no evidence of obstructive uropathy Chest CTA no evidence of PE. There are a few enlarged mediastinal lymph nodes. Bilateral moderate pleural effusion with basilar infiltrate and atelectasis. Cardiomegaly. Lung disease significant increase compared to old exam. Echo shows an EF of 20-25%. Severe mitral regurgitation and severe tricuspid regurgitation. Severe pulmonary hypertension ASSESSMENT: 1. Right upper quadrant and epigastric abdominal pain that radiates to the back with nausea PLAN: -Patient is scheduled for EGD today with Dr. dixon -Keep patient nothing by mouth -Patient has received cardiac clearance to proceed with EGD -Continue PPI Thank you for this consultation Physician Burr Sander note has been reviewed by physician. Signing provider agrees with the documented findings, assessment, and plan of care. Past Medical History Past Medical History: Atrial Fibrillation, COPD, Hyperlipidemia, Hypertension, Pneumonia Additional Past Medical History / Comment(s): Other HX; Costochondritis, chronic pain, chronic low back pain with bilateral sciatica, neuropathy bilateral hands/feet, migraines, kidney stones, past partial small bowel o bstruction. HTN the last 10 yrs Stopped taking meds 5 yrs ago. COPD due to tobacco use. MArijuna use 3 -4 times a week - Smoke it History of Any Multi-Drug Resistant Organisms: None Reported, MRSA Year Discovered:: 04/10/18 MDRO Source:: TOE Past Surgical History: Heart Catheterization, Orthopedic Surgery Additional Past Surgical History / Comment(s): 03/14/18 Cardiac cath-normal coronaries, L shoulder rotator cuff repair x2, cervical injection. Past Anesthesia/Blood Transfusion Reactions: No Reported Reaction Past Psychological History: Anxiety, Bipolar, Depression, Schizophrenia Additional Psychological History / Comment(s): Pt was on Mental Health 2 years ago at [facility] for suicidal ideation - Not seeing anyone currently Smoking Status: Current every day smoker Past Alcohol Use History: None Reported Additional Past Alcohol Use History / Comment(s): Started smoking at age 15- smoked 1 ppd but has cut down to one pack a day Past Drug Use History: Marijuana, Prescription Drug Abuse Additional Drug Use History / Comment(s): Pt smokes marijuana on occasion. - Past Family History Father Family Medical History: Myocardial Infarction ([place]) Additional Family Medical History / Comment(s): mi at age 35, still living Mother Family Medical History: Myocardial Infarction (ND) Additional Family Medical History / Comment(s): Mother has had at least one ND- pt unsure at what age. He has not had much contact with his mother since he was 17 yrs old. Medications and Allergies Home Medications Medication Instructions Recorded Confirmed Type No Known Home Medications 02/25/21 02/25/21 History Allergies Allergy/AdvReac Type Severity Reaction Status Date / Time ibuprofen [From Motrin] AdvReac Nausea & Verified 02/25/21 18:33 Vomiting simvastatin [From Zocor] AdvReac Dizziness Verified 02/25/21 18:33 Surgical - Exam Vital Signs Temp Pulse Resp BP Pulse Ox 98.3 F 68 18 152/125 98 02/25/21 16:35 02/25/21 16:35 02/25/21 16:35 02/25/21 16:35 02/25/21 16:35 Results - Labs 02/26/21 16:20 02/26/21 13:07 Abnormal Lab Results - Last 24 Hours (Table) 02/26/21 Range/Units 16:20 MCV 100.4 H (80.0-100.0) fL MCHC 30.5 L (31.0-37.0) g/dL Diabetes panel 02/26/21 Range/Units 13:07 BUN 19 (9-20) mg/dL Creatinine 0.89 (0.66-1.25) mg/dL Thyroid panel 02/26/21 Range/Units 16:20 TSH 2.190 (0.465-4.680) mIU/L Pituitary panel 02/26/21 02/26/21 Range/Units 13:07 16:20 BUN 19 (9-20) mg/dL Creatinine 0.89 (0.66-1.25) mg/dL TSH 2.190 (0.465-4.680) mIU/L Adrenal panel 02/26/21 Range/Units 13:07 BUN 19 (9-20) mg/dL Creatinine 0.89 (0.66-1.25) mg/dL
[2021-02-27] MEDS ORDERED: IV FLUID CONTINUATION 1,000 ML IV ONE (13:37)
--- NOTE | 2021-02-27 13:55 | P.CNPUL ---
History of Present Illness Consult date: 02/27/21 Requesting physician: Michael Sosa Reason for consult: dyspnea Chief complaint: Dyspnea History of present illness: This is a 50-year-old white male patient with past medical history of hyperten jerrica, hyperlipidemia paroxysmal atrial fibrillation not on any chronic anticoagulation, current smoker, known history of COPD, chronic back pain with bilateral sciatica, neuropathy, kidney stones, who presented to the emergency department on 02/24/2021 with complaints of abdominal pain that has been worsening for one day. He described it as an achy sharp pain located in the right upper quadrant that radiated to his back. Patient has a history of previous abdominal surgery secondary to a bowel obstruction. Patient was endorsing nausea, and not tolerating oral intake. Denied any hematuria or dysuria. No chest pain. No fever or chills. No cough, no phlegm production. No hemoptysis. He was tested for COVID-19 and was found to be negative, CT of the abdomen and pelvis showed no acute intra-abdominal process, it did show small bilateral pleural effusions with mild anasarca and trace fluid within the pelvis and findings were felt to be likely related to fluid overload, and hepatic steatosis. Mr. blood work showed CBC within normal limits, normal white count of 8.5, hemoglobin of 15.9, coagulation profile was unremarkable, electrolytes and renal profile were unremarkable, BUN was 19, creatinine is 0.83. Lactic acid is 1.7, LFTs were within normal limits. Urinalysis was within normal limits, urine drug screen was positive for opiates and marijuana. Lipase was 81, amylase was 60. Renal ultrasound showed no evidence of obstructive uropathy. She is on room air with a pulse ox of 95-98%, he is afebrile, hemodynamically he is stable. Patient is in sinus rhythm. 3 sets of troponins were 0.012, ProBNP was 1610, TSH was within normal limits at 2.190. CT angiogram of the chest showed no evidence of pulmonary embolism, a few enlarged mediastinal lymph nodes, and bilateral moderate pleural effusions with basilar infiltrate and atelectasis. There was cardiomegaly. Echocardiogram was completed showing severe global hypokinesis of the left ventricle and severely impaired ejection fraction between 20-25%, right ventricle was severely enlarged, there was no evidence of aortic regurgitation or aortic stenosis, though severe mitral regurgitation, severe tricuspid regurgitation and severe pulmonary hypertension with right-sided pressure of 77.83 mmHg. Patient was see n by general surgery and he is scheduled for EGD. He is a mildly short of breath, he has peripheral edema in his bilateral lower extremities, nonpitting, in bilateral lower extremities. he was given a dose of IV Lasix yesterday. Start the patient on maintenance dose of IV Lasix, no plans for thoracentesis at this time. Review of Systems All systems: negative Constitutional: Denies chills, Denies fever Eyes: denies blurred vision, denies pain Ears, nose, mouth and throat: Denies headache, Denies sore throat Cardiovascular: Reports chest pain, Reports leg edema, Reports shortness of breath Respiratory: Reports dyspnea, Denies cough Gastrointestinal: Denies abdominal pain, Denies diarrhea, Denies nausea, Denies vomiting Musculoskeletal: Denies myalgias Integumentary: Denies pruritus, Denies rash Neurological: Denies numbness, Denies weakness Psychiatric: Denies anxiety, Denies depression Endocrine: Denies fatigue, Denies weight change Past Medical History Past Medical History: Atrial Fibrillation, COPD, Hyperlipidemia, Hypertension, Pneumonia Additional Past Medical History / Comment(s): Other HX; Costochondritis, chronic pain, chronic low back pain with bilateral sciatica, neuropathy bilateral hands/feet, migraines, kidney stones, past partial small bowel obstruction. HTN the last 10 yrs Stopped taking meds 5 yrs ago. COPD due to tobacco use. MArijuna use 3 -4 times a week - Smoke it History of Any Multi-Drug Resistant Organisms: None Reported, MRSA Date of last positivie culture/infection: 04/10/18 MDRO Source:: TOE Past Surgical History: Heart Catheterization, Orthopedic Surgery Additional Past Surgical History / Comment(s): 03/14/18 Cardiac cath-normal coronaries, L shoulder rotator cuff repair x2, cervical injection. Past Anesthesia/Blood Transfusion Reactions: No Reported Reaction Past Psychological History: Anxiety, Bipolar, Depression, Schizophrenia Additional Psychological History / Comment(s): Pt was on Mental Health 2 years ago at [facility] for suicidal ideation - Not seeing anyone currently Smoking Status: Current every day smoker Past Alcohol Use History: None Reported Additional Past Alcohol Use History / Comment(s): Started smoking at age 15- smoked 1 ppd but has cut down to one pack a day Past Drug Use History: Marijuana, Prescription Drug Abuse Additional Drug Use History / Comment(s): Pt smokes marijuana on occasion. - Past Family History Father Family Medical History: Myocardial Infarction ([place]) Additional Family Medical History / Comment(s): mi at age 35, still living Mother Family Medical History: Myocardial Infarction (IA) Additional Family Medical History / Comment(s): Mother has had at least one IA- pt unsure at what age. He has not had much contact with his mother since he was 17 yrs old. Medications and Allergies Home Medications Medication Instructions Recorded Confirmed Type No Known Home Medications 02/25/21 02/25/21 History Allergies Allergy/AdvReac Type Severity Reaction Status Date / Time ibuprofen [From Motrin] AdvReac Nausea & Verified 02/25/21 18:33 Vomiting simvastatin [From Zocor] AdvReac Dizziness Verified 02/25/21 18:33 Physical Exam Vitals: Vital Signs Temp Pulse Pulse Resp BP Pulse Ox 02/27/21 10:40 155/116 02/27/21 07:00 97.7 F 100 18 156/126 98 02/27/21 02:09 155/130 02/27/21 02:00 100 102 H 02/27/21 00:59 98.1 F 100 20 163/132 95 02/26/21 20:00 101 H 20 02/26/21 19:20 96.2 F L 101 H 20 150/99 95 02/26/21 15:00 97.5 F L 104 H 19 154/116 97 02/26/21 14:00 104 H 19 Intake and Output 02/26/21 02/27/21 02/27/21 22:59 06:59 14:59 Other: Voiding Method Toilet Urinal # Voids 2 3 GENERAL EXAM: Alert, very pleasant, 50-year-old white male, sitting on the edge of the bed, reading comfortably, on room air, with a pulse ox of 98% comfortable in no apparent distress. HEAD: Normocephalic/atraumatic. EYES: Normal reaction of pupils, equal size. Conjunctiva pink, sclera white. NOSE: Clear with pink turbinates. THROAT: No erythema or exudates. NECK: No masses, no JVD, no thyroid enlargement, no adenopathy. CHEST: No chest wall deformity. Symmetrical expansion. LUNGS: Equal air entry with diffuse crackles at bilateral bases, diminished breath sounds CVS: Regular rate and rhythm, normal S1 and S2, no gallops, no murmurs, no rubs ABDOMEN: Soft, nontender. No hepatosplenomegaly, normal bowel sounds, no guarding or rigidity. EXTREMITIES: No clubbing, nonpitting edema in bilateral lower extremities, with chronic venous stasis in bilateral lower extremities no cyanosis, 2+ pulses and upper and lower extremities. MUSCULOSKELETAL: Muscle strength and tone normal. SPINE: No scoliosis or deformity SKIN: No rashes. Patient has multiple tattoos all over his chest, back, arms, torso and legs CENTRAL NERVOUS SYSTEM: Alert and oriented -3. No focal deficits, tone is normal in all 4 extremities. PSYCHIATRIC: Alert and oriented -3. Appropriate affect. Intact judgment and insight. Results - Laboratory Findings CBC and BMP: 02/26/21 16:20 02/26/21 13:07 PT/INR, D-dimer PT 11.2 sec (9.0-12.0) 02/25/21 18:02 INR 1.1 (<1.2) 02/25/21 18:02 Abnormal lab findings: Abnormal Labs 02/25/21 02/25/21 02/25/21 18:02 18:02 21:08 MCV MCHC APTT 21.1 L Chloride 109 H Total Protein 6.1 L Albumin 3.4 L Urine Opiates Screen Detected H U Marijuana (THC) Screen Detected H 02/26/21 16:20 MCV 100.4 H MCHC 30.5 L APTT Chloride Total Protein Albumin Urine Opiates Screen U Marijuana (THC) Screen - Diagnostic Findings CT scan - chest: report reviewed, image reviewed Additional studies: EKG reviewed, renal ultrasound reviewed, CT of the abdomen and pelvis reviewed Assessment and Plan Plan: Assessment: #1. Dyspnea, related to acute exacerbation of systolic CHF and bilateral pleural effusions. CT angiogram of the chest was negative for pulmonary embolism and bilateral pleural effusions, infiltrates at the bases and atelectasis. There were a few paratracheal lymph nodes measuring up to 1.5 cm. These will be followed with follow up CT scans #2. Right upper quadrant epigastric pain, radiating to the back, CT of the abdomen and pelvis showed no acute intra-abdominal process, it did show hepatic steatosis. Lipase and amylase were negative, renal ultrasound showed no hydronephrosis, and no nephrolithiasis, and no masses. #3. Paroxysmal atrial fibrillation, currently in sinus mechanism, not normally on any anticoagulation #4. Underlying history of COPD, not usually on home oxygen #5. Current and ongoing history of smoking. Urine drug screen also showed evidence of marijuana. Patient carries [id number] smoking history #6. Chronic back pain #7. Hypertension, untreated #8. Hyperlipidemia, untreated #9. Severe pulmonary hypertension, with no CTA evidence of pulmonary embolism, likely secondary to underlying COPD, valvular heart disease, and possibility of chronic hypoxia #10. Previous history of pneumonia #11. Bipolar disorder and schizophrenia #12. Anxiety #13. Previous history of MRSA infection in the toe #14. Depression with previous history of suicidal ideations #15. Previous history of bowel resection for bowel obstruction Plan: CTA chest reviewed showing small bilateral pleural effusions, no plans for thoracentesis, continue medical management Patient also has peripheral edema Echocardiogram reviewed showing severe impairment of left ventricular systolic function and EF of 20-25% We'll start maintenance dose IV Lasix 40 mg every 12 hours Prior to discharge home we will have to test and see if the patient qualifies for home oxygen We will also need outpatient follow-up with Dr. Bryan in the office after discharge We'll continue to follow his clinical course Follow-up chest x-ray tomorrow, follow up labs electrolytes and renal profile I performed a history & physical examination of the patient and discussed their management with my nurse practitioner, Sarah Brown. I reviewed the nurse practitioner's note and agree with the documented findings and plan of care. L felix sounds are diminished breaths for throughout the lung narayanan. The findings and the impression was discussed with the patient. I attest to the documentation by the nurse practitioner. Time with Patient: Greater than 30
--- NOTE | 2021-02-27 13:59 | P.OP ---
Date of Procedure: 02/27/21 Preoperative Diagnosis: Abdominal pain Postoperative Diagnosis: Mild antral gastritis Procedure(s) Performed: EGD Anesthesia: MAC Surgeon: Hi Mina Pathology: other (Antrum) Condition: stable Disposition: PACU Description of Procedure: The patient's placed on the endoscopy table in the lateral position. He received IV sedation. The gastro-/oropharynx passed in the esophagus into the stomach. Scope was placed through the pylorus. The first and second portion of duodenum appeared normal. Scope summer back the antrum was minimally inflamed. A biopsies performed. The scope was retroflexed and remainder of the stomach appeared normal. The GE junction was at 40 cm the distal esophagus appeared normal. Proximal esophagus appeared normal. Scope was withdrawn for patient.
[2021-02-27] MEDS ORDERED: LACTATED RINGERS 1,000 ML IV ONE (14:03)
--- NOTE | 2021-02-27 14:20 | P.PN ---
Progress Note - Text Progress Note Date: 02/27/21 I attempted to interview and evaluate the patient today at approximately 1:50 PM for psychiatric evaluation due to his history of schizophrenia, bipolar, MDD, anxiety despite the patient not taking any prescribed psychotropic medications. Patient has already gone down for his EGD procedure. We will attempt to re- evaluate the patient tomorrow. Patient's nurse was made aware. Lebron Yanez MD
[2021-02-27] MEDS: FUROSEMIDE 10 MG/ML 4 ML VIAL IV SCH ×2 (14:50→20:00)
--- NOTE | 2021-02-27 17:05 | P.PN ---
Subjective Progress Note Date: 02/27/21 Principal diagnosis: CC: chest pain 50 years old male patient who has past medical history significant for hypertension and psychiatric diagnoses of bipolar disorder and schizophrenia. Previously has been seen in the hospital for depression and suicidal ideation, also documented in his past medical history is chronic chest pain. At that time his chest pain was noted to be of chronic nature and has been going on for last many years. Patient also has history of atrial fibrillation per electronic medical records but currently he is not on any regular home medications. Patient presented with progressively worsening epigastric/right upper quadrant pain, apparently this has been going on for the last 4 days and very unusual for him as he had no such pain before in the past. He is denying hematemesis melena diarrhea constipation any recent fevers cough or any other symptom. He does notice progressively worsening shortness of breath and lower extremity swelling with his symptoms, CT abdomen and pelvis negative for any acute findings, CTA chest was done which showed moderate bilateral pleural effusion. Patient was admitted for possible gastritis with epigastric tenderness or hospital medicine service. Patient had an EGD that was unremarkable. Patient had an echocardiogram that showed an EF of 20-25%. I discussed with cardiology and PE who said plan is for heart catheterization while patient is inpatient. Patient states that he still feels short of breath. He states that he is not ready to go home. Patient also states that he does not have a place to stay and is wondering if he can speak with case management social worker. Objective - Vital Signs Vital signs: Vital Signs Temp 97.5 F L 02/27/21 15:53 Pulse 91 02/27/21 15:53 Resp 18 02/27/21 15:53 BP 143/101 02/27/21 15:53 Pulse Ox 91 L 02/27/21 15:53 Intake & Output 02/26/21 02/27/21 02/27/21 18:59 06:59 18:59 Intake Total 525 400 Balance 525 400 Weight 108.862 kg Intake: IV 400 Intake, IV Titration 525 Amount Sodium Chloride 0.9% 1, 525 000 ml @ 75 mls/hr IV . [id number] [facility] Rx#:[id number] Other: Voiding Method Toilet Toilet Urinal Urinal # Voids 3 2 - Exam General examination - Alert and Oriented 3 in NAD Heart - + S1S2 no murmurs Lungs - bilateral lower lung crackles Abdomen soft NT ND +ve BS Extremities - +3 pitting edema in bilateral lower extremities ELEPHANT TAMER - Moving all 4 extremities spontaneously Psych - Calm and cooperative - Labs CBC & Chem 7: 02/26/21 16:20 02/26/21 13:07 Assessment and Plan Assessment: New onset acute systolic heart failure Echocardiogram showed EF of 20-25% Patient started on lisinopril, metoprolol, IV Lasix 40 mg every 12 hours, aspirin and statin Will defer LifeVest to cardiology Awaiting for further recommendations from cardiology regarding ischemic workup. I spoke to cardiology [employer] who said plan is for inpatient heart catheterization Epigastric tenderness Likely etiology is cardiac EGD is unremarkable Awaiting for cardiology recommendations ischemic workup Resume Protonix and Carafate Hypertension Patient blood pressures is on the higher side, he is not on any antihypertensive medication at home although he has history of hypertension in the past Patient will be started on low-dose metoprolol Careful diuresis as mentioned above Adding hydralazine as needed History of psychiatric disorder, bipolar and schizophrenia We'll consult psychiatry for evaluation of his psychiatric issues and if he needs any medications to be restarted, currently not on any home medication for psychiatric issues. Patient had gone for EGD so psychiatry will evaluate patient tomorrow DVT prophylaxis: SCDs CODE STATUS: Full code Discharge plan/next site of care: Pending workup hospital course, likely back to home
[2021-02-27] MEDS: ATORVASTATIN 20 MG TAB PO SCH (20:00)
[2021-02-27] MEDS ORDERED: LORATADINE 10 MG TAB PO PRN (20:11)
[2021-02-28] MEDS: MORPHINE SULFATE 4 MG/ML SYRINGE IV PRN ×5 (00:17→23:35)
[2021-02-28 06:44] LABS: Basophils # (A) 0.1 k/uL (0-0.2); Basophils % (A) 1 %; Eosinophils # (A) 0.3 k/uL (0-0.7); Eosinophils % (A) 3 %; HCT 48.2 % (39.0-53.0); HGB 15.5 gm/dL (13.0-17.5); Lymphocytes # (A) 1.9 k/uL (1.0-4.8); Lymphocytes % (A) 21 %; MCH 31.5 pg (25.0-35.0); MCHC 32.1 g/dL (31.0-37.0); MCV 98.4 fL (80.0-100.0); Mean Platelet Volume 8.9; Monocytes # (A) 0.7 k/uL (0-1.0); Monocytes % (A) 8 %; Neutrophils # (A) 5.8 k/uL (1.3-7.7); Neutrophils % (A) 66 %; Platelet Count 175 k/uL (150-450); RDW 13.6 % (11.5-15.5); WBC 8.8 k/uL (3.8-10.6)
[2021-02-28 07:04] LABS: African American GFR (CKD) >90 (>60 ml/min/1.73 sqM); Anion Gap 7 mmol/L; Blood Urea Nitrogen 22 mg/dL (9-20); Calcium 8.8 mg/dL (8.4-10.2); Carbon Dioxide 26 mmol/L (22-30); Chloride 103 mmol/L (98-107); Glucose 62 mg/dL (74-99); Non-African American GFR(CKD) 79 (>60 ml/min/1.73 sqM); Potassium 4.3 mmol/L (3.5-5.1); Sodium 136 mmol/L (137-145)
[2021-02-28] MEDS: MAG HYDROX/AL HYDROX/SIMETH 30 ML CUP PO SCH ×4 (09:05→21:32)
[2021-02-28] MEDS: LIDOCAINE VISCOUS 2% 15 ML CUP MUCOUS MEM SCH ×2 (09:05→20:40)
[2021-02-28] MEDS: ASPIRIN 81 MG PO SCH (09:05)
[2021-02-28] MEDS: METOPROLOL TARTRATE 25 MG TAB PO SCH ×2 (09:06→20:39)
[2021-02-28] MEDS: SUCRALFATE 1 GM TAB PO SCH ×3 (09:06→17:01)
[2021-02-28] MEDS: FUROSEMIDE 10 MG/ML 4 ML VIAL IV SCH (09:06)
[2021-02-28] MEDS: PANTOPRAZOLE 40 MG/10 ML VIAL IVP SCH ×2 (09:06→19:12)
[2021-02-28] MEDS: lisinopriL 10 MG TAB PO SCH (09:06)
--- NOTE | 2021-02-28 09:17 | NM ---
EXAMINATION TYPE: NM hepatobiliary w CCK DATE OF EXAM: 02/28/2021 COMPARISON: CT 02/25/2021 HISTORY: Abdominal pain TECHNIQUE: After the intravenous administration of 5.3 mCi Tc 99m Mebrofenin hepatobiliary scintigrap hy is performed. Immediate images post injection. FINDINGS: There is satisfactory initial accumulation of tracer by the liver. The gallbladder is visualized wit hin 6 minutes. The small bowel activity is noted within 46 minutes. At one hour CCK was administere d, patient was injected with 2.2 mcg of Kinevac, and gallbladder ejection fraction is calculated at 8 4 %, at the upper limit of the normal range. Therefore there is no scintigraphic evidence of cystic or common bile duct obstruction to suggest acute cholecystitis or gallbladder dyskinesia. IMPRESSION: Exam is within normal limits.
--- NOTE | 2021-02-28 09:58 | XR ---
EXAMINATION TYPE: XR chest 1V portable DATE OF EXAM: 02/28/2021 COMPARISON: Chest x-ray 02/23/[address] 02/26/2021 HISTORY: Dyspnea TECHNIQUE: Single frontal view of the chest is obtained. FINDINGS: Findings are similar to prior exam. Heart size is accentuated possibly due to expiratory r otated technique. No evident pneumothorax or sizable pleural effusion, question some minimal. Patchy basilar density persists. IMPRESSION: The pleural effusion seen on prior CT not seen on today's exam, there may be basilar ate lectasis or edema
--- NOTE | 2021-02-28 10:57 | P.PN ---
Subjective Progress Note Date: 02/28/21 This is a 50-year-old white male patient with past medical history of hypertension, hyperlipidemia paroxysmal atrial fibrillation not on any chronic anticoagulation, current smoker, known history of COPD, chronic back pain with bilateral sciatica, neuropathy, kidney stones, who presented to the emergency department on 02/24/2021 with complaints of abdominal pain that has been worsening for one day. He described it as an achy sharp pain located in the right upper quadrant that radiated to his back. Patient has a history of previous abdominal surgery secondary to a bowel obstruction. Patient was e ndorsing nausea, and not tolerating oral intake. Denied any hematuria or dysuria. No chest pain. No fever or chills. No cough, no phlegm production. No hemoptysis. He was tested for COVID-19 and was found to be negative, CT of the abdomen and pelvis showed no acute intra-abdominal process, it did show small bilateral pleural effusions with mild anasarca and trace fluid within the pelvis and findings were felt to be likely related to fluid overload, and hepatic steatosis. Mr. blood work showed CBC within normal limits, normal white count of 8.5, hemoglobin of 15.9, coagulation profile was unremarkable, electrolytes and renal profile were unremarkable, BUN was 19, creatinine is 0.83. Lactic acid is 1.7, LFTs were within normal limits. Urinalysis was within normal limits, urine drug screen was positive for opiates and marijuana. Lipase was 81, amylase was 60. Renal ultrasound showed no evidence of obstructive uropathy. She is on room air with a pulse ox of 95-98%, he is afebrile, hemodynamically he is stable. Patient is in sinus rhythm. 3 sets of troponins were 0.012, ProBNP was 1610, TSH was within normal limits at 2.190. CT angiogram of the chest showed no evidence of pulmonary embolism, a few enlarged mediastinal lymph nodes, and bilateral moderate pleural effusions with basilar infiltrate and atelectasis. There was cardiomegaly. Echocardiogram was completed showing severe global hypokinesis of the left ventricle and severely impaired ejection fraction between 20-25%, right ventricle was severely enlarged, there was no evidence of aortic regurgitation or aortic stenosis, though severe mitral regurgitation, severe tricuspid regurgitation and severe pulmonary hypertension with right-sided pressure of 77.83 mmHg. Patient was seen by general surgery and he is scheduled for EGD. He is a mildly short of breath, he has peripheral edema in his bilateral lower extremities, nonpitting, in bilateral lower extremities. he was given a dose of IV Lasix yesterday. Start the patient on maintenance dose of IV Lasix, no plans for thoracentesis at this time. The patient is seen today 02/28/2021 in follow-up on the regular medical floor. He is currently sitting up in bed. Awake and alert in no acute distress. Denies any worsening shortness of breath, cough or congestion. Maintaining O2 saturations in the mid 90s on room air. He's been afebrile. All of chest x-ray reveals no evidence of pneumothorax or sizable pleural effusions. Some patchy basilar densities persist. Most likely atelectasis. EGD revealed mild antral gastritis. Hepatobiliary scan revealed no abnormalities. White count 8.8. Hemoglobin 15.5. Sodium 136. Potassium 4.3. Creatinine 1.10. He remains on Lasix 40 mg IV every 12 hours. Objective - Vital Signs Vital signs: Vital Signs Temp 97.4 F L 02/28/21 08:00 Pulse 69 02/28/21 08:00 Resp 18 02/28/21 08:00 BP 162/119 02/28/21 08:00 Pulse Ox 98 02/28/21 01:42 Intake & Output 02/27/21 02/28/21 02/28/21 18:59 06:59 18:59 Intake Total 400 Balance 400 Weight 108.862 kg Intake: IV 400 Other: Voiding Method Toilet Urinal # Voids 2 3 0 - Exam GENERAL EXAM: Alert, very pleasant, 50-year-old male, resting comfortably in bed, on room air, with a pulse ox of 98%. HEAD: Normocephalic/atraumatic. EYES: Normal reaction of pupils, equal size. Conjunctiva pink, sclera white. NOSE: Clear with pink turbinates. THROAT: No erythema or exudates. NECK: No masses, no JVD, no thyroid enlargement, no adenopathy. CHEST: No chest wall deformity. Symmetrical expansion. LUNGS: Equal air entry with crackles at bilateral bases, diminished breath sounds CVS: Regular rate and rhythm, normal S1 and S2, no gallops, no murmurs, no rubs ABDOMEN: Soft, nontender. No hepatosplenomegaly, normal bowel sounds, no guarding or rigidity. EXTREMITIES: No clubbing, nonpitting edema in bilateral lower extremities, with chronic venous stasis in bilateral lower extremities no cyanosis, 2+ pulses and upper and lower extremities. MUSCULOSKELETAL: Muscle strength and tone normal. SPINE: No scoliosis or deformity SKIN: No rashes. Patient has multiple tattoos all over his chest, back, arms, torso and legs CENTRAL NERVOUS SYSTEM: No focal deficits, tone is normal in all 4 extremities. PSYCHIATRIC: Alert and oriented -3. Appropriate affect. Intact judgment and insight. - Labs CBC & Chem 7: 02/28/21 06:06 02/28/21 06:06 Labs: Abnormal Lab Results - Last 24 Hours (Table) 02/28/21 Range/Units 06:06 Sodium 136 L (137-145) mmol/L BUN 22 H (9-20) mg/dL Glucose 62 L (74-99) mg/dL Assessment and Plan Assessment: 1 Dyspnea, related to acute exacerbation of systolic CHF and bilateral pleural effusions. Echocardiogram revealed severe left ventricular systolic function with ejection fraction 20-25%. CT angiogram of the chest was negative for pulmonary embolism and bilateral pleural effusions, infiltrates at the bases and atelectasis. There were a few paratracheal lymph nodes measuring up to 1.5 cm. These will be followed with follow up CT scans 2 Right upper quadrant epigastric pain, radiating to the back, CT of the abd omen and pelvis showed no acute intra-abdominal process, it did show hepatic steatosis. Lipase and amylase were negative, renal ultrasound showed no hydronephrosis, and no nephrolithiasis, and no masses. EGD revealed mild gastritis. Hepatobiliary scan within normal limits. 3 Paroxysmal atrial fibrillation, currently in sinus mechanism, not normally on any anticoagulation 4 Underlying history of COPD, not usually on home oxygen 5 Current and ongoing history of smoking. Urine drug screen also showed evidence of marijuana. Patient carries [id number] smoking history 6 Chronic back pain 7 Hypertension, untreated 8 Hyperlipidemia, untreated 9 Severe pulmonary hypertension, with no CTA evidence of pulmonary embolism, likely secondary to underlying COPD, valvular heart disease, and possibility of chronic hypoxia 10 Previous history of pneumonia 11 Bipolar disorder and schizophrenia 12 Anxiety 13 Previous history of MRSA infection in the toe 14 Depression with previous history of suicidal ideations 15 Previous history of bowel resection for bowel obstruction Plan: The patient was seen and evaluated by Dr. Barbara Aly from the pulmonary standpoint, on room air EGD revealed mild gastritis Hepatobiliary scan within normal limits Transition to oral Lasix Cleared for discharge once cleared medically Follow-up in the office regarding paratracheal lymph nodes I, the cosigning physician, performed a history & physical examination of the patient. Lungs sounds with crackles in the bilateral bases. Maintaining good O2 saturations in the 90s on room air. I discussed the assessment and plan of care with my nurse practitioner, Precious Hassan. I attest to the above note as dictated by her.
[2021-02-28] MEDS ORDERED: ALPRAZolam 0.5 MG TAB PO PRN (12:04)
[2021-02-28] MEDS ORDERED: NITROGLYCERIN SL TABS 0.4 MG TAB SUBLINGUAL PRN (12:04)
[2021-02-28] MEDS ORDERED: ALPRAZolam 0.25 MG TAB PO PRN (12:04)
--- NOTE | 2021-02-28 12:46 | P.PN ---
Subjective Progress Note Date: 02/28/21 HISTORY OF PRESENT ILLNESS: This is a 50-year-old male with a past medical history significant for hypertension, nicotine dependence, marijuana use, and atrial fibrillation per the patient not on anticoagulation. Patient follows in the office with Dr. Owens but has not been seen in the office since 2019. We have been asked to see the patient in consultation for chest pain. Patient examined at the bedside. Patient presented to the hospital with a chief complaint of abdominal pain. Patient has been having right upper quadrant pain for the past 3 days. He also reports nausea without vomiting. He denies having a fever. The patient currently denies chest pain or pressure. He states he did not have chest pain at home. The patient is currently rating his abdominal pain 10/10. He is scheduled for EGD today with Dr. Mina. EKG reveals sinus tachycardia with no signs of acute ischemia CT negative for pulmonary embolism. Laboratory data: WBC 7.9. Hemoglobin 15.7. Platelet count 211. Troponin negative 2. Sodium 139. Potassium 4.5. BUN 19. Creatinine 0.83. Lactic acid 1.7. Current home cardiac medications include none Most recent echocardiogram obtained in 2019 revealed ejection fraction 50-55%, moderate tricuspid regurgitation, moderate pulmonary hypertension Cardiac catheterization history: 2018 revealing normal coronary arteries 02/28/2021 Patient had echocardiogram completed yesterday revealing ejection fraction 20- 25%, severe global hypokinesis of LV, severe mitral regurgitation, severe tricuspid regurgitation, and severe pulmonary hypertension. The patient underwent EGD yesterday with Dr. Mina revealing gastritis. He also underwent a HIDA scan today which was unremarkable. The patient currently denies chest pain or pressure. He denies shortness of breath. PHYSICAL EXAM: VITAL SIGNS: Reviewed. GENERAL: Well-developed in no acute distress. HEENT: Head is normocephalic. Pupils are equal, round. Sclerae anicteric. Mucous membranes of the mouth are moist. Neck supple. No JVD or thyromegaly LUNGS: Respirations even and unlabored. Lungs essentially clear to auscultation bilaterally. HEART: Regular rate and rhythm. S1 and S2 heard. EXTREMITIES: Normal range of motion. No clubbing or cyanosis. Peripheral pulses intact. Bilateral lower extremity edema ASSESSMENT: Abdominal pain Chest pain, ruled out, troponin negative x 2 Acute systolic congestive heart failure New-onset cardiomyopathy, etiology unclear Hypertension Nicotine dependence Marijuana use History of atrial fibrillation per patient not on anticoagulation PLAN: Continue current cardiac medications including aspirin 81 mg daily, Lipitor 20 mg daily, Lasix 40 mg IV every 12 hours, lisinopril 10 mg daily, and metoprolol tartrate 25 mg twice a day Patient to undergo cardiac catheterization tomorrow with Dr. Burleson to assess for underlying coronary artery disease secondary to new onset cardiomyopathy Further recommendations pending patient's course Nurse practitioner note has been reviewed by physician. Signing provider agrees with the documented findings, assessment, and plan of care. Objective - Vital Signs Vital signs: Vital Signs Temp 97.4 F L 02/28/21 08:00 Pulse 69 02/28/21 08:00 Resp 18 02/28/21 08:00 BP 162/119 02/28/21 08:00 Pulse Ox 98 02/28/21 01:42 Intake & Output 02/27/21 02/28/21 02/28/21 18:59 06:59 18:59 Intake Total 400 Balance 400 Weight 108.862 kg Intake: IV 400 Other: Voiding Method Toilet Urinal # Voids 2 3 0 - Labs CBC & Chem 7: 02/28/21 06:06 02/28/21 06:06 Labs: Abnormal Lab Results - Last 24 Hours (Table) 02/28/21 Range/Units 06:06 Sodium 136 L (137-145) mmol/L BUN 22 H (9-20) mg/dL Glucose 62 L (74-99) mg/dL
[2021-02-28 12:59] LABS: Glucose,Whole Blood 85 mg/dL (75-99)
[2021-02-28 13:04] LABS: Total Bilirubin 0.6 mg/dL (0.2-1.3)
--- NOTE | 2021-02-28 13:40 | P.CN ---
Psychiatric Consult - . Consult date: 02/28/21 Consult:: 02/28/21 13:39 IDENTIFYING DATA: This patient is a , unemployed, 50-year-old male who was admitted for abdominal pain. HISTORY OF PRESENT ILLNESS: The patient presented to the hospital on 02/25/2021, who presented to the emergency department the chief complaint of acute onset right-sided abdominal pain with associated nausea. Over the course of the hospitalization, the patient underwent an EGD and is now scheduled for cardiac cath tomorrow. Psychiatry has been consulted as the patient has a significant history of psychiatric illness and is currently not on any medications or treatment. Upon evaluation on the medical floor by this provider, the patient reports that he has been doing really well psychiatrically. He states that he was following up with [facility] in the outpatient setting and has since graduated from their care. He reports that since he was doing so well, [facility] did not see any reason to continue treatment for the patient. He states that he is not experiencing any suicidal or homicidal ideation, intention, and/or plan. He is not reporting any auditory or visual hallucinations. He is denying any paranoia or other delusions. The patient states that he has some difficulty with his abdominal pain but states that he is glad to be getting the help that he needs and understands that he'll be receiving a cardiac catheterization tomorrow. Aside from his health issues, the patient is not endorsing any significant psychosocial stressors. The patient does have a significant history of substance use however has significantly decreased his use of any illicit substances. He reports that he has quit tobacco. He states that he has cut down his marijuana use but continues to use it 3-4 times per week. He reports no other illicit drug use or any heavy alcohol use. PAST PSYCHIATRIC HISTORY: Patient has a history of major depressive disorder and polysubstance abuse. During his hospitalization in 2018, the patient was discharged on a regimen of Cymbalta 60 mg twice a day, Abilify 15 mg daily, Seroquel 200 mg at bedtime, and Remeron 45 mg at bedtime. As per chart review, the patient has had 5 inpatient psychiatric hospitalizations from 2017 to April 2019. The patient was previously open [facility] but is currently not open with them. The patient has had 3-4 suicide attempts including by overdose, cutting his wrists, and jumping in front of cars. PAST MEDICAL HISTORY: Past Medical History: Atrial Fibrillation, COPD, Hyperlipidemia, Hypertension, Pneumonia Additional Past Medical History / Comment(s): Other HX; Costochondritis, chronic pain, chronic low back pain with bilateral sciatica, neuropathy bilateral hands/feet, migraines, kidney stones, past partial small bowel obstruction. HTN the last 10 yrs Stopped taking meds 5 yrs ago. COPD due to tobacco use. MArijuna use 3 -4 times a week - Smoke it History of Any Multi-Drug Resistant Organisms: None Reported, MRSA Date of last positivie culture/infection: 04/10/18 MDRO Source:: TOE Past Surgical History: Heart Catheterization, Orthopedic Surgery Additional Past Surgical History / Comment(s): 03/14/18 Cardiac cath-normal coronaries, L shoulder rotator cuff repair x2, cervical injection. Past Anesthesia/Blood Transfusion Reactions: No Reported Reaction Past Psychological History: Anxiety, Bipolar, Depression, Schizophrenia Additional Psychological History / Comment(s): Pt was on Mental Health [address] [facility] for suicidal ideation - Not seeing anyone currently Smoking Status: Current every day smoker Past Alcohol Use History: None Reported Additional Past Alcohol Use History / Comment(s): Started smoking at age 15- smoked 1 ppd but has cut down to one pack a day Past Drug Use History: Marijuana, Prescription Drug Abuse Additional Drug Use History / Comment(s): Pt smokes marijuana on occasion. ALLERGIES: as per EMR. CHEMICAL DEPENDENCY HISTORY: The patient has a significant history of OxyContin abuse, marijuana use, and some history of methamphetamine and heroin use. He reports that he smokes daily. He has since cut down his marijuana use. FAMILY PSYCHIATRIC/SUBSTANCE USE HISTORY: Unable to assess SOCIAL HISTORY: Patient is currently . He has 4 children. He is currently unemployed. MENTAL STATUS EXAM: General Appearance: Patient appears to be stated age is alert, pleasant, and cooperative. Patient appears to have good hygiene and grooming wearing hospital gown with fair eye contact. Behavior: Patient is calmly lying in bed without any agitated behavior. Speech: Patient's speech is fluent and nonpressured. Mood/Affect: Patient reports their mood is "doing all right", affect is congruent and euthymic with appropriate range. Suicidality/Homicidality: Patient vehemently denies any suicidal or homicidal ideation, intention, and/or plan. Perceptions: The patient denies any auditory or visual hallucinations. Though content/process: There is no evidence of any delusional thought content and thought process is linear and goal-directed. Memory and concentration: AOX3, grossly intact for the purposes of this session. Can spell "WORLD" backwards Judgment and insight: Fair IMPRESSIONS: Acute systolic congestive heart failure Cardiomyopathy Nicotine dependence Cannabis use disorder History of major depressive disorder with psychotic features History of methamphetamine abuse History of opioid use disorder PLAN: -At this time patient DOES NOT meet criteria for inpatient psychiatric admission. -Would recommend the following medication changes/additions: No medication recommendations are going to be made at this time. The patient has been relatively stable over the last few years since his discontinuation of methamphetamines and other illicit drugs. -Discussed at length that the patient should return to [facility] should he feel that his mood/thoughts begin to worsen in order to be restarted on his medications and engage in appropriate follow-up. -Psychiatry will sign off at this point, please contact with any questions. 02/28/21 13:40
--- NOTE | 2021-02-28 13:50 | P.PN ---
Subjective Progress Note Date: 02/28/21 The patient is a 50 years old male with a PMH of polysubstance abuse, hypertension, psychiatric diagnoses of bipolar disorder and schizophrenia. Previously has been seen in the hospital for depression and suicidal ideation, also documented in his past medical history is chronic chest pain. At that time his chest pain was noted to be of chronic nature and had been going on for last many years. Patient also has history of atrial fibrillation per electronic medical records but currently he is not on any regular home medications. Patient presented with progressively worsening epigastric/right upper quadrant pain, apparently this had been going on for the prior 4 days and very unusual for him as he had no such pain before in the past. He also reported gradually worsening shortness of breath along lower extremity bilateral swelling. CT abdomen and pelvis negative for any acute findings, CTA chest was done which showed moderate bilateral pleural effusion. Patient was admitted for possible gastritis with epigastric tenderness. Patient had an EGD that was unremarkable. Patient had an echocardiogram that showed an EF of 20-25%. Cardiology was consulted and the patient was scheduled for left heart catheterization which is to be performed on 03/01. The patient was seen and examined at the bedside on 02/28. He reported ongoing epigastric chest discomfort along with shortness of breath and lower extremity edema. He reported that the pain is 3 out of 10 with pain medications and 8 out of 10 at maximal intensity. Reports that the pain is somewhat exertional in nature. He denied nausea vomiting, fever, chills, cough. Objective - Vital Signs Vital signs: Vital Signs Temp 97.4 F L 02/28/21 08:00 Pulse 69 02/28/21 08:00 Resp 18 02/28/21 08:00 BP 162/119 02/28/21 08:00 Pulse Ox 98 02/28/21 01:42 Intake & Output 02/27/21 02/28/21 02/28/21 18:59 06:59 18:59 Intake Total 400 Output Total 0 Balance 400 0 Weight 108.862 kg Intake: IV 400 Output: Stool 0 Other: Voiding Method Toilet Urinal # Voids 2 3 1 - Exam General: Non-toxic, in no acute distress, appears stated age, obese HEENT: NC/AT, anicteric sclerae, moist conjunctiva, no lid-lag, PERRLA Cardiovascular: S1/S2 wnl, no murmurs, rubs, or gallops Lungs: Clear to auscultation, normal respiratory effort, no accessory muscle use Abdominal: Soft, non-tender, non-distended, no guarding, rebound, or rigidity Skin: Warm, dry Extremities: 1+ bilateral lower extremity pitting edema, no contractures noted Psychiatric: Alert and oriented to person, place and time, appropriate affect Neuro: CN II-XII grossly intact, Strength 5/5 in all 4 extremities, Speech intact, Sensation to light touch grossly intact throughout - Labs CBC & Chem 7: 02/28/21 06:06 02/28/21 06:06 Labs: Abnormal Lab Results - Last 24 Hours (Table) 02/28/21 Range/Units 06:06 Sodium 136 L (137-145) mmol/L BUN 22 H (9-20) mg/dL Glucose 62 L (74-99) mg/dL Assessment and Plan Plan: Newly diagnosed systolic CHF with EF 20-25% -Cardiology consulted with recommendations appreciated -Continue with lisinopril, beta darleen -Lasix switched to oral -Fluid restriction, daily weights, intake and output -Monitor electrolytes daily -Cardiac catheterization scheduled for tomorrow -LifeVest deferred to cardiology Hypertension -Continue with lisinopril, Lasix, and Lopressor History of schizophrenia and bipolar disorder -Psychiatry consulted with no medications recommended at this time as the patient has been stable for several years DVT prophylaxis -Heparin subcu Discussed with: Patient Anticipated discharge date: in am Anticipated discharge place: [facility]
--- NOTE | 2021-02-28 14:17 | P.PN ---
Subjective Progress Note Date: 02/28/21 CHIEF COMPLAINT: Abdominal pain HISTORY OF PRESENT ILLNESS: Surgical service following regards to patient's abdominal pain. Patient had EGD completed yesterday which showed mild antral gastritis. He had HIDA scan completed this morning which showed an EF of 84% which is a hyperkinetic gallbladder. Patient still reports some right upper quadrant abdominal pain. He is asking for more to eat. He denies any nausea or vomiting. He is currently on IV Lasix for fluid overload. Echo showed an EF of 20-25%. He is followed by cardiology. The plan to proceed with heart catheterization tomorrow. Afebrile. WBC is 8.8 hemoglobin 15.5 PHYSICAL EXAM: VITAL SIGNS: Reviewed. GENERAL: Well-developed in no acute distress. HEENT: No sclera icterus. Extraocular movements grossly intact. Moist buccal mucosa. Head is atraumatic, normocephalic. ABDOMEN: Soft. Nondistended. Tenderness with palpation of right upper quadrant NEUROLOGIC: Alert and oriented. Cranial nerves II through XII grossly intact. ASSESSMENT: 1. Right upper quadrant and epigastric abdominal pain that radiates to the back with nausea. 2. EGD showing mild antral gastritis 3. Hyperkinetic gallbladder PLAN: -Recommend outpatient laparoscopic cholecystectomy -Advanced diet to full liquids -Continue cardiac workup -Continue supportive care Physician Intervention Nurse note has been reviewed by physician. Signing provider agrees with the documented findings, assessment, and plan of care. Objective - Vital Signs Vital signs: Vital Signs Temp 97.4 F L 02/28/21 13:52 Pulse 70 02/28/21 13:52 Resp 17 02/28/21 13:52 BP 130/95 02/28/21 13:52 Pulse Ox 98 02/28/21 01:42 Intake & Output 02/27/21 02/28/21 02/28/21 18:59 06:59 18:59 Intake Total 400 240 Output Total 0 Balance 400 240 Weight 108.862 kg Intake: IV 400 Oral 240 Output: Stool 0 Other: Voiding Method Toilet Urinal # Voids 2 3 1 - Labs CBC & Chem 7: 02/28/21 06:06 02/28/21 06:06 Labs: Abnormal Lab Results - Last 24 Hours (Table) 02/28/21 Range/Units 06:06 Sodium 136 L (137-145) mmol/L BUN 22 H (9-20) mg/dL Glucose 62 L (74-99) mg/dL
[2021-02-28] MEDS: FUROSEMIDE 20 MG TAB PO SCH (15:50)
[2021-02-28] MEDS: HEPARIN SODIUM,PORCINE/PF 5,000 UNIT/0.5 ML SYRINGE SQ SCH ×2 (15:50→21:33)
[2021-02-28] MEDS: ATORVASTATIN 20 MG TAB PO SCH (20:39)
[2021-02-28] MEDS: SODIUM CHLORIDE 0.9% 1,000 ML in EMPTY BAG 1 BAG IV SCH (23:35)
[2021-03-01] MEDS: MORPHINE SULFATE 4 MG/ML SYRINGE IV PRN ×2 (03:10→07:39)
[2021-03-01] MEDS: FUROSEMIDE 20 MG TAB PO SCH ×2 (04:34→16:01)
[2021-03-01] MEDS: SODIUM CHLORIDE 0.9% 1,000 ML in EMPTY BAG 1 BAG IV SCH (04:37)
[2021-03-01] MEDS: SUCRALFATE 1 GM TAB PO SCH ×2 (05:28→13:53)
[2021-03-01] MEDS ORDERED: HEPARIN SODIUM,PORCINE 2,500 UNIT in SODIUM CHLORIDE 0.9% 250 ML IRRIGATION PRN (07:00)
[2021-03-01] MEDS ORDERED: HEPARIN SODIUM,PORCINE 10,000 UNIT in SODIUM CHLORIDE 0.9% 1,000 ML IRRIGATION PRN (07:00)
[2021-03-01] MEDS ORDERED: ATORVASTATIN 80 MG TAB PO ONE (07:00)
[2021-03-01] MEDS ORDERED: ASPIRIN 325 MG TAB PO ONE (07:00)
[2021-03-01] MEDS: ASPIRIN 81 MG PO SCH ×2 (07:39→07:41)
[2021-03-01] MEDS: lisinopriL 10 MG TAB PO SCH (07:39)
[2021-03-01] MEDS: LIDOCAINE VISCOUS 2% 15 ML CUP MUCOUS MEM SCH (07:40)
[2021-03-01] MEDS: PANTOPRAZOLE 40 MG/10 ML VIAL IVP SCH (07:40)
[2021-03-01] MEDS: METOPROLOL TARTRATE 25 MG TAB PO SCH (07:40)
[2021-03-01] MEDS: HEPARIN SODIUM,PORCINE/PF 5,000 UNIT/0.5 ML SYRINGE SQ SCH (07:40)
[2021-03-01] MEDS: MAG HYDROX/AL HYDROX/SIMETH 30 ML CUP PO SCH ×2 (07:40→13:53)
[2021-03-01 08:00] LABS: Glucose,Whole Blood 88 mg/dL (75-99)
[2021-03-01] MEDS ORDERED: IV FLUID CONTINUATION 1,000 ML IV ONE (09:52)
[2021-03-01] MEDS ORDERED: fentaNYL (PF) 50 MCG/ML 2 ML AMP IV ONE (10:10)
[2021-03-01] MEDS: MIDAZOLAM 2 MG/2 ML VIAL IV ONE ×2 (10:11→10:27)
[2021-03-01] MEDS ORDERED: LIDOCAINE 1% INJ 10MG/ML (20 ML MDV) SQ ONE (10:12)
[2021-03-01] MEDS ORDERED: VERAPAMIL SYRINGE (5 MG/10 ML) INTRAARTER ONE (10:16)
[2021-03-01] MEDS ORDERED: HEPARIN SODIUM 1,000 UN/ML (10ML VL) IV ONE (10:19)
[2021-03-01] MEDS ORDERED: IOPAMIDOL-370 125ML BTL INJ ONE (10:30)
[2021-03-01] MEDS ORDERED: RX INFO: IV CONTRAST WAS GIVEN 1 EACH MISC MISCELLANE PRN (10:34)
[2021-03-01 11:39] LABS: African American GFR (CKD) 80.8 (60.0-200.0); Anion Gap 10.4 mmol/L (4.00-12.00); BUN/Creat Ratio 13.44 Ratio (12.00-20.00); Blood Urea Nitrogen 16.4 mg/dL (9.0-27.0); Calcium 8.6 mg/dL (8.7-10.3); Carbon Dioxide 26.2 mmol/L (21.6-31.8); Non-African American GFR(CKD) 69.7 (60.0-200.0); Potassium 4.3 mmol/L (3.5-5.5)
--- NOTE | 2021-03-01 14:00 | P.PN ---
Subjective Progress Note Date: 03/01/21 CHIEF COMPLAINT: Abdominal pain HISTORY OF PRESENT ILLNESS: Surgical service following regards to patient's abdominal pain. Patient had EGD completed which showed mild antral gastritis. He had HIDA scan completed this morning which showed an EF of 84% which is a hyperkinetic gallbladder. Patient still reports some right upper quadrant abdominal pain. He is asking for more to eat. He denies any nausea or vomiting. Patient underwent heart catheterization today. Per nursing staff heart showed no blockage. Echo showed an EF of 20-25%. He is followed by cardiology. Patient transitioned to oral Lasix. Afebrile. PHYSICAL EXAM: VITAL SIGNS: Reviewed. GENERAL: Well-developed in no acute distress. HEENT: No sclera icterus. Extraocular movements grossly intact. Moist buccal mucosa. Head is atraumatic, normocephalic. ABDOMEN: Soft. Nondistended. Tenderness with palpation of right upper quadrant NEUROLOGIC: Alert and oriented. Cranial nerves II through XII grossly intact. ASSESSMENT: 1. Right upper quadrant and epigastric abdominal pain that radiates to the back with nausea. 2. EGD showing mild antral gastritis 3. Hyperkinetic gallbladder PLAN: -Recommend conservative management of hyperkinetic gallbladder. Patient has poor cardiac history with EF of 20% . No plan for surgical intervention at this time. -Patient can be discharge from surgical standpoint when medically cleared -Advanced diet to low-fat -Continue supportive care Physician General Scrap Worker note has been reviewed by physician. Signing provider agrees with the documented findings, assessment, and plan of care. Objective - Vital Signs Vital signs: Vital Signs Temp 97.6 F 03/01/21 10:45 Pulse 74 03/01/21 12:00 Resp 20 03/01/21 07:31 BP 148/97 03/01/21 12:00 Pulse Ox 97 03/01/21 12:00 Intake & Output 02/28/21 03/01/21 03/01/21 18:59 06:59 18:59 Intake Total 360 100 Output Total 0 0 Balance 360 0 100 Weight 111.8 kg Intake: IV 100 Oral 360 Output: Stool 0 0 Other: Voiding Method Toilet Toilet # Voids 1 1 - Labs CBC & Chem 7: 02/28/21 06:06 03/01/21 06:33 Labs: Abnormal Lab Results - Last 24 Hours (Table) 03/01/21 Range/Units 06:33 Calcium 8.6 L (8.7-10.3) mg/dL
[2021-03-01 14:46] VITALS: BP 136/90; RESP 21; TEMP 97.4
[2021-03-01 14:55] VITALS: PULSE 75
--- NOTE | 2021-03-01 16:48 | P.DS ---
Providers Date of admission: 02/27/21 18:54 Expected date of discharge: 03/01/21 Attending physician: Lesa Nixon MD Consults: 02/26/21 12:15 Consult Physician Routine Consulting Provider: Hi Mina Consult Reason/Comments: epigastric pain, possible ulcer Do you want consulting provider notified?: Yes 02/26/21 15:50 Consult Physician Routine Consulting Provider: Vahid Lobo Consult Reason/Comments: bilateral pleural effusions, please evaluate Do you want consulting provider notified?: Yes 02/26/21 16:19 Consult Physician Routine Consulting Provider: Jeferson Courtney Consult Reason/Comments: chest pain Do you want consulting provider notified?: Yes 02/26/21 19:32 Consult Physician Routine Consulting Provider: Lebron Yanez Consult Reason/Comments: Patient has previous history of psychiatric disorder on no meds now Do you want consulting provider notified?: Yes Primary care physician: Stated None Hospital Course: The patient is a 50 years old male with a PMH of polysubstance abuse, hypertension, psychiatric diagnoses of bipolar disorder and schizophrenia. Previously has been seen in the hospital for depression and suicidal ideation, also documented in his past medical history is chronic chest pain. At that time his chest pain was noted to be of chronic nature and had been going on for last many years. Patient also has history of atrial fibrillation per electronic medical records but currently he is not on any regular home medications. Patient presented with progressively worsening epigastric/right upper quadrant pain, apparently this had been going on for the prior 4 days and very unusual for him as he had no such pain before in the past. He also reported gradually worsening shortness of breath along lower extremity bilateral swelling. CT abdomen and pelvis negative for any acute findings, CTA chest was done which showed moderate bilateral pleural effusion. Patient was admitted for possible gastritis with epigastric tenderness. Patient had an EGD that was unremarkable. Patient had an echocardiogram that showed an EF of 20-25%. Cardiology was consulted and the patient was scheduled for left heart catheterization which was performed on 03/01 with no significant coronary artery disease noted. The patient was seen and examined on the day of discharge at the bedside. He reported significant improvement in his chest epigastric discomfort, currently rate is a 1 out of 10. He further reported mild right upper quadrant abdominal pain. Denied fever, chills, nausea, vomiting, diarrhea. The patient was cleared for discharge by cardiology and surgery service. Physical Examination General: Non-toxic, in no acute distress, appears stated age, obese HEENT: NC/AT, anicteric sclerae, moist conjunctiva, no lid-lag, PERRLA Cardiovascular: S1/S2 wnl, no murmurs, rubs, or gallops Lungs: Clear to auscultation, normal respiratory effort, no accessory muscle use Abdominal: Soft, non-tender, non-distended, no guarding, rebound, or rigidity Skin: Warm, dry Extremities: No edema or contractures Psychiatric: Alert and oriented to person, place and time, appropriate affect Neuro: CN II-XII grossly intact, Strength 5/5 in all 4 extremities, Speech intact, Sensation to light touch grossly intact throughout Discharge diagnosis: Newly diagnosed systolic CHF, hyperkinetic gallbladder, hypertension, schizophrenia, bipolar disorder A total of 40 minutes of time were spent preparing this complex discharge summary. Patient Condition at Discharge: Stable Plan - Discharge Summary Discharge Rx Participant: No New Discharge Prescriptions: New Aspirin 81 mg PO DAILY #30 tab Sucralfate [Carafate] 1 gm PO AC-TID #30 tab Furosemide [Lasix] 20 mg PO BID@0900,1600 #30 tab Atorvastatin [Lipitor] 20 mg PO HS #30 tab lisinopriL [Zestril] 10 mg PO DAILY #30 tab Metoprolol Tartrate [Lopressor] 25 mg PO BID #30 tab Discharge Medication List Aspirin 81 mg PO DAILY #30 tab 03/01/21 [Rx] Atorvastatin [Lipitor] 20 mg PO HS #30 tab 03/01/21 [Rx] Furosemide [Lasix] 20 mg PO BID@0900,1600 #30 tab 03/01/21 [Rx] Metoprolol Tartrate [Lopressor] 25 mg PO BID #30 tab 03/01/21 [Rx] Sucralfate [Carafate] 1 gm PO AC-TID #30 tab 03/01/21 [Rx] lisinopriL [Zestril] 10 mg PO DAILY #30 tab 03/01/21 [Rx] Follow up Appointment(s)/Referral(s): Chanel Jimenez MD [STAFF PHYSICIAN] - 10 Days None,Stated [Primary Care Provider] - 1-2 days Hi Mina MD [STAFF PHYSICIAN] - 1 Week Discharge Disposition: HOME SELF-CARE
== END 2021-03-01 17:23 | disposition home or self-care (01) | DRG 287 ==
LOC: EC 15:52 → 6NMEDSUR 21:05 → OBSVTOIN 02-27 18:54
PROVIDERS: ADMIT Internal Medicine; ATTEND Internal Medicine
PROC: 0DB78ZX Excision of Stomach, Pylorus, Via Natural or Artificial Opening Endoscopic, Diagnostic (ICD-10-PCS; principal; 2021-02-27 09:30)
PROC: 4A023N7 Measurement of Cardiac Sampling and Pressure, Left Heart, Percutaneous Approach (ICD-10-PCS; 2021-03-01)
PROC: B2111ZZ Fluoroscopy of Multiple Coronary Arteries using Low Osmolar Contrast (ICD-10-PCS; 2021-03-01)
DX: I11.0 Hypertensive heart disease with heart failure (principal); R45.851 Suicidal ideations; J98.11 Atelectasis; I50.23 Acute on chronic systolic (congestive) heart failure; K29.70 Gastritis, unspecified, without bleeding; Z20.822 Contact with and (suspected) exposure to COVID-19; I27.20 Pulmonary hypertension, unspecified; K76.0 Fatty (change of) liver, not elsewhere classified; F31.9 Bipolar disorder, unspecified; J44.9 Chronic obstructive pulmonary disease, unspecified; K82.8 Other specified diseases of gallbladder; I42.9 Cardiomyopathy, unspecified; I48.0 Paroxysmal atrial fibrillation; R10.11 Right upper quadrant pain; I08.3 Combined rheumatic disorders of mitral, aortic and tricuspid valves; G62.9 Polyneuropathy, unspecified; E78.5 Hyperlipidemia, unspecified; R00.0 Tachycardia, unspecified; F41.9 Anxiety disorder, unspecified; G89.29 Other chronic pain; F20.9 Schizophrenia, unspecified; F12.10 Cannabis abuse, uncomplicated; R01.1 Cardiac murmur, unspecified; M79.89 Other specified soft tissue disorders; F17.210 Nicotine dependence, cigarettes, uncomplicated; Z87.442 Personal history of urinary calculi; Z87.01 Personal history of pneumonia (recurrent); Z86.14 Personal history of Methicillin resistant Staphylococcus aureus infection; Z90.49 Acquired absence of other specified parts of digestive tract; Z71.6 Tobacco abuse counseling; Z99.81 Dependence on supplemental oxygen; Z88.6 Allergy status to analgesic agent; Z87.19 Personal history of other diseases of the digestive system
CPT/HCPCS: 36415; 43239; 71045; 71275; 74177; 76770; 78227; 80048; 80053; 80306; 81003; 82150; 82247; 82565; 83605; 83690; 83880; 84075; 84443; 84450; 84460; 84484; 84520; 85025; 85610; 85730; 87635; 88305; 93005; 93306; 93458; 96361; 96374; 96375; 96376; 99285

== ENCOUNTER 2021-03-15 22:14 | Emergency (ER) | payer OTHER ==
[2021-03-15 22:38] VITALS: TEMP 98.1
[2021-03-16] MEDS ORDERED: HYDROmorphone 0.5 MG/0.5 ML SYRINGE IVP STA (00:15)
[2021-03-16 01:36] LABS: Basophils # (A) 0.1 k/uL (0-0.2); Basophils % (A) 1 %; Eosinophils # (A) 0.2 k/uL (0-0.7); Eosinophils % (A) 2 %; HCT 44.4 % (39.0-53.0); HGB 14.4 gm/dL (13.0-17.5); Lymphocytes # (A) 1.9 k/uL (1.0-4.8); Lymphocytes % (A) 20 %; MCH 31.1 pg (25.0-35.0); MCHC 32.5 g/dL (31.0-37.0); MCV 95.7 fL (80.0-100.0); Mean Platelet Volume 8.3; Monocytes # (A) 0.8 k/uL (0-1.0); Monocytes % (A) 9 %; Neutrophils # (A) 6.2 k/uL (1.3-7.7); Neutrophils % (A) 67 %; Platelet Count 211 k/uL (150-450); RBC 4.63 m/uL (4.30-5.90); RDW 13.9 % (11.5-15.5); WBC 9.2 k/uL (3.8-10.6)
[2021-03-16 01:56] LABS: Appearance,Urine Clear (Clear); Bilirubin,Urine Negative (Negative); Blood,Urine Negative (Negative); Color,Urine Yellow; Glucose,Urine (UA) Negative (Negative); Hyaline Casts,Urine 1 /lpf (0-2); Ketones,Urine Negative (Negative); Leukocyte Esterase,Urine Negative (Negative); Mucus,Urine Rare /hpf; Nitrite,Urine Negative (Negative); Protein,Urine 1+ (Negative); RBC,Urine 1 /hpf (0-5); Specific Gravity,Urine 1.025 (1.001-1.035); Urobilinogen,Urine <2.0 mg/dL (<2.0); WBC,Urine <1 /hpf (0-5)
[2021-03-16 01:57] LABS: ALT 39 U/L (4-49); AST 50 U/L (17-59); African American GFR (CKD) >90 (>60 ml/min/1.73 sqM); Alkaline Phosphatase 77 U/L (38-126); Amylase 37 U/L (30-110); Anion Gap 6 mmol/L; Blood Urea Nitrogen 23 mg/dL (9-20); Calcium 8.3 mg/dL (8.4-10.2); Carbon Dioxide 23 mmol/L (22-30); Chloride 108 mmol/L (98-107); Glucose 109 mg/dL (74-99); Lipase 64 U/L (23-300); Non-African American GFR(CKD) 81 (>60 ml/min/1.73 sqM); Potassium 3.6 mmol/L (3.5-5.1); Sodium 137 mmol/L (137-145); Total Bilirubin 0.5 mg/dL (0.2-1.3); Total Protein 5.6 g/dL (6.3-8.2)
--- NOTE | 2021-03-16 02:21 | ED ---
General Adult HPI - General Chief complaint: Abdominal Pain Stated complaint: Abdominal Pain Time Seen by Provider: 03/15/21 22:58 Source: patient Mode of arrival: ambulatory Limitations: no limitations - History of Present Illness Initial comments: 50-year-old male presents to the emergency room for a chief complaint of abdominal pain. Patient has had upper abdominal pain for the past several weeks. Patient states he was diagnosed with gall bladder problems. He was admitted to the hospital and discharged home to follow up outpatient with his surgeon. Patient states she was supposed to have his appointment yesterday but he missed it. Therefore he rescheduled it for next week. However he said they told him if the pain worsens to go to the hospital. He states that since the pain was bad tonight he decided to come in. Patient denies nausea vomiting diarrhea. Denies fevers or chills.Patient has no other complaints at this time including shortness of breath, chest pain, nausea or vomiting, headache, or visual changes. - Related Data Previous Rx's Medication Instructions Recorded Aspirin 81 mg PO DAILY #30 tab 03/01/21 Atorvastatin [Lipitor] 20 mg PO HS #30 tab 03/01/21 Furosemide [Lasix] 20 mg PO BID@0900,1600 #30 tab 03/01/21 Metoprolol Tartrate [Lopressor] 25 mg PO BID #30 tab 03/01/21 Sucralfate [Carafate] 1 gm PO AC-TID #30 tab 03/01/21 lisinopriL [Zestril] 10 mg PO DAILY #30 tab 03/01/21 Allergies Allergy/AdvReac Type Severity Reaction Status Date / Time ibuprofen [From Motrin] AdvReac Nausea & Verified 03/15/21 22:36 Vomiting simvastatin [From Zocor] AdvReac Dizziness Verified 03/15/21 22:36 Review of Systems ROS Statement: Those systems with pertinent positive or pertinent negative responses have been documented in the HPI. ROS Other: All systems not noted in ROS Statement are negative. 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 HTN the last 10 yrs Stopped taking meds 5 yrs ago. COPD due to tobacco use. MArijuna use 3 -4 times a week - Smoke it History of Any Multi-Drug Resistant Organisms: None Reported, MRSA Date of last positivie culture/infection: 04/10/18 MDRO Source:: TOE Past Surgical History: Heart Catheterization, Orthopedic Surgery Additional Past Surgical History / Comment(s): 03/14/18 Cardiac cath-normal coronaries, L shoulder rotator cuff repair x2, cervical injection. Past Anesthesia/Blood Transfusion Reactions: No Reported Reaction Past Psychological History: Anxiety, Bipolar, Depression, Schizophrenia Smoking Status: Current every day smoker Past Alcohol Use History: None Reported Past Drug Use History: Marijuana, Prescription Drug Abuse - Past Family History Father Family Medical History: Myocardial Infarction (SD) Additional Family Medical History / Comment(s): mi at age 35, still living Mother Family Medical History: Myocardial Infarction (SD) Additional Family Medical History / Comment(s): Mother has had at least one SD- pt unsure at what age. He has not had much contact with his mother since he was 17 yrs old. General Exam Limitations: no limitations General appearance: alert, in no apparent distress Head exam: Present: atraumatic Eye exam: Present: normal appearance, PERRL, EOMI. Absent: scleral icterus, conjunctival injection ENT exam: Present: normal exam, mucous membranes moist Neck exam: Present: normal inspection, full ROM Respiratory exam: Present: normal lung sounds bilaterally. Absent: respiratory distress, wheezes Cardiovascular Exam: Present: regular rate, normal rhythm, normal heart sounds GI/Abdominal exam: Present: soft, normal bowel sounds. Absent: distended, tenderness Course Vital Signs 03/15/21 22:36 Temperature 98.1 F Pulse Rate 103 H Respiratory 20 Rate Blood Pressure 154/102 O2 Sat by Pulse 96 Oximetry Medical Decision Making - Medical Decision Making Vitals are stable. HPI physical exam as documented. No abdominal tenderness. CBC CMP unremarkable. Urinalysis is negative for infection. At this time patient is stable for outpatient follow-up. He will return here for any worsening symptoms. Patient also is complaining of dysuria. STDs are pending. - Lab Data Result diagrams: 03/16/21 00:42 03/16/21 00:42 Lab Results 03/16/21 03/16/21 03/16/21 Range/Units 00:42 00:42 00:42 WBC 9.2 (3.8-10.6) k/uL RBC 4.63 (4.30-5.90) m/uL Hgb 14.4 (13.0-17.5) gm/dL Hct 44.4 (39.0-53.0) % MCV 95.7 (80.0-100.0) fL MCH 31.1 (25.0-35.0) pg MCHC 32.5 (31.0-37.0) g/dL RDW 13.9 (11.5-15.5) % Plt Count 211 (150-450) k/uL MPV 8.3 Neutrophils % 67 % Lymphocytes % 20 % Monocytes % 9 % Eosinophils % 2 % Basophils % 1 % Neutrophils # 6.2 (1.3-7.7) k/uL Lymphocytes # 1.9 (1.0-4.8) k/uL Monocytes # 0.8 (0-1.0) k/uL Eosinophils # 0.2 (0-0.7) k/uL Basophils # 0.1 (0-0.2) k/uL Sodium 137 (137-145) mmol/L Potassium 3.6 (3.5-5.1) mmol/L Chloride 108 H (98-107) mmol/L Carbon Dioxide 23 (22-30) mmol/L Anion Gap 6 mmol/L BUN 23 H (9-20) mg/dL Creatinine 1.08 (0.66-1.25) mg/dL Est GFR (CKD-EPI)AfAm >90 (>60 ml/min/1.73 sqM) Est GFR (CKD-EPI)NonAf 81 (>60 ml/min/1.73 sqM) Glucose 109 H (74-99) mg/dL Calcium 8.3 L (8.4-10.2) mg/dL Total Bilirubin 0.5 (0.2-1.3) mg/dL AST 50 (17-59) U/L ALT 39 (4-49) U/L Alkaline Phosphatase 77 (38-126) U/L Total Protein 5.6 L (6.3-8.2) g/dL Albumin 3.0 L (3.5-5.0) g/dL Amylase 37 (30-110) U/L Lipase 64 (23-300) U/L Urine Color Yellow Urine Appearance Clear (Clear) Urine pH 6.0 (5.0-8.0) Ur Specific [place] 1.025 (1.001-1.035) Urine Protein 1+ H (Negative) Urine Glucose (UA) Negative (Negative) Urine Ketones Negative (Negative) Urine Blood Negative (Negative) Urine Nitrite Negative (Negative) Urine Bilirubin Negative (Negative) Urine Urobilinogen <2.0 (<2.0) mg/dL Ur Leukocyte Esterase Negative (Negative) Urine RBC 1 (0-5) /hpf Urine WBC <1 (0-5) /hpf Hyaline Casts 1 (0-2) /lpf Urine Mucus Rare H (None) /hpf Disposition Clinical Impression: Abdominal pain, Dysuria Disposition: HOME SELF-CARE Condition: Good Instructions (If sedation given, give patient instructions): Abdominal Pain (ED) Additional Instructions: Please follow up with your surgeon as scheduled appointment. Return to the [facility] room for any worsening symptoms. Is patient prescribed a controlled substance at d/c from ED?: No Referrals: Hi Mina MD [STAFF PHYSICIAN] - 1-2 days Time of Disposition: 02:27
[2021-03-16 03:43] VITALS: RESP 18
[2021-03-16 03:46] VITALS: BP 151/90; PULSE 90
[2021-03-17 13:44] LABS: C. trachomatis,PCR Negative (Neg,Equiv); Chlamydia trachomatis Source Urine; N. gonorrhoeae,PCR Negative (Neg,Equiv); Neisseria Source Urine
== END 2021-03-16 03:19 | disposition home or self-care (01) ==
LOC: EC 22:14
DX: R30.0 Dysuria (principal); R10.10 Upper abdominal pain, unspecified; J44.9 Chronic obstructive pulmonary disease, unspecified; I10 Essential (primary) hypertension; I48.91 Unspecified atrial fibrillation; F17.290 Nicotine dependence, other tobacco product, uncomplicated; Z88.6 Allergy status to analgesic agent; Z88.8 Allergy status to other drugs, medicaments and biological substances; Z95.9 Presence of cardiac and vascular implant and graft, unspecified
CPT/HCPCS: 36415; 80053; 82150; 83690; 85025; 81001; 87491; 87591; 99284; 96374; J1170; 87661

== ENCOUNTER 2021-03-17 10:18 | Observation (INO) | payer OTHER ==
[2021-03-17 10:56] LABS: Basophils # (A) 0.1 k/uL (0-0.2); Basophils % (A) 1 %; Eosinophils # (A) 0.2 k/uL (0-0.7); Eosinophils % (A) 2 %; HCT 46.9 % (39.0-53.0); HGB 15.1 gm/dL (13.0-17.5); Lymphocytes # (A) 1.2 k/uL (1.0-4.8); Lymphocytes % (A) 14 %; MCH 30.7 pg (25.0-35.0); MCHC 32.2 g/dL (31.0-37.0); MCV 95.5 fL (80.0-100.0); Mean Platelet Volume 7.8; Monocytes # (A) 0.6 k/uL (0-1.0); Monocytes % (A) 6 %; Neutrophils # (A) 6.7 k/uL (1.3-7.7); Neutrophils % (A) 76 %; Platelet Count 208 k/uL (150-450); RBC 4.92 m/uL (4.30-5.90); RDW 13.9 % (11.5-15.5); WBC 8.8 k/uL (3.8-10.6)
[2021-03-17 11:08] LABS: ALT 51 U/L (4-49); AST 69 U/L (17-59); African American GFR (CKD) >90 (>60 ml/min/1.73 sqM); Albumin 3.5 g/dL (3.5-5.0); Alkaline Phosphatase 96 U/L (38-126); Amylase 49 U/L (30-110); Anion Gap 5 mmol/L; Blood Urea Nitrogen 17 mg/dL (9-20); Carbon Dioxide 28 mmol/L (22-30); Chloride 106 mmol/L (98-107); Glucose 111 mg/dL (74-99); Lipase 59 U/L (23-300); Non-African American GFR(CKD) >90 (>60 ml/min/1.73 sqM); Potassium 3.8 mmol/L (3.5-5.1); Sodium 139 mmol/L (137-145); Total Bilirubin 1.2 mg/dL (0.2-1.3); Total Protein 6.4 g/dL (6.3-8.2)
[2021-03-17] MEDS ORDERED: KETOROLAC 15 MG/ML 1 ML VIAL IVP STA (11:52)
[2021-03-17] MEDS ORDERED: SODIUM CHLORIDE 0.9% 500 ML 500 ML IV STA (11:52)
[2021-03-17] MEDS ORDERED: ONDANSETRON 4 MG/2 ML VIAL IVP STA (11:52)
--- NOTE | 2021-03-17 12:08 | ED ---
General Adult HPI - General Chief complaint: Abdominal Pain Stated complaint: Chest Pain/Abd Pain/Leg Swelling Post Heart Op Time Seen by Provider: 03/17/21 10:20 Source: patient, family, RN notes reviewed, old records reviewed Mode of arrival: wheelchair Limitations: no limitations - History of Present Illness Initial comments: This is a 50-year-old male comes in with complaint of right sided abdominal pain. Patient states he was vomiting quite a bit last night. Patient also complains of chronic edema to both feet. Patient states that this abdominal pain is been ongoing for quite when he was told that he needs his gallbladder out but he has not yet made arrangements. Patient also states the edema is secondary to congestive heart failure which she's had for quite a while. Patient states he was here a day ago with similar symptoms and discharged home he is back because he would like to see if he get his gallbladder out. Patient denies any fever chills per patient denies any chest pain or difficulty breathing. - Related Data Home Medications Medication Instructions Recorded Confirmed Aspirin EC [Ecotrin Low Dose] 81 mg PO DAILY 03/17/21 03/22/21 Previous Rx's Medication Instructions Recorded Atorvastatin [Lipitor] 20 mg PO HS #30 tab 03/01/21 Metoprolol Tartrate [Lopressor] 25 mg PO BID #30 tab 03/01/21 Sucralfate [Carafate] 1 gm PO AC-TID #30 tab 03/01/21 lisinopriL [Zestril] 10 mg PO DAILY #30 tab 03/01/21 Furosemide [Lasix] 40 mg PO BID #60 tablet 03/19/21 Spironolactone [Aldactone] 25 mg PO DAILY #30 tab 03/19/21 Allergies Allergy/AdvReac Type Severity Reaction Status Date / Time ibuprofen [From Motrin] AdvReac Nausea & Verified 03/22/21 06:43 Vomiting simvastatin [From Zocor] AdvReac Dizziness Verified 03/22/21 06:43 Review of Systems ROS Statement: Those systems with pertinent positive or pertinent negative responses have been documented in the HPI. ROS Other: All systems not noted in ROS Statement are negative. Past Medical History Past Medical History: Atrial Fibrillation, COPD, Hyperlipidemia, Hypertension, Pneumonia Additional Past Medical History / Comment(s): Other HX; Costochondritis, chronic pain, chronic low back pain with bilateral sciatica, neuropathy bilateral hands/feet, migraines, kidney stones, past partial small bowel obstruction. HTN the last 10 yrs Stopped taking meds 5 yrs ago. COPD due to tobacco use. MArijuna use 3 -4 times a week - Smoke it History of Any Multi-Drug Resistant Organisms: None Reported, MRSA Date of last positivie culture/infection: 04/10/18 MDRO Source:: TOE Past Surgical History: Heart Catheterization, Orthopedic Surgery Additional Past Surgical History / Comment(s): 03/14/18 Cardiac cath-normal coronaries, L shoulder rotator cuff repair x2, cervical injection. Past Anesthesia/Blood Transfusion Reactions: No Reported Reaction Past Psychological History: Anxiety, Bipolar, Depression, Schizophrenia Smoking Status: Current every day smoker Past Alcohol Use History: None Reported Past Drug Use History: Marijuana, Prescription Drug Abuse - Past Family History Father Family Medical History: Myocardial Infarction (NC) Additional Family Medical History / Comment(s): mi at age 35, still living Mother Family Medical History: Myocardial Infarction (NC) Additional Family Medical History / Comment(s): Mother has had at least one NC- pt unsure at what age. He has not had much contact with his mother since he was 17 yrs old. General Exam - General Exam Comments Initial Comments: GENERAL: Patient is well-developed and well-nourished. Patient is nontoxic and well- hydrated and is in mild distress. ENT: Neck is soft and supple. No significant lymphadenopathy is noted. Oropharynx is clear. Moist mucous membranes. Neck has full range of motion without eliciting any pain. EYES: The sclera were anicteric and conjunctiva were pink and moist. Extraocular movements were intact and pupils were equal round and reactive to light. Eyeli ds were unremarkable. PULMONARY: Unlabored respirations. Good breath sounds bilaterally. No audible rales rhonchi or wheezing was noted. CARDIOVASCULAR: There is a regular rate and rhythm without any murmurs gallops or rubs. ABDOMEN: Right lower quadrant abdominal pain SKIN: Skin is clear with no lesions or rashes and otherwise unremarkable. NEUROLOGIC: Patient is alert and oriented x3. Cranial nerves II through XII are grossly intact. Motor and sensory are also intact. Normal speech, volume and content. Symmetrical smile. MUSCULOSKELETAL: Normal extremities with adequate strength and full range of motion. 2+ edema bilaterally LYMPHATICS: No significant lymphadenopathy is noted PSYCHIATRIC: Normal psychiatric evaluation. Limitations: no limitations Course Vital Signs 03/17/21 03/17/21 03/17/21 10:19 12:52 14:07 Temperature 98.3 F Pulse Rate 109 H 98 101 H Pulse Rate [ Right Sitting Pulse Oximetery ] Respiratory 18 18 18 Rate Blood Pressure 169/91 155/117 155/115 Blood Pressure [Right Arm Supine] O2 Sat by Pulse 100 100 100 Oximetry 03/17/21 03/17/21 03/17/21 14:31 17:57 19:34 Temperature 98.7 F Pulse Rate 110 H 105 H Pulse Rate [ 110 H Right Sitting Pulse Oximetery ] Respiratory 18 18 18 Rate Blood Pressure 153/110 150/99 Blood Pressure 152/107 [Right Arm Supine] O2 Sat by Pulse 98 98 99 Oximetry 03/17/21 21:23 Temperature Pulse Rate 110 H Pulse Rate [ Right Sitting Pulse Oximetery ] Respiratory 18 Rate Blood Pressure 142/98 Blood Pressure [Right Arm Supine] O2 Sat by Pulse 97 Oximetry Medical Decision Making - Medical Decision Making EKG shows sinus tachycardia at 108 bpm [place] interval 270 QRS is 88 QT interval 376 QTC is 513 per patient's EKG shows no ST segment elevation or depression. Chest x-ray shows minimal congestion. Patient received hydralazine for hypertension - Lab Data Result diagrams: 03/18/21 07:29 03/19/21 05:30 Lab Results 03/17/21 03/17/21 03/17/21 Range/Units 10:30 10:30 12:41 WBC 8.8 (3.8-10.6) k/uL RBC 4.92 (4.30-5.90) m/uL Hgb 15.1 (13.0-17.5) gm/dL Hct 46.9 (39.0-53.0) % MCV 95.5 (80.0-100.0) fL MCH 30.7 (25.0-35.0) pg MCHC 32.2 (31.0-37.0) g/dL RDW 13.9 (11.5-15.5) % Plt Count 208 (150-450) k/uL MPV 7.8 Neutrophils % 76 % Lymphocytes % 14 % Monocytes % 6 % Eosinophils % 2 % Basophils % 1 % Neutrophils # 6.7 (1.3-7.7) k/uL Lymphocytes # 1.2 (1.0-4.8) k/uL Monocytes # 0.6 (0-1.0) k/uL Eosinophils # 0.2 (0-0.7) k/uL Basophils # 0.1 (0-0.2) k/uL Sodium 139 (137-145) mmol/L Potassium 3.8 (3.5-5.1) mmol/L Chloride 106 (98-107) mmol/L Carbon Dioxide 28 (22-30) mmol/L Anion Gap 5 mmol/L BUN 17 (9-20) mg/dL Creatinine 0.98 (0.66-1.25) mg/dL Est GFR (CKD-EPI)AfAm >90 (>60 ml/min/1.73 sqM) Est GFR (CKD-EPI)NonAf >90 (>60 ml/min/1.73 sqM) Glucose 111 H (74-99) mg/dL Calcium 9.0 (8.4-10.2) mg/dL Total Bilirubin 1.2 (0.2-1.3) mg/dL AST 69 H (17-59) U/L ALT 51 H (4-49) U/L Alkaline Phosphatase 96 (38-126) U/L NT-Pro-B Natriuret Pep pg/mL Total Protein 6.4 (6.3-8.2) g/dL Albumin 3.5 (3.5-5.0) g/dL Amylase 49 (30-110) U/L Lipase 59 (23-300) U/L Urine Color Yellow Urine Appearance Turbid (Clear) Urine pH 7.5 (5.0-8.0) Ur Specific [place] 1.016 (1.001-1.035) Urine Protein Trace H (Negative) Urine Glucose (UA) Negative (Negative) Urine Ketones Negative (Negative) Urine Blood Negative (Negative) Urine Nitrite Negative (Negative) Urine Bilirubin Negative (Negative) Urine Urobilinogen <2.0 (<2.0) mg/dL Ur Leukocyte Esterase Negative (Negative) Amorphous Sediment Few H (None) /hpf Urine Mucus Rare H (None) /hpf 03/17/21 03/17/21 03/17/21 Range/Units 12:41 12:41 12:41 WBC 8.1 (3.8-10.6) k/uL RBC 4.73 (4.30-5.90) m/uL Hgb 14.7 (13.0-17.5) gm/dL Hct 45.1 (39.0-53.0) % MCV 95.2 (80.0-100.0) fL MCH 31.1 (25.0-35.0) pg MCHC 32.6 (31.0-37.0) g/dL RDW 13.9 (11.5-15.5) % Plt Count 205 (150-450) k/uL MPV 8.2 Neutrophils % 73 % Lymphocytes % 15 % Monocytes % 7 % Eosinophils % 3 % Basophils % 1 % Neutrophils # 5.9 (1.3-7.7) k/uL Lymphocytes # 1.2 (1.0-4.8) k/uL Monocytes # 0.6 (0-1.0) k/uL Eosinophils # 0.2 (0-0.7) k/uL Basophils # 0.1 (0-0.2) k/uL Sodium 138 (137-145) mmol/L Potassium 3.8 (3.5-5.1) mmol/L Chloride 109 H (98-107) mmol/L Carbon Dioxide 23 (22-30) mmol/L Anion Gap 6 mmol/L BUN 17 (9-20) mg/dL Creatinine 0.88 (0.66-1.25) mg/dL Est GFR (CKD-EPI)AfAm >90 (>60 ml/min/1.73 sqM) Est GFR (CKD-EPI)NonAf >90 (>60 ml/min/1.73 sqM) Glucose 92 (74-99) mg/dL Calcium 8.8 (8.4-10.2) mg/dL Total Bilirubin 1.2 (0.2-1.3) mg/dL AST 60 H (17-59) U/L ALT 44 (4-49) U/L Alkaline Phosphatase 82 (38-126) U/L NT-Pro-B Natriuret Pep 2530 pg/mL Total Protein 5.8 L (6.3-8.2) g/dL Albumin 3.0 L (3.5-5.0) g/dL Amylase 43 (30-110) U/L Lipase 59 (23-300) U/L Urine Color Urine Appearance (Clear) Urine pH (5.0-8.0) Ur Specific [place] (1.001-1.035) Urine Protein (Negative) Urine Glucose (UA) (Negative) Urine Ketones (Negative) Urine Blood (Negative) Urine Nitrite (Negative) Urine Bilirubin (Negative) Urine Urobilinogen (<2.0) mg/dL Ur Leukocyte Esterase (Negative) Amorphous Sediment (None) /hpf Urine Mucus (None) /hpf Disposition Clinical Impression: Hypertensive urgency, Pedal edema, Abdominal pain Disposition: ADMITTED IP TO THIS HOSP
[2021-03-17 13:03] LABS: Basophils # (A) 0.1 k/uL (0-0.2); Basophils % (A) 1 %; Eosinophils # (A) 0.2 k/uL (0-0.7); Eosinophils % (A) 3 %; HCT 45.1 % (39.0-53.0); HGB 14.7 gm/dL (13.0-17.5); Lymphocytes # (A) 1.2 k/uL (1.0-4.8); Lymphocytes % (A) 15 %; MCH 31.1 pg (25.0-35.0); MCHC 32.6 g/dL (31.0-37.0); MCV 95.2 fL (80.0-100.0); Mean Platelet Volume 8.2; Monocytes # (A) 0.6 k/uL (0-1.0); Monocytes % (A) 7 %; Neutrophils # (A) 5.9 k/uL (1.3-7.7); Neutrophils % (A) 73 %; Platelet Count 205 k/uL (150-450); RBC 4.73 m/uL (4.30-5.90); RDW 13.9 % (11.5-15.5); WBC 8.1 k/uL (3.8-10.6)
[2021-03-17 13:13] LABS: ALT 44 U/L (4-49); AST 60 U/L (17-59); African American GFR (CKD) >90 (>60 ml/min/1.73 sqM); Alkaline Phosphatase 82 U/L (38-126); Amylase 43 U/L (30-110); Anion Gap 6 mmol/L; Blood Urea Nitrogen 17 mg/dL (9-20); Calcium 8.8 mg/dL (8.4-10.2); Carbon Dioxide 23 mmol/L (22-30); Chloride 109 mmol/L (98-107); Glucose 92 mg/dL (74-99); Lipase 59 U/L (23-300); Non-African American GFR(CKD) >90 (>60 ml/min/1.73 sqM); Potassium 3.8 mmol/L (3.5-5.1); Sodium 138 mmol/L (137-145); Total Bilirubin 1.2 mg/dL (0.2-1.3); Total Protein 5.8 g/dL (6.3-8.2)
--- NOTE | 2021-03-17 13:15 | XR ---
EXAMINATION TYPE: XR chest 2V DATE OF EXAM: 03/17/2021 COMPARISON: 02/28/2021 TECHNIQUE: PA and lateral views submitted. HISTORY: Shortness of breath FINDINGS: The lungs are clear and there is no pneumothorax, pleural effusion, or focal pneumonia. Coarsened i nterstitium. Chronic appearing infarction of the distal left clavicle. IMPRESSION: 1. Correlate for interstitial pneumonitis, venous congestion or bronchitis. Chronic interstitial lung disease also the differential diagnosis.
[2021-03-17] MEDS: hydrALAZINE HCL 20 MG/ML 1 ML VIAL IM STA ×2 (14:02→14:41)
[2021-03-17] MEDS ORDERED: FUROSEMIDE 10 MG/ML 4 ML VIAL IV STA (14:09)
[2021-03-17] MEDS ORDERED: HYDROmorphone 0.5 MG/0.5 ML SYRINGE IVP STA ×2 (14:39→19:31)
[2021-03-17 14:42] LABS: Amorphous Sediment,Urine Few /hpf; Appearance,Urine Turbid (Clear); Bilirubin,Urine Negative (Negative); Blood,Urine Negative (Negative); Color,Urine Yellow; Glucose,Urine (UA) Negative (Negative); Ketones,Urine Negative (Negative); Leukocyte Esterase,Urine Negative (Negative); Mucus,Urine Rare /hpf; Nitrite,Urine Negative (Negative); PH, Urine 7.5 (5.0-8.0); Protein,Urine Trace (Negative); Specific Gravity,Urine 1.016 (1.001-1.035); Urobilinogen,Urine <2.0 mg/dL (<2.0)
--- NOTE | 2021-03-17 15:42 | P.HPIM ---
History of Present Illness H&P Date: 03/17/21 The patient is a 50-year-old male with a PMH of recently diagnosed severe systolic CHF, polysubstance abuse, hypertension, schizophrenia, and bipolar disorder who presents to the emergency room with complaints of scrotal and right lower quadrant pain and lower extremity swelling. The patient reports that he has been experiencing scrotal enlargement as well as the right lower quadrant pain for the past several months. reports it is intermittent, irritated of maximal intensity, initiating from the scrotum, with radiation to the right lower quadrant, aching in nature. The patient also reports bilateral lower extremity pitting edema, which has worsened since his discharge from the hospital on 03/01. During that hospitalization, the patient had presented for epigastric and abdominal pain and had undergone an endoscopy which was unremarkable along with a cardiac catheterization which revealed no significant coronary disease. An echocardiogram however had revealed severe systolic CHF with EF 20-25%. EKG in the emergency room revealed sinus tachycardia at 108 bpm with a prolonged QTC of 503 ms along with T-wave flattening in the inferior leads. Chest x-ray revealed venous congestion. Laboratory evaluation was notable for a proBNP of 2530. Review of systems: Pertinent positives and negatives as discussed in HPI, a complete review of systems was performed and all other systems are negative. Physical examination: General: non toxic, no distress, appears at stated age, obese Derm: no unusual rashes/lesions no unusual ecchymoses, warm, dry Head: atraumatic, normocephalic, symmetric Eyes: EOMI, no lid lag, anicteric sclera, pupils equal round reactive to light ENT: Nose and ears atraumatic, no thrush, no pharyngeal erythema Neck: No thyromegaly, no cervical lymphadenopathy, trachea midline, supple Mouth: no lip lesion, mucus membranes moist Cardiovascular: S1S2 reg, no murmur, positive posterior tibial pulse bilateral, 2+ bilateral lower extremity pitting edema, capillary refill less than 2 seconds Lungs: CTA bilateral, no rhonchi, no rales , no accessory muscle use Abdominal: soft, right lower quadrant tenderness to palpation, no guarding, no appreciable organomegaly, normal bowel sounds, scrotal enlargement without tenderness, induration, or erythema Ext: no gross muscle atrophy, muscle strength 5 out of 5 in all 4 extremities grossly, no contractures, Neuro: CN II-XI grossly intact, light touch intact all 4 extremities, finger to nose within normal limits, Psych: Alert, oriented, appropriate affect Assessment/plan Scrotal swelling -Consult urology -Scrotal US Systolic CHF exacerbation -Cardiology consult -Lasix IV -Monitor electrolytes -Daily weights, intake output DVT prophylaxis -Lovenox The patient is admitted with an anticipated greater than 2 midnight stay for evaluation of CHF exac CODE STATUS: Full Code Discussed with: patient Anticipated discharge date: 2-[address]: Home Past Medical History Past Medical History: Atrial Fibrillation, COPD, Hyperlipidemia, Hypertension, Pneumonia Additional Past Medical History / Comment(s): Other HX; Costochondritis, chronic pain, chronic low back pain with bilateral sciatica, neuropathy bilateral hands/feet, migraines, kidney stones, past partial small bowel obstruction. HTN the last 10 yrs Stopped taking meds 5 yrs ago. COPD due to tobacco use. MArijuna use 3 -4 times a week - Smoke it History of Any Multi-Drug Resistant Organisms: None Reported, MRSA Date of last positivie culture/infection: 04/10/18 MDRO Source:: TOE Past Surgical History: Heart Catheterization, Orthopedic Surgery Additional Past Surgical History / Comment(s): 03/14/18 Cardiac cath-normal coronaries, L shoulder rotator cuff repair x2, cervical injection. Past Anesthesia/Blood Transfusion Reactions: No Reported Reaction Past Psychological History: Anxiety, Bipolar, Depression, Schizophrenia Smoking Status: Current every day smoker Past Alcohol Use History: None Reported Past Drug Use History: Marijuana, Prescription Drug Abuse - Past Family History Father Family Medical History: Myocardial Infarction (NM) Additional Family Medical History / Comment(s): mi at age 35, still living Mother Family Medical History: Myocardial Infarction (NM) Additional Family Medical History / Comment(s): Mother has had at least one NM- pt unsure at what age. He has not had much contact with his mother since he was 17 yrs old. Medications and Allergies Home Medications Medication Instructions Recorded Confirmed Type Atorvastatin [Lipitor] 20 mg PO HS #30 tab 03/01/21 03/17/21 Rx Furosemide [Lasix] 20 mg PO BID@0900,1600 #30 tab 03/01/21 03/17/21 Rx Metoprolol Tartrate [Lopressor] 25 mg PO BID #30 tab 03/01/21 03/17/21 Rx Sucralfate [Carafate] 1 gm PO AC-TID #30 tab 03/01/21 03/17/21 Rx lisinopriL [Zestril] 10 mg PO DAILY #30 tab 03/01/21 03/17/21 Rx Aspirin EC [Ecotrin Low Dose] 81 mg PO DAILY 03/17/21 03/17/21 History Allergies Allergy/AdvReac Type Severity Reaction Status Date / Time ibuprofen [From Motrin] AdvReac Nausea & Verified 03/17/21 12:49 Vomiting simvastatin [From Zocor] AdvReac Dizziness Verified 03/17/21 12:49 Physical Exam Vitals: Vital Signs Temp Pulse Resp BP Pulse Ox 03/17/21 14:31 110 H 18 153/110 98 03/17/21 14:07 101 H 18 155/115 100 03/17/21 12:52 98 18 155/117 100 03/17/21 10:19 98.3 F 109 H 18 169/91 100 Intake and Output 03/17/21 03/17/21 03/17/21 06:59 14:59 22:59 Other: Weight 111.13 kg Results CBC & Chem 7: 03/17/21 12:41 03/17/21 12:41 Labs: Abnormal Lab Results - Last 24 Hours (Table) 03/17/21 03/17/21 03/17/21 Range/Units 10:30 12:41 12:41 Chloride 109 H (98-107) mmol/L Glucose 111 H (74-99) mg/dL AST 69 H 60 H (17-59) U/L ALT 51 H (4-49) U/L Total Protein 5.8 L (6.3-8.2) g/dL Albumin 3.0 L (3.5-5.0) g/dL Urine Protein Trace H (Negative) Amorphous Sediment Few H (None) /hpf Urine Mucus Rare H (None) /hpf
--- NOTE | 2021-03-17 16:55 | US ---
EXAMINATION TYPE: US scrotum with doppler. Grayscale and color Doppler Duplex imaging performed of suleman kidd scrotum. DATE OF EXAM: 03/17/2021 COMPARISON: 05/25/2018 CLINICAL HISTORY: swelling. edema bilateral testes, worse on the right EXAM MEASUREMENTS: TESTICLES: Right Testicle: 5.1 x 2.7 x 2.9 cm Left Testicle: 4.9 x 2.3 x 3.4 cm EPIDIDYMIS HEAD: Right Epididymis: 1.3 cm Left Epididymis: 1.4 cm Doppler performed to assess for testicular vascularity; good bilateral color flow and waveforms are s een. There is no evidence of testicular torsion. *technical limitations, patient unable to hold still, constantly fidgeting *cystic areas left epididymis = 0.5cm and 0.5cm Presence of hydroceles: small fluid collection medial to right testicle = 3.2cm Presence of varicoceles: prominent vessels posterior to left testicle IMPRESSION: There is left side varicocele. No testicular torsion or mass. Small epididymal cysts. Sma ll right-sided hydrocele. Left-sided varicocele appears slightly increased compared to old exam.
[2021-03-17] MEDS: FUROSEMIDE 10 MG/ML 4 ML VIAL IV SCH ×2 (17:42→23:22)
[2021-03-17] MEDS: SUCRALFATE 1 GM TAB PO SCH (17:42)
--- NOTE | 2021-03-17 17:48 | US ---
EXAMINATION TYPE: US abdomen APPY DATE OF EXAM: 03/17/2021 COMPARISON: CT CLINICAL HISTORY: RLQ US - pain. RLQ pain APPENDIX Appendix not visualized with certainty, lymph node visualized within RLQ/right groin= 1.2 cm AP IMPRESSION: Appendix not seen. No sign of thickened appendix. No free fluid.
[2021-03-17] MEDS: METOPROLOL TARTRATE 25 MG TAB PO SCH (21:27)
[2021-03-17] MEDS: ATORVASTATIN 20 MG TAB PO SCH (21:27)
[2021-03-18] MEDS: HYDROmorphone 0.5 MG/0.5 ML SYRINGE IVP PRN ×3 (00:55→12:45)
[2021-03-18 08:10] LABS: HCT 48.6 % (39.0-53.0); HGB 15.6 gm/dL (13.0-17.5); MCH 31.3 pg (25.0-35.0); MCHC 32.2 g/dL (31.0-37.0); MCV 97.4 fL (80.0-100.0); Platelet Count 245 k/uL (150-450); RBC 4.99 m/uL (4.30-5.90); RDW 13.7 % (11.5-15.5); WBC 8.1 k/uL (3.8-10.6)
[2021-03-18] MEDS: METOPROLOL TARTRATE 25 MG TAB PO SCH ×2 (08:18→19:32)
[2021-03-18] MEDS: ASPIRIN 81 MG PO SCH (08:18)
[2021-03-18] MEDS: lisinopriL 10 MG TAB PO SCH (08:18)
[2021-03-18] MEDS: SUCRALFATE 1 GM TAB PO SCH ×3 (08:18→17:29)
[2021-03-18] MEDS: FUROSEMIDE 10 MG/ML 4 ML VIAL IV SCH ×2 (08:23→19:32)
--- NOTE | 2021-03-18 10:10 | P.GSCN ---
History of Present Illness Consult date: 03/18/21 History of present illness: This is a 50-year-old gentleman who was admitted to the hospital lower extremity swelling due to congestive heart failure. We are asked to see the patient for scrotal swelling. The patient states that the lower extremity edema is been for a few months. He also has had the scrotal edema the same point in time. It seems to come and go. There's been no injury. There is no pain. There is no erythema or ecchymosis by history. He denies previous trauma. There is no history of urinary infections. He does have back issues. He complains of some dysuria. His urinalysis on admission is clear. He had a scrotal ultrasound identifying " epididymal cysts" as well as a small right hydrocele. He is not had previous urologic surgery. He has not had urine infections. Review of Systems All systems: negative - Constitutional Denies fever, Denies weight loss - EENT Eyes: denies blurred vision Ears, nose, mouth and throat: Denies dysphagia - Cardiovascular Denies chest pain, Denies shortness of breath - Respiratory Denies cough, Denies 7 - Gastrointestinal Reports as per HPI - Genitourinary Denies dysuria, Denies hematuria - Integumentary Denies rash, Denies unusual bruising - Neurological Denies headaches, Denies syncope - Hematologic/Lymphatic Denies easy bleeding, Denies easy bruising Past Medical History Past Medical History: Atrial Fibrillation, COPD, Hyperlipidemia, Hypertension, Pneumonia Additional Past Medical History / Comment(s): Other HX; Costochondritis, chronic pain, chronic low back pain with bilateral sciatica, neuropathy bilatera l hands/feet, migraines, kidney stones, past partial small bowel obstruction. HTN the last 10 yrs Stopped taking meds 5 yrs ago. COPD due to tobacco use. MArijuna use 3 -4 times a week - Smoke it History of Any Multi-Drug Resistant Organisms: None Reported, MRSA Year Discovered:: 04/10/18 MDRO Source:: TOE Past Surgical History: Heart Catheterization, Orthopedic Surgery Additional Past Surgical History / Comment(s): 03/14/18 Cardiac cath-normal coronaries, L shoulder rotator cuff repair x2, cervical injection. Past Anesthesia/Blood Transfusion Reactions: No Reported Reaction Past Psychological History: Anxiety, Bipolar, Depression, Schizophrenia Additional Psychological History / Comment(s): Pt was on Mental Health 2 years ago at [facility] for suicidal ideation - Not seeing anyone currently Smoking Status: Current every day smoker Past Alcohol Use History: None Reported Additional Past Alcohol Use History / Comment(s): Started smoking at age 15- smoked 1 ppd but has cut down to one pack a day Past Drug Use History: Marijuana, Prescription Drug Abuse Additional Drug Use History / Comment(s): Pt smokes marijuana on occasion. - Past Family History Father Family Medical History: Myocardial Infarction ([place]) Additional Family Medical History / Comment(s): mi at age 35, still living Mother Family Medical History: Myocardial Infarction (AL) Additional Family Medical History / Comment(s): Mother has had at least one AL- pt unsure at what age. He has not had much contact with his mother since he was 17 yrs old. Medications and Allergies Home Medications Medication Instructions Recorded Confirmed Type Atorvastatin [Lipitor] 20 mg PO HS #30 tab 03/01/21 03/17/21 Rx Furosemide [Lasix] 20 mg PO BID@0900,1600 #30 tab 03/01/21 03/17/21 Rx Metoprolol Tartrate [Lopressor] 25 mg PO BID #30 tab 03/01/21 03/17/21 Rx Sucralfate [Carafate] 1 gm PO AC-TID #30 tab 03/01/21 03/17/21 Rx lisinopriL [Zestril] 10 mg PO DAILY #30 tab 03/01/21 03/17/21 Rx Aspirin EC [Ecotrin Low Dose] 81 mg PO DAILY 03/17/21 03/17/21 History Allergies Allergy/AdvReac Type Severity Reaction Status Date / Time ibuprofen [From Motrin] AdvReac Nausea & Verified 03/17/21 12:49 Vomiting simvastatin [From Zocor] AdvReac Dizziness Verified 03/17/21 12:49 Surgical - Exam Vital Signs Temp Pulse Resp BP Pulse Ox 98.3 F 109 H 18 169/91 100 03/17/21 10:19 03/17/21 10:19 03/17/21 10:19 03/17/21 10:19 03/17/21 10:19 - General well developed, well nourished, no distress - Eyes PERRL - ENT no hearing loss - Neck trachea midline - Respiratory normal expansion, normal respiratory effort - Cardiovascular Rhythm: regular - Abdomen Abdomen: soft, non tender - Genitourinary The scrotum is not swollen. He is overweight with abundance of Pre pubic fat. The penis and normal. Both testes and epididymis are normal. There is no obvious hydrocele clinically. No perineal abnormality. The scrotal skin is not erythematous or ecchymotic. normal penis with no external lesions, testicles present - Integumentary Lower extremity edema, pitting up to the knees bilaterally. Multiple tattoos. no rash, no growths - Musculoskeletal normal gait, normal posture - Psychiatric oriented to time, oriented to person, oriented to place, speech is normal, memory intact Results - Labs 03/18/21 07:29 03/17/21 12:41 Abnormal Lab Results - Last 24 Hours (Table) 03/17/21 03/17/21 03/17/21 Range/Units 10:30 12:41 12:41 Chloride 109 H (98-107) mmol/L Glucose 111 H (74-99) mg/dL AST 69 H 60 H (17-59) U/L ALT 51 H (4-49) U/L Total Protein 5.8 L (6.3-8.2) g/dL Albumin 3.0 L (3.5-5.0) g/dL Urine Protein Trace H (Negative) Amorphous Sediment Few H (None) /hpf Urine Mucus Rare H (None) /hpf Diabetes panel 03/17/21 03/17/21 Range/Units 10:30 12:41 Sodium 139 138 (137-145) mmol/L Potassium 3.8 3.8 (3.5-5.1) mmol/L Chloride 106 109 H (98-107) mmol/L Carbon Dioxide 28 23 (22-30) mmol/L BUN 17 17 (9-20) mg/dL Creatinine 0.98 0.88 (0.66-1.25) mg/dL Glucose 111 H 92 (74-99) mg/dL Calcium 9.0 8.8 (8.4-10.2) mg/dL AST 69 H 60 H (17-59) U/L ALT 51 H 44 (4-49) U/L Alkaline Phosphatase 96 82 (38-126) U/L Total Protein 6.4 5.8 L (6.3-8.2) g/dL Albumin 3.5 3.0 L (3.5-5.0) g/dL Calcium panel 03/17/21 03/17/21 Range/Units 10:30 12:41 Calcium 9.0 8.8 (8.4-10.2) mg/dL Albumin 3.5 3.0 L (3.5-5.0) g/dL Pituitary panel 03/17/21 03/17/21 Range/Units 10:30 12:41 Sodium 139 138 (137-145) mmol/L Potassium 3.8 3.8 (3.5-5.1) mmol/L Chloride 106 109 H (98-107) mmol/L Carbon Dioxide 28 23 (22-30) mmol/L BUN 17 17 (9-20) mg/dL Creatinine 0.98 0.88 (0.66-1.25) mg/dL Glucose 111 H 92 (74-99) mg/dL Calcium 9.0 8.8 (8.4-10.2) mg/dL Adrenal panel 03/17/21 03/17/21 Range/Units 10:30 12:41 Sodium 139 138 (137-145) mmol/L Potassium 3.8 3.8 (3.5-5.1) mmol/L Chloride 106 109 H (98-107) mmol/L Carbon Dioxide 28 23 (22-30) mmol/L BUN 17 17 (9-20) mg/dL Creatinine 0.98 0.88 (0.66-1.25) mg/dL Glucose 111 H 92 (74-99) mg/dL Calcium 9.0 8.8 (8.4-10.2) mg/dL Total Bilirubin 1.2 1.2 (0.2-1.3) mg/dL AST 69 H 60 H (17-59) U/L ALT 51 H 44 (4-49) U/L Alkaline Phosphatase 96 82 (38-126) U/L Total Protein 6.4 5.8 L (6.3-8.2) g/dL Albumin 3.5 3.0 L (3.5-5.0) g/dL - Imaging US - abdomen: report reviewed, image reviewed US - pelvic: report reviewed, image reviewed Assessment and Plan Assessment: Impression: Scrotal swelling secondary to congestive heart failure. Testicular pain, chronic probably related to his back. Dysuria of indeterminate etiology with normal urinalysis. Recommendations: The scrotal swelling will fluctuate based on his congestive failure just as his lower extremities do. This is been explained to the patient. The patient's dysuria I cannot explain as he has a normal urinalysis. The testicular pain is also without obvious explanation. Most likely this is related to his bad back. From urologic standpoint there is nothing I can do. The patient I'm not sure comprehends this despite several attempts to explain the situation
[2021-03-18] MEDS ORDERED: SPIRONOLACTONE 25 MG TAB PO STA (12:02)
--- NOTE | 2021-03-18 12:43 | P.PN ---
Subjective Patient was seen and evaluated by me this morning. He still complaining of some orthopnea but denies exertional dyspnea. He was up to the bathroom with no difficulty. Continues to have significant scrotal swelling. Objective - Vital Signs Vital signs: Vital Signs Temp 97.8 F 03/18/21 11:28 Pulse 87 03/18/21 11:28 Resp 20 03/18/21 11:28 BP 152/101 03/18/21 11:28 Pulse Ox 92 L 03/18/21 11:28 Intake & Output 03/17/21 03/18/21 03/18/21 18:59 06:59 18:59 Output Total 2100 Balance -2099 Weight 108.912 kg Output: Urine 2100 Other: Voiding Method Toilet Toilet Urinal Urinal # Voids 2 # Bowel Movements 0 - Exam General: The patient is awake and alert, in no distress Eye: there is normal conjunctiva bilaterally. Neck: The neck is supple, there is no JVD. Cardiovascular: Normal S1-S2, no S3-S4, no murmurs. Respiratory: Lungs clear to auscultation bilaterally Gastrointestinal: Abdomen is soft, nontender Musculoskeletal: There is +3 pedal edema. Neurological:. Speech is normal. Skin: Skin is warm and dry - Labs CBC & Chem 7: 03/18/21 07:29 03/17/21 12:41 Labs: Abnormal Lab Results - Last 24 Hours (Table) 03/17/21 03/17/21 Range/Units 12:41 12:41 Chloride 109 H (98-107) mmol/L AST 60 H (17-59) U/L Total Protein 5.8 L (6.3-8.2) g/dL Albumin 3.0 L (3.5-5.0) g/dL Urine Protein Trace H (Negative) Amorphous Sediment Few H (None) /hpf Urine Mucus Rare H (None) /hpf Assessment and Plan Assessment: This is a 50-year-old male with complex past medical history noted below Presented to the emergency room with worsening scrotal swelling and pain. Hank flannery was evaluated in the ER and admitted to the hospital for further management of his medical problems noted below. 1. Acute systolic heart failure exacerbation with evidence of fluid overload. Known EF of 20-25%. Patient was started on IV Lasix 40 mg twice daily. 2. Scrotal swelling: Mostly related to edema and fluid overload. Scrotal ultrasound showed epididymal cyst. Patient was seen and evaluated by urology. No further workup recommended at this time. Urinalysis unremarkable. 3. Nonischemic cardiomyopathy with recent left heart catheterization on 03/01 was no significant coronary artery disease 4. Chronic medical problems: Hypertension, history of bipolar disorder/schizoph tristan, history of polysubstance abuse now in remission
[2021-03-18 14:00] LABS: African American GFR (CKD) 91.5 (60.0-200.0); BUN/Creat Ratio 15.55 Ratio (12.00-20.00); Blood Urea Nitrogen 17.1 mg/dL (9.0-27.0); Calcium 8.4 mg/dL (8.7-10.3); Magnesium 1.8 mg/dL (1.5-2.4); Potassium 3.9 mmol/L (3.5-5.5)
--- NOTE | 2021-03-18 14:31 | P.CRDCN ---
History of Present Illness Consult date: 03/18/21 History of present illness: HISTORY OF PRESENT ILLNESS: This is a 50-year-old male with a past medical history significant for hypertension, nicotine dependence, marijuana use, and atrial fibrillation per the patient not on anticoagulation also history of heroin use but states he has been clean for the past couple years. Patient had a recent hospitalization 3 weeks ago for chest pain ruled out acute coronary syndrome but found to have acute systolic heart failure and severe cardiomyopathy with EF of 20-25%, severe global hypokinesia of the LV and severe mitral regurgitation, severe requested regurgitation severe pulmonary hypertension. Patient was discharged home on aspirin, Lipitor and Lasix lisinopril metoprolol tartrate and was to follow-up with Dr. Burleson but he states he has not been to the office yet but has been taking his medications as directed. He did undergo heart catheterization on 03/01 with no significant coronary artery disease noted. Patient now presents emergency center due to right lower quadrant pain that he has had for several months and pain in his scrotum. He has been seen by urology with no identified etiology. Patient continues to have lower extremity edema EKG reveals sinus tachycardia at 108 with no signs of acute ischemia Laboratory data: CBC was unremarkable. BUN 17 creatinine 1.1. Coronavirus PCR not detected. Chest x-ray reveals interstitial pneumonitis, venous congestion or bronchitis. Chronic interstitial lung disease also in the differential. Right lower quadrant ultrasound: Appendix not seen. No sign of thickened appendix. No free fluid. Scrotal ultrasound reveals left side varicocele. No testicular torsion or mass. Small epididymal cyst small right-sided hydrocele. REVIEW OF SYSTEMS: At the time of my exam: CONSTITUTIONAL: Denies fever or chills. HEENT: Denies blurred vision, vision changes, or eye pain. Denies hemoptysis CARDIOVASCULAR: Denies chest pain. Denies orthopnea. Denies PND. Denies palpitations RESPIRATORY: Denies shortness of breath. GASTROINTESTINAL: + abdominal pain. Denies nausea or vomiting. HEMATOLOGIC: Denies bleeding disorders. GENITOURINARY: Denies any blood in urine. SKIN: Denies pruitis. Denies rash. PHYSICAL EXAM: VITAL SIGNS: Reviewed. GENERAL: Well-developed in no acute distress. HEENT: Head is normocephalic. Pupils are equal, round. Sclerae anicteric. Mucous membranes of the mouth are moist. Neck supple. No JVD or thyromegaly LUNGS: Respirations even and unlabored. Lungs essentially clear to auscultation bilaterally. HEART: Regular rate and rhythm. S1 and S2 heard. ABDOMEN: Soft. Nondistended. Right lower quadrant tenderness. EXTREMITIES: Normal range of motion. No clubbing or cyanosis. Peripheral pulses intact. 2+ lower extremity edema NEUROLOGIC: Awake and alert. Oriented x 3. ASSESSMENT: Abdominal pain and scrotal edema Acute on Chronic systolic heart failure Severe cardiomyopathy of unclear etiology Hypertension Nicotine dependence Marijuana use History of atrial fibrillation per patient not on anticoagulation PLAN: Patient has been resumed on aspirin 81 mg daily, Lipitor 20 g daily, lisinopril 10 mg daily, Lopressor 25 mg twice daily Add Aldactone 25 mg daily, started today Continue Lasix 40 mg IV every 12 hours Monitor I&O, daily weights, electrolytes and renal function Smoking cessation recommended Absence from marijuana recommended Further recommendations pending patient's course Nurse practitioner note has been reviewed by physician. Signing provider agrees with the documented findings, assessment, and plan of care. Past Medical History Past Medical History: Atrial Fibrillation, COPD, Hyperlipidemia, Hypertension, Pneumonia Additional Past Medical History / Comment(s): Other HX; Costochondritis, chronic pain, chronic low back pain with bilateral sciatica, neuropathy bilateral hands/feet, migraines, kidney stones, past partial small bowel obstruction. HTN the last 10 yrs Stopped taking meds 5 yrs ago. COPD due to tobacco use. MArijuna use 3 -4 times a week - Smoke it History of Any Multi-Drug Resistant Organisms: None Reported, MRSA Date of last positivie culture/infection: 04/10/18 MDRO Source:: TOE Past Surgical History: Heart Catheterization, Orthopedic Surgery Additional Past Surgical History / Comment(s): 03/14/18 Cardiac cath-normal coronaries, L shoulder rotator cuff repair x2, cervical injection. Past Anesthesia/Blood Transfusion Reactions: No Reported Reaction Past Psychological History: Anxiety, Bipolar, Depression, Schizophrenia Additional Psychological History / Comment(s): Pt was on Mental Health 2 years ago at [facility] for suicidal ideation - Not seeing anyone currently Smoking Status: Current every day smoker Past Alcohol Use History: None Reported Additional Past Alcohol Use History / Comment(s): Started smoking at age 15- smoked 1 ppd but has cut down to one pack a day Past Drug Use History: Marijuana, Prescription Drug Abuse Additional Drug Use History / Comment(s): Pt smokes marijuana on occasion. - Past Family History Father Family Medical History: Myocardial Infarction (PA) Additional Family Medical History / Comment(s): mi at age 35, still living Mother Family Medical History: Myocardial Infarction (PA) Additional Family Medical History / Comment(s): Mother has had at least one PA-pt unsure at what age. He has not had much contact with his mother since he was 17 yrs old. Medications and Allergies Home Medications Medication Instructions Recorded Confirmed Type Atorvastatin [Lipitor] 20 mg PO HS #30 tab 03/01/21 03/17/21 Rx Furosemide [Lasix] 20 mg PO BID@0900,1600 #30 tab 03/01/21 03/17/21 Rx Metoprolol Tartrate [Lopressor] 25 mg PO BID #30 tab 03/01/21 03/17/21 Rx Sucralfate [Carafate] 1 gm PO AC-TID #30 tab 03/01/21 03/17/21 Rx lisinopriL [Zestril] 10 mg PO DAILY #30 tab 03/01/21 03/17/21 Rx Aspirin EC [Ecotrin Low Dose] 81 mg PO DAILY 03/17/21 03/17/21 History Allergies Allergy/AdvReac Type Severity Reaction Status Date / Time ibuprofen [From Motrin] AdvReac Nausea & Verified 03/17/21 12:49 Vomiting simvastatin [From Zocor] AdvReac Dizziness Verified 03/17/21 12:49 Physical Exam Vitals: Vital Signs Temp Pulse Pulse Pulse Resp BP BP 03/18/21 11:28 97.8 F 87 20 152/101 03/18/21 08:15 92 144/94 03/18/21 04:16 97.6 F 89 18 135/95 03/17/21 22:40 97.8 F 98 16 146/93 03/17/21 21:23 110 H 18 142/98 03/17/21 19:34 105 H 18 150/99 03/17/21 17:57 98.7 F 110 H 18 152/107 03/17/21 14:31 110 H 18 153/110 Pulse Ox 03/18/21 11:28 92 L 03/18/21 08:15 03/18/21 04:16 96 03/17/21 22:40 96 03/17/21 21:23 97 03/17/21 19:34 99 03/17/21 17:57 98 03/17/21 14:31 98 Intake and Output 03/17/21 03/18/21 03/18/21 22:59 06:59 14:59 Output Total 2100 Balance -2100 Output: Urine 2100 Other: Voiding Method Toilet Toilet Urinal Urinal # Voids 2 # Bowel Movements 0 Weight 108.912 kg Results 03/18/21 07:29 03/18/21 07:29 CBC 03/18/21 Range/Units 07:29 WBC 8.1 (3.8-10.6) k/uL RBC 4.99 (4.30-5.90) m/uL Hgb 15.6 (13.0-17.5) gm/dL Hct 48.6 (39.0-53.0) % Plt Count 245 (150-450) k/uL Comprehensive Metabolic Panel 03/18/21 Range/Units 07:29 Sodium 137 (135-145) mmol/L Potassium 3.9 (3.5-5.5) mmol/L Chloride 99 (96-109) mmol/L Carbon Dioxide 24.0 (21.6-31.8) mmol/L BUN 17.1 (9.0-27.0) mg/dL Creatinine 1.1 (0.6-1.5) mg/dL Glucose 107 (70-110) mg/dL Calcium 8.4 L (8.7-10.3) mg/dL Current Medications Generic Name Dose Route Start Last Admin Trade Name Freq PRN Reason Stop Dose Admin Aspirin 81 mg 03/18/21 09:00 03/18/21 08:18 Aspirin 81 Mg PO 81 mg DAILY GILES Administration Atorvastatin Calcium 20 mg 03/17/21 21:00 03/17/21 21:27 Atorvastatin 20 Mg Tab PO 20 mg HS GILES Administration Furosemide 40 mg 03/18/21 09:00 03/18/21 08:23 Furosemide 10 Mg/Ml 4 Ml Vial IV 40 mg Q12HR GILES Administration Lisinopril 10 mg 03/18/21 09:00 03/18/21 08:18 Lisinopril 10 Mg Tab PO 10 mg DAILY GILES Administration Metoprolol Tartrate 25 mg 03/17/21 21:00 03/18/21 08:18 Metoprolol Tartrate 25 Mg Tab PO 25 mg BID GILES Administration Spironolactone 25 mg 03/19/21 09:00 Spironolactone 25 Mg Tab PO DAILY [facility] Sucralfate 1 gm 03/17/21 17:30 03/18/21 12:31 Sucralfate 1 Gm Tab PO 1 gm AC-TID GILES Administration Intake and Output 03/17/21 03/18/21 03/18/21 22:59 06:59 14:59 Output Total 2100 Balance -2100 Output: Urine 2100 Other: Voiding Method Toilet Toilet Urinal Urinal # Voids 2 # Bowel Movements 0 Weight 108.912 kg 03/18/21 07:29 03/18/21 07:29
[2021-03-18] MEDS: ATORVASTATIN 20 MG TAB PO SCH (19:32)
[2021-03-19 06:21] LABS: African American GFR (CKD) >90 (>60 ml/min/1.73 sqM); Anion Gap 8 mmol/L; Blood Urea Nitrogen 22 mg/dL (9-20); Carbon Dioxide 29 mmol/L (22-30); Chloride 104 mmol/L (98-107); Glucose 95 mg/dL (74-99); Magnesium 1.9 mg/dL (1.6-2.3); Non-African American GFR(CKD) 79 (>60 ml/min/1.73 sqM); Potassium 4.2 mmol/L (3.5-5.1); Sodium 141 mmol/L (137-145)
[2021-03-19] MEDS: ASPIRIN 81 MG PO SCH (08:55)
[2021-03-19] MEDS: METOPROLOL TARTRATE 25 MG TAB PO SCH ×2 (08:55→20:33)
[2021-03-19] MEDS: lisinopriL 10 MG TAB PO SCH (08:55)
[2021-03-19] MEDS: SPIRONOLACTONE 25 MG TAB PO SCH (08:55)
[2021-03-19] MEDS: SUCRALFATE 1 GM TAB PO SCH ×3 (08:56→17:45)
[2021-03-19] MEDS: FUROSEMIDE 10 MG/ML 4 ML VIAL IV SCH ×2 (08:56→20:33)
--- NOTE | 2021-03-19 11:04 | P.PN ---
Subjective Progress Note Date: 03/19/21 HISTORY OF PRESENT ILLNESS: This is a 50-year-old male with a past medical history significant for hypertension, nicotine dependence, marijuana use, and atrial fibrillation per the patient not on anticoagulation also history of heroin use but states he has been clean for the past couple years. Patient had a recent hospitalization 3 weeks ago for chest pain ruled out acute coronary syndrome but found to have acute systolic heart failure and severe cardiomyopathy with EF of 20-25%, severe global hypokinesia of the LV and severe mitral regurgitation, severe requested regurgitation severe pulmonary hypertension. Patient was discharged home on aspirin, Lipitor and Lasix lisinopril metoprolol tartrate and was to follow-up with Dr. Burleson but he states he has not been to the office yet but has been taking his medications as directed. He did undergo heart catheterization on with no significant coronary artery disease noted. Patient now presents emergency center due to right lower quadrant pain that he has had for several months and pain in his scrotum. He has been seen by urology with no identified etiology. Patient continues to have lower extremity edema EKG reveals sinus tachycardia at 108 with no signs of acute ischemia Laboratory data: CBC was unremarkable. BUN 17 creatinine 1.1. Coronavirus PCR not detected. Chest x-ray reveals interstitial pneumonitis, venous congestion or bronchitis. Chronic interstitial lung disease also in the differential. Right lower quadrant ultrasound: Appendix not seen. No sign of thickened appendix. No free fluid. Scrotal ultrasound reveals left side varicocele. No testicular torsion or mass. Small epididymal cyst small right-sided hydrocele. 03/19/2021: Patient states that he is urinating well with the Lasix. He has continued edema but improved from yesterday. Patient continues to complain of pain in the scrotum and right lower abdominal quadrant. He is complaining of pain shooting type in his right leg. Patient was started on Aldactone yesterday in addition to IV Lasix, the plan will be to continue current medications. PHYSICAL EXAM: VITAL SIGNS: Blood pressure 147/99, heart rate 96, pulse ox 96% on room air, afebrile. GENERAL: Well-developed in no acute distress. HEENT: Head is normocephalic. Pupils are equal, round. Sclerae anicteric. Mucous membranes of the mouth are moist. Neck supple. No JVD or thyromegaly LUNGS: Respirations even and unlabored. Lungs essentially clear to auscultation bilaterally. HEART: Regular rate and rhythm. S1 and S2 heard. ABDOMEN: Soft. Nondistended. Right lower quadrant tenderness. EXTREMITIES: Normal range of motion. No clubbing or cyanosis. Peripheral pulses intact. 1-2+ lower extremity edema NEUROLOGIC: Awake and alert. Oriented x 3. ASSESSMENT: Abdominal pain and scrotal edema Acute on Chronic systolic heart failure Severe cardiomyopathy of unclear etiology Hypertension Nicotine dependence Marijuana use History of atrial fibrillation per patient not on anticoagulation PLAN: Continue aspirin 81 mg daily, Lipitor 20 g daily, lisinopril 10 mg daily, Lopressor 25 mg twice daily Continue Aldactone 25 mg daily, Lasix 40 mg IV every 12 hours Monitor I&O, daily weights, electrolytes and renal function Smoking cessation recommended Absence from marijuana recommended Further recommendations pending patient's course Nurse practitioner note has been reviewed by physician. Signing provider agrees with the documented findings, assessment, and plan of care. Objective - Vital Signs Vital signs: Vital Signs Temp 98.0 F 03/19/21 04:38 Pulse 85 03/19/21 04:38 Resp 16 03/19/21 04:38 BP 146/91 03/19/21 04:38 Pulse Ox 97 03/19/21 04:38 Intake & Output 03/18/21 03/19/21 03/19/21 18:59 06:59 18:59 Intake Total 800 Balance 800 Weight 104.014 kg 103 kg Intake: Oral 800 Other: Voiding Method Toilet Toilet Urinal Urinal # Voids 3 - Labs CBC & Chem 7: 03/18/21 07:29 03/19/21 05:30 Labs: Abnormal Lab Results - Last 24 Hours (Table) 03/18/21 03/19/21 Range/Units 07:29 05:30 Anion Gap 14.00 H (4.00-12.00) mmol/L BUN 22 H (9-20) mg/dL Calcium 8.4 L (8.7-10.3) mg/dL
--- NOTE | 2021-03-19 11:47 | P.DS ---
Providers Date of admission: 03/17/21 15:01 Expected date of discharge: 03/19/21 Attending physician: Raymundo Baxter MD Consults: 03/17/21 15:40 Consult Physician Urgent Consulting Provider: Jeferson Courntey Consult Reason/Comments: CHF Do you want consulting provider notified?: Yes 03/17/21 15:41 Consult Physician Urgent Consulting Provider: Dong Azevedo Consult Reason/Comments: Scrotal swelling Do you want consulting provider notified?: Yes Primary care physician: Stated None Hospital Course: This is a 50-year-old male with complex past medical history noted below Presented to the emergency room with worsening scrotal swelling and pain. Patient was evaluated in the ER and admitted to the hospital for further management of his medical problems noted below. 1. Acute systolic heart failure exacerbation with evidence of fluid overload. Known EF of 20-25%. Patient was started on IV Lasix 40 mg twice daily. 2. Scrotal swelling: Mostly related to edema and fluid overload. Scrotal ultrasound showed epididymal cyst. Patient was seen and evaluated by urology. No further workup recommended at this time. Urinalysis unremarkable. 3. Nonischemic cardiomyopathy with recent left heart catheterization on 03/01 was no significant coronary artery disease 4. Chronic medical problems: Hypertension, history of bipolar disorder/schizophrenia, history of polysubstance abuse now in remission Patient's overall condition improved significantly throughout his hospital stay. Scrotal swelling and edema also improved. Patient was counseled extensively regarding fluid restriction and low-salt diet. Home dose of Lasix will be increased to 40 mg twice daily. Plan to follow-up in the office as directed. Physical exam: General: The patient is awake and alert, in no distress Eye: there is normal conjunctiva bilaterally. Neck: The neck is supple, there is no JVD. Cardiovascular: Normal S1-S2, no S3-S4, no murmurs. Respiratory: Lungs clear to auscultation bilaterally Gastrointestinal: Abdomen is soft, nontender Musculoskeletal: There is +2 pedal edema. Neurological:. Speech is normal. Skin: Skin is warm and dry Plan - Discharge Summary New Discharge Prescriptions: New Spironolactone [Aldactone] 25 mg PO DAILY #30 tab Furosemide [Lasix] 40 mg PO BID #60 tablet Continue Sucralfate [Carafate] 1 gm PO AC-TID #30 tab Atorvastatin [Lipitor] 20 mg PO HS #30 tab lisinopriL [Zestril] 10 mg PO DAILY #30 tab Metoprolol Tartrate [Lopressor] 25 mg PO BID #30 tab Aspirin EC [Ecotrin Low Dose] 81 mg PO DAILY Discontinued Furosemide [Lasix] 20 mg PO BID@0900,1600 #30 tab Discharge Medication List Atorvastatin [Lipitor] 20 mg PO HS #30 tab 03/01/21 [Rx] Metoprolol Tartrate [Lopressor] 25 mg PO BID #30 tab 03/01/21 [Rx] Sucralfate [Carafate] 1 gm PO AC-TID #30 tab 03/01/21 [Rx] lisinopriL [Zestril] 10 mg PO DAILY #30 tab 03/01/21 [Rx] Aspirin EC [Ecotrin Low Dose] 81 mg PO DAILY 03/17/21 [History] Furosemide [Lasix] 40 mg PO BID #60 tablet 03/19/21 [Rx] Spironolactone [Aldactone] 25 mg PO DAILY #30 tab 03/19/21 [Rx] Follow up Appointment(s)/Referral(s): None,Stated [Primary Care Provider] - 1-2 days Katty Macias MD [STAFF PHYSICIAN] - 1 Week Discharge Disposition: HOME SELF-CARE
[2021-03-19] MEDS: ATORVASTATIN 20 MG TAB PO SCH (20:33)
[2021-03-20 08:05] VITALS: RESP 18
[2021-03-20] MEDS: lisinopriL 10 MG TAB PO SCH (08:25)
[2021-03-20] MEDS: SUCRALFATE 1 GM TAB PO SCH (08:25)
[2021-03-20] MEDS: METOPROLOL TARTRATE 25 MG TAB PO SCH (08:25)
[2021-03-20] MEDS: ASPIRIN 81 MG PO SCH (08:25)
[2021-03-20] MEDS: SPIRONOLACTONE 25 MG TAB PO SCH (08:25)
[2021-03-20] MEDS ORDERED: FUROSEMIDE 40 MG TAB PO SCH (09:00)
[2021-03-20] MEDS ORDERED: FUROSEMIDE 10 MG/ML 4 ML VIAL IV SCH (10:15)
--- NOTE | 2021-03-20 10:16 | P.PN ---
Subjective HISTORY OF PRESENT ILLNESS: This is a 50-year-old male with a past medical history significant for hypertension, nicotine dependence, marijuana use, and atrial fibrillation per the patient not on anticoagulation also history of heroin use but states he has been clean for the past couple years. Patient had a recent hospitalization 3 weeks ago for chest pain ruled out acute coronary syndrome but found to have acute systolic heart failure and severe cardiomyopathy with EF of 20-25%, severe global hypokinesia of the LV and severe mitral regurgitation, severe requested regurgitation severe pulmonary hypertension. Patient was discharged home on aspirin, Lipitor and Lasix lisinopril metoprolol tartrate and was to follow-up with Dr. Burleson but he states he has not been to the office yet but has been taking his medications as directed. He did undergo heart catheterization on 03/01 with no significant coronary artery disease noted. Patient now presents emergency center due to right lower quadrant pain that he has had for several months and pain in his scrotum. He has been seen by urology with no identified etiology. Patient continues to have lower extremity edema EKG reveals sinus tachycardia at 108 with no signs of acute ischemia Laboratory data: CBC was unremarkable. BUN 17 creatinine 1.1. Coronavirus PCR not detected. Chest x-ray reveals interstitial pneumonitis, venous congestion or bronchitis. Chronic interstitial lung disease also in the differential. Right lower quadrant ultrasound: Appendix not seen. No sign of thickened appendix. No free fluid. Scrotal ultrasound reveals left side varicocele. No testicular torsion or mass. Small epididymal cyst small right-sided hydrocele. 03/19/2021: Patient states that he is urinating well with the Lasix. He has continued edema but improved from yesterday. Patient continues to complain of pain in the scrotum and right lower abdominal quadrant. He is complaining of pain shooting type in his right leg. Patient was started on Aldactone yesterday in addition to IV Lasix, the plan will be to continue current medications. 03/20 Patient seen and examined. Patient was transitioned over to oral Lasix 40 mg twice a day however states he is not urinating much with the oral Lasix. Still does have 2+ lower extremity edema. Denies any chest pain or pressure. He did have heart catheterization performed 03/01/2021 which was personally reviewed with normal coronary arteries. PHYSICAL EXAM: VITAL SIGNS: Blood pressure 147/99, heart rate 96, pulse ox 96% on room air, afebrile. GENERAL: Well-developed in no acute distress. HEENT: Head is normocephalic. Pupils are equal, round. Sclerae anicteric. Mucous membranes of the mouth are moist. Neck supple. No JVD or thyromegaly LUNGS: Respirations even and unlabored. Lungs essentially clear to auscultation bilaterally. HEART: Regular rate and rhythm. S1 and S2 heard. ABDOMEN: Soft. Nondistended. Right lower quadrant tenderness. EXTREMITIES: Normal range of motion. No clubbing or cyanosis. Peripheral pulse s intact. 1-2+ lower extremity edema NEUROLOGIC: Awake and alert. Oriented x 3. ASSESSMENT: Abdominal pain and scrotal edema Acute on Chronic systolic heart failure Severe cardiomyopathy, nonischemic left heart catheterization 03/01/2021 with normal coronary arteries Hypertension Nicotine dependence Marijuana use History of atrial fibrillation per patient not on anticoagulation PLAN: Continue aspirin 81 mg daily, Lipitor 20 g daily, lisinopril 10 mg daily, Lopressor 25 mg twice daily Continue Aldactone 25 mg daily Patient still appears volume overloaded. Decreased urine output over last 24 hours with oral Lasix and therefore we will change to Bumex 2 mg oral twice a day. If patient has improved diuresis with the Bumex 2 mg oral, patient may be discharged home however if diuresis does not improve patient may need more IV diuresis. High risk for bounce back, readmission and must ensure adequate diuresis. Social work helping with arrangements as patient is homeless. Objective - Vital Signs Vital signs: Vital Signs Temp 97.7 F 03/20/21 05:00 Pulse 98 03/20/21 08:04 Resp 18 03/20/21 08:04 BP 141/106 03/20/21 08:04 Pulse Ox 98 03/20/21 08:04 Intake & Output 03/19/21 03/20/21 03/20/21 18:59 06:59 18:59 Intake Total 500 480 Balance 500 480 Weight 107.5 kg Intake: Oral 500 480 Other: Voiding Method Toilet # Voids 2 3 - Labs CBC & Chem 7: 03/18/21 07:29 03/19/21 05:30
[2021-03-20] MEDS ORDERED: BUMETANIDE 1 MG TAB PO SCH (10:30)
--- NOTE | 2021-03-20 12:57 | P.PN ---
Progress Note - Text Patient discharge was canceled yesterday by nursing staff without notifying me. Apparently patient is homeless and did not have a place to go to. He will be discharged home today. I had a discussion with cardiology to switch his Lasix to Bumex. I have already increased his home dose of Lasix from 20 mg twice daily to 40 mg twice daily. Patient is very noncompliant with fluid or salt restriction. He was counseled extensively. He should continue with Lasix 40 mg twice daily and follow-up as directed. Social work was involved in helping with discharge planning.
[2021-03-20 12:59] VITALS: BP 124/90; PULSE 101; TEMP 98.1
== END 2021-03-20 13:50 | disposition home or self-care (01) ==
LOC: EC 10:18 → 6NMEDSUR 15:01 → 5NMEDONC 20:46
PROVIDERS: ADMIT Internal Medicine; ATTEND Internal Medicine
DX: I11.0 Hypertensive heart disease with heart failure (principal); I50.23 Acute on chronic systolic (congestive) heart failure; I16.0 Hypertensive urgency; N50.3 Cyst of epididymis; Z20.822 Contact with and (suspected) exposure to COVID-19; I42.8 Other cardiomyopathies; F20.9 Schizophrenia, unspecified; F31.9 Bipolar disorder, unspecified; F41.9 Anxiety disorder, unspecified; E78.5 Hyperlipidemia, unspecified; F17.210 Nicotine dependence, cigarettes, uncomplicated; M94.0 Chondrocostal junction syndrome [Tietze]; G62.9 Polyneuropathy, unspecified; F12.90 Cannabis use, unspecified, uncomplicated; Z71.51 Drug abuse counseling and surveillance of drug abuser; N43.3 Hydrocele, unspecified; J44.9 Chronic obstructive pulmonary disease, unspecified; I48.91 Unspecified atrial fibrillation; M54.42 Lumbago with sciatica, left side; M54.41 Lumbago with sciatica, right side; Z59.00 Homelessness unspecified; Z79.899 Other long term (current) drug therapy; Z79.82 Long term (current) use of aspirin; Z91.19 Patient's noncompliance with other medical treatment and regimen; Z87.01 Personal history of pneumonia (recurrent); Z87.442 Personal history of urinary calculi; Z86.69 Personal history of other diseases of the nervous system and sense organs; Z87.19 Personal history of other diseases of the digestive system; Z86.14 Personal history of Methicillin resistant Staphylococcus aureus infection; Z82.49 Family history of ischemic heart disease and other diseases of the circulatory system
CPT/HCPCS: 99285; 96376 ×4; 96361 ×2; 96372; 96374; 96375; 36415; 93005; 83880; 80053; 80048 ×2; 82150; 83690; 83735 ×2; 85025; 85027; 81001; 87635; 71046; 93975; 76870; 76705; G0378 ×4; J0360; J1940 ×3; J2405; J1885; J1170 ×2

== ENCOUNTER 2021-03-21 22:13 | Emergency (ER) | payer OTHER ==
[2021-03-21 22:18] VITALS: TEMP 97.3
[2021-03-22] MEDS ORDERED: NITROGLYCERIN SL TABS 0.4 MG TAB SUBLINGUAL STA (01:04)
[2021-03-22] MEDS ORDERED: ASPIRIN 81 MG PO STA (01:04)
--- NOTE | 2021-03-22 01:06 | ED ---
Chest Pain HPI - General Source: patient Mode of arrival: wheelchair Limitations: no limitations - History of Present Illness MD Complaint: chest pain Onset/Timin -: days(s) Onset: during rest Pain Location: substernal Pain Radiation: none Severity: moderate Quality: tightness Consistency: constant Improves With: nothing Worsens With: nothing Anginal Symptoms: dyspnea Treatments Prior to Arrival: none <Catarino Johnson - Last Filed: 03/22/21 05:27> <Lonnie Thompson - Last Filed: 03/22/21 09:17> - General Chief Complaint: Chest Pain Stated Complaint: Chest Pain Time Seen by Provider: 03/22/21 00:58 - Related Data Home Medications Medication Instructions Recorded Confirmed Aspirin EC [Ecotrin Low Dose] 81 mg PO DAILY 03/17/21 03/22/21 Previous Rx's Medication Instructions Recorded Atorvastatin [Lipitor] 20 mg PO HS #30 tab 03/01/21 Metoprolol Tartrate [Lopressor] 25 mg PO BID #30 tab 03/01/21 Sucralfate [Carafate] 1 gm PO AC-TID #30 tab 03/01/21 lisinopriL [Zestril] 10 mg PO DAILY #30 tab 03/01/21 Furosemide [Lasix] 40 mg PO BID #60 tablet 03/19/21 Spironolactone [Aldactone] 25 mg PO DAILY #30 tab 03/19/21 Allergies Allergy/AdvReac Type Severity Reaction Status Date / Time ibuprofen [From Motrin] AdvReac Nausea & Verified 03/22/21 06:43 Vomiting simvastatin [From Zocor] AdvReac Dizziness Verified 03/22/21 06:43 Review of Systems ROS Other: All systems not noted in ROS Statement are negative. Constitutional: Denies: fever, chills Respiratory: Reports: dyspnea. Denies: cough, wheezes, hemoptysis Cardiovascular: Reports: chest pain, orthopnea, edema. Denies: palpitations, syncope Gastrointestinal: Denies: abdominal pain, vomiting, diarrhea Genitourinary: Denies: dysuria, frequency, hematuria Musculoskeletal: Denies: back pain Skin: Denies: rash Neurological: Denies: headache, weakness, numbness <Catarino Johnson - Last Filed: 03/22/21 05:27> ROS Other: All systems not noted in ROS Statement are negative. <Lonnie Thompson Basil - Last Filed: 03/22/21 09:17> ROS Statement: Those systems with pertinent positive or pertinent negative responses have been documented in the HPI. EKG Findings - EKG Comments: EKG Findings:: Possible old anterior infarct. - EKG Results: EKG: interpreted by ERMD, sinus rhythm, normal axis, normal ST/T EKG shows: tachycardia (Rate 110 bpm) <MarkyCatarino prakash - Last Filed: 03/22/21 05:27> Past Medical History Past Medical History: Atrial Fibrillation, COPD, Hyperlipidemia, Hypertension, Pneumonia Additional Past Medical History / Comment(s): Other HX; Costochondritis, chronic pain, chronic low back pain with bilateral sciatica, neuropathy bilateral hands/feet, migraines, kidney stones, past partial small bowel obstruction. HTN the last 10 yrs Stopped taking meds 5 yrs ago. COPD due to tobacco use. MArijuna use 3 -4 times a week - Smoke it History of Any Multi-Drug Resistant Organisms: None Reported, MRSA Date of last positivie culture/infection: 04/10/18 MDRO Source:: TOE Past Surgical History: Heart Catheterization, Orthopedic Surgery Additional Past Surgical History / Comment(s): 03/14/18 Cardiac cath-normal coronaries, L shoulder rotator cuff repair x2, cervical injection. Past Anesthesia/Blood Transfusion Reactions: No Reported Reaction Past Psychological History: Anxiety, Bipolar, Depression, Schizophrenia Smoking Status: Current every day smoker Past Alcohol Use History: None Reported Past Drug Use History: Marijuana, Prescription Drug Abuse - Past Family History Father Family Medical History: Myocardial Infarction ([place]) Additional Family Medical History / Comment(s): mi at age 35, still living Mother Family Medical History: Myocardial Infarction ([place]) Additional Family Medical History / Comment(s): Mother has had at least one [place]- pt unsure at what age. He has not had much contact with his mother since he was 17 yrs old. <MarkyCatarino prakash - Last Filed: 03/22/21 05:27> General Exam Limitations: no limitations General appearance: alert, in no apparent distress Head exam: Present: atraumatic, normocephalic Eye exam: Present: normal appearance. Absent: scleral icterus, conjunctival injection Respiratory exam: Present: normal lung sounds bilaterally. Absent: respiratory distress, wheezes, rales, rhonchi, stridor Cardiovascular Exam: Present: normal rhythm, tachycardia, systolic murmur, gallop. Absent: diastolic murmur, rubs GI/Abdominal exam: Present: soft. Absent: distended, tenderness, guarding, rebound, rigid, mass Extremities exam: Present: normal inspection, normal capillary refill, pedal edema. Absent: calf tenderness Back exam: Present: normal inspection. Absent: CVA tenderness (R), CVA tenderness (L) Neurological exam: Present: alert Skin exam: Present: warm, dry, intact, normal color. Absent: rash <Catarino Johnson - Last Filed: 03/22/21 05:27> Course Vital Signs 03/21/21 03/22/21 03/22/21 22:17 03:29 07:40 Temperature 97.3 F L Pulse Rate 117 H 101 H 103 H Respiratory 18 16 18 Rate Blood Pressure 155/108 148/89 130/98 O2 Sat by Pulse 100 [address] [facility] <Lonnie Thompson - Last Filed: 03/22/21 09:17> - [facility] Patient care was signed out to me by previous shift physician, Dr. Munson. Briefly, patient is a 42-year-old male presents emergency department for chest pain. Recently admitted for congestive heart failure. Plan at sign out was to follow-up with second troponin determine final disposition. Initial labs were reviewed. Initial labs are unremarkable. Initial troponin was 0.013. Repeat troponin is negative. Patient reevaluated at the bedside from been stable medical condition. Not showing any signs of dyspnea. Patient feels well. Denies any symptoms at this time. Patient will be discharged. Advised follow- up with primary care doctor and guest service agent. (Lonnie Thompson) Disposition Is patient prescribed a controlled substance at d/c from ED?: No <Catarino Johnson - Last Filed: 03/22/21 05:27> <Lonnie Thompson - Last Filed: 03/22/21 09:17> Clinical Impression: CHF (congestive heart failure) Disposition: HOME SELF-CARE Condition: Good Instructions (If sedation given, give patient instructions): Heart Failure (DC) Referrals: None,Stated [Primary Care Provider] - 1-2 days
[2021-03-22 01:44] LABS: Basophils # (A) 0.1 k/uL (0-0.2); Basophils % (A) 1 %; Eosinophils # (A) 0.4 k/uL (0-0.7); Eosinophils % (A) 4 %; HCT 46.5 % (39.0-53.0); HGB 15.4 gm/dL (13.0-17.5); Lymphocytes # (A) 1.7 k/uL (1.0-4.8); Lymphocytes % (A) 16 %; MCH 31.7 pg (25.0-35.0); MCHC 33.2 g/dL (31.0-37.0); MCV 95.8 fL (80.0-100.0); Mean Platelet Volume 8.1; Monocytes # (A) 0.6 k/uL (0-1.0); Monocytes % (A) 6 %; Neutrophils # (A) 7.7 k/uL (1.3-7.7); Neutrophils % (A) 72 %; Platelet Count 239 k/uL (150-450); RBC 4.86 m/uL (4.30-5.90); RDW 14.3 % (11.5-15.5); WBC 10.7 k/uL (3.8-10.6)
--- NOTE | 2021-03-22 01:47 | XR ---
EXAMINATION TYPE: XR chest 2V DATE OF EXAM: 03/22/2021 COMPARISON: 03/17/2021 HISTORY: Chest pain TECHNIQUE: 2 views FINDINGS: Heart is normal. Lungs are clear of consolidation. There are no hilar masses. Costophrenic angles are clear. Bony thorax is intact. IMPRESSION: No active cardiopulmonary disease. Normal heart. No change.
[2021-03-22 02:01] LABS: ALT 47 U/L (4-49); AST 66 U/L (17-59); African American GFR (CKD) >90 (>60 ml/min/1.73 sqM); Albumin 3.3 g/dL (3.5-5.0); Alkaline Phosphatase 107 U/L (38-126); Amylase 56 U/L (30-110); Anion Gap 5 mmol/L; Blood Urea Nitrogen 15 mg/dL (9-20); Calcium 8.6 mg/dL (8.4-10.2); Carbon Dioxide 24 mmol/L (22-30); Chloride 108 mmol/L (98-107); Glucose 96 mg/dL (74-99); Lipase 128 U/L (23-300); Magnesium 1.9 mg/dL (1.6-2.3); Non-African American GFR(CKD) >90 (>60 ml/min/1.73 sqM); Potassium 3.9 mmol/L (3.5-5.1); Sodium 137 mmol/L (137-145); Total Bilirubin 0.5 mg/dL (0.2-1.3); Total Protein 6.1 g/dL (6.3-8.2)
[2021-03-22 02:05] LABS: INR 1.1 (<1.2); Prothrombin Time 11.5 sec (9.0-12.0)
[2021-03-22 02:23] LABS: Partial Thromboplastin Time 20.8 sec (22.0-30.0)
[2021-03-22] MEDS ORDERED: FUROSEMIDE 10 MG/ML 2 ML VIAL IV STA (05:18)
[2021-03-22] MEDS ORDERED: MORPHINE SULFATE 4 MG/ML SYRINGE IV STA (05:54)
[2021-03-22 09:54] VITALS: BP 138/103; PULSE 87; RESP 16
== END 2021-03-22 09:54 | disposition home or self-care (01) ==
LOC: EC 22:13
DX: I11.0 Hypertensive heart disease with heart failure (principal); I50.9 Heart failure, unspecified; F17.200 Nicotine dependence, unspecified, uncomplicated; J44.9 Chronic obstructive pulmonary disease, unspecified; G43.909 Migraine, unspecified, not intractable, without status migrainosus; Z88.6 Allergy status to analgesic agent; Z88.8 Allergy status to other drugs, medicaments and biological substances; Z79.82 Long term (current) use of aspirin
CPT/HCPCS: 36415; 93005; 83880; 80053; 82150; 83690; 83735; 84484; 85025; 85610; 85730; 71046; 99285; 96374; 96375; J2270; J1940

== ENCOUNTER 2021-03-31 19:58 | Emergency (ER) | payer OTHER ==
[2021-03-31 20:03] VITALS: RESP 18; TEMP 97.8
[2021-03-31] MEDS ORDERED: MORPHINE SULFATE 4 MG/ML SYRINGE IV STA (20:34)
[2021-03-31] MEDS ORDERED: ONDANSETRON 4 MG/2 ML VIAL IVP STA (20:34)
[2021-03-31] MEDS ORDERED: SODIUM CHLORIDE 0.9% 500 ML 500 ML IV STA (20:34)
--- NOTE | 2021-03-31 21:12 | XR ---
EXAMINATION TYPE: XR chest 2V DATE OF EXAM: 03/31/2021 COMPARISON: 03/22/2021 HISTORY: Chest pain TECHNIQUE: 2 views FINDINGS: There is no heart failure nor confluent pneumonic infiltrate. Costophrenic angles are clear . There are chest leads. Bony thorax is intact. IMPRESSION: No active cardiopulmonary disease. Normal heart. No change.
[2021-03-31 21:15] LABS: Basophils # (A) 0.1 k/uL (0-0.2); Basophils % (A) 1 %; Eosinophils # (A) 0.5 k/uL (0-0.7); Eosinophils % (A) 6 %; HCT 44.1 % (39.0-53.0); HGB 14.9 gm/dL (13.0-17.5); Lymphocytes # (A) 1.4 k/uL (1.0-4.8); Lymphocytes % (A) 16 %; MCH 30.8 pg (25.0-35.0); MCHC 33.8 g/dL (31.0-37.0); Mean Platelet Volume 8.6; Monocytes # (A) 0.5 k/uL (0-1.0); Monocytes % (A) 6 %; Neutrophils # (A) 6.2 k/uL (1.3-7.7); Neutrophils % (A) 71 %; Platelet Count 185 k/uL (150-450); RBC 4.85 m/uL (4.30-5.90); RDW 13.4 % (11.5-15.5); WBC 8.8 k/uL (3.8-10.6)
[2021-03-31 21:28] LABS: Partial Thromboplastin Time 23.4 sec (22.0-30.0); Prothrombin Time 10.9 sec (9.0-12.0)
--- NOTE | 2021-03-31 21:32 | ED ---
General Adult HPI - General Chief complaint: Chest Pain Stated complaint: Chest Pain Time Seen by Provider: 03/31/21 20:25 Source: patient Mode of arrival: wheelchair Limitations: no limitations - History of Present Illness Initial comments: 50 year-old male patient presents to the emergency department for evaluation of chest pain and abdominal pain. Patient states it has been going on for a long time but worsened today. States he had a cardiac catheterization recently that was negative. States they cannot find out what is wrong with his abdomen. De nies alcohol use. Denies any nausea or vomiting. Denies constipation or diarrhea. Denies difficulty with urination. She is having some shortness of breath. Does have a history of heart failure. States he is taking his medications as directed. Patient denies any recent rash, fever, chills, cough, diarrhea, constipation, back pain, numbness, tingling, dizziness, weakness, hematuria, dysuria, urinary urgency, urinary frequency, headache, visual changes, or any other complaints. - Related Data Home Medications Medication Instructions Recorded Confirmed Aspirin EC [Ecotrin Low Dose] 81 mg PO DAILY 03/17/21 03/31/21 Previous Rx's Medication Instructions Recorded Atorvastatin [Lipitor] 20 mg PO HS #30 tab 03/01/21 Metoprolol Tartrate [Lopressor] 25 mg PO BID #30 tab 03/01/21 Sucralfate [Carafate] 1 gm PO AC-TID #30 tab 03/01/21 lisinopriL [Zestril] 10 mg PO DAILY #30 tab 03/01/21 Furosemide [Lasix] 40 mg PO BID #60 tablet 03/19/21 Spironolactone [Aldactone] 25 mg PO DAILY #30 tab 03/19/21 Allergies Allergy/AdvReac Type Severity Reaction Status Date / Time ibuprofen [From Motrin] AdvReac Nausea & Verified 03/31/21 22:20 Vomiting simvastatin [From Zocor] AdvReac Dizziness Verified 03/31/21 22:20 Review of Systems ROS Statement: Those systems with pertinent positive or pertinent negative responses have been documented in the HPI. ROS Other: All systems not noted in ROS Statement are negative. Past Medical History Past Medical History: Atrial Fibrillation, COPD, Hyperlipidemia, Hypertension, Pneumonia Additional Past Medical History / Comment(s): Other HX; Costochondritis, chronic pain, chronic low back pain with bilateral sciatica, neuropathy bilateral hands/feet, migraines, kidney stones, past partial small bowel obstruction. HTN the last 10 yrs Stopped taking meds 5 yrs ago. COPD due to tobacco use. MArijuna use 3 -4 times a week - Smoke it History of Any Multi-Drug Resistant Organisms: None Reported, MRSA Date of last positivie culture/infection: 04/10/18 MDRO Source:: TOE Past Surgical History: Heart Catheterization, Orthopedic Surgery Additional Past Surgical History / Comment(s): 03/14/18 Cardiac cath-normal coronaries, L shoulder rotator cuff repair x2, cervical injection. Past Anesthesia/Blood Transfusion Reactions: No Reported Reaction Past Psychological History: Anxiety, Bipolar, Depression, Schizophrenia Smoking Status: Current every day smoker Past Alcohol Use History: None Reported Past Drug Use History: Marijuana, Prescription Drug Abuse - Past Family History Father Family Medical History: Myocardial Infarction ([place]) Additional Family Medical History / Comment(s): mi at age 35, still living Mother Family Medical History: Myocardial Infarction ([place]) Additional Family Medical History / Comment(s): Mother has had at least one [place]- pt unsure at what age. He has not had much contact with his mother since he was 17 yrs old. General Exam Limitations: no limitations General appearance: alert, in no apparent distress, other (This is a well- developed, well-nourished, nontoxic-appearing adult male in no acute distress. ) Eye exam: Present: normal appearance, PERRL, EOMI. Absent: scleral icterus, conjunctival injection, periorbital swelling ENT exam: Present: normal exam, normal oropharynx, mucous membranes moist Respiratory exam: Present: normal lung sounds bilaterally. Absent: respiratory distress, wheezes, rales, rhonchi, stridor Cardiovascular Exam: Present: normal rhythm, tachycardia, normal heart sounds. Absent: systolic murmur, diastolic murmur, rubs, gallop, clicks GI/Abdominal exam: Present: soft, tenderness (Right upper quadrant, right lower quadrant), normal bowel sounds. Absent: distended, guarding, rebound, rigid Neurological exam: Present: alert, oriented X3, CN II-XII intact Psychiatric exam: Present: normal affect, normal mood Skin exam: Present: warm, dry, intact, normal color. Absent: rash Course Vital Signs 03/31/21 03/31/21 20:00 22:14 Temperature 97.8 F Pulse Rate 124 H 105 H Respiratory 18 18 Rate Blood Pressure 140/89 153/112 O2 Sat by Pulse 99 98 Oximetry EKG Findings - EKG Comments: EKG Findings:: EKG obtained at 2007 shows sinus tachycardia with a ventricular rate of 109, VA interval 184, QRS duration 88, QT 362, QTc 487. No evidence of ST elevation or depression. Medical Decision Making - Medical Decision Making 50-year-old male patient presents to emergency department for evaluation of chest pain and abdominal pain. States the pain is been going on for a long time ago got worse today. Physical examination did reveal some right-sided abdominal tenderness. Lungs are clear to auscultation with good air movement. Chest x- ray was negative. Labs reviewed and were unremarkable. Did review reports a recent visit was showed a clear cardiac catheterization on 03/24/2021, also had recent HIDA scan which was negative. I did discuss findings and results with him. He'll be discharged follow up with his primary care physician for recheck in 1-2 days. Return parameters were discussed in detail. He verbalizes understanding and agrees with this plan. Case discussed with my attending Dr. Vargas. - Lab Data Result diagrams: 03/31/21 20:53 03/31/21 20:53 Lab Results 03/31/21 03/31/21 03/31/21 Range/Units 20:53 20:53 20:53 WBC 8.8 (3.8-10.6) k/uL RBC 4.85 (4.30-5.90) m/uL Hgb 14.9 (13.0-17.5) gm/dL Hct 44.1 (39.0-53.0) % MCV 91.0 (80.0-100.0) fL MCH 30.8 (25.0-35.0) pg MCHC 33.8 (31.0-37.0) g/dL RDW 13.4 (11.5-15.5) % Plt Count 185 (150-450) k/uL MPV 8.6 Neutrophils % 71 % Lymphocytes % 16 % Monocytes % 6 % Eosinophils % 6 % Basophils % 1 % Neutrophils # 6.2 (1.3-7.7) k/uL Lymphocytes # 1.4 (1.0-4.8) k/uL Monocytes # 0.5 (0-1.0) k/uL Eosinophils # 0.5 (0-0.7) k/uL Basophils # 0.1 (0-0.2) k/uL PT 10.9 (9.0-12.0) sec INR 1.0 (<1.2) APTT 23.4 (22.0-30.0) sec Sodium 137 (137-145) mmol/L Potassium 3.9 (3.5-5.1) mmol/L Chloride 108 H (98-107) mmol/L Carbon Dioxide 21 L (22-30) mmol/L Anion Gap 8 mmol/L BUN 15 (9-20) mg/dL Creatinine 0.95 (0.66-1.25) mg/dL Est GFR (CKD-EPI)AfAm >90 (>60 ml/min/1.73 sqM) Est GFR (CKD-EPI)NonAf >90 (>60 ml/min/1.73 sqM) Glucose 95 (74-99) mg/dL Calcium 8.7 (8.4-10.2) mg/dL Magnesium 1.7 (1.6-2.3) mg/dL Total Bilirubin 0.6 (0.2-1.3) mg/dL AST 37 (17-59) U/L ALT 23 (4-49) U/L Alkaline Phosphatase 81 (38-126) U/L Troponin I (0.000-0.034) ng/mL Total Protein 6.3 (6.3-8.2) g/dL Albumin 3.4 L (3.5-5.0) g/dL Lipase 232 (23-300) U/L 03/31/ Range/Units 20:53 WBC (3.8-10.6) k/uL RBC (4.30-5.90) m/uL Hgb (13.0-17.5) gm/dL Hct (39.0-53.0) % MCV (80.0-100.0) fL MCH (25.0-35.0) pg MCHC (31.0-37.0) g/dL RDW (11.5-15.5) % Plt Count (150-450) k/uL MPV Neutrophils % % Lymphocytes % % Monocytes % % Eosinophils % % Basophils % % Neutrophils # (1.3-7.7) k/uL Lymphocytes # (1.0-4.8) k/uL Monocytes # (0-1.0) k/uL Eosinophils # (0-0.7) k/uL Basophils # (0-0.2) k/uL PT (9.0-12.0) sec INR (<1.2) APTT (22.0-30.0) sec Sodium (137-145) mmol/L Potassium (3.5-5.1) mmol/L Chloride (98-107) mmol/L Carbon Dioxide (22-30) mmol/L Anion Gap mmol/L BUN (9-20) mg/dL Creatinine (0.66-1.25) mg/dL Est GFR (CKD-EPI)AfAm (>60 ml/min/1.73 sqM) Est GFR (CKD-EPI)NonAf (>60 ml/min/1.73 sqM) Glucose (74-99) mg/dL Calcium (8.4-10.2) mg/dL Magnesium (1.6-2.3) mg/dL Total Bilirubin (0.2-1.3) mg/dL AST (17-59) U/L ALT (4-49) U/L Alkaline Phosphatase (38-126) U/L Troponin I <0.012 (0.000-0.034) ng/mL Total Protein (6.3-8.2) g/dL Albumin (3.5-5.0) g/dL Lipase (23-300) U/L - Radiology Data Radiology results: report reviewed, image reviewed Review x-ray of the chest is obtained. Report reviewed in its entirety. Impression by Dr. Grant shows no active cardiopulmonary disease. Normal heart. No change. Disposition Clinical Impression: Chest pain, Abdominal pain Disposition: HOME SELF-CARE Condition: Good Instructions (If sedation given, give patient instructions): Chest Pain (ED), Abdominal Pain (ED) Additional Instructions: Follow-up with your primary care physician for recheck in 1-2 days. Return for any new, worsening, or concerning symptoms. Is patient prescribed a controlled substance at d/c from ED?: No Referrals: None,Stated [Primary Care Provider] - 1-2 days Time of Disposition: 22:34
[2021-03-31 21:33] LABS: ALT 23 U/L (4-49); AST 37 U/L (17-59); African American GFR (CKD) >90 (>60 ml/min/1.73 sqM); Albumin 3.4 g/dL (3.5-5.0); Alkaline Phosphatase 81 U/L (38-126); Anion Gap 8 mmol/L; Blood Urea Nitrogen 15 mg/dL (9-20); Calcium 8.7 mg/dL (8.4-10.2); Carbon Dioxide 21 mmol/L (22-30); Chloride 108 mmol/L (98-107); Glucose 95 mg/dL (74-99); Lipase 232 U/L (23-300); Magnesium 1.7 mg/dL (1.6-2.3); Non-African American GFR(CKD) >90 (>60 ml/min/1.73 sqM); Potassium 3.9 mmol/L (3.5-5.1); Sodium 137 mmol/L (137-145); Total Bilirubin 0.6 mg/dL (0.2-1.3); Total Protein 6.3 g/dL (6.3-8.2)
[2021-03-31] MEDS ORDERED: lisinopriL 10 MG TAB PO STA (22:08)
[2021-03-31] MEDS ORDERED: MORPHINE SULFATE 4 MG/ML SYRINGE IVP STA (22:09)
[2021-03-31 22:15] VITALS: BP 153/112; PULSE 105
== END 2021-03-31 22:54 | disposition home or self-care (01) ==
LOC: EC 19:58
DX: R07.9 Chest pain, unspecified (principal); R10.9 Unspecified abdominal pain; R06.02 Shortness of breath; J44.9 Chronic obstructive pulmonary disease, unspecified; I10 Essential (primary) hypertension; I48.91 Unspecified atrial fibrillation; F17.200 Nicotine dependence, unspecified, uncomplicated; Z88.8 Allergy status to other drugs, medicaments and biological substances; Z88.6 Allergy status to analgesic agent; Z79.82 Long term (current) use of aspirin
CPT/HCPCS: 36415; 93005; 80053; 83690; 83735; 84484; 85025; 85610; 85730; 71046; 99285; 96361; 96374; 96375; 96376; J2270; J2405

== ENCOUNTER 2021-04-06 21:34 | Emergency (ER) | payer OTHER ==
[2021-04-06 21:56] VITALS: TEMP 98.6
--- NOTE | 2021-04-06 23:07 | XR ---
EXAMINATION TYPE: XR chest 2V DATE OF EXAM: 04/06/2021 COMPARISON: 03/31/2021 HISTORY: Chest pain TECHNIQUE: FINDINGS: There is no heart failure nor confluent pneumonic infiltrate. Costophrenic angles are clear . There are no hilar masses. Bony thorax is intact. IMPRESSION: No active cardiopulmonary disease. No change.
[2021-04-07 00:53] LABS: Basophils # (A) 0.1 k/uL (0-0.2); Basophils % (A) 1 %; Eosinophils # (A) 0.6 k/uL (0-0.7); Eosinophils % (A) 8 %; HCT 43.9 % (39.0-53.0); HGB 15.2 gm/dL (13.0-17.5); Lymphocytes # (A) 1.8 k/uL (1.0-4.8); Lymphocytes % (A) 24 %; MCH 31.5 pg (25.0-35.0); MCHC 34.7 g/dL (31.0-37.0); Mean Platelet Volume 8.5; Monocytes # (A) 0.8 k/uL (0-1.0); Monocytes % (A) 10 %; Neutrophils # (A) 4.2 k/uL (1.3-7.7); Neutrophils % (A) 54 %; Platelet Count 226 k/uL (150-450); RBC 4.82 m/uL (4.30-5.90); RDW 13.3 % (11.5-15.5); WBC 7.7 k/uL (3.8-10.6)
[2021-04-07 00:54] LABS: INR 1.1 (<1.2); Prothrombin Time 11.7 sec (9.0-12.0)
[2021-04-07] MEDS ORDERED: ASPIRIN 81 MG PO STA (01:01)
[2021-04-07] MEDS ORDERED: MORPHINE SULFATE 4 MG/ML SYRINGE IVP STA ×2 (01:01→02:47)
[2021-04-07 01:09] LABS: ALT 26 U/L (4-49); AST 39 U/L (17-59); African American GFR (CKD) >90 (>60 ml/min/1.73 sqM); Albumin 3.6 g/dL (3.5-5.0); Alkaline Phosphatase 93 U/L (38-126); Anion Gap 9 mmol/L; Blood Urea Nitrogen 19 mg/dL (9-20); Calcium 9.2 mg/dL (8.4-10.2); Carbon Dioxide 24 mmol/L (22-30); Chloride 103 mmol/L (98-107); Glucose 88 mg/dL (74-99); Non-African American GFR(CKD) >90 (>60 ml/min/1.73 sqM); Potassium 4.2 mmol/L (3.5-5.1); Sodium 136 mmol/L (137-145); Total Bilirubin 0.6 mg/dL (0.2-1.3); Total Protein 6.9 g/dL (6.3-8.2)
[2021-04-07 01:57] LABS: Magnesium 1.7 mg/dL (1.6-2.3)
--- NOTE | 2021-04-07 02:09 | ED ---
Chest Pain HPI - General Chief Complaint: Chest Pain Stated Complaint: Chest Pain Time Seen by Provider: 04/07/21 00:35 Source: patient, family, RN notes reviewed Mode of arrival: ambulatory Limitations: no limitations - History of Present Illness Initial Comments: Patient is a 50-year-old male with history of A. fib, COPD, hypertension, presenting to emergency Department with complaints of continued chest pain and upper abdominal pain over the past week. Patient states he has been seen here previously for similar complaint, he had a recent heart cath on 03/24/2021 at which showed normal coronary arteries, nonischemic cardiomyopathy. Patient denies any fevers or chills. He does admit to some upper abdominal pain, they did evaluate his gallbladder why he was here, no acute process. Patient denies any vomiting, doesn't some nausea, no diarrhea. Patient denies any radiation of his chest pain. He has no further complaints. Patient has some mild tachycardia with pulse of 115, rest of vitals normal. - Related Data Home Medications Medication Instructions Recorded Confirmed Aspirin EC [Ecotrin Low Dose] 81 mg PO DAILY 03/17/21 03/31/21 Previous Rx's Medication Instructions Recorded Atorvastatin [Lipitor] 20 mg PO HS #30 tab 03/01/21 Metoprolol Tartrate [Lopressor] 25 mg PO BID #30 tab 03/01/21 Sucralfate [Carafate] 1 gm PO AC-TID #30 tab 03/01/21 lisinopriL [Zestril] 10 mg PO DAILY #30 tab 03/01/21 Furosemide [Lasix] 40 mg PO BID #60 tablet 03/19/21 Spironolactone [Aldactone] 25 mg PO DAILY #30 tab 03/19/21 Allergies Allergy/AdvReac Type Severity Reaction Status Date / Time ibuprofen [From Motrin] AdvReac Nausea & Verified 04/06/21 21:57 Vomiting simvastatin [From Zocor] AdvReac Dizziness Verified 04/06/21 21:57 Review of Systems ROS Statement: Those systems with pertinent positive or pertinent negative responses have been documented in the HPI. ROS Other: All systems not noted in ROS Statement are negative. EKG Findings - EKG Comments: EKG Findings:: Sinus tachycardia, minimal voltage criteria for LVH, nonspecific T-wave abnormalities, no signs of acute ST segment elevation. This is similar to previous on 03/31/2021. Ventricular rate 122, TX interval 162, QT 306. Past Medical History Past Medical History: Atrial Fibrillation, COPD, Hyperlipidemia, Hypertension, Pneumonia Additional Past Medical History / Comment(s): Other HX; Costochondritis, chronic pain, chronic low back pain with bilateral sciatica, neuropathy bilateral hands/feet, migraines, kidney stones, past partial small bowel obstruction. HTN the last 10 yrs Stopped taking meds 5 yrs ago. COPD due to tobacco use. MArijuna use 3 -4 times a week - Smoke it History of Any Multi-Drug Resistant Organisms: None Reported, MRSA Date of last positivie culture/infection: 04/10/18 MDRO Source:: TOE Past Surgical History: Heart Catheterization, Orthopedic Surgery Additional Past Surgical History / Comment(s): 03/14/18 Cardiac cath-normal coronaries, L shoulder rotator cuff repair x2, cervical injection. Past Anesthesia/Blood Transfusion Reactions: No Reported Reaction Past Psychological History: Anxiety, Bipolar, Depression, Schizophrenia Smoking Status: Current every day smoker Past Alcohol Use History: None Reported Past Drug Use History: Marijuana, Prescription Drug Abuse - Past Family History Father Family Medical History: Myocardial Infarction ([place]) Additional Family Medical History / Comment(s): mi at age 35, still living Mother Family Medical History: Myocardial Infarction ([place]) Additional Family Medical History / Comment(s): Mother has had at least one [place]- pt unsure at what age. He has not had much contact with his mother since he was 17 yrs old. General Exam - General Exam Comments Initial Comments: GENERAL: Patient is well-developed and well-nourished. Patient is nontoxic and in no acute distress. HEAD: Atraumatic, normocephalic. EYES: Pupils equal round and reactive to light, extraocular movements intact, sclera anicteric, conjunctiva are normal. Eyelids were unremarkable. ENT: Nares patent, oropharynx clear without exudates. Moist mucous membranes. NECK: Normal range of motion, supple without lymphadenopathy or JVD. LUNGS: Unlabored respirations. Breath sounds clear to auscultation bilaterally and equal. No wheezes rales or rhonchi. HEART: Regular rate and rhythm without murmurs, rubs or gallops. ABDOMEN: Soft, mild epigastric discomfort, no other areas of pain, normoactive bowel sounds. No guarding, no rebound. No masses appreciated. : Deferred MUSCULOSKELETAL: Normal extremities with adequate strength and normal range of motion, no pitting or edema. No clubbing or cyanosis. NEUROLOGICAL: Patient is alert and oriented x 3. Normal speech, normal gait. PSYCH: Normal mood, normal affect. SKIN: Warm, Dry, normal turgor, no rashes or lesions noted. Limitations: no limitations Course Vital Signs 04/06/21 04/07/21 04/07/21 21:55 00:29 02:00 Temperature 98.6 F Pulse Rate 115 H 111 H 122 H Respiratory 22 18 16 Rate Blood Pressure 140/88 139/100 192/123 O2 Sat by Pulse 99 100 97 Oximetry Chest [facility] Patient is a 50-year-old male with heart disease history, presenting with chest pain worsening over the past week. He has been seen here several times for similar complaint. He had a heart cath on 03/24/2021 which revealed normal coronary arteries. Patient's labs are unremarkable including a normal troponin, BNP. Patient was given pain control and has been resting comfortably. I did review his previous abdominal scans and heart workup. 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 He is agreeable to this. Patient stable for discharge. Return parameters were discussed with him and he verbalized understanding. Case discussed with Dr. Johnson. Disposition Clinical Impression: Abdominal pain, Atypical chest pain Disposition: HOME SELF-CARE Condition: Stable Instructions (If sedation given, give patient instructions): Abdominal Pain (ED) Additional Instructions: Please return to the Emergency Department if symptoms worsen or any other concerns. Follow-up with your doctors. Is patient prescribed a controlled substance at d/c from ED?: No Referrals: None,Stated [Primary Care Provider] - 1-2 days Time of Disposition: 03:21
[2021-04-07 03:27] VITALS: BP 143/100; PULSE 99; RESP 18
== END 2021-04-07 03:45 | disposition home or self-care (01) ==
LOC: EC 21:34
DX: R07.89 Other chest pain (principal); R10.10 Upper abdominal pain, unspecified; F17.200 Nicotine dependence, unspecified, uncomplicated; I10 Essential (primary) hypertension; J44.9 Chronic obstructive pulmonary disease, unspecified; I48.91 Unspecified atrial fibrillation; G43.909 Migraine, unspecified, not intractable, without status migrainosus; Z88.6 Allergy status to analgesic agent; Z88.8 Allergy status to other drugs, medicaments and biological substances; Z79.82 Long term (current) use of aspirin; Z87.442 Personal history of urinary calculi
CPT/HCPCS: 36415; 93005; 83880; 80053; 83690; 83735; 84484; 85025; 85610; 71046; 99285; 96374; 96376; J2270

== ENCOUNTER 2021-04-10 22:32 | Emergency (ER) | payer OTHER ==
[2021-04-10 22:42] VITALS: TEMP 97.9
[2021-04-10] MEDS ORDERED: ASPIRIN 81 MG PO STA (22:45)
[2021-04-10] MEDS ORDERED: SODIUM CHLORIDE 0.9% 1,000 ML IV STA (22:45)
[2021-04-10 23:52] LABS: ALT 28 U/L (4-49); AST 39 U/L (17-59); African American GFR (CKD) >90 (>60 ml/min/1.73 sqM); Albumin 3.5 g/dL (3.5-5.0); Alkaline Phosphatase 90 U/L (38-126); Anion Gap 7 mmol/L; Blood Urea Nitrogen 10 mg/dL (9-20); Calcium 8.7 mg/dL (8.4-10.2); Carbon Dioxide 25 mmol/L (22-30); Chloride 105 mmol/L (98-107); Glucose 90 mg/dL (74-99); Lipase 66 U/L (23-300); Magnesium 1.7 mg/dL (1.6-2.3); Non-African American GFR(CKD) >90 (>60 ml/min/1.73 sqM); Potassium 4.5 mmol/L (3.5-5.1); Sodium 137 mmol/L (137-145); Total Bilirubin 0.9 mg/dL (0.2-1.3); Total Protein 6.5 g/dL (6.3-8.2)
--- NOTE | 2021-04-10 23:54 | XR ---
EXAMINATION TYPE: XR chest 2V DATE OF EXAM: 04/10/2021 COMPARISON: 04/06/2021 HISTORY: Chest pain TECHNIQUE: FINDINGS: Heart is normal. There is slight coarsening of the interstitial pulmonary markings. There a re chest leads. There is no pleural effusion. Bony thorax is intact. IMPRESSION: Mild increased interstitial markings compared to old exam. No heart failure seen.
[2021-04-10 23:58] LABS: Basophils # (A) 0.1 k/uL (0-0.2); Basophils % (A) 0 %; Eosinophils # (A) 0.4 k/uL (0-0.7); Eosinophils % (A) 4 %; HGB 15.1 gm/dL (13.0-17.5); Lymphocytes # (A) 1.5 k/uL (1.0-4.8); Lymphocytes % (A) 14 %; MCH 30.7 pg (25.0-35.0); MCHC 33.6 g/dL (31.0-37.0); MCV 91.5 fL (80.0-100.0); Mean Platelet Volume 8.6; Monocytes # (A) 0.7 k/uL (0-1.0); Monocytes % (A) 6 %; Neutrophils # (A) 7.9 k/uL (1.3-7.7); Neutrophils % (A) 75 %; Platelet Count 257 k/uL (150-450); RBC 4.92 m/uL (4.30-5.90); RDW 14.2 % (11.5-15.5); WBC 10.6 k/uL (3.8-10.6)
[2021-04-11] MEDS ORDERED: KETOROLAC 30 MG/ML 1 ML VIAL IVP STA
--- NOTE | 2021-04-11 00:03 | ED ---
Chest Pain HPI - General Chief Complaint: Chest Pain Stated Complaint: chest pain Time Seen by Provider: 04/10/21 22:45 Source: patient, RN notes reviewed Mode of arrival: ambulatory Limitations: no limitations - History of Present Illness Initial Comments: this a 50-year-old male presents emergency Department with chief complaint of cough congestion chest discomfort. Patient states symptoms started 3 days ago he has a productive cough. Patient states since fevers and chills. Patient states his has similar symptoms he has tested negative for COVID-19 3 times in the past has not tested since this illness started. Patient denies any radiating pain denies anynausea vomiting diarrhea constipation - Related Data Home Medications Medication Instructions Recorded Confirmed Aspirin EC [Ecotrin Low Dose] 81 mg PO DAILY 03/17/21 03/31/21 Previous Rx's Medication Instructions Recorded Atorvastatin [Lipitor] 20 mg PO HS #30 tab 03/01/21 Metoprolol Tartrate [Lopressor] 25 mg PO BID #30 tab 03/01/21 Sucralfate [Carafate] 1 gm PO AC-TID #30 tab 03/01/21 lisinopriL [Zestril] 10 mg PO DAILY #30 tab 03/01/21 Furosemide [Lasix] 40 mg PO BID #60 tablet 03/19/21 Spironolactone [Aldactone] 25 mg PO DAILY #30 tab 03/19/21 Allergies Allergy/AdvReac Type Severity Reaction Status Date / Time ibuprofen [From Motrin] AdvReac Nausea & Verified 04/06/21 21:57 Vomiting simvastatin [From Zocor] AdvReac Dizziness Verified 04/06/21 21:57 Review of Systems ROS Statement: Those systems with pertinent positive or pertinent negative responses have been documented in the HPI. ROS Other: All systems not noted in ROS Statement are negative. EKG Findings - EKG Comments: EKG Findings:: EKG performed at 23:11 sinus tachycardia rate of 105 PA 178 QRS 86 QT/ QTC 324/428 Past Medical History Past Medical History: Atrial Fibrillation, COPD, Hyperlipidemia, Hypertension, Pneumonia Additional Past Medical History / Comment(s): Other HX; Costochondritis, chronic pain, chronic low back pain with bilateral sciatica, neuropathy bilatera l hands/feet, migraines, kidney stones, past partial small bowel obstruction. HTN the last 10 yrs Stopped taking meds 5 yrs ago. COPD due to tobacco use. MArijuna use 3 -4 times a week - Smoke it History of Any Multi-Drug Resistant Organisms: None Reported, MRSA Date of last positivie culture/infection: 04/10/18 MDRO Source:: TOE Past Surgical History: Heart Catheterization, Orthopedic Surgery Additional Past Surgical History / Comment(s): 03/14/18 Cardiac cath-normal c oronaries, L shoulder rotator cuff repair x2, cervical injection. Past Anesthesia/Blood Transfusion Reactions: No Reported Reaction Past Psychological History: Anxiety, Bipolar, Depression, Schizophrenia Smoking Status: Current every day smoker Past Alcohol Use History: None Reported Past Drug Use History: Marijuana, Prescription Drug Abuse - Past Family History Father Family Medical History: Myocardial Infarction ([place]) Additional Family Medical History / Comment(s): mi at age 35, still living Mother Family Medical History: Myocardial Infarction (CT) Additional Family Medical History / Comment(s): Mother has had at least one CT- pt unsure at what age. He has not had much contact with his mother since he was 17 yrs old. General Exam Limitations: no limitations General appearance: alert, in no apparent distress Head exam: Present: atraumatic, normocephalic, normal inspection Eye exam: Present: normal appearance, PERRL, EOMI. Absent: scleral icterus, conjunctival injection, periorbital swelling ENT exam: Present: normal exam, normal oropharynx, mucous membranes moist Neck exam: Present: normal inspection, full ROM. Absent: tenderness, meningismus, lymphadenopathy Respiratory exam: Present: normal lung sounds bilaterally. Absent: respiratory distress, wheezes, rales, rhonchi, stridor Cardiovascular Exam: Present: normal rhythm, tachycardia, normal heart sounds. Absent: systolic murmur, diastolic murmur, rubs, gallop, clicks GI/Abdominal exam: Present: soft, normal bowel sounds. Absent: distended, tenderness, guarding, rebound, rigid Course Vital Signs 04/10/21 04/10/21 04/11/21 22:38 22:57 00:41 Temperature 97.9 F Pulse Rate 117 H 104 H Pulse Rate [ 101 H Overhead Foreman ] Respiratory 16 16 16 Rate Blood Pressure 145/98 144/108 O2 Sat by Pulse 98 95 Oximetry 04/11/21 02:31 Temperature Pulse Rate 101 H Pulse Rate [ Overhead Foreman ] Respiratory 18 Rate Blood Pressure 132/113 O2 Sat by Pulse 95 Oximetry Chest Pain MDM - MDM 42-year-old presented for URI symptoms, chest discomfort. Patient's initial troponin is minimally elevated, repeat troponin did improve, patient had cardiac cath 3 weeks ago which was cleaned patient will be discharged in stable condition patient is a viral URI. Disposition Clinical Impression: Atypical chest pain, Upper respiratory infection Disposition: HOME SELF-CARE Condition: Stable Instructions (If sedation given, give patient instructions): Upper Respiratory Infection (ED) Additional Instructions: Please return to the Emergency Department if symptoms worsen or any other concerns. Is patient prescribed a controlled substance at d/c from ED?: No Referrals: None,Stated [Primary Care Provider] - 1-2 days Time of Disposition: 03:14
[2021-04-11 00:05] LABS: INR 1.1 (<1.2); Partial Thromboplastin Time 22.2 sec (22.0-30.0); Prothrombin Time 11.6 sec (9.0-12.0)
[2021-04-11] MEDS ORDERED: MORPHINE SULFATE 4 MG/ML SYRINGE IVP STA (01:26)
[2021-04-11 02:32] VITALS: RESP 18
[2021-04-11 03:33] VITALS: BP 129/99; PULSE 102
== END 2021-04-11 03:33 | disposition home or self-care (01) ==
LOC: EC 22:32
DX: J06.9 Acute upper respiratory infection, unspecified (principal); F17.200 Nicotine dependence, unspecified, uncomplicated; J44.9 Chronic obstructive pulmonary disease, unspecified; I48.91 Unspecified atrial fibrillation; I10 Essential (primary) hypertension; Z88.6 Allergy status to analgesic agent; Z88.8 Allergy status to other drugs, medicaments and biological substances; Z79.82 Long term (current) use of aspirin; Z20.822 Contact with and (suspected) exposure to COVID-19
CPT/HCPCS: 36415 ×2; 93005; 83880; 80053; 83690; 83735; 84484 ×2; 85025; 85610; 85730; 87635; 71046; 99285; 96374; 96375; J2270; J1885

== ENCOUNTER 2021-04-20 12:14 | Observation (INO) | payer OTHER ==
[2021-04-20] MEDS ORDERED: NITROGLYCERIN OINT 1 INCH/GM PACKET TOPICAL STA (12:29)
[2021-04-20] MEDS ORDERED: ASPIRIN 81 MG PO STA (12:29)
--- NOTE | 2021-04-20 12:32 | ED ---
General Adult HPI - General Chief complaint: Chest Pain Stated complaint: Chest Pain Time Seen by Provider: 04/20/21 12:15 Source: patient, RN notes reviewed, old records reviewed Mode of arrival: EMS Limitations: no limitations - History of Present Illness Initial comments: This a 50-year-old male who has a past medical history significant for eye prot ection and smoking. Patient comes in complaining of chest pain. However. Patient states the radiation of pain. Patient states little bit short of breath. Patient denies any diaphoretic episodes. Patient denies any abdominal pain patient denies nausea vomiting diarrhea. Patient denies any ligh theadedness dizziness per patient denies headache patient denies numbness weakness. Patient states she's been here multiple times and recently had a cardiac catheterization was completely clean. - Related Data Home Medications Medication Instructions Recorded Confirmed Furosemide [Lasix] 20 mg PO BID 04/20/21 04/20/21 Allergies Allergy/AdvReac Type Severity Reaction Status Date / Time ibuprofen [From Motrin] AdvReac Nausea & Verified 04/20/21 15:32 Vomiting simvastatin [From Zocor] AdvReac Dizziness Verified 04/20/21 15:32 Review of Systems ROS Statement: Those systems with pertinent positive or pertinent negative responses have been documented in the HPI. ROS Other: All systems not noted in ROS Statement are negative. Past Medical History Past Medical History: Atrial Fibrillation, COPD, Hyperlipidemia, Hypertension, Pneumonia Additional Past Medical History / Comment(s): Other HX; Costochondritis, chronic pain, chronic low back pain with bilateral sciatica, neuropathy bilateral hands/feet, migraines, kidney stones, past partial small bowel obstruction. HTN the last 10 yrs Stopped taking meds 5 yrs ago. COPD due to tobacco use. MArijuna use 3 -4 times a week - Smoke it History of Any Multi-Drug Resistant Organisms: None Reported, MRSA Date of last positivie culture/infection: 04/10/18 MDRO Source:: TOE Past Surgical History: Heart Catheterization, Orthopedic Surgery Additional Past Surgical History / Comment(s): 03/14/18 Cardiac cath-normal coronaries, L shoulder rotator cuff repair x2, cervical injection. Past Anesthesia/Blood Transfusion Reactions: No Reported Reaction Past Psychological History: Anxiety, Bipolar, Depression, Schizophrenia Smoking Status: Current every day smoker Past Alcohol Use History: None Reported Past Drug Use History: Marijuana, Prescription Drug Abuse - Past Family History Father Family Medical History: Myocardial Infarction ([place]) Additional Family Medical History / Comment(s): mi at age 35, still living Mother Family Medical History: Myocardial Infarction ([place]) Additional Family Medical History / Comment(s): Mother has had at least one CA- pt unsure at what age. He has not had much contact with his mother since he was 17 yrs old. General Exam - General Exam Comments Initial Comments: GENERAL: Patient is well-developed and well-nourished. Patient is nontoxic and well- hydrated and is in no acute distress. ENT: Neck is soft and supple. No significant lymphadenopathy is noted. Oropharynx is clear. Moist mucous membranes. Neck has full range of motion without eliciting any pain. EYES: The sclera were anicteric and conjunctiva were pink and moist. Extraocular movements were intact and pupils were equal round and reactive to light. Eyelids were unremarkable. PULMONARY: Unlabored respirations. Good breath sounds bilaterally. No audible rales rho nchi or wheezing was noted. CARDIOVASCULAR: There is a regular rate and rhythm without any murmurs gallops or rubs. ABDOMEN: Soft and nontender with normal bowel sounds. SKIN: Skin is clear with no lesions or rashes and otherwise unremarkable. NEUROLOGIC: Patient is alert and oriented x3. Cranial nerves II through XII are grossly intact. Motor and sensory are also intact. Normal speech, volume and content. Symmetrical smile. MUSCULOSKELETAL: Normal extremities with adequate strength and full range of motion. No lower extremity swelling or edema. No calf tenderness. LYMPHATICS: No significant lymphadenopathy is noted PSYCHIATRIC: Normal psychiatric evaluation. Limitations: no limitations Course Vital Signs 04/20/21 04/20/21 04/20/21 12:17 12:53 13:55 Temperature 97.8 F Pulse Rate 98 100 Respiratory 15 17 18 Rate Blood Pressure 141/106 139/100 O2 Sat by Pulse 97 97 Oximetry 04/20/21 15:56 Temperature Pulse Rate 90 Respiratory 20 Rate Blood Pressure 140/100 O2 Sat by Pulse 100 Oximetry Medical Decision Making - Medical Decision Making EKG shows normal sinus rhythm at 93 bpm VT interval 170 QRS is 92 QT interval 416 QTC is 517 per patient's EKG shows no ST segment elevation or depression. Patient's troponin was elevated. Patient was started on heparin because of his elevated troponin chest pain. I spoke with Dr. Bianchi he agreed to admit the patient admitted the patient wrote admitting orders and continued heparin Nitropaste and 4. I consult to cardiology as well. - Lab Data Result diagrams: 04/20/21 12:38 04/20/21 12:38 Lab Results 04/20/21 04/20/21 12 Range/Units 12:38 12:38 12:38 WBC 7.2 (3.8-10.6) k/uL RBC 4.41 (4.30-5.90) m/uL Hgb 14.0 (13.0-17.5) gm/dL Hct 41.4 (39.0-53.0) % MCV 93.9 (80.0-100.0) fL MCH 31.7 (25.0-35.0) pg MCHC 33.7 (31.0-37.0) g/dL RDW 14.5 (11.5-15.5) % Plt Count 230 (150-450) k/uL MPV 7.7 Neutrophils % 63 % Lymphocytes % 18 % Monocytes % 12 % Eosinophils % 4 % Basophils % 1 % Neutrophils # 4.5 (1.3-7.7) k/uL Lymphocytes # 1.3 (1.0-4.8) k/uL Monocytes # 0.9 (0-1.0) k/uL Eosinophils # 0.3 (0-0.7) k/uL Basophils # 0.1 (0-0.2) k/uL PT 13.6 H (9.0-12.0) sec INR 1.3 H (<1.2) APTT 23.4 (22.0-30.0) sec Sodium 134 L (137-145) mmol/L Potassium 3.7 (3.5-5.1) mmol/L Chloride 103 (98-107) mmol/L Carbon Dioxide 22 (22-30) mmol/L Anion Gap 9 mmol/L BUN 20 (9-20) mg/dL Creatinine 0.93 (0.66-1.25) mg/dL Est GFR (CKD-EPI)AfAm >90 (>60 ml/min/1.73 sqM) Est GFR (CKD-EPI)NonAf >90 (>60 ml/min/1.73 sqM) Glucose 73 L (74-99) mg/dL Calcium 7.9 L (8.4-10.2) mg/dL Magnesium 1.7 (1.6-2.3) mg/dL Total Bilirubin 1.0 (0.2-1.3) mg/dL AST 96 H (17-59) U/L ALT 55 H (4-49) U/L Alkaline Phosphatase 100 (38-126) U/L Troponin I (0.000-0.034) ng/mL Total Protein 5.8 L (6.3-8.2) g/dL Albumin 2.9 L (3.5-5.0) g/dL Urine Opiates Screen (NotDetected) Ur Oxycodone Screen (NotDetected) Urine Methadone Screen (NotDetected) Ur Propoxyphene Screen (NotDetected) Ur Barbiturates Screen (NotDetected) U Tricyclic Antidepress (NotDetected) Ur Phencyclidine Scrn (NotDetected) Ur Amphetamines Screen (NotDetected) U Methamphetamines Scrn (NotDetected) U Benzodiazepines Scrn (NotDetected) Urine Cocaine Screen (NotDetected) U Marijuana (THC) Screen (NotDetected) 04/20/21 04/20/21 Range/Units 12:38 14:09 WBC (3.8-10.6) k/uL RBC (4.30-5.90) m/uL Hgb (13.0-17.5) gm/dL Hct (39.0-53.0) % MCV (80.0-100.0) fL MCH (25.0-35.0) pg MCHC (31.0-37.0) g/dL RDW (11.5-15.5) % Plt Count (150-450) k/uL MPV Neutrophils % % Lymphocytes % % Monocytes % % Eosinophils % % Basophils % % Neutrophils # (1.3-7.7) k/uL Lymphocytes # (1.0-4.8) k/uL Monocytes # (0-1.0) k/uL Eosinophils # (0-0.7) k/uL Basophils # (0-0.2) k/uL PT (9.0-12.0) sec INR (<1.2) APTT (22.0-30.0) sec Sodium (137-145) mmol/L Potassium (3.5-5.1) mmol/L Chloride (98-107) mmol/L Carbon Dioxide (22-30) mmol/L Anion Gap mmol/L BUN (9-20) mg/dL Creatinine (0.66-1.25) mg/dL Est GFR (CKD-EPI)AfAm (>60 ml/min/1.73 sqM) Est GFR (CKD-EPI)NonAf (>60 ml/min/1.73 sqM) Glucose (74-99) mg/dL Calcium (8.4-10.2) mg/dL Magnesium (1.6-2.3) mg/dL Total Bilirubin (0.2-1.3) mg/dL AST (17-59) U/L ALT (4-49) U/L Alkaline Phosphatase (38-126) U/L Troponin I 0.036 H* (0.000-0.034) ng/mL Total Protein (6.3-8.2) g/dL Albumin (3.5-5.0) g/dL Urine Opiates Screen Not Detected (NotDetected) Ur Oxycodone Screen Not Detected (NotDetected) Urine Methadone Screen Not Detected (NotDetected) Ur Propoxyphene Screen Not Detected (NotDetected) Ur Barbiturates Screen Not Detected (NotDetected) U Tricyclic Antidepress Not Detected (NotDetected) Ur Phencyclidine Scrn Not Detected (NotDetected) Ur Amphetamines Screen Detected H (NotDetected) U Methamphetamines Scrn Detected H (NotDetected) U Benzodiazepines Scrn Not Detected (NotDetected) Urine Cocaine Screen Not Detected (NotDetected) U Marijuana (THC) Screen Detected H (NotDetected) Critical Care Time Critical Care Time: Yes Total Critical Care Time: 35 Disposition Clinical Impression: Elevated troponin, Methamphetamine abuse, Unstable angina Disposition: ADMITTED IP TO THIS [facility] Time of Disposition: 15:18
[2021-04-20 13:02] LABS: INR 1.3 (<1.2); Partial Thromboplastin Time 23.4 sec (22.0-30.0); Prothrombin Time 13.6 sec (9.0-12.0)
[2021-04-20 13:13] LABS: Basophils # (A) 0.1 k/uL (0-0.2); Basophils % (A) 1 %; Eosinophils # (A) 0.3 k/uL (0-0.7); Eosinophils % (A) 4 %; HCT 41.4 % (39.0-53.0); Lymphocytes # (A) 1.3 k/uL (1.0-4.8); Lymphocytes % (A) 18 %; MCH 31.7 pg (25.0-35.0); MCHC 33.7 g/dL (31.0-37.0); MCV 93.9 fL (80.0-100.0); Mean Platelet Volume 7.7; Monocytes # (A) 0.9 k/uL (0-1.0); Monocytes % (A) 12 %; Neutrophils # (A) 4.5 k/uL (1.3-7.7); Neutrophils % (A) 63 %; Platelet Count 230 k/uL (150-450); RBC 4.41 m/uL (4.30-5.90); RDW 14.5 % (11.5-15.5); WBC 7.2 k/uL (3.8-10.6)
--- NOTE | 2021-04-20 13:19 | XR ---
EXAMINATION TYPE: XR chest 2V DATE OF EXAM: 04/20/2021 COMPARISON: 04/10/2021 TECHNIQUE: PA and lateral views submitted. HISTORY: Chest pain FINDINGS: Heart is enlarged and there is a coarsened interstitium. No pleural effusion or pneumothorax. No foca l pneumonia. Widening of left AC joint appears chronic. Atherosclerotic change aorta. Hypertrophic an d degenerative change of the spine. IMPRESSION: 1. Cardiomegaly correlate for improving interstitial pneumonitis.
[2021-04-20] MEDS ORDERED: HYDROmorphone 0.5 MG/0.5 ML SYRINGE IVP STA (13:23)
[2021-04-20 13:42] LABS: ALT 55 U/L (4-49); AST 96 U/L (17-59); African American GFR (CKD) >90 (>60 ml/min/1.73 sqM); Albumin 2.9 g/dL (3.5-5.0); Alkaline Phosphatase 100 U/L (38-126); Anion Gap 9 mmol/L; Blood Urea Nitrogen 20 mg/dL (9-20); Calcium 7.9 mg/dL (8.4-10.2); Carbon Dioxide 22 mmol/L (22-30); Chloride 103 mmol/L (98-107); Glucose 73 mg/dL (74-99); Magnesium 1.7 mg/dL (1.6-2.3); Non-African American GFR(CKD) >90 (>60 ml/min/1.73 sqM); Potassium 3.7 mmol/L (3.5-5.1); Sodium 134 mmol/L (137-145); Total Protein 5.8 g/dL (6.3-8.2)
[2021-04-20] MEDS ORDERED: HEPARIN SODIUM 1,000 UN/ML (10ML VL) IV ONE (15:19)
[2021-04-20] MEDS ORDERED: NITROGLYCERIN SL TABS 0.4 MG TAB SUBLINGUAL PRN (15:19)
[2021-04-20 15:26] LABS: Cocaine Screen,Urine Not Detected (NotDetected); Opiate Screen,Urine Not Detected (NotDetected); Phencyclidine Screen,Urine Not Detected (NotDetected); Urn Cannabinoid Scrn Detected (NotDetected)
[2021-04-20 15:27] LABS: Amphetamine Screen,Urine Detected (NotDetected); Barbiturate Screen,Urine Not Detected (NotDetected); Benzodiazepines Screen,Urine Not Detected (NotDetected); Methadone Screen, Urine Not Detected (NotDetected); Oxycodone Screen, Urine Not Detected (NotDetected); Tricyclic Antidepressant,Urine Not Detected (NotDetected)
[2021-04-20] MEDS ORDERED: HEPARIN SOD,PORK IN 0.45% NACL 25,000 UNIT in 0.45% NACL 1 250ML.BAG IV SCH (15:30)
[2021-04-20] MEDS ORDERED: TEMAZEPAM 15 MG CAP PO PRN (16:16)
[2021-04-20] MEDS ORDERED: ALPRAZolam 0.25 MG TAB PO PRN (16:16)
--- NOTE | 2021-04-20 17:15 | HP ---
HISTORY AND PHYSICAL DATE OF SERVICE: 04/20/2021. CHIEF COMPLAINT: Chest pain. HISTORY OF PRESENT ILLNESS: This 50-year-old gentleman with a past medical history of atrial fibrillation, COPD, hypertension, hyperlipidemia, history of pneumonia, history of anxiety, bipolar depression, schizophrenia, being followed by no primary physician in the outpatient setting apparently was complaining of chest pain. The pain is felt in the anterior part of chest which is radiating to the back, more sharp in character according to the patient. The troponin was slightly elevated and patient admitted for further evaluation and treatment. The patient apparently had a cardiac catheterization last done by Cardiology which showed new onset nonischemic cardiomyopathy and normal coronary arteries, elevated LV end-diastolic pressure. Most recent 2D echocardiogram done on February 2021 showed ejection fraction about 20-25 percent. The patient admitted for further evaluation and treatment. There is no history of fever, rigors. No history of headache, loss of consciousness, seizures. PAST MEDICAL HISTORY: History of atrial fibrillation, COPD, hypertension, history of nonischemic cardiomyopathy. MEDICATIONS: Prior to admission include home medications are: Lasix 20 mg p.o. b.i.d. ALLERGIES: ASPIRIN, HEPARIN AND NITRO. FAMILY HISTORY: Sister myocardial infarction at the age of 35. SOCIAL HISTORY: History of smoking, history of THC, history of prescription drug abuse. REVIEW OF SYSTEMS: ENT: No diminished vision. No diminished hearing. CARDIOVASCULAR system: As mentioned earlier. RESPIRATORY: As mentioned earlier. GI: No nausea. No vomiting. : No dysuria. NERVOUS SYSTEM: No numbness or weakness. ALLERGY/IMMUNOLOGY: No asthma or hayfever. MUSCULOSKELETAL: As mentioned earlier. HEMATOLOGY/ONCOLOGY: No history of anemia. ENDOCRINE: No history of diabetes or hypothyroidism. CONSTITUTIONAL: As mentioned earlier. DERMATOLOGY: Negative. RHEUMATOLOGY: Negative. PSYCHIATRIC: As mentioned earlier. PHYSICAL EXAMINATION: Alert and oriented times three. Pulse 90. Blood pressure 140/100. Respiration 20. Temperature 97.8. Pulse ox 100 percent on room air. HEENT: Conjunctivae normal. Oral mucosa moist. NECK: No jugular venous distention. No carotid bruit. No lymph node enlargement. CARDIOVASCULAR system: S1-S2 muffled. RESPIRATION: Breath sounds diminished in the bases. A few scattered rhonchi and crackles. ABDOMEN: Soft, nontender. No mass palpable. LEGS: No edema. No swelling. NERVOUS SYSTEM: Higher functions as mentioned earlier. Moves all 4 limbs. No focal motor or sensory deficits. LYMPHATICS: No lymph nodes palpable in the neck, axillae or groin. SKIN: No ulcer, no rashes and no bleeding. JOINTS: No active deforming arthropathy. LABS: CBC within normal limits. INR is 1.2 sodium 134. Glucose 73. Calcium 7.9, AST 96, ALT is 55. Troponin 0.036. ASSESSMENT: 1. Chest pain possible unstable angina. Rule out acute [id number]-elevation myocardial infarction. 2. Troponin 0.036. 3. History of recent troponin elevations and negative cardiac cath. 4. History of recent nonischemic cardiomyopathy with ejection fraction about 20 to 25%. 5. Elevated AST/ALT possibly hepatitis, of undetermined etiology. 6. Hypoalbuminemia with mild protein-calorie malnutrition. 7. Hyponatremia. 8. History atrial fibrillation. 9. History of chronic obstructive pulmonary disease. 10.Hypertension. 11.History of hyperlipidemia. 12.History of pneumonia. 13.History of costochondritis. 14.History of migraines. 15.History of nephrolithiasis. 16.Hypertension. 17.History of MRSA. 18.History of anxiety, bipolar, depression, schizophrenia. 19.Obesity with body mass of 34. 20.Amphetamine methamphetamine, marijuana positive in the drug screen. 21.FULL CODE. RECOMMENDATIONS AND DISCUSSION: This 50-year-old gentleman who presented with multiple complex medical issues, at this time, we will monitor the patient closely. Continue the current medications, management and symptomatic treatment. Otherwise, at this time, I recommend cardiac consultation, unstable angina protocol, repeat labs, symptomatic treatment. Prognosis guarded because of multiple complex medical issues. Also recommend the patient follow up with primary physician in the outpatient setting closely. Discussed with the patient and family at the bedside. Understands and agrees. MMODL / IJN: [id number] / KIT
[2021-04-20] MEDS: NITROGLYCERIN OINT 1 INCH/GM PACKET TOPICAL SCH ×2 (17:18→22:55)
[2021-04-20] MEDS: FUROSEMIDE 20 MG TAB PO SCH (17:24)
[2021-04-20] MEDS: HYDROcodone/APAP 5-325MG 1 EACH TAB PO PRN (17:24)
[2021-04-20] MEDS: NICOTINE 14MG/24HR PATCH TRANSDERM SCH ×2 (17:24→17:25)
[2021-04-20 21:35] VITALS: RESP 18
[2021-04-21] MEDS: HYDROcodone/APAP 5-325MG 1 EACH TAB PO PRN ×2 (04:30→11:30)
[2021-04-21 05:51] LABS: Basophils # (A) 0.1 k/uL (0-0.2); Basophils % (A) 1 %; Eosinophils # (A) 0.4 k/uL (0-0.7); Eosinophils % (A) 7 %; HCT 43.3 % (39.0-53.0); HGB 14.2 gm/dL (13.0-17.5); Lymphocytes # (A) 1.5 k/uL (1.0-4.8); Lymphocytes % (A) 25 %; MCH 31.4 pg (25.0-35.0); MCHC 32.8 g/dL (31.0-37.0); MCV 95.6 fL (80.0-100.0); Mean Platelet Volume 7.8; Monocytes # (A) 0.5 k/uL (0-1.0); Monocytes % (A) 9 %; Neutrophils # (A) 3.3 k/uL (1.3-7.7); Neutrophils % (A) 55 %; Platelet Count 232 k/uL (150-450); RBC 4.53 m/uL (4.30-5.90); RDW 14.6 % (11.5-15.5)
[2021-04-21 06:07] LABS: African American GFR (CKD) >90 (>60 ml/min/1.73 sqM); Anion Gap 8 mmol/L; Blood Urea Nitrogen 22 mg/dL (9-20); Calcium 8.3 mg/dL (8.4-10.2); Carbon Dioxide 23 mmol/L (22-30); Chloride 103 mmol/L (98-107); Glucose 88 mg/dL (74-99); Non-African American GFR(CKD) >90 (>60 ml/min/1.73 sqM); Sodium 134 mmol/L (137-145)
[2021-04-21] MEDS: NITROGLYCERIN OINT 1 INCH/GM PACKET TOPICAL SCH (06:26)
[2021-04-21] MEDS ORDERED: PANTOPRAZOLE 40 MG TABLET PO SCH (07:30)
[2021-04-21] MEDS: FUROSEMIDE 20 MG TAB PO SCH ×2 (08:42→15:29)
[2021-04-21] MEDS: NICOTINE 14MG/24HR PATCH TRANSDERM SCH (08:43)
[2021-04-21] MEDS ORDERED: METOPROLOL TARTRATE 25 MG TAB PO SCH (09:00)
[2021-04-21] MEDS ORDERED: lisinopriL 5 MG TAB PO SCH (09:00)
[2021-04-21] MEDS ORDERED: SPIRONOLACTONE 25 MG TAB PO SCH (09:00)
[2021-04-21] MEDS ORDERED: ASPIRIN 325 MG TAB PO SCH (09:00)
--- NOTE | 2021-04-21 09:16 | P.CRDCN ---
History of Present Illness Consult date: 04/21/21 Requesting physician: Cristy Bianchi Reason for Consult (text): chest pain, elevated troponin Chief complaint: chest pain History of present illness: This is a 50-year-old gentleman who follows with Dr. Owens but has not been seen in the office since 2019. Has a history of smoking, nonischemic cardiomyopathy and drug abuse he has apparently been using methamphetamines over the last year. He also has a remote history of paroxysmal atrial fibrillation and has not been anticoagulated. His CHADS VASC is 1. Recently he has become homeless after losing his job is also lost his vehicle. Was recently admitted in February of this year with complaints of chest discomfort echocardiogram at that time showed severely impaired LV systolic function with an ejection fraction between 20-25%, severely enlarged RV, severe mitral regurgitation, severe tricuspid regurgitation, severe pulmonary hypertension with an RVSP of 77 mmHg. He underwent heart catheterization at that time which showed normal coronary arteries with elevated LVEDP, nonischemic cardiomyopathy. He presented this admission with complaints of chest discomfort which has been quite constant and worsens with deep inspiration. Labs on admission showed troponin 0.036, 0.027 0.027. Urine drug screen was positive for marijuana, methamphetamines and amphetamines. He admits to using meth 4 days ago. He's been initiated on IV heparin and Nitropaste. Continues to have complaints of chest discomfort. That is constant and worsens with deep inspiration. Patient admits to running out of his medications except for Lasix which she continues to take regularly. He states he ran out and does not have a primary care physician and therefore was unable to get refills. He did not keep his follow-up appointment with Dr. Owens as scheduled. At the time of my examination the patient is sitting in a chair does not appear to be in any acute distress. Complains of lower extremity edema which is chronic and ongoing for several years. Complains of shortness of breath he has recently cut back on his smoking to half a pack a day. Complains of occasional palpitations does not feel that this is related to his drug abuse. Past Medical History Past Medical History: Atrial Fibrillation, COPD, Hyperlipidemia, Hypertension, Pneumonia Additional Past Medical History / Comment(s): Other HX; Costochondritis, chronic pain, chronic low back pain with bilateral sciatica, neuropathy bilateral hands/feet, migraines, kidney stones, past partial small bowel obstruction. HTN the last 10 yrs Stopped taking meds 5 yrs ago. COPD due to tobacco use. MArijuna use 3 -4 times a week - Smoke it History of Any Multi-Drug Resistant Organisms: None Reported, MRSA Date of last positivie culture/infection: 04/10/18 MDRO Source:: TOE Past Surgical History: Heart Catheterization, Orthopedic Surgery Additional Past Surgical History / Comment(s): 03/14/18 Cardiac cath-normal coronaries, L shoulder rotator cuff repair x2, cervical injection. Past Anesthesia/Blood Transfusion Reactions: No Reported Reaction Past Psychological History: Anxiety, Bipolar, Depression, Schizophrenia Additional Psychological History / Comment(s): Pt was on Mental Health 2 years ago at [facility] for suicidal ideation - Not seeing anyone currently Smoking Status: Current every day smoker Past Alcohol Use History: None Reported Additional Past Alcohol Use History / Comment(s): Started smoking at age 15- smoked 1 ppd but has cut down to one pack a day Past Drug Use History: Marijuana, Prescription Drug Abuse Additional Drug Use History / Comment(s): Pt smokes marijuana on occasion. - Past Family History Father Family Medical History: Myocardial Infarction ([place]) Additional Family Medical History / Comment(s): mi at age 35, still living Mother Family Medical History: Myocardial Infarction ([place]) Additional Family Medical History / Comment(s): Mother has had at least one HI- pt unsure at what age. He has not had much contact with his mother since he was 17 yrs old. Medications and Allergies Home Medications Medication Instructions Recorded Confirmed Type Furosemide [Lasix] 20 mg PO BID 04/20/21 04/20/21 History Allergies Allergy/AdvReac Type Severity Reaction Status Date / Time ibuprofen [From Motrin] AdvReac Nausea & Verified 04/20/21 15:32 Vomiting simvastatin [From Zocor] AdvReac Dizziness Verified 04/20/21 15:32 Physical Exam Vitals: Vital Signs Temp Pulse Pulse Resp BP BP Pulse Ox 04/21/21 08:00 97.9 F 96 18 151/115 100 04/21/21 03:29 97.9 F 97 18 125/90 98 04/21/21 01:29 99 18 04/20/21 23:05 97.7 F 99 18 146/98 96 04/20/21 20:00 98.0 F 103 H 18 133/89 04/20/21 19:04 103 H 20 139/100 96 04/20/21 18:36 97.8 F 94 20 148/94 99 04/20/21 15:56 90 20 140/100 100 04/20/21 13:55 100 18 139/100 97 04/20/21 12:53 17 04/20/21 12:17 97.8 F 98 15 141/106 97 Intake and Output 04/20/21 04/21/21 04/21/21 22:59 06:59 14:59 Intake Total 70.202 108.731 Balance 70.202 108.731 Intake: IV 10 0.9 10 Intake, IV Titration 70.202 98.731 Amount Heparin Sod,Pork in 0.45% 70.202 98.731 NaCl 25,000 unit In 0.45 % NaCl 1 250ml.bag @ 9.59 UNITS/KG/HR 10.005 mls/ hr IV .Q24H [facility] Rx#: [id number] Other: Voiding Method Toilet Toilet # Voids 1 1 Weight 104.326 kg 105.2 kg PHYSICAL EXAMINATION: This is a 50-year-old male in no apparent distress at the time of my examination. VITAL SIGNS: Blood pressure 125/90, heart rate 97, respirations 18, temp 97.9F. Patient is 98 % on room air. HEENT: Head is atraumatic, normocephalic. Pupils are equal, round. Sclerae anicteric. Conjunctivae are clear. Mucous membranes of the mouth are moist. Neck is supple. There is no elevated jugular venous pressure. No carotid bruit is heard. CHEST EXAMINATION: Clear to auscultation bilaterally. No wheezes rales or rhonchi. Respirations even and nonlabored. HEART EXAMINATION: Heart regular, positive S1 and S2. No S3. No S4. With a holosystolic murmur at the apex. ABDOMEN: Soft, nontender. Bowel sounds are heard. No organomegaly noted. EXTREMITIES: 2+ peripheral pulses with evidence of mild peripheral edema and no calf tenderness noted. NEUROLOGIC EXAMINATION: Patient is awake, alert and oriented x3. Results 04/21/21 05:18 04/21/21 05:18 Cardiac Enzymes 04/20/21 04/20/21 04/20/21 Range/Units 12:38 12:38 17:26 AST 96 H (17-59) U/L Troponin I 0.036 H* 0.027 (0.000-0.034) ng/mL 04/20/21 Range/Units 20:33 AST (17-59) U/L Troponin I 0.027 (0.000-0.034) ng/mL Coagulation 04/20/21 04/20/21 04/21/21 Range/Units 12:38 21:55 05:18 PT 13.6 H (9.0-12.0) sec APTT 23.4 27.2 36.0 H (22.0-30.0) sec CBC 04/20/21 04/21/21 Range/Units 12:38 05:18 WBC 7.2 6.0 (3.8-10.6) k/uL RBC 4.41 4.53 (4.30-5.90) m/uL Hgb 14.0 14.2 (13.0-17.5) gm/dL Hct 41.4 43.3 (39.0-53.0) % Plt Count 230 232 (150-450) k/uL Comprehensive Metabolic Panel 04/20/21 04/21/21 Range/Units 12:38 05:18 Sodium 134 L 134 L (137-145) mmol/L Potassium 3.7 4.0 (3.5-5.1) mmol/L Chloride 103 103 (98-107) mmol/L Carbon Dioxide 22 23 (22-30) mmol/L BUN 20 22 H (9-20) mg/dL Creatinine 0.93 0.93 (0.66-1.25) mg/dL Glucose 73 L 88 (74-99) mg/dL Calcium 7.9 L 8.3 L (8.4-10.2) mg/dL AST 96 H (17-59) U/L ALT 55 H (4-49) U/L Alkaline Phosphatase 100 (38-126) U/L Total Protein 5.8 L (6.3-8.2) g/dL Albumin 2.9 L (3.5-5.0) g/dL Current Medications Generic Name Dose Route Start Last Admin Trade Name Freq PRN Reason Stop Dose Admin Hydrocodone Bitart/Acetaminophen 1 each 04/20/21 16:16 04/21/21 04:30 Hydrocodone/Apap 5-325mg 1 Each Tab PO 1 each Q6HR PRN Administration Pain Alprazolam 0.25 mg 04/20/21 16:16 04/20/21 20:14 Alprazolam 0.25 Mg Tab PO 0.25 mg TID PRN Administration Anxiety Furosemide 20 mg 04/20/21 17:00 04/21/21 08:42 Furosemide 20 Mg Tab PO 20 mg BID@0900,1600 [facility] Administration Lisinopril 5 mg 04/21/21 09:00 Lisinopril 5 Mg Tab PO BID [facility] Metoprolol Tartrate 25 mg 04/21/21 09:00 Metoprolol Tartrate 25 Mg Tab PO BID [facility] Multivitamins 1 each 04/21/21 12:00 Multivitamins, Thera 1 Each Tab PO DAILY@1200 [facility] Nicotine 1 patch 04/20/21 16:30 04/21/21 08:43 Nicotine 14mg/24hr Patch TRANSDERM Not Given DAILY [facility] Nitroglycerin 0.4 mg 04/20/21 15:19 Nitroglycerin Sl Tabs 0.4 Mg Tab SUBLINGUAL Q5M PRN Chest Pain Pantoprazole Sodium 40 mg 04/21/21 07:30 04/21/21 06:26 Pantoprazole 40 Mg Tablet PO 40 mg AC-BRKFST [facility] Administration Spironolactone 25 mg 04/21/21 09:00 Spironolactone 25 Mg Tab PO DAILY [facility] Temazepam 15 mg 04/20/21 16:16 04/21/21 00:16 Temazepam 15 Mg Cap PO 15 mg HS PRN Administration Insomnia Intake and Output 04/20/21 04/21/21 04/21/21 22:59 06:59 14:59 Intake Total 70.202 108.731 Balance 70.202 108.731 Intake: IV 10 0.9 10 Intake, IV Titration 70.202 98.731 Amount Heparin Sod,Pork in 0.45% 70.202 98.731 NaCl 25,000 unit In 0.45 % NaCl 1 250ml.bag @ 9.59 UNITS/KG/HR 10.005 mls/ hr IV .Q24H [facility] Rx#: [id number] Other: Voiding Method Toilet Toilet # Voids 1 1 Weight 104.326 kg 105.2 kg 04/21/21 05:18 04/21/21 05:18 Assessment and Plan Assessment: #1 chest pain, atypical, acute coronary event has been ruled out, recent cardiac catheterization showed normal coronary arteries #2 nonischemic cardiomyopathy #3 drug abuse #4 noncompliance Plan: From cardiology's perspective we will stop the IV heparin. Discontinue nitroglycerin. We will resume the patient's lisinopril, metoprolol tartrate, and Aldactone. From our standpoint the patient is stable for discharge home today. No further cardiac workup is warranted at this time. [employer] note has been reviewed, I agree with a documented findings and plan of care. Patient was seen and examined.
[2021-04-21 10:31] LABS: Chol/HDL Ratio 3.28 Ratio
[2021-04-21] MEDS ORDERED: MULTIVITAMINS, THERA 1 EACH TAB PO SCH (12:00)
[2021-04-21 16:49] VITALS: BP 136/90; PULSE 72; TEMP 97.4
--- NOTE | 2021-04-23 09:50 | P.DS ---
Providers Date of admission: 04/20/21 15:19 Expected date of discharge: 04/21/21 Attending physician: Cristy Bianchi Consults: 04/20/21 15:19 Consult Physician Urgent Consulting Provider: [facility] Consult Reason/Comments: Chest pain, elevated troponin Do you want consulting provider notified?: Yes Primary care physician: Stated None Hospital Course: Final diagnosis Chest pain possible unstable angina, rule out acute non-ST segment myocardial infarction Troponin 0.036 next line history of recent troponin elevations a negative cardiac cath History of recent nonischemic cardiomyopathy with ejection fraction of about 20- 25% Elevated AST, ALT possibly hepatitis Of undetermined etiology Hypoalbuminemia with mild protein calorie malnutrition Hyponatremia next line history of atrial fibrillation History of chronic obstructive pulmonary disease Hypertension History of hyperlipidemia History of pneumonia History of costochondritis History migraines history of nephrolithiasis Hypertension history of MRSA history of anxiety, bipolar, depression, schizophrenia obesity with a body mass index of 34 Amphetamine methamphetamine and marijuana positive in the drug screen Full code Discharge disposition Patient is being discharged in a stable condition with guarded prognosis to home. Patient will follow-up with Dr. Wells in the outpatient setting upon discharge. Patient is to follow-up with cardiology as discussed and scheduled next week. Total time taken is greater than 35 minutes. Hospital course This is a 50-year-old male who was recently admitted with chest pain slightly elevated troponin and has had recently had a cardiac catheterization. Cardiology evaluated the patient recommending outpatient follow-up and medication compliance. Patient currently does not have a primary care provider and was unable to refill medications. Resources provided for primary care provider and encourage the patient to follow-up this week along with cardiology as scheduled. Currently no reports of chest pain, shortness of breath, or palpitations. Patient is afebrile. No reports of nausea or vomiting and patient is tolerating diet. Patient will be discharged home today. Guarded prognosis. On exam vital signs are stable. Cardio S1, S2 are muffled. Respiratory system shows diminished breath sounds at the bases with no wheezing or rhonchi noted. Abdomen is soft and nontender. Nervous system shows no focal deficits. Please refer to medication reconciliation sheet for a list of medications. Patient Condition at Discharge: Fair Plan - Discharge Summary Discharge Rx Participant: No New Discharge Prescriptions: New Nicotine 14Mg/24Hr Patch [Habitrol] 1 patch TRANSDERM DAILY #20 patch Metoprolol Tartrate [Lopressor] 25 mg PO BID 30 Days #60 tab Nitroglycerin Sl Tabs [Nitrostat] 0.4 mg SUBLINGUAL Q5M PRN #30 tab PRN Reason: Chest Pain ALPRAZolam [Xanax] 0.25 mg PO TID PRN #6 tab PRN Reason: Anxiety lisinopriL [Zestril] 5 mg PO BID #60 tab Spironolactone [Aldactone] 25 mg PO DAILY #30 tab Multivitamins, Thera [Multivitamin (formulary)] 1 each PO DAILY@1200 30 Days #30 tab HYDROcodone/APAP 5-325MG [[place] 5-325] 1 each PO Q6HR PRN #9 tab PRN Reason: Pain Pantoprazole [Protonix] 40 mg PO AC-BRKFST 30 Days #30 tab Continue Furosemide [Lasix] 20 mg PO BID Discharge Medication List Furosemide [Lasix] 20 mg PO BID 04/20/21 [History] ALPRAZolam [Xanax] 0.25 mg PO TID PRN #6 tab 04/21/21 [Rx] HYDROcodone/APAP 5-325MG [[place] 5-325] 1 each PO Q6HR PRN #9 tab 04/21/21 [Rx] Metoprolol Tartrate [Lopressor] 25 mg PO BID 30 Days #60 tab 04/21/21 [Rx] Multivitamins, Thera [Multivitamin (formulary)] 1 each PO DAILY@1200 30 Days #30 tab 04/21/21 [Rx] Nicotine 14Mg/24Hr Patch [Habitrol] 1 patch TRANSDERM DAILY #20 patch 04/21/21 [Rx] Nitroglycerin Sl Tabs [Nitrostat] 0.4 mg SUBLINGUAL Q5M PRN #30 tab 04/21/21 [Rx] Pantoprazole [Protonix] 40 mg PO AC-BRKFST 30 Days #30 tab 04/21/21 [Rx] Spironolactone [Aldactone] 25 mg PO DAILY #30 tab 04/21/21 [Rx] lisinopriL [Zestril] 5 mg PO BID #60 tab 04/21/21 [Rx] Follow up Appointment(s)/Referral(s): Saranya Wells MD [REFERRING] - 3 Days (office is closed, please call to make follow up appointment. 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
== END 2021-04-21 19:16 | disposition home or self-care (01) ==
LOC: EC 12:14 → 3SCARD 15:19
PROVIDERS: ADMIT Hospitalist; ATTEND Hospitalist
DX: R07.89 Other chest pain (principal); E87.1 Hypo-osmolality and hyponatremia; E44.1 Mild protein-calorie malnutrition; F15.10 Other stimulant abuse, uncomplicated; R74.01 Elevation of levels of liver transaminase levels; I42.8 Other cardiomyopathies; Z20.822 Contact with and (suspected) exposure to COVID-19; E78.5 Hyperlipidemia, unspecified; F17.210 Nicotine dependence, cigarettes, uncomplicated; I27.20 Pulmonary hypertension, unspecified; I08.1 Rheumatic disorders of both mitral and tricuspid valves; I10 Essential (primary) hypertension; J44.9 Chronic obstructive pulmonary disease, unspecified; R77.8 Other specified abnormalities of plasma proteins; R00.2 Palpitations; G62.9 Polyneuropathy, unspecified; R60.0 Localized edema; E66.9 Obesity, unspecified; Z68.34 Body mass index [BMI] 34.0-34.9, adult; F20.9 Schizophrenia, unspecified; F31.30 Bipolar disorder, current episode depressed, mild or moderate severity, unspecified; M94.0 Chondrocostal junction syndrome [Tietze]; G89.29 Other chronic pain; M54.41 Lumbago with sciatica, right side; M54.42 Lumbago with sciatica, left side; F41.9 Anxiety disorder, unspecified; I48.0 Paroxysmal atrial fibrillation; Z71.6 Tobacco abuse counseling; Z71.41 Alcohol abuse counseling and surveillance of alcoholic; Z71.51 Drug abuse counseling and surveillance of drug abuser; Z88.6 Allergy status to analgesic agent; Z88.8 Allergy status to other drugs, medicaments and biological substances; Z91.19 Patient's noncompliance with other medical treatment and regimen; Z87.01 Personal history of pneumonia (recurrent); Z86.14 Personal history of Methicillin resistant Staphylococcus aureus infection; Z87.442 Personal history of urinary calculi; Z86.69 Personal history of other diseases of the nervous system and sense organs; Z82.49 Family history of ischemic heart disease and other diseases of the circulatory system
CPT/HCPCS: 99291; 96376; 96366 ×3; 96375; 96365; 36415; 93005; 80061; 80053; 80048; 83735; 84484; 85025 ×2; 85610; 85730 ×2; 83721; 80306; 87635; 71046; G0378 ×2; J1644 ×2; J1170

== ENCOUNTER 2021-04-25 13:08 | Emergency (ER) | payer OTHER ==
[2021-04-25 13:37] VITALS: RESP 18
[2021-04-25] MEDS ORDERED: MORPHINE SULFATE 4 MG/ML SYRINGE IV STA (16:49)
[2021-04-25] MEDS ORDERED: ONDANSETRON 4 MG/2 ML VIAL IVP STA (16:49)
[2021-04-25 17:19] LABS: Basophils # (A) 0.1 k/uL (0-0.2); Basophils % (A) 1 %; Eosinophils # (A) 0.4 k/uL (0-0.7); Eosinophils % (A) 4 %; HCT 50.1 % (39.0-53.0); HGB 15.9 gm/dL (13.0-17.5); Lymphocytes # (A) 1.4 k/uL (1.0-4.8); Lymphocytes % (A) 15 %; MCH 31.3 pg (25.0-35.0); MCHC 31.6 g/dL (31.0-37.0); Macrocytosis Slight; Monocytes # (A) 0.5 k/uL (0-1.0); Monocytes % (A) 6 %; Neutrophils # (A) 6.9 k/uL (1.3-7.7); Neutrophils % (A) 73 %; Platelet Count 242 k/uL (150-450); RBC 5.06 m/uL (4.30-5.90); RDW 15.6 % (11.5-15.5); WBC 9.5 k/uL (3.8-10.6)
[2021-04-25 17:29] LABS: ALT 58 U/L (4-49); AST 51 U/L (17-59); African American GFR (CKD) >90 (>60 ml/min/1.73 sqM); Albumin 3.4 g/dL (3.5-5.0); Alkaline Phosphatase 101 U/L (38-126); Anion Gap 9 mmol/L; Blood Urea Nitrogen 13 mg/dL (9-20); Calcium 8.7 mg/dL (8.4-10.2); Carbon Dioxide 21 mmol/L (22-30); Chloride 105 mmol/L (98-107); Glucose 81 mg/dL (74-99); Lipase 71 U/L (23-300); Magnesium 1.7 mg/dL (1.6-2.3); Non-African American GFR(CKD) >90 (>60 ml/min/1.73 sqM); Potassium 4.7 mmol/L (3.5-5.1); Sodium 135 mmol/L (137-145); Total Bilirubin 1.4 mg/dL (0.2-1.3); Total Protein 6.8 g/dL (6.3-8.2)
--- NOTE | 2021-04-25 17:30 | XR ---
EXAMINATION TYPE: XR chest 2V DATE OF EXAM: 04/25/2021 COMPARISON: 04/20/2021 HISTORY: Chest pain TECHNIQUE: 2 view FINDINGS: There is mild blunting of the costophrenic angles. Heart is within normal limits of size. T here is no gross heart failure. Bony thorax is intact. IMPRESSION: There are new small bilateral pleural effusions compared to old exam. No obvious heart fa ilure.
[2021-04-25 18:00] LABS: Partial Thromboplastin Time 22.2 sec (22.0-30.0)
--- NOTE | 2021-04-25 18:42 | ED ---
General Adult HPI - General Chief complaint: Chest Pain Stated complaint: chest pain Time Seen by Provider: 04/25/21 16:16 Source: patient Mode of arrival: ambulatory Limitations: no limitations - History of Present Illness Initial comments: 50-year-old male patient presents to the emergency department today for evaluation of chest pain and midepigastric abdominal pain. Patient states he always has this pain it did start worsening for him last night. He does report nausea and one episode of vomiting yesterday. He reports some mild shortness of breath. Does report multiple episodes of diarrhea. Denies any hematemesis, hematochezia, or melena. Denies fever but states he has been chilled. Denies taking any medication for his symptoms today. - Related Data Home Medications Medication Instructions Recorded Confirmed Furosemide [Lasix] 20 mg PO BID 04/20/21 04/25/21 HYDROcodone/APAP 5-325MG [[place] 1 tab PO Q6HR PRN 04/25/21 04/25/21 5-325] Multivitamins, Thera [Multivitamin 1 tab PO DAILY@1200 04/25/21 04/25/21 (formulary)] Previous Rx's Medication Instructions Recorded ALPRAZolam [Xanax] 0.25 mg PO TID PRN #6 tab 04/21/21 Metoprolol Tartrate [Lopressor] 25 mg PO BID 30 Days #60 tab 04/21/21 Nicotine 14Mg/24Hr Patch [Habitrol] 1 patch TRANSDERM DAILY #20 patch 04/21/21 Nitroglycerin Sl Tabs [Nitrostat] 0.4 mg SUBLINGUAL Q5M PRN #30 tab 04/21/21 Pantoprazole [Protonix] 40 mg PO AC-BRKFST 30 Days #30 tab 04/21/21 Spironolactone [Aldactone] 25 mg PO DAILY #30 tab 04/21/21 lisinopriL [Zestril] 5 mg PO BID #60 tab 04/21/21 Allergies Allergy/AdvReac Type Severity Reaction Status Date / Time ibuprofen [From Motrin] AdvReac Nausea & Verified 04/25/21 18:18 Vomiting simvastatin [From Zocor] AdvReac Dizziness Verified 04/25/21 18:18 Review of Systems ROS Statement: Those systems with pertinent positive or pertinent negative responses have been documented in the HPI. ROS Other: All systems not noted in ROS Statement are negative. Past Medical History Past Medical History: Atrial Fibrillation, COPD, Hyperlipidemia, Hypertension, Pneumonia Additional Past Medical History / Comment(s): Other HX; Costochondritis, chronic pain, chronic low back pain with bilateral sciatica, neuropathy bilateral hands/feet, migraines, kidney stones, past partial small bowel obstruction. HTN the last 10 yrs Stopped taking meds 5 yrs ago. COPD due to tobacco use. MArijuna use 3 -4 times a week - Smoke it History of Any Multi-Drug Resistant Organisms: None Reported, MRSA Date of last positivie culture/infection: 04/10/18 MDRO Source:: TOE Past Surgical History: Heart Catheterization, Orthopedic Surgery Additional Past Surgical History / Comment(s): 03/14/18 Cardiac cath-normal coronaries, L shoulder rotator cuff repair x2, cervical injection. Past Anesthesia/Blood Transfusion Reactions: No Reported Reaction Past Psychological History: Anxiety, Bipolar, Depression, Schizophrenia Smoking Status: Current every day smoker Past Alcohol Use History: None Reported Past Drug Use History: Marijuana, Prescription Drug Abuse - Past Family History Father Family Medical History: Myocardial Infarction ([place]) Additional Family Medical History / Comment(s): mi at age 35, still living Mother Family Medical History: Myocardial Infarction ([place]) Additional Family Medical History / Comment(s): Mother has had at least one [place]- pt unsure at what age. He has not had much contact with his mother since he was 17 yrs old. General Exam Limitations: no limitations General appearance: alert, in no apparent distress, other (This is a well- developed, well-nourished adult male in no acute distress.) ENT exam: Present: normal exam, normal oropharynx, mucous membranes moist Respiratory exam: Present: normal lung sounds bilaterally. Absent: respiratory distress, wheezes, rales, rhonchi, stridor Cardiovascular Exam: Present: normal rhythm, tachycardia, normal heart sounds. Absent: systolic murmur, diastolic murmur, rubs, gallop, clicks GI/Abdominal exam: Present: soft, tenderness (Mid epigastric), normal bowel sounds. Absent: distended, guarding, rebound, rigid Neurological exam: Present: alert, oriented X3, CN II-XII intact Psychiatric exam: Present: normal affect, normal mood Skin exam: Present: warm, dry, intact, normal color. Absent: rash Course Vital Signs 12/21/21 13:34 Pulse Rate 104 H Respiratory 18 Rate Blood Pressure 149/106 O2 Sat by Pulse 99 Oximetry EKG Findings - EKG Comments: EKG Findings:: EKG #1 obtained at 1342 shows sinus tachycardia at the ventricular rate of 101, WA interval 178, QR episcopalian 102, QT 370, QTC 479. No evidence of ST elevation or depression. EKG #2 obtained at 2009 shows sinus tachycardia with a ventricular rate of 106, WA interval 168, QR episcopalian 92, QT 374, QTC 496. No changes in EKG or evidence of ST elevation or depression Medical Decision Making - Medical Decision Making 50-year-old male patient with chronic chest and abdominal pain presents for worsening symptoms starting last night. Physical examination did reveal midepigastric left upper quadrant tenderness. Lungs are clear to auscultation. Vital signs are unremarkable. Labs reviewed and did reveal normal troponin initially. I did repeat the troponin which was again negative. Repeat EKG was also normal sinus with no changes from initial. He is given multiple doses of pain medicine. He'll be discharged follow-up with his primary care physician for recheck in 1-2 days. Return parameters were discussed in detail. He verbalizes understanding and agrees with this plan. My attending is Dr. Johnson. - Lab Data Result diagrams: 04/25/21 16:58 04/25/21 16:58 Lab Results 04/25/21 04/25/21 04/25/21 Range/Units 16:58 16:58 16:58 WBC 9.5 (3.8-10.6) k/uL RBC 5.06 (4.30-5.90) m/uL Hgb 15.9 (13.0-17.5) gm/dL Hct 50.1 (39.0-53.0) % MCV 99.0 (80.0-100.0) fL MCH 31.3 (25.0-35.0) pg MCHC 31.6 (31.0-37.0) g/dL RDW 15.6 H (11.5-15.5) % Plt Count 242 (150-450) k/uL MPV 8.0 Neutrophils % 73 % Lymphocytes % 15 % Monocytes % 6 % Eosinophils % 4 % Basophils % 1 % Neutrophils # 6.9 (1.3-7.7) k/uL Lymphocytes # 1.4 (1.0-4.8) k/uL Monocytes # 0.5 (0-1.0) k/uL Eosinophils # 0.4 (0-0.7) k/uL Basophils # 0.1 (0-0.2) k/uL Macrocytosis Slight PT 11.0 (9.0-12.0) sec INR 1.0 (<1.2) APTT 22.2 (22.0-30.0) sec Sodium 135 L (137-145) mmol/L Potassium 4.7 (3.5-5.1) mmol/L Chloride 105 (98-107) mmol/L Carbon Dioxide 21 L (22-30) mmol/L Anion Gap 9 mmol/L BUN 13 (9-20) mg/dL Creatinine 0.78 (0.66-1.25) mg/dL Est GFR (CKD-EPI)AfAm >90 (>60 ml/min/1.73 sqM) Est GFR (CKD-EPI)NonAf >90 (>60 ml/min/1.73 sqM) Glucose 81 (74-99) mg/dL Calcium 8.7 (8.4-10.2) mg/dL Magnesium 1.7 (1.6-2.3) mg/dL Total Bilirubin 1.4 H (0.2-1.3) mg/dL AST 51 (17-59) U/L ALT 58 H (4-49) U/L Alkaline Phosphatase 101 (38-126) U/L Troponin I (0.000-0.034) ng/mL Total Protein 6.8 (6.3-8.2) g/dL Albumin 3.4 L (3.5-5.0) g/dL Lipase 71 (23-300) U/L Coronavirus (PCR) (Not Detectd) 04/25/21 04/25/21 04/25/21 Range/Units 16:58 16:58 19:50 WBC (3.8-10.6) k/uL RBC (4.30-5.90) m/uL Hgb (13.0-17.5) gm/dL Hct (39.0-53.0) % MCV (80.0-100.0) fL MCH (25.0-35.0) pg MCHC (31.0-37.0) g/dL RDW (11.5-15.5) % Plt Count (150-450) k/uL MPV Neutrophils % % Lymphocytes % % Monocytes % % Eosinophils % % Basophils % % Neutrophils # (1.3-7.7) k/uL Lymphocytes # (1.0-4.8) k/uL Monocytes # (0-1.0) k/uL Eosinophils # (0-0.7) k/uL Basophils # (0-0.2) k/uL Macrocytosis PT (9.0-12.0) sec INR (<1.2) APTT (22.0-30.0) sec Sodium (137-145) mmol/L Potassium (3.5-5.1) mmol/L Chloride (98-107) mmol/L Carbon Dioxide (22-30) mmol/L Anion Gap mmol/L BUN (9-20) mg/dL Creatinine (0.66-1.25) mg/dL Est GFR (CKD-EPI)AfAm (>60 ml/min/1.73 sqM) Est GFR (CKD-EPI)NonAf (>60 ml/min/1.73 sqM) Glucose (74-99) mg/dL Calcium (8.4-10.2) mg/dL Magnesium (1.6-2.3) mg/dL Total Bilirubin (0.2-1.3) mg/dL AST (17-59) U/L ALT (4-49) U/L Alkaline Phosphatase (38-126) U/L Troponin I 0.022 0.021 (0.000-0.034) ng/mL Total Protein (6.3-8.2) g/dL Albumin (3.5-5.0) g/dL Lipase (23-300) U/L Coronavirus (PCR) Not Detected (Not Detectd) - Radiology Data Radiology results: report reviewed, image reviewed Two-view x-ray of the chest is obtained. Report was reviewed in its entirety. Impression by Dr. Grant shows new small bilateral pleural effusions compared to old exam. No obvious heart failure. Disposition Clinical Impression: Chest pain, Abdominal pain Disposition: HOME SELF-CARE Condition: Good Instructions (If sedation given, give patient instructions): Chest Pain (ED), Abdominal Pain (ED) Additional Instructions: Follow-up with your primary care physician for recheck in 1-2 days. Return for any new, worsening, or concerning symptoms. Is patient prescribed a controlled substance at d/c from ED?: No Referrals: None,Stated [Primary Care Provider] - 1-2 days Time of Disposition: 21:31
[2021-04-25] MEDS ORDERED: MORPHINE SULFATE 4 MG/ML SYRINGE IVP STA ×2 (19:05→22:24)
[2021-04-25 23:31] VITALS: BP 145/99; PULSE 97; TEMP 98.7
== END 2021-04-25 23:10 | disposition home or self-care (01) ==
LOC: EC 13:08
DX: R07.9 Chest pain, unspecified (principal); R10.13 Epigastric pain; R11.2 Nausea with vomiting, unspecified; F17.200 Nicotine dependence, unspecified, uncomplicated; J44.9 Chronic obstructive pulmonary disease, unspecified; I10 Essential (primary) hypertension; Z88.6 Allergy status to analgesic agent; Z88.8 Allergy status to other drugs, medicaments and biological substances; Z79.899 Other long term (current) drug therapy; Z20.822 Contact with and (suspected) exposure to COVID-19
CPT/HCPCS: 36415; 93005; 80053; 83690; 83735; 84484; 85025; 85610; 85730; 87635; 71046; 99285; 96374; 96375; 96376; J2270; J2405

== ENCOUNTER 2021-04-26 16:09 | Emergency (ER) | payer OTHER ==
[2021-04-26 16:19] VITALS: RESP 20; TEMP 97.8
[2021-04-26 16:55] LABS: Basophils # (A) 0.1 k/uL (0-0.2); Basophils % (A) 1 %; Eosinophils # (A) 0.6 k/uL (0-0.7); Eosinophils % (A) 6 %; HCT 46.8 % (39.0-53.0); HGB 14.9 gm/dL (13.0-17.5); Lymphocytes # (A) 1.5 k/uL (1.0-4.8); Lymphocytes % (A) 17 %; MCH 30.7 pg (25.0-35.0); Mean Platelet Volume 8.1; Monocytes # (A) 0.5 k/uL (0-1.0); Monocytes % (A) 6 %; Neutrophils # (A) 5.9 k/uL (1.3-7.7); Neutrophils % (A) 68 %; Platelet Count 227 k/uL (150-450); RBC 4.87 m/uL (4.30-5.90); RDW 15.4 % (11.5-15.5); WBC 8.7 k/uL (3.8-10.6)
[2021-04-26 17:02] LABS: ALT 48 U/L (4-49); AST 40 U/L (17-59); African American GFR (CKD) >90 (>60 ml/min/1.73 sqM); Albumin 3.3 g/dL (3.5-5.0); Alkaline Phosphatase 109 U/L (38-126); Anion Gap 5 mmol/L; Blood Urea Nitrogen 20 mg/dL (9-20); Calcium 8.6 mg/dL (8.4-10.2); Carbon Dioxide 29 mmol/L (22-30); Chloride 101 mmol/L (98-107); Glucose 76 mg/dL (74-99); Magnesium 1.7 mg/dL (1.6-2.3); Non-African American GFR(CKD) >90 (>60 ml/min/1.73 sqM); Potassium 4.5 mmol/L (3.5-5.1); Sodium 135 mmol/L (137-145); Total Bilirubin 0.6 mg/dL (0.2-1.3); Total Protein 6.5 g/dL (6.3-8.2)
[2021-04-26 17:12] LABS: INR 1.1 (<1.2); Partial Thromboplastin Time 22.8 sec (22.0-30.0); Prothrombin Time 11.2 sec (9.0-12.0)
--- NOTE | 2021-04-26 17:39 | XR ---
EXAMINATION TYPE: XR chest 2V DATE OF EXAM: 04/26/2021 COMPARISON: Yesterday HISTORY: Chest pain TECHNIQUE: FINDINGS: Heart is top normal in size. There is slight blunting of the posterior costophrenic angles. . There are no hilar masses. Mediastinum is normal. IMPRESSION: Small pleural effusions without change compared to yesterday. Borderline cardiomegaly. No definite he art failure.
[2021-04-26] MEDS ORDERED: HYDROcodone/APAP 5-325MG 1 EACH TAB PO STA (19:03)
--- NOTE | 2021-04-26 19:28 | ED ---
General Adult HPI - General Chief complaint: Chest Pain Stated complaint: Chest pain,L leg swelling Time Seen by Provider: 04/26/21 18:43 Source: patient, RN notes reviewed, old records reviewed Mode of arrival: wheelchair Limitations: no limitations - History of Present Illness Initial comments: 50-year-old history of nonischemic cardiomyopathy presents for evaluation of chest pain. Patient has had multiple ER visits and admissions over the past sev eral months. He's had a heart catheterization which showed normal coronary arteries. He does have recurrent chest pain at baseline and states he was previously on [place] but that no one will prescribe this medication any longer. Additionally complains of some bilateral lower extremity swelling which is worse on the right. Denies vomiting. Denies radiating symptoms to his anterior chest pain. Stating this is typical of his recurrent chest pain. - Related Data Home Medications Medication Instructions Recorded Confirmed Furosemide [Lasix] 20 mg PO BID 04/20/21 04/26/21 HYDROcodone/APAP 5-325MG [[place] 1 tab PO Q6HR PRN 04/25/21 04/26/21 5-325] Multivitamins, Thera [Multivitamin 1 tab PO DAILY@1200 04/25/21 04/26/21 (formulary)] Previous Rx's Medication Instructions Recorded ALPRAZolam [Xanax] 0.25 mg PO TID PRN #6 tab 04/21/21 Metoprolol Tartrate [Lopressor] 25 mg PO BID 30 Days #60 tab 04/21/21 Nicotine 14Mg/24Hr Patch [Habitrol] 1 patch TRANSDERM DAILY #20 patch 04/21/21 Nitroglycerin Sl Tabs [Nitrostat] 0.4 mg SUBLINGUAL Q5M PRN #30 tab 04/21/21 Pantoprazole [Protonix] 40 mg PO AC-BRKFST 30 Days #30 tab 04/21/21 Spironolactone [Aldactone] 25 mg PO DAILY #30 tab 04/21/21 lisinopriL [Zestril] 5 mg PO BID #60 tab 04/21/21 HYDROcodone/APAP 5-325MG [[place] 1 tab PO BID PRN #4 tab 04/26/21 5-325] Allergies Allergy/AdvReac Type Severity Reaction Status Date / Time ibuprofen [From Motrin] AdvReac Nausea & Verified 04/26/21 19:32 Vomiting simvastatin [From Zocor] AdvReac Dizziness Verified 04/26/21 19:32 Review of Systems ROS Statement: Those systems with pertinent positive or pertinent negative responses have been documented in the HPI. ROS Other: All systems not noted in ROS Statement are negative. Past Medical History Past Medical History: Atrial Fibrillation, COPD, Hyperlipidemia, Hypertension, Pneumonia Additional Past Medical History / Comment(s): Other HX; Costochondritis, chronic pain, chronic low back pain with bilateral sciatica, neuropathy bilateral hands/feet, migraines, kidney stones, past partial small bowel obstruction. HTN the last 10 yrs Stopped taking meds 5 yrs ago. COPD due to tobacco use. [place]una use 3 -4 times a week - Smoke it History of Any Multi-Drug Resistant Organisms: None Reported, MRSA Date of last positivie culture/infection: 04/10/18 MDRO Source:: TOE Past Surgical History: Heart Catheterization, Orthopedic Surgery Additional Past Surgical History / Comment(s): 03/14/18 Cardiac cath-normal coronaries, L shoulder rotator cuff repair x2, cervical injection. Past Anesthesia/Blood Transfusion Reactions: No Reported Reaction Past Psychological History: Anxiety, Bipolar, Depression, Schizophrenia Smoking Status: Current every day smoker Past Alcohol Use History: None Reported Past Drug Use History: Marijuana, Prescription Drug Abuse - Past Family History Father Family Medical History: Myocardial Infarction ([place]) Additional Family Medical History / Comment(s): mi at age 35, still living Mother Family Medical History: Myocardial Infarction ([place]) Additional Family Medical History / Comment(s): Mother has had at least one [place]- pt unsure at what age. He has not had much contact with his mother since he was 17 yrs old. General Exam Limitations: no limitations General appearance: alert, in no apparent distress Head exam: Present: atraumatic, normocephalic Eye exam: Present: normal appearance, PERRL ENT exam: Present: normal exam Neck exam: Present: normal inspection. Absent: tenderness, meningismus Respiratory exam: Present: normal lung sounds bilaterally. Absent: respiratory distress, wheezes Cardiovascular Exam: Present: regular rate, normal rhythm GI/Abdominal exam: Present: soft. Absent: distended, tenderness, guarding Extremities exam: Present: normal capillary refill, pedal edema (Worse on the left) Neurological exam: Present: alert, oriented X3, CN II-XII intact. Absent: motor sensory deficit Psychiatric exam: Present: normal affect, normal mood Skin exam: Present: warm, dry, intact. Absent: cyanosis, diaphoretic Course Vital Signs 04/26/21 04/26/21 16:14 19:37 Temperature 97.8 F Pulse Rate 119 H 102 H Respiratory 20 20 Rate Blood Pressure 156/104 145/95 O2 Sat by Pulse 100 98 Oximetry EKG Findings - EKG Comments: EKG Findings:: EKG: Sinus tachycardia, rate of 108, possible left atrial enlargement, no ST segment elevation, ID interval 174, QRS duration 84, QTC 469. Medical Decision Making - Medical Decision Making 50-year-old male with chronic chest pain presenting for reevaluation. Patient has normal CBC, normal CMP, negative troponins in the emergency department 2. His chest x-ray shows persistent minimal effusion without caren heart failure. Patient has stable vital signs. He did have some lower extremity swelling which is worse on the right and ultrasound was performed to rule out DVT. This is negative for DVT. - Lab Data Result diagrams: 04/26/21 16:28 04/26/21 16:28 Lab Results 04/26/21 04/26/21 04/26/21 Range/Units 16:28 16:28 16:28 WBC 8.7 (3.8-10.6) k/uL RBC 4.87 (4.30-5.90) m/uL Hgb 14.9 (13.0-17.5) gm/dL Hct 46.8 (39.0-53.0) % MCV 96.0 (80.0-100.0) fL MCH 30.7 (25.0-35.0) pg MCHC 32.0 (31.0-37.0) g/dL RDW 15.4 (11.5-15.5) % Plt Count 227 (150-450) k/uL MPV 8.1 Neutrophils % 68 % Lymphocytes % 17 % Monocytes % 6 % Eosinophils % 6 % Basophils % 1 % Neutrophils # 5.9 (1.3-7.7) k/uL Lymphocytes # 1.5 (1.0-4.8) k/uL Monocytes # 0.5 (0-1.0) k/uL Eosinophils # 0.6 (0-0.7) k/uL Basophils # 0.1 (0-0.2) k/uL PT 11.2 (9.0-12.0) sec INR 1.1 (<1.2) APTT 22.8 (22.0-30.0) sec Sodium 135 L (137-145) mmol/L Potassium 4.5 (3.5-5.1) mmol/L Chloride 101 (98-107) mmol/L Carbon Dioxide 29 (22-30) mmol/L Anion Gap 5 mmol/L BUN 20 (9-20) mg/dL Creatinine 0.91 (0.66-1.25) mg/dL Est GFR (CKD-EPI)AfAm >90 (>60 ml/min/1.73 sqM) Est GFR (CKD-EPI)NonAf >90 (>60 ml/min/1.73 sqM) Glucose 76 (74-99) mg/dL Calcium 8.6 (8.4-10.2) mg/dL Magnesium 1.7 (1.6-2.3) mg/dL Total Bilirubin 0.6 (0.2-1.3) mg/dL AST 40 (17-59) U/L ALT 48 (4-49) U/L Alkaline Phosphatase 109 (38-126) U/L Troponin I (0.000-0.034) ng/mL Total Protein 6.5 (6.3-8.2) g/dL Albumin 3.3 L (3.5-5.0) g/dL 04/26/21 04/26/21 Range/Units 16:28 19:30 WBC (3.8-10.6) k/uL RBC (4.30-5.90) m/uL Hgb (13.0-17.5) gm/dL Hct (39.0-53.0) % MCV (80.0-100.0) fL MCH (25.0-35.0) pg MCHC (31.0-37.0) g/dL RDW (11.5-15.5) % Plt Count (150-450) k/uL MPV Neutrophils % % Lymphocytes % % Monocytes % % Eosinophils % % Basophils % % Neutrophils # (1.3-7.7) k/uL Lymphocytes # (1.0-4.8) k/uL Monocytes # (0-1.0) k/uL Eosinophils # (0-0.7) k/uL Basophils # (0-0.2) k/uL PT (9.0-12.0) sec INR (<1.2) APTT (22.0-30.0) sec Sodium (137-145) mmol/L Potassium (3.5-5.1) mmol/L Chloride (98-107) mmol/L Carbon Dioxide (22-30) mmol/L Anion Gap mmol/L BUN (9-20) mg/dL Creatinine (0.66-1.25) mg/dL Est GFR (CKD-EPI)AfAm (>60 ml/min/1.73 sqM) Est GFR (CKD-EPI)NonAf (>60 ml/min/1.73 sqM) Glucose (74-99) mg/dL Calcium (8.4-10.2) mg/dL Magnesium (1.6-2.3) mg/dL Total Bilirubin (0.2-1.3) mg/dL AST (17-59) U/L ALT (4-49) U/L Alkaline Phosphatase (38-126) U/L Troponin I <0.012 0.012 (0.000-0.034) ng/mL Total Protein (6.3-8.2) g/dL Albumin (3.5-5.0) g/dL Disposition Clinical Impression: Atypical chest pain Disposition: HOME SELF-CARE Condition: Fair Instructions (If sedation given, give patient instructions): Chest Pain (ED) Prescriptions: HYDROcodone/APAP 5-325MG [[place] 5-325] 1 tab PO BID PRN #4 tab PRN Reason: Pain Is patient prescribed a controlled substance at d/c from ED?: No Referrals: None,Stated [Primary Care Provider] - 1-2 days Eric Burleson MD [STAFF PHYSICIAN] - 1-2 days Time of Disposition: 21:13
[2021-04-26 19:40] VITALS: BP 145/95; PULSE 102
--- NOTE | 2021-04-26 21:01 | US ---
EXAMINATION TYPE: US venous doppler duplex LE RT DATE OF EXAM: 04/26/2021 8:45 PM COMPARISON: US CLINICAL HISTORY: dvt. Swelling within right leg. No hx of DVT. Patient does not take blood thinners. SIDE PERFORMED: Right TECHNIQUE: The lower extremity deep venous system is examined utilizing real time linear array sonog deon with graded compression, doppler sonography and color-flow sonography. VESSELS IMAGED: Common Femoral Vein Deep Femoral Vein Greater Saphenous Vein * Femoral Vein Popliteal Vein Small Saphenous Vein * Proximal Calf Veins (* superficial vessels) Exam limited due to edema and pain. Right Leg: Hypoechoic area with hyperechoic center seen within the right groin: 2.3 x 2.9 x 0.9 cm. No evidence of DVT in veins imaged at this time. Unable to fully evaluate compression of CFV due to p atient's pain tolerance. IMPRESSION: No evidence of deep vein thrombosis in the right leg.
== END 2021-04-26 21:44 | disposition home or self-care (01) ==
LOC: EC 16:09
DX: R07.89 Other chest pain (principal); M79.89 Other specified soft tissue disorders; F17.200 Nicotine dependence, unspecified, uncomplicated; J44.9 Chronic obstructive pulmonary disease, unspecified; I10 Essential (primary) hypertension; Z88.6 Allergy status to analgesic agent; Z88.8 Allergy status to other drugs, medicaments and biological substances; Z79.899 Other long term (current) drug therapy
CPT/HCPCS: 36415; 71046; 80053; 83735; 84484; 85025; 85610; 85730; 93005; 99285

== ENCOUNTER 2021-04-28 14:39 | Emergency (ER) | payer OTHER ==
[2021-04-28 15:05] VITALS: TEMP 98.7
--- NOTE | 2021-04-28 15:17 | ED ---
General Adult HPI - General Chief complaint: Chest Pain Stated complaint: Revisit,Chest Pain,Abd Pain, Leg weakness Time Seen by Provider: 04/28/21 15:12 Source: patient Mode of arrival: wheelchair Limitations: no limitations - History of Present Illness Initial comments: Patient presents to the ED complaining of having right-sided chest and abdominal pain intermittently for the past month or so. Patient states that his pain has been constant for the past 4 days. Patient was seen in the ED 2 days ago for the symptoms, and he was discharged home at that time. Patient also admits to having a cough for the past week or so. Patient states that he got his first dose of the Moderna Covid vaccine in September, but he never got a second dose. Patient denies trauma or injury, fever or chills, headache, focal numbness/weakness/neuro deficit, neck/arm/jaw/back pain, pleuritic pain, dyspnea, hemoptysis, palpitations, dizziness, nausea/vomiting/diaphoresis, abdominal pain, diarrhea, dysuria or urinary symptoms, leg or calf pain, or any other symptoms or complaints. - Related Data Home Medications Medication Instructions Recorded Confirmed Furosemide [Lasix] 20 mg PO BID 04/20/21 04/28/21 Multivitamins, Thera [Multivitamin 1 tab PO DAILY@1200 04/25/21 04/28/21 (formulary)] Previous Rx's Medication Instructions Recorded ALPRAZolam [Xanax] 0.25 mg PO TID PRN #6 tab 04/21/21 Metoprolol Tartrate [Lopressor] 25 mg PO BID 30 Days #60 tab 04/21/21 Nicotine 14Mg/24Hr Patch [Habitrol] 1 patch TRANSDERM DAILY #20 patch 04/21/21 Nitroglycerin Sl Tabs [Nitrostat] 0.4 mg SUBLINGUAL Q5M PRN #30 tab 04/21/21 Pantoprazole [Protonix] 40 mg PO AC-BRKFST 30 Days #30 tab 04/21/21 Spironolactone [Aldactone] 25 mg PO DAILY #30 tab 04/21/21 lisinopriL [Zestril] 5 mg PO BID #60 tab 04/21/21 HYDROcodone/APAP 5-325MG [[place] 1 tab PO BID PRN #4 tab 04/26/21 5-325] Allergies Allergy/AdvReac Type Severity Reaction Status Date / Time ibuprofen [From Motrin] AdvReac Nausea & Verified 04/28/21 15:05 Vomiting simvastatin [From Zocor] AdvReac Dizziness Verified 04/28/21 15:05 Review of Systems ROS Statement: Those systems with pertinent positive or pertinent negative responses have been documented in the HPI. ROS Other: All systems not noted in ROS Statement are negative. Past Medical History Past Medical History: Atrial Fibrillation, COPD, Hyperlipidemia, Hypertension, Pneumonia Additional Past Medical History / Comment(s): Other HX; Costochondritis, chronic pain, chronic low back pain with bilateral sciatica, neuropathy bilateral hands/feet, migraines, kidney stones, past partial small bowel obstruction. HTN the last 10 yrs Stopped taking meds 5 yrs ago. COPD due to tobacco use. MArijuna use 3 -4 times a week - Smoke it History of Any Multi-Drug Resistant Organisms: None Reported, MRSA Date of last positivie culture/infection: 04/10/18 MDRO Source:: TOE Past Surgical History: Heart Catheterization, Orthopedic Surgery Additional Past Surgical History / Comment(s): 03/14/18 Cardiac cath-normal coronaries, L shoulder rotator cuff repair x2, cervical injection. Past Anesthesia/Blood Transfusion Reactions: No Reported Reaction Past Psychological History: Anxiety, Bipolar, Depression, Schizophrenia Smoking Status: Current every day smoker Past Alcohol Use History: None Reported Past Drug Use History: Marijuana, Prescription Drug Abuse - Past Family History Father Family Medical History: Myocardial Infarction (NM) Additional Family Medical History / Comment(s): mi at age 35, still living Mother Family Medical History: Myocardial Infarction (NM) Additional Family Medical History / Comment(s): Mother has had at least one NM- pt unsure at what age. He has not had much contact with his mother since he was 17 yrs old. General Exam Limitations: no limitations General appearance: alert, in no apparent distress Head exam: Present: atraumatic, normocephalic Eye exam: Present: normal appearance, EOMI ENT exam: Present: mucous membranes moist Neck exam: Present: other (Trachea is in midline) Respiratory exam: Present: normal lung sounds bilaterally, other (Reproducible right anterior chest wall tenderness; no chest wall deformity, ecchymosis or crepitation is appreciated). Absent: respiratory distress, wheezes, rales, rhonchi, stridor Cardiovascular Exam: Present: normal rhythm, tachycardia, normal heart sounds, other (Normal radial pulses bilaterally) GI/Abdominal exam: Present: soft, normal bowel sounds, other (Mild right upper q uadrant tenderness). Absent: distended, guarding, rebound Extremities exam: Present: pedal edema, other (Negative Homans sign bilaterally). Absent: tenderness, calf tenderness Back exam: Absent: CVA tenderness (R), CVA tenderness (L) Neurological exam: Present: alert, oriented X3. Absent: motor sensory deficit Psychiatric exam: Present: normal affect, normal mood Skin exam: Present: warm, dry, intact, normal color Course Vital Signs 04/28/21 04/28/21 04/28/21 15:03 16:52 18:07 Temperature 98.7 F Pulse Rate 118 H 101 H 103 H Respiratory 19 18 20 Rate Blood Pressure 161/110 140/105 151/119 O2 Sat by Pulse 96 98 98 Oximetry - Reevaluation(s) Reevaluation #1: 04/28/21 18:09 Patient denies development of any new pain or symptoms while in the ED. Patient remains alert and breathing comfortably with a normal room air oxygen saturation. Patient states that his pain has improved with ED treatment. Patient is aware of his test results, and he feels comfortable being discharged home at this time. Patient was counseled about chest/abdominal pain, pleural effusions and gallstones. Patient was clearly explained return and follow-up instructions, and he was instructed to have a low threshold for return to the emergency department should his symptoms worsen. Patient was instructed to follow up closely with his primary care provider, as well as a general surgeon. Patient feels comfortable with this plan. EKG Findings - EKG Comments: EKG Findings:: Sinus tachycardia, ventricular rate 109 bpm, no ectopy, normal VA and QRS intervals, normal QT interval, nonspecific T-wave abnormality, normal axis, no significant change when compared to 04/26/2021 EKG Medical Decision Making - Medical Decision Making Patient's CT angiography chest is negative for pulmonary embolism, but does reveal a small right pleural effusion, which potentially may be the etiology of the patient's right-sided chest pain. Patient's gallbladder ultrasound shows mild gallbladder wall thickening and non-shadowing gallstones, but is otherwise negative. Patient is afebrile and without leukocytosis. Patient's LFTs are fairly unremarkable other than a mildly elevated alkaline phosphatase level. Patient has a negative Mobley's sign. I think that acute cholecystitis is very unlikely. Patient's EKG is unchanged and his troponin is negative. Patient's labs are fairly unremarkable, including a negative Covid test. Patient reports having symptoms for over a month now. I do not suspect an emergent medical condition at this time. Will discharge patient home at this time. Patient was clearly explained return and follow-up instructions. Patient feels comfortable with this plan. - Lab Data Result diagrams: 04/28/21 15:30 04/28/21 15:26 Lab Results 04/28/21 04/28/21 04/28/21 Range/Units 15:26 15:26 15:26 WBC (3.8-10.6) k/uL RBC (4.30-5.90) m/uL Hgb (13.0-17.5) gm/dL Hct (39.0-53.0) % MCV (80.0-100.0) fL MCH (25.0-35.0) pg MCHC (31.0-37.0) g/dL RDW (11.5-15.5) % Plt Count (150-450) k/uL MPV Neutrophils % % Lymphocytes % % Monocytes % % Eosinophils % % Basophils % % Neutrophils # (1.3-7.7) k/uL Lymphocytes # (1.0-4.8) k/uL Monocytes # (0-1.0) k/uL Eosinophils # (0-0.7) k/uL Basophils # (0-0.2) k/uL PT 10.6 (9.0-12.0) sec INR 1.0 (<1.2) APTT 22.8 (22.0-30.0) sec D-Dimer 0.75 H (<0.60) mg/L FEU Sodium 138 (137-145) mmol/L Potassium 4.8 (3.5-5.1) mmol/L Chloride 106 (98-107) mmol/L Carbon Dioxide 23 (22-30) mmol/L Anion Gap 9 mmol/L BUN 18 (9-20) mg/dL Creatinine 0.87 (0.66-1.25) mg/dL Est GFR (CKD-EPI)AfAm >90 (>60 ml/min/1.73 sqM) Est GFR (CKD-EPI)NonAf >90 (>60 ml/min/1.73 sqM) Glucose 91 (74-99) mg/dL Calcium 8.6 (8.4-10.2) mg/dL Magnesium 1.8 (1.6-2.3) mg/dL Total Bilirubin 0.6 (0.2-1.3) mg/dL AST 43 (17-59) U/L ALT 41 (4-49) U/L Alkaline Phosphatase 163 H (38-126) U/L Troponin I (0.000-0.034) ng/mL NT-Pro-B Natriuret Pep pg/mL Total Protein 6.5 (6.3-8.2) g/dL Albumin 3.3 L (3.5-5.0) g/dL Lipase 178 (23-300) U/L Urine Color Yellow Urine Appearance Clear (Clear) Urine pH 7.0 (5.0-8.0) Ur Specific Maria Stein 1.017 (1.001-1.035) Urine Protein 1+ H (Negative) Urine Glucose (UA) Negative (Negative) Urine Ketones Negative (Negative) Urine Blood Negative (Negative) Urine Nitrite Negative (Negative) Urine Bilirubin Negative (Negative) Urine Urobilinogen 2.0 (<2.0) mg/dL Ur Leukocyte Esterase Negative (Negative) Urine RBC 1 (0-5) /hpf Urine WBC 1 (0-5) /hpf Urine Mucus Rare H (None) /hpf Urine Opiates Screen (NotDetected) Ur Oxycodone Screen (NotDetected) Urine Methadone Screen (NotDetected) Ur Propoxyphene Screen (NotDetected) Ur Barbiturates Screen (NotDetected) U Tricyclic Antidepress (NotDetected) Ur Phencyclidine Scrn (NotDetected) Ur Amphetamines Screen (NotDetected) U Methamphetamines Scrn (NotDetected) U Benzodiazepines Scrn (NotDetected) Urine Cocaine Screen (NotDetected) U Marijuana (THC) Screen (NotDetected) Coronavirus (PCR) (Not Detectd) 04/28/21 04/28/21 04/28/21 Range/Units 15:26 15:26 15:26 WBC (3.8-10.6) k/uL RBC (4.30-5.90) m/uL Hgb (13.0-17.5) gm/dL Hct (39.0-53.0) % MCV (80.0-100.0) fL MCH (25.0-35.0) pg MCHC (31.0-37.0) g/dL RDW (11.5-15.5) % Plt Count (150-450) k/uL MPV Neutrophils % % Lymphocytes % % Monocytes % % Eosinophils % % Basophils % % Neutrophils # (1.3-7.7) k/uL Lymphocytes # (1.0-4.8) k/uL Monocytes # (0-1.0) k/uL Eosinophils # (0-0.7) k/uL Basophils # (0-0.2) k/uL PT (9.0-12.0) sec INR (<1.2) APTT (22.0-30.0) sec D-Dimer (<0.60) mg/L FEU Sodium (137-145) mmol/L Potassium (3.5-5.1) mmol/L Chloride (98-107) mmol/L Carbon Dioxide (22-30) mmol/L Anion Gap mmol/L BUN (9-20) mg/dL Creatinine (0.66-1.25) mg/dL Est GFR (CKD-EPI)AfAm (>60 ml/min/1.73 sqM) Est GFR (CKD-EPI)NonAf (>60 ml/min/1.73 sqM) Glucose (74-99) mg/dL Calcium (8.4-10.2) mg/dL Magnesium (1.6-2.3) mg/dL Total Bilirubin (0.2-1.3) mg/dL AST (17-59) U/L ALT (4-49) U/L Alkaline Phosphatase (38-126) U/L Troponin I 0.013 (0.000-0.034) ng/mL NT-Pro-B Natriuret Pep 1770 pg/mL Total Protein (6.3-8.2) g/dL Albumin (3.5-5.0) g/dL Lipase (23-300) U/L Urine Color Urine Appearance (Clear) Urine pH (5.0-8.0) Ur Specific Maria Stein (1.001-1.035) Urine Protein (Negative) Urine Glucose (UA) (Negative) Urine Ketones (Negative) Urine Blood (Negative) Urine Nitrite (Negative) Urine Bilirubin (Negative) Urine Urobilinogen (<2.0) mg/dL Ur Leukocyte Esterase (Negative) Urine RBC (0-5) /hpf Urine WBC (0-5) /hpf Urine Mucus (None) /hpf Urine Opiates Screen Detected H (NotDetected) Ur Oxycodone Screen Not Detected (NotDetected) Urine Methadone Screen Not Detected (NotDetected) Ur Propoxyphene Screen Not Detected (NotDetected) Ur Barbiturates Screen Not Detected (NotDetected) U Tricyclic Antidepress Not Detected (NotDetected) Ur Phencyclidine Scrn Not Detected (NotDetected) Ur Amphetamines Screen Not Detected (NotDetected) U Methamphetamines Scrn Not Detected (NotDetected) U Benzodiazepines Scrn Detected H (NotDetected) Urine Cocaine Screen Not Detected (NotDetected) U Marijuana (THC) Screen Detected H (NotDetected) Coronavirus (PCR) (Not Detectd) 04/28/21 04/28/21 Range/Units 15:30 15:30 WBC 7.8 (3.8-10.6) k/uL RBC 4.69 (4.30-5.90) m/uL Hgb 14.4 (13.0-17.5) gm/dL Hct 45.1 (39.0-53.0) % MCV 96.2 (80.0-100.0) fL MCH 30.6 (25.0-35.0) pg MCHC 31.8 (31.0-37.0) g/dL RDW 15.0 (11.5-15.5) % Plt Count 208 (150-450) k/uL MPV 8.1 Neutrophils % 68 % Lymphocytes % 15 % Monocytes % 7 % Eosinophils % 8 % Basophils % 1 % Neutrophils # 5.3 (1.3-7.7) k/uL Lymphocytes # 1.1 (1.0-4.8) k/uL Monocytes # 0.5 (0-1.0) k/uL Eosinophils # 0.7 (0-0.7) k/uL Basophils # 0.1 (0-0.2) k/uL PT (9.0-12.0) sec INR (<1.2) APTT (22.0-30.0) sec D-Dimer (<0.60) mg/L FEU Sodium (137-145) mmol/L Potassium (3.5-5.1) mmol/L Chloride (98-107) mmol/L Carbon Dioxide (22-30) mmol/L Anion Gap mmol/L BUN (9-20) mg/dL Creatinine (0.66-1.25) mg/dL Est GFR (CKD-EPI)AfAm (>60 ml/min/1.73 sqM) Est GFR (CKD-EPI)NonAf (>60 ml/min/1.73 sqM) Glucose (74-99) mg/dL Calcium (8.4-10.2) mg/dL Magnesium (1.6-2.3) mg/dL Total Bilirubin (0.2-1.3) mg/dL AST (17-59) U/L ALT (4-49) U/L Alkaline Phosphatase (38-126) U/L Troponin I (0.000-0.034) ng/mL NT-Pro-B Natriuret Pep pg/mL Total Protein (6.3-8.2) g/dL Albumin (3.5-5.0) g/dL Lipase (23-300) U/L Urine Color Urine Appearance (Clear) Urine pH (5.0-8.0) Ur Specific Maria Stein (1.001-1.035) Urine Protein (Negative) Urine Glucose (UA) (Negative) Urine Ketones (Negative) Urine Blood (Negative) Urine Nitrite (Negative) Urine Bilirubin (Negative) Urine Urobilinogen (<2.0) mg/dL Ur Leukocyte Esterase (Negative) Urine RBC (0-5) /hpf Urine WBC (0-5) /hpf Urine Mucus (None) /hpf Urine Opiates Screen (NotDetected) Ur Oxycodone Screen (NotDetected) Urine Methadone Screen (NotDetected) Ur Propoxyphene Screen (NotDetected) Ur Barbiturates Screen (NotDetected) U Tricyclic Antidepress (NotDetected) Ur Phencyclidine Scrn (NotDetected) Ur Amphetamines Screen (NotDetected) U Methamphetamines Scrn (NotDetected) U Benzodiazepines Scrn (NotDetected) Urine Cocaine Screen (NotDetected) U Marijuana (THC) Screen (NotDetected) Coronavirus (PCR) Not Detected (Not Detectd) - Radiology Data Radiology results: report reviewed (Chest x-ray: There is improvement in the small pleural effusions compared to last exam. Borderline cardiomegaly.) Gallbladder ultrasound: There are non-shadowing gallstones. Mild gallbladder wall thickening suggestive of cholecystitis. No dilated ducts. No focal liver defect. CT angiography chest with IV contrast: No evidence of pulmonary embolism. There is cardiomegaly with small right pleural effusion. Minimal contrast reflux into the inferior vena cava. This could be congestive heart failure. Disposition Clinical Impression: Chest pain, Abdominal pain, Cholelithiasis, Pleural effusion, right Disposition: HOME SELF-CARE Condition: Stable Instructions (If sedation given, give patient instructions): Chest Pain (ED), Gallstones (ED), Pleural Effusion (ED), Abdominal Pain (ED) Additional Instructions: Return to the ER immediately should you develop new or worsening pain, shortness of breath, a fever, vomiting, feeling dizzy or faint, or new or worsening symptoms. Follow up closely with your primary care provider, as well as a general surgeon. Is patient prescribed a controlled substance at d/c from ED?: No Referrals: None,Stated [Primary Care Provider] - 1-2 days Saranya Wells MD [REFERRING] - 1-2 days Ama Crystal DO [Doctor of Osteopathic Medicine] - 1-2 days Time of Disposition: 18:12
[2021-04-28] MEDS ORDERED: KETOROLAC 30 MG/ML 1 ML VIAL IVP STA (15:22)
[2021-04-28] MEDS ORDERED: MAG HYDROX/AL HYDROX/SIMETH 30 ML, HYOSCYAMINE ELIXIR 10 ML, LIDOCAINE VISCOUS 2% 10 ML PO STA ×3 (15:23)
[2021-04-28 15:39] LABS: Basophils # (A) 0.1 k/uL (0-0.2); Basophils % (A) 1 %; Eosinophils # (A) 0.7 k/uL (0-0.7); Eosinophils % (A) 8 %; HCT 45.1 % (39.0-53.0); HGB 14.4 gm/dL (13.0-17.5); Lymphocytes # (A) 1.1 k/uL (1.0-4.8); Lymphocytes % (A) 15 %; MCH 30.6 pg (25.0-35.0); MCHC 31.8 g/dL (31.0-37.0); MCV 96.2 fL (80.0-100.0); Mean Platelet Volume 8.1; Monocytes # (A) 0.5 k/uL (0-1.0); Monocytes % (A) 7 %; Neutrophils # (A) 5.3 k/uL (1.3-7.7); Neutrophils % (A) 68 %; Platelet Count 208 k/uL (150-450); RBC 4.69 m/uL (4.30-5.90); WBC 7.8 k/uL (3.8-10.6)
[2021-04-28 15:43] LABS: Appearance,Urine Clear (Clear); Bilirubin,Urine Negative (Negative); Blood,Urine Negative (Negative); Color,Urine Yellow; Glucose,Urine (UA) Negative (Negative); Ketones,Urine Negative (Negative); Leukocyte Esterase,Urine Negative (Negative); Mucus,Urine Rare /hpf; Nitrite,Urine Negative (Negative); Protein,Urine 1+ (Negative); RBC,Urine 1 /hpf (0-5); Specific Gravity,Urine 1.017 (1.001-1.035); WBC,Urine 1 /hpf (0-5)
[2021-04-28 15:52] LABS: ALT 41 U/L (4-49); AST 43 U/L (17-59); African American GFR (CKD) >90 (>60 ml/min/1.73 sqM); Albumin 3.3 g/dL (3.5-5.0); Alkaline Phosphatase 163 U/L (38-126); Anion Gap 9 mmol/L; Blood Urea Nitrogen 18 mg/dL (9-20); Calcium 8.6 mg/dL (8.4-10.2); Carbon Dioxide 23 mmol/L (22-30); Chloride 106 mmol/L (98-107); Glucose 91 mg/dL (74-99); Lipase 178 U/L (23-300); Magnesium 1.8 mg/dL (1.6-2.3); Non-African American GFR(CKD) >90 (>60 ml/min/1.73 sqM); Potassium 4.8 mmol/L (3.5-5.1); Sodium 138 mmol/L (137-145); Total Bilirubin 0.6 mg/dL (0.2-1.3); Total Protein 6.5 g/dL (6.3-8.2)
--- NOTE | 2021-04-28 15:54 | XR ---
EXAMINATION TYPE: XR chest 2V DATE OF EXAM: 04/28/2021 COMPARISON: 04/26/2021 HISTORY: Chest pain TECHNIQUE: 2 views FINDINGS: There is no heart failure nor confluent pneumonic infiltrate. Costophrenic angles are fairl y clear. Heart is borderline enlarged. There are no hilar masses. IMPRESSION: There is improvement in the small pleural effusions compared to last exam. Borderline car diomegaly.
--- NOTE | 2021-04-28 16:39 | US ---
EXAMINATION TYPE: US gallbladder DATE OF EXAM: 04/28/2021 COMPARISON: CT 02/25/2021 CLINICAL HISTORY: pain. epigastric pain EXAM MEASUREMENTS: Liver Length: 14.7 cm Gallbladder Wall: 0.6 cm CBD: 0.4 cm Right Kidney: 11.6 x 5.1 x 6.6 cm Pancreas: visualized portions wnl Liver: wnl Gallbladder: small echogenic focus, mobile, doesn't shadow. Thickened wall. Evidence for sonographic Mobley's sign: Yes CBD: wnl Right Kidney: No hydronephrosis or masses seen IMPRESSION: There are nonshadowing gallstones. Mild gallbladder wall thickening suggestive of cholecystitis. No d ilated ducts. No focal liver defect.
[2021-04-28] MEDS ORDERED: MORPHINE SULFATE 4 MG/ML SYRINGE IVP STA (16:48)
[2021-04-28 17:08] LABS: Partial Thromboplastin Time 22.8 sec (22.0-30.0); Prothrombin Time 10.6 sec (9.0-12.0)
[2021-04-28] MEDS ORDERED: SODIUM CHLORIDE 0.9% 1,000 ML IV ONE (17:20)
--- NOTE | 2021-04-28 17:55 | CT ---
EXAMINATION TYPE: CT chest angio for PE DATE OF EXAM: 04/28/2021 COMPARISON: 02/26/2021 HISTORY: Rt side chest pain, elevated d-dimer. Hx CHF CT DLP: 500.8 mGycm Automated exposure control for dose reduction was used. CONTRAST: Performed with IV Contrast, patient injected with 100 mL of Isovue 370. There are 3-D post processed images. There is some mild increased interstitial density in the posterior lung narayanan. There is no evidence of pulmonary mass. Heart appears enlarged. There is no pericardial effusion. There are no hilar jonny s. There is no mediastinal adenopathy. Thoracic spine is intact. There is no compression fracture. Sternum is intact. There is small right p leural effusion. There is contrast reflux into the inferior vena cava. IMPRESSION: No evidence of pulmonary embolism. There is cardiomegaly with small right pleural effusion. Minimal c ontrast reflux into the inferior vena cava. This could be congestive heart failure.
[2021-04-28 18:09] VITALS: PULSE 103
[2021-04-28 18:09] LABS: Amphetamine Screen,Urine Not Detected (NotDetected); Barbiturate Screen,Urine Not Detected (NotDetected); Benzodiazepines Screen,Urine Detected (NotDetected); Cocaine Screen,Urine Not Detected (NotDetected); Methadone Screen, Urine Not Detected (NotDetected); Opiate Screen,Urine Detected (NotDetected); Oxycodone Screen, Urine Not Detected (NotDetected); Phencyclidine Screen,Urine Not Detected (NotDetected); Tricyclic Antidepressant,Urine Not Detected (NotDetected); Urn Cannabinoid Scrn Detected (NotDetected)
[2021-04-28 19:08] VITALS: BP 160/115; RESP 18
== END 2021-04-28 18:59 | disposition home or self-care (01) ==
LOC: EC 14:39
DX: K80.20 Calculus of gallbladder without cholecystitis without obstruction (principal); J90 Pleural effusion, not elsewhere classified; J44.9 Chronic obstructive pulmonary disease, unspecified; F17.200 Nicotine dependence, unspecified, uncomplicated; Z88.6 Allergy status to analgesic agent; Z20.822 Contact with and (suspected) exposure to COVID-19; Z88.8 Allergy status to other drugs, medicaments and biological substances; Z79.01 Long term (current) use of anticoagulants; Z79.810 Long term (current) use of selective estrogen receptor modulators (SERMs)
CPT/HCPCS: 99284; 96361; 96374; 36415; 93005; 85379; 83880; 80053; 83690; 83735; 84484; 85025; 85610; 85730; 81001; 80306; 87635; 71046; 76705; 71275; J2270; Q9967

== ENCOUNTER 2021-04-29 15:46 | Emergency (ER) | payer OTHER ==
[2021-04-29] MEDS ORDERED: SODIUM CHLORIDE 0.9% 1,000 ML IV STA (16:13)
[2021-04-29] MEDS ORDERED: MORPHINE SULFATE 4 MG/ML SYRINGE IV STA (16:13)
[2021-04-29] MEDS ORDERED: ONDANSETRON 4 MG/2 ML VIAL IVP STA (16:13)
[2021-04-29 16:36] LABS: Basophils # (A) 0.1 k/uL (0-0.2); Basophils % (A) 1 %; Eosinophils # (A) 0.4 k/uL (0-0.7); Eosinophils % (A) 6 %; HCT 44.8 % (39.0-53.0); HGB 14.3 gm/dL (13.0-17.5); Hypochromasia Slight; Lymphocytes # (A) 1.2 k/uL (1.0-4.8); Lymphocytes % (A) 16 %; MCH 30.7 pg (25.0-35.0); MCHC 31.9 g/dL (31.0-37.0); MCV 96.1 fL (80.0-100.0); Mean Platelet Volume 9.5; Monocytes # (A) 0.4 k/uL (0-1.0); Monocytes % (A) 6 %; Neutrophils # (A) 5.3 k/uL (1.3-7.7); Neutrophils % (A) 70 %; Platelet Count 219 k/uL (150-450); RBC 4.67 m/uL (4.30-5.90); RDW 14.9 % (11.5-15.5); WBC 7.6 k/uL (3.8-10.6)
--- NOTE | 2021-04-29 16:49 | XR ---
EXAMINATION TYPE: XR chest 1V portable DATE OF EXAM: 04/29/2021 Comparison: 04/28/2021 Clinical History: 50-year-old male abdominal pain Findings: Heart mildly enlarged. Peribronchial cuffing and increased interstitial and vascular density. No nery k consolidation or pleural effusion. Impression: 1. Myocardium. 2. Increasing interstitial and vascular density. Correlate to exclude developing CHF with pulmonary v ascular congestion versus atypical pneumonias.
[2021-04-29] MEDS ORDERED: HYDROmorphone 1 MG/ML 1 ML SYRINGE IVP STA (17:35)
--- NOTE | 2021-04-29 18:45 | ED ---
General Adult HPI - General Chief complaint: Shortness of Breath Stated complaint: RIGHT SIDED PAIN Time Seen by Provider: 04/29/21 16:04 Source: EMS, RN notes reviewed Mode of arrival: EMS Limitations: no limitations - History of Present Illness Initial comments: A showed a 50-year-old male that presents to emergency department with multiple complaints. Patient is a frequent at this emergency department he is well- known. He notes that he was recently diagnosed with gallstones and some fluid on his lungs. He notes that he is having right upper quadrant pain. Patient denied any aggravating or alleviating factors. Patient has displayed drug-see karthikeyan tendencies in the past. Patient denied any chest pain shortness of breath headache nausea vomiting diarrhea constipation fever fatigue chills. - Related Data Home Medications Medication Instructions Recorded Confirmed Furosemide [Lasix] 20 mg PO BID 04/20/21 04/28/21 Multivitamins, Thera [Multivitamin 1 tab PO DAILY@1200 04/25/21 04/28/21 (formulary)] Previous Rx's Medication Instructions Recorded ALPRAZolam [Xanax] 0.25 mg PO TID PRN #6 tab 04/21/21 Metoprolol Tartrate [Lopressor] 25 mg PO BID 30 Days #60 tab 04/21/21 Nicotine 14Mg/24Hr Patch [Habitrol] 1 patch TRANSDERM DAILY #20 patch 04/21/21 Nitroglycerin Sl Tabs [Nitrostat] 0.4 mg SUBLINGUAL Q5M PRN #30 tab 04/21/21 Pantoprazole [Protonix] 40 mg PO AC-BRKFST 30 Days #30 tab 04/21/21 Spironolactone [Aldactone] 25 mg PO DAILY #30 tab 04/21/21 lisinopriL [Zestril] 5 mg PO BID #60 tab 04/21/21 HYDROcodone/APAP 5-325MG [[place] 1 tab PO BID PRN #4 tab 04/26/21 5-325] Azithromycin [Zithromax] 500 mg PO DAILY #5 tab 04/29/21 Allergies Allergy/AdvReac Type Severity Reaction Status Date / Time ibuprofen [From Motrin] AdvReac Nausea & Verified 04/28/21 15:05 Vomiting simvastatin [From Zocor] AdvReac Dizziness Verified 04/28/21 15:05 Review of Systems ROS Statement: Those systems with pertinent positive or pertinent negative responses have been documented in the HPI. ROS Other: All systems not noted in ROS Statement are negative. Past Medical History Past Medical History: Atrial Fibrillation, COPD, Hyperlipidemia, Hypertension, Pneumonia Additional Past Medical History / Comment(s): Other HX; Costochondritis, chronic pain, chronic low back pain with bilateral sciatica, neuropathy bilateral hands/feet, migraines, kidney stones, past partial small bowel obstruction. HTN the last 10 yrs Stopped taking meds 5 yrs ago. COPD due to tobacco use. MArijuna use 3 -4 times a week - Smoke it History of Any Multi-Drug Resistant Organisms: None Reported, MRSA Date of last positivie culture/infection: 04/10/18 MDRO Source:: TOE Past Surgical History: Heart Catheterization, Orthopedic Surgery Additional Past Surgical History / Comment(s): 03/14/18 Cardiac cath-normal coronaries, L shoulder rotator cuff repair x2, cervical injection. Past Anesthesia/Blood Transfusion Reactions: No Reported Reaction Past Psychological History: Anxiety, Bipolar, Depression, Schizophrenia Smoking Status: Current every day smoker Past Alcohol Use History: None Reported Past Drug Use History: Marijuana, Prescription Drug Abuse - Past Family History Father Family Medical History: Myocardial Infarction (MT) Additional Family Medical History / Comment(s): mi at age 35, still living Mother Family Medical History: Myocardial Infarction (MT) Additional Family Medical History / Comment(s): Mother has had at least one MT- pt unsure at what age. He has not had much contact with his mother since he was 17 yrs old. General Exam Limitations: no limitations General appearance: alert, in no apparent distress Head exam: Present: atraumatic, normocephalic, normal inspection Eye exam: Present: normal appearance, PERRL, EOMI. Absent: scleral icterus, conjunctival injection, periorbital swelling ENT exam: Present: normal exam, mucous membranes moist Neck exam: Present: normal inspection Respiratory exam: Present: normal lung sounds bilaterally. Absent: respiratory distress, wheezes, rales, rhonchi, stridor Cardiovascular Exam: Present: regular rate, normal rhythm, normal heart sounds. Absent: systolic murmur, diastolic murmur, rubs, gallop, clicks GI/Abdominal exam: Present: soft, normal bowel sounds. Absent: distended, tenderness, guarding, rebound, rigid Extremities exam: Present: normal inspection, full ROM, normal capillary refill. Absent: tenderness, pedal edema, joint swelling, calf tenderness Back exam: Present: normal inspection Neurological exam: Present: alert, oriented X3 Psychiatric exam: Present: normal affect, normal mood Skin exam: Present: warm, dry, intact, normal color. Absent: rash Course Vital Signs 04/29/21 15:51 Temperature 97.9 F Pulse Rate 20 L Respiratory 105 H Rate Blood Pressure 171/134 O2 Sat by Pulse 100 Oximetry Medical Decision Making - Medical Decision Making 42-year-old male complaining of right upper quadrant pain. Labs, chest x-ray, 4 mg of morphine ordered. Labs unremarkable. Patient still in moderate pain 1 mg of Dilaudid ordered. Patient was seen resting comfortably that after this. Chest x-ray shows some vascular congestion. Antibiotics sent for possible atypical pneumonia. Case discussed with Dr. Ponce - Lab Data Result diagrams: 04/29/21 16:16 Lab Results 04/29/21 Range/Units 16:16 WBC 7.6 (3.8-10.6) k/uL RBC 4.67 (4.30-5.90) m/uL Hgb 14.3 (13.0-17.5) gm/dL Hct 44.8 (39.0-53.0) % MCV 96.1 (80.0-100.0) fL MCH 30.7 (25.0-35.0) pg MCHC 31.9 (31.0-37.0) g/dL RDW 14.9 (11.5-15.5) % Plt Count 219 (150-450) k/uL MPV 9.5 Neutrophils % 70 % Lymphocytes % 16 % Monocytes % 6 % Eosinophils % 6 % Basophils % 1 % Neutrophils # 5.3 (1.3-7.7) k/uL Lymphocytes # 1.2 (1.0-4.8) k/uL Monocytes # 0.4 (0-1.0) k/uL Eosinophils # 0.4 (0-0.7) k/uL Basophils # 0.1 (0-0.2) k/uL Hypochromasia Slight - Radiology Data Radiology results: report reviewed, image reviewed Chest x-ray: Mild cardiomegaly. Increasing interstitial vascular density. Correlate to exclude developing CHF with pulmonary vascular congestion versus atypical pneumonias. Disposition Clinical Impression: Abdominal pain, Pleural effusion, right Disposition: HOME SELF-CARE Condition: Stable Instructions (If sedation given, give patient instructions): Abdominal Pain (ED) Additional Instructions: Please return to the Emergency Department if symptoms worsen or any other concerns. Take antibiotics as prescribed until complete. Is patient prescribed a controlled substance at d/c from ED?: No Referrals: None,Stated [Primary Care Provider] - 1-2 days Time of Disposition: 18:45
[2021-04-29 19:20] VITALS: BP 156/96; PULSE 101; RESP 18; TEMP 98.5
[2021-04-29 19:29] LABS: ALT 35 U/L (4-49); AST 37 U/L (17-59); African American GFR (CKD) >90 (>60 ml/min/1.73 sqM); Albumin 3.2 g/dL (3.5-5.0); Alkaline Phosphatase 121 U/L (38-126); Amylase 51 U/L (30-110); Anion Gap 6 mmol/L; Blood Urea Nitrogen 19 mg/dL (9-20); Calcium 8.5 mg/dL (8.4-10.2); Carbon Dioxide 24 mmol/L (22-30); Chloride 106 mmol/L (98-107); Glucose 85 mg/dL (74-99); Lipase 92 U/L (23-300); Non-African American GFR(CKD) >90 (>60 ml/min/1.73 sqM); Potassium 4.7 mmol/L (3.5-5.1); Sodium 136 mmol/L (137-145); Total Bilirubin 0.9 mg/dL (0.2-1.3); Total Protein 6.5 g/dL (6.3-8.2)
== END 2021-04-29 19:20 | disposition home or self-care (01) ==
LOC: EC 15:46
DX: J90 Pleural effusion, not elsewhere classified (principal); R10.11 Right upper quadrant pain; J44.9 Chronic obstructive pulmonary disease, unspecified; F17.200 Nicotine dependence, unspecified, uncomplicated; I10 Essential (primary) hypertension; Z88.8 Allergy status to other drugs, medicaments and biological substances; Z88.6 Allergy status to analgesic agent; Z79.899 Other long term (current) drug therapy; Z87.442 Personal history of urinary calculi
CPT/HCPCS: 36415; 80053; 82150; 83690; 85025; 71045; 99285; 96374; 96375; 96361; J2270; J2405; J1170

== ENCOUNTER 2021-05-01 03:32 | Emergency (ER) | payer OTHER ==
[2021-05-01 05:09] VITALS: RESP 18; TEMP 98.3
[2021-05-01] MEDS ORDERED: SODIUM CHLORIDE 0.9% 1,000 ML IV STA (07:16)
--- NOTE | 2021-05-01 07:20 | ED ---
Abdominal Pain HPI - General Chief Complaint: Abdominal Pain Stated Complaint: Abdominal Pain Time Seen by Provider: 05/01/21 06:56 Source: patient, RN notes reviewed Mode of arrival: ambulatory Limitations: no limitations, physical limitation - History of Present Illness Initial Comments: This a 50-year-old male presents emergency Department who is well-known emergency Department with chief complaint of abdominal pain. Patient's states he has recurrent issues. Patient states that he is homeless and states that he is here at this time. Patient complains nausea no vomiting diffuse abdominal discomfort appears or chills no dysuria no hematuria no diarrhea no constipation - Related Data Home Medications Medication Instructions Recorded Confirmed Furosemide [Lasix] 20 mg PO BID 04/20/21 04/28/21 Multivitamins, Thera [Multivitamin 1 tab PO DAILY@1200 04/25/21 04/28/21 (formulary)] Previous Rx's Medication Instructions Recorded ALPRAZolam [Xanax] 0.25 mg PO TID PRN #6 tab 04/21/21 Metoprolol Tartrate [Lopressor] 25 mg PO BID 30 Days #60 tab 04/21/21 Nicotine 14Mg/24Hr Patch [Habitrol] 1 patch TRANSDERM DAILY #20 patch 04/21/21 Nitroglycerin Sl Tabs [Nitrostat] 0.4 mg SUBLINGUAL Q5M PRN #30 tab 04/21/21 Pantoprazole [Protonix] 40 mg PO AC-BRKFST 30 Days #30 tab 04/21/21 Spironolactone [Aldactone] 25 mg PO DAILY #30 tab 04/21/21 lisinopriL [Zestril] 5 mg PO BID #60 tab 04/21/21 HYDROcodone/APAP 5-325MG [[place] 1 tab PO BID PRN #4 tab 04/26/21 5-325] Azithromycin [Zithromax] 500 mg PO DAILY #5 tab 04/29/21 Allergies Allergy/AdvReac Type Severity Reaction Status Date / Time ibuprofen [From Motrin] AdvReac Nausea & Verified 05/01/21 05:09 Vomiting simvastatin [From Zocor] AdvReac Dizziness Verified 05/01/21 05:09 Review of Systems ROS Statement: Those systems with pertinent positive or pertinent negative responses have been documented in the HPI. ROS Other: All systems not noted in ROS Statement are negative. Past Medical History Past Medical History: Atrial Fibrillation, COPD, Hyperlipidemia, Hypertension, Pneumonia Additional Past Medical History / Comment(s): Other HX; Costochondritis, chronic pain, chronic low back pain with bilateral sciatica, neuropathy bilateral hands/feet, migraines, kidney stones, past partial small bowel obstruction. HTN the last 10 yrs Stopped taking meds 5 yrs ago. COPD due to tobacco use. MArijuna use 3 -4 times a week - Smoke it History of Any Multi-Drug Resistant Organisms: None Reported, MRSA Date of last positivie culture/infection: 04/10/18 MDRO Source:: TOE Past Surgical History: Heart Catheterization, Orthopedic Surgery Additional Past Surgical History / Comment(s): 03/14/18 Cardiac cath-normal coronaries, L shoulder rotator cuff repair x2, cervical injection. Past Anesthesia/Blood Transfusion Reactions: No Reported Reaction Past Psychological History: Anxiety, Bipolar, Depression, Schizophrenia Smoking Status: Current every day smoker Past Alcohol Use History: None Reported Past Drug Use History: Marijuana, Prescription Drug Abuse - Past Family History Father Family Medical History: Myocardial Infarction ([place]) Additional Family Medical History / Comment(s): mi at age 35, still living Mother Family Medical History: Myocardial Infarction ([place]) Additional Family Medical History / Comment(s): Mother has had at least one [place]- pt unsure at what age. He has not had much contact with his mother since he was 17 yrs old. General Exam Limitations: no limitations General appearance: alert, in no apparent distress Head exam: Present: atraumatic, normocephalic, normal inspection Eye exam: Present: normal appearance, PERRL, EOMI. Absent: scleral icterus, conjunctival injection, periorbital swelling ENT exam: Present: normal exam, normal oropharynx, mucous membranes moist Neck exam: Present: normal inspection, full ROM. Absent: tenderness, men ingismus, lymphadenopathy Respiratory exam: Present: normal lung sounds bilaterally. Absent: respiratory distress, wheezes, rales, rhonchi, stridor Cardiovascular Exam: Present: regular rate, normal rhythm, normal heart sounds. Absent: systolic murmur, diastolic murmur, rubs, gallop, clicks GI/Abdominal exam: Present: soft, tenderness, normal bowel sounds. Absent: distended, guarding, rebound, rigid Course Vital Signs 05/01/21 05:04 Temperature 98.3 F Pulse Rate 94 Respiratory 18 Rate Blood Pressure 146/102 O2 Sat by Pulse 97 Oximetry Medical Decision Making - Medical Decision Making Patient labs are unremarkable. Patient has chronic issues with no specific new complaints at this time. Patient will be discharged in stable condition return parameters were discussed. - Lab Data Result diagrams: 05/01/21 07:27 05/01/21 07:27 Lab Results 05/01/21 05/01/21 Range/Units 07:27 07:27 WBC 9.2 (3.8-10.6) k/uL RBC 4.96 (4.30-5.90) m/uL Hgb 15.4 (13.0-17.5) gm/dL Hct 48.3 (39.0-53.0) % MCV 97.5 (80.0-100.0) fL MCH 31.0 (25.0-35.0) pg MCHC 31.8 (31.0-37.0) g/dL RDW 14.8 (11.5-15.5) % Plt Count 240 (150-450) k/uL MPV 8.1 Neutrophils % 67 % Lymphocytes % 19 % Monocytes % 7 % Eosinophils % 5 % Basophils % 1 % Neutrophils # 6.1 (1.3-7.7) k/uL Lymphocytes # 1.7 (1.0-4.8) k/uL Monocytes # 0.6 (0-1.0) k/uL Eosinophils # 0.5 (0-0.7) k/uL Basophils # 0.1 (0-0.2) k/uL Hypochromasia Slight Sodium 135 L (137-145) mmol/L Potassium 4.7 (3.5-5.1) mmol/L Chloride 107 (98-107) mmol/L Carbon Dioxide 21 L (22-30) mmol/L Anion Gap 7 mmol/L BUN 22 H (9-20) mg/dL Creatinine 1.18 (0.66-1.25) mg/dL Est GFR (CKD-EPI)AfAm 84 (>60 ml/min/1.73 sqM) Est GFR (CKD-EPI)NonAf 73 (>60 ml/min/1.73 sqM) Glucose 88 (74-99) mg/dL Calcium 8.5 (8.4-10.2) mg/dL Total Bilirubin 0.8 (0.2-1.3) mg/dL AST 39 (17-59) U/L ALT 32 (4-49) U/L Alkaline Phosphatase 113 (38-126) U/L Total Protein 6.5 (6.3-8.2) g/dL Albumin 3.2 L (3.5-5.0) g/dL Lipase 160 (23-300) U/L Disposition Clinical Impression: Abdominal pain Disposition: HOME SELF-CARE Condition: Stable Instructions (If sedation given, give patient instructions): Abdominal Pain (ED) Additional Instructions: Please return to the Emergency Department if symptoms worsen or any other concerns. Is patient prescribed a controlled substance at d/c from ED?: No Referrals: None,Stated [Primary Care Provider] - 1-2 days Time of Disposition: 08:19
[2021-05-01 07:40] LABS: Basophils # (A) 0.1 k/uL (0-0.2); Basophils % (A) 1 %; Eosinophils # (A) 0.5 k/uL (0-0.7); Eosinophils % (A) 5 %; HCT 48.3 % (39.0-53.0); HGB 15.4 gm/dL (13.0-17.5); Hypochromasia Slight; Lymphocytes # (A) 1.7 k/uL (1.0-4.8); Lymphocytes % (A) 19 %; MCHC 31.8 g/dL (31.0-37.0); MCV 97.5 fL (80.0-100.0); Mean Platelet Volume 8.1; Monocytes # (A) 0.6 k/uL (0-1.0); Monocytes % (A) 7 %; Neutrophils # (A) 6.1 k/uL (1.3-7.7); Neutrophils % (A) 67 %; Platelet Count 240 k/uL (150-450); RBC 4.96 m/uL (4.30-5.90); RDW 14.8 % (11.5-15.5); WBC 9.2 k/uL (3.8-10.6)
[2021-05-01 08:07] LABS: Albumin 3.2 g/dL (3.5-5.0); Calcium 8.5 mg/dL (8.4-10.2); Potassium 4.7 mmol/L (3.5-5.1); Total Bilirubin 0.8 mg/dL (0.2-1.3); Total Protein 6.5 g/dL (6.3-8.2)
[2021-05-01 08:37] VITALS: PULSE 103
[2021-05-01 08:53] VITALS: BP 174/110
[2021-05-01 09:10] LABS: Appearance,Urine Clear (Clear); Bilirubin,Urine Negative (Negative); Blood,Urine Negative (Negative); Color,Urine Yellow; Glucose,Urine (UA) Negative (Negative); Ketones,Urine Negative (Negative); Leukocyte Esterase,Urine Negative (Negative); Nitrite,Urine Negative (Negative); Protein,Urine Trace (Negative); Specific Gravity,Urine 1.017 (1.001-1.035); Urobilinogen,Urine <2.0 mg/dL (<2.0)
== END 2021-05-01 08:53 | disposition home or self-care (01) ==
LOC: EC 03:32
DX: R10.9 Unspecified abdominal pain (principal); I10 Essential (primary) hypertension; J44.9 Chronic obstructive pulmonary disease, unspecified; F17.200 Nicotine dependence, unspecified, uncomplicated; Z88.6 Allergy status to analgesic agent; Z59.00 Homelessness unspecified; Z88.5 Allergy status to narcotic agent
CPT/HCPCS: 36415; 80053; 83690; 85025; 81003; 99284; 96374; 96361; J1790

== ENCOUNTER 2021-05-06 06:18 | Emergency (ER) | payer OTHER ==
[2021-05-06] MEDS ORDERED: SODIUM CHLORIDE 0.9% 1,000 ML IV STA (06:52)
[2021-05-06] MEDS ORDERED: MORPHINE SULFATE 4 MG/ML SYRINGE IV STA (06:52)
[2021-05-06 07:01] LABS: Basophils % (A) 0 %; Eosinophils # (A) 0.4 k/uL (0-0.7); Eosinophils % (A) 4 %; HCT 44.9 % (39.0-53.0); HGB 14.3 gm/dL (13.0-17.5); Hypochromasia Slight; Lymphocytes # (A) 1.4 k/uL (1.0-4.8); Lymphocytes % (A) 17 %; MCHC 31.8 g/dL (31.0-37.0); MCV 97.4 fL (80.0-100.0); Monocytes # (A) 0.5 k/uL (0-1.0); Monocytes % (A) 5 %; Neutrophils # (A) 5.9 k/uL (1.3-7.7); Neutrophils % (A) 71 %; Platelet Count 219 k/uL (150-450); RBC 4.62 m/uL (4.30-5.90); RDW 15.4 % (11.5-15.5); WBC 8.2 k/uL (3.8-10.6)
[2021-05-06 07:10] LABS: INR 1.1 (<1.2); Partial Thromboplastin Time 22.1 sec (22.0-30.0); Prothrombin Time 11.6 sec (9.0-12.0)
[2021-05-06 07:25] LABS: ALT 28 U/L (4-49); AST 36 U/L (17-59); African American GFR (CKD) >90 (>60 ml/min/1.73 sqM); Alkaline Phosphatase 88 U/L (38-126); Anion Gap 7 mmol/L; Blood Urea Nitrogen 18 mg/dL (9-20); Calcium 8.2 mg/dL (8.4-10.2); Carbon Dioxide 21 mmol/L (22-30); Chloride 109 mmol/L (98-107); Glucose 106 mg/dL (74-99); Magnesium 1.8 mg/dL (1.6-2.3); Non-African American GFR(CKD) >90 (>60 ml/min/1.73 sqM); Sodium 137 mmol/L (137-145); Total Bilirubin 0.8 mg/dL (0.2-1.3); Total Protein 6.2 g/dL (6.3-8.2)
--- NOTE | 2021-05-06 07:30 | XR ---
EXAMINATION TYPE: XR chest 2V DATE OF EXAM: 05/06/2021 7:21 AM COMPARISON:Chest radiograph from 04/29/2021. CLINICAL INDICATION:Male, 50 years old with history of Chest Pain; TECHNIQUE: Frontal and lateral views of the chest. FINDINGS: Lungs/Pleura: There is no evidence of pleural effusion, focal consolidation, or pneumothorax. Pulmonary vascularity: Pulmonary vascular congestion not significantly changed from prior. Heart/mediastinum: Cardiomediastinal silhouette is prominent in size. Musculoskeletal: No acute osseous pathology. IMPRESSION: No significant change from prior given differences in technique evidence if persistent pulmonary vasc ular congestion.
[2021-05-06 07:35] VITALS: RESP 18
[2021-05-06] MEDS ORDERED: MORPHINE SULFATE 4 MG/ML SYRINGE IVP STA (08:07)
--- NOTE | 2021-05-06 08:08 | ED ---
Chest Pain HPI - General Chief Complaint: Chest Pain Stated Complaint: Chest Pain, Leg Swelling Time Seen by Provider: 05/06/21 06:52 Source: patient, RN notes reviewed Mode of arrival: wheelchair Limitations: no limitations - History of Present Illness Initial Comments: Patient is a 50-year-old male that presents to the emergency department complaining of chest pressure. He notes he does have a history of anxiety and panic attacks. Patient notes that is been coming and going for the past 2 days. Patient is also well known to this emergency department. Patient denied any alleviating or aggravating factors. He was otherwise well-appearing sitting up comfortably in bed in no apparent distress. He denied any shortness of breath headache nausea vomiting diarrhea constipation fever fatigue chills. - Related Data Home Medications Medication Instructions Recorded Confirmed Furosemide [Lasix] 20 mg PO BID 04/20/21 04/28/21 Multivitamins, Thera [Multivitamin 1 tab PO DAILY@1200 04/25/21 04/28/21 (formulary)] Previous Rx's Medication Instructions Recorded ALPRAZolam [Xanax] 0.25 mg PO TID PRN #6 tab 04/21/21 Metoprolol Tartrate [Lopressor] 25 mg PO BID 30 Days #60 tab 04/21/21 Nicotine 14Mg/24Hr Patch [Habitrol] 1 patch TRANSDERM DAILY #20 patch 04/21/21 Nitroglycerin Sl Tabs [Nitrostat] 0.4 mg SUBLINGUAL Q5M PRN #30 tab 04/21/21 Pantoprazole [Protonix] 40 mg PO AC-BRKFST 30 Days #30 tab 04/21/21 Spironolactone [Aldactone] 25 mg PO DAILY #30 tab 04/21/21 lisinopriL [Zestril] 5 mg PO BID #60 tab 04/21/21 HYDROcodone/APAP 5-325MG [[place] 1 tab PO BID PRN #4 tab 04/26/21 5-325] Azithromycin [Zithromax] 500 mg PO DAILY #5 tab 04/29/21 Allergies Allergy/AdvReac Type Severity Reaction Status Date / Time ibuprofen [From Motrin] AdvReac Nausea & Verified 05/06/21 06:19 Vomiting simvastatin [From Zocor] AdvReac Dizziness Verified 05/06/21 06:19 Review of Systems ROS Statement: Those systems with pertinent positive or pertinent negative responses have been documented in the HPI. ROS Other: All systems not noted in ROS Statement are negative. EKG Findings - EKG Comments: EKG Findings:: Ventricular rate 110 bpm, CO interval 202 ms, QRS duration 94 ms, QTC 489 ms, PRT axes 22/5/-70, sinus tachycardia, possible left atrial enlargement, ST and T wave abnormality consider lateral ischemia, abnormal ECG. Past Medical History Past Medical History: Atrial Fibrillation, COPD, Hyperlipidemia, Hypertension, Pneumonia Additional Past Medical History / Comment(s): Other HX; Costochondritis, chronic pain, chronic low back pain with bilateral sciatica, neuropathy bilateral hands/feet, migraines, kidney stones, past partial small bowel obstruction. HTN the last 10 yrs Stopped taking meds 5 yrs ago. COPD due to tobacco use. MArijuna use 3 -4 times a week - Smoke it History of Any Multi-Drug Resistant Organisms: None Reported, MRSA Date of last positivie culture/infection: 04/10/18 MDRO Source:: TOE Past Surgical History: Heart Catheterization, Orthopedic Surgery Additional Past Surgical History / Comment(s): 03/14/18 Cardiac cath-normal coronaries, L shoulder rotator cuff repair x2, cervical injection. Past Anesthesia/Blood Transfusion Reactions: No Reported Reaction Past Psychological History: Anxiety, Bipolar, Depression, Schizophrenia Smoking Status: Current every day smoker Past Alcohol Use History: None Reported Past Drug Use History: Marijuana, Prescription Drug Abuse - Past Family History Father Family Medical History: Myocardial Infarction ([place]) Additional Family Medical History / Comment(s): mi at age 35, still living Mother Family Medical History: Myocardial Infarction ([place]) Additional Family Medical History / Comment(s): Mother has had at least one [place]- pt unsure at what age. He has not had much contact with his mother since he was 17 yrs old. General Exam Limitations: no limitations General appearance: alert, in no apparent distress, obese Head exam: Present: atraumatic, normocephalic, normal inspection Eye exam: Present: normal appearance, PERRL, EOMI. Absent: scleral icterus, conjunctival injection, periorbital swelling ENT exam: Present: normal exam, mucous membranes moist Neck exam: Present: normal inspection Respiratory exam: Present: normal lung sounds bilaterally. Absent: respiratory distress, wheezes, rales, rhonchi, stridor Cardiovascular Exam: Present: regular rate, normal rhythm, normal heart sounds. Absent: systolic murmur, diastolic murmur, rubs, gallop, clicks GI/Abdominal exam: Present: soft, normal bowel sounds. Absent: distended, tenderness, guarding, rebound, rigid Extremities exam: Present: normal inspection, full ROM, normal capillary refill. Absent: tenderness, pedal edema, joint swelling, calf tenderness Neurological exam: Present: alert, oriented X3 Psychiatric exam: Present: normal affect, normal mood Skin exam: Present: warm, dry, intact, normal color. Absent: rash Course Vital Signs 05/06/21 05/06/21 06:19 07:35 Temperature 96.0 F L Pulse Rate 122 H 112 H Respiratory 22 18 Rate Blood Pressure 157/125 167/87 O2 Sat by Pulse 100 97 Oximetry Chest Pain MDM - MDM 50-year-old male complaining of chest pressure states that similar to his panic attacks. Labs, EKG, chest x-ray, news commentator, 4 mg of morphine, 1 L normal saline ordered. Labs unremarkable and within normal limits, negative troponin. Chest x-ray shows no acute cardiopulmonary issues. No change from prior. Patient was informed of results and is agreeable with discharge home. He was informed that he needs to follow-up with his primary care and a specialist as he is been instructed to several times. Case discussed with Dr. Diana. Disposition Clinical Impression: Chest pain Disposition: HOME SELF-CARE Condition: Stable Instructions (If sedation given, give patient instructions): Chest Pain (ED) Additional Instructions: Please return to the Emergency Department if symptoms worsen or any other concerns. Follow-up with primary care in 1-2 days. Follow-up with cooker mechanic as soon as possible. Take Tylenol as needed for pain. Is patient prescribed a controlled substance at d/c from ED?: No Referrals: None,Stated [Primary Care Provider] - 1-2 days Jeferson Courtney MD [STAFF PHYSICIAN] - 1-2 days Time of Disposition: 08:03
[2021-05-06 08:56] VITALS: BP 142/71; PULSE 65; TEMP 98.2
== END 2021-05-06 08:56 | disposition home or self-care (01) ==
LOC: EC 06:18
DX: R07.89 Other chest pain (principal); M79.89 Other specified soft tissue disorders; F17.200 Nicotine dependence, unspecified, uncomplicated; J44.9 Chronic obstructive pulmonary disease, unspecified; I10 Essential (primary) hypertension; I48.91 Unspecified atrial fibrillation; Z88.8 Allergy status to other drugs, medicaments and biological substances; Z79.899 Other long term (current) drug therapy
CPT/HCPCS: 36415; 93005; 80053; 83735; 84484; 85025; 85610; 85730; 71046; 99285; 96374; 96376; 96361; J2270

== ENCOUNTER 2021-05-23 16:12 | Emergency (ER) | payer OTHER ==
[2021-05-23 16:23] VITALS: TEMP 97.5
--- NOTE | 2021-05-23 19:14 | ED ---
General Adult HPI - General Chief complaint: Chest Pain Stated complaint: chest pain Time Seen by Provider: 05/23/21 18:00 Source: patient, RN notes reviewed, old records reviewed Mode of arrival: ambulatory Limitations: no limitations - History of Present Illness Initial comments: This is a 50-year-old male who presents emergency Department with a long- standing history of chronic chest pain. Patient comes in today stating he has chest pain in his been seen multiple times for chest pain. Patient states the chest pain is same is been ongoing for at least a month. Patient denies any radiation of the pain. Patient does admit the past and having done methamphetamines but he states he hasn't done any lately. Patient denies any difficulty breathing shortness of breath. Patient states his doctor was recently treating him for urinary tract infection he thinks the medicine to feel a little lightheaded when I asked him about off balance and he stated he was not off balance just felt a little lightheaded on occasion he assumed it was the antibiotic. Patient denies any abdominal pain. Patient denies any headache patient denies numbness weakness. Patient denies any lightheadedness or dizziness. I asked the patient again if there is anything new on the chest pain he states that is the same pain for a month. Triage noted the patient stated the pain started at 4 AM he told me he always has the pain he just woke up at 4 AM. Patient states took nitroglycerin didn't help but that is typical for his chest pain. - Related Data Home Medications Medication Instructions Recorded Confirmed Furosemide [Lasix] 40 mg PO BID 04/20/21 05/23/21 Aspirin EC [Ecotrin Low Dose] 81 mg PO DAILY 05/23/21 05/23/21 Atorvastatin Calcium [Lipitor] 20 mg PO HS 05/23/21 05/23/21 Furosemide [Lasix] 20 mg PO BID 05/23/21 05/23/21 Lisinopril [Prinivil] 10 mg PO BID 05/23/21 05/23/21 Metoprolol Succinate [Toprol XL] 50 mg PO DAILY 05/23/21 05/23/21 Sulfamethox-Tmp 800-160Mg [Bactrim 1 tab PO BID 05/23/21 05/23/21 DS 800-160 mg] traMADol HCL 50 mg PO Q6H PRN 05/23/21 05/23/21 Previous Rx's Medication Instructions Recorded Nitroglycerin Sl Tabs [Nitrostat] 0.4 mg SUBLINGUAL Q5M PRN #30 tab 04/21/21 Allergies Allergy/AdvReac Type Severity Reaction Status Date / Time ibuprofen [From Motrin] AdvReac Nausea & Verified 05/24/21 13:56 Vomiting simvastatin [From Zocor] AdvReac Dizziness Verified 05/24/21 13:56 Review of Systems ROS Statement: Those systems with pertinent positive or pertinent negative responses have been documented in the HPI. ROS Other: All systems not noted in ROS Statement are negative. Past Medical History Past Medical History: Atrial Fibrillation, COPD, Hyperlipidemia, Hypertension, Pneumonia Additional Past Medical History / Comment(s): Other HX; Costochondritis, chronic pain, chronic low back pain with bilateral sciatica, neuropathy bilateral hands/feet, migraines, kidney stones, past partial small bowel obstruction. HTN the last 10 yrs Stopped taking meds 5 yrs ago. COPD due to tobacco use. MArijuna use 3 -4 times a week - Smoke it History of Any Multi-Drug Resistant Organisms: None Reported, MRSA Date of last positivie culture/infection: 04/10/18 MDRO Source:: TOE Past Surgical History: Heart Catheterization, Orthopedic Surgery Additional Past Surgical History / Comment(s): 03/14/18 Cardiac cath-normal coronaries, L shoulder rotator cuff repair x2, cervical injection. Past Anesthesia/Blood Transfusion Reactions: No Reported Reaction Past Psychological History: Anxiety, Bipolar, Depression, Schizophrenia Smoking Status: Current every day smoker Past Alcohol Use History: None Reported Past Drug Use History: Marijuana, Prescription Drug Abuse - Past Family History Father Family Medical History: Myocardial Infarction ([place]) Additional Family Medical History / Comment(s): mi at age 35, still living Mother Family Medical History: Myocardial Infarction ([place]) Additional Family Medical History / Comment(s): Mother has had at least one [place]- pt unsure at what age. He has not had much contact with his mother since he was 17 yrs old. General Exam - General Exam Comments Initial Comments: GENERAL: Patient is well-developed and well-nourished. Patient is nontoxic and well- hydrated and is in no acute distress. Patient was sleeping when I entered the room. ENT: Neck is soft and supple. No significant lymphadenopathy is noted. Oropharynx is clear. Moist mucous membranes. Neck has full range of motion without eliciting any pain. EYES: The sclera were anicteric and conjunctiva were pink and moist. Extraocular movements were intact and pupils were equal round and reactive to light. Eyelids were unremarkable. PULMONARY: Unlabored respirations. Good breath sounds bilaterally. No audible rales rhonchi or wheezing was noted. CARDIOVASCULAR: There is a regular rate and rhythm without any murmurs gallops or rubs. ABDOMEN: Soft and nontender with normal bowel sounds. SKIN: Skin is clear with no lesions or rashes and otherwise unremarkable. NEUROLOGIC: Patient is alert and oriented x3. Cranial nerves II through XII are grossly intact. Motor and sensory are also intact. Normal speech, volume and content. Symmetrical smile. Head patient get up and ambulate around the room he was able to ambulate without any ataxia. Patient was able to bend down and stand up without being at all off balance. MUSCULOSKELETAL: Normal extremities with adequate strength and full range of motion. LYMPHATICS: No significant lymphadenopathy is noted PSYCHIATRIC: Normal psychiatric evaluation. Limitations: no limitations Course Vital Signs 05/23/21 05/23/21 05/23/21 16:20 19:20 21:24 Temperature 97.5 F L Pulse Rate 82 77 71 Respiratory 20 18 18 Rate Blood Pressure 128/79 137/77 144/77 O2 Sat by Pulse 97 95 95 Oximetry Medical Decision Making - Medical Decision Making EKG shows normal sinus rhythm at 80 bpm DC interval 280 QRS 90 QT interval 424 QTC is 489. Patient's EKG shows no ST segment elevation or depression. Patient had a cardiac catheterization 2 months ago and showed no disease. Patient's lab work was all negative patient will be discharged home with chronic chest pain - Lab Data Result diagrams: 05/23/21 19:34 05/23/21 19:34 Lab Results 05/23/21 05/23/21 05/23/21 Range/Units 19:34 19:34 19:34 WBC 5.9 (3.8-10.6) k/uL RBC 5.15 (4.30-5.90) m/uL Hgb 15.5 (13.0-17.5) gm/dL Hct 49.3 (39.0-53.0) % MCV 95.6 (80.0-100.0) fL MCH 30.1 (25.0-35.0) pg MCHC 31.5 (31.0-37.0) g/dL RDW 14.5 (11.5-15.5) % Plt Count 206 (150-450) k/uL MPV 8.5 Neutrophils % 66 % Lymphocytes % 21 % Monocytes % 8 % Eosinophils % 3 % Basophils % 1 % Neutrophils # 3.9 (1.3-7.7) k/uL Lymphocytes # 1.2 (1.0-4.8) k/uL Monocytes # 0.5 (0-1.0) k/uL Eosinophils # 0.2 (0-0.7) k/uL Basophils # 0.1 (0-0.2) k/uL Hypochromasia Slight PT 11.0 (9.0-12.0) sec INR 1.0 (<1.2) APTT 19.0 L (22.0-30.0) sec Sodium (137-145) mmol/L Potassium (3.5-5.1) mmol/L Chloride (98-107) mmol/L Carbon Dioxide (22-30) mmol/L Anion Gap mmol/L BUN (9-20) mg/dL Creatinine (0.66-1.25) mg/dL Est GFR (CKD-EPI)AfAm (>60 ml/min/1.73 sqM) Est GFR (CKD-EPI)NonAf (>60 ml/min/1.73 sqM) Glucose (74-99) mg/dL Calcium (8.4-10.2) mg/dL Magnesium (1.6-2.3) mg/dL Total Bilirubin (0.2-1.3) mg/dL AST (17-59) U/L ALT (4-49) U/L Alkaline Phosphatase (38-126) U/L Troponin I (0.000-0.034) ng/mL Total Protein (6.3-8.2) g/dL Albumin (3.5-5.0) g/dL Urine Color Colorless Urine Appearance Clear (Clear) Urine pH 5.0 (5.0-8.0) Ur Specific [place] 1.003 (1.001-1.035) Urine Protein Negative (Negative) Urine Glucose (UA) Negative (Negative) Urine Ketones Negative (Negative) Urine Blood Negative (Negative) Urine Nitrite Negative (Negative) Urine Bilirubin Negative (Negative) Urine Urobilinogen <2.0 (<2.0) mg/dL Ur Leukocyte Esterase Negative (Negative) Urine Opiates Screen Detected H (NotDetected) Ur Oxycodone Screen Not Detected (NotDetected) Urine Methadone Screen Not Detected (NotDetected) Ur Propoxyphene Screen Not Detected (NotDetected) Ur Barbiturates Screen Not Detected (NotDetected) U Tricyclic Antidepress Not Detected (NotDetected) Ur Phencyclidine Scrn Not Detected (NotDetected) Ur Amphetamines Screen Not Detected (NotDetected) U Methamphetamines Scrn Not Detected (NotDetected) U Benzodiazepines Scrn Not Detected (NotDetected) Urine Cocaine Screen Not Detected (NotDetected) U Marijuana (THC) Screen Detected H (NotDetected) 05/23/21 05/23/21 Range/Units 19:34 19:34 WBC (3.8-10.6) k/uL RBC (4.30-5.90) m/uL Hgb (13.0-17.5) gm/dL Hct (39.0-53.0) % MCV (80.0-100.0) fL MCH (25.0-35.0) pg MCHC (31.0-37.0) g/dL RDW (11.5-15.5) % Plt Count (150-450) k/uL MPV Neutrophils % % Lymphocytes % % Monocytes % % Eosinophils % % Basophils % % Neutrophils # (1.3-7.7) k/uL Lymphocytes # (1.0-4.8) k/uL Monocytes # (0-1.0) k/uL Eosinophils # (0-0.7) k/uL Basophils # (0-0.2) k/uL Hypochromasia PT (9.0-12.0) sec INR (<1.2) APTT (22.0-30.0) sec Sodium 140 (137-145) mmol/L Potassium 4.2 (3.5-5.1) mmol/L Chloride 106 (98-107) mmol/L Carbon Dioxide 23 (22-30) mmol/L Anion Gap 11 mmol/L BUN 19 (9-20) mg/dL Creatinine 0.92 (0.66-1.25) mg/dL Est GFR (CKD-EPI)AfAm >90 (>60 ml/min/1.73 sqM) Est GFR (CKD-EPI)NonAf >90 (>60 ml/min/1.73 sqM) Glucose 56 L (74-99) mg/dL Calcium 9.0 (8.4-10.2) mg/dL Magnesium 1.8 (1.6-2.3) mg/dL Total Bilirubin 0.9 (0.2-1.3) mg/dL AST 67 H (17-59) U/L ALT 44 (4-49) U/L Alkaline Phosphatase 113 (38-126) U/L Troponin I <0.012 (0.000-0.034) ng/mL Total Protein 7.6 (6.3-8.2) g/dL Albumin 4.0 (3.5-5.0) g/dL Urine Color Urine Appearance (Clear) Urine pH (5.0-8.0) Ur Specific [place] (1.001-1.035) Urine Protein (Negative) Urine Glucose (UA) (Negative) Urine Ketones (Negative) Urine Blood (Negative) Urine Nitrite (Negative) Urine Bilirubin (Negative) Urine Urobilinogen (<2.0) mg/dL Ur Leukocyte Esterase (Negative) Urine Opiates Screen (NotDetected) Ur Oxycodone Screen (NotDetected) Urine Methadone Screen (NotDetected) Ur Propoxyphene Screen (NotDetected) Ur Barbiturates Screen (NotDetected) U Tricyclic Antidepress (NotDetected) Ur Phencyclidine Scrn (NotDetected) Ur Amphetamines Screen (NotDetected) U Methamphetamines Scrn (NotDetected) U Benzodiazepines Scrn (NotDetected) Urine Cocaine Screen (NotDetected) U Marijuana (THC) Screen (NotDetected) Disposition Clinical Impression: Chronic chest pain Disposition: HOME SELF-CARE Condition: Good Instructions (If sedation given, give patient instructions): Chest Pain (ED) Is patient prescribed a controlled substance at d/c from ED?: No Referrals: Clif Glasgow MD [Primary Care Provider] - 1-2 days Time of Disposition: 21:07
[2021-05-23 19:27] VITALS: RESP 18
[2021-05-23 19:50] LABS: Basophils # (A) 0.1 k/uL (0-0.2); Basophils % (A) 1 %; Eosinophils # (A) 0.2 k/uL (0-0.7); Eosinophils % (A) 3 %; HCT 49.3 % (39.0-53.0); HGB 15.5 gm/dL (13.0-17.5); Hypochromasia Slight; Lymphocytes # (A) 1.2 k/uL (1.0-4.8); Lymphocytes % (A) 21 %; MCH 30.1 pg (25.0-35.0); MCHC 31.5 g/dL (31.0-37.0); MCV 95.6 fL (80.0-100.0); Mean Platelet Volume 8.5; Monocytes # (A) 0.5 k/uL (0-1.0); Monocytes % (A) 8 %; Neutrophils # (A) 3.9 k/uL (1.3-7.7); Neutrophils % (A) 66 %; Platelet Count 206 k/uL (150-450); RBC 5.15 m/uL (4.30-5.90); RDW 14.5 % (11.5-15.5); WBC 5.9 k/uL (3.8-10.6)
[2021-05-23 20:00] LABS: ALT 44 U/L (4-49); AST 67 U/L (17-59); African American GFR (CKD) >90 (>60 ml/min/1.73 sqM); Alkaline Phosphatase 113 U/L (38-126); Anion Gap 11 mmol/L; Blood Urea Nitrogen 19 mg/dL (9-20); Carbon Dioxide 23 mmol/L (22-30); Chloride 106 mmol/L (98-107); Glucose 56 mg/dL (74-99); Magnesium 1.8 mg/dL (1.6-2.3); Non-African American GFR(CKD) >90 (>60 ml/min/1.73 sqM); Potassium 4.2 mmol/L (3.5-5.1); Sodium 140 mmol/L (137-145); Total Bilirubin 0.9 mg/dL (0.2-1.3); Total Protein 7.6 g/dL (6.3-8.2)
[2021-05-23 20:54] LABS: Appearance,Urine Clear (Clear); Bilirubin,Urine Negative (Negative); Blood,Urine Negative (Negative); Color,Urine Colorless; Glucose,Urine (UA) Negative (Negative); Ketones,Urine Negative (Negative); Leukocyte Esterase,Urine Negative (Negative); Nitrite,Urine Negative (Negative); Protein,Urine Negative (Negative); Specific Gravity,Urine 1.003 (1.001-1.035); Urobilinogen,Urine <2.0 mg/dL (<2.0)
[2021-05-23 21:04] LABS: Amphetamine Screen,Urine Not Detected (NotDetected); Barbiturate Screen,Urine Not Detected (NotDetected); Benzodiazepines Screen,Urine Not Detected (NotDetected); Cocaine Screen,Urine Not Detected (NotDetected); Methadone Screen, Urine Not Detected (NotDetected); Opiate Screen,Urine Detected (NotDetected); Oxycodone Screen, Urine Not Detected (NotDetected); Phencyclidine Screen,Urine Not Detected (NotDetected); Tricyclic Antidepressant,Urine Not Detected (NotDetected); Urn Cannabinoid Scrn Detected (NotDetected)
[2021-05-23 21:26] VITALS: BP 144/77; PULSE 71
== END 2021-05-23 21:31 | disposition home or self-care (01) ==
LOC: EC 16:12
DX: G89.29 Other chronic pain (principal); R07.9 Chest pain, unspecified; F17.200 Nicotine dependence, unspecified, uncomplicated; J44.9 Chronic obstructive pulmonary disease, unspecified; I10 Essential (primary) hypertension; E78.5 Hyperlipidemia, unspecified; I48.91 Unspecified atrial fibrillation; Z88.6 Allergy status to analgesic agent; Z88.8 Allergy status to other drugs, medicaments and biological substances; Z79.899 Other long term (current) drug therapy; Z79.82 Long term (current) use of aspirin
CPT/HCPCS: 36415; 80053; 80306; 81003; 83735; 84484; 85025; 85610; 85730; 93005; 99284

== ENCOUNTER 2021-05-24 13:43 | Emergency (ER) | payer OTHER ==
[2021-05-24 13:56] VITALS: TEMP 98
[2021-05-24 15:20] LABS: Basophils % (A) 1 %; Eosinophils # (A) 0.1 k/uL (0-0.7); Eosinophils % (A) 2 %; HCT 46.7 % (39.0-53.0); Lymphocytes # (A) 0.3 k/uL (1.0-4.8); Lymphocytes % (A) 6 %; MCH 30.5 pg (25.0-35.0); MCHC 32.2 g/dL (31.0-37.0); MCV 94.9 fL (80.0-100.0); Mean Platelet Volume 8.9; Monocytes # (A) 0.3 k/uL (0-1.0); Monocytes % (A) 8 %; Neutrophils # (A) 3.6 k/uL (1.3-7.7); Neutrophils % (A) 83 %; Platelet Count 152 k/uL (150-450); RBC 4.92 m/uL (4.30-5.90); RDW 14.5 % (11.5-15.5); WBC 4.4 k/uL (3.8-10.6)
[2021-05-24 15:30] LABS: ALT 35 U/L (4-49); AST 44 U/L (17-59); African American GFR (CKD) >90 (>60 ml/min/1.73 sqM); Albumin 3.6 g/dL (3.5-5.0); Alkaline Phosphatase 86 U/L (38-126); Anion Gap 10 mmol/L; Blood Urea Nitrogen 12 mg/dL (9-20); Calcium 8.7 mg/dL (8.4-10.2); Carbon Dioxide 20 mmol/L (22-30); Chloride 107 mmol/L (98-107); Glucose 103 mg/dL (74-99); INR 1.1 (<1.2); Magnesium 1.4 mg/dL (1.6-2.3); Non-African American GFR(CKD) >90 (>60 ml/min/1.73 sqM); Partial Thromboplastin Time 23.6 sec (22.0-30.0); Potassium 3.9 mmol/L (3.5-5.1); Prothrombin Time 11.6 sec (9.0-12.0); Sodium 137 mmol/L (137-145); Total Bilirubin 0.8 mg/dL (0.2-1.3); Total Protein 6.7 g/dL (6.3-8.2)
--- NOTE | 2021-05-24 15:44 | XR ---
EXAMINATION TYPE: XR chest 2V DATE OF EXAM: 05/24/2021 COMPARISON: Chest x-ray 05/06/2021 HISTORY: Chest pain TECHNIQUE: Frontal and lateral views of the chest are obtained. FINDINGS: There is no focal air space opacity, pleural effusion, or pneumothorax seen. The cardiac silhouette size is stable, heart appears prominently. Aorta is dense. The osseous structures are sta ble, postop change noted to the distal left clavicle. Prominent lung volume may be indicative of unde rlying COPD. IMPRESSION: The heart is enlarged, stable.
--- NOTE | 2021-05-24 16:20 | ED ---
Chest Pain HPI - General Chief Complaint: Chest Pain Stated Complaint: revisit-chest pain Time Seen by Provider: 05/24/21 16:15 Source: patient, RN notes reviewed Mode of arrival: ambulatory Limitations: no limitations - History of Present Illness Initial Comments: 50-year-old male presents emergency Department with chief complaint of chest pain, leg swelling. This is an ongoing chronic issues had several ER visits weekly for the same complaint. Patient states she's had no other acute changes. Patient states it hurts in his ribs, noticed some leg swelling. Patient states she has noticed a. Patient has no nausea vomiting diarrhea constipation no fevers chills no shortness breath. Patient had recent heart cath, has had ultrasounds. - Related Data Home Medications Medication Instructions Recorded Confirmed Furosemide [Lasix] 40 mg PO BID 04/20/21 05/23/21 Aspirin EC [Ecotrin Low Dose] 81 mg PO DAILY 05/23/21 05/23/21 Atorvastatin Calcium [Lipitor] 20 mg PO HS 05/23/21 05/23/21 Furosemide [Lasix] 20 mg PO BID 05/23/21 05/23/21 Lisinopril [Prinivil] 10 mg PO BID 05/23/21 05/23/21 Metoprolol Succinate [Toprol XL] 50 mg PO DAILY 05/23/21 05/23/21 Sulfamethox-Tmp 800-160Mg [Bactrim 1 tab PO BID 05/23/21 05/23/21 DS 800-160 mg] traMADol HCL 50 mg PO Q6H PRN 05/23/21 05/23/21 Previous Rx's Medication Instructions Recorded Nitroglycerin Sl Tabs [Nitrostat] 0.4 mg SUBLINGUAL Q5M PRN #30 tab 04/21/21 Allergies Allergy/AdvReac Type Severity Reaction Status Date / Time ibuprofen [From Motrin] AdvReac Nausea & Verified 05/24/21 13:56 Vomiting simvastatin [From Zocor] AdvReac Dizziness Verified 05/24/21 13:56 Review of Systems ROS Statement: Those systems with pertinent positive or pertinent negative responses have been documented in the HPI. ROS Other: All systems not noted in ROS Statement are negative. Past Medical History Past Medical History: Atrial Fibrillation, COPD, Hyperlipidemia, Hypertension, Pneumonia Additional Past Medical History / Comment(s): Other HX; Costochondritis, chronic pain, chronic low back pain with bilateral sciatica, neuropathy bila teral hands/feet, migraines, kidney stones, past partial small bowel obstruction. HTN the last 10 yrs Stopped taking meds 5 yrs ago. COPD due to tobacco use. MArijuna use 3 -4 times a week - Smoke it History of Any Multi-Drug Resistant Organisms: None Reported, MRSA Date of last positivie culture/infection: 04/10/18 MDRO Source:: TOE Past Surgical History: Heart Catheterization, Orthopedic Surgery Additional Past Surgical History / Comment(s): 03/14/18 Cardiac cath-normal coronaries, L shoulder rotator cuff repair x2, cervical injection. Past Anesthesia/Blood Transfusion Reactions: No Reported Reaction Past Psychological History: Anxiety, Bipolar, Depression, Schizophrenia Smoking Status: Current every day smoker Past Alcohol Use History: None Reported Past Drug Use History: Marijuana, Prescription Drug Abuse - Past Family History Father Family Medical History: Myocardial Infarction ([place]) Additional Family Medical History / Comment(s): mi at age 35, still living Mother Family Medical History: Myocardial Infarction ([place]) Additional Family Medical History / Comment(s): Mother has had at least one [place]- pt unsure at what age. He has not had much contact with his mother since he was 17 yrs old. General Exam Limitations: no limitations General appearance: alert, in no apparent distress Head exam: Present: atraumatic, normocephalic, normal inspection Eye exam: Present: normal appearance, PERRL, EOMI. Absent: scleral icterus, conjunctival injection, periorbital swelling ENT exam: Present: normal exam, normal oropharynx, mucous membranes moist Neck exam: Present: normal inspection, full ROM. Absent: tenderness, meningismus, lymphadenopathy Respiratory exam: Present: normal lung sounds bilaterally. Absent: respiratory distress, wheezes, rales, rhonchi, stridor Cardiovascular Exam: Present: regular rate (Heart rate was 88), normal rhythm, normal heart sounds. Absent: systolic murmur, diastolic murmur, rubs, gallop, clicks GI/Abdominal exam: Present: soft, normal bowel sounds. Absent: distended, tenderness, guarding, rebound, rigid Extremities exam: Absent: pedal edema Neurological exam: Present: alert, oriented X3 Course Vital Signs 05/24/21 05/24/21 05/24/21 13:53 14:00 17:17 Temperature 98.0 F 98.0 F Pulse Rate 110 H 98 Pulse Rate [ 92 Heavy [employer] ] Respiratory 20 18 Rate Blood Pressure 148/91 147/80 O2 Sat by Pulse 98 98 Oximetry Chest Pain MDM - MDM I discuss case with Dr. Glasgow felt the patient may be discharged she was not seen in office as stated by patient. Patient's symptoms have been chronic in nature no acute changes. Labs unremarkable. Disposition Clinical Impression: Chronic chest pain Disposition: HOME SELF-CARE Condition: Stable Instructions (If sedation given, give patient instructions): Chest Pain (ED) Additional Instructions: Please return to the Emergency Department if symptoms worsen or any other concerns. Is patient prescribed a controlled substance at d/c from ED?: No Referrals: Clif Glasgow MD [Primary Care Provider] - 1-2 days Time of Disposition: 16:20
[2021-05-24 17:19] VITALS: BP 147/80; PULSE 98; RESP 18
== END 2021-05-24 17:17 | disposition home or self-care (01) ==
LOC: EC 13:43
DX: G89.29 Other chronic pain (principal); R07.9 Chest pain, unspecified; M79.89 Other specified soft tissue disorders; F17.200 Nicotine dependence, unspecified, uncomplicated; J44.9 Chronic obstructive pulmonary disease, unspecified; E78.5 Hyperlipidemia, unspecified; I10 Essential (primary) hypertension; I48.91 Unspecified atrial fibrillation; Z88.6 Allergy status to analgesic agent; Z88.8 Allergy status to other drugs, medicaments and biological substances; Z79.899 Other long term (current) drug therapy; Z79.82 Long term (current) use of aspirin
CPT/HCPCS: 36415; 71046; 80053; 83735; 84484; 85025; 85610; 85730; 93005; 99285

== ENCOUNTER 2021-06-28 00:08 | Inpatient (IN) | payer OTHER ==
[2021-06-28 00:49] LABS: Anisocytosis Slight; Basophils # (A) 0.1 k/uL (0-0.2); Basophils % (A) 1 %; Eosinophils # (A) 0.3 k/uL (0-0.7); Eosinophils % (A) 5 %; HCT 43.7 % (39.0-53.0); HGB 14.2 gm/dL (13.0-17.5); Lymphocytes # (A) 1.3 k/uL (1.0-4.8); Lymphocytes % (A) 19 %; MCH 31.1 pg (25.0-35.0); MCHC 32.5 g/dL (31.0-37.0); MCV 95.7 fL (80.0-100.0); Mean Platelet Volume 8.9; Monocytes # (A) 0.5 k/uL (0-1.0); Monocytes % (A) 7 %; Neutrophils # (A) 4.7 k/uL (1.3-7.7); Neutrophils % (A) 67 %; Platelet Count 180 k/uL (150-450); RBC 4.56 m/uL (4.30-5.90); RDW 16.3 % (11.5-15.5); WBC 7.1 k/uL (3.8-10.6)
--- NOTE | 2021-06-28 00:57 | XR ---
EXAMINATION TYPE: XR chest 2V DATE OF EXAM: 06/28/2021 COMPARISON: 05/24/2021 HISTORY: Chest pain TECHNIQUE: FINDINGS: Heart is normal. Lungs are clear of infiltrate. There is no heart failure. There are no hil ar masses. Bony thorax is intact. IMPRESSION: No active cardiopulmonary disease. No change.
[2021-06-28 00:59] LABS: INR 1.2 (<1.2); Partial Thromboplastin Time 23.5 sec (22.0-30.0); Prothrombin Time 12.8 sec (9.0-12.0)
[2021-06-28] MEDS ORDERED: ASPIRIN 81 MG PO STA (01:02)
[2021-06-28 01:03] LABS: ALT 25 U/L (4-49); AST 41 U/L (17-59); African American GFR (CKD) >90 (>60 ml/min/1.73 sqM); Albumin 3.6 g/dL (3.5-5.0); Alkaline Phosphatase 102 U/L (38-126); Anion Gap 8 mmol/L; Blood Urea Nitrogen 19 mg/dL (9-20); Calcium 8.6 mg/dL (8.4-10.2); Carbon Dioxide 23 mmol/L (22-30); Chloride 106 mmol/L (98-107); Glucose 89 mg/dL (74-99); Magnesium 1.6 mg/dL (1.6-2.3); Non-African American GFR(CKD) 83 (>60 ml/min/1.73 sqM); Sodium 137 mmol/L (137-145); Total Protein 6.8 g/dL (6.3-8.2)
--- NOTE | 2021-06-28 01:35 | XR ---
EXAMINATION TYPE: XR foot limited LT DATE OF EXAM: 06/28/2021 COMPARISON: NONE HISTORY: Foot pain TECHNIQUE: 2 view FINDINGS: There is soft tissue swelling of the forefoot. Metatarsals are intact. There is Achilles ca lcaneal spurring. There are some erosions of the tuft of the distal phalanx of the third toe. IMPRESSION: No fracture seen. Destructive changes of the tuft of the distal phalanx of the third toe could relate to osteomyelitis.
[2021-06-28] MEDS ORDERED: ONDANSETRON 4 MG/2 ML VIAL IVP STA (01:50)
[2021-06-28] MEDS ORDERED: MORPHINE SULFATE 4 MG/ML SYRINGE IVP STA (01:50)
--- NOTE | 2021-06-28 03:31 | ED ---
General Adult HPI - General Chief complaint: Chest Pain Stated complaint: Leg Pain Time Seen by Provider: 06/28/21 00:39 Source: patient, RN notes reviewed Mode of arrival: ambulatory - History of Present Illness Initial comments: 51-year-old male presents to the emergency department with multiple complaints including chest pain, lower extremity edema, and left foot pain. Patient states he was seen by his PCP recently who tested him for diabetes as he has a poorly healing wound on the left foot. Patient states he was also recently hospitalized due to his lower extremity edema and chest pain. Patient states he feels that his Lasix dose is too strong and is taking it as he feels necessary. Reports his chest pain is typical discomfort for him; denies any exacerbating or alleviating factors. Denies fever, chills, difficulty breathing, abdominal pain, nausea, vomiting, diarrhea, dysuria, frequent urination, or excessive thirst. - Related Data Home Medications Medication Instructions Recorded Confirmed Furosemide [Lasix] 40 mg PO BID 04/20/21 05/23/21 Aspirin EC [Ecotrin Low Dose] 81 mg PO DAILY 05/23/21 05/23/21 Atorvastatin Calcium [Lipitor] 20 mg PO HS 05/23/21 05/23/21 Furosemide [Lasix] 20 mg PO BID 05/23/21 05/23/21 Lisinopril [Prinivil] 10 mg PO BID 05/23/21 05/23/21 Metoprolol Succinate [Toprol XL] 50 mg PO DAILY 05/23/21 05/23/21 Sulfamethox-Tmp 800-160Mg [Bactrim 1 tab PO BID 05/23/21 05/23/21 DS 800-160 mg] traMADol HCL 50 mg PO Q6H PRN 05/23/21 05/23/21 Previous Rx's Medication Instructions Recorded Nitroglycerin Sl Tabs [Nitrostat] 0.4 mg SUBLINGUAL Q5M PRN #30 tab 04/21/21 Allergies Allergy/AdvReac Type Severity Reaction Status Date / Time ibuprofen [From Motrin] AdvReac Nausea & Verified 06/28/21 00:14 Vomiting simvastatin [From Zocor] AdvReac Dizziness Verified 06/28/21 00:14 Review of Systems ROS Statement: Those systems with pertinent positive or pertinent negative responses have been documented in the HPI. ROS Other: All systems not noted in ROS Statement are negative. Past Medical History Past Medical History: Atrial Fibrillation, COPD, Hyperlipidemia, Hypertension, Pneumonia Additional Past Medical History / Comment(s): Other HX; Costochondritis, chron ic pain, chronic low back pain with bilateral sciatica, neuropathy bilateral hands/feet, migraines, kidney stones, past partial small bowel obstruction. HTN the last 10 yrs Stopped taking meds 5 yrs ago. COPD due to tobacco use. MArijuna use 3 -4 times a week - Smoke it History of Any Multi-Drug Resistant Organisms: None Reported, MRSA Date of last positivie culture/infection: 04/10/18 MDRO Source:: TOE Past Surgical History: Heart Catheterization, Orthopedic Surgery Additional Past Surgical History / Comment(s): 03/14/18 Cardiac cath-normal coronaries, L shoulder rotator cuff repair x2, cervical injection. Past Anesthesia/Blood Transfusion Reactions: No Reported Reaction Past Psychological History: Anxiety, Bipolar, Depression, Schizophrenia Smoking Status: Current every day smoker Past Alcohol Use History: None Reported Past Drug Use History: Marijuana, Prescription Drug Abuse - Past Family History Father Family Medical History: Myocardial Infarction ([place]) Additional Family Medical History / Comment(s): mi at age 35, still living Mother Family Medical History: Myocardial Infarction ([place]) Additional Family Medical History / Comment(s): Mother has had at least one [place]- pt unsure at what age. He has not had much contact with his mother since he was 17 yrs old. General Exam Limitations: no limitations (Well-developed, well-nourished male in mild discomfort. Initial temperature 98.7, pulse 117, respirations 22, blood pressure 163/99, pulse ox 93% on room air.) General appearance: alert, in no apparent distress ENT exam: Present: normal oropharynx Neck exam: Present: normal inspection, full ROM. Absent: tenderness, lymphadenopathy Respiratory exam: Present: normal lung sounds bilaterally, chest wall tenderness (Left lateral wall tenderness upon palpation). Absent: respiratory distress, wheezes, rales, rhonchi, stridor Cardiovascular Exam: Present: tachycardia, systolic murmur GI/Abdominal exam: Present: soft, normal bowel sounds. Absent: distended, tenderness, guarding, rebound, rigid Extremities exam: Present: pedal edema, other (Bilateral lower extremities appea r symmetrical with the exception of the third toe on the left foot) Left Lower Leg exam: Present: full ROM, swelling. Absent: tenderness, erythema, Homans' sign Ankle exam: Present: full ROM, swelling. Absent: tenderness Foot/Toe exam: Present: tenderness (Tenderness upon palpation of the third toe; wound present at the distal phalanx), swelling Neurovascular tendon exam: Present: no vascular compromise. Absent: pulse deficit, abnormal cap refill Neurological exam: Present: alert, oriented X3 Psychiatric exam: Present: anxious Skin exam: Present: warm, dry, other (Small open ulcerated area at the distal phalanx of the third toe on the left foot.) Course Vital Signs 06/28/21 06/28/21 06/28/21 00:10 00:52 01:28 Temperature 98.7 F Pulse Rate 117 H 98 110 H Respiratory 22 18 18 Rate Blood Pressure 163/99 151/121 159/121 O2 Sat by Pulse 93 L 98 98 Oximetry Medical Decision Making - Medical Decision Making 51-year-old male with a past medical history of CHF, chest pain, atrial fibri llation, COPD, and lower extremity edema presents to the emergency department for evaluation of chest pain, lower extremity edema, and wound to the third digit on the left foot. Upon exam, patient appears somewhat anxious and mildly uncomfortable. He is afebrile; heart rate and blood pressure are elevated. EKG shows sinus tachycardia. Chest x-ray is unchanged from baseline. Chest pain is reproducible with movement and palpation. Patient does have pitting dependent edema of the lower extremities. There is a small open area surrounded by an ulceration at the distal phalanx of the third toe. X-ray is concerning for possible osteomyelitis. Blood cultures were drawn, patient will be started on vancomycin, and admitted to the hospital for further evaluation and treatment. I did speak with Dr. Glasgow who agrees to accept this admission. Infectious disease was contacted. Pain medication was given with some improvement. Laboratory studies were reviewed and are unremarkable. This patient's care was discussed with my attending . - Lab Data Result diagrams: 06/28/21 00:30 06/28/21 00:30 Lab Results 06/28/21 06/28/21 06/28/21 Range/Units 00:30 00:30 00:30 WBC 7.1 (3.8-10.6) k/uL RBC 4.56 (4.30-5.90) m/uL Hgb 14.2 (13.0-17.5) gm/dL Hct 43.7 (39.0-53.0) % MCV 95.7 (80.0-100.0) fL MCH 31.1 (25.0-35.0) pg MCHC 32.5 (31.0-37.0) g/dL RDW 16.3 H (11.5-15.5) % Plt Count 180 (150-450) k/uL MPV 8.9 Neutrophils % 67 % Lymphocytes % 19 % Monocytes % 7 % Eosinophils % 5 % Basophils % 1 % Neutrophils # 4.7 (1.3-7.7) k/uL Lymphocytes # 1.3 (1.0-4.8) k/uL Monocytes # 0.5 (0-1.0) k/uL Eosinophils # 0.3 (0-0.7) k/uL Basophils # 0.1 (0-0.2) k/uL Anisocytosis Slight PT 12.8 H (9.0-12.0) sec INR 1.2 H (<1.2) APTT 23.5 (22.0-30.0) sec Sodium 137 (137-145) mmol/L Potassium 4.0 (3.5-5.1) mmol/L Chloride 106 (98-107) mmol/L Carbon Dioxide 23 (22-30) mmol/L Anion Gap 8 mmol/L BUN 19 (9-20) mg/dL Creatinine 1.06 (0.66-1.25) mg/dL Est GFR (CKD-EPI)AfAm >90 (>60 ml/min/1.73 sqM) Est GFR (CKD-EPI)NonAf 83 (>60 ml/min/1.73 sqM) Glucose 89 (74-99) mg/dL Calcium 8.6 (8.4-10.2) mg/dL Magnesium 1.6 (1.6-2.3) mg/dL Total Bilirubin 1.0 (0.2-1.3) mg/dL AST 41 (17-59) U/L ALT 25 (4-49) U/L Alkaline Phosphatase 102 (38-126) U/L Troponin I (0.000-0.034) ng/mL NT-Pro-B Natriuret Pep pg/mL Total Protein 6.8 (6.3-8.2) g/dL Albumin 3.6 (3.5-5.0) g/dL 06/28/21 06/28/21 Range/Units 00:30 00:30 WBC (3.8-10.6) k/uL RBC (4.30-5.90) m/uL Hgb (13.0-17.5) gm/dL Hct (39.0-53.0) % MCV (80.0-100.0) fL MCH (25.0-35.0) pg MCHC (31.0-37.0) g/dL RDW (11.5-15.5) % Plt Count (150-450) k/uL MPV Neutrophils % % Lymphocytes % % Monocytes % % Eosinophils % % Basophils % % Neutrophils # (1.3-7.7) k/uL Lymphocytes # (1.0-4.8) k/uL Monocytes # (0-1.0) k/uL Eosinophils # (0-0.7) k/uL Basophils # (0-0.2) k/uL Anisocytosis PT (9.0-12.0) sec INR (<1.2) APTT (22.0-30.0) sec Sodium (137-145) mmol/L Potassium (3.5-5.1) mmol/L Chloride (98-107) mmol/L Carbon Dioxide (22-30) mmol/L Anion Gap mmol/L BUN (9-20) mg/dL Creatinine (0.66-1.25) mg/dL Est GFR (CKD-EPI)AfAm (>60 ml/min/1.73 sqM) Est GFR (CKD-EPI)NonAf (>60 ml/min/1.73 sqM) Glucose (74-99) mg/dL Calcium (8.4-10.2) mg/dL Magnesium (1.6-2.3) mg/dL Total Bilirubin (0.2-1.3) mg/dL AST (17-59) U/L ALT (4-49) U/L Alkaline Phosphatase (38-126) U/L Troponin I <0.012 (0.000-0.034) ng/mL NT-Pro-B Natriuret Pep 2270 pg/mL Total Protein (6.3-8.2) g/dL Albumin (3.5-5.0) g/dL - EKG Data EKG shows normal: sinus rhythm Rate: tachycardia EKG Comments: EKG was obtained that 00 shows sinus tachycardia. Ventricular rate 104, MD interval 168, QRS duration 96, QT/QTc 373/133. Interpretation abnormal ECG. There is moderate T wave abnormality - Radiology Data Radiology results: report reviewed, image reviewed X-ray of the left foot was obtained. Report was reviewed in its entirety. Impression per Dr. Grant is no fracture seen. Destructive changes of the tuft of the distal phalanx of the third toe could relate to osteomyelitis. Two-view chest x-ray was obtained. Report was reviewed in its entirety. Impression per Dr. Grant is no active cardiopulmonary disease. No change. Disposition Clinical Impression: Osteomyelitis of toe of left foot Disposition: ADMITTED IP TO THIS [facility] Condition: Serious Referrals: Clif Glasgow MD [Primary Care Provider] - 1-2 days Decision Date: 06/28/21 Decision Time: 04:05
[2021-06-28] MEDS ORDERED: VANCOMYCIN IV PER PHARMACY 1 EACH MISC MISCELLANE PRN (03:59)
[2021-06-28] MEDS ORDERED: ONDANSETRON 4 MG/2 ML VIAL IVP PRN (04:00)
[2021-06-28] MEDS ORDERED: NALOXONE 0.4 MG/ML 1 ML VIAL IV PRN (04:00)
[2021-06-28] MEDS ORDERED: traMADol 50 MG TAB PO PRN (04:00)
[2021-06-28] MEDS ORDERED: VANCOMYCIN 1,750 MG in SODIUM CHLORIDE 0.9% 500 ML 500 ML IVPB ONE (04:15)
[2021-06-28] MEDS: MORPHINE SULFATE 4 MG/ML SYRINGE IV PRN ×5 (04:39→23:35)
[2021-06-28] MEDS: FAMOTIDINE 20 MG TAB PO SCH ×2 (09:01→21:49)
[2021-06-28] MEDS ORDERED: FUROSEMIDE 40 MG TAB PO SCH (12:59)
[2021-06-28] MEDS: METOPROLOL SUCCINATE (ER) 50 MG TAB.ER.24H PO SCH (15:24)
[2021-06-28] MEDS: lisinopriL 10 MG TAB PO SCH ×2 (15:24→21:49)
[2021-06-28] MEDS: FUROSEMIDE 20 MG TAB PO SCH (15:25)
[2021-06-28] MEDS: VANCOMYCIN 1,750 MG in SODIUM CHLORIDE 0.9% 500 ML 500 ML IVPB SCH (18:18)
[2021-06-28 23:14] LABS: Appearance,Urine Clear (Clear); Bilirubin,Urine Negative (Negative); Blood,Urine Negative (Negative); Color,Urine Light Yellow; Glucose,Urine (UA) Negative (Negative); Ketones,Urine Negative (Negative); Leukocyte Esterase,Urine Negative (Negative); Nitrite,Urine Negative (Negative); Protein,Urine Negative (Negative); Specific Gravity,Urine 1.006 (1.001-1.035); Urobilinogen,Urine <2.0 mg/dL (<2.0)
[2021-06-28 23:20] LABS: Amphetamine Screen,Urine Not Detected (NotDetected); Barbiturate Screen,Urine Not Detected (NotDetected); Benzodiazepines Screen,Urine Not Detected (NotDetected); Cocaine Screen,Urine Not Detected (NotDetected); Methadone Screen, Urine Not Detected (NotDetected); Opiate Screen,Urine Detected (NotDetected); Oxycodone Screen, Urine Not Detected (NotDetected); Phencyclidine Screen,Urine Not Detected (NotDetected); Tricyclic Antidepressant,Urine Not Detected (NotDetected); Urn Cannabinoid Scrn Not Detected (NotDetected)
--- NOTE | 2021-06-28 23:29 | P.CONS ---
History of Present Illness - Reason for Consult Consult date: 06/28/21 left third toe osteoarthritis Requesting physician: Clif Glasgow - Chief Complaint Left third toe nonhealing wound times weeks - History of Present Illness Patient is a 51-year male presenting to [facility] ER for evaluation of nonhealing wound to his left second toe also complaining of lower extremity swelling patient denies having history of any trauma patient has been complaining of a possible callus formation to the tip of his toe this subs equently fell off leading to formation of his ulceration on the tip of his left third toe did have some bloodstained drainage patient complaining of pain to the left third toe to be more of a dull aching at times throbbing intensity 6-7 out of 10 and no radiation patient denies having any fever or any chills on presentation to the hospital the patient was afebrile patient did have a normal white count urine was negative urine testing was positive for opiates valladares PCR was negative patient did have a x-ray of the foot no fracture seen destructive changes of the tuft of the distal phalanx of the third toe could relate to osteomyelitis patient was started on vancomycin has been admitted to the hospital infectious disease was consulted for further management of antibiotic therapy Review of Systems CONSTITUTIONAL: Positive for weakness. Denies high-grade Fever EYES: No complaint. ENT:No complaint. RESPIRATORY: No complaint. CARDIOVASCULAR: No complaint. GENITOURINARY: No complaint. GASTROINTESTINAL: No complaint. MUSCULOSKELETAL:As per history of present illness INTEGUMENTARY: No complaint. PSYCHOLOGICAL: No complaint. ENDOCRINE: No complaint. NEUROLOGIC: No complaint. Past Medical History Past Medical History: Atrial Fibrillation, COPD, Hyperlipidemia, Hypertension, Pneumonia Additional Past Medical History / Comment(s): Other HX; Costochondritis, chronic pain, chronic low back pain with bilateral sciatica, neuropathy bilateral hands/feet, migraines, kidney stones, past partial small bowel obstruction. HTN the last 10 yrs Stopped taking meds 5 yrs ago. COPD due to t obacco use. MArijuna use 3 -4 times a week - Smoke it History of Any Multi-Drug Resistant Organisms: None Reported, MRSA Year Discovered:: 04/10/18 MDRO Source:: TOE Past Surgical History: Heart Catheterization, Orthopedic Surgery Additional Past Surgical History / Comment(s): 03/14/18 Cardiac cath-normal coronaries, L shoulder rotator cuff repair x2, cervical injection. Past Anesthesia/Blood Transfusion Reactions: No Reported Reaction Past Psychological History: Anxiety, Bipolar, Depression, Schizophrenia Smoking Status: Current every day smoker Past Alcohol Use History: None Reported Past Drug Use History: Marijuana, Prescription Drug Abuse - Past Family History Father Family Medical History: Myocardial Infarction ([place]) Additional Family Medical History / Comment(s): mi at age 35, still living Mother Family Medical History: Myocardial Infarction ([place]) Additional Family Medical History / Comment(s): Mother has had at least one [place]- pt unsure at what age. He has not had much contact with his mother since he was 17 yrs old. Medications and Allergies Home Medications Medication Instructions Recorded Confirmed Type Furosemide [Lasix] 40 mg PO BID 04/20/21 06/28/21 History Aspirin EC [Ecotrin Low Dose] 81 mg PO DAILY 05/23/21 06/28/21 History Furosemide [Lasix] 20 mg PO BID 05/23/21 06/28/21 History Lisinopril [Prinivil] 10 mg PO BID 05/23/21 06/28/21 History Metoprolol Succinate [Toprol XL] 50 mg PO DAILY 05/23/21 06/28/21 History traMADol HCL 50 mg PO Q6H PRN 05/23/21 06/28/21 History Nitroglycerin Sl Tabs [Nitrostat] 0.4 mg SL Q5M PRN 06/28/21 06/28/21 History Allergies Allergy/AdvReac Type Severity Reaction Status Date / Time ibuprofen [From Motrin] AdvReac Nausea & Verified 06/28/21 07:16 Vomiting simvastatin [From Zocor] AdvReac Dizziness Verified 06/28/21 07:16 Physical Exam Vitals: Vital Signs Temp Pulse Pulse Resp BP BP Pulse Ox 06/28/21 12:59 97 F L 99 20 166/122 99 06/28/21 04:00 112 H 18 152/115 98 06/28/21 01:28 110 H 18 159/121 98 06/28/21 00:52 98 18 151/121 98 06/28/21 00:10 98.7 F 117 H 22 163/99 93 L Intake and Output 06/27/21 06/28/21 06/28/21 22:59 06:59 14:59 Other: Weight 108.862 kg GENERAL DESCRIPTION: Middle-aged male lying in bed, no distress. No tachypnea or accessory muscle of respiration use. HEENT: Shows Pallor , no scleral icterus. Oral mucous membrane is dry. No pharyngeal erythema or thrush NECK: Trachea central, no thyromegaly. LUNGS: Unlabored breathing. Clear to auscultation anteriorly. No wheeze or crackle. HEART: S1, S2, regular rate and rhythm. No loud murmur ABDOMEN: Soft, no tenderness , guarding or rigidity, no organomegaly EXTREMITIES: Right third toe tip with a callus wound which has been cultured SKIN: No rash, no masses palpable. NEUROLOGICAL: The patient is awake, alert, oriented x3, mood and affect normal. Results CBC & Chem 7: 06/28/21 00:30 06/28/21 00:30 Labs: Abnormal Lab Results - Last 24 Hours (Table) 06/28/21 06/28/21 Range/Units 00:30 00:30 RDW 16.3 H (11.5-15.5) % PT 12.8 H (9.0-12.0) sec INR 1.2 H (<1.2) Assessment and Plan (1) Osteomyelitis of toe of left foot Current Visit: Yes Status: Acute Code(s): M86.9 - OSTEOMYELITIS, UNSPECIFIED SNOMED Code(s): 691218503 Plan: 1patient with nonhealing wound to the tip of his left third toe with concern for possible hammertoe deformity with a callus and ulceration with evidence of destructive changes on the plain x-ray concerning for osteomyelitis likely from gram-positive skin joyce. 2local wound culture to guide antibiotic therapy as well as blood culture. 3we will obtain a CRP and sed rate 4vancomycin pharmacy to dose while watching his kidney function closely We will follow on clinical condition and cultures to further adjust medication if needed Thank you for this consultation will follow this patient along with you Time with Patient: Greater than 30
[2021-06-29] MEDS: VANCOMYCIN 1,750 MG in SODIUM CHLORIDE 0.9% 500 ML 500 ML IVPB SCH ×2 (04:10→16:54)
[2021-06-29 06:42] LABS: African American GFR (CKD) 90 (>60 ml/min/1.73 sqM); Anion Gap 8 mmol/L; Blood Urea Nitrogen 19 mg/dL (9-20); Calcium 8.5 mg/dL (8.4-10.2); Carbon Dioxide 23 mmol/L (22-30); Chloride 105 mmol/L (98-107); Glucose 80 mg/dL (74-99); Non-African American GFR(CKD) 78 (>60 ml/min/1.73 sqM); Sodium 136 mmol/L (137-145)
[2021-06-29 06:43] LABS: Potassium 4.5 mmol/L (3.5-5.1)
[2021-06-29 07:21] LABS: C Reactive Protein 1.3 mg/dL (<1.0)
[2021-06-29] MEDS: FUROSEMIDE 20 MG TAB PO SCH (07:37)
[2021-06-29] MEDS: ASPIRIN 81 MG PO SCH (07:37)
[2021-06-29] MEDS: METOPROLOL SUCCINATE (ER) 50 MG TAB.ER.24H PO SCH (07:37)
[2021-06-29] MEDS: lisinopriL 10 MG TAB PO SCH (07:38)
[2021-06-29] MEDS: FAMOTIDINE 20 MG TAB PO SCH ×2 (07:39→21:34)
[2021-06-29] MEDS: MORPHINE SULFATE 4 MG/ML SYRINGE IV PRN ×3 (07:40→21:33)
[2021-06-29 09:25] LABS: Basophils # (A) 0.09 X 10*3/uL (0.00-0.10); Basophils % (A) 1.2 %; Eosinophils # (A) 0.08 X 10*3/uL (0.04-0.35); HGB 14.9 g/dL (13.0-17.0); Immature Grans, Automated 0.3 %; Lymphocytes # (A) 1.35 X 10*3/uL (0.90-5.00); Lymphocytes % (A) 17.4 %; MCH 29.6 pg (27.0-32.0); MCV 95.4 fL (80.0-97.0); Mean Platelet Volume 11.2 fL (9.5-12.2); Monocytes # (A) 0.88 X 10*3/uL (0.20-1.00); Monocytes % (A) 11.4 %; NRBC Per 100 WBC 0 /100 WBCS (0.0-0.0); Neutrophils # (A) 5.32 X 10*3/uL (1.80-7.70); Neutrophils % (A) 68.7 %; Platelet Count 204 X 10*3/uL (140-440); RBC 5.03 X 10*6/uL (4.40-5.60); RDW 17.2 % (11.5-14.5); WBC 7.74 X 10*3/uL (4.50-10.00)
[2021-06-29] MEDS ORDERED: lisinopriL 20 MG TAB PO SCH (10:15)
[2021-06-29 10:49] LABS: Erythrocyte Sedimentation Rate 1 mm/Hr (0-15)
--- NOTE | 2021-06-29 19:00 | HP ---
HISTORY AND PHYSICAL CHIEF COMPLAINT: Pain in the left third toe. HISTORY OF PRESENT ILLNESS: This is another admission for this 51-year-old white male. He has a history of hypertension, congestive heart failure and edema. He also has COPD. He has a history of gastric ulcer. He has been an alcoholic. He apparently presented to the emergency room with a lesion on the end of his left third toe. It was felt that this represented an ulcer with possible either ischemia or infection. There was slight redness to the toe and some slight inflammation into the dorsum of the foot. He has not had a lot of pain. REVIEW OF SYSTEMS: He denies any neurologic problems, difficulty with vision or hearing, chest pain, abdominal pain, nausea, vomiting, melena, hematochezia, renal failure, nocturia, dysuria, frequency, incontinence, diabetes, etc. Past medical history, family history, and personal social histories are all otherwise essentially unremarkable except as already mentioned. He is ALLERGIC to NSAIDS, ZOCOR, AND CYMBALTA. His recent medications include: 1. Bactrim DS. 2. Furosemide 40 mg once a day. 3. Metoprolol 50 mg once a day. 4. Tramadol 50 mg q.6 p.r.n. 5. Pantoprazole 40 mg once a day. 6. Spironolactone 25 mg once a day. He does continue to smoke. He states he is a nondrinker. PHYSICAL EXAMINATION: Blood pressure is 160/100 with a pulse of 120, respirations of 18, and he is afebrile. In general he appeared to be somewhat disheveled and in no acute distress. Skin color was normal. Skin was warm and dry. He had multiple tattoos. Head, ears, eyes, nose, mouth and throat were normal and the carotids were normal. The chest was clear. The cardiac exam demonstrated sinus rhythm and no murmurs or extra sounds. The abdomen was soft and nontender. Extremities demonstrated dryness of the feet and there was an ulcer on the tip of the left third toe. There was slight erythema in that toe and in the dorsum of the distal foot. Pulses could not be palpated. Extremities were normal. Neurologically he seemed to be intact. He is admitted to the hospital with diagnoses: 1. Ulcer on the tip of the left third toe. 2. Possible cellulitis. 3. Rule out osteomyelitis. 4. History of alcoholism. 5. Chronic obstructive pulmonary disease. 6. History of hypertension. 7. Congestive heart failure. PLAN: 1. Bedrest. 2. IV fluids. 3. Consult with Infectious Disease and possibly Vascular Surgery. NAIDAL / IJN: [id number] /
--- NOTE | 2021-06-29 19:02 | PN ---
PROGRESS NOTE DATE OF SERVICE: 06/29/2021 CHIEF COMPLAINT: Ulcer and cellulitis of the left middle toe. HISTORY OF PRESENT ILLNESS: This gentleman seems to be doing fairly well. He has not had any complaints of pain. He seems to be slightly agitated. PHYSICAL EXAMINATION: Chest is clear. Cardiac exam is normal. The abdomen is soft and nontender. The left toe and the foot are about the same. There is slight redness on the distal left foot. IMPRESSION: 1. Cellulitis or osteomyelitis of the left third toe. 2. Rule out peripheral vascular disease. 3. Chronic obstructive pulmonary disease. 4. Congestive heart failure. PLAN: Continue with IV fluids and antibiotics and wait for further recommendations from Infectious Disease. MMODL / IJN: [id number] /
[2021-06-30] MEDS: MORPHINE SULFATE 4 MG/ML SYRINGE IV PRN ×4 (05:20→20:59)
[2021-06-30] MEDS: VANCOMYCIN 1,750 MG in SODIUM CHLORIDE 0.9% 500 ML 500 ML IVPB SCH ×2 (05:20→16:50)
--- NOTE | 2021-06-30 09:54 | P.PN ---
Subjective Progress Note Date: 06/29/21 Principal diagnosis: Left third toe wound and osteomyelitis Patient is a 51-year-old male presented to the hospital with lower extremity swelling and did have a nonhealing wound to the tip of his left third toe with abnormal x-ray suggestive of osteomyelitis. On today's evaluation that is 06/29/2021, the patient denies having any fever or any chills, still complaining of swelling to the lower extremity, wound with no drainage drying out no chest pain no abdominal pain and no diarrhea Objective - Vital Signs Vital signs: Vital Signs Temp 97.4 F L 06/29/21 13:57 Pulse 80 06/29/21 19:44 Resp 17 06/29/21 19:44 BP 149/91 06/29/21 19:44 Pulse Ox 99 06/29/21 19:44 Intake & Output 06/29/21 06/29/21 06/30/21 06:59 18:59 06:59 Weight 109.1 kg Other: # Voids 3 4 - Exam GENERAL DESCRIPTION: Middle-aged male lying in bed in no distress RESPIRATORY SYSTEM: Unlabored breathing , decreased breath sounds at bases HEART: S1 S2 regular rate and rhythm , ABDOMEN: Soft , no tenderness EXTREMITIES: Swelling to bilateral lower extremity left third toe tip wound is drying out - Labs CBC & Chem 7: 06/29/21 05:49 06/29/21 05:49 Labs: Abnormal Lab Results - Last 24 Hours (Table) 06/28/21 06/29/21 06/29/21 Range/Units 22:30 05:49 05:49 MCHC 31.0 L (32.0-37.0) g/dL RDW 17.2 H (11.5-14.5) % Sodium 136 L (137-145) mmol/L C-Reactive Protein 1.3 H (<1.0) mg/dL Urine Opiates Screen Detected H (NotDetected) Microbiology - Last 24 Hours (Table) 06/28/21 17:40 Gram Stain - Preliminary Toe - Left Third Wound Culture - Preliminary Presumptive Staph aureus Beta Hemolytic Strep Group C 06/28/21 04:12 Blood Culture - Preliminary Blood No Growth after 24 hours 06/28/21 04:27 Blood Culture - Preliminary Blood No Growth after 24 hours Assessment and Plan (1) Osteomyelitis of toe of left foot Current Visit: Yes Status: Acute Code(s): M86.9 - OSTEOMYELITIS, UNSPECIFIED SNOMED Code(s): 936475218 Plan: 1patient with nonhealing wound to the tip of his left third toe with concern for possible hammertoe deformity with a callus and ulceration with evidence of destructive changes on the plain x-ray concerning for osteomyelitis likely from gram-positive skin joyce, local cultures are currently pending 2patient to continue vancomycin pharmacy to dose while watching his kidney function closely Time with Patient: Less than 30
[2021-06-30] MEDS: METOPROLOL SUCCINATE (ER) 50 MG TAB.ER.24H PO SCH (10:56)
[2021-06-30] MEDS: ASPIRIN 81 MG PO SCH (10:56)
[2021-06-30] MEDS: FAMOTIDINE 20 MG TAB PO SCH ×2 (10:56→20:59)
[2021-06-30] MEDS: FUROSEMIDE 40 MG TAB PO SCH (10:56)
[2021-06-30] MEDS: ACETAMINOPHEN TAB 325 MG TAB PO PRN (13:06)
[2021-06-30] MEDS: ALPRAZolam 0.5 MG TAB PO PRN (13:07)
--- NOTE | 2021-06-30 18:18 | PN ---
PROGRESS NOTE CHIEF COMPLAINT: Osteomyelitis of the left third toe. HISTORY OF PRESENT ILLNESS: This gentleman is doing fairly well. He is being treated by Infectious Disease. PHYSICAL EXAMINATION: The foot is a little less cellulitic distally. The toe is about the same. Pulses cannot be easily palpated. Capillary refill is also difficult to tell because of dry skin. Chest is clear. Cardiac exam is normal. IMPRESSION: 1. Ulcer at the tip of the left middle toe. 2. Cellulitis of the distal left foot and left middle toe. 3. Rule out vascular insufficiency. PLAN: 1. Continue with antibiotics. 2. Vascular surgery consult. MMODL / IJN: [id number] /
--- NOTE | 2021-06-30 22:42 | P.PN ---
Subjective Progress Note Date: 06/30/21 Principal diagnosis: Left third toe wound and osteomyelitis Patient is a 51-year-old male presented to the hospital with lower extremity swelling and did have a nonhealing wound to the tip of his left third toe with abnormal x-ray suggestive of osteomyelitis. On today's evaluation that is 06/30/2021, the patient remains to be afebrile, the patient is complaining of swelling to the lower extremity, the patient wound to the left third toe with no drainage drying out no chest pain no abdominal pain and no diarrhea Objective - Vital Signs Vital signs: Vital Signs Temp 97.2 F L 06/30/21 13:45 Pulse 72 06/30/21 13:45 Resp 20 06/30/21 13:45 BP 146/104 06/30/21 13:45 Pulse Ox 91 L 06/30/21 13:45 Intake & Output 06/29/21 06/30/21 06/30/21 18:59 06:59 18:59 Weight 111 kg Other: # Voids 4 4 - Exam GENERAL DESCRIPTION: Middle-aged male lying in bed in no distress RESPIRATORY SYSTEM: Unlabored breathing , decreased breath sounds at bases HEART: S1 S2 regular rate and rhythm , ABDOMEN: Soft , no tenderness EXTREMITIES: Swelling to bilateral lower extremity left third toe tip wound is drying out - Labs CBC & Chem 7: 06/29/21 05:49 06/29/21 05:49 Labs: Microbiology - Last 24 Hours (Table) 06/28/21 04:27 Blood Culture - Preliminary Blood No Growth after 48 hours 06/28/21 04:12 Blood Culture - Preliminary Blood No Growth after 48 hours 06/28/21 17:40 Gram Stain - Preliminary Toe - Left Third Wound Culture - Preliminary Presumptive Staph aureus Beta Hemolytic Strep Group C Assessment and Plan (1) Osteomyelitis of toe of left foot Current Visit: Yes Status: Acute Code(s): M86.9 - OSTEOMYELITIS, UNSPECIFIED SNOMED Code(s): 836743915 Plan: 1patient with nonhealing wound to the tip of his left third toe with concern for possible hammertoe deformity with a callus and ulceration with evidence of destructive changes on the plain x-ray concerning for osteomyelitis likely from gram-positive skin joyce, local cultures finalized with MSSA and group C streptococcus, diabetic been switched over to cefazolin 2 g every 8 hours and discontinue the vancomycin Time with Patient: Less than 30
[2021-07-01] MEDS: ACETAMINOPHEN TAB 325 MG TAB PO PRN ×2 (00:21→21:25)
[2021-07-01] MEDS: MORPHINE SULFATE 4 MG/ML SYRINGE IV PRN ×5 (05:52→23:38)
[2021-07-01 06:28] LABS: ALT 127 U/L (4-49); AST 193 U/L (17-59); African American GFR (CKD) >90 (>60 ml/min/1.73 sqM); Albumin 2.9 g/dL (3.5-5.0); Alkaline Phosphatase 95 U/L (38-126); Anion Gap 3 mmol/L; Blood Urea Nitrogen 22 mg/dL (9-20); Calcium 8.1 mg/dL (8.4-10.2); Carbon Dioxide 24 mmol/L (22-30); Chloride 105 mmol/L (98-107); Glucose 68 mg/dL (74-99); Magnesium 1.8 mg/dL (1.6-2.3); Non-African American GFR(CKD) 84 (>60 ml/min/1.73 sqM); Potassium 3.9 mmol/L (3.5-5.1); Sodium 132 mmol/L (137-145); Total Protein 5.9 g/dL (6.3-8.2)
[2021-07-01] MEDS: FUROSEMIDE 40 MG TAB PO SCH (10:04)
[2021-07-01] MEDS: SPIRONOLACTONE 25 MG TAB PO SCH (10:04)
[2021-07-01] MEDS: ASPIRIN 81 MG PO SCH (10:04)
[2021-07-01] MEDS: METOPROLOL SUCCINATE (ER) 50 MG TAB.ER.24H PO SCH (10:05)
[2021-07-01] MEDS: FAMOTIDINE 20 MG TAB PO SCH ×2 (10:05→19:47)
[2021-07-01] MEDS ORDERED: lisinopriL 20 MG TAB PO SCH (10:15)
[2021-07-01] MEDS ORDERED: METOPROLOL SUCCINATE (ER) 25 MG TAB.ER.24H PO STA (12:31)
--- NOTE | 2021-07-01 12:43 | P.CRDCN ---
History of Present Illness History of present illness: HISTORY OF PRESENTING ILLNESS This is a pleasant 51-year-old male past medical history significant for with ischemic cardiomyopathy, illicit drug use, hypertension, noncompliance chronic systolic heart failure and paroxysmal atrial fibrillation. He does not follow regularly in the office with Dr. Owens, last visit 2018. We have been asked to see in consultation for ventricular tachycardia. He is here being treated for left toe osteomyelitis. According to the patient he was seen and evaluated this morning by vascular surgery with recommendation for amputation. He is complaining of orthopnea, shortness of breath, lower extremity edema and fatigue. DIAGNOSTICS EKG reveals sinus tachycardia heart rate of 104 T-wave inversions noted in the lateral leads. Telemetry tracings indicate sinus rhythm with run of ventricular tachycardia yesterday evening at 1915. Chest xray negative for an acute cardiopulmonary process. Laboratory reviewed, CBC 7, hemoglobin 14.9, platelets 204, sodium 132, potassium 3.9, creatinine 1.04, magnesium 1.8, NT proBNP 1610. Current cardiac medications include aspirin 81 mg daily, Lasix 60 mg twice a day, lisinopril 10 mg twice a day and Toprol 50 mg daily. Cardiac catheterization performed in 03/2021 revealed normal coronary arteries with elevated LVEDP. Most recent echocardiogram obtained in February 2021 revealed severely impaired LV systolic function with ejection fraction 20-25%, severe MR, severe TR and severe pulmonary hypertension with an RVSP of 77 mmHg. REVIEW OF SYSTEMS At the time of my exam: CONSTITUTIONAL: Denies fever or chills. CARDIOVASCULAR: Complains of shortness of breath, orthopnea and PND. Denies chest pain or palpitations. RESPIRATORY: Denies cough. GASTROINTESTINAL: Denies abdominal pain, diarrhea, constipation, nausea or vomiting. MUSCULOSKELETAL: Denies myalgias. NEUROLOGIC: Denies numbness, tingling, headache or weakness. ENDOCRINE: Denies fatigue, weight change, polydipsia or polyurina. GENITOURINARY: Denies burning, hematuria or urgency with micturation. HEMATOLOGIC: Denies history of anemia or bleeding. PHYSICAL EXAMINATION Blood pressure 145/116 heart rate 71 afebrile and maintaining oxygen saturation on air. CONSTITUTIONAL: No apparent distress. Obese. HEENT: Head is normocephalic. Pupils are equal, round. Sclerae anicteric. Mucous membranes of the mouth are moist. No JVD. No carotid bruit. CHEST EXAMINATION: Lungs are clear to auscultation. No chest wall tenderness is noted on palpation or with deep breathing. HEART EXAMINATION: Regular rate and rhythm. S1, S2 heard. Systolic ejection murmur at the base, no gallops or rub. ABDOMEN: Soft, nontender. EXTREMITIES: 2+ bilateral lower extremity pitting edema and no calf tenderness. NEUROLOGIC EXAMINATION: Patient is awake, alert and oriented x3. ASSESSMENT Osteomyelitis Ventricular tachycardia Chronic systolic heart failure Nonischemic cardiomyopathy Noncompliance Illicit drug use PLAN Add Aldactone 25 mg daily. Resume lisinopril 20 mg daily. Continue beta darleen at current dose, he is bradycardic. Not in acute heart failure. We will follow as needed. Thank you kindly for this consultation. Nurse Practitioner note has been reviewed, I agree with a documented findings and plan of care. Patient was seen and examined. Past Medical History Past Medical History: Atrial Fibrillation, COPD, Hyperlipidemia, Hypertension, Pneumonia Additional Past Medical History / Comment(s): Other HX; Costochondritis, chronic pain, chronic low back pain with bilateral sciatica, neuropathy bilateral hands/feet, migraines, kidney stones, past partial small bowel obstruction. HTN the last 10 yrs Stopped taking meds 5 yrs ago. COPD due to tobacco use. MArijuna use 3 -4 times a week - Smoke it History of Any Multi-Drug Resistant Organisms: None Reported, MRSA Date of last positivie culture/infection: 04/10/18 MDRO Source:: TOE Past Surgical History: Heart Catheterization, Orthopedic Surgery Additional Past Surgical History / Comment(s): 03/14/18 Cardiac cath-normal coronaries, L shoulder rotator cuff repair x2, cervical injection. Past Anesthesia/Blood Transfusion Reactions: No Reported Reaction Past Psychological History: Anxiety, Bipolar, Depression, Schizophrenia Smoking Status: Current every day smoker Past Alcohol Use History: None Reported Past Drug Use History: Marijuana, Prescription Drug Abuse - Past Family History Father Family Medical History: Myocardial Infarction ([place]) Additional Family Medical History / Comment(s): mi at age 35, still living Mother Family Medical History: Myocardial Infarction ([place]) Additional Family Medical History / Comment(s): Mother has had at least one [place]- pt unsure at what age. He has not had much contact with his mother since he was 17 yrs old. Medications and Allergies Home Medications Medication Instructions Recorded Confirmed Type Furosemide [Lasix] 40 mg PO BID 04/20/21 06/28/21 History Aspirin EC [Ecotrin Low Dose] 81 mg PO DAILY 05/23/21 06/28/21 History Furosemide [Lasix] 20 mg PO BID 05/23/21 06/28/21 History Lisinopril [Prinivil] 10 mg PO BID 05/23/21 06/28/21 History Metoprolol Succinate [Toprol XL] 50 mg PO DAILY 05/23/21 06/28/21 History traMADol HCL 50 mg PO Q6H PRN 05/23/21 06/28/21 History Nitroglycerin Sl Tabs [Nitrostat] 0.4 mg SL Q5M PRN 06/28/21 06/28/21 History Allergies Allergy/AdvReac Type Severity Reaction Status Date / Time ibuprofen [From Motrin] AdvReac Nausea & Verified 06/28/21 07:16 Vomiting simvastatin [From Zocor] AdvReac Dizziness Verified 06/28/21 07:16 Physical Exam Vitals: Vital Signs Temp Pulse Resp BP Pulse Ox 07/01/21 07:42 97.4 F L 71 18 145/116 100 07/01/21 02:00 97.4 F L 60 16 137/100 100 06/30/21 20:00 97.4 F L 69 16 138/99 100 06/30/21 13:45 97.2 F L 72 20 146/104 91 L Intake and Output 06/30/21 07/01/21 07/01/21 22:59 06:59 14:59 Intake Total 480 550 Balance 480 550 Intake: Intake, IV Titration 550 Amount Vancomycin 1,750 mg In 500 Sodium Chloride 0.9% 500 ml 500 ml @ 167 mls/hr IVPB Q12H [facility] Rx#: [id number] ceFAZolin 2 gm In Sodium 50 Chloride 0.9% 50 ml @ 100 mls/hr IVPB Q8HR [facility] Rx# :[id number] Oral 480 Other: Weight 113.1 kg Results 06/29/21 05:49 07/01/21 05:14 Cardiac Enzymes 07/01/21 Range/Units 05:14 AST 193 H (17-59) U/L Comprehensive Metabolic Panel 07/01/21 Range/Units 05:14 Sodium 132 L (137-145) mmol/L Potassium 3.9 (3.5-5.1) mmol/L Chloride 105 (98-107) mmol/L Carbon Dioxide 24 (22-30) mmol/L BUN 22 H (9-20) mg/dL Creatinine 1.04 (0.66-1.25) mg/dL Glucose 68 L (74-99) mg/dL Calcium 8.1 L (8.4-10.2) mg/dL AST 193 H (17-59) U/L ALT 127 H (4-49) U/L Alkaline Phosphatase 95 (38-126) U/L Total Protein 5.9 L (6.3-8.2) g/dL Albumin 2.9 L (3.5-5.0) g/dL Current Medications Generic Name Dose Route Start Last Admin Trade Name Freq PRN Reason Stop Dose Admin Acetaminophen 650 mg 06/28/21 04:00 07/01/21 00:21 Acetaminophen Tab 325 Mg Tab PO 650 mg Q6HR PRN Administration Mild Pain or Fever > 100.5 Alprazolam 0.5 mg 06/30/21 06:13 06/30/21 13:07 Alprazolam 0.5 Mg Tab PO 0.5 mg TID PRN Administration Anxiety Aspirin 81 mg 06/29/21 09:00 06/30/21 10:56 Aspirin 81 Mg PO 81 mg DAILY [facility] Administration Famotidine 20 mg 06/28/21 09:00 06/30/21 20:59 Famotidine 20 Mg Tab PO 20 mg BID [facility] Administration Furosemide 40 mg 06/30/21 09:00 06/30/21 10:56 Furosemide 40 Mg Tab PO 40 mg DAILY [facility] Administration Cefazolin Sodium 2 gm/ Sodium 50 mls @ 100 mls/hr 07/01/21 00:00 06/30/21 23:41 Chloride IVPB 100 mls/hr Q8HR [facility] Administration Protocol Metoprolol Succinate 50 mg 06/28/21 13:00 06/30/21 10:56 Metoprolol Succinate (Er) 50 Mg Tab.Er.24h PO 50 mg DAILY [facility] Administration Morphine Sulfate 4 mg 06/28/21 04:00 07/01/21 05:52 Morphine Sulfate 4 Mg/Ml Syringe IV 4 mg Q4HR PRN Administration Severe Pain Naloxone HCl 0.2 mg 06/28/21 04:00 Naloxone 0.4 Mg/Ml 1 Ml Vial IV Q2M PRN Opioid Reversal Ondansetron HCl 4 mg 06/28/21 04:00 Ondansetron 4 Mg/2 Ml Vial IVP Q8HR PRN Nausea And Vomiting Tramadol HCl 50 mg 06/28/21 12:57 Tramadol 50 Mg Tab PO Q6H PRN Pain Intake and Output 06/30/21 07/01/21 07/01/21 22:59 06:59 14:59 Intake Total 480 550 Balance 480 550 Intake: Intake, IV Titration 550 Amount Vancomycin 1,750 mg In 500 Sodium Chloride 0.9% 500 ml 500 ml @ 167 mls/hr IVPB Q12H [facility] Rx#: [id number] ceFAZolin 2 gm In Sodium 50 Chloride 0.9% 50 ml @ 100 mls/hr IVPB Q8HR [facility] Rx# :[id number] Oral 480 Other: Weight 113.1 kg 06/29/21 05:49 07/01/21 05:14
--- NOTE | 2021-07-01 15:30 | ECHOF ---
Referral Reason:15 beat V tach run MEASUREMENTS -------- HEIGHT: 175.3 cm WEIGHT: 110.7 kg BP: 137/100 RVIDd: 5.6 cm (< 3.3) IVSd: 1.6 cm (0.6 - 1.1) LVIDd: 4.0 cm (3.9 - 5.3) LVPWd: 1.8 cm (0.6 - 1.1) IVSs: 1.8 cm LVIDs: 3.5 cm LVPWs: 2.2 cm LAESV Index (A-L): 35.81 ml/m Ao Diam: 3.5 cm (2.0 - 3.7) AV Cusp: 2.8 cm (1.5 - 2.6) LA Diam: 5.5 cm (2.7 - 3.8) MV EXCURSION: 10.613 mm (> 18.000) MV EF SLOPE: 56 mm/s (70 - 150) EPSS: 1.7 cm RAP: 20.00 mmHg RVSP: 55.05 mmHg FINDINGS -------- This was a technically adequate study. The left ventricular size is normal. There is moderate concentric left ventricular hypertrophy. T here is severe global hypokinesis of LV . Overall left ventricular systolic function is severely im paired with, an EF between 20 - 25 %. The right ventricle is severely enlarged. LA is moderately dilated 34-39 ml/m2 The right atrium is markedly enlarged. Interatrial and interventricular septum intact. Trace amount of aortic regurgitation. There is no evidence of aortic stenosis. Moderate mitral regurgitation is present. Severe tricuspid regurgitation present. There is severe pulmonary hypertension. The right ventric ular systolic pressure, as measured by Doppler, is 55.05mmHg. There is no pulmonic regurgitation present. The aortic root size is normal. The inferior vena cava is dilated with no significant inspiratory collapse which is consistent estima jossie right atrial pressure of >20 mmHg. There is a trivial pericardial effusion present. CONCLUSIONS -------- 1. The left ventricular size is normal. 2. There is moderate concentric left ventricular hypertrophy. 3. There is severe global hypokinesis of LV . 4. Overall left ventricular systolic function is severely impaired with, an EF between 20 - 25 %. 5. The right ventricle is severely enlarged. 6. LA is moderately dilated 34-39 ml/m2 7. The right atrium is markedly enlarged. 8. Trace amount of aortic regurgitation. 9. Moderate mitral regurgitation is present. 10. Severe tricuspid regurgitation present. 11. There is severe pulmonary hypertension. 12. The right ventricular systolic pressure, as measured by Doppler, is 55.05mmHg. 13. The inferior vena cava is dilated with no significant inspiratory collapse which is consistent es timated right atrial pressure of >20 mmHg. 14. There is a trivial pericardial effusion present. THRESHING MACHINE OPERATOR: Penny Faye RDCS
--- NOTE | 2021-07-01 15:31 | P.GSCN ---
History of Present Illness Consult date: 07/01/21 Reason for Consult: 3rd toe wound History of present illness: 51-year male presenting to [facility] for evaluation of nonhealing wound to his left third toe. He states he has had a wound at the tip of his toe for over a couple of weeks. He states it hasn't healed in that time and he is concerned. He also has been having issues with swelling which he states is due to heart failure. He has been on medication but the swelling hasn't improved. He states his toe pain is 7/10. Upon evaluation he had an x- ray of the foot which demonstrated destructive changes of the tuft of the distal phalanx of the third toe could relate to osteomyelitis. He was started on antibiotics. He denies any fevers, chills, chest pain or shortness of breath. Review of Systems All systems: negative (what is mentioned in the PMH or HPI) Past Medical History Past Medical History: Atrial Fibrillation, COPD, Hyperlipidemia, Hypertension, Pneumonia Additional Past Medical History / Comment(s): Other HX; Costochondritis, chronic pain, chronic low back pain with bilateral sciatica, neuropathy bilateral hands/feet, migraines, kidney stones, past partial small bowel obstruction. HTN the last 10 yrs Stopped taking meds 5 yrs ago. COPD due to tobacco use. MArijuna use 3 -4 times a week - Smoke it History of Any Multi-Drug Resistant Organisms: None Reported, MRSA Year Discovered:: 04/10/18 MDRO Source:: TOE Past Surgical History: Heart Catheterization, Orthopedic Surgery Additional Past Surgical History / Comment(s): 03/14/18 Cardiac cath-normal coronaries, L shoulder rotator cuff repair x2, cervical injection. Past Anesthesia/Blood Transfusion Reactions: No Reported Reaction Past Psychological History: Anxiety, Bipolar, Depression, Schizophrenia Smoking Status: Current every day smoker Past Alcohol Use History: None Reported Past Drug Use History: Marijuana, Prescription Drug Abuse - Past Family History Father Family Medical History: Myocardial Infarction (PA) Additional Family Medical History / Comment(s): mi at age 35, still living Mother Family Medical History: Myocardial Infarction (PA) Additional Family Medical History / Comment(s): Mother has had at least one PA- pt unsure at what age. He has not had much contact with his mother since he was 17 yrs old. Medications and Allergies Home Medications Medication Instructions Recorded Confirmed Type Furosemide [Lasix] 40 mg PO BID 04/20/21 06/28/21 History Aspirin EC [Ecotrin Low Dose] 81 mg PO DAILY 05/23/21 06/28/21 History Furosemide [Lasix] 20 mg PO BID 05/23/21 06/28/21 History Lisinopril [Prinivil] 10 mg PO BID 05/23/21 06/28/21 History Metoprolol Succinate [Toprol XL] 50 mg PO DAILY 05/23/21 06/28/21 History traMADol HCL 50 mg PO Q6H PRN 05/23/21 06/28/21 History Nitroglycerin Sl Tabs [Nitrostat] 0.4 mg SL Q5M PRN 06/28/21 06/28/21 History Allergies Allergy/AdvReac Type Severity Reaction Status Date / Time ibuprofen [From Motrin] AdvReac Nausea & Verified 06/28/21 07:16 Vomiting simvastatin [From Zocor] AdvReac Dizziness Verified 06/28/21 07:16 Surgical - Exam Vital Signs Temp Pulse Resp BP Pulse Ox 98.7 F 117 H 22 163/99 93 L 06/28/21 00:10 06/28/21 00:10 06/28/21 00:10 06/28/21 00:10 06/28/21 00:10 - General well developed, well nourished, no distress - Eyes PERRL, normal ocular movement - ENT normal pinna, normal nares - Neck no masses - Respiratory normal expansion, normal respiratory effort - Cardiovascular Rhythm: regular - Abdomen Abdomen: soft, non tender - Integumentary no rash, no growths - Neurologic normal coordination, no normal sensation - Psychiatric oriented to time, oriented to person, oriented to place, speech is normal palpable right DP pulse. Diminished DP and PT pulse on the left. ulceration of the 3rd toe on the left with TTP and erythema. Results - Labs 06/29/21 05:49 07/01/21 05:14 Abnormal Lab Results - Last 24 Hours (Table) 07/01/21 Range/Units 05:14 Sodium 132 L (137-145) mmol/L BUN 22 H (9-20) mg/dL Glucose 68 L (74-99) mg/dL Calcium 8.1 L (8.4-10.2) mg/dL AST 193 H (17-59) U/L ALT 127 H (4-49) U/L Total Protein 5.9 L (6.3-8.2) g/dL Albumin 2.9 L (3.5-5.0) g/dL Microbiology - Last 24 Hours (Table) 06/28/21 04:27 Blood Culture - Preliminary Blood No Growth after 72 hours 06/28/21 04:12 Blood Culture - Preliminary Blood No Growth after 72 hours 06/28/21 17:40 Gram Stain - Final Toe - Left Third Wound Culture - Final Staphylococcus aureus Beta Hemolytic Strep Group C Diabetes panel 07/01/21 Range/Units 05:14 Sodium 132 L (137-145) mmol/L Potassium 3.9 (3.5-5.1) mmol/L Chloride 105 (98-107) mmol/L Carbon Dioxide 24 (22-30) mmol/L BUN 22 H (9-20) mg/dL Creatinine 1.04 (0.66-1.25) mg/dL Glucose 68 L (74-99) mg/dL Calcium 8.1 L (8.4-10.2) mg/dL AST 193 H (17-59) U/L ALT 127 H (4-49) U/L Alkaline Phosphatase 95 (38-126) U/L Total Protein 5.9 L (6.3-8.2) g/dL Albumin 2.9 L (3.5-5.0) g/dL Calcium panel 07/01/21 Range/Units 05:14 Calcium 8.1 L (8.4-10.2) mg/dL Albumin 2.9 L (3.5-5.0) g/dL Pituitary panel 07/01/21 Range/Units 05:14 Sodium 132 L (137-145) mmol/L Potassium 3.9 (3.5-5.1) mmol/L Chloride 105 (98-107) mmol/L Carbon Dioxide 24 (22-30) mmol/L BUN 22 H (9-20) mg/dL Creatinine 1.04 (0.66-1.25) mg/dL Glucose 68 L (74-99) mg/dL Calcium 8.1 L (8.4-10.2) mg/dL Adrenal panel 07/01/21 Range/Units 05:14 Sodium 132 L (137-145) mmol/L Potassium 3.9 (3.5-5.1) mmol/L Chloride 105 (98-107) mmol/L Carbon Dioxide 24 (22-30) mmol/L BUN 22 H (9-20) mg/dL Creatinine 1.04 (0.66-1.25) mg/dL Glucose 68 L (74-99) mg/dL Calcium 8.1 L (8.4-10.2) mg/dL Total Bilirubin 1.0 (0.2-1.3) mg/dL AST 193 H (17-59) U/L ALT 127 H (4-49) U/L Alkaline Phosphatase 95 (38-126) U/L Total Protein 5.9 L (6.3-8.2) g/dL Albumin 2.9 L (3.5-5.0) g/dL - Imaging Additional studies: x-ray of the foot demonstrates left 3rd toe destruction possible osteo Assessment and Plan Assessment: 1. Left 3rd toe wound with possible osteomyelitis 2. Lower extremity edema secondary to congestive heart failure 3. Peripheral arterial disease 4. Chronic venous insufficiency Plan: Patient likely has some arterial disease and therefore we will obtain an arterial doppler to determine severity of disease. I did discuss with him options which may involve amputation of the 3rd toe which he is agreeable if needed. Further recommendations once arterial doppler completed. Thank you for the consultation.
--- NOTE | 2021-07-01 16:12 | P.PN ---
Subjective Progress Note Date: 07/01/21 Principal diagnosis: Left third toe wound and osteomyelitis Patient is a 51-year-old male presented to the hospital with lower extremity swelling and did have a nonhealing wound to the tip of his left third toe with abnormal x-ray suggestive of osteomyelitis. On today's evaluation that is , the patient denies any fever or any chills, the patient is still complaining of swelling to the lower extremity along with pain but no worsening pain to the left third toe, the patient wound to the left third toe with no drainage drying out no chest pain no abdominal pain and no diarrhea Objective - Vital Signs Vital signs: Vital Signs Temp 97.7 F 07/01/21 14:00 Pulse 60 07/01/21 14:00 Resp 18 07/01/21 14:00 BP 141/101 07/01/21 14:00 Pulse Ox 100 07/01/21 14:00 Intake & Output 06/30/21 07/01/21 07/01/21 18:59 06:59 18:59 Intake Total 480 550 Balance 480 550 Weight 113.1 kg Intake: Intake, IV Titration 550 Amount Vancomycin 1,750 mg In 500 Sodium Chloride 0.9% 500 ml 500 ml @ 167 mls/hr IVPB Q12H [facility] Rx#: [id number] ceFAZolin 2 gm In Sodium 50 Chloride 0.9% 50 ml @ 100 mls/hr IVPB Q8HR [facility] Rx# :[id number] Oral 480 Other: Voiding Method Toilet - Exam GENERAL DESCRIPTION: Middle-aged male lying in bed in no distress RESPIRATORY SYSTEM: Unlabored breathing , decreased breath sounds at bases HEART: S1 S2 regular rate and rhythm , ABDOMEN: Soft , no tenderness EXTREMITIES: Swelling to bilateral lower extremity left third toe tip wound is drying out - Labs CBC & Chem 7: 06/29/21 05:49 07/01/21 05:14 Labs: Abnormal Lab Results - Last 24 Hours (Table) 07/01/21 Range/Units 05:14 Sodium 132 L (137-145) mmol/L BUN 22 H (9-20) mg/dL Glucose 68 L (74-99) mg/dL Calcium 8.1 L (8.4-10.2) mg/dL AST 193 H (17-59) U/L ALT 127 H (4-49) U/L Total Protein 5.9 L (6.3-8.2) g/dL Albumin 2.9 L (3.5-5.0) g/dL Microbiology - Last 24 Hours (Table) 06/28/21 04:27 Blood Culture - Preliminary Blood No Growth after 72 hours 06/28/21 04:12 Blood Culture - Preliminary Blood No Growth after 72 hours 06/28/21 17:40 Gram Stain - Final Toe - Left Third Wound Culture - Final Staphylococcus aureus Beta Hemolytic Strep Group C Assessment and Plan (1) Osteomyelitis of toe of left foot Current Visit: Yes Status: Acute Code(s): M86.9 - OSTEOMYELITIS, UNSPECIFIED SNOMED Code(s): 540510963 Plan: 1patient with nonhealing wound to the tip of his left third toe with concern for possible hammertoe deformity with a callus and ulceration with evidence of destructive changes on the plain x-ray concerning for osteomyelitis likely from gram-positive skin joyce, local cultures finalized with MSSA and group C streptococcus, blood cultures have been negative, patient to continue cefazolin 2 g every 8 hours Time with Patient: Less than 30
--- NOTE | 2021-07-01 17:40 | PN ---
PROGRESS NOTE DATE OF SERVICE: 07/01/2021 CHIEF COMPLAINT: Cellulitis and ulcer of the left middle toe. HISTORY OF PRESENT ILLNESS: This gentleman is doing fairly well. He is not having a lot of pain. He has been seen by Vascular Surgery. Redness and swelling have diminished somewhat. He still has significant edema. REVIEW OF SYSTEMS: He has no other complaints. PHYSICAL EXAMINATION: His chest is clear. Cardiac exam is normal. The abdomen is protuberant and soft. There is slightly less redness in the left middle toe and distal foot. He still has quite a bit of edema. His blood pressure is also elevated. IMPRESSION: 1. Cellulitis of the left third toe and distal foot. 2. Ulcer on the tip of the left third toe. 3. Hypertension. PLAN: 1. Await further recommendations from Vascular Surgery. 2. Increase lisinopril from 20 to 40 mg once a day. MMODL / IJN: [id number] /
[2021-07-01] MEDS: lisinopriL 20 MG TAB PO SCH (17:51)
[2021-07-01 23:01] LABS: Hepatitis A Antibody IgM Nonreactive (Nonreactive); Hepatitis B Core IgM Nonreactive (Nonreactive); Hepatitis B Surface Antigen Nonreactive (Nonreactive); Hepatitis C IgG Antibody Nonreactive (Nonreactive)
[2021-07-02] MEDS: MORPHINE SULFATE 4 MG/ML SYRINGE IV PRN ×6 (04:23→23:41)
[2021-07-02] MEDS: ALPRAZolam 0.5 MG TAB PO PRN (05:19)
[2021-07-02] MEDS: ASPIRIN 81 MG PO SCH (06:58)
[2021-07-02] MEDS: FAMOTIDINE 20 MG TAB PO SCH ×2 (06:58→20:17)
[2021-07-02] MEDS: METOPROLOL SUCCINATE (ER) 50 MG TAB.ER.24H PO SCH (06:58)
[2021-07-02] MEDS: FUROSEMIDE 40 MG TAB PO SCH ×2 (06:58→15:29)
[2021-07-02] MEDS: lisinopriL 20 MG TAB PO SCH (06:58)
[2021-07-02] MEDS: SPIRONOLACTONE 25 MG TAB PO SCH (06:58)
[2021-07-02] MEDS ORDERED: METOPROLOL SUCCINATE (ER) 50 MG TAB.ER.24H PO SCH (09:00)
--- NOTE | 2021-07-02 14:02 | P.PN ---
Subjective Progress Note Date: 07/02/21 Principal diagnosis: right 3rd toe wound patient seen and examined. Doing well. Arterial dopplers done. He denies any fevers, chills, chest pain or shortness of breath. Objective - Vital Signs Vital signs: Vital Signs Temp 97.5 F L 07/02/21 07:23 Pulse 75 07/02/21 07:23 Resp 18 07/02/21 08:00 BP 140/101 07/02/21 07:23 Pulse Ox 96 07/02/21 07:23 Intake & Output 07/01/21 07/02/21 07/02/21 18:59 06:59 18:59 Output Total 1 Balance -1 Weight 113.4 kg Output: Urine/Stool Mix 1 Other: Voiding Method Toilet Toilet Toilet # Voids 4 3 - Exam multiphasic dp and pt signals bilaterally left 3rd toe with erythema, ischemia and tenderness to palpation. - Labs CBC & Chem 7: 06/29/21 05:49 07/01/21 05:14 Labs: Microbiology - Last 24 Hours (Table) 06/28/21 04:27 Blood Culture - Preliminary Blood No Growth after 96 hours 06/28/21 04:12 Blood Culture - Preliminary Blood No Growth after 96 hours Assessment and Plan Assessment: 1. Left 3rd toe wound with osteomyelitis 2. Lower extremity edema secondary to congestive heart failure 3. Peripheral arterial disease 4. Chronic venous insufficiency Plan: Left 3rd toe amputation tomorrow.
--- NOTE | 2021-07-02 14:18 | PN ---
PROGRESS NOTE CHIEF COMPLAINT: Osteomyelitis of the left third toe with cellulitis and edema. HISTORY OF PRESENT ILLNESS: This gentleman is doing fairly well. His cellulitis continues to improve. He is going for a toe amputation on Saturday. In the meantime, he is still having a lot of lower extremity edema. PHYSICAL EXAMINATION: Chest is clear. Cardiac exam is normal. Vital signs are normal. He has about 3 or 4+ edema in both lower extremities. Cellulitis in the left foot middle toe is improved. IMPRESSION: 1. Osteomyelitis of the left middle toe with cellulitis of the distal foot. 2. Lower extremity edema. PLAN: 1. Increase Lasix from once a day to twice a day. 2. Amputation on Saturday. MMODL / IJN: [id number] /
--- NOTE | 2021-07-02 22:29 | P.PN ---
Subjective Progress Note Date: 07/02/21 Principal diagnosis: Left third toe wound and osteomyelitis Patient is a 51-year-old male presented to the hospital with lower extremity swelling and did have a nonhealing wound to the tip of his left third toe with abnormal x-ray suggestive of osteomyelitis. Patient has been seen by vascular surgery and is recommending amputation of his left third toe to which the patient seemed to be agreeable On today's evaluation that is 07/02/2021, the patient remains to be A. fib, the patient is still complaining of swelling to the lower extremity along with pain however denies worsening pain to the left third toe, the patient wound to the left third toe with no drainage drying out no chest pain no abdominal pain and no diarrhea Objective - Vital Signs Vital signs: Vital Signs Temp 97.4 F L 07/02/21 20:00 Pulse 69 07/02/21 20:00 Resp 16 07/02/21 20:00 BP 159/113 07/02/21 20:00 Pulse Ox 96 07/02/21 20:00 Intake & Output 07/02/21 07/02/21 07/03/21 06:59 18:59 06:59 Weight 113.4 kg Other: Voiding Method Toilet Toilet # Voids 3 - Exam GENERAL DESCRIPTION: Middle-aged male lying in bed in no distress RESPIRATORY SYSTEM: Unlabored breathing , decreased breath sounds at bases HEART: S1 S2 regular rate and rhythm , ABDOMEN: Soft , no tenderness EXTREMITIES: Swelling to bilateral lower extremity left third toe tip wound is drying out - Labs CBC & Chem 7: 06/29/21 05:49 07/01/21 05:14 Labs: Microbiology - Last 24 Hours (Table) 06/28/21 04:27 Blood Culture - Preliminary Blood No Growth after 96 hours 06/28/21 04:12 Blood Culture - Preliminary Blood No Growth after 96 hours Assessment and Plan (1) Osteomyelitis of toe of left foot Current Visit: Yes Status: Acute Code(s): M86.9 - OSTEOMYELITIS, UNSPECIFIED SNOMED Code(s): 089914739 Plan: 1patient with nonhealing wound to the tip of his left third toe with concern for possible hammertoe deformity with a callus and ulceration with evidence of destructive changes on the plain x-ray concerning for osteomyelitis likely from gram-positive skin joyce, local cultures finalized with MSSA and group C str eptococcus, blood cultures have been negative, patient to continue with the cefazolin waiting for the left and surgical procedure per vascular surgery Time with Patient: Less than 30
[2021-07-03] MEDS: MORPHINE SULFATE 4 MG/ML SYRINGE IV PRN ×6 (03:29→22:17)
[2021-07-03] MEDS: METOPROLOL SUCCINATE (ER) 50 MG TAB.ER.24H PO SCH (07:46)
[2021-07-03] MEDS: FUROSEMIDE 40 MG TAB PO SCH ×2 (07:46→15:30)
[2021-07-03] MEDS: lisinopriL 20 MG TAB PO SCH (07:47)
[2021-07-03] MEDS: SPIRONOLACTONE 25 MG TAB PO SCH (07:47)
[2021-07-03] MEDS: FAMOTIDINE 20 MG TAB PO SCH ×2 (11:07→19:14)
[2021-07-03] MEDS: ASPIRIN 81 MG PO SCH (11:07)
[2021-07-03] MEDS ORDERED: LACTATED RINGERS 1,000 ML IV ONE (13:00)
[2021-07-03] MEDS ORDERED: KETAMINE 10 MG/ML 20 ML VIAL ONE (13:19)
[2021-07-03] MEDS ORDERED: MIDAZOLAM 2 MG/2 ML VIAL ONE (13:19)
[2021-07-03] MEDS ORDERED: fentaNYL (PF) 50 MCG/ML 2 ML AMP ONE (13:19)
[2021-07-03] MEDS ORDERED: PROPOFOL 10 MG/ML 20 ML VIAL IV ONE (13:19)
[2021-07-03] MEDS ORDERED: BUPIVACAINE (PF) 0.25% 30 ML VIAL SQ ONE (14:06)
--- NOTE | 2021-07-03 14:36 | P.OP ---
Date of Procedure: 07/03/21 Preoperative Diagnosis: Chronic osteomyelitis third toe left foot Postoperative Diagnosis: Same. Procedure(s) Performed: Amputation third toe left foot at the inter-phalangeal level. Implants: None. Anesthesia: local (0.25% Marcaine) Surgeon: Balbir Yang Estimated Blood Loss (ml): 3 IV fluids (ml): 800 Urine output (ml): 0 Pathology: other (Third toe left foot) Condition: stable Disposition: no change Indications for Procedure: Patient is a 51-year-old male with a history of chronic osteomyelitis of the third toe left foot. This is associated with a chronic wound. This is been unresponsive to medical therapy and patient is offered toe amputation. The procedure, risk and benefits were discussed with the patient. Patient wished to proceed. Description of Procedure: Patient was brought to the operating room placed in the supine position. The left foot was sterilely prepped and draped in usual manner. 0.25% Marcaine was administered in a digital block of the third toe. A cup incision was made carried down through the subcu change tissues. Good bleeding properties were noted. Hemostasis was achieved using electrocautery. The bone was then transected and sent to the pathology department. Additional bone was removed with a rongeur. The wound was then irrigated and closed primarily with 4-0 nylon suture. Proper dressing was applied. Patient tolerated the procedure well and was taken to the recovery area satisfactory and stable condition.
[2021-07-03] MEDS: traMADol 50 MG TAB PO PRN ×2 (17:33→23:26)
--- NOTE | 2021-07-03 20:18 | PN ---
PROGRESS NOTE CHIEF COMPLAINT: Osteomyelitis of the left middle toe and cellulitis of the left foot. HISTORY OF PRESENT ILLNESS: This gentleman has been stable and he still has some edema. His surgery is tomorrow. PHYSICAL EXAMINATION: Vital signs are normal. Chest is clear. Cardiac exam is normal. Abdomen is soft, nontender. IMPRESSION: 1. Cellulitis and possible osteomyelitis of the left middle toe with a distal ulcer. 2. Cellulitis of the distal left foot. 3. Edema. PLAN: Surgery is planned for tomorrow. MMODL / IJN: [id number] /
--- NOTE | 2021-07-03 23:08 | P.PN ---
Subjective Progress Note Date: 07/03/21 Principal diagnosis: Left third toe wound and osteomyelitis Patient is a 51-year-old male presented to the hospital with lower extremity swelling and did have a nonhealing wound to the tip of his left third toe with abnormal x-ray suggestive of osteomyelitis. Patient has been seen by vascular surgery and is recommending amputation of his left third toe to which the patient seemed to be agreeable, patient is status post amputation of his left third toe by vascular surgery completed on 07/03/2021 On today's evaluation that is 07/03/2021, the patient denies any fever or any chills, the patient main symptom remains to be swelling to the lower extremity along with pain however denies worsening pain to the left third toe, the patient wound to the left third toe with no drainage drying out no chest pain no abdominal pain and no diarrhea Objective - Vital Signs Vital signs: Vital Signs Temp 97.0 F L 07/03/21 12:45 Pulse 75 07/03/21 14:47 Resp 16 07/03/21 14:47 BP 141/90 07/03/21 14:47 Pulse Ox 96 07/03/21 14:47 Intake & Output 07/02/21 07/03/21 07/03/21 18:59 06:59 18:59 Intake Total 50 300 Output Total 303 Balance 50 -3 Weight 111.9 kg Intake: IV 300 Intake, IV Titration 50 Amount ceFAZolin 2 gm In Sodium 50 Chloride 0.9% 50 ml @ 100 mls/hr IVPB Q8HR [facility] Rx# :[id number] Output: Urine 300 Estimated Blood Loss 3 Other: Voiding Method Toilet Toilet Toilet # Voids 2 - Exam GENERAL DESCRIPTION: Middle-aged male lying in bed in no distress RESPIRATORY SYSTEM: Unlabored breathing , decreased breath sounds at bases HEART: S1 S2 regular rate and rhythm , ABDOMEN: Soft , no tenderness EXTREMITIES: Swelling to bilateral lower extremity - Labs CBC & Chem 7: 06/29/21 05:49 07/01/21 05:14 Labs: Microbiology - Last 24 Hours (Table) 06/28/21 04:27 Blood Culture - Preliminary Blood No Growth after 120 hours 06/28/21 04:12 Blood Culture - Preliminary Blood No Growth after 120 hours Assessment and Plan (1) Osteomyelitis of toe of left foot Current Visit: Yes Status: Acute Code(s): M86.9 - OSTEOMYELITIS, UNSPECIFIED SNOMED Code(s): 585500329 Plan: 1patient with nonhealing wound to the tip of his left third toe with concern for possible hammertoe deformity with a callus and ulceration with evidence of destructive changes on the plain x-ray concerning for osteomyelitis likely from gram-positive skin joyce, local cultures finalized with MSSA and group C streptococcus, blood cultures have been negative, patient to continue with the cefazolin however as infected part has been removed patient will not need outpatient IV antibiotic therapy on discharge Time with Patient: Less than 30
[2021-07-04] MEDS: MORPHINE SULFATE 4 MG/ML SYRINGE IV PRN ×6 (02:13→22:36)
[2021-07-04] MEDS: traMADol 50 MG TAB PO PRN ×3 (05:36→23:30)
[2021-07-04] MEDS: METOPROLOL SUCCINATE (ER) 50 MG TAB.ER.24H PO SCH (08:24)
[2021-07-04] MEDS: SPIRONOLACTONE 25 MG TAB PO SCH (08:24)
[2021-07-04] MEDS: FUROSEMIDE 40 MG TAB PO SCH ×2 (08:24→16:54)
[2021-07-04] MEDS: ASPIRIN 81 MG PO SCH (08:24)
[2021-07-04] MEDS: FAMOTIDINE 20 MG TAB PO SCH ×2 (08:24→19:54)
[2021-07-04] MEDS: lisinopriL 20 MG TAB PO SCH (08:24)
--- NOTE | 2021-07-04 12:13 | P.PN ---
Subjective Progress Note Date: 07/04/21 Patient is seen and examined lying in bed. He is postop day #1 for amputation of the third toe left foot. He states his pain is well controlled. He has a dressing in place that is clean dry and intact. Objective - Vital Signs Vital signs: Vital Signs Temp 98.8 F 07/04/21 08:06 Pulse 84 07/04/21 08:06 Resp 18 07/04/21 08:06 BP 134/93 07/04/21 08:06 Pulse Ox 99 07/04/21 08:06 Intake & Output 07/03/21 07/04/21 07/04/21 18:59 06:59 18:59 Intake Total 300 850 Output Total 1003 Balance -703 850 Weight 112.5 kg Intake: IV 300 Intake, IV Titration 50 Amount ceFAZolin 2 gm In Sodium 50 Chloride 0.9% 50 ml @ 100 mls/hr IVPB Q8HR [facility] Rx# :[id number] Oral 800 Output: Urine 1000 Estimated Blood Loss 3 Other: Voiding Method Toilet Toilet Toilet # Voids 3 - Exam General appearance: The patient is alert, oriented, appears in no acute distress. HET: Head is normocephalic and atraumatic. Pupils are equal and reactive. Extremities: Left lower extremity warm to the touch. Dressing intact over amputation site, with no drainage. Neurological: No focal deficits. Strength and sensation are grossly intact. - Labs CBC & Chem 7: 06/29/21 05:49 07/01/21 05:14 Labs: Microbiology - Last 24 Hours (Table) 06/28/21 04:12 Blood Culture - Final Blood No Growth after 144 hours 06/28/21 04:27 Blood Culture - Final Blood No Growth after 144 hours Assessment and Plan Assessment: 1. Postop day #1 Left third toe amputation 2. Left third toe wound with osteomyelitis 3. Lower extremity edema secondary to congestive heart failure 4. Peripheral arterial disease 5. Chronic venous insufficiency Plan: 1. Keep current dressing in place 2. Continue with recommendations from infectious disease 3. Interval change dressing tomorrow, further recommendations forthcoming The impression and plan of care has been dictated as directed. Dr. Gandhi I performed a history and examination of this patient, discussed the same with the dictator. I agree with the dictator's note ,documented as a scribe. Any additional findings or plans will be noted.
--- NOTE | 2021-07-04 23:30 | P.PN ---
Subjective Progress Note Date: 07/04/21 Principal diagnosis: Left third toe wound and osteomyelitis Patient is a 51-year-old male presented to the hospital with lower extremity swelling and did have a nonhealing wound to the tip of his left third toe with abnormal x-ray suggestive of osteomyelitis. Patient has been seen by vascular surgery and is recommending amputation of his left third toe to which the patient seemed to be agreeable, patient is status post amputation of his left third toe by vascular surgery completed on 07/03/2021 On today's evaluation that is 07/04/2021, the patient remains to be afebrile, the patient continued to complain of swelling to the lower extremity along with pain however, the patient pain to the left third toe amputation site is currently controlled, the patient denies chest pain no abdominal pain and no diarrhea Objective - Vital Signs Vital signs: Vital Signs Temp 98.8 F 07/04/21 08:06 Pulse 84 07/04/21 08:06 Resp 18 07/04/21 08:06 BP 134/93 07/04/21 08:06 Pulse Ox 99 07/04/21 08:06 Intake & Output 07/03/21 07/04/21 07/04/21 18:59 06:59 18:59 Intake Total 300 850 Output Total 1003 Balance -703 850 Weight 112.5 kg Intake: IV 300 Intake, IV Titration 50 Amount ceFAZolin 2 gm In Sodium 50 Chloride 0.9% 50 ml @ 100 mls/hr [facility] Rx# :[id number] Oral 800 Output: Urine 1000 Estimated Blood Loss 3 Other: Voiding Method Toilet Toilet Toilet # Voids 3 - Exam GENERAL DESCRIPTION: Middle-aged male lying in bed in no distress RESPIRATORY SYSTEM: Unlabored breathing , decreased breath sounds at bases HEART: S1 S2 regular rate and rhythm , ABDOMEN: Soft , no tenderness EXTREMITIES: Swelling to bilateral lower extremity, left third toe amputation site wound is currently dressed no drainage on the dressing - Labs CBC & Chem 7: 06/29/21 05:49 07/01/21 05:14 Labs: Microbiology - Last 24 Hours (Table) 06/28/21 04:12 Blood Culture - Final Blood No Growth after 144 hours 06/28/21 04:27 Blood Culture - Final Blood No Growth after 144 hours Assessment and Plan (1) Osteomyelitis of toe of left foot Current Visit: Yes Status: Acute Code(s): M86.9 - OSTEOMYELITIS, UNSPECIFIED SNOMED Code(s): 931513093 Plan: 1patient with nonhealing wound to the tip of his left third toe with concern for possible hammertoe deformity with a callus and ulceration with evidence of destructive changes on the plain x-ray concerning for osteomyelitis likely from gram-positive skin joyce, local cultures finalized with MSSA and group C streptococcus, blood cultures have been negative, patient is status post amputation of the infected toe, we will keep the patient on cefazolin while inpatient however no need for IV antibiotics on discharge Time with Patient: Less than 30
[2021-07-05] MEDS: MORPHINE SULFATE 4 MG/ML SYRINGE IV PRN ×5 (02:21→19:47)
[2021-07-05] MEDS: lisinopriL 20 MG TAB PO SCH (08:33)
[2021-07-05] MEDS: traMADol 50 MG TAB PO PRN (08:33)
[2021-07-05] MEDS: FAMOTIDINE 20 MG TAB PO SCH ×2 (08:34→19:47)
[2021-07-05] MEDS: SPIRONOLACTONE 25 MG TAB PO SCH (08:34)
[2021-07-05] MEDS: ASPIRIN 81 MG PO SCH (08:34)
[2021-07-05] MEDS: METOPROLOL SUCCINATE (ER) 50 MG TAB.ER.24H PO SCH (08:34)
[2021-07-05] MEDS: FUROSEMIDE 40 MG TAB PO SCH ×2 (08:34→16:30)
[2021-07-05] MEDS: ALPRAZolam 0.5 MG TAB PO PRN (08:34)
[2021-07-05 10:19] VITALS: BMI 36.6
--- NOTE | 2021-07-05 11:02 | P.ARTDOP ---
Arterial Doppler LOWER EXTREMITY ARTERIAL DOPPLER: DATE OF SERVICE: 07/01/2021 Reason for study: Left third toe ulcer and rest pain. Doppler waveforms: Multiphasic bilaterally throughout. Pulse volume recording: []. Pressure gradients: None. Ankle-brachial indices: Greater than 1 bilaterally. Toe brachial indices: 0.78 on the right, 0.79 on the left Impression: Normal study.
--- NOTE | 2021-07-05 12:48 | P.PN ---
Subjective Progress Note Date: 07/05/21 Patient is seen and examined lying in bed. He is postop day #2 for amputation of the third toe left foot. He states his pain is well controlled, however he has chronic pain in feet and legs due to his swelling. He is afebrile. Arterial study showed normal arterial flow. Infectious disease is following patient closely and managing antibiotic therapy. Objective - Vital Signs Vital signs: Vital Signs Temp 97.6 F 07/05/21 07:17 Pulse 66 07/05/21 07:17 Resp 18 07/05/21 07:17 BP 126/76 07/05/21 07:17 Pulse Ox 97 07/05/21 07:17 Intake & Output 07/04/21 07/05/21 07/05/21 18:59 06:59 18:59 Other: Voiding Method Toilet Toilet # Voids 4 4 # Bowel Movements 2 - Exam General appearance: The patient is alert, oriented, appears in no acute distress. HET: Head is normocephalic and atraumatic. Pupils are equal and reactive. Extremities: Bilateral lower extremity with pitting edema. Third toe amputation site with pink tissue, no bleeding. Dressing reapplied with Adaptic and Kerlix. Neurological: No focal deficits. Strength and sensation are grossly intact. - Labs CBC & Chem 7: 06/29/21 05:49 07/01/21 05:14 Labs: Microbiology - Last 24 Hours (Table) 06/28/21 04:12 Blood Culture - Final Blood No Growth after 144 hours 06/28/21 04:27 Blood Culture - Final Blood No Growth after 144 hours Assessment and Plan Assessment: 1. Postop day #2 Left third toe amputation 2. Left third toe wound with osteomyelitis 3. Lower extremity edema secondary to congestive heart failure 4. Peripheral arterial disease 5. Chronic venous insufficiency Plan: 1. Dressing change daily, adaptic, gauze and kerlix. 2. Continue with recommendations from infectious disease including outpatient wound care Thank you for this consultation, we will sign off at this time. Patient to follow-up with Dr. Yang in 10-14 days. The impression and plan of care has been dictated as directed. Dr. Yang I performed a history and examination of this patient, discussed the same with the dictator. I agree with the dictator's note ,documented as a scribe. Any additional findings or plans will be noted.
--- NOTE | 2021-07-05 20:18 | PN ---
PROGRESS NOTE DATE OF SERVICE: 07/04/2021 CHIEF COMPLAINT: Status post amputation of the left little toe and cellulitis of the foot. HISTORY OF PRESENT ILLNESS: This gentleman is in quite a bit of discomfort. He denies chest pain, shortness of breath. PHYSICAL EXAMINATION: He still has significant lower extremity edema. Toe has been amputated. Cellulitis on the dorsum and distal aspect of the left foot is improving. IMPRESSION: 1. Osteomyelitis of the left third toe. 2. Cellulitis, left foot. 3. Status post amputation of the middle toe of the left foot. 4. Dependent edema. 5. Alcoholism. PLAN: Continue with his IV fluids and antibiotics for the time being. MMODL / IJN: [id number] /
--- NOTE | 2021-07-05 20:29 | PN ---
PROGRESS NOTE DATE OF SERVICE: 07/05/2021 CHIEF COMPLAINT: Status post amputation of left third toe. HISTORY OF PRESENT ILLNESS: This gentleman is doing fairly well. He is stable and he continues on IV antibiotics. PHYSICAL EXAMINATION: Chest is clear. Cardiac exam is normal. Abdomen is soft and nontender. There is no bleeding from the base of the left great toe which was amputated. IMPRESSION: Osteomyelitis of the left middle toe and distal foot. PLAN: No change in program except he continues IV antibiotics. MMODL / IJN: [id number] /
[2021-07-06] MEDS: MORPHINE SULFATE 4 MG/ML SYRINGE IV PRN ×2 (00:33→07:27)
[2021-07-06 07:33] VITALS: BP 150/102; PULSE 82; RESP 18; TEMP 97.5
[2021-07-06] MEDS: FUROSEMIDE 40 MG TAB PO SCH (07:59)
[2021-07-06] MEDS: FAMOTIDINE 20 MG TAB PO SCH (07:59)
[2021-07-06] MEDS: ASPIRIN 81 MG PO SCH (07:59)
[2021-07-06] MEDS: SPIRONOLACTONE 25 MG TAB PO SCH (07:59)
[2021-07-06] MEDS: METOPROLOL SUCCINATE (ER) 50 MG TAB.ER.24H PO SCH (07:59)
[2021-07-06] MEDS: lisinopriL 20 MG TAB PO SCH (07:59)
[2021-07-06] MEDS: traMADol 50 MG TAB PO PRN (10:59)
[2021-07-06] MEDS ORDERED: CEPHALEXIN 500 MG CAP PO SCH (13:00)
--- NOTE | 2021-07-06 22:50 | P.PN ---
Subjective Progress Note Date: 07/05/21 Principal diagnosis: Left third toe wound and osteomyelitis Patient is a 51-year-old male presented to the hospital with lower extremity swelling and did have a nonhealing wound to the tip of his left third toe with abnormal x-ray suggestive of osteomyelitis. Patient has been seen by vascular surgery and is recommending amputation of his left third toe to which the patient seemed to be agreeable, patient is status post amputation of his left third toe by vascular surgery completed on 07/03/2021 On today's evaluation that is 07/05/2021, the patient denies any fever or any chills, the patient is still complaining of swelling to the lower extremity along with pain however, the patient pain to the left third toe amputation site is currently controlled, the patient denies chest pain no abdominal pain and no diarrhea with antibiotic therapy Objective - Vital Signs Vital signs: Vital Signs Temp 97.6 F 07/05/21 07:17 Pulse 66 07/05/21 07:17 Resp 18 07/05/21 07:17 BP 126/76 07/05/21 07:17 Pulse Ox 95 07/05/21 08:27 Intake & Output 07/04/21 07/05/21 07/05/21 18:59 06:59 18:59 Weight 112.5 kg Other: Voiding Method Toilet Toilet Toilet # Voids 4 4 # Bowel Movements 2 - Exam GENERAL DESCRIPTION: Middle-aged male lying in bed in no distress RESPIRATORY SYSTEM: Unlabored breathing , decreased breath sounds at bases HEART: S1 S2 regular rate and rhythm , ABDOMEN: Soft , no tenderness EXTREMITIES: Swelling to bilateral lower extremity, left third toe amputation site wound is currently dressed no drainage on the dressing - Labs CBC & Chem 7: 06/29/21 05:49 07/01/21 05:14 Labs: Microbiology - Last 24 Hours (Table) 06/28/21 04:12 Blood Culture - Final Blood No Growth after 144 hours 06/28/21 04:27 Blood Culture - Final Blood No Growth after 144 hours Assessment and Plan (1) Osteomyelitis of toe of left foot Status: Acute Code(s): M86.9 - OSTEOMYELITIS, UNSPECIFIED SNOMED Code(s): 123634131 Plan: 1patient with nonhealing wound to the tip of his left third toe with concern for possible hammertoe deformity with a callus and ulceration with evidence of destructive changes on the plain x-ray concerning for osteomyelitis likely from gram-positive skin joyce, local cultures finalized with MSSA and group C streptococcus, blood cultures have been negative, patient is status post amputation of the infected toe, we will keep the patient on cefazolin while inpatient and finishing therapy with short course of oral Keflex on discharge Time with Patient: Less than 30
--- NOTE | 2021-07-07 18:35 | DS ---
DISCHARGE SUMMARY DATE OF DISCHARGE: 07/06/2021 CHIEF COMPLAINT: Osteomyelitis of the left third toe. HISTORY OF PRESENT ILLNESS AND PHYSICAL EXAMINATION: Details of this man's history and physical can be found in the initial workup. LABORATORY STUDIES: While he was in the hospital he had laboratory studies, details of which can be found in the laboratory section of his chart. COURSE IN THE HOSPITAL: After admission he was placed on bedrest and started on intravenous fluids and IV antibiotics. He was seen by Vascular Surgery and ultimately was taken for amputation of the left middle toe. He had a lot of trouble with lower extremity edema while he was in the hospital, and this was further evaluated. He was placed on diuretics, which seem to be making very little difference. He was doing well and it was felt that he could go home on July 06. He will be followed up in several days in the office. FINAL DIAGNOSIS: 1. Cellulitis and osteomyelitis of the left middle toe and distal foot. 2. Edema of the lower extremities. OPERATION: Amputation of left middle toe. CONSULTATIONS: 1. Infectious Disease. 2. Vascular Surgery. MMGURMEET / JENNIFER: [id number] /
== END 2021-07-06 11:25 | disposition home health service (06) | DRG 504 ==
LOC: EC 00:08 → 4SSUR 07:42
PROVIDERS: ADMIT Family Medicine; ATTEND Family Medicine
PROC: B44GZZZ Ultrasonography of Left Lower Extremity Arteries (ICD-10-PCS; 2021-07-01)
PROC: 0Y6U0Z3 Detachment at Left 3rd Toe, Low, Open Approach (ICD-10-PCS; principal; 2021-07-03 12:30)
DX: M86.672 Other chronic osteomyelitis, left ankle and foot (principal); L03.116 Cellulitis of left lower limb; I50.22 Chronic systolic (congestive) heart failure; I42.8 Other cardiomyopathies; I47.2 Ventricular tachycardia; I27.20 Pulmonary hypertension, unspecified; L97.529 Non-pressure chronic ulcer of other part of left foot with unspecified severity; I48.0 Paroxysmal atrial fibrillation; G62.9 Polyneuropathy, unspecified; I11.0 Hypertensive heart disease with heart failure; I73.9 Peripheral vascular disease, unspecified; J44.9 Chronic obstructive pulmonary disease, unspecified; F10.21 Alcohol dependence, in remission; F31.9 Bipolar disorder, unspecified; L03.032 Cellulitis of left toe; Z20.822 Contact with and (suspected) exposure to COVID-19; B95.61 Methicillin susceptible Staphylococcus aureus infection as the cause of diseases classified elsewhere; B95.4 Other streptococcus as the cause of diseases classified elsewhere; E78.5 Hyperlipidemia, unspecified; I87.2 Venous insufficiency (chronic) (peripheral); I08.1 Rheumatic disorders of both mitral and tricuspid valves; G89.29 Other chronic pain; M54.42 Lumbago with sciatica, left side; M54.41 Lumbago with sciatica, right side; M19.072 Primary osteoarthritis, left ankle and foot; F41.9 Anxiety disorder, unspecified; F17.210 Nicotine dependence, cigarettes, uncomplicated; Z91.19 Patient's noncompliance with other medical treatment and regimen; Z79.82 Long term (current) use of aspirin; Z79.899 Other long term (current) drug therapy; Z87.01 Personal history of pneumonia (recurrent); Z87.442 Personal history of urinary calculi; Z87.39 Personal history of other diseases of the musculoskeletal system and connective tissue; Z86.59 Personal history of other mental and behavioral disorders; Z86.69 Personal history of other diseases of the nervous system and sense organs; Z98.890 Other specified postprocedural states; Z88.6 Allergy status to analgesic agent; Z88.8 Allergy status to other drugs, medicaments and biological substances; Z82.49 Family history of ischemic heart disease and other diseases of the circulatory system
CPT/HCPCS: 36415; 71046; 80048; 80053; 80074; 80202; 80306; 81003; 83735; 83880; 84484; 85025; 85610; 85652; 85730; 86140; 87040; 87070; 87077; 87186; 87205; 87635; 88305; 88311; 93005; 93306; 93922; 94760; 96365; 96366; 96375; 99285

== ENCOUNTER 2021-07-11 16:26 | Observation (INO) | payer OTHER ==
[2021-07-11 18:05] LABS: Anisocytosis Slight; Basophils # (A) 0.1 k/uL (0-0.2); Basophils % (A) 1 %; Eosinophils # (A) 0.3 k/uL (0-0.7); Eosinophils % (A) 3 %; HCT 47.3 % (39.0-53.0); Hypochromasia Slight; Lymphocytes # (A) 1.3 k/uL (1.0-4.8); Lymphocytes % (A) 17 %; MCH 31.1 pg (25.0-35.0); MCHC 31.7 g/dL (31.0-37.0); Macrocytosis Slight; Mean Platelet Volume 8.8; Monocytes # (A) 0.4 k/uL (0-1.0); Monocytes % (A) 5 %; Neutrophils # (A) 5.5 k/uL (1.3-7.7); Neutrophils % (A) 73 %; Platelet Count 157 k/uL (150-450); RBC 4.82 m/uL (4.30-5.90); RDW 16.3 % (11.5-15.5); WBC 7.6 k/uL (3.8-10.6)
[2021-07-11 18:24] LABS: ALT 26 U/L (4-49); AST 41 U/L (17-59); African American GFR (CKD) >90 (>60 ml/min/1.73 sqM); Albumin 3.6 g/dL (3.5-5.0); Alkaline Phosphatase 117 U/L (38-126); Anion Gap 11 mmol/L; Blood Urea Nitrogen 16 mg/dL (9-20); Calcium 8.5 mg/dL (8.4-10.2); Carbon Dioxide 18 mmol/L (22-30); Chloride 109 mmol/L (98-107); Glucose 98 mg/dL (74-99); Non-African American GFR(CKD) 88 (>60 ml/min/1.73 sqM); Sodium 138 mmol/L (137-145); Total Bilirubin 1.1 mg/dL (0.2-1.3)
--- NOTE | 2021-07-11 19:54 | XR ---
Result: History: Pain status post amputation 6 days ago. Comparison: 06/28/2021. Technique: 3 views of the left foot. Findings: The bone mineralization is appropriate for age. There is interval partial amputation of the third toe at the level of the mid proximal phalangeal sha ft. There is minimal new osseous growth about the amputation stump. No radiographic evidence for oste omyelitis. There is moderate soft tissue edema at the dorsum of the foot. No soft tissue gas. Impression: Status post third toe amputation. Otherwise soft tissue edema without radiographic evidence for osteomyelitis.
--- NOTE | 2021-07-11 20:15 | ED ---
General Adult HPI - General Chief complaint: Skin/Abscess/Foreign Body Stated complaint: Infection in toe Time Seen by Provider: 07/11/21 17:35 Source: patient, RN notes reviewed, old records reviewed Mode of arrival: ambulatory Limitations: no limitations - History of Present Illness Initial comments: This is a 51-year-old male who presents emergency department stating that his home health aide nurse and primary medical care doctor wanted him to come to the hospital because his third toe was recently amputated and now it appears to be infected. Patient states the pain has gotten worse. Patient denies any fever chills. Patient denies any swelling. Patient denies any streaking erythema. Patient denies any other symptoms at this time. - Related Data Home Medications Medication Instructions Recorded Confirmed Furosemide [Lasix] 40 mg PO BID 04/20/21 06/28/21 Aspirin EC [Ecotrin Low Dose] 81 mg PO DAILY 05/23/21 06/28/21 Furosemide [Lasix] 20 mg PO BID 05/23/21 06/28/21 Lisinopril [Prinivil] 10 mg PO BID 05/23/21 06/28/21 Metoprolol Succinate [Toprol XL] 50 mg PO DAILY 05/23/21 06/28/21 traMADol HCL 50 mg PO Q6H PRN 05/23/21 06/28/21 Nitroglycerin Sl Tabs [Nitrostat] 0.4 mg SL Q5M PRN 06/28/21 06/28/21 Previous Rx's Medication Instructions Recorded Cephalexin [Keflex] 500 mg PO QID #60 cap 07/06/21 Spironolactone [Aldactone] 25 mg PO DAILY #10 tab 07/06/21 lisinopriL [Zestril] 40 mg PO DAILY #10 tab 07/06/21 Allergies Allergy/AdvReac Type Severity Reaction Status Date / Time ibuprofen [From Motrin] AdvReac Nausea & Verified 07/11/21 17:33 Vomiting simvastatin [From Zocor] AdvReac Dizziness Verified 07/11/21 17:33 Review of Systems ROS Statement: Those systems with pertinent positive or pertinent negative responses have been documented in the HPI. ROS Other: All systems not noted in ROS Statement are negative. Past Medical History Past Medical History: Atrial Fibrillation, COPD, Hyperlipidemia, Hypertension, Pneumonia Additional Past Medical History / Comment(s): Other HX; Costochondritis, chronic pain, chronic low back pain with bilateral sciatica, neuropathy bilateral hands/feet, migraines, kidney stones, past partial small bowel obstruction. HTN the last 10 yrs Stopped taking meds 5 yrs ago. COPD due to tobacco use. MArijuna use 3 -4 times a week - Smoke it History of Any Multi-Drug Resistant Organisms: None Reported, MRSA Date of last positivie culture/infection: 04/10/18 MDRO Source:: TOE Past Surgical History: Heart Catheterization, Orthopedic Surgery Additional Past Surgical History / Comment(s): 03/14/18 Cardiac cath-normal coronaries, L shoulder rotator cuff repair x2, cervical injection. Past Anesthesia/Blood Transfusion Reactions: No Reported Reaction Past Psychological History: Anxiety, Bipolar, Depression, Schizophrenia Smoking Status: Current every day smoker Past Alcohol Use History: None Reported Past Drug Use History: Marijuana, Prescription Drug Abuse - Past Family History Father Family Medical History: Myocardial Infarction (PR) Additional Family Medical History / Comment(s): mi at age 35, still living Mother Family Medical History: Myocardial Infarction (PR) Additional Family Medical History / Comment(s): Mother has had at least one PR- pt unsure at what age. He has not had much contact with his mother since he was 17 yrs old. General Exam - General Exam Comments Initial Comments: GENERAL: Patient is well-developed and well-nourished. Patient is nontoxic and well- hydrated and is in mild distress. ENT: Neck is soft and supple. No significant lymphadenopathy is noted. Oropharynx is clear. Moist mucous membranes. Neck has full range of motion without eliciting any pain. EYES: The sclera were anicteric and conjunctiva were pink and moist. Extraocular movements were intact and pupils were equal round and reactive to light. Eyelids were unremarkable. PULMONARY: Unlabored respirations. Good breath sounds bilaterally. No audible rales rhonchi or wheezing was noted. CARDIOVASCULAR: There is a regular rate and rhythm without any murmurs gallops or rubs. ABDOMEN: Soft and nontender with normal bowel sounds. SKIN: Skin is clear with no lesions or rashes and otherwise unremarkable. NEUROLOGIC: Patient is alert and oriented x3. Cranial nerves II through XII are grossly intact. Motor and sensory are also intact. Normal speech, volume and content. Symmetrical smile. MUSCULOSKELETAL: Third toe on the left foot is amputated the wound is approximated there is some mild swelling and minimal erythema. There is no drainage site note. Patient is very tender about that toe. LYMPHATICS: No significant lymphadenopathy is noted PSYCHIATRIC: Normal psychiatric evaluation. Limitations: no limitations Course Vital Signs 07/11/21 17:31 Temperature 97.7 F Pulse Rate 124 H Respiratory 18 Rate Blood Pressure 158/112 O2 Sat by Pulse 100 Oximetry Medical Decision Making - Medical Decision Making I spoke with Dr. Glasgow he wanted the patient admitted for 23 observation. - Lab Data Result diagrams: 07/11/21 17:48 07/11/21 17:48 Lab Results 07/11/21 07/11/21 Range/Units 17:48 17:48 WBC 7.6 (3.8-10.6) k/uL RBC 4.82 (4.30-5.90) m/uL Hgb 15.0 (13.0-17.5) gm/dL Hct 47.3 (39.0-53.0) % MCV 98.0 (80.0-100.0) fL MCH 31.1 (25.0-35.0) pg MCHC 31.7 (31.0-37.0) g/dL RDW 16.3 H (11.5-15.5) % Plt Count 157 (150-450) k/uL MPV 8.8 Neutrophils % 73 % Lymphocytes % 17 % Monocytes % 5 % Eosinophils % 3 % Basophils % 1 % Neutrophils # 5.5 (1.3-7.7) k/uL Lymphocytes # 1.3 (1.0-4.8) k/uL Monocytes # 0.4 (0-1.0) k/uL Eosinophils # 0.3 (0-0.7) k/uL Basophils # 0.1 (0-0.2) k/uL Hypochromasia Slight Anisocytosis Slight Macrocytosis Slight Sodium 138 (137-145) mmol/L Potassium 4.0 (3.5-5.1) mmol/L Chloride 109 H (98-107) mmol/L Carbon Dioxide 18 L (22-30) mmol/L Anion Gap 11 mmol/L BUN 16 (9-20) mg/dL Creatinine 1.00 (0.66-1.25) mg/dL Est GFR (CKD-EPI)AfAm >90 (>60 ml/min/1.73 sqM) Est GFR (CKD-EPI)NonAf 88 (>60 ml/min/1.73 sqM) Glucose 98 (74-99) mg/dL Calcium 8.5 (8.4-10.2) mg/dL Total Bilirubin 1.1 (0.2-1.3) mg/dL AST 41 (17-59) U/L ALT 26 (4-49) U/L Alkaline Phosphatase 117 (38-126) U/L Total Protein 7.0 (6.3-8.2) g/dL Albumin 3.6 (3.5-5.0) g/dL Disposition Clinical Impression: Infected surgical wound Disposition: ADMITTED IP TO THIS HOSP Referrals: Clif Glasgow MD [Primary Care Provider] - 1-2 days Time of Disposition: 20:17
[2021-07-11] MEDS ORDERED: VANCOMYCIN IV PER PHARMACY 1 EACH MISC MISCELLANE PRN (20:17)
[2021-07-11] MEDS ORDERED: SODIUM CHLORIDE 0.9% 1,000 ML IV ONE (20:18)
[2021-07-11] MEDS ORDERED: VANCOMYCIN 1,750 MG in SODIUM CHLORIDE 0.9% 500 ML 500 ML IVPB STA (20:24)
[2021-07-11] MEDS ORDERED: lisinopriL 10 MG TAB PO SCH (21:00)
[2021-07-11] MEDS: HYDROcodone/APAP 5-325MG 1 EACH TAB PO PRN (22:57)
[2021-07-11] MEDS: lisinopriL 20 MG TAB PO SCH (22:59)
[2021-07-12] MEDS: METOPROLOL SUCCINATE (ER) 50 MG TAB.ER.24H PO SCH (09:02)
[2021-07-12] MEDS: lisinopriL 20 MG TAB PO SCH (09:02)
[2021-07-12] MEDS: HYDROcodone/APAP 5-325MG 1 EACH TAB PO PRN ×3 (09:08→20:21)
--- NOTE | 2021-07-12 09:54 | P.GSCN ---
History of Present Illness Consult date: 07/12/21 Reason for Consult: infected amputation site Requesting physician: Clif Glasgow History of present illness: This is a 51-year-old male who was recently admitted and underwent a left third toe amputation on 07/03/[address] Yang for underlying osteomyelitis who presented back to the emergency department under the direction of his home care nurse for questionable infection. He states that he had noticed that his lower extremities were getting red, left greater than right. He also noted some increased pain in his amputation site. He denies any fevers or chills, nausea or vomiting. No drainage noted from the amputation site. He states that he is unsure when his follow-up appointment with Dr. Limon was. He is afebrile on admission. No evidence of leukocytosis. He was started vancomycin with consult to infectious disease. Left foot x-ray shows soft tissue swelling with no evidence of osteomyelitis. Tissue pathology from amputation reports ulcer with acute and chronic inflammation, fibrosis, histiocytes, abscess and degenerative changes. Underlying bone negative for acute osteomyelitis. Review of Systems A 14 point review of systems was completed all pertinent positives and negatives as stated in the HPI Past Medical History Past Medical History: Atrial Fibrillation, COPD, Hyperlipidemia, Hypertension, Pneumonia Additional Past Medical History / Comment(s): Other HX; Costochondritis, chronic pain, chronic low back pain with bilateral sciatica, neuropathy bilateral hands/feet, migraines, kidney stones, past partial small bowel obstruction. HTN the last 10 yrs Stopped taking meds 5 yrs ago. COPD due to tobacco use. MArijuna use 3 -4 times a week - Smoke it History of Any Multi-Drug Resistant Organisms: None Reported, MRSA Year Discovered:: 04/10/18 MDRO Source:: TOE Past Surgical History: Heart Catheterization, Orthopedic Surgery Additional Past Surgical History / Comment(s): 03/14/18 Cardiac cath-normal coronaries, L shoulder rotator cuff repair x2, cervical injection. Past Anesthesia/Blood Transfusion Reactions: No Reported Reaction Past Psychological History: Anxiety, Bipolar, Depression, Schizophrenia Additional Psychological History / Comment(s): Pt was on Mental Health 2 years ago at [facility] for suicidal ideation - Not seeing anyone currently Smoking Status: Current every day smoker Past Alcohol Use History: None Reported Additional Past Alcohol Use History / Comment(s): Started smoking at age 15- smoked 1 ppd but has cut down to one pack a day Past Drug Use History: Marijuana, Prescription Drug Abuse Additional Drug Use History / Comment(s): Pt smokes marijuana daily, and regular cigarrettes daily - Past Family History Father Family Medical History: Myocardial Infarction ([place]) Additional Family Medical History / Comment(s): mi at age 35, still living Mother Family Medical History: Myocardial Infarction ([place]) Additional Family Medical History / Comment(s): Mother has had at least one [place]- pt unsure at what age. He has not had much contact with his mother since he was 17 yrs old. Medications and Allergies Home Medications Medication Instructions Recorded Confirmed Type Furosemide [Lasix] 40 mg PO BID 04/20/21 07/11/21 History Aspirin EC [Ecotrin Low Dose] 81 mg PO DAILY 05/23/21 07/11/21 History Furosemide [Lasix] 20 mg PO BID 05/23/21 07/11/21 History Metoprolol Succinate [Toprol XL] 50 mg PO DAILY 05/23/21 07/11/21 History traMADol HCL 50 mg PO BID PRN 05/23/21 07/11/21 History Nitroglycerin Sl Tabs [Nitrostat] 0.4 mg SL Q5M PRN 06/28/21 07/11/21 History Cephalexin [Keflex] 500 mg PO QID #60 cap 07/06/21 07/11/21 Rx Spironolactone [Aldactone] 25 mg PO DAILY #10 tab 07/06/21 07/11/21 Rx lisinopriL [Zestril] 20 mg PO DAILY 07/11/21 07/11/21 History Allergies Allergy/AdvReac Type Severity Reaction Status Date / Time ibuprofen [From Motrin] AdvReac Nausea & Verified 07/11/21 21:37 Vomiting simvastatin [From Zocor] AdvReac Dizziness Verified 07/11/21 21:37 Surgical - Exam Vital Signs Temp Pulse Resp BP Pulse Ox 97.7 F 124 H 18 158/112 100 07/11/21 17:31 07/11/21 17:31 07/11/21 17:31 07/11/21 17:31 07/11/21 17:31 General appearance: The patient is alert, oriented, appears in no acute distress. HET: Head is normocephalic and atraumatic. Neck: Supple without lymphadenopathy. Heart: S1 S2. Regular rate and rhythm. Lungs: Clear to auscultation bilaterally. Abdomen: Soft, nontender, nondistended. Extremities: Normal skin color and turgor. Bilateral lower extremity pitting edema. Left foot third toe amputation site clean dry and intact. Sutures are in place. There is no evident drainage or infection. Neurological: No focal deficits. Strength and sensation are grossly intact. Results - Labs 07/11/21 17:48 07/11/21 17:48 Abnormal Lab Results - Last 24 Hours (Table) 07/11/21 07/11/21 Range/Units 17:48 17:48 RDW 16.3 H (11.5-15.5) % Chloride 109 H (98-107) mmol/L Carbon Dioxide 18 L (22-30) mmol/L Diabetes panel 07/11/21 Range/Units 17:48 Sodium 138 (137-145) mmol/L Potassium 4.0 (3.5-5.1) mmol/L Chloride 109 H (98-107) mmol/L Carbon Dioxide 18 L (22-30) mmol/L BUN 16 (9-20) mg/dL Creatinine 1.00 (0.66-1.25) mg/dL Glucose 98 (74-99) mg/dL Calcium 8.5 (8.4-10.2) mg/dL AST 41 (17-59) U/L ALT 26 (4-49) U/L Alkaline Phosphatase 117 (38-126) U/L Total Protein 7.0 (6.3-8.2) g/dL Albumin 3.6 (3.5-5.0) g/dL Calcium panel 07/11/21 Range/Units 17:48 Calcium 8.5 (8.4-10.2) mg/dL Albumin 3.6 (3.5-5.0) g/dL Pituitary panel 07/11/21 Range/Units 17:48 Sodium 138 (137-145) mmol/L Potassium 4.0 (3.5-5.1) mmol/L Chloride 109 H (98-107) mmol/L Carbon Dioxide 18 L (22-30) mmol/L BUN 16 (9-20) mg/dL Creatinine 1.00 (0.66-1.25) mg/dL Glucose 98 (74-99) mg/dL Calcium 8.5 (8.4-10.2) mg/dL Adrenal panel 07/11/21 Range/Units 17:48 Sodium 138 (137-145) mmol/L Potassium 4.0 (3.5-5.1) mmol/L Chloride 109 H (98-107) mmol/L Carbon Dioxide 18 L (22-30) mmol/L BUN 16 (9-20) mg/dL Creatinine 1.00 (0.66-1.25) mg/dL Glucose 98 (74-99) mg/dL Calcium 8.5 (8.4-10.2) mg/dL Total Bilirubin 1.1 (0.2-1.3) mg/dL AST 41 (17-59) U/L ALT 26 (4-49) U/L Alkaline Phosphatase 117 (38-126) U/L Total Protein 7.0 (6.3-8.2) g/dL Albumin 3.6 (3.5-5.0) g/dL - Imaging Comments: Left foot x-ray shows soft tissue swelling, no evidence of osteomyelitis Assessment and Plan Assessment: 1. Status post left foot third toe amputation for infected toe 2. Bilateral lower extremity edema 3. Possible Cellulitis Plan: 1. Continue with current antibiotics 2. Will remove sutures 3. No plans on any surgical intervention 4. Follow up with outpatient wound care Thank you for this consultation, we'll continue to follow. The impression and plan of care has been dictated as directed. Dr. Hu I performed a history and examination of this patient, discussed the same with the dictator. I agree with the dictator's note ,documented as a scribe. Any additional findings or plans will be noted.
[2021-07-12] MEDS ORDERED: VANCOMYCIN 1,750 MG in SODIUM CHLORIDE 0.9% 500 ML 500 ML IVPB SCH (10:00)
[2021-07-12] MEDS ORDERED: traMADol 50 MG TAB PO PRN (13:46)
[2021-07-12] MEDS: FUROSEMIDE 20 MG TAB PO SCH (17:24)
[2021-07-12] MEDS: FUROSEMIDE 40 MG TAB PO SCH (17:24)
[2021-07-12] MEDS ORDERED: CEPHALEXIN 500 MG CAP PO SCH (18:00)
--- NOTE | 2021-07-13 00:04 | P.CONS ---
History of Present Illness - Reason for Consult Consult date: 07/12/21 Left third toe amputation site wound infection Requesting physician: Clif Glasgow - Chief Complaint Left foot pain and swelling x few days - History of Present Illness Patient is a 51-year male who was recently admitted at this facility in this patient who did have a diabetic foot infection with nonhealing wound to the left third toe x-rays were suggestive of osteomyelitis the patient is status post left third toe amputation on 06/25/2021 local culture positive for strep and MSSA patient was treated with IV cefazolin while inpatient and was recommended to be discharged on oral Keflex patient also have a problem with bilateral lower extremity swelling and edema while the patient was evaluated by cardiology services patient not presenting back to the [facility] ER after the patient home health and nurse told the patient that his left third toe amputation site looks infected patient was complaining of pain to the lower extremity with increasing swelling describing the pain to be more of a dull aching 5-6 out of 10 head no radiation patient on presentation to the hospital was afebrile and no fever had recorded subsequently patient did have a normal white count creatinine was normal troponin has been negative blood culture was obtained patient did have x-ray of the foot soft tissue edema without evidence of osteomyelitis patient was started on vancomycin was admitted to the hospital infectious disease was consulted for further management of antibiotic therapy Review of Systems Positive point has been mentioned in the HPI rest of the systems are negative Past Medical History Past Medical History: Atrial Fibrillation, COPD, Hyperlipidemia, Hypertension, Pneumonia Additional Past Medical History / Comment(s): Other HX; Costochondritis, chronic pain, chronic low back pain with bilateral sciatica, neuropathy bilateral hands/feet, migraines, kidney stones, past partial small bowel obstruction. HTN the last 10 yrs Stopped taking meds 5 yrs ago. COPD due to tobacco use. MArijuna use 3 -4 times a week - Smoke it History of Any Multi-Drug Resistant Organisms: None Reported, MRSA Year Discovered:: 04/10/18 MDRO Source:: TOE Past Surgical History: Heart Catheterization, Orthopedic Surgery Additional Past Surgical History / Comment(s): 03/14/18 Cardiac cath-normal coronaries, L shoulder rotator cuff repair x2, cervical injection. Past Anesthesia/Blood Transfusion Reactions: No Reported Reaction Past Psychological History: Anxiety, Bipolar, Depression, Schizophrenia Additional Psychological History / Comment(s): Pt was on Mental Health 2 years ago at [facility] for suicidal ideation - Not seeing anyone currently Smoking Status: Current every day smoker Past Alcohol Use History: None Reported Additional Past Alcohol Use History / Comment(s): Started smoking at age 15- smoked 1 ppd but has cut down to one pack a day Past Drug Use History: Marijuana, Prescription Drug Abuse Additional Drug Use History / Comment(s): Pt smokes marijuana daily, and regular cigarrettes daily - Past Family History Father Family Medical History: Myocardial Infarction ([place]) Additional Family Medical History / Comment(s): mi at age 35, still living Mother Family Medical History: Myocardial Infarction ([place]) Additional Family Medical History / Comment(s): Mother has had at least one [place]-p t unsure at what age. He has not had much contact with his mother since he was 17 yrs old. Medications and Allergies Home Medications Medication Instructions Recorded Confirmed Type Furosemide [Lasix] 40 mg PO BID 04/20/21 07/11/21 History Aspirin EC [Ecotrin Low Dose] 81 mg PO DAILY 05/23/21 07/11/21 History Furosemide [Lasix] 20 mg PO BID 05/23/21 07/11/21 History Metoprolol Succinate [Toprol XL] 50 mg PO DAILY 05/23/21 07/11/21 History traMADol HCL 50 mg PO BID PRN 05/23/21 07/11/21 History Nitroglycerin Sl Tabs [Nitrostat] 0.4 mg SL Q5M PRN 06/28/21 07/11/21 History Cephalexin [Keflex] 500 mg PO QID #60 cap 07/06/21 07/11/21 Rx Spironolactone [Aldactone] 25 mg PO DAILY #10 tab 07/06/21 07/11/21 Rx lisinopriL [Zestril] 20 mg PO DAILY 07/11/21 07/11/21 History Allergies Allergy/AdvReac Type Severity Reaction Status Date / Time ibuprofen [From Motrin] AdvReac Nausea & Verified 07/11/21 21:37 Vomiting simvastatin [From Zocor] AdvReac Dizziness Verified 07/11/21 21:37 Physical Exam Vitals: Vital Signs Temp Pulse Pulse Resp BP BP BP 07/12/21 09:16 68 18 07/12/21 07:00 98.3 F 68 18 127/84 07/12/21 02:27 98.6 F 94 20 142/98 07/11/21 22:00 98.2 F 97 22 144/114 07/11/21 20:49 98.3 F 104 H 18 154/98 07/11/21 17:31 97.7 F 124 H 18 158/112 Pulse Ox 07/12/21 09:16 07/12/21 07:00 100 07/12/21 02:27 100 07/11/21 22:00 99 07/11/21 20:49 98 07/11/21 17:31 100 Intake and Output 07/11/21 07/12/21 07/12/21 22:59 06:59 14:59 Intake Total 118 Balance 118 Intake: Oral 118 Other: Voiding Method Urinal Urinal # Voids 1 Weight 108.862 kg GENERAL DESCRIPTION: Middle-aged male lying in bed, no distress. No tachypnea or accessory muscle of respiration use. HEENT: Shows Pallor , no scleral icterus. Oral mucous membrane is dry. No pharyngeal erythema or thrush NECK: Trachea central, no thyromegaly. LUNGS: Unlabored breathing. Clear to auscultation anteriorly. No wheeze or crackle. HEART: S1, S2, regular rate and rhythm. No loud murmur ABDOMEN: Soft, no tenderness , guarding or rigidity, no organomegaly EXTREMITIES: 2+ edema feet bilaterally left third toe amputation site wound is drying out to be no swelling redness or drainage SKIN: No rash, no masses palpable. NEUROLOGICAL: The patient is awake, alert, oriented x3, mood and affect normal. Results CBC & Chem 7: 07/11/21 17:48 07/11/21 17:48 Labs: Abnormal Lab Results - Last 24 Hours (Table) 07/11/21 07/11/21 Range/Units 17:48 17:48 RDW 16.3 H (11.5-15.5) % Chloride 109 H (98-107) mmol/L Carbon Dioxide 18 L (22-30) mmol/L Assessment and Plan (1) Infected surgical wound Current Visit: Yes Status: Acute Code(s): T81.49XA - INFECTION FOLLOWING A PROCEDURE, OTHER SURGICAL SITE, INIT SNOMED Code(s): 65736055 Plan: 1patient with a left third toe wound and concern for underlying osteomyelitis in this patient with status post amputation of left third toe culture positive for MSSA and strep now presented to hospital for advice of the home care nurse concerning for infection to the amputated stump in this patient with no fever or elevated white count x-rays were negative for any bony changes clinically not behaving as wound infection patient visit with me to be swelling in the legs and more likely to underlying cardiac condition. 2discontinue vancomycin as the last culture were positive for MSSA and not MRSA 3-we will recommend IV cefazolin while inpatient and transition to oral Keflex on discharge, patient will benefit from cardiology evaluation for his lower extremity edema possible cardiac etiology We will follow on clinical condition and cultures to further adjust medication if needed Thank you for this consultation will follow this patient along with you Time with Patient: Greater than 30
[2021-07-13] MEDS: FUROSEMIDE 20 MG TAB PO SCH ×2 (07:35→15:40)
[2021-07-13] MEDS: FUROSEMIDE 40 MG TAB PO SCH ×2 (07:35→15:40)
[2021-07-13] MEDS: HYDROcodone/APAP 5-325MG 1 EACH TAB PO PRN ×3 (07:36→20:36)
[2021-07-13] MEDS: ASPIRIN 81 MG PO SCH (07:36)
[2021-07-13] MEDS: METOPROLOL SUCCINATE (ER) 50 MG TAB.ER.24H PO SCH (07:36)
[2021-07-13] MEDS: SPIRONOLACTONE 25 MG TAB PO SCH (07:36)
[2021-07-13 07:39] LABS: African American GFR (CKD) 89 (>60 ml/min/1.73 sqM); Anion Gap 3 mmol/L; Blood Urea Nitrogen 19 mg/dL (9-20); Calcium 8.1 mg/dL (8.4-10.2); Carbon Dioxide 24 mmol/L (22-30); Chloride 108 mmol/L (98-107); Glucose 83 mg/dL (74-99); Non-African American GFR(CKD) 77 (>60 ml/min/1.73 sqM); Potassium 4.2 mmol/L (3.5-5.1); Sodium 135 mmol/L (137-145)
[2021-07-13] MEDS ORDERED: lisinopriL 20 MG TAB PO SCH (09:00)
--- NOTE | 2021-07-13 13:47 | P.PN ---
Subjective Progress Note Date: 07/13/21 Patient is seen and examined lying in bed. No acute changes through the night. Objective - Vital Signs Vital signs: Vital Signs Temp 98.1 F 07/13/21 07:00 Pulse 81 07/13/21 07:00 Resp 18 07/13/21 07:00 BP 141/103 07/13/21 07:00 Pulse Ox 100 07/13/21 07:00 Intake & Output 07/12/21 07/13/21 07/13/21 18:59 06:59 18:59 Intake Total 476 Balance 476 Intake: Oral 476 Other: Voiding Method Urinal Urinal # Voids 3 1 - Exam General appearance: The patient is alert, oriented, appears in no acute distress. HET: Head is normocephalic and atraumatic. Neck: Supple without lymphadenopathy. Extremities: Normal skin color and turgor. Bilateral lower extremity pitting edema. Left foot third toe amputation site clean dry and intact. Sutures are in place. There is no evident drainage or infection. Neurological: No focal deficits. Strength and sensation are grossly intact. - Labs CBC & Chem 7: 07/11/21 17:48 07/13/21 06:53 Labs: Abnormal Lab Results - Last 24 Hours (Table) 07/13/21 Range/Units 06:53 Sodium 135 L (137-145) mmol/L Chloride 108 H (98-107) mmol/L Calcium 8.1 L (8.4-10.2) mg/dL Microbiology - Last 24 Hours (Table) 07/11/21 19:58 Blood Culture - Preliminary Blood No Growth after 24 hours Assessment and Plan Assessment: 1. Status post left foot third toe amputation no current infection, pathology reports no acute osteomyelitis 2. Bilateral lower extremity edema Plan: 1. Will actually keep sutures in place, follow-up with vascular surgery next week. 2. No plans on any surgical intervention 3. Follow up with outpatient wound care Thank you for this consultation, we'll continue to follow. The impression and plan of care has been dictated as directed. Dr. Yang I performed a history and examination of this patient, discussed the same with the dictator. I agree with the dictator's note ,documented as a scribe. Any additional findings or plans will be noted.
--- NOTE | 2021-07-13 14:22 | XR ---
EXAMINATION TYPE: XR chest 2V DATE OF EXAM: 07/13/2021 COMPARISON: Chest x-ray 06/28/2021 HISTORY: Chest pain TECHNIQUE: Frontal and lateral views of the chest are obtained. FINDINGS: There is no focal air space opacity, pleural effusion, or pneumothorax seen. The cardiac silhouette size is stable, heart is borderline enlarged. Aorta is dense. The osseous structures are intact. IMPRESSION: No acute cardiopulmonary process. There is stable cardiomegaly.
[2021-07-13] MEDS ORDERED: lisinopriL 20 MG TAB PO STA (15:07)
[2021-07-13] MEDS ORDERED: METOPROLOL SUCCINATE (ER) 50 MG TAB.ER.24H PO STA (15:09)
--- NOTE | 2021-07-13 22:22 | P.PN ---
Subjective Progress Note Date: 07/13/21 Principal diagnosis: Left third toe amputation site cellulitis Patient is a 51-year-old male who was recently admitted to this facility and treated for a left third toe tip osteomyelitis status post amputation of left third toe culture were positive for strep and MSSA, patient will be admitted to the hospital for advised of his home care nurse concerning for infection to his left third toe amputation site. On today's evaluation that is 07/13/2021, the patient denies having any fever or any chills patient still complaining of swelling to lower extremity, denies any worsening pain to the left third toe amputation site is no drainage or open wound Objective - Vital Signs Vital signs: Vital Signs Temp 97.5 F L 07/13/21 14:16 Pulse 75 07/13/21 14:16 Resp 18 07/13/21 14:16 BP 149/105 07/13/21 14:16 Pulse Ox 100 07/13/21 14:16 Intake & Output 07/13/21 07/13/21 07/14/21 06:59 18:59 06:59 Other: Voiding Method Urinal Urinal # Voids 1 1 1 - Exam GENERAL DESCRIPTION: Middle-aged male up in the bed in no distress RESPIRATORY SYSTEM: Unlabored breathing , decreased breath sounds at bases HEART: S1 S2 regular rate and rhythm , ABDOMEN: Soft , no tenderness EXTREMITIES: 2+ edema feet, left third toe amputation site wound is currently drying out with no drainage - Labs CBC & Chem 7: 07/11/21 17:48 07/13/21 06:53 Labs: Abnormal Lab Results - Last 24 Hours (Table) 07/13/21 Range/Units 06:53 Sodium 135 L (137-145) mmol/L Chloride 108 H (98-107) mmol/L Calcium 8.1 L (8.4-10.2) mg/dL Microbiology - Last 24 Hours (Table) 07/11/21 19:58 Blood Culture - Preliminary Blood No Growth after 24 hours Assessment and Plan (1) Infected surgical wound Current Visit: Yes Status: Acute Code(s): T81.49XA - INFECTION FOLLOWING A PROCEDURE, OTHER SURGICAL SITE, INIT SNOMED Code(s): 35112944 Plan: 1patient with a left third toe wound and concern for underlying osteomyelitis in this patient with status post amputation of left third toe culture positive for MSSA and strep now presented to hospital for advice of the home care nurse concerning for infection to the amputated stump in this patient with no fever or elevated white count x-rays were negative for any bony changes clinically not behaving as wound infection patient visit with me to be swelling in the legs and more likely to underlying cardiac condition. 2discontinue vancomycin as the last culture were positive for MSSA and not MRSA 3-patient to continue with IV cefazolin while inpatient and transition to oral Keflex on discharge Time with Patient: Less than 30
[2021-07-14 08:09] VITALS: BP 137/79; PULSE 66; RESP 16; TEMP 97.5
[2021-07-14] MEDS: HYDROcodone/APAP 5-325MG 1 EACH TAB PO PRN (08:58)
[2021-07-14] MEDS: SPIRONOLACTONE 25 MG TAB PO SCH (08:59)
[2021-07-14] MEDS: FUROSEMIDE 20 MG TAB PO SCH (09:00)
[2021-07-14] MEDS ORDERED: lisinopriL 20 MG TAB PO SCH (09:00)
[2021-07-14] MEDS ORDERED: METOPROLOL SUCCINATE (ER) 100 MG TAB.ER.24H PO SCH (09:00)
[2021-07-14] MEDS: FUROSEMIDE 40 MG TAB PO SCH (09:00)
[2021-07-14] MEDS: ASPIRIN 81 MG PO SCH (09:00)
--- NOTE | 2021-07-14 10:38 | P.PN ---
Subjective Progress Note Date: 07/14/21 Patient is seen and examined lying in bed. No acute changes through the night. He has been afebrile. Objective - Vital Signs Vital signs: Vital Signs Temp 97.5 F L 07/14/21 07:00 Pulse 66 07/14/21 07:00 Resp 16 07/14/21 07:00 BP 137/79 07/14/21 07:00 Pulse Ox 100 07/14/21 07:00 Intake & Output 07/13/21 07/14/21 07/14/21 18:59 06:59 18:59 Intake Total 240 Balance 240 Intake: Oral 240 Other: Voiding Method Urinal # Voids 1 1 - Exam General appearance: The patient is alert, oriented, appears in no acute distress. HET: Head is normocephalic and atraumatic. Neck: Supple without lymphadenopathy. Extremities: Normal skin color and turgor. Bilateral lower extremity pitting edema. Left foot third toe amputation site clean dry and intact. Sutures are in place. There is no evident drainage or infection. Neurological: No focal deficits. Strength and sensation are grossly intact. - Labs CBC & Chem 7: 07/11/21 17:48 07/13/21 06:53 Labs: Microbiology - Last 24 Hours (Table) 07/11/21 19:58 Blood Culture - Preliminary Blood No Growth after 48 hours Assessment and Plan Assessment: 1. Status post non-infected left foot third toe amputation, pathology reports no acute osteomyelitis 2. Bilateral lower extremity edema Plan: 1. Will actually keep sutures in place, follow-up with vascular surgery next week. 2. No plans on any surgical intervention 3. Follow up with outpatient wound care Thank you for this consultation, patient is cleared for discharge from vascular surgery. We will sign off at this time. The impression and plan of care has been dictated as directed. Dr. Yang I performed a history and examination of this patient, discussed the same with the dictator. I agree with the dictator's note ,documented as a scribe. Any additional findings or plans will be noted.
--- NOTE | 2021-07-14 22:38 | P.PN ---
Subjective Progress Note Date: 07/14/21 Principal diagnosis: Left third toe amputation site cellulitis Patient is a 51-year-old male who was recently admitted to this facility and treated for a left third toe tip osteomyelitis status post amputation of left third toe culture were positive for strep and MSSA, patient will be admitted to the hospital for advised of his home care nurse concerning for infection to his left third toe amputation site. On today's evaluation that is 07/14/2021, the patient remains to be afebrile, the patient denies having any chest pain or shortness of breath or cough the, minimal swelling to lower extremity, the patient denies any worsening pain to the left third toe amputation site is no drainage or open wound Objective - Vital Signs Vital signs: Vital Signs Temp 97.5 F L 07/14/21 07:00 Pulse 66 07/14/21 07:00 Resp 16 07/14/21 07:00 BP 137/79 07/14/21 07:00 Pulse Ox 100 07/14/21 07:00 Intake & Output 07/13/21 07/14/21 07/14/21 18:59 06:59 18:59 Intake Total 240 Balance 240 Intake: Oral 240 Other: Voiding Method Urinal # Voids 1 1 - Exam GENERAL DESCRIPTION: Middle-aged male up in the bed in no distress RESPIRATORY SYSTEM: Unlabored breathing , decreased breath sounds at bases HEART: S1 S2 regular rate and rhythm , ABDOMEN: Soft , no tenderness EXTREMITIES: 2+ edema feet, left third toe amputation site wound is covered with a scab with no drainage - Labs CBC & Chem 7: 07/11/21 17:48 07/13/21 06:53 Labs: Microbiology - Last 24 Hours (Table) 07/11/21 19:58 Blood Culture - Preliminary Blood No Growth after 48 hours Assessment and Plan (1) Infected surgical wound Status: Acute Code(s): T81.49XA - INFECTION FOLLOWING A PROCEDURE, OTHER SURGICAL SITE, INIT SNOMED Code(s): 99576393 Plan: 1patient with a left third toe wound and concern for underlying osteomyelitis in this patient with status post amputation of left third toe culture positive for MSSA and strep now presented to hospital for advice of the home care nurse concerning for infection to the amputated stump in this patient with no fever or elevated white count x-rays were negative for any bony changes clinically not behaving as wound infection patient visit with me to be swelling in the legs and more likely to underlying cardiac condition. 2 last culture were positive for MSSA and strep 3-patient to continue with IV cefazolin while inpatient and transition to oral Keflex on discharge and close outpatient follow-up Time with Patient: Less than 30
--- NOTE | 2021-07-15 19:07 | HP ---
HISTORY AND PHYSICAL DATE OF SERVICE: 07/11/2021 CHIEF COMPLAINT: Possible postoperative infection of the left foot. HISTORY OF PRESENT ILLNESS: This gentleman came back to the emergency room because there was concern as to whether or not there was an ongoing infection in the distal left foot. He recently had his left middle toe removed for gangrene. When he came to emergency room he had no chills or fever. It was felt tomas just to bring him back in for IV antibiotics and further assessment from Surgery. REVIEW OF SYSTEMS: He has had no chills, fever, headache, chest pain, nausea, vomiting, urinary complaints, etc. Past medical history, family history and personal and social histories are unchanged. He has a history of hypertension, COPD, congestive heart failure, CAD, alcoholism. Past medical history, family history and personal and social history otherwise unchanged from his recent admitting and discharge summaries. He continues to smoke. He has been on Keflex. PHYSICAL EXAMINATION: Blood pressure is 142/90 with a pulse of 85, respirations of 34, and temperature 99. In general, he appeared to be slender and in no acute distress. Skin color is normal. Skin is warm and dry. Lymph nodes are not enlarged. Head, ears, eyes, nose, mouth and throat were normal. Neck veins not distended. Thyroid is not enlarged. Chest is clear but reveals decreased breath sounds due to his emphysema. Cardiac exam demonstrates normal sinus rhythm and no murmurs or extra sounds. The abdomen is flat, soft and nontender. Extremities are normal except for the left foot. Middle toe is absent. There is some redness around the base of the toe. There is no foul smelling or purulent drainage. IMPRESSION: 1. Postoperative cellulitis in the distal left foot following amputation of middle toe. 2. Chronic obstructive pulmonary disease. 3. Coronary artery disease. 4. History of heart failure. 5. History of alcoholism. PLAN: 1. Bedrest. 2. IV fluids. 3. Resume antibiotics. 4. Vascular surgery evaluation. MMODL / IJN: [id number] /
--- NOTE | 2021-07-15 19:30 | PN ---
PROGRESS NOTE DATE OF SERVICE: 07/13/2021. CHIEF COMPLAINT: Infected left foot. HISTORY OF PRESENT ILLNESS: This gentleman has developed some chest pain. He has had no fever or chills. He has had no diaphoresis, shortness of breath or radiation of the pain. PHYSICAL EXAMINATION: Chest is clear. Cardiac exam is normal. Abdomen is soft, nontender. IMPRESSION: 1. Chest pain. 2. History of coronary disease. 3. Cellulitis of the left distal foot. PLAN: EKG and cardiac enzymes. MMODL / IJN: [id number] /
--- NOTE | 2021-07-15 19:41 | PN ---
PROGRESS NOTE DATE OF SERVICE: 07/12/2021 CHIEF COMPLAINT: Possible wound infection of the left foot. HISTORY OF PRESENT ILLNESS: This is gentleman seems fairly comfortable and he has had no fever. He will have the foot looked at today by Vascular Surgery. PHYSICAL EXAMINATION: Chest is clear. Cardiac exam is normal. Abdomen is soft, nontender. The foot is wrapped at this time. IMPRESSION: Cellulitis and postop wound infection after amputation of the left middle toe. PLAN: Will await vascular surgery's evaluation. MMODL / IJN: [id number] /
--- NOTE | 2021-07-15 22:17 | DS ---
DISCHARGE SUMMARY CHIEF COMPLAINT: Cellulitis of the left foot. HISTORY OF PRESENT ILLNESS AND PHYSICAL EXAMINATION: Details of this man's history and physical can be found can be found in the initial workup. LABORATORY STUDIES: While he was in the hospital, he had laboratory studies, details can be found in the laboratory section of chart. COURSE IN THE HOSPITAL: After admission, he was placed on bedrest, started on intravenous fluids. He was seen by Vascular Surgery. There was some question as to whether not he actually had any infection. He had no further problems such as increased pain, swelling, drainage, cellulitis, chills, fever, etc. It was felt that he could be discharged on the and he will go home on his usual activity, diet, medication as well as his antibiotics. He will be followed up in the office in a few days. FINAL DIAGNOSES: 1. Infection of the left foot toe following amputation of the left middle toe. 2. Chronic obstructive pulmonary disease. 3. History of alcoholism. 4. History of heart disease. OPERATIONS: None. CONSULTATIONS: Vascular surgery. He is improved. MMODL / IJN: [id number] /
== END 2021-07-14 13:54 | disposition home or self-care (01) ==
LOC: EC 16:26 → 6NMEDSUR 20:18
PROVIDERS: ADMIT Family Medicine; ATTEND Family Medicine
DX: T87.44 Infection of amputation stump, left lower extremity (principal); L03.032 Cellulitis of left toe; L03.116 Cellulitis of left lower limb; Y83.5 Amputation of limb(s) as the cause of abnormal reaction of the patient, or of later complication, without mention of misadventure at the time of the procedure; E11.628 Type 2 diabetes mellitus with other skin complications; E11.42 Type 2 diabetes mellitus with diabetic polyneuropathy; R07.9 Chest pain, unspecified; F17.210 Nicotine dependence, cigarettes, uncomplicated; I11.0 Hypertensive heart disease with heart failure; I50.9 Heart failure, unspecified; I25.10 Atherosclerotic heart disease of native coronary artery without angina pectoris; J44.9 Chronic obstructive pulmonary disease, unspecified; I48.91 Unspecified atrial fibrillation; F12.90 Cannabis use, unspecified, uncomplicated; M94.0 Chondrocostal junction syndrome [Tietze]; G89.29 Other chronic pain; M54.41 Lumbago with sciatica, right side; M54.42 Lumbago with sciatica, left side; F10.21 Alcohol dependence, in remission; F31.9 Bipolar disorder, unspecified; F20.9 Schizophrenia, unspecified; F41.9 Anxiety disorder, unspecified; Z79.82 Long term (current) use of aspirin; Z79.899 Other long term (current) drug therapy; Z88.6 Allergy status to analgesic agent; Z88.8 Allergy status to other drugs, medicaments and biological substances; E78.5 Hyperlipidemia, unspecified; Z87.442 Personal history of urinary calculi; Z91.51 Personal history of suicidal behavior; Z87.01 Personal history of pneumonia (recurrent); Z86.14 Personal history of Methicillin resistant Staphylococcus aureus infection; Z87.2 Personal history of diseases of the skin and subcutaneous tissue; Z86.69 Personal history of other diseases of the nervous system and sense organs; Z82.49 Family history of ischemic heart disease and other diseases of the circulatory system; Z81.1 Family history of alcohol abuse and dependence; Z82.5 Family history of asthma and other chronic lower respiratory diseases
CPT/HCPCS: 99285; 96361; 96366 ×3; 96367; 96365; 36415; 97161; 97165; 80053; 80048; 84484 ×2; 85025; 87040; 73630; 71046; G0378 ×4; J3370 ×2; J0690 ×2

== ENCOUNTER 2021-07-28 13:32 | Inpatient (IN) | payer OTHER ==
[2021-07-28] MEDS ORDERED: SODIUM CHLORIDE 0.9% 1,000 ML IV STA (14:25)
[2021-07-28] MEDS ORDERED: MORPHINE SULFATE 2 MG/ML SYRINGE IVP ONE (14:26)
[2021-07-28 14:54] LABS: Anisocytosis Slight; Basophils # (A) 0.1 k/uL (0-0.2); Basophils % (A) 1 %; Eosinophils # (A) 0.2 k/uL (0-0.7); Eosinophils % (A) 3 %; HCT 44.7 % (39.0-53.0); HGB 14.7 gm/dL (13.0-17.5); Lymphocytes # (A) 1.2 k/uL (1.0-4.8); Lymphocytes % (A) 18 %; MCH 30.8 pg (25.0-35.0); MCHC 32.9 g/dL (31.0-37.0); MCV 93.5 fL (80.0-100.0); Mean Platelet Volume 8.3; Monocytes # (A) 0.5 k/uL (0-1.0); Monocytes % (A) 7 %; Neutrophils # (A) 4.5 k/uL (1.3-7.7); Neutrophils % (A) 68 %; Platelet Count 207 k/uL (150-450); RBC 4.78 m/uL (4.30-5.90); RDW 16.3 % (11.5-15.5); WBC 6.6 k/uL (3.8-10.6)
--- NOTE | 2021-07-28 14:56 | ED ---
General Adult HPI - General Source: patient, RN notes reviewed, old records reviewed Mode of arrival: wheelchair Limitations: no limitations <Loly Tanner - Last Filed: 07/28/21 15:20> <Jose Antonio Diana - Last Filed: 07/28/21 20:17> - General Chief complaint: Syncope Stated complaint: Male Time Seen by Provider: 07/28/21 14:13 - History of Present Illness Initial comments: Patient is a 51-year-old male who presents emergency department today after being evaluated by his primary care physician and sent for evaluation for enlarged scrotum as well as for multiple syncopal episodes this week. Patient reports that he had a syncopal episode on Saturday evening and reportedly woke up and when he did he hit his head on the edge of the bathtub. He states that he has history of chronic chest pain but denies any changes in chest pain or shortness of breath. He reports that he has no abdominal pain. He states that when he woke up on Saturday after he passed out he noticed he had a swollen scrotum. He does complain of dysuria. He denies vomiting. (Loly Tanner) - Related Data Home Medications Medication Instructions Recorded Confirmed Furosemide [Lasix] 40 mg PO DAILY 04/20/21 07/28/21 Aspirin EC [Ecotrin Low Dose] 81 mg PO DAILY 05/23/21 07/28/21 Nitroglycerin Sl Tabs [Nitrostat] 0.4 mg SL Q5M PRN 06/28/21 07/28/21 HYDROcodone/APAP 5-325MG [[place] 1 tab PO Q6H PRN 07/28/21 07/28/21 5-325] Metoprolol Succinate (ER) [Toprol 100 mg PO DAILY 07/28/21 07/28/21 Xl] lisinopriL 40 mg PO DAILY 07/28/21 07/28/21 Previous Rx's Medication Instructions Recorded Spironolactone [Aldactone] 25 mg PO DAILY #10 tab 07/06/21 Allergies Allergy/AdvReac Type Severity Reaction Status Date / Time ibuprofen [From Motrin] AdvReac Nausea & Verified 07/28/21 16:16 Vomiting simvastatin [From Zocor] AdvReac Dizziness Verified 07/28/21 16:16 Review of Systems ROS Other: All systems not noted in ROS Statement are negative. <Sandra Tannerily - Last Filed: 07/28/21 15:20> ROS Other: All systems not noted in ROS Statement are negative. <Jose Antonio Diana - Last Filed: 07/28/21 20:17> ROS Statement: Those systems with pertinent positive or pertinent negative responses have been documented in the HPI. Past Medical History Past Medical History: Atrial Fibrillation, COPD, Hyperlipidemia, Hypertension, P neumonia Additional Past Medical History / Comment(s): Other HX; Costochondritis, chronic pain, chronic low back pain with bilateral sciatica, neuropathy bilateral hands/feet, migraines, kidney stones, past partial small bowel obstruction. HTN the last 10 yrs Stopped taking meds 5 yrs ago. COPD due to tobacco use. [place]una use 3 -4 times a week - Smoke it History of Any Multi-Drug Resistant Organisms: None Reported, MRSA Date of last positivie culture/infection: 04/10/18 MDRO Source:: TOE Past Surgical History: Heart Catheterization, Orthopedic Surgery Additional Past Surgical History / Comment(s): 03/14/18 Cardiac cath-normal coronaries, L shoulder rotator cuff repair x2, cervical injection. Past Anesthesia/Blood Transfusion Reactions: No Reported Reaction Past Psychological History: Anxiety, Bipolar, Depression, Schizophrenia Smoking Status: Current every day smoker Past Alcohol Use History: None Reported Past Drug Use History: Marijuana, Prescription Drug Abuse - Past Family History Father Family Medical History: Myocardial Infarction (LA) Additional Family Medical History / Comment(s): mi at age 35, still living Mother Family Medical History: Myocardial Infarction (LA) Additional Family Medical History / Comment(s): Mother has had at least one LA- pt unsure at what age. He has not had much contact with his mother since he was 17 yrs old. <Sandra Tannerily - Last Filed: 07/28/21 15:20> General Exam Limitations: no limitations General appearance: alert, in no apparent distress Head exam: Present: atraumatic, normocephalic, normal inspection Eye exam: Present: normal appearance, PERRL, EOMI. Absent: scleral icterus, co njunctival injection, periorbital swelling ENT exam: Present: normal exam, mucous membranes moist Neck exam: Present: normal inspection. Absent: tenderness, meningismus, lymphadenopathy Respiratory exam: Present: normal lung sounds bilaterally. Absent: respiratory distress, wheezes, rales, rhonchi, stridor Cardiovascular Exam: Present: regular rate, normal rhythm, normal heart sounds. Absent: systolic murmur, diastolic murmur, rubs, gallop, clicks GI/Abdominal exam: Present: soft, normal bowel sounds. Absent: distended, tenderness, guarding, rebound, rigid exam: Present: testicular tenderness (bilateral ), scrotal swelling, vertical testicular lie. Absent: normal inspection Extremities exam: Present: normal inspection, full ROM, normal capillary refill. Absent: tenderness, pedal edema, joint swelling, calf tenderness Back exam: Present: normal inspection Neurological exam: Present: alert, oriented X3, CN II-XII intact Psychiatric exam: Present: normal affect, normal mood Skin exam: Present: warm, dry, intact, normal color. Absent: rash <Loly Tanner - Last Filed: 07/28/21 15:20> - General Exam Comments Initial Comments: 51-year-old male. Alert and oriented. No distress. (Loly Tanner) Course Vital Signs 07/28/21 07/28/21 07/28/21 13:34 14:53 15:38 Temperature 97.0 F L Pulse Rate 115 H 99 Respiratory 18 16 18 Rate Blood Pressure 169/116 155/89 O2 Sat by Pulse 100 99 Oximetry 07/28/21 16:47 Temperature Pulse Rate 97 Respiratory 18 Rate Blood Pressure 165/100 O2 Sat by Pulse 99 Oximetry EKG Findings - EKG Comments: EKG Findings:: EKG shows sinus tachycardia left atrial enlargement and nonspecific T wave a probably. Abnormal EKG. Ventricular rate of 10 5 bpm.. Intervals 189 ms. QRS duration is 94 ms. QT QTc is 3 9369/4:30 milliseconds. <Loly Tanner - Last Filed: 07/28/21 15:20> - EKG Results: EKG: interpreted by ERMD, sinus rhythm (Sinus tachycardia rate 105. Interval 189 QRS duration 94 QT since QTC of 369/4:30 left atrial enlargement nonspecific T-wave configuration) <Jose Antonio Diana - Last Filed: 07/28/21 20:17> Medical Decision Making - Lab Data Result diagrams: 07/28/21 14:41 <Loly Tanner - Last Filed: 07/28/21 15:20> - Lab Data Result diagrams: 07/28/21 14:41 07/28/21 15:12 <Jose Antonio Diana - Last Filed: 07/28/21 20:17> - Medical Decision Making Patient was endorsed me pending evaluation patient has had no further syncopal episodes scrotal ultrasound shows evidence of bilateral varicoceles and hydroceles. Patient was sent over from his family practice office for evaluation of the above. Patient will be admitted case discussed with Dr. Bianchi service. Patient does demonstrate elevated blood pressure he is on medications he's is his normal systolic blood pressure is 140-150. (Jose Antonio Diana) - Lab Data Lab Results 07/28/21 07/28/21 07/28/21 Range/Units 14:41 14:41 15:12 WBC 6.6 (3.8-10.6) k/uL RBC 4.78 (4.30-5.90) m/uL Hgb 14.7 (13.0-17.5) gm/dL Hct 44.7 (39.0-53.0) % MCV 93.5 (80.0-100.0) fL MCH 30.8 (25.0-35.0) pg MCHC 32.9 (31.0-37.0) g/dL RDW 16.3 H (11.5-15.5) % Plt Count 207 (150-450) k/uL MPV 8.3 Neutrophils % 68 % Lymphocytes % 18 % Monocytes % 7 % Eosinophils % 3 % Basophils % 1 % Neutrophils # 4.5 (1.3-7.7) k/uL Lymphocytes # 1.2 (1.0-4.8) k/uL Monocytes # 0.5 (0-1.0) k/uL Eosinophils # 0.2 (0-0.7) k/uL Basophils # 0.1 (0-0.2) k/uL Anisocytosis Slight PT 12.5 H (9.0-12.0) sec INR 1.2 H (<1.2) APTT 24.0 (22.0-30.0) sec D-Dimer 0.58 (<0.60) mg/L FEU Sodium 133 L (137-145) mmol/L Potassium 3.6 (3.5-5.1) mmol/L Chloride 106 (98-107) mmol/L Carbon Dioxide 23 (22-30) mmol/L Anion Gap 4 mmol/L BUN 11 (9-20) mg/dL Creatinine 0.78 (0.66-1.25) mg/dL Est GFR (CKD-EPI)AfAm >90 (>60 ml/min/1.73 sqM) Est GFR (CKD-EPI)NonAf >90 (>60 ml/min/1.73 sqM) Glucose 86 (74-99) mg/dL Calcium 8.6 (8.4-10.2) mg/dL Magnesium 1.7 (1.6-2.3) mg/dL Total Bilirubin 1.8 H (0.2-1.3) mg/dL AST 32 (17-59) U/L ALT 17 (4-49) U/L Alkaline Phosphatase 101 (38-126) U/L Troponin I (0.000-0.034) ng/mL Total Protein 6.9 (6.3-8.2) g/dL Albumin 3.5 (3.5-5.0) g/dL 07/28/21 Range/Units 15:12 WBC (3.8-10.6) k/uL RBC (4.30-5.90) m/uL Hgb (13.0-17.5) gm/dL Hct (39.0-53.0) % MCV (80.0-100.0) fL MCH (25.0-35.0) pg MCHC (31.0-37.0) g/dL RDW (11.5-15.5) % Plt Count (150-450) k/uL MPV Neutrophils % % Lymphocytes % % Monocytes % % Eosinophils % % Basophils % % Neutrophils # (1.3-7.7) k/uL Lymphocytes # (1.0-4.8) k/uL Monocytes # (0-1.0) k/uL Eosinophils # (0-0.7) k/uL Basophils # (0-0.2) k/uL Anisocytosis PT (9.0-12.0) sec INR (<1.2) APTT (22.0-30.0) sec D-Dimer (<0.60) mg/L FEU Sodium (137-145) mmol/L Potassium (3.5-5.1) mmol/L Chloride (98-107) mmol/L Carbon Dioxide (22-30) mmol/L Anion Gap mmol/L BUN (9-20) mg/dL Creatinine (0.66-1.25) mg/dL Est GFR (CKD-EPI)AfAm (>60 ml/min/1.73 sqM) Est GFR (CKD-EPI)NonAf (>60 ml/min/1.73 sqM) Glucose (74-99) mg/dL Calcium (8.4-10.2) mg/dL Magnesium (1.6-2.3) mg/dL Total Bilirubin (0.2-1.3) mg/dL AST (17-59) U/L ALT (4-49) U/L Alkaline Phosphatase (38-126) U/L Troponin I <0.012 (0.000-0.034) ng/mL Total Protein (6.3-8.2) g/dL Albumin (3.5-5.0) g/dL Disposition <Loly Tanner - Last Filed: 07/28/21 15:20> <Jose Antonio Diana - Last Filed: 07/28/21 20:17> Clinical Impression: Syncope and collapse, Scrotal pain, Hydrocele in adult, Varicocele Disposition: ADMITTED IP TO THIS HOSP Condition: Fair Referrals: Clif Glasgow MD [Primary Care Provider] - 1-2 days
[2021-07-28 15:07] LABS: INR 1.2 (<1.2); Prothrombin Time 12.5 sec (9.0-12.0)
--- NOTE | 2021-07-28 15:09 | XR ---
EXAMINATION TYPE: XR chest 2V DATE OF EXAM: 07/28/2021 COMPARISON: NONE TECHNIQUE: PA and lateral views submitted. HISTORY: Syncope FINDINGS: Heart is enlarged and there is a coarsened interstitium. Atherosclerotic change aorta. Arthropathy of the shoulders with widening of left AC joint which is chronic correlate chronic reabsorption. No pne umothorax. Hypertrophic change of the spine. IMPRESSION: 1. Cardiomegaly. Chronic appearing coarsened interstitium correlate for chronic interstitial lung dis ease. Chronic venous congestion not excluded.
[2021-07-28 15:39] LABS: ALT 17 U/L (4-49); AST 32 U/L (17-59); African American GFR (CKD) >90 (>60 ml/min/1.73 sqM); Albumin 3.5 g/dL (3.5-5.0); Alkaline Phosphatase 101 U/L (38-126); Anion Gap 4 mmol/L; Blood Urea Nitrogen 11 mg/dL (9-20); Calcium 8.6 mg/dL (8.4-10.2); Carbon Dioxide 23 mmol/L (22-30); Chloride 106 mmol/L (98-107); Glucose 86 mg/dL (74-99); Magnesium 1.7 mg/dL (1.6-2.3); Non-African American GFR(CKD) >90 (>60 ml/min/1.73 sqM); Potassium 3.6 mmol/L (3.5-5.1); Sodium 133 mmol/L (137-145); Total Bilirubin 1.8 mg/dL (0.2-1.3); Total Protein 6.9 g/dL (6.3-8.2)
--- NOTE | 2021-07-28 16:21 | US ---
EXAMINATION TYPE: US scrotum with doppler. Grayscale and color Doppler Duplex imaging performed of suleman kidd scrotum. DATE OF EXAM: 07/28/2021 COMPARISON: US CLINICAL HISTORY: testicular swelling . Swelling. EXAM MEASUREMENTS: TESTICLES: Right Testicle: 4.3 x 3.7 x 2.6 cm. *2 hyperechoic areas seen within, larger area measures 0.09 x 0.1 x 0.06 cm likely representing micro liths. Left Testicle: 4.8 x 2.8 x 2.5 cm EPIDIDYMIS HEAD: Right Epididymis: 0.8 x 1.0 x 1.1 cm Left Epididymis: 0.6 x 0.4 x 1.5 cm. Anechoic area seen: 0.3 x 0.4 x 0.4 cm consistent with cyst. Doppler performed to assess for testicular vascularity; bilateral color flow and waveforms are seen. Presence of hydroceles: On the right anechoic area seen: 3.4 x 1.0 x 1.0 cm. Fluid with internal echo es seen on the left: 2.7 x 2.3 x 1.0 cm. Presence of varicoceles: Prominent vessels seen on the right measuring 3.7 mm and on the left measur ing 3.9 mm. IMPRESSION: 1. Bilateral varicocele 2. Bilateral hydroceles, simple right on slightly complex left.. 3. Appropriate color flow and spectral waveforms to the testes.
[2021-07-28] MEDS ORDERED: fentaNYL (PF) 50 MCG/ML 2 ML AMP IV STA ×2 (16:38→20:18)
[2021-07-28] MEDS ORDERED: NALOXONE 0.4 MG/ML 1 ML VIAL IV PRN (20:18)
[2021-07-28] MEDS ORDERED: ACETAMINOPHEN TAB 325 MG TAB PO PRN (20:18)
[2021-07-28] MEDS ORDERED: NITROGLYCERIN SL TABS 0.4 MG TAB SUBLINGUAL PRN (20:20)
[2021-07-28] MEDS: SODIUM CHLORIDE 0.9% 1,000 ML IV SCH (21:50)
[2021-07-28] MEDS: carvediloL 3.125 MG TAB PO SCH (21:56)
[2021-07-29] MEDS: HYDROmorphone 1 MG/ML 1 ML SYRINGE IVP PRN ×4 (01:08→20:43)
[2021-07-29 01:40] LABS: Appearance,Urine Clear (Clear); Bilirubin,Urine Negative (Negative); Blood,Urine Trace (Negative); Color,Urine Yellow; Glucose,Urine (UA) Negative (Negative); Ketones,Urine Negative (Negative); Leukocyte Esterase,Urine Negative (Negative); Mucus,Urine Rare /hpf; Nitrite,Urine Negative (Negative); Protein,Urine 1+ (Negative); RBC,Urine 2 /hpf (0-5); Specific Gravity,Urine 1.018 (1.001-1.035); WBC,Urine 1 /hpf (0-5)
[2021-07-29] MEDS: SPIRONOLACTONE 25 MG TAB PO SCH (08:10)
[2021-07-29] MEDS: ASPIRIN 81 MG PO SCH (08:10)
[2021-07-29] MEDS: lisinopriL 20 MG TAB PO SCH (08:10)
[2021-07-29] MEDS: FUROSEMIDE 40 MG TAB PO SCH (08:10)
[2021-07-29] MEDS: carvediloL 3.125 MG TAB PO SCH ×2 (08:10→17:21)
[2021-07-29] MEDS ORDERED: METOPROLOL SUCCINATE (ER) 100 MG TAB.ER.24H PO SCH (09:00)
--- NOTE | 2021-07-29 15:27 | HP ---
HISTORY AND PHYSICAL DATE OF SERVICE: 07/29/2021 CHIEF COMPLAINTS: Syncope and as well as bilateral scrotal swelling. HISTORY OF PRESENT ILLNESS: This 51-year-old gentleman with a past medical history of atrial fibrillation, COPD, hypertension, hyperlipidemia, being followed by Dr. Glasgow in the outpatient setting, was admitted with syncope. The patient apparently had syncope for a couple days. The patient was evaluated by primary physicians. Scrotum was enlarged. There were multiple syncopal episodes. The patient was directed to come to [facility] and is being admitted for further evaluation and treatment. There is no history of any fever, rigor or chills at this time. The patient had a scrotal ultrasound which showed bilateral varicoceles and bilateral hydroceles also noted. PAST MEDICAL HISTORY: History of atrial fibrillation, COPD. MEDICATIONS: Include Nitrostat, [place] and Aldactone. Doses reviewed. ALLERGIES: MOTRIN. ZOCOR. FAMILY HISTORY: History of myocardial infarction. SOCIAL HISTORY: History of smoking. REVIEW OF SYSTEMS: 14-point review of systems negative except as mentioned earlier. PHYSICAL EXAMINATION: Pulse is 90, blood pressure 141/14, respiration 18. HEENT: Conjunctivae normal. NECK: No JVD. CARDIOVASCULAR: S1, S2 normal. RESPIRATION: Breath sounds diminished in the bases. A few scattered rhonchi. ABDOMEN: Soft, nontender. LEGS: No edema. No swelling. NERVOUS SYSTEM: Higher functions as mentioned. No focal deficits. SKIN: No ulcers, rashes or bleeding. JOINTS: No active deforming arthropathy. Examination of the scrotum: Bilateral scrotal enlargement as well as some tenderness also present. Some erythema and some mild scrotal cellulitis also suspected. LABS: INR 1.2, sodium 133. ASSESSMENT: 1. Syncope for evaluation. Rule out cardiac arrhythmia or transient ischemic attack. 2. Bilateral scrotal swelling with varicocele, hydrocele and possible scrotal cellulitis. 3. Atrial fibrillation. 4. Chronic obstructive pulmonary disease. 5. Hypertension. 6. Hyperlipidemia. RECOMMENDATIONS AND DISCUSSION: In this 51-year-old gentleman who presented with multiple complex medical issues, we will monitor the patient closely. Symptomatic treatment. Otherwise, neurology has been consulted. I would also recommend Cardiology consultation. Empiric antibiotics. Resume the home medications and orthostatic vitals. Further recommendations to follow. Prognosis guarded. MMODL / IJN: [id number] /
--- NOTE | 2021-07-29 16:37 | MR ---
EXAMINATION TYPE: MR brain wo con DATE OF EXAM: 07/29/2021 COMPARISON: HISTORY: Syncope, head injury due to fall, evaluate for TIA. Multiplanar multiecho imaging of the brain without contrast. Ventricles have normal size. There is no mass effect or midline shift. There is no sign of intracrani al hemorrhage. Diffusion images show no evidence of an acute infarct. Brainstem is intact. Corpus nuha losum is intact. Sella turcica appears normal. There is on the T2 and FLAIR images some mild increased signal in a somewhat diffuse pattern in the p eriventricular white matter. There are some discrete small foci of increased signal at the cabrales-white matter junction measuring up to 4 mm in the left posterior frontal lobe and right parietal lobe. Tot al number is approximately 5. IMPRESSION: There are some white matter signal changes which could relate to microvascular ischemia or demyelinat ing disease. No evidence of cortical infarct.
[2021-07-29] MEDS: SODIUM CHLORIDE 0.9% 1,000 ML IV SCH ×3 (17:21→20:39)
[2021-07-29 23:28] LABS: Magnesium 1.8 mg/dL (1.6-2.3); Potassium 4.1 mmol/L (3.5-5.1)
[2021-07-30] MEDS: HYDROmorphone 1 MG/ML 1 ML SYRINGE IVP PRN ×4 (02:14→20:11)
--- NOTE | 2021-07-30 07:32 | P.CNNES ---
History of Present Illness Consult date: 07/29/21 Requesting physician: Jose Antonio Diana Reason for Consult: Syncopal episode History of Present Illness: Patient is a 51-year-old male came to the hospital yesterday at 1:32 PM. for evaluation of syncopal spell. Patient states 3 days ago on 07/26/2021 he blacked out in the bathroom and woke up in the tub. He does not remember the reason that he went to the bathroom, sit to the shower or just went to use the bathroom. His left eye feels tender and had a black eye because of the fall. He is edentulous, therefore could not bide the tongue. He does not remember if he lost control of urine. Patient states that about 4-5 days ago he was laying down in the bedroom, stood up and fell down. He does not remember how long was out for. No loss of control of urine at that time. Patient states that about couple weeks ago he woke up and everything was numb on the left side, including left side of the face arm and leg. The episode lasted for about 20 minutes. There was no slurred speech visual problem or weakness or paralysis with it. Patient states his both legs are swelling up. Vital signs on arrival blood pressure 169/116, pulse are 115 and temperature 97.0. Blood test shows normal CBC, normal PT/PTT, sodium [id number], CMP normal. Bilirubin slightly elevated 1.8. Troponin negative, UA negative. Ivan lebron's last hemoglobin A1c 4.7 on 04/26/2019. LDL was 65. EKG shows sinus tachycardia with heart rate of 105. Chest x-ray showed cardiomegaly. Chronic appearing coarse and to station correlate for chronic interstitial lung disease. Chronic venous congestion not excluded. Testicular ultrasound showed bilateral varicocele, bilateral hydrocele, simple right, slightly complex left. Patient's 2-D echo from 07/01/2021 showed normal left-ventricular size, moderate concentric LVH, severe global hypokinesis of left ventricle. Left ventricle systolic function is severely impaired with an EF between 20-25%. Right ventricle is severely enlarged, left atrium is moderately dilated. Right atrium is markedly enlarged. Moderate MR, severe TR, severe pulmonary hypertension. Trivial pericardial effusion. Patient has history of congestive heart failure, cardiomyopathy, nicotine dependence, history of major depression, methamphetamine use and opioid use. Patient states that he had history of a seizure about 4-5 years ago which was attributed to the use of Wellbutrin. Review of Systems As above in detail. Patient denies any problem with vision, hoarseness, sore throat, dysphagia. No double vision or loss of vision. Patient has severe peripheral edema. Patient complains of fatigue. Some numbness. All other 14 points of review of systems reviewed and unremarkable. Past Medical History Past Medical History: Atrial Fibrillation, COPD, Hyperlipidemia, Hypertension, Pneumonia Additional Past Medical History / Comment(s): Other HX; Costochondritis, chronic pain, chronic low back pain with bilateral sciatica, neuropathy bilateral hands/feet, migraines, kidney stones, past partial small bowel obstruction. HTN the last 10 yrs Stopped taking meds 5 yrs ago. COPD due to tobacco use. MArijuna use 3 -4 times a week - Smoke it History of Any Multi-Drug Resistant Organisms: None Reported, MRSA Date of last positivie culture/infection: 04/10/18 MDRO Source:: TOE Past Surgical History: Heart Catheterization, Orthopedic Surgery Additional Past Surgical History / Comment(s): 03/14/18 Cardiac cath-normal coronaries, L shoulder rotator cuff repair x2, cervical injection. Past Anesthesia/Blood Transfusion Reactions: No Reported Reaction Past Psychological History: Anxiety, Bipolar, Depression, Schizophrenia Additional Psychological History / Comment(s): Pt was on Mental Health 2 years a go at [facility] for suicidal ideation - Not seeing anyone currently Smoking Status: Current every day smoker Past Alcohol Use History: None Reported Additional Past Alcohol Use History / Comment(s): Started smoking at age 15- smoked 1 ppd but has cut down to one pack a day Past Drug Use History: Marijuana, Prescription Drug Abuse Additional Drug Use History / Comment(s): Pt smokes marijuana daily, and regular cigarrettes daily - Past Family History Father Family Medical History: Myocardial Infarction (SC) Additional Family Medical History / Comment(s): mi at age 35, still living Mother Family Medical History: Myocardial Infarction (SC) Additional Family Medical History / Comment(s): Mother has had at least one SC- pt unsure at what age. He has not had much contact with his mother since he was 17 yrs old. Medications and Allergies Home Medications Medication Instructions Recorded Confirmed Type Furosemide [Lasix] 40 mg PO DAILY 04/20/21 07/28/21 History Aspirin EC [Ecotrin Low Dose] 81 mg PO DAILY 05/23/21 07/28/21 History Nitroglycerin Sl Tabs [Nitrostat] 0.4 mg SL Q5M PRN 06/28/21 07/28/21 History Spironolactone [Aldactone] 25 mg PO DAILY #10 tab 07/06/21 07/28/21 Rx HYDROcodone/APAP 5-325MG [[place] 1 tab PO Q6H PRN 07/28/21 07/28/21 History 5-325] Metoprolol Succinate (ER) [Toprol 100 mg PO DAILY 07/28/21 07/28/21 History Xl] lisinopriL 40 mg PO DAILY 07/28/21 07/28/21 History Allergies Allergy/AdvReac Type Severity Reaction Status Date / Time ibuprofen [From Motrin] AdvReac Nausea & Verified 07/28/21 16:16 Vomiting simvastatin [From Zocor] AdvReac Dizziness Verified 07/28/21 16:16 Physical Examination - Vital Signs Vital Signs: Vital Signs Temp Pulse Pulse Resp BP BP Pulse Ox 07/29/21 07:00 97.7 F 98 18 148/114 98 07/29/21 02:00 101 H 18 07/29/21 01:02 97.8 F 101 H 18 141/92 97 07/28/21 21:27 98.1 F 105 H 18 155/122 98 07/28/21 20:41 103 H 24 151/98 100 07/28/21 16:47 97 18 165/100 99 07/28/21 15:38 99 18 155/89 99 07/28/21 14:53 16 07/28/21 13:34 97.0 F L 115 H 18 169/116 100 Intake and Output 07/28/21 07/29/21 07/29/21 22:59 06:59 14:59 Intake Total 250 120 Output Total 700 Balance -450 120 Intake: Oral 250 120 Output: Urine 700 Other: Voiding Method Urinal # Voids 0 Weight 104.326 kg Patient is a middle aged male, in no acute distress. Patient is alert awake oriented to time place and person. Speech and language functions are normal. No aphasia or dysarthria. Attention, concentration and fund of knowledge is adequate. On cranial examination, pupils are equal, round and reacting to light, visual narayanan are full on confrontation, extraocular muscles are intact with no nystagmus. Face is symmetric, tongue protrudes to the midline. Palatal elevation and sensation normal, hearing and shoulder shrug normal, facial sensation normal. Shoulder shrug normal. On muscle strength testing, there is no pronator drift and the strength is normal in arms and legs distally and proximally, except hip flexion, which is 4+5-bilaterally. Deep tendon reflexes are trace to 1 in the upper limbs, 1 in the lower limbs and plantars downgoing. Sensory to touch is equal in the arms and face with no neglect on double s imultaneous stimulation. In the lower extremities sensory to touch is decreased in the left leg as compared to the right. Cerebellar function showed no ataxia for [id number] testing. No dysdiad ochokinesia. Tone and bulk of muscles normal. Gait normal. Romberg negative. On general examination, there is no carotid bruit or murmur, S1-S2 audible. Abdomen is soft nontender. No organomegaly, bowel sounds present. Chest is clear. Peripheral pulses are not clearly present. Patient has severe peripheral edema all the way up to the upper thighs. Results - Laboratory Findings CBC and BMP: 07/28/21 14:41 07/29/21 22:47 Abnormal Lab Findings: Abnormal Labs 07/28/21 07/28/21 07/28/21 14:26 14:41 14:41 RDW 16.3 H PT 12.5 H INR 1.2 H Sodium Total Bilirubin Urine Protein 1+ H Urine Blood Trace H Urine Mucus Rare H 07/28/21 15:12 RDW PT INR Sodium 133 L Total Bilirubin 1.8 H Urine Protein Urine Blood Urine Mucus Assessment and Plan Assessment: * Syncopal spells 2 * Episode of transient numbness of the left side of the body (2 weeks ago), that lasted for 20 minutes. Rule out TIA. * CHF * Previous history of atrial fibrillation, currently not on anticoagulation * Tobacco use * Hypertension * THC use. Plan: * Patient has mentioned about an episode of numbness of entire left side of the body, that lasted for 20 minutes, raising suspicion for TIA. Patient has reported history of atrial fibrillation, but currently not on anticoagulation. We will consult cardiology to evaluate for history of A. fib, CHF, therefore ?need for anticoagulation. * We will check EEG to rule out epileptiform activity. * Carotid Doppler. * Check orthostatics. * Continue telemetry monitoring. * Optimize control of blood pressure. * Hemoglobin A1c * Patient's lipid panel from 04/21/2021 showed cholesterol 101, LDL 65, HDL 30 and triglycerides 46. Lipids are well controlled. * Neurology will follow. Thank you for the consult.
[2021-07-30] MEDS: FUROSEMIDE 40 MG TAB PO SCH (09:06)
[2021-07-30] MEDS: ASPIRIN 81 MG PO SCH (09:06)
[2021-07-30] MEDS: lisinopriL 20 MG TAB PO SCH (09:06)
[2021-07-30] MEDS: SPIRONOLACTONE 25 MG TAB PO SCH (09:07)
--- NOTE | 2021-07-30 09:17 | US ---
EXAMINATION TYPE: US carotid duplex BILAT DATE OF EXAM: 07/30/2021 COMPARISON: NONE CLINICAL HISTORY: syncope. Exam done portable EXAM MEASUREMENTS: RIGHT: Peak Systolic Velocity (PSV) cm/sec ----- Right CCA: 56.2 ----- Right ICA: 43.9 ----- Right ECA: 29.8 ICA/CCA ratio: 0.8 RIGHT: End Diastole cm/sec ----- Right CCA: 14.1 ----- Right ICA: 16.3 ----- Right ECA: 6.6 LEFT: Peak Systolic Velocity (PSV) cm/sec ----- Left CCA: 53.3 ----- Left ICA: 31.5 ----- Left ECA: 36.9 ICA/CCA ratio: 0.6 LEFT: End Diastole cm/sec ----- Left CCA: 15.3 ----- Left ICA: 17.2 ----- Left ECA: 9.8 VERTEBRALS (direction of flow): Right Vertebral: Antegrade Left Vertebral: Antegrade Rhythm: Normal No significant stenosis IMPRESSION: 1. No significant flow-limiting stenosis. Criteria for Assigning % of Stenosis / Diameter reduction (Estimation based on the indirect measurements of the internal carotid artery velocities (ICA PSV). 1. Normal (no stenosis)=ICA PSV < 125 cm/s: ratio < 2.0: ICA EDV<40 cm/s. 2. Less than 50% stenosis=ICA PSV < 125 cm/s: ratio < 2.0: ICA EDV<40 cm/s. 3. 50 to 69% stenosis=ICA PSV of 125 to 230 cm/s: ration 2.0 ? 4.0: ICA EDV 40-100 cm/s. 4. Greater than 70% stenosis to near occlusion= ICA PSV > 230 cm/s: ratio > 4.0: ICA EDV > 100 cm/s. 5. Near occlusion= ICA PSV velocities may be low or undetectable: variable ratio and ICA EDV. 6. Total occlusion=unable to detect flow.
[2021-07-30] MEDS: HYDROcodone/APAP 5-325MG 1 EACH TAB PO PRN (09:47)
[2021-07-30] MEDS: carvediloL 6.25 MG TAB PO SCH ×2 (09:48→17:00)
--- NOTE | 2021-07-30 10:42 | P.CRDCN ---
History of Present Illness Consult date: 07/30/21 Requesting physician: Cristy Bianchi Reason for Consult (text): Possible TIA, hx afib, syncope History of present illness: This a 51-year-old gentleman with history of nonischemic cardiomyopathy, illicit drug use, hypertension, noncompliance, chronic systolic heart failure and paroxysmal atrial fibrillation, he is not currently anticoagulated has a chads vasc score of 1 in the past but due to question of TIA would be calculated at 2, current every day smoker. He follows in the office with Dr. Burleson but was last seen in 2019. Most recent echocardiogram was done last month which showed an ejection fraction between 20-25% with moderate MR, severe TR and severe pulmonary hypertension. Presented to the emergency department at the advice of his primary care physician. He has been complaining of some scrotal edema and pain. Also complaining of 2 syncopal episodes over the last couple of weeks and waking up a couple weeks ago with left-sided numbness that lasted about 20 minutes. He is being followed by neurology for workup in that regard. Unfortunately he does not clearly recall the syncopal episodes he does not remember having any symptoms prior to, is not sure how long he was out for. He believes both times he was getting up to go to the bathroom. He does complain of chronic chest discomfort. Cardiac catheterization done in March showed normal coronary arteries. He does have a history of methamphetamine abuse but denies any current use he does smoke marijuana daily. He complains of orthopnea and lower extremity edema despite unchanged for the last 6 months. He verbalizes that he's been taking his medications but his blood pressures elevated and he's had issues with noncompliance in the past. Chest x-ray on admission showed cardiomegaly, chronic appearing coarsened interstitium co rrelate for chronic interstitial lung disease, chronic venous congestion not excluded. Scrotal ultrasound showed bilateral varicocele, bilateral hydrocele. EKG on admission showed sinus tachycardia with nonspecific ST-T wave abnormalities unchanged from previous. MRI of the brain showed some white matter signal changes which could correlate to microvascular ischemia or demyelinating disease, no evidence of cortical infarct. He underwent carotid duplex study this morning and the results are pending. Blood pressure remains elevated. He is afebrile. Troponins have been negative 3. D-dimer was normal. Renal function is normal. Past Medical History Past Medical History: Atrial Fibrillation, COPD, Hyperlipidemia, Hypertension, Pneumonia Additional Past Medical History / Comment(s): Other HX; Costochondritis, chronic pain, chronic low back pain with bilateral sciatica, neuropathy bilateral hands/feet, migraines, kidney stones, past partial small bowel obstruction. HTN the last 10 yrs Stopped taking meds 5 yrs ago. COPD due to tobacco use. MArijuna use 3 -4 times a week - Smoke it History of Any Multi-Drug Resistant Organisms: None Reported, MRSA Date of last positivie culture/infection: 04/10/18 MDRO Source:: TOE Past Surgical History: Heart Catheterization, Orthopedic Surgery Additional Past Surgical History / Comment(s): 03/14/18 Cardiac cath-normal coronaries, L shoulder rotator cuff repair x2, cervical injection. Past Anesthesia/Blood Transfusion Reactions: No Reported Reaction Past Psychological History: Anxiety, Bipolar, Depression, Schizophrenia Additional Psychological History / Comment(s): Pt was on Mental Health 2 years ago at [facility] for suicidal ideation - Not seeing anyone currently Smoking Status: Current every day smoker Past Alcohol Use History: None Reported Additional Past Alcohol Use History / Comment(s): Started smoking at age 15- smoked 1 ppd but has cut down to one pack a day Past Drug Use History: Marijuana, Prescription Drug Abuse Additional Drug Use History / Comment(s): Pt smokes marijuana daily, and regular cigarrettes daily - Past Family History Father Family Medical History: Myocardial Infarction (SD) Additional Family Medical History / Comment(s): mi at age 35, still living Mother Family Medical History: Myocardial Infarction (SD) Additional Family Medical History / Comment(s): Mother has had at least one SD- pt unsure at what age. He has not had much contact with his mother since he was 17 yrs old. Medications and Allergies Home Medications Medication Instructions Recorded Confirmed Type Furosemide [Lasix] 40 mg PO DAILY 04/20/21 07/28/21 History Aspirin EC [Ecotrin Low Dose] 81 mg PO DAILY 05/23/21 07/28/21 History Nitroglycerin Sl Tabs [Nitrostat] 0.4 mg SL Q5M PRN 06/28/21 07/28/21 History Spironolactone [Aldactone] 25 mg PO DAILY #10 tab 07/06/21 07/28/21 Rx HYDROcodone/APAP 5-325MG [[place] 1 tab PO Q6H PRN 07/28/21 07/28/21 History 5-325] Metoprolol Succinate (ER) [Toprol 100 mg PO DAILY 07/28/21 07/28/21 History Xl] lisinopriL 40 mg PO DAILY 07/28/21 07/28/21 History Allergies Allergy/AdvReac Type Severity Reaction Status Date / Time ibuprofen [From Motrin] AdvReac Nausea & Verified 07/28/21 16:16 Vomiting simvastatin [From Zocor] AdvReac Dizziness Verified 07/28/21 16:16 Physical Exam Vitals: Vital Signs Temp Pulse Resp BP Pulse Ox 07/30/21 07:00 97.5 F L 85 18 148/111 100 07/30/21 02:28 82 18 07/30/21 02:10 97.4 F L 96 19 153/114 96 07/29/21 20:36 82 18 07/29/21 19:51 97.9 F 90 15 142/93 100 07/29/21 14:00 82 18 07/29/21 13:13 98.1 F 82 18 124/90 100 Intake and Output 07/29/21 07/30/21 07/30/21 22:59 06:59 14:59 Output Total 1 300 Balance -1 -300 Output: Urine 1 300 Other: Voiding Method Urinal Urinal # Voids 1 2 PHYSICAL EXAMINATION: This is a 51-year-old male in no apparent distress at the time of my examination. VITAL SIGNS: Blood pressure 148/111, heart rate 85, respirations 18, temp 97.5F. Patient is 100 % on room air. HEENT: Head is atraumatic, normocephalic. Pupils are equal, round. Sclerae anicteric. Conjunctivae are clear. Mucous membranes of the mouth are moist. Neck is supple. There is no elevated jugular venous pressure. No carotid bruit is heard. CHEST EXAMINATION: Lungs reveal diminished air entry bilaterally. No wheezes rales or rhonchi. Respirations even and nonlabored. HEART EXAMINATION: Heart regular, positive S1 and S2. No S3. No S4. With a systolic murmur at the apex. ABDOMEN: Soft, nontender. Bowel sounds are heard. No organomegaly noted. EXTREMITIES: 2+ peripheral pulses with evidence of mild to moderate peripheral edema and no calf tenderness noted. NEUROLOGIC EXAMINATION: Patient is awake, alert and oriented x3. Results 07/28/21 14:41 07/29/21 22:47 Comprehensive Metabolic Panel 07/29/21 Range/Units 22:47 Sodium 136 L (137-145) mmol/L Potassium 4.1 (3.5-5.1) mmol/L Chloride 105 (98-107) mmol/L Carbon Dioxide 20 L (22-30) mmol/L Current Medications Generic Name Dose Route Start Last Admin Trade Name Freq PRN Reason Stop Dose Admin Acetaminophen 650 mg 07/28/21 20:18 Acetaminophen Tab 325 Mg Tab PO Q6HR PRN Mild Pain or Fever > 100.5 Hydrocodone Bitart/Acetaminophen 1 each 07/28/21 20:20 Hydrocodone/Apap 5-325mg 1 Each Tab PO Q6H PRN MODERATE Pain Aspirin 81 mg 07/29/21 09:00 07/29/21 08:10 Aspirin 81 Mg PO 81 mg DAILY GILES Administration Carvedilol 6.25 mg 07/30/21 17:30 Carvedilol 6.25 Mg Tab PO BID-W/MEALS GILES Furosemide 40 mg 07/29/21 09:00 07/29/21 08:10 Furosemide 40 Mg Tab PO 40 mg DAILY GILES Administration Hydromorphone HCl 1 mg 07/28/21 20:18 07/30/21 02:14 Hydromorphone 1 Mg/Ml 1 Ml Syringe IVP 1 mg Q3HR PRN Administration Severe Pain Sodium Chloride 1,000 mls @ 75 mls/hr 07/28/21 20:30 07/29/21 20:39 Saline 0.9% IV 75 mls/hr .[id number] GILES Administration Cefazolin Sodium 2 gm/ Sodium 50 mls @ 100 mls/hr 07/29/21 16:00 07/30/21 01:47 Chloride IVPB 100 mls/hr Q8HR GILES Administration Protocol Lisinopril 40 mg 07/29/21 09:00 07/29/21 08:10 Lisinopril 20 Mg Tab PO 40 mg DAILY GILES Administration Naloxone HCl 0.2 mg 07/28/21 20:18 Naloxone 0.4 Mg/Ml 1 Ml Vial IV Q2M PRN Opioid Reversal Nitroglycerin 0.4 mg 07/28/21 20:20 Nitroglycerin Sl Tabs 0.4 Mg Tab SUBLINGUAL Q5M PRN Chest Pain Spironolactone 25 mg 07/29/21 09:00 07/29/21 08:10 Spironolactone 25 Mg Tab PO 25 mg DAILY GILES Administration Intake and Output 07/29/21 07/30/21 07/30/21 22:59 06:59 14:59 Output Total 1 300 Balance -1 -300 Output: Urine 1 300 Other: Voiding Method Urinal Urinal # Voids 1 2 07/28/21 14:41 07/29/21 22:47 Assessment and Plan Assessment: #1 syncope 2, details are unclear #2 nonischemic cardiomyopathy #3 scrotal swelling and pain #4 questionable TIA 2 weeks ago, neurology following #5 hypertension, uncontrolled #6 paroxysmal atrial fibrillation #7 noncompliance Plan: From cardiology's perspective will increase the carvedilol to 6.25 mg by mouth twice a day. We will add Xarelto. He will require close follow-up and further evaluation for ICD. Syncope could be related to underlying ventricular arrhythmias. Monitor on telemetry. We'll continue to follow the patient provide further recommendations accordingly. [facility] [employer] note has been reviewed, I agree with a documented findings and plan of care. Patient was seen and examined.
[2021-07-30 11:53] LABS: Basophils # (A) 0.09 X 10*3/uL (0.00-0.10); Basophils % (A) 1.4 %; Eosinophils # (A) 0.26 X 10*3/uL (0.04-0.35); HCT 45.6 % (39.6-50.0); HGB 14.3 g/dL (13.0-17.0); Immature Grans, Automated 0.2 %; Lymphocytes # (A) 1.19 X 10*3/uL (0.90-5.00); Lymphocytes % (A) 18.5 %; MCH 29.3 pg (27.0-32.0); MCHC 31.4 g/dL (32.0-37.0); MCV 93.4 fL (80.0-97.0); Mean Platelet Volume 11.4 fL (9.5-12.2); Monocytes # (A) 0.64 X 10*3/uL (0.20-1.00); Monocytes % (A) 9.9 %; NRBC Per 100 WBC 0 /100 WBCS (0.0-0.0); Neutrophils # (A) 4.25 X 10*3/uL (1.80-7.70); Platelet Count 201 X 10*3/uL (140-440); RBC 4.88 X 10*6/uL (4.40-5.60); RDW 16.3 % (11.5-14.5); WBC 6.44 X 10*3/uL (4.50-10.00)
[2021-07-30 11:59] LABS: Anion Gap 13.8 mmol/L (10.00-18.00); BUN/Creat Ratio 15.1 Ratio (12.00-20.00); Blood Urea Nitrogen 15.1 mg/dL (9.0-27.0); Calcium 8.8 mg/dL (8.7-10.3); Carbon Dioxide 18.2 mmol/L (20.0-27.5); Potassium 4.3 mmol/L (3.5-5.5)
[2021-07-30] MEDS ORDERED: hydrALAZINE HCL 20 MG/ML 1 ML VIAL IVP PRN (13:11)
[2021-07-30] MEDS ORDERED: LORazepam 1 MG TAB PO PRN (13:12)
[2021-07-30] MEDS: hydrALAZINE HCL 50 MG TAB PO SCH ×3 (13:25→20:05)
[2021-07-30] MEDS: SODIUM CHLORIDE 0.9% 1,000 ML IV SCH (13:25)
--- NOTE | 2021-07-30 16:56 | PN ---
PROGRESS NOTE DATE OF SERVICE: 07/30/2021 This 51-year-old gentleman admitted with syncope also apparently had scrotum and passing out. The patient was evaluated by Neurology as well as Cardiology. The MRI of the brain showed no significant issues except some white matter changes. No chest pain. No palpitations. PHYSICAL EXAMINATION: Pulse 86, blood pressure 153/113, respirations 20, temperature 97.5. HEENT: Conjunctivae normal. NECK: No jugular venous distention. CARDIOVASCULAR: S1, S2 muffled. RESPIRATION: Breath sounds diminished at the bases. No rhonchi. No crackles. ABDOMEN: Soft, nontender. NERVOUS SYSTEM: No focal deficit. LABS: Noted. ASSESSMENT: 1. Syncope for evaluation. Rule out cardiac arrhythmia, TIA. 2. Bilateral scrotal swelling with varicocele, hydrocele and possible scrotal cellulitis. 3. Atrial fibrillation. 4. Hypertension. 5. Chronic obstructive pulmonary disease. 6. Hyperlipidemia. RECOMMENDATIONS AND DISCUSSION: I recommend to continue current medications, continue with the monitoring, symptomatic treatment. Will adjust the hypertensive medications. Closely follow. Add hydralazine to the current regimen. See orders for further details. MMODL / IJN: [id number] / MTDD
[2021-07-30] MEDS: RIVAROXABAN 20 MG TAB PO SCH (16:59)
--- NOTE | 2021-07-30 23:17 | P.PN ---
Subjective Progress Note Date: 07/30/21 Patient was seen for a follow-up. Offers no new complaints. Patient was in the bathroom, came out, and appeared steady walking. Objective - Vital Signs Vital signs: Vital Signs Temp 97.7 F 07/30/21 19:26 Pulse 75 07/30/21 19:26 Resp 16 07/30/21 19:26 BP 153/112 07/30/21 19:26 Pulse Ox 97 07/30/21 19:26 Intake & Output 07/30/21 07/30/21 07/31/21 06:59 18:59 06:59 Intake Total 360 Output Total 1 975 250 Balance -1 -116 -458 Intake: Oral 360 Output: Urine 1 975 250 Other: Voiding Method Urinal # Voids 2 1 1 - Exam Essentially unchanged. Peripheral edema has improved. - Labs CBC & Chem 7: 07/30/21 06:15 07/30/21 06:15 Labs: Abnormal Lab Results - Last 24 Hours (Table) 07/29/21 07/30/21 07/30/21 Range/Units 22:47 06:15 06:15 MCHC 31.4 L (32.0-37.0) g/dL RDW 16.3 H (11.5-14.5) % Sodium 136 L (137-145) mmol/L Carbon Dioxide 20 L 18.2 L (22-30) mmol/L Assessment and Plan Assessment: * Syncopal spells 2 * Episode of transient numbness of the left side of the body (2 weeks ago), that lasted for 20 minutes. Rule out TIA. * CHF * Previous history of atrial fibrillation, currently not on anticoagulation * Tobacco use * Hypertension * THC use. Plan: * Patient has mentioned about an episode of numbness of entire left side of the body, that lasted for 20 minutes, raising suspicion for TIA. Patient has reported history of atrial fibrillation, but currently not on anticoagulation. Cardiology input appreciated. Patient started on Xarelto. * EEG pending, to rule out epileptiform activity. * Carotid Doppler revealed no significant stenosis in either ICA. Antegrade flow in both vertebral arteries. * Orthostatics revealed supine blood pressure 153/113, pulse rate 86, sitting 146/118 pulse of 97. Standing 144/123, pulse rate 96. Negative orthostatics. * Continue telemetry monitoring. * Optimize control of blood pressure. * Hemoglobin A1c 5.9 * Patient's lipid panel from 04/21/2021 showed cholesterol 101, LDL 65, HDL 30 and triglycerides 46. Lipids are well controlled. * Neurologically clear, if EEG comes back normal. * Dr. Herber Childs will be available for any neurological concerns from the morning.
[2021-07-31] MEDS: SODIUM CHLORIDE 0.9% 1,000 ML IV SCH (00:06)
[2021-07-31] MEDS: HYDROmorphone 1 MG/ML 1 ML SYRINGE IVP PRN ×6 (02:37→22:44)
[2021-07-31] MEDS: hydrALAZINE HCL 50 MG TAB PO SCH ×3 (07:39→21:08)
[2021-07-31] MEDS: ASPIRIN 81 MG PO SCH (07:39)
[2021-07-31] MEDS: FUROSEMIDE 40 MG TAB PO SCH (07:39)
[2021-07-31] MEDS: SPIRONOLACTONE 25 MG TAB PO SCH (07:39)
[2021-07-31] MEDS: carvediloL 6.25 MG TAB PO SCH ×2 (07:39→16:33)
[2021-07-31] MEDS: lisinopriL 20 MG TAB PO SCH (07:39)
[2021-07-31 08:41] LABS: Basophils # (A) 0.06 X 10*3/uL (0.00-0.10); Basophils % (A) 0.9 %; Eosinophils # (A) 0.28 X 10*3/uL (0.04-0.35); Eosinophils % (A) 4.2 %; HCT 46.7 % (39.6-50.0); HGB 14.6 g/dL (13.0-17.0); Immature Grans, Automated 0.3 %; Lymphocytes # (A) 1.15 X 10*3/uL (0.90-5.00); Lymphocytes % (A) 17.2 %; MCH 29.9 pg (27.0-32.0); MCHC 31.3 g/dL (32.0-37.0); MCV 95.5 fL (80.0-97.0); Mean Platelet Volume 11.8 fL (9.5-12.2); Monocytes % (A) 10.5 %; NRBC Per 100 WBC 0 /100 WBCS (0.0-0.0); Neutrophils # (A) 4.48 X 10*3/uL (1.80-7.70); Neutrophils % (A) 66.9 %; Platelet Count 199 X 10*3/uL (140-440); RBC 4.89 X 10*6/uL (4.40-5.60); RDW 16.8 % (11.5-14.5); WBC 6.69 X 10*3/uL (4.50-10.00)
--- NOTE | 2021-07-31 09:25 | P.PN ---
Subjective This is a pleasant 51-year-old male past medical history significant for with nonischemic cardiomyopathy, illicit drug use, hypertension, n oncompliance chronic heart failure with reduced EF and paroxysmal atrial fibrillation. He was not currently anticoagulated has a chads vasc score of 1 in the past but due to question of TIA would be calculated at 2, current every day smoker, history of methamphetamine abuse but denies any current use he does smoke marijuana daily. He does not follow regularly in the office with Dr. Owens, last visit 2018. We have been asked to see in consultation for Syncope. Presented to the emergency department at the advice of his primary care physician. He presents after a syncopal episode at home. He was in the bathroom shower and loss consiousness, unclear downtime. He has had 2 syncopal episodes. He also has been having symptoms of LE edema, orthopnea, scrotal edema and pain, left-sided numbness that lasted about 20 minutes. On this admission, patient was started on Xarelto. DIAGNOSTICS Most recent echocardiogram was done June 2021 which showed an ejection fraction between 20-25% with moderate MR, severe TR and severe pulmonary hypertension. Cardiac catheterization done in March 2021 showed normal coronary arteries. Scrotal ultrasound showed bilateral varicocele, bilateral hydrocele. Chest x-ray on admission showed cardiomegaly, chronic appearing coarsened interstitium correlate for chronic interstitial lung disease, chronic venous congestion not excluded. MRI of the brain showed some white matter signal changes which could correlate to microvascular ischemia or demyelinating disease, no evidence of cortical infarct. 07/31/2021 Patient seen and examined at bedside, no acute distress. Continues to have symptoms of bilateral lower extremity edema, scrotal pain and swelling. He denies any lightheadedness, dizziness. No syncopal episodes noted. Telemetry reviewed patient is maintaining sinus mechanism with heart rate in the 70s90s episode of nonsustained ventricular tachycardia noted. Orthostatics have been negative. Labs on admission, CBC unremarkable, sodium 137, potassium 4.3, BUN 15, serum creatinine 1.0, magnesium 1.8, troponin negative 3, proBNP 1910. Todays labs pending. She's currently maintained on PO Lasix 40 mg daily, aspirin 81 mg daily, carvedilol 6.25 mg twice a day, hydralazine 50 mg 3 times a day, lisinopril 40 mg daily, Xarelto 20 mg daily, spironolactone 25 mg daily PHYSICAL EXAMINATION Vitals reviewed CONSTITUTIONAL: No apparent distress. Obese. HEENT:Neck Supple No JVD. CHEST EXAMINATION: Lungs are clear to auscultation. No chest wall tenderness is noted on palpation or with deep breathing. HEART EXAMINATION: Regular rate and rhythm. S1, S2 heard. Systolic ejection murmur at the base, no gallops or rub. ABDOMEN: Soft, nontender. EXTREMITIES: 3+ bilateral lower extremity pitting edema and no calf tenderness. NEUROLOGIC EXAMINATION: Patient is awake, alert and oriented x3. ASSESSMENT Syncopal episode, rule out cardiac cause Acute on chronic heat failure with reduced ejection fraction Non-sustained Ventricular tachycardia Nonischemic cardiomyopathy Noncompliance Illicit drug use Questionable TIA 2 weeks ago, neurology following Hypertension Paroxysmal atrial fibrillation CHADS VASC 2, started on Xarelto PLAN Transition to IV Lasix 40mg BID Monitor I/Os, daily weights, renal function and electrolytes Continue heart failure regimen with Carvediol, lisinopril, spironolactone, h ydralazine Continue Anticoagulation with Xarelto- Case management consulted for coverage. Per case management, Xarelto is covered with $0 copay Continue cardiac telemetry He will require close follow-up outpatient with Dr. Burleson and further evaluation for ICD. Further recommendations based on clinical course Nurse Practitioner note has been reviewed, I agree with a documented findings and plan of care. Patient was seen and examined. Objective - Vital Signs Vital signs: Vital Signs Temp 97.5 F L 07/31/21 07:00 Pulse 72 07/31/21 07:00 Resp 18 07/31/21 07:00 BP 142/101 07/31/21 07:00 Pulse Ox 95 07/31/21 07:00 Intake & Output 07/30/21 07/31/21 07/31/21 18:59 06:59 18:59 Intake Total 360 Output Total 975 550 Balance -615 -550 Intake: Oral 360 Output: Urine 975 550 Other: Voiding Method Urinal Toilet # Voids 1 1 - Labs CBC & Chem 7: 07/31/21 06:27 07/30/21 06:15 Labs: Abnormal Lab Results - Last 24 Hours (Table) 07/30/21 07/30/21 Range/Units 06:15 06:15 MCHC 31.4 L (32.0-37.0) g/dL RDW 16.3 H (11.5-14.5) % Carbon Dioxide 18.2 L (20.0-27.5) mmol/L
[2021-07-31 09:27] LABS: Anion Gap 9.9 mmol/L (10.00-18.00); BUN/Creat Ratio 16.6 Ratio (12.00-20.00); Blood Urea Nitrogen 16.6 mg/dL (9.0-27.0); Calcium 8.4 mg/dL (8.7-10.3); Carbon Dioxide 22.1 mmol/L (20.0-27.5)
[2021-07-31] MEDS: FUROSEMIDE 10 MG/ML 4 ML VIAL IV SCH ×2 (09:34→21:08)
--- NOTE | 2021-07-31 15:03 | EEG ---
ELECTROENCEPHALOGRAM REPORT DATE OF SERVICE: 07/31/2021 CLINICAL HISTORY: This is a 51-year-old gentleman with a syncopal episode. The video EEG is obtained to evaluate for seizure and epileptiform activity. EEG TYPE: A routine 21 channel EEG is performed with video using the 10/20 electrode placement system. RELEVANT MEDICATION: The patient is not on any antiepileptic drug. DESCRIPTION: Wakefulness and drowsiness are obtained. During wakefulness, the posterior dominant rhythm consists of low to moderate voltage of 9.5-10.5 hertz that is well modulated, well sustained. There is no physiological stage 2 sleep architecture seen. There is no focal slowing. Interictal and ictal is none. ACTIVATION PROCEDURE: Photic stimulation did not evoke a posterior driving response. There is no abnormality during the photic stimulation. Hyperventilation: Hyperventilation is not performed. CLINICAL INTERPRETATION: This is a normal routine EEG. There is no focal slowing, epileptiform discharges or seizure on the EEG. Clinical correlation is recommended. TARUN / CINTHYAN: [id number] / KIT
[2021-07-31] MEDS: RIVAROXABAN 20 MG TAB PO SCH (16:33)
--- NOTE | 2021-07-31 17:13 | PN ---
PROGRESS NOTE DATE OF SERVICE: 07/31/2021 CHIEF COMPLAINT: Syncope and edema with scrotal pain. HISTORY OF PRESENT ILLNESS: This gentleman is doing fairly well. He has had no further issues with syncope, dizziness, chest pain, palpitations, etc. Studies found that in the scrotum he has a varicocele and hydrocele. He still has peripheral edema, but he has had no fever, chills, chest pain, etc. PHYSICAL EXAMINATION: Chest is clear. Cardiac exam is normal. Abdomen is soft, nontender. Lower extremities are still edematous, but they are improving. IMPRESSION: 1. Syncopal episode; etiology unknown. 2. Dependent edema. PLAN: Continue with further evaluation, and increased activity before discharge is recommended. MMODL / IJN: [id number] /
[2021-08-01] MEDS: HYDROmorphone 1 MG/ML 1 ML SYRINGE IVP PRN ×7 (03:09→23:09)
[2021-08-01 06:38] LABS: African American GFR (CKD) >90 (>60 ml/min/1.73 sqM); Anion Gap 9 mmol/L; Blood Urea Nitrogen 19 mg/dL (9-20); Calcium 8.7 mg/dL (8.4-10.2); Carbon Dioxide 28 mmol/L (22-30); Chloride 100 mmol/L (98-107); Glucose 100 mg/dL (74-99); Non-African American GFR(CKD) >90 (>60 ml/min/1.73 sqM); Potassium 3.9 mmol/L (3.5-5.1); Sodium 137 mmol/L (137-145)
[2021-08-01] MEDS: hydrALAZINE HCL 50 MG TAB PO SCH ×3 (08:15→20:46)
[2021-08-01] MEDS: FUROSEMIDE 10 MG/ML 4 ML VIAL IV SCH ×2 (08:16→20:46)
[2021-08-01] MEDS: lisinopriL 20 MG TAB PO SCH (08:16)
[2021-08-01] MEDS: SPIRONOLACTONE 25 MG TAB PO SCH (08:16)
[2021-08-01] MEDS: carvediloL 6.25 MG TAB PO SCH ×2 (08:16→15:02)
[2021-08-01] MEDS: ASPIRIN 81 MG PO SCH (08:16)
[2021-08-01] MEDS: HYDROcodone/APAP 5-325MG 1 EACH TAB PO PRN ×2 (08:19→14:59)
--- NOTE | 2021-08-01 10:28 | US ---
EXAMINATION TYPE: US venous doppler duplex LE BI DATE OF EXAM: 08/01/2021 9:31 AM COMPARISON: NONE CLINICAL HISTORY: worsening left lower extremity pain and swelling. Leg swelling SIDE PERFORMED: Bilateral TECHNIQUE: The lower extremity deep venous system is examined utilizing real time linear array sonog deon with graded compression, doppler sonography and color-flow sonography. VESSELS IMAGED: Common Femoral Vein Deep Femoral Vein Greater Saphenous Vein * Femoral Vein Popliteal Vein Small Saphenous Vein * Proximal Calf Veins (* superficial vessels) Right Leg: Negative for DVT Left Leg: Negative for DVT IMPRESSION: 1. Bilateral lower extremity ultrasound negative for deep venous thrombosis
[2021-08-01] MEDS ORDERED: Magnesium Replacement Protocol 1 EACH MISC MISCELLANE PRN (10:42)
[2021-08-01] MEDS ORDERED: hydrALAZINE HCL 50 MG TAB PO ONE (11:00)
--- NOTE | 2021-08-01 11:17 | P.PN ---
Subjective This is a pleasant 51-year-old male past medical history significant for with nonischemic cardiomyopathy, illicit drug use, hypertension, n oncompliance chronic heart failure with reduced EF and paroxysmal atrial fibrillation. He was not currently anticoagulated has a chads vasc score of 1 in the past but due to question of TIA would be calculated at 2, current every day smoker, history of methamphetamine abuse but denies any current use he does smoke marijuana daily. He does not follow regularly in the office with Dr. Owens, last visit 2018. We have been asked to see in consultation for Syncope. Presented to the emergency department at the advice of his primary care physician. He presents after a syncopal episode at home. He was in the bathroom shower and loss consiousness, unclear downtime. He has had 2 syncopal episodes. He also has been having symptoms of LE edema, orthopnea, scrotal edema and pain, left-sided numbness that lasted about 20 minutes. On this admission, patient was started on Xarelto. DIAGNOSTICS Most recent echocardiogram was done June 2021 which showed an ejection fraction between 20-25% with moderate MR, severe TR and severe pulmonary hypertension. Cardiac catheterization done in March 2021 showed normal coronary arteries. Scrotal ultrasound showed bilateral varicocele, bilateral hydrocele. Chest x-ray on admission showed cardiomegaly, chronic appearing coarsened interstitium correlate for chronic interstitial lung disease, chronic venous congestion not excluded. MRI of the brain showed some white matter signal changes which could correlate to microvascular ischemia or demyelinating disease, no evidence of cortical infarct. 08/01/2021 Patient seen and examined at bedside, no acute distress. He has increased redness and pain to the left lower extremity this morning. His scrotal pain and swelling has improved. Continues to have symptoms of bilateral lower extremity edema. He denies any lightheadedness, dizziness. No syncopal episodes noted. Patient with 2.3L urine output over the past 24 hours. Telemetry reviewed patient is maintaining sinus mechanism with heart rate in the 70s90s. No further episodes of nonsustained ventricular tachycardia since 07/29/21. Orthostatics have been negative. US dopplers of bilateral lower extremities negative for DVT. Labs on admission, sodium 137, potassium 3.9, BUN 19, serum creatinine 0.8, magnesium 1.6 She's currently maintained on IV Lasix 40 mg BID, aspirin 81 mg daily, carvedilol 6.25 mg twice a day, hydralazine 50 mg 3 times a day, lisinopril 40 mg daily, Xarelto 20 mg daily, spironolactone 25 mg daily PHYSICAL EXAMINATION Vitals reviewed CONSTITUTIONAL: No apparent distress. Obese. HEENT:Neck Supple No JVD. CHEST EXAMINATION: Lungs are clear to auscultation. No chest wall tenderness is noted on palpation or with deep breathing. HEART EXAMINATION: Regular rate and rhythm. S1, S2 heard. Systolic ejection murmur at the base, no gallops or rub. ABDOMEN: Soft, nontender. EXTREMITIES: 3+ bilateral lower extremity pitting edema and no calf tenderness. NEUROLOGIC EXAMINATION: Patient is awake, alert and oriented x3. ASSESSMENT Syncopal episode, rule out cardiac cause Acute on chronic heart failure with reduced ejection fraction Non-sustained Ventricular tachycardia Nonischemic cardiomyopathy Noncompliance Illicit drug use Questionable TIA 2 weeks ago, neurology following Hypertension Paroxysmal atrial fibrillation CHADS VASC 2, started on Xarelto PLAN Continue IV Lasix 40mg BID for additional 24 hours, hopefully transition to PO tomorrow Monitor I/Os, daily weights, renal function and electrolytes Continue heart failure regimen with Carvediol, lisinopril, spironolactone, hydralazine Continue Anticoagulation with Xarelto- Case management consulted for coverage. Per case management, Xarelto is covered with $0 copay Continue cardiac telemetry He will require close follow-up outpatient with Dr. Burleson and further evaluation for ICD. Further recommendations based on clinical course Nurse Practitioner note has been reviewed, I agree with a documented findings and plan of care. Patient was seen and examined. Objective - Vital Signs Vital signs: Vital Signs Temp 98.2 F 08/01/21 04:14 Pulse 72 08/01/21 04:14 Resp 18 08/01/21 04:14 BP 135/96 08/01/21 04:14 Pulse Ox 100 08/01/21 04:14 Intake & Output 07/31/21 08/01/21 08/01/21 18:59 06:59 18:59 Intake Total 1150 500 Output Total 1725 600 Balance -575 -100 Intake: IV 110 .9@10 100 Invasive Line 1 10 Intake, IV Titration 200 Amount Sodium Chloride 0.9% 1, 150 000 ml @ 75 mls/hr IV . [id number] [facility] Rx#:[id number] ceFAZolin 2 gm In Sodium 50 Chloride 0.9% 50 ml @ 100 mls/hr IVPB Q8HR [facility] Rx# :[id number] Oral 840 500 Output: Urine 1725 600 Other: Voiding Method Toilet Toilet # Voids 2 - Labs CBC & Chem 7: 07/31/21 06:27 08/01/21 05:59 Labs: Abnormal Lab Results - Last 24 Hours (Table) 08/01/21 Range/Units 05:59 Glucose 100 H (74-99) mg/dL
[2021-08-01] MEDS: MAGNESIUM SULFATE-D5W PMX 1 GM in DEXTROSE/WATER 1 100ML.BAG IVPB SCH ×2 (11:41→13:41)
[2021-08-01] MEDS: RIVAROXABAN 20 MG TAB PO SCH (15:02)
--- NOTE | 2021-08-01 20:25 | PN ---
PROGRESS NOTE CHIEF COMPLAINT: Syncope. HISTORY OF PRESENT ILLNESS: This gentleman is gaining more fluid and edema. He is currently having an echocardiogram. He is being followed with Cardiology as well. PHYSICAL EXAMINATION: Deferred at this time because he is having his echocardiogram. IMPRESSION: 1. Syncope. 2. Atherosclerotic cardiomyopathy. 3. Congestive heart failure. 4. History of substance abuse and alcoholism. PLAN: Continue efforts to evaluate his cardiac function and continue diuresis. MMODL / IJN: [id number] /
[2021-08-02] MEDS: HYDROcodone/APAP 5-325MG 1 EACH TAB PO PRN ×2 (01:58→17:50)
[2021-08-02] MEDS: HYDROmorphone 1 MG/ML 1 ML SYRINGE IVP PRN ×5 (03:03→15:43)
[2021-08-02 06:51] LABS: African American GFR (CKD) >90 (>60 ml/min/1.73 sqM); Anion Gap 7 mmol/L; Blood Urea Nitrogen 18 mg/dL (9-20); Calcium 8.5 mg/dL (8.4-10.2); Carbon Dioxide 26 mmol/L (22-30); Chloride 99 mmol/L (98-107); Glucose 102 mg/dL (74-99); Magnesium 1.8 mg/dL (1.6-2.3); Non-African American GFR(CKD) >90 (>60 ml/min/1.73 sqM); Potassium 4.1 mmol/L (3.5-5.1); Sodium 132 mmol/L (137-145)
[2021-08-02] MEDS: hydrALAZINE HCL 50 MG TAB PO SCH ×3 (08:19→21:11)
[2021-08-02] MEDS: SPIRONOLACTONE 25 MG TAB PO SCH (08:19)
[2021-08-02] MEDS: lisinopriL 20 MG TAB PO SCH (08:19)
[2021-08-02] MEDS: carvediloL 6.25 MG TAB PO SCH (08:19)
[2021-08-02] MEDS: ASPIRIN 81 MG PO SCH (08:19)
[2021-08-02] MEDS: FUROSEMIDE 10 MG/ML 4 ML VIAL IV SCH ×2 (08:20→21:11)
[2021-08-02] MEDS ORDERED: carvediloL 6.25 MG TAB PO STA (08:47)
[2021-08-02 13:16] VITALS: BMI 34.0
--- NOTE | 2021-08-02 13:28 | P.PN ---
Subjective This is a pleasant 51-year-old male past medical history significant for with nonischemic cardiomyopathy, illicit drug use, hypertension, n oncompliance chronic heart failure with reduced EF and paroxysmal atrial fibrillation. He was not currently anticoagulated has a chads vasc score of 1 in the past but due to question of TIA would be calculated at 2, current every day smoker, history of methamphetamine abuse but denies any current use he does smoke marijuana daily. He does not follow regularly in the office with Dr. Owens, last visit 2018. We have been asked to see in consultation for Syncope. Presented to the emergency department at the advice of his primary care physician. He presents after a syncopal episode at home. He was in the bathroom shower and loss consiousness, unclear downtime. He has had 2 syncopal episodes. He also has been having symptoms of LE edema, orthopnea, scrotal edema and pain, left-sided numbness that lasted about 20 minutes. On this admission, patient was started on Xarelto. DIAGNOSTICS Most recent echocardiogram was done June 2021 which showed an ejection fraction between 20-25% with moderate MR, severe TR and severe pulmonary hypertension. Cardiac catheterization done in March 2021 showed normal coronary arteries. Scrotal ultrasound showed bilateral varicocele, bilateral hydrocele. Chest x-ray on admission showed cardiomegaly, chronic appearing coarsened interstitium correlate for chronic interstitial lung disease, chronic venous congestion not excluded. MRI of the brain showed some white matter signal changes which could correlate to microvascular ischemia or demyelinating disease, no evidence of cortical infarct. 08/02/2021 Patient seen and examined at bedside, no acute distress. He states overall he is not feeling well. He continues to have lower extremity edema bilaterally, improved from yesterday. His scrotal pain and swelling has improved. He denies any lightheadedness, dizziness. No syncopal episodes noted. Patient with 2.3L urine output over the past 24 hours. Telemetry reviewed patient is maintaining sinus mechanism with heart rate in the 60s90s. No further episodes of nonsustained ventricular tachycardia since 07/05 10/25. Orthostatics have been negative. US dopplers of bilateral lower extremities negative for DVT. Labs on admission, sodium 132, potassium 4.1, BUN 18, serum creatinine 0.81, magnesium 1.8 She's currently maintained on IV Lasix 40 mg BID, aspirin 81 mg daily, carvedilol 6.25 mg twice a day, hydralazine 50 mg 3 times a day, lisinopril 40 mg daily, Xarelto 20 mg daily, spironolactone 25 mg daily PHYSICAL EXAMINATION Vitals 151/93, heart rate 73, afebrile 100% on room air CONSTITUTIONAL: No apparent distress. Obese. HEENT:Neck Supple No JVD. CHEST EXAMINATION: Lungs are clear to auscultation. No chest wall tenderness is noted on palpation or with deep breathing. HEART EXAMINATION: Regular rate and rhythm. S1, S2 heard. Systolic ejection murmur at the base, no gallops or rub. ABDOMEN: Soft, nontender. EXTREMITIES: 2-3+ bilateral lower extremity pitting edema and no calf tendern ess. NEUROLOGIC EXAMINATION: Patient is awake, alert and oriented x3. ASSESSMENT Syncopal episode, rule out cardiac cause Acute on chronic heart failure with reduced ejection fraction Non-sustained Ventricular tachycardia Nonischemic cardiomyopathy Noncompliance Illicit drug use Questionable TIA 2 weeks ago, neurology following Hypertension Paroxysmal atrial fibrillation CHADS VASC 2, started on Xarelto PLAN Increase carvedilol 12.5mg BID We recommend continuing IV Diuresis Continue IV Lasix 40mg BID for additional 24 hours Monitor I/Os, daily weights, renal function and electrolytes Continue heart failure regimen with Carvediol, lisinopril, spironolactone, hydralazine Continue Anticoagulation with Xarelto- Case management consulted for coverage. Per case management, Xarelto is covered with $0 copay Continue cardiac telemetry He will require close follow-up outpatient with Dr. Burleson and further evaluation for ICD. Further recommendations based on clinical course Nurse Practitioner note has been reviewed, I agree with a documented findings and plan of care. Patient was seen and examined. Objective - Vital Signs Vital signs: Vital Signs Temp 97.8 F 08/02/21 06:10 Pulse 73 08/02/21 06:10 Resp 20 08/02/21 06:10 BP 151/93 08/02/21 06:10 Pulse Ox 100 08/02/21 06:10 Intake & Output 08/01/21 08/02/21 08/02/21 18:59 06:59 18:59 Other: Voiding Method Toilet Toilet # Voids 1 - Labs CBC & Chem 7: 07/31/21 06:27 08/02/21 06:02 Labs: Abnormal Lab Results - Last 24 Hours (Table) 08/02/21 Range/Units 06:02 Sodium 132 L (137-145) mmol/L Glucose 102 H (74-99) mg/dL
--- NOTE | 2021-08-02 14:01 | PN ---
PROGRESS NOTE CHIEF COMPLAINT: Syncope and edema. HISTORY OF PRESENT ILLNESS: This gentleman continues to be managed by Cardiology. He is still quite edematous. His studies so far have indicated what has been expected. His ejection fraction is low. He is being diuresed with Lasix, and Cardiology wants him to stay in the hospital another day. He has been very noncompliant in the past and probably will continue to be. He also has a history of using meth and has intermittent atrial fibrillation. PHYSICAL EXAMINATION: Breath sounds are somewhat diminished with scattered rales. Cardiac exam sounds sinus with a faint grade 2/6 systolic murmur. Legs are slightly less edematous. IMPRESSION: 1. Syncope. 2. Atherosclerotic cardiomyopathy. 3. History of substance abuse. 4. Congestive heart failure. 5. Cardiac murmur. PLAN: Continue with diuresis and discharge when cleared by Cardiology. MMLACYL / CINTHYAN: [id number] /
[2021-08-02] MEDS: RIVAROXABAN 20 MG TAB PO SCH (17:49)
[2021-08-02] MEDS: carvediloL 12.5 MG TAB PO SCH (17:49)
[2021-08-02] MEDS: HYDROmorphone 0.5 MG/0.5 ML SYRINGE IVP PRN (21:11)
[2021-08-03] MEDS: HYDROcodone/APAP 5-325MG 1 EACH TAB PO PRN ×4 (00:21→23:38)
[2021-08-03] MEDS: HYDROmorphone 0.5 MG/0.5 ML SYRINGE IVP PRN ×3 (05:39→19:02)
[2021-08-03] MEDS: carvediloL 12.5 MG TAB PO SCH ×2 (07:24→17:30)
[2021-08-03 07:58] LABS: African American GFR (CKD) >90 (>60 ml/min/1.73 sqM); Anion Gap 7 mmol/L; Blood Urea Nitrogen 19 mg/dL (9-20); Calcium 8.4 mg/dL (8.4-10.2); Carbon Dioxide 24 mmol/L (22-30); Chloride 101 mmol/L (98-107); Glucose 80 mg/dL (74-99); Magnesium 1.7 mg/dL (1.6-2.3); Non-African American GFR(CKD) >90 (>60 ml/min/1.73 sqM); Potassium 4.4 mmol/L (3.5-5.1); Sodium 132 mmol/L (137-145)
--- NOTE | 2021-08-03 09:22 | P.PN ---
Subjective This is a pleasant 51-year-old male past medical history significant for with nonischemic cardiomyopathy, illicit drug use, hypertension, n oncompliance chronic heart failure with reduced EF and paroxysmal atrial fibrillation. He was not currently anticoagulated has a chads vasc score of 1 in the past but due to question of TIA would be calculated at 2, current every day smoker, history of methamphetamine abuse but denies any current use he does smoke marijuana daily. He does not follow regularly in the office with Dr. Owens, last visit 2018. We have been asked to see in consultation for Syncope. Presented to the emergency department at the advice of his primary care physician. He presents after a syncopal episode at home. He was in the bathroom shower and loss consiousness, unclear downtime. He has had 2 syncopal episodes. He also has been having symptoms of LE edema, orthopnea, scrotal edema and pain, left-sided numbness that lasted about 20 minutes. On this admission, patient was started on Xarelto. DIAGNOSTICS Most recent echocardiogram was done June 2021 which showed an ejection fraction between 20-25% with moderate MR, severe TR and severe pulmonary hypertension. Cardiac catheterization done in March 2021 showed normal coronary arteries. Scrotal ultrasound showed bilateral varicocele, bilateral hydrocele. Chest x-ray on admission showed cardiomegaly, chronic appearing coarsened interstitium correlate for chronic interstitial lung disease, chronic venous congestion not excluded. MRI of the brain showed some white matter signal changes which could correlate to microvascular ischemia or demyelinating disease, no evidence of cortical infarct. 08/03/2021 Patient seen and examined at bedside, no acute distress. He has worsening bilateral redness and pain, his edema is slightly improved. His scrotal pain and swelling has improved. He denies any lightheadedness, dizziness, palpitations, chest pain. No syncopal episodes noted. Good urine output. Pa tient with 2.6L urine output over the past 24 hours. Telemetry reviewed patient is maintaining sinus mechanism with heart rate in the 60s90s. No further episodes of nonsustained ventricular tachycardia since 07/29/21. US dopplers of bilateral lower extremities negative for DVT. Labs: sodium 132, potassium 4.4, BUN 19, serum and 0.8, magnesium 1.7 Hes currently maintained on IV Lasix 40 mg BID, aspirin 81 mg daily, carvedilol 6.25 mg twice a day, hydralazine 50 mg 3 times a day, lisinopril 40 mg daily, Xarelto 20 mg daily, spironolactone 25 mg daily PHYSICAL EXAMINATION Vitals 114/67, heart rate 76, afebrile, oxygen saturation 98% on room air CONSTITUTIONAL: No apparent distress. Obese. HEENT:Neck Supple No JVD. CHEST EXAMINATION: Lungs are clear to auscultation. No chest wall tenderness is noted on palpation or with deep breathing. HEART EXAMINATION: Regular rate and rhythm. S1, S2 heard. Systolic ejection murmur at the base, no gallops or rub. ABDOMEN: Soft, nontender. EXTREMITIES: 2-3+ bilateral lower extremity pitting edema. Bilateral leg redness and pain noted NEUROLOGIC EXAMINATION: Patient is awake, alert and oriented x3. ASSESSMENT Syncopal episode, rule out cardiac cause Acute on chronic heart failure with reduced ejection fraction Non-sustained Ventricular tachycardia Nonischemic cardiomyopathy Noncompliance Illicit drug use Questionable TIA 2 weeks ago, neurology following Hypertension Paroxysmal atrial fibrillation CHADS VASC 2, started on Xarelto PLAN Patient with worsening bilateral lower extremity redness and pain today below knees, left leg worse than right. Possible cellulitis component. Will defer antibiotics to primary We recommend continuing IV Diuresis Continue carvedilol 12.5mg BID Continue IV Lasix 40mg BID for additional 24 hours Monitor I/Os, daily weights, renal function and electrolytes Continue heart failure regimen with Carvediol, lisinopril, spironolactone, hydralazine Continue Anticoagulation with Xarelto- Case management consulted for coverage. Per case management, Xarelto is covered with $0 copay Continue cardiac telemetry He will require close follow-up outpatient with Dr. Burleson and further evaluation for ICD. Further recommendations based on clinical course Nurse Practitioner note has been reviewed, I agree with a documented findings and plan of care. Patient was seen and examined. Objective - Vital Signs Vital signs: Vital Signs Temp 98.2 F 08/03/21 07:16 Pulse 76 08/03/21 08:30 Resp 17 08/03/21 08:30 BP 114/67 08/03/21 07:16 Pulse Ox 98 08/03/21 08:00 Intake & Output 08/02/21 08/03/21 08/03/21 18:59 06:59 18:59 Output Total 2625 Balance -2625 Weight 104.326 kg 105 kg Output: Urine 2525 Emesis 100 Other: Voiding Method Toilet Toilet Toilet Urinal Urinal Urinal - Labs CBC & Chem 7: 07/31/21 06:27 08/03/21 06:13 Labs: Abnormal Lab Results - Last 24 Hours (Table) 08/03/21 Range/Units 06:13 Sodium 132 L (137-145) mmol/L
[2021-08-03] MEDS: lisinopriL 20 MG TAB PO SCH (10:07)
[2021-08-03] MEDS: hydrALAZINE HCL 50 MG TAB PO SCH ×3 (10:07→22:10)
[2021-08-03] MEDS: SPIRONOLACTONE 25 MG TAB PO SCH (10:07)
[2021-08-03] MEDS: ASPIRIN 81 MG PO SCH (10:08)
[2021-08-03] MEDS: FUROSEMIDE 10 MG/ML 4 ML VIAL IV SCH ×2 (10:08→22:10)
--- NOTE | 2021-08-03 16:07 | PN ---
PROGRESS NOTE CHIEF COMPLAINT: Syncopal episodes and congestive heart failure. HISTORY OF PRESENT ILLNESS: This gentleman is probably doing okay, but he continues to complain about pain and is demanding increased the dosage of his Dilaudid. PHYSICAL EXAMINATION: Chest is clear. Cardiac exam is unchanged. Abdomen is soft, nontender. Legs are still somewhat edematous. IMPRESSION: 1. Syncope. 2. Congestive heart failure. 3. Coronary artery disease. 4. Cardiomyopathy. 5. History of methamphetamine abuse. PLAN: We will gradually increase his activity and wait for discharge clearance from Cardiology. MMODL / IJN: [id number] /
[2021-08-03] MEDS: RIVAROXABAN 20 MG TAB PO SCH (17:29)
[2021-08-04] MEDS: HYDROmorphone 0.5 MG/0.5 ML SYRINGE IVP PRN ×2 (01:08→07:06)
[2021-08-04 04:38] VITALS: RESP 16; TEMP 98
[2021-08-04 06:54] LABS: African American GFR (CKD) >90 (>60 ml/min/1.73 sqM); Anion Gap 7 mmol/L; Blood Urea Nitrogen 24 mg/dL (9-20); Calcium 8.6 mg/dL (8.4-10.2); Carbon Dioxide 25 mmol/L (22-30); Chloride 102 mmol/L (98-107); Glucose 76 mg/dL (74-99); Magnesium 1.6 mg/dL (1.6-2.3); Non-African American GFR(CKD) >90 (>60 ml/min/1.73 sqM); Potassium 4.2 mmol/L (3.5-5.1); Sodium 134 mmol/L (137-145)
[2021-08-04] MEDS: carvediloL 12.5 MG TAB PO SCH (07:00)
[2021-08-04 08:15] VITALS: BP 105/60; PULSE 73
[2021-08-04] MEDS ORDERED: FUROSEMIDE 40 MG TAB PO SCH (09:00)
[2021-08-04] MEDS: ASPIRIN 81 MG PO SCH (09:15)
[2021-08-04] MEDS: SPIRONOLACTONE 25 MG TAB PO SCH (09:15)
[2021-08-04] MEDS: lisinopriL 20 MG TAB PO SCH (09:15)
[2021-08-04] MEDS: HYDROcodone/APAP 5-325MG 1 EACH TAB PO PRN (09:16)
[2021-08-04] MEDS: hydrALAZINE HCL 50 MG TAB PO SCH (09:16)
--- NOTE | 2021-08-04 11:33 | P.PN ---
Subjective This is a pleasant 51-year-old male past medical history significant for with nonischemic cardiomyopathy, illicit drug use, hypertension, n oncompliance chronic heart failure with reduced EF and paroxysmal atrial fibrillation. He was not currently anticoagulated has a chads vasc score of 1 in the past but due to question of TIA would be calculated at 2, current every day smoker, history of methamphetamine abuse but denies any current use he does smoke marijuana daily. He does not follow regularly in the office with Dr. Owens, last visit 2018. We have been asked to see in consultation for Syncope. Presented to the emergency department at the advice of his primary care physician. He presents after a syncopal episode at home. He was in the bathroom shower and loss consiousness, unclear downtime. He has had 2 syncopal episodes. He also has been having symptoms of LE edema, orthopnea, scrotal edema and pain, left-sided numbness that lasted about 20 minutes. On this admission, patient was started on Xarelto. DIAGNOSTICS Most recent echocardiogram was done June 2021 which showed an ejection fraction between 20-25% with moderate MR, severe TR and severe pulmonary hypertension. Cardiac catheterization done in March 2021 showed normal coronary arteries. Scrotal ultrasound showed bilateral varicocele, bilateral hydrocele. Chest x-ray on admission showed cardiomegaly, chronic appearing coarsened interstitium correlate for chronic interstitial lung disease, chronic venous congestion not excluded. MRI of the brain showed some white matter signal changes which could correlate to microvascular ischemia or demyelinating disease, no evidence of cortical infarct. 08/04/2021 Patient seen and examined at bedside, no acute distress. His bilateral redness and swelling in lower extremities has significantly improved from admission. He denies any lightheadedness, dizziness, palpitations, chest pain. No syncopal episodes noted. Good urine output. Patient with 1.2L urine output over the past 24 hours. Telemetry reviewed patient is maintaining sinus mechanism with heart rate in the 60s90s. No further episodes of nonsustained ventricular tachycardia since 07/29/21. US dopplers of bilateral lower extremities negative for DVT. Labs: sodium 134, potassium 4.2, BUN 24, serum creatinine 0.87, magnesium 1.6 Hes currently maintained on IV Lasix 40 mg BID, aspirin 81 mg daily, carvedilol 6.25 mg twice a day, hydralazine 50 mg 3 times a day, lisinopril 40 mg daily, Xarelto 20 mg daily, spironolactone 25 mg daily PHYSICAL EXAMINATION Vitals 105/60, heart rate 73, afebrile oxygen saturation greater than 92% on room air CONSTITUTIONAL: No apparent distress. Obese. HEENT:Neck Supple No JVD. CHEST EXAMINATION: Lungs are clear to auscultation. No chest wall tenderness is noted on palpation or with deep breathing. HEART EXAMINATION: Regular rate and rhythm. S1, S2 heard. Systolic ejection murmur at the base, no gallops or rub. ABDOMEN: Soft, nontender. EXTREMITIES: 1-2+ bilateral lower extremity pitting edema. Bilateral leg redness and pain noted NEUROLOGIC EXAMINATION: Patient is awake, alert and oriented x3. ASSESSMENT Syncopal episode, rule out cardiac cause Acute on chronic heart failure with reduced ejection fraction Non-sustained Ventricular tachycardia Nonischemic cardiomyopathy Noncompliance Illicit drug use Questionable TIA 2 weeks ago, neurology following Hypertension Paroxysmal atrial fibrillation CHADS VASC 2, started on Xarelto PLAN Transition to PO Lasix 40mg BID Continue carvedilol 12.5mg BID Continue heart failure regimen with Carvediol, lisinopril, spironolactone, hydralazine Continue Anticoagulation with Xarelto- Case management consulted for coverage. Per case management, Xarelto is covered with $0 copay From a cardiology perspective, patient may be discharged home today. He will require close follow-up outpatient with Dr. Burleson and further evaluation for ICD. Nurse Practitioner note has been reviewed, I agree with a documented findings and plan of care. Patient was seen and examined. Objective - Vital Signs Vital signs: Vital Signs Temp 98.0 F 08/04/21 04:36 Pulse 73 08/04/21 08:06 Resp 16 08/04/21 04:36 BP 105/60 08/04/21 08:06 Pulse Ox 97 08/04/21 04:36 Intake & Output 08/03/21 08/04/21 08/04/21 18:59 06:59 18:59 Intake Total 360 Output Total 1250 Balance -1250 360 Weight 98.3 kg Intake: Oral 360 Output: Urine 1250 Other: Voiding Method Toilet Urinal Urinal Urinal - Labs CBC & Chem 7: 07/31/21 06:27 08/04/21 05:49 Labs: Abnormal Lab Results - Last 24 Hours (Table) 08/04/21 Range/Units 05:49 Sodium 134 L (137-145) mmol/L BUN 24 H (9-20) mg/dL
[2021-08-04] MEDS ORDERED: CEPHALEXIN 500 MG CAP PO SCH (13:00)
--- NOTE | 2021-08-05 18:36 | DS ---
DISCHARGE SUMMARY CHIEF COMPLAINT: Syncopal episode, edema and congestive heart failure. HISTORY OF PRESENT ILLNESS AND PHYSICAL EXAMINATION: Details of this man's history and physical can be found in the initial workup. LABORATORY STUDIES: While he was in the hospital he had laboratory studies, details of which can be found in the laboratory section of his chart. COURSE IN THE HOSPITAL: After admission he was placed on bedrest, started on intravenous fluids and was diuresed. The etiology of his syncope was not clear. It was felt that he may have had an arrhythmia surrounding his fluid accumulation and CHF. He was seen and followed by Cardiology and was diuresed with Lasix. He gradually improved and it was felt that he could be discharged on August 04. He will be followed up in the office in a day or two. FINAL DIAGNOSIS: 1. Syncope, etiology unknown. 2. Acute on chronic congestive heart failure. 3. Atherosclerotic cardiomyopathy. 4. Chronic obstructive pulmonary disease. 5. Recent amputation of left middle toe. 6. Longstanding history of substance abuse with particularly amphetamines. OPERATIONS: None. CONSULTATION: Cardiology. He is improved. MMODL / IJN: [id number] /
== END 2021-08-04 13:23 | disposition home or self-care (01) | DRG 291 ==
LOC: EC 13:32 → 6NMEDSUR 20:19 → OBSVTOIN 07-31 10:46 → 5NMEDONC 07-31 20:53
PROVIDERS: ADMIT Family Medicine; ATTEND Family Medicine
DX: I11.0 Hypertensive heart disease with heart failure (principal); I50.23 Acute on chronic systolic (congestive) heart failure; I47.2 Ventricular tachycardia; I42.8 Other cardiomyopathies; I27.20 Pulmonary hypertension, unspecified; E78.5 Hyperlipidemia, unspecified; I48.0 Paroxysmal atrial fibrillation; G62.9 Polyneuropathy, unspecified; E80.7 Disorder of bilirubin metabolism, unspecified; F20.9 Schizophrenia, unspecified; J44.9 Chronic obstructive pulmonary disease, unspecified; F31.9 Bipolar disorder, unspecified; F10.21 Alcohol dependence, in remission; F15.11 Other stimulant abuse, in remission; F11.11 Opioid abuse, in remission; N49.2 Inflammatory disorders of scrotum; I86.1 Scrotal varices; N43.3 Hydrocele, unspecified; G89.29 Other chronic pain; R55 Syncope and collapse; I25.10 Atherosclerotic heart disease of native coronary artery without angina pectoris; M54.41 Lumbago with sciatica, right side; F41.9 Anxiety disorder, unspecified; I08.1 Rheumatic disorders of both mitral and tricuspid valves; S00.10XA Contusion of unspecified eyelid and periocular area, initial encounter; M54.42 Lumbago with sciatica, left side; R90.82 White matter disease, unspecified; R30.0 Dysuria; Z91.19 Patient's noncompliance with other medical treatment and regimen; F12.10 Cannabis abuse, uncomplicated; F17.210 Nicotine dependence, cigarettes, uncomplicated; Z71.6 Tobacco abuse counseling; Z79.82 Long term (current) use of aspirin; Z79.899 Other long term (current) drug therapy; Z87.01 Personal history of pneumonia (recurrent); Z87.442 Personal history of urinary calculi; Z86.14 Personal history of Methicillin resistant Staphylococcus aureus infection; Z86.69 Personal history of other diseases of the nervous system and sense organs; Z87.19 Personal history of other diseases of the digestive system; Z87.39 Personal history of other diseases of the musculoskeletal system and connective tissue; Z86.73 Personal history of transient ischemic attack (TIA), and cerebral infarction without residual deficits; Z91.51 Personal history of suicidal behavior; Z91.81 History of falling; Z98.890 Other specified postprocedural states; Z71.3 Dietary counseling and surveillance; Z88.6 Allergy status to analgesic agent; Z88.8 Allergy status to other drugs, medicaments and biological substances; W18.2XXA Fall in (into) shower or empty bathtub, initial encounter; Y92.002 Bathroom of unspecified non-institutional (private) residence as the place of occurrence of the external cause; Z82.49 Family history of ischemic heart disease and other diseases of the circulatory system
CPT/HCPCS: 36415; 70551; 71046; 76870; 80048; 80051; 80053; 81001; 83036; 83735; 83880; 84484; 85025; 85379; 85610; 85730; 93005; 93880; 93970; 93975; 94760; 95816; 96361; 96374; 96375; 99285

== ENCOUNTER 2021-10-14 16:38 | Inpatient (IN) | payer OTHER ==
[2021-10-14] MEDS ORDERED: diphenhydrAMINE 50 MG/ML 1 ML VIAL IVP STA (17:41)
[2021-10-14] MEDS ORDERED: ASPIRIN 81 MG PO STA (17:41)
[2021-10-14] MEDS ORDERED: MORPHINE SULFATE 4 MG/ML SYRINGE IV STA (17:41)
[2021-10-14] MEDS ORDERED: FUROSEMIDE 10 MG/ML 4 ML VIAL IV STA (17:41)
[2021-10-14] MEDS ORDERED: ONDANSETRON 4 MG/2 ML VIAL IVP STA (17:41)
[2021-10-14] MEDS ORDERED: FAMOTIDINE 20 MG/2 ML VIAL IV STA (17:43)
--- NOTE | 2021-10-14 17:46 | ED ---
General Adult HPI - General Chief complaint: Chest Pain Stated complaint: Chest pain,Abd pain Time Seen by Provider: 10/14/21 17:24 Source: patient, RN notes reviewed, old records reviewed Mode of arrival: wheelchair Limitations: no limitations - History of Present Illness Initial comments: Patient is a 51-year-old male with past medical history remarkable for congestive heart failure, atrial fibrillation, COPD, hypertension who is on several toe presents emergency Department complaining of progressively worsening shortness of breath and lower extremity swelling over the last few weeks. Has noticed worsening lower extremity edema associated with worsening orthopnea as well as exertional dyspnea. This is been progressive. He has also noticed his chronic chest discomfort as well as new-onset abdominal discomfort. The abdominal pain started yesterday. Patient states he always has chest pain and there is no difference. It was slightly worse yesterday but now is at his baseline. Describes it as a pressure sensation located just above the epigastric region. There is been complaining of epigastric and periumbilical abdominal pain since yesterday. Began having nonbilious nonbloody emesis. Denies any diarrhea or constipation. Denies any urinary complaints. Denies any history of alcohol abuse. Presents for further evaluation at this time. Uncertain what is causing his current symptoms. Please see is volume overloaded. States he is compliant with medications. - Related Data Home Medications Medication Instructions Recorded Confirmed Aspirin EC [Ecotrin Low Dose] 81 mg PO DAILY 05/23/21 07/28/21 Nitroglycerin Sl Tabs [Nitrostat] 0.4 mg SL Q5M PRN 06/28/21 07/28/21 HYDROcodone/APAP 5-325MG [Dell 1 tab PO Q6H PRN 07/28/21 07/28/21 5-325] lisinopriL 40 mg PO DAILY 07/28/21 07/28/21 Albuterol Sulfate [Proair Hfa] 2 puff INHALATION RT-QID PRN 10/14/21 10/14/21 Budesonide-Formot 160-4.5 Mcg 2 puff INHALATION RT-BID 10/14/21 10/14/21 [Symbicort 160-4.5 Mcg Inhaler] Metoprolol Succinate (ER) [Toprol 100 mg PO DAILY 10/14/21 10/14/21 Xl] hydrALAZINE HCL [Apresoline] 100 mg PO TID 10/14/21 10/14/21 Previous Rx's Medication Instructions Recorded Spironolactone [Aldactone] 25 mg PO DAILY #10 tab 07/06/21 Rivaroxaban [Xarelto] 20 mg PO W/SUPPER 30 Days #30 tab 07/31/21 Furosemide [Lasix] 40 mg PO BID@0900,1600 30 Days #60 08/04/21 tab Allergies Allergy/AdvReac Type Severity Reaction Status Date / Time ibuprofen [From Motrin] AdvReac Nausea & Verified 10/14/21 20:28 Vomiting simvastatin [From Zocor] AdvReac Dizziness Verified 10/14/21 20:28 Review of Systems ROS Statement: Those systems with pertinent positive or pertinent negative responses have been documented in the HPI. Review of Systems: CONST: Denies fever EYES: Denies blurry vision ENT: Denies nasal congestion C/V: Endorses chronic Chest pain RESP: Endorses shortness of breath GI: Endorses abdominal pain : Denies dysuria SKIN: Denies rash. MSK: Denies joint pain. NEURO: Denies headache ROS Other: All systems not noted in ROS Statement are negative. Past Medical History Past Medical History: Atrial Fibrillation, COPD, Hyperlipidemia, Hypertension, Pneumonia Additional Past Medical History / Comment(s): Other HX; Costochondritis, chronic pain, chronic low back pain with bilateral sciatica, neuropathy bilateral hands/feet, migraines, kidney stones, past partial small bowel obstruction. HTN the last 10 yrs Stopped taking meds 5 yrs ago. COPD due to tobacco use. [place]una use 3 -4 times a week - Smoke it History of Any Multi-Drug Resistant Organisms: None Reported, MRSA Date of last positivie culture/infection: 04/10/18 MDRO Source:: TOE Past Surgical History: Heart Catheterization, Orthopedic Surgery Additional Past Surgical History / Comment(s): 03/14/18 Cardiac cath-normal coronaries, L shoulder rotator cuff repair x2, cervical injection. Past Anesthesia/Blood Transfusion Reactions: No Reported Reaction Past Psychological History: Anxiety, Bipolar, Depression, Schizophrenia Smoking Status: Current every day smoker Past Alcohol Use History: None Reported Past Drug Use History: Marijuana, Prescription Drug Abuse - Past Family History Father Family Medical History: Myocardial Infarction ([place]) Additional Family Medical History / Comment(s): mi at age 35, still living Mother Family Medical History: Myocardial Infarction ([place]) Additional Family Medical History / Comment(s): Mother has had at least one [place]- pt unsure at what age. He has not had much contact with his mother since he was 17 yrs old. General Exam - General Exam Comments Initial Comments: General: Appears in no acute distress. HEAD: Normal with no signs of head trauma. EYES: PERRLA, EOMI, conjunctiva normal, no discharge. ENT: Hearing grossly intact, normal oropharynx. RESPIRATORY: Clear breath sounds bilaterally. No wheezes, rales, or rhonchi. No hypoxia. C/V: Mild tachycardia. S1 and S2 auscultated. Symmetrical bilateral lower extremity pitting edema whichis 2 to 3+. States it is worse. Peripheral pulses 2+ and intact. ABD: Abdomen soft, nondistended. Mildly tender to palpation epigastric and periumbilical region. No guarding. No peritoneal signs. No rebound tenderness. EXT: Normal range of motion, no obvious deformity SKIN: No rashes or lesions observed on exposed skin. NEURO: Alert and oriented 4. No focal deficits. Limitations: no limitations Course Vital Signs 10/14/21 10/14/21 10/14/21 16:45 18:09 19:13 Temperature 97.8 F Pulse Rate 104 H 96 100 Pulse Rate [ 96 Pillow Cleaner ] Respiratory 23 20 20 Rate Blood Pressure 159/97 163/123 160/129 O2 Sat by Pulse 99 96 97 Oximetry Medical Decision Making - Medical Decision Making Based on the patient's presentation and physical exam, he is clinically having a heart failure exacerbation. He is worsening orthopnea with worsening bilateral lower extremity edema and exertional dyspnea. He will be administered IV Lasix as well as an aspirin due to his chronic chest pain. We will obtain a cardiopulmonary workup as well as abdominal laboratory studies. We'll likely obtain a CT abdomen and pelvis. Patient was in agreement with this plan. Will receive IV analgesia, antiemetics, and addition to the aspirin and Lasix. EKG showed no signs of acute ischemia. Chest x-ray showed small posterior pleural effusions and subsegmental atelectasis which is new compared to old exam. Laboratory studies were remarkable for a slightly elevated bilirubin of 1.6. Troponin is undetectable. BNP is elevated to 1380. Remainder the labs are unremarkable. On reevaluation, patient still complaining of abdominal pain. Due to the pain, we will obtain a CT abdomen and pelvis with contrast. He was in agreement this plan. Morphine does appear to help with his pain.CT and pelvis revealed no acute intra-abdominal process. There were small pleural effusions which are improved compared to the old exams. There is increased abdominal ascites. No o ther findings. I discussed the findings with the patient. Patient will be admitted for heart failure exacerbation. He was in agreement this plan. Vital signs remained within normal limits and stable. Echo was ordered. Patient was started on Lasix 40 mg twice a day. Cardiology was consulted. I spoke with the patient's admitting physician, Dr. Glasgow who accepted the patient. He was admitted to telemetry bed. On subsequent reevaluation the patient's pain is improved following the admini stration of morphine. Vital signs remain within normal limits at this time. - Lab Data Result diagrams: 10/14/21 18:05 10/14/21 19:03 Lab Results 10/14/21 10/14/21 10/14/21 Range/Units 18:05 18:05 18:05 WBC 7.5 (3.8-10.6) k/uL RBC 4.89 (4.30-5.90) m/uL Hgb 15.8 (13.0-17.5) gm/dL Hct 48.5 (39.0-53.0) % MCV 99.3 (80.0-100.0) fL MCH 32.3 (25.0-35.0) pg MCHC 32.5 (31.0-37.0) g/dL RDW 17.2 H (11.5-15.5) % Plt Count 208 (150-450) k/uL MPV 8.5 Neutrophils % 75 % Lymphocytes % 15 % Monocytes % 6 % Eosinophils % 2 % Basophils % 1 % Neutrophils # 5.6 (1.3-7.7) k/uL Lymphocytes # 1.1 (1.0-4.8) k/uL Monocytes # 0.4 (0-1.0) k/uL Eosinophils # 0.2 (0-0.7) k/uL Basophils # 0.1 (0-0.2) k/uL Anisocytosis Slight Macrocytosis Slight PT 12.5 H (9.0-12.0) sec INR 1.2 H (<1.2) APTT 24.9 (22.0-30.0) sec Sodium (137-145) mmol/L Potassium (3.5-5.1) mmol/L Chloride (98-107) mmol/L Carbon Dioxide (22-30) mmol/L Anion Gap mmol/L BUN (9-20) mg/dL Creatinine (0.66-1.25) mg/dL Est GFR (CKD-EPI)AfAm (>60 ml/min/1.73 sqM) Est GFR (CKD-EPI)NonAf (>60 ml/min/1.73 sqM) Glucose (74-99) mg/dL Calcium (8.4-10.2) mg/dL Magnesium (1.6-2.3) mg/dL Total Bilirubin (0.2-1.3) mg/dL AST (17-59) U/L ALT (4-49) U/L Alkaline Phosphatase (38-126) U/L Troponin I (0.000-0.034) ng/mL NT-Pro-B Natriuret Pep 1380 pg/mL Total Protein (6.3-8.2) g/dL Albumin (3.5-5.0) g/dL Amylase (30-110) U/L Lipase (23-300) U/L Urine Color Urine Appearance (Clear) Urine pH (5.0-8.0) Ur Specific [place] (1.001-1.035) Urine Protein (Negative) Urine Glucose (UA) (Negative) Urine Ketones (Negative) Urine Blood (Negative) Urine Nitrite (Negative) Urine Bilirubin (Negative) Urine Urobilinogen (<2.0) mg/dL Ur Leukocyte Esterase (Negative) 10/14/21 10/14/21 10/14/21 Range/Units 18:05 19:03 19:03 WBC (3.8-10.6) k/uL RBC (4.30-5.90) m/uL Hgb (13.0-17.5) gm/dL Hct (39.0-53.0) % MCV (80.0-100.0) fL MCH (25.0-35.0) pg MCHC (31.0-37.0) g/dL RDW (11.5-15.5) % Plt Count (150-450) k/uL MPV Neutrophils % % Lymphocytes % % Monocytes % % Eosinophils % % Basophils % % Neutrophils # (1.3-7.7) k/uL Lymphocytes # (1.0-4.8) k/uL Monocytes # (0-1.0) k/uL Eosinophils # (0-0.7) k/uL Basophils # (0-0.2) k/uL Anisocytosis Macrocytosis PT (9.0-12.0) sec INR (<1.2) APTT (22.0-30.0) sec Sodium 136 L (137-145) mmol/L Potassium 3.9 (3.5-5.1) mmol/L Chloride 108 H (98-107) mmol/L Carbon Dioxide 19 L (22-30) mmol/L Anion Gap 9 mmol/L BUN 13 (9-20) mg/dL Creatinine 0.98 (0.66-1.25) mg/dL Est GFR (CKD-EPI)AfAm >90 (>60 ml/min/1.73 sqM) Est GFR (CKD-EPI)NonAf >90 (>60 ml/min/1.73 sqM) Glucose 90 (74-99) mg/dL Calcium 8.2 L (8.4-10.2) mg/dL Magnesium 1.8 (1.6-2.3) mg/dL Total Bilirubin 1.6 H (0.2-1.3) mg/dL AST 51 (17-59) U/L ALT 36 (4-49) U/L Alkaline Phosphatase 102 (38-126) U/L Troponin I <0.012 (0.000-0.034) ng/mL NT-Pro-B Natriuret Pep pg/mL Total Protein 6.4 (6.3-8.2) g/dL Albumin 3.4 L (3.5-5.0) g/dL Amylase 68 (30-110) U/L Lipase 144 (23-300) U/L Urine Color Colorless Urine Appearance Clear (Clear) Urine pH 7.0 (5.0-8.0) Ur Specific [place] 1.003 (1.001-1.035) Urine Protein Negative (Negative) Urine Glucose (UA) Negative (Negative) Urine Ketones Negative (Negative) Urine Blood Negative (Negative) Urine Nitrite Negative (Negative) Urine Bilirubin Negative (Negative) Urine Urobilinogen <2.0 (<2.0) mg/dL Ur Leukocyte Esterase Negative (Negative) - EKG Data -: EKG Interpreted by Me EKG Comments: 12-lead Electrocardiogram Interpretation Note EKG was reviewed and interpreted by myself. 12-lead ECG performed at 1658 is interpreted by me as revealing normal sinus rhythm at a rate of 95 beats per minute. [place] is normal. LA interval is 156 ms, QRS durations 100 ms, QTc is 454 ms. There are no T-wave inversions in lead V6.. There were no acute ST or T wave abnormalities to suggest myocardial ischemia or injury. R wave progression across the precordium was satisfactory. By my interpretation this EKG is non-diagnostic for acute ischemia. Disposition Clinical Impression: CHF exacerbation, Abdominal pain of unknown etiology, Nausea and vomiting Disposition: ADMITTED IP TO THIS HOSP Condition: Stable Referrals: Clif Glasgow MD [Primary Care Provider] - 1-2 days Time of Disposition: 20:25
[2021-10-14 18:35] LABS: Anisocytosis Slight; Basophils # (A) 0.1 k/uL (0-0.2); Basophils % (A) 1 %; Eosinophils # (A) 0.2 k/uL (0-0.7); Eosinophils % (A) 2 %; HCT 48.5 % (39.0-53.0); HGB 15.8 gm/dL (13.0-17.5); Lymphocytes # (A) 1.1 k/uL (1.0-4.8); Lymphocytes % (A) 15 %; MCH 32.3 pg (25.0-35.0); MCHC 32.5 g/dL (31.0-37.0); MCV 99.3 fL (80.0-100.0); Macrocytosis Slight; Mean Platelet Volume 8.5; Monocytes # (A) 0.4 k/uL (0-1.0); Monocytes % (A) 6 %; Neutrophils # (A) 5.6 k/uL (1.3-7.7); Neutrophils % (A) 75 %; Platelet Count 208 k/uL (150-450); RBC 4.89 m/uL (4.30-5.90); RDW 17.2 % (11.5-15.5); WBC 7.5 k/uL (3.8-10.6)
--- NOTE | 2021-10-14 18:37 | XR ---
EXAMINATION TYPE: XR chest 2V DATE OF EXAM: 10/14/2021 COMPARISON: 07/28/2021 HISTORY: Leg swelling TECHNIQUE: 2 views FINDINGS: There is no heart failure nor confluent pneumonic infiltrate. There is slight blunting of t he posterior costophrenic angles. There are chest leads. There is subsegmental atelectasis left mid l felix field. IMPRESSION: There is small posterior pleural effusions and subsegmental atelectasis which is new comp ared to old exam.
[2021-10-14 19:00] LABS: INR 1.2 (<1.2); Partial Thromboplastin Time 24.9 sec (22.0-30.0); Prothrombin Time 12.5 sec (9.0-12.0)
[2021-10-14 19:30] LABS: Appearance,Urine Clear (Clear); Bilirubin,Urine Negative (Negative); Blood,Urine Negative (Negative); Color,Urine Colorless; Glucose,Urine (UA) Negative (Negative); Ketones,Urine Negative (Negative); Leukocyte Esterase,Urine Negative (Negative); Nitrite,Urine Negative (Negative); Protein,Urine Negative (Negative); Specific Gravity,Urine 1.003 (1.001-1.035); Urobilinogen,Urine <2.0 mg/dL (<2.0)
[2021-10-14 19:32] LABS: ALT 36 U/L (4-49); AST 51 U/L (17-59); African American GFR (CKD) >90 (>60 ml/min/1.73 sqM); Albumin 3.4 g/dL (3.5-5.0); Alkaline Phosphatase 102 U/L (38-126); Amylase 68 U/L (30-110); Anion Gap 9 mmol/L; Blood Urea Nitrogen 13 mg/dL (9-20); Calcium 8.2 mg/dL (8.4-10.2); Carbon Dioxide 19 mmol/L (22-30); Chloride 108 mmol/L (98-107); Glucose 90 mg/dL (74-99); Lipase 144 U/L (23-300); Magnesium 1.8 mg/dL (1.6-2.3); Non-African American GFR(CKD) >90 (>60 ml/min/1.73 sqM); Potassium 3.9 mmol/L (3.5-5.1); Sodium 136 mmol/L (137-145); Total Bilirubin 1.6 mg/dL (0.2-1.3); Total Protein 6.4 g/dL (6.3-8.2)
[2021-10-14] MEDS ORDERED: MORPHINE SULFATE 4 MG/ML SYRINGE IVP STA (19:44)
--- NOTE | 2021-10-14 20:27 | CT ---
EXAMINATION TYPE: CT abdomen pelvis w con DATE OF EXAM: 10/14/2021 COMPARISON: 02/25/2021 HISTORY: Epigastric abdominal pain, nausea and vomiting. CT DLP: 1655.7 mGycm Automated exposure control for dose reduction was used. CONTRAST: Performed with IV Contrast, patient injected with 100ml mL of Isovue 370. Heart is enlarged. No pericardial effusion. There are small bilateral pleural effusions. Liver and spleen are intact. There is abdominal moderate ascites fluid. There is contrast reflux into the liver but could relate to some congestive heart failure. There is mild interstitial density at t he lung bases. Liver and spleen are intact of the bile ducts are not dilated. Stomach is intact. There is no pancrea tic mass. Gallbladder is intact. There is no adrenal mass. Kidneys show satisfactory contrast opacification. There is no hydronephrosi s. Ureters are not dilated. There is no retroperitoneal adenopathy. Delayed images show fairly normal renal excretion. There is no evidence of a pelvic mass. Bladder distends smoothly. No inguinal herni a. There are sigmoid diverticula. No diverticulitis. There is no evidence of a bowel obstruction. No free air. Appendix is posterior and appears normal. T here is 5 mm calculus medial left kidney. The lumbar vertebra. Intact. No bony destructive process. B melissa pelvis is intact. IMPRESSION: Small pleural effusions improved compared to old exam. Abdominal ascites increased compared to old ex am. There is probably some congestive heart failure. Normal appendix.
[2021-10-14] MEDS ORDERED: NALOXONE 0.4 MG/ML 1 ML VIAL IV PRN (20:28)
[2021-10-14] MEDS ORDERED: ONDANSETRON 4 MG/2 ML VIAL IVP PRN (20:45)
[2021-10-14] MEDS ORDERED: ALBUTEROL NEBULIZED 2.5 MG/3 ML INHALATION PRN (20:45)
[2021-10-14] MEDS: hydrALAZINE HCL 50 MG TAB PO SCH (21:18)
[2021-10-14] MEDS: FUROSEMIDE 10 MG/ML 4 ML VIAL IV SCH (21:18)
[2021-10-15] MEDS: MORPHINE SULFATE 4 MG/ML SYRINGE IV PRN ×3 (01:00→10:10)
[2021-10-15] MEDS: SYMBICORT 160-4.5 MCG INHALER INHALATION SCH ×2 (08:14→19:50)
[2021-10-15] MEDS ORDERED: lisinopriL 20 MG TAB PO SCH (09:00)
[2021-10-15] MEDS: SPIRONOLACTONE 25 MG TAB PO SCH (09:19)
[2021-10-15] MEDS: ASPIRIN 81 MG PO SCH (09:19)
[2021-10-15] MEDS: METOPROLOL SUCCINATE (ER) 100 MG TAB.ER.24H PO SCH (09:19)
[2021-10-15] MEDS: hydrALAZINE HCL 50 MG TAB PO SCH ×3 (09:19→20:58)
[2021-10-15] MEDS: FUROSEMIDE 10 MG/ML 4 ML VIAL IV SCH ×2 (09:20→20:58)
[2021-10-15 09:21] LABS: Basophils # (A) 0.07 X 10*3/uL (0.00-0.10); Eosinophils # (A) 0.25 X 10*3/uL (0.04-0.35); Eosinophils % (A) 3.4 %; HGB 14.8 g/dL (13.0-17.0); Immature Grans, Automated 0.1 %; Lymphocytes # (A) 1.37 X 10*3/uL (0.90-5.00); Lymphocytes % (A) 18.8 %; MCH 30.7 pg (27.0-32.0); MCHC 32.2 g/dL (32.0-37.0); MCV 95.4 fL (80.0-97.0); Mean Platelet Volume 10.8 fL (9.5-12.2); Monocytes # (A) 0.89 X 10*3/uL (0.20-1.00); Monocytes % (A) 12.2 %; NRBC Per 100 WBC 0 /100 WBCS (0.0-0.0); Neutrophils # (A) 4.69 X 10*3/uL (1.80-7.70); Neutrophils % (A) 64.5 %; Platelet Count 217 X 10*3/uL (140-440); RBC 4.82 X 10*6/uL (4.40-5.60); RDW 17.5 % (11.5-14.5); WBC 7.28 X 10*3/uL (4.50-10.00)
[2021-10-15 09:52] LABS: African American GFR (CKD) 90.9 (60.0-200.0); Anion Gap 10.7 mmol/L (10.00-18.00); BUN/Creat Ratio 13.55 Ratio (12.00-20.00); Blood Urea Nitrogen 14.9 mg/dL (9.0-27.0); Calcium 8.1 mg/dL (8.7-10.3); Carbon Dioxide 24.3 mmol/L (20.0-27.5); Non-African American GFR(CKD) 78.4 (60.0-200.0); Potassium 3.5 mmol/L (3.5-5.5)
--- NOTE | 2021-10-15 10:24 | P.CRDCN ---
History of Present Illness Consult date: 10/15/21 Consult reason: congestive heart failure History of present illness: The patient is a 51-year-old male who previously followed in the office with Dr. Owens. The patient has a history of noncompliance and does not follow regularly. He is currently admitted for worsening shortness of breath and orthopnea. BNP elevated with bilateral pleural effusions on imaging. ACS workup unremarkable. Patient had normal coronary angiogram in March 2019. In June 2021 the patient underwent echocardiogram which showed EF at 20-25% with moderate mitral regurgitation, severe tricuspid regurgitation, and severe pulmonary hypertension. The patient states he has not seen his technical service representative in several years, however believes he does have an appointment scheduled for November. He states he still has difficulty lying flat. He states his edema is chronic. DIAGNOSTICS: EKG shows sinus mechanism with nonspecific T-wave abnormality Telemetry shows sinus rhythm with heart rates in the 80s to 90s Chest x-ray shows bilateral pleural effusions CT of the abdomen/pelvis shows small pleural effusions improved from previous exam. Increased abdominal ascites Lab data: WBC 0.2, hemoglobin 14.8, hematocrit 46.0, platelet 217, sodium 139, potassium 3.5, BUN 14, creatinine 1.1, troponins negative 3, AST 51, ALT 36, BNP 1380 PAST MEDICAL HISTORY: Nonischemic cardiomyopathy, congestive heart failure, hypertension, drug abuse, noncompliance REVIEW OF SYSTEMS: No fever or chills. No cough or expectoration. No diaphoresis. Patient denies headache, dizziness, blurred vision, double vision. Patient denies any stomach discomfort. No nausea, vomiting. No hematochezia. No hematemesis. Denies any black stools or blood in his stools. Denies dysuria or hematuria. No muscle weakness or numbness. Positive for orthopnea and shortness of breath with minimal exertion. Positive for chronic chest pain PHYSICAL EXAMINATION: This is [id number] male in no apparent distress at the time of my examination. HEENT: Head is atraumatic, normocephalic. Pupils are equal, round. Sclerae anicteric. Conjunctivae are clear. Mucous membranes of the mouth are moist. Neck is supple. There is no jugular venous distention. No carotid bruit is heard. CHEST EXAMINATION: Lungs are diminished to auscultation. No chest wall tenderness is noted on palpation or with deep breathing. HEART EXAMINATION: Heart regular rate and rhythm. S1, S2 heard. Systolic ejection murmur. No gallops or rub. ABDOMEN: Soft, nontender. Bowel sounds are heard. No organomegaly noted. EXTREMITIES: +2-3 lower extremity pitting edema bilaterally. Palpable peripheral pulses. NEUROLOGIC EXAMINATION: Patient is awake, alert and oriented x3. FINAL ASSESSMENT AND PLAN: Acute on chronic systolic heart failure Nonischemic cardiomyopathy, last EF 25% Paroxysmal atrial fibrillation, on Xarelto Hypertension History of noncompliance PLAN: Discontinue lisinopril and start valsartan 320 mg Consider Entresto however must be delayed 72 hours after discontinuing RAFIA Repeat echocardiogram and Doppler study Further recommendations to be based upon clinical course I am dictating on behalf of Dr Vinicius Haile's history/physical and assessment/plan. Past Medical History Past Medical History: Atrial Fibrillation, COPD, Hyperlipidemia, Hypertension, Pneumonia Additional Past Medical History / Comment(s): Other HX; Costochondritis, chronic pain, chronic low back pain with bilateral sciatica, neuropathy bilateral hands/feet, migraines, kidney stones, past partial small bowel obstruction. HTN the last 10 yrs Stopped taking meds 5 yrs ago. COPD due to tobacco use. MArijuna use 3 -4 times a week - Smoke it History of Any Multi-Drug Resistant Organisms: None Reported, MRSA Date of last positivie culture/infection: 04/10/18 MDRO Source:: TOE Past Surgical History: Heart Catheterization, Orthopedic Surgery Additional Past Surgical History / Comment(s): 03/14/18 Cardiac cath-normal coronaries, L shoulder rotator cuff repair x2, cervical injection. Past Anesthesia/Blood Transfusion Reactions: No Reported Reaction Past Psychological History: Anxiety, Bipolar, Depression, Schizophrenia Additional Psychological History / Comment(s): Pt was on Mental Health 2 years ago at [facility] for suicidal ideation - Not seeing anyone currently Smoking Status: Current every day smoker Past Alcohol Use History: None Reported Additional Past Alcohol Use History / Comment(s): Started smoking at age 15- smoked 1 ppd but has cut down to one pack a day Past Drug Use History: Marijuana, Prescription Drug Abuse Additional Drug Use History / Comment(s): Pt smokes marijuana daily, and regular cigarrettes daily - Past Family History Father Family Medical History: Myocardial Infarction (LA) Additional Family Medical History / Comment(s): mi at age 35, still living Mother Family Medical History: Myocardial Infarction (LA) Additional Family Medical History / Comment(s): Mother has had at least one LA- pt unsure at what age. He has not had much contact with his mother since he was 17 yrs old. Medications and Allergies Home Medications Medication Instructions Recorded Confirmed Type Aspirin EC [Ecotrin Low Dose] 81 mg PO DAILY 05/23/21 10/14/21 History Nitroglycerin Sl Tabs [Nitrostat] 0.4 mg SL Q5M PRN 06/28/21 10/14/21 History Spironolactone [Aldactone] 25 mg PO DAILY #10 tab 07/06/21 10/14/21 Rx HYDROcodone/APAP 5-325MG [[place] 1 tab PO TID PRN 07/28/21 10/14/21 History 5-325] lisinopriL 40 mg PO DAILY 07/28/21 10/14/21 History Rivaroxaban [Xarelto] 20 mg PO W/SUPPER 30 Days #30 tab 07/31/21 10/14/21 Rx Furosemide [Lasix] 40 mg PO BID@0900,1600 30 Days #60 08/04/21 10/14/21 Rx tab Albuterol Sulfate [Proair Hfa] 2 puff INHALATION RT-QID PRN 10/14/21 10/14/21 History Budesonide-Formot 160-4.5 Mcg 2 puff INHALATION RT-BID 10/14/21 10/14/21 History [Symbicort 160-4.5 Mcg Inhaler] Metoprolol Succinate (ER) [Toprol 100 mg PO DAILY 10/14/21 10/14/21 History Xl] hydrALAZINE HCL [Apresoline] 100 mg PO TID 10/14/21 10/14/21 History Allergies Allergy/AdvReac Type Severity Reaction Status Date / Time ibuprofen [From Motrin] AdvReac Nausea & Verified 10/14/21 20:28 Vomiting simvastatin [From Zocor] AdvReac Dizziness Verified 10/14/21 20:28 Physical Exam Vitals: Vital Signs Temp Pulse Pulse Resp BP BP Pulse Ox 10/15/21 05:05 98.5 F 80 18 149/99 100 10/15/21 00:30 91 20 10/14/21 23:00 97.0 F L 91 20 144/89 99 10/14/21 20:59 97.3 F L 86 18 155/125 97 10/14/21 19:13 100 20 160/129 97 10/14/21 18:09 96 96 20 163/123 96 10/14/21 16:45 97.8 F 104 H 23 159/97 99 Intake and Output 10/14/21 10/15/21 10/15/21 22:59 06:59 14:59 Intake Total 500 Output Total 1330 2780 Balance -1330 -2280 Intake: Oral 500 Output: Urine 1330 2780 Other: Voiding Method Toilet Weight 108.862 kg 109 kg Results 10/15/21 05:57 10/15/21 05:57 Cardiac Enzymes 10/14/21 10/14/21 10/14/21 Range/Units 19:03 19:03 22:30 AST 51 (17-59) U/L Troponin I <0.012 <0.012 (0.000-0.034) ng/mL 10/15/21 Range/Units 00:40 AST (17-59) U/L Troponin I <0.012 (0.000-0.034) ng/mL Coagulation 10/14/21 Range/Units 18:05 PT 12.5 H (9.0-12.0) sec APTT 24.9 (22.0-30.0) sec CBC 10/14/21 10/15/21 Range/Units 18:05 05:57 WBC 7.5 7.28 (3.8-10.6) k/uL RBC 4.89 4.82 (4.30-5.90) m/uL Hgb 15.8 14.8 (13.0-17.5) gm/dL Hct 48.5 46.0 (39.0-53.0) % Plt Count 208 217 (150-450) k/uL Comprehensive Metabolic Panel 10/14/21 10/15/21 Range/Units 19:03 05:57 Sodium 136 L 139 (137-145) mmol/L Potassium 3.9 3.5 (3.5-5.1) mmol/L Chloride 108 H 104 (98-107) mmol/L Carbon Dioxide 19 L 24.3 (22-30) mmol/L BUN 13 14.9 (9-20) mg/dL Creatinine 0.98 1.1 (0.66-1.25) mg/dL Glucose 90 101 (74-99) mg/dL Calcium 8.2 L 8.1 L (8.4-10.2) mg/dL AST 51 (17-59) U/L ALT 36 (4-49) U/L Alkaline Phosphatase 102 (38-126) U/L Total Protein 6.4 (6.3-8.2) g/dL Albumin 3.4 L (3.5-5.0) g/dL Current Medications Generic Name Dose Route Start Last Admin Trade Name Freq PRN Reason Stop Dose Admin Albuterol Sulfate 2.5 mg 10/14/21 20:45 Albuterol Nebulized 2.5 Mg/3 Ml INHALATION RT-QID PRN Shortness Of Breath Aspirin 81 mg 10/15/21 09:00 10/15/21 09:19 Aspirin 81 Mg PO 81 mg DAILY GILES Administration Budesonide/Formoterol Fumarate 2 puff 10/15/21 08:00 10/15/21 08:14 Symbicort 160-4.5 Mcg Inhaler INHALATION 2 puff RT-BID GILES Administration Furosemide 40 mg 10/14/21 21:00 10/15/21 09:20 Furosemide 10 Mg/Ml 4 Ml Vial IV 40 mg Q12HR GILES Administration Hydralazine HCl 100 mg 10/14/21 22:00 10/15/21 09:19 Hydralazine Hcl 50 Mg Tab PO 100 mg TID GILES Administration Metoprolol Succinate 100 mg 10/15/21 09:00 10/15/21 09:19 Metoprolol Succinate (Er) 100 Mg Tab.Er.24h PO 100 mg DAILY GILES Administration Morphine Sulfate 4 mg 10/14/21 20:28 10/15/21 10:10 Morphine Sulfate 4 Mg/Ml Syringe IV 4 mg Q4HR PRN Administration Severe Pain Naloxone HCl 0.2 mg 10/14/21 20:28 Naloxone 0.4 Mg/Ml 1 Ml Vial IV Q2M PRN Opioid Reversal Ondansetron HCl 4 mg 10/14/21 20:45 Ondansetron 4 Mg/2 Ml Vial IVP Q6HR PRN Nausea And Vomiting Rivaroxaban 20 mg 10/15/21 17:30 Rivaroxaban 20 Mg Tab PO W/SUPPER [facility] Protocol Spironolactone 25 mg 10/15/21 09:00 10/15/21 09:19 Spironolactone 25 Mg Tab PO 25 mg DAILY GILES Administration Valsartan 320 mg 10/16/21 09:00 Valsartan 160 Mg Tab PO DAILY GILES Intake and Output 10/14/21 10/15/21 10/15/21 22:59 06:59 14:59 Intake Total 500 Output Total 1330 2780 Balance -1330 -2280 Intake: Oral 500 Output: Urine 1330 2780 Other: Voiding Method Toilet Weight 108.862 kg 109 kg 10/15/21 05:57 10/15/21 05:57
[2021-10-15] MEDS ORDERED: NITROGLYCERIN SL TABS 0.4 MG TAB SUBLINGUAL PRN (12:46)
[2021-10-15] MEDS: HYDROcodone/APAP 5-325MG 1 EACH TAB PO PRN ×2 (14:05→20:58)
--- NOTE | 2021-10-15 14:59 | HP ---
HISTORY AND PHYSICAL CHIEF COMPLAINT: Chest pain and shortness of breath. HISTORY OF PRESENT ILLNESS: This is another admission for this 51-year-old white male who has a longstanding history of coronary artery disease and congestive heart failure. He is fairly noncompliant in terms of taking his medications and following up in the office. He presented to the emergency room with shortness of breath and progressive lower extremity and abdominal edema. His blood pressure was markedly elevated. He stated that he was having some chest discomfort, but his troponins are normal. His EKG was normal. REVIEW OF SYSTEMS: He has had no neurologic problems, confusion, focal neurologic deficits, change in vision or the hearing, cough, hemoptysis, nausea, vomiting, hematemesis, melena, hematochezia, colitis, diverticulosis, diverticulitis, hemorrhoids, jaundice, etc. He is complaining of some mild epigastric distress. He has had no history of renal failure, dysuria, frequency, nocturia, incontinence, etc. He is not diabetic. Past medical history, family history and personal and social histories are all otherwise unremarkable and unchanged from his recent admitting and discharge summaries. PHYSICAL EXAMINATION: Blood pressure is 163/123 with a pulse of 89 and regular. Respirations were 35 and he is afebrile. In general, he appeared to be slightly edematous and he was short of breath. Skin color is normal. The head, ears, nose, mouth and throat were normal. Chest demonstrated decreased breath sounds with scattered rales. Cardiac exam demonstrated tachycardia. Abdomen is soft and nontender without visceromegaly masses. Bowel sounds are present. Extremities demonstrated 1 or 2+ edema. Neurologically he is intact. IMPRESSION: He is admitted to the hospital with diagnoses: 1. Acute congestive heart failure. 2. Chronic congestive heart failure. 3. Atherosclerotic cardiomyopathy. 4. Narcotic abuse. 5. Hypocalcemia. PLAN: 1. Bedrest. 2. IV fluids. 3. Serial EKGs and enzymes. 4. Diuresis. 5. Cardiology consult. MMODL / IJN: [id number] /
--- NOTE | 2021-10-15 15:10 | PN ---
PROGRESS NOTE DATE OF SERVICE: 10/15/2021. CHIEF COMPLAINT: Congestive heart failure. HISTORY OF PRESENT ILLNESS: This gentleman is only feeling slightly better. He is still quite short of breath. PHYSICAL EXAMINATION: His chest demonstrates poor breath sounds at the bases posteriorly. Cardiac exam is normal with sinus rhythm. Abdomen is soft. Legs are still somewhat edematous. IMPRESSION: 1. Acute congestive heart failure. 2. Chronic congestive heart failure. 3. Atherosclerotic cardiovascular disease and coronary artery disease. PLAN: 1. Continue diuresis. 2. Await recommendations from Cardiology. MMODL / IJN: [id number] /
[2021-10-15] MEDS: RIVAROXABAN 20 MG TAB PO SCH (17:37)
[2021-10-16] MEDS: HYDROcodone/APAP 5-325MG 1 EACH TAB PO PRN ×3 (05:49→23:34)
[2021-10-16] MEDS: ASPIRIN 81 MG PO SCH (08:42)
[2021-10-16] MEDS: METOPROLOL SUCCINATE (ER) 100 MG TAB.ER.24H PO SCH ×2 (08:42→10:55)
[2021-10-16] MEDS: VALSARTAN 160 MG TAB PO SCH ×2 (08:42→08:51)
[2021-10-16] MEDS: hydrALAZINE HCL 50 MG TAB PO SCH ×4 (08:43→23:10)
[2021-10-16] MEDS: SPIRONOLACTONE 25 MG TAB PO SCH (08:43)
[2021-10-16] MEDS: FUROSEMIDE 10 MG/ML 4 ML VIAL IV SCH ×2 (08:43→20:12)
[2021-10-16] MEDS: SYMBICORT 160-4.5 MCG INHALER INHALATION SCH ×2 (09:13→20:41)
--- NOTE | 2021-10-16 11:03 | P.PN ---
Subjective The patient is a 51-year-old male with a past medical history of hypertension, dyslipidemia, paroxysmal atrial fibrillation on Xarelto, congestive heart failure with reduced ejection fraction, nonischemic cardiomyopathy, noncompliance, chronic nicotine dependenece, prescription drug abuse, marijuana use, Heroin abuse, COPD. He didn't follow up with Dr. Burleson in the past but has not followed up since 2019. We are following the patient for congestive heart failure. Patient presents to the emergency department with complaints of shortness of breath, orthopnea. BNP elevated with bilateral pleural effusions on imaging. ACS workup unremarkable. Patient had normal cardiac catheterization in March 2021 In June 2021 the patient underwent echocardiogram which showed EF at 20-25% with moderate mitral regurgitation, severe tricuspid regurgitation, and severe pulmonary hypertension. 10/16/2021 Patient seen and examined at bedside, he continues to have shortness of breath, states he is not feeling well. He also continues to have generalized pain chest, abdomen. -3610 fluid balance over the past 24 hours. Weight stable. Patient is currently maintained on IV Lasix 40 mg twice a day, aspirin 80 mg daily, hydralazine 100 mg 3 times a day, metoprolol succinate 100 mg daily, Xarelto 20 mg nightly, spironolactone 25 mg daily. Yesterday he was transitioned to valsartan 320 mg daily. Lab data: Sodium 139, potassium 3.5, BUN 14, serum creatinine 1.1 PHYSICAL EXAMINATION: This is a 51-year-old male in no apparent distress at the time of my examination. HEENT: Neck is supple. There is no jugular venous distention. No carotid bruit is heard. CHEST EXAMINATION: Lungs are diminished to auscultation. No chest wall tenderness is noted on palpation or with deep breathing. HEART EXAMINATION: Heart regular rate and rhythm. S1, S2 heard. Systolic ejection murmur. No gallops or rub. ABDOMEN: Soft, nontender. Bowel sounds are heard. No organomegaly noted. EXTREMITIES: +2-3 lower extremity pitting edema bilaterally. Palpable peripheral pulses. NEUROLOGIC EXAMINATION: Patient is awake, alert and oriented x3. FINAL ASSESSMENT AND PLAN: Acute on chronic heart failure with reduced ejection fraction Nonischemic cardiomyopathy, last EF 25% Paroxysmal atrial fibrillation, on Xarelto Hypertension History of noncompliance Chronic nicotine dependenece History of prescription drug abuse Marijuana use History of Heroin abuse COPD PLAN: Continue IV Lasix 40mg BID for additional 24 hours Monitor I/Os daily weights renal function and electrolytes Continue home hydralazine, metoprolol, spironolacotne Continue anticoagulation with Xarelto Continue Valsartan Consider Entresto however must be delayed 72 hours after discontinuing RAFIA Repeat echocardiogram and Doppler study Further recommendations to be based upon clinical course Nurse practitioner note has been reviewed by physician. Signing provider agrees with the documented findings, assessment, and plan of care. Objective - Vital Signs Vital signs: Vital Signs Temp 97.4 F L 10/16/21 06:27 Pulse 60 10/16/21 08:48 Resp 16 10/16/21 06:27 BP 114/73 10/16/21 08:48 Pulse Ox 99 10/16/21 06:27 FiO2 Intake & Output 10/15/21 10/16/21 10/16/21 18:59 06:59 18:59 Intake Total 1040 Output Total 3100 1000 Balance -3100 40 Weight 109 kg Intake: Oral 1040 Output: Urine 3100 1000 Other: Voiding Method Toilet Urinal - Labs CBC & Chem 7: 10/15/21 05:57 10/15/21 05:57
[2021-10-16] MEDS: RIVAROXABAN 20 MG TAB PO SCH (17:23)
--- NOTE | 2021-10-16 18:13 | PN ---
PROGRESS NOTE CHIEF COMPLAINT: Congestive heart failure and chest pain. HISTORY OF PRESENT ILLNESS: This gentleman is about the same. He has been seen by Cardiology and is being evaluated. Because of his noncompliance and the fact that he is diuresing and doing better, it is not likely that Cardiology will plan anything significant in terms of interventions. He is complaining of a lot of pain in the back and legs. This is usual for him, in that he is always angling for more analgesia. PHYSICAL EXAMINATION: Chest is improving with fewer rales. The cardiac exam is normal. Abdomen is soft, nontender. IMPRESSION: 1. Acute congestive heart failure. 2. Chronic congestive heart failure. 3. Atherosclerotic cardiomyopathy. PLAN: Continue with diuresis. Resist increasing his narcotic medication as per his request. TARUN / CINTHYAN: [id number] /
[2021-10-17 06:44] LABS: African American GFR (CKD) >90 (>60 ml/min/1.73 sqM); Anion Gap 5 mmol/L; Blood Urea Nitrogen 16 mg/dL (9-20); Calcium 7.9 mg/dL (8.4-10.2); Carbon Dioxide 25 mmol/L (22-30); Chloride 106 mmol/L (98-107); Glucose 99 mg/dL (74-99); Magnesium 1.7 mg/dL (1.6-2.3); Non-African American GFR(CKD) >90 (>60 ml/min/1.73 sqM); Potassium 3.6 mmol/L (3.5-5.1); Sodium 136 mmol/L (137-145)
[2021-10-17] MEDS: ASPIRIN 81 MG PO SCH (08:22)
[2021-10-17] MEDS: SPIRONOLACTONE 25 MG TAB PO SCH (08:22)
[2021-10-17] MEDS: HYDROcodone/APAP 5-325MG 1 EACH TAB PO PRN (08:23)
[2021-10-17] MEDS: VALSARTAN 160 MG TAB PO SCH (08:23)
[2021-10-17] MEDS: FUROSEMIDE 10 MG/ML 4 ML VIAL IV SCH (08:23)
[2021-10-17] MEDS: hydrALAZINE HCL 50 MG TAB PO SCH (08:23)
[2021-10-17] MEDS: METOPROLOL SUCCINATE (ER) 100 MG TAB.ER.24H PO SCH (08:23)
[2021-10-17] MEDS: SYMBICORT 160-4.5 MCG INHALER INHALATION SCH (09:07)
[2021-10-17] MEDS ORDERED: metOLazone 5 MG TAB PO SCH (10:00)
--- NOTE | 2021-10-17 10:03 | CA ---
Transthoracic Echo Report Name: Micky Webb Age: 51 Gender: M : 1970 Exam Date: 10/16/2021 10:00 Exam Location: [facility] Echo Ht (in): 69 Wt (lb): 240 Ordering Physician: Jayme Senior MD Attending/Referring Phys: Truck Farmer Viviana Kerr RDCS Procedure CPT: Indications: Heart failure Cardiac Hx: Technical Quality: Good Contrast 1: Total Dose (mL): Contrast 2: Total Dose (mL): MEASUREMENTS (Male / Female) Normal Values 2D ECHO LV Diastolic Diameter PLAX 5.1 cm 4.2 - 5.9 / 3.9 - 5.3 cm LV Systolic Diameter PLAX 4.8 cm IVS Diastolic Thickness 1.4 cm 0.6 - 1.0 / 0.6 - 0.9 cm LVPW Diastolic Thickness 1.3 cm 0.6 - 1.0 / 0.6 - 0.9 cm LV Relative Wall Thickness 0.5 RV Internal Dim ED PLAX 4.6 cm LA Systolic Diameter LX 4.1 cm 3.0 - 4.0 / 2.7 - 3.8 cm LA Volume 89.2 cm??? 18 - 58 / 22 - 52 cm??? M-MODE Aortic Root Diameter MM 3.4 cm MV E Point Septal Separation 1.4 cm AV Cusp Separation MM 2.3 cm DOPPLER AV Peak Velocity 97.3 cm/s AV Peak Gradient 3.8 mmHg MV Area PHT 4.0 cm??? Mitral E Point Velocity 75.9 cm/s Mitral A Point Velocity 48.7 cm/s Mitral E to A Ratio 1.6 MV Deceleration Time 189.4 ms MV E' Velocity 6.7 cm/s Mitral E to MV E' Ratio 11.3 TR Peak Velocity 250.0 cm/s TR Peak Gradient 25.0 mmHg Right Ventricular Systolic Press 40.0 mmHg FINDINGS Left Ventricle Left ventricular ejection fraction is estimated at 30-35 %. Left ventricular cavity size normal. Moderate concentric left ventricular hypertrophy. Right Ventricle Severe right ventricular dilatation. Mild pulmonary hypertension. Right Atrium Normal right atrial size. Left Atrium Severely increased left atrial volume. Mildly increased left atrial area. No evidence for an atrial septal defect. Mitral Valve Mild mitral regurgitation. Mitral annular calcification. No evidence for mitral valve prolapse. Aortic Valve Trileaflet aortic valve. No aortic valve stenosis or regurgitation. Tricuspid Valve Mild tricuspid regurgitation. Pulmonic Valve Structurally normal pulmonic valve. Pericardium Normal pericardium. No pericardial effusion. Aorta Normal size aortic root and proximal ascending aorta. CONCLUSIONS Left ventricle is at upper limits of normal with global decrease in contractility estimated ejection fraction of about 30-35%. There is a right ventricular enlargement noted. There is mild mitral and tricuspid insufficiency with mild pulmonary hypertension. No pericardial effusion Previewed by: Dr. Diana Vila MD (Electronically Signed) Final Date: 17 October 2021 10:02
--- NOTE | 2021-10-17 10:13 | P.PN ---
Subjective The patient is a 51-year-old male with a past medical history of hypertension, dyslipidemia, paroxysmal atrial fibrillation on Xarelto, congestive heart failure with reduced ejection fraction, nonischemic cardiomyopathy, noncompliance, chronic nicotine dependenece, prescription drug abuse, marijuana use, Heroin abuse, COPD. He didn't follow up with Dr. Burleson in the past but has not followed up since 2019. We are following the patient for congestive heart failure. Patient presents to the emergency department with complaints of shortness of breath, orthopnea. BNP elevated with bilateral pleural effusions on imaging. ACS workup unremarkable. Patient had normal cardiac catheterization in March 2021 In June 2021 the patient underwent echocardiogram which showed EF at 20-25% with moderate mitral regurgitation, severe tricuspid regurgitation, and severe pulmonary hypertension. 10/17/2021 Patient seen and examined at bedside, he continues to have generalized pain. Patient continues to have lower extremity edema but significantly improved. He states he does not feel well, main complaints is his pain. Lungs are clear. - 3060 fluid balance over the past 24 hours. Weight decreased Patient is currently maintained on IV Lasix 40 mg twice a day, aspirin 80 mg daily, hydralazine 100 mg 3 times a day, metoprolol succinate 100 mg daily, Xarelto 20 mg nightly, spironolactone 25 mg daily. Yesterday he was tr ansitioned to valsartan 320 mg daily. Echocardiogram revealed an EF of 3035%, moderate concentric LVH, right ventricular enlargement, mild mitral and tricuspid regurgitation, mild pulmonary hypertension. Lab data: Sodium 6, potassium 2.6, BUN 16, serum crit 0.9, magnesium 1.7 PHYSICAL EXAMINATION: This is a 51-year-old male in no apparent distress at the time of my examination. HEENT: Neck is supple. There is no jugular venous distention. No carotid bruit is heard. CHEST EXAMINATION: Lungs are clear bilaterally to auscultation. No chest wall tenderness is noted on palpation or with deep breathing. HEART EXAMINATION: Heart regular rate and rhythm. S1, S2 heard. Systolic ejection murmur. No gallops or rub. ABDOMEN: Soft, nontender. Bowel sounds are heard. No organomegaly noted. EXTREMITIES: +2-3 lower extremity pitting edema bilaterally. Palpable peripheral pulses. NEUROLOGIC EXAMINATION: Patient is awake, alert and oriented x3. FINAL ASSESSMENT AND PLAN: Acute on chronic heart failure with reduced ejection fraction Nonischemic cardiomyopathy, EF 30-35% Paroxysmal atrial fibrillation, on Xarelto Hypertension History of noncompliance Chronic nicotine dependenece History of prescription drug abuse Marijuana use History of Heroin abuse COPD PLAN: Transition to PO Lasix 60mg morning, 40mg at night Add metolazone 5mg Every other day Continue home hydralazine, metoprolol, spironolacotne Continue anticoagulation with Xarelto Continue Valsartan Consider Entresto as an outpatient however must be delayed 72 hours after discontinuing RAFIA Recommend repeat BMP after discharge, prescription given Close follow up with Dr. Burleson, patient has a scheduled follow up on 10/25/21. Nurse practitioner note has been reviewed by physician. Signing provider agrees with the documented findings, assessment, and plan of care. Objective - Vital Signs Vital signs: Vital Signs Temp 98.5 F 10/17/21 05:00 Pulse 98 10/17/21 08:35 Resp 16 10/17/21 05:00 BP 158/100 10/17/21 08:35 Pulse Ox 99 10/17/21 05:00 FiO2 Intake & Output 10/16/21 10/17/21 10/17/21 18:59 06:59 18:59 Intake Total 360 Balance 360 Weight 108.3 kg Intake: Oral 360 Other: Voiding Method Toilet Urinal # Voids 3 - Labs CBC & Chem 7: 10/15/21 05:57 10/17/21 05:57 Labs: Abnormal Lab Results - Last 24 Hours (Table) 10/17/21 Range/Units 05:57 Sodium 136 L (137-145) mmol/L Calcium 7.9 L (8.4-10.2) mg/dL
[2021-10-17 14:00] VITALS: BP 119/74; PULSE 59; RESP 19; TEMP 97.8
--- NOTE | 2021-10-17 22:10 | DS ---
DISCHARGE SUMMARY CHIEF COMPLAINT: Chest pain and shortness of breath. HISTORY OF PRESENT ILLNESS AND PHYSICAL EXAMINATION: Details of this man's history and physical can be found in the initial workup. LABORATORY STUDIES: While he was in the hospital he had laboratory studies, details of which can be found in the laboratory section of his chart. COURSE IN THE HOSPITAL: After admission he was placed on bedrest and started on intravenous fluids and he was seen by Cardiology. Diuresis was begun. After evaluation, Cardiology felt that he could be discharged. He was a very difficult management problem, in that he continued to harass the nurses and me for more and more narcotic analgesics, and he was told that we could not do this. He was stable and discharged on October 17. He will go home on his usual activity and diet as well as medications, and he will be seen in the office in a day or two. FINAL DIAGNOSIS: 1. Chest pain. 2. Acute congestive heart failure. 3. Chronic congestive heart failure with reduced ejection fraction. 4. Narcotic abuser. 5. Chronic obstructive pulmonary disease. OPERATIONS: None. CONSULTATION: Cardiology. He is improved. MMODL / IJN: [id number] /
[2021-10-18] MEDS ORDERED: FUROSEMIDE 20 MG TAB PO SCH (09:00)
[2021-10-18] MEDS ORDERED: FUROSEMIDE 40 MG TAB PO SCH (16:00)
== END 2021-10-17 17:15 | disposition home or self-care (01) | DRG 291 ==
LOC: EC 16:38 → 5NMEDONC 20:28
PROVIDERS: ADMIT Family Medicine; ATTEND Family Medicine
DX: I11.0 Hypertensive heart disease with heart failure (principal); I50.23 Acute on chronic systolic (congestive) heart failure; J98.11 Atelectasis; R18.8 Other ascites; I42.8 Other cardiomyopathies; I25.10 Atherosclerotic heart disease of native coronary artery without angina pectoris; I27.20 Pulmonary hypertension, unspecified; I48.0 Paroxysmal atrial fibrillation; F20.9 Schizophrenia, unspecified; G89.29 Other chronic pain; F31.9 Bipolar disorder, unspecified; I08.1 Rheumatic disorders of both mitral and tricuspid valves; J44.9 Chronic obstructive pulmonary disease, unspecified; E80.6 Other disorders of bilirubin metabolism; M54.32 Sciatica, left side; M54.31 Sciatica, right side; R07.9 Chest pain, unspecified; Z76.5 Malingerer [conscious simulation]; F41.9 Anxiety disorder, unspecified; E83.51 Hypocalcemia; F11.10 Opioid abuse, uncomplicated; Z28.21 Immunization not carried out because of patient refusal; Z87.19 Personal history of other diseases of the digestive system; F12.10 Cannabis abuse, uncomplicated; Z86.14 Personal history of Methicillin resistant Staphylococcus aureus infection; Z98.890 Other specified postprocedural states; Z87.442 Personal history of urinary calculi; Z79.01 Long term (current) use of anticoagulants; F17.210 Nicotine dependence, cigarettes, uncomplicated; Z91.51 Personal history of suicidal behavior; E78.5 Hyperlipidemia, unspecified; Z79.51 Long term (current) use of inhaled steroids; Z79.82 Long term (current) use of aspirin; Z79.899 Other long term (current) drug therapy; Z82.49 Family history of ischemic heart disease and other diseases of the circulatory system; Z91.19 Patient's noncompliance with other medical treatment and regimen; Z91.14 Patient's other noncompliance with medication regimen; Z88.6 Allergy status to analgesic agent; Z88.8 Allergy status to other drugs, medicaments and biological substances
CPT/HCPCS: 36415; 71046; 74177; 80048; 80053; 81003; 82150; 83690; 83735; 83880; 84484; 85025; 85610; 85730; 93005; 93306; 94640; 96374; 96375; 96376; 99285

== ENCOUNTER 2021-10-26 15:27 | Emergency (ER) | payer OTHER ==
[2021-10-26 17:16] VITALS: TEMP 98
[2021-10-27] MEDS ORDERED: HYDROcodone/APAP 5-325MG 1 EACH TAB PO STA (00:21)
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
[2021-10-27 01:11] LABS: ALT 25 U/L (4-49); AST 36 U/L (17-59); African American GFR (CKD) >90 (>60 ml/min/1.73 sqM); Albumin 3.8 g/dL (3.5-5.0); Alkaline Phosphatase 99 U/L (38-126); Anion Gap 6 mmol/L; Blood Urea Nitrogen 14 mg/dL (9-20); Calcium 8.6 mg/dL (8.4-10.2); Carbon Dioxide 22 mmol/L (22-30); Chloride 107 mmol/L (98-107); Glucose 78 mg/dL (74-99); Magnesium 1.9 mg/dL (1.6-2.3); Non-African American GFR(CKD) 86 (>60 ml/min/1.73 sqM); Potassium 3.7 mmol/L (3.5-5.1); Sodium 135 mmol/L (137-145); Total Bilirubin 0.8 mg/dL (0.2-1.3); Total Protein 6.7 g/dL (6.3-8.2)
--- NOTE | 2021-10-27 01:40 | XR ---
EXAM: XR Chest, 2 Views CLINICAL HISTORY: ITS.REASON XR Reason: Chest Pain TECHNIQUE: Frontal and lateral views of the chest. COMPARISON: No relevant prior studies available. FINDINGS: Lungs: No significant abnormality. No consolidation. Pleural space: No significant abnormality. No pneumothorax. Heart: No significant abnormality. No cardiomegaly. Mediastinum: Mildly enlarged cardiomediastinal silhouette. Bones/joints: No acute osseous abnormality. IMPRESSION: Mildly enlarged cardiomediastinal silhouette.
[2021-10-27 01:45] LABS: Anisocytosis Slight; Basophils # (A) 0.1 k/uL (0-0.2); Basophils % (A) 1 %; Eosinophils # (A) 0.1 k/uL (0-0.7); Eosinophils % (A) 2 %; HCT 51.8 % (39.0-53.0); HGB 16.6 gm/dL (13.0-17.5); Lymphocytes # (A) 1.5 k/uL (1.0-4.8); Lymphocytes % (A) 18 %; MCH 31.9 pg (25.0-35.0); MCV 99.9 fL (80.0-100.0); Macrocytosis Slight; Mean Platelet Volume 9.4; Monocytes # (A) 1.2 k/uL (0-1.0); Monocytes % (A) 14 %; Neutrophils # (A) 5.3 k/uL (1.3-7.7); Neutrophils % (A) 63 %; Platelet Count 178 k/uL (150-450); RBC 5.19 m/uL (4.30-5.90); RDW 16.3 % (11.5-15.5); WBC 8.4 k/uL (3.8-10.6)
--- NOTE | 2021-10-27 02:16 | CT ---
EXAM: CT Abdomen and Pelvis With Intravenous Contrast CLINICAL HISTORY: ITS.REASON CT Reason: trauma TECHNIQUE: Axial computed tomography images of the abdomen and pelvis with intravenous contrast. CTDI is 31.9 mGy and DLP is 1336.7 mGy-cm. This CT exam was performed using one or more of the following dose reduction techniques: automated exposure control, adjustment of the mA and/or kV according to patient size, and/or use of iterative reconstruction technique. COMPARISON: None FINDINGS: Lung bases: Unremarkable. No mass. No consolidation. Heart: Mild cardiomegaly. Trace pericardial fluid. ABDOMEN: Liver: Reflux of contrast into the hepatic veins is suggestive of elevated right heart pressures. Mild hepatomegaly. Gallbladder and bile ducts: Nonspecific prominence of the gallbladder wall. Further evaluation could be performed with ultrasound if clinically indicated. No calcified stones. Pancreas: Unremarkable. No mass. No ductal dilation. Spleen: Unremarkable. No splenomegaly. Adrenals: Unremarkable. No mass. Kidneys and ureters: Small nonobstructing left renal stone. No hydronephrosis or ureteral stone. No hydronephrosis or obstructing stone. Stomach and bowel: Evaluation of the stomach is limited by under distention. Mild diverticulosis without evidence of diverticulitis. No small bowel obstruction. PELVIS: Appendix: Normal appendix. Bladder: Bladder wall thickening is nonspecific. Please correlate with urinalysis if concerned for cystitis. Reproductive: Unremarkable as visualized. ABDOMEN and PELVIS: Intraperitoneal space: Small amount of ascites. No free air. Bones/joints: Mild degenerative changes of the spine. No acute fracture. No dislocation. Soft tissues: Small fat and fluid containing umbilical hernia. Body wall edema. Vasculature: See above. Lymph nodes: Nonspecific prominent retroperitoneal lymph nodes. IMPRESSION: 1. Small amount of ascites. 2. Bladder wall thickening is nonspecific. Please correlate with urinalysis if concerned for cystitis. 3. Small nonobstructing left renal stone. No hydronephrosis or ureteral stone. 4. No acute fracture.
[2021-10-27 04:01] VITALS: BP 142/64; PULSE 56; RESP 16
== END 2021-10-27 04:10 | disposition home or self-care (01) ==
LOC: EC 15:27
DX: S20.219A Contusion of unspecified front wall of thorax, initial encounter (principal); R51.9 Headache, unspecified; W50.0XXA Accidental hit or strike by another person, initial encounter
CPT/HCPCS: 36415; 93005; 80053; 83735; 84484; 85025; 71046; 74177; 99284; Q9967

== ENCOUNTER 2021-10-30 19:17 | Emergency (ER) | payer OTHER ==
[2021-10-30 22:14] VITALS: TEMP 98.2
--- NOTE | 2021-10-31 01:39 | ED ---
Recheck HPI - General Chief Complaint: Chest Pain Stated Complaint: Chest Pain, Abdominal Pain, Swelling Legs Time Seen by Provider: 10/30/21 23:34 Source: patient, RN notes reviewed, old records reviewed Mode of arrival: ambulatory Limitations: no limitations - History of Present Illness Initial Comments: This is a 51-year-old male DF for evaluation. Patient's well-known to our facility, he presents today for evaluation of bodyaches body pains leg pain leg swelling. No chest pain no shortness of breath no nausea no vomiting recent does state it is occasional chest pain currently is pain all over his body. MD Complaint: medication refill request -: days(s) Returns Today for: persistent/worsening pain related to initial visit Symptoms Since Prior Visit: worsening pain Associated Symptoms: chest pain, abdominal pain Treatments Prior to Arrival: Given Pain Meds on - Related Data Home Medications Medication Instructions Recorded Confirmed Aspirin EC [Ecotrin Low Dose] 81 mg PO DAILY 05/23/21 10/14/21 Nitroglycerin Sl Tabs [Nitrostat] 0.4 mg SL Q5M PRN 06/28/21 10/14/21 HYDROcodone/APAP 5-325MG [[place] 1 tab PO TID PRN 07/28/21 10/14/21 5-325] Albuterol Sulfate [Proair Hfa] 2 puff INHALATION RT-QID PRN 10/14/21 10/14/21 Budesonide-Formot 160-4.5 Mcg 2 puff INHALATION RT-BID 10/14/21 10/14/21 [Symbicort 160-4.5 Mcg Inhaler] Metoprolol Succinate (ER) [Toprol 100 mg PO DAILY 10/14/21 10/14/21 XL] hydrALAZINE HCL [Apresoline] 100 mg PO TID 10/14/21 10/14/21 Previous Rx's Medication Instructions Recorded Spironolactone [Aldactone] 25 mg PO DAILY #10 tab 07/06/21 Rivaroxaban [Xarelto] 20 mg PO W/SUPPER 30 Days #30 tab 07/31/21 Furosemide [Lasix] 40 mg PO BID@0900,1600 30 Days #60 08/04/21 tab Valsartan [Diovan] 320 mg PO DAILY #10 tab 10/17/21 metOLazone [Zaroxolyn] 5 mg PO DAILY #10 tab 10/17/21 Allergies Allergy/AdvReac Type Severity Reaction Status Date / Time ibuprofen [From Motrin] AdvReac Nausea & Verified 11/06/21 13:21 Vomiting simvastatin [From Zocor] AdvReac Dizziness Verified 11/06/21 13:21 Review of Systems ROS Statement: Those systems with pertinent positive or pertinent negative responses have been documented in the HPI. ROS Other: All systems not noted in ROS Statement are negative. Past Medical History Past Medical History: Atrial Fibrillation, COPD, Hyperlipidemia, Hypertension, Pneumonia Additional Past Medical History / Comment(s): Other HX; Costochondritis, chronic pain, chronic low back pain with bilateral sciatica, neuropathy bilateral hands/feet, migraines, kidney stones, past partial small bowel obstruction. HTN the last 10 yrs Stopped taking meds 5 yrs ago. COPD due to tobacco use. MArijuna use 3 -4 times a week - Smoke it History of Any Multi-Drug Resistant Organisms: None Reported, MRSA Date of last positivie culture/infection: 04/10/18 MDRO Source:: TOE Past Surgical History: Heart Catheterization, Orthopedic Surgery Additional Past Surgical History / Comment(s): 03/14/18 Cardiac cath-normal coronaries, L shoulder rotator cuff repair x2, cervical injection. Past Anesthesia/Blood Transfusion Reactions: No Reported Reaction Past Psychological History: Anxiety, Bipolar, Depression, Schizophrenia Smoking Status: Current every day smoker Past Alcohol Use History: None Reported Past Drug Use History: Marijuana, Prescription Drug Abuse - Past Family History Father Family Medical History: Myocardial Infarction (MS) Additional Family Medical History / Comment(s): mi at age 35, still living Mother Family Medical History: Myocardial Infarction (MS) Additional Family Medical History / Comment(s): Mother has had at least one MS- pt unsure at what age. He has not had much contact with his mother since he was 17 yrs old. General Exam Limitations: no limitations General appearance: alert, in no apparent distress Head exam: Present: atraumatic, normocephalic, normal inspection Eye exam: Present: normal appearance, PERRL, EOMI. Absent: scleral icterus, conjunctival injection, periorbital swelling ENT exam: Present: normal exam, mucous membranes moist Neck exam: Present: normal inspection. Absent: tenderness, meningismus, lymphadenopathy Respiratory exam: Present: normal lung sounds bilaterally. Absent: respiratory distress, wheezes, rales, rhonchi, stridor Cardiovascular Exam: Present: regular rate, normal rhythm, normal heart sounds. Absent: systolic murmur, diastolic murmur, rubs, gallop, clicks GI/Abdominal exam: Present: soft, normal bowel sounds. Absent: distended, tenderness, guarding, rebound, rigid Extremities exam: Present: normal inspection, full ROM, normal capillary refill. Absent: tenderness, pedal edema, joint swelling, calf tenderness Back exam: Present: normal inspection Neurological exam: Present: alert, oriented X3, CN II-XII intact Psychiatric exam: Present: normal affect, normal mood Skin exam: Present: warm, dry, intact, normal color. Absent: rash Course Vital Signs 10/30/21 10/31/21 10/31/21 22:12 02:06 02:11 Temperature 98.2 F Pulse Rate 83 83 83 Pulse Rate [ Bilateral Radial] Respiratory 18 Rate Blood Pressure 188/118 O2 Sat by Pulse 100 Oximetry 10/31/21 10/31/21 02:45 03:45 Temperature Pulse Rate 84 Pulse Rate [ 80 Bilateral Radial] Respiratory 16 Rate Blood Pressure 180/144 O2 Sat by Pulse Oximetry - Reevaluation(s) Reevaluation #1: 10/31/21 Medical records reviewed Reevaluation #2: 10/31/21 Patient informed of results and questions answered Reevaluation #3: 10/31/21 Patient currently feels improved Medical Decision Making - Medical Decision Making 51 male to the emergency department for evaluation patient presents today for evaluation of pain. Patient's well-known to our emergency department, patient feels improved currently and can be discharged home - EKG Data -: EKG Interpreted by Me (EKG sinus rhythm 83 [place] 188 QRS 101 QTc 451) - Radiology Data Radiology results: report reviewed (Chest x-rays negative for acute disease), image reviewed Disposition Clinical Impression: Intractable abdominal pain, Atypical chest pain Disposition: HOME SELF-CARE Condition: Fair Instructions (If sedation given, give patient instructions): Chest Pain (ED) Is patient prescribed a controlled substance at d/c from ED?: No Referrals: Clif Glasgow MD [Primary Care Provider] - 1-2 days Time of Disposition: 03:30
[2021-10-31] MEDS ORDERED: dexAMETHasone 2 MG TAB PO STA (01:40)
[2021-10-31] MEDS ORDERED: HYDROmorphone 1 MG/ML 1 ML SYRINGE IM STA (01:40)
[2021-10-31] MEDS ORDERED: IPRATROPIUM-ALBUTEROL 3 ML NEB INHALATION STA (01:40)
--- NOTE | 2021-10-31 02:53 | XR ---
EXAM: XR Chest, 1 View CLINICAL HISTORY: ITS.REASON XR Reason: cp TECHNIQUE: Frontal view of the chest. COMPARISON: 10.27.21 FINDINGS: Lungs: No consolidation or mass. Pleural space: No acute findings Heart: cardiomegaly. Bones/joints: No acute findings. IMPRESSION: No acute cardiopulmonary process.
[2021-10-31] MEDS ORDERED: HYDROmorphone 2 MG TAB PO STA (03:00)
[2021-10-31 03:52] VITALS: BP 180/144; RESP 16
[2021-10-31 03:54] VITALS: PULSE 80
== END 2021-10-31 03:55 | disposition home or self-care (01) ==
LOC: EC 19:17
DX: R07.89 Other chest pain (principal); E78.5 Hyperlipidemia, unspecified; I10 Essential (primary) hypertension; F17.200 Nicotine dependence, unspecified, uncomplicated; Z82.49 Family history of ischemic heart disease and other diseases of the circulatory system; Z88.6 Allergy status to analgesic agent; Z88.8 Allergy status to other drugs, medicaments and biological substances
CPT/HCPCS: 94640; 93005; 71045; 99285; 96372; J1170; J8540

== ENCOUNTER 2021-11-02 23:41 | Emergency (ER) | payer OTHER ==
[2021-11-03 00:02] VITALS: BP 158/112; PULSE 100; RESP 18; TEMP 99.2
--- NOTE | 2021-11-03 00:27 | ED ---
Male Urogenital HPI - General Chief complaint: Urogenital Stated complaint: abd pain Source: patient, RN notes reviewed, old records reviewed Mode of arrival: wheelchair Limitations: no limitations - History of Present Illness Initial comments: This is a 51-year-old male DF for evaluation. Patient Dese for evaluation regarding score. Patient is well-known to our facility for pain chronic pain TYPE symptoms or pain. This is a 51 complaint of scrotal pain. Area. No nausea no vomiting no other MD Complaint: testicle pain, testicle swelling -: hour(s) Location: penis, right testicle, left testicle Radiation: none Severity: moderate Severity scale (1-10): 7 Quality: burning, sharp Consistency: intermittent Improves with: none Worsens with: none new medication Reports: swelling - Related Data Home Medications Medication Instructions Recorded Confirmed Aspirin EC [Ecotrin Low Dose] 81 mg PO DAILY 05/23/21 10/14/21 Nitroglycerin Sl Tabs [Nitrostat] 0.4 mg SL Q5M PRN 06/28/21 10/14/21 HYDROcodone/APAP 5-325MG [[place] 1 tab PO TID PRN 07/28/21 10/14/21 5-325] Albuterol Sulfate [Proair Hfa] 2 puff INHALATION RT-QID PRN 10/14/21 10/14/21 Budesonide-Formot 160-4.5 Mcg 2 puff INHALATION RT-BID 10/14/21 10/14/21 [Symbicort 160-4.5 Mcg Inhaler] Metoprolol Succinate (ER) [Toprol 100 mg PO DAILY 10/14/21 10/14/21 XL] hydrALAZINE HCL [Apresoline] 100 mg PO TID 10/14/21 10/14/21 Previous Rx's Medication Instructions Recorded Spironolactone [Aldactone] 25 mg PO DAILY #10 tab 07/06/21 Rivaroxaban [Xarelto] 20 mg PO W/SUPPER 30 Days #30 tab 07/31/21 Furosemide [Lasix] 40 mg PO BID@0900,1600 30 Days #60 08/04/21 tab Valsartan [Diovan] 320 mg PO DAILY #10 tab 10/17/21 metOLazone [Zaroxolyn] 5 mg PO DAILY #10 tab 10/17/21 Allergies Allergy/AdvReac Type Severity Reaction Status Date / Time ibuprofen [From Motrin] AdvReac Nausea & Verified 10/30/21 22:14 Vomiting simvastatin [From Zocor] AdvReac Dizziness Verified 10/30/21 22:14 Review of Systems ROS Statement: Those systems with pertinent positive or pertinent negative responses have been documented in the HPI. ROS Other: All systems not noted in ROS Statement are negative. Past Medical History Past Medical History: Atrial Fibrillation, COPD, Hyperlipidemia, Hypertension, Pneumonia Additional Past Medical History / Comment(s): Other HX; Costochondritis, chronic pain, chronic low back pain with bilateral sciatica, neuropathy bilateral hands/feet, migraines, kidney stones, past partial small bowel obstruction. HTN the last 10 yrs Stopped taking meds 5 yrs ago. COPD due to tobacco use. MArijuna use 3 -4 times a week - Smoke it History of Any Multi-Drug Resistant Organisms: MRSA Date of last positivie culture/infection: 04/10/18 MDRO Source:: TOE Past Surgical History: Heart Catheterization, Orthopedic Surgery Additional Past Surgical History / Comment(s): 03/14/18 Cardiac cath-normal coronaries, L shoulder rotator cuff repair x2, cervical injection. Past Anesthesia/Blood Transfusion Reactions: No Reported Reaction Past Psychological History: Anxiety, Bipolar, Depression, Schizophrenia Smoking Status: Current every day smoker Past Alcohol Use History: None Reported Past Drug Use History: Marijuana, Prescription Drug Abuse - Past Family History Father Family Medical History: Myocardial Infarction (MS) Additional Family Medical History / Comment(s): mi at age 35, still living Mother Family Medical History: Myocardial Infarction (MS) Additional Family Medical History / Comment(s): Mother has had at least one MS- pt unsure at what age. He has not had much contact with his mother since he was 17 yrs old. General Exam Limitations: no limitations General appearance: alert, in no apparent distress Head exam: Present: atraumatic, normocephalic, normal inspection Eye exam: Present: normal appearance, PERRL, EOMI. Absent: scleral icterus, conjunctival injection, periorbital swelling ENT exam: Present: normal exam, mucous membranes moist Neck exam: Present: normal inspection. Absent: tenderness, meningismus, lymphadenopathy Respiratory exam: Present: normal lung sounds bilaterally. Absent: respiratory distress, wheezes, rales, rhonchi, stridor Cardiovascular Exam: Present: regular rate, normal rhythm, normal heart sounds. Absent: systolic murmur, diastolic murmur, rubs, gallop, clicks GI/Abdominal exam: Present: soft, normal bowel sounds. Absent: distended, tenderness, guarding, rebound, rigid Extremities exam: Present: normal inspection, full ROM, normal capillary refill. Absent: tenderness, pedal edema, joint swelling, calf tenderness Back exam: Present: normal inspection Neurological exam: Present: alert, oriented X3, CN II-XII intact Psychiatric exam: Present: normal affect, normal mood Skin exam: Present: warm, dry, intact, normal color. Absent: rash Course Vital Signs 11/02/21 23:59 Temperature 99.2 F Pulse Rate 100 Respiratory 18 Rate Blood Pressure 158/112 O2 Sat by Pulse 98 Oximetry - Reevaluation(s) Reevaluation #1: 11/03/21 02:39 Medical record is reviewed Reevaluation #2: 11/03/21 02:39 has adequate pain control Reevaluation #3: 11/03/21 04:00 Patient informed results and can be discharged Medical Decision Making - Medical Decision Making 51 male with scrotal pain to the emergency department today with both varicocele and hydrocele. Pain is controlled patient can be discharged home - Lab Data Lab Results 11/03/21 Range/Units 00:41 Urine Color Yellow Urine Appearance Clear (Clear) Urine pH 7.0 (5.0-8.0) Ur Specific Ama 1.016 (1.001-1.035) Urine Protein 1+ H (Negative) Urine Glucose (UA) Negative (Negative) Urine Ketones Negative (Negative) Urine Blood Negative (Negative) Urine Nitrite Negative (Negative) Urine Bilirubin Negative (Negative) Urine Urobilinogen <2.0 (<2.0) mg/dL Ur Leukocyte Esterase Negative (Negative) Urine RBC 2 (0-5) /hpf Urine WBC 1 (0-5) /hpf Urine Mucus Rare H (None) /hpf - Radiology Data Radiology results: report reviewed (US is POSITIVE FOR HYDROCELE), image reviewed Disposition Clinical Impression: Hydrocele in adult, Bilateral varicoceles Disposition: HOME SELF-CARE Condition: Fair Instructions (If sedation given, give patient instructions): Scrotal Pain (ED), Testicle Pain (ED) Is patient prescribed a controlled substance at d/c from ED?: No Referrals: Clif Glasgow MD [Primary Care Provider] - 1-2 days Time of Disposition: 04:00
[2021-11-03] MEDS ORDERED: HYDROcodone/APAP 7.5-325MG 1 EACH TAB PO STA (01:11)
[2021-11-03 01:35] LABS: Appearance,Urine Clear (Clear); Bilirubin,Urine Negative (Negative); Blood,Urine Negative (Negative); Color,Urine Yellow; Glucose,Urine (UA) Negative (Negative); Ketones,Urine Negative (Negative); Leukocyte Esterase,Urine Negative (Negative); Mucus,Urine Rare /hpf; Nitrite,Urine Negative (Negative); Protein,Urine 1+ (Negative); RBC,Urine 2 /hpf (0-5); Specific Gravity,Urine 1.016 (1.001-1.035); Urobilinogen,Urine <2.0 mg/dL (<2.0); WBC,Urine 1 /hpf (0-5)
--- NOTE | 2021-11-03 03:52 | US ---
EXAM: US Scrotum CLINICAL HISTORY: pain TECHNIQUE: Real-time ultrasound of the scrotum with color Doppler and image documentation. COMPARISON: 03/17/2021 FINDINGS: Right testicle: The right testicle measures 4.7 x 2.1 x 3.4 cm. Testicular microlithiasis is noted, new from the previous examination. No evidence for intratesticular mass or torsion. Left testicle: Left testicle measures 4.1 x 1.9 x 2.9 cm. No evidence for intratesticular mass or torsion. Epididymides: The left epididymal head cyst is noted measuring 4 mm. The right epididymis measures 8 x 10 x 7 mm. The left epididymis measures 10 x 8 x 8 mm. Scrotum: Small right hydrocele noted. Mild varicoceles are noted, similar to the previous examination. IMPRESSION: 1. No evidence for torsion bilaterally. 2. Bilateral varicoceles are noted. No significant progression on the left. 3. Small right hydrocele.
[2021-11-03] MEDS ORDERED: HYDROmorphone 1 MG/ML 1 ML SYRINGE IM STA (04:03)
== END 2021-11-03 04:26 | disposition home or self-care (01) ==
LOC: EC 23:41
DX: N43.3 Hydrocele, unspecified (principal); I86.1 Scrotal varices; F17.200 Nicotine dependence, unspecified, uncomplicated; J44.9 Chronic obstructive pulmonary disease, unspecified; I10 Essential (primary) hypertension; E78.5 Hyperlipidemia, unspecified; I48.91 Unspecified atrial fibrillation; Z88.6 Allergy status to analgesic agent; Z88.8 Allergy status to other drugs, medicaments and biological substances; Z79.51 Long term (current) use of inhaled steroids; Z79.82 Long term (current) use of aspirin; Z79.899 Other long term (current) drug therapy
CPT/HCPCS: 81001; 93975; 76870; 99284; 96372; J1170

== ENCOUNTER 2021-11-06 01:47 | Emergency (ER) | payer OTHER ==
[2021-11-06 01:51] VITALS: TEMP 97.7
[2021-11-06 03:44] LABS: Basophils # (A) 0.1 k/uL (0-0.2); Basophils % (A) 2 %; Eosinophils # (A) 0.4 k/uL (0-0.7); Eosinophils % (A) 5 %; HCT 46.6 % (39.0-53.0); HGB 15.2 gm/dL (13.0-17.5); Lymphocytes # (A) 1.6 k/uL (1.0-4.8); Lymphocytes % (A) 22 %; MCH 31.3 pg (25.0-35.0); MCHC 32.6 g/dL (31.0-37.0); MCV 95.9 fL (80.0-100.0); Mean Platelet Volume 8.3; Monocytes # (A) 0.5 k/uL (0-1.0); Monocytes % (A) 7 %; Neutrophils # (A) 4.7 k/uL (1.3-7.7); Neutrophils % (A) 63 %; Platelet Count 181 k/uL (150-450); RBC 4.86 m/uL (4.30-5.90); RDW 15.2 % (11.5-15.5); WBC 7.4 k/uL (3.8-10.6)
[2021-11-06 04:07] LABS: ALT 24 U/L (4-49); AST 41 U/L (17-59); African American GFR (CKD) >90 (>60 ml/min/1.73 sqM); Albumin 3.7 g/dL (3.5-5.0); Alkaline Phosphatase 96 U/L (38-126); Anion Gap 8 mmol/L; Blood Urea Nitrogen 16 mg/dL (9-20); Calcium 8.5 mg/dL (8.4-10.2); Carbon Dioxide 21 mmol/L (22-30); Chloride 108 mmol/L (98-107); Glucose 91 mg/dL (74-99); Non-African American GFR(CKD) >90 (>60 ml/min/1.73 sqM); Potassium 3.3 mmol/L (3.5-5.1); Sodium 137 mmol/L (137-145); Total Bilirubin 1.3 mg/dL (0.2-1.3); Total Protein 6.5 g/dL (6.3-8.2)
[2021-11-06] MEDS ORDERED: HYDROcodone/APAP 5-325MG 1 EACH TAB PO STA ×2 (06:01→06:49)
[2021-11-06 06:07] VITALS: BP 155/103; PULSE 63; RESP 18
--- NOTE | 2021-11-06 06:48 | ED ---
General Adult HPI - General Chief complaint: Syncope Stated complaint: Syncope Time Seen by Provider: 11/06/21 03:02 Source: patient Mode of arrival: ambulatory Limitations: no limitations - History of Present Illness -: days(s) Location: abdomen, genitals Radiation: non-radiation Quality: dull Consistency: constant Improves with: none Worsens with: none Associated Symptoms: denies other symptoms - Related Data Home Medications Medication Instructions Recorded Confirmed Aspirin EC [Ecotrin Low Dose] 81 mg PO DAILY 05/23/21 10/14/21 Nitroglycerin Sl Tabs [Nitrostat] 0.4 mg SL Q5M PRN 06/28/21 10/14/21 HYDROcodone/APAP 5-325MG [[place] 1 tab PO TID PRN 07/28/21 10/14/21 5-325] Albuterol Sulfate [Proair Hfa] 2 puff INHALATION RT-QID PRN 10/14/21 10/14/21 Budesonide-Formot 160-4.5 Mcg 2 puff INHALATION RT-BID 10/14/21 10/14/21 [Symbicort 160-4.5 Mcg Inhaler] Metoprolol Succinate (ER) [Toprol 100 mg PO DAILY 10/14/21 10/14/21 XL] hydrALAZINE HCL [Apresoline] 100 mg PO TID 10/14/21 10/14/21 Previous Rx's Medication Instructions Recorded Spironolactone [Aldactone] 25 mg PO DAILY #10 tab 07/06/21 Rivaroxaban [Xarelto] 20 mg PO W/SUPPER 30 Days #30 tab 07/31/21 Furosemide [Lasix] 40 mg PO BID@0900,1600 30 Days #60 08/04/21 tab Valsartan [Diovan] 320 mg PO DAILY #10 tab 10/17/21 metOLazone [Zaroxolyn] 5 mg PO DAILY #10 tab 10/17/21 Allergies Allergy/AdvReac Type Severity Reaction Status Date / Time ibuprofen [From Motrin] AdvReac Nausea & Verified 11/06/21 13:21 Vomiting simvastatin [From Zocor] AdvReac Dizziness Verified 11/06/21 13:21 Review of Systems ROS Statement: Those systems with pertinent positive or pertinent negative responses have been documented in the HPI. ROS Other: All systems not noted in ROS Statement are negative. Constitutional: Denies: fever, chills, weakness Respiratory: Denies: cough, dyspnea Cardiovascular: Reports: edema. Denies: chest pain, palpitations Gastrointestinal: Reports: as per HPI, abdominal pain. Denies: nausea, vomiting, diarrhea, constipation, melena, hematochezia Genitourinary: Reports: testicular pain. Denies: dysuria, hematuria, discharge Musculoskeletal: Denies: back pain Skin: Denies: rash Neurological: Denies: headache, weakness, numbness Past Medical History Past Medical History: Atrial Fibrillation, COPD, Hyperlipidemia, Hypertension, Pneumonia Additional Past Medical History / Comment(s): Other HX; Costochondritis, chronic pain, chronic low back pain with bilateral sciatica, neuropathy bilateral hands/feet, migraines, kidney stones, past partial small bowel obstruction. HTN the last 10 yrs Stopped taking meds 5 yrs ago. COPD due to tobacco use. MArijuna use 3 -4 times a week - Smoke it History of Any Multi-Drug Resistant Organisms: MRSA Date of last positivie culture/infection: 04/10/18 MDRO Source:: TOE Past Surgical History: Heart Catheterization, Orthopedic Surgery Additional Past Surgical History / Comment(s): 03/14/18 Cardiac cath-normal coronaries, L shoulder rotator cuff repair x2, cervical injection. Past Anesthesia/Blood Transfusion Reactions: No Reported Reaction Past Psychological History: Anxiety, Bipolar, Depression, Schizophrenia Smoking Status: Current every day smoker Past Alcohol Use History: None Reported Past Drug Use History: Marijuana, Prescription Drug Abuse - Past Family History Father Family Medical History: Myocardial Infarction ([place]) Additional Family Medical History / Comment(s): mi at age 35, still living Mother Family Medical History: Myocardial Infarction ([place]) Additional Family Medical History / Comment(s): Mother has had at least one [place]- pt unsure at what age. He has not had much contact with his mother since he was 17 yrs old. General Exam Limitations: no limitations General appearance: alert, in no apparent distress Head exam: Present: atraumatic, normocephalic Eye exam: Present: normal appearance. Absent: scleral icterus, conjunctival injection Neck exam: Present: normal inspection Respiratory exam: Present: normal lung sounds bilaterally. Absent: respiratory distress, wheezes, rales, rhonchi, stridor Cardiovascular Exam: Present: regular rate, normal rhythm, normal heart sounds. Absent: systolic murmur, diastolic murmur, rubs, gallop GI/Abdominal exam: Present: soft. Absent: distended, tenderness, guarding, rebound, rigid, mass, pulsatile mass, hernia exam: Present: other (Mild scrotal edema). Absent: testicular tenderness Extremities exam: Present: normal inspection, normal capillary refill, pedal edema. Absent: calf tenderness Back exam: Present: normal inspection. Absent: CVA tenderness (R), CVA tenderness (L) Neurological exam: Present: alert Skin exam: Present: warm, dry, intact, normal color. Absent: rash Course Vital Signs 11/06/21 11/06/21 01:47 06:07 Temperature 97.7 F Pulse Rate 74 63 Respiratory 20 18 Rate Blood Pressure 153/101 155/103 O2 Sat by Pulse 96 100 Oximetry Medical Decision Making - Medical Decision Making This patient is 51-year-old man who presents mainly with request receive some analgesia for his abdominal and scrotal discomfort. Patient with known hydroceles and a varicocele. He states that he does have a scheduled follow-up to have urologic procedure related to this. He was hoping to have some analgesia tonight to help with symptoms. In addition, patient stated that he did have an episode where he stood up quickly and passed out. Denies having resulting injury. Patient's symptoms improved with analgesia, will continue with plan to have urologic procedure. Discussed appropriate further care and follow-up - Lab Data Result diagrams: 11/06/21 03:38 11/06/21 03:38 Lab Results 11/06/21 11/06/21 11/06/21 Range/Units 03:38 03:38 03:38 WBC 7.4 (3.8-10.6) k/uL RBC 4.86 (4.30-5.90) m/uL Hgb 15.2 (13.0-17.5) gm/dL Hct 46.6 (39.0-53.0) % MCV 95.9 (80.0-100.0) fL MCH 31.3 (25.0-35.0) pg MCHC 32.6 (31.0-37.0) g/dL RDW 15.2 (11.5-15.5) % Plt Count 181 (150-450) k/uL MPV 8.3 Neutrophils % 63 % Lymphocytes % 22 % Monocytes % 7 % Eosinophils % 5 % Basophils % 2 % Neutrophils # 4.7 (1.3-7.7) k/uL Lymphocytes # 1.6 (1.0-4.8) k/uL Monocytes # 0.5 (0-1.0) k/uL Eosinophils # 0.4 (0-0.7) k/uL Basophils # 0.1 (0-0.2) k/uL Sodium 137 (137-145) mmol/L Potassium 3.3 L (3.5-5.1) mmol/L Chloride 108 H (98-107) mmol/L Carbon Dioxide 21 L (22-30) mmol/L Anion Gap 8 mmol/L BUN 16 (9-20) mg/dL Creatinine 0.93 (0.66-1.25) mg/dL Est GFR (CKD-EPI)AfAm >90 (>60 ml/min/1.73 sqM) Est GFR (CKD-EPI)NonAf >90 (>60 ml/min/1.73 sqM) Glucose 91 (74-99) mg/dL Calcium 8.5 (8.4-10.2) mg/dL Total Bilirubin 1.3 (0.2-1.3) mg/dL AST 41 (17-59) U/L ALT 24 (4-49) U/L Alkaline Phosphatase 96 (38-126) U/L Troponin I <0.012 (0.000-0.034) ng/mL Total Protein 6.5 (6.3-8.2) g/dL Albumin 3.7 (3.5-5.0) g/dL Disposition Clinical Impression: Varicocele Disposition: HOME SELF-CARE Condition: Good Instructions (If sedation given, give patient instructions): Varicocele (ED) Is patient prescribed a controlled substance at d/c from ED?: No Referrals: Clif Glasgow MD [Primary Care Provider] - 1-2 days
== END 2021-11-06 07:00 | disposition home or self-care (01) ==
LOC: EC 01:47
DX: I86.1 Scrotal varices (principal); I10 Essential (primary) hypertension; E78.5 Hyperlipidemia, unspecified; J44.9 Chronic obstructive pulmonary disease, unspecified; F41.9 Anxiety disorder, unspecified; F31.9 Bipolar disorder, unspecified; F17.200 Nicotine dependence, unspecified, uncomplicated; F12.90 Cannabis use, unspecified, uncomplicated; Z88.6 Allergy status to analgesic agent; Z88.8 Allergy status to other drugs, medicaments and biological substances; Z79.899 Other long term (current) drug therapy
CPT/HCPCS: 36415; 80053; 84484; 85025; 93005; 99284

== ENCOUNTER 2021-11-06 13:16 | Emergency (ER) | payer OTHER ==
[2021-11-06 13:21] VITALS: BP 140/87; PULSE 85; RESP 16; TEMP 97.8
--- NOTE | 2021-11-06 13:44 | ED ---
General Adult HPI - General Chief complaint: Abdominal Pain Stated complaint: ABD Pain Time Seen by Provider: 11/06/21 13:22 Source: patient, RN notes reviewed, old records reviewed Mode of arrival: ambulatory Limitations: no limitations - History of Present Illness Initial comments: This is a 51-year-old male who presents emergency Department stating he has varicoceles and he feels as though the varicoceles are causing some pain in scrotum. Patient states he recently has had an ultrasound and it verified that he does have varicoceles. Patient states he also is felt he has some difficulty urinating. Patient states he hasn't urinated since this morning but is been drinking a lot of water. Patient denies any new abdominal pain. Patient denies any vomiting or diarrhea. Patient denies any fever chills. Patient denies any back pain. - Related Data Home Medications Medication Instructions Recorded Confirmed Aspirin EC [Ecotrin Low Dose] 81 mg PO DAILY 05/23/21 10/14/21 Nitroglycerin Sl Tabs [Nitrostat] 0.4 mg SL Q5M PRN 06/28/21 10/14/21 HYDROcodone/APAP 5-325MG [[place] 1 tab PO TID PRN 07/28/21 10/14/21 5-325] Albuterol Sulfate [Proair Hfa] 2 puff INHALATION RT-QID PRN 10/14/21 10/14/21 Budesonide-Formot 160-4.5 Mcg 2 puff INHALATION RT-BID 10/14/21 10/14/21 [Symbicort 160-4.5 Mcg Inhaler] Metoprolol Succinate (ER) [Toprol 100 mg PO DAILY 10/14/21 10/14/21 XL] hydrALAZINE HCL [Apresoline] 100 mg PO TID 10/14/21 10/14/21 Previous Rx's Medication Instructions Recorded Spironolactone [Aldactone] 25 mg PO DAILY #10 tab 07/06/21 Rivaroxaban [Xarelto] 20 mg PO W/SUPPER 30 Days #30 tab 07/31/21 Furosemide [Lasix] 40 mg PO BID@0900,1600 30 Days #60 08/04/21 tab Valsartan [Diovan] 320 mg PO DAILY #10 tab 10/17/21 metOLazone [Zaroxolyn] 5 mg PO DAILY #10 tab 10/17/21 Allergies Allergy/AdvReac Type Severity Reaction Status Date / Time ibuprofen [From Motrin] AdvReac Nausea & Verified 11/06/21 13:21 Vomiting simvastatin [From Zocor] AdvReac Dizziness Verified 11/06/21 13:21 Review of Systems ROS Statement: Those systems with pertinent positive or pertinent negative responses have been documented in the HPI. ROS Other: All systems not noted in ROS Statement are negative. Past Medical History Past Medical History: Atrial Fibrillation, COPD, Hyperlipidemia, Hypertension, Pneumonia Additional Past Medical History / Comment(s): Other HX; Costochondritis, chronic pain, chronic low back pain with bilateral sciatica, neuropathy bilateral hands/feet, migraines, kidney stones, past partial small bowel obstruction. HTN the last 10 yrs Stopped taking meds 5 yrs ago. COPD due to tobacco use. MArijuna use 3 -4 times a week - Smoke it History of Any Multi-Drug Resistant Organisms: MRSA Date of last positivie culture/infection: 04/10/18 MDRO Source:: TOE Past Surgical History: Heart Catheterization, Orthopedic Surgery Additional Past Surgical History / Comment(s): 03/14/18 Cardiac cath-normal coronaries, L shoulder rotator cuff repair x2, cervical injection. Past Anesthesia/Blood Transfusion Reactions: No Reported Reaction Past Psychological History: Anxiety, Bipolar, Depression, Schizophrenia Smoking Status: Current every day smoker Past Alcohol Use History: None Reported Past Drug Use History: Marijuana, Prescription Drug Abuse - Past Family History Father Family Medical History: Myocardial Infarction ([place]) Additional Family Medical History / Comment(s): mi at age 35, still living Mother Family Medical History: Myocardial Infarction ([place]) Additional Family Medical History / Comment(s): Mother has had at least one [place]- pt unsure at what age. He has not had much contact with his mother since he was 17 yrs old. General Exam - General Exam Comments Initial Comments: GENERAL: Patient is well-developed and well-nourished. Patient is nontoxic and well- hydrated and is in no acute distress. ENT: Neck is soft and supple. No significant lymphadenopathy is noted. Oropharynx is clear. Moist mucous membranes. Neck has full range of motion without eliciting any pain. EYES: The sclera were anicteric and conjunctiva were pink and moist. Extraocular movements were intact and pupils were equal round and reactive to light. Eyelids were unremarkable. PULMONARY: Unlabored respirations. Good breath sounds bilaterally. No audible rales rhonchi or wheezing was noted. CARDIOVASCULAR: There is a regular rate and rhythm without any murmurs gallops or rubs. ABDOMEN: Soft and nontender with normal bowel sounds. GENITALIA: Genitalia exam showed no ST no tenderness no scrotal swelling no erythema there was what appeared to be some varices on examination but not very significant. SKIN: Skin is clear with no lesions or rashes and otherwise unremarkable. NEUROLOGIC: Patient is alert and oriented x3. Cranial nerves II through XII are grossly intact. Motor and sensory are also intact. Normal speech, volume and content. Symmetrical smile. MUSCULOSKELETAL: Normal extremities with adequate strength and full range of motion. LYMPHATICS: No significant lymphadenopathy is noted PSYCHIATRIC: Normal psychiatric evaluation. Limitations: no limitations Course Vital Signs 11/06/21 13:18 Temperature 97.8 F Pulse Rate 85 Respiratory 16 Rate Blood Pressure 140/87 O2 Sat by Pulse 98 Oximetry Medical Decision Making - Lab Data Lab Results 11/06/21 Range/Units 14:24 Urine Color Yellow Urine Appearance Clear (Clear) Urine pH 5.5 (5.0-8.0) Ur Specific [place] 1.026 (1.001-1.035) Urine Protein Trace H (Negative) Urine Glucose (UA) Negative (Negative) Urine Ketones Negative (Negative) Urine Blood Negative (Negative) Urine Nitrite Negative (Negative) Urine Bilirubin Negative (Negative) Urine Urobilinogen 3.0 (<2.0) mg/dL Ur Leukocyte Esterase Negative (Negative) Disposition Clinical Impression: Chronic abdominal pain, Varicocele Disposition: HOME SELF-CARE Instructions (If sedation given, give patient instructions): Abdominal Pain (ED) Is patient prescribed a controlled substance at d/c from ED?: No Referrals: Clif Glasgow MD [Primary Care Provider] - 1-2 days Time of Disposition: 14:32
[2021-11-06 14:29] LABS: Appearance,Urine Clear (Clear); Bilirubin,Urine Negative (Negative); Blood,Urine Negative (Negative); Color,Urine Yellow; Glucose,Urine (UA) Negative (Negative); Ketones,Urine Negative (Negative); Leukocyte Esterase,Urine Negative (Negative); Nitrite,Urine Negative (Negative); PH, Urine 5.5 (5.0-8.0); Protein,Urine Trace (Negative); Specific Gravity,Urine 1.026 (1.001-1.035)
== END 2021-11-06 14:49 | disposition home or self-care (01) ==
LOC: EC 13:16
DX: I86.1 Scrotal varices (principal); G89.29 Other chronic pain; I10 Essential (primary) hypertension; J44.9 Chronic obstructive pulmonary disease, unspecified; I48.91 Unspecified atrial fibrillation; E78.5 Hyperlipidemia, unspecified; F31.9 Bipolar disorder, unspecified; F41.9 Anxiety disorder, unspecified; F20.9 Schizophrenia, unspecified; F17.200 Nicotine dependence, unspecified, uncomplicated; F12.90 Cannabis use, unspecified, uncomplicated; F15.90 Other stimulant use, unspecified, uncomplicated; Z79.82 Long term (current) use of aspirin; Z79.51 Long term (current) use of inhaled steroids; Z79.01 Long term (current) use of anticoagulants; Z79.899 Other long term (current) drug therapy
CPT/HCPCS: 51798; 81003; 99284

== ENCOUNTER 2021-11-08 01:12 | Emergency (ER) | payer OTHER ==
[2021-11-08 01:23] VITALS: BP 157/116; RESP 16; TEMP 97.4
--- NOTE | 2021-11-08 01:47 | ED ---
Fall HPI - General Chief Complaint: Fall Stated Complaint: Syncope Time Seen by Provider: 11/08/21 01:16 Source: patient, RN notes reviewed, old records reviewed Mode of arrival: EMS Limitations: no limitations - History of Present Illness Initial Comments: This is a 51-year-old male DF for evaluation patient's well-known to our emergency department also presents with multiple recent ER visits the last week. Patient had a fall at home possibly multiple falls and presents by EMS. 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 Fall Witnessed: no Place Fall Occurred: home Loss of Consciousness: none Prolonged Down Time?: no Symptoms Prior to Fall: none Severity: mild Severity scale (1-10): 0 Quality: burning Associated Symptoms: denies - Related Data Home Medications Medication Instructions Recorded Confirmed Aspirin EC [Ecotrin Low Dose] 81 mg PO DAILY 05/23/21 10/14/21 Nitroglycerin Sl Tabs [Nitrostat] 0.4 mg SL Q5M PRN 06/28/21 10/14/21 HYDROcodone/APAP 5-325MG [[place] 1 tab PO TID PRN 07/28/21 10/14/21 5-325] Albuterol Sulfate [Proair Hfa] 2 puff INHALATION RT-QID PRN 10/14/21 10/14/21 Budesonide-Formot 160-4.5 Mcg 2 puff INHALATION RT-BID 10/14/21 10/14/21 [Symbicort 160-4.5 Mcg Inhaler] Metoprolol Succinate (ER) [Toprol 100 mg PO DAILY 10/14/21 10/14/21 XL] hydrALAZINE HCL [Apresoline] 100 mg PO TID 10/14/21 10/14/21 Previous Rx's Medication Instructions Recorded Spironolactone [Aldactone] 25 mg PO DAILY #10 tab 07/06/21 Rivaroxaban [Xarelto] 20 mg PO W/SUPPER 30 Days #30 tab 07/31/21 Furosemide [Lasix] 40 mg PO BID@0900,1600 30 Days #60 08/04/21 tab Valsartan [Diovan] 320 mg PO DAILY #10 tab 10/17/21 metOLazone [Zaroxolyn] 5 mg PO DAILY #10 tab 10/17/21 Allergies Allergy/AdvReac Type Severity Reaction Status Date / Time ibuprofen [From Motrin] AdvReac Nausea & Verified 11/06/21 13:21 Vomiting simvastatin [From Zocor] AdvReac Dizziness Verified 11/06/21 13:21 Review of Systems ROS Statement: Those systems with pertinent positive or pertinent negative responses have been documented in the HPI. ROS Other: All systems not noted in ROS Statement are negative. Past Medical History Past Medical History: Atrial Fibrillation, COPD, Hyperlipidemia, Hypertension, Pneumonia Additional Past Medical History / Comment(s): Other HX; Costochondritis, chronic pain, chronic low back pain with bilateral sciatica, neuropathy bilateral hands/feet, migraines, kidney stones, past partial small bowel obstruction. HTN the last 10 yrs Stopped taking meds 5 yrs ago. COPD due to tobacco use. MArijuna use 3 -4 times a week - Smoke it History of Any Multi-Drug Resistant Organisms: MRSA Date of last positivie culture/infection: 04/10/18 MDRO Source:: TOE Past Surgical History: Heart Catheterization, Orthopedic Surgery Additional Past Surgical History / Comment(s): 03/14/18 Cardiac cath-normal coronaries, L shoulder rotator cuff repair x2, cervical injection. Past Anesthesia/Blood Transfusion Reactions: No Reported Reaction Past Psychological History: Anxiety, Bipolar, Depression, Schizophrenia Smoking Status: Current every day smoker Past Alcohol Use History: None Reported Past Drug Use History: Marijuana, Prescription Drug Abuse - Past Family History Father Family Medical History: Myocardial Infarction ([place]) Additional Family Medical History / Comment(s): mi at age 35, still living Mother Family Medical History: Myocardial Infarction ([place]) Additional Family Medical History / Comment(s): Mother has had at least one [place]- pt unsure at what age. He has not had much contact with his mother since he was 17 yrs old. General Exam General appearance: alert, in no apparent distress Head exam: Present: atraumatic, normocephalic, normal inspection Eye exam: Present: normal appearance, PERRL, EOMI. Absent: scleral icterus, conjunctival injection, periorbital swelling ENT exam: Present: normal exam, mucous membranes moist Neck exam: Present: normal inspection. Absent: tenderness, meningismus, lymphadenopathy Respiratory exam: Present: normal lung sounds bilaterally. Absent: respiratory distress, wheezes, rales, rhonchi, stridor Cardiovascular Exam: Present: regular rate, normal rhythm, normal heart sounds. Absent: systolic murmur, diastolic murmur, rubs, gallop, clicks GI/Abdominal exam: Present: soft, normal bowel sounds. Absent: distended, tende rness, guarding, rebound, rigid Extremities exam: Present: normal inspection, full ROM, normal capillary refill. Absent: tenderness, pedal edema, joint swelling, calf tenderness Back exam: Present: normal inspection Neurological exam: Present: alert, oriented X3, CN II-XII intact Psychiatric exam: Present: normal affect, normal mood Skin exam: Present: warm, dry, intact, normal color. Absent: rash Course Vital Signs 11/08/21 01:14 Temperature 97.4 F L Pulse Rate 80 Respiratory 16 Rate Blood Pressure 157/116 O2 Sat by Pulse 99 Oximetry - Reevaluation(s) Reevaluation #1: 11/08/21 03:52 Medical record is reviewed Reevaluation #2: 11/08/21 03:52 Patient is in no distress here in the ER falls asleep upon arrival to emergency department Reevaluation #3: 11/08/21 03:52 patient informed of results and can be discharged Medical Decision Making - Medical Decision Making 51 male to the emergency department with history of multiple falls while with multiple ER visits no acute findings. Patient evaluated here in the ER no focal findings and can be discharged home Disposition Clinical Impression: Fall Disposition: HOME SELF-CARE Condition: Fair Instructions (If sedation given, give patient instructions): Fall Prevention for Older Adults (ED) Is patient prescribed a controlled substance at d/c from ED?: No Referrals: Clif Glasgow MD [Primary Care Provider] - 1-2 days Time of Disposition: 04:00
[2021-11-08] MEDS ORDERED: HYDROmorphone 1 MG/ML 1 ML SYRINGE IM STA (04:02)
[2021-11-08 04:10] VITALS: PULSE 82
== END 2021-11-08 04:10 | disposition home or self-care (01) ==
LOC: EC 01:12
DX: R55 Syncope and collapse (principal); I10 Essential (primary) hypertension; I48.91 Unspecified atrial fibrillation; J44.9 Chronic obstructive pulmonary disease, unspecified; E78.5 Hyperlipidemia, unspecified; F31.9 Bipolar disorder, unspecified; F41.9 Anxiety disorder, unspecified; F20.9 Schizophrenia, unspecified; F17.200 Nicotine dependence, unspecified, uncomplicated; F12.90 Cannabis use, unspecified, uncomplicated; F15.10 Other stimulant abuse, uncomplicated; Z79.01 Long term (current) use of anticoagulants; Z79.51 Long term (current) use of inhaled steroids; Z79.82 Long term (current) use of aspirin; Z79.899 Other long term (current) drug therapy; W18.39XA Other fall on same level, initial encounter; Y92.009 Unspecified place in unspecified non-institutional (private) residence as the place of occurrence of the external cause
CPT/HCPCS: 99284; 96372; J1170

== ENCOUNTER 2021-11-13 04:19 | Emergency (ER) | payer OTHER ==
[2021-11-13 04:26] VITALS: BP 133/91; PULSE 99; RESP 18; TEMP 97.9
[2021-11-13] MEDS ORDERED: CEPHALEXIN 500 MG CAP PO STA (04:41)
[2021-11-13] MEDS ORDERED: CEPHALEXIN 500MG STARTER PACK 4 CAP BTL PO STA (04:41)
[2021-11-13] MEDS ORDERED: HYDROmorphone 1 MG/ML 1 ML SYRINGE IM STA (04:41)
--- NOTE | 2021-11-13 04:43 | ED ---
Lower Extremity Injury HPI - General Chief Complaint: Extremity Injury, Lower Stated Complaint: Cellulitis on both legs, Left Knee Injury Time Seen by Provider: 11/13/21 04:37 Source: patient, RN notes reviewed, old records reviewed Mode of arrival: ambulatory Limitations: no limitations - History of Present Illness Initial Comments: This is a 51-year-old male to the emergency department for evaluation. Patient presents today for evaluation regards to chronic pain lower extremity swelling, cellulitis. Patient is known new or recent injury. Patient states he just needs continue treatment for this chronic problem. Patient does admit to recurrent homelessness. Has no specific new complaints MD Complaint: leg injury, ankle injury -: days(s) Injury: Leg: Right Type of Injury: blunt Place: home, work Severity scale (1-10): 2 Improves With: NSAID, immobilization Context: fall, direct blow, running Other Symptoms: other (0) Associated Symptoms: able to partially bear weight, ambulatory Treatments Prior to Arrival: spinal immobilization (0) - Related Data Home Medications Medication Instructions Recorded Confirmed Aspirin EC [Ecotrin Low Dose] 81 mg PO DAILY 05/23/21 10/14/21 Nitroglycerin Sl Tabs [Nitrostat] 0.4 mg SL Q5M PRN 06/28/21 10/14/21 HYDROcodone/APAP 5-325MG [[place] 1 tab PO TID PRN 07/28/21 10/14/21 5-325] Albuterol Sulfate [Proair Hfa] 2 puff INHALATION RT-QID PRN 10/14/21 10/14/21 Budesonide-Formot 160-4.5 Mcg 2 puff INHALATION RT-BID 10/14/21 10/14/21 [Symbicort 160-4.5 Mcg Inhaler] Metoprolol Succinate (ER) [Toprol 100 mg PO DAILY 10/14/21 10/14/21 XL] hydrALAZINE HCL [Apresoline] 100 mg PO TID 10/14/21 10/14/21 Previous Rx's Medication Instructions Recorded Spironolactone [Aldactone] 25 mg PO DAILY #10 tab 07/06/21 Rivaroxaban [Xarelto] 20 mg PO W/SUPPER 30 Days #30 tab 07/31/21 Furosemide [Lasix] 40 mg PO BID@0900,1600 30 Days #60 08/04/21 tab Valsartan [Diovan] 320 mg PO DAILY #10 tab 10/17/21 metOLazone [Zaroxolyn] 5 mg PO DAILY #10 tab 10/17/21 Cephalexin [Keflex] 500 mg PO Q6HR #40 cap 11/13/21 Allergies Allergy/AdvReac Type Severity Reaction Status Date / Time ibuprofen [From Motrin] AdvReac Nausea & Verified 11/19/21 03:09 Vomiting simvastatin [From Zocor] AdvReac Dizziness Verified 11/19/21 03:09 Review of Systems ROS Statement: Those systems with pertinent positive or pertinent negative responses have been documented in the HPI. ROS Other: All systems not noted in ROS Statement are negative. Past Medical History Past Medical History: Atrial Fibrillation, COPD, Hyperlipidemia, Hypertension, Pneumonia Additional Past Medical History / Comment(s): Other HX; Costochondritis, chronic pain, chronic low back pain with bilateral sciatica, neuropathy bilateral hands/feet, migraines, kidney stones, past partial small bowel obstruc tion. HTN the last 10 yrs Stopped taking meds 5 yrs ago. COPD due to tobacco use. MArijuna use 3 -4 times a week - Smoke it History of Any Multi-Drug Resistant Organisms: MRSA Date of last positivie culture/infection: 04/10/18 MDRO Source:: TOE Past Surgical History: Heart Catheterization, Orthopedic Surgery Additional Past Surgical History / Comment(s): 03/14/18 Cardiac cath-normal coronaries, L shoulder rotator cuff repair x2, cervical injection. Past Anesthesia/Blood Transfusion Reactions: No Reported Reaction Past Psychological History: Anxiety, Bipolar, Depression, Schizophrenia Smoking Status: Current every day smoker Past Alcohol Use History: None Reported Past Drug Use History: Marijuana, Prescription Drug Abuse - Past Family History Father Family Medical History: Myocardial Infarction ([place]) Additional Family Medical History / Comment(s): mi at age 35, still living Mother Family Medical History: Myocardial Infarction ([place]) Additional Family Medical History / Comment(s): Mother has had at least one [place]- pt unsure at what age. He has not had much contact with his mother since he was 17 yrs old. General Exam Limitations: no limitations Course Vital Signs 11/13/21 04:24 Temperature 97.9 F Pulse Rate 99 Respiratory 18 Rate Blood Pressure 133/91 O2 Sat by Pulse 98 Oximetry - Reevaluation(s) Reevaluation #1: 11/13/21 Medical record is reviewed Reevaluation #2: 11/13/21 Patient is improved and okay for discharge Disposition Clinical Impression: Bilateral cellulitis of lower leg Disposition: HOME SELF-CARE Condition: Fair Instructions (If sedation given, give patient instructions): Cellulitis (ED) Prescriptions: Cephalexin [Keflex] 500 mg PO Q6HR #40 cap Is patient prescribed a controlled substance at d/c from ED?: No Referrals: Clif Glasgow MD [Primary Care Provider] - 1-2 days Time of Disposition: 05:00
== END 2021-11-13 05:09 | disposition home or self-care (01) ==
LOC: EC 04:19
DX: L03.116 Cellulitis of left lower limb (principal); L03.115 Cellulitis of right lower limb; E78.5 Hyperlipidemia, unspecified; I10 Essential (primary) hypertension; F17.200 Nicotine dependence, unspecified, uncomplicated; Z82.49 Family history of ischemic heart disease and other diseases of the circulatory system; Z88.6 Allergy status to analgesic agent; Z88.8 Allergy status to other drugs, medicaments and biological substances
CPT/HCPCS: 99283; 96372; J1170

== ENCOUNTER 2021-11-15 17:02 | Emergency (ER) | payer OTHER ==
[2021-11-15 17:28] VITALS: BP 145/105; PULSE 89; RESP 16; TEMP 97.8
--- NOTE | 2021-11-15 18:57 | ED ---
General Adult HPI - General Chief complaint: Fall Stated complaint: Fall on thinners-head injury Time Seen by Provider: 11/15/21 18:39 Source: patient Mode of arrival: ambulatory Limitations: no limitations - History of Present Illness Initial comments: Dictation was produced using [employer] dictation software. please excuse any grammatical, word or spelling errors. Chief Complaint: 51-year-old male presents to the emergency department for concerns of passing out, bilateral knee pain History of Present Illness: Is 51-year-old male he has multiple comorbidities well-known to emergency department. Patient is here in the emergency room for multiple visitations for a myriad of complaints. Patient states that yesterday he believes that he passed out. He is currently homeless and is living on the streets. Patient states that he passed out and fell on both of his knees. Patient is seen in emergency department 2 days ago for lower extremity symptoms bilaterally. The ROS documented in this emergency department record has been reviewed and confirmed by me. Those systems with pertinent positive or negative responses have been documented in the HPI. All other systems are other negative and/or noncontributory. PHYSICAL EXAM: General Impression: Alert and oriented x3, not in acute distress HEENT: Abrasion to the right anterior forehead, extra-ocular movements intact, pupils equal and reactive to light bilaterally, mucous membranes moist. Cardiovascular: Heart regular rate and rhythm Chest: Able to complete full sentences, no retractions, no tachypnea Abdomen: abdomen soft, non-tender, non-distended, no organomegaly Musculoskeletal: Pulses present and equal in all extremities, no peripheral edema, abrasions to the bilateral knees Motor: no focal deficits noted Neurological: CN II-XII grossly intact, no focal motor or sensory deficits noted Skin: Intact with no visualized rashes Psych: Normal affect and mood ED course: 51-year-old homeless male well-known to emergency Department presents again for chief complaint of syncope, bilateral knee pain signs upon arrival are within acceptable limits. Chart review was performed. Patient was seen in emergency department 2 days ago for lower extremity symptoms. This is patient's sixth visit here in the last 2 weeks. Laboratory evaluation obtained. CBC, metabolic panel is unremarkable. EKGs benign. Computed tomography scan of the head and C-spine shows no acute intracranial processes. X-rays unremarkable bilaterally. Patient observed in emergency department for approximately 3 hours reevaluated at bedside at 8:20 PM father is stable medical condition. Patient be discharged. EKG interpretation: Ventricular rate 81, sinus rhythm, FL interval 160, trismus 6, QTC 498. No FL prolongation, no QTC prolongation, no ST or T-wave changes no jossie. EKG compared to 11/06/2021 showing no changes. Overall, this EKG is unremarkable - Related Data Home Medications Medication Instructions Recorded Confirmed Aspirin EC [Ecotrin Low Dose] 81 mg PO DAILY 05/23/21 10/14/21 Nitroglycerin Sl Tabs [Nitrostat] 0.4 mg SL Q5M PRN 06/28/21 10/14/21 HYDROcodone/APAP 5-325MG [[place] 1 tab PO TID PRN 07/28/21 10/14/21 5-325] Albuterol Sulfate [Proair Hfa] 2 puff INHALATION RT-QID PRN 10/14/21 10/14/21 Budesonide-Formot 160-4.5 Mcg 2 puff INHALATION RT-BID 10/14/21 10/14/21 [Symbicort 160-4.5 Mcg Inhaler] Metoprolol Succinate (ER) [Toprol 100 mg PO DAILY 10/14/21 10/14/21 XL] hydrALAZINE HCL [Apresoline] 100 mg PO TID 10/14/21 10/14/21 Previous Rx's Medication Instructions Recorded Spironolactone [Aldactone] 25 mg PO DAILY #10 tab 07/06/21 Rivaroxaban [Xarelto] 20 mg PO W/SUPPER 30 Days #30 tab 07/31/21 Furosemide [Lasix] 40 mg PO BID@0900,1600 30 Days #60 08/04/21 tab Valsartan [Diovan] 320 mg PO DAILY #10 tab 10/17/21 metOLazone [Zaroxolyn] 5 mg PO DAILY #10 tab 10/17/21 Cephalexin [Keflex] 500 mg PO Q6HR #40 cap 11/13/21 Allergies Allergy/AdvReac Type Severity Reaction Status Date / Time ibuprofen [From Motrin] AdvReac Nausea & Verified 11/15/21 17:28 Vomiting simvastatin [From Zocor] AdvReac Dizziness Verified 11/15/21 17:28 Review of Systems ROS Statement: Those systems with pertinent positive or pertinent negative responses have been documented in the HPI. ROS Other: All systems not noted in ROS Statement are negative. Past Medical History Past Medical History: Atrial Fibrillation, COPD, Hyperlipidemia, Hypertension, Pneumonia Additional Past Medical History / Comment(s): Other HX; Costochondritis, chronic pain, chronic low back pain with bilateral sciatica, neuropathy bilateral hands/feet, migraines, kidney stones, past partial small bowel obstruction. HTN the last 10 yrs Stopped taking meds 5 yrs ago. COPD due to tobacco use. MArijuna use 3 -4 times a week - Smoke it History of Any Multi-Drug Resistant Organisms: MRSA Date of last positivie culture/infection: 04/10/18 MDRO Source:: TOE Past Surgical History: Heart Catheterization, Orthopedic Surgery Additional Past Surgical History / Comment(s): 03/14/18 Cardiac cath-normal coronaries, L shoulder rotator cuff repair x2, cervical injection. Past Anesthesia/Blood Transfusion Reactions: No Reported Reaction Past Psychological History: Anxiety, Bipolar, Depression, Schizophrenia Smoking Status: Current every day smoker Past Alcohol Use History: None Reported Past Drug Use History: Marijuana, Prescription Drug Abuse - Past Family History Father Family Medical History: Myocardial Infarction ([place]) Additional Family Medical History / Comment(s): mi at age 35, still living Mother Family Medical History: Myocardial Infarction (SD) Additional Family Medical History / Comment(s): Mother has had at least one SD- pt unsure at what age. He has not had much contact with his mother since he was 17 yrs old. General Exam Limitations: no limitations Course Vital Signs 11/15/21 17:25 Temperature 97.8 F Pulse Rate 89 Respiratory 16 Rate Blood Pressure 145/105 O2 Sat by Pulse 98 Oximetry Medical Decision Making - Lab Data Result diagrams: 11/15/21 19:55 11/15/21 19:55 Lab Results 11/15/21 11/15/21 Range/Units 19:55 19:55 WBC 5.6 (3.8-10.6) k/uL RBC 5.03 (4.30-5.90) m/uL Hgb 15.8 (13.0-17.5) gm/dL Hct 48.4 (39.0-53.0) % MCV 96.2 (80.0-100.0) fL MCH 31.4 (25.0-35.0) pg MCHC 32.6 (31.0-37.0) g/dL RDW 14.5 (11.5-15.5) % Plt Count 177 (150-450) k/uL MPV 8.9 Neutrophils % 54 % Lymphocytes % 27 % Monocytes % 11 % Eosinophils % 5 % Basophils % 1 % Neutrophils # 3.0 (1.3-7.7) k/uL Lymphocytes # 1.5 (1.0-4.8) k/uL Monocytes # 0.6 (0-1.0) k/uL Eosinophils # 0.3 (0-0.7) k/uL Basophils # 0.1 (0-0.2) k/uL Sodium 139 (137-145) mmol/L Potassium 3.4 L (3.5-5.1) mmol/L Chloride 106 (98-107) mmol/L Carbon Dioxide 27 (22-30) mmol/L Anion Gap 6 mmol/L BUN 16 (9-20) mg/dL Creatinine 0.90 (0.66-1.25) mg/dL Est GFR (CKD-EPI)AfAm >90 (>60 ml/min/1.73 sqM) Est GFR (CKD-EPI)NonAf >90 (>60 ml/min/1.73 sqM) Glucose 89 (74-99) mg/dL Calcium 8.8 (8.4-10.2) mg/dL Disposition Clinical Impression: Head contusion Disposition: HOME SELF-CARE Condition: Good Instructions (If sedation given, give patient instructions): Fall Prevention for Older Adults (ED) Is patient prescribed a controlled substance at d/c from ED?: No Referrals: Clif Glasgow MD [Primary Care Provider] - 1-2 days Time of Disposition: 20:21
--- NOTE | 2021-11-15 19:48 | CT ---
EXAMINATION TYPE: CT brain cspine wo con CT DLP: 1422 mGycm, Automated exposure control for dose reduction was used. DATE OF EXAM: 11/15/2021 7:31 PM COMPARISON: CT brain 03/18/2016, 08/26/2018 cervical spine CLINICAL INDICATION:Male, 51 years old with history of fall, loc; fall, head injury, on blood thinner s TECHNIQUE: Brain: Multiple axial CT images of the brain were obtained without IV contrast. Cspine: Axial CT images from the skull base to the inferior aspect of T2 we obtained without intraven ous contrast. Coronal and sagittal reformatted images were also reviewed. FINDINGS: Brain: Extra-axial spaces: No abnormal extra-axial fluid collections. Ventricular system: Within normal limits Cerebral parenchyma: No acute intraparenchymal hemorrhage or mass effect. The cabrales-white junction is well differentiated. Cerebellum: Unremarkable. Mass effect: No evidence of midline shift. Intracranial vasculature: Atherosclerotic calcifications of the intracranial vessels. Soft tissues: Left frontal scalp edema. Calvarium/osseous structures: No depressed skull fracture. Paranasal sinuses and mastoid air cells: Clear. Visualized orbits: Orbital contents are intact. Cervical spine: Fracture: None. Osseous structures: Multilevel degenerative disc disease changes with endplate spurring and disc oste ophyte complex's. Vertebral alignment: Within normal limits. Spinal canal/Neural Foramina: No evidence of significant spinal canal narrowing. No evidence for sign ificant neural foraminal stenosis. Neck soft tissues: Prevertebral soft tissues are within normal limits. Other: The airway is patent. The lung apices are clear. IMPRESSION: 1. No acute intracranial process. 2. Left frontal scalp edema. 3. No evidence of cervical spine fracture. 4. Mild multilevel degenerative disc disease.
[2021-11-15 19:59] LABS: Basophils # (A) 0.1 k/uL (0-0.2); Basophils % (A) 1 %; Eosinophils # (A) 0.3 k/uL (0-0.7); Eosinophils % (A) 5 %; HCT 48.4 % (39.0-53.0); HGB 15.8 gm/dL (13.0-17.5); Lymphocytes # (A) 1.5 k/uL (1.0-4.8); Lymphocytes % (A) 27 %; MCH 31.4 pg (25.0-35.0); MCHC 32.6 g/dL (31.0-37.0); MCV 96.2 fL (80.0-100.0); Mean Platelet Volume 8.9; Monocytes # (A) 0.6 k/uL (0-1.0); Monocytes % (A) 11 %; Neutrophils % (A) 54 %; Platelet Count 177 k/uL (150-450); RBC 5.03 m/uL (4.30-5.90); RDW 14.5 % (11.5-15.5); WBC 5.6 k/uL (3.8-10.6)
[2021-11-15 20:07] LABS: African American GFR (CKD) >90 (>60 ml/min/1.73 sqM); Anion Gap 6 mmol/L; Blood Urea Nitrogen 16 mg/dL (9-20); Calcium 8.8 mg/dL (8.4-10.2); Carbon Dioxide 27 mmol/L (22-30); Chloride 106 mmol/L (98-107); Glucose 89 mg/dL (74-99); Non-African American GFR(CKD) >90 (>60 ml/min/1.73 sqM); Potassium 3.4 mmol/L (3.5-5.1); Sodium 139 mmol/L (137-145)
--- NOTE | 2021-11-15 20:07 | XR ---
EXAMINATION TYPE: XR knee complete bilateral DATE OF EXAM: 11/15/2021 7:38 PM INDICATION: Patient age:Male; 51 years old; Reason for study: pain after fall; COMPARISON: 12/26/2016 TECHNIQUE: The bilateral knees where examined in 3 projections. Frontal, lateral and oblique. FINDINGS: Mild osteophyte aeration of the tibial plateau, patella and femoral condyles. No evidence of any acute osseous pathology, joint space narrowing, soft tissue swelling, or joint effusion is no jossie. IMPRESSION: 1. No acute osseous pathology. 2. Mild tricompartmental osteoarthritic changes bilaterally.
== END 2021-11-15 21:24 | disposition home or self-care (01) ==
LOC: EC 17:02
DX: S00.93XA Contusion of unspecified part of head, initial encounter (principal); F17.200 Nicotine dependence, unspecified, uncomplicated; J44.9 Chronic obstructive pulmonary disease, unspecified; I10 Essential (primary) hypertension; I48.91 Unspecified atrial fibrillation; Z88.6 Allergy status to analgesic agent; Z88.8 Allergy status to other drugs, medicaments and biological substances; Z79.51 Long term (current) use of inhaled steroids; Z79.82 Long term (current) use of aspirin
CPT/HCPCS: 36415; 70450; 72125; 80048; 85025; 93005; 99284

== ENCOUNTER 2021-11-19 02:55 | Emergency (ER) | payer OTHER ==
[2021-11-19] MEDS ORDERED: SULFAMETHOX-TMP 800-160MG 1 EACH TAB PO STA (05:14)
[2021-11-19] MEDS ORDERED: HYDROmorphone 1 MG/ML 1 ML SYRINGE IM STA (05:14)
--- NOTE | 2021-11-19 05:16 | ED ---
Skin/Abscess/FB HPI - General Chief complaint: Skin/Abscess/Foreign Body Stated complaint: Male Time Seen by Provider: 11/19/21 03:44 Source: patient Mode of arrival: ambulatory Limitations: no limitations - Related Data Home Medications Medication Instructions Recorded Confirmed Aspirin EC [Ecotrin Low Dose] 81 mg PO DAILY 05/23/21 10/14/21 Nitroglycerin Sl Tabs [Nitrostat] 0.4 mg SL Q5M PRN 06/28/21 10/14/21 HYDROcodone/APAP 5-325MG [[place] 1 tab PO TID PRN 07/28/21 10/14/21 5-325] Albuterol Sulfate [Proair Hfa] 2 puff INHALATION RT-QID PRN 10/14/21 10/14/21 Budesonide-Formot 160-4.5 Mcg 2 puff INHALATION RT-BID 10/14/21 10/14/21 [Symbicort 160-4.5 Mcg Inhaler] Metoprolol Succinate (ER) [Toprol 100 mg PO DAILY 10/14/21 10/14/21 XL] hydrALAZINE HCL [Apresoline] 100 mg PO TID 10/14/21 10/14/21 Previous Rx's Medication Instructions Recorded Spironolactone [Aldactone] 25 mg PO DAILY #10 tab 07/06/21 Rivaroxaban [Xarelto] 20 mg PO W/SUPPER 30 Days #30 tab 07/31/21 Furosemide [Lasix] 40 mg PO BID@0900,1600 30 Days #60 08/04/21 tab Valsartan [Diovan] 320 mg PO DAILY #10 tab 10/17/21 metOLazone [Zaroxolyn] 5 mg PO DAILY #10 tab 10/17/21 Cephalexin [Keflex] 500 mg PO Q6HR #40 cap 11/13/21 Allergies Allergy/AdvReac Type Severity Reaction Status Date / Time ibuprofen [From Motrin] AdvReac Nausea & Verified 11/19/21 03:09 Vomiting simvastatin [From Zocor] AdvReac Dizziness Verified 11/19/21 03:09 Review of Systems ROS Statement: Those systems with pertinent positive or pertinent negative responses have been documented in the HPI. ROS Other: All systems not noted in ROS Statement are negative. Past Medical History Past Medical History: Atrial Fibrillation, COPD, Hyperlipidemia, Hypertension, Pneumonia Additional Past Medical History / Comment(s): Other HX; Costochondritis, chronic pain, chronic low back pain with bilateral sciatica, neuropathy bilateral hands/feet, migraines, kidney stones, past partial small bowel obstruction. HTN the last 10 yrs Stopped taking meds 5 yrs ago. COPD due to tobacco use. MArijuna use 3 -4 times a week - Smoke it History of Any Multi-Drug Resistant Organisms: MRSA Date of last positivie culture/infection: 04/10/18 MDRO Source:: TOE Past Surgical History: Heart Catheterization, Orthopedic Surgery Additional Past Surgical History / Comment(s): 03/14/18 Cardiac cath-normal coronaries, L shoulder rotator cuff repair x2, cervical injection. Past Anesthesia/Blood Transfusion Reactions: No Reported Reaction Past Psychological History: Anxiety, Bipolar, Depression, Schizophrenia Smoking Status: Current every day smoker Past Alcohol Use History: None Reported Past Drug Use History: Marijuana, Prescription Drug Abuse - Past Family History Father Family Medical History: Myocardial Infarction ([place]) Additional Family Medical History / Comment(s): mi at age 35, still living Mother Family Medical History: Myocardial Infarction ([place]) Additional Family Medical History / Comment(s): Mother has had at least one [place]- pt unsure at what age. He has not had much contact with his mother since he was 17 yrs old. General Exam Limitations: no limitations Course Vital Signs 11/19/21 03:05 Temperature 97.9 F Pulse Rate 98 Respiratory 22 Rate Blood Pressure 163/108 O2 Sat by Pulse 98 Oximetry Disposition Clinical Impression: Bilateral cellulitis of lower leg, Pedal edema, Bilateral varicoceles Disposition: HOME SELF-CARE Condition: Fair Instructions (If sedation given, give patient instructions): Cellulitis (ED) Is patient prescribed a controlled substance at d/c from ED?: No Referrals: Clif Glasgow MD [Primary Care Provider] - 1-2 days
[2021-11-19 05:35] VITALS: BP 158/97; PULSE 90; RESP 18; TEMP 97.8
== END 2021-11-19 05:35 | disposition home or self-care (01) ==
LOC: EC 02:55
DX: L03.116 Cellulitis of left lower limb (principal); R60.9 Edema, unspecified; I86.1 Scrotal varices; Z86.73 Personal history of transient ischemic attack (TIA), and cerebral infarction without residual deficits; J44.9 Chronic obstructive pulmonary disease, unspecified; E78.5 Hyperlipidemia, unspecified; I10 Essential (primary) hypertension; F41.9 Anxiety disorder, unspecified; F31.9 Bipolar disorder, unspecified; F17.200 Nicotine dependence, unspecified, uncomplicated; F12.90 Cannabis use, unspecified, uncomplicated; Z88.1 Allergy status to other antibiotic agents; Z88.8 Allergy status to other drugs, medicaments and biological substances; Z79.82 Long term (current) use of aspirin; Z79.899 Other long term (current) drug therapy
CPT/HCPCS: 99283; 96372; J1170

== ENCOUNTER 2021-11-20 16:16 | Observation (INO) | payer OTHER ==
--- NOTE | 2021-11-20 16:44 | ED ---
Chest Pain HPI - General Chief Complaint: Chest Pain Stated Complaint: chest pain, SOB Time Seen by Provider: 11/20/21 16:24 Source: patient, EMS, RN notes reviewed, old records reviewed Mode of arrival: EMS Limitations: no limitations - History of Present Illness Initial Comments: 50-year-old male with a history of A. fib CHF history of cellulitis with partially rotation of the left second toe partially 5 months ago who presents by EMS today with complaints of retrosternal chest pain shortness of breath started about 1 hour prior to arrival. Pain is sharp in nature midsternal nonradiating at this time moderate in severity. Does complains some edema to his lower extremities blisters on both feet is concern for infection. He's had chills no fevers or sweats. MD Complaint: chest pain, other - Related Data Home Medications Medication Instructions Recorded Confirmed Aspirin EC [Ecotrin Low Dose] 81 mg PO DAILY 05/23/21 10/14/21 Nitroglycerin Sl Tabs [Nitrostat] 0.4 mg SL Q5M PRN 06/28/21 10/14/21 HYDROcodone/APAP 5-325MG [[place] 1 tab PO TID PRN 07/28/21 10/14/21 5-325] Albuterol Sulfate [Proair Hfa] 2 puff INHALATION RT-QID PRN 10/14/21 10/14/21 Budesonide-Formot 160-4.5 Mcg 2 puff INHALATION RT-BID 10/14/21 10/14/21 [Symbicort 160-4.5 Mcg Inhaler] Metoprolol Succinate (ER) [Toprol 100 mg PO DAILY 10/14/21 10/14/21 XL] hydrALAZINE HCL [Apresoline] 100 mg PO TID 10/14/21 10/14/21 Previous Rx's Medication Instructions Recorded Spironolactone [Aldactone] 25 mg PO DAILY #10 tab 07/06/21 Rivaroxaban [Xarelto] 20 mg PO W/SUPPER 30 Days #30 tab 07/31/21 Furosemide [Lasix] 40 mg PO BID@0900,1600 30 Days #60 08/04/21 tab Valsartan [Diovan] 320 mg PO DAILY #10 tab 10/17/21 metOLazone [Zaroxolyn] 5 mg PO DAILY #10 tab 10/17/21 Cephalexin [Keflex] 500 mg PO Q6HR #40 cap 11/13/21 Allergies Allergy/AdvReac Type Severity Reaction Status Date / Time ibuprofen [From Motrin] AdvReac Nausea & Verified 11/20/21 16:34 Vomiting simvastatin [From Zocor] AdvReac Dizziness Verified 11/20/21 16:34 Review of Systems ROS Statement: Those systems with pertinent positive or pertinent negative responses have been documented in the HPI. ROS Other: All systems not noted in ROS Statement are negative. EKG Findings - EKG Results: EKG: interpreted by ERMD, sinus rhythm (Sinus rhythm of 91 PA interval 156 QRS duration 110 QT/QTC 411/459 evidence a left atrial enlargement and LVH nonspecific configuration this is compared with an EKG dated 10/14/21 showing no acute changes) Past Medical History Past Medical History: Atrial Fibrillation, COPD, Hyperlipidemia, Hypertension, Pneumonia Additional Past Medical History / Comment(s): Other HX; Costochondritis, chronic pain, chronic low back pain with bilateral sciatica, neuropathy bilateral hands/feet, migraines, kidney stones, past partial small bowel obstruction. HTN the last 10 yrs Stopped taking meds 5 yrs ago. COPD due to tobacco use. MArijuna use 3 -4 times a week - Smoke it History of Any Multi-Drug Resistant Organisms: MRSA Date of last positivie culture/infection: 04/10/18 MDRO Source:: TOE Past Surgical History: Heart Catheterization, Orthopedic Surgery Additional Past Surgical History / Comment(s): 03/14/18 Cardiac cath-normal coronaries, L shoulder rotator cuff repair x2, cervical injection. Past Anesthesia/Blood Transfusion Reactions: No Reported Reaction Past Psychological History: Anxiety, Bipolar, Depression, Schizophrenia Smoking Status: Current every day smoker Past Alcohol Use History: None Reported Past Drug Use History: Marijuana, Prescription Drug Abuse - Past Family History Father Family Medical History: Myocardial Infarction ([place]) Additional Family Medical History / Comment(s): mi at age 35, still living Mother Family Medical History: Myocardial Infarction (PR) Additional Family Medical History / Comment(s): Mother has had at least one PR- pt unsure at what age. He has not had much contact with his mother since he was 17 yrs old. General Exam - General Exam Comments Initial Comments: This is a well-developed well-nourished awake alert oriented 6 male Limitations: no limitations General appearance: alert, anxious Head exam: Present: atraumatic, normocephalic, normal inspection Eye exam: Present: normal appearance, PERRL, EOMI. Absent: scleral icterus, conjunctival injection, periorbital swelling ENT exam: Present: normal exam, mucous membranes moist Neck exam: Present: normal inspection, full ROM, other. Absent: tenderness, meningismus, lymphadenopathy Respiratory exam: Present: normal lung sounds bilaterally, chest wall tenderness (No stridor JVD or bruits). Absent: respiratory distress, wheezes, rales, rhonchi, stridor Cardiovascular Exam: Present: regular rate, normal rhythm, normal heart sounds. Absent: systolic murmur, diastolic murmur, rubs, gallop, clicks GI/Abdominal exam: Present: soft, normal bowel sounds. Absent: distended, tenderness, guarding, rebound, rigid Extremities exam: Present: full ROM, normal capillary refill, pedal edema, other (Healing partially patient left second toe slight erythema to both lower extremities blister seen on both medial first metatarsophalangeal joints). Absent: tenderness, joint swelling, calf tenderness Back exam: Present: normal inspection Neurological exam: Present: alert, oriented X3, CN II-XII intact Psychiatric exam: Present: normal affect, normal mood Skin exam: Present: warm, dry, erythema. Absent: intact, normal color, rash Course Vital Signs 11/20/21 11/20/21 16:29 17:14 Temperature 98.2 F Pulse Rate 98 93 Respiratory 12 19 Rate Blood Pressure 147/122 158/114 O2 Sat by Pulse 100 100 Oximetry Chest Pain MDM - MDM Imaging reviewed as well as reports no acute processes seen at this time patient does demonstrate hypomagnesemia hypokalemia blisters bilaterally and feet I did discuss case with Dr. Glasgow the patient be admitted cardiology consultation. BNP is elevated though no clinical evidence other than slight edema to lower extremities of CHF. Disposition Clinical Impression: Atypical chest pain, Hypokalemia, Hypomagnesemia, Elevated brain natriuretic peptide (BNP) level, Blister of foot Disposition: ADMITTED IP TO THIS [facility] Referrals: Clif Glasgow MD [Primary Care Provider] - 1-2 days Decision Date: 11/20/21 Decision Time: 18:05
[2021-11-20 16:58] LABS: ALT 31 U/L (4-49); AST 52 U/L (17-59); African American GFR (CKD) >90 (>60 ml/min/1.73 sqM); Albumin 3.4 g/dL (3.5-5.0); Alkaline Phosphatase 91 U/L (38-126); Anion Gap 6 mmol/L; Blood Urea Nitrogen 12 mg/dL (9-20); Calcium 8.4 mg/dL (8.4-10.2); Carbon Dioxide 21 mmol/L (22-30); Chloride 108 mmol/L (98-107); Glucose 109 mg/dL (74-99); Lipase 205 U/L (23-300); Magnesium 1.3 mg/dL (1.6-2.3); Non-African American GFR(CKD) >90 (>60 ml/min/1.73 sqM); Potassium 3.2 mmol/L (3.5-5.1); Sodium 135 mmol/L (137-145); Total Bilirubin 1.1 mg/dL (0.2-1.3)
--- NOTE | 2021-11-20 17:15 | XR ---
EXAMINATION TYPE: XR chest 2V DATE OF EXAM: 11/20/2021 COMPARISON: 10/31/2021 HISTORY: Chest pain TECHNIQUE: FINDINGS: There is no heart failure nor confluent pneumonic infiltrate. Costophrenic angles are clear . There are chest leads. Bony thorax is intact. IMPRESSION: No active cardiopulmonary disease. Inspiration decreased compared to old exam..
[2021-11-20 17:17] LABS: Basophils % (A) 1 %; Eosinophils # (A) 0.2 k/uL (0-0.7); Eosinophils % (A) 4 %; HCT 43.1 % (39.0-53.0); HGB 14.7 gm/dL (13.0-17.5); Lymphocytes # (A) 1.1 k/uL (1.0-4.8); Lymphocytes % (A) 20 %; MCH 32.3 pg (25.0-35.0); MCV 94.9 fL (80.0-100.0); Mean Platelet Volume 9.4; Monocytes # (A) 0.4 k/uL (0-1.0); Monocytes % (A) 8 %; Neutrophils # (A) 3.3 k/uL (1.3-7.7); Neutrophils % (A) 64 %; Platelet Count 176 k/uL (150-450); RBC 4.54 m/uL (4.30-5.90); RDW 14.8 % (11.5-15.5); WBC 5.2 k/uL (3.8-10.6)
--- NOTE | 2021-11-20 17:17 | XR ---
EXAMINATION TYPE: XR foot complete bilateral DATE OF EXAM: 11/20/2021 COMPARISON: NONE HISTORY: Foot pain TECHNIQUE: 3 views each foot FINDINGS: The metatarsals are intact. 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 I see no fracture nor dislocation. No focal bone destruction. There is bilateral Achilles calcaneal spurring. Joint spaces are fairly normal. IMPRESSION: No acute abnormality of the left and right foot. Calcaneal spurring.
[2021-11-20 17:29] LABS: INR 1.1 (<1.2); Partial Thromboplastin Time 23.8 sec (22.0-30.0); Prothrombin Time 11.9 sec (9.0-12.0)
[2021-11-20] MEDS ORDERED: POTASSIUM CHLORIDE ER 20 MEQ TAB.ER PO STA (17:33)
[2021-11-20] MEDS ORDERED: POTASSIUM CHLORIDE 10 MEQ in WATER FOR INJECTION 1 100ML.BAG IVPB STA (17:33)
[2021-11-20] MEDS: MAGNESIUM SULFATE-D5W PMX 1 GM in DEXTROSE/WATER 1 100ML.BAG IVPB SCH ×2 (17:45→18:59)
[2021-11-20] MEDS ORDERED: HYDROmorphone 1 MG/ML 1 ML SYRINGE IVP STA (18:02)
[2021-11-20] MEDS ORDERED: ALBUTEROL NEBULIZED 2.5 MG/3 ML INHALATION PRN (18:11)
[2021-11-20] MEDS ORDERED: HYDROcodone/APAP 5-325MG 1 EACH TAB PO PRN (18:11)
--- NOTE | 2021-11-20 19:28 | HP ---
HISTORY AND PHYSICAL DATE OF ADMISSION: 11/20/2021 CHIEF COMPLAINT: Chest pain. HISTORY OF PRESENT ILLNESS: This is another of many admissions for this 51-year-old noncompliant patient who does have coronary artery disease, cardiomyopathy and CHF. He also abuses narcotics. He was just discharged recently. REVIEW OF SYSTEMS: He has had no headaches. He has had some shortness of breath without hemoptysis. He has had no abdominal pain. He does have some abdominal distention. He also has peripheral edema. He denies any urinary complaints. Laboratory studies revealed a BNP of 1560 and a potassium 3.2 with a magnesium of 1.3. He states he no longer smokes or drinks. PHYSICAL EXAMINATION: Blood pressure is 140/90 with a pulse of 88 and regular. Respirations were 33. He was afebrile. In general he appeared to be chronically ill in appearance. Head, ears, eyes, nose, mouth and throat were normal. Neck veins were not distended. Chest demonstrated decreased breath sounds with scattered rales and rhonchi. Cardiac exam demonstrated sinus tachycardia. There was an S3 and S4. The abdomen was slightly protuberant, soft and nontender. Extremities demonstrated 3 to 4+ dependent edema. Neurologically he was intact. He is admitted to the hospital with diagnoses: 1. Acute congestive heart failure. 2. Chronic congestive heart failure. 3. Cardiomyopathy. 4. Hypokalemia. 5. Hypomagnesemia. 6. Narcotic abuse. PLAN: 1. Bedrest. 2. IV fluids. 3. Correct hypokalemia and hypomagnesemia. 4. Treat congestive heart failure. 5. Consult Cardiology. MMGURMEET / JENNIFER: [id number] /
[2021-11-20] MEDS: SYMBICORT 160-4.5 MCG INHALER INHALATION SCH (19:55)
[2021-11-20] MEDS: hydrALAZINE HCL 50 MG TAB PO SCH (22:43)
[2021-11-21] MEDS: SYMBICORT 160-4.5 MCG INHALER INHALATION SCH ×2 (08:01→19:37)
[2021-11-21 08:26] LABS: Basophils % (A) 1 %; Eosinophils # (A) 0.3 k/uL (0-0.7); Eosinophils % (A) 5 %; HCT 48.1 % (39.0-53.0); HGB 15.5 gm/dL (13.0-17.5); Lymphocytes # (A) 1.1 k/uL (1.0-4.8); Lymphocytes % (A) 23 %; MCH 31.2 pg (25.0-35.0); MCHC 32.1 g/dL (31.0-37.0); MCV 97.2 fL (80.0-100.0); Mean Platelet Volume 8.7; Monocytes # (A) 0.4 k/uL (0-1.0); Monocytes % (A) 9 %; Neutrophils % (A) 61 %; Platelet Count 204 k/uL (150-450); RBC 4.95 m/uL (4.30-5.90); RDW 14.4 % (11.5-15.5); WBC 4.9 k/uL (3.8-10.6)
[2021-11-21 08:38] LABS: African American GFR (CKD) >90 (>60 ml/min/1.73 sqM); Anion Gap 4 mmol/L; Blood Urea Nitrogen 11 mg/dL (9-20); Calcium 8.3 mg/dL (8.4-10.2); Carbon Dioxide 25 mmol/L (22-30); Chloride 109 mmol/L (98-107); Glucose 74 mg/dL (74-99); Magnesium 1.8 mg/dL (1.6-2.3); Non-African American GFR(CKD) >90 (>60 ml/min/1.73 sqM); Potassium 3.7 mmol/L (3.5-5.1); Sodium 138 mmol/L (137-145)
[2021-11-21] MEDS: METOPROLOL SUCCINATE (ER) 100 MG TAB.ER.24H PO SCH (08:38)
[2021-11-21] MEDS: ASPIRIN 81 MG PO SCH (08:38)
[2021-11-21] MEDS: FUROSEMIDE 40 MG TAB PO SCH ×2 (08:38→15:40)
[2021-11-21] MEDS: SPIRONOLACTONE 25 MG TAB PO SCH (08:38)
[2021-11-21] MEDS: hydrALAZINE HCL 50 MG TAB PO SCH ×3 (08:38→21:46)
[2021-11-21] MEDS ORDERED: NITROGLYCERIN 0.4 MG SL PRN (10:17)
[2021-11-21] MEDS: metOLazone 5 MG TAB PO SCH (10:18)
[2021-11-21] MEDS: VALSARTAN 160 MG TAB PO SCH (10:18)
--- NOTE | 2021-11-21 12:08 | P.CRDCN ---
History of Present Illness History of present illness: This is Dr. Haile dictating a consult on this patient The patient was interviewed and examined IMPRESSION / ASSESSMENT: Recurrent intermittent chest discomfort for 10 years Normal cardiac enzymes Sinus mechanism LVH nonspecific ST-T of normality Second EKG shows normal ST segments PLAN: 2-D echo and Doppler study to assess cardiac structure and function Lipid panel Hemoglobin A1c HPI Patient presented to the hospital with recurrent chest discomfort and shortness of breath He also has blisters in both feet and some cellulitis and edema He has a history of hypertension and is on Diovan Lasix spironolactone xarelto and metoprolol as well as hydralazine Elevated BNP ROS: No fever chills or rigors, no cough, phlegm or expectoration, no nausea, vomiting or diarrhea, no hematuria, dysuria, no musculoskeletal complaints, no strokes or seizures, no skin lesions. EXAMINATION: Blood pressure 138/90 and 154 100 mmHg afebrile pulse rate in the 70s Breath sounds are clear no rhonchi no crackles Heart sounds S1 and S2 are soft Clear lungs Mild lower extremity edema REVIEW OF LABS, ECG & MEDICAL DATA Sodium 138 potassium 3.7 BUN 11 creatinine 0.8 Hemoglobin 15.5 Past Medical History Past Medical History: Atrial Fibrillation, COPD, Hyperlipidemia, Hypertension, Pneumonia Additional Past Medical History / Comment(s): Other HX; Costochondritis, chronic pain, chronic low back pain with bilateral sciatica, neuropathy bilateral hands/feet, migraines, kidney stones, past partial small bowel obstruction. HTN the last 10 yrs Stopped taking meds 5 yrs ago. 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 Past Anesthesia/Blood Transfusion Reactions: No Reported Reaction Past Psychological History: Anxiety, Bipolar, Depression, Schizophrenia Additional Psychological History / Comment(s): Pt was on Mental Health 2 years ago at [facility] for suicidal ideation - Not seeing anyone currently Smoking Status: Current every day smoker Past Alcohol Use History: None Reported Additional Past Alcohol Use History / Comment(s): Started smoking at age 15- smoked 1 ppd but has cut down to 1/2 pack a day Past Drug Use History: Marijuana, Prescription Drug Abuse Additional Drug Use History / Comment(s): Pt smokes marijuana daily, and regular cigarrettes daily - Past Family History Father Family Medical History: Myocardial Infarction ([place]) Additional Family Medical History / Comment(s): mi at age 35, still living Mother Family Medical History: Myocardial Infarction ([place]) Additional Family Medical History / Comment(s): Mother has had at least one [place]- pt unsure at what age. He has not had much contact with his mother since he was 17 yrs old. Medications and Allergies Home Medications Medication Instructions Recorded Confirmed Type Aspirin EC [Ecotrin Low Dose] 81 mg PO DAILY 05/23/21 11/20/21 History Nitroglycerin Sl Tabs [Nitrostat] 0.4 mg SL Q5M PRN 06/28/21 11/20/21 History Rivaroxaban [Xarelto] 20 mg PO W/SUPPER 30 Days #30 tab 07/31/21 11/20/21 Rx Furosemide [Lasix] 40 mg PO BID@0900,1600 30 Days #60 08/04/21 11/20/21 Rx tab Albuterol Sulfate [Proair Hfa] 2 puff INHALATION RT-QID PRN 10/14/21 11/20/21 History Budesonide-Formot 160-4.5 Mcg 2 puff INHALATION RT-BID 10/14/21 11/20/21 History [Symbicort 160-4.5 Mcg Inhaler] Metoprolol Succinate (ER) [Toprol 100 mg PO DAILY 10/14/21 11/20/21 History XL] hydrALAZINE HCL [Apresoline] 100 mg PO TID 10/14/21 11/20/21 History metOLazone [Zaroxolyn] 5 mg PO DAILY #10 tab 10/17/21 11/20/21 Rx HYDROcodone/APAP 10-325MG [[place] 1 tab PO QID 11/20/21 11/20/21 History 10-325] cloNIDine HCL [Catapres] 0.3 mg PO TID 11/20/21 11/20/21 History lisinopriL 40 mg PO DAILY 11/20/21 11/20/21 History Allergies Allergy/AdvReac Type Severity Reaction Status Date / Time ibuprofen [From Motrin] AdvReac Nausea & Verified 11/20/21 18:59 Vomiting simvastatin [From Zocor] AdvReac Dizziness Verified 11/20/21 18:59 Physical Exam Vitals: Vital Signs Temp Pulse Pulse Pulse Resp BP BP 11/21/21 10:18 82 16 11/21/21 08:00 98.2 F 87 18 154/100 11/21/21 04:20 97.8 F 78 18 138/90 11/21/21 00:05 97.9 F 80 18 137/90 11/20/21 22:05 97.8 F 89 20 160/95 11/20/21 19:01 95 18 155/110 11/20/21 17:14 93 19 158/114 11/20/21 16:29 98.2 F 98 12 147/122 Pulse Ox 11/21/21 10:18 98 11/21/21 08:00 100 11/21/21 04:20 99 11/21/21 00:05 99 11/20/21 22:05 100 11/20/21 19:01 98 11/20/21 17:14 100 11/20/21 16:29 100 Intake and Output 11/20/21 11/21/21 11/21/21 22:59 06:59 14:59 Intake Total 360 420 Balance 360 420 Intake: Oral 360 420 Other: Voiding Method Urinal Urinal # Voids 1 Weight 92.533 kg Results 11/21/21 08:05 11/21/21 08:05 Cardiac Enzymes 11/20/21 11/20/21 11/20/21 Range/Units 16:35 16:35 18:24 AST 52 (17-59) U/L Troponin I <0.012 <0.012 (0.000-0.034) ng/mL 11/20/21 Range/Units 21:08 AST (17-59) U/L Troponin I <0.012 (0.000-0.034) ng/mL Coagulation 11/20/21 Range/Units 16:35 PT 11.9 (9.0-12.0) sec APTT 23.8 (22.0-30.0) sec CBC 11/20/21 11/21/21 Range/Units 16:35 08:05 WBC 5.2 4.9 (3.8-10.6) k/uL RBC 4.54 4.95 (4.30-5.90) m/uL Hgb 14.7 15.5 (13.0-17.5) gm/dL Hct 43.1 48.1 (39.0-53.0) % Plt Count 176 204 (150-450) k/uL Comprehensive Metabolic Panel 11/20/21 11/21/21 Range/Units 16:35 08:05 Sodium 135 L 138 (137-145) mmol/L Potassium 3.2 L 3.7 (3.5-5.1) mmol/L Chloride 108 H 109 H (98-107) mmol/L Carbon Dioxide 21 L 25 (22-30) mmol/L BUN 12 11 (9-20) mg/dL Creatinine 0.75 0.79 (0.66-1.25) mg/dL Glucose 109 H 74 (74-99) mg/dL Calcium 8.4 8.3 L (8.4-10.2) mg/dL AST 52 (17-59) U/L ALT 31 (4-49) U/L Alkaline Phosphatase 91 (38-126) U/L Total Protein 6.0 L (6.3-8.2) g/dL Albumin 3.4 L (3.5-5.0) g/dL Current Medications Generic Name Dose Route Start Last Admin Trade Name Freq PRN Reason Stop Dose Admin Hydrocodone Bitart/Acetaminophen 1 each 11/20/21 18:11 11/21/21 10:18 Hydrocodone/Apap 5-325mg 1 Each Tab PO 1 each TID PRN Administration Pain Hydrocodone Bitart/Acetaminophen 1 each 11/21/21 13:00 Hydrocodone/Apap 10-325mg 1 Each Tab PO QID GILES Albuterol Sulfate 2.5 mg 11/20/21 18:11 Albuterol Nebulized 2.5 Mg/3 Ml INHALATION RT-QID PRN Shortness Of Breath Aspirin 81 mg 11/21/21 09:00 11/21/21 08:38 Aspirin 81 Mg PO 81 mg DAILY GILES Administration Budesonide/Formoterol Fumarate 2 puff 11/20/21 20:00 11/21/21 08:01 Symbicort 160-4.5 Mcg Inhaler INHALATION 2 puff RT-BID GILES Administration Clonidine 0.3 mg 11/21/21 16:00 Clonidine Hcl 0.1 Mg Tab PO TID GILES Furosemide 40 mg 11/21/21 09:00 11/21/21 08:38 Furosemide 40 Mg Tab PO 40 mg BID@0900,1600 [facility] Administration Hydralazine HCl 100 mg 11/20/21 22:00 11/21/21 08:38 Hydralazine Hcl 50 Mg Tab PO 100 mg TID [facility] Administration Lisinopril 40 mg 11/22/21 09:00 Lisinopril 20 Mg Tab PO DAILY [facility] Metolazone 5 mg 11/21/21 09:00 11/21/21 10:18 Metolazone 5 Mg Tab PO 5 mg DAILY [facility] Administration Metoprolol Succinate 100 mg 11/21/21 09:00 11/21/21 08:38 Metoprolol Succinate (Er) 100 Mg Tab.Er.24h PO 100 mg DAILY [facility] Administration Nitroglycerin 0.4 mg 11/20/21 18:07 Nitroglycerin Sl Tabs 0.4 Mg Tab SUBLINGUAL Q5M PRN Chest Pain Rivaroxaban 20 mg 11/21/21 17:30 Rivaroxaban 20 Mg Tab PO W/SUPPER [facility] Protocol Spironolactone 25 mg 11/21/21 09:00 11/21/21 08:38 Spironolactone 25 Mg Tab PO 25 mg DAILY [facility] Administration Valsartan 320 mg 11/21/21 09:00 11/21/21 10:18 Valsartan 160 Mg Tab PO 320 mg DAILY [facility] Administration Intake and Output 11/20/21 11/21/21 11/21/21 22:59 06:59 14:59 Intake Total 360 420 Balance 360 420 Intake: Oral 360 420 Other: Voiding Method Urinal Urinal # Voids 1 Weight 92.533 kg 11/21/21 08:05 11/21/21 08:05
[2021-11-21] MEDS: HYDROcodone/APAP 10-325MG 1 EACH TAB PO SCH ×3 (14:26→21:46)
[2021-11-21 14:35] LABS: Chol/HDL Ratio 2.96 Ratio; LDL Cholesterol,Calculated 61.2 mg/dL (0.0-131.0); VLDL Calculation 17.62 mg/dL (5.00-40.00)
[2021-11-21] MEDS: cloNIDine HCL 0.1 MG TAB PO SCH ×2 (15:40→21:46)
[2021-11-21] MEDS: RIVAROXABAN 20 MG TAB PO SCH (16:48)
--- NOTE | 2021-11-21 18:29 | PN ---
PROGRESS NOTE CHIEF COMPLAINT: Chest pain. HISTORY OF PRESENT ILLNESS: This gentleman is doing fairly well at the present time. He is not complaining of pain. He states he is still short of breath. PHYSICAL EXAMINATION: He does have decreased breath sounds with scattered rales posteriorly. Cardiac exam is unchanged. Abdomen is soft. He has about 3+ edema. IMPRESSION: 1. Chest pain. 2. Chronic congestive heart failure. 3. Cardiomyopathy. 4. Hypokalemia. 5. Hypomagnesemia. 6. . PLAN: Diuresis and await cardiac re-evaluation by Cardiology. MMODL / IJN: [id number] /
[2021-11-22] MEDS: SYMBICORT 160-4.5 MCG INHALER INHALATION SCH ×2 (07:39→19:27)
[2021-11-22] MEDS: SPIRONOLACTONE 25 MG TAB PO SCH (08:13)
[2021-11-22] MEDS: HYDROcodone/APAP 10-325MG 1 EACH TAB PO SCH ×4 (08:13→21:29)
[2021-11-22] MEDS: cloNIDine HCL 0.1 MG TAB PO SCH ×3 (08:13→21:29)
[2021-11-22] MEDS: VALSARTAN 160 MG TAB PO SCH (08:13)
[2021-11-22] MEDS: hydrALAZINE HCL 50 MG TAB PO SCH ×3 (08:13→21:29)
[2021-11-22] MEDS: metOLazone 5 MG TAB PO SCH (08:13)
[2021-11-22] MEDS: ASPIRIN 81 MG PO SCH (08:13)
[2021-11-22] MEDS: METOPROLOL SUCCINATE (ER) 100 MG TAB.ER.24H PO SCH (08:14)
[2021-11-22] MEDS: FUROSEMIDE 40 MG TAB PO SCH ×2 (08:14→17:29)
[2021-11-22] MEDS: lisinopriL 20 MG TAB PO SCH (08:14)
--- NOTE | 2021-11-22 11:02 | CA ---
Transthoracic Echo Report Name: Micky Webb Age: 51 Gender: M : 1970 Exam Date: 11/22/2021 08:47 Exam Location: [place] [facility] Ht (in): 69 Wt (lb): 204 Ordering Physician: Vinicius Haile MD ([id number]) Attending/Referring Phys: Sander Setter Nuria Wilder RDCS Procedure CPT: Indications: Heart failure Cardiac Hx: Hx of chf Technical Quality: Fair Contrast 1: Total Dose (mL): Contrast 2: Total Dose (mL): MEASUREMENTS (Male / Female) Normal Values 2D ECHO LV Diastolic Diameter PLAX 4.8 cm 4.2 - 5.9 / 3.9 - 5.3 cm LV Systolic Diameter PLAX 4.1 cm IVS Diastolic Thickness 1.1 cm 0.6 - 1.0 / 0.6 - 0.9 cm LVPW Diastolic Thickness 1.3 cm 0.6 - 1.0 / 0.6 - 0.9 cm LV Relative Wall Thickness 0.5 RV Internal Dim ED PLAX 4.1 cm M-MODE LV Diastolic Diameter MM 6.7 cm 4.2 - 5.9 / 3.9 - 5.3 cm LV Systolic Diameter MM 5.7 cm IVS Diastolic Thickness MM 0.9 cm 0.6 - 1.0 / 0.6 - 0.9 cm LVPW Diastolic Thickness MM 1.3 cm 0.6 - 1.0 / 0.6 - 0.9 cm LV Relative Wall Thickness MM 0.3 0.24 - 0.42 / 0.22 - 0.42 LV Mass Index MM 157.4 g/m??? 49 - 115 / 43 - 95 g/m??? Aortic Root Diameter MM 3.6 cm LA Systolic Diameter MM 3.5 cm LA Ao Ratio MM 1.0 MV E Point Septal Separation 1.6 cm AV Cusp Separation MM 2.6 cm DOPPLER AV Peak Velocity 107.6 cm/s AV Peak Gradient 4.6 mmHg MV Area PHT 3.2 cm??? MR Peak Velocity 385.0 cm/s MR Peak Gradient 59.3 mmHg Mitral E Point Velocity 80.7 cm/s Mitral A Point Velocity 48.1 cm/s Mitral E to A Ratio 1.7 MV Deceleration Time 235.0 ms MV E' Velocity 5.4 cm/s Mitral E to MV E' Ratio 14.8 TR Peak Velocity 308.5 cm/s TR Peak Gradient 38.1 mmHg Right Ventricular Systolic Press 58.1 mmHg FINDINGS Left Ventricle Moderate concentric increased left ventricular thickness. Moderately increased left ventricular diastolic diameter. Left ventricular ejection fraction is estimated at 25-30 % with global hypokinesis. Grade 3 diastolic dysfunction. Right Ventricle Mild to moderate right ventricular dilatation. Pulmonary hypertension RVSP 58mmHg. Right Atrium Normal right atrial size. Left Atrium Normal left atrial size. Mitral Valve Structurally normal mitral valve. Mild mitral regurgitation. Aortic Valve Structurally normal aortic valve without significant sclerosis or stenosis. There is no aortic regurgitation. 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 Consider cardiac MRI if clinically indicated. Severe tricuspid regurgitation. Pulmonic Valve Structurally normal pulmonic valve without significant stenosis. There is no pulmonic regurgitation. Pericardium Normal pericardium without effusion. Aorta Normal aortic root dimension. CONCLUSIONS Moderate LVH Left ventricular ejection fraction is estimated at 25-30 % with global hypokinesis. 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 Consider cardiac MRI if clinically indicated. Severe tricuspid regurgitation. Previewed by: Dr. Maldonado Benjamin DO (Electronically Signed) Final Date: 22 November 2021 11:01
[2021-11-22] MEDS: NITROGLYCERIN SL TABS 0.4 MG TAB SUBLINGUAL PRN ×3 (15:57→16:11)
[2021-11-22] MEDS: RIVAROXABAN 20 MG TAB PO SCH (17:29)
[2021-11-23] MEDS: SYMBICORT 160-4.5 MCG INHALER INHALATION SCH (08:11)
[2021-11-23] MEDS: METOPROLOL SUCCINATE (ER) 100 MG TAB.ER.24H PO SCH (09:09)
[2021-11-23] MEDS: SPIRONOLACTONE 25 MG TAB PO SCH (09:09)
[2021-11-23] MEDS: HYDROcodone/APAP 10-325MG 1 EACH TAB PO SCH ×3 (09:09→17:43)
[2021-11-23] MEDS: ASPIRIN 81 MG PO SCH (09:09)
[2021-11-23] MEDS: VALSARTAN 160 MG TAB PO SCH (09:10)
[2021-11-23] MEDS: metOLazone 5 MG TAB PO SCH (09:10)
[2021-11-23] MEDS: FUROSEMIDE 40 MG TAB PO SCH ×2 (09:10→17:42)
[2021-11-23] MEDS: hydrALAZINE HCL 50 MG TAB PO SCH ×2 (09:16→17:41)
[2021-11-23] MEDS: cloNIDine HCL 0.1 MG TAB PO SCH ×2 (09:16→17:41)
[2021-11-23 09:17] VITALS: BP 95/49; RESP 18; TEMP 97.9
[2021-11-23] MEDS: lisinopriL 20 MG TAB PO SCH (10:08)
[2021-11-23 13:18] VITALS: PULSE 69
[2021-11-23] MEDS: RIVAROXABAN 20 MG TAB PO SCH (17:43)
[2021-11-23] MEDS ORDERED: POTASSIUM CHLORIDE ER 20 MEQ TAB.ER PO SCH (21:00)
--- NOTE | 2021-11-24 08:11 | PN ---
PROGRESS NOTE DATE OF SERVICE: 11/21/2021 CHIEF COMPLAINT: Chest pain and shortness of breath. HISTORY OF PRESENT ILLNESS: This gentleman is continuing to complain of chest pain, shortness of breath. He is being evaluated by Cardiology. Troponin have been normal. PHYSICAL EXAMINATION: Chest is clear. Cardiac exam demonstrates tachycardia. There is an S4. The abdomen is soft, nontender and extremities are edematous. IMPRESSION: 1. Chest pain. 2. Shortness of breath. 3. Coronary artery disease. 4. Acute and chronic congestive heart failure with reduced ejection fraction. PLAN: 1. Await further recommendations of Cardiology. 2. Echocardiogram. MMODL / IJN: [id number] /
--- NOTE | 2021-11-24 08:47 | PN ---
PROGRESS NOTE CHIEF COMPLAINT: Chest pain and congestive heart failure. HISTORY OF PRESENT ILLNESS: This gentleman continues to have chest pain. Cardiology has not seen him today. PHYSICAL EXAMINATION: He continues to have fairly clear breath sounds with occasional rales. Cardiac exam is unchanged with an S4. Abdomen is soft. Extremities are edematous. IMPRESSION: 1. Chest pain. 2. Coronary artery disease. 3. ( ). 4. Analgesic abuse. 5. Low back pain. PLAN: He is asking for stronger pain medicine but he is already on Vicodin 10 mg and he was told he could not be given anymore. We await further guidelines from cardiology. He might be able to go home. MMODL / IJN: [id number] /
--- NOTE | 2021-11-24 09:26 | DS ---
DISCHARGE SUMMARY date of discharge chief complaint chest pain and shortness of breath. HISTORY OF PRESENT ILLNESS AND PHYSICAL EXAMINATION: Details of this man's history and physical can be found in the initial workup. LABORATORY STUDIES: While he was in the hospital he had laboratory studies, details of which can be found in the laboratory section of his chart. COURSE IN THE HOSPITAL: After admission he was placed on bedrest, started on intravenous fluids and had serial EKGs and enzymes. Troponins remained normal. He was seen by Cardiology. They ordered an echocardiogram which basically confirmed findings from his older ones. His ejection fraction was around 20%. There was nothing further felt was necessary to improve this patient's situation. He was told it is important to improve his lifestyle and stop drug use. He will go home on his usual activity, diet and medications and will be seen in the office in several days. FINAL DIAGNOSES: 1. Chest pain. 2. Unstable angina pectoris. 3. Coronary artery disease. 4. Atherosclerotic chronic congestive heart failure with reduced ejection fraction. 5. Dependent edema. 6. Narcotic abuse. OPERATIONS: None. CONSULTATION: Cardiology. He is improved. MMODL / IJN: [id number] /
== END 2021-11-23 17:46 | disposition home or self-care (01) ==
LOC: EC 16:16 → INTOOBSV 18:14 → 3SCARD 18:14 → UNDODISIN 11-23 17:46
PROVIDERS: ADMIT Family Medicine; ATTEND Family Medicine
DX: I11.0 Hypertensive heart disease with heart failure (principal); I50.23 Acute on chronic systolic (congestive) heart failure; I25.110 Atherosclerotic heart disease of native coronary artery with unstable angina pectoris; E83.42 Hypomagnesemia; E87.6 Hypokalemia; I42.9 Cardiomyopathy, unspecified; I08.1 Rheumatic disorders of both mitral and tricuspid valves; I27.20 Pulmonary hypertension, unspecified; I48.91 Unspecified atrial fibrillation; S90.821A Blister (nonthermal), right foot, initial encounter; S90.822A Blister (nonthermal), left foot, initial encounter; G43.909 Migraine, unspecified, not intractable, without status migrainosus; E78.5 Hyperlipidemia, unspecified; J44.9 Chronic obstructive pulmonary disease, unspecified; G89.29 Other chronic pain; L03.115 Cellulitis of right lower limb; L03.116 Cellulitis of left lower limb; M54.41 Lumbago with sciatica, right side; M54.42 Lumbago with sciatica, left side; G62.9 Polyneuropathy, unspecified; R79.89 Other specified abnormal findings of blood chemistry; F17.210 Nicotine dependence, cigarettes, uncomplicated; F11.10 Opioid abuse, uncomplicated; F20.9 Schizophrenia, unspecified; F31.9 Bipolar disorder, unspecified; F41.9 Anxiety disorder, unspecified; Z91.19 Patient's noncompliance with other medical treatment and regimen; Z79.01 Long term (current) use of anticoagulants; Z79.51 Long term (current) use of inhaled steroids; Z79.82 Long term (current) use of aspirin; Z79.899 Other long term (current) drug therapy; Z88.6 Allergy status to analgesic agent; Z88.8 Allergy status to other drugs, medicaments and biological substances; Z86.14 Personal history of Methicillin resistant Staphylococcus aureus infection; Z87.01 Personal history of pneumonia (recurrent); Z87.442 Personal history of urinary calculi; Z87.19 Personal history of other diseases of the digestive system; Z98.890 Other specified postprocedural states; Z82.49 Family history of ischemic heart disease and other diseases of the circulatory system
CPT/HCPCS: 96368; 96365; 96375; 99285; 36415; 94640 ×2; 93306; 85379; 83880; 80061; 80053; 80048; 83690; 83735 ×2; 84484 ×2; 85025 ×2; 85610; 85730; 87040; 73630; 71046; G0378 ×4; J1170; J3475; J3480; 96367

== ENCOUNTER 2021-11-24 17:39 | Emergency (ER) | payer OTHER ==
[2021-11-24 17:50] VITALS: TEMP 97.9
[2021-11-24] MEDS ORDERED: ASPIRIN 81 MG PO STA (18:10)
[2021-11-24] MEDS ORDERED: NITROGLYCERIN OINT 1 INCH/GM PACKET TOPICAL STA (18:10)
--- NOTE | 2021-11-24 18:15 | ED ---
General Adult HPI - General Chief complaint: Chest Pain Stated complaint: chest pain Time Seen by Provider: 11/24/21 17:50 Source: patient, RN notes reviewed, old records reviewed Mode of arrival: ambulatory Limitations: no limitations - History of Present Illness Initial comments: This is a 51-year-old male who presents emergency Department complaining of chest pain. Patient states his been ongoing since he left the hospital yesterday. Patient states she's also short of breath. Patient states this is a same pain he always gets when he has his chest pain. Patient denies any fever chills or cough. Patient denies a headache patient denies lightheadedness or dizziness. Patient denies any abdominal pain patient denies nausea vomiting or diarrhea. - Related Data Home Medications Medication Instructions Recorded Confirmed Aspirin EC [Ecotrin Low Dose] 81 mg PO DAILY 05/23/21 11/20/21 Nitroglycerin Sl Tabs [Nitrostat] 0.4 mg SL Q5M PRN 06/28/21 11/20/21 Albuterol Sulfate [Proair Hfa] 2 puff INHALATION RT-QID PRN 10/14/21 11/20/21 Budesonide-Formot 160-4.5 Mcg 2 puff INHALATION RT-BID 10/14/21 11/20/21 [Symbicort 160-4.5 Mcg Inhaler] Metoprolol Succinate (ER) [Toprol 100 mg PO DAILY 10/14/21 11/20/21 XL] hydrALAZINE HCL [Apresoline] 100 mg PO TID 10/14/21 11/20/21 HYDROcodone/APAP 10-325MG [[place] 1 tab PO QID 11/20/21 11/20/21 10-325] cloNIDine HCL [Catapres] 0.3 mg PO TID 11/20/21 11/20/21 lisinopriL 40 mg PO DAILY 11/20/21 11/20/21 Previous Rx's Medication Instructions Recorded Rivaroxaban [Xarelto] 20 mg PO W/SUPPER 30 Days #30 tab 07/31/21 Furosemide [Lasix] 40 mg PO BID@0900,1600 30 Days #60 08/04/21 tab metOLazone [Zaroxolyn] 5 mg PO DAILY #10 tab 10/17/21 Potassium Chloride ER [[place] 20] 20 meq PO BID #60 tab 11/23/21 Spironolactone [Aldactone] 25 mg PO DAILY #30 tab 11/23/21 Allergies Allergy/AdvReac Type Severity Reaction Status Date / Time ibuprofen [From Motrin] AdvReac Nausea & Verified 11/24/21 17:50 Vomiting simvastatin [From Zocor] AdvReac Dizziness Verified 11/24/21 17:50 Review of Systems ROS Statement: Those systems with pertinent positive or pertinent negative responses have been documented in the HPI. ROS Other: All systems not noted in ROS Statement are negative. Past Medical History Past Medical History: Atrial Fibrillation, COPD, Hyperlipidemia, Hypertension, Pneumonia Additional Past Medical History / Comment(s): Other HX; Costochondritis, chronic pain, chronic low back pain with bilateral sciatica, neuropathy bilateral hands/feet, migraines, kidney stones, past partial small bowel obstruction. HTN the last 10 yrs Stopped taking meds 5 yrs ago. 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 Past Anesthesia/Blood Transfusion Reactions: No Reported Reaction Past Psychological History: Anxiety, Bipolar, Depression, Schizophrenia Smoking Status: Current every day smoker Past Alcohol Use History: None Reported Past Drug Use History: Marijuana, Prescription Drug Abuse - Past Family History Father Family Medical History: Myocardial Infarction ([place]) Additional Family Medical History / Comment(s): mi at age 35, still living Mother Family Medical History: Myocardial Infarction ([place]) Additional Family Medical History / Comment(s): Mother has had at least one [place]- pt unsure at what age. He has not had much contact with his mother since he was 17 yrs old. General Exam - General Exam Comments Initial Comments: GENERAL: Patient is well-developed and well-nourished. Patient is nontoxic and well- hydrated and is in no acute distress. ENT: Neck is soft and supple. No significant lymphadenopathy is noted. Oropharynx is clear. Moist mucous membranes. Neck has full range of motion without eliciting any pain. There is no thyroid enlargement and no masses were felt. EYES: The sclera were anicteric and conjunctiva were pink and moist. Extraocular movements were intact and pupils were equal round and reactive to light. Eyelids were unremarkable. PULMONARY: Unlabored respirations. Good breath sounds bilaterally. No audible rales rhonchi or wheezing was noted. CARDIOVASCULAR: There is a regular rate and rhythm without any murmurs gallops or rubs. ABDOMEN: Soft and nontender with normal bowel sounds. SKIN: Skin is clear with no lesions or rashes and otherwise unremarkable. NEUROLOGIC: Patient is alert and oriented x3. Cranial nerves II through XII are grossly intact. Motor and sensory are also intact. Normal speech, volume and content. Symmetrical smile. MUSCULOSKELETAL: Normal extremities with adequate strength and full range of motion. LYMPHATICS: No significant lymphadenopathy is noted PSYCHIATRIC: Normal psychiatric evaluation. Limitations: no limitations Course Vital Signs 11/24/21 11/24/21 17:47 19:23 Temperature 97.9 F Pulse Rate 80 65 Respiratory 20 18 Rate Blood Pressure 127/80 126/74 O2 Sat by Pulse 100 98 Oximetry Medical Decision Making - Medical Decision Making EKG shows sinus rhythm at 65 bpm AK interval 179 QRSs 170 QT interval 420 QTC is 440. Patient's EKG shows no ST segment elevation or depression. Chest x-ray shows no acute abnormality I went back into the room twice discuss results the patient both times patient was sleeping at be awaken. Patient did not appear in any distress distress. - Lab Data Result diagrams: 11/24/21 18:56 11/24/21 18:56 Lab Results 11/24/21 11/24/21 11/24/21 Range/Units 18:56 18:56 18:56 WBC 6.2 (3.8-10.6) k/uL RBC 4.63 (4.30-5.90) m/uL Hgb 14.3 (13.0-17.5) gm/dL Hct 44.1 (39.0-53.0) % MCV 95.2 (80.0-100.0) fL MCH 31.0 (25.0-35.0) pg MCHC 32.5 (31.0-37.0) g/dL RDW 14.6 (11.5-15.5) % Plt Count 201 (150-450) k/uL MPV 8.9 Neutrophils % 60 % Lymphocytes % 22 % Monocytes % 11 % Eosinophils % 4 % Basophils % 1 % Neutrophils # 3.8 (1.3-7.7) k/uL Lymphocytes # 1.4 (1.0-4.8) k/uL Monocytes # 0.7 (0-1.0) k/uL Eosinophils # 0.3 (0-0.7) k/uL Basophils # 0.0 (0-0.2) k/uL PT 12.4 H (9.0-12.0) sec INR 1.2 H (<1.2) APTT 25.6 (22.0-30.0) sec Sodium 137 (137-145) mmol/L Potassium 3.9 (3.5-5.1) mmol/L Chloride 107 (98-107) mmol/L Carbon Dioxide 25 (22-30) mmol/L Anion Gap 5 mmol/L BUN 25 H (9-20) mg/dL Creatinine 1.07 (0.66-1.25) mg/dL Est GFR (CKD-EPI)AfAm >90 (>60 ml/min/1.73 sqM) Est GFR (CKD-EPI)NonAf 82 (>60 ml/min/1.73 sqM) Glucose 84 (74-99) mg/dL Calcium 9.3 (8.4-10.2) mg/dL Magnesium 1.5 L (1.6-2.3) mg/dL Total Bilirubin 0.5 (0.2-1.3) mg/dL AST 45 (17-59) U/L ALT 34 (4-49) U/L Alkaline Phosphatase 118 (38-126) U/L Troponin I (0.000-0.034) ng/mL Total Protein 6.3 (6.3-8.2) g/dL Albumin 3.7 (3.5-5.0) g/dL 11/24/21 Range/Units 18:56 WBC (3.8-10.6) k/uL RBC (4.30-5.90) m/uL Hgb (13.0-17.5) gm/dL Hct (39.0-53.0) % MCV (80.0-100.0) fL MCH (25.0-35.0) pg MCHC (31.0-37.0) g/dL RDW (11.5-15.5) % Plt Count (150-450) k/uL MPV Neutrophils % % Lymphocytes % % Monocytes % % Eosinophils % % Basophils % % Neutrophils # (1.3-7.7) k/uL Lymphocytes # (1.0-4.8) k/uL Monocytes # (0-1.0) k/uL Eosinophils # (0-0.7) k/uL Basophils # (0-0.2) k/uL PT (9.0-12.0) sec INR (<1.2) APTT (22.0-30.0) sec Sodium (137-145) mmol/L Potassium (3.5-5.1) mmol/L Chloride (98-107) mmol/L Carbon Dioxide (22-30) mmol/L Anion Gap mmol/L BUN (9-20) mg/dL Creatinine (0.66-1.25) mg/dL Est GFR (CKD-EPI)AfAm (>60 ml/min/1.73 sqM) Est GFR (CKD-EPI)NonAf (>60 ml/min/1.73 sqM) Glucose (74-99) mg/dL Calcium (8.4-10.2) mg/dL Magnesium (1.6-2.3) mg/dL Total Bilirubin (0.2-1.3) mg/dL AST (17-59) U/L ALT (4-49) U/L Alkaline Phosphatase (38-126) U/L Troponin I <0.012 (0.000-0.034) ng/mL Total Protein (6.3-8.2) g/dL Albumin (3.5-5.0) g/dL Disposition Clinical Impression: Stable angina Disposition: HOME SELF-CARE Condition: Good Instructions (If sedation given, give patient instructions): Chest Pain (ED) Is patient prescribed a controlled substance at d/c from ED?: No Referrals: Clif Glasgow MD [Primary Care Provider] - 1-2 days Time of Disposition: 19:50
[2021-11-24 19:13] LABS: Basophils % (A) 1 %; Eosinophils # (A) 0.3 k/uL (0-0.7); Eosinophils % (A) 4 %; HCT 44.1 % (39.0-53.0); HGB 14.3 gm/dL (13.0-17.5); Lymphocytes # (A) 1.4 k/uL (1.0-4.8); Lymphocytes % (A) 22 %; MCHC 32.5 g/dL (31.0-37.0); MCV 95.2 fL (80.0-100.0); Mean Platelet Volume 8.9; Monocytes # (A) 0.7 k/uL (0-1.0); Monocytes % (A) 11 %; Neutrophils # (A) 3.8 k/uL (1.3-7.7); Neutrophils % (A) 60 %; Platelet Count 201 k/uL (150-450); RBC 4.63 m/uL (4.30-5.90); RDW 14.6 % (11.5-15.5); WBC 6.2 k/uL (3.8-10.6)
[2021-11-24 19:21] LABS: INR 1.2 (<1.2); Partial Thromboplastin Time 25.6 sec (22.0-30.0); Prothrombin Time 12.4 sec (9.0-12.0)
[2021-11-24 19:23] VITALS: PULSE 65; RESP 18
[2021-11-24 19:28] LABS: ALT 34 U/L (4-49); AST 45 U/L (17-59); African American GFR (CKD) >90 (>60 ml/min/1.73 sqM); Albumin 3.7 g/dL (3.5-5.0); Alkaline Phosphatase 118 U/L (38-126); Anion Gap 5 mmol/L; Blood Urea Nitrogen 25 mg/dL (9-20); Calcium 9.3 mg/dL (8.4-10.2); Carbon Dioxide 25 mmol/L (22-30); Chloride 107 mmol/L (98-107); Glucose 84 mg/dL (74-99); Magnesium 1.5 mg/dL (1.6-2.3); Non-African American GFR(CKD) 82 (>60 ml/min/1.73 sqM); Potassium 3.9 mmol/L (3.5-5.1); Sodium 137 mmol/L (137-145); Total Bilirubin 0.5 mg/dL (0.2-1.3); Total Protein 6.3 g/dL (6.3-8.2)
--- NOTE | 2021-11-24 19:36 | XR ---
EXAMINATION TYPE: XR chest 2V DATE OF EXAM: 11/24/2021 COMPARISON: 11/20/2021 HISTORY: Chest pain TECHNIQUE: FINDINGS: There is no heart failure nor confluent pneumonic infiltrate. Heart and mediastinum are wit hin normal limits. Costophrenic angles are clear bony thorax is intact. IMPRESSION: No active cardiopulmonary disease.
[2021-11-24 20:08] VITALS: BP 130/75
== END 2021-11-24 20:06 | disposition home or self-care (01) ==
LOC: EC 17:39
DX: I20.8 Other forms of angina pectoris (principal); E78.5 Hyperlipidemia, unspecified; J44.9 Chronic obstructive pulmonary disease, unspecified; I10 Essential (primary) hypertension; Z82.49 Family history of ischemic heart disease and other diseases of the circulatory system; F17.200 Nicotine dependence, unspecified, uncomplicated; Z88.6 Allergy status to analgesic agent; Z88.8 Allergy status to other drugs, medicaments and biological substances
CPT/HCPCS: 36415; 71046; 80053; 83735; 84484; 85025; 85610; 85730; 93005

== ENCOUNTER 2021-11-26 08:23 | Emergency (ER) | payer OTHER ==
[2021-11-26 08:41] VITALS: BP 156/92; PULSE 91; RESP 18; TEMP 97.4
[2021-11-26] MEDS ORDERED: ACETAMINOPHEN TAB 325 MG TAB PO STA (08:56)
[2021-11-26] MEDS ORDERED: SULFAMETH-TMP DS STARTER PACK 2 TAB BTL PO STA (08:56)
--- NOTE | 2021-11-26 09:02 | ED ---
Extremity Problem HPI - General Chief complaint: Extremity Problem,Nontraumatic Stated complaint: cellulitis Time Seen by Provider: 11/26/21 08:43 Source: patient, RN notes reviewed Mode of arrival: ambulatory Limitations: no limitations - History of Present Illness Initial comments: 51-year-old male presents emergency Department chief complaint of leg pain. This is chronic in nature. Patient does have blistering of his feet states her some redness on his right foot. Patient states that he is finishing up some Keflex currently. Patient denies any fevers or chills. is requesting a cardiac pain medication. Patient offers no other complaints. - Related Data Home Medications Medication Instructions Recorded Confirmed Aspirin EC [Ecotrin Low Dose] 81 mg PO DAILY 05/23/21 11/20/21 Nitroglycerin Sl Tabs [Nitrostat] 0.4 mg SL Q5M PRN 06/28/21 11/20/21 Albuterol Sulfate [Proair Hfa] 2 puff INHALATION RT-QID PRN 10/14/21 11/20/21 Budesonide-Formot 160-4.5 Mcg 2 puff INHALATION RT-BID 10/14/21 11/20/21 [Symbicort 160-4.5 Mcg Inhaler] Metoprolol Succinate (ER) [Toprol 100 mg PO DAILY 10/14/21 11/20/21 XL] hydrALAZINE HCL [Apresoline] 100 mg PO TID 10/14/21 11/20/21 HYDROcodone/APAP 10-325MG [[place] 1 tab PO QID 11/20/21 11/20/21 10-325] cloNIDine HCL [Catapres] 0.3 mg PO TID 11/20/21 11/20/21 lisinopriL 40 mg PO DAILY 11/20/21 11/20/21 Previous Rx's Medication Instructions Recorded Rivaroxaban [Xarelto] 20 mg PO W/SUPPER 30 Days #30 tab 07/31/21 Furosemide [Lasix] 40 mg PO BID@0900,1600 30 Days #60 08/04/21 tab metOLazone [Zaroxolyn] 5 mg PO DAILY #10 tab 10/17/21 Potassium Chloride ER [K-Dur 20] 20 meq PO BID #60 tab 11/23/21 Spironolactone [Aldactone] 25 mg PO DAILY #30 tab 11/23/21 Sulfamethox-Tmp 800-160Mg [Bactrim 1 each PO Q12HR #20 tab 11/26/21 Ds] Allergies Allergy/AdvReac Type Severity Reaction Status Date / Time ibuprofen [From Motrin] AdvReac Nausea & Verified 11/26/21 08:41 Vomiting simvastatin [From Zocor] AdvReac Dizziness Verified 11/26/21 08:41 Review of Systems ROS Statement: Those systems with pertinent positive or pertinent negative responses have been documented in the HPI. ROS Other: All systems not noted in ROS Statement are negative. Past Medical History Past Medical History: Atrial Fibrillation, COPD, Hyperlipidemia, Hypertension, Pneumonia Additional Past Medical History / Comment(s): Other HX; Costochondritis, chronic pain, chronic low back pain with bilateral sciatica, neuropathy bilateral hands/feet, migraines, kidney stones, past partial small bowel obstruction. HTN the last 10 yrs Stopped taking meds 5 yrs ago. 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 Past Anesthesia/Blood Transfusion Reactions: No Reported Reaction Past Psychological History: Anxiety, Bipolar, Depression, Schizophrenia Smoking Status: Current every day smoker Past Alcohol Use History: None Reported Past Drug Use History: Marijuana, Prescription Drug Abuse - Past Family History Father Family Medical History: Myocardial Infarction ([place]) Additional Family Medical History / Comment(s): mi at age 35, still living Mother Family Medical History: Myocardial Infarction ([place]) Additional Family Medical History / Comment(s): Mother has had at least one [place]- pt unsure at what age. He has not had much contact with his mother since he was 17 yrs old. General Exam Limitations: no limitations General appearance: alert, in no apparent distress Head exam: Present: atraumatic, normocephalic, normal inspection Respiratory exam: Present: normal lung sounds bilaterally. Absent: respiratory distress, wheezes, rales, rhonchi, stridor Cardiovascular Exam: Present: regular rate, normal rhythm, normal heart sounds. Absent: systolic murmur, diastolic murmur, rubs, gallop, clicks Extremities exam: Present: other (Blistering on bilateral feet, no erythema of the lower legs there is some erythema over the blistering of the right foot neurovascular intact) Course Vital Signs 11/26/21 08:39 Temperature 97.4 F L Pulse Rate 91 Respiratory 18 Rate Blood Pressure 156/92 O2 Sat by Pulse 99 Oximetry Medical Decision Making - Medical Decision Making Patient is clear chronic pain across and pain medication patient was provided Tylenol he does have erythema on his right foot in which patient was placed on Bactrim return parameters were discussed. Disposition Clinical Impression: Infected blister of right foot, Chronic pain Disposition: HOME SELF-CARE Condition: Stable Instructions (If sedation given, give patient instructions): Blister (ED) Additional Instructions: Please return to the Emergency Department if symptoms worsen or any other concerns. Prescriptions: Sulfamethox-Tmp 800-160Mg [Bactrim Ds] 1 each PO Q12HR #20 tab Is patient prescribed a controlled substance at d/c from ED?: No Referrals: Clif Glasgow MD [Primary Care Provider] - 1-2 days Time of Disposition: 09:01
== END 2021-11-26 09:10 | disposition home or self-care (01) ==
LOC: EC 08:23
DX: S90.821A Blister (nonthermal), right foot, initial encounter (principal); F17.200 Nicotine dependence, unspecified, uncomplicated; J44.9 Chronic obstructive pulmonary disease, unspecified; I10 Essential (primary) hypertension; I48.91 Unspecified atrial fibrillation; Z88.6 Allergy status to analgesic agent; Z88.8 Allergy status to other drugs, medicaments and biological substances; Z79.899 Other long term (current) drug therapy; Z79.51 Long term (current) use of inhaled steroids; Z79.82 Long term (current) use of aspirin; X58.XXXA Exposure to other specified factors, initial encounter
CPT/HCPCS: 99283

== ENCOUNTER 2021-11-26 18:55 | Emergency (ER) | payer OTHER ==
[2021-11-26 19:02] VITALS: BP 156/95; PULSE 87; RESP 22; TEMP 98.2
--- NOTE | 2021-11-26 19:12 | ED ---
General Adult HPI - General Chief complaint: Chest Pain Stated complaint: chest pain Time Seen by Provider: 11/26/21 19:10 Source: patient, EMS Mode of arrival: EMS Limitations: no limitations - History of Present Illness Initial comments: Patient presents to the ED by ambulance for evaluation. Patient reports that he is homeless, and he states that he had a syncopal episode today. Patient also states that he has been having diffuse chest pain and mild dyspnea all day today, which he states is not uncommon for him. Patient states that he has been outside in the heat all day today. Patient was given aspirin and a single dose of nitroglycerin by EMS, and he states that his chest pain has improved currently. Patient denies any illicit drug use besides marijuana use. Patient denies alcohol use. Patient trauma or injury, fever or chills, headache, focal numbness/weakness/neuro deficit, visual changes, neck/back/extremity pain, neck/arm/jaw/back pain, pleuritic pain, dyspnea, palpitations, abdominal pain, nausea/vomiting/diarrhea, bloody or melanotic stool, dysuria or urinary symptoms, leg or calf swelling or pain, or any other symptoms or complaints. Patient states that he is currently on Xarelto anticoagulation therapy. - Related Data Home Medications Medication Instructions Recorded Confirmed Aspirin EC [Ecotrin Low Dose] 81 mg PO DAILY 05/23/21 11/26/21 Nitroglycerin Sl Tabs [Nitrostat] 0.4 mg SL Q5M PRN 06/28/21 11/26/21 Albuterol Sulfate [Proair Hfa] 2 puff INHALATION RT-QID PRN 10/14/21 11/26/21 Budesonide-Formot 160-4.5 Mcg 2 puff INHALATION RT-BID 10/14/21 11/26/21 [Symbicort 160-4.5 Mcg Inhaler] Metoprolol Succinate (ER) [Toprol 100 mg PO DAILY 10/14/21 11/26/21 XL] hydrALAZINE HCL [Apresoline] 100 mg PO TID 10/14/21 11/26/21 HYDROcodone/APAP 10-325MG [[place] 1 tab PO TID 11/20/21 11/26/21 10-325] cloNIDine HCL [Catapres] 0.3 mg PO TID 11/20/21 11/26/21 lisinopriL 40 mg PO DAILY 11/20/21 11/26/21 Sulfamethox-Tmp 800-160Mg [Bactrim 1 tab PO Q12HR 11/26/21 11/26/21 Ds] Previous Rx's Medication Instructions Recorded Rivaroxaban [Xarelto] 20 mg PO W/SUPPER 30 Days #30 tab 07/31/21 Furosemide [Lasix] 40 mg PO BID@0900,1600 30 Days #60 08/04/21 tab metOLazone [Zaroxolyn] 5 mg PO DAILY #10 tab 10/17/21 Potassium Chloride ER [K-Dur 20] 20 meq PO BID #60 tab 11/23/21 Spironolactone [Aldactone] 25 mg PO DAILY #30 tab 11/23/21 Allergies Allergy/AdvReac Type Severity Reaction Status Date / Time ibuprofen [From Motrin] AdvReac Nausea & Verified 11/26/21 19:02 Vomiting simvastatin [From Zocor] AdvReac Dizziness Verified 11/26/21 19:02 Review of Systems ROS Statement: Those systems with pertinent positive or pertinent negative responses have been documented in the HPI. ROS Other: All systems not noted in ROS Statement are negative. Past Medical History Past Medical History: Atrial Fibrillation, COPD, Hyperlipidemia, Hypertension, Pneumonia Additional Past Medical History / Comment(s): Other HX; Costochondritis, chronic pain, chronic low back pain with bilateral sciatica, neuropathy bilateral hands/feet, migraines, kidney stones, past partial small bowel obstruction. HTN the last 10 yrs Stopped taking meds 5 yrs ago. 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 Past Anesthesia/Blood Transfusion Reactions: No Reported Reaction Past Psychological History: Anxiety, Bipolar, Depression, Schizophrenia Smoking Status: Current every day smoker Past Alcohol Use History: None Reported Past Drug Use History: Marijuana, Prescription Drug Abuse - Past Family History Father Family Medical History: Myocardial Infarction ([place]) Additional Family Medical History / Comment(s): mi at age 35, still living Mother Family Medical History: Myocardial Infarction ([place]) Additional Family Medical History / Comment(s): Mother has had at least one [place]- pt unsure at what age. He has not had much contact with his mother since he was 17 yrs old. General Exam Limitations: no limitations General appearance: alert, in no apparent distress Head exam: Present: atraumatic, normocephalic Eye exam: Present: normal appearance, EOMI ENT exam: Present: mucous membranes moist Neck exam: Present: other (Trachea is in midline). Absent: tenderness Respiratory exam: Present: normal lung sounds bilaterally. Absent: respiratory distress, wheezes, rales, rhonchi, stridor, chest wall tenderness Cardiovascular Exam: Present: regular rate, normal rhythm, normal heart sounds, other (Normal radial pulses bilaterally) GI/Abdominal exam: Present: soft. Absent: distended, tenderness, guarding Extremities exam: Present: other (Negative Homans sign bilaterally). Absent: tenderness, pedal edema, calf tenderness Neurological exam: Present: alert, oriented X3. Absent: motor sensory deficit Psychiatric exam: Present: normal affect, normal mood Skin exam: Present: warm, dry, intact, normal color Course Vital Signs 11/26/21 18:59 Temperature 98.2 F Pulse Rate 87 Respiratory 22 Rate Blood Pressure 156/95 O2 Sat by Pulse 100 Oximetry - Reevaluation(s) Reevaluation #1: 11/26/21 22:01 Patient denies development of any new symptoms while in the ED. Patient remains alert and breathing comfortably with a normal room air oxygen saturation. Patient is aware of his test results, and he feels comfortable being discharged from the ED at this time. Patient was counseled about chest pain, dyspnea and syncope, and he was clearly explained return and follow-up instructions. Patient was instructed to follow up closely with his primary care provider. Patient feels comfortable with this plan. EKG Findings - EKG Comments: EKG Findings:: Normal sinus rhythm, ventricular rate of 76 bpm, no ectopy, normal PA and QRS intervals, mildly prolonged QTc interval of 464 ms, possible LVH, no ST or T-wave abnormality Medical Decision Making - Medical Decision Making Patient is alert and breathing comfortably with a normal room air oxygen saturation and stable/reassuring vital signs in the ED. Patient's EKG, chest x- ray and labs are all unremarkable. Patient is well-known to the ED staff for being a regular patient to the ED with multiple recurrent visits. I do not suspect an emergent medical condition at this time. Will discharge patient from the ED at this time. - Lab Data Result diagrams: 11/26/21 19:34 11/26/21 19:34 Lab Results 11/26/21 11/26/21 11/26/21 Range/Units 19:34 19:34 19:34 WBC 6.2 (3.8-10.6) k/uL RBC 4.93 (4.30-5.90) m/uL Hgb 15.4 (13.0-17.5) gm/dL Hct 47.1 (39.0-53.0) % MCV 95.6 (80.0-100.0) fL MCH 31.3 (25.0-35.0) pg MCHC 32.7 (31.0-37.0) g/dL RDW 14.3 (11.5-15.5) % Plt Count 220 (150-450) k/uL MPV 8.5 Neutrophils % 58 % Lymphocytes % 20 % Monocytes % 14 % Eosinophils % 4 % Basophils % 1 % Neutrophils # 3.6 (1.3-7.7) k/uL Lymphocytes # 1.2 (1.0-4.8) k/uL Monocytes # 0.9 (0-1.0) k/uL Eosinophils # 0.2 (0-0.7) k/uL Basophils # 0.1 (0-0.2) k/uL PT 11.0 (9.0-12.0) sec INR 1.0 (<1.2) APTT 22.8 (22.0-30.0) sec Sodium 137 (137-145) mmol/L Potassium 4.3 (3.5-5.1) mmol/L Chloride 107 (98-107) mmol/L Carbon Dioxide 23 (22-30) mmol/L Anion Gap 7 mmol/L BUN 15 (9-20) mg/dL Creatinine 0.97 (0.66-1.25) mg/dL Est GFR (CKD-EPI)AfAm >90 (>60 ml/min/1.73 sqM) Est GFR (CKD-EPI)NonAf >90 (>60 ml/min/1.73 sqM) Glucose 77 (74-99) mg/dL Calcium 8.9 (8.4-10.2) mg/dL Magnesium 1.7 (1.6-2.3) mg/dL Total Bilirubin 0.8 (0.2-1.3) mg/dL AST 52 (17-59) U/L ALT 32 (4-49) U/L Alkaline Phosphatase 92 (38-126) U/L Troponin I (0.000-0.034) ng/mL NT-Pro-B Natriuret Pep pg/mL Total Protein 6.6 (6.3-8.2) g/dL Albumin 3.8 (3.5-5.0) g/dL Serum Alcohol <10 mg/dL 11/26/21 11/26/21 Range/Units 19:34 19:34 WBC (3.8-10.6) k/uL RBC (4.30-5.90) m/uL Hgb (13.0-17.5) gm/dL Hct (39.0-53.0) % MCV (80.0-100.0) fL MCH (25.0-35.0) pg MCHC (31.0-37.0) g/dL RDW (11.5-15.5) % Plt Count (150-450) k/uL MPV Neutrophils % % Lymphocytes % % Monocytes % % Eosinophils % % Basophils % % Neutrophils # (1.3-7.7) k/uL Lymphocytes # (1.0-4.8) k/uL Monocytes # (0-1.0) k/uL Eosinophils # (0-0.7) k/uL Basophils # (0-0.2) k/uL PT (9.0-12.0) sec INR (<1.2) APTT (22.0-30.0) sec Sodium (137-145) mmol/L Potassium (3.5-5.1) mmol/L Chloride (98-107) mmol/L Carbon Dioxide (22-30) mmol/L Anion Gap mmol/L BUN (9-20) mg/dL Creatinine (0.66-1.25) mg/dL Est GFR (CKD-EPI)AfAm (>60 ml/min/1.73 sqM) Est GFR (CKD-EPI)NonAf (>60 ml/min/1.73 sqM) Glucose (74-99) mg/dL Calcium (8.4-10.2) mg/dL Magnesium (1.6-2.3) mg/dL Total Bilirubin (0.2-1.3) mg/dL AST (17-59) U/L ALT (4-49) U/L Alkaline Phosphatase (38-126) U/L Troponin I <0.012 (0.000-0.034) ng/mL NT-Pro-B Natriuret Pep 888 pg/mL Total Protein (6.3-8.2) g/dL Albumin (3.5-5.0) g/dL Serum Alcohol mg/dL - Radiology Data Chest x-ray: No acute cardiopulmonary disease/process. Disposition Clinical Impression: Chest pain, Dyspnea Narrative: Reported syncope Disposition: HOME SELF-CARE Condition: Stable Instructions (If sedation given, give patient instructions): Chest Pain (ED), Syncope (ED), Dyspnea (ED) Additional Instructions: Return to the ER immediately should he develop new or worsening pain, increased shortness of breath, feeling dizzy or fainting, a fever, or new or worsening symptoms. Follow up closely with your primary care provider. Is patient prescribed a controlled substance at d/c from ED?: No Referrals: Clif Glasgow MD [Primary Care Provider] - 1-2 days Time of Disposition: 22:04
[2021-11-26] MEDS ORDERED: SODIUM CHLORIDE 0.9% 1,000 ML IV ONE (19:28)
[2021-11-26 19:51] LABS: Basophils # (A) 0.1 k/uL (0-0.2); Basophils % (A) 1 %; Eosinophils # (A) 0.2 k/uL (0-0.7); Eosinophils % (A) 4 %; HCT 47.1 % (39.0-53.0); HGB 15.4 gm/dL (13.0-17.5); Lymphocytes # (A) 1.2 k/uL (1.0-4.8); Lymphocytes % (A) 20 %; MCH 31.3 pg (25.0-35.0); MCHC 32.7 g/dL (31.0-37.0); MCV 95.6 fL (80.0-100.0); Mean Platelet Volume 8.5; Monocytes # (A) 0.9 k/uL (0-1.0); Monocytes % (A) 14 %; Neutrophils # (A) 3.6 k/uL (1.3-7.7); Neutrophils % (A) 58 %; Platelet Count 220 k/uL (150-450); RBC 4.93 m/uL (4.30-5.90); RDW 14.3 % (11.5-15.5); WBC 6.2 k/uL (3.8-10.6)
[2021-11-26 20:01] LABS: Partial Thromboplastin Time 22.8 sec (22.0-30.0)
--- NOTE | 2021-11-26 20:14 | XR ---
EXAMINATION TYPE: XR chest 2V DATE OF EXAM: 11/26/2021 8:09 PM COMPARISON: 11/24/2021 TECHNIQUE: XR chest 2V Frontal and lateral views of the chest. CLINICAL INDICATION:Male, 51 years old with history of Chest Pain; FINDINGS: Lungs/Pleura: There is no evidence of pleural effusion, focal consolidation, or pneumothorax. Pulmonary vascularity: Unremarkable. Heart/mediastinum: Cardiomediastinal silhouette is prominent in size. Musculoskeletal: No acute osseous pathology. IMPRESSION: No acute cardiopulmonary disease/process.
[2021-11-26 20:15] LABS: ALT 32 U/L (4-49); African American GFR (CKD) >90 (>60 ml/min/1.73 sqM); Albumin 3.8 g/dL (3.5-5.0); Alcohol <10 mg/dL; Anion Gap 7 mmol/L; Blood Urea Nitrogen 15 mg/dL (9-20); Calcium 8.9 mg/dL (8.4-10.2); Carbon Dioxide 23 mmol/L (22-30); Chloride 107 mmol/L (98-107); Glucose 77 mg/dL (74-99); Non-African American GFR(CKD) >90 (>60 ml/min/1.73 sqM); Sodium 137 mmol/L (137-145); Total Bilirubin 0.8 mg/dL (0.2-1.3); Total Protein 6.6 g/dL (6.3-8.2)
[2021-11-26 20:17] LABS: AST 52 U/L (17-59); Magnesium 1.7 mg/dL (1.6-2.3); Potassium 4.3 mmol/L (3.5-5.1)
[2021-11-26 20:18] LABS: Alkaline Phosphatase 92 U/L (38-126)
== END 2021-11-26 22:17 | disposition home or self-care (01) ==
LOC: EC 18:55
DX: R06.00 Dyspnea, unspecified (principal); J44.9 Chronic obstructive pulmonary disease, unspecified; E78.5 Hyperlipidemia, unspecified; I10 Essential (primary) hypertension; Z82.49 Family history of ischemic heart disease and other diseases of the circulatory system; Z88.6 Allergy status to analgesic agent; Z88.8 Allergy status to other drugs, medicaments and biological substances
CPT/HCPCS: 36415; 93005; 83880; 80053; 83735; 84484; 85025; 85610; 85730; 71046; 99285; 96360; G0480; 80320

== ENCOUNTER 2021-12-07 14:44 | Observation (INO) | payer OTHER ==
[2021-12-07 15:22] LABS: Basophils % (A) 1 %; Eosinophils # (A) 0.2 k/uL (0-0.7); Eosinophils % (A) 3 %; HCT 49.9 % (39.0-53.0); HGB 16.2 gm/dL (13.0-17.5); Lymphocytes % (A) 15 %; MCH 31.3 pg (25.0-35.0); MCHC 32.5 g/dL (31.0-37.0); MCV 96.1 fL (80.0-100.0); Monocytes # (A) 0.5 k/uL (0-1.0); Monocytes % (A) 8 %; Neutrophils # (A) 4.6 k/uL (1.3-7.7); Neutrophils % (A) 70 %; Platelet Count 174 k/uL (150-450); RBC 5.19 m/uL (4.30-5.90); RDW 13.9 % (11.5-15.5); WBC 6.6 k/uL (3.8-10.6)
[2021-12-07 15:31] LABS: Partial Thromboplastin Time 22.4 sec (22.0-30.0); Prothrombin Time 11.3 sec (9.0-12.0)
[2021-12-07 15:33] LABS: ALT 24 U/L (4-49); AST 41 U/L (17-59); African American GFR (CKD) >90 (>60 ml/min/1.73 sqM); Albumin 3.8 g/dL (3.5-5.0); Alkaline Phosphatase 95 U/L (38-126); Anion Gap 7 mmol/L; Blood Urea Nitrogen 13 mg/dL (9-20); Calcium 8.8 mg/dL (8.4-10.2); Carbon Dioxide 26 mmol/L (22-30); Chloride 107 mmol/L (98-107); Glucose 80 mg/dL (74-99); Magnesium 1.5 mg/dL (1.6-2.3); Non-African American GFR(CKD) >90 (>60 ml/min/1.73 sqM); Sodium 140 mmol/L (137-145); Total Bilirubin 0.6 mg/dL (0.2-1.3); Total Protein 6.5 g/dL (6.3-8.2)
--- NOTE | 2021-12-07 16:02 | XR ---
EXAMINATION TYPE: XR chest 2V DATE OF EXAM: 12/07/2021 COMPARISON: Chest x-ray 11/27/2021 HISTORY: Chest pain TECHNIQUE: Frontal and lateral views of the chest are obtained. FINDINGS: There is no focal air space opacity, pleural effusion, or pneumothorax seen. The cardiac silhouette size is within normal limits. The osseous structures are intact, possible spinal curvatu re noted, postop change suspected the distal left clavicle, stable. IMPRESSION: No acute cardiopulmonary process.
[2021-12-07] MEDS ORDERED: ASPIRIN 81 MG PO STA (19:21)
--- NOTE | 2021-12-07 19:23 | ED ---
General Adult HPI - General Chief complaint: Chest Pain Stated complaint: Chest,Weakness Time Seen by Provider: 12/07/21 19:00 Source: patient Mode of arrival: ambulatory Limitations: no limitations - History of Present Illness Initial comments: Dictation was produced using rocket staff dictation software. please excuse any grammatical, word or spelling errors. Chief Complaint: 51-year-old male past nuchal history of A. fib, COPD, heart f ailure presents emergency department for chest pain History of Present Illness: 51-year-old male past medical history of cardiac disease. Patient states that he woke this morning with chest pain. States that its a sharp pressure-like sensation. States he rates the back. No associated diaphoresis or nausea. Patient taken aspirin earlier today. Patient recently hospitalized for chest pain The ROS documented in this emergency department record has been reviewed and confirmed by me. Those systems with pertinent positive or negative responses have been documented in the HPI. All other systems are other negative and/or noncontributory. PHYSICAL EXAM: General Impression: Alert and oriented x3, not in acute distress HEENT: Normocephalic atraumatic, extra-ocular movements intact, pupils equal and reactive to light bilaterally, mucous membranes moist. Cardiovascular: Heart regular rate and rhythm Chest: Able to complete full sentences, no retractions, no tachypnea Abdomen: abdomen soft, non-tender, non-distended, no organomegaly Musculoskeletal: Pulses present and equal in all extremities, no peripheral edema Motor: no focal deficits noted Neurological: CN II-XII grossly intact, no focal motor or sensory deficits noted Skin: Intact with no visualized rashes Psych: Normal affect and mood ED course: 51-year-old male presents emergency department for atypical chest pain with typical features. Vital signs upon arrival are within acceptable limits. EKG shows no signs of ischemia infarction. Blood work EKG and x-ray was ordered by triage nurse. Per advanced triage protocol. CBC, coag panel, metabolic panel is unremarkable. Troponin is negative. Chest x-ray shows no acute processes. Patient is well-appearing at the bedside. Patient be admitted to observation for cardiac monitoring. EKG interpretation: Ventricular rate 79, sinus rhythm,. 157, QS 94, QTC 454. No [place] prolongation, no QTC prolongation, no ST or T-wave changes noted. EKG compared to 11/26/2021 showing no changes. Overall, this EKG is unremarkable - Related Data Home Medications Medication Instructions Recorded Confirmed Aspirin EC [Ecotrin Low Dose] 81 mg PO DAILY 05/23/21 11/26/21 Nitroglycerin Sl Tabs [Nitrostat] 0.4 mg SL Q5M PRN 06/28/21 11/26/21 Albuterol Sulfate [Proair Hfa] 2 puff INHALATION RT-QID PRN 10/14/21 11/26/21 Budesonide-Formot 160-4.5 Mcg 2 puff INHALATION RT-BID 10/14/21 11/26/21 [Symbicort 160-4.5 Mcg Inhaler] Metoprolol Succinate (ER) [Toprol 100 mg PO DAILY 10/14/21 11/26/21 XL] hydrALAZINE HCL [Apresoline] 100 mg PO TID 10/14/21 11/26/21 HYDROcodone/APAP 10-325MG [[place] 1 tab PO TID 11/20/21 11/26/21 10-325] cloNIDine HCL [Catapres] 0.3 mg PO TID 11/20/21 11/26/21 lisinopriL 40 mg PO DAILY 11/20/21 11/26/21 Sulfamethox-Tmp 800-160Mg [Bactrim 1 tab PO Q12HR 11/26/21 11/26/21 Ds] Previous Rx's Medication Instructions Recorded Rivaroxaban [Xarelto] 20 mg PO W/SUPPER 30 Days #30 tab 07/31/21 Furosemide [Lasix] 40 mg PO BID@0900,1600 30 Days #60 08/04/21 tab metOLazone [Zaroxolyn] 5 mg PO DAILY #10 tab 10/17/21 Potassium Chloride ER [K-Dur 20] 20 meq PO BID #60 tab 11/23/21 Spironolactone [Aldactone] 25 mg PO DAILY #30 tab 11/23/21 Allergies Allergy/AdvReac Type Severity Reaction Status Date / Time ibuprofen [From Motrin] AdvReac Nausea & Verified 11/26/21 19:02 Vomiting simvastatin [From Zocor] AdvReac Dizziness Verified 11/26/21 19:02 Review of Systems ROS Statement: Those systems with pertinent positive or pertinent negative responses have been documented in the HPI. ROS Other: All systems not noted in ROS Statement are negative. Past Medical History Past Medical History: Atrial Fibrillation, COPD, Hyperlipidemia, Hypertension, Pneumonia Additional Past Medical History / Comment(s): Other HX; Costochondritis, chronic pain, chronic low back pain with bilateral sciatica, neuropathy bilateral hands/feet, migraines, kidney stones, past partial small bowel obstruction. HTN the last 10 yrs Stopped taking meds 5 yrs ago. 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 Past Anesthesia/Blood Transfusion Reactions: No Reported Reaction Past Psychological History: Anxiety, Bipolar, Depression, Schizophrenia Smoking Status: Current every day smoker Past Alcohol Use History: None Reported Past Drug Use History: Marijuana, Prescription Drug Abuse - Past Family History Father Family Medical History: Myocardial Infarction ([place]) Additional Family Medical History / Comment(s): mi at age 35, still living Mother Family Medical History: Myocardial Infarction ([place]) Additional Family Medical History / Comment(s): Mother has had at least one [place]- pt unsure at what age. He has not had much contact with his mother since he was 17 yrs old. General Exam Limitations: no limitations Course Vital Signs 12/07/21 12/07/21 14:55 18:55 Temperature 98.0 F Pulse Rate 86 85 Respiratory 20 20 Rate Blood Pressure 154/98 167/105 O2 Sat by Pulse 100 100 Oximetry Medical Decision Making - Lab Data Result diagrams: 12/07/21 15:15 12/07/21 15:15 Lab Results 12/07/21 12/07/21 12/07/21 Range/Units 15:15 15:15 15:15 WBC 6.6 (3.8-10.6) k/uL RBC 5.19 (4.30-5.90) m/uL Hgb 16.2 (13.0-17.5) gm/dL Hct 49.9 (39.0-53.0) % MCV 96.1 (80.0-100.0) fL MCH 31.3 (25.0-35.0) pg MCHC 32.5 (31.0-37.0) g/dL RDW 13.9 (11.5-15.5) % Plt Count 174 (150-450) k/uL MPV 9.0 Neutrophils % 70 % Lymphocytes % 15 % Monocytes % 8 % Eosinophils % 3 % Basophils % 1 % Neutrophils # 4.6 (1.3-7.7) k/uL Lymphocytes # 1.0 (1.0-4.8) k/uL Monocytes # 0.5 (0-1.0) k/uL Eosinophils # 0.2 (0-0.7) k/uL Basophils # 0.0 (0-0.2) k/uL PT 11.3 (9.0-12.0) sec INR 1.0 (<1.2) APTT 22.4 (22.0-30.0) sec Sodium 140 (137-145) mmol/L Potassium 4.0 (3.5-5.1) mmol/L Chloride 107 (98-107) mmol/L Carbon Dioxide 26 (22-30) mmol/L Anion Gap 7 mmol/L BUN 13 (9-20) mg/dL Creatinine 0.80 (0.66-1.25) mg/dL Est GFR (CKD-EPI)AfAm >90 (>60 ml/min/1.73 sqM) Est GFR (CKD-EPI)NonAf >90 (>60 ml/min/1.73 sqM) Glucose 80 (74-99) mg/dL Calcium 8.8 (8.4-10.2) mg/dL Magnesium 1.5 L (1.6-2.3) mg/dL Total Bilirubin 0.6 (0.2-1.3) mg/dL AST 41 (17-59) U/L ALT 24 (4-49) U/L Alkaline Phosphatase 95 (38-126) U/L Troponin I (0.000-0.034) ng/mL NT-Pro-B Natriuret Pep pg/mL Total Protein 6.5 (6.3-8.2) g/dL Albumin 3.8 (3.5-5.0) g/dL 12/07/21 12/07/21 Range/Units 15:15 15:15 WBC (3.8-10.6) k/uL RBC (4.30-5.90) m/uL Hgb (13.0-17.5) gm/dL Hct (39.0-53.0) % MCV (80.0-100.0) fL MCH (25.0-35.0) pg MCHC (31.0-37.0) g/dL RDW (11.5-15.5) % Plt Count (150-450) k/uL MPV Neutrophils % % Lymphocytes % % Monocytes % % Eosinophils % % Basophils % % Neutrophils # (1.3-7.7) k/uL Lymphocytes # (1.0-4.8) k/uL Monocytes # (0-1.0) k/uL Eosinophils # (0-0.7) k/uL Basophils # (0-0.2) k/uL PT (9.0-12.0) sec INR (<1.2) APTT (22.0-30.0) sec Sodium (137-145) mmol/L Potassium (3.5-5.1) mmol/L Chloride (98-107) mmol/L Carbon Dioxide (22-30) mmol/L Anion Gap mmol/L BUN (9-20) mg/dL Creatinine (0.66-1.25) mg/dL Est GFR (CKD-EPI)AfAm (>60 ml/min/1.73 sqM) Est GFR (CKD-EPI)NonAf (>60 ml/min/1.73 sqM) Glucose (74-99) mg/dL Calcium (8.4-10.2) mg/dL Magnesium (1.6-2.3) mg/dL Total Bilirubin (0.2-1.3) mg/dL AST (17-59) U/L ALT (4-49) U/L Alkaline Phosphatase (38-126) U/L Troponin I <0.012 (0.000-0.034) ng/mL NT-Pro-B Natriuret Pep 2250 pg/mL Total Protein (6.3-8.2) g/dL Albumin (3.5-5.0) g/dL Disposition Clinical Impression: Chest pain Disposition: ADMITTED IP TO THIS [facility] Condition: Fair Referrals: Clif Glasgow MD [Primary Care Provider] - 1-2 days Decision Time: 19:23
[2021-12-07] MEDS: NITROGLYCERIN SL TABS 0.4 MG TAB SUBLINGUAL PRN ×2 (19:58→20:11)
[2021-12-07] MEDS ORDERED: HYDROmorphone 0.5 MG/0.5 ML SYRINGE IVP STA (21:34)
[2021-12-08] MEDS: ASPIRIN 81 MG PO SCH (08:20)
[2021-12-08] MEDS: SPIRONOLACTONE 25 MG TAB PO SCH (08:20)
[2021-12-08] MEDS: carvediloL 6.25 MG TAB PO SCH ×2 (08:20→17:11)
[2021-12-08] MEDS: FUROSEMIDE 40 MG TAB PO SCH ×2 (08:20→17:11)
[2021-12-08] MEDS: cloNIDine HCL 0.1 MG TAB PO SCH ×3 (08:20→21:24)
[2021-12-08] MEDS ORDERED: NON FORMULARY DRUG (Lisinopril [Lisinopril] 40 MG Tablet) PO SCH (09:00)
[2021-12-08] MEDS ORDERED: METOPROLOL SUCCINATE (ER) 100 MG TAB.ER.24H PO SCH (09:00)
[2021-12-08] MEDS ORDERED: ASPIRIN 325 MG TAB PO SCH (09:00)
[2021-12-08 09:28] LABS: LDL Cholesterol,Calculated 66.3 mg/dL (0.0-131.0)
[2021-12-08] MEDS: metOLazone 5 MG TAB PO SCH (09:57)
[2021-12-08] MEDS: hydrALAZINE HCL 50 MG TAB PO SCH ×3 (09:57→21:24)
--- NOTE | 2021-12-08 11:09 | P.CRDCN ---
History of Present Illness Consult date: 12/08/21 History of present illness: HISTORY OF PRESENT ILLNESS: This is a 51-year-old male with a past medical history significant for paroxysmal atrial fibrillation, nonischemic cardiomyopathy, hypertension, hyperlipidemia, marijuana use, and nicotine dependence. Patient follows in the office with Dr. Burleson but has not been seen in the office since 2019. We have been asked to see the patient in consultation for chest pain. Patient examined at the bedside. Patient states yesterday morning he woke up with chest pain. He states the pain was in the middle of his chest. Patient denies any shortness of breath. Denied any diaphoresis. No nausea or vomiting. The patient presented to the hospital and was found to have uncontrolled hypertension with a systolic blood pressure in the 170s. * EKG reveals sinus mechanism. Left ventricular hypertrophy. * Chest xray negative for acute process * Laboratory data: WBC 6.6. Hemoglobin 16.2. Platelet count 174. Sodium 140. Potassium 4.0. BUN 13. Creatinine 0.80. Troponin negative 3. * Current home cardiac medications include Zaroxolyn 5 mg daily, lisinopril 40 mg daily, hydralazine 100 mg 3 times a day, Catapres 0.3 mg 3 times a day, Aldactone 25 mg daily, Xarelto 20 mg with dinner, metoprolol succinate 100 mg daily, Lasix 40 mg twice a day, and aspirin 81 mg daily * Most recent echocardiogram obtained in November 2021 revealed ejection fraction 25-30% with global hypokinesis, mild mitral regurgitation, severe tricuspid regurgitation * Cardiac catheterization history: March 2021 revealing normal coronary arteries REVIEW OF SYSTEMS: At the time of my exam: CONSTITUTIONAL: Denies fever or chills. HEENT: Denies blurred vision, vision changes, or eye pain. Denies hemoptysis CARDIOVASCULAR: Denies chest pain. Denies orthopnea. Denies PND. Denies palpitat ions RESPIRATORY: Denies shortness of breath. GASTROINTESTINAL: Denies abdominal pain. Denies nausea or vomiting. HEMATOLOGIC: Denies bleeding disorders. GENITOURINARY: Denies any blood in urine. SKIN: Denies pruitis. Denies rash. PHYSICAL EXAM: VITAL SIGNS: Reviewed. GENERAL: Well-developed in no acute distress. HEENT: Head is normocephalic. Pupils are equal, round. Sclerae anicteric. Mucous membranes of the mouth are moist. Neck supple. No JVD or thyromegaly LUNGS: Respirations even and unlabored. Lungs essentially clear to auscultation bilaterally. HEART: Regular rate and rhythm. S1 and S2 heard. Soft systolic murmur. ABDOMEN: Soft. Nondistended. Nontender. EXTREMITIES: Normal range of motion. No clubbing or cyanosis. Peripheral pulses intact. No lower extremity edema NEUROLOGIC: Awake and alert. Oriented x 3. ASSESSMENT: Chest pain, troponin negative x 3 Hypertension, uncontrolled Paroxysmal atrial fibrillation Nonischemic cardiomyopathy Hyperlipidemia Marijuana use Nicotine dependence Chronic pain PLAN: No need to repeat echocardiogram as this was performed in November 2021 Resume home cardiac medications Discontinue metoprolol. Begin carvedilol 6.25 mg twice a day. Increase as tolerated. Discontinue lisinopril. Patient's last dose of lisinopril was on the morning of 12/07/2021 Begin Entresto 24-26mg BID starting tomorrow. Per case management, patient has a $0 co-pay Discontinue Catapres and hydralazine on the morning of 12/08/2021 Monitor kidney function Monitor blood pressure Further recommendations pending patient's course Nurse practitioner note has been reviewed by physician. Signing provider agrees with the documented findings, assessment, and plan of care. Past Medical History Past Medical History: Atrial Fibrillation, COPD, Hyperlipidemia, Hypertension, Pneumonia Additional Past Medical History / Comment(s): Other HX; Costochondritis, chronic pain, chronic low back pain with bilateral sciatica, neuropathy bilateral hands/feet, migraines, kidney stones, past partial small bowel obstr uction. HTN the last 10 yrs Stopped taking meds 5 yrs ago. 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 Past Anesthesia/Blood Transfusion Reactions: No Reported Reaction Past Psychological History: Anxiety, Bipolar, Depression, Schizophrenia Additional Psychological History / Comment(s): Pt was on Mental Health 2 years ago at [facility] for suicidal ideation - Not seeing anyone currently Smoking Status: Current every day smoker Past Alcohol Use History: None Reported Additional Past Alcohol Use History / Comment(s): Started smoking at age 15- smoked 1 ppd but has cut down to 1/2 pack a day Past Drug Use History: Marijuana, Prescription Drug Abuse Additional Drug Use History / Comment(s): Pt smokes marijuana daily, and regular cigarrettes daily - Past Family History Father Family Medical History: Myocardial Infarction ([place]) Additional Family Medical History / Comment(s): mi at age 35, still living Mother Family Medical History: Myocardial Infarction ([place]) Additional Family Medical History / Comment(s): Mother has had at least one [place]- pt unsure at what age. He has not had much contact with his mother since he was 17 yrs old. Medications and Allergies Home Medications Medication Instructions Recorded Confirmed Type Aspirin EC [Ecotrin Low Dose] 81 mg PO DAILY 05/23/21 12/07/21 History Nitroglycerin Sl Tabs [Nitrostat] 0.4 mg SL Q5M PRN 06/28/21 12/07/21 History Rivaroxaban [Xarelto] 20 mg PO W/SUPPER 30 Days #30 tab 07/31/21 12/07/21 Rx Furosemide [Lasix] 40 mg PO BID@0900,1600 30 Days #60 08/04/21 12/07/21 Rx tab Albuterol Sulfate [Proair Hfa] 2 puff INHALATION RT-QID PRN 10/14/21 12/07/21 History Budesonide-Formot 160-4.5 Mcg 2 puff INHALATION RT-BID 10/14/21 12/07/21 History [Symbicort 160-4.5 Mcg Inhaler] Metoprolol Succinate (ER) [Toprol 100 mg PO DAILY 10/14/21 12/07/21 History XL] hydrALAZINE HCL [Apresoline] 100 mg PO TID 10/14/21 12/07/21 History metOLazone [Zaroxolyn] 5 mg PO DAILY #10 tab 10/17/21 12/07/21 Rx HYDROcodone/APAP 10-325MG [[place] 1 tab PO QID 11/20/21 12/07/21 History 10-325] cloNIDine HCL [Catapres] 0.3 mg PO TID 11/20/21 12/07/21 History lisinopriL 40 mg PO DAILY 11/20/21 12/07/21 History Potassium Chloride ER [K-Dur 20] 20 meq PO BID #60 tab 11/23/21 12/07/21 Rx Spironolactone [Aldactone] 25 mg PO DAILY #30 tab 11/23/21 12/07/21 Rx Sacubitril/Valsartan [Entresto 24 1 each PO BID #120 tab 12/08/21 Rx mg-26 mg Tablet] Allergies Allergy/AdvReac Type Severity Reaction Status Date / Time ibuprofen [From Motrin] AdvReac Nausea & Verified 12/07/21 19:54 Vomiting simvastatin [From Zocor] AdvReac Dizziness Verified 12/07/21 19:54 Physical Exam Vitals: Vital Signs Temp Pulse Pulse Resp BP BP BP 12/08/21 08:00 91 14 12/08/21 07:57 12/08/21 07:53 91 166/116 12/08/21 07:00 97.8 F 91 14 159/108 12/08/21 04:45 98.0 F 67 16 164/99 12/07/21 23:44 18 12/07/21 23:16 97.9 F 75 18 153/94 12/07/21 21:39 98.1 F 84 18 159/99 12/07/21 20:29 80 18 151/92 12/07/21 19:59 74 12/07/21 19:38 87 18 150/97 12/07/21 18:55 85 20 167/105 12/07/21 14:55 98.0 F 86 20 154/98 Pulse Ox 12/08/21 08:00 12/08/21 07:57 96 12/08/21 07:53 12/08/21 07:00 100 12/08/21 04:45 100 12/07/21 23:44 12/07/21 23:16 97 12/07/21 21:39 100 12/07/21 20:29 100 12/07/21 19:59 12/07/21 19:38 99 12/07/21 18:55 100 12/07/21 14:55 100 Intake and Output 12/07/21 12/08/21 12/08/21 22:59 06:59 14:59 Intake Total 118 Balance 118 Intake: Oral 118 Other: # Voids 0 1 Weight 92.986 kg Results 12/07/21 15:15 12/07/21 15:15 Cardiac Enzymes 12/07/21 12/07/21 12/07/21 Range/Units 15:15 15:15 20:02 AST 41 (17-59) U/L Troponin I <0.012 <0.012 (0.000-0.034) ng/mL 12/07/21 Range/Units 23:00 AST (17-59) U/L Troponin I <0.012 (0.000-0.034) ng/mL Coagulation 12/07/21 Range/Units 15:15 PT 11.3 (9.0-12.0) sec APTT 22.4 (22.0-30.0) sec Lipids 12/07/21 Range/Units 15:15 Triglycerides 130.00 (0.00-149.00) mg/dL Cholesterol 141.00 (0.00-200.00) mg/dL HDL Cholesterol 48.70 (40.00-60.00) mg/dL Cholesterol/HDL Ratio 2.90 Ratio CBC 12/07/21 Range/Units 15:15 WBC 6.6 (3.8-10.6) k/uL RBC 5.19 (4.30-5.90) m/uL Hgb 16.2 (13.0-17.5) gm/dL Hct 49.9 (39.0-53.0) % Plt Count 174 (150-450) k/uL Comprehensive Metabolic Panel 12/07/21 Range/Units 15:15 Sodium 140 (137-145) mmol/L Potassium 4.0 (3.5-5.1) mmol/L Chloride 107 (98-107) mmol/L Carbon Dioxide 26 (22-30) mmol/L BUN 13 (9-20) mg/dL Creatinine 0.80 (0.66-1.25) mg/dL Glucose 80 (74-99) mg/dL Calcium 8.8 (8.4-10.2) mg/dL AST 41 (17-59) U/L ALT 24 (4-49) U/L Alkaline Phosphatase 95 (38-126) U/L Total Protein 6.5 (6.3-8.2) g/dL Albumin 3.8 (3.5-5.0) g/dL Current Medications Generic Name Dose Route Start Last Admin Trade Name Freq PRN Reason Stop Dose Admin Aspirin 81 mg 12/08/21 09:00 12/08/21 08:20 Aspirin 81 Mg PO 81 mg DAILY [facility] Administration Carvedilol 6.25 mg 12/08/21 08:06 12/08/21 08:20 Carvedilol 6.25 Mg Tab PO 6.25 mg BID-W/MEALS [facility] Administration Clonidine 0.3 mg 12/08/21 09:00 12/08/21 08:20 Clonidine Hcl 0.1 Mg Tab PO 0.3 mg TID [facility] Administration Furosemide 40 mg 12/08/21 09:00 12/08/21 08:20 Furosemide 40 Mg Tab PO 40 mg BID@0900,1600 [facility] Administration Hydralazine HCl 100 mg 12/08/21 09:00 12/08/21 09:57 Hydralazine Hcl 50 Mg Tab PO 100 mg TID [facility] Administration Metolazone 5 mg 12/08/21 09:00 12/08/21 09:57 Metolazone 5 Mg Tab PO 5 mg DAILY [facility] Administration Nitroglycerin 0.4 mg 12/07/21 19:23 12/07/21 20:11 Nitroglycerin Sl Tabs 0.4 Mg Tab SUBLINGUAL 0.4 mg Q5M PRN Administration Chest Pain Rivaroxaban 20 mg 12/08/21 17:30 Rivaroxaban 20 Mg Tab PO W/SUPPER [facility] Protocol Sacubitril/Valsartan 1 each 12/09/21 09:00 Sacubitril/Valsartan 24 Mg-26 Mg Tablet PO BID [facility] Spironolactone 25 mg 12/08/21 09:00 12/08/21 08:20 Spironolactone 25 Mg Tab PO 25 mg DAILY [facility] Administration Intake and Output 12/07/21 12/08/21 12/08/21 22:59 06:59 14:59 Intake Total 118 Balance 118 Intake: Oral 118 Other: # Voids 0 1 Weight 92.986 kg 12/07/21 15:15 12/07/21 15:15
[2021-12-08] MEDS ORDERED: RIVAROXABAN 20 MG TAB PO SCH (17:30)
[2021-12-08] MEDS ORDERED: HYDROmorphone 0.5 MG/0.5 ML SYRINGE IVP STA (20:04)
[2021-12-09 08:11] VITALS: RESP 18
[2021-12-09] MEDS: cloNIDine HCL 0.1 MG TAB PO SCH (08:34)
[2021-12-09] MEDS: hydrALAZINE HCL 50 MG TAB PO SCH (08:34)
[2021-12-09 08:57] LABS: African American GFR (CKD) 81.8 (60.0-200.0); Anion Gap 10.6 mmol/L (10.00-18.00); Blood Urea Nitrogen 21.6 mg/dL (9.0-27.0); Calcium 9.2 mg/dL (8.7-10.3); Carbon Dioxide 25.4 mmol/L (20.0-27.5); Non-African American GFR(CKD) 70.6 (60.0-200.0); Potassium 3.9 mmol/L (3.5-5.5)
[2021-12-09] MEDS ORDERED: SACUBITRIL/VALSARTAN 24 MG-26 MG TABLET PO SCH (09:00)
[2021-12-09] MEDS: carvediloL 6.25 MG TAB PO SCH (10:06)
--- NOTE | 2021-12-09 11:05 | P.PN ---
Subjective Progress Note Date: 12/09/21 Principal diagnosis: Hypertension The patient is a 51-year-old gentleman with a chronic pain as well as hypertension as well as paroxysmal atrial fibrillation was admitted to the hospital was atypical chest discomfort. The blood pressure was elevated. We did some adjustment on his medication where he was started on carvedilol. He underwent heart catheterization recently and that revealed normal coronaries He was seen this morning. He continues to have very atypical chest discomfort. No shortness of breath. No dizziness or lightheadedness. He is asking about pain medications. He was evaluated and acute coronary syndrome was ruled out. 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 Objective - Vital Signs Vital signs: Vital Signs Temp 97.7 F 12/09/21 07:00 Pulse 60 12/09/21 07:00 Resp 18 12/09/21 07:00 BP 103/65 12/09/21 07:00 Pulse Ox 98 12/09/21 07:00 FiO2 Intake & Output 12/08/21 12/09/21 12/09/21 18:59 06:59 18:59 Intake Total 596 Balance 596 Intake: Oral 596 Other: Voiding Method Toilet # Voids 3 2 - Constitutional General appearance: Present: no acute distress - Respiratory Respiratory: bilateral: CTA - Cardiovascular Rhythm: regular Heart sounds: normal: S1, S2 - Labs CBC & Chem 7: 12/07/21 15:15 12/09/21 05:33 Assessment and Plan Assessment: Assessment #1 atypical chest discomfort #2 chronic pain #3 hypertension #4 paroxysmal atrial fibrillation Plan #1 the blood pressure seems to be under better control on the current medical regimen #2 from the cardiac standpoint of view, the patient can be discharged home
[2021-12-09] MEDS: ASPIRIN 81 MG PO SCH (11:51)
[2021-12-09] MEDS: SPIRONOLACTONE 25 MG TAB PO SCH (11:54)
[2021-12-09 14:26] VITALS: BP 116/70; PULSE 72; TEMP 97.9
[2021-12-09] MEDS: FUROSEMIDE 40 MG TAB PO SCH (14:37)
[2021-12-09] MEDS: metOLazone 5 MG TAB PO SCH (14:47)
--- NOTE | 2021-12-09 20:43 | PN ---
PROGRESS NOTE CHIEF COMPLAINT: Chest pain and shortness of breath. HISTORY OF PRESENT ILLNESS: This gentleman is still complaining of anterior chest pain, which is constant. this is angina. He is being seen by Cardiology and they are concerned about his dropping ejection fraction. They are going to take him off and start him on Entresto. PHYSICAL EXAMINATION: CHEST: Chest wall is nontender. Chest is clear. CARDIAC: Exam is normal. IMPRESSION: 1. Chest pain, atypical. 2. Cardiomyopathy. 3. Narcotic abuse. 4. Congestive heart failure. PLAN: I will increase giving him a lot of narcotics while he is in the hospital. MMODL / IJN: [id number] /
--- NOTE | 2021-12-09 21:42 | HP ---
HISTORY AND PHYSICAL CHIEF COMPLAINT: Chest pain. HISTORY OF PRESENT ILLNESS: This is another admission of many for this 51-year-old noncompliant white male with severe atherosclerotic cardiomyopathy. He comes to the hospital frequently because of chest pain. He is homeless. He also has a narcotic dependency. In the emergency room, it was determined that he should be readmitted for further assessment and treatment. REVIEW OF SYSTEMS: He denies syncope, neurologic problems, increase in the shortness of breath, abdominal pain, nausea, vomiting, diarrhea, renal failure, etc. PAST MEDICAL HISTORY, FAMILY HISTORY, PERSONAL AND SOCIAL HISTORY: All, otherwise, unremarkable and unchanged from his recent admission and discharge. ALLERGIES: He is allergic to Cymbalta and Motrin. MEDICATIONS: He takes: 1. Vicodin 10 three times at home p.r.n. 2. Clonidine 0.3 three times a day. 3. Symbicort. 4. Hydralazine 100 mg t.i.d. 5. ProAir. 6. Xarelto 20 mg once a day. 7. Metolazone 5 mg once a day. 8. Valsartan 160 mg twice a day. 9. Aspirin. 10.Metoprolol succinate 100 mg once a day. 11.Lasix 40 mg twice a day. Major of his history is unchanged. He currently is not smoking. PHYSICAL EXAMINATION: VITAL SIGNS: Blood pressure is 170/102 with a pulse of 93 and regular, respirations 15, he is afebrile. GENERAL: He appeared to be tanned, depressed and disheveled. HEENT: Head, ears, eyes, nose, mouth and throat were normal. CHEST: Demonstrates scattered rales. CARDIAC: Demonstrates sinus rhythm with an S4. ABDOMEN: Soft, nontender. EXTREMITIES: Demonstrated 2 to 3+ edema of the legs. NEUROLOGICAL: He is intact. IMPRESSION: 1. Chest pain. 2. History of coronary artery disease. 3. Atherosclerotic cardiomyopathy. 4. Noncompliance. PLAN: 1. Bedrest. 2. IV fluids. 3. Serial EKGs. 4. Consult with Cardiology. MMLACYL / CINTHYAN: [id number] /
--- NOTE | 2021-12-10 06:03 | DS ---
DISCHARGE SUMMARY CHIEF COMPLAINT: Chest pain and shortness of breath. HISTORY OF PRESENT ILLNESS AND PHYSICAL EXAMINATION: Details of this man's history and physical can be found in the initial workup. LABORATORY STUDIES: While he was in the hospital, he had laboratory studies, details of which can be found in the laboratory section of his chart. COURSE IN THE HOSPITAL: After admission, he was placed on bedrest and started on intravenous fluids, and he was seen by Cardiology. They know him well and it was not felt to be necessary to do any further interventions. His troponins were normal. He was switched from valsartan to Entresto and he was doing well. It was felt he could be released on the . He will go home on his usual activity, diet, and medications. He will be seen in the office in 2 days. FINAL DIAGNOSES: 1. Coronary artery disease. 2. Atherosclerotic cardiomyopathy. 3. Congestive heart failure. 4. Narcotic abuse. 5. Depression. 6. Homelessness. OPERATIONS: None. CONSULTATION: Cardiology. CONDITION: He is improved. MMODL / IJN: [id number] /
== END 2021-12-09 15:49 | disposition home or self-care (01) ==
LOC: EC 14:44 → 6NMEDSUR 19:23
PROVIDERS: ADMIT Family Medicine; ATTEND Family Medicine
DX: R07.89 Other chest pain (principal); I42.8 Other cardiomyopathies; I11.0 Hypertensive heart disease with heart failure; I50.9 Heart failure, unspecified; I48.0 Paroxysmal atrial fibrillation; I08.1 Rheumatic disorders of both mitral and tricuspid valves; I25.10 Atherosclerotic heart disease of native coronary artery without angina pectoris; J44.9 Chronic obstructive pulmonary disease, unspecified; E78.5 Hyperlipidemia, unspecified; F11.20 Opioid dependence, uncomplicated; Z91.19 Patient's noncompliance with other medical treatment and regimen; G62.9 Polyneuropathy, unspecified; G89.29 Other chronic pain; M54.42 Lumbago with sciatica, left side; M54.41 Lumbago with sciatica, right side; G43.909 Migraine, unspecified, not intractable, without status migrainosus; F20.9 Schizophrenia, unspecified; F31.9 Bipolar disorder, unspecified; F41.9 Anxiety disorder, unspecified; F17.210 Nicotine dependence, cigarettes, uncomplicated; Z79.82 Long term (current) use of aspirin; Z79.01 Long term (current) use of anticoagulants; Z79.51 Long term (current) use of inhaled steroids; Z79.899 Other long term (current) drug therapy; Z88.6 Allergy status to analgesic agent; Z88.8 Allergy status to other drugs, medicaments and biological substances; Z87.01 Personal history of pneumonia (recurrent); Z59.00 Homelessness unspecified; Z87.442 Personal history of urinary calculi; Z86.14 Personal history of Methicillin resistant Staphylococcus aureus infection; Z98.890 Other specified postprocedural states; Z82.49 Family history of ischemic heart disease and other diseases of the circulatory system
CPT/HCPCS: 96376; 96374; 99285; 36415; 93005; 83880; 80061; 80053; 80048; 83735; 84484; 85025; 85610; 85730; 71046; G0378 ×3; J1170 ×2

== ENCOUNTER 2021-12-29 02:26 | Emergency (ER) | payer OTHER ==
[2021-12-29 02:34] VITALS: TEMP 97.6
[2021-12-29] MEDS ORDERED: MAGNESIUM SULFATE-D5W PMX 1 GM in DEXTROSE/WATER 1 100ML.BAG IVPB ONE (03:35)
[2021-12-29] MEDS ORDERED: ASPIRIN 81 MG PO STA (03:36)
[2021-12-29] MEDS ORDERED: ACETAMINOPHEN TAB 500 MG TAB PO STA (03:36)
--- NOTE | 2021-12-29 03:44 | ED ---
Chest Pain HPI <Catarino Johnson - Last Filed: 12/29/21 06:35> - General Source: patient, RN notes reviewed Mode of arrival: ambulatory Limitations: no limitations - History of Present Illness MD Complaint: chest pain <Link Rangel - Last Filed: 12/30/21 02:10> - General Chief Complaint: Chest Pain Stated Complaint: Chest Pain, Cellulitis Time Seen by Provider: 12/29/21 03:27 - History of Present Illness Initial Comments: This is a 51-year-old male who is a frequent visitor to the emergency department for recurrent and daily chest pain. Patient states he gets sharp pain in the center of his chest which radiates through to the back. This is consistent with what he has felt on a daily basis for quite some time. Patient does take a daily aspirin. Since she did take it yesterday. Patient does see the local cardiology group and had a echocardiogram in November. Patient has a history of congestive heart failure. Patient continues to smoke cigarettes. He denies alcohol abuse. Pain is sharp, no alleviating factors. Pain is exacerbated by movement and palpation. No headache, no fever or chills, no changes in vision or hearing, no sore throat or difficulty with speech, no neck pain, no shortness of breath, no abdominal pain, no nausea or vomiting, no changes in urination or bowel movements, no numbness or tingling, no extremity pain, no skin rashes or lesions. Past medical, surgical, social, and family history reviewed. (Link Rangel) - Related Data Home Medications Medication Instructions Recorded Confirmed Aspirin EC [Ecotrin Low Dose] 81 mg PO DAILY 05/23/21 12/25/21 Nitroglycerin Sl Tabs [Nitrostat] 0.4 mg SL Q5M PRN 06/28/21 12/25/21 Albuterol Sulfate [Proair Hfa] 2 puff INHALATION RT-QID PRN 10/14/21 12/25/21 Budesonide-Formot 160-4.5 Mcg 2 puff INHALATION RT-BID 10/14/21 12/25/21 [Symbicort 160-4.5 Mcg Inhaler] Metoprolol Succinate (ER) [Toprol 100 mg PO DAILY 10/14/21 12/25/21 XL] hydrALAZINE HCL [Apresoline] 100 mg PO TID 10/14/21 12/25/21 HYDROcodone/APAP 10-325MG [[place] 1 tab PO QID 11/20/21 12/25/21 10-325] cloNIDine HCL [Catapres] 0.3 mg PO TID 11/20/21 12/25/21 lisinopriL 40 mg PO DAILY 11/20/21 12/25/21 Sacubitril/Valsartan [Entresto 24 1 tab PO BID 12/21/21 12/25/21 mg-26 mg Tablet] Previous Rx's Medication Instructions Recorded Rivaroxaban [Xarelto] 20 mg PO W/SUPPER 30 Days #30 tab 07/31/21 Furosemide [Lasix] 40 mg PO BID@0900,1600 30 Days #60 08/04/21 tab metOLazone [Zaroxolyn] 5 mg PO DAILY #10 tab 10/17/21 Potassium Chloride ER [K-Dur 20] 20 meq PO BID #60 tab 11/23/21 Spironolactone [Aldactone] 25 mg PO DAILY #30 tab 11/23/21 Allergies Allergy/AdvReac Type Severity Reaction Status Date / Time ibuprofen [From Motrin] AdvReac Nausea & Verified 12/29/21 02:33 Vomiting simvastatin [From Zocor] AdvReac Dizziness Verified 12/29/21 02:33 Review of Systems ROS Other: All systems not noted in ROS Statement are negative. <Catarino Johnson - Last Filed: 12/29/21 06:35> ROS Other: All systems not noted in ROS Statement are negative. <Link Rangel - Last Filed: 12/30/21 02:10> ROS Statement: Those systems with pertinent positive or pertinent negative responses have been documented in the HPI. EKG Findings - EKG Comments: EKG Findings:: 0-30 7 AM and reviewed with ED attending physician reveals left ventricular hypertrophy with nonspecific T-wave abnormality, prolonged QT interval, QTC of 467 ms. Rate is 71. Normal intervals otherwise. No evidence of ST depression or elevation. Left axis deviation. When compared to the previous study from 12/24/2021. Patient does have a change in axis. Patient also has a deep S wave in V3 noted. However, when compared to the study from 12/21/2021. This x-ray similar. Possibly suggesting an appropriate lead placement on the EKG from the . <Link Rangel - Last Filed: 12/30/21 02:10> Past Medical History Past Medical History: Atrial Fibrillation, COPD, Hyperlipidemia, Hypertension, Pneumonia Additional Past Medical History / Comment(s): Other HX; Costochondritis, chronic pain, chronic low back pain with bilateral sciatica, neuropathy bilateral hands/feet, migraines, kidney stones, past partial small bowel obstruction. HTN the last 10 yrs Stopped taking meds 5 yrs ago. 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 Past Anesthesia/Blood Transfusion Reactions: No Reported Reaction Past Psychological History: Anxiety, Bipolar, Depression, Schizophrenia Smoking Status: Current every day smoker Past Alcohol Use History: None Reported Past Drug Use History: Marijuana, Prescription Drug Abuse - Past Family History Father Family Medical History: Myocardial Infarction (NH) Additional Family Medical History / Comment(s): mi at age 35, still living Mother Family Medical History: Myocardial Infarction (NH) Additional Family Medical History / Comment(s): Mother has had at least one NH- pt unsure at what age. He has not had much contact with his mother since he was 17 yrs old. <Link Rangel - Last Filed: 12/30/21 02:10> General Exam Limitations: no limitations General appearance: alert, in no apparent distress Head exam: Present: atraumatic, normocephalic, normal inspection Eye exam: Present: normal appearance, PERRL, EOMI. Absent: scleral icterus, conjunctival injection, periorbital swelling ENT exam: Present: normal exam, normal oropharynx, mucous membranes moist, normal external ear exam. Absent: mucous membranes dry Neck exam: Present: normal inspection, full ROM. Absent: tenderness, meningismus, lymphadenopathy Respiratory exam: Present: rales (Scant bibasilar rales noted), chest wall tenderness (Anterior chest wall tenderness to palpation). Absent: respiratory distress, wheezes, rhonchi, stridor, accessory muscle use Cardiovascular Exam: Present: regular rate, normal rhythm, systolic murmur (Throughout his 6 systolic murmur heard at the left sternal border). Absent: diastolic murmur, rubs, gallop, clicks GI/Abdominal exam: Present: soft, normal bowel sounds. Absent: distended, tenderness, guarding, rebound, rigid Extremities exam: Present: normal inspection, full ROM, normal capillary refill, pedal edema (Patient has pitting edema bilaterally to the mid tibia), other (No evidence of acute infectious process, distal sensation and pulses intact). Absent: tenderness, joint swelling, calf tenderness Back exam: Present: normal inspection Neurological exam: Present: alert, oriented X3, CN II-XII intact Psychiatric exam: Present: normal affect, normal mood Skin exam: Present: warm, dry, intact, normal color. Absent: rash <Link Rangel - Last Filed: 12/30/21 02:10> - General Exam Comments Initial Comments: Vital signs stable, patient afebrile. Patient does not appear to be in any significant distress at the time of seeing him. (Link Rangel) Course Vital Signs 12/29/21 12/29/21 12/29/21 02:31 04:33 06:00 Temperature 97.6 F Pulse Rate 76 64 62 Respiratory 18 16 16 Rate Blood Pressure 138/81 159/99 O2 Sat by Pulse 96 100 Oximetry Chest Pain MDM - Differential Diagnosis AMI, ACS, Pleurisy-Other, Chest Wall Syndrome, Panic Disorder/Anxiety Likely chest wall pain we'll assess cardiovascular function <Link Rangel - Last Filed: 12/30/21 02:10> - [facility] Patient had echocardiogram on 11/22/2021 moderate amount of concentric ventricular thickness moderately increased left ventricular diastolic diameter left ventricular ejection fraction of 25-30% with global hypokinesis. Grade 3 diastolic dysfunction. Right ventricle mild to moderate right ventricular dilatation with pulmonary hypertension The case was discussed in detail with ED attending physician. Presentation, findings, treatment plan discussed in detail. The patient will be endorsed to the ED attending physician at 4 AM, Dr. Munson (Link Rangel) Disposition Is patient prescribed a controlled substance at d/c from ED?: No <Catarino Johnson - Last Filed: 12/29/21 06:35> Is patient prescribed a controlled substance at d/c from ED?: No <Link Rangel - Last Filed: 12/30/21 02:10> Clinical Impression: Chronic chest pain, Chest wall pain, Cigarette smoker Disposition: HOME SELF-CARE Condition: Good Instructions (If sedation given, give patient instructions): Chest Pain (ED) Referrals: Clif Glasgow MD [Primary Care Provider] - 1-2 days
--- NOTE | 2021-12-29 04:14 | XR ---
EXAMINATION TYPE: XR chest 1V DATE OF EXAM: 12/29/2021 COMPARISON: 12/25/2021 HISTORY: Chest pain TECHNIQUE: Single view FINDINGS: There is no heart failure nor confluent pneumonic infiltrate. Costophrenic angles are clear . There are no hilar masses. Bony thorax is intact. IMPRESSION: No active cardiopulmonary disease. No change.
[2021-12-29 04:52] LABS: African American GFR (CKD) >90 (>60 ml/min/1.73 sqM); Anion Gap 10 mmol/L; Blood Urea Nitrogen 17 mg/dL (9-20); Carbon Dioxide 22 mmol/L (22-30); Chloride 105 mmol/L (98-107); Glucose 84 mg/dL (74-99); Magnesium 1.8 mg/dL (1.6-2.3); Non-African American GFR(CKD) >90 (>60 ml/min/1.73 sqM); Potassium 4.1 mmol/L (3.5-5.1); Sodium 137 mmol/L (137-145)
[2021-12-29 05:17] VITALS: RESP 16
[2021-12-29 06:45] VITALS: BP 159/99; PULSE 62
== END 2021-12-29 09:42 | disposition home or self-care (01) ==
LOC: EC 02:26
DX: R07.89 Other chest pain (principal); E78.5 Hyperlipidemia, unspecified; J44.9 Chronic obstructive pulmonary disease, unspecified; F17.200 Nicotine dependence, unspecified, uncomplicated; Z82.49 Family history of ischemic heart disease and other diseases of the circulatory system; Z88.6 Allergy status to analgesic agent; Z88.8 Allergy status to other drugs, medicaments and biological substances
CPT/HCPCS: 36415; 93005; 83880; 80048; 83735; 84484; 71045; 99285; 96365; J3475

== ENCOUNTER 2022-01-03 06:48 | Emergency (ER) | payer OTHER ==
[2022-01-03 06:55] VITALS: BP 158/102; PULSE 85; RESP 16; TEMP 97.5
[2022-01-03] MEDS ORDERED: CYCLOBENZAPRINE 10 MG TAB PO STA (07:15)
[2022-01-03] MEDS ORDERED: ACETAMINOPHEN TAB 325 MG TAB PO STA (07:15)
--- NOTE | 2022-01-03 07:17 | ED ---
General Adult HPI - General Chief complaint: Urogenital Stated complaint: Groin Pain Time Seen by Provider: 01/03/22 06:50 Source: patient, RN notes reviewed Mode of arrival: ambulatory Limitations: no limitations - History of Present Illness Initial comments: 51-year-old male presents emergency Department chief complaint of left groin pain. Patient states he rides a bicycle day, states he felt a pull in his leg. Patient denies a ball complaining constriction of back pain no difficulty urinating no pain of his scrotum. Patient denies fevers or chills no abdominal pain. Patient states it only hurts with movement better at rest swelling no rashes noted. Patient offers no other associated complaints. - Related Data Home Medications Medication Instructions Recorded Confirmed Aspirin EC [Ecotrin Low Dose] 81 mg PO DAILY 05/23/21 12/25/21 Nitroglycerin Sl Tabs [Nitrostat] 0.4 mg SL Q5M PRN 06/28/21 12/25/21 Albuterol Sulfate [Proair Hfa] 2 puff INHALATION RT-QID PRN 10/14/21 12/25/21 Budesonide-Formot 160-4.5 Mcg 2 puff INHALATION RT-BID 10/14/21 12/25/21 [Symbicort 160-4.5 Mcg Inhaler] Metoprolol Succinate (ER) [Toprol 100 mg PO DAILY 10/14/21 12/25/21 XL] hydrALAZINE HCL [Apresoline] 100 mg PO TID 10/14/21 12/25/21 HYDROcodone/APAP 10-325MG [[place] 1 tab PO QID 11/20/21 12/25/21 10-325] cloNIDine HCL [Catapres] 0.3 mg PO TID 11/20/21 12/25/21 lisinopriL 40 mg PO DAILY 11/20/21 12/25/21 Sacubitril/Valsartan [Entresto 24 1 tab PO BID 12/21/21 12/25/21 mg-26 mg Tablet] Previous Rx's Medication Instructions Recorded Rivaroxaban [Xarelto] 20 mg PO W/SUPPER 30 Days #30 tab 07/31/21 Furosemide [Lasix] 40 mg PO BID@0900,1600 30 Days #60 08/04/21 tab metOLazone [Zaroxolyn] 5 mg PO DAILY #10 tab 10/17/21 Potassium Chloride ER [K-Dur 20] 20 meq PO BID #60 tab 11/23/21 Spironolactone [Aldactone] 25 mg PO DAILY #30 tab 11/23/21 Allergies Allergy/AdvReac Type Severity Reaction Status Date / Time ibuprofen [From Motrin] AdvReac Nausea & Verified 01/03/22 06:52 Vomiting simvastatin [From Zocor] AdvReac Dizziness Verified 01/03/22 06:52 Review of Systems ROS Statement: Those systems with pertinent positive or pertinent negative responses have been documented in the HPI. ROS Other: All systems not noted in ROS Statement are negative. Past Medical History Past Medical History: Atrial Fibrillation, COPD, Hyperlipidemia, Hypertension, Pneumonia Additional Past Medical History / Comment(s): Other HX; Costochondritis, chronic pain, chronic low back pain with bilateral sciatica, neuropathy bilateral hands/feet, migraines, kidney stones, past partial small bowel obstruction. HTN the last 10 yrs Stopped taking meds 5 yrs ago. 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 Past Anesthesia/Blood Transfusion Reactions: No Reported Reaction Past Psychological History: Anxiety, Bipolar, Depression, Schizophrenia Smoking Status: Current every day smoker Past Alcohol Use History: None Reported Past Drug Use History: Marijuana, Prescription Drug Abuse - Past Family History Father Family Medical History: Myocardial Infarction (NH) Additional Family Medical History / Comment(s): mi at age 35, still living Mother Family Medical History: Myocardial Infarction (NH) Additional Family Medical History / Comment(s): Mother has had at least one NH- pt unsure at what age. He has not had much contact with his mother since he was 17 yrs old. General Exam Limitations: no limitations General appearance: alert, in no apparent distress Head exam: Present: atraumatic, normocephalic, normal inspection Neck exam: Present: normal inspection, full ROM. Absent: tenderness, meningismus, lymphadenopathy Respiratory exam: Present: normal lung sounds bilaterally. Absent: respiratory distress, wheezes, rales, rhonchi, stridor Cardiovascular Exam: Present: regular rate, normal rhythm, normal heart sounds. Absent: systolic murmur, diastolic murmur, rubs, gallop, clicks GI/Abdominal exam: Present: soft, normal bowel sounds. Absent: distended, tenderness, guarding, rebound, rigid Extremities exam: Present: other (Bilateral lower extremity neurovascular intact full range of motion pain with range of motion the left leg, there is no mass or rashes) Back exam: Present: full ROM. Absent: tenderness, paraspinal tenderness, vertebral tenderness Neurological exam: Present: motor sensory deficit. Absent: reflexes normal Skin exam: Present: warm, dry, intact, normal color. Absent: rash Course Vital Signs 01/03/22 06:53 Temperature 97.5 F L Pulse Rate 85 Respiratory 16 Rate Blood Pressure 158/102 O2 Sat by Pulse 100 Oximetry Medical Decision Making - Medical Decision Making 51-year-old male well-known emergency from presented for left groin pain. Patient has a left groin strain is neurovascularly intact equal pulses. Patient has no back pain no red flag symptoms of be discharged in stable condition left groin strain. Return parameters were discussed. Disposition Clinical Impression: Groin strain Disposition: HOME SELF-CARE Condition: Stable Instructions (If sedation given, give patient instructions): Groin Strain (ED) Additional Instructions: Please return to the Emergency Department if symptoms worsen or any other concerns. Is patient prescribed a controlled substance at d/c from ED?: No Referrals: Clif Glasgow MD [Primary Care Provider] - 1-2 days Time of Disposition: 07:17
== END 2022-01-03 07:33 | disposition home or self-care (01) ==
LOC: EC 06:48
DX: S39.011A Strain of muscle, fascia and tendon of abdomen, initial encounter (principal); J44.9 Chronic obstructive pulmonary disease, unspecified; E78.5 Hyperlipidemia, unspecified; I10 Essential (primary) hypertension; F17.200 Nicotine dependence, unspecified, uncomplicated; Z82.49 Family history of ischemic heart disease and other diseases of the circulatory system; Z88.3 Allergy status to other anti-infective agents; Z88.8 Allergy status to other drugs, medicaments and biological substances; X58.XXXA Exposure to other specified factors, initial encounter
CPT/HCPCS: 99283

== ENCOUNTER 2022-01-15 03:46 | Emergency (ER) | payer OTHER ==
[2022-01-15 03:49] VITALS: RESP 18
[2022-01-15] MEDS ORDERED: HYDROmorphone 1 MG/ML 1 ML SYRINGE IM STA (04:15)
--- NOTE | 2022-01-15 04:16 | ED ---
Chest Pain HPI - General Chief Complaint: Chest Pain Stated Complaint: Chest Pain Time Seen by Provider: 01/15/22 03:51 Source: patient, RN notes reviewed, old records reviewed Mode of arrival: ambulatory Limitations: no limitations - History of Present Illness Initial Comments: This is a 51-year-old male to the emergency department for evaluation patient on this emergency. Coming in today for evaluation of chest pain. Patient is usually complaining of chest pain and cellulitis. Patient states he was walking around all day he is known to be homeless in town. Also the bike ride. Patient has no trauma. No fevers. Patient does have someone with otherwise no complaints MD Complaint: chest pain -: hour(s) Onset: during rest, during exertion Pain Location: substernal Pain Radiation: none Severity: mild Severity scale (1-10): 2 Quality: aching Consistency: intermittent Improves With: nothing Worsens With: nothing Anginal Symptoms: other (0) Other Symptoms: other (0) Treatments Prior to Arrival: none - Related Data Home Medications Medication Instructions Recorded Confirmed Aspirin EC [Ecotrin Low Dose] 81 mg PO DAILY 05/23/21 12/25/21 Nitroglycerin Sl Tabs [Nitrostat] 0.4 mg SL Q5M PRN 06/28/21 12/25/21 Albuterol Sulfate [Proair Hfa] 2 puff INHALATION RT-QID PRN 10/14/21 12/25/21 Budesonide-Formot 160-4.5 Mcg 2 puff INHALATION RT-BID 10/14/21 12/25/21 [Symbicort 160-4.5 Mcg Inhaler] Metoprolol Succinate (ER) [Toprol 100 mg PO DAILY 10/14/21 12/25/21 XL] hydrALAZINE HCL [Apresoline] 100 mg PO TID 10/14/21 12/25/21 HYDROcodone/APAP 10-325MG [[place] 1 tab PO QID 11/20/21 12/25/21 10-325] cloNIDine HCL [Catapres] 0.3 mg PO TID 11/20/21 12/25/21 lisinopriL 40 mg PO DAILY 11/20/21 12/25/21 Sacubitril/Valsartan [Entresto 24 1 tab PO BID 12/21/21 12/25/21 mg-26 mg Tablet] Previous Rx's Medication Instructions Recorded Rivaroxaban [Xarelto] 20 mg PO W/SUPPER 30 Days #30 tab 07/31/21 Furosemide [Lasix] 40 mg PO BID@0900,1600 30 Days #60 08/04/21 tab metOLazone [Zaroxolyn] 5 mg PO DAILY #10 tab 10/17/21 Potassium Chloride ER [K-Dur 20] 20 meq PO BID #60 tab 11/23/21 Spironolactone [Aldactone] 25 mg PO DAILY #30 tab 11/23/21 Allergies Allergy/AdvReac Type Severity Reaction Status Date / Time ibuprofen [From Motrin] AdvReac Nausea & Verified 01/15/22 03:49 Vomiting simvastatin [From Zocor] AdvReac Dizziness Verified 01/15/22 03:49 Review of Systems ROS Statement: Those systems with pertinent positive or pertinent negative responses have been documented in the HPI. ROS Other: All systems not noted in ROS Statement are negative. Past Medical History Past Medical History: Atrial Fibrillation, COPD, Hyperlipidemia, Hypertension, Pneumonia Additional Past Medical History / Comment(s): Other HX; Costochondritis, chronic pain, chronic low back pain with bilateral sciatica, neuropathy bilateral hands/feet, migraines, kidney stones, past partial small bowel obstruction. HTN the last 10 yrs Stopped taking meds 5 yrs ago. 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 Past Anesthesia/Blood Transfusion Reactions: No Reported Reaction Past Psychological History: Anxiety, Bipolar, Depression, Schizophrenia Smoking Status: Current every day smoker Past Alcohol Use History: None Reported Past Drug Use History: Marijuana, Prescription Drug Abuse - Past Family History Father Family Medical History: Myocardial Infarction (SD) Additional Family Medical History / Comment(s): mi at age 35, still living Mother Family Medical History: Myocardial Infarction (SD) Additional Family Medical History / Comment(s): Mother has had at least one SD- pt unsure at what age. He has not had much contact with his mother since he was 17 yrs old. General Exam Limitations: no limitations General appearance: alert, in no apparent distress Head exam: Present: atraumatic, normocephalic, normal inspection Eye exam: Present: normal appearance, PERRL, EOMI. Absent: scleral icterus, conjunctival injection, periorbital swelling ENT exam: Present: normal exam, mucous membranes moist Neck exam: Present: normal inspection. Absent: tenderness, meningismus, lymphadenopathy Respiratory exam: Present: normal lung sounds bilaterally. Absent: respiratory distress, wheezes, rales, rhonchi, stridor Cardiovascular Exam: Present: regular rate, normal rhythm, normal heart sounds. Absent: systolic murmur, diastolic murmur, rubs, gallop, clicks GI/Abdominal exam: Present: soft, normal bowel sounds. Absent: distended, tenderness, guarding, rebound, rigid Extremities exam: Present: normal inspection, full ROM, normal capillary refill. Absent: tenderness, pedal edema, joint swelling, calf tenderness Back exam: Present: normal inspection Neurological exam: Present: alert, oriented X3, CN II-XII intact Psychiatric exam: Present: normal affect, normal mood Skin exam: Present: warm, dry, intact, normal color. Absent: rash Course Vital Signs 01/15/22 03:47 Temperature 98.0 F Pulse Rate 81 Respiratory 18 Rate Blood Pressure 155/95 O2 Sat by Pulse 98 Oximetry - Reevaluation(s) Reevaluation #1: 01/15/22 04:16 Medical record is reviewed Reevaluation #2: 01/15/22 05:03 Patient's chest pain has resolved Reevaluation #3: 01/15/22 05:03 Patient hasn't for some time to rest in the emergency department Reevaluation #4: 01/15/22 05:03 Patient informed results and questions are answered Chest Pain MDM - MDM 51 male who is well-known to our ER he does occasionally have history of chest pain and heart disease. Also to be homeless and symptoms including a place to stay. Patient currently is symptom-free without any complaint can be discharged home Disposition Clinical Impression: Chest pain, Atypical chest pain Disposition: HOME SELF-CARE Condition: Good Instructions (If sedation given, give patient instructions): Chest Pain (ED) Is patient prescribed a controlled substance at d/c from ED?: No Referrals: Clif Glasgow MD [Primary Care Provider] - 1-2 days Time of Disposition: 06:00
--- NOTE | 2022-01-15 05:17 | XR ---
EXAMINATION TYPE: XR chest 1V portable DATE OF EXAM: 01/15/2022 COMPARISON: 12/29/2021 HISTORY: Chest pain TECHNIQUE: FINDINGS: There is no heart failure nor confluent pneumonic infiltrate. Costophrenic angles are clear . Bony thorax is intact. IMPRESSION: No active cardiopulmonary disease. No change
[2022-01-15 06:04] VITALS: BP 160/98; PULSE 70; TEMP 97.7
== END 2022-01-15 06:05 | disposition home or self-care (01) ==
LOC: EC 03:46
DX: R07.89 Other chest pain (principal); I10 Essential (primary) hypertension; J44.9 Chronic obstructive pulmonary disease, unspecified; I48.91 Unspecified atrial fibrillation; F17.200 Nicotine dependence, unspecified, uncomplicated; Z59.00 Homelessness unspecified; Z79.899 Other long term (current) drug therapy; Z79.51 Long term (current) use of inhaled steroids; Z79.82 Long term (current) use of aspirin; Z88.6 Allergy status to analgesic agent; Z88.8 Allergy status to other drugs, medicaments and biological substances
CPT/HCPCS: 96372 ×2; 99285; 71045; 99284; J1170

== ENCOUNTER 2022-02-21 19:26 | Emergency (ER) | payer OTHER ==
[2022-02-21 19:48] VITALS: TEMP 98
[2022-02-21] MEDS ORDERED: KETOROLAC 15 MG/ML 1 ML VIAL IM STA (21:55)
[2022-02-21] MEDS ORDERED: SODIUM CHLORIDE 0.9% 1,000 ML IV STA (21:55)
--- NOTE | 2022-02-21 22:25 | XR ---
EXAMINATION TYPE: XR chest 2V DATE OF EXAM: 02/21/2022 COMPARISON: 01/15/2022 HISTORY: Chest pain TECHNIQUE: FINDINGS: There is no heart failure nor confluent pneumonic infiltrate. Costophrenic angles are clear . There are no hilar masses. The tract is intact. The pulmonary vascularity is normal. IMPRESSION: Normal chest. No change.
--- NOTE | 2022-02-21 22:28 | ED ---
Chest Pain HPI - General Chief Complaint: Chest Pain Stated Complaint: chest pains Time Seen by Provider: 02/21/22 21:50 Source: patient Mode of arrival: ambulatory Limitations: no limitations - History of Present Illness Initial Comments: Patient is a 51-year-old male presenting with chief complaint of chest pain. Patient has frequented our ER for similar complaints. States that the pain is sharp and located in the center of the chest, started today. Pain is sharp in nature. Does radiate to the back. It is worse with palpation and movement. He admits to some nausea vomiting. Denies any abdominal pain. No ripping tearing sensation. No lower extremity swelling. Patient is currently homeless. No headache, vision or hearing changes, numbness, tingling, dizziness, fever, chills. Patient is currently homeless, currently staying with friends. - Related Data Home Medications Medication Instructions Recorded Confirmed Aspirin EC [Ecotrin Low Dose] 81 mg PO DAILY 05/23/21 12/25/21 Nitroglycerin Sl Tabs [Nitrostat] 0.4 mg SL Q5M PRN 06/28/21 12/25/21 Albuterol Sulfate [Proair Hfa] 2 puff INHALATION RT-QID PRN 10/14/21 12/25/21 Budesonide-Formot 160-4.5 Mcg 2 puff INHALATION RT-BID 10/14/21 12/25/21 [Symbicort 160-4.5 Mcg Inhaler] Metoprolol Succinate (ER) [Toprol 100 mg PO DAILY 10/14/21 12/25/21 XL] hydrALAZINE HCL [Apresoline] 100 mg PO TID 10/14/21 12/25/21 HYDROcodone/APAP 10-325MG [[place] 1 tab PO QID 11/20/21 12/25/21 10-325] cloNIDine HCL [Catapres] 0.3 mg PO TID 11/20/21 12/25/21 lisinopriL 40 mg PO DAILY 11/20/21 12/25/21 Sacubitril/Valsartan [Entresto 24 1 tab PO BID 12/21/21 12/25/21 mg-26 mg Tablet] Previous Rx's Medication Instructions Recorded Rivaroxaban [Xarelto] 20 mg PO W/SUPPER 30 Days #30 tab 07/31/21 Furosemide [Lasix] 40 mg PO BID@0900,1600 30 Days #60 08/04/21 tab metOLazone [Zaroxolyn] 5 mg PO DAILY #10 tab 10/17/21 Potassium Chloride ER [K-Dur 20] 20 meq PO BID #60 tab 11/23/21 Spironolactone [Aldactone] 25 mg PO DAILY #30 tab 11/23/21 Allergies Allergy/AdvReac Type Severity Reaction Status Date / Time ibuprofen [From Motrin] AdvReac Nausea & Verified 02/21/22 19:48 Vomiting simvastatin [From Zocor] AdvReac Dizziness Verified 02/21/22 19:48 Review of Systems ROS Statement: Those systems with pertinent positive or pertinent negative responses have been documented in the HPI. ROS Other: All systems not noted in ROS Statement are negative. EKG Findings - EKG Comments: EKG Findings:: Sinus rhythm ventricular rate 66. ID interval 191. QRS duration 105. QT/QTc 428/442. Normal axis. No ST deviation. No acute change when compared to previous EKG. Past Medical History Past Medical History: Atrial Fibrillation, COPD, Hyperlipidemia, Hypertension, Pneumonia Additional Past Medical History / Comment(s): Other HX; Costochondritis, chronic pain, chronic low back pain with bilateral sciatica, neuropathy bilateral hands/feet, migraines, kidney stones, past partial small bowel obstruction. HTN the last 10 yrs Stopped taking meds 5 yrs ago. 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 Past Anesthesia/Blood Transfusion Reactions: No Reported Reaction Past Psychological History: Anxiety, Bipolar, Depression, Schizophrenia Smoking Status: Current every day smoker Past Alcohol Use History: None Reported Past Drug Use History: Marijuana, Prescription Drug Abuse - Past Family History Father Family Medical History: Myocardial Infarction ([place]) Additional Family Medical History / Comment(s): mi at age 35, still living Mother Family Medical History: Myocardial Infarction ([place]) Additional Family Medical History / Comment(s): Mother has had at least one [place]- pt unsure at what age. He has not had much contact with his mother since he was 17 yrs old. General Exam Limitations: no limitations General appearance: alert, in no apparent distress Head exam: Present: atraumatic, normocephalic, normal inspection Eye exam: Present: normal appearance, PERRL, EOMI. Absent: scleral icterus, conjunctival injection, periorbital swelling Neck exam: Present: normal inspection Respiratory exam: Present: normal lung sounds bilaterally, chest wall tenderness. Absent: respiratory distress, wheezes, rales, rhonchi, stridor Cardiovascular Exam: Present: regular rate, normal rhythm, normal heart sounds. Absent: systolic murmur, diastolic murmur, rubs, gallop, clicks Neurological exam: Present: alert, oriented X3, CN II-XII intact Psychiatric exam: Present: normal affect, normal mood Skin exam: Present: warm, dry, intact, normal color. 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 Pain is sharp in nature, worse with movement and palpation. On examination there is some chest wall tenderness. Heart and lungs are clear to auscultation. Lab work is grossly negative. Chest x-ray shows no acute process. EKG shows no ischemic changes. Heart score is 3. Patient states pain is improved. He is currently staying with a friend. Patient appears stable for discharge with outpatient follow-up at this time. Patient appears stable for discharge with outpatient follow-up at this time.Follow-up with PCP. Report back to ER with any new or worsening symptoms. Discussed return parameters and answered all questions. Patient conveyed verbal understanding and agreed to the plan. I discussed this case in detail with my attending Dr. Senior Disposition Clinical Impression: Chest pain Disposition: HOME SELF-CARE Condition: Good Instructions (If sedation given, give patient instructions): Chest Pain (ED) Additional Instructions: Follow-up with PCP. Report back to ER with any new or worsening symptoms. Is patient prescribed a controlled substance at d/c from ED?: No Referrals: Clif Glasgow MD [Primary Care Provider] - 1-2 days Time of Disposition: 00:16
--- NOTE | 2022-02-21 22:28 | ED ---
Chest Pain HPI - General Chief Complaint: Chest Pain Stated Complaint: chest pains Time Seen by Provider: 02/21/22 21:50 Source: patient Mode of arrival: ambulatory Limitations: no limitations - History of Present Illness Initial Comments: Patient is a 51-year-old male presenting with chief complaint of chest pain. Patient has frequented our ER for similar complaints. States that the pain is sharp and located in the center of the chest, started today. Pain is sharp in nature. Does radiate to the back. It is worse with palpation and movement. He admits to some nausea vomiting. Denies any abdominal pain. No ripping tearing sensation. No lower extremity swelling. Patient is currently homeless. No headache, vision or hearing changes, numbness, tingling, dizziness, fever, chills. Patient is currently homeless, currently staying with friends. - Related Data Home Medications Medication Instructions Recorded Confirmed Aspirin EC [Ecotrin Low Dose] 81 mg PO DAILY 05/23/21 12/25/21 Nitroglycerin Sl Tabs [Nitrostat] 0.4 mg SL Q5M PRN 06/28/21 12/25/21 Albuterol Sulfate [Proair Hfa] 2 puff INHALATION RT-QID PRN 10/14/21 12/25/21 Budesonide-Formot 160-4.5 Mcg 2 puff INHALATION RT-BID 10/14/21 12/25/21 [Symbicort 160-4.5 Mcg Inhaler] Metoprolol Succinate (ER) [Toprol 100 mg PO DAILY 10/14/21 12/25/21 XL] hydrALAZINE HCL [Apresoline] 100 mg PO TID 10/14/21 12/25/21 HYDROcodone/APAP 10-325MG [[place] 1 tab PO QID 11/20/21 12/25/21 10-325] cloNIDine HCL [Catapres] 0.3 mg PO TID 11/20/21 12/25/21 lisinopriL 40 mg PO DAILY 11/20/21 12/25/21 Sacubitril/Valsartan [Entresto 24 1 tab PO BID 12/21/21 12/25/21 mg-26 mg Tablet] Previous Rx's Medication Instructions Recorded Rivaroxaban [Xarelto] 20 mg PO W/SUPPER 30 Days #30 tab 07/31/21 Furosemide [Lasix] 40 mg PO BID@0900,1600 30 Days #60 08/04/21 tab metOLazone [Zaroxolyn] 5 mg PO DAILY #10 tab 10/17/21 Potassium Chloride ER [K-Dur 20] 20 meq PO BID #60 tab 11/23/21 Spironolactone [Aldactone] 25 mg PO DAILY #30 tab 11/23/21 Allergies Allergy/AdvReac Type Severity Reaction Status Date / Time ibuprofen [From Motrin] AdvReac Nausea & Verified 02/21/22 19:48 Vomiting simvastatin [From Zocor] AdvReac Dizziness Verified 02/21/22 19:48 Review of Systems ROS Statement: Those systems with pertinent positive or pertinent negative responses have been documented in the HPI. ROS Other: All systems not noted in ROS Statement are negative. EKG Findings - EKG Comments: EKG Findings:: Sinus rhythm ventricular rate 66. [place] interval 191. QRS duration 105. QT/QTc 428/442. Normal axis. No ST deviation. No acute change when compared to previous EKG. Past Medical History Past Medical History: Atrial Fibrillation, COPD, Hyperlipidemia, Hypertension, Pneumonia Additional Past Medical History / Comment(s): Other HX; Costochondritis, chronic pain, chronic low back pain with bilateral sciatica, neuropathy bilateral hands/feet, migraines, kidney stones, past partial small bowel obstruction. HTN the last 10 yrs Stopped taking meds 5 yrs ago. 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 Past Anesthesia/Blood Transfusion Reactions: No Reported Reaction Past Psychological History: Anxiety, Bipolar, Depression, Schizophrenia Smoking Status: Current every day smoker Past Alcohol Use History: None Reported Past Drug Use History: Marijuana, Prescription Drug Abuse - Past Family History Father Family Medical History: Myocardial Infarction ([place]) Additional Family Medical History / Comment(s): mi at age 35, still living Mother Family Medical History: Myocardial Infarction ([place]) Additional Family Medical History / Comment(s): Mother has had at least one [place]- pt unsure at what age. He has not had much contact with his mother since he was 17 yrs old. General Exam Limitations: no limitations General appearance: alert, in no apparent distress Head exam: Present: atraumatic, normocephalic, normal inspection Eye exam: Present: normal appearance, PERRL, EOMI. Absent: scleral icterus, conjunctival injection, periorbital swelling Neck exam: Present: normal inspection Respiratory exam: Present: normal lung sounds bilaterally, chest wall tenderness. Absent: respiratory distress, wheezes, rales, rhonchi, stridor Cardiovascular Exam: Present: regular rate, normal rhythm, normal heart sounds. Absent: systolic murmur, diastolic murmur, rubs, gallop, clicks Neurological exam: Present: alert, oriented X3, CN II-XII intact Psychiatric exam: Present: normal affect, normal mood Skin exam: Present: warm, dry, intact, normal color. 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 Pain is sharp in nature, worse with movement and palpation. On examination there is some chest wall tenderness. Heart and lungs are clear to auscultation. Lab work is grossly negative. Chest x-ray shows no acute process. EKG shows no ischemic changes. Heart score is 3. Patient states pain is improved. He is currently staying with a friend. Patient appears stable for discharge with outpatient follow-up at this time. Patient appears stable for discharge with outpatient follow-up at this time.Follow-up with PCP. Report back to ER with any new or worsening symptoms. Discussed return parameters and answered all questions. Patient conveyed verbal understanding and agreed to the plan. I discussed this case in detail with my attending Dr. Senior Disposition Clinical Impression: Chest pain Disposition: HOME SELF-CARE Condition: Good Instructions (If sedation given, give patient instructions): Chest Pain (ED) Additional Instructions: Follow-up with PCP. Report back to ER with any new or worsening symptoms. Is patient prescribed a controlled substance at d/c from ED?: No Referrals: Clif Glasgow MD [Primary Care Provider] - 1-2 days Time of Disposition: 00:16
[2022-02-21] MEDS ORDERED: KETOROLAC 15 MG/ML 1 ML VIAL IVP STA (22:54)
[2022-02-21 23:01] LABS: Basophils # (A) 0.1 k/uL (0-0.2); Basophils % (A) 1 %; Eosinophils # (A) 0.3 k/uL (0-0.7); Eosinophils % (A) 3 %; HCT 44.5 % (39.0-53.0); Lymphocytes # (A) 2.1 k/uL (1.0-4.8); Lymphocytes % (A) 23 %; MCH 32.9 pg (25.0-35.0); MCHC 35.9 g/dL (31.0-37.0); MCV 91.7 fL (80.0-100.0); Mean Platelet Volume 8.7; Monocytes # (A) 0.6 k/uL (0-1.0); Monocytes % (A) 7 %; Neutrophils # (A) 5.9 k/uL (1.3-7.7); Neutrophils % (A) 64 %; Platelet Count 208 k/uL (150-450); RBC 4.86 m/uL (4.30-5.90); RDW 13.6 % (11.5-15.5); WBC 9.1 k/uL (3.8-10.6)
[2022-02-21 23:11] LABS: ALT 22 U/L (4-49); AST 37 U/L (17-59); African American GFR (CKD) >90 (>60 ml/min/1.73 sqM); Albumin 4.4 g/dL (3.5-5.0); Alkaline Phosphatase 96 U/L (38-126); Amylase 77 U/L (30-110); Anion Gap 11 mmol/L; Blood Urea Nitrogen 13 mg/dL (9-20); Calcium 9.1 mg/dL (8.4-10.2); Carbon Dioxide 25 mmol/L (22-30); Chloride 101 mmol/L (98-107); Glucose 91 mg/dL (74-99); Lipase 92 U/L (23-300); Magnesium 1.8 mg/dL (1.6-2.3); Non-African American GFR(CKD) >90 (>60 ml/min/1.73 sqM); Potassium 4.2 mmol/L (3.5-5.1); Sodium 137 mmol/L (137-145); Total Bilirubin 0.6 mg/dL (0.2-1.3); Total Protein 7.1 g/dL (6.3-8.2)
[2022-02-21 23:19] LABS: Partial Thromboplastin Time 24.1 sec (22.0-30.0); Prothrombin Time 10.9 sec (9.0-12.0)
[2022-02-21 23:36] LABS: Appearance,Urine Clear (Clear); Bilirubin,Urine Negative (Negative); Blood,Urine Negative (Negative); Color,Urine Yellow; Glucose,Urine (UA) Negative (Negative); Hyaline Casts,Urine 22 /lpf (0-2); Ketones,Urine Negative (Negative); Leukocyte Esterase,Urine Negative (Negative); Mucus,Urine Occasional /hpf; Nitrite,Urine Negative (Negative); Protein,Urine 1+ (Negative); RBC,Urine <1 /hpf (0-5); Specific Gravity,Urine 1.032 (1.001-1.035); Squamous Epithelial Cell,Urine <1 /hpf (0-4); WBC,Urine 1 /hpf (0-5)
[2022-02-21] MEDS ORDERED: HYDROmorphone 0.5 MG/0.5 ML SYRINGE IVP STA (23:56)
[2022-02-22 01:36] VITALS: BP 144/88; PULSE 66; RESP 18
== END 2022-02-22 00:22 | disposition home or self-care (01) ==
LOC: EC 19:26
DX: R07.9 Chest pain, unspecified (principal); I10 Essential (primary) hypertension; I48.91 Unspecified atrial fibrillation; J44.9 Chronic obstructive pulmonary disease, unspecified; E78.5 Hyperlipidemia, unspecified; F41.9 Anxiety disorder, unspecified; F31.9 Bipolar disorder, unspecified; F17.200 Nicotine dependence, unspecified, uncomplicated; F12.90 Cannabis use, unspecified, uncomplicated; Z79.82 Long term (current) use of aspirin; Z79.899 Other long term (current) drug therapy; Z79.01 Long term (current) use of anticoagulants; Z79.83 Long term (current) use of bisphosphonates; Z88.6 Allergy status to analgesic agent; Z88.8 Allergy status to other drugs, medicaments and biological substances; Z20.822 Contact with and (suspected) exposure to COVID-19
CPT/HCPCS: 36415; 93005; 85379; 83880; 80053; 82150; 83690; 83735; 84484; 85025; 85610; 85730; 81001; 87635; 71046; 99285; 96374; 96375; 96361; 96372; J1885

== ENCOUNTER 2022-02-24 15:38 | Emergency (ER) | payer OTHER ==
[2022-02-24] MEDS ORDERED: SODIUM CHLORIDE 0.9% 500 ML 500 ML IV STA (16:37)
--- NOTE | 2022-02-24 16:44 | ED ---
General Adult HPI - General Chief complaint: Chest Pain Stated complaint: Chest pains Time Seen by Provider: 02/24/22 16:28 Source: patient, RN notes reviewed, old records reviewed Mode of arrival: ambulatory Limitations: no limitations - History of Present Illness Initial comments: 51-year-old male, alert and oriented presents to the emergency room complaining of chest pain that started 4 days ago radiating into his back. Patient states he was also here February 21 for examination of this chest pain. Patient states that he did take 3 nitro this morning around 9:30 with no relief. Denies any fevers, nausea vomiting or diarrhea. States he has chills but no fevers. Is a smoker, cigarettes and marijuana. denies drug use or alcohol use. -: days(s) (4) Location: chest Radiation: back Severity scale (1-10): 10 Quality: stabbing, sharp Consistency: constant Improves with: none Worsens with: other (deep breath) Associated Symptoms: fever/chills (chills) Treatments Prior to Arrival: other (nitro x3 at 0930) - Related Data Home Medications Medication Instructions Recorded Confirmed Aspirin EC [Ecotrin Low Dose] 81 mg PO DAILY 05/23/21 12/25/21 Nitroglycerin Sl Tabs [Nitrostat] 0.4 mg SL Q5M PRN 06/28/21 12/25/21 Albuterol Sulfate [Proair Hfa] 2 puff INHALATION RT-QID PRN 10/14/21 12/25/21 Budesonide-Formot 160-4.5 Mcg 2 puff INHALATION RT-BID 10/14/21 12/25/21 [Symbicort 160-4.5 Mcg Inhaler] Metoprolol Succinate (ER) [Toprol 100 mg PO DAILY 10/14/21 12/25/21 XL] hydrALAZINE HCL [Apresoline] 100 mg PO TID 10/14/21 12/25/21 HYDROcodone/APAP 10-325MG [[place] 1 tab PO QID 11/20/21 12/25/21 10-325] cloNIDine HCL [Catapres] 0.3 mg PO TID 11/20/21 12/25/21 lisinopriL 40 mg PO DAILY 11/20/21 12/25/21 Sacubitril/Valsartan [Entresto 24 1 tab PO BID 12/21/21 12/25/21 mg-26 mg Tablet] Previous Rx's Medication Instructions Recorded Rivaroxaban [Xarelto] 20 mg PO W/SUPPER 30 Days #30 tab 07/31/21 Furosemide [Lasix] 40 mg PO BID@0900,1600 30 Days #60 08/04/21 tab metOLazone [Zaroxolyn] 5 mg PO DAILY #10 tab 10/17/21 Potassium Chloride ER [K-Dur 20] 20 meq PO BID #60 tab 11/23/21 Spironolactone [Aldactone] 25 mg PO DAILY #30 tab 11/23/21 Allergies Allergy/AdvReac Type Severity Reaction Status Date / Time ibuprofen [From Motrin] AdvReac Nausea & Verified 02/24/22 15:41 Vomiting simvastatin [From Zocor] AdvReac Dizziness Verified 02/24/22 15:41 Review of Systems ROS Statement: Those systems with pertinent positive or pertinent negative responses have been documented in the HPI. ROS Other: All systems not noted in ROS Statement are negative. Past Medical History Past Medical History: Atrial Fibrillation, COPD, Hyperlipidemia, Hypertension, Pneumonia Additional Past Medical History / Comment(s): Other HX; Costochondritis, chronic pain, chronic low back pain with bilateral sciatica, neuropathy bilateral hands/feet, migraines, kidney stones, past partial small bowel obstruction. HTN the last 10 yrs Stopped taking meds 5 yrs ago. 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 Past Anesthesia/Blood Transfusion Reactions: No Reported Reaction Past Psychological History: Anxiety, Bipolar, Depression, Schizophrenia Smoking Status: Current every day smoker Past Alcohol Use History: None Reported Past Drug Use History: Marijuana, Prescription Drug Abuse - Past Family History Father Family Medical History: Myocardial Infarction ([place]) Additional Family Medical History / Comment(s): mi at age 35, still living Mother Family Medical History: Myocardial Infarction ([place]) Additional Family Medical History / Comment(s): Mother has had at least one [place]- pt unsure at what age. He has not had much contact with his mother since he was 17 yrs old. General Exam Limitations: no limitations General appearance: alert, in no apparent distress Head exam: Present: atraumatic Eye exam: Absent: scleral icterus, conjunctival injection Neck exam: Present: full ROM. Absent: meningismus Respiratory exam: Present: normal lung sounds bilaterally. Absent: respiratory distress, wheezes, rales, rhonchi, stridor, chest wall tenderness, accessory muscle use, decreased breath sounds Cardiovascular Exam: Present: regular rate GI/Abdominal exam: Present: soft. Absent: distended, tenderness, guarding, rebound, rigid Extremities exam: Present: normal capillary refill, other (bilateral posterior tibial pulses present and equal bilaterally). Absent: pedal edema Back exam: Present: normal inspection, full ROM. Absent: tenderness, CVA tender ness (R), CVA tenderness (L), rash noted Neurological exam: Present: alert, oriented X3 Psychiatric exam: Present: normal affect, normal mood Skin exam: Present: warm, dry, normal color. Absent: cyanosis, diaphoretic, petechiae, pallor Course Vital Signs 02/24/22 02/24/22 15:40 18:25 Temperature 97.8 F 97.7 F Pulse Rate 87 61 Respiratory 20 18 Rate Blood Pressure 142/79 159/91 O2 Sat by Pulse 99 100 Oximetry EKG Findings - EKG Results: EKG: sinus rhythm (Ventricular rate 76, [place] interval 0.164, QRS 0.106, QTC 0.4-6 normal axis), not changed from: (02/21/22) Medical Decision Making - Medical Decision Making Patient seen here for same chest pain on 02/21. He was diagnosed with costochondritis after workup. He has been seen in the emergency room multiple times for chest pains in the past. He had a cardiology consult in December of this year and had echocardiogram in November 2021. Repeat labs and EKG were performed today showing no acute changes. Lung sounds are clear to auscultation. Vital signs are stable. Patient requesting pain medication, was given Toradol for pain and inflammation. Directed to increase his fluid intake. Follow up with his primary care doctor Case discussed with Dr. Ponce. - Lab Data Result diagrams: 02/24/22 17:15 02/24/22 17:15 Lab Results 10/02/24/22 02/24/22 Range/Units 17:15 17:15 17:15 WBC 7.4 (3.8-10.6) k/uL RBC 4.68 (4.30-5.90) m/uL Hgb 15.4 (13.0-17.5) gm/dL Hct 43.3 (39.0-53.0) % MCV 92.5 (80.0-100.0) fL MCH 32.9 (25.0-35.0) pg MCHC 35.5 (31.0-37.0) g/dL RDW 13.7 (11.5-15.5) % Plt Count 196 (150-450) k/uL MPV 9.0 Neutrophils % 72 % Lymphocytes % 17 % Monocytes % 6 % Eosinophils % 2 % Basophils % 1 % Neutrophils # 5.4 (1.3-7.7) k/uL Lymphocytes # 1.3 (1.0-4.8) k/uL Monocytes # 0.5 (0-1.0) k/uL Eosinophils # 0.1 (0-0.7) k/uL Basophils # 0.1 (0-0.2) k/uL D-Dimer <0.17 (<0.60) mg/L FEU Sodium 139 (137-145) mmol/L Potassium 4.1 (3.5-5.1) mmol/L Chloride 105 (98-107) mmol/L Carbon Dioxide 26 (22-30) mmol/L Anion Gap 8 mmol/L BUN 16 (9-20) mg/dL Creatinine 0.89 (0.66-1.25) mg/dL Est GFR (CKD-EPI)AfAm >90 (>60 ml/min/1.73 sqM) Est GFR (CKD-EPI)NonAf >90 (>60 ml/min/1.73 sqM) Glucose 88 (74-99) mg/dL Calcium 9.1 (8.4-10.2) mg/dL Magnesium 1.8 (1.6-2.3) mg/dL Total Bilirubin 0.7 (0.2-1.3) mg/dL AST 38 (17-59) U/L ALT 23 (4-49) U/L Alkaline Phosphatase 77 (38-126) U/L Troponin I (0.000-0.034) ng/mL Total Protein 7.2 (6.3-8.2) g/dL Albumin 4.6 (3.5-5.0) g/dL 02/24/22 Range/Units 17:15 WBC (3.8-10.6) k/uL RBC (4.30-5.90) m/uL Hgb (13.0-17.5) gm/dL Hct (39.0-53.0) % MCV (80.0-100.0) fL MCH (25.0-35.0) pg MCHC (31.0-37.0) g/dL RDW (11.5-15.5) % Plt Count (150-450) k/uL MPV Neutrophils % % Lymphocytes % % Monocytes % % Eosinophils % % Basophils % % Neutrophils # (1.3-7.7) k/uL Lymphocytes # (1.0-4.8) k/uL Monocytes # (0-1.0) k/uL Eosinophils # (0-0.7) k/uL Basophils # (0-0.2) k/uL D-Dimer (<0.60) mg/L FEU Sodium (137-145) mmol/L Potassium (3.5-5.1) mmol/L Chloride (98-107) mmol/L Carbon Dioxide (22-30) mmol/L Anion Gap mmol/L BUN (9-20) mg/dL Creatinine (0.66-1.25) mg/dL Est GFR (CKD-EPI)AfAm (>60 ml/min/1.73 sqM) Est GFR (CKD-EPI)NonAf (>60 ml/min/1.73 sqM) Glucose (74-99) mg/dL Calcium (8.4-10.2) mg/dL Magnesium (1.6-2.3) mg/dL Total Bilirubin (0.2-1.3) mg/dL AST (17-59) U/L ALT (4-49) U/L Alkaline Phosphatase (38-126) U/L Troponin I <0.012 (0.000-0.034) ng/mL Total Protein (6.3-8.2) g/dL Albumin (3.5-5.0) g/dL Disposition Clinical Impression: Chest pain, Costochondritis Disposition: HOME SELF-CARE Condition: Good Instructions (If sedation given, give patient instructions): Chest Pain (ED), Costochondritis (ED) Additional Instructions: Your lab work and EKG, showed no evidence of concern. Increase your fluid intake, continue taking your aspirin daily to help with costochondritis pain. Follow-up with primary care doctor on Saturday. Is patient prescribed a controlled substance at d/c from ED?: No Referrals: Clif Glasgow MD [Primary Care Provider] - 1-2 days Time of Disposition: 17:56
[2022-02-24 17:29] LABS: Basophils # (A) 0.1 k/uL (0-0.2); Basophils % (A) 1 %; Eosinophils # (A) 0.1 k/uL (0-0.7); Eosinophils % (A) 2 %; HCT 43.3 % (39.0-53.0); HGB 15.4 gm/dL (13.0-17.5); Lymphocytes # (A) 1.3 k/uL (1.0-4.8); Lymphocytes % (A) 17 %; MCH 32.9 pg (25.0-35.0); MCHC 35.5 g/dL (31.0-37.0); MCV 92.5 fL (80.0-100.0); Monocytes # (A) 0.5 k/uL (0-1.0); Monocytes % (A) 6 %; Neutrophils # (A) 5.4 k/uL (1.3-7.7); Neutrophils % (A) 72 %; Platelet Count 196 k/uL (150-450); RBC 4.68 m/uL (4.30-5.90); RDW 13.7 % (11.5-15.5); WBC 7.4 k/uL (3.8-10.6)
[2022-02-24 17:38] LABS: ALT 23 U/L (4-49); AST 38 U/L (17-59); African American GFR (CKD) >90 (>60 ml/min/1.73 sqM); Albumin 4.6 g/dL (3.5-5.0); Alkaline Phosphatase 77 U/L (38-126); Anion Gap 8 mmol/L; Blood Urea Nitrogen 16 mg/dL (9-20); Calcium 9.1 mg/dL (8.4-10.2); Carbon Dioxide 26 mmol/L (22-30); Chloride 105 mmol/L (98-107); Glucose 88 mg/dL (74-99); Magnesium 1.8 mg/dL (1.6-2.3); Non-African American GFR(CKD) >90 (>60 ml/min/1.73 sqM); Potassium 4.1 mmol/L (3.5-5.1); Sodium 139 mmol/L (137-145); Total Bilirubin 0.7 mg/dL (0.2-1.3); Total Protein 7.2 g/dL (6.3-8.2)
[2022-02-24] MEDS ORDERED: KETOROLAC 15 MG/ML 1 ML VIAL IVP STA (17:46)
[2022-02-24 18:27] VITALS: BP 159/91; PULSE 61; RESP 18; TEMP 97.7
== END 2022-02-24 18:26 | disposition home or self-care (01) ==
LOC: EC 15:38
DX: M94.0 Chondrocostal junction syndrome [Tietze] (principal); I48.91 Unspecified atrial fibrillation; J44.9 Chronic obstructive pulmonary disease, unspecified; F12.90 Cannabis use, unspecified, uncomplicated; E78.5 Hyperlipidemia, unspecified; I10 Essential (primary) hypertension; J18.9 Pneumonia, unspecified organism; F17.200 Nicotine dependence, unspecified, uncomplicated; F41.9 Anxiety disorder, unspecified; F31.9 Bipolar disorder, unspecified; Z79.82 Long term (current) use of aspirin; Z79.51 Long term (current) use of inhaled steroids; Z79.01 Long term (current) use of anticoagulants; Z88.6 Allergy status to analgesic agent; Z88.8 Allergy status to other drugs, medicaments and biological substances
CPT/HCPCS: 36415; 85379; 80053; 83735; 84484; 85025; 99285; 96374; 96361; J1885; 93005

== ENCOUNTER 2022-02-25 00:19 | Emergency (ER) | payer OTHER ==
--- NOTE | 2022-02-25 00:57 | ED ---
Chest Pain HPI - General Chief Complaint: Chest Pain Stated Complaint: chest pain Time Seen by Provider: 02/25/22 00:29 Source: patient, RN notes reviewed, old records reviewed Mode of arrival: ambulatory Limitations: no limitations - History of Present Illness Initial Comments: This is a 51-year-old male to the emergency department for evaluation. Patient was here earlier in the day for chest pain. Patient presents for recurrent evaluation regarding his chest pain. No change in symptoms. No traumatic injury noted. Patient is multiple ER visits is well-known to our ER and comes and often for chest MD Complaint: chest pain -: hour(s) Onset: during rest, during exertion, after eating, awoke with symptoms Pain Location: substernal, left chest Pain Radiation: none Severity: mild Severity scale (1-10): 4 Quality: tightness, aching, heaviness Consistency: intermittent Improves With: nothing Worsens With: nothing Anginal Symptoms: other (0) Other Symptoms: other (0) Treatments Prior to Arrival: none - Related Data Home Medications Medication Instructions Recorded Confirmed Aspirin EC [Ecotrin Low Dose] 81 mg PO DAILY 05/23/21 12/25/21 Nitroglycerin Sl Tabs [Nitrostat] 0.4 mg SL Q5M PRN 06/28/21 12/25/21 Albuterol Sulfate [Proair Hfa] 2 puff INHALATION RT-QID PRN 10/14/21 12/25/21 Budesonide-Formot 160-4.5 Mcg 2 puff INHALATION RT-BID 10/14/21 12/25/21 [Symbicort 160-4.5 Mcg Inhaler] Metoprolol Succinate (ER) [Toprol 100 mg PO DAILY 10/14/21 12/25/21 XL] hydrALAZINE HCL [Apresoline] 100 mg PO TID 10/14/21 12/25/21 HYDROcodone/APAP 10-325MG [[place] 1 tab PO QID 11/20/21 12/25/21 10-325] cloNIDine HCL [Catapres] 0.3 mg PO TID 11/20/21 12/25/21 lisinopriL 40 mg PO DAILY 11/20/21 12/25/21 Sacubitril/Valsartan [Entresto 24 1 tab PO BID 12/21/21 12/25/21 mg-26 mg Tablet] Previous Rx's Medication Instructions Recorded Rivaroxaban [Xarelto] 20 mg PO W/SUPPER 30 Days #30 tab 07/31/21 Furosemide [Lasix] 40 mg PO BID@0900,1600 30 Days #60 08/04/21 tab metOLazone [Zaroxolyn] 5 mg PO DAILY #10 tab 10/17/21 Potassium Chloride ER [K-Dur 20] 20 meq PO BID #60 tab 11/23/21 Spironolactone [Aldactone] 25 mg PO DAILY #30 tab 11/23/21 Allergies Allergy/AdvReac Type Severity Reaction Status Date / Time ibuprofen [From Motrin] AdvReac Nausea & Verified 02/25/22 00:25 Vomiting simvastatin [From Zocor] AdvReac Dizziness Verified 02/25/22 00:25 Review of Systems ROS Statement: Those systems with pertinent positive or pertinent negative responses have been documented in the HPI. ROS Other: All systems not noted in ROS Statement are negative. EKG Findings - EKG Comments: EKG Findings:: EKG is sinus rhythm 74 SC 166 QRS 109 QTC 439 Past Medical History Past Medical History: Atrial Fibrillation, COPD, Hyperlipidemia, Hypertension, Pneumonia Additional Past Medical History / Comment(s): Other HX; Costochondritis, chronic pain, chronic low back pain with bilateral sciatica, neuropathy bilateral hands/feet, migraines, kidney stones, past partial small bowel obstruction. HTN the last 10 yrs Stopped taking meds 5 yrs ago. 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 Past Anesthesia/Blood Transfusion Reactions: No Reported Reaction Past Psychological History: Anxiety, Bipolar, Depression, Schizophrenia Smoking Status: Current every day smoker Past Alcohol Use History: None Reported Past Drug Use History: Marijuana, Prescription Drug Abuse - Past Family History Father Family Medical History: Myocardial Infarction ([place]) Additional Family Medical History / Comment(s): mi at age 35, still living Mother Family Medical History: Myocardial Infarction ([place]) Additional Family Medical History / Comment(s): Mother has had at least one [place]- pt unsure at what age. He has not had much contact with his mother since he was 17 yrs old. General Exam Limitations: no limitations General appearance: alert, in no apparent distress Head exam: Present: atraumatic, normocephalic, normal inspection Eye exam: Present: normal appearance, PERRL, EOMI. Absent: scleral icterus, conjunctival injection, periorbital swelling ENT exam: Present: normal exam, mucous membranes moist Neck exam: Present: normal inspection. Absent: tenderness, meningismus, lymphadenopathy Respiratory exam: Present: normal lung sounds bilaterally. Absent: respiratory distress, wheezes, rales, rhonchi, stridor Cardiovascular Exam: Present: regular rate, normal rhythm, normal heart sounds. Absent: systolic murmur, diastolic murmur, rubs, gallop, clicks GI/Abdominal exam: Present: soft, normal bowel sounds. Absent: distended, tenderness, guarding, rebound, rigid Extremities exam: Present: normal inspection, full ROM, normal capillary refill. Absent: tenderness, pedal edema, joint swelling, calf tenderness Back exam: Present: normal inspection Neurological exam: Present: alert, oriented X3, CN II-XII intact Psychiatric exam: Present: normal affect, normal mood Skin exam: Present: warm, dry, intact, normal color. Absent: rash Course Vital Signs 02/25/22 00:22 Temperature 98.3 F Pulse Rate 73 Respiratory 20 Rate Blood Pressure 152/87 O2 Sat by Pulse 97 Oximetry - Reevaluation(s) Reevaluation #1: 02/25/22 02:32 Medical record is reviewed Reevaluation #2: 02/25/22 02:33 Patient informed results and questions answered Reevaluation #3: 02/25/22 02:33 Patient's chest pain is improved Chest Pain MDM - MDM 51 male to the emergency department for chest pain seen earlier today for chest pain. EKG is normal and unchanged. Patient's pain is controlled and can be discharged home Disposition Clinical Impression: Chest wall syndrome, Atypical chest pain Disposition: HOME SELF-CARE Condition: Good Instructions (If sedation given, give patient instructions): Chest Pain (ED), Costochondritis (ED) Is patient prescribed a controlled substance at d/c from ED?: No Referrals: Clif Glasgow MD [Primary Care Provider] - 1-2 days Time of Disposition: 02:25
[2022-02-25] MEDS ORDERED: traMADol 50 MG STARTER PACK 3 TAB BTL PO STA (01:57)
[2022-02-25] MEDS ORDERED: HYDROmorphone 1 MG/ML 1 ML SYRINGE IM STA (01:57)
[2022-02-25 03:46] VITALS: BP 164/108; PULSE 58; RESP 18; TEMP 97.6
== END 2022-02-25 03:46 | disposition home or self-care (01) ==
LOC: EC 00:19
DX: R07.89 Other chest pain (principal); R07.1 Chest pain on breathing; I48.91 Unspecified atrial fibrillation; J44.9 Chronic obstructive pulmonary disease, unspecified; E78.5 Hyperlipidemia, unspecified; I10 Essential (primary) hypertension; J18.9 Pneumonia, unspecified organism; F41.9 Anxiety disorder, unspecified; F31.9 Bipolar disorder, unspecified; F20.9 Schizophrenia, unspecified; F12.90 Cannabis use, unspecified, uncomplicated; F17.200 Nicotine dependence, unspecified, uncomplicated; Z79.51 Long term (current) use of inhaled steroids; Z79.82 Long term (current) use of aspirin; Z79.811 Long term (current) use of aromatase inhibitors; Z79.01 Long term (current) use of anticoagulants; Z88.6 Allergy status to analgesic agent; Z88.8 Allergy status to other drugs, medicaments and biological substances
CPT/HCPCS: 99284; 96372; J1170

== ENCOUNTER 2022-02-28 01:03 | Emergency (ER) | payer OTHER ==
[2022-02-28 01:24] VITALS: TEMP 98
[2022-02-28] MEDS ORDERED: HYDROcodone/APAP 10-325MG 1 EACH TAB PO ONE (04:34)
[2022-02-28 05:00] LABS: Appearance,Urine Clear (Clear); Bilirubin,Urine Negative (Negative); Blood,Urine Negative (Negative); Color,Urine Yellow; Glucose,Urine (UA) Negative (Negative); Ketones,Urine Negative (Negative); Leukocyte Esterase,Urine Negative (Negative); Mucus,Urine Many /hpf; Nitrite,Urine Negative (Negative); PH, Urine 5.5 (5.0-8.0); Protein,Urine 1+ (Negative); RBC,Urine 1 /hpf (0-5); Specific Gravity,Urine 1.037 (1.001-1.035); WBC,Urine 1 /hpf (0-5)
--- NOTE | 2022-02-28 05:16 | ED ---
Extremity Problem HPI - General Chief complaint: Extremity Problem,Nontraumatic Stated complaint: Left leg swelling/adema Time Seen by Provider: 02/28/22 01:30 Source: patient Mode of arrival: ambulatory Limitations: no limitations - History of Present Illness Initial comments: 51-year-old male with past medical history of chronic cellulitis, retention, A. fib who presents to the emergency department with lower extremity pain. Reports that he has chronic lower extremity pain however was having worsening pain tonight. He does have recurrent cellulitis and felt like his skin was red in coloration therefore presents for evaluation. Also reports to increased frequency of urination. Denies hematuria. No history of renal stones. Denies any testicular pain or swelling. No other alleviating, precipitating or modifying factors - Related Data Home Medications Medication Instructions Recorded Confirmed Aspirin EC [Ecotrin Low Dose] 81 mg PO DAILY 05/23/21 12/25/21 Nitroglycerin Sl Tabs [Nitrostat] 0.4 mg SL Q5M PRN 06/28/21 12/25/21 Albuterol Sulfate [Proair Hfa] 2 puff INHALATION RT-QID PRN 10/14/21 12/25/21 Budesonide-Formot 160-4.5 Mcg 2 puff INHALATION RT-BID 10/14/21 12/25/21 [Symbicort 160-4.5 Mcg Inhaler] Metoprolol Succinate (ER) [Toprol 100 mg PO DAILY 10/14/21 12/25/21 XL] hydrALAZINE HCL [Apresoline] 100 mg PO TID 10/14/21 12/25/21 HYDROcodone/APAP 10-325MG [[place] 1 tab PO QID 11/20/21 12/25/21 10-325] cloNIDine HCL [Catapres] 0.3 mg PO TID 11/20/21 12/25/21 lisinopriL 40 mg PO DAILY 11/20/21 12/25/21 Sacubitril/Valsartan [Entresto 24 1 tab PO BID 12/21/21 12/25/21 mg-26 mg Tablet] Previous Rx's Medication Instructions Recorded Rivaroxaban [Xarelto] 20 mg PO W/SUPPER 30 Days #30 tab 07/31/21 Furosemide [Lasix] 40 mg PO BID@0900,1600 30 Days #60 08/04/21 tab metOLazone [Zaroxolyn] 5 mg PO DAILY #10 tab 10/17/21 Potassium Chloride ER [K-Dur 20] 20 meq PO BID #60 tab 11/23/21 Spironolactone [Aldactone] 25 mg PO DAILY #30 tab 11/23/21 Allergies Allergy/AdvReac Type Severity Reaction Status Date / Time ibuprofen [From Motrin] AdvReac Nausea & Verified 03/01/22 00:56 Vomiting simvastatin [From Zocor] AdvReac Dizziness Verified 03/01/22 00:56 Review of Systems ROS Statement: Those systems with pertinent positive or pertinent negative responses have been documented in the HPI. ROS Other: All systems not noted in ROS Statement are negative. Past Medical History Past Medical History: Atrial Fibrillation, COPD, Hyperlipidemia, Hypertension, Pneumonia Additional Past Medical History / Comment(s): Other HX; Costochondritis, chronic pain, chronic low back pain with bilateral sciatica, neuropathy bilateral hands/feet, migraines, kidney stones, past partial small bowel obstruction. HTN the last 10 yrs Stopped taking meds 5 yrs ago. 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 Past Anesthesia/Blood Transfusion Reactions: No Reported Reaction Past Psychological History: Anxiety, Bipolar, Depression, Schizophrenia Smoking Status: Current every day smoker Past Alcohol Use History: None Reported Past Drug Use History: Marijuana, Prescription Drug Abuse - Past Family History Father Family Medical History: Myocardial Infarction ([place]) Additional Family Medical History / Comment(s): mi at age 35, still living Mother Family Medical History: Myocardial Infarction ([place]) Additional Family Medical History / Comment(s): Mother has had at least one [place]- pt unsure at what age. He has not had much contact with his mother since he was 17 yrs old. General Exam Limitations: no limitations General appearance: alert, in no apparent distress Head exam: Present: atraumatic, normocephalic, normal inspection Eye exam: Present: normal appearance, PERRL, EOMI. Absent: scleral icterus, conjunctival injection, periorbital swelling ENT exam: Present: normal exam, mucous membranes moist Neck exam: Present: normal inspection. Absent: tenderness, meningismus, lymphadenopathy Respiratory exam: Present: normal lung sounds bilaterally. Absent: respiratory distress, wheezes, rales, rhonchi, stridor Cardiovascular Exam: Present: regular rate, normal rhythm, normal heart sounds. Absent: systolic murmur, diastolic murmur, rubs, gallop, clicks GI/Abdominal exam: Present: soft, normal bowel sounds. Absent: distended, tenderness, guarding, rebound, rigid Extremities exam: Present: normal inspection, full ROM, normal capillary refill, other (no redness to shins. No deformity. Normal cap refill. 2+ DP and pt pulses. nO swelling). Absent: tenderness, pedal edema, joint swelling, calf tenderness Back exam: Present: normal inspection Neurological exam: Present: alert, oriented X3, CN II-XII intact Psychiatric exam: Present: normal affect, normal mood Skin exam: Present: warm, dry, intact, normal color. Absent: rash Course Vital Signs 02/28/22 02/28/22 01:22 05:36 Temperature 98.0 F Pulse Rate 93 90 Respiratory 18 16 Rate Blood Pressure 151/95 122/88 O2 Sat by Pulse 95 100 Oximetry Medical Decision Making - Medical Decision Making Upon arrival patient's placed into room 29. Thorough history and physical exam was performed. Patient given a [place] for pain control. Evaluation does not demonstrate any significant cellulitis at this time. Due to his increased frequency of urination I did complete a UA. No signs of infection or bleeding. Patient will be discharged home at this time and instructed to follow up with his primary care doctor. We will reserve antibiotics when there is higher clinical concern for cellulitis. Patient was agreeable to this. He is to return for any new or worsening symptoms. Patient discharged in stable condition - Lab Data Lab Results 02/28/22 Range/Units 04:43 Urine Color Yellow Urine Appearance Clear (Clear) Urine pH 5.5 (5.0-8.0) Ur Specific [place] 1.037 H (1.001-1.035) Urine Protein 1+ H (Negative) Urine Glucose (UA) Negative (Negative) Urine Ketones Negative (Negative) Urine Blood Negative (Negative) Urine Nitrite Negative (Negative) Urine Bilirubin Negative (Negative) Urine Urobilinogen 2.0 (<2.0) mg/dL Ur Leukocyte Esterase Negative (Negative) Urine RBC 1 (0-5) /hpf Urine WBC 1 (0-5) /hpf Urine Mucus Many H (None) /hpf Disposition Clinical Impression: Leg pain Disposition: HOME SELF-CARE Condition: Stable Instructions (If sedation given, give patient instructions): Leg Pain (ED) Additional Instructions: Please follow-up with your primary care doctor in 2-4 days and return for any new or worsening symptoms Is patient prescribed a controlled substance at d/c from ED?: No Referrals: Clif Glasgow MD [Primary Care Provider] - 1-2 days Time of Disposition: 05:16
[2022-02-28 05:37] VITALS: BP 122/88; PULSE 90; RESP 16
== END 2022-02-28 05:36 | disposition home or self-care (01) ==
LOC: EC 01:03
DX: R22.42 Localized swelling, mass and lump, left lower limb (principal); I48.91 Unspecified atrial fibrillation; J44.9 Chronic obstructive pulmonary disease, unspecified; E78.5 Hyperlipidemia, unspecified; I10 Essential (primary) hypertension; F41.9 Anxiety disorder, unspecified; F31.9 Bipolar disorder, unspecified; F17.200 Nicotine dependence, unspecified, uncomplicated; F12.90 Cannabis use, unspecified, uncomplicated; Z88.6 Allergy status to analgesic agent; Z88.8 Allergy status to other drugs, medicaments and biological substances; Z79.82 Long term (current) use of aspirin; Z79.899 Other long term (current) drug therapy
CPT/HCPCS: 81001; 99283

== ENCOUNTER 2022-03-01 00:20 | Emergency (ER) | payer OTHER ==
[2022-03-01 00:56] VITALS: BP 198/99; PULSE 73; RESP 19; TEMP 98
[2022-03-01 01:02] LABS: Basophils # (A) 0.1 k/uL (0-0.2); Basophils % (A) 1 %; Eosinophils # (A) 0.2 k/uL (0-0.7); Eosinophils % (A) 3 %; HCT 42.5 % (39.0-53.0); HGB 15.3 gm/dL (13.0-17.5); Lymphocytes # (A) 1.4 k/uL (1.0-4.8); Lymphocytes % (A) 20 %; MCH 33.3 pg (25.0-35.0); MCV 92.5 fL (80.0-100.0); Mean Platelet Volume 9.2; Monocytes # (A) 0.7 k/uL (0-1.0); Monocytes % (A) 9 %; Neutrophils # (A) 4.6 k/uL (1.3-7.7); Neutrophils % (A) 64 %; Platelet Count 175 k/uL (150-450); RBC 4.59 m/uL (4.30-5.90); RDW 13.8 % (11.5-15.5); WBC 7.1 k/uL (3.8-10.6)
--- NOTE | 2022-03-01 01:02 | XR ---
EXAMINATION TYPE: XR chest 2V DATE OF EXAM: 03/01/2022 COMPARISON: 02/21/2022 HISTORY: Chest pain TECHNIQUE: FINDINGS: Heart is normal. Lungs are clear. Diaphragm is normal. Bony thorax is intact. There are no hilar masses. IMPRESSION: No active cardiopulmonary disease. Normal heart. No change.
[2022-03-01 01:08] LABS: Partial Thromboplastin Time 24.5 sec (22.0-30.0); Prothrombin Time 11.3 sec (9.0-12.0)
[2022-03-01 01:23] LABS: ALT 21 U/L (4-49); AST 39 U/L (17-59); African American GFR (CKD) >90 (>60 ml/min/1.73 sqM); Albumin 4.9 g/dL (3.5-5.0); Alkaline Phosphatase 82 U/L (38-126); Anion Gap 13 mmol/L; Blood Urea Nitrogen 13 mg/dL (9-20); Calcium 9.4 mg/dL (8.4-10.2); Carbon Dioxide 22 mmol/L (22-30); Chloride 104 mmol/L (98-107); Glucose 87 mg/dL (74-99); Magnesium 1.9 mg/dL (1.6-2.3); Non-African American GFR(CKD) >90 (>60 ml/min/1.73 sqM); Potassium 3.9 mmol/L (3.5-5.1); Sodium 139 mmol/L (137-145); Total Bilirubin 1.4 mg/dL (0.2-1.3); Total Protein 7.7 g/dL (6.3-8.2)
[2022-03-01] MEDS ORDERED: HYDROcodone/APAP 7.5-325MG 1 EACH TAB PO ONE (01:35)
--- NOTE | 2022-03-01 01:42 | ED ---
Chest Pain HPI - General Chief Complaint: Chest Pain Stated Complaint: Chest Pain Time Seen by Provider: 03/01/22 01:35 Source: patient Mode of arrival: ambulatory - History of Present Illness Initial Comments: 51-year-old male with past medical history of A. fib, COPD, hypertension who presents to the emergency room for chest pain. Patient has been seen in the emergency room several times for chest pain. He did have a cardiac catheterization in 2018 at demonstrated normal coronaries. Patient is homeless. States he was outside in the cold air and he began having chest pain. Reports that he hasn't slept in 3 days and also hasn't eaten. Patient presents requesting food and a bed to sleep in. Denies ripping or tearing. Patient was back. Did not take any medications for the chest pain. No fevers, chills or cough. No other alleviating, precipitating or modifying factors - Related Data Home Medications Medication Instructions Recorded Confirmed Aspirin EC [Ecotrin Low Dose] 81 mg PO DAILY 05/23/21 12/25/21 Nitroglycerin Sl Tabs [Nitrostat] 0.4 mg SL Q5M PRN 06/28/21 12/25/21 Albuterol Sulfate [Proair Hfa] 2 puff INHALATION RT-QID PRN 10/14/21 12/25/21 Budesonide-Formot 160-4.5 Mcg 2 puff INHALATION RT-BID 10/14/21 12/25/21 [Symbicort 160-4.5 Mcg Inhaler] Metoprolol Succinate (ER) [Toprol 100 mg PO DAILY 10/14/21 12/25/21 XL] hydrALAZINE HCL [Apresoline] 100 mg PO TID 10/14/21 12/25/21 HYDROcodone/APAP 10-325MG [[place] 1 tab PO QID 11/20/21 12/25/21 10-325] cloNIDine HCL [Catapres] 0.3 mg PO TID 11/20/21 12/25/21 lisinopriL 40 mg PO DAILY 11/20/21 12/25/21 Sacubitril/Valsartan [Entresto 24 1 tab PO BID 12/21/21 12/25/21 mg-26 mg Tablet] Previous Rx's Medication Instructions Recorded Rivaroxaban [Xarelto] 20 mg PO W/SUPPER 30 Days #30 tab 07/31/21 Furosemide [Lasix] 40 mg PO BID@0900,1600 30 Days #60 08/04/21 tab metOLazone [Zaroxolyn] 5 mg PO DAILY #10 tab 10/17/21 Potassium Chloride ER [K-Dur 20] 20 meq PO BID #60 tab 11/23/21 Spironolactone [Aldactone] 25 mg PO DAILY #30 tab 11/23/21 Allergies Allergy/AdvReac Type Severity Reaction Status Date / Time ibuprofen [From Motrin] AdvReac Nausea & Verified 03/01/22 00:56 Vomiting simvastatin [From Zocor] AdvReac Dizziness Verified 03/01/22 00:56 Review of Systems ROS Statement: Those systems with pertinent positive or pertinent negative responses have been documented in the HPI. ROS Other: All systems not noted in ROS Statement are negative. EKG Findings - EKG Comments: EKG Findings:: EKG demonstrates rate 71. SC interval 147. QRS 95. QTC of 445. No acute ST segment elevations or depressions Past Medical History Past Medical History: Atrial Fibrillation, COPD, Hyperlipidemia, Hypertension, Pneumonia Additional Past Medical History / Comment(s): Other HX; Costochondritis, chronic pain, chronic low back pain with bilateral sciatica, neuropathy bilateral hands/feet, migraines, kidney stones, past partial small bowel obstruction. HTN the last 10 yrs Stopped taking meds 5 yrs ago. 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 Past Anesthesia/Blood Transfusion Reactions: No Reported Reaction Past Psychological History: Anxiety, Bipolar, Depression, Schizophrenia Smoking Status: Current every day smoker Past Alcohol Use History: None Reported Past Drug Use History: Marijuana, Prescription Drug Abuse - Past Family History Father Family Medical History: Myocardial Infarction ([place]) Additional Family Medical History / Comment(s): mi at age 35, still living Mother Family Medical History: Myocardial Infarction ([place]) Additional Family Medical History / Comment(s): Mother has had at least one [place]- pt unsure at what age. He has not had much contact with his mother since he was 17 yrs old. General Exam General appearance: alert, in no apparent distress Head exam: Present: atraumatic, normocephalic, normal inspection Eye exam: Present: normal appearance, PERRL, EOMI. Absent: scleral icterus, conjunctival injection, periorbital swelling ENT exam: Present: normal exam, mucous membranes moist Neck exam: Present: normal inspection. Absent: tenderness, meningismus, lymphadenopathy Respiratory exam: Present: normal lung sounds bilaterally. Absent: respiratory distress, wheezes, rales, rhonchi, stridor Cardiovascular Exam: Present: regular rate, normal rhythm, normal heart sounds. Absent: systolic murmur, diastolic murmur, rubs, gallop, clicks GI/Abdominal exam: Present: soft, normal bowel sounds. Absent: distended, tenderness, guarding, rebound, rigid Extremities exam: Present: normal inspection, full ROM, normal capillary refill. Absent: tenderness, pedal edema, joint swelling, calf tenderness Back exam: Present: normal inspection Neurological exam: Present: alert, oriented X3, CN II-XII intact Psychiatric exam: Present: normal affect, normal mood Skin exam: Present: warm, dry, intact, normal color. Absent: rash Course Vital Signs 03/01/22 00:53 Temperature 98 F Pulse Rate 73 Respiratory 19 Rate Blood Pressure 198/99 O2 Sat by Pulse 100 Oximetry Chest Pain MDM - MDM Upon arrival patient is placed into room 7. Thorough history and physical exam was performed. IV access is established and laboratory studies were conducted. All EKG is performed. Patient placed on continuous pulse ox and cardiac monitoring. Laboratory studies are reviewed. Chest x-ray performed. Patient given a [place] for pain. Patient observed without worsening pain. Will be discharged home and instructed follow up his primary care doctor to 4 days and return for any new or worsening symptoms. Patient agreeable and discharged home in stable condition Disposition Clinical Impression: Chest pain Disposition: HOME SELF-CARE Condition: Stable Instructions (If sedation given, give patient instructions): Chest Pain (ED) Additional Instructions: Please follow-up with your primary care doctor in 2-4 days and return for any new or worsening symptoms Is patient prescribed a controlled substance at d/c from ED?: No Referrals: Clif Glasgow MD [Primary Care Provider] - 1-2 days Time of Disposition: 01:39
== END 2022-03-01 02:00 | disposition home or self-care (01) ==
LOC: EC 00:20
DX: R07.9 Chest pain, unspecified (principal); I10 Essential (primary) hypertension; F41.9 Anxiety disorder, unspecified; F32.A Depression, unspecified; F17.200 Nicotine dependence, unspecified, uncomplicated; F12.90 Cannabis use, unspecified, uncomplicated; I48.91 Unspecified atrial fibrillation; J44.9 Chronic obstructive pulmonary disease, unspecified; E78.5 Hyperlipidemia, unspecified; Z88.8 Allergy status to other drugs, medicaments and biological substances; Z88.6 Allergy status to analgesic agent
CPT/HCPCS: 36415; 71046; 80053; 83735; 84484; 85025; 85610; 85730; 93005; 99285

== ENCOUNTER 2022-03-04 01:41 | Emergency (ER) | payer OTHER ==
[2022-03-04 02:01] VITALS: BP 159/88; PULSE 76; RESP 18; TEMP 97.9
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
--- NOTE | 2022-03-04 02:52 | XR ---
EXAMINATION TYPE: XR lumbar spine 2 or 3V DATE OF EXAM: 03/04/2022 COMPARISON: 12/23/2017 HISTORY: Back pain TECHNIQUE: 3 views FINDINGS: The lumbar vertebrae have normal alignment. Posterior elements are intact. No compression f racture. Sacroiliac joints are intact there is some mild spurring at L4-5. IMPRESSION: Mild spurring at L4-5 which is increased compared to the old exam. No fracture.
--- NOTE | 2022-03-04 02:53 | XR ---
EXAMINATION TYPE: XR ankle complete LT DATE OF EXAM: 03/04/2022 COMPARISON: NONE HISTORY: Pain TECHNIQUE: 2 view FINDINGS: Ankle mortise is anatomic. I see no fracture nor dislocation. There is a small area of luce ncy in the medial dome of the talus. There is an Achilles calcaneal spur. IMPRESSION: Calcaneal spurring. Small degenerative cyst in the medial dome of the talus. No fracture.
--- NOTE | 2022-03-04 02:55 | XR ---
EXAMINATION TYPE: XR foot limited LT DATE OF EXAM: 03/04/2022 COMPARISON: NONE HISTORY: Pain TECHNIQUE: 2 views FINDINGS: There is an Achilles calcaneal spur. I see no fracture nor dislocation. There is minor spur ring at the first MP joint there are no erosions. There is no subluxation. 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 IMPRESSION: There are some degenerative changes. No fracture seen.
== END 2022-03-04 03:18 | disposition home or self-care (01) ==
LOC: EC 01:41
DX: M25.572 Pain in left ankle and joints of left foot (principal); I48.91 Unspecified atrial fibrillation; J44.9 Chronic obstructive pulmonary disease, unspecified; E78.5 Hyperlipidemia, unspecified; I10 Essential (primary) hypertension; F31.9 Bipolar disorder, unspecified; F41.9 Anxiety disorder, unspecified; F17.200 Nicotine dependence, unspecified, uncomplicated; F12.90 Cannabis use, unspecified, uncomplicated; Z88.6 Allergy status to analgesic agent; Z88.8 Allergy status to other drugs, medicaments and biological substances; Z79.82 Long term (current) use of aspirin; V89.2XXA Person injured in unspecified motor-vehicle accident, traffic, initial encounter
CPT/HCPCS: 72100; 99284

== ENCOUNTER 2022-03-06 00:06 | Emergency (ER) | payer OTHER ==
[2022-03-06 00:26] VITALS: RESP 18
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
[2022-03-06] MEDS ORDERED: HYDROmorphone 1 MG/ML 1 ML SYRINGE IM STA (05:27)
[2022-03-06 07:19] VITALS: BP 162/101; PULSE 59; TEMP 97.7
== END 2022-03-06 07:40 | disposition home or self-care (01) ==
LOC: EC 00:06
DX: M94.0 Chondrocostal junction syndrome [Tietze] (principal); I10 Essential (primary) hypertension; I48.91 Unspecified atrial fibrillation; J44.1 Chronic obstructive pulmonary disease with (acute) exacerbation; E78.5 Hyperlipidemia, unspecified; F17.200 Nicotine dependence, unspecified, uncomplicated; F12.90 Cannabis use, unspecified, uncomplicated; Z79.51 Long term (current) use of inhaled steroids; Z79.811 Long term (current) use of aromatase inhibitors; Z79.899 Other long term (current) drug therapy; Z88.6 Allergy status to analgesic agent; Z88.8 Allergy status to other drugs, medicaments and biological substances
CPT/HCPCS: 99284; 96372; J1170; 93005

== ENCOUNTER 2022-03-18 02:17 | Emergency (ER) | payer OTHER ==
[2022-03-18 02:28] VITALS: TEMP 97.9
[2022-03-18 04:42] VITALS: RESP 18
[2022-03-18 04:56] LABS: Basophils # (A) 0.1 k/uL (0-0.2); Basophils % (A) 1 %; Eosinophils # (A) 0.2 k/uL (0-0.7); Eosinophils % (A) 3 %; HCT 42.4 % (39.0-53.0); HGB 15.2 gm/dL (13.0-17.5); Lymphocytes % (A) 12 %; MCH 33.3 pg (25.0-35.0); MCV 92.5 fL (80.0-100.0); Mean Platelet Volume 8.9; Monocytes # (A) 0.5 k/uL (0-1.0); Monocytes % (A) 6 %; Neutrophils # (A) 6.2 k/uL (1.3-7.7); Neutrophils % (A) 77 %; Platelet Count 196 k/uL (150-450); RBC 4.58 m/uL (4.30-5.90); RDW 12.8 % (11.5-15.5)
--- NOTE | 2022-03-18 05:00 | XR ---
EXAMINATION TYPE: XR chest 2V DATE OF EXAM: 03/18/2022 COMPARISON: 03/01/2022 HISTORY: Chest pain TECHNIQUE: 2 views FINDINGS: Heart is normal. Lungs are clear. Diaphragm is normal. Bony thorax is intact. IMPRESSION: Normal chest. No change.
[2022-03-18 05:06] LABS: ALT 21 U/L (4-49); AST 35 U/L (17-59); African American GFR (CKD) >90 (>60 ml/min/1.73 sqM); Albumin 4.4 g/dL (3.5-5.0); Alkaline Phosphatase 90 U/L (38-126); Amylase 66 U/L (30-110); Anion Gap 8 mmol/L; Blood Urea Nitrogen 11 mg/dL (9-20); Calcium 8.8 mg/dL (8.4-10.2); Carbon Dioxide 24 mmol/L (22-30); Chloride 105 mmol/L (98-107); Glucose 103 mg/dL (74-99); Lipase 69 U/L (23-300); Non-African American GFR(CKD) >90 (>60 ml/min/1.73 sqM); Potassium 3.6 mmol/L (3.5-5.1); Sodium 137 mmol/L (137-145); Total Bilirubin 0.5 mg/dL (0.2-1.3); Total Protein 7.2 g/dL (6.3-8.2)
[2022-03-18] MEDS ORDERED: HYDROcodone/APAP 5-325MG 1 EACH TAB PO STA (06:07)
--- NOTE | 2022-03-18 06:48 | ED ---
General Adult HPI - General Chief complaint: Nausea/Vomiting/Diarrhea Stated complaint: Chest pain Time Seen by Provider: 03/18/22 03:51 Source: patient Mode of arrival: ambulatory Limitations: no limitations - History of Present Illness Initial comments: Patient's 51-year-old man who complains of having 1 day of feeling dizzy as well as having nausea and vomiting. Patient denies any inciting factors. No head or abdominal pain. No change in bowel movements. -: hour(s) Severity scale (1-10): 0 Consistency: intermittent Improves with: none Worsens with: none Associated Symptoms: nausea/vomiting Treatments Prior to Arrival: none - Related Data Home Medications Medication Instructions Recorded Confirmed Aspirin EC [Ecotrin Low Dose] 81 mg PO DAILY 05/23/21 12/25/21 Nitroglycerin Sl Tabs [Nitrostat] 0.4 mg SL Q5M PRN 06/28/21 12/25/21 Albuterol Sulfate [Proair Hfa] 2 puff INHALATION RT-QID PRN 10/14/21 12/25/21 Budesonide-Formot 160-4.5 Mcg 2 puff INHALATION RT-BID 10/14/21 12/25/21 [Symbicort 160-4.5 Mcg Inhaler] Metoprolol Succinate (ER) [Toprol 100 mg PO DAILY 10/14/21 12/25/21 XL] hydrALAZINE HCL [Apresoline] 100 mg PO TID 10/14/21 12/25/21 HYDROcodone/APAP 10-325MG [[place] 1 tab PO QID 11/20/21 12/25/21 10-325] cloNIDine HCL [Catapres] 0.3 mg PO TID 11/20/21 12/25/21 lisinopriL 40 mg PO DAILY 11/20/21 12/25/21 Sacubitril/Valsartan [Entresto 24 1 tab PO BID 12/21/21 12/25/21 mg-26 mg Tablet] Previous Rx's Medication Instructions Recorded Rivaroxaban [Xarelto] 20 mg PO W/SUPPER 30 Days #30 tab 07/31/21 Furosemide [Lasix] 40 mg PO BID@0900,1600 30 Days #60 08/04/21 tab metOLazone [Zaroxolyn] 5 mg PO DAILY #10 tab 10/17/21 Potassium Chloride ER [K-Dur 20] 20 meq PO BID #60 tab 11/23/21 Spironolactone [Aldactone] 25 mg PO DAILY #30 tab 11/23/21 Allergies Allergy/AdvReac Type Severity Reaction Status Date / Time ibuprofen [From Motrin] AdvReac Nausea & Verified 03/27/22 03:47 Vomiting simvastatin [From Zocor] AdvReac Dizziness Verified 03/27/22 03:47 Review of Systems ROS Statement: Those systems with pertinent positive or pertinent negative responses have been documented in the HPI. ROS Other: All systems not noted in ROS Statement are negative. Constitutional: Denies: fever, chills, weakness Eyes: Denies: vision change Respiratory: Denies: cough, dyspnea Cardiovascular: Denies: chest pain, palpitations, edema Gastrointestinal: Reports: nausea, vomiting. Denies: abdominal pain, diarrhea, constipation, hematemesis Genitourinary: Denies: dysuria, hematuria Musculoskeletal: Denies: back pain Skin: Denies: rash Neurological: Denies: headache, weakness Past Medical History Past Medical History: Atrial Fibrillation, COPD, Hyperlipidemia, Hypertension, Pneumonia Additional Past Medical History / Comment(s): Other HX; Costochondritis, chronic pain, chronic low back pain with bilateral sciatica, neuropathy bilateral hands/feet, migraines, kidney stones, past partial small bowel obstruction. HTN the last 10 yrs Stopped taking meds 5 yrs ago. 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 Past Anesthesia/Blood Transfusion Reactions: No Reported Reaction Past Psychological History: Anxiety, Bipolar, Depression, Schizophrenia Smoking Status: Current every day smoker Past Alcohol Use History: None Reported Past Drug Use History: Marijuana, Prescription Drug Abuse - Past Family History Father Family Medical History: Myocardial Infarction ([place]) Additional Family Medical History / Comment(s): mi at age 35, still living Mother Family Medical History: Myocardial Infarction ([place]) Additional Family Medical History / Comment(s): Mother has had at least one [place]- pt unsure at what age. He has not had much contact with his mother since he was 17 yrs old. General Exam Limitations: no limitations General appearance: alert, in no apparent distress Head exam: Present: atraumatic, normocephalic Eye exam: Present: normal appearance. Absent: scleral icterus, conjunctival injection Neck exam: Present: normal inspection Respiratory exam: Present: normal lung sounds bilaterally. Absent: respiratory distress, wheezes, rales, rhonchi, stridor Cardiovascular Exam: Present: regular rate, normal rhythm, normal heart sounds. Absent: systolic murmur, diastolic murmur, rubs, gallop GI/Abdominal exam: Present: soft. Absent: distended, tenderness, guarding, rebound, rigid, mass Extremities exam: Present: normal inspection, normal capillary refill. Absent: pedal edema, calf tenderness Back exam: Present: normal inspection. Absent: CVA tenderness (R), CVA tender ness (L) Neurological exam: Present: alert Skin exam: Present: warm, dry, intact, normal color. Absent: rash Course Vital Signs 03/18/22 03/18/22 03/18/22 02:25 04:41 06:25 Temperature 97.9 F Pulse Rate 73 68 60 Respiratory 16 18 18 Rate Blood Pressure 178/102 161/105 171/99 O2 Sat by Pulse 100 97 98 Oximetry 03/18/22 07:52 Temperature Pulse Rate 80 Respiratory 18 Rate Blood Pressure 126/78 O2 Sat by Pulse 99 Oximetry EKG Findings - EKG Results: EKG: interpreted by ERMD, sinus rhythm (Rate 75 bpm), normal axis - Blocks, [place], Hypertrophy, ST Abn: Chamber hypertrophy or enlargement: left ventricular hypertrophy or enlargement (LVE) Medical Decision Making - Lab Data Result diagrams: 03/18/22 04:41 03/18/22 04:41 Lab Results 03/18/22 03/18/22 03/18/22 Range/Units 04:41 04:41 04:41 WBC 8.0 (3.8-10.6) k/uL RBC 4.58 (4.30-5.90) m/uL Hgb 15.2 (13.0-17.5) gm/dL Hct 42.4 (39.0-53.0) % MCV 92.5 (80.0-100.0) fL MCH 33.3 (25.0-35.0) pg MCHC 36.0 (31.0-37.0) g/dL RDW 12.8 (11.5-15.5) % Plt Count 196 (150-450) k/uL MPV 8.9 Neutrophils % 77 % Lymphocytes % 12 % Monocytes % 6 % Eosinophils % 3 % Basophils % 1 % Neutrophils # 6.2 (1.3-7.7) k/uL Lymphocytes # 1.0 (1.0-4.8) k/uL Monocytes # 0.5 (0-1.0) k/uL Eosinophils # 0.2 (0-0.7) k/uL Basophils # 0.1 (0-0.2) k/uL Sodium 137 (137-145) mmol/L Potassium 3.6 (3.5-5.1) mmol/L Chloride 105 (98-107) mmol/L Carbon Dioxide 24 (22-30) mmol/L Anion Gap 8 mmol/L BUN 11 (9-20) mg/dL Creatinine 0.60 L (0.66-1.25) mg/dL Est GFR (CKD-EPI)AfAm >90 (>60 ml/min/1.73 sqM) Est GFR (CKD-EPI)NonAf >90 (>60 ml/min/1.73 sqM) Glucose 103 H (74-99) mg/dL Calcium 8.8 (8.4-10.2) mg/dL Total Bilirubin 0.5 (0.2-1.3) mg/dL AST 35 (17-59) U/L ALT 21 (4-49) U/L Alkaline Phosphatase 90 (38-126) U/L Troponin I <0.012 (0.000-0.034) ng/mL Total Protein 7.2 (6.3-8.2) g/dL Albumin 4.4 (3.5-5.0) g/dL Amylase 66 (30-110) U/L Lipase 69 (23-300) U/L Urine Color Urine Appearance (Clear) Urine pH (5.0-8.0) Ur Specific [place] (1.001-1.035) Urine Protein (Negative) Urine Glucose (UA) (Negative) Urine Ketones (Negative) Urine Blood (Negative) Urine Nitrite (Negative) Urine Bilirubin (Negative) Urine Urobilinogen (<2.0) mg/dL Ur Leukocyte Esterase (Negative) 03/18/22 Range/Units 06:59 WBC (3.8-10.6) k/uL RBC (4.30-5.90) m/uL Hgb (13.0-17.5) gm/dL Hct (39.0-53.0) % MCV (80.0-100.0) fL MCH (25.0-35.0) pg MCHC (31.0-37.0) g/dL RDW (11.5-15.5) % Plt Count (150-450) k/uL MPV Neutrophils % % Lymphocytes % % Monocytes % % Eosinophils % % Basophils % % Neutrophils # (1.3-7.7) k/uL Lymphocytes # (1.0-4.8) k/uL Monocytes # (0-1.0) k/uL Eosinophils # (0-0.7) k/uL Basophils # (0-0.2) k/uL Sodium (137-145) mmol/L Potassium (3.5-5.1) mmol/L Chloride (98-107) mmol/L Carbon Dioxide (22-30) mmol/L Anion Gap mmol/L BUN (9-20) mg/dL Creatinine (0.66-1.25) mg/dL Est GFR (CKD-EPI)AfAm (>60 ml/min/1.73 sqM) Est GFR (CKD-EPI)NonAf (>60 ml/min/1.73 sqM) Glucose (74-99) mg/dL Calcium (8.4-10.2) mg/dL Total Bilirubin (0.2-1.3) mg/dL AST (17-59) U/L ALT (4-49) U/L Alkaline Phosphatase (38-126) U/L Troponin I (0.000-0.034) ng/mL Total Protein (6.3-8.2) g/dL Albumin (3.5-5.0) g/dL Amylase (30-110) U/L Lipase (23-300) U/L Urine Color Light Yellow Urine Appearance Clear (Clear) Urine pH 7.0 (5.0-8.0) Ur Specific [place] 1.009 (1.001-1.035) Urine Protein Negative (Negative) Urine Glucose (UA) Negative (Negative) Urine Ketones Negative (Negative) Urine Blood Negative (Negative) Urine Nitrite Negative (Negative) Urine Bilirubin Negative (Negative) Urine Urobilinogen <2.0 (<2.0) mg/dL Ur Leukocyte Esterase Negative (Negative) Disposition Clinical Impression: Vomiting Disposition: HOME SELF-CARE Condition: Good Instructions (If sedation given, give patient instructions): Acute Nausea and Vomiting (ED) Is patient prescribed a controlled substance at d/c from ED?: No Referrals: Clif Glasgow MD [Primary Care Provider] - 1-2 days
[2022-03-18 07:28] LABS: Appearance,Urine Clear (Clear); Bilirubin,Urine Negative (Negative); Blood,Urine Negative (Negative); Color,Urine Light Yellow; Glucose,Urine (UA) Negative (Negative); Ketones,Urine Negative (Negative); Leukocyte Esterase,Urine Negative (Negative); Nitrite,Urine Negative (Negative); Protein,Urine Negative (Negative); Specific Gravity,Urine 1.009 (1.001-1.035); Urobilinogen,Urine <2.0 mg/dL (<2.0)
[2022-03-18 07:54] VITALS: BP 126/78; PULSE 80
== END 2022-03-18 08:06 | disposition home or self-care (01) ==
LOC: EC 02:17
DX: R11.2 Nausea with vomiting, unspecified (principal); F12.90 Cannabis use, unspecified, uncomplicated; I48.91 Unspecified atrial fibrillation; J44.9 Chronic obstructive pulmonary disease, unspecified; I10 Essential (primary) hypertension; F17.200 Nicotine dependence, unspecified, uncomplicated; F32.A Depression, unspecified; F41.9 Anxiety disorder, unspecified; E78.5 Hyperlipidemia, unspecified; Z88.6 Allergy status to analgesic agent; Z88.8 Allergy status to other drugs, medicaments and biological substances; Z79.82 Long term (current) use of aspirin; Z79.899 Other long term (current) drug therapy
CPT/HCPCS: 36415; 71046; 80053; 81003; 82150; 83690; 84484; 85025; 93005; 99285

== ENCOUNTER 2022-03-22 04:34 | Emergency (ER) | payer OTHER ==
[2022-03-22 04:56] VITALS: BP 162/99; PULSE 96; RESP 17; TEMP 98.2
[2022-03-22] MEDS ORDERED: HYDROmorphone 2 MG TAB PO STA (04:59)
--- NOTE | 2022-03-22 05:00 | ED ---
Chest Pain HPI - General Chief Complaint: Chest Pain Stated Complaint: Chest Pain Time Seen by Provider: 03/22/22 04:35 Source: patient, RN notes reviewed, old records reviewed Mode of arrival: ambulatory Limitations: no limitations - History of Present Illness Initial Comments: This is a 51-year-old male DF for evaluation patient Dese for evaluation of chest pain no Emergency Department is a local homeless patient. Patient has no change in symptoms from prior MD Complaint: chest pain -: unknown Onset: during rest, during exertion Pain Location: substernal Pain Radiation: none Severity: moderate Severity scale (1-10): 4 Quality: tightness Consistency: intermittent Improves With: nothing Worsens With: nothing Other Symptoms: cough Treatments Prior to Arrival: none - Related Data Home Medications Medication Instructions Recorded Confirmed Aspirin EC [Ecotrin Low Dose] 81 mg PO DAILY 05/23/21 12/25/21 Nitroglycerin Sl Tabs [Nitrostat] 0.4 mg SL Q5M PRN 06/28/21 12/25/21 Albuterol Sulfate [Proair Hfa] 2 puff INHALATION RT-QID PRN 10/14/21 12/25/21 Budesonide-Formot 160-4.5 Mcg 2 puff INHALATION RT-BID 10/14/21 12/25/21 [Symbicort 160-4.5 Mcg Inhaler] Metoprolol Succinate (ER) [Toprol 100 mg PO DAILY 10/14/21 12/25/21 XL] hydrALAZINE HCL [Apresoline] 100 mg PO TID 10/14/21 12/25/21 HYDROcodone/APAP 10-325MG [[place] 1 tab PO QID 11/20/21 12/25/21 10-325] cloNIDine HCL [Catapres] 0.3 mg PO TID 11/20/21 12/25/21 lisinopriL 40 mg PO DAILY 11/20/21 12/25/21 Sacubitril/Valsartan [Entresto 24 1 tab PO BID 12/21/21 12/25/21 mg-26 mg Tablet] Previous Rx's Medication Instructions Recorded Rivaroxaban [Xarelto] 20 mg PO W/SUPPER 30 Days #30 tab 07/31/21 Furosemide [Lasix] 40 mg PO BID@0900,1600 30 Days #60 08/04/21 tab metOLazone [Zaroxolyn] 5 mg PO DAILY #10 tab 10/17/21 Potassium Chloride ER [K-Dur 20] 20 meq PO BID #60 tab 11/23/21 Spironolactone [Aldactone] 25 mg PO DAILY #30 tab 11/23/21 Cephalexin [Keflex] 500 mg PO Q6HR 7 Days #28 cap 03/29/22 Allergies Allergy/AdvReac Type Severity Reaction Status Date / Time ibuprofen [From Motrin] AdvReac Nausea & Verified 04/04/22 23:19 Vomiting simvastatin [From Zocor] AdvReac Dizziness Verified 04/04/22 23:19 Review of Systems ROS Statement: Those systems with pertinent positive or pertinent negative responses have been documented in the HPI. ROS Other: All systems not noted in ROS Statement are negative. Past Medical History Past Medical History: Atrial Fibrillation, COPD, Hyperlipidemia, Hypertension, Pneumonia Additional Past Medical History / Comment(s): Other HX; Costochondritis, chronic pain, chronic low back pain with bilateral sciatica, neuropathy bilateral hands/feet, migraines, kidney stones, past partial small bowel obstruction. HTN the last 10 yrs Stopped taking meds 5 yrs ago. 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 Past Anesthesia/Blood Transfusion Reactions: No Reported Reaction Past Psychological History: Anxiety, Bipolar, Depression, Schizophrenia Smoking Status: Current every day smoker Past Alcohol Use History: None Reported Past Drug Use History: Marijuana, Prescription Drug Abuse - Past Family History Father Family Medical History: Myocardial Infarction ([place]) Additional Family Medical History / Comment(s): mi at age 35, still living Mother Family Medical History: Myocardial Infarction ([place]) Additional Family Medical History / Comment(s): Mother has had at least one [place]- pt unsure at what age. He has not had much contact with his mother since he was 17 yrs old. General Exam Limitations: no limitations General appearance: alert, in no apparent distress Head exam: Present: atraumatic, normocephalic, normal inspection Eye exam: Present: normal appearance, PERRL, EOMI. Absent: scleral icterus, conjunctival injection, periorbital swelling ENT exam: Present: normal exam, mucous membranes moist Neck exam: Present: normal inspection. Absent: tenderness, meningismus, lymphadenopathy Respiratory exam: Present: normal lung sounds bilaterally. Absent: respiratory distress, wheezes, rales, rhonchi, stridor Cardiovascular Exam: Present: regular rate, normal rhythm, normal heart sounds. Absent: systolic murmur, diastolic murmur, rubs, gallop, clicks GI/Abdominal exam: Present: soft, normal bowel sounds. Absent: distended, tenderness, guarding, rebound, rigid Extremities exam: Present: normal inspection, full ROM, normal capillary refill. Absent: tenderness, pedal edema, joint swelling, calf tenderness Back exam: Present: normal inspection Neurological exam: Present: alert, oriented X3, CN II-XII intact Psychiatric exam: Present: normal affect, normal mood Skin exam: Present: warm, dry, intact, normal color. Absent: rash Course Vital Signs 03/22/22 04:54 Temperature 98.2 F Pulse Rate 96 Respiratory 17 Rate Blood Pressure 162/99 O2 Sat by Pulse 97 Oximetry - Reevaluation(s) Reevaluation #1: 03/22/22 Medical records reviewed Patient symptoms improved here in the ER Patient informed of results and questions answered Chest Pain MDM - MDM 51 male DF for evaluation, patient given appears to stay overnight presenting with chest pain persistent no change patient can be discharged home Disposition Clinical Impression: Chest pain Disposition: HOME SELF-CARE Condition: Good Instructions (If sedation given, give patient instructions): Chest Pain (ED) Is patient prescribed a controlled substance at d/c from ED?: No Referrals: Clif Glasgow MD [Primary Care Provider] - 1-2 days Time of Disposition: 05:00
[2022-03-22] MEDS ORDERED: HYDROcodone/APAP 10-325MG 1 EACH TAB PO ONE (05:32)
== END 2022-03-22 05:44 | disposition home or self-care (01) ==
LOC: EC 04:34
DX: R07.9 Chest pain, unspecified (principal); I48.91 Unspecified atrial fibrillation; J44.9 Chronic obstructive pulmonary disease, unspecified; I10 Essential (primary) hypertension; F41.9 Anxiety disorder, unspecified; F31.9 Bipolar disorder, unspecified; F17.200 Nicotine dependence, unspecified, uncomplicated; F12.90 Cannabis use, unspecified, uncomplicated; Z88.6 Allergy status to analgesic agent; Z88.8 Allergy status to other drugs, medicaments and biological substances; Z79.82 Long term (current) use of aspirin; Z79.899 Other long term (current) drug therapy
CPT/HCPCS: 99284

== ENCOUNTER 2022-03-22 22:43 | Emergency (ER) | payer OTHER ==
[2022-03-22] MEDS ORDERED: HYDROmorphone 1 MG/ML 1 ML SYRINGE IM STA (22:52)
--- NOTE | 2022-03-22 22:52 | ED ---
Recheck HPI - General Stated Complaint: Chest pain Time Seen by Provider: 03/22/22 22:51 Source: RN notes reviewed, old records reviewed - History of Present Illness Initial Comments: There is a 51-year-old male DF for evaluation patient Dese for evaluation of chest pain. Patient well-known to our facility for evaluation of homelessness and multiple visits for multiple complaints. Patient presents today mainly due to needing a place MD Complaint: medication refill request -: minutes(s) Returns Today for: persistent/worsening pain related to initial visit Symptoms Since Prior Visit: worsening pain Context: ran out of medication Associated Symptoms: chest pain Treatments Prior to Arrival: Given Pain Meds on - Related Data Home Medications Medication Instructions Recorded Confirmed Aspirin EC [Ecotrin Low Dose] 81 mg PO DAILY 05/23/21 12/25/21 Nitroglycerin Sl Tabs [Nitrostat] 0.4 mg SL Q5M PRN 06/28/21 12/25/21 Albuterol Sulfate [Proair Hfa] 2 puff INHALATION RT-QID PRN 10/14/21 12/25/21 Budesonide-Formot 160-4.5 Mcg 2 puff INHALATION RT-BID 10/14/21 12/25/21 [Symbicort 160-4.5 Mcg Inhaler] Metoprolol Succinate (ER) [Toprol 100 mg PO DAILY 10/14/21 12/25/21 XL] hydrALAZINE HCL [Apresoline] 100 mg PO TID 10/14/21 12/25/21 HYDROcodone/APAP 10-325MG [[place] 1 tab PO QID 11/20/21 12/25/21 10-325] cloNIDine HCL [Catapres] 0.3 mg PO TID 11/20/21 12/25/21 lisinopriL 40 mg PO DAILY 11/20/21 12/25/21 Sacubitril/Valsartan [Entresto 24 1 tab PO BID 12/21/21 12/25/21 mg-26 mg Tablet] Previous Rx's Medication Instructions Recorded Rivaroxaban [Xarelto] 20 mg PO W/SUPPER 30 Days #30 tab 07/31/21 Furosemide [Lasix] 40 mg PO BID@0900,1600 30 Days #60 08/04/21 tab metOLazone [Zaroxolyn] 5 mg PO DAILY #10 tab 10/17/21 Potassium Chloride ER [K-Dur 20] 20 meq PO BID #60 tab 11/23/21 Spironolactone [Aldactone] 25 mg PO DAILY #30 tab 11/23/21 Cephalexin [Keflex] 500 mg PO Q6HR 7 Days #28 cap 03/29/22 Allergies Allergy/AdvReac Type Severity Reaction Status Date / Time ibuprofen [From Motrin] AdvReac Nausea & Verified 04/04/22 23:19 Vomiting simvastatin [From Zocor] AdvReac Dizziness Verified 04/04/22 23:19 Review of Systems ROS Statement: Those systems with pertinent positive or pertinent negative responses have been documented in the HPI. ROS Other: All systems not noted in ROS Statement are negative. Past Medical History Past Medical History: Atrial Fibrillation, COPD, Hyperlipidemia, Hypertension, Pneumonia Additional Past Medical History / Comment(s): Other HX; Costochondritis, chronic pain, chronic low back pain with bilateral sciatica, neuropathy bilateral hands/feet, migraines, kidney stones, past partial small bowel obstruction. HTN the last 10 yrs Stopped taking meds 5 yrs ago. 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 Past Anesthesia/Blood Transfusion Reactions: No Reported Reaction Past Psychological History: Anxiety, Bipolar, Depression, Schizophrenia Smoking Status: Current every day smoker Past Alcohol Use History: None Reported Past Drug Use History: Marijuana, Prescription Drug Abuse - Past Family History Father Family Medical History: Myocardial Infarction ([place]) Additional Family Medical History / Comment(s): mi at age 35, still living Mother Family Medical History: Myocardial Infarction ([place]) Additional Family Medical History / Comment(s): Mother has had at least one [place]- pt unsure at what age. He has not had much contact with his mother since he was 17 yrs old. General Exam General appearance: alert, in no apparent distress Head exam: Present: atraumatic, normocephalic, normal inspection Eye exam: Present: normal appearance, PERRL, EOMI. Absent: scleral icterus, conjunctival injection, periorbital swelling ENT exam: Present: normal exam, mucous membranes moist Neck exam: Present: normal inspection. Absent: tenderness, meningismus, lymphadenopathy Respiratory exam: Present: normal lung sounds bilaterally. Absent: respiratory distress, wheezes, rales, rhonchi, stridor Cardiovascular Exam: Present: regular rate, normal rhythm, normal heart sounds. Absent: systolic murmur, diastolic murmur, rubs, gallop, clicks GI/Abdominal exam: Present: soft, normal bowel sounds. Absent: distended, tenderness, guarding, rebound, rigid Extremities exam: Present: normal inspection, full ROM, normal capillary refill. Absent: tenderness, pedal edema, joint swelling, calf tenderness Back exam: Present: normal inspection Neurological exam: Present: alert, oriented X3, CN II-XII intact Psychiatric exam: Present: normal affect, normal mood Skin exam: Present: warm, dry, intact, normal color. Absent: rash Course Vital Signs 03/22/22 22:55 Temperature 98.1 F Pulse Rate 71 Respiratory 15 Rate Blood Pressure 137/86 O2 Sat by Pulse 99 Oximetry - Reevaluation(s) Reevaluation #1: 03/22/22 Medical records reviewed Patient symptoms improved here in the ER Patient informed of results and questions answered Medical Decision Making - Medical Decision Making 51 male to the emergency department for evaluation patient presenting with chest pain today. No distress resting comfortably patient can be discharged home Disposition Clinical Impression: Chest pain Disposition: HOME SELF-CARE Condition: Good Instructions (If sedation given, give patient instructions): Chest Pain (ED) Is patient prescribed a controlled substance at d/c from ED?: No Referrals: Clif Glasgow MD [Primary Care Provider] - 1-2 days Time of Disposition: 23:55
[2022-03-22 22:59] VITALS: BP 137/86; PULSE 71; RESP 15; TEMP 98.1
== END 2022-03-23 00:04 | disposition home or self-care (01) ==
LOC: EC 22:43
DX: R07.9 Chest pain, unspecified (principal); I48.91 Unspecified atrial fibrillation; J44.9 Chronic obstructive pulmonary disease, unspecified; I10 Essential (primary) hypertension; F41.9 Anxiety disorder, unspecified; F31.9 Bipolar disorder, unspecified; F17.200 Nicotine dependence, unspecified, uncomplicated; F12.90 Cannabis use, unspecified, uncomplicated; Z79.82 Long term (current) use of aspirin; Z79.899 Other long term (current) drug therapy; Z88.6 Allergy status to analgesic agent; Z88.8 Allergy status to other drugs, medicaments and biological substances; Z59.00 Homelessness unspecified
CPT/HCPCS: 99285; 96372; J1170

== ENCOUNTER 2022-03-27 03:45 | Emergency (ER) | payer OTHER ==
[2022-03-27 03:51] VITALS: BP 162/98; RESP 18; TEMP 97.6
--- NOTE | 2022-03-27 04:11 | ED ---
Chest Pain HPI - General Chief Complaint: Chest Pain Stated Complaint: Chest pain Time Seen by Provider: 03/27/22 04:08 Source: patient, RN notes reviewed, old records reviewed Mode of arrival: ambulatory Limitations: no limitations - History of Present Illness Initial Comments: This is a 51-year-old male DF for evaluation of chest pain patient has a history of chest pain no prior history of NH. Patient comes in is known homeless well- known to the emergency department. In no distress. Patient is asking for sandwich in the place to stay as is very cold outside tonight. Patient has no change in symptoms. No shortness of breath MD Complaint: chest pain -: minutes(s) Onset: during rest, during exertion Pain Location: substernal Pain Radiation: none Severity: mild Severity scale (1-10): 1 Consistency: intermittent Improves With: nothing Worsens With: nothing Anginal Symptoms: dyspnea Other Symptoms: palpitations Treatments Prior to Arrival: none - Related Data On Oral Contraceptives: No Home Medications Medication Instructions Recorded Confirmed Aspirin EC [Ecotrin Low Dose] 81 mg PO DAILY 05/23/21 12/25/21 Nitroglycerin Sl Tabs [Nitrostat] 0.4 mg SL Q5M PRN 06/28/21 12/25/21 Albuterol Sulfate [Proair Hfa] 2 puff INHALATION RT-QID PRN 10/14/21 12/25/21 Budesonide-Formot 160-4.5 Mcg 2 puff INHALATION RT-BID 10/14/21 12/25/21 [Symbicort 160-4.5 Mcg Inhaler] Metoprolol Succinate (ER) [Toprol 100 mg PO DAILY 10/14/21 12/25/21 XL] hydrALAZINE HCL [Apresoline] 100 mg PO TID 10/14/21 12/25/21 HYDROcodone/APAP 10-325MG [[place] 1 tab PO QID 11/20/21 12/25/21 10-325] cloNIDine HCL [Catapres] 0.3 mg PO TID 11/20/21 12/25/21 lisinopriL 40 mg PO DAILY 11/20/21 12/25/21 Sacubitril/Valsartan [Entresto 24 1 tab PO BID 12/21/21 12/25/21 mg-26 mg Tablet] Previous Rx's Medication Instructions Recorded Rivaroxaban [Xarelto] 20 mg PO W/SUPPER 30 Days #30 tab 07/31/21 Furosemide [Lasix] 40 mg PO BID@0900,1600 30 Days #60 08/04/21 tab metOLazone [Zaroxolyn] 5 mg PO DAILY #10 tab 10/17/21 Potassium Chloride ER [K-Dur 20] 20 meq PO BID #60 tab 11/23/21 Spironolactone [Aldactone] 25 mg PO DAILY #30 tab 11/23/21 Cephalexin [Keflex] 500 mg PO Q6HR 7 Days #28 cap 03/29/22 Allergies Allergy/AdvReac Type Severity Reaction Status Date / Time ibuprofen [From Motrin] AdvReac Nausea & Verified 04/04/22 23:19 Vomiting simvastatin [From Zocor] AdvReac Dizziness Verified 04/04/22 23:19 Review of Systems ROS Statement: Those systems with pertinent positive or pertinent negative responses have been documented in the HPI. ROS Other: All systems not noted in ROS Statement are negative. Past Medical History Past Medical History: Atrial Fibrillation, COPD, Hyperlipidemia, Hypertension, Pneumonia Additional Past Medical History / Comment(s): Other HX; Costochondritis, chronic pain, chronic low back pain with bilateral sciatica, neuropathy bilateral hands/feet, migraines, kidney stones, past partial small bowel obstruction. HTN the last 10 yrs Stopped taking meds 5 yrs ago. 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 Past Anesthesia/Blood Transfusion Reactions: No Reported Reaction Past Psychological History: Anxiety, Bipolar, Depression, Schizophrenia Smoking Status: Current every day smoker Past Alcohol Use History: None Reported Past Drug Use History: Marijuana, Prescription Drug Abuse - Past Family History Father Family Medical History: Myocardial Infarction ([place]) Additional Family Medical History / Comment(s): mi at age 35, still living Mother Family Medical History: Myocardial Infarction ([place]) Additional Family Medical History / Comment(s): Mother has had at least one [place]- pt unsure at what age. He has not had much contact with his mother since he was 17 yrs old. General Exam Limitations: no limitations General appearance: alert, in no apparent distress Head exam: Present: atraumatic, normocephalic, normal inspection Eye exam: Present: normal appearance, PERRL, EOMI. Absent: scleral icterus, conjunctival injection, periorbital swelling ENT exam: Present: normal exam, mucous membranes moist Neck exam: Present: normal inspection. Absent: tenderness, meningismus, lymphadenopathy Respiratory exam: Present: normal lung sounds bilaterally. Absent: respiratory distress, wheezes, rales, rhonchi, stridor Cardiovascular Exam: Present: regular rate, normal rhythm, normal heart sounds. Absent: systolic murmur, diastolic murmur, rubs, gallop, clicks GI/Abdominal exam: Present: soft, normal bowel sounds. Absent: distended, tenderness, guarding, rebound, rigid Extremities exam: Present: normal inspection, full ROM, normal capillary refill. Absent: tenderness, pedal edema, joint swelling, calf tenderness Back exam: Present: normal inspection Neurological exam: Present: alert, oriented X3, CN II-XII intact Psychiatric exam: Present: normal affect, normal mood Skin exam: Present: warm, dry, intact, normal color. Absent: rash Course Vital Signs 03/27/22 03/27/22 03:47 06:27 Temperature 97.6 F Pulse Rate 67 68 Respiratory 18 18 Rate Blood Pressure 162/98 O2 Sat by Pulse 97 97 Oximetry - Reevaluation(s) Reevaluation #1: 04/05/22 20: Medical record is reviewed Patient symptoms improved in the emergency room Patient informed of results and questions answered Chest Pain MDM - MDM 51 male DF for evaluation patient is positive for chest pain is noted be home with her R area, patient immediately stay. At this time is in no distress and can be discharged home Disposition Clinical Impression: Chest pain Disposition: HOME SELF-CARE Condition: Good Instructions (If sedation given, give patient instructions): Chest Pain (ED) Is patient prescribed a controlled substance at d/c from ED?: No Referrals: Clif Glasgow MD [Primary Care Provider] - 1-2 days Time of Disposition: 06:00
[2022-03-27] MEDS ORDERED: HYDROmorphone 1 MG/ML 1 ML SYRINGE IM STA (04:17)
[2022-03-27 06:28] VITALS: PULSE 68
== END 2022-03-27 06:28 | disposition home or self-care (01) ==
LOC: EC 03:45
DX: R07.9 Chest pain, unspecified (principal); I48.91 Unspecified atrial fibrillation; J44.9 Chronic obstructive pulmonary disease, unspecified; F41.9 Anxiety disorder, unspecified; I10 Essential (primary) hypertension; F31.9 Bipolar disorder, unspecified; F12.90 Cannabis use, unspecified, uncomplicated; F17.200 Nicotine dependence, unspecified, uncomplicated; Z79.82 Long term (current) use of aspirin; Z79.899 Other long term (current) drug therapy; Z59.00 Homelessness unspecified; Z88.6 Allergy status to analgesic agent; Z88.8 Allergy status to other drugs, medicaments and biological substances
CPT/HCPCS: 99284; 96372; J1170

== ENCOUNTER 2022-03-29 18:42 | Emergency (ER) | payer OTHER ==
[2022-03-29 19:26] VITALS: TEMP 98.2
[2022-03-29] MEDS ORDERED: KETOROLAC 15 MG/ML 1 ML VIAL IVP STA (19:52)
--- NOTE | 2022-03-29 20:15 | XR ---
EXAMINATION TYPE: XR foot complete bilateral DATE OF EXAM: 03/29/2022 COMPARISON: 07/11/2021 HISTORY: Multiple wounds. TECHNIQUE: 3 views each foot FINDINGS: There is amputation of the middle toe of the left foot at the head of the proximal phalanx. There is left-sided Achilles calcaneal spurring. There is right side Achilles calcaneal spurring. Th e metatarsals are intact. I see no fracture nor dislocation. No focal bone destruction. IMPRESSION: Amputation deformity of the left middle toe without change. No acute abnormality of the l eft and right foot.
[2022-03-29 20:35] LABS: Basophils # (A) 0.1 k/uL (0-0.2); Basophils % (A) 1 %; Eosinophils # (A) 0.4 k/uL (0-0.7); Eosinophils % (A) 4 %; HCT 42.3 % (39.0-53.0); HGB 15.1 gm/dL (13.0-17.5); Lymphocytes # (A) 1.7 k/uL (1.0-4.8); Lymphocytes % (A) 19 %; MCHC 35.6 g/dL (31.0-37.0); MCV 92.9 fL (80.0-100.0); Mean Platelet Volume 9.3; Monocytes # (A) 0.6 k/uL (0-1.0); Monocytes % (A) 7 %; Neutrophils # (A) 6.2 k/uL (1.3-7.7); Neutrophils % (A) 68 %; Platelet Count 199 k/uL (150-450); RBC 4.56 m/uL (4.30-5.90); RDW 12.9 % (11.5-15.5); WBC 9.1 k/uL (3.8-10.6)
[2022-03-29 20:46] LABS: ALT 23 U/L (4-49); AST 49 U/L (17-59); African American GFR (CKD) >90 (>60 ml/min/1.73 sqM); Albumin 4.5 g/dL (3.5-5.0); Alkaline Phosphatase 82 U/L (38-126); Anion Gap 4 mmol/L; Blood Urea Nitrogen 18 mg/dL (9-20); Calcium 8.8 mg/dL (8.4-10.2); Carbon Dioxide 27 mmol/L (22-30); Chloride 106 mmol/L (98-107); Glucose 82 mg/dL (74-99); Non-African American GFR(CKD) >90 (>60 ml/min/1.73 sqM); Sodium 137 mmol/L (137-145); Total Bilirubin 0.7 mg/dL (0.2-1.3); Total Protein 7.3 g/dL (6.3-8.2)
[2022-03-29 20:53] LABS: Potassium 4.6 mmol/L (3.5-5.1)
--- NOTE | 2022-03-29 21:19 | ED ---
General Adult HPI - General Chief complaint: Skin/Abscess/Foreign Body Stated complaint: Foot Problems Time Seen by Provider: 03/29/22 19:44 Source: patient Mode of arrival: ambulatory Limitations: no limitations - History of Present Illness Initial comments: Patient is a 51-year-old male who is well known to our ER presenting with chief complaint of wounds to the bilateral toes. Patient is homeless, he recently got a new pair of boots and has been wearing them 26/11. He is concerned that there is skin breakdown at the end of his toes. Patient has history of osteomyelitis which resulted in a toe amputation. There is some mild irritation to the b ilateral toes. There is no red streaking, discharge, fever, chills, nausea, vomiting, loss of range of motion, discoloration, numbness, tingling, weakness. - Related Data Home Medications Medication Instructions Recorded Confirmed Aspirin EC [Ecotrin Low Dose] 81 mg PO DAILY 05/23/21 12/25/21 Nitroglycerin Sl Tabs [Nitrostat] 0.4 mg SL Q5M PRN 06/28/21 12/25/21 Albuterol Sulfate [Proair Hfa] 2 puff INHALATION RT-QID PRN 10/14/21 12/25/21 Budesonide-Formot 160-4.5 Mcg 2 puff INHALATION RT-BID 10/14/21 12/25/21 [Symbicort 160-4.5 Mcg Inhaler] Metoprolol Succinate (ER) [Toprol 100 mg PO DAILY 10/14/21 12/25/21 XL] hydrALAZINE HCL [Apresoline] 100 mg PO TID 10/14/21 12/25/21 HYDROcodone/APAP 10-325MG [[place] 1 tab PO QID 11/20/21 12/25/21 10-325] cloNIDine HCL [Catapres] 0.3 mg PO TID 11/20/21 12/25/21 lisinopriL 40 mg PO DAILY 11/20/21 12/25/21 Sacubitril/Valsartan [Entresto 24 1 tab PO BID 12/21/21 12/25/21 mg-26 mg Tablet] Previous Rx's Medication Instructions Recorded Rivaroxaban [Xarelto] 20 mg PO W/SUPPER 30 Days #30 tab 07/31/21 Furosemide [Lasix] 40 mg PO BID@0900,1600 30 Days #60 08/04/21 tab metOLazone [Zaroxolyn] 5 mg PO DAILY #10 tab 10/17/21 Potassium Chloride ER [K-Dur 20] 20 meq PO BID #60 tab 11/23/21 Spironolactone [Aldactone] 25 mg PO DAILY #30 tab 11/23/21 Cephalexin [Keflex] 500 mg PO Q6HR 7 Days #28 cap 03/29/22 Allergies Allergy/AdvReac Type Severity Reaction Status Date / Time ibuprofen [From Motrin] AdvReac Nausea & Verified 03/29/22 19:26 Vomiting simvastatin [From Zocor] AdvReac Dizziness Verified 03/29/22 19:26 Review of Systems ROS Statement: Those systems with pertinent positive or pertinent negative responses have been documented in the HPI. ROS Other: All systems not noted in ROS Statement are negative. Past Medical History Past Medical History: Atrial Fibrillation, COPD, Hyperlipidemia, Hypertension, Pneumonia Additional Past Medical History / Comment(s): Other HX; Costochondritis, chronic pain, chronic low back pain with bilateral sciatica, neuropathy bilateral hands/feet, migraines, kidney stones, past partial small bowel obstruction. HTN the last 10 yrs Stopped taking meds 5 yrs ago. 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 Past Anesthesia/Blood Transfusion Reactions: No Reported Reaction Past Psychological History: Anxiety, Bipolar, Depression, Schizophrenia Smoking Status: Current every day smoker Past Alcohol Use History: None Reported Past Drug Use History: Marijuana, Prescription Drug Abuse - Past Family History Father Family Medical History: Myocardial Infarction ([place]) Additional Family Medical History / Comment(s): mi at age 35, still living Mother Family Medical History: Myocardial Infarction ([place]) Additional Family Medical History / Comment(s): Mother has had at least one [place]- pt unsure at what age. He has not had much contact with his mother since he was 17 yrs old. General Exam Limitations: no limitations General appearance: alert, in no apparent distress Head exam: Present: atraumatic, normocephalic, normal inspection Eye exam: Present: normal appearance Neck exam: Present: normal inspection Extremities exam: Present: full ROM, normal capillary refill, other (Minor skin breakdown at the ends of the bilateral toes). Absent: tenderness Neurological exam: Present: alert, oriented X3, CN II-XII intact Psychiatric exam: Present: normal affect, normal mood Course Vital Signs 03/29/22 03/29/22 19:24 21:42 Temperature 98.2 F 98.2 F Pulse Rate 72 55 L Respiratory 20 18 Rate Blood Pressure 163/99 158/106 O2 Sat by Pulse 99 99 Oximetry Medical Decision Making - Medical Decision Making Patient is a 51-year-old male presenting with chief complaint of wounds to the bilateral toes. These are due to a new pair of boots and the patient wearing them all of the time due to being homeless. On examination there is a minor skin breakdown on the ends of the toes. X-ray is negative for acute abnormality. CBC and CMP are unremarkable. Patient will be treated with Keflex for prophylaxis due to his current social circumstances. Educated on wound care. Follow-up with PCP. Report back to ER with any new or worsening symptoms. Discussed return parameters and answered all questions. Patient conveyed verbal understanding and agreed to the plan. I discussed this case in detail with my attending Dr. Valdes - Lab Data Result diagrams: 03/29/22 20:28 03/29/22 20:28 Lab Results 03/29/22 03/29/22 Range/Units 20:28 20:28 WBC 9.1 (3.8-10.6) k/uL RBC 4.56 (4.30-5.90) m/uL Hgb 15.1 (13.0-17.5) gm/dL Hct 42.3 (39.0-53.0) % MCV 92.9 (80.0-100.0) fL MCH 33.0 (25.0-35.0) pg MCHC 35.6 (31.0-37.0) g/dL RDW 12.9 (11.5-15.5) % Plt Count 199 (150-450) k/uL MPV 9.3 Neutrophils % 68 % Lymphocytes % 19 % Monocytes % 7 % Eosinophils % 4 % Basophils % 1 % Neutrophils # 6.2 (1.3-7.7) k/uL Lymphocytes # 1.7 (1.0-4.8) k/uL Monocytes # 0.6 (0-1.0) k/uL Eosinophils # 0.4 (0-0.7) k/uL Basophils # 0.1 (0-0.2) k/uL Sodium 137 (137-145) mmol/L Potassium 4.6 (3.5-5.1) mmol/L Chloride 106 (98-107) mmol/L Carbon Dioxide 27 (22-30) mmol/L Anion Gap 4 mmol/L BUN 18 (9-20) mg/dL Creatinine 0.87 (0.66-1.25) mg/dL Est GFR (CKD-EPI)AfAm >90 (>60 ml/min/1.73 sqM) Est GFR (CKD-EPI)NonAf >90 (>60 ml/min/1.73 sqM) Glucose 82 (74-99) mg/dL Calcium 8.8 (8.4-10.2) mg/dL Total Bilirubin 0.7 (0.2-1.3) mg/dL AST 49 (17-59) U/L ALT 23 (4-49) U/L Alkaline Phosphatase 82 (38-126) U/L Total Protein 7.3 (6.3-8.2) g/dL Albumin 4.5 (3.5-5.0) g/dL Disposition Clinical Impression: Cellulitis Disposition: HOME SELF-CARE Condition: Good Instructions (If sedation given, give patient instructions): Cellulitis (ED) Additional Instructions: Follow-up with PCP. Report back to ER with any new or worsening symptoms. Take medication as prescribed. Take Motrin and Tylenol as needed for pain control. Prescriptions: Cephalexin [Keflex] 500 mg PO Q6HR 7 Days #28 cap Is patient prescribed a controlled substance at d/c from ED?: No Referrals: Clif Glasgow MD [Primary Care Provider] - 1-2 days Time of Disposition: 21:19
[2022-03-29 21:43] VITALS: BP 158/106; PULSE 55; RESP 18
== END 2022-03-29 21:43 | disposition home or self-care (01) ==
LOC: EC 18:42
DX: L03.032 Cellulitis of left toe (principal); L03.031 Cellulitis of right toe; I48.91 Unspecified atrial fibrillation; J44.9 Chronic obstructive pulmonary disease, unspecified; I10 Essential (primary) hypertension; F41.9 Anxiety disorder, unspecified; F32.A Depression, unspecified; F17.200 Nicotine dependence, unspecified, uncomplicated; E78.5 Hyperlipidemia, unspecified; Z88.6 Allergy status to analgesic agent; Z88.8 Allergy status to other drugs, medicaments and biological substances; Z79.82 Long term (current) use of aspirin; Z79.899 Other long term (current) drug therapy
CPT/HCPCS: 36415; 80053; 85025; 73630; 99283; 96372; J1885; 99284

== ENCOUNTER 2022-03-30 02:16 | Emergency (ER) | payer OTHER ==
[2022-03-30 02:21] VITALS: BP 178/103; PULSE 68; RESP 18; TEMP 97.6
--- NOTE | 2022-03-30 03:21 | ED ---
Recheck HPI - General Chief Complaint: Extremity Injury, Lower Stated Complaint: chest pain Time Seen by Provider: 03/30/22 02:39 Source: patient, RN notes reviewed, old records reviewed Mode of arrival: wheelchair - History of Present Illness Initial Comments: This is a 51-year-old male DF for evaluation. Patient Dese for evaluation regards to chest pain. Patient is well-known to our facility as he is a local homeless coming in for evaluation of chest pain. Patient having no other acute symptoms no shortness of breath no leg pain no belly pain no travel history no sick contacts no fevers no cough no congestion. Patient just generalized does not feel well. Also admits to being hungry needing a place to stay MD Complaint: medication refill request -: unknown Returns Today for: persistent/worsening pain related to initial visit Symptoms Since Prior Visit: worsening pain Associated Symptoms: abdominal pain Treatments Prior to Arrival: Given Pain Meds on - Related Data Home Medications Medication Instructions Recorded Confirmed Aspirin EC [Ecotrin Low Dose] 81 mg PO DAILY 05/23/21 12/25/21 Nitroglycerin Sl Tabs [Nitrostat] 0.4 mg SL Q5M PRN 06/28/21 12/25/21 Albuterol Sulfate [Proair Hfa] 2 puff INHALATION RT-QID PRN 10/14/21 12/25/21 Budesonide-Formot 160-4.5 Mcg 2 puff INHALATION RT-BID 10/14/21 12/25/21 [Symbicort 160-4.5 Mcg Inhaler] Metoprolol Succinate (ER) [Toprol 100 mg PO DAILY 10/14/21 12/25/21 XL] hydrALAZINE HCL [Apresoline] 100 mg PO TID 10/14/21 12/25/21 HYDROcodone/APAP 10-325MG [[place] 1 tab PO QID 11/20/21 12/25/21 10-325] cloNIDine HCL [Catapres] 0.3 mg PO TID 11/20/21 12/25/21 lisinopriL 40 mg PO DAILY 11/20/21 12/25/21 Sacubitril/Valsartan [Entresto 24 1 tab PO BID 12/21/21 12/25/21 mg-26 mg Tablet] Previous Rx's Medication Instructions Recorded Rivaroxaban [Xarelto] 20 mg PO W/SUPPER 30 Days #30 tab 07/31/21 Furosemide [Lasix] 40 mg PO BID@0900,1600 30 Days #60 08/04/21 tab metOLazone [Zaroxolyn] 5 mg PO DAILY #10 tab 10/17/21 Potassium Chloride ER [K-Dur 20] 20 meq PO BID #60 tab 11/23/21 Spironolactone [Aldactone] 25 mg PO DAILY #30 tab 11/23/21 Cephalexin [Keflex] 500 mg PO Q6HR 7 Days #28 cap 03/29/22 Allergies Allergy/AdvReac Type Severity Reaction Status Date / Time ibuprofen [From Motrin] AdvReac Nausea & Verified 04/04/22 23:19 Vomiting simvastatin [From Zocor] AdvReac Dizziness Verified 04/04/22 23:19 Review of Systems ROS Statement: Those systems with pertinent positive or pertinent negative responses have been documented in the HPI. ROS Other: All systems not noted in ROS Statement are negative. Past Medical History Past Medical History: Atrial Fibrillation, COPD, Hyperlipidemia, Hypertension, Pneumonia Additional Past Medical History / Comment(s): Other HX; Costochondritis, chronic pain, chronic low back pain with bilateral sciatica, neuropathy bilateral hands/feet, migraines, kidney stones, past partial small bowel obstruction. HTN the last 10 yrs Stopped taking meds 5 yrs ago. 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 Past Anesthesia/Blood Transfusion Reactions: No Reported Reaction Past Psychological History: Anxiety, Bipolar, Depression, Schizophrenia Smoking Status: Current every day smoker Past Alcohol Use History: None Reported Past Drug Use History: Marijuana, Prescription Drug Abuse - Past Family History Father Family Medical History: Myocardial Infarction ([place]) Additional Family Medical History / Comment(s): mi at age 35, still living Mother Family Medical History: Myocardial Infarction ([place]) Additional Family Medical History / Comment(s): Mother has had at least one [place]- pt unsure at what age. He has not had much contact with his mother since he was 17 yrs old. General Exam General appearance: alert, in no apparent distress Head exam: Present: atraumatic, normocephalic, normal inspection Eye exam: Present: normal appearance, PERRL, EOMI. Absent: scleral icterus, conjunctival injection, periorbital swelling ENT exam: Present: normal exam, mucous membranes moist Neck exam: Present: normal inspection. Absent: tenderness, meningismus, lymphadenopathy Respiratory exam: Present: normal lung sounds bilaterally. Absent: respiratory distress, wheezes, rales, rhonchi, stridor Cardiovascular Exam: Present: regular rate, normal rhythm, normal heart sounds. Absent: systolic murmur, diastolic murmur, rubs, gallop, clicks GI/Abdominal exam: Present: soft, normal bowel sounds. Absent: distended, tenderness, guarding, rebound, rigid Extremities exam: Present: normal inspection, full ROM, normal capillary refill. Absent: tenderness, pedal edema, joint swelling, calf tenderness Back exam: Present: normal inspection Neurological exam: Present: alert, oriented X3, CN II-XII intact Psychiatric exam: Present: normal affect, normal mood Skin exam: Present: warm, dry, intact, normal color. Absent: rash Course Vital Signs 03/30/22 02:19 Temperature 97.6 F Pulse Rate 68 Respiratory 18 Rate Blood Pressure 178/103 O2 Sat by Pulse 98 Oximetry - Reevaluation(s) Reevaluation #1: 03/30/22 Medical record is reviewed Patient symptoms are improved here in the ER Patient informed results and questions answered Medical Decision Making - Medical Decision Making 51 male to the emergency department for evaluation of overall not feeling well. Patient feels better here in the emergency department. No current chest pain and can be discharged home Disposition Clinical Impression: Bilateral foot pain Disposition: HOME SELF-CARE Condition: Good Instructions (If sedation given, give patient instructions): Foot Contusion (ED) Is patient prescribed a controlled substance at d/c from ED?: No Referrals: Clif Glasgow MD [Primary Care Provider] - 1-2 days Time of Disposition: 03:40
[2022-03-30] MEDS ORDERED: HYDROmorphone 1 MG/ML 1 ML SYRINGE IM STA (03:41)
== END 2022-03-30 03:57 | disposition home or self-care (01) ==
LOC: EC 02:16
DX: M79.672 Pain in left foot (principal); M79.671 Pain in right foot; I48.91 Unspecified atrial fibrillation; I10 Essential (primary) hypertension; J44.9 Chronic obstructive pulmonary disease, unspecified; F41.9 Anxiety disorder, unspecified; F31.9 Bipolar disorder, unspecified; F17.200 Nicotine dependence, unspecified, uncomplicated; F12.90 Cannabis use, unspecified, uncomplicated; Z59.00 Homelessness unspecified; Z79.82 Long term (current) use of aspirin; Z79.51 Long term (current) use of inhaled steroids; Z79.899 Other long term (current) drug therapy; Z88.8 Allergy status to other drugs, medicaments and biological substances; Z88.6 Allergy status to analgesic agent
CPT/HCPCS: 99284; 96372; J1170

== ENCOUNTER 2022-04-04 22:09 | Emergency (ER) | payer OTHER ==
[2022-04-05] MEDS ORDERED: ASPIRIN 81 MG PO STA (01:27)
[2022-04-05] MEDS ORDERED: ACETAMINOPHEN TAB 500 MG TAB PO STA (01:42)
--- NOTE | 2022-04-05 01:49 | ED ---
Chest Pain HPI - General Chief Complaint: Chest Pain Stated Complaint: Chest pain Time Seen by Provider: 04/05/22 01:20 Source: patient Mode of arrival: ambulatory Limitations: no limitations - Related Data Home Medications Medication Instructions Recorded Confirmed Aspirin EC [Ecotrin Low Dose] 81 mg PO DAILY 05/23/21 12/25/21 Nitroglycerin Sl Tabs [Nitrostat] 0.4 mg SL Q5M PRN 06/28/21 12/25/21 Albuterol Sulfate [Proair Hfa] 2 puff INHALATION RT-QID PRN 10/14/21 12/25/21 Budesonide-Formot 160-4.5 Mcg 2 puff INHALATION RT-BID 10/14/21 12/25/21 [Symbicort 160-4.5 Mcg Inhaler] Metoprolol Succinate (ER) [Toprol 100 mg PO DAILY 10/14/21 12/25/21 XL] hydrALAZINE HCL [Apresoline] 100 mg PO TID 10/14/21 12/25/21 HYDROcodone/APAP 10-325MG [[place] 1 tab PO QID 11/20/21 12/25/21 10-325] cloNIDine HCL [Catapres] 0.3 mg PO TID 11/20/21 12/25/21 lisinopriL 40 mg PO DAILY 11/20/21 12/25/21 Sacubitril/Valsartan [Entresto 24 1 tab PO BID 12/21/21 12/25/21 mg-26 mg Tablet] Previous Rx's Medication Instructions Recorded Rivaroxaban [Xarelto] 20 mg PO W/SUPPER 30 Days #30 tab 07/31/21 Furosemide [Lasix] 40 mg PO BID@0900,1600 30 Days #60 08/04/21 tab metOLazone [Zaroxolyn] 5 mg PO DAILY #10 tab 10/17/21 Potassium Chloride ER [K-Dur 20] 20 meq PO BID #60 tab 11/23/21 Spironolactone [Aldactone] 25 mg PO DAILY #30 tab 11/23/21 Cephalexin [Keflex] 500 mg PO Q6HR 7 Days #28 cap 03/29/22 Allergies Allergy/AdvReac Type Severity Reaction Status Date / Time ibuprofen [From Motrin] AdvReac Nausea & Verified 04/04/22 23:19 Vomiting simvastatin [From Zocor] AdvReac Dizziness Verified 04/04/22 23:19 Review of Systems ROS Statement: Those systems with pertinent positive or pertinent negative responses have been documented in the HPI. ROS Other: All systems not noted in ROS Statement are negative. EKG Findings - EKG Comments: EKG Findings:: EKG done at 0036 and interpreted by me reveals sinus rhythm with possible left ventricular hypertrophy, normal intervals, nonspecific T-wave abnormality, when compared to the previous study from 03/18/2022 there is no significant change. Normal axis. Past Medical History Past Medical History: Atrial Fibrillation, COPD, Hyperlipidemia, Hypertension, Pneumonia Additional Past Medical History / Comment(s): Other HX; Costochondritis, chronic pain, chronic low back pain with bilateral sciatica, neuropathy bilateral hands/feet, migraines, kidney stones, past partial small bowel obstruction. HTN the last 10 yrs Stopped taking meds 5 yrs ago. 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 Past Anesthesia/Blood Transfusion Reactions: No Reported Reaction Past Psychological History: Anxiety, Bipolar, Depression, Schizophrenia Smoking Status: Current every day smoker Past Alcohol Use History: None Reported Past Drug Use History: Marijuana, Prescription Drug Abuse - Past Family History Father Family Medical History: Myocardial Infarction ([place]) Additional Family Medical History / Comment(s): mi at age 35, still living Mother Family Medical History: Myocardial Infarction ([place]) Additional Family Medical History / Comment(s): Mother has had at least one [place]- pt unsure at what age. He has not had much contact with his mother since he was 17 yrs old. General Exam Limitations: no limitations Course Vital Signs 04/04/22 04/05/22 23:16 02:09 Temperature 98.9 F Pulse Rate 85 72 Respiratory 16 16 Rate Blood Pressure 174/90 166/77 O2 Sat by Pulse 99 100 Oximetry - Reevaluation(s) Reevaluation #1: 04/05/22 03:07 Medical record is reviewed Patient stable Patient is informed of results and questions answered Patient in no distress Chest Pain MDM - MDM Patient presents again for recurrent chest pain. Differential includes cardiac chest pain, anxiety, chest wall syndrome, I do not believe this is consistent with pulmonary embolism. Although I did consider this. She was in no distress at discharge. Patient's troponin was negative. There was no evidence of acute EKG changes. I suspect this is not cardiac related given the patient's history of chronic and recurrent chest pain. There was no evidence of failure. Patient was told to return to the ER for any signs or symptoms worsen. Told to return immediately if any other problems arise. All questions answered. Treatment plan discussed. Patient in agreement Every effort has been made to ensure accuracy of this dictation. However, due to the limitations of electronic medical records and dictation devices, errors in charting still occur. The case was discussed in detail with ED attending physician. Presentation, findings, treatment plan discussed in detail. Central Supply Technician Dr. Mcdonough Disposition Clinical Impression: Chronic chest pain, Hypokalemia, Hypertension, poor control Disposition: HOME SELF-CARE Condition: Stable Instructions (If sedation given, give patient instructions): Chest Pain (ED), Hypokalemia (ED), Hypertension (ED) Additional Instructions: Follow-up with your regular physician as directed. Return to the ER immediately if any symptoms worsen, new symptoms arise, or any other problems develop. Is patient prescribed a controlled substance at d/c from ED?: No Referrals: Clif Glasgow MD [Primary Care Provider] - 1-2 days Time of Disposition: 03:08
[2022-04-05 02:25] LABS: African American GFR (CKD) >90 (>60 ml/min/1.73 sqM); Anion Gap 7 mmol/L; Blood Urea Nitrogen 10 mg/dL (9-20); Calcium 8.4 mg/dL (8.4-10.2); Carbon Dioxide 23 mmol/L (22-30); Chloride 106 mmol/L (98-107); Glucose 103 mg/dL (74-99); Magnesium 1.9 mg/dL (1.6-2.3); Non-African American GFR(CKD) >90 (>60 ml/min/1.73 sqM); Potassium 3.3 mmol/L (3.5-5.1); Sodium 136 mmol/L (137-145)
--- NOTE | 2022-04-05 02:45 | XR ---
EXAMINATION TYPE: XR chest 1V portable DATE OF EXAM: 04/05/2022 COMPARISON: 03/18/2022 HISTORY: Chest pain TECHNIQUE: FINDINGS: There is no heart failure nor confluent pneumonic infiltrate. Costophrenic angles are clear . Heart size is normal. IMPRESSION: No active cardiopulmonary disease. No change.
[2022-04-05] MEDS ORDERED: POTASSIUM CHLORIDE ER 20 MEQ TAB.ER PO STA (03:07)
[2022-04-05 03:57] VITALS: BP 155/80; PULSE 71; RESP 18; TEMP 98.7
== END 2022-04-05 03:57 | disposition home or self-care (01) ==
LOC: EC 22:09
DX: R07.9 Chest pain, unspecified (principal); E87.6 Hypokalemia; I10 Essential (primary) hypertension; F41.9 Anxiety disorder, unspecified; F31.9 Bipolar disorder, unspecified; I48.91 Unspecified atrial fibrillation; J44.9 Chronic obstructive pulmonary disease, unspecified; F17.200 Nicotine dependence, unspecified, uncomplicated; F12.90 Cannabis use, unspecified, uncomplicated; Z88.6 Allergy status to analgesic agent; Z88.8 Allergy status to other drugs, medicaments and biological substances; Z79.899 Other long term (current) drug therapy; Z79.82 Long term (current) use of aspirin
CPT/HCPCS: 36415; 71045; 80048; 83735; 83880; 84484; 93005; 99285

== ENCOUNTER 2022-04-08 18:42 | Emergency (ER) | payer OTHER ==
--- NOTE | 2022-04-09 01:03 | ED ---
Recheck HPI - General Chief Complaint: Chest Pain Stated Complaint: Chest Pain Time Seen by Provider: 04/09/22 01:03 Source: patient, RN notes reviewed, old records reviewed Mode of arrival: ambulatory Limitations: no limitations - History of Present Illness Initial Comments: This is a 51-year-old male well-known to our ER. Patient Dese for evaluation of chest pain patient's well-known to our facility well-known rate local homeless patient. Patient has history of multiple times a week for multiple similar complaints. MD Complaint: abnormal lab -: hour(s) Returns Today for: Called Because of Abnormal Lab/Test, persistent/worsening pain related to initial visit Symptoms Since Prior Visit: worsening pain Context: planned re-check Associated Symptoms: none - Related Data Home Medications Medication Instructions Recorded Confirmed Aspirin EC [Ecotrin Low Dose] 81 mg PO DAILY 05/23/21 12/25/21 Nitroglycerin Sl Tabs [Nitrostat] 0.4 mg SL Q5M PRN 06/28/21 12/25/21 Albuterol Sulfate [Proair Hfa] 2 puff INHALATION RT-QID PRN 10/14/21 12/25/21 Budesonide-Formot 160-4.5 Mcg 2 puff INHALATION RT-BID 10/14/21 12/25/21 [Symbicort 160-4.5 Mcg Inhaler] Metoprolol Succinate (ER) [Toprol 100 mg PO DAILY 10/14/21 12/25/21 XL] hydrALAZINE HCL [Apresoline] 100 mg PO TID 10/14/21 12/25/21 HYDROcodone/APAP 10-325MG [Egan 1 tab PO QID 11/20/21 12/25/21 10-325] cloNIDine HCL [Catapres] 0.3 mg PO TID 11/20/21 12/25/21 lisinopriL 40 mg PO DAILY 11/20/21 12/25/21 Sacubitril/Valsartan [Entresto 24 1 tab PO BID 12/21/21 12/25/21 mg-26 mg Tablet] Previous Rx's Medication Instructions Recorded Rivaroxaban [Xarelto] 20 mg PO W/SUPPER 30 Days #30 tab 07/31/21 Furosemide [Lasix] 40 mg PO BID@0900,1600 30 Days #60 08/04/21 tab metOLazone [Zaroxolyn] 5 mg PO DAILY #10 tab 10/17/21 Potassium Chloride ER [K-Dur 20] 20 meq PO BID #60 tab 11/23/21 Spironolactone [Aldactone] 25 mg PO DAILY #30 tab 11/23/21 Cephalexin [Keflex] 500 mg PO Q6HR 7 Days #28 cap 03/29/22 Allergies Allergy/AdvReac Type Severity Reaction Status Date / Time ibuprofen [From Motrin] AdvReac Nausea & Verified 04/08/22 18:51 Vomiting simvastatin [From Zocor] AdvReac Dizziness Verified 04/08/22 18:51 Review of Systems ROS Statement: Those systems with pertinent positive or pertinent negative responses have been documented in the HPI. ROS Other: All systems not noted in ROS Statement are negative. Past Medical History Past Medical History: Atrial Fibrillation, COPD, Hyperlipidemia, Hypertension, Pneumonia Additional Past Medical History / Comment(s): Other HX; Costochondritis, chronic pain, chronic low back pain with bilateral sciatica, neuropathy bilateral hands/feet, migraines, kidney stones, past partial small bowel obstruction. HTN the last 10 yrs Stopped taking meds 5 yrs ago. 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 Past Anesthesia/Blood Transfusion Reactions: No Reported Reaction Past Psychological History: Anxiety, Bipolar, Depression, Schizophrenia Smoking Status: Current every day smoker Past Alcohol Use History: None Reported Past Drug Use History: Marijuana, Prescription Drug Abuse - Past Family History Father Family Medical History: Myocardial Infarction ([place]) Additional Family Medical History / Comment(s): mi at age 35, still living Mother Family Medical History: Myocardial Infarction ([place]) Additional Family Medical History / Comment(s): Mother has had at least one [place]- pt unsure at what age. He has not had much contact with his mother since he was 17 yrs old. General Exam Limitations: no limitations General appearance: alert, in no apparent distress Head exam: Present: atraumatic, normocephalic, normal inspection Eye exam: Present: normal appearance, PERRL, EOMI. Absent: scleral icterus, conjunctival injection, periorbital swelling ENT exam: Present: normal exam, mucous membranes moist Neck exam: Present: normal inspection. Absent: tenderness, meningismus, lymphadenopathy Respiratory exam: Present: normal lung sounds bilaterally. Absent: respiratory distress, wheezes, rales, rhonchi, stridor Cardiovascular Exam: Present: regular rate, normal rhythm, normal heart sounds. Absent: systolic murmur, diastolic murmur, rubs, gallop, clicks GI/Abdominal exam: Present: soft, normal bowel sounds. Absent: distended, tenderness, guarding, rebound, rigid Extremities exam: Present: normal inspection, full ROM, normal capillary refill. Absent: tenderness, pedal edema, joint swelling, calf tenderness Back exam: Present: normal inspection Neurological exam: Present: alert, oriented X3, CN II-XII intact Psychiatric exam: Present: normal affect, normal mood Skin exam: Present: warm, dry, intact, normal color. Absent: rash Course Vital Signs 04/08/22 04/09/22 18:50 05:04 Temperature 98.4 F 98.1 F Pulse Rate 97 80 Respiratory 22 18 Rate Blood Pressure 163/85 132/84 O2 Sat by Pulse 100 99 Oximetry - Reevaluation(s) Reevaluation #1: 04/09/22 Medical record is reviewed Patient symptoms are improved here in the ER Patient informed results and questions are answered Medical Decision Making - Medical Decision Making 51 male to the emergency department for evaluation patient presents today for evaluation of chest pain. Nonspecific similar chest pain to all of his visits. Patient can be discharged home - EKG Data -: EKG Interpreted by Me (EKG shows sinus 94 VT 194 QRS 164 QTC 420) Disposition Clinical Impression: Chest wall syndrome, Atypical chest pain Disposition: HOME SELF-CARE Condition: Fair Instructions (If sedation given, give patient instructions): Chest Pain (ED) Is patient prescribed a controlled substance at d/c from ED?: No Referrals: Clif Glasgow MD [Primary Care Provider] - 1-2 days Time of Disposition: 05:00
[2022-04-09] MEDS ORDERED: HYDROmorphone 1 MG/ML 1 ML SYRINGE IM STA (04:53)
[2022-04-09 05:05] VITALS: BP 132/84; PULSE 80; RESP 18; TEMP 98.1
== END 2022-04-09 05:05 | disposition home or self-care (01) ==
LOC: EC 18:42
DX: R07.1 Chest pain on breathing (principal); I48.91 Unspecified atrial fibrillation; J44.9 Chronic obstructive pulmonary disease, unspecified; I10 Essential (primary) hypertension; F41.9 Anxiety disorder, unspecified; F31.9 Bipolar disorder, unspecified; F17.200 Nicotine dependence, unspecified, uncomplicated; Z88.6 Allergy status to analgesic agent; Z88.8 Allergy status to other drugs, medicaments and biological substances; Z79.82 Long term (current) use of aspirin; Z79.899 Other long term (current) drug therapy
CPT/HCPCS: 96372; 99284; J1170

== ENCOUNTER 2022-05-18 20:06 | Observation (INO) | payer OTHER ==
[2022-05-18] MEDS ORDERED: NALOXONE 0.4 MG/ML 1 ML VIAL IV PRN (22:07)
[2022-05-18] MEDS ORDERED: ONDANSETRON 4 MG/2 ML VIAL IVP PRN (22:07)
[2022-05-18] MEDS ORDERED: SODIUM CHLORIDE 0.9% 1,000 ML IV STA (22:07)
[2022-05-18] MEDS ORDERED: MORPHINE SULFATE 4 MG/ML SYRINGE IV STA (22:07)
--- NOTE | 2022-05-18 22:21 | ED ---
Recheck HPI - General Chief Complaint: Recheck/Abnormal Lab/Rx Stated Complaint: Toe Incision Opening Time Seen by Provider: 05/18/22 21:26 Source: patient, RN notes reviewed, old records reviewed Mode of arrival: ambulatory Limitations: no limitations - History of Present Illness Initial Comments: This is a 51-year-old male DF for evaluation. Patient presents today for evaluation of recheck, postoperative wound. Patient is well-known to this facility for psychiatric illnesses homelessness etc. Patient recently had gangrene of his right toe. Patient did have toe amputation. Did have prolonged hospital stay greater than 2 weeks on antibiotics currently not on antibiotics. A she states he has had follow-up for anxiety going well but recently his wound reopened and has had drainage. Patient states the pain is significantly increased since that happened. No fevers, no streaking up his leg, no swelling of his foot or ankle. Patient states he is taking his pain medication at home without help MD Complaint: wound re-check -: days(s) Initial Visit For: laceration, cellulitis, other (Gangrene and toe amputation) Returns Today for: wound recheck, needs IV antibiotics, persistent/worsening pain related to initial visit Symptoms Since Prior Visit: worsening pain, worsening swelling, worsening redness Context: ran out of medication (Patient is been off antibiotics) Associated Symptoms: none Treatments Prior to Arrival: Given Antibiotics on, Given Pain Meds on, other (Recent amputation of right toe) - Related Data Home Medications Medication Instructions Recorded Confirmed Aspirin EC [Ecotrin Low Dose] 81 mg PO DAILY 05/23/21 12/25/21 Nitroglycerin Sl Tabs [Nitrostat] 0.4 mg SL Q5M PRN 06/28/21 12/25/21 Albuterol Sulfate [Proair Hfa] 2 puff INHALATION RT-QID PRN 10/14/21 12/25/21 Budesonide-Formot 160-4.5 Mcg 2 puff INHALATION RT-BID 10/14/21 12/25/21 [Symbicort 160-4.5 Mcg Inhaler] Metoprolol Succinate (ER) [Toprol 100 mg PO DAILY 10/14/21 12/25/21 XL] hydrALAZINE HCL [Apresoline] 100 mg PO TID 10/14/21 12/25/21 HYDROcodone/APAP 10-325MG [[place] 1 tab PO QID 11/20/21 12/25/21 10-325] cloNIDine HCL [Catapres] 0.3 mg PO TID 11/20/21 12/25/21 lisinopriL 40 mg PO DAILY 11/20/21 12/25/21 Sacubitril/Valsartan [Entresto 24 1 tab PO BID 12/21/21 12/25/21 mg-26 mg Tablet] Previous Rx's Medication Instructions Recorded Rivaroxaban [Xarelto] 20 mg PO W/SUPPER 30 Days #30 tab 07/31/21 Furosemide [Lasix] 40 mg PO BID@0900,1600 30 Days #60 08/04/21 tab metOLazone [Zaroxolyn] 5 mg PO DAILY #10 tab 10/17/21 Potassium Chloride ER [K-Dur 20] 20 meq PO BID #60 tab 11/23/21 Spironolactone [Aldactone] 25 mg PO DAILY #30 tab 11/23/21 Cephalexin [Keflex] 500 mg PO Q6HR 7 Days #28 cap 03/29/22 Allergies Allergy/AdvReac Type Severity Reaction Status Date / Time ibuprofen [From Motrin] AdvReac Nausea & Verified 05/18/22 20:20 Vomiting simvastatin [From Zocor] AdvReac Dizziness Verified 05/18/22 20:20 Review of Systems ROS Statement: Those systems with pertinent positive or pertinent negative responses have been documented in the HPI. ROS Other: All systems not noted in ROS Statement are negative. Past Medical History Past Medical History: Atrial Fibrillation, COPD, Hyperlipidemia, Hypertension, Pneumonia Additional Past Medical History / Comment(s): Other HX; Costochondritis, chronic pain, chronic low back pain with bilateral sciatica, neuropathy bilateral hands/feet, migraines, kidney stones, past partial small bowel obstr uction. HTN the last 10 yrs Stopped taking meds 5 yrs ago. 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 Past Anesthesia/Blood Transfusion Reactions: No Reported Reaction Past Psychological History: Anxiety, Bipolar, Depression, Schizophrenia Smoking Status: Current every day smoker Past Alcohol Use History: None Reported Past Drug Use History: Marijuana, Prescription Drug Abuse - Past Family History Father Family Medical History: Myocardial Infarction ([place]) Additional Family Medical History / Comment(s): mi at age 35, still living Mother Family Medical History: Myocardial Infarction ([place]) Additional Family Medical History / Comment(s): Mother has had at least one [place]- pt unsure at what age. He has not had much contact with his mother since he was 17 yrs old. General Exam - General Exam Comments Initial Comments: Right third toe amputation Incision is clean dry and mostly healed with 2 sutures that have burst Patient does have some mildly purulent drainage not really malodorous Tenderness to area around wound Mild erythema Limitations: no limitations General appearance: alert, in no apparent distress Head exam: Present: atraumatic, normocephalic, normal inspection Eye exam: Present: normal appearance, PERRL, EOMI. Absent: scleral icterus, conjunctival injection, periorbital swelling ENT exam: Present: normal exam, mucous membranes moist Neck exam: Present: normal inspection. Absent: tenderness, meningismus, lymphadenopathy Respiratory exam: Present: normal lung sounds bilaterally. Absent: respiratory distress, wheezes, rales, rhonchi, stridor Cardiovascular Exam: Present: regular rate, normal rhythm, normal heart sounds. Absent: systolic murmur, diastolic murmur, rubs, gallop, clicks GI/Abdominal exam: Present: soft, normal bowel sounds. Absent: distended, tenderness, guarding, rebound, rigid Extremities exam: Present: full ROM, tenderness (Surgical Site), normal capillary refill, other (inc edema, tender). Absent: normal inspection (erythema), pedal edema, joint swelling, calf tenderness Back exam: Present: normal inspection Neurological exam: Present: alert, oriented X3, CN II-XII intact Psychiatric exam: Present: normal affect, normal mood Skin exam: Present: warm, dry, intact, normal color. Absent: rash Course Vital Signs 05/18/22 20:16 Temperature 97.6 F Pulse Rate 80 Respiratory 18 Rate Blood Pressure 186/102 O2 Sat by Pulse 99 Oximetry - Reevaluation(s) Reevaluation #1: 05/18/22 22:17 Medical record is reviewed Reevaluation #2: 01/13/23 22:17 Patient is symptomatic improving here in the ER Reevaluation #3: 05/18/22 22:17 Patient informed of results and questions answered Reevaluation #4: 05/18/22 22:17 Was pt. sent in by a medical professional or institution? @ -no Did you speak to anyone other than the patient for history? @ -no Did you review nursing and triage notes? @ -agree Were old charts reviewed? @ -no, although patient very familiar to myself and hospital Differential Diagnosis? @ -postOpWound, cellulitis v osteo EKG interpreted by me (3pts min.)? @ -[none] X-rays interpreted by me (1pt min.)? @ -yes CT interpreted by me (1pt min.)? @ -[none] U/S interpreted by me (1pt. min.)? @ -[none] What testing was considered but not performed? (CT, X-rays, U/S, labs)? Why? @ no What meds were considered but not given? Why? @ -[none] Did you discuss the management of the patient with other professionals? @ -no Did you reconcile home meds? @ -[none] Was smoking cessation discussed for >3mins.? @ -[none] Was critical care preformed (if so, how long)? @ -[none] Were there social determinants of health that impacted care today? How? (Homelessness, low income, unemployed, alcoholism, drug addiction, transportation, low edu. Level, literacy, decrease access to med. care, long-term, rehab)? @ -homelessness Was there de-escalation of care discussed even if they declined? (Discuss DNR or withdrawal of care, Hospice)? @ -no What co-morbidities impacted this encounter? (DM, HTN, Smoking, COPD, CAD, Cancer, CVA, Hep., AIDS, mental health diagnosis, sleep apnea, morbid obesity)? @ -no Was patient admitted / discharged? @ -admit Undiagnosed new problem with uncertain prognosis? @ -[none] Drug Therapy requiring intensive monitoring for toxicity (Heparin, Nitro, Insulin, Cardizem)? @ -[none] Were any procedures done? @ -[none] Diagnosis/symptom? @ -[default] Acute, or Chronic, or Acute on Chronic? @ -[default] Uncomplicated (without systemic symptoms) or Complicated (systemic symptoms)? @ -[default] Side effects of treatment? @ -[none] Exacerbation, Progression, or Severe Exacerbation] @ -[no] Poses a threat to life or bodily function? @ -[no] - Consultations Consultation #1: Spoke with Dr. Glasgow who agrees to admit the patient Medical Decision Making - Medical Decision Making 51 male DF for evaluation will admit for wound care reevaluation of postop wound and wound dehiscence. Patient will place on antibiotics, continue pain control and wound care - Radiology Data Radiology results: report reviewed (X-ray right foot is negative for significant acute disease), image reviewed Disposition Clinical Impression: Right foot pain, Postoperative wound dehiscence, Cellulitis of right foot, Infected surgical wound Narrative: r/o PostOp Infection Disposition: ADMITTED IP TO THIS HOSP Condition: Good Is patient prescribed a controlled substance at d/c from ED?: No Referrals: Clif Glasgow MD [Primary Care Provider] - 1-2 days Time of Disposition: 22:30
--- NOTE | 2022-05-18 22:51 | XR ---
EXAMINATION TYPE: XR foot complete RT DATE OF EXAM: 05/18/2022 COMPARISON: 03/29/2022 HISTORY: Postop. Pain. TECHNIQUE: 3 views FINDINGS: There is amputation deformity of the middle toe at the level of the base of the proximal ph alanx. The metatarsals are intact. The hindfoot is intact. There is Achilles calcaneal spurring. IMPRESSION: Calcaneal spurring. No fracture seen. Amputation deformity with no evidence of focal bone destruction.
[2022-05-18 23:30] LABS: Basophils # (A) 0.1 k/uL (0-0.2); Basophils % (A) 1 %; Eosinophils # (A) 0.3 k/uL (0-0.7); Eosinophils % (A) 3 %; HCT 40.4 % (39.0-53.0); HGB 13.7 gm/dL (13.0-17.5); Lymphocytes # (A) 1.7 k/uL (1.0-4.8); Lymphocytes % (A) 17 %; MCH 31.5 pg (25.0-35.0); MCHC 33.9 g/dL (31.0-37.0); MCV 92.9 fL (80.0-100.0); Mean Platelet Volume 8.9; Monocytes # (A) 0.7 k/uL (0-1.0); Monocytes % (A) 7 %; Neutrophils # (A) 6.7 k/uL (1.3-7.7); Neutrophils % (A) 70 %; Platelet Count 183 k/uL (150-450); RBC 4.35 m/uL (4.30-5.90); RDW 13.5 % (11.5-15.5); WBC 9.6 k/uL (3.8-10.6)
[2022-05-18 23:33] LABS: Partial Thromboplastin Time 23.3 sec (22.0-30.0); Prothrombin Time 10.3 sec (9.0-12.0)
[2022-05-18 23:40] LABS: ALT 22 U/L (4-49); AST 29 U/L (17-59); African American GFR (CKD) >90 (>60 ml/min/1.73 sqM); Alkaline Phosphatase 84 U/L (38-126); Anion Gap 7 mmol/L; Blood Urea Nitrogen 8 mg/dL (9-20); Calcium 8.6 mg/dL (8.4-10.2); Carbon Dioxide 25 mmol/L (22-30); Chloride 107 mmol/L (98-107); Glucose 76 mg/dL (74-99); Magnesium 1.8 mg/dL (1.6-2.3); Non-African American GFR(CKD) >90 (>60 ml/min/1.73 sqM); Phosphorus 4.4 mg/dL (2.5-4.5); Potassium 4.2 mmol/L (3.5-5.1); Sodium 139 mmol/L (137-145); Total Bilirubin 0.3 mg/dL (0.2-1.3); Total Protein 6.9 g/dL (6.3-8.2)
[2022-05-19] MEDS ORDERED: hydrALAZINE HCL 20 MG/ML 1 ML VIAL IVP STA (00:12)
[2022-05-19] MEDS: SODIUM CHLORIDE 0.9% 1,000 ML IV SCH ×2 (00:56→21:01)
[2022-05-19] MEDS: MORPHINE SULFATE 4 MG/ML SYRINGE IV PRN ×5 (03:03→20:58)
[2022-05-19 07:22] LABS: Basophils # (A) 0.1 k/uL (0-0.2); Basophils % (A) 1 %; Eosinophils # (A) 0.4 k/uL (0-0.7); Eosinophils % (A) 5 %; HCT 38.8 % (39.0-53.0); HGB 13.4 gm/dL (13.0-17.5); Lymphocytes # (A) 1.6 k/uL (1.0-4.8); Lymphocytes % (A) 22 %; MCH 31.9 pg (25.0-35.0); MCHC 34.5 g/dL (31.0-37.0); MCV 92.4 fL (80.0-100.0); Mean Platelet Volume 8.6; Monocytes # (A) 0.6 k/uL (0-1.0); Monocytes % (A) 8 %; Neutrophils # (A) 4.7 k/uL (1.3-7.7); Neutrophils % (A) 63 %; Platelet Count 180 k/uL (150-450); RDW 13.3 % (11.5-15.5); WBC 7.5 k/uL (3.8-10.6)
[2022-05-19 07:40] LABS: ALT 20 U/L (4-49); AST 26 U/L (17-59); African American GFR (CKD) >90 (>60 ml/min/1.73 sqM); Albumin 3.4 g/dL (3.5-5.0); Alkaline Phosphatase 65 U/L (38-126); Anion Gap 3 mmol/L; Blood Urea Nitrogen 9 mg/dL (9-20); Calcium 8.1 mg/dL (8.4-10.2); Carbon Dioxide 27 mmol/L (22-30); Chloride 106 mmol/L (98-107); Glucose 88 mg/dL (74-99); Non-African American GFR(CKD) >90 (>60 ml/min/1.73 sqM); Potassium 4.2 mmol/L (3.5-5.1); Sodium 136 mmol/L (137-145); Total Bilirubin 0.3 mg/dL (0.2-1.3); Total Protein 6.2 g/dL (6.3-8.2)
--- NOTE | 2022-05-19 10:47 | P.GSCN ---
History of Present Illness History of present illness: 51-year-old gentleman patient was seen a few weeks ago at [facility] he came with right foot third toe gangrene patient went for amputation of the third toe patient was on IV antibiotic and was discharged home is sick recommendation today he came his incision site is open up with some minimal drainage patient is an IV antibiotic Medical history history of hypertension and atrial fibrillation psychiatric illness patient is homeless Neck is supple no bruit appreciated Chest is clear first and second sound present Abdomen soft nontender. Her femoral 1+ bilateral right foot third toe stump side and mild drainage noted no redness around noted we will take the culture patient is on Rocephin plan is we placed X a silver should be changed every 48 hours follow with you Past Medical History Past Medical History: Atrial Fibrillation, COPD, Hyperlipidemia, Hypertension, Pneumonia Additional Past Medical History / Comment(s): Other HX; Costochondritis, chronic pain, chronic low back pain with bilateral sciatica, neuropathy bilateral hands/feet, migraines, kidney stones, past partial small bowel obst ruction. HTN the last 10 yrs Stopped taking meds 5 yrs ago. COPD due to tobacco use History of Any Multi-Drug Resistant Organisms: MRSA Year Discovered:: 04/10/18 MDRO Source:: TOE Past Surgical History: Heart Catheterization, Orthopedic Surgery Additional Past Surgical History / Comment(s): 03/14/18 Cardiac cath-normal coronaries, L shoulder rotator cuff repair x2, cervical injection. Past Anesthesia/Blood Transfusion Reactions: No Reported Reaction Past Psychological History: Anxiety, Bipolar, Depression, Schizophrenia Additional Psychological History / Comment(s): Pt was on Mental Health 2 years ago at [facility] for suicidal ideation - Not seeing anyone currently Smoking Status: Current every day smoker Past Alcohol Use History: None Reported Additional Past Alcohol Use History / Comment(s): Started smoking at age 15- smoked 1 ppd but has cut down to 1/2 pack a day Past Drug Use History: Marijuana, Prescription Drug Abuse Additional Drug Use History / Comment(s): Pt smokes marijuana daily, and regular cigarrettes daily - Past Family History Father Family Medical History: Myocardial Infarction ([place]) Additional Family Medical History / Comment(s): mi at age 35, still living Mother Family Medical History: Myocardial Infarction ([place]) Additional Family Medical History / Comment(s): Mother has had at least one [place]- pt unsure at what age. He has not had much contact with his mother since he was 17 yrs old. Medications and Allergies Home Medications Medication Instructions Recorded Confirmed Type Aspirin EC [Ecotrin Low Dose] 81 mg PO DAILY 05/23/21 12/25/21 History Nitroglycerin Sl Tabs [Nitrostat] 0.4 mg SL Q5M PRN 06/28/21 12/25/21 History Rivaroxaban [Xarelto] 20 mg PO W/SUPPER 30 Days #30 tab 07/31/21 12/25/21 Rx Furosemide [Lasix] 40 mg PO BID@0900,1600 30 Days #60 08/04/21 12/25/21 Rx tab Albuterol Sulfate [Proair Hfa] 2 puff INHALATION RT-QID PRN 10/14/21 12/25/21 History Budesonide-Formot 160-4.5 Mcg 2 puff INHALATION RT-BID 10/14/21 12/25/21 History [Symbicort 160-4.5 Mcg Inhaler] Metoprolol Succinate (ER) [Toprol 100 mg PO DAILY 10/14/21 12/25/21 History XL] hydrALAZINE HCL [Apresoline] 100 mg PO TID 10/14/21 12/25/21 History metOLazone [Zaroxolyn] 5 mg PO DAILY #10 tab 10/17/21 12/25/21 Rx HYDROcodone/APAP 10-325MG [Chama 1 tab PO QID 11/20/21 12/25/21 History 10-325] cloNIDine HCL [Catapres] 0.3 mg PO TID 11/20/21 12/25/21 History lisinopriL 40 mg PO DAILY 11/20/21 12/25/21 History Potassium Chloride ER [K-Dur 20] 20 meq PO BID #60 tab 11/23/21 12/25/21 Rx Spironolactone [Aldactone] 25 mg PO DAILY #30 tab 11/23/21 12/25/21 Rx Sacubitril/Valsartan [Entresto 24 1 tab PO BID 12/21/21 12/25/21 History mg-26 mg Tablet] Cephalexin [Keflex] 500 mg PO Q6HR 7 Days #28 cap 03/29/22 Rx Allergies Allergy/AdvReac Type Severity Reaction Status Date / Time ibuprofen [From Motrin] AdvReac Nausea & Verified 05/18/22 20:20 Vomiting simvastatin [From Zocor] AdvReac Dizziness Verified 05/18/22 20:20 Surgical - Exam Vital Signs Temp Pulse Resp BP Pulse Ox 97.6 F 80 18 186/102 99 05/18/22 20:16 05/18/22 20:16 05/18/22 20:16 05/18/22 20:16 05/18/22 20:16 Results - Labs 05/19/22 07:08 05/19/22 07:08 Abnormal Lab Results - Last 24 Hours (Table) 05/18/22 05/19/22 05/19/22 Range/Units 23:09 07:08 07:08 RBC 4.20 L (4.30-5.90) m/uL Hct 38.8 L (39.0-53.0) % Sodium 136 L (137-145) mmol/L BUN 8 L (9-20) mg/dL Calcium 8.1 L (8.4-10.2) mg/dL Total Protein 6.2 L (6.3-8.2) g/dL Albumin 3.4 L (3.5-5.0) g/dL Diabetes panel 05/18/22 05/19/22 Range/Units 23:09 07:08 Sodium 139 136 L (137-145) mmol/L Potassium 4.2 4.2 (3.5-5.1) mmol/L Chloride 107 106 (98-107) mmol/L Carbon Dioxide 25 27 (22-30) mmol/L BUN 8 L 9 (9-20) mg/dL Creatinine 0.67 0.66 (0.66-1.25) mg/dL Glucose 76 88 (74-99) mg/dL Calcium 8.6 8.1 L (8.4-10.2) mg/dL AST 29 26 (17-59) U/L ALT 22 20 (4-49) U/L Alkaline Phosphatase 84 65 (38-126) U/L Total Protein 6.9 6.2 L (6.3-8.2) g/dL Albumin 4.0 3.4 L (3.5-5.0) g/dL Calcium panel 05/18/22 05/19/22 Range/Units 23:09 07:08 Calcium 8.6 8.1 L (8.4-10.2) mg/dL Phosphorus 4.4 (2.5-4.5) mg/dL Albumin 4.0 3.4 L (3.5-5.0) g/dL Pituitary panel 05/18/22 05/19/22 Range/Units 23:09 07:08 Sodium 139 136 L (137-145) mmol/L Potassium 4.2 4.2 (3.5-5.1) mmol/L Chloride 107 106 (98-107) mmol/L Carbon Dioxide 25 27 (22-30) mmol/L BUN 8 L 9 (9-20) mg/dL Creatinine 0.67 0.66 (0.66-1.25) mg/dL Glucose 76 88 (74-99) mg/dL Calcium 8.6 8.1 L (8.4-10.2) mg/dL Adrenal panel 05/18/22 05/19/22 Range/Units 23:09 07:08 Sodium 139 136 L (137-145) mmol/L Potassium 4.2 4.2 (3.5-5.1) mmol/L Chloride 107 106 (98-107) mmol/L Carbon Dioxide 25 27 (22-30) mmol/L BUN 8 L 9 (9-20) mg/dL Creatinine 0.67 0.66 (0.66-1.25) mg/dL Glucose 76 88 (74-99) mg/dL Calcium 8.6 8.1 L (8.4-10.2) mg/dL Total Bilirubin 0.3 0.3 (0.2-1.3) mg/dL AST 29 26 (17-59) U/L ALT 22 20 (4-49) U/L Alkaline Phosphatase 84 65 (38-126) U/L Total Protein 6.9 6.2 L (6.3-8.2) g/dL Albumin 4.0 3.4 L (3.5-5.0) g/dL
[2022-05-19] MEDS ORDERED: NITROGLYCERIN SL TABS 0.4 MG TAB SUBLINGUAL PRN (14:29)
[2022-05-19] MEDS ORDERED: ALBUTEROL NEBULIZED 2.5 MG/3 ML INHALATION PRN (14:29)
[2022-05-19] MEDS: GABAPENTIN 300 MG CAP PO SCH ×2 (16:23→20:59)
[2022-05-19] MEDS: RIVAROXABAN 20 MG TAB PO SCH (18:11)
[2022-05-19] MEDS: HYDROcodone/APAP 10-325MG 1 EACH TAB PO PRN (18:15)
--- NOTE | 2022-05-19 18:44 | PN ---
PROGRESS NOTE DATE OF SERVICE: 05/19/2022 CHIEF COMPLAINT: Wound dehiscence in the right foot. HISTORY OF PRESENT ILLNESS: This gentleman is fairly comfortable. Surgery has evaluated and re-dressed the wound in the right foot. He has no fever or chills. PHYSICAL EXAMINATION: CHEST: Clear. CARDIAC: Unchanged. ABDOMEN: Soft and nontender. EXTREMITIES: There is no bleeding involving the dressings on the right foot. IMPRESSION: 1. Dehiscence of operative site in the right foot. 2. Cardiomyopathy. 3. Coronary artery disease. 4. Atherosclerotic cardiovascular disease. 5. Arrhythmia. PLAN: IV fluids and antibiotics and follow with Surgery and Infectious Disease. MMODL / IJN: [id number] /
--- NOTE | 2022-05-19 19:17 | HP ---
HISTORY AND PHYSICAL CHIEF COMPLAINT: Dehiscence of wound of the right foot following amputation. HISTORY OF PRESENT ILLNESS: This gentleman was at the [facility] being treated for cellulitis of the right foot when he developed cellulitis of the left foot and involvement of the left little toe which had to be amputated. He was home, he was out of the hospital and doing fairly well, but then the wound on the right foot dehisced. He has had no fever or chills. REVIEW OF SYSTEMS: He has a longstanding history of heart disease with cardiomyopathy, coronary artery disease, heart failure, and atrial fibrillation. Remainder of his history is unremarkable. Past medical history, family history, and personal and social histories are all unchanged from his recent admitting and discharge summaries. PHYSICAL EXAMINATION: VITAL SIGNS: He is afebrile. HEAD, EARS, EYES, NOSE, AND THROAT: Normal. CHEST: Clear. CARDIAC: Demonstrates atrial fibrillation. ABDOMEN: Soft and nontender. EXTREMITIES: Normal. The right foot has been assessed by Surgery and then re-dressed. IMPRESSION: Dehiscence of recent operative wound on the right foot. PLAN: Infectious Disease consult as well as Vascular Surgery consult. MMODL / IJN: [id number] /
[2022-05-19] MEDS: hydrALAZINE HCL 25 MG TAB PO SCH (20:59)
[2022-05-20] MEDS: MORPHINE SULFATE 4 MG/ML SYRINGE IV PRN ×6 (01:43→23:18)
[2022-05-20] MEDS: metOLazone 5 MG TAB PO SCH (08:59)
[2022-05-20] MEDS: VALSARTAN 160 MG TAB PO SCH (08:59)
[2022-05-20] MEDS: FUROSEMIDE 40 MG TAB PO SCH (08:59)
[2022-05-20] MEDS: GABAPENTIN 300 MG CAP PO SCH ×3 (09:00→20:48)
[2022-05-20] MEDS: hydrALAZINE HCL 25 MG TAB PO SCH ×2 (09:00→20:48)
[2022-05-20] MEDS: amLODIPine 5 MG TAB PO SCH (09:00)
[2022-05-20] MEDS: ASPIRIN 81 MG PO SCH (09:00)
[2022-05-20] MEDS: METOPROLOL SUCCINATE (ER) 25 MG TAB.ER.24H PO SCH (09:06)
[2022-05-20] MEDS: HYDROcodone/APAP 10-325MG 1 EACH TAB PO PRN ×2 (09:06→17:44)
[2022-05-20] MEDS: RIVAROXABAN 20 MG TAB PO SCH (17:44)
[2022-05-20] MEDS: SODIUM CHLORIDE 0.9% 1,000 ML IV SCH (20:48)
[2022-05-20 20:57] VITALS: RESP 17
[2022-05-21] MEDS: MORPHINE SULFATE 4 MG/ML SYRINGE IV PRN ×4 (03:27→15:16)
[2022-05-21] MEDS: ASPIRIN 81 MG PO SCH (08:55)
[2022-05-21] MEDS: amLODIPine 5 MG TAB PO SCH (08:55)
[2022-05-21] MEDS: GABAPENTIN 300 MG CAP PO SCH ×2 (08:55→16:31)
[2022-05-21] MEDS: hydrALAZINE HCL 25 MG TAB PO SCH (08:55)
[2022-05-21] MEDS: METOPROLOL SUCCINATE (ER) 25 MG TAB.ER.24H PO SCH (08:55)
[2022-05-21] MEDS: FUROSEMIDE 40 MG TAB PO SCH (08:55)
[2022-05-21] MEDS: metOLazone 5 MG TAB PO SCH (08:55)
[2022-05-21] MEDS: VALSARTAN 160 MG TAB PO SCH (08:56)
[2022-05-21] MEDS: HYDROcodone/APAP 10-325MG 1 EACH TAB PO PRN (09:26)
[2022-05-21 09:38] VITALS: PULSE 62
[2022-05-21 15:56] VITALS: BP 130/70; TEMP 97.6
[2022-05-21] MEDS: RIVAROXABAN 20 MG TAB PO SCH (17:18)
--- NOTE | 2022-05-21 19:28 | DS ---
DISCHARGE SUMMARY CHIEF COMPLAINT: Dehiscence of wound infection of the foot. HISTORY OF PRESENT ILLNESS AND PHYSICAL EXAMINATION: Details of this man's history and physical can be found in the initial workup. LABORATORY STUDIES: While he was in the hospital, he had laboratory studies, details of which can be found in the laboratory section of his chart. COURSE IN THE HOSPITAL: After he was admitted, he was seen by Surgery, who dressed his wound dehiscence and it was felt that frequent dressing changes all was necessary. While in the hospital, his medical management was unremarkable. Blood pressure was elevated slightly. Surgery felt that he could be discharged on the and he will go home on his usual activity, diet, and medications and he will follow up in our office in 1 day. FINAL DIAGNOSES: 1. Wound dehiscence of the surgical wound of his foot. 2. Congestive heart failure. 3. Coronary artery disease. OPERATIONS: None. CONSULTATIONS: Surgery. He is improved. MMODL / IJN: [id number] /
[2022-05-21] MEDS ORDERED: hydrALAZINE HCL 50 MG TAB PO SCH (21:00)
--- NOTE | 2022-05-21 22:31 | PN ---
PROGRESS NOTE Mr. Weeks was seen today. This patient had a right foot 2nd toe ray amputation in the past. The patient has been readmitted. He is on IV antibiotic. Today, we have changed the dressing. The wound is healing. We used Aquacel Silver and the patient going home today, advised to change the dressing every 48 hours and the patient will be seen later on in the [facility] on next Saturday. MMODL / IJN: [id number] /
[2022-05-22] MEDS ORDERED: amLODIPine 10 MG TAB PO SCH (09:00)
--- NOTE | 2022-05-22 21:16 | PN ---
PROGRESS NOTE DATE OF SERVICE: 05/20/2022 CHIEF COMPLAINT: Status post dehiscence of wound secondary to foot infection and toe amputation. HISTORY OF PRESENT ILLNESS: This gentleman is doing well. He is not having a lot of pain. He has had no fever, chills, etc. He is receiving frequent dressing changes, and he will stay in the hospital until he is cleared by Surgery. PHYSICAL EXAMINATION: CARDIAC: Unchanged. CHEST: Clear. ABDOMEN: Soft and nontender. EXTREMITIES: The foot is dressed. IMPRESSION: 1. Status post wound infection with dehiscence. 2. Coronary artery disease. 3. Congestive heart failure. 4. Cardiomyopathy. PLAN: He will continue with inpatient dressing changes until he is cleared by Surgery. MMODL / IJN: [id number] /
== END 2022-05-21 18:05 | disposition home or self-care (01) ==
LOC: EC 20:06 → 6NMEDSUR 22:08
PROVIDERS: ADMIT Family Medicine; ATTEND Family Medicine
DX: T81.31XA Disruption of external operation (surgical) wound, not elsewhere classified, initial encounter (principal); T81.41XA Infection following a procedure, superficial incisional surgical site, initial encounter; L03.115 Cellulitis of right lower limb; J44.9 Chronic obstructive pulmonary disease, unspecified; E78.5 Hyperlipidemia, unspecified; I48.91 Unspecified atrial fibrillation; M54.42 Lumbago with sciatica, left side; M54.41 Lumbago with sciatica, right side; G62.9 Polyneuropathy, unspecified; G43.909 Migraine, unspecified, not intractable, without status migrainosus; I25.10 Atherosclerotic heart disease of native coronary artery without angina pectoris; I42.9 Cardiomyopathy, unspecified; I11.0 Hypertensive heart disease with heart failure; I50.9 Heart failure, unspecified; I49.9 Cardiac arrhythmia, unspecified; F20.9 Schizophrenia, unspecified; F31.9 Bipolar disorder, unspecified; F41.9 Anxiety disorder, unspecified; F17.210 Nicotine dependence, cigarettes, uncomplicated; Z59.00 Homelessness unspecified; Z89.421 Acquired absence of other right toe(s); Z79.82 Long term (current) use of aspirin; Z79.51 Long term (current) use of inhaled steroids; Z79.899 Other long term (current) drug therapy; Z79.01 Long term (current) use of anticoagulants; Z88.6 Allergy status to analgesic agent
CPT/HCPCS: 96366 ×4; 96375 ×5; 96365; 99284; 80053 ×2; 83735; 84100; 85025 ×2; 85610; 85730; 87040; 87070; 87205; 87077; 87186; 73630; G0378 ×4; J2270 ×4; J0360; J0696 ×4

== ENCOUNTER 2022-05-28 03:28 | Emergency (ER) | payer OTHER ==
[2022-05-28 03:45] VITALS: BP 162/113; PULSE 100; RESP 18; TEMP 97.7
[2022-05-28] MEDS ORDERED: BACITRACIN OINT 1 EACH PACKET TOPICAL ONE (04:34)
[2022-05-28] MEDS ORDERED: traMADol 50 MG TAB PO STA (04:35)
--- NOTE | 2022-05-28 04:43 | ED ---
Lower Extremity Injury HPI - General Chief Complaint: Extremity Injury, Lower Stated Complaint: RT foot injury Time Seen by Provider: 05/28/22 03:53 Source: patient Limitations: no limitations - History of Present Illness Initial Comments: This patient is a 51-year-old man who is here to have evaluation of his foot. Patient is concerned about possibility of postoperative infection. He did have third toe amputation at [facility], weeks ago. He had follow-up with Dr. Rudd of vascular surgery approximately 10 days ago where he had the wound checked. Patient is not having any systemic symptoms, no fever or chills. No drainage noted. MD Complaint: foot injury -: week(s) Injury: Foot: Right Type of Injury: other (No acute injury) Severity: moderate Improves With: nothing Worsens With: weight bearing - Related Data Home Medications Medication Instructions Recorded Confirmed Aspirin EC [Ecotrin Low Dose] 81 mg PO DAILY 05/23/21 05/19/22 Nitroglycerin Sl Tabs [Nitrostat] 0.4 mg SL Q5M PRN 06/28/21 05/19/22 Albuterol Sulfate [Proair Hfa] 2 puff INHALATION RT-QID PRN 10/14/21 05/19/22 HYDROcodone/APAP 10-325MG [[place] 1 tab PO BID PRN 11/20/21 05/19/22 10-325] Furosemide [Lasix] 40 mg PO DAILY 05/19/22 05/19/22 Gabapentin [Neurontin] 300 mg PO TID 05/19/22 05/19/22 Metoprolol Succinate [Metoprolol 25 mg PO DAILY 05/19/22 05/19/22 Succinate ER] Valsartan [Diovan] 320 mg PO DAILY 05/19/22 05/19/22 amLODIPine [Norvasc] 5 mg PO DAILY 05/19/22 05/19/22 hydrALAZINE HCL [Apresoline] 25 mg PO BID 05/19/22 05/19/22 Previous Rx's Medication Instructions Recorded Rivaroxaban [Xarelto] 20 mg PO W/SUPPER 30 Days #30 tab 07/31/21 metOLazone [Zaroxolyn] 5 mg PO DAILY #10 tab 10/17/21 Allergies Allergy/AdvReac Type Severity Reaction Status Date / Time ibuprofen [From Motrin] AdvReac Nausea & Verified 05/19/22 11:58 Vomiting simvastatin [From Zocor] AdvReac Dizziness Verified 05/19/22 11:58 Review of Systems ROS Statement: Those systems with pertinent positive or pertinent negative responses have been documented in the HPI. ROS Other: All systems not noted in ROS Statement are negative. Constitutional: Denies: fever, chills, weakness Respiratory: Denies: cough, dyspnea Cardiovascular: Denies: chest pain, palpitations Musculoskeletal: Reports: as per HPI, arthralgia Skin: Reports: as per HPI Past Medical History Past Medical History: Atrial Fibrillation, COPD, Hyperlipidemia, Hypertension, Pneumonia Additional Past Medical History / Comment(s): Other HX; Costochondritis, chronic pain, chronic low back pain with bilateral sciatica, neuropathy bilateral hands/feet, migraines, kidney stones, past partial small bowel obstruction. HTN the last 10 yrs Stopped taking meds 5 yrs ago. COPD due to tobacco use History of Any Multi-Drug Resistant Organisms: MRSA Date of last positivie culture/infection: 05/19/22 MDRO Source:: TOE Past Surgical History: Heart Catheterization, Orthopedic Surgery Additional Past Surgical History / Comment(s): 03/14/18 Cardiac cath-normal coronaries, L shoulder rotator cuff repair x2, cervical injection. Past Anesthesia/Blood Transfusion Reactions: No Reported Reaction Past Psychological History: Anxiety, Bipolar, Depression, Schizophrenia Smoking Status: Current every day smoker Past Alcohol Use History: None Reported Past Drug Use History: Marijuana, Prescription Drug Abuse - Past Family History Father Family Medical History: Myocardial Infarction ([place]) Additional Family Medical History / Comment(s): mi at age 35, still living Mother Family Medical History: Myocardial Infarction ([place]) Additional Family Medical History / Comment(s): Mother has had at least one [place]- pt unsure at what age. He has not had much contact with his mother since he was 17 yrs old. General Exam Limitations: no limitations General appearance: alert, in no apparent distress Respiratory exam: Present: normal lung sounds bilaterally. Absent: respiratory distress, wheezes, rales, rhonchi, stridor Cardiovascular Exam: Present: regular rate, normal rhythm, normal heart sounds. Absent: systolic murmur, diastolic murmur, rubs, gallop Skin exam: Present: warm, dry, intact, normal color, other (Patient's foot has normal postoperative appearance. There is an area of dry gangrene to the tip of the second toe, but no evidence of secondary infection, no peripheral drainage, no warmth or erythema.). Absent: rash, erythema Course Vital Signs 05/28/22 03:40 Temperature 97.7 F Pulse Rate 100 Respiratory 18 Rate Blood Pressure 162/113 O2 Sat by Pulse 97 Oximetry Medical Decision Making - Medical Decision Making Patient is 51-year-old man here to have reevaluation of his foot. The patient's foot has normal postsurgical appearance area further discussion revealed that the patient also wanted to get out of the cold for a bit, as patient currently homeless. We discussed appropriate further care and follow-up as well as return parameters. Was pt. sent in by a medical professional or institution? @ -No Did you speak to anyone other than the patient for history? @ -[No Did you review nursing and triage notes? @ -[agree Were old charts reviewed? @ -[Yes Differential Diagnosis? @ -Postoperative infection, frostbite EKG interpreted by me (3pts min.)? @ -[ X-rays interpreted by me (1pt min.)? @ - CT interpreted by me (1pt min.)? @ - U/S interpreted by me (1pt. min.)? @ -[none] What testing was considered but not performed? (CT, X-rays, U/S, labs)? Why? @ [None What meds were considered but not given? Why? @ -[none] Did you discuss the management of the patient with other professionals? @ -[No Did you reconcile home meds? @ -[no Was smoking cessation discussed for >3mins.? @ -[no Was critical care preformed (if so, how long)? @ -[none] Were there social determinants of health that impacted care today? How? (Homelessness, low income, unemployed, alcoholism, drug addiction, transportation, low edu. Level, literacy, decrease access to med. care, fpc, rehab)? @ -[no Was there de-escalation of care discussed even if they declined? (Discuss DNR or withdrawal of care, Hospice)? @ -[No What co-morbidities impacted this encounter? (DM, HTN, Smoking, COPD, CAD, Cancer, CVA, Hep., AIDS, mental health diagnosis, sleep apnea, morbid obesity)? @ -[none Was patient admitted / discharged? @ -[Discharged Undiagnosed new problem with uncertain prognosis? @ -[none] Drug Therapy requiring intensive monitoring for toxicity (Heparin, Nitro, Insulin, Cardizem)? @ -[none] Were any procedures done? @ -[none] Diagnosis/symptom? @ -[Wound check, right foot Acute, or Chronic, or Acute on Chronic? @ -[Acute Uncomplicated (without systemic symptoms) or Complicated (systemic symptoms)? @ -[Uncomplicated Side effects of treatment? @ -[none] Exacerbation, Progression, or Severe Exacerbation] @ -[no] Poses a threat to life or bodily function? @ -[No Disposition Clinical Impression: Visit for wound check Disposition: HOME SELF-CARE Condition: Good Instructions (If sedation given, give patient instructions): Gangrene (DC) Is patient prescribed a controlled substance at d/c from ED?: No Referrals: Clif Glasgow MD [Primary Care Provider] - 1-2 days
== END 2022-05-28 04:46 | disposition home or self-care (01) ==
LOC: EC 03:28
DX: Z48.00 Encounter for change or removal of nonsurgical wound dressing (principal); I48.91 Unspecified atrial fibrillation; J44.9 Chronic obstructive pulmonary disease, unspecified; I10 Essential (primary) hypertension; F41.9 Anxiety disorder, unspecified; F31.9 Bipolar disorder, unspecified; F17.200 Nicotine dependence, unspecified, uncomplicated; F12.90 Cannabis use, unspecified, uncomplicated; Z88.6 Allergy status to analgesic agent; Z88.8 Allergy status to other drugs, medicaments and biological substances; Z79.82 Long term (current) use of aspirin; Z79.899 Other long term (current) drug therapy
CPT/HCPCS: 99283

== ENCOUNTER 2022-07-03 10:52 | Inpatient (IN) | payer OTHER ==
[2022-07-03] MEDS ORDERED: MORPHINE SULFATE 4 MG/ML SYRINGE IVP STA (13:38)
--- NOTE | 2022-07-03 14:19 | XR ---
EXAMINATION TYPE: XR foot complete RT DATE OF EXAM: 07/03/2022 2:10 PM INDICATION: Patient age:Male; 52 years old; Reason for study: pain; COMPARISON: 06/23/2022 TECHNIQUE: The right foot was examined in the AP, oblique, and lateral projections. FINDINGS: Amputation deformity of the third digit proximal phalanx. No evidence of bony erosion. Second digit d istal phalanx demonstrates similar irregular morphology with irregular soft tissue overlying it. No r adiopaque foreign bodies. aNo fracture or dislocation. IMPRESSION: 1. No acute fracture. 2. Amputation deformity without evidence for aggressive bony destruction of the third digit proximal phalanx amputation site. 3. Irregular morphology to the distal phalanx of the second digit correlate for infection/osteomyelit is.
[2022-07-03] MEDS ORDERED: AMPICILLIN-SULBACTAM 3 GM in SODIUM CHLORIDE 0.9% 100 ML IVPB STA (14:34)
[2022-07-03] MEDS ORDERED: VANCOMYCIN IV PER PHARMACY 1 EACH MISC MISCELLANE PRN (14:34)
--- NOTE | 2022-07-03 14:35 | ED ---
Extremity Problem HPI - General Chief complaint: Extremity Problem,Nontraumatic Stated complaint: Gangrene in Foot,Sent by PCP Time Seen by Provider: 07/03/22 12:15 Source: patient Mode of arrival: wheelchair Limitations: no limitations - History of Present Illness Initial comments: 52-year-old male who presents the emergency department reporting right second toe pain. He has been seen in the emergency room and several times for same complaint. He does have gangrene of his right second toe. He was hospitalized on antibiotics and was seen by vascular and infectious disease. He is currently taking Augmentin however states that his pain has been unbearable even though he is on Percocet 5. He denies any fevers. States that he was sent in by his primary care doctor. - Related Data Home Medications Medication Instructions Recorded Confirmed Aspirin EC [Ecotrin Low Dose] 81 mg PO DAILY 05/23/21 07/03/22 Nitroglycerin Sl Tabs [Nitrostat] 0.4 mg SL Q5M PRN 06/28/21 07/03/22 Albuterol Sulfate [Proair Hfa] 2 puff INHALATION RT-QID PRN 10/14/21 07/03/22 Furosemide [Lasix] 40 mg PO DAILY 05/19/22 07/03/22 Gabapentin [Neurontin] 300 mg PO TID 05/19/22 07/03/22 Metoprolol Succinate [Metoprolol 25 mg PO DAILY 05/19/22 07/03/22 Succinate ER] amLODIPine [Norvasc] 5 mg PO DAILY 05/19/22 07/03/22 hydrALAZINE HCL [Apresoline] 25 mg PO BID 05/19/22 07/03/22 Sacubitril/Valsartan [Entresto 24 1 tab PO BID 06/23/22 07/03/22 mg-26 mg Tablet] Amoxic-Pot Clav 875-125Mg 1 tab PO Q12HR 07/03/22 07/03/22 [Augmentin 875-125] oxyCODONE-APAP 5-325MG [Percocet 1 tab PO Q6H PRN 07/03/22 07/03/22 5-325 mg] Previous Rx's Medication Instructions Recorded Rivaroxaban [Xarelto] 20 mg PO W/SUPPER 30 Days #30 tab 07/31/21 metOLazone [Zaroxolyn] 5 mg PO DAILY #10 tab 10/17/21 Allergies Allergy/AdvReac Type Severity Reaction Status Date / Time ibuprofen [From Motrin] AdvReac Nausea & Verified 07/03/22 11:40 Vomiting simvastatin [From Zocor] AdvReac Dizziness Verified 07/03/22 11:40 Review of Systems ROS Statement: Those systems with pertinent positive or pertinent negative responses have been documented in the HPI. ROS Other: All systems not noted in ROS Statement are negative. 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 HTN the last 10 yrs Stopped taking meds 5 yrs ago. COPD due to tobacco use History of Any Multi-Drug Resistant Organisms: MRSA Date of last positivie culture/infection: 05/19/22 MDRO Source:: TOE Past Surgical History: Heart Catheterization, Orthopedic Surgery Additional Past Surgical History / Comment(s): 03/14/18 Cardiac cath-normal coronaries, L shoulder rotator cuff repair x2, cervical injection. Past Anesthesia/Blood Transfusion Reactions: No Reported Reaction Past Psychological History: Anxiety, Bipolar, Depression, Schizophrenia Smoking Status: Current every day smoker Past Alcohol Use History: None Reported Past Drug Use History: Marijuana, Prescription Drug Abuse - Past Family History Father Family Medical History: Myocardial Infarction ([place]) Additional Family Medical History / Comment(s): mi at age 35, still living Mother Family Medical History: Myocardial Infarction ([place]) Additional Family Medical History / Comment(s): Mother has had at least one [place]- pt unsure at what age. He has not had much contact with his mother since he was 17 yrs old. General Exam Limitations: no limitations General appearance: alert, in no apparent distress Respiratory exam: Present: normal lung sounds bilaterally. Absent: respiratory distress, wheezes, rales, rhonchi, stridor Cardiovascular Exam: Present: regular rate, normal rhythm, normal heart sounds. Absent: systolic murmur, diastolic murmur, rubs, gallop, clicks Extremities exam: Present: other (redness and swelling of right second digit with some mummification present. no drainge. 3rd digit amputated) Neurological exam: Present: alert, oriented X3, CN II-XII intact Psychiatric exam: Present: normal affect, normal mood Course Vital Signs 07/03/22 07/03/22 07/03/22 11:10 15:26 16:17 Temperature 98.2 F Pulse Rate 100 81 Respiratory 20 18 Rate Blood Pressure 195/94 169/119 173/117 O2 Sat by Pulse 96 100 Oximetry 07/03/22 16:55 Temperature Pulse Rate 77 Respiratory 20 Rate Blood Pressure 180/109 O2 Sat by Pulse 99 Oximetry Medical Decision Making - Medical Decision Making Was pt. sent in by a medical professional or institution (, [employer]LLISA, [employer]OR[employer]ER, urgent care, hospital, or senior living...) When possible be specific @ -No Did you speak to anyone other than the patient for history (EMS, parent, family, police, friend...)? What history was obtained from this source @ -No Did you review nursing and triage notes (agree or disagree)? Why? @ -I reviewed and agree with nursing and triage notes Were old charts reviewed (outside hosp., previous admission, EMS record, old EKG, old radiological studies, urgent care reports/EKG's, senior living records)? Report findings @ -Old charts were reviewed - specifically the patients most recent discharge summary Differential Diagnosis (chest pain, altered mental status, abdominal pain women, abdominal pain men, vaginal bleeding, weakness, fever, dyspnea, syncope, headache, dizziness, GI bleed, back pain, seizure, CVA, palpatations, mental health)? @ -diabetic ulcer, chronic wound, necrotizing wound, gangrene EKG interpreted by me (3pts min.). @ -No X-rays interpreted by me (1pt min.). @ -Yes CT interpreted by me (1pt min.). @ -None done U/S interpreted by me (1pt. min.). @ -None done What testing was considered but not performed or refused? (CT, X-rays, U/S, labs)? Why? @ -None What meds were considered but not given or refused? Why? @ -None Did you discuss the management of the patient with other professionals (professionals i.e. , MELLISA, [employer]ORCYCLE ASSEMBLER, lab, RT, psych nurse, social services analyst, sports lawyer, teacher, chief business development officer, rn case management)? Give summary @ -Dr. Glasgow Was smoking cessation discussed for >3mins.? @ -No Was critical care preformed (if so, how long)? @ -No Were there social determinants of health that impacted care today? How? (Homel essness, low income, unemployed, alcoholism, drug addiction, transportation, low edu. Level, literacy, decrease access to med. care, [facility], rehab)? @ -Homeless Was there de-escalation of care discussed even if they declined (Discuss DNR or withdrawal of care, Hospice)? DNR status @ -No What co-morbidities impacted this encounter? (DM, HTN, Smoking, COPD, CAD, Cancer, CVA, ARF, Chemo, Hep., AIDS, mental health diagnosis, sleep apnea, morbid obesity)? @ -DM Was patient admitted / discharged? Hospital course, mention meds given and route, prescriptions, significant lab abnormalities, going to OR and other pertinent info. On arrival patient was placed into room 2. A thorough history and physical exam was performed. Laboratory studies are conducted. X-rays performed which demonstrates questionable osteomyelitis. He is started on Unasyn and Vanco. Recommended admission for vascular consult. Dr. Glasgow accepted the admission Undiagnosed new problem with uncertain prognosis? @ -No Drug Therapy requiring intensive monitoring for toxicity (Heparin, Nitro, Insulin, Cardizem)? @ -No Were any procedures done? @ -No Diagnosis/symptom? @ -gangrene right second toe Acute, or Chronic, or Acute on Chronic? @ -chronic Uncomplicated (without systemic symptoms) or Complicated (systemic symptoms)? @ -uncomplicated Side effects of treatment? @ -No Exacerbation, Progression, or Severe Exacerbation? @ -No Poses a threat to life or bodily function? How? (Chest pain, [place], [place], pneumonia, PE, COPD, DKA, ARF, appy, cholecystitis, CVA, Diverticulitis, Homicidal, Suicidal, threat to staff... and all critical care pts) @ -No - Lab Data Result diagrams: 07/03/22 13:36 07/05/22 05:38 Lab Results 07/03/22 07/03/22 Range/Units 13:36 13:36 WBC 8.2 (3.8-10.6) k/uL RBC 5.12 (4.30-5.90) m/uL Hgb 15.9 (13.0-17.5) gm/dL Hct 45.5 (39.0-53.0) % MCV 88.9 (80.0-100.0) fL MCH 31.0 (25.0-35.0) pg MCHC 34.9 (31.0-37.0) g/dL RDW 12.9 (11.5-15.5) % Plt Count 251 (150-450) k/uL MPV 9.4 Neutrophils % 70 % Lymphocytes % 17 % Monocytes % 9 % Eosinophils % 1 % Basophils % 1 % Neutrophils # 5.7 (1.3-7.7) k/uL Lymphocytes # 1.4 (1.0-4.8) k/uL Monocytes # 0.8 (0-1.0) k/uL Eosinophils # 0.1 (0-0.7) k/uL Basophils # 0.1 (0-0.2) k/uL Sodium 136 L (137-145) mmol/L Potassium 4.4 (3.5-5.1) mmol/L Chloride 103 (98-107) mmol/L Carbon Dioxide 23 (22-30) mmol/L Anion Gap 10 mmol/L BUN 9 (9-20) mg/dL Creatinine 0.68 (0.66-1.25) mg/dL Est GFR (CKD-EPI)AfAm >90 (>60 ml/min/1.73 sqM) Est GFR (CKD-EPI)NonAf >90 (>60 ml/min/1.73 sqM) Glucose 84 (74-99) mg/dL Calcium 9.0 (8.4-10.2) mg/dL Total Bilirubin 0.5 (0.2-1.3) mg/dL AST 38 (17-59) U/L ALT 23 (4-49) U/L Alkaline Phosphatase 90 (38-126) U/L Total Protein 7.9 (6.3-8.2) g/dL Albumin 4.4 (3.5-5.0) g/dL Disposition Clinical Impression: Toe gangrene Disposition: ADMITTED IP TO THIS [facility] Condition: Stable Is patient prescribed a controlled substance at d/c from ED?: No Time of Disposition: 14:35 Decision to Admit Reason: Admit from EC Decision Date: 07/03/22 Decision Time: 14:35
[2022-07-03] MEDS ORDERED: VANCOMYCIN 1,500 MG in SODIUM CHLORIDE 0.9% 250 ML IVPB STA (14:37)
[2022-07-03] MEDS ORDERED: NALOXONE 0.4 MG/ML 1 ML VIAL IV PRN (14:37)
[2022-07-03] MEDS ORDERED: ALBUTEROL HFA INHALER INHALATION PRN (15:07)
[2022-07-03 15:08] LABS: ALT 23 U/L (4-49); AST 38 U/L (17-59); African American GFR (CKD) >90 (>60 ml/min/1.73 sqM); Albumin 4.4 g/dL (3.5-5.0); Alkaline Phosphatase 90 U/L (38-126); Anion Gap 10 mmol/L; Blood Urea Nitrogen 9 mg/dL (9-20); Carbon Dioxide 23 mmol/L (22-30); Chloride 103 mmol/L (98-107); Glucose 84 mg/dL (74-99); Non-African American GFR(CKD) >90 (>60 ml/min/1.73 sqM); Potassium 4.4 mmol/L (3.5-5.1); Sodium 136 mmol/L (137-145); Total Bilirubin 0.5 mg/dL (0.2-1.3); Total Protein 7.9 g/dL (6.3-8.2)
[2022-07-03 15:25] LABS: Basophils # (A) 0.1 k/uL (0-0.2); Basophils % (A) 1 %; Eosinophils # (A) 0.1 k/uL (0-0.7); Eosinophils % (A) 1 %; HCT 45.5 % (39.0-53.0); HGB 15.9 gm/dL (13.0-17.5); Lymphocytes # (A) 1.4 k/uL (1.0-4.8); Lymphocytes % (A) 17 %; MCHC 34.9 g/dL (31.0-37.0); MCV 88.9 fL (80.0-100.0); Mean Platelet Volume 9.4; Monocytes # (A) 0.8 k/uL (0-1.0); Monocytes % (A) 9 %; Neutrophils # (A) 5.7 k/uL (1.3-7.7); Neutrophils % (A) 70 %; Platelet Count 251 k/uL (150-450); RBC 5.12 m/uL (4.30-5.90); RDW 12.9 % (11.5-15.5); WBC 8.2 k/uL (3.8-10.6)
[2022-07-03] MEDS ORDERED: hydrALAZINE HCL 50 MG TAB PO STA (15:32)
[2022-07-03] MEDS: GABAPENTIN 300 MG CAP PO SCH ×2 (15:36→21:41)
[2022-07-03] MEDS: oxyCODONE-APAP 5-325MG 1 EACH TAB PO PRN ×2 (16:14→21:41)
[2022-07-03] MEDS ORDERED: hydrALAZINE HCL 20 MG/ML 1 ML VIAL IVP STA (17:21)
[2022-07-03] MEDS: RIVAROXABAN 20 MG TAB PO SCH (18:42)
[2022-07-03] MEDS: SACUBITRIL/VALSARTAN 24 MG-26 MG TABLET PO SCH (21:43)
[2022-07-03] MEDS: hydrALAZINE HCL 25 MG TAB PO SCH (21:43)
[2022-07-04] MEDS: VANCOMYCIN 1,500 MG in SODIUM CHLORIDE 0.9% 250 ML IVPB SCH ×2 (01:12→09:19)
[2022-07-04] MEDS: oxyCODONE-APAP 5-325MG 1 EACH TAB PO PRN ×3 (05:25→18:41)
[2022-07-04] MEDS ORDERED: ACETAMINOPHEN TAB 325 MG TAB PO PRN (08:55)
[2022-07-04] MEDS: amLODIPine 5 MG TAB PO SCH (10:09)
[2022-07-04] MEDS: FUROSEMIDE 40 MG TAB PO SCH (10:09)
[2022-07-04] MEDS: ASPIRIN 81 MG PO SCH (10:09)
[2022-07-04] MEDS: hydrALAZINE HCL 25 MG TAB PO SCH ×2 (10:10→20:41)
[2022-07-04] MEDS: METOPROLOL SUCCINATE (ER) 25 MG TAB.ER.24H PO SCH (10:10)
[2022-07-04] MEDS: GABAPENTIN 300 MG CAP PO SCH ×3 (10:10→20:41)
[2022-07-04] MEDS: SACUBITRIL/VALSARTAN 24 MG-26 MG TABLET PO SCH ×2 (10:11→20:41)
[2022-07-04] MEDS: VANCOMYCIN 1,500 MG in SODIUM CHLORIDE 0.9% 500 ML 500 ML IVPB SCH ×2 (10:42→15:31)
[2022-07-04] MEDS: metOLazone 5 MG TAB PO SCH (11:06)
[2022-07-04] MEDS: HYDROmorphone 1 MG/ML 1 ML SYRINGE IVP PRN ×3 (11:09→20:41)
[2022-07-04 11:11] LABS: African American GFR (CKD) 127.5 (60.0-200.0)
[2022-07-04] MEDS: RIVAROXABAN 20 MG TAB PO SCH (18:25)
[2022-07-04] MEDS ORDERED: VANCOMYCIN TROUGH DUE 1 EACH MISC MISCELLANE ONE (23:00)
[2022-07-05] MEDS: VANCOMYCIN 1,500 MG in SODIUM CHLORIDE 0.9% 500 ML 500 ML IVPB SCH ×3 (00:31→15:41)
[2022-07-05] MEDS: HYDROmorphone 1 MG/ML 1 ML SYRINGE IVP PRN ×4 (00:32→13:42)
--- NOTE | 2022-07-05 07:03 | PN ---
PROGRESS NOTE DATE OF SERVICE: 07/04/2022 CHIEF COMPLAINT: Ischemia and gangrene of the right 2nd toe. HISTORY OF PRESENT ILLNESS: The patient has been seen by Surgery and we are awaiting disposition. It sounds as though Surgery has not planned any further intervention. PHYSICAL EXAMINATION: CHEST: Clear. CARDIAC: Normal. ABDOMEN: Soft, nontender. IMPRESSION: 1. Gangrene of the right second toe. 2. Peripheral vascular occlusive disease with ischemia of both lower extremities. 3. Coronary artery disease. 4. Heart failure. PLAN: If Surgery does not have anything further planned, we will probably be able to be discharged tomorrow. MMODL / IJN: [id number] /
[2022-07-05 08:03] VITALS: RESP 16
[2022-07-05] MEDS: METOPROLOL SUCCINATE (ER) 25 MG TAB.ER.24H PO SCH ×2 (08:06→10:21)
[2022-07-05] MEDS: ASPIRIN 81 MG PO SCH (08:06)
[2022-07-05] MEDS: hydrALAZINE HCL 25 MG TAB PO SCH (08:06)
[2022-07-05] MEDS: GABAPENTIN 300 MG CAP PO SCH ×2 (08:06→15:42)
[2022-07-05] MEDS: SACUBITRIL/VALSARTAN 24 MG-26 MG TABLET PO SCH (08:06)
[2022-07-05] MEDS: FUROSEMIDE 40 MG TAB PO SCH (08:06)
[2022-07-05] MEDS: metOLazone 5 MG TAB PO SCH (08:06)
[2022-07-05] MEDS: oxyCODONE-APAP 5-325MG 1 EACH TAB PO PRN (08:07)
[2022-07-05] MEDS: amLODIPine 5 MG TAB PO SCH (08:07)
[2022-07-05 09:32] LABS: African American GFR (CKD) 127.5 (60.0-200.0)
--- NOTE | 2022-07-05 11:00 | HP ---
HISTORY AND PHYSICAL CHIEF COMPLAINT: Gangrene of the right 2nd toe. HISTORY OF PRESENT ILLNESS: This is another admission for this 52-year-old male, who has had several surgical procedures and amputations on his feet. His second toe has become necrotic. He was just in the hospital recently. Vascular Surgery elected not to remove any more tissues. The intent, I believe, is that this will demarcate. He is homeless, and he came back in because of the pain. He is also concerned about safety considering his psychosocial situation, the weather, etc. REVIEW OF SYSTEMS: He has no other complaints or issues including chest pain, shortness of breath, abdominal pain, fever, chills, etc. He does have advanced coronary artery disease with cardiomyopathy and congestive heart failure. PHYSICAL EXAMINATION: Blood pressure is 130/64 with a pulse 78, respirations of 19. He is afebrile. GENERAL: He appeared to be well developed, well nourished, in no acute distress. SKIN: Color is normal. Skin is warm, dry. HEAD, EARS, EYES, NOSE, MOUTH AND THROAT: Normal. CHEST: Clear. CARDIAC: Demonstrated an S4. ABDOMEN: Soft and nontender. EXTREMITIES: Unchanged from his last exam. He has a recent amputation on that foot and the 2nd toe is necrotic and presents with dry gangrene from the 2nd phalanx distally. NEUROLOGICAL: He is intact. IMPRESSION: 1. Gangrene of the right second toe. 2. Peripheral vascular occlusive disease with recent infections and amputations of the feet. 3. Coronary artery disease with stage 2 congestive heart failure. PLAN: 1. Bed rest. 2. IV fluids. 3. Antibiotics. 4. Consult Vascular Surgery. MMODL / IJN: [id number] /
[2022-07-05 12:55] VITALS: BP 158/75; PULSE 70; TEMP 98.1
--- NOTE | 2022-07-06 19:04 | DS ---
DISCHARGE SUMMARY CHIEF COMPLAINT: Right second toe necrosis and gangrene. HISTORY OF PRESENT ILLNESS AND PHYSICAL EXAMINATION: Details of this man's history and physical can be found in the initial workup. LABORATORY STUDIES: While he was in the hospital, he had laboratory studies, details of which can be found in the laboratory section of his chart. COURSE IN THE HOSPITAL: After admission, he was placed on bedrest, started on intravenous fluids, and he was seen by Vascular Surgery. Some of the necrotic tissue was removed from the end of the toe, and Surgery felt that he could be discharged to outpatient followup. He will go home on his usual activity, diet, and medications and will be followed up in several days. FINAL DIAGNOSES: 1. Ischemia and gangrene of the right second toe. 2. Peripheral vascular occlusive disease. 3. Coronary artery disease. 4. Congestive heart failure. OPERATIONS: None. CONSULTATIONS: Vascular Surgery. CONDITION: He is improved. MMGURMEET / JENNIFER: [id number] /
--- NOTE | 2022-07-19 15:36 | CONS ---
CONSULTATION HISTORY OF PRESENT ILLNESS: This is a 52-year-old gentleman, well known to me from the past. The patient had a right foot third toe amputation done in the past, which is healing good. The patient came with history of second toe. There is a callus formation and also some scab formation noted, but no discharge or redness noted. The incision site from the toe amputation is healing. There are some stitches, we will remove. PAST MEDICAL HISTORY: History of atrial fibrillation, COPD, hyperlipidemia, hypertension. PHYSICAL EXAMINATION: CHEST: Clear. There is good air entry in both lungs. HEART: First and second sounds are normal. ABDOMEN: Soft and nontender. EXTREMITIES: Femorals are 1+. Right foot second toe has some scab formation. No discharge or redness noted. Incision from the toe amputation site is healing good. ASSESSMENT AND PLAN: At this point, we will watch very closely. We have been using Medihoney gel. When it demarcates, then he may lose part of the toe. If the patient is discharged, we can follow up in the office. The patient is on antibiotic under care of Infectious Disease. MMODL / IJN: [id number] /
== END 2022-07-05 17:35 | disposition home or self-care (01) | DRG 197 ==
LOC: EC 10:52 → 5NMEDONC 14:59
PROVIDERS: ADMIT Family Medicine; ATTEND Family Medicine
DX: I70.261 Atherosclerosis of native arteries of extremities with gangrene, right leg (principal); I42.9 Cardiomyopathy, unspecified; I50.9 Heart failure, unspecified; I70.222 Atherosclerosis of native arteries of extremities with rest pain, left leg; E78.5 Hyperlipidemia, unspecified; F17.200 Nicotine dependence, unspecified, uncomplicated; F20.9 Schizophrenia, unspecified; F31.9 Bipolar disorder, unspecified; F41.9 Anxiety disorder, unspecified; I11.0 Hypertensive heart disease with heart failure; I25.10 Atherosclerotic heart disease of native coronary artery without angina pectoris; I48.91 Unspecified atrial fibrillation; G89.29 Other chronic pain; M54.42 Lumbago with sciatica, left side; M54.41 Lumbago with sciatica, right side; G62.9 Polyneuropathy, unspecified; J44.9 Chronic obstructive pulmonary disease, unspecified; Z79.82 Long term (current) use of aspirin; Z79.01 Long term (current) use of anticoagulants; Z59.00 Homelessness unspecified; Z87.01 Personal history of pneumonia (recurrent); Z91.14 Patient's other noncompliance with medication regimen; Z86.14 Personal history of Methicillin resistant Staphylococcus aureus infection; Z88.6 Allergy status to analgesic agent; Z88.8 Allergy status to other drugs, medicaments and biological substances; Z89.432 Acquired absence of left foot; Z89.431 Acquired absence of right foot
CPT/HCPCS: 36415; 80053; 80202; 82565; 85025; 87040; 96365; 96367; 96375; 99285

== ENCOUNTER 2022-07-21 11:53 | Emergency (ER) | payer OTHER ==
--- NOTE | 2022-07-21 12:08 | ED ---
General Adult HPI - General Chief complaint: Extremity Problem,Nontraumatic Stated complaint: Foot Pain Time Seen by Provider: 07/21/22 12:03 Source: patient Mode of arrival: ambulatory Limitations: no limitations - History of Present Illness Initial comments: Patient is a 52-year-old male who presents to the emergency department for right foot pain. Denies injury. Patient has history of diabetes and peripheral vascular disease. He has had several surgical procedures and amputations of his foot. He has amputation of his right third toe. Patient was recently admitted for gangrene and ischemia of the right second toe. Vascular surgery saw him they removed some necrotic tissue and patient was discharged for outpatient follow-up. Patient currently on Augmentin. He has follow-up in the wound clinic. He reports pain in his right foot refractory to Percocet. Denies fever, chills, nausea, vomiting. - Related Data Home Medications Medication Instructions Recorded Confirmed Aspirin EC [Ecotrin Low Dose] 81 mg PO DAILY 05/23/21 07/03/22 Nitroglycerin Sl Tabs [Nitrostat] 0.4 mg SL Q5M PRN 06/28/21 07/03/22 Albuterol Sulfate [Proair Hfa] 2 puff INHALATION RT-QID PRN 10/14/21 07/03/22 Furosemide [Lasix] 40 mg PO DAILY 05/19/22 07/03/22 Gabapentin [Neurontin] 300 mg PO TID 05/19/22 07/03/22 Metoprolol Succinate [Metoprolol 25 mg PO DAILY 05/19/22 07/03/22 Succinate ER] amLODIPine [Norvasc] 5 mg PO DAILY 05/19/22 07/03/22 hydrALAZINE HCL [Apresoline] 25 mg PO BID 05/19/22 07/03/22 Sacubitril/Valsartan [Entresto 24 1 tab PO BID 06/23/22 07/03/22 mg-26 mg Tablet] Amoxic-Pot Clav 875-125Mg 1 tab PO Q12HR 07/03/22 07/03/22 [Augmentin 875-125] oxyCODONE-APAP 5-325MG [Percocet 1 tab PO Q6H PRN 07/03/22 07/03/22 5-325 mg] Previous Rx's Medication Instructions Recorded Rivaroxaban [Xarelto] 20 mg PO W/SUPPER 30 Days #30 tab 07/31/21 metOLazone [Zaroxolyn] 5 mg PO DAILY #10 tab 10/17/21 Allergies Allergy/AdvReac Type Severity Reaction Status Date / Time ibuprofen [From Motrin] AdvReac Nausea & Verified 07/21/22 12:01 Vomiting simvastatin [From Zocor] AdvReac Dizziness Verified 07/21/22 12:01 Review of Systems ROS Statement: Those systems with pertinent positive or pertinent negative responses have been documented in the HPI. ROS Other: All systems not noted in ROS Statement are negative. Past Medical History Past Medical History: Atrial Fibrillation, COPD, Hyperlipidemia, Hypertension, Pneumonia Additional Past Medical History / Comment(s): Other HX; Costochondritis, chronic pain, chronic low back pain with bilateral sciatica, neuropathy bilateral hands/feet, migraines, kidney stones, past partial small bowel obstruction. HTN the last 10 yrs Stopped taking meds 5 yrs ago. COPD due to tobacco use History of Any Multi-Drug Resistant Organisms: MRSA Date of last positivie culture/infection: 05/19/22 MDRO Source:: TOE Past Surgical History: Heart Catheterization, Orthopedic Surgery Additional Past Surgical History / Comment(s): 03/14/18 Cardiac cath-normal coronaries, L shoulder rotator cuff repair x2, cervical injection. Past Anesthesia/Blood Transfusion Reactions: No Reported Reaction Past Psychological History: Anxiety, Bipolar, Depression, Schizophrenia Smoking Status: Current every day smoker Past Alcohol Use History: None Reported Past Drug Use History: Marijuana, Prescription Drug Abuse - Past Family History Father Family Medical History: Myocardial Infarction (RI) Additional Family Medical History / Comment(s): mi at age 35, still living Mother Family Medical History: Myocardial Infarction (RI) Additional Family Medical History / Comment(s): Mother has had at least one RI- pt unsure at what age. He has not had much contact with his mother since he was 17 yrs old. General Exam Limitations: no limitations Head exam: Present: atraumatic, normocephalic, normal inspection Respiratory exam: Present: normal lung sounds bilaterally. Absent: respiratory distress, wheezes, rales, rhonchi, stridor Cardiovascular Exam: Present: regular rate, normal rhythm, normal heart sounds. Absent: systolic murmur, diastolic murmur, rubs, gallop, clicks Right Upper Leg exam: Present: normal inspection, full ROM. Absent: tenderness, swelling Knee exam: Present: normal inspection, full ROM. Absent: tenderness, swelling Lower Leg exam: Present: normal inspection. Absent: full ROM, tenderness Ankle exam: Present: normal inspection, full ROM. Absent: tenderness, swelling Foot/Toe exam: Absent: normal inspection (Second toe scabbing and healing nicely. no evidence of erythema, swelling, warmth, drainage of the toe or foot) Neurovascular tendon exam: Present: no vascular compromise, pulse deficit (DP 2+) Neurological exam: Present: alert, oriented X3, CN II-XII intact Psychiatric exam: Present: normal affect, normal mood Skin exam: Present: warm, dry, intact, normal color. Absent: rash Course Vital Signs 07/21/22 07/21/22 11:59 13:01 Temperature 98.1 F 97.8 F Pulse Rate 87 78 Respiratory 24 16 Rate Blood Pressure 160/119 183/126 O2 Sat by Pulse 99 100 Oximetry Medical Decision Making - Medical Decision Making Was pt. sent in by a medical professional or institution (, PA, INFORMATICS PHYSICIAN, urgent care, hospital, or [place] [facility] facility...) When possible be specific @ -No Did you speak to anyone other than the patient for history (EMS, parent, family, police, friend...)? What history was obtained from this source @ -No Did you review nursing and triage notes (agree or disagree)? Why? @ -I reviewed and agree with nursing and triage notes Were old charts reviewed (outside hosp., previous admission, EMS record, old EKG, old radiological studies, urgent care reports/EKG's, [place] health care facility records)? Report findings @ -No old charts were reviewed Differential Diagnosis (chest pain, altered mental status, abdominal pain women, abdominal pain men, vaginal bleeding, weakness, fever, dyspnea, syncope, headache, dizziness, GI bleed, back pain, seizure, CVA, palpatations, mental health)? @ -cellulitis, gangrene, ulcer EKG interpreted by me (3pts min.). @ -As above X-rays interpreted by me (1pt min.). @ -None done CT interpreted by me (1pt min.). @ -None done U/S interpreted by me (1pt. min.). @ -None done What testing was considered but not performed or refused? (CT, X-rays, U/S, labs)? Why? @ -None What meds were considered but not given or refused? Why? @ -None Did you discuss the management of the patient with other professionals (professionals i.e. , PA, INFORMATICS PHYSICIAN, lab, RT, psych nurse, psychotherapist social worker, admiralty lawyer, teacher, contracts officer, egg caser)? Give summary @ -No Was smoking cessation discussed for >3mins.? @ -No Was critical care preformed (if so, how long)? @ -No Were there social determinants of health that impacted care today? How? (Homelessness, low income, unemployed, alcoholism, drug addiction, transportation, low edu. Level, literacy, decrease access to med. care, [facility], rehab)? @ -No Was there de-escalation of care discussed even if they declined (Discuss DNR or withdrawal of care, Hospice)? DNR status @ -No What co-morbidities impacted this encounter? (DM, HTN, Smoking, COPD, CAD, Cancer, CVA, ARF, Chemo, Hep., AIDS, mental health diagnosis, sleep apnea, morbid obesity)? @ -None Was patient admitted / discharged? Hospital course, mention meds given and route, prescriptions, significant lab abnormalities, going to OR and other pertinent info. @ -Patient presenting for right foot pain. He is well known in our emergency department. Thorough physical exam performed patient has scabbing of the right second toe which is healing nicely. No evidence of infection. No systemic symptoms. Given Toradol and requesting stronger pain medication. I declined giving narcotics as patient has Percocet at home and comes to the emergency department often for pain.Patient will need to follow up with the wound clinic and our primary care provider for further management of pain. Undiagnosed new problem with uncertain prognosis? @ -No Drug Therapy requiring intensive monitoring for toxicity (Heparin, Nitro, Insulin, Cardizem)? @ -No Were any procedures done? @ -No Diagnosis/symptom? @ -right foot pain Acute, or Chronic, or Acute on Chronic? @ -acute Uncomplicated (without systemic symptoms) or Complicated (systemic symptoms)? @ -uncomplicated Side effects of treatment? @ -No] Exacerbation, Progression, or Severe Exacerbation? @ -[No] Poses a threat to life or bodily function? How? (Chest pain, USA, [place], pneumonia, PE, COPD, DKA, ARF, appy, cholecystitis, CVA, Diverticulitis, Homicidal, Suicidal, threat to staff... and all critical care pts) @ -[No] Dr. Thomas is my attending Disposition Clinical Impression: Right foot pain, Drug-seeking behavior Disposition: HOME SELF-CARE Condition: Good Instructions (If sedation given, give patient instructions): Pain Management (ED) Additional Instructions: Follow-up with wound clinic and primary care provider in one to 2 days. Return to the emergency department if you experience new, concerning, or worsening symptoms. Is patient prescribed a controlled substance at d/c from ED?: No Referrals: Clif Glasgow MD [Primary Care Provider] - 1-2 days Time of Disposition: 12:59
[2022-07-21] MEDS ORDERED: KETOROLAC 15 MG/ML 1 ML VIAL IM STA (12:14)
[2022-07-21 13:06] VITALS: BP 183/126; PULSE 78; RESP 16; TEMP 97.8
== END 2022-07-21 13:12 | disposition home or self-care (01) ==
LOC: EC 11:53
DX: M79.671 Pain in right foot (principal); Z76.5 Malingerer [conscious simulation]; I48.91 Unspecified atrial fibrillation; J44.9 Chronic obstructive pulmonary disease, unspecified; I10 Essential (primary) hypertension; F41.9 Anxiety disorder, unspecified; F31.9 Bipolar disorder, unspecified; F17.200 Nicotine dependence, unspecified, uncomplicated; F12.90 Cannabis use, unspecified, uncomplicated; Z79.82 Long term (current) use of aspirin; Z79.899 Other long term (current) drug therapy; Z88.6 Allergy status to analgesic agent
CPT/HCPCS: 99283; 96372; J1885

== ENCOUNTER 2022-08-01 22:08 | Emergency (ER) | payer OTHER ==
[2022-08-01] MEDS ORDERED: KETOROLAC 15 MG/ML 1 ML VIAL IM STA (23:58)
[2022-08-02 00:36] VITALS: BP 153/110; PULSE 62; RESP 16; TEMP 97.6
--- NOTE | 2022-08-02 00:44 | ED ---
General Adult HPI - General Chief complaint: Skin/Abscess/Foreign Body Stated complaint: Right foot pain, Gangrene Time Seen by Provider: 08/01/22 23:39 Source: patient Mode of arrival: ambulatory Limitations: no limitations - History of Present Illness Initial comments: Patient is a 52-year-old male who presents to the emergency department for right foot pain. He denies injury. I evaluated patient 07/21/22 for the same complaint. Patient has history of diabetes and peripheral vascular disease. He has had several surgical procedures and amputations involving the foot. He has amputation of the third right toe. He currently follows with the wound clinic for recent gangrene and ischemia of the right second toe currently on Augmentin. Patient states he ran out of Percocet and has pain in his foot. He denies any new swelling or redness. No fever, chills, nausea, vomiting. - Related Data Home Medications Medication Instructions Recorded Confirmed Aspirin EC [Ecotrin Low Dose] 81 mg PO DAILY 05/23/21 07/03/22 Nitroglycerin Sl Tabs [Nitrostat] 0.4 mg SL Q5M PRN 06/28/21 07/03/22 Albuterol Sulfate [Proair Hfa] 2 puff INHALATION RT-QID PRN 10/14/21 07/03/22 Furosemide [Lasix] 40 mg PO DAILY 05/19/22 07/03/22 Gabapentin [Neurontin] 300 mg PO TID 05/19/22 07/03/22 Metoprolol Succinate [Metoprolol 25 mg PO DAILY 05/19/22 07/03/22 Succinate ER] amLODIPine [Norvasc] 5 mg PO DAILY 05/19/22 07/03/22 hydrALAZINE HCL [Apresoline] 25 mg PO BID 05/19/22 07/03/22 Sacubitril/Valsartan [Entresto 24 1 tab PO BID 06/23/22 07/03/22 mg-26 mg Tablet] Amoxic-Pot Clav 875-125Mg 1 tab PO Q12HR 07/03/22 07/03/22 [Augmentin 875-125] oxyCODONE-APAP 5-325MG [Percocet 1 tab PO Q6H PRN 07/03/22 07/03/22 5-325 mg] Previous Rx's Medication Instructions Recorded Rivaroxaban [Xarelto] 20 mg PO W/SUPPER 30 Days #30 tab 07/31/21 metOLazone [Zaroxolyn] 5 mg PO DAILY #10 tab 10/17/21 Allergies Allergy/AdvReac Type Severity Reaction Status Date / Time ibuprofen [From Motrin] AdvReac Nausea & Verified 08/01/22 22:12 Vomiting simvastatin [From Zocor] AdvReac Dizziness Verified 08/01/22 22:12 Review of Systems ROS Statement: Those systems with pertinent positive or pertinent negative responses have been documented in the HPI. ROS Other: All systems not noted in ROS Statement are negative. Past Medical History Past Medical History: Atrial Fibrillation, COPD, Hyperlipidemia, Hypertension, Pneumonia Additional Past Medical History / Comment(s): Other HX; Costochondritis, chronic pain, chronic low back pain with bilateral sciatica, neuropathy bilateral hands/feet, migraines, kidney stones, past partial small bowel obstruction. HTN the last 10 yrs Stopped taking meds 5 yrs ago. COPD due to tobacco use History of Any Multi-Drug Resistant Organisms: MRSA Date of last positivie culture/infection: 05/19/22 MDRO Source:: TOE Past Surgical History: Heart Catheterization, Orthopedic Surgery Additional Past Surgical History / Comment(s): 03/14/18 Cardiac cath-normal coronaries, L shoulder rotator cuff repair x2, cervical injection. Past Anesthesia/Blood Transfusion Reactions: No Reported Reaction Past Psychological History: Anxiety, Bipolar, Depression, Schizophrenia Smoking Status: Current every day smoker Past Alcohol Use History: None Reported Past Drug Use History: Marijuana, Prescription Drug Abuse - Past Family History Father Family Medical History: Myocardial Infarction ([place]) Additional Family Medical History / Comment(s): mi at age 35, still living Mother Family Medical History: Myocardial Infarction ([place]) Additional Family Medical History / Comment(s): Mother has had at least one NH- pt unsure at what age. He has not had much contact with his mother since he was 17 yrs old. General Exam Limitations: no limitations General appearance: alert, in no apparent distress Respiratory exam: Present: normal lung sounds bilaterally. Absent: respiratory distress, wheezes, rales, rhonchi, stridor Cardiovascular Exam: Present: regular rate, normal rhythm, normal heart sounds. Absent: systolic murmur, diastolic murmur, rubs, gallop, clicks Extremities exam: Present: normal inspection, full ROM, normal capillary refill, other (right foot: third toe amputation. Scabbing of second toe without any evidence of erythema, swelling, warmth, tenderness, fluctuance. DP 2+. Full range of motion) Neurological exam: Present: alert, oriented X3, CN II-XII intact Psychiatric exam: Present: normal affect, normal mood Skin exam: Present: warm, dry, intact, normal color. Absent: rash Course Vital Signs 08/01/22 08/02/22 22:10 00:32 Temperature 97.7 F 97.6 F Pulse Rate 82 62 Respiratory 20 16 Rate Blood Pressure 200/95 153/110 O2 Sat by Pulse 100 100 Oximetry Medical Decision Making - Medical Decision Making Was pt. sent in by a medical professional or institution (MELLISA Baxter, STEAMBLASTER, urgent care, hospital, or prison...) When possible be specific @ -No Did you speak to anyone other than the patient for history (EMS, parent, family, police, friend...)? What history was obtained from this source @ -No Did you review nursing and triage notes (agree or disagree)? Why? @ -I reviewed and agree with nursing and triage notes Were old charts reviewed (outside hosp., previous admission, EMS record, old EKG, old radiological studies, urgent care reports/EKG's, prison records)? Report findings @ -No old charts were reviewed Differential Diagnosis (chest pain, altered mental status, abdominal pain women, abdominal pain men, vaginal bleeding, weakness, fever, dyspnea, syncope, headache, dizziness, GI bleed, back pain, seizure, CVA, palpatations, mental health)? @ -cellulitis, abscess, gangrene, chronic EKG interpreted by me (3pts min.). @ -As above X-rays interpreted by me (1pt min.). @ -None done CT interpreted by me (1pt min.). @ -None done U/S interpreted by me (1pt. min.). @ -None done What testing was considered but not performed or refused? (CT, X-rays, U/S, labs)? Why? @ -None What meds were considered but not given or refused? Why? @ -None Did you discuss the management of the patient with other professionals (professionals i.e. Dr., PA, STEAMBLASTER, lab, RT, psych nurse, protective services social worker, waste cotton cleaner, teacher, patrol community service officer, wrapper caser)? Give summary @ -No Was smoking cessation discussed for >3mins.? @ -No Was critical care preformed (if so, how long)? @ -No Were there social determinants of health that impacted care today? How? (Homelessness, low income, unemployed, alcoholism, drug addiction, transportation, low edu. Level, literacy, decrease access to med. care, assisted, rehab)? @ -No Was there de-escalation of care discussed even if they declined (Discuss DNR or withdrawal of care, Hospice)? DNR status @ -No What co-morbidities impacted this encounter? (DM, HTN, Smoking, COPD, CAD, Ca ncer, CVA, ARF, Chemo, Hep., AIDS, mental health diagnosis, sleep apnea, morbid obesity)? @ -None Was patient admitted / discharged? Hospital course, mention meds given and route, prescriptions, significant lab abnormalities, going to OR and other pertinent info. @ -Patient presenting with pain in his right foot. This pain is chronic. Milla roberson follows with wound clinic. There does not appear to be any acute infection. No systemic symptoms. Patient given Toradol he was again told he cannot come to the emergency department and receive narcotic medication for chronic pain. Patient did have elevated blood pressure no headache no chest pain no SOB he is to follow-up with primary care Undiagnosed new problem with uncertain prognosis? @ -No Drug Therapy requiring intensive monitoring for toxicity (Heparin, Nitro, Insulin, Cardizem)? @ -No Were any procedures done? @ -No Diagnosis/symptom? @ -chronic right foot pain Acute, or Chronic, or Acute on Chronic? @ -chronic Uncomplicated (without systemic symptoms) or Complicated (systemic symptoms)? @ uncomplicated Side effects of treatment? @ -No Exacerbation, Progression, or Severe Exacerbation? @ -No Poses a threat to life or bodily function? How? (Chest pain, [place], [place], pneumonia, PE, COPD, DKA, ARF, appy, cholecystitis, CVA, Diverticulitis, Homicidal, Suicidal, threat to staff... and all critical care pts) @ -No Dr. Baez is my attending Disposition Clinical Impression: Chronic pain in right foot Disposition: HOME SELF-CARE Condition: Good Instructions (If sedation given, give patient instructions): Pain Management (ED) Additional Instructions: Take Tylenol for pain. It is important to follow-up with her primary care provider who can manage your chronic pain. Return to the emergency department if you experience new, concerning, or worsening symptoms. Is patient prescribed a controlled substance at d/c from ED?: No Referrals: Clif Glasgow MD [Primary Care Provider] - 1-2 days
== END 2022-08-02 01:15 | disposition home or self-care (01) ==
LOC: EC 22:08
DX: G89.29 Other chronic pain (principal); M79.671 Pain in right foot; E78.5 Hyperlipidemia, unspecified; I10 Essential (primary) hypertension; J44.9 Chronic obstructive pulmonary disease, unspecified; F12.90 Cannabis use, unspecified, uncomplicated; F17.200 Nicotine dependence, unspecified, uncomplicated; Z88.8 Allergy status to other drugs, medicaments and biological substances; Z79.82 Long term (current) use of aspirin; Z79.899 Other long term (current) drug therapy; Z95.5 Presence of coronary angioplasty implant and graft; Z87.442 Personal history of urinary calculi
CPT/HCPCS: 96372; 99283

== ENCOUNTER 2022-08-13 12:28 | Inpatient (IN) | payer OTHER ==
[2022-08-13] MEDS ORDERED: MORPHINE SULFATE 4 MG/ML SYRINGE IVP STA (13:59)
--- NOTE | 2022-08-13 14:03 | ED ---
Lower Extremity Injury HPI - General Chief Complaint: Extremity Injury, Lower Stated Complaint: Foot Pain Time Seen by Provider: 08/13/22 13:54 Source: patient, RN notes reviewed, old records reviewed Mode of arrival: ambulatory Limitations: no limitations - History of Present Illness Initial Comments: This is a nontoxic-appearing 52-year-old male who presents to the emergency room with swelling, redness and pain to his second toe right foot, concern for osteomyelitis. States increased pain and redness since yesterday. Denies any fevers. No injury. Did undergo amputation third digit right foot in April due to osteomyelitis. Complaint: other (swelling 2nd digit right foot) -: days(s) (1) Improves With: nothing Worsens With: movement, palpation - Related Data Home Medications Medication Instructions Recorded Confirmed Aspirin EC [Ecotrin Low Dose] 81 mg PO DAILY 05/23/21 07/03/22 Nitroglycerin Sl Tabs [Nitrostat] 0.4 mg SL Q5M PRN 06/28/21 07/03/22 Albuterol Sulfate [Proair Hfa] 2 puff INHALATION RT-QID PRN 10/14/21 07/03/22 Furosemide [Lasix] 40 mg PO DAILY 05/19/22 07/03/22 Gabapentin [Neurontin] 300 mg PO TID 05/19/22 07/03/22 Metoprolol Succinate [Metoprolol 25 mg PO DAILY 05/19/22 07/03/22 Succinate ER] amLODIPine [Norvasc] 5 mg PO DAILY 05/19/22 07/03/22 hydrALAZINE HCL [Apresoline] 25 mg PO BID 05/19/22 07/03/22 Sacubitril/Valsartan [Entresto 24 1 tab PO BID 06/23/22 07/03/22 mg-26 mg Tablet] Amoxic-Pot Clav 875-125Mg 1 tab PO Q12HR 07/03/22 07/03/22 [Augmentin 875-125] oxyCODONE-APAP 5-325MG [Percocet 1 tab PO Q6H PRN 07/03/22 07/03/22 5-325 mg] Previous Rx's Medication Instructions Recorded Rivaroxaban [Xarelto] 20 mg PO W/SUPPER 30 Days #30 tab 07/31/21 metOLazone [Zaroxolyn] 5 mg PO DAILY #10 tab 10/17/21 Allergies Allergy/AdvReac Type Severity Reaction Status Date / Time ibuprofen [From Motrin] AdvReac Nausea & Verified 08/01/22 22:12 Vomiting simvastatin [From Zocor] AdvReac Dizziness Verified 08/01/22 22:12 Review of Systems ROS Statement: Those systems with pertinent positive or pertinent negative responses have been documented in the HPI. ROS Other: All systems not noted in ROS Statement are negative. Past Medical History Past Medical History: Atrial Fibrillation, COPD, Hyperlipidemia, Hypertension, Pneumonia Additional Past Medical History / Comment(s): Other HX; Costochondritis, chronic pain, chronic low back pain with bilateral sciatica, neuropathy bilateral hands/feet, migraines, kidney stones, past partial small bowel obstruction. HTN the last 10 yrs Stopped taking meds 5 yrs ago. COPD due to tobacco use History of Any Multi-Drug Resistant Organisms: MRSA Date of last positivie culture/infection: 05/19/22 MDRO Source:: TOE Past Surgical History: Heart Catheterization, Orthopedic Surgery Additional Past Surgical History / Comment(s): 03/14/18 Cardiac cath-normal coronaries, L shoulder rotator cuff repair x2, cervical injection. Past Anesthesia/Blood Transfusion Reactions: No Reported Reaction Past Psychological History: Anxiety, Bipolar, Depression, Schizophrenia Smoking Status: Current every day smoker Past Alcohol Use History: None Reported Past Drug Use History: Marijuana, Prescription Drug Abuse - Past Family History Father Family Medical History: Myocardial Infarction ([place]) Additional Family Medical History / Comment(s): mi at age 35, still living Mother Family Medical History: Myocardial Infarction ([place]) Additional Family Medical History / Comment(s): Mother has had at least one [place]-p t unsure at what age. He has not had much contact with his mother since he was 17 yrs old. General Exam Limitations: no limitations General appearance: alert, in no apparent distress Head exam: Present: atraumatic Eye exam: Present: normal appearance. Absent: scleral icterus, conjunctival injection, periorbital swelling Respiratory exam: Absent: respiratory distress, accessory muscle use Cardiovascular Exam: Present: regular rate Right Foot/Toe exam: Present: tenderness, swelling, erythema (second digit) Neurovascular tendon exam: Absent: abnormal cap refill, extremity cold to touch, pallor, decreased fine/light touch Neurological exam: Present: alert, oriented X3 Psychiatric exam: Present: normal affect, normal mood Skin exam: Present: warm, dry. Absent: cyanosis, diaphoretic, petechiae, pallor Course Vital Signs 08/13/22 13:11 Temperature 98.1 F Pulse Rate 78 Respiratory 18 Rate Blood Pressure 136/86 O2 Sat by Pulse 96 Oximetry Medical Decision Making - Medical Decision Making Labs show no evidence of leukocytosis. Patient is afebrile. X-ray interpreted by me shows concern for osteomyelitis second digit right foot. Radiologist interpretation abnormal soft tissue swelling and bony erosion distal phalanx second digit correlate for osteomyelitis. Patient was started on antibiotics blood cultures were drawn. Patient agreeable to admission. Case discussed with Dr. Diana Was pt. sent in by a medical professional or institution (, [facility], WATER JET OPERATOR, urgent care, hospital, or [facility]...) When possible be specific @ -No Did you speak to anyone other than the patient for history (EMS, parent, family, police, friend...)? What history was obtained from this source @ -No Did you review nursing and triage notes (agree or disagree)? Why? @ -I reviewed and agree with nursing and triage notes Were old charts reviewed (outside hosp., previous admission, EMS record, old EKG, old radiological studies, urgent care reports/EKG's, [facility] records)? Report findings @ -No old charts were reviewed Differential Diagnosis (chest pain, altered mental status, abdominal pain women, abdominal pain men, vaginal bleeding, weakness, fever, dyspnea, syncope, headache, dizziness, GI bleed, back pain, seizure, CVA, palpatations, mental health, musculoskeletal)? @ -Cellulitis, osteomyelitis, fracture, foreign body, this is not an all inclusive list EKG interpreted by me (3pts min.). @ -n/a X-rays interpreted by me (1pt min.). @ -yes as above CT interpreted by me (1pt min.). @ -None done U/S interpreted by me (1pt. min.). @ -None done What testing was considered but not performed or refused? (CT, X-rays, U/S, labs)? Why? @ -None What meds were considered but not given or refused? Why? @ -None Did you discuss the management of the patient with other professionals (professionals i.e. , PA, WATER JET OPERATOR, lab, RT, psych nurse, licensed social worker, circulation manager, teacher, sailing officer, field nurse case manager)? Give summary @ -No Was smoking cessation discussed for >3mins.? @ -No Was critical care preformed (if so, how long)? @ -No Were there social determinants of health that impacted care today? How? (Homelessness, low income, unemployed, alcoholism, drug addiction, transportation, low edu. Level, literacy, decrease access to med. care, half-way, rehab)? @ -No Was there de-escalation of care discussed even if they declined (Discuss DNR or withdrawal of care, Hospice)? DNR status @ -No What co-morbidities impacted this encounter? (DM, HTN, Smoking, COPD, CAD, Cancer, CVA, ARF, Chemo, Hep., AIDS, mental health diagnosis, sleep apnea, morbid obesity)? @ -A. fib, COPD, hypertension Was patient admitted / discharged? Hospital course, mention meds given and route, prescriptions, significant lab abnormalities, going to OR and other pertinent info. @ -Admitted Undiagnosed new problem with uncertain prognosis? @ -No Drug Therapy requiring intensive monitoring for toxicity (Heparin, Nitro, Insulin, Cardizem)? @ -No Were any procedures done? @ -No Diagnosis/symptom? @ -Osteomyelitis right second distal phalanx Acute, or Chronic, or Acute on Chronic? @ -Acute Uncomplicated (without systemic symptoms) or Complicated (systemic symptoms)? @ -Uncomplicated Side effects of treatment? @ -No Exacerbation, Progression, or Severe Exacerbation? @ -No Poses a threat to life or bodily function? How? (Chest pain, [place], DC, pneumonia, PE, COPD, DKA, ARF, appy, cholecystitis, CVA, Diverticulitis, Homicidal, Suicidal, threat to staff... and all critical care pts) @ -No - Lab Data Result diagrams: 08/13/22 14:13 08/13/22 14:13 Lab Results 08/13/22 08/13/22 Range/Units 14:13 14:13 WBC 7.2 (3.8-10.6) k/uL RBC 4.82 (4.30-5.90) m/uL Hgb 15.3 (13.0-17.5) gm/dL Hct 42.5 (39.0-53.0) % MCV 88.0 (80.0-100.0) fL MCH 31.6 (25.0-35.0) pg MCHC 35.9 (31.0-37.0) g/dL RDW 13.4 (11.5-15.5) % Plt Count 202 (150-450) k/uL MPV 9.1 Neutrophils % 73 % Lymphocytes % 13 % Monocytes % 8 % Eosinophils % 4 % Basophils % 0 % Neutrophils # 5.2 (1.3-7.7) k/uL Lymphocytes # 0.9 L (1.0-4.8) k/uL Monocytes # 0.6 (0-1.0) k/uL Eosinophils # 0.3 (0-0.7) k/uL Basophils # 0.0 (0-0.2) k/uL Hyperchromasia Slight Sodium 138 (137-145) mmol/L Potassium 4.5 (3.5-5.1) mmol/L Chloride 105 (98-107) mmol/L Carbon Dioxide 27 (22-30) mmol/L Anion Gap 6 mmol/L BUN 14 (9-20) mg/dL Creatinine 0.68 (0.66-1.25) mg/dL Est GFR (CKD-EPI)AfAm >90 (>60 ml/min/1.73 sqM) Est GFR (CKD-EPI)NonAf >90 (>60 ml/min/1.73 sqM) Glucose 98 (74-99) mg/dL Calcium 8.9 (8.4-10.2) mg/dL Disposition Clinical Impression: Osteomyelitis Disposition: ADMITTED IP TO THIS [facility] Referrals: Clif Glasgow MD [Primary Care Provider] - 1-2 days Decision Date: 08/13/22 Decision Time: 15:34
--- NOTE | 2022-08-13 14:40 | XR ---
EXAMINATION TYPE: XR foot complete RT DATE OF EXAM: 08/13/2022 COMPARISON: NONE HISTORY: Swelling and redness around the second digit TECHNIQUE: Three views are submitted. FINDINGS: There is erosion of the tuft of the distal phalanx second digit abnormal soft tissue attenuation and thickening. There is postsurgical change involving the third digit. Hypertrophic arthropathy of the f irst MTP.. IMPRESSION: 1. Abnormal soft tissue swelling and bony erosion distal phalanx second digit correlate for osteomyel itis.
[2022-08-13 14:43] LABS: African American GFR (CKD) >90 (>60 ml/min/1.73 sqM); Anion Gap 6 mmol/L; Blood Urea Nitrogen 14 mg/dL (9-20); Calcium 8.9 mg/dL (8.4-10.2); Carbon Dioxide 27 mmol/L (22-30); Chloride 105 mmol/L (98-107); Glucose 98 mg/dL (74-99); Non-African American GFR(CKD) >90 (>60 ml/min/1.73 sqM); Potassium 4.5 mmol/L (3.5-5.1); Sodium 138 mmol/L (137-145)
[2022-08-13 15:09] LABS: Basophils % (A) 0 %; Eosinophils # (A) 0.3 k/uL (0-0.7); Eosinophils % (A) 4 %; HCT 42.5 % (39.0-53.0); HGB 15.3 gm/dL (13.0-17.5); Hyperchromasia Slight; Lymphocytes # (A) 0.9 k/uL (1.0-4.8); Lymphocytes % (A) 13 %; MCH 31.6 pg (25.0-35.0); MCHC 35.9 g/dL (31.0-37.0); Mean Platelet Volume 9.1; Monocytes # (A) 0.6 k/uL (0-1.0); Monocytes % (A) 8 %; Neutrophils # (A) 5.2 k/uL (1.3-7.7); Neutrophils % (A) 73 %; Platelet Count 202 k/uL (150-450); RBC 4.82 m/uL (4.30-5.90); RDW 13.4 % (11.5-15.5); WBC 7.2 k/uL (3.8-10.6)
[2022-08-13] MEDS ORDERED: HYDROcodone/APAP 5-325MG 1 EACH TAB PO STA (15:26)
[2022-08-13] MEDS ORDERED: PIPERACILLIN-TAZOBACTAM 3.375 GM in SODIUM CHLORIDE 0.9% 100 ML IVPB STA (15:32)
[2022-08-13] MEDS ORDERED: VANCOMYCIN 1,000 MG in SODIUM CHLORIDE 0.9% 250 ML IVPB STA (15:32)
[2022-08-13] MEDS ORDERED: ACETAMINOPHEN TAB 325 MG TAB PO PRN (15:37)
[2022-08-13] MEDS ORDERED: NALOXONE 0.4 MG/ML 1 ML VIAL IV PRN (15:37)
[2022-08-13] MEDS ORDERED: VANCOMYCIN 1,500 MG in SODIUM CHLORIDE 0.9% 500 ML 500 ML IVPB STA (15:44)
[2022-08-13] MEDS: VANCOMYCIN 1,500 MG in SODIUM CHLORIDE 0.9% 500 ML 500 ML IVPB SCH (18:14)
[2022-08-13] MEDS: MORPHINE SULFATE 4 MG/ML SYRINGE IV PRN ×2 (18:20→22:13)
[2022-08-13] MEDS ORDERED: VANCOMYCIN IV PER PHARMACY 1 EACH MISC MISCELLANE PRN (19:00)
--- NOTE | 2022-08-13 21:24 | P.CONS ---
History of Present Illness - Reason for Consult Consult date: 08/13/22 Osteomyelitis right foot Requesting physician: Serge Rucker - Chief Complaint Right second toe pain swelling x days - History of Present Illness Patient is a 52-year-old male with a past medical history significant for osteomyelitis involving his right third toe back in May 2022 and the patient did have a right third toe amputation done by Dr. Rudd patient subsequently has been admitted to [facility] for right second toe pain and gangrene from 07/03 to 07/05/2022 at that point the patient was evaluated by admitting team and a vascular and no surgical intervention was done I did not see the patient during that admission patient now presenting back to the hospital with worsening pain swelling and redness of his right second toe that has been getting worse over the last few weeks patient be describing the pain to be sharp almost 10 out of 10 severity with no radiation with associated swelling redness do not have any foul-smelling drainage and did have some chills but denies high-grade fever with the symptoms the patient was evaluated by the ER physician on arrival to the ER patient was afebrile and no fever has been recorded subsequently patient did have a normal white count kidney function has been normal patient did have a x-ray of the foot which shows abnormal soft tissue swelling and bony erosion distal phalanx second toe concerning for osteomyelitis patient received a dose of Zosyn and subsequently has been started on vancomycin infectious disease was consulted for further management of antibiotic therapy Review of Systems Positive point has been mentioned in the HPI rest of the systems are negative Past Medical History Past Medical History: Atrial Fibrillation, COPD, Hyperlipidemia, Hypertension, Pneumonia Additional Past Medical History / Comment(s): Other HX; Costochondritis, chronic pain, chronic low back pain with bilateral sciatica, neuropathy bilateral hands/feet, migraines, kidney stones, past partial small bowel obstruction. HTN the last 10 yrs Stopped taking meds 5 yrs ago. COPD due to tobacco use History of Any Multi-Drug Resistant Organisms: MRSA Year Discovered:: 05/19/22 MDRO Source:: TOE Past Surgical History: Heart Catheterization, Orthopedic Surgery Additional Past Surgical History / Comment(s): 03/14/18 Cardiac cath-normal coronaries, L shoulder rotator cuff repair x2, cervical injection. Past Anesthesia/Blood Transfusion Reactions: No Reported Reaction Past Psychological History: Anxiety, Bipolar, Depression, Schizophrenia Smoking Status: Current every day smoker Past Alcohol Use History: None Reported Past Drug Use History: Marijuana, Prescription Drug Abuse - Past Family History Father Family Medical History: Myocardial Infarction ([place]) Additional Family Medical History / Comment(s): mi at age 35, still living Mother Family Medical History: Myocardial Infarction ([place]) Additional Family Medical History / Comment(s): Mother has had at least one [place]- pt unsure at what age. He has not had much contact with his mother since he was 17 yrs old. Medications and Allergies Home Medications Medication Instructions Recorded Confirmed Type Nitroglycerin Sl Tabs [Nitrostat] 0.4 mg SL Q5M PRN 06/28/21 08/13/22 History Rivaroxaban [Xarelto] 20 mg PO W/SUPPER 30 Days #30 tab 07/31/21 08/13/22 Rx Albuterol Sulfate [Proair Hfa] 2 puff INHALATION RT-QID PRN 10/14/21 08/13/22 History Furosemide [Lasix] 40 mg PO DAILY 05/19/22 08/13/22 History Gabapentin [Neurontin] 300 mg PO TID 05/19/22 08/13/22 History Metoprolol Succinate (ER) [Toprol 100 mg PO DAILY 08/13/22 08/13/22 History XL] amLODIPine [Norvasc] 10 mg PO DAILY 08/13/22 08/13/22 History oxyCODONE HCL/ACETAMINOPHEN 1 tab PO Q6HR PRN 08/13/22 08/13/22 History [Percocet 7.5-325 mg] Losartan [Cozaar] 100 mg PO DAILY #10 tab 08/20/22 Rx metroNIDAZOLE [Flagyl] 500 mg PO TID #30 tab 08/20/22 Rx Sulfamethoxazole/Trimethoprim 1 each PO BID #20 tab 08/21/22 Rx [Bactrim Ds Tablet] Allergies Allergy/AdvReac Type Severity Reaction Status Date / Time ibuprofen [From Motrin] AdvReac Nausea & Verified 08/13/22 16:02 Vomiting simvastatin [From Zocor] AdvReac Dizziness Verified 08/13/22 16:02 Physical Exam Vitals: Vital Signs Temp Pulse Resp BP Pulse Ox 08/13/22 16:18 69 18 152/105 98 08/13/22 13:11 98.1 F 78 18 136/86 96 Intake and Output 08/13/22 08/13/22 08/13/22 06:59 14:59 22:59 Other: Weight 97.069 kg GENERAL DESCRIPTION: Middle-aged male lying in bed, no distress. No tachypnea or accessory muscle of respiration use. HEENT: Shows Pallor , no scleral icterus. Oral mucous membrane is dry. No pharyngeal erythema or thrush NECK: Trachea central, no thyromegaly. LUNGS: Unlabored breathing. Clear to auscultation anteriorly. No wheeze or crackle. HEART: S1, S2, regular rate and rhythm. No loud murmur ABDOMEN: Soft, no tenderness , guarding or rigidity, no organomegaly EXTREMITIES: Right second toe was swollen right and tender to touch SKIN: No rash, no masses palpable. NEUROLOGICAL: The patient is awake, alert, oriented x3, mood and affect normal. Results CBC & Chem 7: 08/20/22 03:13 08/20/22 03:13 Labs: Abnormal Lab Results - Last 24 Hours (Table) 08/13/22 Range/Units 14:13 Lymphocytes # 0.9 L (1.0-4.8) k/uL Assessment and Plan (1) Osteomyelitis of second toe of right foot Status: Acute Code(s): M86.9 - OSTEOMYELITIS, UNSPECIFIED SNOMED Code(s): 173014735 Plan: 1patient was in the hospital with right second toe pain swelling redness that has been going on for almost a month now with progressive worsening over the last few weeks with abnormality seen on the plain x-ray concerning for osteomyelitis likely from gram-positive skin joyce in this patient who did have a previous history of MRSA infection likely dealing with the same pathogen 2-vancomycin pharmacy to dose with a target trough of 15 while watching kidney function and Vanco trough closely. 3-vascular surgery evaluation for possible debridement versus amputation We will follow on clinical condition and cultures to further adjust medication if needed Thank you for this consultation we will follow the patient along with you Time with Patient: Greater than 30
[2022-08-14] MEDS: VANCOMYCIN 1,500 MG in SODIUM CHLORIDE 0.9% 500 ML 500 ML IVPB SCH ×3 (05:43→21:40)
[2022-08-14] MEDS: MORPHINE SULFATE 4 MG/ML SYRINGE IV PRN ×5 (05:43→23:37)
[2022-08-14 06:40] LABS: African American GFR (CKD) >90 (>60 ml/min/1.73 sqM); Non-African American GFR(CKD) >90 (>60 ml/min/1.73 sqM)
[2022-08-14] MEDS: HYDROcodone/APAP 5-325MG 1 EACH TAB PO PRN (09:43)
[2022-08-14] MEDS ORDERED: ALBUTEROL SULFATE INHALATION PRN (10:58)
[2022-08-14] MEDS ORDERED: NITROGLYCERIN 0.4 MG SUBLINGUAL PRN (10:58)
[2022-08-14] MEDS ORDERED: NITROGLYCERIN SL TABS 0.4 MG TAB SUBLINGUAL PRN (11:00)
--- NOTE | 2022-08-14 16:17 | P.GSCN ---
History of Present Illness History of present illness: 52-year-old gentleman known me from the past patient is homeless is been admitted his right foot second toe distal phalanx has a dry callus no discharge noted patient has a mild swelling of the second toe and mild redness patient is afebrile under care of infectious disease patient has a surgery for removal of the toe from in the past patient had x-ray of the foot which shows bony erosion of the right foot distal phalanx second toe Medical history history of atrial fibrillation on [place] history of COPD hypertension On examination neck supple no bruit appreciated Chest is clear good and both lungs for pulses second sound present abdomen soft nontender vascular femorals are 1+ bilateral DP 1+ right foot second toe has a hammertoe with the dry scab formation noted Esckailyn also has a left foot medial aspect of the foot small blister we will watch closely Plan is we will hold his arousal toe and we'll continue with IV antibiotic and I have discussed with him in detail we will arrange for right foot second toe amputation patient is agreeable risk and complication discussed Past Medical History Past Medical History: Atrial Fibrillation, COPD, Hyperlipidemia, Hypertension, Pneumonia Additional Past Medical History / Comment(s): Other HX; Costochondritis, chronic pain, chronic low back pain with bilateral sciatica, neuropathy bilateral hands/feet, migraines, kidney stones, past partial small bowel obstruc tion. HTN the last 10 yrs Stopped taking meds 5 yrs ago. COPD due to tobacco use History of Any Multi-Drug Resistant Organisms: MRSA Year Discovered:: 05/19/22 MDRO Source:: TOE Past Surgical History: Heart Catheterization, Orthopedic Surgery Additional Past Surgical History / Comment(s): 03/14/18 Cardiac cath-normal coronaries, L shoulder rotator cuff repair x2, cervical injection. Past Anesthesia/Blood Transfusion Reactions: No Reported Reaction Past Psychological History: Anxiety, Bipolar, Depression, Schizophrenia Smoking Status: Current every day smoker Past Alcohol Use History: None Reported Past Drug Use History: Marijuana, Prescription Drug Abuse - Past Family History Father Family Medical History: Myocardial Infarction ([place]) Additional Family Medical History / Comment(s): mi at age 35, still living Mother Family Medical History: Myocardial Infarction ([place]) Additional Family Medical History / Comment(s): Mother has had at least one [place]- pt unsure at what age. He has not had much contact with his mother since he was 17 yrs old. Medications and Allergies Home Medications Medication Instructions Recorded Confirmed Type Nitroglycerin Sl Tabs [Nitrostat] 0.4 mg SL Q5M PRN 06/28/21 08/13/22 History Rivaroxaban [Xarelto] 20 mg PO W/SUPPER 30 Days #30 tab 07/31/21 08/13/22 Rx Albuterol Sulfate [Proair Hfa] 2 puff INHALATION RT-QID PRN 10/14/21 08/13/22 History Furosemide [Lasix] 40 mg PO DAILY 05/19/22 08/13/22 History Gabapentin [Neurontin] 300 mg PO TID 05/19/22 08/13/22 History Metoprolol Succinate (ER) [Toprol 100 mg PO DAILY 08/13/22 08/13/22 History Xl] amLODIPine [Norvasc] 10 mg PO DAILY 08/13/22 08/13/22 History oxyCODONE HCL/ACETAMINOPHEN 1 tab PO Q6HR PRN 08/13/22 08/13/22 History [Percocet 7.5-325 mg] Allergies Allergy/AdvReac Type Severity Reaction Status Date / Time ibuprofen [From Motrin] AdvReac Nausea & Verified 08/13/22 16:02 Vomiting simvastatin [From Zocor] AdvReac Dizziness Verified 08/13/22 16:02 Surgical - Exam Vital Signs Temp Pulse Resp BP Pulse Ox 98.1 F 78 18 136/86 96 08/13/22 13:11 08/13/22 13:11 08/13/22 13:11 08/13/22 13:11 08/13/22 13:11 Results - Labs 08/13/22 14:13 08/14/22 06:06 Abnormal Lab Results - Last 24 Hours (Table) 08/14/22 Range/Units 06:06 Creatinine 0.64 L (0.66-1.25) mg/dL Diabetes panel 08/14/22 Range/Units 06:06 Creatinine 0.64 L (0.66-1.25) mg/dL Pituitary panel 08/14/22 Range/Units 06:06 Creatinine 0.64 L (0.66-1.25) mg/dL Adrenal panel 08/14/22 Range/Units 06:06 Creatinine 0.64 L (0.66-1.25) mg/dL
[2022-08-14] MEDS: GABAPENTIN 300 MG CAP PO SCH ×2 (16:31→21:40)
[2022-08-14] MEDS: RIVAROXABAN 20 MG TAB PO SCH (17:44)
--- NOTE | 2022-08-14 19:18 | P.PN ---
Subjective Progress Note Date: 08/14/22 Principal diagnosis: Right second toe osteomyelitis Patient is a 52-year-old male with a past medical history significant for right third toe osteomyelitis status post amputation of the right third toe in May 2049 subsequent presented to the hospital with right second toe pain and gangrene and significant worsening over the last few days x-rays were suggestive of ostomy myelitis involving the distal phalanx. On today's evaluation that is 08/14/2022, the patient denies having any fever or any chills, still complaining of significant pain to his right second toe which remains to be swollen and red no drainage and no chest pain shortness of breath or cough and no diarrhea Objective - Vital Signs Vital signs: Vital Signs Temp 97.6 F 08/14/22 07:55 Pulse 51 L 08/14/22 07:55 Resp 16 08/14/22 07:55 BP 163/79 08/14/22 07:55 Pulse Ox 99 08/14/22 07:55 FiO2 Intake & Output 08/13/22 08/14/22 08/14/22 18:59 06:59 18:59 Intake Total 950 Balance 950 Weight 97.069 kg Intake: Oral 950 Other: # Voids 1 2 - Exam GENERAL DESCRIPTION: Middle-age male lying in bed in no distress RESPIRATORY SYSTEM: Unlabored breathing , decreased breath sounds at bases HEART: S1 S2 regular rate and rhythm , ABDOMEN: Soft , no tenderness EXTREMITIES: Right second toe is swollen and red painful to touch - Labs CBC & Chem 7: 08/13/22 14:13 08/14/22 06:06 Labs: Abnormal Lab Results - Last 24 Hours (Table) 08/13/22 08/14/22 Range/Units 14:13 06:06 Lymphocytes # 0.9 L (1.0-4.8) k/uL Creatinine 0.64 L (0.66-1.25) mg/dL Assessment and Plan (1) Toe osteomyelitis, right Current Visit: Yes Status: Acute Code(s): M86.9 - OSTEOMYELITIS, UNSPECIFIED SNOMED Code(s): 329159581 Plan: 1patient was in the hospital with right second toe pain swelling redness that has been going on for almost a month now with progressive worsening over the last few weeks with abnormality seen on the plain x-ray concerning for osteomyelitis likely from gram-positive skin joyce in this patient who did have a previous history of MRSA infection likely dealing with the same pathogen 2-patient to continue with vancomycin pharmacy to dose with a target trough of 15 while watching kidney function and Vanco trough closely. 3-await vascular surgery evaluation for possible debridement versus amputation Time with Patient: Less than 30
[2022-08-14] MEDS: oxyCODONE-APAP 7.5-325MG 1 EACH TAB PO PRN (21:39)
--- NOTE | 2022-08-14 23:11 | HP ---
HISTORY AND PHYSICAL CHIEF COMPLAINT: Pain and swelling in the right foot. HISTORY OF PRESENT ILLNESS: Another of many recent admissions for this 52-year-old white male, who has coronary artery disease, atherosclerotic cardiomyopathy, and congestive heart failure. He has also been having a lot of trouble with infections in both feet. He has been admitted several times over the last several years for treatment of cellulitis and occasional resulting partial amputation of toes. He noticed pain and swelling in the right foot and came to emergency room, where it looks as though he has cellulitis and probable abscess in the base of the second and third toes. REVIEW OF SYSTEMS: He has had no chills or fever. He denies any chest pain, palpitations, syncope, orthopnea, PND, etc. Past medical history, family history, and personal and social histories are all otherwise found in detail in his previous admitting and discharge summaries. ALLERGIES: He is allergic to 1. Motrin. 2. Cymbalta. 3. Zocor. MEDICATIONS: He is on: 1. Metoprolol. 2. Oxycodone. 3. Amlodipine. 4. Gabapentin. 5. Xarelto. 6. Aspirin. Remainder of his history is unremarkable. He still continues to smoke. He does not drink. PHYSICAL EXAMINATION: VITAL SIGNS: Blood pressure 164/94 with a pulse of 89 and regular, respirations of 34, and he is afebrile. GENERAL: He appeared to be slightly disheveled. HEAD, EARS, EYES, NOSE, MOUTH, AND THROAT: Normal. NECK: Neck veins are not distended. CHEST: Clear with decreased breath sounds. CARDIAC: Demonstrates sinus rhythm with no extra sounds. There was a systolic murmur. ABDOMEN: Soft and nontender. EXTREMITIES: Demonstrate the evidence of his prior surgeries on the toes. It looked as though he has an abscess of the base of the right second and third toes. NEUROLOGIC: He is intact. IMPRESSION: 1. Abscess of the right foot. 2. History of cellulitis of both feet with several amputations of toes. 3. Atherosclerotic cardiomyopathy. 4. Congestive heart failure. PLAN: 1. Bed rest. 2. IV fluids. 3. IV antibiotics. 4. Consult with Vascular Surgery. MMODL / IJN: [id number] /
--- NOTE | 2022-08-14 23:20 | PN ---
PROGRESS NOTE DATE OF SERVICE: 08/14/2022 CHIEF COMPLAINT: Cellulitis and abscess of the distal right foot. HISTORY OF PRESENT ILLNESS: This gentleman is in some discomfort and awaits his Vascular Surgery evaluation. He will likely require an I and D. PHYSICAL EXAMINATION: VITAL SIGNS: Normal. CHEST: Clear CARDIAC: Normal. ABDOMEN: Soft and nontender. EXTREMITIES: Right foot is unchanged. IMPRESSION: 1. Abscess of the right foot. 2. Cellulitis. 3. Rule out osteomyelitis. 4. Coronary artery disease. 5. Cardiomyopathy. 6. Congestive heart failure. PLAN: Await Vascular Surgery consult. MMODL / IJN: [id number] /
[2022-08-15] MEDS: MORPHINE SULFATE 4 MG/ML SYRINGE IV PRN ×4 (03:31→21:24)
[2022-08-15] MEDS ORDERED: VANCOMYCIN TROUGH DUE 1 EACH MISC MISCELLANE ONE (05:00)
[2022-08-15] MEDS: VANCOMYCIN 1,500 MG in SODIUM CHLORIDE 0.9% 500 ML 500 ML IVPB SCH ×3 (05:58→21:29)
[2022-08-15] MEDS: oxyCODONE-APAP 7.5-325MG 1 EACH TAB PO PRN ×3 (06:12→19:26)
[2022-08-15 07:40] LABS: African American GFR (CKD) >90 (>60 ml/min/1.73 sqM); Anion Gap 4 mmol/L; Blood Urea Nitrogen 12 mg/dL (9-20); Carbon Dioxide 24 mmol/L (22-30); Chloride 107 mmol/L (98-107); Glucose 82 mg/dL (74-99); Non-African American GFR(CKD) >90 (>60 ml/min/1.73 sqM); Potassium 4.1 mmol/L (3.5-5.1); Sodium 135 mmol/L (137-145)
[2022-08-15] MEDS: FUROSEMIDE 40 MG TAB PO SCH (08:07)
[2022-08-15] MEDS: amLODIPine 10 MG TAB PO SCH (08:07)
[2022-08-15] MEDS: METOPROLOL SUCCINATE (ER) 100 MG TAB.ER.24H PO SCH (08:09)
[2022-08-15] MEDS: GABAPENTIN 300 MG CAP PO SCH ×3 (10:01→21:25)
[2022-08-15] MEDS: HYDROcodone/APAP 5-325MG 1 EACH TAB PO PRN (11:11)
--- NOTE | 2022-08-15 11:27 | CDI ---
Documentation Clarification Form Date: 08/15/2022 11:12:06 AM From: Kasey Bell RN, CCDS Admit Date: 08/13/2022 3:46:00 PM Patient Name: Micky Webb Visit Number: [id number] Discharge Date: ATTENTION: The Clinical Documentation Specialists (CDI) and [facility] Coding Staff appreciate your assistance in clarifying documentation. Please respond to the clarification below the line at the bottom and electronically sign. The CDI & [facility] Coding staff will review the response and follow-up if needed. Please note: Queries are made part of the Legal Health Record. If you have any questions, please contact the author of this message via ITS. Dr. Pooja Stauffer Osteomyelitis is documented in the ID consult and subsequent progress notes. Additional clarification regarding the cause and acuity of the osteomyelitis is requested. History/Risk Factors: Atrial Fibrillation, COPD, hyperlipidemia, Hypertension Neuropathy bilateral hands/feet, Right 3rd toe amputation, Current every day smoker, Marijuana, Prescription Drug abuse Clinical Indicators: 52-year-old male with past medical history of right third toe osteomyelitis post amputation. He presents with worsening right second toe pain and gangrene. 08/13 Vital signs: 136/86 78 18 98.1 08/13 Labs: WBC 7.2 BUN 14, Cr 0.68 08/13 Right Foot XR: Abnormal soft tissue swelling and bony erosion distal phalanx second digit correlate for osteomyelitis. Treatment: Vancomycin HCL 1, 1500 IVPB Q 12, 08/13-08/14, change to Q 8 HRS (PTD) 08/14-08/15 Please clarify the acuity and etiology of the osteomyelitis, if known: Acuity: [ x ] Acute osteomyelitis [ ] Chronic osteomyelitis [ ] Subacute osteomyelitis [ ] Unable to Determine Cause: [ ] Viral (specify organism if know): [ x ] Bacterial (specify organism if know):_cultures pending [ ] Other (please specify): (Template Last Revised: July 2020) MTDD
--- NOTE | 2022-08-15 11:57 | CDI ---
Documentation Clarification Form Date: 08/15/2022 11:28:52 AM From: Kasey Bell RN, CCDS Admit Date: 08/13/2022 3:46:00 PM Patient Name: Micky Webb Visit Number: [id number] Discharge Date: ATTENTION: The Clinical Documentation Specialists (CDI) and [facility] Coding Staff appreciate your assistance in clarifying documentation. Please respond to the clarification below the line at the bottom and electronically sign. The CDI & [facility] Coding staff will review the response and follow-up if needed. Please note: Queries are made part of the Legal Health Record. If you have any questions, please contact the author of this message via ITS. Dr. Clif Glasgow There is documentation of rule out osteomyelitis, in the progress note on 08/14/22. Additional clarification is requested. History/Risk Factors: Atrial Fibrillation, COPD, hyperlipidemia, Hypertension Clinical Indicators: 52-year-old male with past medical history of right third toe osteomyelitis post amputation. He presents with worsening right second toe pain and gangrene. 08/13 Vital signs: 136/86 78 18 98.1 08/13 Labs: WBC 7.2 BUN 14, Cr 0.68 08/13 Right Foot XR: Abnormal soft tissue swelling and bony erosion distal phalanx second digit correlate for osteomyelitis. 08/14 Vascular consult: Patient had x-ray of the foot which shows bony erosion of the right foot distal phalanx second toe. We will continue with IV antibiotic and I have discussed with him in detail we will arrange for right foot second toe amputation patient is agreeable risk and complications discussed. Treatment: Vancomycin HCL 1, 1500 IVPB Q 12, 08/13-08/14, change to Q 8 HRS (PTD) 08/14-08/15 Can you please further clarify Osteomyelitis right second toe? [ ] Osteomyelitis right second toe ruled in [ ] Osteomyelitis right second toe ruled out [ ] Other, please specify [ ] Unable to determine (Template Last Revised: July 2020) MTDD
--- NOTE | 2022-08-15 12:12 | CDI ---
Documentation Clarification Form Date: 08/15/2022 12:05:21 PM From: Kasey Bell RN, CCDS Admit Date: 08/13/2022 3:46:00 PM Patient Name: Micky Webb Visit Number: [id number] Discharge Date: ATTENTION: The Clinical Documentation Specialists (CDI) and [facility] Coding Staff appreciate your assistance in clarifying documentation. Please respond to the clarification below the line at the bottom and electronically sign. The CDI & [facility] Coding staff will review the response and follow-up if needed. Please note: Queries are made part of the Legal Health Record. If you have any questions, please contact the author of this message via ITS. Dr. Clif Glasgow Atrial Fibrillation is documented in the patient past medical history. Additional clarification regarding the type of atrial fibrillation is requested. History/Risk Factors: Atrial Fibrillation, COPD, hyperlipidemia, Hypertension, CHF Clinical Indicators: 52-year-old male with past medical history of right third toe osteomyelitis post amputation. He presents with worsening right second toe pain and gangrene. He has history of atrial fibrillation with ongoing treatment. 08/13 Vital signs: 136/86 78 18 98.1 Treatment: Xarelto 20 MP PO W/Supper 08/14 Please clarify the type of atrial fibrillation, if known: [ ] Chronic [ ] Permanent [ ] Paroxysmal [ ] Persistent [ ] Other, please specify [ ] Unable to determine (Template Last Revised: September 2020) MTDD
--- NOTE | 2022-08-15 12:55 | CDI ---
Documentation Clarification Form Date: 08/15/2022 12:18:00 PM From: Kasey Bell RN, CCDS Admit Date: 08/13/2022 3:46:00 PM Patient Name: Micky Webb Visit Number: [id number] Discharge Date: ATTENTION: The Clinical Documentation Specialists (CDI) and [facility] Coding Staff appreciate your assistance in clarifying documentation. Please respond to the clarification below the line at the bottom and electronically sign. The CDI & [facility] Coding staff will review the response and follow-up if needed. Please note: Queries are made part of the Legal Health Record. If you have any questions, please contact the author of this message via ITS. Dr. Clif Glasgow Your patient has the documented diagnosis of unspecified CHF per H/P and subsequent progress notes. Additional information regarding the [type, acuity] of CHF is requested. History/Risk Factors: Atrial Fibrillation, COPD, hyperlipidemia, Hypertension, CHF Clinical Indicators: 52-year-old male with past medical history of right third toe osteomyelitis post amputation. He presents with worsening right second toe pain and gangrene. H/P documents he has coronary artery disease, atherosclerotic cardiomyopathy and congestive heart failure with ongoing treatment. 08/13 Vital signs: 136/86 78 18 98.1 Echocardiogram Results: (Last reported 10/17/2021) Left ventricular is at upper limits of normal with global decrease in contractility estimated ejection fraction of about 30-35 % There is a right ventricular enlargement noted. Treatment: Lasix 40 MG PO Daily In your professional opinion, can you please clarify the [acuity and type] of CHF if known? [ ] Chronic Systolic Heart Failure (reduced EF) [ ] Other, please specify [ ] Unable to determine (Template Last Revised: June 2020) MTDD
--- NOTE | 2022-08-15 15:01 | P.PN ---
Subjective Progress Note Date: 08/15/22 Principal diagnosis: Right second toe osteomyelitis Patient is a 52-year-old male with a past medical history significant for right third toe osteomyelitis status post amputation of the right third toe in May 2049 subsequent presented to the hospital with right second toe pain and gangrene and significant worsening over the last few days x-rays were suggestive of ostomy myelitis involving the distal phalanx. On today's evaluation that is 08/15/2022, the patient remains to be afebrile, the patient continued to be complaining of significant pain to his right second toe and asking for more pain medication, the patient denies chest pain shortness of breath or cough and no diarrhea Objective - Vital Signs Vital signs: Vital Signs Temp 98.0 F 08/15/22 07:53 Pulse 53 L 08/15/22 07:53 Resp 15 08/15/22 07:53 BP 169/99 08/15/22 07:53 Pulse Ox 100 08/15/22 07:53 FiO2 Intake & Output 08/14/22 08/15/22 08/15/22 18:59 06:59 18:59 Other: Voiding Method Toilet # Voids 2 3 1 - Exam GENERAL DESCRIPTION: Middle-age male lying in bed in no distress RESPIRATORY SYSTEM: Unlabored breathing , decreased breath sounds at bases HEART: S1 S2 regular rate and rhythm , ABDOMEN: Soft , no tenderness EXTREMITIES: Right second toe is swollen and red painful to touch - Labs CBC & Chem 7: 08/13/22 14:13 08/15/22 05:19 Labs: Abnormal Lab Results - Last 24 Hours (Table) 08/15/22 Range/Units 05:19 Sodium 135 L (137-145) mmol/L Creatinine 0.61 L (0.66-1.25) mg/dL Calcium 8.0 L (8.4-10.2) mg/dL Microbiology - Last 24 Hours (Table) 08/13/22 16:18 Blood Culture - Preliminary Blood No Growth after 24 hours 08/13/22 16:08 Blood Culture - Preliminary Blood No Growth after 24 hours Assessment and Plan (1) Toe osteomyelitis, right Current Visit: Yes Status: Acute Code(s): M86.9 - OSTEOMYELITIS, UNSPECIFIED SNOMED Code(s): 982324600 Plan: 1patient was in the hospital with right second toe pain swelling redness that has been going on for almost a month now with progressive worsening over the last few weeks with abnormality seen on the plain x-ray concerning for osteomyelitis likely from gram-positive skin joyce in this patient who did have a previous history of MRSA infection likely dealing with the same pathogen 2-patient to continue with vancomycin pharmacy to dose with a target trough of 15 while watching kidney function and Vanco trough closely. Patient has been evaluated by vascular surgery and clinic for amputation of the right second toe this afternoon per patient, deep culture should be obtained Time with Patient: Less than 30
[2022-08-15] MEDS ORDERED: ONDANSETRON 4 MG/2 ML VIAL ONE (15:05)
[2022-08-15] MEDS ORDERED: ONDANSETRON 4 MG/2 ML VIAL IVP ONE (15:13)
[2022-08-15] MEDS ORDERED: fentaNYL (PF) 50 MCG/1 ML VIAL IVP ONE ×2 (15:13→15:31)
[2022-08-15] MEDS ORDERED: LACTATED RINGERS 1,000 ML IV ONE (15:13)
[2022-08-15] MEDS ORDERED: DEXAMETHASONE SOD PHOSPHATE 4 MG/ML 1 ML VIAL IVP ONE (15:13)
[2022-08-15] MEDS ORDERED: fentaNYL (PF) 50 MCG/ML 2 ML AMP ONE (15:40)
[2022-08-15] MEDS ORDERED: PROPOFOL 10 MG/ML 20 ML VIAL IV ONE (15:40)
[2022-08-15] MEDS ORDERED: KETAMINE 10 MG/ML 20 ML VIAL ONE (15:40)
[2022-08-15] MEDS ORDERED: MIDAZOLAM 2 MG/2 ML VIAL ONE (15:40)
[2022-08-15] MEDS ORDERED: BUPIVACAINE (PF) 0.25% 30 ML VIAL SQ ONE (15:52)
[2022-08-15] MEDS ORDERED: HYDROmorphone 0.5 MG/0.5 ML SYRINGE IVP ONE (16:32)
[2022-08-15] MEDS: RIVAROXABAN 20 MG TAB PO SCH (17:30)
--- NOTE | 2022-08-15 21:12 | OP ---
OPERATIVE REPORT DATE OF SERVICE : PREOPERATIVE DIAGNOSIS: Gangrene of the right foot with osteomyelitis. PROCEDURE PERFORMED: Amputation of the right foot second toe. DESCRIPTION OF PROCEDURE: This patient was brought to the operating room. Under local IV sedation, the right foot was prepped, and drapes were applied in a sterile manner. An elliptical incision was made on the dorsal aspect of the foot, went circumferentially around the toe on the plantar aspect, deepened through skin and fat. Plantar and dorsal aspect tendons were divided. There were digital vessels which were electrocoagulated and suture ligated. Some ligaments from the metatarsophalangeal joint were divided. Specimen was removed and sent for deep culture. The wound was copiously irrigated with hydrogen peroxide and saline. Hemostasis was well controlled. The incision was closed in 2 layers of 0 Vicryl, and skin was closed with 3-0 nylon with interrupted suture. Dressing was applied. The patient tolerated the procedure well. MMODL / IJN: [id number] /
[2022-08-16] MEDS: MORPHINE SULFATE 4 MG/ML SYRINGE IV PRN ×6 (01:14→23:04)
[2022-08-16] MEDS: oxyCODONE-APAP 7.5-325MG 1 EACH TAB PO PRN ×4 (04:22→22:23)
[2022-08-16] MEDS: VANCOMYCIN 1,500 MG in SODIUM CHLORIDE 0.9% 500 ML 500 ML IVPB SCH ×3 (06:17→22:24)
[2022-08-16] MEDS: GABAPENTIN 300 MG CAP PO SCH ×3 (09:30→22:24)
[2022-08-16] MEDS: METOPROLOL SUCCINATE (ER) 100 MG TAB.ER.24H PO SCH (09:30)
[2022-08-16] MEDS: FUROSEMIDE 40 MG TAB PO SCH (09:30)
[2022-08-16] MEDS: amLODIPine 10 MG TAB PO SCH (09:30)
--- NOTE | 2022-08-16 14:16 | P.PN ---
Subjective Progress Note Date: 08/16/22 Principal diagnosis: Right second toe osteomyelitis Patient is a 52-year-old male with a past medical history significant for right third toe osteomyelitis status post amputation of the right third toe in May 2049 subsequent presented to the hospital with right second toe pain and gangrene and significant worsening over the last few days x-rays were suggestive of ostomy myelitis involving the distal phalanx. Patient is status post amputation the right second toe completed on 08/15/2022 On today's evaluation that is 08/16/2022, the patient continues to be afebrile, the patient still complaining of significant pain to his right second toe amputation site, the patient denies chest pain shortness of breath or cough and no diarrhea Objective - Vital Signs Vital signs: Vital Signs Temp 98.5 F 08/16/22 11:22 Pulse 63 08/16/22 11:22 Resp 18 08/16/22 11:22 BP 122/69 08/16/22 11:22 Pulse Ox 95 08/16/22 11:22 FiO2 Intake & Output 08/15/22 08/16/22 08/16/22 18:59 06:59 18:59 Intake Total 800 Output Total 30 Balance 770 Weight 97.069 kg Intake: IV 800 Output: Estimated Blood Loss 30 Other: Voiding Method Toilet Toilet Toilet # Voids 1 2 - Exam GENERAL DESCRIPTION: Middle-age male lying in bed in no distress RESPIRATORY SYSTEM: Unlabored breathing , clear to auscultation anteriorly HEART: S1 S2 regular rate and rhythm , ABDOMEN: Soft , no tenderness EXTREMITIES: Right foot is currently dressed minimal drainage on the dressing - Labs CBC & Chem 7: 08/13/22 14:13 08/15/22 05:19 Labs: Microbiology - Last 24 Hours (Table) 08/15/22 15:37 Gram Stain - Preliminary Toe - Right Second Tissue Culture - Preliminary 08/15/22 15:37 Anaerobic Culture - Preliminary Toe - Right Second 08/13/22 16:18 Blood Culture - Preliminary Blood No Growth after 48 hours 08/13/22 16:08 Blood Culture - Preliminary Blood No Growth after 48 hours Assessment and Plan (1) Toe osteomyelitis, right Current Visit: Yes Status: Acute Code(s): M86.9 - OSTEOMYELITIS, UNSPECIFIED SNOMED Code(s): 313356800 Plan: 1patient was in the hospital with right second toe pain swelling redness that has been going on for almost a month now with progressive worsening over the last few weeks with abnormality seen on the plain x-ray concerning for osteomyelitis likely from gram-positive skin joyce in this patient who did have a previous history of MRSA infection likely dealing with the same pathogen 2-patient is status post right second toe amputation and cultures which are currently pending patient to continue with vancomycin will adjust antibiotic further on the basis of culture report Time with Patient: Less than 30
[2022-08-16] MEDS: RIVAROXABAN 20 MG TAB PO SCH (16:50)
[2022-08-17] MEDS: MORPHINE SULFATE 4 MG/ML SYRINGE IV PRN ×5 (04:06→23:08)
[2022-08-17] MEDS: VANCOMYCIN 1,500 MG in SODIUM CHLORIDE 0.9% 500 ML 500 ML IVPB SCH ×3 (05:50→21:20)
[2022-08-17] MEDS: oxyCODONE-APAP 7.5-325MG 1 EACH TAB PO PRN ×3 (05:50→20:01)
--- NOTE | 2022-08-17 07:47 | PN ---
PROGRESS NOTE DATE OF SERVICE: 08/15/2022 CHIEF COMPLAINT: Cellulitis of the right foot with osteomyelitis. HISTORY OF PRESENT ILLNESS: This gentleman was taken to the operating room today for removal of the right second toe. There apparently was not an abscess. PHYSICAL EXAMINATION: CHEST: Clear. CARDIAC: Unchanged. ABDOMEN: Soft. IMPRESSION: 1. Cellulitis of the right foot with gangrene of the right 2nd toe. 2. Cardiovascular disease. 3. Cardiomyopathy. 4. Substance abuse. PLAN: Continue to follow postoperatively with surgery. MMODL / IJN: [id number] /
--- NOTE | 2022-08-17 08:10 | PN ---
PROGRESS NOTE DATE OF SERVICE: 08/16/2022 CHIEF COMPLAINT: Cellulitis of the right foot with gangrene of the right 2nd toe. HISTORY OF PRESENT ILLNESS: This gentleman is doing little bit better. Today, he is not having any pain due to his neuropathy. PHYSICAL EXAMINATION: CHEST: Clear. CARDIAC: Normal. ABDOMEN: Soft, nontender. IMPRESSION: Status post amputation of the right 2nd toe with cellulitis. PLAN: Continue with antibiotics and followup with vascular surgery. MMODL / IJN: [id number] /
[2022-08-17 08:33] LABS: African American GFR (CKD) >90 (>60 ml/min/1.73 sqM); Non-African American GFR(CKD) >90 (>60 ml/min/1.73 sqM)
--- NOTE | 2022-08-17 08:56 | PN ---
PROGRESS NOTE The patient had a right foot 2nd toe chronic wound with osteo. We did the amputation of the right foot 2nd toe. The patient is on IV antibiotic under the care of Internal Medicine and also the patient has some small bleeding from the incision site. Today, we have changed the dressing. His stitches are intact. Advised to walk on the heels. The patient is on current antibiotic, which will be continued. The patient is homeless. They are arranging possibility to one of the nursing homes. TARUN / JENNIFER: [id number] /
[2022-08-17] MEDS: amLODIPine 10 MG TAB PO SCH (09:16)
[2022-08-17] MEDS: GABAPENTIN 300 MG CAP PO SCH ×3 (09:16→21:20)
[2022-08-17] MEDS: METOPROLOL SUCCINATE (ER) 100 MG TAB.ER.24H PO SCH (09:16)
[2022-08-17] MEDS: FUROSEMIDE 40 MG TAB PO SCH (09:16)
[2022-08-17] MEDS ORDERED: VANCOMYCIN TROUGH DUE 1 EACH MISC MISCELLANE ONE (13:00)
[2022-08-17] MEDS: RIVAROXABAN 20 MG TAB PO SCH (17:06)
--- NOTE | 2022-08-17 23:08 | PN ---
PROGRESS NOTE DATE OF SERVICE: 08/17/2022 CHIEF COMPLAINT: Cellulitis, abscess, and gangrene of the right 2nd toe. HISTORY OF PRESENT ILLNESS: This gentleman is doing fairly well. He is angling for more pain. He states he wants something "stronger than morphine." PHYSICAL EXAMINATION: VITAL SIGNS: He is afebrile. CHEST: Clear. CARDIAC: Unchanged. ABDOMEN: Soft, nontender. EXTREMITIES: Right foot is dressed. IMPRESSION: 1. Status post amputation of the right 2nd toe for cellulitis and gangrene. 2. Atherosclerotic cardiomyopathy. 3. Congestive heart failure. PLAN: Continue with inpatient management until Surgery feels he can be discharged. Apparently, they are looking at the possibility of a bed at [facility]. MMLACYL / IJN: [id number] /
--- NOTE | 2022-08-18 00:32 | MISC ---
MISCELLANOUS REPORT Osteomyelitis of the right 2nd toe ruled in. Atrial fib, chronic, permanent, persistent, . Congestive heart failure, chronic. MMODL / IJN: [id number] /
[2022-08-18] MEDS: VANCOMYCIN 1,500 MG in SODIUM CHLORIDE 0.9% 500 ML 500 ML IVPB SCH ×3 (05:31→21:50)
[2022-08-18] MEDS: MORPHINE SULFATE 4 MG/ML SYRINGE IV PRN ×4 (05:32→21:50)
[2022-08-18 07:04] LABS: African American GFR (CKD) >90 (>60 ml/min/1.73 sqM); Non-African American GFR(CKD) >90 (>60 ml/min/1.73 sqM)
[2022-08-18] MEDS: GABAPENTIN 300 MG CAP PO SCH ×3 (07:57→21:50)
[2022-08-18] MEDS: amLODIPine 10 MG TAB PO SCH (07:57)
[2022-08-18] MEDS: METOPROLOL SUCCINATE (ER) 100 MG TAB.ER.24H PO SCH (07:58)
[2022-08-18] MEDS: FUROSEMIDE 40 MG TAB PO SCH (07:58)
[2022-08-18] MEDS: oxyCODONE-APAP 7.5-325MG 1 EACH TAB PO PRN (08:04)
--- NOTE | 2022-08-18 15:31 | P.PN ---
Subjective Progress Note Date: 08/17/22 Principal diagnosis: Right second toe osteomyelitis Patient is a 52-year-old male with a past medical history significant for right third toe osteomyelitis status post amputation of the right third toe in May 2049 subsequent presented to the hospital with right second toe pain and gangrene and significant worsening over the last few days x-rays were suggestive of ostomy myelitis involving the distal phalanx. Patient is status post amputation the right second toe completed on 08/15/2022 On today's evaluation that is 08/17/2022, the patient remains to be afebrile, the patient main symptom remains to be pain to his right second toe amputation site, the patient denies chest pain shortness of breath or cough and no diarrhea Objective - Vital Signs Vital signs: Vital Signs Temp 98.2 F 08/17/22 11:07 Pulse 51 L 08/17/22 11:07 Resp 18 08/17/22 11:07 BP 132/78 08/17/22 11:07 Pulse Ox 98 08/17/22 11:07 FiO2 Intake & Output 08/16/22 08/17/22 08/17/22 18:59 06:59 18:59 Intake Total 360 650 Output Total 800 Balance -440 650 Intake: Oral 360 650 Output: Urine 800 Other: Voiding Method Toilet Toilet # Voids 2 - Exam GENERAL DESCRIPTION: Middle-age male lying in bed in no distress RESPIRATORY SYSTEM: Unlabored breathing , clear to auscultation anteriorly HEART: S1 S2 regular rate and rhythm , ABDOMEN: Soft , no tenderness EXTREMITIES: Right foot is currently dressed minimal drainage on the dressing - Labs CBC & Chem 7: 08/13/22 14:13 08/18/22 05:53 Labs: Microbiology - Last 24 Hours (Table) 08/13/22 16:18 Blood Culture - Preliminary Blood No Growth after 72 hours 08/13/22 16:08 Blood Culture - Preliminary Blood No Growth after 72 hours Assessment and Plan (1) Toe osteomyelitis, right Current Visit: Yes Status: Acute Code(s): M86.9 - OSTEOMYELITIS, UNSPECIFIED SNOMED Code(s): 860602864 Plan: 1patient was in the hospital with right second toe pain swelling redness that has been going on for almost a month now with progressive worsening over the last few weeks with abnormality seen on the plain x-ray concerning for osteomyelitis likely from gram-positive skin joyce in this patient who did have a previous history of MRSA infection likely dealing with the same pathogen 2-patient is status post right second toe amputation and cultures which are currently presumptive MRSA, patient to continue with vancomycin and monitor clinical course closely Time with Patient: Less than 30
--- NOTE | 2022-08-18 15:33 | P.PN ---
Subjective Progress Note Date: 08/18/22 Principal diagnosis: Right second toe osteomyelitis Patient is a 52-year-old male with a past medical history significant for right third toe osteomyelitis status post amputation of the right third toe in May 2049 subsequent presented to the hospital with right second toe pain and gangrene and significant worsening over the last few days x-rays were suggestive of ostomy myelitis involving the distal phalanx. Patient is status post amputation the right second toe completed on 08/15/2022 On today's evaluation that is 08/18/2022, the patient denies any fever or any chills, the patient continues to be complaining of pain to his right second toe amputation site and asking for more pain medication, the patient denies chest pain shortness of breath or cough and no diarrhea Objective - Vital Signs Vital signs: Vital Signs Temp 98.3 F 08/18/22 07:30 Pulse 65 08/18/22 07:30 Resp 18 08/18/22 07:30 BP 186/97 08/18/22 07:30 Pulse Ox 99 08/18/22 07:30 FiO2 Intake & Output 08/17/22 08/18/22 08/18/22 18:59 06:59 18:59 Other: Voiding Method Toilet # Voids 2 2 - Exam GENERAL DESCRIPTION: Middle-age male lying in bed in no distress RESPIRATORY SYSTEM: Unlabored breathing , clear to auscultation anteriorly HEART: S1 S2 regular rate and rhythm , ABDOMEN: Soft , no tenderness EXTREMITIES: Right foot second toe amputation site is currently dressed minimal drainage on the dressing - Labs CBC & Chem 7: 08/13/22 14:13 08/18/22 05:53 Labs: Abnormal Lab Results - Last 24 Hours (Table) 08/18/22 Range/Units 05:53 Creatinine 0.62 L (0.66-1.25) mg/dL Microbiology - Last 24 Hours (Table) 08/15/22 15:37 Gram Stain - Preliminary Toe - Right Second Tissue Culture - Preliminary Presumptive MRSA 08/13/22 16:18 Blood Culture - Preliminary Blood No Growth after 96 hours 08/13/22 16:08 Blood Culture - Preliminary Blood No Growth after 96 hours Assessment and Plan (1) Toe osteomyelitis, right Current Visit: Yes Status: Acute Code(s): M86.9 - OSTEOMYELITIS, UNSPECIFIED SNOMED Code(s): 304669583 Plan: 1patient was in the hospital with right second toe pain swelling redness that has been going on for almost a month now with progressive worsening over the last few weeks with abnormality seen on the plain x-ray concerning for osteomyelitis likely from gram-positive skin joyce in this patient who did have a previous history of MRSA infection likely dealing with the same pathogen 2-patient is status post right second toe amputation and cultures which are currently presumptive MRSA with sensitivities pending anaerobic cultures are currently pending, patient to continue with vancomycin and adjust antibiotic further on the basis of culture and clinical response Time with Patient: Less than 30
[2022-08-18] MEDS: RIVAROXABAN 20 MG TAB PO SCH (17:53)
--- NOTE | 2022-08-18 19:20 | P.PN ---
Subjective This is a pleasant 52 years old male with past medical history of hypertension, Atrial fibrillation on blood thinner, COPD, hyperlipidemia He was admitted with right second toe infection and possible osteomyelitis status post amputation Currently his been covered with IV vancomycin, creatinine within the reference range Patient clinically doing well, he was seen in walking and his home without difficulty. He denies any other specific complaint Labs vitals and images were reviewed Objective - Vital Signs Vital signs: Vital Signs Temp 98.3 F 08/18/22 07:30 Pulse 65 08/18/22 07:30 Resp 18 08/18/22 07:30 BP 186/97 08/18/22 07:30 Pulse Ox 99 08/18/22 07:30 FiO2 Intake & Output 08/17/22 08/18/22 08/18/22 18:59 06:59 18:59 Other: Voiding Method Toilet # Voids 2 2 - Exam GENERAL: The patient is alert and oriented x3, not in any acute distress. Well developed, well nourished. HEENT: Pupils are round and equally reacting to light. EOMI. No scleral icterus. No conjunctival pallor. Normocephalic, atraumatic. No pharyngeal erythema. No thyromegaly. CARDIOVASCULAR: S1 and S2 present. No murmurs, rubs, or gallops. PULMONARY: Chest is clear to auscultation, no wheezing or crackles. ABDOMEN: Soft, nontender, nondistended, normoactive bowel sounds. No palpable organomegaly. MUSCULOSKELETAL: No joint swelling or deformity. -EXTREMITIES: No cyanosis, clubbing, or pedal edema. Right toe wound with dressing in place NEUROLOGICAL: Gross neurological examination did not reveal any focal deficits. SKIN: No rashes. no petechiae. - Labs CBC & Chem 7: 08/13/22 14:13 08/18/22 05:53 Labs: Abnormal Lab Results - Last 24 Hours (Table) 08/18/22 Range/Units 05:53 Creatinine 0.62 L (0.66-1.25) mg/dL Microbiology - Last 24 Hours (Table) 08/15/22 15:37 Gram Stain - Preliminary Toe - Right Second Tissue Culture - Preliminary Presumptive MRSA 08/13/22 16:18 Blood Culture - Preliminary Blood No Growth after 96 hours 08/13/22 16:08 Blood Culture - Preliminary Blood No Growth after 96 hours Assessment and Plan Assessment: Right second toe infection with osteomyelitis status post amputation Atrial fibrillation on blood thinner Hypertension. Hyperlipidemia COPD, not an active issue Obesity with BMI of 30.7 Patient is homeless Plan: continue with antibiotic as per ID team, currently on IV vancomycin Risk of nephrotoxicity is explained for the patient and he verbalized understanding and acceptance, monitor creatinine Vascular surgery of the case social work nurse/case assistant on the case for placement Labs and medication were reviewed.. Continue same treatment. Continue with symptomatic treatment. Resume home medication. Monitor labs and vitals. DVT and GI prophylaxis. Further recommendations as per clinical course of the patient DVT prophylaxis: xarelto Prognosis is guarded
[2022-08-19] MEDS: oxyCODONE-APAP 7.5-325MG 1 EACH TAB PO PRN ×4 (00:41→20:46)
[2022-08-19] MEDS: MORPHINE SULFATE 4 MG/ML SYRINGE IV PRN ×5 (03:04→22:06)
[2022-08-19] MEDS: VANCOMYCIN 1,500 MG in SODIUM CHLORIDE 0.9% 500 ML 500 ML IVPB SCH (05:42)
[2022-08-19] MEDS: FUROSEMIDE 40 MG TAB PO SCH (08:15)
[2022-08-19] MEDS: GABAPENTIN 300 MG CAP PO SCH ×3 (08:16→22:06)
[2022-08-19] MEDS: amLODIPine 10 MG TAB PO SCH (08:16)
[2022-08-19] MEDS: METOPROLOL SUCCINATE (ER) 100 MG TAB.ER.24H PO SCH (08:16)
[2022-08-19 08:54] LABS: Basophils % (A) 1 %; Eosinophils # (A) 0.4 k/uL (0-0.7); Eosinophils % (A) 6 %; HCT 47.4 % (39.0-53.0); HGB 16.3 gm/dL (13.0-17.5); Lymphocytes # (A) 1.7 k/uL (1.0-4.8); Lymphocytes % (A) 24 %; MCH 31.5 pg (25.0-35.0); MCHC 34.4 g/dL (31.0-37.0); MCV 91.5 fL (80.0-100.0); Mean Platelet Volume 8.7; Monocytes # (A) 0.6 k/uL (0-1.0); Monocytes % (A) 9 %; Neutrophils % (A) 58 %; Platelet Count 222 k/uL (150-450); RBC 5.18 m/uL (4.30-5.90); RDW 13.1 % (11.5-15.5); WBC 6.9 k/uL (3.8-10.6)
[2022-08-19 09:36] LABS: African American GFR (CKD) >90 (>60 ml/min/1.73 sqM); Anion Gap 11 mmol/L; Blood Urea Nitrogen 12 mg/dL (9-20); C Reactive Protein <0.5 mg/dL (<1.0); Calcium 8.8 mg/dL (8.4-10.2); Carbon Dioxide 21 mmol/L (22-30); Chloride 104 mmol/L (98-107); Glucose 68 mg/dL (74-99); Non-African American GFR(CKD) >90 (>60 ml/min/1.73 sqM); Sodium 136 mmol/L (137-145)
[2022-08-19 09:42] LABS: Potassium 4.6 mmol/L (3.5-5.1)
[2022-08-19] MEDS ORDERED: VANCOMYCIN TROUGH DUE 1 EACH MISC MISCELLANE ONE (13:00)
--- NOTE | 2022-08-19 14:08 | PN ---
PROGRESS NOTE This is a 52-year-old gentleman who is homeless. He had a right foot 2nd toe amputation done. The patient is walking, walking. noted some bleeding. Stitches are still intact. Advised to walk on his heels. Continue with antibiotic and the patient has no where to go to home because he is homeless. They are trying to get a replacement 1 of the [facility]. MMODL / IJN: [id number] /
--- NOTE | 2022-08-19 14:22 | P.PN ---
Subjective Progress Note Date: 08/26/22 This is a pleasant 52 years old male with past medical history of hypertension, Atrial fibrillation on blood thinner, COPD, hyperlipidemia He was admitted with right second toe infection and possible osteomyelitis status post amputation Currently his been covered with IV vancomycin, creatinine within the reference range Patient clinically doing well, he was seen in walking and his home without difficulty. He denies any other specific complaint Labs vitals and images were reviewed 08/19. Patient seen and examined. White count this morning 6.9, hemoglobin 16.3, sodium 136, potassium 4.6, BUN 12, creatinine 0.6. Patient states his pain is poorly controlled, still having pain at the site of amputation at right foot REVIEW OF SYSTEMS: CONSTITUTIONAL: No fever, no malaise,. CARDIOVASCULAR: No chest pain, no palpitations, no syncope. PULMONARY: No shortness of breath, no cough, GASTROINTESTINAL: No diarrhea, no nausea, no vomiting, no abdominal pain. NEUROLOGICAL: No headaches, no weakness, PHYSICAL EXAMINATION: GENERAL: The patient is alert and oriented x3, not in any acute distress. Well developed, well nourished. HEENT: Pupils are round and equally reacting to light. EOMI. No scleral icterus. No conjunctival pallor. Normocephalic, atraumatic. No pharyngeal erythema. No thyromegaly. CARDIOVASCULAR: S1 and S2 present. No murmurs, rubs, or gallops. PULMONARY: Chest is clear to auscultation, no wheezing or crackles. ABDOMEN: Soft, nontender, nondistended, normoactive bowel sounds. No palpable organomegaly. MUSCULOSKELETAL: Right foot dressing seen NEUROLOGICAL: Gross neurological examination did not reveal any focal deficits. SKIN: No rashes. Assessment and plan Right second toe infection with osteomyelitis status post amputation Atrial fibrillation on blood thinner Hypertension. Hyperlipidemia COPD, not an active issue Obesity with BMI of 30.7 Patient is homeless Plan: Monitor vital signs Monitor CBC Continue wound care Continue pain management continue with antibiotic as per ID team, currently on IV vancomycin Risk of nephrotoxicity is explained for the patient and he verbalized understanding and acceptance, monitor creatinine PT and OT evaluation Objective - Vital Signs Vital signs: Vital Signs Temp 97.9 F 08/19/22 07:25 Pulse 64 08/19/22 07:25 Resp 19 08/19/22 07:25 BP 167/101 08/19/22 07:25 Pulse Ox 100 08/19/22 07:25 FiO2 Intake & Output 08/18/22 08/19/22 08/19/22 18:59 06:59 18:59 Intake Total 500 Balance 500 Intake: Intake, IV Titration 500 Amount Vancomycin 1,500 mg In 500 Sodium Chloride 0.9% 500 ml 500 ml @ 167 mls/hr IVPB Q8H [facility] Rx#: [id number] Other: Voiding Method Toilet # Voids 4 2 - Labs CBC & Chem 7: 08/19/22 06:44 08/19/22 06:44 Labs: Abnormal Lab Results - Last 24 Hours (Table) 08/19/22 Range/Units 06:44 Sodium 136 L (137-145) mmol/L Carbon Dioxide 21 L (22-30) mmol/L Creatinine 0.60 L (0.66-1.25) mg/dL Glucose 68 L (74-99) mg/dL Microbiology - Last 24 Hours (Table) 08/15/22 15:37 Gram Stain - Final Toe - Right Second Tissue Culture - Final Methicillin resist S. aureus 08/13/22 16:18 Blood Culture - Preliminary Blood No Growth after 120 hours 08/13/22 16:08 Blood Culture - Preliminary Blood No Growth after 120 hours
[2022-08-19] MEDS: HYDROcodone/APAP 5-325MG 1 EACH TAB PO PRN (14:24)
[2022-08-19] MEDS: VANCOMYCIN 1,250 MG in SODIUM CHLORIDE 0.9% 250 ML IVPB SCH ×2 (14:36→22:13)
--- NOTE | 2022-08-19 16:53 | P.PN ---
Subjective Progress Note Date: 08/19/22 Principal diagnosis: Right second toe osteomyelitis Patient is a 52-year-old male with a past medical history significant for right third toe osteomyelitis status post amputation of the right third toe in May 2049 subsequent presented to the hospital with right second toe pain and gangrene and significant worsening over the last few days x-rays were suggestive of ostomy myelitis involving the distal phalanx. Patient is status post amputation the right second toe completed on 08/15/2022 On today's evaluation that is 08/19/2022, the patient remains to be afebrile, the patient continues to be complaining of pain to his right second toe amputation site and asking for more pain medication, the patient denies chest pain shortness of breath or cough and no diarrhea, and patient was noticed to have some bleeding and the dressing was changed by the surgeon this morning Objective - Vital Signs Vital signs: Vital Signs Temp 98.0 F 08/19/22 13:50 Pulse 71 08/19/22 13:50 Resp 16 08/19/22 13:50 BP 133/96 08/19/22 13:50 Pulse Ox 100 08/19/22 13:50 FiO2 Intake & Output 08/18/22 08/19/22 08/19/22 18:59 06:59 18:59 Intake Total 500 Balance 500 Intake: Intake, IV Titration 500 Amount Vancomycin 1,500 mg In 500 Sodium Chloride 0.9% 500 ml 500 ml @ 167 mls/hr IVPB Q8H [facility] Rx#: [id number] Other: Voiding Method Toilet Toilet # Voids 4 2 - Exam GENERAL DESCRIPTION: Middle-age male lying in bed in no distress RESPIRATORY SYSTEM: Unlabored breathing , clear to auscultation anteriorly HEART: S1 S2 regular rate and rhythm , ABDOMEN: Soft , no tenderness EXTREMITIES: Right foot second toe amputation site is currently dressed minimal drainage on the dressing - Labs CBC & Chem 7: 08/19/22 06:44 08/19/22 06:44 Labs: Abnormal Lab Results - Last 24 Hours (Table) 08/19/22 Range/Units 06:44 Sodium 136 L (137-145) mmol/L Carbon Dioxide 21 L (22-30) mmol/L Creatinine 0.60 L (0.66-1.25) mg/dL Glucose 68 L (74-99) mg/dL Microbiology - Last 24 Hours (Table) 08/15/22 15:37 Gram Stain - Final Toe - Right Second Tissue Culture - Final Methicillin resist S. aureus 08/13/22 16:18 Blood Culture - Preliminary Blood No Growth after 120 hours 08/13/22 16:08 Blood Culture - Preliminary Blood No Growth after 120 hours Assessment and Plan (1) Toe osteomyelitis, right Current Visit: Yes Status: Acute Code(s): M86.9 - OSTEOMYELITIS, UNSPECIFIED SNOMED Code(s): 057268330 Plan: 1patient was in the hospital with right second toe pain swelling redness that has been going on for almost a month now with progressive worsening over the last few weeks with abnormality seen on the plain x-ray concerning for osteomyelitis likely from gram-positive skin joyce in this patient who did have a previous history of MRSA infection likely dealing with the same pathogen 2-patient is status post right second toe amputation and cultures which are currently growing MRSA, anaerobic cultures are currently pending, patient to continue with vancomycin and may benefit from a short course of IV antibiotic on discharge if the patient most of the senior living Time with Patient: Less than 30
[2022-08-19] MEDS: RIVAROXABAN 20 MG TAB PO SCH (17:08)
[2022-08-20] MEDS: MORPHINE SULFATE 4 MG/ML SYRINGE IV PRN ×4 (02:50→19:38)
[2022-08-20 04:13] LABS: ALT 26 U/L (4-49); AST 32 U/L (17-59); African American GFR (CKD) >90 (>60 ml/min/1.73 sqM); Albumin 4.1 g/dL (3.5-5.0); Albumin/Globulin Ratio 1.3; Alkaline Phosphatase 78 U/L (38-126); Anion Gap 6 mmol/L; Blood Urea Nitrogen 21 mg/dL (9-20); Calcium 8.7 mg/dL (8.4-10.2); Carbon Dioxide 29 mmol/L (22-30); Chloride 100 mmol/L (98-107); Globulin 3.2 g/dL; Glucose 88 mg/dL (74-99); Non-African American GFR(CKD) >90 (>60 ml/min/1.73 sqM); Potassium 4.1 mmol/L (3.5-5.1); Sodium 135 mmol/L (137-145); Total Bilirubin 0.5 mg/dL (0.2-1.3); Total Protein 7.3 g/dL (6.3-8.2)
[2022-08-20] MEDS: VANCOMYCIN 1,250 MG in SODIUM CHLORIDE 0.9% 250 ML IVPB SCH ×3 (06:00→23:08)
[2022-08-20] MEDS: oxyCODONE-APAP 7.5-325MG 1 EACH TAB PO PRN ×3 (06:00→21:18)
[2022-08-20] MEDS: amLODIPine 10 MG TAB PO SCH (08:30)
[2022-08-20] MEDS: FUROSEMIDE 40 MG TAB PO SCH (08:30)
[2022-08-20] MEDS: GABAPENTIN 300 MG CAP PO SCH ×3 (08:30→21:18)
[2022-08-20] MEDS: METOPROLOL SUCCINATE (ER) 100 MG TAB.ER.24H PO SCH (08:30)
[2022-08-20 08:57] LABS: HCT 42.3 % (39.6-50.0); HGB 14.6 g/dL (13.0-17.0); MCHC 34.5 g/dL (32.0-37.0); MCV 89.8 fL (80.0-97.0); Mean Platelet Volume 10.8 fL (9.5-12.2); NRBC Per 100 WBC 0 /100 WBCS (0.0-0.0); Platelet Count 226 X 10*3/uL (140-440); RBC 4.71 X 10*6/uL (4.40-5.60); RDW 12.9 % (11.5-14.5); WBC 7.44 X 10*3/uL (4.50-10.00)
[2022-08-20] MEDS: LOSARTAN 50 MG TAB PO SCH (11:24)
[2022-08-20 13:41] VITALS: BMI 30.7
[2022-08-20] MEDS: metroNIDAZOLE 500 MG TAB PO SCH ×2 (16:11→21:18)
--- NOTE | 2022-08-20 17:03 | P.PN ---
Progress Note - Text 52-year-old white male who has left foot second toe amputation for gangrene and osteo-we did the primary closure but patient is walking and there is some wound dehiscences noted stitches are intact patient is an IV antibiotic if change the dressing this morning we will continue with antibiotic if patient goes home patient will follow-up in September my office recommend to have a offloading shoes
[2022-08-20] MEDS: RIVAROXABAN 20 MG TAB PO SCH (17:31)
[2022-08-20] MEDS: AMOXIC-POT CLAV 875-125MG 1 EACH TAB PO SCH (21:18)
--- NOTE | 2022-08-20 21:53 | P.PN ---
Subjective Progress Note Date: 08/20/22 Principal diagnosis: Right second toe osteomyelitis Patient is a 52-year-old male with a past medical history significant for right third toe osteomyelitis status post amputation of the right third toe in May 2049 subsequent presented to the hospital with right second toe pain and gangrene and significant worsening over the last few days x-rays were suggestive of ostomy myelitis involving the distal phalanx. Patient is status post amputation the right second toe completed on 08/15/2022 On today's evaluation that is 08/20/2022, the patient continues to be afebrile, the patient pain to his right second toe amputation site seemed has slightly decreased in intensity, the patient denies chest pain shortness of breath or cough and no diarrhea, Objective - Vital Signs Vital signs: Vital Signs Temp 97.6 F 08/20/22 11:19 Pulse 79 08/20/22 11:19 Resp 18 08/20/22 11:19 BP 148/80 08/20/22 11:19 Pulse Ox 96 08/20/22 11:19 FiO2 Intake & Output 08/19/22 08/20/22 08/20/22 18:59 06:59 18:59 Weight 97.069 kg Other: Voiding Method Toilet Toilet Toilet # Voids 2 - Exam GENERAL DESCRIPTION: Middle-age male lying in bed in no distress RESPIRATORY SYSTEM: Unlabored breathing , clear to auscultation anteriorly HEART: S1 S2 regular rate and rhythm , ABDOMEN: Soft , no tenderness EXTREMITIES: Right foot second toe amputation site is currently dressed minimal drainage on the dressing - Labs CBC & Chem 7: 08/20/22 03:13 08/20/22 03:13 Labs: Abnormal Lab Results - Last 24 Hours (Table) 08/20/22 Range/Units 03:13 Sodium 135 L (137-145) mmol/L BUN 21 H (9-20) mg/dL Microbiology - Last 24 Hours (Table) 08/15/22 15:37 Anaerobic Culture - Final Toe - Right Second Anaerobic Gm Negative Bacilli 08/13/22 16:18 Blood Culture - Final Blood No Growth after 144 hours 08/13/22 16:08 Blood Culture - Final Blood No Growth after 144 hours Assessment and Plan (1) Toe osteomyelitis, right Current Visit: Yes Status: Acute Code(s): M86.9 - OSTEOMYELITIS, UNSPECIFIED SNOMED Code(s): 196131407 Plan: 1patient was in the hospital with right second toe pain swelling redness that has been going on for almost a month now with progressive worsening over the last few weeks with abnormality seen on the plain x-ray concerning for osteomyelitis likely from gram-positive skin joyce in this patient who did have a previous history of MRSA infection likely dealing with the same pathogen 2-patient is status post right second toe amputation and cultures which are currently growing MRSA, anaerobic cultures are positive as well, patient to continue vancomycin we will add oral Flagyl as per discussion with the surgeon overall incision post amputation looks clean and the patient will be transitioned to oral Bactrim DS and Flagyl 10 days on discharge no need for IV antibiotic on discharge Time with Patient: Less than 30
[2022-08-21] MEDS: MORPHINE SULFATE 4 MG/ML SYRINGE IV PRN ×2 (02:49→05:10)
[2022-08-21] MEDS: oxyCODONE-APAP 7.5-325MG 1 EACH TAB PO PRN (05:10)
[2022-08-21] MEDS: VANCOMYCIN 1,250 MG in SODIUM CHLORIDE 0.9% 250 ML IVPB SCH (06:39)
[2022-08-21 08:09] VITALS: BP 147/82; PULSE 53; RESP 18; TEMP 97.9
[2022-08-21] MEDS: metroNIDAZOLE 500 MG TAB PO SCH (08:25)
[2022-08-21] MEDS: GABAPENTIN 300 MG CAP PO SCH (08:25)
[2022-08-21] MEDS: AMOXIC-POT CLAV 875-125MG 1 EACH TAB PO SCH (08:25)
[2022-08-21] MEDS: HYDROcodone/APAP 5-325MG 1 EACH TAB PO PRN (08:25)
[2022-08-21] MEDS: amLODIPine 10 MG TAB PO SCH (08:25)
[2022-08-21] MEDS: LOSARTAN 50 MG TAB PO SCH (08:25)
[2022-08-21] MEDS: FUROSEMIDE 40 MG TAB PO SCH (08:25)
[2022-08-21] MEDS: METOPROLOL SUCCINATE (ER) 100 MG TAB.ER.24H PO SCH (08:26)
[2022-08-21] MEDS ORDERED: VANCOMYCIN TROUGH DUE 1 EACH MISC MISCELLANE ONE (14:00)
--- NOTE | 2022-08-22 08:29 | PN ---
PROGRESS NOTE DATE OF SERVICE: 08/20/2022 CHIEF COMPLAINT: Cellulitis of right foot with gangrene of the right 2nd toe. HISTORY OF PRESENT ILLNESS: This gentleman is doing fairly well, but continues to complain about pain and is requesting stronger medication. Otherwise, doing well. PHYSICAL EXAMINATION: CHEST: Clear. CARDIAC: Normal. ABDOMEN: Soft, nontender. VITAL SIGNS: Normal. EXTREMITIES: The foot is wrapped. IMPRESSION: 1. Cellulitis of the right foot with gangrene of the right second toe. 2. Coronary artery disease. 3. Atherosclerotic cardiomyopathy. 4. Congestive heart failure. PLAN: Await for discharge approval and clearance from Infectious Disease and Surgery. MMODL / IJN: [id number] /
--- NOTE | 2022-08-22 08:50 | DS ---
DISCHARGE SUMMARY CHIEF COMPLAINT: Pain, swelling, redness in the distal right foot. HISTORY OF PRESENT ILLNESS AND PHYSICAL EXAM: Details of this man's history and physical can be found in the initial workup. LABORATORY STUDIES: While he was in the hospital, he had laboratory studies, details of which can be found in the laboratory section of his chart. COURSE IN THE HOSPITAL: After admission, he was placed on bedrest, started on intravenous fluids and IV antibiotics and seen by Surgery. He was taken to the operating room for amputation of the 2nd toe, which was gangrenous. Postoperatively, he did well. He received frequent wound dressing changes. He stabilized and fdc placement was sought for rehab given that he was homeless. However, no facility in the area would take him and he refused to go to the [facility]. He was doing well enough, it was felt that he could be discharged on the and he will go home on light activity about his dwelling and be seen in the office in several days. FINAL DIAGNOSES: 1. Gangrene of the right second toe with cellulitis of the distal right foot. 2. Atherosclerotic cardiovascular disease. 3. Peripheral vascular occlusive disease. 4. Atherosclerotic cardiomyopathy. OPERATIONS: Amputation of right 2nd toe. CONSULTATIONS: Vascular Surgery. He is improved. MMODL / IJN: [id number] /
--- NOTE | 2022-08-22 09:33 | CDI ---
Documentation Clarification Form Date: 08/22/2022 9:18:00 AM From: Kasey Bell RN, CCDS Admit Date: 08/13/2022 3:46:00 PM Patient Name: Micky Webb Visit Number: [id number] Discharge Date: 08/21/2022 12:51:00 PM ATTENTION: The Clinical Documentation Specialists (CDI) and [facility] Coding Staff appreciate your assistance in clarifying documentation. Please respond to the clarification below the line at the bottom and electronically sign. The CDI & [facility] Coding staff will review the response and follow-up if needed. Please note: Queries are made part of the Legal Health Record. If you have any questions, please contact the author of this message via ITS. Dr. Clif Glasgow Your patient has the documented diagnosis of chronic CHF per progress report on 08/17/22. Additional information regarding the type of chronic CHF is requested. History/Risk Factors: Atrial Fibrillation, COPD, hyperlipidemia, Hypertension, CHF Clinical Indicators: 52-year-old male with past medical history of right third toe osteomyelitis post amputation. He presents with worsening right second toe pain and gangrene. H/P documents he has coronary artery disease, atherosclerotic cardiomyopathy and congestive heart failure with ongoing treatment. 08/13 Vital signs: 136/86 78 18 98.1 Echocardiogram Results: (Last reported 10/17/2021) Left ventricular is at upper limits of normal with global decrease in contractility estimated ejection fraction of about 30-35 % There is a right ventricular enlargement noted. Treatment: Lasix 40 MG PO Daily In your professional opinion, can you please clarify the type of Chronic CHF if known? [ ] Systolic Heart Failure (reduced EF) [ ] Other, please specify [ ] Unable to determine (Template Last Revised: June 2020) MTDD
--- NOTE | 2022-08-26 21:38 | P.PN ---
Subjective Progress Note Date: 08/21/22 Principal diagnosis: Right second toe osteomyelitis Patient is a 52-year-old male with a past medical history significant for right third toe osteomyelitis status post amputation of the right third toe in May 2049 subsequent presented to the hospital with right second toe pain and gangrene and significant worsening over the last few days x-rays were suggestive of ostomy myelitis involving the distal phalanx. Patient is status post amputation the right second toe completed on 08/15/2022 On today's evaluation that is 08/21/2022, the patient remains to be afebrile, the patient pain to his right second toe amputation site has decreased in intensityand no further drainage , the patient denies chest pain shortness of breath or cough and no diarrhea, Objective - Vital Signs Vital signs: Vital Signs Temp 97.9 F 08/21/22 07:21 Pulse 53 L 08/21/22 07:21 Resp 18 08/21/22 07:21 BP 147/82 08/21/22 07:21 Pulse Ox 99 08/21/22 07:21 FiO2 Intake & Output 08/20/22 08/21/22 08/21/22 18:59 06:59 18:59 Intake Total 250 1090 Balance 250 1090 Weight 97.069 kg Intake: Intake, IV Titration 250 250 Amount Vancomycin 1,250 mg In 250 250 Sodium Chloride 0.9% 250 ml @ 125 mls/hr IVPB Q8H [facility] Rx#:[id number] Oral 840 Other: Voiding Method Toilet Toilet Toilet # Voids 1 - Exam GENERAL DESCRIPTION: Middle-age male lying in bed in no distress RESPIRATORY SYSTEM: Unlabored breathing , clear to auscultation anteriorly HEART: S1 S2 regular rate and rhythm , ABDOMEN: Soft , no tenderness EXTREMITIES: Right foot second toe amputation site is currently dressed minimal drainage on the dressing - Labs CBC & Chem 7: 08/20/22 03:13 08/20/22 03:13 Assessment and Plan (1) Toe osteomyelitis, right Status: Acute Code(s): M86.9 - OSTEOMYELITIS, UNSPECIFIED SNOMED Code(s): 306922337 Plan: 1patient was in the hospital with right second toe pain swelling redness that has been going on for almost a month now with progressive worsening over the last few weeks with abnormality seen on the plain x-ray concerning for osteomyelitis likely from gram-positive skin joyce in this patient who did have a previous history of MRSA infection likely dealing with the same pathogen 2-patient is status post right second toe amputation and cultures which are currently growing MRSA, anaerobic cultures are positive as well, patient to continue vancomycin we will add oral Flagyl as per discussion with the surgeon overall incision post amputation looks clean and the patient will finish therapy oral Bactrim DS and Flagyl 10 days on discharge, prescription sent to pharmacy Time with Patient: Less than 30
== END 2022-08-21 12:51 | disposition home or self-care (01) | DRG 314 ==
LOC: EC 12:28 → 5NMEDONC 15:46
PROVIDERS: ADMIT Family Medicine; ATTEND Family Medicine
PROC: 0Y6R0Z0 Detachment at Right 2nd Toe, Complete, Open Approach (ICD-10-PCS; principal; 2022-08-15 10:30)
DX: E11.69 Type 2 diabetes mellitus with other specified complication (principal); M86.171 Other acute osteomyelitis, right ankle and foot; E11.52 Type 2 diabetes mellitus with diabetic peripheral angiopathy with gangrene; I11.0 Hypertensive heart disease with heart failure; L03.115 Cellulitis of right lower limb; E11.628 Type 2 diabetes mellitus with other skin complications; I50.9 Heart failure, unspecified; B95.62 Methicillin resistant Staphylococcus aureus infection as the cause of diseases classified elsewhere; J44.9 Chronic obstructive pulmonary disease, unspecified; E66.9 Obesity, unspecified; I48.21 Permanent atrial fibrillation; L03.031 Cellulitis of right toe; F17.210 Nicotine dependence, cigarettes, uncomplicated; E78.5 Hyperlipidemia, unspecified; G89.29 Other chronic pain; I25.10 Atherosclerotic heart disease of native coronary artery without angina pectoris; I48.91 Unspecified atrial fibrillation; L02.611 Cutaneous abscess of right foot; M20.41 Other hammer toe(s) (acquired), right foot; Z68.30 Body mass index [BMI] 30.0-30.9, adult; Z87.19 Personal history of other diseases of the digestive system; Z79.01 Long term (current) use of anticoagulants; Z79.899 Other long term (current) drug therapy; Z79.82 Long term (current) use of aspirin; Z88.6 Allergy status to analgesic agent; Z88.8 Allergy status to other drugs, medicaments and biological substances; Z79.891 Long term (current) use of opiate analgesic; Z86.14 Personal history of Methicillin resistant Staphylococcus aureus infection; Z59.00 Homelessness unspecified
CPT/HCPCS: 36415; 80048; 80053; 80202; 82565; 85025; 85027; 86140; 87040; 87070; 87075; 87077; 87186; 87205; 96365; 96366; 96375; 99285

== ENCOUNTER 2022-09-11 19:09 | Inpatient (IN) | payer OTHER ==
[2022-09-11] MEDS ORDERED: MORPHINE SULFATE 4 MG/ML SYRINGE IV STA (19:56)
[2022-09-11] MEDS ORDERED: SODIUM CHLORIDE 0.9% 1,000 ML IV STA (19:56)
--- NOTE | 2022-09-11 19:58 | ED ---
Wound/Laceration HPI - General Chief Complaint: Wound/Laceration Stated Complaint: r foot infected Time Seen by Provider: 09/11/22 19:25 Source: patient, RN notes reviewed, old records reviewed Mode of arrival: ambulatory Limitations: no limitations - History of Present Illness Initial Comments: This is a 52-year-old male to the ER today. Patient Dese for evaluation of right toe wound infection. Patient has history of gangrene and amputation, history of vascular disease and diabetes. Patient presents today from primary care for evaluation regarding likely osteomyelitis of his right lower extremity -: unknown Place: home Patient Tetanus UTD: No Context: accidental Associated Symptoms: none Treatments Prior to Arrival: other (0) - Related Data Home Medications Medication Instructions Recorded Confirmed Nitroglycerin Sl Tabs [Nitrostat] 0.4 mg SL Q5M PRN 06/28/21 09/11/22 Albuterol Sulfate [Proair Hfa] 2 puff INHALATION RT-QID PRN 10/14/21 09/11/22 Furosemide [Lasix] 40 mg PO DAILY 05/19/22 09/11/22 Gabapentin [Neurontin] 300 mg PO TID 05/19/22 09/11/22 Metoprolol Succinate (ER) [Toprol 100 mg PO DAILY 08/13/22 09/11/22 XL] amLODIPine [Norvasc] 10 mg PO DAILY 08/13/22 09/11/22 oxyCODONE-APAP 10-325MG [Percocet 1 tab PO Q6H PRN 09/11/22 09/11/22 10-325 mg] Previous Rx's Medication Instructions Recorded Rivaroxaban [Xarelto] 20 mg PO W/SUPPER 30 Days #30 tab 07/31/21 Allergies Allergy/AdvReac Type Severity Reaction Status Date / Time ibuprofen [From Motrin] AdvReac Nausea & Verified 09/11/22 21:14 Vomiting simvastatin [From Zocor] AdvReac Dizziness Verified 09/11/22 21:14 Review of Systems ROS Statement: Those systems with pertinent positive or pertinent negative responses have been documented in the HPI. ROS Other: All systems not noted in ROS Statement are negative. Past Medical History Past Medical History: Atrial Fibrillation, COPD, Hyperlipidemia, Hypertension, Pneumonia Additional Past Medical History / Comment(s): Other HX; Costochondritis, chronic pain, chronic low back pain with bilateral sciatica, neuropathy bilateral hands/feet, migraines, kidney stones, past partial small bowel obstruction. HTN the last 10 yrs Stopped taking meds 5 yrs ago. COPD due to tobacco use History of Any Multi-Drug Resistant Organisms: MRSA Date of last positivie culture/infection: 05/19/22 MDRO Source:: TOE Past Surgical History: Heart Catheterization, Orthopedic Surgery Additional Past Surgical History / Comment(s): 03/14/18 Cardiac cath-normal coronaries, L shoulder rotator cuff repair x2, cervical injection. Past Anesthesia/Blood Transfusion Reactions: No Reported Reaction Past Psychological History: Anxiety, Bipolar, Depression, Schizophrenia Smoking Status: Current every day smoker Past Alcohol Use History: None Reported Past Drug Use History: Marijuana, Prescription Drug Abuse - Past Family History Father Family Medical History: Myocardial Infarction ([place]) Additional Family Medical History / Comment(s): mi at age 35, still living Mother Family Medical History: Myocardial Infarction ([place]) Additional Family Medical History / Comment(s): Mother has had at least one [place]- pt unsure at what age. He has not had much contact with his mother since he was 17 yrs old. General Exam - General Exam Comments Initial Comments: Right toe gangrene osteomyelitis and cellulitis Limitations: no limitations General appearance: alert, in no apparent distress Head exam: Present: atraumatic, normocephalic, normal inspection Eye exam: Present: normal appearance, PERRL, EOMI. Absent: scleral icterus, conjunctival injection, periorbital swelling ENT exam: Present: normal exam, mucous membranes moist Neck exam: Present: normal inspection. Absent: tenderness, meningismus, lymphadenopathy Respiratory exam: Present: normal lung sounds bilaterally. Absent: respiratory distress, wheezes, rales, rhonchi, stridor Cardiovascular Exam: Present: regular rate, normal rhythm, normal heart sounds. Absent: systolic murmur, diastolic murmur, rubs, gallop, clicks GI/Abdominal exam: Present: soft, normal bowel sounds. Absent: distended, tenderness, guarding, rebound, rigid Extremities exam: Present: normal inspection, full ROM, normal capillary refill. Absent: tenderness, pedal edema, joint swelling, calf tenderness Back exam: Present: normal inspection Neurological exam: Present: alert, oriented X3, CN II-XII intact Psychiatric exam: Present: normal affect, normal mood Skin exam: Present: warm, dry, intact, normal color. Absent: rash Course Vital Signs 09/11/22 09/11/22 09/11/22 19:18 20:38 21:46 Temperature 97.3 F L 98.2 F Pulse Rate 83 73 72 Respiratory 20 17 17 Rate Blood Pressure 172/126 157/103 157/88 O2 Sat by Pulse 100 100 100 Oximetry 09/11/22 21:52 Temperature 98.0 F Pulse Rate Respiratory Rate Blood Pressure O2 Sat by Pulse Oximetry - Reevaluation(s) Reevaluation #1: 09/11/22 22:17 Medical record is reviewed Reevaluation #2: 09/11/22 22:17 Patient has no change in symptoms here in the ER, pain is improved Reevaluation #3: 09/11/22 22:17 Patient informed results questions answered Reevaluation #4: Was pt. sent in by a medical professional or institution? @ -yes PCP for vascular evaluation Did you speak to anyone other than the patient for history? @ -no Did you review nursing and triage notes? @ -agree Were old charts reviewed? @ -yes and patient is quite familiar to this ED and to myself Differential Diagnosis? @ -prior EKG interpreted by me (3pts min.)? @ -yes X-rays interpreted by me (1pt min.)? @ -yes CT interpreted by me (1pt min.)? @ -no U/S interpreted by me (1pt. min.)? @ -no What testing was considered but not performed? (CT, X-rays, U/S, labs)? Why? @ -no What meds were considered but not given? Why? @ -no Did you discuss the management of the patient with other professionals? @ -no Did you reconcile home meds? @ -yes Was smoking cessation discussed for >3mins.? @ -no Was critical care preformed (if so, how long)? @ -no Were there social determinants of health that impacted care today? How? (Homelessness, low income, unemployed, alcoholism, drug addiction, transportation, low edu. Level, literacy, decrease access to med. care, [facility], rehab)? @ -no Was there de-escalation of care discussed even if they declined? (Discuss DNR or withdrawal of care, Hospice)? @ -no What co-morbidities impacted this encounter? (DM, HTN, Smoking, COPD, CAD, Cancer, CVA, Hep., AIDS, mental health diagnosis, sleep apnea, morbid obesity)? @ -none Was patient admitted / discharged? @ -admit Undiagnosed new problem with uncertain prognosis? @ -no Drug Therapy requiring intensive monitoring for toxicity (Heparin, Nitro, Insulin, Cardizem)? @ -no Were any procedures done? @ -no Diagnosis/symptom? @ -R foot cellulitis, osteomyelitis Acute, or Chronic, or Acute on Chronic? @ -no Uncomplicated (without systemic symptoms) or Complicated (systemic symptoms)? @ -uncomplicated Side effects of treatment? @ -no Exacerbation, Progression, or Severe Exacerbation] @ -no Poses a threat to life or bodily function? @ -yes leading to loss of limb and sepsis - Consultations Consultation #1: Spoke with admitting physicians, Maria E Segal. and agrees to admit this patient Medical Decision Making - Medical Decision Making 52-year-old male DF for evaluation patient on her facility history of osteoporosis and toe amputation. Patient has recurrent symptoms increasing pain inflammation erythema and spreading cellulitis. Patient will be admitted for vascular surgery consult pain control and IV antibiotics - Lab Data Result diagrams: 09/11/22 19:36 09/11/22 19:36 Lab Results 09/11/22 09/11/22 09/11/22 Range/Units 19:36 19:36 19:36 WBC 8.4 (3.8-10.6) k/uL RBC 4.91 (4.30-5.90) m/uL Hgb 15.1 (13.0-17.5) gm/dL Hct 45.3 (39.0-53.0) % MCV 92.3 (80.0-100.0) fL MCH 30.8 (25.0-35.0) pg MCHC 33.4 (31.0-37.0) g/dL RDW 13.5 (11.5-15.5) % Plt Count 222 (150-450) k/uL MPV 8.5 Neutrophils % 69 % Lymphocytes % 17 % Monocytes % 7 % Eosinophils % 4 % Basophils % 1 % Neutrophils # 5.8 (1.3-7.7) k/uL Lymphocytes # 1.4 (1.0-4.8) k/uL Monocytes # 0.6 (0-1.0) k/uL Eosinophils # 0.4 (0-0.7) k/uL Basophils # 0.1 (0-0.2) k/uL PT 9.7 (9.0-12.0) sec INR 0.9 (<1.2) APTT 23.2 (22.0-30.0) sec Sodium 139 (137-145) mmol/L Potassium 4.4 (3.5-5.1) mmol/L Chloride 100 (98-107) mmol/L Carbon Dioxide 27 (22-30) mmol/L Anion Gap 12 mmol/L BUN 11 (9-20) mg/dL Creatinine 0.76 (0.66-1.25) mg/dL Est GFR (CKD-EPI)AfAm >90 (>60 ml/min/1.73 sqM) Est GFR (CKD-EPI)NonAf >90 (>60 ml/min/1.73 sqM) Glucose 80 (74-99) mg/dL Plasma Lactic Acid George (0.7-2.0) mmol/L Calcium 9.1 (8.4-10.2) mg/dL Phosphorus 3.9 (2.5-4.5) mg/dL Magnesium 1.9 (1.6-2.3) mg/dL Total Bilirubin 0.4 (0.2-1.3) mg/dL AST 30 (17-59) U/L ALT 20 (4-49) U/L Alkaline Phosphatase 100 (38-126) U/L Troponin I (0.000-0.034) ng/mL NT-Pro-B Natriuret Pep pg/mL Total Protein 7.9 (6.3-8.2) g/dL Albumin 4.6 (3.5-5.0) g/dL 09/11/22 09/11/22 09/11/22 Range/Units 19:36 19:36 20:30 WBC (3.8-10.6) k/uL RBC (4.30-5.90) m/uL Hgb (13.0-17.5) gm/dL Hct (39.0-53.0) % MCV (80.0-100.0) fL MCH (25.0-35.0) pg MCHC (31.0-37.0) g/dL RDW (11.5-15.5) % Plt Count (150-450) k/uL MPV Neutrophils % % Lymphocytes % % Monocytes % % Eosinophils % % Basophils % % Neutrophils # (1.3-7.7) k/uL Lymphocytes # (1.0-4.8) k/uL Monocytes # (0-1.0) k/uL Eosinophils # (0-0.7) k/uL Basophils # (0-0.2) k/uL PT (9.0-12.0) sec INR (<1.2) APTT (22.0-30.0) sec Sodium (137-145) mmol/L Potassium (3.5-5.1) mmol/L Chloride (98-107) mmol/L Carbon Dioxide (22-30) mmol/L Anion Gap mmol/L BUN (9-20) mg/dL Creatinine (0.66-1.25) mg/dL Est GFR (CKD-EPI)AfAm (>60 ml/min/1.73 sqM) Est GFR (CKD-EPI)NonAf (>60 ml/min/1.73 sqM) Glucose (74-99) mg/dL Plasma Lactic Acid George 1.0 (0.7-2.0) mmol/L Calcium (8.4-10.2) mg/dL Phosphorus (2.5-4.5) mg/dL Magnesium (1.6-2.3) mg/dL Total Bilirubin (0.2-1.3) mg/dL AST (17-59) U/L ALT (4-49) U/L Alkaline Phosphatase (38-126) U/L Troponin I <0.012 (0.000-0.034) ng/mL NT-Pro-B Natriuret Pep 150 pg/mL Total Protein (6.3-8.2) g/dL Albumin (3.5-5.0) g/dL - Radiology Data Radiology results: report reviewed (X-ray right foot is negative for acute disease), image reviewed Disposition Clinical Impression: Osteomyelitis, Toe osteomyelitis, right, Osteomyelitis of second toe of right foot, Cellulitis of right foot Disposition: ADMITTED IP TO THIS [facility] Condition: Fair Is patient prescribed a controlled substance at d/c from ED?: No Time of Disposition: 20:40
[2022-09-11 20:10] LABS: Basophils # (A) 0.1 k/uL (0-0.2); Basophils % (A) 1 %; Eosinophils # (A) 0.4 k/uL (0-0.7); Eosinophils % (A) 4 %; HCT 45.3 % (39.0-53.0); HGB 15.1 gm/dL (13.0-17.5); Lymphocytes # (A) 1.4 k/uL (1.0-4.8); Lymphocytes % (A) 17 %; MCH 30.8 pg (25.0-35.0); MCHC 33.4 g/dL (31.0-37.0); MCV 92.3 fL (80.0-100.0); Mean Platelet Volume 8.5; Monocytes # (A) 0.6 k/uL (0-1.0); Monocytes % (A) 7 %; Neutrophils # (A) 5.8 k/uL (1.3-7.7); Neutrophils % (A) 69 %; Platelet Count 222 k/uL (150-450); RBC 4.91 m/uL (4.30-5.90); RDW 13.5 % (11.5-15.5); WBC 8.4 k/uL (3.8-10.6)
[2022-09-11 20:20] LABS: INR 0.9 (<1.2); Partial Thromboplastin Time 23.2 sec (22.0-30.0); Prothrombin Time 9.7 sec (9.0-12.0)
[2022-09-11 20:33] LABS: ALT 20 U/L (4-49); AST 30 U/L (17-59); African American GFR (CKD) >90 (>60 ml/min/1.73 sqM); Albumin 4.6 g/dL (3.5-5.0); Alkaline Phosphatase 100 U/L (38-126); Anion Gap 12 mmol/L; Blood Urea Nitrogen 11 mg/dL (9-20); Calcium 9.1 mg/dL (8.4-10.2); Carbon Dioxide 27 mmol/L (22-30); Chloride 100 mmol/L (98-107); Glucose 80 mg/dL (74-99); Magnesium 1.9 mg/dL (1.6-2.3); Non-African American GFR(CKD) >90 (>60 ml/min/1.73 sqM); Phosphorus 3.9 mg/dL (2.5-4.5); Potassium 4.4 mmol/L (3.5-5.1); Sodium 139 mmol/L (137-145); Total Bilirubin 0.4 mg/dL (0.2-1.3); Total Protein 7.9 g/dL (6.3-8.2)
[2022-09-11] MEDS ORDERED: VANCOMYCIN IV PER PHARMACY 1 EACH MISC MISCELLANE PRN (20:34)
[2022-09-11] MEDS ORDERED: ONDANSETRON 4 MG/2 ML VIAL IVP PRN (20:34)
[2022-09-11] MEDS ORDERED: NALOXONE 0.4 MG/ML 1 ML VIAL IV PRN (20:34)
[2022-09-11] MEDS ORDERED: ACETAMINOPHEN TAB 325 MG TAB PO PRN (20:34)
[2022-09-11] MEDS: SODIUM CHLORIDE 0.9% 1,000 ML IV SCH (20:40)
--- NOTE | 2022-09-11 20:42 | XR ---
EXAMINATION TYPE: XR foot complete RT DATE OF EXAM: 09/11/2022 COMPARISON: 08/13/2022 HISTORY: Pain, history of infection TECHNIQUE: 3 view right foot FINDINGS: There is amputation of the second digit and of the third digit. Soft tissues appear normal. No radiopaque foreign bodies are evident. No acute fractures are evident. No suspicious cortical erosion evident. Follow-up can be performed as clinically indicated. IMPRESSION: 1. No suspicious changes to suggest acute osteomyelitis by x-ray. Three-phase bone scan can be perfo rmed as clinically indicated.
[2022-09-11] MEDS ORDERED: VANCOMYCIN 1,750 MG in SODIUM CHLORIDE 0.9% 500 ML 500 ML IVPB ONE (21:30)
[2022-09-11] MEDS: HYDROmorphone 1 MG/ML 1 ML SYRINGE IVP PRN (23:57)
[2022-09-12] MEDS: HYDROmorphone 1 MG/ML 1 ML SYRINGE IVP PRN ×6 (04:37→21:14)
[2022-09-12] MEDS: SODIUM CHLORIDE 0.9% 1,000 ML IV SCH ×2 (06:45→12:24)
[2022-09-12] MEDS: VANCOMYCIN 1,750 MG in SODIUM CHLORIDE 0.9% 500 ML 500 ML IVPB SCH ×2 (09:11→20:15)
[2022-09-12 11:29] LABS: ALT 15 U/L (10-49); AST 22 U/L (14-35); African American GFR (CKD) 120.7 (60.0-200.0); Albumin 3.6 g/dL (3.8-4.9); Albumin/Globulin Ratio 1.44 (1.60-3.17); Alkaline Phosphatase 100 U/L (41-126); BUN/Creat Ratio 12.13 Ratio (12.00-20.00); Blood Urea Nitrogen 9.7 mg/dL (9.0-27.0); Calcium 8.3 mg/dL (8.7-10.3); Carbon Dioxide 23.9 mmol/L (20.0-27.5); Chloride 105 mmol/L (96-109); Globulin 2.5 g/dL (1.6-3.3); Glucose 89 mg/dL (70-110); Non-African American GFR(CKD) 104.2 (60.0-200.0); Potassium 4.4 mmol/L (3.5-5.5); Sodium 137 mmol/L (135-145); Total Bilirubin <0.15 mg/dL (0.30-1.20); Total Protein 6.1 g/dL (6.2-8.2)
[2022-09-12 12:14] LABS: Basophils # (A) 0.06 X 10*3/uL (0.00-0.10); Basophils % (A) 0.8 %; Eosinophils # (A) 0.44 X 10*3/uL (0.04-0.35); Eosinophils % (A) 5.6 %; HGB 13.6 g/dL (13.0-17.0); Immature Grans, Automated 0.5 %; Lymphocytes % (A) 17.9 %; MCH 30.6 pg (27.0-32.0); MCHC 33.2 g/dL (32.0-37.0); MCV 92.3 fL (80.0-97.0); Mean Platelet Volume 11.3 fL (9.5-12.2); Monocytes # (A) 1.07 X 10*3/uL (0.20-1.00); Monocytes % (A) 13.7 %; NRBC Per 100 WBC 0 /100 WBCS (0.0-0.0); Neutrophils # (A) 4.81 X 10*3/uL (1.80-7.70); Neutrophils % (A) 61.5 %; Platelet Count 207 X 10*3/uL (140-440); RBC 4.44 X 10*6/uL (4.40-5.60); RDW 13.6 % (11.5-14.5); WBC 7.82 X 10*3/uL (4.50-10.00)
--- NOTE | 2022-09-12 16:29 | P.GSCN ---
History of Present Illness History of present illness: 52-year-old gentleman well known to me from the past. Patient had a amputation of the right foot second toe done in the past patient was about to follow-up in the office he missed his appointment his been walking and he developed dehiscence of the wound as the distal incision site and his stitches are follow parked on the dorsal aspect of the foot stitches are intact there is no drainage or fall odor noted patient white cell count is 8.4 Patient has history of diabetes, A. fib, hypertension, Surgical history patient had a right foot second toe pressure done in the past patient will up dehiscence of the wound On examination neck is supple no bruit appreciated Chest is clear good entry both lungs Abdomen soft nontender Femorals are 1+ bilateral right foot wound has dehiscence stitches are follow parked no drainage noted wound was cleaned and area with saline and we placed a medihoney gel and some the stitches was removed Patient is an IV antibiotic Tony is we will change her dressing daily with medihoney gel advise if patient goes home I'll Follow-up in my office this F riday patient agrees to come to the office Past Medical History Past Medical History: Atrial Fibrillation, COPD, Hyperlipidemia, Hypertension, Pneumonia Additional Past Medical History / Comment(s): Other HX; Costochondritis, chronic pain, chronic low back pain with bilateral sciatica, neuropathy bilateral hands/feet, migraines, kidney stones, past partial small bowel obstruction. HTN the last 10 yrs Stopped taking meds 5 yrs ago. COPD due to tobacco use History of Any Multi-Drug Resistant Organisms: MRSA Year Discovered:: 05/19/22 MDRO Source:: TOE Past Surgical History: Heart Catheterization, Orthopedic Surgery Additional Past Surgical History / Comment(s): 03/14/18 Cardiac cath-normal coronaries, L shoulder rotator cuff repair x2, cervical injection. Past Anesthesia/Blood Transfusion Reactions: No Reported Reaction Past Psychological History: Anxiety, Bipolar, Depression, Schizophrenia Additional Psychological History / Comment(s): Pt was on Mental Health 2 years ago at [facility] for suicidal ideation - Not seeing anyone currently Smoking Status: Current every day smoker Past Alcohol Use History: None Reported Additional Past Alcohol Use History / Comment(s): Started smoking at age 15- smoked 1 ppd but has cut down to 1/2 pack a day Past Drug Use History: Marijuana, Prescription Drug Abuse Additional Drug Use History / Comment(s): Pt smokes marijuana daily, and regular cigarrettes daily - Past Family History Father Family Medical History: Myocardial Infarction ([place]) Additional Family Medical History / Comment(s): mi at age 35, still living Mother Family Medical History: Myocardial Infarction ([place]) Additional Family Medical History / Comment(s): Mother has had at least one [place]- pt unsure at what age. He has not had much contact with his mother since he was 17 yrs old. Medications and Allergies Home Medications Medication Instructions Recorded Confirmed Type Nitroglycerin Sl Tabs [Nitrostat] 0.4 mg SL Q5M PRN 06/28/21 09/11/22 History Rivaroxaban [Xarelto] 20 mg PO W/SUPPER 30 Days #30 tab 07/31/21 09/11/22 Rx Albuterol Sulfate [Proair Hfa] 2 puff INHALATION RT-QID PRN 10/14/21 09/11/22 History Furosemide [Lasix] 40 mg PO DAILY 05/19/22 09/11/22 History Gabapentin [Neurontin] 300 mg PO TID 05/19/22 09/11/22 History Metoprolol Succinate (ER) [Toprol 100 mg PO DAILY 08/13/22 09/11/22 History XL] amLODIPine [Norvasc] 10 mg PO DAILY 08/13/22 09/11/22 History oxyCODONE-APAP 10-325MG [Percocet 1 tab PO Q6H PRN 09/11/22 09/11/22 History 10-325 mg] Allergies Allergy/AdvReac Type Severity Reaction Status Date / Time ibuprofen [From Motrin] AdvReac Nausea & Verified 09/11/22 21:14 Vomiting simvastatin [From Zocor] AdvReac Dizziness Verified 09/11/22 21:14 Surgical - Exam Vital Signs Temp Pulse Resp BP Pulse Ox 97.3 F L 83 20 172/126 100 09/11/22 19:18 09/11/22 19:18 09/11/22 19:18 09/11/22 19:18 09/11/22 19:18 Results - Labs 09/12/22 05:57 09/12/22 05:57 Abnormal Lab Results - Last 24 Hours (Table) 09/12/22 09/12/22 Range/Units 05:57 05:57 Monocytes # 1.07 H (0.20-1.00) X 10*3/uL Eosinophils # 0.44 H (0.04-0.35) X 10*3/uL Anion Gap 8.10 L (10.00-18.00) mmol/L Calcium 8.3 L (8.7-10.3) mg/dL Total Bilirubin <0.15 L (0.30-1.20) mg/dL Total Protein 6.1 L (6.2-8.2) g/dL Albumin 3.6 L (3.8-4.9) g/dL Albumin/Globulin Ratio 1.44 L (1.60-3.17) g/dL Diabetes panel 09/11/22 09/12/22 Range/Units 19:36 05:57 Sodium 139 137 (137-145) mmol/L Potassium 4.4 4.4 (3.5-5.1) mmol/L Chloride 100 105 (98-107) mmol/L Carbon Dioxide 27 23.9 (22-30) mmol/L BUN 11 9.7 (9-20) mg/dL Creatinine 0.76 0.8 (0.66-1.25) mg/dL Glucose 80 89 (74-99) mg/dL Calcium 9.1 8.3 L (8.4-10.2) mg/dL AST 30 22 (17-59) U/L ALT 20 15 (4-49) U/L Alkaline Phosphatase 100 100 (38-126) U/L Total Protein 7.9 6.1 L (6.3-8.2) g/dL Albumin 4.6 3.6 L (3.5-5.0) g/dL Calcium panel 09/11/22 09/12/22 Range/Units 19:36 05:57 Calcium 9.1 8.3 L (8.4-10.2) mg/dL Phosphorus 3.9 (2.5-4.5) mg/dL Albumin 4.6 3.6 L (3.5-5.0) g/dL Pituitary panel 09/11/22 09/12/22 Range/Units 19:36 05:57 Sodium 139 137 (137-145) mmol/L Potassium 4.4 4.4 (3.5-5.1) mmol/L Chloride 100 105 (98-107) mmol/L Carbon Dioxide 27 23.9 (22-30) mmol/L BUN 11 9.7 (9-20) mg/dL Creatinine 0.76 0.8 (0.66-1.25) mg/dL Glucose 80 89 (74-99) mg/dL Calcium 9.1 8.3 L (8.4-10.2) mg/dL Adrenal panel 09/11/22 09/12/22 Range/Units 19:36 05:57 Sodium 139 137 (137-145) mmol/L Potassium 4.4 4.4 (3.5-5.1) mmol/L Chloride 100 105 (98-107) mmol/L Carbon Dioxide 27 23.9 (22-30) mmol/L BUN 11 9.7 (9-20) mg/dL Creatinine 0.76 0.8 (0.66-1.25) mg/dL Glucose 80 89 (74-99) mg/dL Calcium 9.1 8.3 L (8.4-10.2) mg/dL Total Bilirubin 0.4 <0.15 L (0.2-1.3) mg/dL AST 30 22 (17-59) U/L ALT 20 15 (4-49) U/L Alkaline Phosphatase 100 100 (38-126) U/L Total Protein 7.9 6.1 L (6.3-8.2) g/dL Albumin 4.6 3.6 L (3.5-5.0) g/dL
[2022-09-12] MEDS ORDERED: ALBUTEROL NEBULIZED 2.5 MG/3 ML INHALATION PRN (17:36)
[2022-09-12] MEDS: amLODIPine 10 MG TAB PO SCH (20:15)
[2022-09-12] MEDS: oxyCODONE-APAP 10-325MG 1 EACH TAB PO PRN (20:15)
[2022-09-12] MEDS: GABAPENTIN 300 MG CAP PO SCH (21:15)
[2022-09-12] MEDS: METOPROLOL SUCCINATE (ER) 100 MG TAB.ER.24H PO SCH (21:24)
[2022-09-13] MEDS: SODIUM CHLORIDE 0.9% 1,000 ML IV SCH ×3 (00:03→11:50)
[2022-09-13] MEDS: HYDROmorphone 1 MG/ML 1 ML SYRINGE IVP PRN ×5 (00:04→11:49)
[2022-09-13] MEDS: METOPROLOL SUCCINATE (ER) 100 MG TAB.ER.24H PO SCH (08:29)
[2022-09-13] MEDS: GABAPENTIN 300 MG CAP PO SCH (08:29)
[2022-09-13] MEDS: amLODIPine 10 MG TAB PO SCH (08:29)
[2022-09-13] MEDS: VANCOMYCIN 1,750 MG in SODIUM CHLORIDE 0.9% 500 ML 500 ML IVPB SCH (08:59)
[2022-09-13] MEDS ORDERED: FUROSEMIDE 40 MG TAB PO SCH (09:00)
[2022-09-13] MEDS ORDERED: amLODIPine 10 MG TAB PO SCH (09:00)
[2022-09-13] MEDS ORDERED: METOPROLOL SUCCINATE (ER) 100 MG TAB.ER.24H PO SCH (09:00)
[2022-09-13 09:04] VITALS: BP 158/95; PULSE 53; RESP 19; TEMP 98
[2022-09-13] MEDS: oxyCODONE-APAP 10-325MG 1 EACH TAB PO PRN (10:20)
[2022-09-13] MEDS ORDERED: RIVAROXABAN 20 MG TAB PO SCH (17:30)
--- NOTE | 2022-09-14 05:42 | PN ---
PROGRESS NOTE DATE OF SERVICE: 09/12/2022 CHIEF COMPLAINT: Osteomyelitis and cellulitis of the right foot. HISTORY OF PRESENT ILLNESS: This gentleman is fairly comfortable. He was just seen by vascular surgery who thinks that he will be able to go home in a day or 2. PHYSICAL EXAMINATION: GENERAL: He is afebrile. CHEST: Clear. CARDIAC: Normal except for an S4. EXTREMITIES: The foot is wrapped at this time. IMPRESSION: 1. Osteomyelitis and cellulitis of the right foot. 2. Atherosclerotic cardiomyopathy. PLAN: Probably home tomorrow. MMODL / IJN: [id number] /
[2022-09-14] MEDS ORDERED: VANCOMYCIN TROUGH DUE 1 EACH MISC MISCELLANE ONE (07:00)
--- NOTE | 2022-09-14 07:58 | HP ---
HISTORY AND PHYSICAL CHIEF COMPLAINT: Osteomyelitis and cellulitis of the right foot. HISTORY OF PRESENT ILLNESS: This is another admission for this 52-year-old man, who has had persistent and recurrent problems with lower extremities secondary to cellulitis and osteomyelitis. He has had several toes removed. Once he comes out of the hospital, he does not follow up with Surgery, Infectious Disease, or my office. He came to the office several days ago with opening of the wound on the right foot where there appeared to be a possibility of dry gangrene. He had no fever or chills. Then, he was treated as an outpatient and was supposed to follow up with Surgery, but instead came to the emergency room. He was admitted. REVIEW OF SYSTEMS: He denies fever, chills, shortness of breath, chest pain, abdominal pain, etc. Past medical history, family history, and personal and social histories are otherwise unremarkable and unchanged from his recent admitting and discharge summaries. He does have severe atherosclerotic cardiomyopathy and coronary artery disease. He abuses narcotics. PHYSICAL EXAMINATION: VITAL SIGNS: Blood pressure is 139/64 with a pulse of 73, respirations of 30, and he is afebrile. GENERAL: He appeared to be in no acute distress. SKIN: Color is normal. Skin is warm and dry. LYMPHATICS: Lymph nodes are not enlarged. HEAD, EARS, EYES, NOSE, MOUTH AND THROAT: Normal. NECK: Veins are not distended. Thyroid is not enlarged. CHEST: Clear. CARDIAC: Unchanged with an S4. It sounds his heart rate is irregular. ABDOMEN: Soft and nontender. EXTREMITIES: Unchanged with cellulitis of the distal foot and open and dry base with a right 2nd toe where the toe was recently amputated. NEUROLOGIC: Intact, He is admitted to the hospital with diagnoses: 1. Osteomyelitis and cellulitis of the right foot. 2. Atherosclerotic cardiovascular disease. 3. PVOD. 4. Atherosclerotic cardiomyopathy. PLAN: 1. Bed rest. 2. IV fluids. 3. Consult with Vascular Surgery. MMODL / IJN: [id number] /
== END 2022-09-13 15:32 | disposition home or self-care (01) | DRG 349 ==
LOC: EC 19:09 → 4SSUR 20:35
PROVIDERS: ADMIT Family Medicine; ATTEND Family Medicine
DX: T87.43 Infection of amputation stump, right lower extremity (principal); T87.81 Dehiscence of amputation stump; E11.69 Type 2 diabetes mellitus with other specified complication; E78.5 Hyperlipidemia, unspecified; G89.29 Other chronic pain; I10 Essential (primary) hypertension; Z87.891 Personal history of nicotine dependence; J44.9 Chronic obstructive pulmonary disease, unspecified; M54.50 Low back pain, unspecified; E11.42 Type 2 diabetes mellitus with diabetic polyneuropathy; G43.909 Migraine, unspecified, not intractable, without status migrainosus; E11.52 Type 2 diabetes mellitus with diabetic peripheral angiopathy with gangrene; M86.8X7 Other osteomyelitis, ankle and foot; I96 Gangrene, not elsewhere classified; F12.10 Cannabis abuse, uncomplicated; F17.210 Nicotine dependence, cigarettes, uncomplicated; F20.9 Schizophrenia, unspecified; F31.9 Bipolar disorder, unspecified; I42.9 Cardiomyopathy, unspecified; L03.115 Cellulitis of right lower limb; I48.91 Unspecified atrial fibrillation; M81.0 Age-related osteoporosis without current pathological fracture; Z79.01 Long term (current) use of anticoagulants; Y84.8 Other medical procedures as the cause of abnormal reaction of the patient, or of later complication, without mention of misadventure at the time of the procedure; Z87.442 Personal history of urinary calculi; Z87.19 Personal history of other diseases of the digestive system; Z87.01 Personal history of pneumonia (recurrent); Z79.899 Other long term (current) drug therapy; Z88.6 Allergy status to analgesic agent; Z88.8 Allergy status to other drugs, medicaments and biological substances
CPT/HCPCS: 36415; 80053; 83605; 83735; 83880; 84100; 84484; 85025; 85610; 85730; 87040; 94760; 96361; 96365; 96375; 99284

== ENCOUNTER 2022-10-09 10:54 | Inpatient (IN) | payer OTHER ==
--- NOTE | 2022-10-09 11:39 | ED ---
General Adult HPI - General Source: patient, RN notes reviewed Mode of arrival: wheelchair Limitations: no limitations <Dudley Maguire - Last Filed: 10/09/22 11:38> <Jackson Garcia - Last Filed: 10/09/22 13:23> - General Chief complaint: Skin/Abscess/Foreign Body Stated complaint: Right foot infection Time Seen by Provider: 10/09/22 11:39 - History of Present Illness Initial comments: 52-year-old male presents emergency Department with chief complaint of right foot infection. Patient had prior amputation patient states infection is getting worse statesincreased redness and drainage. (Dudley Maguire) 52-year-old male with past medical history significant for S/P right second toe amputation on 08/15 and treatment for osteomyelitis discharged on 09/17 presents to the ED today with a chief complaint of right foot pain. She states over the last few days has had increasing right foot pain men yesterday night noticed drainage at the right second toe amputation site. Also notes a blister on the sole of his foot. No other complaints. (Jackson Garcia) - Related Data Home Medications Medication Instructions Recorded Confirmed Nitroglycerin Sl Tabs [Nitrostat] 0.4 mg SL Q5M PRN 06/28/21 09/11/22 Albuterol Sulfate [Proair Hfa] 2 puff INHALATION RT-QID PRN 10/14/21 09/11/22 Furosemide [Lasix] 40 mg PO DAILY 05/19/22 09/11/22 Gabapentin [Neurontin] 300 mg PO TID 05/19/22 09/11/22 Metoprolol Succinate (ER) [Toprol 100 mg PO DAILY 08/13/22 09/11/22 XL] amLODIPine [Norvasc] 10 mg PO DAILY 08/13/22 09/11/22 oxyCODONE-APAP 10-325MG [Percocet 1 tab PO Q6H PRN 09/11/22 09/11/22 10-325 mg] Previous Rx's Medication Instructions Recorded Rivaroxaban [Xarelto] 20 mg PO W/SUPPER 30 Days #30 tab 07/31/21 Allergies Allergy/AdvReac Type Severity Reaction Status Date / Time ibuprofen [From Motrin] AdvReac Nausea & Verified 10/09/22 11:17 Vomiting simvastatin [From Zocor] AdvReac Dizziness Verified 10/09/22 11:17 Review of Systems ROS Other: All systems not noted in ROS Statement are negative. <Dudley Maguire - Last Filed: 10/09/22 11:38> ROS Other: All systems not noted in ROS Statement are negative. <Jackson Garcia - Last Filed: 10/09/22 13:23> ROS Statement: Those systems with pertinent positive or pertinent negative responses have been documented in the HPI. Past Medical History Past Medical History: Atrial Fibrillation, COPD, Hyperlipidemia, Hypertension, Pneumonia Additional Past Medical History / Comment(s): Other HX; Costochondritis, chronic pain, chronic low back pain with bilateral sciatica, neuropathy bilateral hands/feet, migraines, kidney stones, past partial small bowel obstruction. HTN the last 10 yrs Stopped taking meds 5 yrs ago. COPD due to tobacco use History of Any Multi-Drug Resistant Organisms: MRSA Date of last positivie culture/infection: 05/19/22 MDRO Source:: TOE Past Surgical History: Heart Catheterization, Orthopedic Surgery Additional Past Surgical History / Comment(s): 03/14/18 Cardiac cath-normal coronaries, L shoulder rotator cuff repair x2, cervical injection., toe amputation Past Anesthesia/Blood Transfusion Reactions: No Reported Reaction Past Psychological History: Anxiety, Bipolar, Depression, Schizophrenia Smoking Status: Current every day smoker Past Alcohol Use History: None Reported Past Drug Use History: Marijuana, Prescription Drug Abuse - Past Family History Father Family Medical History: Myocardial Infarction ([place]) Additional Family Medical History / Comment(s): mi at age 35, still living Mother Family Medical History: Myocardial Infarction ([place]) Additional Family Medical History / Comment(s): Mother has had at least one [place]- pt unsure at what age. He has not had much contact with his mother since he was 17 yrs old. <Dudley Maguire - Last Filed: 10/09/22 11:38> General Exam Limitations: no limitations <Dudley Maguire - Last Filed: 10/09/22 11:38> General appearance: alert, in no apparent distress Head exam: Present: atraumatic, normocephalic Eye exam: Present: normal appearance Neck exam: Present: normal inspection Respiratory exam: Present: normal lung sounds bilaterally Cardiovascular Exam: Present: regular rate, normal rhythm Right Foot/Toe exam: Present: swelling (Blister on the sole of the foot near the first MPJ), amputation (Amputation of the second toe with purulent drainage with surrounding warmth, erythema, edema, and tenderness to palpation. 4 simple interrupted sutures on the dorsum of the foot, intact. Amputation of right third toe.) Neurological exam: Present: alert, oriented X3 Psychiatric exam: Present: normal affect, normal mood <TamarDelores blackburnJackson - Last Filed: 10/09/22 13:23> - General Exam Comments Initial Comments: Visual Physical Exam Vital signs reviewed General: Well-appearing, nontoxic, no acute distress. Head: Normocephalic, atraumatic Eyes: PERRLA, EOMI ENT: Airway patent Chest: Nonlabored breathing Skin: No visual rash, normal skin tone Neuro: Alert and oriented 3 Musculoskeletal: No gross abnormalities (Dudley Maguire) Course <TamarDelores blackburnJackson - Last Filed: 10/09/22 13:23> Vital Signs 10/09/22 11:13 Temperature 98.4 F Pulse Rate 74 Respiratory 18 Rate Blood Pressure 164/100 O2 Sat by Pulse 100 Oximetry - Reevaluation(s) Reevaluation #1: 10/09/22 13:[address] Glasgow with friend who accepts admission (Jackson Garcia) Medical Decision Making - Lab Data Result diagrams: 10/09/22 12:20 10/09/22 12:20 <TamarDelores blackburnJackson - Last Filed: 10/09/22 13:23> - Medical Decision Making Was pt. sent in by a medical professional or institution (, PA, VIBRATION TECHNICIAN, urgent care, hospital, or correction...) When possible be specific @ -[No] Did you speak to anyone other than the patient for history (EMS, parent, family, police, friend...)? What history was obtained from this source @ -[No] Did you review nursing and triage notes (agree or disagree)? Why? @ -[I reviewed and agree with nursing and triage notes] Were old charts reviewed (outside hosp., previous admission, EMS record, old EKG, old radiological studies, urgent care reports/EKG's, correction records)? Report findings @ -Old charts reviewed showing amputation of the right second toe on 08/15 recent discharge from this facility on 09/17 for osteomyelitis of the right foot. Differential Diagnosis (chest pain, altered mental status, abdominal pain women, abdominal pain men, vaginal bleeding, weakness, fever, dyspnea, syncope, head ache, dizziness, GI bleed, back pain, seizure, CVA, palpatations, mental health, musculoskeletal)? @ -Cellulitis, osteomyelitis, sepsis. This is not meant to be an all-inclusive list. EKG interpreted by me (3pts min.). @ -[As above] X-rays interpreted by me (1pt min.). @ -X-ray showed soft tissue edema suggestive of cellulitis. Additionally, lucencies of the third and fourth metatarsal possibly representing osteomyelitis. CT interpreted by me (1pt min.). @ -[None done] U/S interpreted by me (1pt. min.). @ -[None done] What testing was considered but not performed or refused? (CT, X-rays, U/S, labs)? Why? @ -[None] What meds were considered but not given or refused? Why? @ -[None] Did you discuss the management of the patient with other professionals (professionals i.e. , PA, VIBRATION TECHNICIAN, lab, RT, psych nurse, social services designee, turn out, teacher, air defence officer, case packer and sealer)? Give summary @ - Was smoking cessation discussed for >3mins.? @ -[No] Was critical care preformed (if so, how long)? @ -[No] Were there social determinants of health that impacted care today? How? (Homelessness, low income, unemployed, alcoholism, drug addiction, transportation, low edu. Level, literacy, decrease access to med. care, fci, rehab)? @ -[No] Was there de-escalation of care discussed even if they declined (Discuss DNR or withdrawal of care, Hospice)? DNR status @ -[No] What co-morbidities impacted this encounter? (DM, HTN, Smoking, COPD, CAD, Cancer, CVA, ARF, Chemo, Hep., AIDS, mental health diagnosis, sleep apnea, morbid obesity)? @ -[None] Was patient admitted / discharged? Hospital course, mention meds given and route, prescriptions, significant lab abnormalities, going to OR and other pertinent info. @ -Admitted. X-ray as above. An IV morphine with improvement of pain. Admitted and started on antibiotics with consults to ID and surgery. Undiagnosed new problem with uncertain prognosis? @ -[No] Drug Therapy requiring intensive monitoring for toxicity (Heparin, Nitro, Insulin, Cardizem)? @ -[No] Were any procedures done? @ -[No] Diagnosis/symptom? @ -[default] Acute, or Chronic, or Acute on Chronic? @ -[default] Uncomplicated (without systemic symptoms) or Complicated (systemic symptoms)? @ -[default] Side effects of treatment? @ -[No] Exacerbation, Progression, or Severe Exacerbation? @ -[No] Poses a threat to life or bodily function? How? (Chest pain, [place], [place], pneumonia, PE, COPD, DKA, ARF, appy, cholecystitis, CVA, Diverticulitis, Homicidal, Suicidal, threat to staff... and all critical care pts) @ -Yes, sepsis. (Jackson Garcia) - Lab Data Lab Results 10/09/22 10/09/22 10/09/22 Range/Units 12:20 12:20 12:20 WBC 7.8 (3.8-10.6) k/uL RBC 4.64 (4.30-5.90) m/uL Hgb 14.4 (13.0-17.5) gm/dL Hct 42.5 (39.0-53.0) % MCV 91.6 (80.0-100.0) fL MCH 31.1 (25.0-35.0) pg MCHC 34.0 (31.0-37.0) g/dL RDW 13.1 (11.5-15.5) % Plt Count 220 (150-450) k/uL MPV 8.6 Neutrophils % 77 % Lymphocytes % 13 % Monocytes % 7 % Eosinophils % 2 % Basophils % 0 % Neutrophils # 6.0 (1.3-7.7) k/uL Lymphocytes # 1.0 (1.0-4.8) k/uL Monocytes # 0.5 (0-1.0) k/uL Eosinophils # 0.1 (0-0.7) k/uL Basophils # 0.0 (0-0.2) k/uL Sodium 139 (137-145) mmol/L Potassium 3.5 (3.5-5.1) mmol/L Chloride 104 (98-107) mmol/L Carbon Dioxide 24 (22-30) mmol/L Anion Gap 11 mmol/L BUN 10 (9-20) mg/dL Creatinine 0.59 L (0.66-1.25) mg/dL Est GFR (CKD-EPI)AfAm >90 (>60 ml/min/1.73 sqM) Est GFR (CKD-EPI)NonAf >90 (>60 ml/min/1.73 sqM) Glucose 91 (74-99) mg/dL Plasma Lactic Acid George 0.8 (0.7-2.0) mmol/L Calcium 8.8 (8.4-10.2) mg/dL Total Bilirubin 0.6 (0.2-1.3) mg/dL AST 32 (17-59) U/L ALT 21 (4-49) U/L Alkaline Phosphatase 92 (38-126) U/L C-Reactive Protein 0.6 (<1.0) mg/dL Total Protein 7.4 (6.3-8.2) g/dL Albumin 4.2 (3.5-5.0) g/dL Disposition <Dudley Maguire - Last Filed: 10/09/22 11:38> Time of Disposition: 13:13 <Jackson Garcia - Last Filed: 10/09/22 13:23> Clinical Impression: Cellulitis Disposition: ADMITTED IP TO THIS [facility] Condition: Fair Referrals: Clif Glasgow MD [Primary Care Provider] - 1-2 days Eugene Rudd MD [STAFF PHYSICIAN] - 10/11/22 2:45 pm
[2022-10-09 12:29] LABS: Basophils % (A) 0 %; Eosinophils # (A) 0.1 k/uL (0-0.7); Eosinophils % (A) 2 %; HCT 42.5 % (39.0-53.0); HGB 14.4 gm/dL (13.0-17.5); Lymphocytes % (A) 13 %; MCH 31.1 pg (25.0-35.0); MCV 91.6 fL (80.0-100.0); Mean Platelet Volume 8.6; Monocytes # (A) 0.5 k/uL (0-1.0); Monocytes % (A) 7 %; Neutrophils % (A) 77 %; Platelet Count 220 k/uL (150-450); RBC 4.64 m/uL (4.30-5.90); RDW 13.1 % (11.5-15.5); WBC 7.8 k/uL (3.8-10.6)
[2022-10-09 12:42] LABS: ALT 21 U/L (4-49); AST 32 U/L (17-59); African American GFR (CKD) >90 (>60 ml/min/1.73 sqM); Albumin 4.2 g/dL (3.5-5.0); Alkaline Phosphatase 92 U/L (38-126); Anion Gap 11 mmol/L; Blood Urea Nitrogen 10 mg/dL (9-20); C Reactive Protein 0.6 mg/dL (<1.0); Calcium 8.8 mg/dL (8.4-10.2); Carbon Dioxide 24 mmol/L (22-30); Chloride 104 mmol/L (98-107); Glucose 91 mg/dL (74-99); Non-African American GFR(CKD) >90 (>60 ml/min/1.73 sqM); Potassium 3.5 mmol/L (3.5-5.1); Sodium 139 mmol/L (137-145); Total Bilirubin 0.6 mg/dL (0.2-1.3); Total Protein 7.4 g/dL (6.3-8.2)
[2022-10-09] MEDS ORDERED: MORPHINE SULFATE 4 MG/ML SYRINGE IVP STA (12:44)
--- NOTE | 2022-10-09 13:02 | XR ---
EXAMINATION TYPE: XR foot complete RT DATE OF EXAM: 10/09/2022 COMPARISON: 09/21/2022 HISTORY: Pain and swelling TECHNIQUE: Three views are submitted. FINDINGS: Diffuse soft tissue edema. There is evidence of previous partial amputations involving the second and third digits. Stable sclerotic change involving the distal phalanx first digit and mild hypertrophic arthropathy of the first MTP. There now is lucencies involving the head of the third and fourth metatarsals. IMPRESSION: 1. Diffuse soft tissue edema suggestive of cellulitis. There is now lucencies involving the head of t he third and fourth metatarsal could be on the basis of osteomyelitis. Finding is new from prior exam .
[2022-10-09] MEDS ORDERED: MORPHINE SULFATE 4 MG/ML SYRINGE IV PRN (13:24)
[2022-10-09] MEDS ORDERED: NALOXONE 0.4 MG/ML 1 ML VIAL IV PRN (13:24)
[2022-10-09] MEDS ORDERED: SODIUM CHLORIDE 0.9% 1,000 ML IV SCH (13:30)
[2022-10-09] MEDS ORDERED: VANCOMYCIN IV PER PHARMACY 1 EACH MISC MISCELLANE PRN (13:31)
[2022-10-09 13:36] LABS: Basophils % (A) 0 %; Eosinophils # (A) 0.2 k/uL (0-0.7); Eosinophils % (A) 2 %; HCT 44.3 % (39.0-53.0); HGB 14.9 gm/dL (13.0-17.5); Lymphocytes # (A) 1.1 k/uL (1.0-4.8); Lymphocytes % (A) 15 %; MCH 30.9 pg (25.0-35.0); MCHC 33.6 g/dL (31.0-37.0); MCV 92.1 fL (80.0-100.0); Mean Platelet Volume 8.7; Monocytes # (A) 0.4 k/uL (0-1.0); Monocytes % (A) 6 %; Neutrophils # (A) 5.4 k/uL (1.3-7.7); Neutrophils % (A) 76 %; Platelet Count 218 k/uL (150-450); RBC 4.81 m/uL (4.30-5.90); RDW 13.1 % (11.5-15.5); WBC 7.2 k/uL (3.8-10.6)
[2022-10-09] MEDS ORDERED: VANCOMYCIN 1,750 MG in SODIUM CHLORIDE 0.9% 500 ML 500 ML IVPB STA (13:42)
[2022-10-09] MEDS ORDERED: hydrALAZINE HCL 20 MG/ML 1 ML VIAL IVP STA (15:12)
[2022-10-09] MEDS ORDERED: PIPERACILLIN-TAZOBACTAM 3.375 GM in SODIUM CHLORIDE 0.9% 100 ML IVPB SCH (16:00)
[2022-10-09 21:04] VITALS: BP 149/99; PULSE 73; RESP 17; TEMP 98
[2022-10-09] MEDS ORDERED: VANCOMYCIN 1,500 MG in SODIUM CHLORIDE 0.9% 500 ML 500 ML IVPB SCH (22:00)
--- NOTE | 2022-10-10 07:44 | HP ---
HISTORY AND PHYSICAL CHIEF COMPLAINT: Pain, swelling, redness, and purulent drainage from the right foot. HISTORY OF PRESENT ILLNESS: This is an another admission for this noncompliant homeless person. He has had frequent and recurrent problems with infections and osteomyelitis in the feet with amputations. He presented on the day of admission with swelling, redness, pain and purulent drainage from the right foot, next to the great toe where his second toe was recently amputated. He follows with Dr. Rudd. He is always more concerned about narcotic analgesic than anything else. REVIEW OF SYSTEMS: He has had no fever, no chills, sepsis, confusion, hypotension, etc. Past medical history, family history and personal and social histories are all otherwise unchanged from his recent admitting and discharge summaries. ALLERGIES: He is allergic to NSAIDs, Zocor, and Cymbalta. MEDICATIONS: He is currently on albuterol, oxycodone, losartan, metoprolol, amlodipine, gabapentin, Xarelto, aspirin and nitroglycerin. He has a long-standing history of coronary artery disease, atherosclerotic cardiomyopathy, angina and CHF. Remainder of the history is unremarkable and unchanged. PHYSICAL EXAMINATION: VITAL SIGNS: Blood pressure is 140/98 with a pulse 66, respirations of 18, and temperature 97.8. GENERAL: He appeared to be in no acute distress. SKIN: Color was normal. The skin is warm and dry. HEAD, EARS, EYES, NOSE, MOUTH AND THROAT: Normal. CHEST: Clear. CARDIAC: Demonstrated sinus rhythm. ABDOMEN: Soft and nontender. EXTREMITIES: Normal except for the right foot where he had cellulitis with some purulent drainage lateral to the right great toe. NEUROLOGICAL: Intact. He is admitted to the hospital with diagnoses, 1. Osteomyelitis of the right foot. 2. Coronary artery disease. 3. Atherosclerotic cardiomyopathy. 4. Noncompliant individual. PLAN: 1. Bed rest. 2. IV fluids. 3. IV antibiotics. 4. Consult with Infectious Disease and Vascular Surgery. MMODL / IJN: [id number] /
== END 2022-10-09 21:57 | disposition left against medical advice (07) | DRG 349 ==
LOC: EC 10:54 → 5NMEDONC 13:30
PROVIDERS: ADMIT Family Medicine; ATTEND Family Medicine
DX: T87.43 Infection of amputation stump, right lower extremity (principal); M86.8X7 Other osteomyelitis, ankle and foot; E78.5 Hyperlipidemia, unspecified; I48.91 Unspecified atrial fibrillation; I25.10 Atherosclerotic heart disease of native coronary artery without angina pectoris; Z53.29 Procedure and treatment not carried out because of patient's decision for other reasons; E11.42 Type 2 diabetes mellitus with diabetic polyneuropathy; E11.69 Type 2 diabetes mellitus with other specified complication; G43.909 Migraine, unspecified, not intractable, without status migrainosus; F17.210 Nicotine dependence, cigarettes, uncomplicated; F31.9 Bipolar disorder, unspecified; F20.9 Schizophrenia, unspecified; L03.115 Cellulitis of right lower limb; J44.9 Chronic obstructive pulmonary disease, unspecified; I10 Essential (primary) hypertension; Z87.01 Personal history of pneumonia (recurrent); G89.29 Other chronic pain; Z87.442 Personal history of urinary calculi; Z87.19 Personal history of other diseases of the digestive system; Z86.14 Personal history of Methicillin resistant Staphylococcus aureus infection; Z89.411 Acquired absence of right great toe; Z91.198 Patient's noncompliance with other medical treatment and regimen for other reason
CPT/HCPCS: 36415; 80053; 83605; 85025; 86140; 87040; 87070; 87075; 87205; 96365; 96366; 96375; 96376; 99285

== ENCOUNTER 2023-03-30 13:07 | Emergency (ER) | payer OTHER ==
[2023-03-30 13:42] VITALS: TEMP 97.5
--- NOTE | 2023-03-30 13:50 | XR ---
EXAMINATION TYPE: XR foot complete LT DATE OF EXAM: 03/30/2023 CLINICAL HISTORY: N 1323 TECHNIQUE: Frontal, lateral and oblique images of the left foot are obtained. COMPARISON: None. FINDINGS: There is no acute fracture/dislocation evident. Partial amputation of the left third digit . The joint spaces appear within normal limits. The overlying soft tissue appears unremarkable. IMPRESSION: There is no acute fracture or dislocation. ICD 10 NO FRACTURE, INITIAL EVALUATION
--- NOTE | 2023-03-30 14:04 | ED ---
Extremity Problem HPI - General Source: patient, family, RN notes reviewed Mode of arrival: ambulatory Limitations: no limitations <Shahnaz Sheikh - Last Filed: 03/30/23 14:05> <Mary Mcdonough - Last Filed: 03/30/23 23:25> - General Stated complaint: black toe Time Seen by Provider: 03/30/23 14:03 - History of Present Illness Initial comments: Patient is a 52-year-old male presenting to the ER with chief complaint of left second toe pain. 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 Patient denies any current fevers, chills, night sweats. (Shahnaz Sheikh) Patient is a 52-year-old male who presents to the emergency department reporting to left second toe pain. 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 He has had multiple previous toe amputations. He reports that he has had increased pain in his left second toe. He takes Percocet at home and states that this has not been touching his pain. He has not seen Dr. Kc in several months who he used to follow with closely. He denies any pustular drainage from the site. No fevers or chills. No other alleviating, precipitating or modifying factors (Mary Mcdonough) - Related Data Home Medications Medication Instructions Recorded Confirmed Nitroglycerin Sl Tabs [Nitrostat] 0.4 mg SL Q5M PRN 06/28/21 10/09/22 Albuterol Sulfate [Proair Hfa] 2 puff INHALATION RT-QID PRN 10/14/21 10/09/22 Furosemide [Lasix] 40 mg PO DAILY 05/19/22 10/09/22 Gabapentin [Neurontin] 300 mg PO TID 05/19/22 10/09/22 Metoprolol Succinate (ER) [Toprol 100 mg PO DAILY 08/13/22 10/09/22 XL] amLODIPine [Norvasc] 10 mg PO DAILY 08/13/22 10/09/22 oxyCODONE-APAP 10-325MG [Percocet 1 tab PO Q6H PRN 09/11/22 10/09/22 10-325 mg] Cholecalciferol (Vitamin D3) 1,250 mcg PO Q7D 10/09/22 10/09/22 [Vitamin D3] Previous Rx's Medication Instructions Recorded Rivaroxaban [Xarelto] 20 mg PO W/SUPPER 30 Days #30 tab 07/31/21 Allergies Allergy/AdvReac Type Severity Reaction Status Date / Time ibuprofen [From Motrin] AdvReac Nausea & Verified 03/30/23 13:36 Vomiting simvastatin [From Zocor] AdvReac Dizziness Verified 03/30/23 13:36 Review of Systems ROS Other: All systems not noted in ROS Statement are negative. <Shahnaz Sheikh - Last Filed: 03/30/23 14:05> ROS Other: All systems not noted in ROS Statement are negative. <Mary Mcdonough - Last Filed: 03/30/23 23:25> ROS Statement: Those systems with pertinent positive or pertinent negative responses have been documented in the HPI. Past Medical History Past Medical History: Atrial Fibrillation, COPD, Hyperlipidemia, Hypertension, Pneumonia Additional Past Medical History / Comment(s): Other HX; Costochondritis, chronic pain, chronic low back pain with bilateral sciatica, neuropathy bilateral hands/feet, migraines, kidney stones, past partial small bowel obstruction. HTN the last 10 yrs Stopped taking meds 5 yrs ago. COPD due to tobacco use History of Any Multi-Drug Resistant Organisms: MRSA Date of last positivie culture/infection: 10/09/22 MDRO Source:: Right Foot Past Surgical History: Heart Catheterization, Orthopedic Surgery Additional Past Surgical History / Comment(s): 03/14/18 Cardiac cath-normal coronaries, L shoulder rotator cuff repair x2, cervical injection., toe amputation Past Anesthesia/Blood Transfusion Reactions: No Reported Reaction Past Psychological History: Anxiety, Bipolar, Depression, Schizophrenia Smoking Status: Current every day smoker Past Alcohol Use History: None Reported Past Drug Use History: Marijuana, Prescription Drug Abuse - Past Family History Father Family Medical History: Myocardial Infarction (SC) Additional Family Medical History / Comment(s): mi at age 35, still living Mother Family Medical History: Myocardial Infarction (SC) Additional Family Medical History / Comment(s): Mother has had at least one SC- pt unsure at what age. He has not had much contact with his mother since he was 17 yrs old. <Shahnaz Sheikh - Last Filed: 03/30/23 14:05> General Exam Limitations: no limitations <Shahnaz Sheikh - Last Filed: 03/30/23 14:05> General appearance: alert, in no apparent distress Head exam: Present: atraumatic, normocephalic, normal inspection Eye exam: Present: normal appearance, PERRL, EOMI. Absent: scleral icterus, conjunctival injection, periorbital swelling ENT exam: Present: normal exam, mucous membranes moist Neck exam: Present: normal inspection. Absent: tenderness, meningismus, lymphadenopathy Respiratory exam: Present: normal lung sounds bilaterally. Absent: respiratory distress, wheezes, rales, rhonchi, stridor Cardiovascular Exam: Present: regular rate, normal rhythm, normal heart sounds. Absent: systolic murmur, diastolic murmur, rubs, gallop, clicks GI/Abdominal exam: Present: soft, normal bowel sounds. Absent: distended, tenderness, guarding, rebound, rigid Extremities exam: Present: tenderness (To palpation of the left second toe. The re is extensive callus formation on the distal aspect of the left second toe. No redness, swelling or pustular drainage appreciated. No concern for active cellulitis. Amputation of the third digit), normal capillary refill. Absent: pedal edema, joint swelling, calf tenderness Back exam: Present: normal inspection Neurological exam: Present: alert, oriented X3, CN II-XII intact Psychiatric exam: Present: normal affect, normal mood Skin exam: Present: warm, dry, intact, normal color. Absent: rash <Mary Mcdonough - Last Filed: 03/30/23 23:25> - General Exam Comments Initial Comments: Visual Physical Exam Vital signs reviewed General: Well-appearing, nontoxic, no acute distress. Head: Normocephalic, atraumatic Eyes: PERRLA, EOMI ENT: Airway patent Chest: Nonlabored breathing Skin: No visual rash, normal skin tone Neuro: Alert and oriented 3 Musculoskeletal: No gross abnormalities (Shahnaz Sheikh) Course Vital Signs 03/30/23 03/30/23 03/30/23 13:33 17:47 19:09 Temperature 97.5 F L Pulse Rate 91 88 96 Respiratory 20 18 18 Rate Blood Pressure 208/131 203/119 209/125 O2 Sat by Pulse 96 98 99 Oximetry Medical Decision Making <Shahnaz Sheikh - Last Filed: 03/30/23 14:05> - Lab Data Result diagrams: 03/30/23 17:19 03/30/23 17:19 <Mary Mcdonough - Last Filed: 03/30/23 23:25> - Medical Decision Making I performed the quick note portion of the exam. Electronically signed by Shahnaz Sheikh PA-C (Shahnaz Sheikh) Was pt. sent in by a medical professional or institution (MELLISA Baxter, JAVA TECH LEAD, urgent care, hospital, or detention...) When possible be specific @ -No Did you speak to anyone other than the patient for history (EMS, parent, family, police, friend...)? What history was obtained from this source @ -Spoke with the patient's Did you review nursing and triage notes (agree or disagree)? Why? @ -I reviewed and agree with nursing and triage notes Were old charts reviewed (outside hosp., previous admission, EMS record, old EKG, old radiological studies, urgent care reports/EKG's, detention records)? Report findings @ -Old charts were reviewed including previous wound cultures and hospitalizations for antibiotics Differential Diagnosis (chest pain, altered mental status, abdominal pain women, abdominal pain men, vaginal bleeding, weakness, fever, dyspnea, syncope, headache, dizziness, GI bleed, back pain, seizure, CVA, palpatations, mental health, musculoskeletal)? @ -Cellulitis, chronic ulcer, abscess, osteomyelitis EKG interpreted by me (3pts min.). @ -Not done X-rays interpreted by me (1pt min.). @ -Yes and demonstrates no osteomyelitis CT interpreted by me (1pt min.). @ -None done U/S interpreted by me (1pt. min.). @ -None done What testing was considered but not performed or refused? (CT, X-rays, U/S, labs)? Why? @ -None What meds were considered but not given or refused? Why? @ -None Did you discuss the management of the patient with other professionals (vitaly joshi i.e. MELLISA Baxter, JAVA TECH LEAD, lab, RT, psych nurse, oncology social work, data center project manager, teacher, chief strategy officer, case filler)? Give summary @ -Spoke with Dr. Glasgow who was agreeable to my planned treatment Was smoking cessation discussed for >3mins.? @ -No Was critical care preformed (if so, how long)? @ -No Were there social determinants of health that impacted care today? How? (Homelessness, low income, unemployed, alcoholism, drug addiction, transportation, low edu. Level, literacy, decrease access to med. care, [facility], rehab)? @ -No Was there de-escalation of care discussed even if they declined (Discuss DNR or withdrawal of care, Hospice)? DNR status @ -No What co-morbidities impacted this encounter? (DM, HTN, Smoking, COPD, CAD, Cancer, CVA, ARF, Chemo, Hep., AIDS, mental health diagnosis, sleep apnea, morbid obesity)? @ -Osteomyelitis, chronic pain Was patient admitted / discharged? Hospital course, mention meds given and route, prescriptions, significant lab abnormalities, going to OR and other pertinent info. @ -Charged. Upon arrival patient is evaluated in room 29. Laboratory studies are conducted and an x-ray was performed. Patient has no fever or elevated white blood cell count. X-ray is not concerning for osteomyelitis. Clinical exam demonstrates a callus to the distal tip of the left toe however no active cellulitis or abscess. At this time I do feel the patient is stable for discharge home however he needs to follow-up with wound care and have debride min of the callus performed. Patient understood this. Requested he return for any new or worsening symptoms. Patient discharged in stable condition Undiagnosed new problem with uncertain prognosis? @ -No Drug Therapy requiring intensive monitoring for toxicity (Heparin, Nitro, Insulin, Cardizem)? @ -No Were any procedures done? @ -No Diagnosis/symptom? @ -Acute left second toe pain, chronic callus left second toe, history of osteomyelitis Acute, or Chronic, or Acute on Chronic? @ -acute on chronic Uncomplicated (without systemic symptoms) or Complicated (systemic symptoms)? @ -complicated Side effects of treatment? @ -No Exacerbation, Progression, or Severe Exacerbation? @ -No Poses a threat to life or bodily function? How? (Chest pain, USA, SC, pneumonia, PE, COPD, DKA, ARF, appy, cholecystitis, CVA, Diverticulitis, Homicidal, Suicida l, threat to staff... and all critical care pts) @ -No (Mary Mcdonough) - Lab Data Lab Results 03/30/23 03/30/23 03/30/23 Range/Units 17:19 17:19 17:19 WBC 9.3 (3.8-10.6) k/uL RBC 5.10 (4.30-5.90) m/uL Hgb 16.0 (13.0-17.5) gm/dL Hct 46.1 (39.0-53.0) % MCV 90.3 (80.0-100.0) fL MCH 31.4 (25.0-35.0) pg MCHC 34.7 (31.0-37.0) g/dL RDW 13.6 (11.5-15.5) % Plt Count 162 (150-450) k/uL MPV 9.6 Neutrophils % 74 % Lymphocytes % 15 % Monocytes % 8 % Eosinophils % 1 % Basophils % 1 % Neutrophils # 6.9 (1.3-7.7) k/uL Lymphocytes # 1.4 (1.0-4.8) k/uL Monocytes # 0.7 (0-1.0) k/uL Eosinophils # 0.1 (0-0.7) k/uL Basophils # 0.1 (0-0.2) k/uL Sodium 137 (137-145) mmol/L Potassium 4.2 (3.5-5.1) mmol/L Chloride 101 (98-107) mmol/L Carbon Dioxide 26 (22-30) mmol/L Anion Gap 10 mmol/L BUN 13 (9-20) mg/dL Creatinine 0.69 (0.66-1.25) mg/dL Est GFR (CKD-EPI)AfAm >90 (>60 ml/min/1.73 sqM) Est GFR (CKD-EPI)NonAf >90 (>60 ml/min/1.73 sqM) Glucose 93 (74-99) mg/dL Plasma Lactic Acid George 1.1 (0.7-2.0) mmol/L Calcium 9.4 (8.4-10.2) mg/dL Total Bilirubin 0.8 (0.2-1.3) mg/dL AST 39 (17-59) U/L ALT 25 (4-49) U/L Alkaline Phosphatase 87 (38-126) U/L Total Protein 8.0 (6.3-8.2) g/dL Albumin 4.5 (3.5-5.0) g/dL Disposition <Shahnaz Sheikh - Last Filed: 03/30/23 14:05> Is patient prescribed a controlled substance at d/c from ED?: No Time of Disposition: 18:45 <Mary Mcdonough - Last Filed: 03/30/23 23:25> Clinical Impression: Chronic toe ulcer Disposition: HOME SELF-CARE Condition: Stable Instructions (If sedation given, give patient instructions): Chronic Wounds (ED) Additional Instructions: Please make an appointment with Dr. Rudd. Take your pain medications as directed. Return for any new or worsening symptoms Referrals: Clif Glasgow MD [Primary Care Provider] - 1-2 days Eugene Rudd MD [STAFF PHYSICIAN] - 1-2 days
[2023-03-30 17:41] LABS: Basophils # (A) 0.1 k/uL (0-0.2); Basophils % (A) 1 %; Eosinophils # (A) 0.1 k/uL (0-0.7); Eosinophils % (A) 1 %; HCT 46.1 % (39.0-53.0); Lymphocytes # (A) 1.4 k/uL (1.0-4.8); Lymphocytes % (A) 15 %; MCH 31.4 pg (25.0-35.0); MCHC 34.7 g/dL (31.0-37.0); MCV 90.3 fL (80.0-100.0); Mean Platelet Volume 9.6; Monocytes # (A) 0.7 k/uL (0-1.0); Monocytes % (A) 8 %; Neutrophils # (A) 6.9 k/uL (1.3-7.7); Neutrophils % (A) 74 %; Platelet Count 162 k/uL (150-450); RDW 13.6 % (11.5-15.5); WBC 9.3 k/uL (3.8-10.6)
[2023-03-30 17:52] LABS: ALT 25 U/L (4-49); AST 39 U/L (17-59); African American GFR (CKD) >90 (>60 ml/min/1.73 sqM); Albumin 4.5 g/dL (3.5-5.0); Alkaline Phosphatase 87 U/L (38-126); Anion Gap 10 mmol/L; Blood Urea Nitrogen 13 mg/dL (9-20); Calcium 9.4 mg/dL (8.4-10.2); Carbon Dioxide 26 mmol/L (22-30); Chloride 101 mmol/L (98-107); Glucose 93 mg/dL (74-99); Non-African American GFR(CKD) >90 (>60 ml/min/1.73 sqM); Potassium 4.2 mmol/L (3.5-5.1); Sodium 137 mmol/L (137-145); Total Bilirubin 0.8 mg/dL (0.2-1.3)
[2023-03-30 17:54] VITALS: RESP 18
[2023-03-30] MEDS ORDERED: HYDROmorphone 1 MG/ML 1 ML SYRINGE IVP STA (18:38)
[2023-03-30 19:34] VITALS: BP 209/125; PULSE 96
== END 2023-03-30 19:10 | disposition home or self-care (01) ==
LOC: EC 13:07
DX: L97.529 Non-pressure chronic ulcer of other part of left foot with unspecified severity (principal); I10 Essential (primary) hypertension; I48.91 Unspecified atrial fibrillation; J44.9 Chronic obstructive pulmonary disease, unspecified; F41.9 Anxiety disorder, unspecified; F31.9 Bipolar disorder, unspecified; F17.200 Nicotine dependence, unspecified, uncomplicated; F12.90 Cannabis use, unspecified, uncomplicated; Z88.6 Allergy status to analgesic agent; Z88.8 Allergy status to other drugs, medicaments and biological substances; Z79.899 Other long term (current) drug therapy
CPT/HCPCS: 36415; 80053; 83605; 85025; 73630; 99284; 96374; J1170

== ENCOUNTER 2023-05-04 14:35 | Observation (INO) | payer OTHER ==
[2023-05-04] MEDS ORDERED: SODIUM CHLORIDE 0.9% 1,000 ML IV STA (15:48)
[2023-05-04] MEDS ORDERED: ONDANSETRON 4 MG/2 ML VIAL IVP PRN (15:48)
[2023-05-04] MEDS ORDERED: MORPHINE SULFATE 4 MG/ML SYRINGE IV STA (15:48)
[2023-05-04] MEDS ORDERED: NALOXONE 0.4 MG/ML 1 ML VIAL IV PRN (15:48)
[2023-05-04] MEDS ORDERED: ONDANSETRON 4 MG/2 ML VIAL IVP STA (15:48)
--- NOTE | 2023-05-04 15:50 | ED ---
Lower Extremity Injury HPI - General Chief Complaint: Extremity Injury, Lower Stated Complaint: post op comp Time Seen by Provider: 05/04/23 15:20 Source: patient, RN notes reviewed, old records reviewed Mode of arrival: ambulatory Limitations: no limitations - History of Present Illness Initial Comments: This is a 52-year-old male to the ER today. Presents today for evaluation regards to recheck recheck of wound. Patient has foot evaluation left foot evaluation it does show significant infection of the left postoperative toe with drainage, not malodorous with red pain and swelling of that left foot. Does have significant medical history consistent for atherosclerosis and heart disease, prior amputations not currently on antibiotics without fever MD Complaint: other (Recheck of postoperative left second toe) -: days(s) Injury: Foot: Left, Toes: Left Type of Injury: other (Surgery) Place: home Severity: moderate Improves With: nothing Worsens With: nothing Associated Symptoms: swelling, numbness, able to partially bear weight Treatments Prior to Arrival: other (0) - Related Data Home Medications Medication Instructions Recorded Confirmed Nitroglycerin Sl Tabs [Nitrostat] 0.4 mg SL Q5M PRN 06/28/21 05/04/23 oxyCODONE-APAP 10-325MG [Percocet 1 tab PO TID PRN 09/11/22 05/04/23 10-325 mg] Gabapentin 600 mg PO TID PRN 05/04/23 05/04/23 Sennosides [Senokot] 8.6 mg PO BID 05/04/23 05/04/23 amLODIPine [Norvasc] 2.5 mg PO DAILY 05/04/23 05/04/23 hydrALAZINE HCL [Apresoline] 25 mg PO TID 05/04/23 05/04/23 lisinopriL [Zestril] 40 mg PO DAILY 05/04/23 05/04/23 methocarbamoL [Robaxin] 500 mg PO QID 05/04/23 05/04/23 Previous Rx's Medication Instructions Recorded Rivaroxaban [Xarelto] 20 mg PO W/SUPPER 30 Days #30 tab 07/31/21 Sulfamethox-Tmp 800-160Mg [Bactrim 1 each PO BID #20 tab 05/08/23 DS 800-160 mg] Allergies Allergy/AdvReac Type Severity Reaction Status Date / Time ibuprofen [From Motrin] AdvReac Nausea & Verified 05/04/23 17:05 Vomiting simvastatin [From Zocor] AdvReac Dizziness Verified 05/04/23 17:05 Review of Systems ROS Statement: Those systems with pertinent positive or pertinent negative responses have been documented in the HPI. ROS Other: All systems not noted in ROS Statement are negative. Past Medical History Past Medical History: Atrial Fibrillation, COPD, Hyperlipidemia, Hypertension, Pneumonia Additional Past Medical History / Comment(s): Other HX; Costochondritis, chronic pain, chronic low back pain with bilateral sciatica, neuropathy bilateral hands/feet, migraines, kidney stones, past partial small bowel obstruction. HTN the last 10 yrs Stopped taking meds 5 yrs ago. COPD due to tobacco use History of Any Multi-Drug Resistant Organisms: MRSA Date of last positivie culture/infection: 10/09/22 MDRO Source:: Right Foot Past Surgical History: Heart Catheterization, Orthopedic Surgery Additional Past Surgical History / Comment(s): 03/14/18 Cardiac cath-normal coronaries, L shoulder rotator cuff repair x2, cervical injection., toe amputation Past Anesthesia/Blood Transfusion Reactions: No Reported Reaction Past Psychological History: Anxiety, Bipolar, Depression, Schizophrenia Smoking Status: Current every day smoker Past Alcohol Use History: None Reported Past Drug Use History: Marijuana, Prescription Drug Abuse - Past Family History Father Family Medical History: Myocardial Infarction (ME) Additional Family Medical History / Comment(s): mi at age 35, still living Mother Family Medical History: Myocardial Infarction (ME) Additional Family Medical History / Comment(s): Mother has had at least one ME- pt unsure at what age. He has not had much contact with his mother since he was 17 yrs old. General Exam Limitations: no limitations General appearance: alert, in no apparent distress Head exam: Present: atraumatic, normocephalic, normal inspection Eye exam: Present: normal appearance, PERRL, EOMI. Absent: scleral icterus, conjunctival injection, periorbital swelling ENT exam: Present: normal exam, mucous membranes moist Neck exam: Present: normal inspection. Absent: tenderness, meningismus, lymphad enopathy Respiratory exam: Present: normal lung sounds bilaterally. Absent: respiratory distress, wheezes, rales, rhonchi, stridor Cardiovascular Exam: Present: regular rate, normal rhythm, normal heart sounds. Absent: systolic murmur, diastolic murmur, rubs, gallop, clicks GI/Abdominal exam: Present: soft, normal bowel sounds. Absent: distended, tenderness, guarding, rebound, rigid Extremities exam: Present: normal inspection, full ROM, normal capillary refill. Absent: tenderness, pedal edema, joint swelling, calf tenderness Back exam: Present: normal inspection Neurological exam: Present: alert, oriented X3, CN II-XII intact Psychiatric exam: Present: normal affect, normal mood Skin exam: Present: warm, dry, intact, normal color. Absent: rash Course Vital Signs 05/04/23 05/04/23 05/04/23 14:42 16:48 18:00 Temperature 98.6 F Pulse Rate 67 70 72 Pulse Rate [ Pulse Oximetery ] Respiratory 16 18 18 Rate Blood Pressure 194/99 156/95 138/78 Blood Pressure [Right Arm] O2 Sat by Pulse 99 98 98 Oximetry 05/04/23 05/04/23 05/04/23 19:40 20:00 21:26 Temperature 98.1 F 97.9 F Pulse Rate 63 63 Pulse Rate [ 58 L Pulse Oximetery ] Respiratory 18 16 18 Rate Blood Pressure 139/86 161/90 Blood Pressure 176/98 [Right Arm] O2 Sat by Pulse 100 100 99 Oximetry - Reevaluation(s) Reevaluation #1: 05/04/23 16:17 Records reviewed Reevaluation #2: 05/04/23 16:17 Patient has improvement in pain here in the ER Reevaluation #3: 05/04/23 16:17 Patient informed results and questions answered Reevaluation #4: 05/04/23 16:17 Was pt. sent in by a medical professional or institution (, PA, VICE PRESIDENT NETWORK, urgent care, hospital, or half-way...) When possible be specific @ -no Did you speak to anyone other than the patient for history (EMS, parent, family, police, friend...)? What history was obtained from this source @ -no Did you review nursing and triage notes (agree or disagree)? Why? @ -agree Are old charts reviewed (outside hosp., previous admission, EMS record, old EKG, old radiological studies, urgent care reports/EKG's, half-way records)? Report findings @ -yes Differential Diagnosis (chest pain, altered mental status, abdominal pain women, abdominal pain men, vaginal bleeding, weakness, fever, dyspnea, syncope, headache, dizziness, GI bleed, back pain, seizure, CVA, palpatations, mental health, musculoskeletal)? @ -prior EKG interpreted by me (3pts min.). @ -yes X-rays interpreted by me (1pt min.). @ -yes CT interpreted by me (1pt min.). @ -no U/S interpreted by me (1pt. min.). @ -no What testing was considered but not performed or refused? (CT, X-rays, U/S, labs)? Why? @ -none What meds were considered but not given or refused? Why? @ -none Did you discuss the management of the patient with other professionals (professionals i.e. , PA, VICE PRESIDENT [employer], lab, RT, psych nurse, social sciences professor, ethnographic materials conservator, t eacher, loan review officer, shoe caser)? Give summary @ -no Was smoking cessation discussed for >3mins.? @ -no Was critical care preformed (if so, how long)? @ -no Were there social determinants of health that impacted care today? How? (Homelessness, low income, unemployed, alcoholism, drug addiction, transportation, low edu. Level, literacy, decrease access to med. care, care home, rehab)? @ -none Was there de-escalation of care discussed even if they declined (Discuss DNR or withdrawal of care, Hospice)? DNR status @ -no What co-morbidities impacted this encounter? (DM, HTN, Smoking, COPD, CAD, Cancer, CVA, ARF, Chemo, Hep., AIDS, mental health diagnosis, sleep apnea, morbid obesity)? @ -none Was patient admitted / discharged? Hospital course, mention meds given and route, prescriptions, significant lab abnormalities, going to OR and other pertinent info. @ - 52 male to the ER will be admitted for foot pain on postoperative foot pain with recent past surgery, Dr. Rudd. We will give wound care IV antibiotics and patient will be reevaluated Admitted Undiagnosed new problem with uncertain prognosis? @ -no Drug Therapy requiring intensive monitoring for toxicity (Heparin, Nitro, Insulin, Cardizem)? @ -no Were any procedures done? @ -no Diagnosis/symptom? @ -Foot and Toe gangrene Acute, or Chronic, or Acute on Chronic? @ -Acute Uncomplicated (without systemic symptoms) or Complicated (systemic symptoms)? @ -Complicated Side effects of treatment? @ -no Exacerbation, Progression, or Severe Exacerbation? @ -exacerbation Poses a threat to life or bodily function? How? (Chest pain, USA, ME, pneumonia, PE, COPD, DKA, ARF, appy, cholecystitis, CVA, Diverticulitis, Homicidal, Suicidal, threat to staff... and all critical care pts) @ -yes with a threat to 11 gangrene - Consultations Consultation #1: With Dr. Glasgow who agrees to admit this patient Medical Decision Making - Medical Decision Making 52 male to the ER will be admitted for foot pain on postoperative foot pain with passive surgery, Dr. Rudd. We will give wound care IV antibiotics and patient will be reevaluated - Lab Data Result diagrams: 05/05/23 06:07 05/08/23 05:55 - EKG Data -: EKG Interpreted by Me (EKG is sinus 69 MT 160 QRS 99 QTc 453) - Radiology Data Radiology results: report reviewed (Tray left foot positive for infection and swelling), image reviewed Disposition Clinical Impression: Osteomyelitis of toe of left foot, Cellulitis, Infected surgical wound Disposition: ADMITTED IP TO THIS HOSP Condition: Fair Is patient prescribed a controlled substance at d/c from ED?: No Time of Disposition: 16:00
[2023-05-04 16:16] LABS: Basophils % (A) 1 %; Eosinophils # (A) 0.3 k/uL (0-0.7); Eosinophils % (A) 5 %; HCT 44.1 % (39.0-53.0); Lymphocytes # (A) 1.2 k/uL (1.0-4.8); Lymphocytes % (A) 17 %; MCH 31.4 pg (25.0-35.0); MCV 92.6 fL (80.0-100.0); Mean Platelet Volume 9.3; Monocytes # (A) 0.4 k/uL (0-1.0); Monocytes % (A) 6 %; Neutrophils # (A) 4.9 k/uL (1.3-7.7); Neutrophils % (A) 70 %; Platelet Count 174 k/uL (150-450); RBC 4.77 m/uL (4.30-5.90); RDW 13.3 % (11.5-15.5)
[2023-05-04 16:24] LABS: ALT 19 U/L (4-49); African American GFR (CKD) >90 (>60 ml/min/1.73 sqM); Albumin 4.3 g/dL (3.5-5.0); Anion Gap 10 mmol/L; Blood Urea Nitrogen 16 mg/dL (9-20); Calcium 8.9 mg/dL (8.4-10.2); Carbon Dioxide 26 mmol/L (22-30); Chloride 103 mmol/L (98-107); Glucose 90 mg/dL (74-99); Non-African American GFR(CKD) >90 (>60 ml/min/1.73 sqM); Phosphorus 3.4 mg/dL (2.5-4.5); Sodium 139 mmol/L (137-145); Total Bilirubin 0.5 mg/dL (0.2-1.3); Total Protein 7.5 g/dL (6.3-8.2)
[2023-05-04 16:26] LABS: AST 35 U/L (17-59); Alkaline Phosphatase 111 U/L (38-126); INR 0.9 (<1.2); Magnesium 1.9 mg/dL (1.6-2.3); Partial Thromboplastin Time 24.8 sec (22.0-30.0); Potassium 4.3 mmol/L (3.5-5.1); Prothrombin Time 9.8 sec (10.0-12.5)
[2023-05-04 16:32] LABS: NT-Pro-B-Type Natriuretic Pept 244 pg/mL
--- NOTE | 2023-05-04 16:47 | XR ---
EXAMINATION TYPE: XR foot complete LT DATE OF EXAM: 05/04/2023 4:41 PM CLINICAL INDICATION:Male, 52 years old with history of pain; COMPARISON: 03/30/2023 TECHNIQUE: XR foot complete LT examined in the AP, oblique, and lateral projections. FINDINGS: Redemonstration of postsurgical change of the second and third digit. No evidence for osseous erosion . No evidence of fracture or dislocation. There is multifocal degeneration with joint space narrowing . Calcaneal Achilles enthesophyte formation. There is soft tissue swelling throughout the foot. IMPRESSION: 1. Soft tissue swelling with postsurgical change involving the second and third digit without eviden ce for osseous erosion. Correlate for cellulitis. 2. No evidence of fracture.
[2023-05-04] MEDS ORDERED: HYDROmorphone 1 MG/ML 1 ML SYRINGE IVP STA (19:33)
[2023-05-04] MEDS ORDERED: NITROGLYCERIN SL TABS 0.4 MG TAB SUBLINGUAL PRN (21:45)
[2023-05-04] MEDS ORDERED: GABAPENTIN 300 MG CAP PO PRN (21:45)
[2023-05-04] MEDS: methocarbamoL 500 MG TAB PO SCH (22:04)
[2023-05-04] MEDS: oxyCODONE-APAP 10-325MG 1 EACH TAB PO PRN (22:04)
[2023-05-04] MEDS: hydrALAZINE HCL 25 MG TAB PO SCH (22:04)
[2023-05-04] MEDS: RIVAROXABAN 20 MG TAB PO SCH (22:04)
[2023-05-04] MEDS: HYDROmorphone 1 MG/ML 1 ML SYRINGE IVP PRN (23:33)
--- NOTE | 2023-05-05 02:25 | HP ---
HISTORY AND PHYSICAL CHIEF COMPLAINT: Open and draining wound on the left foot. HISTORY OF PRESENT ILLNESS: This is another admission of many for this gentleman who has had longstanding problem with ischemia in both feet and has had several toes removed. The most recent one was the left second toe. He has been having difficulty there since with drainage, cellulitis, edema, and pain. He came in, because it was getting worse. REVIEW OF SYSTEMS: He has otherwise not had any significant symptoms. He does have coronary artery disease, COPD, and congestive heart failure. PHYSICAL EXAMINATION: VITAL SIGNS: Normal. HEAD, EARS, EYES, NOSE, MOUTH, AND THROAT: Normal. CHEST: Clear. CARDIAC: Unremarkable. ABDOMEN: Soft and nontender. EXTREMITIES: Reveal drainage from the base of the recently amputated left 2nd toe with slight cellulitis involving the distal foot. Pulses were diminished in the foot and leg. IMPRESSION: 1. Infection in previous amputation site of the 2nd toe on the left foot. 2. Rule out osteomyelitis. 3. Atherosclerotic cardiovascular disease. 4. Coronary artery disease. 5. Atherosclerotic cardiomyopathy. 6. Hypertension, uncontrolled. 7. Chronic obstructive pulmonary disease. PLAN: Bed rest, IV fluids, and IV antibiotics, and refer to Vascular Surgery. MMODL / IJN: [id number] /
[2023-05-05] MEDS: HYDROmorphone 1 MG/ML 1 ML SYRINGE IVP PRN ×5 (03:39→21:06)
[2023-05-05] MEDS: methocarbamoL 500 MG TAB PO SCH ×4 (08:32→20:31)
[2023-05-05] MEDS: hydrALAZINE HCL 25 MG TAB PO SCH ×3 (08:32→20:31)
[2023-05-05] MEDS: SENNOSIDES 8.6 MG TAB PO SCH ×2 (08:33→20:31)
[2023-05-05] MEDS: lisinopriL 20 MG TAB PO SCH (08:33)
[2023-05-05] MEDS: amLODIPine 2.5 MG TAB PO SCH (08:33)
[2023-05-05 09:09] LABS: ALT 15 U/L (10-49); AST 23 U/L (14-35); Albumin 3.8 g/dL (3.8-4.9); Albumin/Globulin Ratio 1.58 Ratio (1.60-3.17); Alkaline Phosphatase 92 U/L (41-126); BUN/Creat Ratio 13.44 Ratio (12.00-20.00); Blood Urea Nitrogen 12.1 mg/dL (9.0-27.0); Calcium 8.6 mg/dL (8.7-10.3); Carbon Dioxide 25.7 mmol/L (21.6-31.8); Chloride 106 mmol/L (96-109); Globulin 2.4 g/dL (1.6-3.3); Glucose 89 mg/dL (70-110); Phosphorus 3.6 mg/dL (2.4-5.1); Potassium 4.4 mmol/L (3.5-5.5); Sodium 139 mmol/L (135-145); Total Bilirubin <0.2 mg/dL (0.3-1.2); Total Protein 6.2 g/dL (6.2-8.2)
[2023-05-05 09:11] LABS: Basophils # (A) 0.04 X 10*3/uL (0.00-0.10); Basophils % (A) 0.8 %; Eosinophils # (A) 0.29 X 10*3/uL (0.04-0.35); Eosinophils % (A) 5.5 %; HCT 40.6 % (39.6-50.0); HGB 13.5 g/dL (13.0-17.0); Lymphocytes # (A) 1.48 X 10*3/uL (0.90-5.00); Lymphocytes % (A) 28.1 %; MCH 30.5 pg (27.0-32.0); MCHC 33.3 g/dL (32.0-37.0); MCV 91.6 FL (80.0-97.0); Mean Platelet Volume 11.4 FL (9.5-12.2); Monocytes # (A) 0.74 X 10*3/uL (0.20-1.00); Monocytes % (A) 14.1 %; NRBC Per 100 WBC 0 X 10*3/uL (0.00-0.01); Neutrophils # (A) 2.68 X 10*3/uL (1.80-7.70); Neutrophils % (A) 50.9 %; Platelet Count 177 X 10*3/uL (140-440); RBC 4.43 X 10*6/uL (4.40-5.60); RDW 13.6 % (11.5-14.5); WBC 5.26 X 10*3/uL (4.50-10.00)
[2023-05-05] MEDS: COLLAGENASE 250 UNIT/GM OINTMENT 30 GM TUBE TOPICAL SCH (10:56)
--- NOTE | 2023-05-05 10:58 | P.GSCN ---
History of Present Illness History of present illness: 52-year-old gentleman well-known to me from the paspatient al 52-year-old gentleman well known to me from last. Ray had a right foot second toe amputation done about 3 weeks ago she was discharged in satisfactory condition patient was supposed to see me in the office he never showed up for his appointment he came to the emergency room last night with history of redness and cellulitis of the stump site no drainage noted stitches are but it and intact patient had a left foot third toe removed in the past Medical history history of chronic back pain atherosclerosis of the heart, hyp ertension, Personal history history of smoking continue to smoke On examination neck is supple no bruit appreciated chest is clear few crackles the lung bases first and second sound present Abdomen soft nontender femoral are palpable bilateral right foot stump site has some redness and cellulitis no drainage noted stitches are intact without but it stitches were removed Plan is patient needs antibiotic consult for , nonweightbearing follow with you Past Medical History Past Medical History: Atrial Fibrillation, COPD, Hyperlipidemia, Hypertension, Pneumonia Additional Past Medical History / Comment(s): Other HX; Costochondritis, chronic pain, chronic low back pain with bilateral sciatica, neuropathy bilateral hands/feet, migraines, kidney stones, past partial small bowel obstruction. HTN the last 10 yrs Stopped taking meds 5 yrs ago. COPD due to tobacco use History of Any Multi-Drug Resistant Organisms: MRSA Year Discovered:: 10/09/22 MDRO Source:: Right Foot Past Surgical History: Heart Catheterization, Orthopedic Surgery Additional Past Surgical History / Comment(s): 03/14/18 Cardiac cath-normal coronaries, L shoulder rotator cuff repair x2, cervical injection., toe amputation left foot 2nd and 3rd toe and 2nd and 3rd toe amputated from right foot Past Anesthesia/Blood Transfusion Reactions: No Reported Reaction Past Psychological History: Anxiety, Bipolar, Depression, Schizophrenia Smoking Status: Current every day smoker Past Alcohol Use History: None Reported Additional Past Alcohol Use History / Comment(s): Started smoking at age 15- smoked 1 ppd but has cut down to 1/2 pack a day Past Drug Use History: Marijuana, Prescription Drug Abuse Additional Drug Use History / Comment(s): Pt smokes marijuana daily, and regular cigarrettes daily - Past Family History Father Family Medical History: Myocardial Infarction ([place]) Additional Family Medical History / Comment(s): mi at age 35, still living Mother Family Medical History: Myocardial Infarction ([place]) Additional Family Medical History / Comment(s): Mother has had at least one [place]- pt unsure at what age. He has not had much contact with his mother since he was 17 yrs old. Medications and Allergies Home Medications Medication Instructions Recorded Confirmed Type Nitroglycerin Sl Tabs [Nitrostat] 0.4 mg SL Q5M PRN 06/28/21 05/04/23 History Rivaroxaban [Xarelto] 20 mg PO W/SUPPER 30 Days #30 tab 07/31/21 05/04/23 Rx oxyCODONE-APAP 10-325MG [Percocet 1 tab PO TID PRN 09/11/22 05/04/23 History 10-325 mg] Gabapentin 600 mg PO TID PRN 05/04/23 05/04/23 History Sennosides [Senokot] 8.6 mg PO BID 05/04/23 05/04/23 History amLODIPine [Norvasc] 2.5 mg PO DAILY 05/04/23 05/04/23 History hydrALAZINE HCL [Apresoline] 25 mg PO TID 05/04/23 05/04/23 History lisinopriL [Zestril] 40 mg PO DAILY 05/04/23 05/04/23 History methocarbamoL [Robaxin] 500 mg PO QID 05/04/23 05/04/23 History Allergies Allergy/AdvReac Type Severity Reaction Status Date / Time ibuprofen [From Motrin] AdvReac Nausea & Verified 05/04/23 17:05 Vomiting simvastatin [From Zocor] AdvReac Dizziness Verified 05/04/23 17:05 Surgical - Exam Vital Signs Temp Pulse Resp BP Pulse Ox 98.6 F 67 16 194/99 99 05/04/23 14:42 05/04/23 14:42 05/04/23 14:42 05/04/23 14:42 05/04/23 14:42 Results - Labs 05/05/23 06:07 05/05/23 06:07 Abnormal Lab Results - Last 24 Hours (Table) 05/04/23 05/05/23 Range/Units 15:53 06:07 PT 9.8 L (10.0-12.5) sec Calcium 8.6 L (8.7-10.3) mg/dL Total Bilirubin <0.2 L (0.3-1.2) mg/dL Albumin/Globulin Ratio 1.58 L (1.60-3.17) Ratio Diabetes panel 05/04/23 05/05/23 Range/Units 15:53 06:07 Sodium 139 139 (137-145) mmol/L Potassium 4.3 4.4 (3.5-5.1) mmol/L Chloride 103 106 (98-107) mmol/L Carbon Dioxide 26 25.7 (22-30) mmol/L BUN 16 12.1 (9-20) mg/dL Creatinine 0.73 0.9 (0.66-1.25) mg/dL Glucose 90 89 (74-99) mg/dL Calcium 8.9 8.6 L (8.4-10.2) mg/dL AST 35 23 (17-59) U/L ALT 19 15 (4-49) U/L Alkaline Phosphatase 111 92 (38-126) U/L Total Protein 7.5 6.2 (6.3-8.2) g/dL Albumin 4.3 3.8 (3.5-5.0) g/dL Calcium panel 05/04/23 05/05/23 Range/Units 15:53 06:07 Calcium 8.9 8.6 L (8.4-10.2) mg/dL Phosphorus 3.4 3.6 (2.5-4.5) mg/dL Albumin 4.3 3.8 (3.5-5.0) g/dL Pituitary panel 05/04/23 05/05/23 Range/Units 15:53 06:07 Sodium 139 139 (137-145) mmol/L Potassium 4.3 4.4 (3.5-5.1) mmol/L Chloride 103 106 (98-107) mmol/L Carbon Dioxide 26 25.7 (22-30) mmol/L BUN 16 12.1 (9-20) mg/dL Creatinine 0.73 0.9 (0.66-1.25) mg/dL Glucose 90 89 (74-99) mg/dL Calcium 8.9 8.6 L (8.4-10.2) mg/dL Adrenal panel 05/04/23 05/05/23 Range/Units 15:53 06:07 Sodium 139 139 (137-145) mmol/L Potassium 4.3 4.4 (3.5-5.1) mmol/L Chloride 103 106 (98-107) mmol/L Carbon Dioxide 26 25.7 (22-30) mmol/L BUN 16 12.1 (9-20) mg/dL Creatinine 0.73 0.9 (0.66-1.25) mg/dL Glucose 90 89 (74-99) mg/dL Calcium 8.9 8.6 L (8.4-10.2) mg/dL Total Bilirubin 0.5 <0.2 L (0.2-1.3) mg/dL AST 35 23 (17-59) U/L ALT 19 15 (4-49) U/L Alkaline Phosphatase 111 92 (38-126) U/L Total Protein 7.5 6.2 (6.3-8.2) g/dL Albumin 4.3 3.8 (3.5-5.0) g/dL
[2023-05-05] MEDS: MORPHINE SULFATE 4 MG/ML SYRINGE IV PRN ×3 (11:20→23:45)
[2023-05-05] MEDS: oxyCODONE-APAP 10-325MG 1 EACH TAB PO PRN ×2 (13:51→20:30)
[2023-05-05] MEDS ORDERED: VANCOMYCIN IV PER PHARMACY 1 EACH MISC MISCELLANE PRN (14:26)
[2023-05-05] MEDS ORDERED: VANCOMYCIN 1,750 MG in SODIUM CHLORIDE 0.9% 500 ML 500 ML IVPB ONE (15:00)
[2023-05-05] MEDS: RIVAROXABAN 20 MG TAB PO SCH (16:48)
--- NOTE | 2023-05-05 22:26 | P.CONS ---
History of Present Illness - Reason for Consult Consult date: 05/05/23 - History of Present Illness Patient is a 54-year-old male with a past medical history significant for diabetes mellitus, patient did have a history of diabetic foot infection and recently did have a left second toe amputation that was done at [facility] and the patient was subsequently discharged home patient now presenting to [facility] ER concerning for increasing swelling and redness to the left second toe amputation site patient mention his symptoms started last few days and is progressively getting worse concerning for increasing pain describing it to be sharp moderate intensity without any radiation with associated swelling, the patient did have some drainage with the symptoms the patient was evaluated on arrival to the ER the patient was afebrile patient did have a white count of 9.3 creatinine was 0.61 liver enzymes are normal patient did have x-ray of the foot likely from fracture or dislocation patient has been evaluated by vascular surgery stitches were removed patient was admitted to the hospital infectious disease was consulted for further management of antibiotic therapy, Past Medical History Past Medical History: Atrial Fibrillation, COPD, Hyperlipidemia, Hypertension, Pneumonia Additional Past Medical History / Comment(s): Other HX; Costochondritis, chronic pain, chronic low back pain with bilateral sciatica, neuropathy bilateral hands/feet, migraines, kidney stones, past partial small bowel obstruction. HTN the last 10 yrs Stopped taking meds 5 yrs ago. COPD due to tobacco use History of Any Multi-Drug Resistant Organisms: MRSA Year Discovered:: 10/09/22 MDRO Source:: Right Foot Past Surgical History: Heart Catheterization, Orthopedic Surgery Additional Past Surgical History / Comment(s): 03/14/18 Cardiac cath-normal coronaries, L shoulder rotator cuff repair x2, cervical injection., toe amputation left foot 2nd and 3rd toe and 2nd and 3rd toe amputated from right foot Past Anesthesia/Blood Transfusion Reactions: No Reported Reaction Past Psychological History: Anxiety, Bipolar, Depression, Schizophrenia Smoking Status: Current every day smoker Past Alcohol Use History: None Reported Additional Past Alcohol Use History / Comment(s): Started smoking at age 15- smoked 1 ppd but has cut down to 1/2 pack a day Past Drug Use History: Marijuana, Prescription Drug Abuse Additional Drug Use History / Comment(s): Pt smokes marijuana daily, and regular cigarrettes daily - Past Family History Father Family Medical History: Myocardial Infarction ([place]) Additional Family Medical History / Comment(s): mi at age 35, still living Mother Family Medical History: Myocardial Infarction ([place]) Additional Family Medical History / Comment(s): Mother has had at least one [place]- pt unsure at what age. He has not had much contact with his mother since he was 17 yrs old. Medications and Allergies Home Medications Medication Instructions Recorded Confirmed Type Nitroglycerin Sl Tabs [Nitrostat] 0.4 mg SL Q5M PRN 06/28/21 05/04/23 History Rivaroxaban [Xarelto] 20 mg PO W/SUPPER 30 Days #30 tab 07/31/21 05/04/23 Rx oxyCODONE-APAP 10-325MG [Percocet 1 tab PO TID PRN 09/11/22 05/04/23 History 10-325 mg] Gabapentin 600 mg PO TID PRN 05/04/23 05/04/23 History Sennosides [Senokot] 8.6 mg PO BID 05/04/23 05/04/23 History amLODIPine [Norvasc] 2.5 mg PO DAILY 05/04/23 05/04/23 History hydrALAZINE HCL [Apresoline] 25 mg PO TID 05/04/23 05/04/23 History lisinopriL [Zestril] 40 mg PO DAILY 05/04/23 05/04/23 History methocarbamoL [Robaxin] 500 mg PO QID 05/04/23 05/04/23 History Allergies Allergy/AdvReac Type Severity Reaction Status Date / Time ibuprofen [From Motrin] AdvReac Nausea & Verified 05/04/23 17:05 Vomiting simvastatin [From Zocor] AdvReac Dizziness Verified 05/04/23 17:05 Physical Exam Vitals: Vital Signs Temp Pulse Pulse Resp BP BP Pulse Ox 05/05/23 08:00 58 L 19 05/05/23 07:00 98.2 F 58 L 19 168/102 98 05/05/23 02:17 98.4 F 56 L 15 146/84 100 05/04/23 21:26 97.9 F 63 18 161/90 99 05/04/23 20:00 98.1 F 58 L 16 176/98 100 05/04/23 19:40 63 18 139/86 100 05/04/23 18:00 72 18 138/78 98 05/04/23 16:48 70 18 156/95 98 05/04/23 14:42 98.6 F 67 16 194/99 99 Intake and Output 05/04/23 05/05/23 05/05/23 22:59 06:59 14:59 Intake Total 500 118 Output Total 400 Balance 500 -282 Intake: Oral 500 118 Output: Urine 400 Other: Voiding Method Urinal Urinal # Voids 2 Weight 104.326 kg Results CBC & Chem 7: 05/05/23 06:07 05/05/23 06:07 Labs: Abnormal Lab Results - Last 24 Hours (Table) 05/04/23 05/05/23 Range/Units 15:53 06:07 PT 9.8 L (10.0-12.5) sec Calcium 8.6 L (8.7-10.3) mg/dL Total Bilirubin <0.2 L (0.3-1.2) mg/dL Albumin/Globulin Ratio 1.58 L (1.60-3.17) Ratio Assessment and Plan Plan: 1patient with a history of left second toe diabetic foot infection with gangrene in this patient who is status post amputation of left second toe few weeks ago at the [facility] we were able to get the culture report from that facility and the patient did grew MRSA in the presenting to this facility with worsening pain swelling redness concerning for cellulitis, likely from MRSA x-ray did not show any bony changes 2-we will start the patient on vancomycin pharmacy to dose and see clinical response 3-check inflammatory markers We will follow on clinical condition and cultures to further adjust medication if needed Thank you for this consultation we will follow the patient along with you Dictation was produced using [employer] dictation software. please excuse any grammatical, word or spelling errors. Time with Patient: Greater than 30
[2023-05-06] MEDS ORDERED: VANCOMYCIN 1,750 MG in SODIUM CHLORIDE 0.9% 500 ML 500 ML IVPB SCH ×2
[2023-05-06] MEDS: HYDROmorphone 1 MG/ML 1 ML SYRINGE IVP PRN ×4 (05:07→19:46)
[2023-05-06 06:26] LABS: African American GFR (CKD) >90 (>60 ml/min/1.73 sqM); Non-African American GFR(CKD) >90 (>60 ml/min/1.73 sqM)
[2023-05-06] MEDS: MORPHINE SULFATE 4 MG/ML SYRINGE IV PRN ×4 (08:09→21:32)
[2023-05-06] MEDS: hydrALAZINE HCL 25 MG TAB PO SCH ×3 (09:43→21:37)
[2023-05-06] MEDS: methocarbamoL 500 MG TAB PO SCH ×4 (09:43→21:37)
[2023-05-06] MEDS: lisinopriL 20 MG TAB PO SCH (09:43)
[2023-05-06] MEDS: amLODIPine 2.5 MG TAB PO SCH (09:43)
[2023-05-06] MEDS: SENNOSIDES 8.6 MG TAB PO SCH ×2 (09:44→19:48)
[2023-05-06] MEDS: VANCOMYCIN 1,500 MG in SODIUM CHLORIDE 0.9% 500 ML 500 ML IVPB SCH ×2 (10:05→18:36)
[2023-05-06] MEDS: COLLAGENASE 250 UNIT/GM OINTMENT 30 GM TUBE TOPICAL SCH (10:24)
--- NOTE | 2023-05-06 14:28 | P.PN ---
Subjective Progress Note Date: 05/06/23 Principal diagnosis: Reason for follow-up is left second toe amputation site cellulitis Patient is a 52-year-old male with a past medical history significant for diabetes mellitus history of diabetic foot infection recently did have left second toe gangrene status post amputation at [facility] culture positive for MRSA patient presented to this facility concerning for increasing pain and swelling and concern for cellulitis to the left second amputation site. On today's evaluation that is 05/06/2023, the patient denies having any fever or any chills he is breathing comfortably on room air without need for supplemental oxygen no chest pain shortness of breath or cough no nausea vomiting no abdominal pain still complaining of pain to the left second amputation site but no drainage. Patient did have a creatinine of 0.67 blood cultures pending Objective - Vital Signs Vital signs: Vital Signs Temp 98.0 F 05/06/23 13:40 Pulse 57 L 05/06/23 13:40 Resp 18 05/06/23 13:40 BP 163/79 05/06/23 13:40 Pulse Ox 100 05/06/23 13:40 FiO2 Intake & Output 05/05/23 05/06/23 05/06/23 18:59 06:59 18:59 Intake Total 236 236 Output Total 400 400 400 Balance -164 -400 -164 Intake: Oral 236 236 Output: Urine 400 400 400 Other: Voiding Method Urinal Urinal # Voids 2 4 - Exam GENERAL DESCRIPTION: Middle-age male lying in bed in no distress RESPIRATORY SYSTEM: Unlabored breathing , decreased breath sounds at bases HEART: S1 S2 regular rate and rhythm , ABDOMEN: Soft , no tenderness EXTREMITIES: Left second toe amputation site and left foot dorsum swelling redness slightly decreased - Labs CBC & Chem 7: 05/05/23 06:07 05/06/23 05:47 Labs: Microbiology - Last 24 Hours (Table) 05/04/23 16:00 Blood Culture - Preliminary Blood Assessment and Plan (1) Diabetic foot infection Current Visit: Yes Status: Acute Code(s): E11.628 - TYPE 2 DIABETES MELLITUS WITH OTHER SKIN COMPLICATIONS; L08.9 - LOCAL INFECTION OF THE SKIN AND SUBCUTANEOUS TISSUE, UNSP SNOMED Code(s): 769157367 (2) MRSA (methicillin resistant staph aureus) culture positive Current Visit: Yes Status: Acute Code(s): Z22.322 - CARRIER OR SUSPECTED CARRIER OF METHICILLIN RESIS STAPH SNOMED Code(s): 667324541 (3) Infected surgical wound Current Visit: Yes Status: Acute Code(s): T81.49XA - INFECTION FOLLOWING A PROCEDURE, OTHER SURGICAL SITE, INIT SNOMED Code(s): 71573005 Plan: 1patient with a history of left second toe diabetic foot infection with gangrene in this patient who is status post amputation of left second toe few weeks ago at the [facility] we were able to get the culture report from that facility and the patient did grew MRSA in the presenting to this facility with worsening pain swelling redness concerning for cellulitis, likely from MRSA x-ray did not show any bony changes 2we will continue patient vancomycin pharmacy to dose and the patient did have overall improvement hopefully finishing therapy with the Bactrim DS Dictation was produced using [employer] dictation software. please excuse any grammatical, word or spelling errors. Time with Patient: Less than 30
[2023-05-06] MEDS: RIVAROXABAN 20 MG TAB PO SCH (18:08)
[2023-05-07] MEDS: VANCOMYCIN 1,500 MG in SODIUM CHLORIDE 0.9% 500 ML 500 ML IVPB SCH ×3 (00:30→20:25)
[2023-05-07] MEDS: HYDROmorphone 1 MG/ML 1 ML SYRINGE IVP PRN ×6 (00:31→21:59)
[2023-05-07] MEDS: MORPHINE SULFATE 4 MG/ML SYRINGE IV PRN ×5 (03:02→20:24)
[2023-05-07] MEDS ORDERED: VANCOMYCIN TROUGH DUE 1 EACH MISC MISCELLANE ONE (07:00)
[2023-05-07 07:11] LABS: African American GFR (CKD) >90 (>60 ml/min/1.73 sqM); Non-African American GFR(CKD) >90 (>60 ml/min/1.73 sqM)
[2023-05-07] MEDS: lisinopriL 20 MG TAB PO SCH (07:40)
[2023-05-07] MEDS: SENNOSIDES 8.6 MG TAB PO SCH ×2 (07:41→20:25)
[2023-05-07] MEDS: amLODIPine 2.5 MG TAB PO SCH (07:41)
[2023-05-07] MEDS: hydrALAZINE HCL 25 MG TAB PO SCH ×3 (07:41→21:59)
[2023-05-07] MEDS: methocarbamoL 500 MG TAB PO SCH ×4 (07:41→21:59)
[2023-05-07] MEDS ORDERED: VANCOMYCIN IV PER PHARMACY 1 EACH MISC MISCELLANE PRN (08:28)
[2023-05-07] MEDS: COLLAGENASE 250 UNIT/GM OINTMENT 30 GM TUBE TOPICAL SCH (08:31)
--- NOTE | 2023-05-07 09:50 | PN ---
PROGRESS NOTE This is a 52-year-old gentleman, who had a history of second toe amputation in the past. The patient came with some redness on the dorsal aspect of the foot and pain. The patient is on IV antibiotic. Dressing has been changed. If the patient goes home, he will follow in my office on . Advised nonweightbearing. Antibiotic by Dr. Stauffer, Infectious Disease. MMODL / IJN: [id number] /
--- NOTE | 2023-05-07 14:17 | P.PN ---
Subjective Progress Note Date: 05/07/23 Principal diagnosis: Reason for follow-up is left second toe amputation site cellulitis Patient is a 52-year-old male with a past medical history significant for diabetes mellitus history of diabetic foot infection recently did have left second toe gangrene status post amputation at [facility] culture positive for MRSA patient presented to this facility concerning for increasing pain and swelling and concern for cellulitis to the left second amputation site. On today's evaluation that is 05/07/2023, the patient remains to be afebrile the patient is breathing comfortably on room air denies any chest pain shortness of breath or cough no nausea vomiting no abdominal pain no diarrhea, patient still complaining of pain to the left foot as well as swelling to the lower extremity Patient white count normal 5.26 as of 05/05/2023 and a creatinine 0.83 Objective - Vital Signs Vital signs: Vital Signs Temp 98.0 F 05/07/23 07:05 Pulse 60 05/07/23 07:05 Resp 16 05/07/23 07:05 BP 170/88 05/07/23 07:05 Pulse Ox 100 05/07/23 07:05 FiO2 Intake & Output 05/06/23 05/07/23 05/07/23 18:59 06:59 18:59 Intake Total 476 590 Output Total 700 1650 Balance -224 -1650 590 Intake: Oral 476 590 Output: Urine 700 1650 Other: Voiding Method Urinal # Voids 4 - Exam GENERAL DESCRIPTION: Middle-age male lying in bed in no distress RESPIRATORY SYSTEM: Unlabored breathing , decreased breath sounds at bases HEART: S1 S2 regular rate and rhythm , ABDOMEN: Soft , no tenderness EXTREMITIES: Left second toe amputation site and left foot dorsum swelling redness slightly decreased - Labs CBC & Chem 7: 05/05/23 06:07 05/07/23 06:42 Labs: Abnormal Lab Results - Last 24 Hours (Table) 05/07/23 Range/Units 06:42 Vancomycin Trough 35.4 H* ug/mL Microbiology - Last 24 Hours (Table) 05/04/23 16:00 Blood Culture - Preliminary Blood Assessment and Plan (1) Diabetic foot infection Current Visit: Yes Status: Acute Code(s): E11.628 - TYPE 2 DIABETES MELLITUS WITH OTHER SKIN COMPLICATIONS; L08.9 - LOCAL INFECTION OF THE SKIN AND SUBCUTANEOUS TISSUE, UNSP SNOMED Code(s): 086878145 (2) MRSA (methicillin resistant staph aureus) culture positive Current Visit: Yes Status: Acute Code(s): Z22.322 - CARRIER OR SUSPECTED CARRIER OF METHICILLIN RESIS STAPH SNOMED Code(s): 208004994 (3) Infected surgical wound Current Visit: Yes Status: Acute Code(s): T81.49XA - INFECTION FOLLOWING A PROCEDURE, OTHER SURGICAL SITE, INIT SNOMED Code(s): 67714335 Plan: 1patient with a history of left second toe diabetic foot infection with gangrene in this patient who is status post amputation of left second toe few weeks ago at the [facility] we were able to get the culture report from that facility and the patient did grew MRSA in the presenting to this facility with worsening pain swelling redness concerning for cellulitis, likely from MRSA x-ray did not show any bony changes 2patient to continue with the vancomycin the patient creatinine is normal may benefit from gentle diuresis because of lower extremity swelling and monitor clinical course closely Dictation was produced using [employer] dictation software. please excuse any grammatical, word or spelling errors. Time with Patient: Less than 30
[2023-05-07] MEDS: RIVAROXABAN 20 MG TAB PO SCH (18:05)
[2023-05-08] MEDS: MORPHINE SULFATE 4 MG/ML SYRINGE IV PRN ×3 (00:52→12:01)
--- NOTE | 2023-05-08 02:02 | PN ---
PROGRESS NOTE DATE OF SERVICE: 05/07/2023 CHIEF COMPLAINT: Infected distal left foot. HISTORY OF PRESENT ILLNESS: This gentleman is doing well and he has had no fever, no chills, etc. He states he has been cleared by surgery and awaits Infectious Disease. PHYSICAL EXAMINATION: CHEST: Clear. CARDIAC: Normal. ABDOMEN: Soft, nontender. EXTREMITIES: Foot is dressed. IMPRESSION: 1. Cellulitis and wound infection of the left 2nd toe amputation site. 2. Coronary artery disease. 3. CHF. PLAN: Probably home today when he is cleared by Infectious Disease. MMODL / IJN: [id number] /
--- NOTE | 2023-05-08 02:41 | PN ---
PROGRESS NOTE DATE OF SERVICE: 05/05/2023 CHIEF COMPLAINT: Cellulitis and possible osteomyelitis of the left foot. HISTORY OF PRESENT ILLNESS: This gentleman is being seen by Surgery. His foot is wrapped. He is on antibiotics. PHYSICAL EXAMINATION: EXTREMITIES: The left leg is slightly swollen. CHEST: Clear. CARDIAC: Normal. IMPRESSION: Infection of the distal left foot with cellulitis and possible osteomyelitis. PLAN: Continue with IV fluids and antibiotics and follow recommendations of Surgery and Infectious Disease. MMODL / IJN: [id number] /
[2023-05-08] MEDS: HYDROmorphone 1 MG/ML 1 ML SYRINGE IVP PRN ×3 (05:42→14:03)
--- NOTE | 2023-05-08 07:35 | HP ---
HISTORY AND PHYSICAL CHIEF COMPLAINT: Pain, swelling, redness, and drainage from the left foot. HISTORY OF PRESENT ILLNESS: This is another admission for this 52-year-old white male who has had problems with multiple infections in both feet. He has had numerous toes amputated. He does not take care of himself or followup in my office or with Surgery or Infectious Disease. He came back into the emergency room this time with increased pain, swelling and redness in the distal foot with drainage and he was admitted for IV antibiotics and surgical intervention. REVIEW OF SYSTEMS: He has no other complaints or problems. He does have congestive heart failure, but he does not take care of himself. When he comes to the office occasionally, his blood pressure is usually elevated. Remainder of his history is unremarkable. PHYSICAL EXAMINATION: VITAL SIGNS: Normal. He is afebrile. GENERAL: He appeared to be in no acute distress. HEAD, EARS, EYES, NOSE, MOUTH, AND THROAT: Normal. CHEST: Clear. CARDIAC: Normal. ABDOMEN: Slightly protuberant, soft and nontender. EXTREMITIES: Revealed evidence of his prior surgical intervention. He recently had a left 2nd toe removed and that is where this problem originated. There was oozing from that site and there was redness, swelling, and tenderness in the distal left foot with edema up into the left leg. IMPRESSION: Wound infection on the left distal foot with cellulitis and possible osteomyelitis. PLAN: 1. Bed rest. 2. IV fluids. 3. IV antibiotics. 4. Consult with Vascular Surgery and Infectious Disease. MMODL / IJN: [id number] /
[2023-05-08 07:41] LABS: African American GFR (CKD) >90 (>60 ml/min/1.73 sqM); Non-African American GFR(CKD) >90 (>60 ml/min/1.73 sqM)
[2023-05-08] MEDS: COLLAGENASE 250 UNIT/GM OINTMENT 30 GM TUBE TOPICAL SCH (07:45)
[2023-05-08] MEDS: lisinopriL 20 MG TAB PO SCH (08:08)
[2023-05-08] MEDS: hydrALAZINE HCL 25 MG TAB PO SCH (08:08)
[2023-05-08] MEDS: amLODIPine 2.5 MG TAB PO SCH (08:08)
[2023-05-08] MEDS: methocarbamoL 500 MG TAB PO SCH ×2 (08:08→12:01)
[2023-05-08] MEDS: SENNOSIDES 8.6 MG TAB PO SCH (08:57)
--- NOTE | 2023-05-08 12:02 | P.PN ---
Subjective Progress Note Date: 05/08/23 Principal diagnosis: Reason for follow-up is left second toe amputation site cellulitis Patient is a 52-year-old male with a past medical history significant for diabetes mellitus history of diabetic foot infection recently did have left second toe gangrene status post amputation at [facility] culture positive for MRSA patient presented to this facility concerning for increasing pain and swelling and concern for cellulitis to the left second amputation site. On today's evaluation that is 05/08/2023, the patient denies having any fever or any chills, the patient is breathing comfortably on room air, the patient denies chest pain shortness of the cough no nausea vomiting no abdominal pain and pain to the left foot is controlled. Patient did have white count of 5.26 on 05/05/2023 and did have a creatinine 0.74 Objective - Vital Signs Vital signs: Vital Signs Temp 97.8 F 05/08/23 07:00 Pulse 53 L 05/08/23 07:00 Resp 14 05/08/23 07:00 BP 149/84 05/08/23 07:00 Pulse Ox 99 05/08/23 07:00 FiO2 Intake & Output 05/07/23 05/08/23 05/08/23 18:59 06:59 18:59 Intake Total 1126 236 Balance 1126 236 Intake: Oral 1126 236 Other: # Voids 3 2 - Exam GENERAL DESCRIPTION: Middle-age male lying in bed in no distress RESPIRATORY SYSTEM: Unlabored breathing , decreased breath sounds at bases HEART: S1 S2 regular rate and rhythm , ABDOMEN: Soft , no tenderness EXTREMITIES: Left second toe amputation site and left foot dorsum swelling redness slightly decreased - Labs CBC & Chem 7: 05/05/23 06:07 05/08/23 05:55 Labs: Microbiology - Last 24 Hours (Table) 05/04/23 16:00 Blood Culture - Preliminary Blood Assessment and Plan (1) Diabetic foot infection Current Visit: Yes Status: Acute Code(s): E11.628 - TYPE 2 DIABETES MELLITUS WITH OTHER SKIN COMPLICATIONS; L08.9 - LOCAL INFECTION OF THE SKIN AND SUBCUTANEOUS TISSUE, UNSP SNOMED Code(s): 599828344 (2) MRSA (methicillin resistant staph aureus) culture positive Current Visit: Yes Status: Acute Code(s): Z22.322 - CARRIER OR SUSPECTED CARRIER OF METHICILLIN RESIS STAPH SNOMED Code(s): 258895209 (3) Infected surgical wound Current Visit: Yes Status: Acute Code(s): T81.49XA - INFECTION FOLLOWING A PROCEDURE, OTHER SURGICAL SITE, INIT SNOMED Code(s): 27320774 Plan: 1patient with a history of left second toe diabetic foot infection with g angrene in this patient who is status post amputation of left second toe few weeks ago at the [facility] Center we were able to get the culture report from that facility and the patient did grew MRSA in the presenting to this facility with worsening pain swelling redness concerning for cellulitis, likely from MRSA x-ray did not show any bony changes 2patient did have improvement to the left foot cellulitis on vancomycin to continue with the plan to finish therapy the Bactrim DS x 10 days on discharge Dictation was produced using [employer] dictation software. please excuse any gram matical, word or spelling errors. Time with Patient: Less than 30
[2023-05-08] MEDS: VANCOMYCIN 1,500 MG in SODIUM CHLORIDE 0.9% 500 ML 500 ML IVPB SCH (12:05)
[2023-05-08 15:19] VITALS: BP 147/78; PULSE 68; RESP 16; TEMP 97.9
[2023-05-08] MEDS: oxyCODONE-APAP 10-325MG 1 EACH TAB PO PRN (15:27)
[2023-05-08] MEDS ORDERED: SULFAMETHOX-TMP 800-160MG 1 EACH TAB PO SCH (21:00)
--- NOTE | 2023-05-08 21:38 | DS ---
DISCHARGE SUMMARY CHIEF COMPLAINT: Cellulitis and possible osteomyelitis of left foot. HISTORY OF PRESENT ILLNESS AND PHYSICAL EXAMINATION: Details of this man's history and physical can be found in the initial workup. LABORATORY STUDIES: While he was in the hospital, he had laboratory studies, details of which can be found in the laboratory section of his chart. COURSE IN THE HOSPITAL: After admission, he was placed on bedrest, started on intravenous fluids and seen by Surgery and Infectious Disease. The sutures were removed from the foot and the foot was debrided. He was started on IV antibiotics. It was felt he could be discharged on the . He will go home on his usual medications in addition to Bactrim DS and followed up in the office in several days. FINAL DIAGNOSES: 1. Cellulitis and osteomyelitis of the left foot. 2. Congestive heart failure. 3. Cardiomyopathy. OPERATIONS: None. CONSULTATIONS: Vascular Surgery and Infectious Disease. He is improved. MMODL / IJN: [id number] /
--- NOTE | 2023-05-09 01:47 | PN ---
PROGRESS NOTE CHIEF COMPLAINT: Cellulitis and probable osteomyelitis of the left foot. HISTORY OF PRESENT ILLNESS: This gentleman is doing fairly well. Foot has been cleaned up and he is on IV antibiotics. REVIEW OF SYSTEMS: He denies fever, chills, significant pain, etc. PHYSICAL EXAMINATION: VITAL SIGNS: Normal. CHEST: Clear. CARDIAC: Normal. ABDOMEN: Soft, nontender. EXTREMITIES: The left foot is wrapped with Vasile wraps and gauze. IMPRESSION: Osteomyelitis and cellulitis of the left foot. PLAN: Continue with IV antibiotics. MMODL / IJN: [id number] /
== END 2023-05-08 15:50 | disposition home or self-care (01) ==
LOC: EC 14:35 → 6NMEDSUR 15:48
PROVIDERS: ADMIT Family Medicine; ATTEND Family Medicine
DX: T87.44 Infection of amputation stump, left lower extremity (principal); L03.032 Cellulitis of left toe; E11.69 Type 2 diabetes mellitus with other specified complication; M86.8X7 Other osteomyelitis, ankle and foot; B95.62 Methicillin resistant Staphylococcus aureus infection as the cause of diseases classified elsewhere; I48.91 Unspecified atrial fibrillation; J44.9 Chronic obstructive pulmonary disease, unspecified; E78.5 Hyperlipidemia, unspecified; G89.29 Other chronic pain; M54.50 Low back pain, unspecified; G62.9 Polyneuropathy, unspecified; F20.9 Schizophrenia, unspecified; F31.9 Bipolar disorder, unspecified; F41.9 Anxiety disorder, unspecified; I25.10 Atherosclerotic heart disease of native coronary artery without angina pectoris; I11.0 Hypertensive heart disease with heart failure; I50.9 Heart failure, unspecified; I42.9 Cardiomyopathy, unspecified; F17.200 Nicotine dependence, unspecified, uncomplicated; Z89.422 Acquired absence of other left toe(s); Z79.899 Other long term (current) drug therapy; Z79.01 Long term (current) use of anticoagulants; Z88.6 Allergy status to analgesic agent
CPT/HCPCS: 96376 ×5; 96365; 96366 ×4; 96375; 99285; 36415; 93005; 83880; 80053 ×2; 82565 ×3; 83605; 83735 ×2; 84100 ×2; 84484; 85025 ×2; 80202 ×2; 85610; 85730; 87040; 73630; G0378 ×5; J3370 ×4; J2270 ×5; J2405; J1170 ×5

== ENCOUNTER 2023-05-29 07:52 | Inpatient (IN) | payer OTHER ==
--- NOTE | 2023-05-29 09:00 | XR ---
EXAMINATION TYPE: XR foot complete LT DATE OF EXAM: 05/29/2023 8:44 AM CLINICAL INDICATION:Male, 52 years old with history of infection; COMPARISON: 05/04/2023 TECHNIQUE: XR foot complete LT examined in the AP, oblique, and lateral projections. FINDINGS: Redemonstration of postsurgical change of the second and third digit. No evidence for osseous erosion . Multiple injury to the third digit metatarsal head suggested with callus formation. No evidence of fracture or dislocation. There is multifocal degeneration with joint space narrowing. Calcaneal Achil les enthesophyte formation. There is soft tissue swelling throughout the foot. IMPRESSION: 1. Similar soft tissue swelling post surgical changes to the second third digit. There is suspected prior injury to the third digit metatarsal head. 2. No evidence of fracture.
[2023-05-29 09:41] LABS: Basophils % (A) 0 %; Eosinophils # (A) 0.4 k/uL (0-0.7); Eosinophils % (A) 5 %; HCT 44.3 % (39.0-53.0); HGB 15.2 gm/dL (13.0-17.5); Lymphocytes # (A) 1.5 k/uL (1.0-4.8); Lymphocytes % (A) 22 %; MCH 31.1 pg (25.0-35.0); MCHC 34.3 g/dL (31.0-37.0); MCV 90.7 fL (80.0-100.0); Mean Platelet Volume 9.3; Monocytes # (A) 0.4 k/uL (0-1.0); Monocytes % (A) 6 %; Neutrophils # (A) 4.3 k/uL (1.3-7.7); Neutrophils % (A) 64 %; Platelet Count 192 k/uL (150-450); RBC 4.88 m/uL (4.30-5.90); RDW 13.7 % (11.5-15.5); WBC 6.7 k/uL (3.8-10.6)
[2023-05-29 09:52] LABS: ALT 23 U/L (4-49); AST 36 U/L (17-59); African American GFR (CKD) >90 (>60 ml/min/1.73 sqM); Albumin 4.4 g/dL (3.5-5.0); Alkaline Phosphatase 106 U/L (38-126); Anion Gap 10 mmol/L; Blood Urea Nitrogen 20 mg/dL (9-20); Calcium 9.2 mg/dL (8.4-10.2); Carbon Dioxide 22 mmol/L (22-30); Chloride 108 mmol/L (98-107); Glucose 94 mg/dL (74-99); Non-African American GFR(CKD) >90 (>60 ml/min/1.73 sqM); Potassium 4.1 mmol/L (3.5-5.1); Sodium 140 mmol/L (137-145); Total Bilirubin 0.6 mg/dL (0.2-1.3); Total Protein 7.8 g/dL (6.3-8.2)
[2023-05-29] MEDS ORDERED: HYDROmorphone 0.5 MG/0.5 ML SYRINGE IVP STA (09:56)
[2023-05-29] MEDS ORDERED: NALOXONE 0.4 MG/ML 1 ML VIAL IV PRN (10:29)
[2023-05-29] MEDS ORDERED: ACETAMINOPHEN TAB 325 MG TAB PO PRN (10:29)
[2023-05-29] MEDS ORDERED: HYDROmorphone 0.5 MG/0.5 ML SYRINGE IVP PRN (10:29)
--- NOTE | 2023-05-29 10:29 | ED ---
Extremity Problem HPI - General Chief complaint: Extremity Problem,Nontraumatic Stated complaint: Foot infection Time Seen by Provider: 05/29/23 08:14 Source: patient, RN notes reviewed Mode of arrival: ambulatory Limitations: no limitations - History of Present Illness Initial comments: 52-year-old male presents emergency department chief complaint left foot infection. Patient states that he was seen by his PCP yesterday was advised to come to emergency department for evaluation and admission. Patient states he has a recurrent infection he does see Dr. Rudd has had a prior amputation. Patient states there is increasing swelling, pain, redness. - Related Data Home Medications Medication Instructions Recorded Confirmed Nitroglycerin Sl Tabs [Nitrostat] 0.4 mg SL Q5M PRN 06/28/21 05/29/23 oxyCODONE-APAP 10-325MG [Percocet 1 tab PO TID PRN 09/11/22 05/29/23 10-325 mg] Gabapentin 600 mg PO TID PRN 05/04/23 05/29/23 Sennosides [Senokot] 8.6 mg PO BID 05/04/23 05/29/23 amLODIPine [Norvasc] 2.5 mg PO DAILY 05/04/23 05/29/23 hydrALAZINE HCL [Apresoline] 25 mg PO TID 05/04/23 05/29/23 lisinopriL [Zestril] 40 mg PO DAILY 05/04/23 05/29/23 methocarbamoL [Robaxin] 500 mg PO QID 05/04/23 05/29/23 Cephalexin [Keflex] 500 mg PO QID 05/29/23 05/29/23 Previous Rx's Medication Instructions Recorded Rivaroxaban [Xarelto] 20 mg PO W/SUPPER 30 Days #30 tab 07/31/21 Allergies Allergy/AdvReac Type Severity Reaction Status Date / Time ibuprofen [From Motrin] AdvReac Nausea & Verified 05/29/23 09:58 Vomiting simvastatin [From Zocor] AdvReac Dizziness Verified 05/29/23 09:58 Review of Systems ROS Statement: Those systems with pertinent positive or pertinent negative responses have been documented in the HPI. ROS Other: All systems not noted in ROS Statement are negative. Past Medical History Past Medical History: Atrial Fibrillation, COPD, Hyperlipidemia, Hypertension, Pneumonia Additional Past Medical History / Comment(s): Other HX; Costochondritis, chronic pain, chronic low back pain with bilateral sciatica, neuropathy bilateral hands/feet, migraines, kidney stones, past partial small bowel obstruction. HTN the last 10 yrs Stopped taking meds 5 yrs ago. 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 and 2nd and 3rd toe amputated from right foot Past Anesthesia/Blood Transfusion Reactions: No Reported Reaction Past Psychological History: Anxiety, Bipolar, Depression, Schizophrenia Smoking Status: Current every day smoker Past Alcohol Use History: None Reported Past Drug Use History: Marijuana, Prescription Drug Abuse - Past Family History Father Family Medical History: Myocardial Infarction ([place]) Additional Family Medical History / Comment(s): mi at age 35, still living Mother Family Medical History: Myocardial Infarction ([place]) Additional Family Medical History / Comment(s): Mother has had at least one [place]- pt unsure at what age. He has not had much contact with his mother since he was 17 yrs old. General Exam Limitations: no limitations General appearance: alert, in no apparent distress Head exam: Present: atraumatic, normocephalic, normal inspection Eye exam: Present: normal appearance, PERRL, EOMI. Absent: scleral icterus, conjunctival injection, periorbital swelling Respiratory exam: Present: normal lung sounds bilaterally. Absent: respiratory distress, wheezes, rales, rhonchi, stridor Cardiovascular Exam: Present: regular rate, normal rhythm, normal heart sounds. Absent: systolic murmur, diastolic murmur, rubs, gallop, clicks Extremities exam: Present: other (Left foot diffuse swelling, erythema pulses are palpable there is amputation of the second and third) Course Vital Signs 05/29/23 07:53 Temperature 97.7 F Pulse Rate 75 Respiratory 20 Rate O2 Sat by Pulse 99 Oximetry Medical Decision Making - Medical Decision Making Was pt. sent in by a medical professional or institution (, PA, GERIATRIC SOCIAL WORKER, urgent care, hospital, or usp...) When possible be specific @ -PCP Did you speak to anyone other than the patient for history (EMS, parent, family, police, friend...)? What history was obtained from this source @ -No Did you review nursing and triage notes (agree or disagree)? Why? @ -I reviewed and agree with nursing and triage notes Were old charts reviewed (outside hosp., previous admission, EMS record, old EKG, old radiological studies, urgent care reports/EKG's, usp records)? Report findings @ -[reviewed prior laboratory studies, imaging, vascular Differential Diagnosis (chest pain, altered mental status, abdominal pain women, abdominal pain men, vaginal bleeding, weakness, fever, dyspnea, syncope, headache, dizziness, GI bleed, back pain, seizure, CVA, palpatations, mental health, musculoskeletal)? @ -Osteomyelitis, cellulitis, EKG interpreted by me (3pts min.). @ -As above X-rays interpreted by me (1pt min.). @ -X-ray chronic changes no acute IN no evidence of osteomyelitis CT interpreted by me (1pt min.). @ -None done U/S interpreted by me (1pt. min.). @ -None done What testing was considered but not performed or refused? (CT, X-rays, U/S, labs)? Why? @ -None What meds were considered but not given or refused? Why? @ -None Did you discuss the management of the patient with other professionals (professionals i.e. , PA, GERIATRIC SOCIAL WORKER, lab, RT, psych nurse, social service assistant, tire mold engraver, teacher, chief mechanical officer, high risk case manager)? Give summary @ -[Dr. Glasgow for admission secondary to recurrent infection Was smoking cessation discussed for >3mins.? @ -No Was critical care preformed (if so, how long)? @ -No Were there social determinants of health that impacted care today? How? (Homelessness, low income, unemployed, alcoholism, drug addiction, transportation, low edu. Level, literacy, decrease access to med. care, usp, rehab)? @ -No Was there de-escalation of care discussed even if they declined (Discuss DNR or withdrawal of care, Hospice)? DNR status @ -No What co-morbidities impacted this encounter? (DM, HTN, Smoking, COPD, CAD, Cancer, CVA, ARF, Chemo, Hep., AIDS, mental health diagnosis, sleep apnea, morbid obesity)? @ -None Was patient admitted / discharged? Hospital course, mention meds given and route, prescriptions, significant lab abnormalities, going to OR and other pertinent info. @ -[Admitted patient was started on IV antibiotics will have consult to Dr. Rudd. Patient does not have any evidence of osteomyelitis on x-ray. Undiagnosed new problem with uncertain prognosis? @ -No Drug Therapy requiring intensive monitoring for toxicity (Heparin, Nitro, Insulin, Cardizem)? @ -No Were any procedures done? @ -No Diagnosis/symptom? @ -Left foot cellulitis] Acute, or Chronic, or Acute on Chronic? @ -[Acute Uncomplicated (without systemic symptoms) or Complicated (systemic symptoms)? @ -Uncomplicated Side effects of treatment? @ -[No Exacerbation, Progression, or Severe Exacerbation? @ -No Poses a threat to life or bodily function? How? (Chest pain, [place], [place], pneumonia, PE, COPD, DKA, ARF, appy, cholecystitis, CVA, Diverticulitis, Homicidal, Suicidal, threat to staff... and all critical care pts) @ -[Yes low likelihood, cellulitis - Lab Data Result diagrams: 05/29/23 09:19 05/29/23 09:19 Lab Results 05/29/23 05/29/23 05/29/23 Range/Units 09:19 09:19 09:19 WBC 6.7 (3.8-10.6) k/uL RBC 4.88 (4.30-5.90) m/uL Hgb 15.2 (13.0-17.5) gm/dL Hct 44.3 (39.0-53.0) % MCV 90.7 (80.0-100.0) fL MCH 31.1 (25.0-35.0) pg MCHC 34.3 (31.0-37.0) g/dL RDW 13.7 (11.5-15.5) % Plt Count 192 (150-450) k/uL MPV 9.3 Neutrophils % 64 % Lymphocytes % 22 % Monocytes % 6 % Eosinophils % 5 % Basophils % 0 % Neutrophils # 4.3 (1.3-7.7) k/uL Lymphocytes # 1.5 (1.0-4.8) k/uL Monocytes # 0.4 (0-1.0) k/uL Eosinophils # 0.4 (0-0.7) k/uL Basophils # 0.0 (0-0.2) k/uL Sodium 140 (137-145) mmol/L Potassium 4.1 (3.5-5.1) mmol/L Chloride 108 H (98-107) mmol/L Carbon Dioxide 22 (22-30) mmol/L Anion Gap 10 mmol/L BUN 20 (9-20) mg/dL Creatinine 0.70 (0.66-1.25) mg/dL Est GFR (CKD-EPI)AfAm >90 (>60 ml/min/1.73 sqM) Est GFR (CKD-EPI)NonAf >90 (>60 ml/min/1.73 sqM) Glucose 94 (74-99) mg/dL Plasma Lactic Acid George 2.2 H* (0.7-2.0) mmol/L Calcium 9.2 (8.4-10.2) mg/dL Total Bilirubin 0.6 (0.2-1.3) mg/dL AST 36 (17-59) U/L ALT 23 (4-49) U/L Alkaline Phosphatase 106 (38-126) U/L Total Protein 7.8 (6.3-8.2) g/dL Albumin 4.4 (3.5-5.0) g/dL Disposition Clinical Impression: Cellulitis of left foot Disposition: ADMITTED IP TO THIS HOSP Condition: Fair Referrals: Clif Glasgow MD [Primary Care Provider] - 1-2 days Time of Disposition: 10:04
[2023-05-29] MEDS ORDERED: VANCOMYCIN IV PER PHARMACY 1 EACH MISC MISCELLANE PRN (10:32)
[2023-05-29] MEDS ORDERED: PIPERACILLIN-TAZOBACTAM 3.375 GM in SODIUM CHLORIDE 0.9% 100 ML IVPB STA (10:34)
[2023-05-29] MEDS ORDERED: VANCOMYCIN 1,500 MG in SODIUM CHLORIDE 0.9% 500 ML 500 ML IVPB STA (10:41)
[2023-05-29] MEDS ORDERED: VANCOMYCIN 1,750 MG in SODIUM CHLORIDE 0.9% 500 ML 500 ML IVPB STA (10:50)
[2023-05-29] MEDS: methocarbamoL 500 MG TAB PO SCH ×3 (13:26→21:30)
[2023-05-29] MEDS ORDERED: PIPERACILLIN-TAZOBACTAM 3.375 GM in SODIUM CHLORIDE 0.9% 100 ML IVPB SCH (16:00)
[2023-05-29] MEDS: GABAPENTIN 300 MG CAP PO PRN ×2 (16:10→23:08)
[2023-05-29] MEDS: hydrALAZINE HCL 25 MG TAB PO SCH ×2 (16:19→21:30)
[2023-05-29] MEDS: RIVAROXABAN 20 MG TAB PO SCH (16:59)
[2023-05-29] MEDS: PIPERACILLIN-TAZOBACTAM 3.375 GM in SODIUM CHLORIDE 0.9% 100 ML IVPB SCH (19:25)
[2023-05-29] MEDS: HYDROmorphone 0.5 MG/0.5 ML SYRINGE IVP PRN (19:26)
[2023-05-29] MEDS: SENNOSIDES 8.6 MG TAB PO SCH (21:30)
[2023-05-29] MEDS: oxyCODONE-APAP 10-325MG 1 EACH TAB PO PRN (23:08)
[2023-05-29] MEDS: VANCOMYCIN 1,750 MG in SODIUM CHLORIDE 0.9% 500 ML 500 ML IVPB SCH (23:15)
--- NOTE | 2023-05-30 02:31 | HP ---
HISTORY AND PHYSICAL The patient was seen in the emergency room. CHIEF COMPLAINT: Infection in the left foot. HISTORY OF PRESENT ILLNESS: This is another admission for this 52-year-old noncompliant and essentially homeless person, who has had a longstanding history of severe health problems including coronary artery disease, congestive heart failure, and vascular damage with amputations of the feet. He was in the ER several days ago and told that he should be admitted for the progressive infection in his left foot and he declined. He then came to my office yesterday where he clearly had cellulitis of the distal left foot and possible abscess and osteomyelitis. Once again, he refused to go to the hospital. Then, he comes into to the ER today. REVIEW OF SYSTEMS: He denies a great deal of pain, but he has neuropathy. He denies fever or chills. Past medical history, family history, personal and social histories are otherwise noncontributory. Although, he does not take medications appropriately. He has been in and out of homeless shelters. He does smoke. He also abuses analgesics. PHYSICAL EXAMINATION: VITAL SIGNS: Blood pressure 167/100, pulse is 93, respirations are 32, and he is afebrile. GENERAL: He appeared to be well developed, well nourished, and in no acute distress. HEAD, EARS, EYES, NOSE, MOUTH, AND THROAT: Normal. CHEST: Clear. CARDIAC: Normal. ABDOMEN: Slightly protuberant and nontender. EXTREMITIES: Demonstrated the distal left foot to be erythematous, swollen, and tender. Several toes were missing from his foot where he recently had his second toe amputated. NEUROLOGIC: Intact. HOSPITAL DIAGNOSES: 1. Cellulitis of the distal left foot with possible abscess and osteomyelitis. 2. Peripheral vascular disease. 3. Coronary artery disease. 4. Congestive heart failure. 5. Chronic obstructive pulmonary disease. 6. Uncontrolled hypertension. PLAN: 1. Bed rest. 2. IV fluids. 3. IV antibiotics. 4. Surgery consult. MMODL / IJN: [id number] /
[2023-05-30] MEDS: HYDROmorphone 0.5 MG/0.5 ML SYRINGE IVP PRN ×4 (02:59→21:38)
[2023-05-30] MEDS: PIPERACILLIN-TAZOBACTAM 3.375 GM in SODIUM CHLORIDE 0.9% 100 ML IVPB SCH ×3 (03:42→19:39)
[2023-05-30] MEDS: oxyCODONE-APAP 10-325MG 1 EACH TAB PO PRN ×3 (07:33→23:36)
[2023-05-30] MEDS: lisinopriL 20 MG TAB PO SCH (09:13)
[2023-05-30] MEDS: hydrALAZINE HCL 25 MG TAB PO SCH ×3 (09:13→21:38)
[2023-05-30] MEDS: amLODIPine 2.5 MG TAB PO SCH (09:14)
[2023-05-30] MEDS: SENNOSIDES 8.6 MG TAB PO SCH ×2 (09:14→19:40)
[2023-05-30] MEDS: methocarbamoL 500 MG TAB PO SCH ×4 (10:15→21:38)
[2023-05-30] MEDS: VANCOMYCIN 1,750 MG in SODIUM CHLORIDE 0.9% 500 ML 500 ML IVPB SCH ×2 (11:30→21:38)
[2023-05-30] MEDS: GABAPENTIN 300 MG CAP PO PRN ×2 (12:57→21:38)
--- NOTE | 2023-05-30 17:19 | P.GSCN ---
History of Present Illness History of present illness: 52-year-old gentleman well-known to me from the past planing of pain and redness of the dorsum aspect of the foot this patient had a left foot second and third toe amputation done in the past foot x-ray shows soft tissue swelling no evidence of any fracture Medical history no history of diabetes patient has history of hypertension coronary artery disease Chest is clear to auscultation. Second sound present Abdomen soft nontender Vascular femorals are 1+ bilateral left foot there is a mild redness not noted no fluctuation noted some tenderness also noted patient IV antibiotic Plan is we will do CT of the foot to rule out abscess osteo continue with IV antibiotic at this point no surgical intervention we will review the CAT scan Past Medical History Past Medical History: Atrial Fibrillation, COPD, Hyperlipidemia, Hypertension, Pneumonia Additional Past Medical History / Comment(s): Other HX; Costochondritis, chronic pain, chronic low back pain with bilateral sciatica, neuropathy bilateral hands/feet, migraines, kidney stones, past partial small bowel obstruction. HTN the last 10 yrs Stopped taking meds 5 yrs ago. COPD due to tobacco use History of Any Multi-Drug Resistant Organisms: MRSA Year Discovered:: 10/09/22 MDRO Source:: Right Foot Past Surgical History: Heart Catheterization, Orthopedic Surgery Additional Past Surgical History / Comment(s): 03/14/18 Cardiac cath-normal coronaries, L shoulder rotator cuff repair x2, cervical injection., toe amputation left foot 2nd and 3rd toe and 2nd and 3rd toe amputated from right foot Past Anesthesia/Blood Transfusion Reactions: No Reported Reaction Past Psychological History: Anxiety, Bipolar, Depression, Schizophrenia Additional Psychological History / Comment(s): Pt was on Mental Health 2 years ago at [facility] for suicidal ideation - Not seeing anyone currently Smoking Status: Current every day smoker Past Alcohol Use History: None Reported Additional Past Alcohol Use History / Comment(s): Started smoking at age 15- smoked 1 ppd but has cut down to 1/2 pack a day Past Drug Use History: Marijuana, Prescription Drug Abuse Additional Drug Use History / Comment(s): Pt smokes marijuana daily, and regular cigarrettes daily - Past Family History Father Family Medical History: Myocardial Infarction ([place]) Additional Family Medical History / Comment(s): mi at age 35, still living Mother Family Medical History: Myocardial Infarction ([place]) Additional Family Medical History / Comment(s): Mother has had at least one [place]- pt unsure at what age. He has not had much contact with his mother since he was 17 yrs old. Medications and Allergies Home Medications Medication Instructions Recorded Confirmed Type Nitroglycerin Sl Tabs [Nitrostat] 0.4 mg SL Q5M PRN 06/28/21 05/29/23 History Rivaroxaban [Xarelto] 20 mg PO W/SUPPER 30 Days #30 tab 07/31/21 05/29/23 Rx oxyCODONE-APAP 10-325MG [Percocet 1 tab PO TID PRN 09/11/22 05/29/23 History 10-325 mg] Gabapentin 600 mg PO TID PRN 05/04/23 05/29/23 History Sennosides [Senokot] 8.6 mg PO BID 05/04/23 05/29/23 History amLODIPine [Norvasc] 2.5 mg PO DAILY 05/04/23 05/29/23 History hydrALAZINE HCL [Apresoline] 25 mg PO TID 05/04/23 05/29/23 History lisinopriL [Zestril] 40 mg PO DAILY 05/04/23 05/29/23 History methocarbamoL [Robaxin] 500 mg PO QID 05/04/23 05/29/23 History Cephalexin [Keflex] 500 mg PO QID 05/29/23 05/29/23 History Allergies Allergy/AdvReac Type Severity Reaction Status Date / Time ibuprofen [From Motrin] AdvReac Nausea & Verified 05/29/23 09:58 Vomiting simvastatin [From Zocor] AdvReac Dizziness Verified 05/29/23 09:58 Surgical - Exam Vital Signs Temp Pulse Resp Pulse Ox 97.7 F 75 20 99 05/29/23 07:53 05/29/23 07:53 05/29/23 07:53 05/29/23 07:53 Results - Labs 05/29/23 09:19 05/29/23 09:19 Microbiology - Last 24 Hours (Table) 05/29/23 09:19 Blood Culture - Preliminary Blood 05/29/23 09:19 Blood Culture - Preliminary Blood
[2023-05-30] MEDS: RIVAROXABAN 20 MG TAB PO SCH (18:02)
--- NOTE | 2023-05-30 19:06 | CT ---
EXAMINATION TYPE: CT foot LT w con DATE OF EXAM: 05/30/2023 COMPARISON: 05/29/2023 x-ray HISTORY: R/O osteomyelitis/rule out abscess. Recent 2nd digit amputation in early April of 2023. CT DLP: 334.8 mGycm Automated exposure control for dose reduction was used. Contrast: None Technique: Axial images 2 mm thick sections. Reconstructed images in the coronal and sagittal planes. FINDINGS: There is amputation of the second digit. There is amputation of the middle and distal phalanx of the third digit. There is lucency extending through the inferior distal third metatarsal. This could be a fracture. Co uld be a pathologic fracture secondary to osteomyelitis. There is mild increased density adjacent to the cortex of the metadiaphyseal third metacarpal. Second metatarsal and fourth metatarsal appear intact. There is diffuse increased signal within subcutaneous tissues at the foot and ankle. Some increased s ignals along the soft tissues of the dorsum of the foot. IMPRESSION: 1. FINDINGS SUSPICIOUS FOR OSTEOMYELITIS AND/OR FRACTURE AT THE DISTAL THIRD METATARSAL. 2. SOME MILD DIFFUSE SOFT TISSUE SWELLING..
[2023-05-31] MEDS: HYDROmorphone 0.5 MG/0.5 ML SYRINGE IVP PRN ×4 (03:42→20:59)
[2023-05-31] MEDS: PIPERACILLIN-TAZOBACTAM 3.375 GM in SODIUM CHLORIDE 0.9% 100 ML IVPB SCH ×3 (03:43→19:24)
--- NOTE | 2023-05-31 05:28 | HP ---
HISTORY AND PHYSICAL CHIEF COMPLAINT: Pain, swelling, redness, and infection in the distal left foot. HISTORY OF PRESENT ILLNESS: Another of many admissions for this noncompliant 52-year-old gentleman with a long- standing history of COPD, atherosclerotic cardiovascular disease, coronary artery disease, congestive heart failure and peripheral vascular problems. He was in the ER recently with recurrent infection in the distal left foot where he recently has had some toes removed and refused admission. Then he came to the office today prior to being admitted this time and, again, refused to go to the hospital. Then he came in on the . The distal foot is once again swollen, erythematous, and there was oozing at the base of the 2nd toe, which was recently removed. He has had no chills or fever. Review of systems, otherwise unremarkable. PAST MEDICAL HISTORY, FAMILY HISTORY, PERSONAL AND SOCIAL HISTORIES: Also noncontributory. PHYSICAL EXAMINATION: VITAL SIGNS: Blood pressure is 163/102 with a pulse of 79, respirations of 36, and he is afebrile. GENERAL: He appeared to be in no acute distress. HEENT: Head, ears, eyes, nose, mouth and throat were normal. CHEST: Clear. CARDIAC: Normal. ABDOMEN: Soft, nontender. EXTREMITIES: Normal except for the left foot. IMPRESSION: 1. Cellulitis, abscess and possible osteomyelitis of the distal left foot. 2. Coronary artery disease. 3. Chronic obstructive pulmonary disease. 4. Congestive heart failure. PLAN: 1. Bed rest. 2. IV fluids. 3. IV antibiotics. 4. Vascular surgery consult. MMODL / IJN: [id number] /
[2023-05-31] MEDS: lisinopriL 20 MG TAB PO SCH (07:26)
[2023-05-31] MEDS: methocarbamoL 500 MG TAB PO SCH ×4 (07:26→21:00)
[2023-05-31] MEDS: SENNOSIDES 8.6 MG TAB PO SCH ×2 (07:26→20:04)
[2023-05-31] MEDS: hydrALAZINE HCL 25 MG TAB PO SCH ×3 (07:26→21:00)
[2023-05-31] MEDS: amLODIPine 2.5 MG TAB PO SCH (07:26)
[2023-05-31] MEDS: oxyCODONE-APAP 10-325MG 1 EACH TAB PO PRN ×2 (07:27→16:54)
[2023-05-31] MEDS ORDERED: VANCOMYCIN TROUGH DUE 1 EACH MISC MISCELLANE ONE (09:00)
[2023-05-31] MEDS: VANCOMYCIN 1,750 MG in SODIUM CHLORIDE 0.9% 500 ML 500 ML IVPB SCH ×2 (09:18→22:29)
[2023-05-31 10:09] LABS: African American GFR (CKD) >90 (>60 ml/min/1.73 sqM); Non-African American GFR(CKD) >90 (>60 ml/min/1.73 sqM)
--- NOTE | 2023-05-31 14:47 | P.PN ---
Progress Note - Text 52-year-old gentleman well-known to me from the past patient had a second and third toe amputation in the past patient came some redness and swelling of the left lower extremity patient also has some swelling of the left calf area patient is CT scan done which showed possibility of a osteo or fracture of the third metatarsal bone on examination there is no fluctuation noted no discharge noted patient has some swelling of the calf area comparing to the right side we will rule out DVT to the venous ultrasound of the left leg patient on IV antibiotic attic under care of infectious disease patient will be on the long- term antibiotic with infectious disease at this point no surgical intervention needed
--- NOTE | 2023-05-31 16:06 | US ---
EXAMINATION TYPE: US venous doppler duplex LE LT DATE OF EXAM: 05/31/2023 3:43 PM COMPARISON: 08/01/2021 CLINICAL INDICATION: Male, 52 years old with history of rule out DVT; Pain and swelling in LLE x 1 we ek. Two toe amputation in april; Redness to left foot SIDE PERFORMED: Left TECHNIQUE: The lower extremity deep venous system is examined utilizing real time linear array sonog deon with graded compression, doppler sonography and color-flow sonography. VESSELS IMAGED: Common Femoral Vein Deep Femoral Vein Greater Saphenous Vein * Femoral Vein Popliteal Vein Small Saphenous Vein * Proximal Calf Veins (* superficial vessels) Right Leg: NA Left Leg: Negative for DVT Multiple lymph nodes seen within the left groin IMPRESSION: Grayscale, color doppler, spectral doppler imaging performed of the deep veins of the lo wer extremities. There is normal flow, compressibility, vascular waveforms.
[2023-05-31] MEDS: RIVAROXABAN 20 MG TAB PO SCH (16:52)
[2023-05-31] MEDS: GABAPENTIN 300 MG CAP PO PRN (17:12)
[2023-06-01] MEDS: oxyCODONE-APAP 10-325MG 1 EACH TAB PO PRN ×2 (00:33→11:34)
[2023-06-01] MEDS: HYDROmorphone 0.5 MG/0.5 ML SYRINGE IVP PRN ×3 (03:17→14:30)
[2023-06-01] MEDS: PIPERACILLIN-TAZOBACTAM 3.375 GM in SODIUM CHLORIDE 0.9% 100 ML IVPB SCH ×2 (03:18→12:46)
[2023-06-01] MEDS: GABAPENTIN 300 MG CAP PO PRN (03:18)
[2023-06-01 08:36] VITALS: RESP 16
[2023-06-01 08:48] LABS: African American GFR (CKD) >90 (>60 ml/min/1.73 sqM); Non-African American GFR(CKD) >90 (>60 ml/min/1.73 sqM)
[2023-06-01] MEDS: amLODIPine 2.5 MG TAB PO SCH (08:48)
[2023-06-01] MEDS: methocarbamoL 500 MG TAB PO SCH ×2 (08:48→12:46)
[2023-06-01] MEDS: hydrALAZINE HCL 25 MG TAB PO SCH ×2 (08:48→15:22)
[2023-06-01] MEDS: lisinopriL 20 MG TAB PO SCH (08:48)
[2023-06-01] MEDS: SENNOSIDES 8.6 MG TAB PO SCH (08:48)
[2023-06-01] MEDS: VANCOMYCIN 1,750 MG in SODIUM CHLORIDE 0.9% 500 ML 500 ML IVPB SCH (09:26)
--- NOTE | 2023-06-01 09:50 | P.PN ---
Progress Note - Text 52-year-old gentleman patient came to the hospital history of tenderness and redness left foot dorsum aspect appreciated IV Care of infectious disease patient was complaining close discomfort and swelling of the left lower extremity venous ultrasound was negative for DVT. Patient had a CT of the left foot which showed possible fracture of the third metatarsal possible osteo patient on IV antibiotic on examination no fevers chills no localized tenderness noted redness has improved patient had a second and third toe amputation done in the past I see no evidence of local abscess will have opinion from infectious disease CT finding
[2023-06-01 12:48] VITALS: BP 164/91; PULSE 63; TEMP 98.3
[2023-06-01] MEDS ORDERED: VANCOMYCIN 2,000 MG in SODIUM CHLORIDE 0.9% 500 ML 500 ML IVPB SCH (21:00)
--- NOTE | 2023-06-02 18:58 | DS ---
DISCHARGE SUMMARY CHIEF COMPLAINT: Abscess and cellulitis of the left distal foot. HISTORY OF PRESENT ILLNESS AND PHYSICAL EXAMINATION: Details of this man's history and physical can be found in the initial workup. LABORATORY STUDIES: While he is in the hospital, he had laboratory studies, details of which can be found in the laboratory section of his chart. COURSE IN THE HOSPITAL: After admission, he was placed on bedrest, started on intravenous fluids and antibiotics and was seen by Vascular Surgery. Throat was evaluated and it was felt that there was no necessity for increased surgical intervention. Surgery felt he could go home on and he will go home on light activity about the house, as usual diet and medication along with antibiotics, and will follow up with Surgery and in my office as well. FINAL DIAGNOSES: 1. Left distal foot cellulitis and possible abscess and/or osteomyelitis. 2. Coronary artery disease. 3. Congestive heart failure. 4. Chronic obstructive pulmonary disease. OPERATIONS: None. CONSULTATIONS: Surgery. He is improved. MMGURMEET / CINTHYAN: [id number] /
--- NOTE | 2023-06-04 23:28 | PN ---
PROGRESS NOTE DATE OF SERVICE: 05/30/2023 CHIEF COMPLAINT: Cellulitis and osteomyelitis of the left foot. HISTORY OF PRESENT ILLNESS: This gentleman is still on IV fluids and antibiotics and is being seen by surgery. PHYSICAL EXAMINATION: VITAL SIGNS: Blood pressure is high at 173/106. HEENT: Head, ears, eyes, nose, mouth, and throat are normal. CHEST: Clear. CARDIAC: Normal. ABDOMEN: Soft, nontender. EXTREMITIES: The left foot is still swollen and erythematous. IMPRESSION: 1. Cellulitis, abscess and osteomyelitis of the left distal foot. 2. Hypertension. 3. Coronary artery disease. 4. Heart failure. PLAN: Continue management of the foot and await for further recommendation from vascular surgery. MMODL / IJN: [id number] /
--- NOTE | 2023-06-05 00:52 | PN ---
PROGRESS NOTE DATE OF SERVICE: 05/31/2023 CHIEF COMPLAINT: Left foot cellulitis, abscess and possible osteomyelitis. HISTORY OF PRESENT ILLNESS: This gentleman is doing fairly well. He is being followed by surgery. At this point, no further surgery is contemplated. PHYSICAL EXAMINATION: EXTREMITIES: Distal foot is still very red and swollen. There is no drainage. IMPRESSION: Cellulitis, abscess and osteomyelitis of the left distal foot. PLAN: Continue on current program with IV antibiotics and await recommendations from vascular surgery. MMODL / IJN: [id number] /
== END 2023-06-01 18:06 | disposition home or self-care (01) | DRG 344 ==
LOC: EC 07:52 → 5NMEDONC 10:33 → OBSVTOIN 05-31 08:23
PROVIDERS: ADMIT Family Medicine; ATTEND Family Medicine
DX: M86.8X7 Other osteomyelitis, ankle and foot (principal); L03.116 Cellulitis of left lower limb; E78.5 Hyperlipidemia, unspecified; F12.10 Cannabis abuse, uncomplicated; F20.9 Schizophrenia, unspecified; I11.0 Hypertensive heart disease with heart failure; I25.10 Atherosclerotic heart disease of native coronary artery without angina pectoris; I48.91 Unspecified atrial fibrillation; I50.9 Heart failure, unspecified; F41.9 Anxiety disorder, unspecified; L02.612 Cutaneous abscess of left foot; G43.909 Migraine, unspecified, not intractable, without status migrainosus; Z28.311 Partially vaccinated for COVID-19; F17.200 Nicotine dependence, unspecified, uncomplicated; I73.9 Peripheral vascular disease, unspecified; J44.9 Chronic obstructive pulmonary disease, unspecified; Z88.6 Allergy status to analgesic agent; Z87.01 Personal history of pneumonia (recurrent); G89.29 Other chronic pain; M54.50 Low back pain, unspecified; M54.32 Sciatica, left side; M54.31 Sciatica, right side; Z86.14 Personal history of Methicillin resistant Staphylococcus aureus infection; Z87.442 Personal history of urinary calculi; Z91.199 Patient's noncompliance with other medical treatment and regimen due to unspecified reason; Z79.01 Long term (current) use of anticoagulants; Z79.899 Other long term (current) drug therapy; Z82.49 Family history of ischemic heart disease and other diseases of the circulatory system
CPT/HCPCS: 36415; 80053; 80202; 82565; 83605; 85025; 87040; 96365; 96366; 96367; 96375; 96376; 99285

== ENCOUNTER 2023-07-16 10:08 | Emergency (ER) | payer OTHER ==
--- NOTE | 2023-07-16 10:32 | ED ---
Extremity Problem HPI - General Chief complaint: Extremity Problem,Nontraumatic Stated complaint: foot swelling/pain Time Seen by Provider: 07/16/23 10:30 Source: patient, family, RN notes reviewed Mode of arrival: wheelchair Limitations: no limitations - History of Present Illness Initial comments: Patient is a 53-year-old male presented to the ER with a chief complaint of left foot pain. Patient is diabetic and a daily smoker. Patient states he had his second and third toes amputated in April [address] Rudd. He states since then he has been having on and off increasing swelling and pain in his left foot. Patient has followed up with Dr. Stauffer and has been on antibiotics. Patient believes it was doxycycline and ciprofloxacin. He states that he normally takes Percocet for pain control but the pain has been greater. He reports for the last week it has become increasingly more painful and difficult to walk due to pain and swelling. Denies any fevers, chills, night sweats, or injuries. No other complaints at this time. - Related Data Home Medications Medication Instructions Recorded Confirmed Nitroglycerin Sl Tabs [Nitrostat] 0.4 mg SL Q5M PRN 06/28/21 05/29/23 oxyCODONE-APAP 10-325MG [Percocet 1 tab PO TID PRN 09/11/22 05/29/23 10-325 mg] Gabapentin 600 mg PO TID PRN 05/04/23 05/29/23 Sennosides [Senokot] 8.6 mg PO BID 05/04/23 05/29/23 amLODIPine [Norvasc] 2.5 mg PO DAILY 05/04/23 05/29/23 hydrALAZINE HCL [Apresoline] 25 mg PO TID 05/04/23 05/29/23 lisinopriL [Zestril] 40 mg PO DAILY 05/04/23 05/29/23 methocarbamoL [Robaxin] 500 mg PO QID 05/04/23 05/29/23 Cephalexin [Keflex] 500 mg PO QID 05/29/23 05/29/23 Previous Rx's Medication Instructions Recorded Rivaroxaban [Xarelto] 20 mg PO W/SUPPER 30 Days #30 tab 07/31/21 Allergies Allergy/AdvReac Type Severity Reaction Status Date / Time ibuprofen [From Motrin] AdvReac Nausea & Verified 05/29/23 09:58 Vomiting simvastatin [From Zocor] AdvReac Dizziness Verified 05/29/23 09:58 Review of Systems ROS Statement: Those systems with pertinent positive or pertinent negative responses have been documented in the HPI. ROS Other: All systems not noted in ROS Statement are negative. Past Medical History Past Medical History: Atrial Fibrillation, COPD, Hyperlipidemia, Hypertension, Pneumonia Additional Past Medical History / Comment(s): Other HX; Costochondritis, chronic pain, chronic low back pain with bilateral sciatica, neuropathy bilateral hands/feet, migraines, kidney stones, past partial small bowel obstruction. HTN the last 10 yrs Stopped taking meds 5 yrs ago. COPD due to tobacco use History of Any Multi-Drug Resistant Organisms: MRSA Date of last positivie culture/infection: 10/09/22 MDRO Source:: Right Foot Past Surgical History: Heart Catheterization, Orthopedic Surgery Additional Past Surgical History / Comment(s): 03/14/18 Cardiac cath-normal coron lesa, L shoulder rotator cuff repair x2, cervical injection., toe amputation left foot 2nd and 3rd toe and 2nd and 3rd toe amputated from right foot Past Anesthesia/Blood Transfusion Reactions: No Reported Reaction Past Psychological History: Anxiety, Bipolar, Depression, Schizophrenia Smoking Status: Current every day smoker Past Alcohol Use History: None Reported Past Drug Use History: Marijuana, Prescription Drug Abuse - Past Family History Father Family Medical History: Myocardial Infarction (MD) Additional Family Medical History / Comment(s): mi at age 35, still living Mother Family Medical History: Myocardial Infarction (MD) Additional Family Medical History / Comment(s): Mother has had at least one MD- pt unsure at what age. He has not had much contact with his mother since he was 17 yrs old. General Exam Limitations: no limitations General appearance: alert, in no apparent distress Head exam: Present: atraumatic, normocephalic, normal inspection Eye exam: Present: normal appearance, PERRL, EOMI. Absent: scleral icterus, conjunctival injection, periorbital swelling Respiratory exam: Present: normal lung sounds bilaterally. Absent: respiratory distress, wheezes, rales, rhonchi, stridor Cardiovascular Exam: Present: regular rate, normal rhythm, normal heart sounds. Absent: systolic murmur, diastolic murmur, rubs, gallop, clicks Extremities exam: Present: other (Left foot nonpitting edema and erythema. 1-2+ dorsalis pedis pulse left. Second and third toes left missing. Callus to great toe. Sensation intact.) Neurological exam: Present: alert, oriented X3, CN II-XII intact Psychiatric exam: Present: normal affect, normal mood Skin exam: Present: warm, dry, intact, normal color. Absent: rash Course Vital Signs 07/16/23 07/16/23 07/16/23 10:17 11:00 12:43 Temperature 98.2 F 98.1 F 98.1 F Pulse Rate 79 74 77 Respiratory 16 18 18 Rate Blood Pressure 184/84 179/80 177/81 O2 Sat by Pulse 99 97 97 Oximetry Medical Decision Making - Medical Decision Making Was pt. sent in by a medical professional or institution (, PA, COIL MAKER, urgent care, hospital, or fci...) When possible be specific @ -No Did you speak to anyone other than the patient for history (EMS, parent, family, police, friend...)? What history was obtained from this source @ -Family providing HPI and past medical history Did you review nursing and triage notes (agree or disagree)? Why? @ -I reviewed and agree with nursing and triage notes Were old charts reviewed (outside hosp., previous admission, EMS record, old EKG, old radiological studies, urgent care reports/EKG's, fci records)? Report findings @ -No old charts were reviewed Differential Diagnosis (chest pain, altered mental status, abdominal pain women, abdominal pain men, vaginal bleeding, weakness, fever, dyspnea, syncope, headache, dizziness, GI bleed, back pain, seizure, CVA, palpatations, mental health, musculoskeletal)? @ -Differential Musculoskeletal:Muscular strain, contusion, ligament sprain, fracture, arthritis, septic arthritis, bursitis, cellulitis, muscle spasm, nerve compression, DVT, arterial occlusion, herpes zoster, electrolyte abnormality, tumor.... This is not meant to be in all inclusive list l EKG interpreted by me (3pts min.). @ -None X-rays interpreted by me (1pt min.). @ -Left foot x-ray significant for diffuse soft tissue swelling with no definitive osseous erosions.] CT interpreted by me (1pt min.). @ -None done U/S interpreted by me (1pt. min.). @ -None done What testing was considered but not performed or refused? (CT, X-rays, U/S, labs)? Why? @ -None What meds were considered but not given or refused? Why? @ -None Did you discuss the management of the patient with other professionals (professionals i.e. Dr., PA, COIL MAKER, lab, RT, psych nurse, health and social care teacher, customer service teller, teacher, house officer, registered nurse hh case manager)? Give summary @ -No Was smoking cessation discussed for >3mins.? @ -I discussed smoking cessation for greater than 3 minutes. The risk of smoking were discussed with the patient including but not limited to risks of cancer, stroke, coronary artery disease and COPD. Also discussed with patient were multiple methods of quitting smoking. Lastly we discussed the financial cost of smoking. Was critical care preformed (if so, how long)? @ -No Were there social determinants of health that impacted care today? How? (Homelessness, low income, unemployed, alcoholism, drug addiction, transportati on, low edu. Level, literacy, decrease access to med. care, halfway, rehab)? @ -No Was there de-escalation of care discussed even if they declined (Discuss DNR or withdrawal of care, Hospice)? DNR status @ -No What co-morbidities impacted this encounter? (DM, HTN, Smoking, COPD, CAD, Cancer, CVA, ARF, Chemo, Hep., AIDS, mental health diagnosis, sleep apnea, morbid obesity)? @ -Obese, diabetes, smoker Was patient admitted / discharged? Hospital course, mention meds given and route, prescriptions, significant lab abnormalities, going to OR and other pertinent info. @ -Discharge. Patient is a 53-year-old male presented to ER with a chief complaint of left foot pain and swelling. History and physical exam completed. Vitals stable. Patient no signs of acute distress and nontoxic-appearing. Left lower extremity neurovascular intact. There was nonpitting edema and erythema present similar to right foot. No signs of infection or wounds. Given the patient's history and presentation labs were obtained. Labs obtained unimpressive. WBC 7.3. X-ray negative for acute evidence of osteomyelitis. There is soft tissue edema. Patient received IV fluids, Dilaudid, Zofran with improvement of pain control. Results discussed with patient, all questions answered. I discussed smoking cessation for greater than 3 minutes. The risk of smoking were discussed with the patient including but not limited to risks of cancer, stroke, coronary artery disease and COPD. Also discussed with patient were multiple methods of quitting smoking. Lastly we discussed the financial cost of smoking. It is believed not to be an infectious source due to no white count or fever. Advise close follow-up with PCP and orthopedics if symptoms persist. Referral given. Patient discharged stable condition with follow-up to PCP. Patient expressed understanding and agreement with care plan. Case discussed with ED attending, Dr. Thomas. Undiagnosed new problem with uncertain prognosis? @ -[No Drug Therapy requiring intensive monitoring for toxicity (Heparin, Nitro, Insulin, Cardizem)? @ -No Were any procedures done? @ -No Diagnosis/symptom? @ -Foot pain Acute, or Chronic, or Acute on Chronic? @ -Acute Uncomplicated (without systemic symptoms) or Complicated (systemic symptoms)? @ -Uncomplicated Side effects of treatment? @ -No Exacerbation, Progression, or Severe Exacerbation? @ -No Poses a threat to life or bodily function? How? (Chest pain, USA, MD, pneumonia, PE, COPD, DKA, ARF, appy, cholecystitis, CVA, Diverticulitis, Homicidal, Suicidal, threat to staff... and all critical care pts) @ -No - Lab Data Result diagrams: 07/16/23 10:37 07/16/23 10:37 Lab Results 07/16/23 07/16/23 07/16/23 Range/Units 10:37 10:37 10:37 WBC 7.3 (3.8-10.6) k/uL RBC 4.72 (4.30-5.90) m/uL Hgb 14.4 (13.0-17.5) gm/dL Hct 43.3 (39.0-53.0) % MCV 91.6 (80.0-100.0) fL MCH 30.4 (25.0-35.0) pg MCHC 33.2 (31.0-37.0) g/dL RDW 13.6 (11.5-15.5) % Plt Count 194 (150-450) k/uL MPV 9.1 Neutrophils % 70 % Lymphocytes % 15 % Monocytes % 8 % Eosinophils % 5 % Basophils % 1 % Neutrophils # 5.1 (1.3-7.7) k/uL Lymphocytes # 1.1 (1.0-4.8) k/uL Monocytes # 0.6 (0-1.0) k/uL Eosinophils # 0.4 (0-0.7) k/uL Basophils # 0.0 (0-0.2) k/uL Sodium 140 (137-145) mmol/L Potassium 4.6 (3.5-5.1) mmol/L Chloride 108 H (98-107) mmol/L Carbon Dioxide 21 L (22-30) mmol/L Anion Gap 11 mmol/L BUN 19 (9-20) mg/dL Creatinine 0.64 L (0.66-1.25) mg/dL Est GFR (CKD-EPI)AfAm >90 (>60 ml/min/1.73 sqM) Est GFR (CKD-EPI)NonAf >90 (>60 ml/min/1.73 sqM) Glucose 82 (74-99) mg/dL Plasma Lactic Acid George 1.5 (0.7-2.0) mmol/L Calcium 8.8 (8.4-10.2) mg/dL Total Bilirubin 1.0 (0.2-1.3) mg/dL AST 61 H (17-59) U/L ALT 21 (4-49) U/L Alkaline Phosphatase 133 H (38-126) U/L Total Protein 8.5 H (6.3-8.2) g/dL Albumin 4.7 (3.5-5.0) g/dL - Radiology Data Radiology results: report reviewed, image reviewed Disposition Clinical Impression: Foot pain Disposition: HOME SELF-CARE Condition: Stable Instructions (If sedation given, give patient instructions): How to Stop Smoking (ED) Additional Instructions: Please follow-up with orthopedics if symptoms persist. Return to the ER for any new or worsening symptoms. Is patient prescribed a controlled substance at d/c from ED?: No Referrals: Clif Glasgow MD [Primary Care Provider] - 1-2 days Chon Magana DO [Doctor of Osteopathic Medicine] - 1-2 days Time of Disposition: 12:17
[2023-07-16 11:11] LABS: Basophils % (A) 1 %; Eosinophils # (A) 0.4 k/uL (0-0.7); Eosinophils % (A) 5 %; HCT 43.3 % (39.0-53.0); HGB 14.4 gm/dL (13.0-17.5); Lymphocytes # (A) 1.1 k/uL (1.0-4.8); Lymphocytes % (A) 15 %; MCH 30.4 pg (25.0-35.0); MCHC 33.2 g/dL (31.0-37.0); MCV 91.6 fL (80.0-100.0); Mean Platelet Volume 9.1; Monocytes # (A) 0.6 k/uL (0-1.0); Monocytes % (A) 8 %; Neutrophils # (A) 5.1 k/uL (1.3-7.7); Neutrophils % (A) 70 %; Platelet Count 194 k/uL (150-450); RBC 4.72 m/uL (4.30-5.90); RDW 13.6 % (11.5-15.5); WBC 7.3 k/uL (3.8-10.6)
[2023-07-16] MEDS: SODIUM CHLORIDE 0.9% 1,000 ML IV STA (11:21)
[2023-07-16] MEDS: ONDANSETRON 4 MG/2 ML VIAL IVP STA (11:22)
[2023-07-16] MEDS: HYDROmorphone 0.5 MG/0.5 ML SYRINGE IVP STA ×2 (11:23→12:32)
[2023-07-16 11:25] LABS: ALT 21 U/L (4-49); African American GFR (CKD) >90 (>60 ml/min/1.73 sqM); Albumin 4.7 g/dL (3.5-5.0); Anion Gap 11 mmol/L; Blood Urea Nitrogen 19 mg/dL (9-20); Carbon Dioxide 21 mmol/L (22-30); Chloride 108 mmol/L (98-107); Glucose 82 mg/dL (74-99); Non-African American GFR(CKD) >90 (>60 ml/min/1.73 sqM); Sodium 140 mmol/L (137-145)
[2023-07-16 11:27] LABS: AST 61 U/L (17-59); Alkaline Phosphatase 133 U/L (38-126); Calcium 8.8 mg/dL (8.4-10.2); Potassium 4.6 mmol/L (3.5-5.1); Total Protein 8.5 g/dL (6.3-8.2)
--- NOTE | 2023-07-16 11:57 | XR ---
EXAMINATION TYPE: XR foot complete LT DATE OF EXAM: 07/16/2023 11:39 AM CLINICAL INDICATION:Male, 53 years old with history of swelling and pain s/p amputation; [facility] COMPARISON: 05/29/2023 TECHNIQUE: XR foot complete LT examined in the AP, oblique, and lateral projections. FINDINGS/IMPRESSION: Diffuse soft tissue swelling, no definitive osseous erosion at this time. If this concern for osteomy eliabdi consider nuclear medicine three-phase bone scan versus MRI foot without contrast.
[2023-07-16 12:57] VITALS: BP 177/81; PULSE 77; RESP 18; TEMP 98.1
== END 2023-07-16 23:19 | disposition home or self-care (01) ==
LOC: EC 10:08
DX: M79.672 Pain in left foot (principal); R60.0 Localized edema; E11.40 Type 2 diabetes mellitus with diabetic neuropathy, unspecified; I10 Essential (primary) hypertension; E78.5 Hyperlipidemia, unspecified; I48.91 Unspecified atrial fibrillation; J44.9 Chronic obstructive pulmonary disease, unspecified; F41.9 Anxiety disorder, unspecified; F31.9 Bipolar disorder, unspecified; F20.9 Schizophrenia, unspecified; E66.9 Obesity, unspecified; F17.210 Nicotine dependence, cigarettes, uncomplicated; F19.10 Other psychoactive substance abuse, uncomplicated; F12.90 Cannabis use, unspecified, uncomplicated; Z79.899 Other long term (current) drug therapy; Z88.6 Allergy status to analgesic agent; Z88.8 Allergy status to other drugs, medicaments and biological substances; Z68.35 Body mass index [BMI] 35.0-35.9, adult
CPT/HCPCS: 99284; 99406; 96374; 96375; 96376; 96361; 36415; 80053; 83605; 85025; 73630; J2405; J1170

== ENCOUNTER 2024-05-30 13:37 | Emergency (ER) | payer OTHER ==
[2024-05-30 13:57] VITALS: BP 174/96; PULSE 80; RESP 20; TEMP 98.1
--- NOTE | 2024-05-30 15:26 | ED ---
General Adult HPI - General Chief complaint: Skin/Abscess/Foreign Body Stated complaint: Poss gangrene right foot Time Seen by Provider: 05/30/24 15:25 Source: patient, family (), RN notes reviewed Mode of arrival: ambulatory Limitations: no limitations - History of Present Illness Initial comments: 53-year-old male presented to ER for evaluation of right foot wound. Patient states he has had numerous amputations in the past these were completed by . Patient reports for the past couple of days he has noted black spots on his right great toe, ball of his foot and toenail. Patient is concerned of possible gangrene as he has had this in the past leading him to amputations. Patient denies any injuries or traumas. He states he has been taking prescribed Percocet for pain control at home. He denies any fevers or chills. He has not followed up with podiatry but has followed up with Dr. Long in the past. He has no other complaints at this time. - Related Data Home Medications Medication Instructions Recorded Confirmed Nitroglycerin Sl Tabs [Nitrostat] 0.4 mg SL Q5M PRN 06/28/21 05/29/23 oxyCODONE-APAP 10-325MG [Percocet 1 tab PO TID PRN 09/11/22 05/29/23 10-325 mg] Gabapentin 600 mg PO TID PRN 05/04/23 05/29/23 Sennosides [Senokot] 8.6 mg PO BID 05/04/23 05/29/23 amLODIPine [Norvasc] 2.5 mg PO DAILY 05/04/23 05/29/23 hydrALAZINE HCL [Apresoline] 25 mg PO TID 05/04/23 05/29/23 lisinopriL [Zestril] 40 mg PO DAILY 05/04/23 05/29/23 methocarbamoL [Robaxin] 500 mg PO QID 05/04/23 05/29/23 Cephalexin [Keflex] 500 mg PO QID 05/29/23 05/29/23 Previous Rx's Medication Instructions Recorded Rivaroxaban [Xarelto] 20 mg PO W/SUPPER 30 Days #30 tab 07/31/21 Cephalexin [Keflex] 500 mg PO Q6HR #40 cap 05/30/24 Allergies Allergy/AdvReac Type Severity Reaction Status Date / Time ibuprofen [From Motrin] AdvReac Nausea & Verified 05/30/24 13:54 Vomiting simvastatin [From Zocor] AdvReac Dizziness Verified 05/30/24 13:54 Review of Systems ROS Statement: Those systems with pertinent positive or pertinent negative responses have been documented in the HPI. ROS Other: All systems not noted in ROS Statement are negative. Past Medical History Past Medical History: Atrial Fibrillation, COPD, Hyperlipidemia, Hypertension, Pneumonia Additional Past Medical History / Comment(s): Other HX; Costochondritis, chronic pain, chronic low back pain with bilateral sciatica, neuropathy bilateral hands/feet, migraines, kidney stones, past partial small bowel obstruction. HTN the last 10 yrs Stopped taking meds 5 yrs ago. 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 and 2nd and 3rd toe amputated from right foot Past Anesthesia/Blood Transfusion Reactions: No Reported Reaction Past Psychological History: Anxiety, Bipolar, Depression, Schizophrenia Smoking Status: Current every day smoker Past Alcohol Use History: None Reported Past Drug Use History: Marijuana, Prescription Drug Abuse - Past Family History Father Family Medical History: Myocardial Infarction ([place]) Additional Family Medical History / Comment(s): mi at age 35, still living Mother Family Medical History: Myocardial Infarction ([place]) Additional Family Medical History / Comment(s): Mother has had at least one [place]- pt unsure at what age. He has not had much contact with his mother since he was 17 yrs old. General Exam Limitations: no limitations General appearance: alert, in no apparent distress Respiratory exam: Present: normal lung sounds bilaterally. Absent: respiratory distress, wheezes, rales, rhonchi, stridor Cardiovascular Exam: Present: regular rate, normal rhythm, normal heart sounds. Absent: systolic murmur, diastolic murmur, rubs, gallop, clicks Extremities exam: Present: full ROM, normal capillary refill (2+ bilateral DP and PT pulse.), other Neurological exam: Present: alert, oriented X3, CN II-XII intact Skin exam: Present: warm, dry, intact, normal color, other (Callus noted to right medial metatarsal head and ball of right foot. There is minimal black discoloration to ball of foot.). Absent: rash Course Vital Signs 05/30/24 13:54 Temperature 98.1 F Pulse Rate 80 Respiratory 20 Rate Blood Pressure 174/96 O2 Sat by Pulse 98 Oximetry Medical Decision Making - Medical Decision Making Was pt. sent in by a medical professional or institution (, PA, STRAIGHTENING PRESS OPERATOR HELPER, urgent care, hospital, or alf...) When possible be specific @ -No Did you speak to anyone other than the patient for history (EMS, parent, family, police, friend...)? What history was obtained from this source @ -No Did you review nursing and triage notes (agree or disagree)? Why? @ -I reviewed and agree with nursing and triage notes Were old charts reviewed (outside hosp., previous admission, EMS record, old EKG, old radiological studies, urgent care reports/EKG's, alf records)? Report findings @ -No old charts were reviewed Differential Diagnosis (chest pain, altered mental status, abdominal pain women, abdominal pain men, vaginal bleeding, weakness, fever, dyspnea, syncope, headache, dizziness, GI bleed, back pain, seizure, CVA, palpatations, mental health, musculoskeletal)? @ -Differential Musculoskeletal: Muscular strain, contusion, ligament sprain, fracture, arthritis, septic arthritis, bursitis, cellulitis, muscle spasm, nerve compression, DVT, arterial occlusion, herpes zoster, electrolyte abnormality, tumor.... This is not meant to be in all inclusive list EKG interpreted by me (3pts min.). @ -None done X-rays interpreted by me (1pt min.). @ -None done CT interpreted by me (1pt min.). @ -None done U/S interpreted by me (1pt. min.). @ -None done What testing was considered but not performed or refused? (CT, X-rays, U/S, labs)? Why? @ -X-rays considered but not performed as there is no focal bony tenderness or acute injuries noted. Patient is agreeable. What meds were considered but not given or refused? Why? @ -Patient refused Tylenol Did you discuss the management of the patient with other professionals (professionals i.e. DrIrene, PA, STRAIGHTENING PRESS OPERATOR HELPER, lab, RT, psych nurse, healthcare social worker, duty officer, teacher, chief commercial officer, nurse case manager)? Give summary @ -No Was smoking cessation discussed for >3mins.? @ -I discussed smoking cessation for greater than 3 minutes. The risk of smoking were discussed with the patient including but not limited to risks of cancer, stroke, coronary artery disease and COPD. Also discussed with patient were multiple methods of quitting smoking. Lastly we discussed the financial cost of smoking. Was critical care preformed (if so, how long)? @ -No Were there social determinants of health that impacted care today? How? (Homelessness, low income, unemployed, alcoholism, drug addiction, transportation, low edu. Level, literacy, decrease access to med. care, alf, rehab)? @ -No Was there de-escalation of care discussed even if they declined (Discuss DNR or withdrawal of care, Hospice)? DNR status @ -No What co-morbidities impacted this encounter? (DM, HTN, Smoking, COPD, CAD, Cancer, CVA, ARF, Chemo, Hep., AIDS, mental health diagnosis, sleep apnea, morbid obesity)? @ -None Was patient admitted / discharged? Hospital course, mention meds given and route, prescriptions, significant lab abnormalities, going to OR and other pert inent info. @ -Discharge. 54-year-old male presented the ER for evaluation of right foot discomfort. History and physical exam completed. Vitals within acceptable limits. Patient is neurovascularly intact. There are calluses noted to right foot. No evidence of infection. Given patient's past medical history Keflex prescribed for infection prophylaxis. Patient refused Tylenol. I instructed him to follow-up closely with podiatry, referral given. Patient stable for discharge. Strict return parameters discussed. Patient discharged in stable condition with follow-up to PCP. Patient verbally expressed understanding and agreement with care plan. Case discussed with ED attending, Dr. Vargas. Undiagnosed new problem with uncertain prognosis? @ -No Drug Therapy requiring intensive monitoring for toxicity (Heparin, Nitro, Insulin, Cardizem)? @ -No Were any procedures done? @ -No Diagnosis/symptom? @ -Callus/foot pain Acute, or Chronic, or Acute on Chronic? @ -Acute Uncomplicated (without systemic symptoms) or Complicated (systemic symptoms)? @ -Uncomplicated Side effects of treatment? @ -No Exacerbation, Progression, or Severe Exacerbation? @ -No Poses a threat to life or bodily function? How? (Chest pain, [place], [place], pneumonia, PE, COPD, DKA, ARF, appy, cholecystitis, CVA, Diverticulitis, Homicidal, Suicidal, threat to staff... and all critical care pts) @ -No Disposition Clinical Impression: Callus, Foot pain Disposition: HOME SELF-CARE Condition: Stable Additional Instructions: Follow-up closely with podiatry. Return to the ER for any new or worsening concerns. Prescriptions: Cephalexin [Keflex] 500 mg PO Q6HR #40 cap Is patient prescribed a controlled substance at d/c from ED?: No Referrals: Clif Glasgow MD [Primary Care Provider] - 1-2 days Rhona Long DPM [STAFF PHYSICIAN] - 1-2 days Time of Disposition: 15:26
[2024-05-30] MEDS: ACETAMINOPHEN TAB 325 MG TAB PO STA (15:49)
== END 2024-05-30 15:53 | disposition home or self-care (01) ==
LOC: EC 13:37
DX: M79.671 Pain in right foot (principal); L84 Corns and callosities; F17.200 Nicotine dependence, unspecified, uncomplicated; Z88.6 Allergy status to analgesic agent; Z88.8 Allergy status to other drugs, medicaments and biological substances
CPT/HCPCS: 99282; 99406

== ENCOUNTER 2024-06-06 14:17 | Emergency (ER) | payer OTHER ==
--- NOTE | 2024-06-06 14:45 | ED ---
General Adult HPI - General Chief complaint: Upper Respiratory Infection Stated complaint: Cough,Congestion Time Seen by Provider: 06/06/24 14:22 Source: patient, RN notes reviewed Mode of arrival: ambulatory Limitations: no limitations - History of Present Illness Initial comments: This is a 54-year-old male with a history of COPD, hypertension, coronary artery disease who is presenting to the emergency room with URI symptoms. He states that over the past 2 days he has been experiencing bodyaches, cough, congestion, rhinorrhea. States that his has been experiencing similar symptoms. He endorses a mid chest pain as well. Denies history of DVT, PE, recent prolonged travel, recent surgeries, hemoptysis. - Related Data Home Medications Medication Instructions Recorded Confirmed Nitroglycerin Sl Tabs [Nitrostat] 0.4 mg SL Q5M PRN 06/28/21 05/29/23 oxyCODONE-APAP 10-325MG [Percocet 1 tab PO TID PRN 09/11/22 05/29/23 10-325 mg] Gabapentin 600 mg PO TID PRN 05/04/23 05/29/23 Sennosides [Senokot] 8.6 mg PO BID 05/04/23 05/29/23 amLODIPine [Norvasc] 2.5 mg PO DAILY 05/04/23 05/29/23 hydrALAZINE HCL [Apresoline] 25 mg PO TID 05/04/23 05/29/23 lisinopriL [Zestril] 40 mg PO DAILY 05/04/23 05/29/23 methocarbamoL [Robaxin] 500 mg PO QID 05/04/23 05/29/23 Cephalexin [Keflex] 500 mg PO QID 05/29/23 05/29/23 Previous Rx's Medication Instructions Recorded Rivaroxaban [Xarelto] 20 mg PO W/SUPPER 30 Days #30 tab 07/31/21 Cephalexin [Keflex] 500 mg PO Q6HR #40 cap 05/30/24 Allergies Allergy/AdvReac Type Severity Reaction Status Date / Time ibuprofen [From Motrin] AdvReac Nausea & Verified 06/06/24 14:32 Vomiting simvastatin [From Zocor] AdvReac Dizziness Verified 06/06/24 14:32 Review of Systems ROS Statement: Those systems with pertinent positive or pertinent negative responses have been documented in the HPI. ROS Other: All systems not noted in ROS Statement are negative. Past Medical History Past Medical History: Atrial Fibrillation, COPD, Hyperlipidemia, Hypertension, P neumonia Additional Past Medical History / Comment(s): Other HX; Costochondritis, chronic pain, chronic low back pain with bilateral sciatica, neuropathy bilateral hands/feet, migraines, kidney stones, past partial small bowel obstruction. HTN the last 10 yrs Stopped taking meds 5 yrs ago. 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 and 2nd and 3rd toe amputated from right foot Past Anesthesia/Blood Transfusion Reactions: No Reported Reaction Past Psychological History: Anxiety, Bipolar, Depression, Schizophrenia Smoking Status: Current every day smoker Past Alcohol Use History: None Reported Past Drug Use History: Marijuana, Prescription Drug Abuse - Past Family History Father Family Medical History: Myocardial Infarction ([place]) Additional Family Medical History / Comment(s): mi at age 35, still living Mother Family Medical History: Myocardial Infarction ([place]) Additional Family Medical History / Comment(s): Mother has had at least one [place]- pt unsure at what age. He has not had much contact with his mother since he was 17 yrs old. General Exam Limitations: no limitations General appearance: alert, in no apparent distress Neck exam: Present: normal inspection. Absent: tenderness, meningismus, lymphadenopathy Respiratory exam: Present: normal lung sounds bilaterally. Absent: respiratory distress, wheezes, rales, rhonchi, stridor Cardiovascular Exam: Present: regular rate, normal rhythm, normal heart sounds. Absent: systolic murmur, diastolic murmur, rubs, gallop, clicks GI/Abdominal exam: Present: soft, normal bowel sounds. Absent: distended, tenderness, guarding, rebound, rigid Extremities exam: Present: normal inspection, full ROM, normal capillary refill. Absent: tenderness, pedal edema, joint swelling, calf tenderness Back exam: Present: normal inspection Skin exam: Present: warm, dry, intact, normal color. Absent: rash Course Vital Signs 06/06/24 06/06/24 06/06/24 14:30 15:30 16:00 Temperature 98.6 F Pulse Rate 70 57 L 75 Respiratory 18 16 15 Rate Blood Pressure 175/113 170/103 186/118 O2 Sat by Pulse 98 98 98 Oximetry Medical Decision Making - Medical Decision Making Was pt. sent in by a medical professional or institution (, MELLISA, LAST SORTER, urgent care, hospital, or skilled nursing...) When possible be specific @ -No Did you speak to anyone other than the patient for history (EMS, parent, family, police, friend...)? What history was obtained from this source @ -No Did you review nursing and triage notes (agree or disagree)? Why? @ -I reviewed and agree with nursing and triage notes Were old charts reviewed (outside hosp., previous admission, EMS record, old EKG, old radiological studies, urgent care reports/EKG's, skilled nursing records)? Report findings @ -No old charts were reviewed Differential Diagnosis (chest pain, altered mental status, abdominal pain women, abdominal pain men, vaginal bleeding, weakness, fever, dyspnea, syncope, headache, dizziness, GI bleed, back pain, seizure, CVA, palpatations, mental health, musculoskeletal)? @ -COVID 19, RSV, influenza, pneumonia, acute bronchitis, URI, this list is not all inclusive EKG interpreted by me (3pts min.). @ -Completed at 1445 ectopic atrial rhythm with a ventricular to 70, ND interval 167, QRS 84, QTc 422. X-rays interpreted by me (1pt min.). @ -Chest x-ray no acute cardiopulmonary process or disease CT interpreted by me (1pt min.). @ -None done U/S interpreted by me (1pt. min.). @ -None done What testing was considered but not performed or refused? (CT, X-rays, U/S, labs)? Why? @ -None What meds were considered but not given or refused? Why? @ -None Did you discuss the management of the patient with other professionals (professionals i.e. MELLISA Baxter, LAST SORTER, lab, RT, psych nurse, antisqueak worker, interior design professor, teacher, youth liaison officer, welfare case worker)? Give summary @ -No Was smoking cessation discussed for >3mins.? @ -No Was critical care preformed (if so, how long)? @ -No Were there social determinants of health that impacted care today? How? (Homelessness, low income, unemployed, alcoholism, drug addiction, transportation, low edu. Level, literacy, decrease access to med. care, senior care, rehab)? @ -No Was there de-escalation of care discussed even if they declined (Discuss DNR or withdrawal of care, Hospice)? DNR status @ -No What co-morbidities impacted this encounter? (DM, HTN, Smoking, COPD, CAD, Cancer, CVA, ARF, Chemo, Hep., AIDS, mental health diagnosis, sleep apnea, morbid obesity)? @ -None Was patient admitted / discharged? Hospital course, mention meds given and route, prescriptions, significant lab abnormalities, going to OR and other pertinent info. @ -Discharge. 54 male presenting with URI symptoms. He is provided with dose of pain medication for chronic back pain and will undergo chest pain workup. Chest x-ray is unremarkable. Lab testing markable for mildly low white blood cell count of 3.5. Patient is tested positive for influenza A. Troponin nonelevated less than 0.012. Supportive treatment discussed at bedside. Patient has been hypertensive on arrival as prior with dose of metoprolol prior to discharge. Case discussed with Dr. Fountain Undiagnosed new problem with uncertain prognosis? @ -No Drug Therapy requiring intensive monitoring for toxicity (Heparin, Nitro, Insulin, Cardizem)? @ -No Were any procedures done? @ -No Diagnosis/symptom? @ -Influenza A Acute, or Chronic, or Acute on Chronic? @ -Acute Uncomplicated (without systemic symptoms) or Complicated (systemic symptoms)? @ -Uncomplicated Side effects of treatment? @ -No Exacerbation, Progression, or Severe Exacerbation? @ -No Poses a threat to life or bodily function? How? (Chest pain, [place], [place], pneumonia, PE, COPD, DKA, ARF, appy, cholecystitis, CVA, Diverticulitis, Homicidal, Suicidal, threat to staff... and all critical care pts) @ -No - Lab Data Result diagrams: 06/06/24 15:08 06/06/24 15:08 Lab Results 06/06/24 06/06/24 06/06/24 Range/Units 15:08 15:08 15:08 WBC 3.5 L (3.8-10.6) k/uL RBC 5.06 (4.30-5.90) m/uL Hgb 15.7 (13.0-17.5) gm/dL Hct 45.1 (39.0-53.0) % MCV 89.0 (80.0-100.0) fL MCH 31.0 (25.0-35.0) pg MCHC 34.8 (31.0-37.0) g/dL RDW 13.5 (11.5-15.5) % Plt Count 129 L (150-450) k/uL MPV 9.3 Neutrophils % 59 % Lymphocytes % 21 % Monocytes % 16 % Eosinophils % 2 % Basophils % 1 % Neutrophils # 2.1 (1.3-7.7) k/uL Lymphocytes # 0.7 L (1.0-4.8) k/uL Monocytes # 0.6 (0-1.0) k/uL Eosinophils # 0.1 (0-0.7) k/uL Basophils # 0.0 (0-0.2) k/uL PT 10.7 (10.0-12.5) sec INR 1.0 (<1.2) APTT 20.1 L (22.0-30.0) sec Sodium 136 L (137-145) mmol/L Potassium 4.3 (3.5-5.1) mmol/L Chloride 101 (98-107) mmol/L Carbon Dioxide 24 (22-30) mmol/L Anion Gap 11 mmol/L BUN 9 (9-20) mg/dL Creatinine 0.77 (0.66-1.25) mg/dL Est GFR (CKD-EPI)AfAm >90 (>60 ml/min/1.73 sqM) Est GFR (CKD-EPI)NonAf >90 (>60 ml/min/1.73 sqM) Glucose 88 (74-99) mg/dL Calcium 8.7 (8.4-10.2) mg/dL Magnesium 1.9 (1.6-2.3) mg/dL Total Bilirubin 0.6 (0.2-1.3) mg/dL AST 35 (17-59) U/L ALT 18 (4-49) U/L Alkaline Phosphatase 86 (38-126) U/L Troponin I (0.000-0.034) ng/mL NT-Pro-B Natriuret Pep 112 pg/mL Total Protein 7.6 (6.3-8.2) g/dL Albumin 4.2 (3.5-5.0) g/dL Influenza Type A (PCR) (Not Detectd) Influenza Type B (PCR) (Not Detectd) RSV (PCR) (Not Detectd) SARS-CoV-2 (PCR) (Not Detectd) 06/06/24 06/06/24 Range/Units 15:08 15:08 WBC (3.8-10.6) k/uL RBC (4.30-5.90) m/uL Hgb (13.0-17.5) gm/dL Hct (39.0-53.0) % MCV (80.0-100.0) fL MCH (25.0-35.0) pg MCHC (31.0-37.0) g/dL RDW (11.5-15.5) % Plt Count (150-450) k/uL MPV Neutrophils % % Lymphocytes % % Monocytes % % Eosinophils % % Basophils % % Neutrophils # (1.3-7.7) k/uL Lymphocytes # (1.0-4.8) k/uL Monocytes # (0-1.0) k/uL Eosinophils # (0-0.7) k/uL Basophils # (0-0.2) k/uL PT (10.0-12.5) sec INR (<1.2) APTT (22.0-30.0) sec Sodium (137-145) mmol/L Potassium (3.5-5.1) mmol/L Chloride (98-107) mmol/L Carbon Dioxide (22-30) mmol/L Anion Gap mmol/L BUN (9-20) mg/dL Creatinine (0.66-1.25) mg/dL Est GFR (CKD-EPI)AfAm (>60 ml/min/1.73 sqM) Est GFR (CKD-EPI)NonAf (>60 ml/min/1.73 sqM) Glucose (74-99) mg/dL Calcium (8.4-10.2) mg/dL Magnesium (1.6-2.3) mg/dL Total Bilirubin (0.2-1.3) mg/dL AST (17-59) U/L ALT (4-49) U/L Alkaline Phosphatase (38-126) U/L Troponin I <0.012 (0.000-0.034) ng/mL NT-Pro-B Natriuret Pep pg/mL Total Protein (6.3-8.2) g/dL Albumin (3.5-5.0) g/dL Influenza Type A (PCR) Detected A (Not Detectd) Influenza Type B (PCR) Not Detected (Not Detectd) RSV (PCR) Not Detected (Not Detectd) SARS-CoV-2 (PCR) Not Detected (Not Detectd) Disposition Clinical Impression: Influenza A Disposition: HOME SELF-CARE Condition: Good Instructions (If sedation given, give patient instructions): Influenza (ED) Additional Instructions: Please return to the Emergency Department if symptoms worsen or any other concer ns. Is patient prescribed a controlled substance at d/c from ED?: No Referrals: Clif Glasgow MD [Primary Care Provider] - 1-2 days Time of Disposition: 16:23
[2024-06-06 15:28] LABS: ALT 18 U/L (4-49); AST 35 U/L (17-59); African American GFR (CKD) >90 (>60 ml/min/1.73 sqM); Albumin 4.2 g/dL (3.5-5.0); Alkaline Phosphatase 86 U/L (38-126); Anion Gap 11 mmol/L; Blood Urea Nitrogen 9 mg/dL (9-20); Calcium 8.7 mg/dL (8.4-10.2); Carbon Dioxide 24 mmol/L (22-30); Chloride 101 mmol/L (98-107); Glucose 88 mg/dL (74-99); Magnesium 1.9 mg/dL (1.6-2.3); Non-African American GFR(CKD) >90 (>60 ml/min/1.73 sqM); Potassium 4.3 mmol/L (3.5-5.1); Sodium 136 mmol/L (137-145); Total Bilirubin 0.6 mg/dL (0.2-1.3); Total Protein 7.6 g/dL (6.3-8.2)
[2024-06-06] MEDS: MORPHINE SULFATE 4 MG/ML SYRINGE IVP STA (15:28)
--- NOTE | 2024-06-06 15:28 | XR ---
EXAMINATION TYPE: XR chest 2V DATE OF EXAM: 06/06/2024 3:22 PM COMPARISON: Previous chest radiograph 06/18/2022.Z CLINICAL INDICATION: Male, 54 years old with history of cough, congestion, ANA M; [facility] TECHNIQUE: XR chest 2V Frontal and lateral views of the chest. FINDINGS: Lungs/Pleura: There is no evidence of pleural effusion, focal consolidation, or pneumothorax. Pulmonary vascularity: Unremarkable. Heart/mediastinum: Cardiomediastinal silhouette is unremarkable. Musculoskeletal: No acute osseous pathology. Other findings: None IMPRESSION: No acute cardiopulmonary disease/process. [facility], , 06/06/2024 3:26 PM
[2024-06-06 15:29] LABS: Basophils % (A) 1 %; Eosinophils # (A) 0.1 k/uL (0-0.7); Eosinophils % (A) 2 %; HCT 45.1 % (39.0-53.0); HGB 15.7 gm/dL (13.0-17.5); Lymphocytes # (A) 0.7 k/uL (1.0-4.8); Lymphocytes % (A) 21 %; MCHC 34.8 g/dL (31.0-37.0); Mean Platelet Volume 9.3; Monocytes # (A) 0.6 k/uL (0-1.0); Monocytes % (A) 16 %; Neutrophils # (A) 2.1 k/uL (1.3-7.7); Neutrophils % (A) 59 %; Platelet Count 129 k/uL (150-450); RBC 5.06 m/uL (4.30-5.90); RDW 13.5 % (11.5-15.5); WBC 3.5 k/uL (3.8-10.6)
[2024-06-06 15:33] LABS: Prothrombin Time 10.7 sec (10.0-12.5)
[2024-06-06 15:36] LABS: NT-Pro-B-Type Natriuretic Pept 112 pg/mL
[2024-06-06 15:37] LABS: Partial Thromboplastin Time 20.1 sec (22.0-30.0)
[2024-06-06 15:50] LABS: Influenza A Detected (Not Detectd); Influenza B Not Detected (Not Detectd); RSV Not Detected (Not Detectd)
[2024-06-06] MEDS: METOPROLOL TARTRATE 5 MG/5 ML VIAL IVP STA (16:13)
[2024-06-06 16:27] VITALS: PULSE 75
[2024-06-06 17:03] VITALS: BP 175/100; RESP 22; TEMP 98.9
== END 2024-06-06 17:03 | disposition home or self-care (01) ==
LOC: EC 14:17
DX: J10.1 Influenza due to other identified influenza virus with other respiratory manifestations (principal); D72.829 Elevated white blood cell count, unspecified; F17.200 Nicotine dependence, unspecified, uncomplicated; Z88.6 Allergy status to analgesic agent; Z88.8 Allergy status to other drugs, medicaments and biological substances
CPT/HCPCS: 36415; 93005; 83880; 80053; 83735; 84484; 85025; 85610; 85730; 87636; 71046; 99284; 96374; 96375; J2270

== ENCOUNTER 2024-07-24 20:26 | Emergency (ER) | payer OTHER ==
--- NOTE | 2024-07-24 22:27 | ED ---
General Adult HPI - General Chief complaint: Extremity Problem,Nontraumatic Stated complaint: L Foot Pain Time Seen by Provider: 07/24/24 20:51 Source: patient Mode of arrival: ambulatory - History of Present Illness Initial comments: Dictation was produced using [employer] dictation software. please excuse any grammatical, word or spelling errors. Chief Complaint: 54-year-old male presents with left foot pain History of Present Illness: Patient is a 54-year-old male with acute on chronic left foot pain. Patient has history of severe deviation to his left great toe exacerbated by second and third toe amputation. Patient complaining of pain at the medial metatarsal joint. Denies any fever chills or night sweats. No drainage. Patient has chronic pressure from footwear. The ROS documented in this emergency department record has been reviewed and confirmed by me. Those systems with pertinent positive or negative responses have been documented in the HPI. All other systems are other negative and/or noncontributory. - Related Data Home Medications Medication Instructions Recorded Confirmed Nitroglycerin Sl Tabs [Nitrostat] 0.4 mg SL Q5M PRN 06/28/21 05/29/23 oxyCODONE-APAP 10-325MG [Percocet 1 tab PO TID PRN 09/11/22 05/29/23 10-325 mg] Gabapentin 600 mg PO TID PRN 05/04/23 05/29/23 Sennosides [Senokot] 8.6 mg PO BID 05/04/23 05/29/23 amLODIPine [Norvasc] 2.5 mg PO DAILY 05/04/23 05/29/23 hydrALAZINE HCL [Apresoline] 25 mg PO TID 05/04/23 05/29/23 lisinopriL [Zestril] 40 mg PO DAILY 05/04/23 05/29/23 methocarbamoL [Robaxin] 500 mg PO QID 05/04/23 05/29/23 Cephalexin [Keflex] 500 mg PO QID 05/29/23 05/29/23 Previous Rx's Medication Instructions Recorded Rivaroxaban [Xarelto] 20 mg PO W/SUPPER 30 Days #30 tab 07/31/21 Cephalexin [Keflex] 500 mg PO Q6HR #40 cap 05/30/24 Allergies Allergy/AdvReac Type Severity Reaction Status Date / Time ibuprofen [From Motrin] AdvReac Nausea & Verified 07/24/24 20:39 Vomiting simvastatin [From Zocor] AdvReac Dizziness Verified 07/24/24 20:39 Review of Systems ROS Statement: Those systems with pertinent positive or pertinent negative responses have been documented in the HPI. ROS Other: All systems not noted in ROS Statement are negative. Past Medical History Past Medical History: Atrial Fibrillation, COPD, Hyperlipidemia, Hypertension, Pneumonia Additional Past Medical History / Comment(s): Other HX; Costochondritis, chronic pain, chronic low back pain with bilateral sciatica, neuropathy bilateral hands/feet, migraines, kidney stones, past partial small bowel obstruction. HTN the last 10 yrs Stopped taking meds 5 yrs ago. 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 and 2nd and 3rd toe amputated from right foot Past Anesthesia/Blood Transfusion Reactions: No Reported Reaction Past Psychological History: Anxiety, Bipolar, Depression, Schizophrenia Smoking Status: Current every day smoker Past Alcohol Use History: None Reported Past Drug Use History: Marijuana, Prescription Drug Abuse - Past Family History Father Family Medical History: Myocardial Infarction ([place]) Additional Family Medical History / Comment(s): mi at age 35, still living Mother Family Medical History: Myocardial Infarction ([place]) Additional Family Medical History / Comment(s): Mother has had at least one UT- pt unsure at what age. He has not had much contact with his mother since he was 17 yrs old. General Exam - General Exam Comments Initial Comments: General: Well-appearing, nontoxic, no acute distress. Head: Normocephalic, atraumatic Eyes: PERRLA, EOMI ENT: Airway patent Chest: Nonlabored breathing Skin: No visual rash, normal skin tone Neuro: Alert and oriented 3 Musculoskeletal: No gross abnormalities Left foot: Lateral deviation of the left great toe with small pressure ulcer Course Vital Signs 07/24/24 20:36 Temperature 98.0 F Pulse Rate 112 H Respiratory 20 Rate Blood Pressure 197/111 O2 Sat by Pulse 96 Oximetry Medical Decision Making - Medical Decision Making Was pt. sent in by a medical professional or institution (, PA, [employer], urgent care, hospital, or [facility]...) When possible be specific @ -No Did you speak to anyone other than the patient for history (EMS, parent, family, police, friend...)? What history was obtained from this source @ -No Did you review nursing and triage notes (agree or disagree)? Why? @ -I reviewed and agree with nursing and triage notes Were old charts reviewed (outside hosp., previous admission, EMS record, old EKG, old radiological studies, urgent care reports/EKG's, [facility] records)? Report findings @ -No old charts were reviewed Differential Diagnosis (chest pain, altered mental status, abdominal pain women, abdominal pain men, vaginal bleeding, musculoskeletal, weakness, fever, dyspnea, syncope, headache, dizziness, GI bleed, back pain, seizure, CVA, palpatations, mental health)? @ -Gout, pressure ulcer, toe strain EKG interpreted by me (3pts min.). @ -None done X-rays interpreted by me (1pt min.). @ -Left foot x-ray shows no acute processes CT interpreted by me (1pt min.). @ -None done U/S interpreted by me (1pt. min.). @ -None done What testing was considered but not performed or refused? (CT, X-rays, U/S, labs)? Why? @ -None What meds were considered but not given or refused? Why? @ -None Was smoking cessation discussed for >3mins.? @ -No Were there social determinants of health that impacted care today? How? (Homelessness, low income, unemployed, alcoholism, drug addiction, transportation, low edu. Level, literacy, decrease access to med. care, [facility], rehab)? @ -No Was there de-escalation of care discussed even if they declined (Discuss DNR or withdrawal of care, Hospice)? DNR status @ -No What co-morbidities impacted this encounter? (DM, HTN, Smoking, COPD, CAD, Cancer, CVA, ARF, Chemo, Hep., AIDS, mental health diagnosis, sleep apnea, morbid obesity)? @ -None Was patient admitted / discharged? Hospital course, mention meds given and route, prescriptions, significant lab abnormalities, going to OR and other pertinent info. @ -4-year-old male with acute on chronic left foot pain. No concern for infection. Vital signs stable. Patient has a pressure sore to his left MTP joint. X-ray nonacute. Patient given IM analgesics. Will be discharged advised follow-up with inner diameter grinder tool. Did you discuss the management of the patient with other professionals (professionals i.e. , PA, [employer], lab, RT, psych nurse, social work assistant, quantometer operator, teacher, commissary officer, binder caser)? Give summary @ -No Was critical care preformed (if so, how long)? @ -No Undiagnosed new problem with uncertain prognosis? @ -No Drug Therapy requiring intensive monitoring for toxicity (Heparin, Nitro, Insulin, Cardizem)? @ -No Were any procedures done? @ -No Diagnosis/symptom? Acute, or Chronic, or Acute on Chronic? Uncomplicated (without systemic symptoms) or Complicated (systemic symptoms)? @ -Left foot pain Side effects of treatment? @ -No Exacerbation, Progression, or Severe Exacerbation? @ -No Poses a threat to life or bodily function? How? (Chest pain, USA, [place], pneumonia, PE, COPD, DKA, ARF, appy, cholecystitis, CVA, Diverticulitis, Homicidal, Suicidal, threat to staff... and all critical care pts) @ -No Disposition Clinical Impression: Foot pain Disposition: HOME SELF-CARE Condition: Fair Instructions (If sedation given, give patient instructions): Metatarsalgia (DC) Is patient prescribed a controlled substance at d/c from ED?: No Referrals: Clif Glasgow MD [Primary Care Provider] - 1-2 days Rhona Long DPM [STAFF PHYSICIAN] - 1-2 days Time of Disposition: 22:27
[2024-07-24] MEDS: HYDROmorphone 1 MG/ML 1 ML SYRINGE IM STA (22:51)
[2024-07-24 23:02] VITALS: BP 161/95; PULSE 90; RESP 17; TEMP 99.2
--- NOTE | 2024-07-25 00:36 | XR ---
EXAM: XR Left Foot Complete, 3 Views CLINICAL HISTORY: pt presents with c/o L foot pain x2 days. H/O toe amputation left foot 2nd and 3rd toe and 2nd and 3rd toe amputated from right foot TECHNIQUE: Frontal, lateral and oblique views of the left foot. COMPARISON: 07/16/2023. FINDINGS: Bones/joints: Amputation of second toe at the level of metatarsophalangeal joint. Amputation of third toe at the level of head of proximal phalanx. Moderate osteoarthritic changes predominantly involving interphalangeal joints. Severe valgus deviation of great toe at metatarsal phalangeal joint with associated 12 mm lateral subluxation, slightly worse than on the prior study. Small posterior calcaneal spur. No acute fracture or dislocation. Soft tissues: Unremarkable. No radiopaque foreign body. IMPRESSION: severe valgus deviation of great toe at metatarsal phalangeal joint with associated 12 mm lateral subluxation, slightly worse than on the prior study.
== END 2024-07-24 23:08 | disposition home or self-care (01) ==
LOC: EC 20:26
DX: M79.672 Pain in left foot (principal); F17.200 Nicotine dependence, unspecified, uncomplicated; Z88.6 Allergy status to analgesic agent
CPT/HCPCS: 73630; 99283; 96372; J1171

== ENCOUNTER 2024-08-20 12:34 | Emergency (ER) | payer OTHER ==
[2024-08-20 12:49] VITALS: TEMP 97.8
--- NOTE | 2024-08-20 13:30 | ED ---
General Adult HPI - General Chief complaint: Extremity Problem,Nontraumatic Stated complaint: Lele feet pain Time Seen by Provider: 08/20/24 12:50 Source: patient Mode of arrival: ambulatory Limitations: no limitations - History of Present Illness Initial comments: Dictation was produced using [employer] dictation software. please excuse any grammatical, word or spelling errors. Chief Complaint: 54-year-old male presents to the emergency department for ma lodorous foot wound History of Present Illness: Patient is 54-year-old male who/primary care doctor yesterday was seen in the office and told to come to the ER for admission. Patient has chronic wounds to his bilateral feet. He has history of amputation. Patient states for the last several days he has been having midfoot pain to the right foot. Notices that this is chronic worsening of his right MTP joint. Fever chills or night sweats The ROS documented in this emergency department record has been reviewed and confirmed by me. Those systems with pertinent positive or negative responses have been documented in the HPI. All other systems are other negative and/or noncontributory. - Related Data Home Medications Medication Instructions Recorded Confirmed Nitroglycerin Sl Tabs [Nitrostat] 0.4 mg SL Q5M PRN 06/28/21 08/20/24 Gabapentin 600 mg PO TID 05/04/23 08/20/24 ARIPiprazole [Abilify] 10 mg PO DAILY 08/20/24 08/20/24 Aspirin EC [Ecotrin Low Dose] 81 mg PO DAILY 08/20/24 08/20/24 Ergocalciferol (Vitamin D2) 1,250 mcg PO Q30D 08/20/24 08/20/24 [Drisdol (50,000 Iu)] Escitalopram [Lexapro] 10 mg PO DAILY 08/20/24 08/20/24 Furosemide [Lasix] 40 mg PO DAILY 08/20/24 08/20/24 Metoprolol Succinate (ER) [Toprol 100 mg PO DAILY 08/20/24 08/20/24 Xl] Rivaroxaban [Xarelto] 20 mg PO DAILY 08/20/24 08/20/24 amLODIPine 10 mg PO DAILY 08/20/24 08/20/24 cloNIDine HCL [Catapres] 0.2 mg PO HS 08/20/24 08/20/24 lisinopriL [Zestril] 20 mg PO DAILY 08/20/24 08/20/24 Previous Rx's Medication Instructions Recorded Clindamycin [Cleocin] 450 mg PO Q8H 5 Days #45 cap 08/20/24 Allergies Allergy/AdvReac Type Severity Reaction Status Date / Time ibuprofen [From Motrin] AdvReac Nausea & Verified 08/20/24 13:32 Vomiting simvastatin [From Zocor] AdvReac Dizziness Verified 08/20/24 13:32 Review of Systems ROS Statement: Those systems with pertinent positive or pertinent negative responses have been documented in the HPI. ROS Other: All systems not noted in ROS Statement are negative. Past Medical History Past Medical History: Atrial Fibrillation, COPD, Hyperlipidemia, Hypertension, Pneumonia Additional Past Medical History / Comment(s): Other HX; Costochondritis, chronic pain, chronic low back pain with bilateral sciatica, neuropathy bilateral hands/feet, migraines, kidney stones, past partial small bowel obstruction. HTN the last 10 yrs Stopped taking meds 5 yrs ago. 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 and 2nd and 3rd toe amputated from right foot Past Anesthesia/Blood Transfusion Reactions: No Reported Reaction Past Psychological History: Anxiety, Bipolar, Depression, Schizophrenia Smoking Status: Current every day smoker Past Alcohol Use History: None Reported Past Drug Use History: Marijuana, Prescription Drug Abuse - Past Family History Father Family Medical History: Myocardial Infarction ([place]) Additional Family Medical History / Comment(s): mi at age 35, still living Mother Family Medical History: Myocardial Infarction ([place]) Additional Family Medical History / Comment(s): Mother has had at least one MA- pt unsure at what age. He has not had much contact with his mother since he was 17 yrs old. General Exam - General Exam Comments Initial Comments: PHYSICAL EXAM: General Impression: Alert and oriented x3, not in acute distress HEENT: Normocephalic atraumatic, extra-ocular movements intact, pupils equal and reactive to light bilaterally, mucous membranes moist. Cardiovascular: Heart regular rate and rhythm Chest: Able to complete full sentences, no retractions, no tachypnea Abdomen: abdomen soft, non-tender, non-distended, no organomegaly Musculoskeletal: Pulses present and equal in all extremities, no peripheral edema Motor: no focal deficits noted Neurological: CN II-XII grossly intact, no focal motor or sensory deficits noted Skin: Intact with no visualized rashes Psych: Normal affect and mood Foot: Chronic appearing erythematous wound to the right MTP. There is severe first toe deviation laterally. Wound appears malodorous. No exposed bone Limitations: no limitations Course Vital Signs 08/20/24 12:46 Temperature 97.8 F Pulse Rate 75 Respiratory 16 Rate Blood Pressure 185/109 O2 Sat by Pulse 98 Oximetry Medical Decision Making - Medical Decision Making Was pt. sent in by a medical professional or institution (, PA, [employer], urgent care, hospital, or [facility]...) When possible be specific @ -No Did you speak to anyone other than the patient for history (EMS, parent, family, police, friend...)? What history was obtained from this source @ -No Did you review nursing and triage notes (agree or disagree)? Why? @ -I reviewed and agree with nursing and triage notes Were old charts reviewed (outside hosp., previous admission, EMS record, old EKG, old radiological studies, urgent care reports/EKG's, [facility] records)? Report findings @ -No old charts were reviewed Differential Diagnosis (chest pain, altered mental status, abdominal pain women, abdominal pain men, vaginal bleeding, musculoskeletal, weakness, fever, dyspnea, syncope, headache, dizziness, GI bleed, back pain, seizure, CVA, palpatations, mental health)? @ -Osteomyelitis, cellulitis, gangrene EKG interpreted by me (3pts min.). @ -None done X-rays interpreted by me (1pt min.). @ -Foot x-ray shows no osteomyelitis CT interpreted by me (1pt min.). @ -None done U/S interpreted by me (1pt. min.). @ -None done What testing was considered but not performed or refused? (CT, X-rays, U/S, labs)? Why? @ -None What meds were considered but not given or refused? Why? @ -None Was smoking cessation discussed for >3mins.? @ -No Were there social determinants of health that impacted care today? How? (Homelessness, low income, unemployed, alcoholism, drug addiction, transportation, low edu. Level, literacy, decrease access to med. care, halfway, rehab)? @ -No Was there de-escalation of care discussed even if they declined (Discuss DNR or withdrawal of care, Hospice)? DNR status @ -No What co-morbidities impacted this encounter? (DM, HTN, Smoking, COPD, CAD, Cancer, CVA, ARF, Chemo, Hep., AIDS, mental health diagnosis, sleep apnea, morbid obesity)? @ -Bunion Was patient admitted / discharged? Hospital course, mention meds given and route, prescriptions, significant lab abnormalities, going to OR and other pertinent info. @ -54-year-old male with malodorous chronic wound. Vital signs stable. Patient afebrile. Laboratory evaluation is unremarkable. CRP is negative. No leukocytosis. X-ray shows no osteomyelitis. Case discussed with Dr. Glasgow who is agreeable with prescription for oral antibiotics follow-up in the office. Did you discuss the management of the patient with other professionals (professionals i.e. , PA, [employer], lab, RT, psych nurse, social media editor, industrial security analyst, teacher, logistics supply officer, manager case management)? Give summary @ -See above Was critical care preformed (if so, how long)? @ -No Undiagnosed new problem with uncertain prognosis? @ -No Drug Therapy requiring intensive monitoring for toxicity (Heparin, Nitro, Insulin, Cardizem)? @ -No Were any procedures done? @ -No Diagnosis/symptom? Acute, or Chronic, or Acute on Chronic? Uncomplicated (wi thout systemic symptoms) or Complicated (systemic symptoms)? @ -Cellulitis Side effects of treatment? @ -No Exacerbation, Progression, or Severe Exacerbation? @ -No Poses a threat to life or bodily function? How? (Chest pain, [place], [place], pneumonia, PE, COPD, DKA, ARF, appy, cholecystitis, CVA, Diverticulitis, Homicidal, Suicidal, threat to staff... and all critical care pts) @ -yes - Lab Data Result diagrams: 08/20/24 13:26 08/20/24 13:26 Lab Results 08/20/24 08/20/24 Range/Units 13:26 13:26 WBC 8.30 (4.50-10.00) 10*3/uL RBC 4.50 (4.40-5.60) 10*6/uL Hgb 14.1 (13.0-17.0) g/dL Hct 38.7 L (39.6-50.0) % MCV 86.0 (80.0-97.0) fL MCH 31.3 (27.0-32.0) pg MCHC 36.4 (32.0-37.0) g/dL Plt Count 215 (140-440) 10*3/uL MPV 10.6 (9.5-12.2) fL Immature Gran % (Auto) 0.2 % Neutrophils % 64.5 % Lymphocytes % 22.9 % Monocytes % 8.7 % Eosinophils % 3.3 % Basophils % 0.4 % Immature Gran # 0.02 (0.00-0.04) 10*3/uL Neutrophils # 5.36 (1.80-7.70) 10*3/uL Lymphocytes # 1.90 (0.90-5.00) 10*3/uL Monocytes # 0.72 (0.20-1.00) 10*3/uL Eosinophils # 0.27 (0.04-0.35) 10*3/uL Basophils # 0.03 (0.00-0.10) 10*3/uL Sodium 138 (137-145) mmol/L Potassium 4.1 (3.5-5.1) mmol/L Chloride 105 (98-107) mmol/L Carbon Dioxide 28 (22-30) mmol/L Anion Gap 5 mmol/L BUN 14 (9-20) mg/dL Creatinine 0.79 (0.66-1.25) mg/dL Est GFR (CKD-EPI)AfAm >90 (>60 ml/min/1.73 sqM) Est GFR (CKD-EPI)NonAf >90 (>60 ml/min/1.73 sqM) Glucose 89 (74-99) mg/dL Calcium 9.1 (8.4-10.2) mg/dL Total Bilirubin 0.4 (0.2-1.3) mg/dL AST 26 (17-59) U/L ALT 17 (4-49) U/L Alkaline Phosphatase 107 (38-126) U/L C-Reactive Protein 0.7 (<1.0) mg/dL Total Protein 7.3 (6.3-8.2) g/dL Albumin 4.0 (3.5-5.0) g/dL Disposition Clinical Impression: Cellulitis Disposition: HOME SELF-CARE Condition: Fair Instructions (If sedation given, give patient instructions): Cellulitis (ED) Prescriptions: Clindamycin [Cleocin] 450 mg PO Q8H 5 Days #45 cap Is patient prescribed a controlled substance at d/c from ED?: No Referrals: Clif Glasgow MD [Primary Care Provider] - 1-2 days Time of Disposition: 15:11
[2024-08-20 13:46] LABS: Basophils # (A) 0.03 10*3/uL (0.00-0.10); Basophils % (A) 0.4 %; Eosinophils # (A) 0.27 10*3/uL (0.04-0.35); Eosinophils % (A) 3.3 %; HCT 38.7 % (39.6-50.0); HGB 14.1 g/dL (13.0-17.0); Lymphocytes % (A) 22.9 %; MCH 31.3 pg (27.0-32.0); MCHC 36.4 g/dL (32.0-37.0); Mean Platelet Volume 10.6 fL (9.5-12.2); Monocytes # (A) 0.72 10*3/uL (0.20-1.00); Monocytes % (A) 8.7 %; Neutrophils # (A) 5.36 10*3/uL (1.80-7.70); Neutrophils % (A) 64.5 %; Platelet Count 215 10*3/uL (140-440); RDW 13.3 % (11.5-14.5)
--- NOTE | 2024-08-20 13:53 | XR ---
EXAMINATION TYPE: XR foot complete RT DATE OF EXAM: 08/20/2024 1:30 PM COMPARISON: 10/09/2022 CLINICAL INDICATION: Male, 54 years old with history of malodorous chronic wound; PHH, pain TECHNIQUE: 3 views FINDINGS: Severe hallux valgus deformity with bunion and moderate underlying first MTP joint OA. There is a chr onic appearing impaction deformity at the fourth metatarsal head. Some deformity has developed involv ing the third metatarsal head in the interval as well favoring now old trauma. By radiograph, no convincing focal bony lytic disc identified. IMPRESSION: Progression to severe hallux valgus deformity with moderate first MTP joint OA. Now chronic appearing posttraumatic impaction deformities have developed at the third and fourth metatarsal heads. Previou s amputations of the second and third toes. No convincing radiographic evidence for osteomyelitis at this time. Follow-up if persistent clinical concern. [facility], Workstation: [facility]ITAL[facility]tonetNAFISA, 08/20/2024 1:51 PM
[2024-08-20 14:00] LABS: ALT 17 U/L (4-49); AST 26 U/L (17-59); African American GFR (CKD) >90 (>60 ml/min/1.73 sqM); Alkaline Phosphatase 107 U/L (38-126); Anion Gap 5 mmol/L; Blood Urea Nitrogen 14 mg/dL (9-20); C Reactive Protein 0.7 mg/dL (<1.0); Calcium 9.1 mg/dL (8.4-10.2); Carbon Dioxide 28 mmol/L (22-30); Chloride 105 mmol/L (98-107); Glucose 89 mg/dL (74-99); Non-African American GFR(CKD) >90 (>60 ml/min/1.73 sqM); Potassium 4.1 mmol/L (3.5-5.1); Sodium 138 mmol/L (137-145); Total Bilirubin 0.4 mg/dL (0.2-1.3); Total Protein 7.3 g/dL (6.3-8.2)
[2024-08-20] MEDS: HYDROmorphone 1 MG/ML 1 ML SYRINGE IVP STA (14:15)
[2024-08-20 15:28] VITALS: BP 158/91; PULSE 61; RESP 18
[2024-08-20 19:41] LABS: Erythrocyte Sedimentation Rate 23 mm/Hr (0-20)
== END 2024-08-20 15:28 | disposition home or self-care (01) ==
LOC: EC 12:34
DX: L03.115 Cellulitis of right lower limb (principal); F17.200 Nicotine dependence, unspecified, uncomplicated; Z88.6 Allergy status to analgesic agent; Z88.8 Allergy status to other drugs, medicaments and biological substances
CPT/HCPCS: 36415; 80053; 85652; 85025; 86140; 73630; 99284; 96374; J1171

== ENCOUNTER 2024-10-19 19:51 | Emergency (ER) | payer OTHER ==
[2024-10-19 19:54] VITALS: TEMP 97.9
--- NOTE | 2024-10-19 20:45 | ED ---
General Adult HPI - General Chief complaint: Extremity Problem,Nontraumatic Stated complaint: Left Foot Pain Time Seen by Provider: 10/19/24 19:58 Source: patient, RN notes reviewed Mode of arrival: wheelchair Limitations: no limitations - History of Present Illness Initial comments: 54-year-old male presents to the emergency department for evaluation of left foot pain. He notes the pain is a shooting pain in the left midfoot. Patient notes that this started today. He denies any trauma to the area. He notes that he has had pain with ambulation. Denies any fever, chills. Denies any numbness or tingling. - Related Data Home Medications Medication Instructions Recorded Confirmed Nitroglycerin Sl Tabs [Nitrostat] 0.4 mg SL Q5M PRN 06/28/21 08/20/24 Gabapentin 600 mg PO TID 05/04/23 08/20/24 ARIPiprazole [Abilify] 10 mg PO DAILY 08/20/24 08/20/24 Aspirin EC [Ecotrin Low Dose] 81 mg PO DAILY 08/20/24 08/20/24 Ergocalciferol (Vitamin D2) 1,250 mcg PO Q30D 08/20/24 08/20/24 [Drisdol (50,000 Iu)] Escitalopram [Lexapro] 10 mg PO DAILY 08/20/24 08/20/24 Furosemide [Lasix] 40 mg PO DAILY 08/20/24 08/20/24 Metoprolol Succinate (ER) [Toprol 100 mg PO DAILY 08/20/24 08/20/24 Xl] Rivaroxaban [Xarelto] 20 mg PO DAILY 08/20/24 08/20/24 amLODIPine 10 mg PO DAILY 08/20/24 08/20/24 cloNIDine HCL [Catapres] 0.2 mg PO HS 08/20/24 08/20/24 lisinopriL [Zestril] 20 mg PO DAILY 08/20/24 08/20/24 Previous Rx's Medication Instructions Recorded Clindamycin [Cleocin] 450 mg PO Q8H 5 Days #45 cap 08/20/24 Allergies Allergy/AdvReac Type Severity Reaction Status Date / Time ibuprofen [From Motrin] AdvReac Nausea & Verified 10/19/24 19:54 Vomiting simvastatin [From Zocor] AdvReac Dizziness Verified 10/19/24 19:54 Review of Systems ROS Statement: Those systems with pertinent positive or pertinent negative responses have been documented in the HPI. ROS Other: All systems not noted in ROS Statement are negative. Past Medical History Past Medical History: Atrial Fibrillation, COPD, Hyperlipidemia, Hypertension, Pneumonia Additional Past Medical History / Comment(s): Other HX; Costochondritis, chronic pain, chronic low back pain with bilateral sciatica, neuropathy bilateral hands/feet, migraines, kidney stones, past partial small bowel obstruction. HTN the last 10 yrs Stopped taking meds 5 yrs ago. 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 and 2nd and 3rd toe amputated from right foot Past Anesthesia/Blood Transfusion Reactions: No Reported Reaction Past Psychological History: Anxiety, Bipolar, Depression, Schizophrenia Smoking Status: Current every day smoker Past Alcohol Use History: None Reported Past Drug Use History: Marijuana, Prescription Drug Abuse - Past Family History Father Family Medical History: Myocardial Infarction ([place]) Additional Family Medical History / Comment(s): mi at age 35, still living Mother Family Medical History: Myocardial Infarction ([place]) Additional Family Medical History / Comment(s): Mother has had at least one CA- pt unsure at what age. He has not had much contact with his mother since he was 17 yrs old. General Exam Limitations: no limitations General appearance: alert, in no apparent distress Head exam: Present: atraumatic, normocephalic, normal inspection Eye exam: Present: normal appearance, PERRL, EOMI. Absent: scleral icterus, conjunctival injection, periorbital swelling Respiratory exam: Present: normal lung sounds bilaterally. Absent: respiratory distress, wheezes, rales, rhonchi, stridor Cardiovascular Exam: Present: regular rate, normal rhythm, normal heart sounds. Absent: systolic murmur, diastolic murmur, rubs, gallop, clicks Extremities exam: Present: full ROM, tenderness (Tenderness to palpation over the left midfoot), normal capillary refill, other (DP and PT pulses 2+). Absent: pedal edema, joint swelling, calf tenderness Neurological exam: Present: alert, oriented X3 Psychiatric exam: Present: normal affect, normal mood Skin exam: Present: warm, dry, intact, normal color, other (Callus present over the first metatarsal of the left foot, DP and PT pulses 2+) Course Vital Signs 10/19/24 10/19/24 19:53 22:11 Temperature 97.9 F Pulse Rate 76 58 L Respiratory 18 20 Rate Blood Pressure 166/90 160/103 O2 Sat by Pulse 98 97 Oximetry Medical Decision Making - Medical Decision Making Was pt. sent in by a medical professional or institution (, PA, SQL DATABASE PROGRAMMER, urgent care, hospital, or retirement...) When possible be specific @ -No Did you speak to anyone other than the patient for history (EMS, parent, family, police, friend...)? What history was obtained from this source @ -No Did you review nursing and triage notes (agree or disagree)? Why? @ -I reviewed and agree with nursing and triage notes Were old charts reviewed (outside hosp., previous admission, EMS record, old EKG, old radiological studies, urgent care reports/EKG's, retirement records)? Report findings @ -No old charts were reviewed Differential Diagnosis (chest pain, altered mental status, abdominal pain women, abdominal pain men, vaginal bleeding, weakness, fever, dyspnea, syncope, headache, dizziness, GI bleed, back pain, seizure, CVA, palpatations, mental health, musculoskeletal)? @ -Differential Musculoskeletal Muscular strain, contusion, ligament sprain, fracture, arthritis, septic arthritis, bursitis, cellulitis, muscle spasm, nerve compression, DVT, arterial occlusion, herpes zoster, electrolyte abnormality, tumor.... This is not meant to be in all inclusive list EKG interpreted by me (3pts min.). @ -None X-rays interpreted by me (1pt min.). @ -X-rays of the left foot revealed no acute process CT interpreted by me (1pt min.). @ -None done U/S interpreted by me (1pt. min.). @ -None done What testing was considered but not performed or refused? (CT, X-rays, U/S, labs)? Why? @ -None What meds were considered but not given or refused? Why? @ -None Did you discuss the management of the patient with other professionals (professionals i.e. DrIrene, PA, SQL DATABASE PROGRAMMER, lab, RT, psych nurse, high school social studies tutor, lime kiln operator, teacher, conservation officer, home health care case manager)? Give summary @ -No Was smoking cessation discussed for >3mins.? @ -No Was critical care preformed (if so, how long)? @ -No Were there social determinants of health that impacted care today? How? (Homelessness, low income, unemployed, alcoholism, drug addiction, transportation, low edu. Level, literacy, decrease access to med. care, correction, rehab)? @ -No Was there de-escalation of care discussed even if they declined (Discuss DNR or withdrawal of care, Hospice)? DNR status @ -No What co-morbidities impacted this encounter? (DM, HTN, Smoking, COPD, CAD, Cancer, CVA, ARF, Chemo, Hep., AIDS, mental health diagnosis, sleep apnea, morbid obesity)? @ -None Was patient admitted / discharged? Hospital course, mention meds given and route, prescriptions, significant lab abnormalities, going to OR and other pertinent info. @ -Discharge. Patient presented emergency department for left foot pain. X- rays of the left foot revealed no evidence of acute process. Patient concerned about wound on his foot there is no visible open wound on the foot. There is callus present to the region over the distal first metatarsal with no evidence of infectious process. Advised symptomatic treatment at this time. He is provided medication for pain control in the emergency department. He will be discharged home. He is understanding agreeable to plan. Patient stable at time of discharge. Case discussed with Dr. Vargas. Undiagnosed new problem with uncertain prognosis? @ -No Drug Therapy requiring intensive monitoring for toxicity (Heparin, Nitro, Insulin, Cardizem)? @ -No Were any procedures done? @ -No Diagnosis/symptom? @ -Foot pain Acute, or Chronic, or Acute on Chronic? @ -Acute Uncomplicated (without systemic symptoms) or Complicated (systemic symptoms)? @ -Uncomplicated Side effects of treatment? @ -No Exacerbation, Progression, or Severe Exacerbation? @ -No Poses a threat to life or bodily function? How? (Chest pain, USA, CA, pneumonia, PE, COPD, DKA, ARF, appy, cholecystitis, CVA, Diverticulitis, Homicidal, Suicidal, threat to staff... and all critical care pts) @ -No Disposition Clinical Impression: Foot pain Disposition: HOME SELF-CARE Condition: Stable Instructions (If sedation given, give patient instructions): Arthralgia (ED) Additional Instructions: Please follow-up with your doctor. Return to the emergency department for new or worsening symptoms. Is patient prescribed a controlled substance at d/c from ED?: No Referrals: Clif Glasgow MD [Primary Care Provider] - 1-2 days
[2024-10-19] MEDS: MORPHINE SULFATE 4 MG/ML SYRINGE IM STA (21:14)
--- NOTE | 2024-10-19 21:40 | XR ---
EXAMINATION TYPE: XR foot complete LT DATE OF EXAM: 10/19/2024 9:24 PM COMPARISON: Multiple prior radiograph, most recently dated 07/24/2024. CLINICAL INDICATION: Male, 54 years old with history of pain; PHH, pain TECHNIQUE: XR foot complete LT examined in the AP, oblique, and lateral projections. FINDINGS: Redemonstration indication at the level of the second metatarsophalangeal joint and third proximal in terphalangeal joint. No definite focal osseous erosion or aggressive periosteal reaction. Tarsometata rsal degenerative arthritis with subchondral cystic changes. Severe valgus deformity of the first dig it MTP joint with associated degenerative osteophytic changes and adjacent soft tissue swelling. Calc aneal enthesophyte near the Achilles tendon insertion site. IMPRESSION: No acute osseous abnormality. [facility], , 10/19/2024 9:38 PM
[2024-10-19 22:13] VITALS: BP 160/103; PULSE 58; RESP 20
== END 2024-10-19 22:13 | disposition home or self-care (01) ==
LOC: EC 19:51
DX: M79.672 Pain in left foot (principal); F17.200 Nicotine dependence, unspecified, uncomplicated; Z88.6 Allergy status to analgesic agent; Z88.8 Allergy status to other drugs, medicaments and biological substances
CPT/HCPCS: 73630; 99283; 96372; J2270

== ENCOUNTER 2024-11-20 17:20 | Emergency (ER) | payer OTHER ==
[2024-11-20 17:30] VITALS: RESP 18; TEMP 98.3
--- NOTE | 2024-11-20 17:47 | ED ---
General Adult HPI - General Chief complaint: Chest Pain Stated complaint: Chest Pains Time Seen by Provider: 11/20/24 17:30 Source: patient, RN notes reviewed, old records reviewed Mode of arrival: wheelchair Limitations: no limitations - History of Present Illness Initial comments: This is a 54-year-old male who presents to the emergency department complaining of chest pain. Patient states he has a history of congestive heart failure. Patient states he has high blood pressure high cholesterol and smokes. Patient states the chest pain started when he woke up this morning and it goes down his right arm into his neck and into his back. Patient states he is also short of breath. Patient states he was sweating on his way end. Patient denies any abdominal pain patient has nausea vomiting diarrhea. - Related Data Home Medications Medication Instructions Recorded Confirmed Nitroglycerin Sl Tabs [Nitrostat] 0.4 mg SL Q5M PRN 06/28/21 11/20/24 Gabapentin 600 mg PO TID 05/04/23 11/20/24 ARIPiprazole [Abilify] 10 mg PO DAILY 08/20/24 11/20/24 Aspirin EC [Ecotrin Low Dose] 81 mg PO DAILY 08/20/24 11/20/24 Ergocalciferol (Vitamin D2) 1,250 mcg PO Q30D 08/20/24 11/20/24 [Drisdol (50,000 Iu)] Escitalopram [Lexapro] 10 mg PO DAILY 08/20/24 11/20/24 Furosemide [Lasix] 40 mg PO DAILY 08/20/24 11/20/24 Metoprolol Succinate (ER) [Toprol 100 mg PO DAILY 08/20/24 11/20/24 Xl] Rivaroxaban [Xarelto] 20 mg PO DAILY 08/20/24 11/20/24 amLODIPine 10 mg PO DAILY 08/20/24 11/20/24 cloNIDine HCL [Catapres] 0.2 mg PO HS 08/20/24 11/20/24 lisinopriL [Zestril] 20 mg PO DAILY 08/20/24 11/20/24 HYDROcodone/APAP 5-325MG [[place] 1 tab PO QID PRN 11/20/24 11/20/24 5-325] Allergies Allergy/AdvReac Type Severity Reaction Status Date / Time ibuprofen [From Motrin] AdvReac Nausea & Verified 11/20/24 18:15 Vomiting simvastatin [From Zocor] AdvReac Dizziness Verified 11/20/24 18:15 Review of Systems ROS Statement: Those systems with pertinent positive or pertinent negative responses have been documented in the HPI. ROS Other: All systems not noted in ROS Statement are negative. Past Medical History Past Medical History: Atrial Fibrillation, COPD, Hyperlipidemia, Hypertension, Pneumonia Additional Past Medical History / Comment(s): Other HX; Costochondritis, chronic pain, chronic low back pain with bilateral sciatica, neuropathy bilateral hands/feet, migraines, kidney stones, past partial small bowel obstruction. HTN the last 10 yrs Stopped taking meds 5 yrs ago. 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 and 2nd and 3rd toe amputated from right foot Past Anesthesia/Blood Transfusion Reactions: No Reported Reaction Past Psychological History: Anxiety, Bipolar, Depression, Schizophrenia Smoking Status: Current every day smoker Past Alcohol Use History: None Reported Past Drug Use History: Marijuana, Prescription Drug Abuse - Past Family History Father Family Medical History: Myocardial Infarction ([place]) Additional Family Medical History / Comment(s): mi at age 35, still living Mother Family Medical History: Myocardial Infarction ([place]) Additional Family Medical History / Comment(s): Mother has had at least one AK- pt unsure at what age. He has not had much contact with his mother since he was 17 yrs old. General Exam - General Exam Comments Initial Comments: GENERAL: Patient is well-developed and well-nourished. Patient is nontoxic and well- hydrated and is in mild distress. ENT: Neck is soft and supple. No significant lymphadenopathy is noted. Oropharynx is clear. Moist mucous membranes. Neck has full range of motion without eliciting any pain. EYES: The sclera were anicteric and conjunctiva were pink and moist. Extraocular movements were intact and pupils were equal round and reactive to light. Eyelids were unremarkable. PULMONARY: Unlabored respirations. Good breath sounds bilaterally. No audible rales rhonchi or wheezing was noted. CARDIOVASCULAR: There is a regular rate and rhythm without any murmurs gallops or rubs. ABDOMEN: Soft and nontender with normal bowel sounds. No palpable organomegaly was noted. There is no palpable pulsatile mass. SKIN: Skin is clear with no lesions or rashes and otherwise unremarkable. NEUROLOGIC: Patient is alert and oriented x3. Cranial nerves II through XII are grossly intact. Motor and sensory are also intact. Normal speech, volume and content. Symmetrical smile. MUSCULOSKELETAL: Normal extremities with adequate strength and full range of motion. No lower extremity swelling or edema. No calf tenderness. LYMPHATICS: No significant lymphadenopathy is noted PSYCHIATRIC: Normal psychiatric evaluation. Limitations: no limitations Course Vital Signs 11/20/24 11/20/24 11/20/24 17:27 18:01 19:01 Temperature 98.3 F Pulse Rate 92 81 77 Respiratory 18 18 18 Rate Blood Pressure 161/94 153/112 152/102 O2 Sat by Pulse 96 96 96 Oximetry Medical Decision Making - Medical Decision Making EKG is interpreted by myself. EKG shows a sinus rhythm at 71 bpm TX 164 QRS is 92 QT interval is 394 QTc is 417. Patient's EKG shows no ST segment elevation or depression. Was pt. sent in by a medical professional or institution (, PA, ARTIST'S MODEL, urgent care, hospital, or detention...) When possible be specific @ -No Did you speak to anyone other than the patient for history (EMS, parent, family, police, friend...)? What history was obtained from this source @ -No Did you review nursing and triage notes (agree or disagree)? Why? @ -I reviewed and agree with nursing and triage notes Were old charts reviewed (outside hosp., previous admission, EMS record, old EKG, old radiological studies, urgent care reports/EKG's, detention records)? Report findings @ -No old charts were reviewed Differential Diagnosis? @ -Differential Chest Pain: Stable Angina, Unstable Angina, STEMI, NSTEMI Aortic Dissection, Pneumothorax, Musculoskeletal, Esophageal Spasm GERD, Cholecystitis, Pancreatitis, Zoster, this is not meant to be an all-inclusive list. EKG interpreted by me (3pts min.). @ -As above X-rays interpreted by me (1pt min.). @ -Chest x-ray shows no acute abnormality CT interpreted by me (1pt min.). @ -None done U/S interpreted by me (1pt. min.). @ -None done What testing was considered but not performed or refused? (CT, X-rays, U/S, labs)? Why? @ -None What meds were considered but not given or refused? Why? @ -None Did you discuss the management of the patient with other professionals (professionals i.e. DrIrene, PA, ARTIST'S MODEL, lab, RT, psych nurse, group social worker, chief clinical dietitian, teacher, aviation ordnance officer, case assistant)? Give summary @ -I spoke with Dr. Glasgow he stated the patient could be admitted but the patient would not be receiving pain medication Was smoking cessation discussed for >3mins.? @ -No Was critical care preformed (if so, how long)? @ -No Were there social determinants of health that impacted care today? How? (Homelessness, low income, unemployed, alcoholism, drug addiction, transportation, low edu. Level, literacy, decrease access to med. care, longterm, rehab)? @ -No Was there de-escalation of care discussed even if they declined (Discuss DNR or withdrawal of care, Hospice)? DNR status @ -No What co-morbidities impacted this encounter? (DM, HTN, Smoking, COPD, CAD, Cancer, CVA, ARF, Chemo, Hep., AIDS, mental health diagnosis, sleep apnea, morbid obesity)? @ -None Was patient admitted / discharged? Hospital course, mention meds given and route, prescriptions, significant lab abnormalities, going to OR and other p ertinent info. 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 @ -No Drug Therapy requiring intensive monitoring for toxicity (Heparin, Nitro, Insulin, Cardizem)? @ -No Were any procedures done? @ -No Diagnosis/symptom? @ -Chest pain Acute, or Chronic, or Acute on Chronic? @ -Acute Uncomplicated (without systemic symptoms) or Complicated (systemic symptoms)? @ -Complicated Side effects of treatment? @ -No Exacerbation, Progression, or Severe Exacerbation? @ -No Poses a threat to life or bodily function? How? (Chest pain, [place], [place], pneumonia, PE, COPD, DKA, ARF, appy, cholecystitis, CVA, Diverticulitis, Homicidal, Suicidal, threat to staff... and all critical care pts) @ -Yes this could be leading to an AK and endorgan dysfunction - Lab Data Result diagrams: 11/20/24 17:47 11/20/24 17:47 Lab Results 11/20/24 11/20/24 11/20/24 Range/Units 17:47 17:47 17:47 WBC 8.26 (4.50-10.00) 10*3/uL RBC 4.59 (4.40-5.60) 10*6/uL Hgb 14.4 (13.0-17.0) g/dL Hct 39.8 (39.6-50.0) % MCV 86.7 (80.0-97.0) fL MCH 31.4 (27.0-32.0) pg MCHC 36.2 (32.0-37.0) g/dL Plt Count 191 (140-440) 10*3/uL MPV 11.5 (9.5-12.2) fL Immature Gran % (Auto) 0.2 % Neutrophils % 60.6 % Lymphocytes % 26.6 % Monocytes % 8.4 % Eosinophils % 3.5 % Basophils % 0.7 % Immature Gran # 0.02 (0.00-0.04) 10*3/uL Neutrophils # 5.00 (1.80-7.70) 10*3/uL Lymphocytes # 2.20 (0.90-5.00) 10*3/uL Monocytes # 0.69 (0.20-1.00) 10*3/uL Eosinophils # 0.29 (0.04-0.35) 10*3/uL Basophils # 0.06 (0.00-0.10) 10*3/uL PT 10.4 (10.0-12.5) sec INR 0.9 (<1.2) APTT 23.2 (22.0-30.0) sec Sodium 139 (137-145) mmol/L Potassium 4.0 (3.5-5.1) mmol/L Chloride 103 (98-107) mmol/L Carbon Dioxide 27 (22-30) mmol/L Anion Gap 9 mmol/L BUN 14 (9-20) mg/dL Creatinine 0.80 (0.66-1.25) mg/dL Est GFR (CKD-EPI)AfAm >90 (>60 ml/min/1.73 sqM) Est GFR (CKD-EPI)NonAf >90 (>60 ml/min/1.73 sqM) Glucose 102 H (74-99) mg/dL Calcium 9.5 (8.4-10.2) mg/dL Magnesium 1.7 (1.6-2.3) mg/dL Total Bilirubin 0.4 (0.2-1.3) mg/dL AST 32 (17-59) U/L ALT 21 (4-49) U/L Alkaline Phosphatase 98 (38-126) U/L Troponin I (0.000-0.034) ng/mL Total Protein 7.4 (6.3-8.2) g/dL Albumin 4.1 (3.5-5.0) g/dL 11/20/24 Range/Units 17:47 WBC (4.50-10.00) 10*3/uL RBC (4.40-5.60) 10*6/uL Hgb (13.0-17.0) g/dL Hct (39.6-50.0) % MCV (80.0-97.0) fL MCH (27.0-32.0) pg MCHC (32.0-37.0) g/dL Plt Count (140-440) 10*3/uL MPV (9.5-12.2) fL Immature Gran % (Auto) % Neutrophils % % Lymphocytes % % Monocytes % % Eosinophils % % Basophils % % Immature Gran # (0.00-0.04) 10*3/uL Neutrophils # (1.80-7.70) 10*3/uL Lymphocytes # (0.90-5.00) 10*3/uL Monocytes # (0.20-1.00) 10*3/uL Eosinophils # (0.04-0.35) 10*3/uL Basophils # (0.00-0.10) 10*3/uL PT (10.0-12.5) sec INR (<1.2) APTT (22.0-30.0) sec Sodium (137-145) mmol/L Potassium (3.5-5.1) mmol/L Chloride (98-107) mmol/L Carbon Dioxide (22-30) mmol/L Anion Gap mmol/L BUN (9-20) mg/dL Creatinine (0.66-1.25) mg/dL Est GFR (CKD-EPI)AfAm (>60 ml/min/1.73 sqM) Est GFR (CKD-EPI)NonAf (>60 ml/min/1.73 sqM) Glucose (74-99) mg/dL Calcium (8.4-10.2) mg/dL Magnesium (1.6-2.3) mg/dL Total Bilirubin (0.2-1.3) mg/dL AST (17-59) U/L ALT (4-49) U/L Alkaline Phosphatase (38-126) U/L Troponin I <0.012 (0.000-0.034) ng/mL Total Protein (6.3-8.2) g/dL Albumin (3.5-5.0) g/dL Disposition Clinical Impression: Chest pain Disposition: LEFT AGAINST MEDICAL ADVICE Referrals: Clif Glasgow MD [Primary Care Provider] - 1-2 days Time of Disposition: 19:45
[2024-11-20] MEDS: NITROGLYCERIN OINT 1 INCH/GM PACKET TOPICAL STA (17:59)
[2024-11-20] MEDS: ASPIRIN 81 MG PO STA (17:59)
[2024-11-20 18:13] LABS: Basophils # (A) 0.06 10*3/uL (0.00-0.10); Basophils % (A) 0.7 %; Eosinophils # (A) 0.29 10*3/uL (0.04-0.35); Eosinophils % (A) 3.5 %; HCT 39.8 % (39.6-50.0); HGB 14.4 g/dL (13.0-17.0); Lymphocytes # (A) 2.20 10*3/uL (0.90-5.00); Lymphocytes % (A) 26.6 %; MCH 31.4 pg (27.0-32.0); MCHC 36.2 g/dL (32.0-37.0); MCV 86.7 fL (80.0-97.0); Monocytes # (A) 0.69 10*3/uL (0.20-1.00); Monocytes % (A) 8.4 %; Neutrophils # (A) 5.00 10*3/uL (1.80-7.70); Neutrophils % (A) 60.6 %; Platelet Count 191 10*3/uL (140-440); RBC 4.59 10*6/uL (4.40-5.60); RDW 13.6 % (11.5-14.5); WBC 8.26 10*3/uL (4.50-10.00)
[2024-11-20 18:26] LABS: INR 0.9 (<1.2); Partial Thromboplastin Time 23.2 sec (22.0-30.0); Prothrombin Time 10.4 sec (10.0-12.5)
[2024-11-20 18:28] LABS: ALT 21 U/L (4-49); AST 32 U/L (17-59); African American GFR (CKD) >90 (>60 ml/min/1.73 sqM); Albumin 4.1 g/dL (3.5-5.0); Alkaline Phosphatase 98 U/L (38-126); Anion Gap 9 mmol/L; Blood Urea Nitrogen 14 mg/dL (9-20); Calcium 9.5 mg/dL (8.4-10.2); Carbon Dioxide 27 mmol/L (22-30); Chloride 103 mmol/L (98-107); Glucose 102 mg/dL (74-99); Magnesium 1.7 mg/dL (1.6-2.3); Non-African American GFR(CKD) >90 (>60 ml/min/1.73 sqM); Potassium 4.0 mmol/L (3.5-5.1); Sodium 139 mmol/L (137-145); Total Protein 7.4 g/dL (6.3-8.2)
--- NOTE | 2024-11-20 18:30 | XR ---
EXAMINATION TYPE: XR chest 2V DATE OF EXAM: 11/20/2024 6:13 PM COMPARISON: Chest radiographs from 06/06/2024 CLINICAL INDICATION: Male, 54 years old with history of Chest Pain; TECHNIQUE: XR chest 2V Frontal and lateral views of the chest. FINDINGS: Lungs/Pleura: There is no evidence of pleural effusion, focal consolidation, or pneumothorax. Pulmonary vascularity: Unremarkable. Heart/mediastinum: Cardiomediastinal silhouette is unremarkable. Musculoskeletal: No acute osseous pathology. Other findings: None IMPRESSION: 1. No acute cardiopulmonary disease process. 2. COPD changes. [facility], , 11/20/2024 6:28 PM
[2024-11-20 20:10] VITALS: BP 128/86; PULSE 78
== END 2024-11-20 20:05 | disposition left against medical advice (07) ==
LOC: EC 17:20
DX: R07.9 Chest pain, unspecified (principal); F17.200 Nicotine dependence, unspecified, uncomplicated; Z88.6 Allergy status to analgesic agent
CPT/HCPCS: 36415; 71046; 80053; 83735; 84484; 85025; 85610; 85730; 93005; 99285